=== PATIENT | female | born 1970 ===

== ENCOUNTER → 2020-08-02 13:46 | Outpatient (BNV) | payer OTHER, SELFPAY | PROVIDERS: PCP Internal Medicine; Visit Provider Internal Medicine Medical Oncology | DX: D80.1 Nonfamilial hypogammaglobulinemia (principal); Z86.711 Personal history of pulmonary embolism; Z79.01 Long term (current) use of anticoagulants; D50.9 Iron deficiency anemia, unspecified | CPT/HCPCS: 99212; 99213; 99214 ==

== ENCOUNTER 2020-08-05 08:59 | Outpatient (REF) | payer OTHER, SELFPAY | END 2020-08-05 09:00 | disposition home or self-care (01) | LOC: HO.MDS 08:59 | PROVIDERS: PCP Internal Medicine; Visit Provider Hospitalist | DX: D80.1 Nonfamilial hypogammaglobulinemia (principal) ==

== ENCOUNTER 2020-08-14 13:05 | Emergency (ER) | payer OTHER, SELFPAY ==
--- NOTE | 2020-08-14 15:29 | XR_ITS ---
EXAMINATION: XR CHEST CLINICAL INFORMATION: Cough COMPARISON: Multiple previous chest x-rays with the last chest x-ray dated 07/14/2020. Chest CTA of 06/14/2020. TECHNIQUE: Frontal view of the chest was obtained. FINDINGS: The cardiomediastinal silhouette is normal. No abnormal tracheal deviation. The lungs are symmetrically well expanded. No focal consolidation, changes of congestion or pleural effusions. No pneumothorax. Regional skeleton is intact. IMPRESSION: No acute pulmonary process.
[2020-08-14 15:54] VITALS: BP 134/71; PULSE 81; RESP 18; TEMP 36.8; O2SAT 100; BMI 37.3
[2020-08-14] MEDS: Albuterol Sulfate (0.083%) 2.5 MG/3 ML VIAL.NEB 5 MG INHALE (16:09)
[2020-08-14] MEDS: methylPREDNISolone Sod Succ/PF 125 MG/2 ML VIAL IVPUSH (16:10)
[2020-08-14 16:20] LABS: MANUAL DIFF FLAG NO
[2020-08-14 16:27] LABS: Basophils Percent Auto 0.5 % (0-2); Eosinophils Absolute Auto 0.2 X10*3/uL (0.0-0.4); Eosinophils Percent Auto 2.8 % (0-4); Hematocrit 37.2 % (37-47); Hemoglobin 10.9 g/dl (12.0-16.0); Imm Gran Abs Auto 0.13 X10*3/uL (0.00-0.03); Imm Gran Pct Auto 1.5 % (0.0-0.4); Lymphocytes Absolute Auto 2.8 X10*3/uL (1.2-4.9); Lymphocytes Percent Auto 32.9 % (20-40); Mean Corpuscular HGB Conc 29.3 g/dl (31.0-35.0); Mean Corpuscular Hemoglobin 24.7 pg (27.0-33.0); Mean Corpuscular Volume 84.4 fL (80-98); Mean Platelet Volume 8.9 fL (9.4-12.3); Monocytes Absolute Auto 0.6 X10*3/uL (0.1-1.2); Monocytes Percent Auto 7.4 % (2-11); Neutrophils Absolute Auto 4.7 X10*3/uL (2.0-8.3); Neutrophils Percent Auto 54.9 % (45-73); Platelet Count 421 X10*3/uL (160-400); Red Blood Count 4.41 X10*6/uL (4.20-5.50); Red Cell Distribution Width 15.9 % (11.0-16.0); White Blood Count 8.5 X10*3/uL (4.8-10.8)
[2020-08-14 16:36] LABS: Partial Thromboplastin Time 34.5 SEC (24.1-38.0)
[2020-08-14 16:37] LABS: D Dimer 351 NG/ML
--- NOTE | 2020-08-14 17:09 | CT_ITS ---
EXAMINATION: CT ANGIOGRAM OF THE CHEST WITH CONTRAST (CT PULMONARY ANGIOGRAM FOR PE) CLINICAL INFORMATION: Reason for Exam SOB/ Elevated D-dimer COMPARISON: Chest CT from 08/14/2020 TECHNIQUE: Prior to contrast administration, noncontrast localization images were obtained. Subsequently, multidetector volumetric imaging was performed from the thoracic inlet to below the diaphragms following the administration of 68 mL Omnipaque 350 intravenous contrast. No contrast reaction reported. Sagittal, coronal, and MIP oblique sagittal reformatted images were obtained on the CT workstation, uploaded to PACS, and reviewed. This CT examination was performed using dose optimization techniques as appropriate, variously including the following: *Automated exposure control *Adjustment of mA and/or kV according to patient size (this includes techniques or standardized protocols for targeted exams where dose is matched to indication/reason for exam; i.e. extremities or head) *Use of iterative reconstruction technique DLP: Total exam dose-length product 417 mGy-cm FINDINGS: LUNGS AND PLEURA: Trachea and central airways are widely patent and normal in caliber. Small, 0.3 cm nodule in the medial right lower lobe is unchanged (image 225, series 8). There is a 0.2 cm calcified pleural-based granuloma of the anterior right upper lobe. No interval development of a suspicious lung nodule, mass, consolidation or pleural effusion. No interstitial disease. QUALITY OF STUDY/CONTRAST BOLUS: Satisfactory. CARDIOVASCULAR: Pulmonary arteries are normal in size. There are nonocclusive embolic filling defects within branches to the anterior and apical segments of the right upper lobe. Peripheral vessels are difficult to evaluate due to mild respiratory motion of images. The heart size is normal. No inward bowing of the interventricular septum. No pericardial effusion. Thoracic aorta is normal; no aneurysm or dissection. MEDIASTINUM/LOWER NECK: Normal. The esophagus has normal wall thickness. The visualized portion of the thyroid gland is normal. No mediastinal mass. LYMPHATICS: No pathologic sized lymph nodes. No axillary or internal mammary lymphadenopathy. Old calcified right hilar and paratracheal lymph nodes. UPPER ABDOMEN: No contrast reflux into the inferior vena cava. 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 There appears to be hepatomegaly and diffuse hepatic steatosis. OSSEOUS STRUCTURES: No acute or suspicious osseous abnormality. IMPRESSION: * There are acute, nonocclusive emboli in the right upper lobe. No evidence of right heart strain. * No acute findings within the lung parenchyma. * Old granulomatous disease. The critical test result was discussed with Jameel Shultz at 6:42 pm on 08/14/2020 and it was ascertained that the content and the importance of the findings was understood at the time of the direct communication.
[2020-08-14 17:14] LABS: B Type Natriuretic Peptide 12 pg/mL (<100); Troponin-I High Sensitivity < 3.5 ng/L (<3.5-17.0)
[2020-08-14] MEDS: guaiFENesin 200 MG/10 ML 10 ML LIQUID PO (18:17)
[2020-08-14] MEDS: ondansetron HCL 4 MG/2 ML VIAL IVPUSH (18:17)
[2020-08-14] MEDS: iohexoL 350 MG/ML 100 ML INFUS..BTL IV (18:24)
--- NOTE | 2020-08-14 18:39 | ED.SOB ---
HPI - SOB/Dyspnea General Chief Complaint: Dyspnea Stated Complaint: asthma Time Seen by Provider: 08/14/20 15:29 Source: patient Mode of arrival: ambulatory Limitations: no limitations History of Present Illness HPI Narrative: this is a 50-year-old female with past medical history that is significant for diabetes, asthma, migraine, obesity status post bariatric surgery, TIA, hypothyroidism, PE presenting today with complaint of States she has history of recurrent asthma/ bronchitis has been having some shortness of breath and chest discomfort for the past couple days with cough. Symptoms usually triggered by weather and is currently on prednisone has been using inhaler without much help. No lower extremity swelling or pain. Related Data Home Medications Medication Instructions Recorded Confirmed cyanocobalamin (vitamin B-12) 2,500 mcg SUBLINGUAL DAILY 08/02/20 08/15/20 [Vitamin B-12] escitalopram oxalate 10 mg PO DAILY 08/02/20 08/15/20 lorazepam 0.5 mg PO DAILY PRN 08/02/20 08/15/20 montelukast 10 mg PO DAILY 08/02/20 08/15/20 prednisone 10 mg PO BID 08/02/20 08/15/20 quetiapine [Seroquel] 300 mg PO DAILY 08/02/20 08/15/20 sucralfate 1 g PO QID 08/02/20 08/15/20 zolpidem [Ambien] 10 mg PO BEDTIME PRN 08/02/20 08/15/20 albuterol sulfate 2.5 mg INHALATION TID 08/15/20 08/15/20 cholecalciferol (vitamin D3) 25 mcg PO DAILY 08/15/20 08/15/20 [Vitamin D3] cyclobenzaprine 5 mg PO TID 08/15/20 08/15/20 diclofenac sodium 75 mg PO BID 08/15/20 08/15/20 dicyclomine 10 mg PO QID PRN 08/15/20 08/15/20 hydrocodone-chlorpheniramine 5 ml PO Q12H 08/15/20 08/15/20 hydroxyzine HCl 25 mg PO QID 08/15/20 08/15/20 Previous Rx's Medication Instructions Recorded Eliquis 10 mg PO BID 7 Days #28 tab 08/14/20 benzonatate [Tessalon Perles] 100 mg PO TID PRN #20 cap 08/16/20 Allergies Allergy/AdvReac Type Severity Reaction Status Date / Time No Known Allergies Allergy Verified 08/16/20 03:50 Review of Systems Review of Systems: Constitutional: No Weight loss, No Fever, No Chills, No Night Sweats, No Fatigue, No Malaise ENT/Mouth: No Hearing loss, No Ear Pain, No Nasal Congestion, No Sinus Pain, No Hoarseness, No sore throat, No Rhinorrhea, No Swallowing Difficulty Eyes: No Eye Pain, No Swelling, No Redness, No Foreign Body, No Discharge, No Vision Changes Cardiovascular: No Chest Pain, No SOB, No Dyspnea on Exertion, No Orthopnea, No Edema, No Palpitations Respiratory: + Cough, No Sputum, + Wheezing, No Smoke Exposure, + Dyspnea with cough fits Gastrointestinal: No Nausea, No Vomiting, No Diarrhea, No Constipation, No abdominal Pain, No Hematochezia, No Melena Genitourinary: no irregular bleeding, No Dysuria, No Urinary Frequency, No Hematuria, No Urinary Incontinence, No Urgency, No Flank Pain, No Urinary Flow Changes, No Hesitancy Musculoskeletal: No joint pain, No Myalgias, No Joint Swelling Skin: No Skin Lesions, No rash Neuro: No Weakness, No Numbness, No Paresthesias, No Loss of Consciousness, No Dizziness, No Headache Psych: No Anxiety/Panic, No Depression, No SI/HI/AH/VH, No Social Issues Heme/Lymph: No Bruising, No Bleeding,No Lymphadenopathy Endocrine: No Polyuria, No Polydipsia, No Temperature Intolerance Yes all other systems are reviewed and are negative FORMERLY [facility], [facility] Past Medical History Attestation statement: The following information was validated with the patient. Medical History (Updated 08/15/20 @ 21:26 by Jameel Shultz NP) Arthritis Asthma Depression Diet-controlled diabetes mellitus Fibromyalgia Hypogammaglobulinemia Hypothyroidism Migraines Pulmonary embolism Sleep apnea TIA (transient ischemic attack) Surgical History (Updated 08/15/20 @ 19:01 by MEGA Guillory) History of bariatric surgery History of cholecystectomy S/P total abdominal hysterectomy Social History Social History Alcohol intake: never Smoking Status: Never smoker Smoked in Last 30 Days: No Use of substances other than those prescribed or required for medical reasons: No Advance Directives: No Advance Directives Information Provided: No service: No Current occupational status: disabled Physical Exam Vital Signs: Vital Signs: Vital Signs Temp Pulse Resp BP Pulse Ox 08/14/20 18:45 98.5 F 94 19 116/88 97 08/14/20 15:54 98.2 F 81 18 134/71 100 Body Mass Index 37.3 Reviewed Const: General: cooperative and healthy appearing; No acute distress or intoxicated appearing Nutritional Appearance: average body habitus Orientation/consciousness: patient oriented x3 HENMT: Head: Yes normal to inspection Ears: hearing grossly normal bilaterally Eyes: General: appearance normal, both eyes and all related structures Visual Yap: normal visual yap by confrontation Neck: Neck: Yes normal visual inspection and No tender Thyroid: Thyroid normal Chest: Chest palpation & inspection: normal inspection of the chest Resp: Auscultation: wheezes ( Bilateral diffuse forced expiratory) Cardio: Jugular venous distension: no JVD Rhythm: regular rhythm GI: Inspection: Yes normal to inspection Percussion: Yes normal to percussion Auscultation: normal bowel sounds : General: Yes no CVA tenderness Back/Spine/Pelvis: Back: no CVA tenderness Skin: General skin exam: no rashes or lesions noted Neuro: General: patient oriented x3 Extrem: General: Yes normal to inspection Course Reevaluation(s) Reevaluation #1: 1840 call from [facility] this time: nonocclusive right upper lobe PE MDM - SOB/Dyspnea MDM Narrative Medical decision making narrative: resting comfortably no acute distress. Feels better after neb Labs overall reassuring. Hemodynamically stable. Out of bed ambulatory status with gait without shortness of breath. Pulse ox 98%. CT of the chest shows there are acute nonocclusive emboli in the right upper lobe no evidence of heart strain. No acute findings within the lung parenchyma. pulmonary embolism severity index score Class I, Very Low Risk: 0-1.6% 30-day mortality in this group- she was on Coumadin the past. Several years ago. Case discussed with hospitalist for recommendations/ potential admission. Given the index score very low recommendation for discharge does not meet admission criteria based on evidence. case discussed with attending doctor and/or agreeable with Ry. Will start her today on this and have close follow-up clear return follow-up instructions provided. Stable for discharge. Differential Diagnosis Differential diagnosis: Likely acute exacerbation of chronic obstructive airways disease, pneumonia, asthma with exacerbation and pulmonary embolism; Unlikely congestive heart failure, pleural effusion, sleep apnea and anemia Medical Records Attestation: I reviewed the patient's medical records. Lab Data Attestation: I reviewed the patient's lab results. Result diagrams: 08/14/20 16:08 08/14/20 17:28 Labs: Lab Results 08/14/20 08/14/20 08/14/20 Range/Units 16:08 16:08 16:08 WBC 8.5 (4.8-10.8) X10*3/uL RBC 4.41 (4.20-5.50) X10*6/uL Hgb 10.9 L (12.0-16.0) g/dl Hct 37.2 (37-47) % MCV 84.4 (80-98) fL MCH 24.7 L (27.0-33.0) pg MCHC 29.3 L (31.0-35.0) g/dl RDW 15.9 (11.0-16.0) % Plt Count 421 H (160-400) X10*3/uL MPV 8.9 L (9.4-12.3) fL Immature Gran % (Auto) 1.5 H (0.0-0.4) % Neut % (Auto) 54.9 (45-73) % Lymph % (Auto) 32.9 (20-40) % [place] % (Auto) 7.4 (2-11) % Eos % (Auto) 2.8 (0-4) % Baso % (Auto) 0.5 (0-2) % Lymph # (Auto) 2.8 (1.2-4.9) X10*3/uL [place] # (Auto) 0.6 (0.1-1.2) X10*3/uL Eos # (Auto) 0.2 (0.0-0.4) X10*3/uL Baso # (Auto) 0.0 (0.0-0.2) X10*3/uL Abs Immat Gran (auto) 0.13 H (0.00-0.03) X10*3/uL Absolute Neuts (auto) 4.7 (2.0-8.3) X10*3/uL Absolute Nucleated RBC 0.000 (0.0-0.012) X10*3/uL Nucleated RBC % (auto) 0.0 (0.0-0.2) /100WBC PT 11.0 (10.8-13.0) SEC INR 0.9 (0.9-1.1) APTT 34.5 (24.1-38.0) SEC D-Dimer 351 NG/ML Sodium Cancelled Potassium Cancelled Chloride Cancelled Carbon Dioxide Cancelled Anion Gap Cancelled BUN Cancelled Creatinine Cancelled Estim Creat Clear Calc Cancelled Estimated GFR Cancelled Random Glucose Cancelled Calcium Cancelled Total Bilirubin Cancelled Direct Bilirubin Cancelled AST Cancelled ALT Cancelled Alkaline Phosphatase Cancelled Troponin I High Sens (<3.5-17.0) ng/L B-Natriuretic Peptide (<100) pg/mL Total Protein Cancelled Albumin Cancelled Coronavirus (PCR) (Negative) COVID-19 PCR 08/14/20 08/14/20 08/14/20 Range/Units 16:08 17:05 17:28 WBC (4.8-10.8) X10*3/uL RBC (4.20-5.50) X10*6/uL Hgb (12.0-16.0) g/dl Hct (37-47) % MCV (80-98) fL MCH (27.0-33.0) pg MCHC (31.0-35.0) g/dl RDW (11.0-16.0) % Plt Count (160-400) X10*3/uL MPV (9.4-12.3) fL Immature Gran % (Auto) (0.0-0.4) % Neut % (Auto) (45-73) % Lymph % (Auto) (20-40) % [place] % (Auto) (2-11) % Eos % (Auto) (0-4) % Baso % (Auto) (0-2) % Lymph # (Auto) (1.2-4.9) X10*3/uL [place] # (Auto) (0.1-1.2) X10*3/uL Eos # (Auto) (0.0-0.4) X10*3/uL Baso # (Auto) (0.0-0.2) X10*3/uL Abs Immat Gran (auto) (0.00-0.03) X10*3/uL Absolute Neuts (auto) (2.0-8.3) X10*3/uL Absolute Nucleated RBC (0.0-0.012) X10*3/uL Nucleated RBC % (auto) (0.0-0.2) /100WBC PT (10.8-13.0) SEC INR (0.9-1.1) APTT (24.1-38.0) SEC D-Dimer NG/ML Sodium 138 Potassium 4.4 Chloride 103 Carbon Dioxide 26 Anion Gap 13 BUN 21 H Creatinine 1.28 Estim Creat Clear Calc 48.8 Estimated GFR 44 Random Glucose 118 H Calcium 8.9 Total Bilirubin < 0.2 Direct Bilirubin AST 15 ALT 13 Alkaline Phosphatase 67 Troponin I High Sens < 3.5 (<3.5-17.0) ng/L B-Natriuretic Peptide 12 (<100) pg/mL Total Protein 6.2 L Albumin 3.5 Coronavirus (PCR) (Negative) COVID-19 PCR Cancelled 08/14/20 08/14/20 Range/Units 17:28 17:33 WBC (4.8-10.8) X10*3/uL RBC (4.20-5.50) X10*6/uL Hgb (12.0-16.0) g/dl Hct (37-47) % MCV (80-98) fL MCH (27.0-33.0) pg MCHC (31.0-35.0) g/dl RDW (11.0-16.0) % Plt Count (160-400) X10*3/uL MPV (9.4-12.3) fL Immature Gran % (Auto) (0.0-0.4) % Neut % (Auto) (45-73) % Lymph % (Auto) (20-40) % [place] % (Auto) (2-11) % Eos % (Auto) (0-4) % Baso % (Auto) (0-2) % Lymph # (Auto) (1.2-4.9) X10*3/uL [place] # (Auto) (0.1-1.2) X10*3/uL Eos # (Auto) (0.0-0.4) X10*3/uL Baso # (Auto) (0.0-0.2) X10*3/uL Abs Immat Gran (auto) (0.00-0.03) X10*3/uL Absolute Neuts (auto) (2.0-8.3) X10*3/uL Absolute Nucleated RBC (0.0-0.012) X10*3/uL Nucleated RBC % (auto) (0.0-0.2) /100WBC PT (10.8-13.0) SEC INR (0.9-1.1) APTT (24.1-38.0) SEC D-Dimer NG/ML Sodium Potassium Chloride Carbon Dioxide Anion Gap BUN Creatinine Estim Creat Clear Calc Estimated GFR Random Glucose Calcium Total Bilirubin < 0.2 Direct Bilirubin < 0.2 AST 14 ALT 14 Alkaline Phosphatase 71 Troponin I High Sens (<3.5-17.0) ng/L B-Natriuretic Peptide (<100) pg/mL Total Protein 6.2 L Albumin 3.5 Coronavirus (PCR) NEGATIVE (Negative) COVID-[address] scan - chest: Radiologist's impression: [place] [address] CT Scan Report Signed Patient: Maye Dye#: [id number] : 1970Acct:[id number] Age/Sex: 50 / FADM Date: 08/14/20 Loc: .ED Attending Dr: Ordering Physician: Jameel Shultz NP Date of Service: 08/14/20 Procedure(s): CT angio chest PE protocol Accession Number(s): [id number] cc: Jameel Shultz NP~ EXAMINATION: CT ANGIOGRAM OF THE CHEST WITH CONTRAST (CT PULMONARY ANGIOGRAM FOR PE) CLINICAL INFORMATION: Reason for Exam SOB/ Elevated D-dimer COMPARISON: Chest CT from 08/14/2020 TECHNIQUE: Prior to contrast administration, noncontrast localization images were obtained. Subsequently, multidetector volumetric imaging was performed from the thoracic inlet to below the diaphragms following the administration of 68 mL Omnipaque 350 intravenous contrast. No contrast reaction reported. Sagittal, coronal, and MIP oblique sagittal reformatted images were obtained on the CT workstation, uploaded to PACS, and reviewed. This CT examination was performed using dose optimization techniques as appropriate, variously including the following: *Automated exposure control *Adjustment of mA and/or kV according to patient size (this includes techniques or standardized protocols for targeted exams where dose is matched to indication/reason for exam; i.e. extremities or head) *Use of iterative reconstruction technique DLP: Total exam dose-length product 417 mGy-cm FINDINGS: LUNGS AND PLEURA: Trachea and central airways are widely patent and normal in caliber. Small, 0.3 cm nodule in the medial right lower lobe is unchanged (image 225, series 8). There is a 0.2 cm calcified pleural-based granuloma of the anterior right upper lobe. No interval development of a suspicious lung nodule, mass, consolidation or pleural effusion. No interstitial disease. QUALITY OF STUDY/CONTRAST BOLUS: Satisfactory. CARDIOVASCULAR: Pulmonary arteries are normal in size. There are nonocclusive embolic filling defects within branches to the anterior and apical segments of the right upper lobe. Peripheral vessels are difficult to evaluate due to mild respiratory motion of images. The heart size is normal. No inward bowing of the interventricular septum. No pericardial effusion. Thoracic aorta is normal; no aneurysm or dissection. MEDIASTINUM/LOWER NECK: Normal. The esophagus has normal wall thickness. The visualized portion of the thyroid gland is normal. No mediastinal mass. LYMPHATICS: No pathologic sized lymph nodes. No axillary or internal mammary lymphadenopathy. Old calcified right hilar and paratracheal lymph nodes. UPPER ABDOMEN: No contrast reflux into the inferior vena cava. 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 There appears to be hepatomegaly and diffuse hepatic steatosis. OSSEOUS STRUCTURES: No acute or suspicious osseous abnormality. IMPRESSION: * There are acute, nonocclusive emboli in the right upper lobe. No evidence of right heart strain. * No acute findings within the lung parenchyma. * Old granulomatous disease. The critical test result was discussed with Jameel Shultz at 6:42 pm on 08/14/2020 and it was ascertained that the content and the importance of the findings was understood at the time of the direct communication. Dictated By:FRANCK SÁNCHEZ MD Signed By:<Electronically signed by FRANCK SÁNCHEZ MD in [place]>08/14/20 1178 DD/ 8204 TD/TT: Rn Palliative Care: PD Chest x-ray: Radiologist's impression: [address] [address] XRay Report Signed Patient: Maye Dye#: [id number] : 1970Acct:[id number] Age/Sex: 50 / FADM Date: 08/14/20 Loc: HO.ED Attending Dr: Ordering Physician: Jameel hSultz NP Date of Service: 08/14/20 Procedure(s): XR chest 1V Accession Number(s): [id number] cc: Jameel Shultz [employer]~ EXAMINATION: XR CHEST CLINICAL INFORMATION: Cough COMPARISON: Multiple previous chest x-rays with the last chest x-ray dated 07/14/2020. Chest CTA of 06/14/2020. TECHNIQUE: Frontal view of the chest was obtained. FINDINGS: The cardiomediastinal silhouette is normal. No abnormal tracheal deviation. The lungs are symmetrically well expanded. No focal consolidation, changes of congestion or pleural effusions. No pneumothorax. Regional skeleton is intact. IMPRESSION: No acute pulmonary process. Dictated By:CHASIDY BARTON MD Signed By:<Electronically signed by CHASIDY BARTON MD in OV>08/14/20 1547 DD/ 1529 TD/TT: Rn Palliative Care: AP Discharge Plan Discharge Clinical Impression: Pulmonary embolism, Bronchitis Patient Disposition: Home, Self-Care Instructions: Asthma (ED) Additional Instructions: follow-up with Dr. 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5 mg PO DAILY PRN (Reason: Anxiety) RF: 0 escitalopram oxalate 10 mg Tablet 10 mg PO DAILY RF: 0 diclofenac sodium 75 mg tablet,delayed release (DR/EC) 75 mg PO BID RF: 0 cyclobenzaprine 5 mg tablet 5 mg PO TID RF: 0 albuterol sulfate 2.5 mg /3 mL (0.083 %) solution for nebulization 2.5 mg inhalation TID RF: 0 hydroxyzine HCl 25 mg tablet 25 mg PO QID RF: 0 hydrocodone-chlorpheniramine 10-8 mg/5 mL suspension,extended rel 12 hr 5 ml PO Q12H RF: 0 dicyclomine 10 mg capsule 10 mg PO QID PRN (Reason: cramps) RF: 0 cholecalciferol (vitamin D3) [Vitamin D3] 25 mcg (1,000 unit) tablet 25 mcg PO DAILY RF: 0 benzonatate [Tessalon Perles] 100 mg capsule 100 mg PO TID PRN (Reason: cough) Qty: 20 RF: 0 Referrals: Claudia Villatoro MD [Primary Care Provider] - 2 days Interventions: ED Discharge Assessment Last Done: 08/14/20 21:25 Discharge Date/Time: 08/14/20 21:32
[2020-08-14 18:41] LABS: SARS COV2 PCR INHOUSE NEGATIVE (Negative)
[2020-08-14 18:45] VITALS: BP 116/88; PULSE 94; RESP 19; TEMP 36.9; O2SAT 97
[2020-08-14 18:56] LABS: Alanine Aminotransferase 13 U/L (0-31); Alanine Aminotransferase 14 U/L (0-31); Albumin Level 3.5 g/dL (3.5-5.0); Alkaline Phosphatase 67 U/L (39-117); Alkaline Phosphatase 71 U/L (39-117); Anion Gap 13 (12-20); Aspartate Amino Transferase 14 U/L (5-31); Aspartate Amino Transferase 15 U/L (5-31); Bilirubin Direct < 0.2 mg/dL (0.0-0.5); Bilirubin Total < 0.2 mg/dL (0.0-1.0); Blood Urea Nitrogen 21 mg/dL (9-16); Calcium 8.9 mg/dL (8.4-10.2); Carbon Dioxide 26 mmol/L (22-29); Chloride 103 mmol/L (96-108); Creatinine Clr Calc Pharmacy 48.8; Estimated Glomerular Filt Rate 44; Glucose Random 118 mg/dL (60-115); Potassium 4.4 mmol/l (3.3-5.1); Sodium 138 mmol/L (135-145); Total Protein 6.2 g/dL (6.5-8.0)
--- NOTE | 2020-08-14 19:24 | PC.NURSE ---
PT CONTINUES TO C/O PAIN, COUGH ONGOING, FEELS SOB, NO RELIEF WITH NEB TX. ANTICOAG TO BE GIVEN WITH ABX. PT A&OX3, SPEAKING IN CLEAR FULL SENTENCES. AWARE OF PLAN FOR ADMISSION AND CARE.
[2020-08-14 19:25] LABS: INTERNATIONAL NORM RATIO 0.9 (0.9-1.1)
[2020-08-14 20:10] VITALS: RESP 16
[2020-08-14] MEDS: Morphine Sulfate 4 MG/ML CARTRIDGE IVPUSH (20:10)
[2020-08-14] MEDS: Albuterol/Iprat 2.5/0.5MG 3 ML AMPUL.NEB INHALE (20:23)
[2020-08-14 20:57] VITALS: BP 124/73; PULSE 96; RESP 18; TEMP 37.1; O2SAT 95
--- NOTE | 2020-08-17 16:50 | ED_ITS ---
HPI - SOB/Dyspnea General Chief Complaint: Dyspnea Stated Complaint: asthma Time Seen by Provider: 08/14/20 15:29 Source: patient Mode of arrival: ambulatory Limitations: no limitations History of Present Illness HPI Narrative: Patient with asthma history along with other history as noted below who was recently seen by myself yesterday in the emergency room for asthma exacerbation subsequently diagnosed with nonocclusive pulmonary embolism without right-sided heart strain discharged home on Eliquis as she appeared very well was hemodynamically stable. She reports to me that she has not filled the prescription of Eliquis she saw her primary care doctor today given her continued symptoms of cough/wheezing and complained of shortness of breath she was told to come to emergency room for further evaluation and admission. States she has used total of 3 nebulizers prior to coming here. MD elicited complaint: shortness of breath Pertinent past history: asthma and PE Onset (ago): day(s) Context: anxiety Timing: constant Severity: moderate Exacerbating factors: nothing Relieving factors: nothing Associated symptoms: cough and wheezing Treatment prior to arrival: bronchodilator Related Data Home Medications Medication Instructions Recorded Confirmed cyanocobalamin (vitamin B-12) 2,500 mcg SUBLINGUAL DAILY 08/02/20 08/15/20 [Vitamin B-12] escitalopram oxalate 10 mg PO DAILY 08/02/20 08/15/20 lorazepam 0.5 mg PO DAILY PRN 08/02/20 08/15/20 montelukast 10 mg PO DAILY 08/02/20 08/15/20 prednisone 10 mg PO BID 08/02/20 08/15/20 quetiapine [Seroquel] 300 mg PO DAILY 08/02/20 08/15/20 sucralfate 1 g PO QID 08/02/20 08/15/20 zolpidem [Ambien] 10 mg PO BEDTIME PRN 08/02/20 08/15/20 albuterol sulfate 2.5 mg INHALATION TID 08/15/20 08/15/20 cholecalciferol (vitamin D3) 25 mcg PO DAILY 08/15/20 08/15/20 [Vitamin D3] cyclobenzaprine 5 mg PO TID 08/15/20 08/15/20 diclofenac sodium 75 mg PO BID 08/15/20 08/15/20 dicyclomine 10 mg PO QID PRN 08/15/20 08/15/20 hydrocodone-chlorpheniramine 5 ml PO Q12H 08/15/20 08/15/20 hydroxyzine HCl 25 mg PO QID 08/15/20 08/15/20 Previous Rx's Medication Instructions Recorded Eliquis 10 mg PO BID 7 Days #28 tab 08/14/20 benzonatate [Tessalon Perles] 100 mg PO TID PRN #20 cap 08/16/20 Allergies Allergy/AdvReac Type Severity Reaction Status Date / Time No Known Allergies Allergy Verified 08/16/20 03:50 Review of Systems Review of Systems: Constitutional: No Weight loss, No Fever, No Chills, No Night Sweats, No Fatigue, No Malaise ENT/Mouth: No Hearing loss, No Ear Pain, No Nasal Congestion, No Sinus Pain, No Hoarseness, No sore throat, No Rhinorrhea, No Swallowing Difficulty Eyes: No Eye Pain, No Swelling, No Redness, No Foreign Body, No Discharge, No Vision Changes Cardiovascular: No Chest Pain, + SOB, No Dyspnea on Exertion, No Orthopnea, No Edema, No Palpitations Respiratory: + Cough, No Sputum, + Wheezing, No Smoke Exposure, No Dyspnea Gastrointestinal: No Nausea, No Vomiting, No Diarrhea, No Constipation, No abdominal Pain, No Hematochezia, No Melena Genitourinary: no irregular bleeding, No Dysuria, No Urinary Frequency, No Hematuria, No Urinary Incontinence, No Urgency, No Flank Pain, No Urinary Flow Changes, No Hesitancy Musculoskeletal: No joint pain, No Myalgias, No Joint Swelling Skin: No Skin Lesions, No rash Neuro: No Weakness, No Numbness, No Paresthesias, No Loss of Consciousness, No Dizziness, No Headache Psych: No Anxiety/Panic, No Depression Heme/Lymph: No Bruising, No Bleeding,No Lymphadenopathy Endocrine: No Polyuria, No Polydipsia, No Temperature Intolerance Yes all ot her systems are reviewed and are negative PMFSH Past Medical History Attestation statement: The following information was validated with the patient. Medical History (Updated 08/15/20 @ 21:26 by Jameel Shultz NP) Arthritis Asthma Depression Diet-controlled diabetes mellitus Fibromyalgia Hypogammaglobulinemia Hypothyroidism Migraines Pulmonary embolism Sleep apnea TIA (transient ischemic attack) Surgical History (Updated 08/15/20 @ 19:01 by MEGA Guillory) History of bariatric surgery History of cholecystectomy S/P total abdominal hysterectomy Social History Social History Alcohol intake: never Smoking Status: Never smoker Smoked in Last 30 Days: No Use of substances other than those prescribed or required for medical reasons: No Advance Directives: No Advance Directives Information Provided: No service: No Current occupational status: disabled Physical Exam Vital Signs: Vital Signs: Body Mass Index 37.3 Reviewed Const: General: cooperative and healthy appearing; No acute distress or intoxicated appearing Nutritional Appearance: average body habitus Orientation/consciousness: patient oriented x3 HENMT: Head: Yes normal to inspection Ears: hearing grossly normal bilaterally Eyes: General: appearance normal, both eyes and all related structures Visual Yap: normal visual yap by confrontation Neck: Neck: Yes normal visual inspection and No tender Thyroid: Thyroid normal Chest: Chest palpation & inspection: normal inspection of the chest Resp: Effort & Inspection: normal respiratory effort Auscultation: wheezes ( Mild bibasilar forced expiratory) Cardio: Jugular venous distension: no JVD GI: Inspection: Yes normal to inspection Percussion: Yes normal to percussion Auscultation: normal bowel sounds : General: Yes no CVA tenderness Back/Spine/Pelvis: Back: no CVA tenderness Skin: General skin exam: no rashes or lesions noted Neuro: General: patient oriented x3 Extrem: General: Yes normal to inspection Course Consultations Consultation #1: Case discussed with hospitalist services, Maggie. Accepted care. Will come down to admit patient. MDM - SOB/Dyspnea MDM Narrative Medical decision making narrative: received total of 3 nebs prior to arrival according to the patient we will give additional neb he here p.r.n.. She is already on steroids. Will give her dose of Eliquis. Repeat labs, coving negative yesterday. Plan for admission. Differential Diagnosis Differential diagnosis: Likely acute exacerbation of chronic obstructive airways disease, asthma with exacerbation and pulmonary embolism; Unlikely congestive heart failure, pneumonia, pleural effusion, sleep apnea and anemia Medical Records Attestation: I reviewed the patient's medical records. Lab Data Attestation: I reviewed the patient's lab results. Result diagrams: 08/14/20 16:08 08/14/20 17:28 Labs: Lab Results 08/14/20 08/14/20 08/14/20 Range/Units 16:08 16:08 16:08 WBC 8.5 (4.8-10.8) X10*3/uL RBC 4.41 (4.20-5.50) X10*6/uL Hgb 10.9 L (12.0-16.0) g/dl Hct 37.2 (37-47) % MCV 84.4 (80-98) fL MCH 24.7 L (27.0-33.0) pg MCHC 29.3 L (31.0-35.0) g/dl RDW 15.9 (11.0-16.0) % Plt Count 421 H (160-400) X10*3/uL MPV 8.9 L (9.4-12.3) fL Immature Gran % (Auto) 1.5 H (0.0-0.4) % Neut % (Auto) 54.9 (45-73) % Lymph % (Auto) 32.9 (20-40) % Ocean % (Auto) 7.4 (2-11) % Eos % (Auto) 2.8 (0-4) % Baso % (Auto) 0.5 (0-2) % Lymph # (Auto) 2.8 (1.2-4.9) X10*3/uL Ocean # (Auto) 0.6 (0.1-1.2) X10*3/uL Eos # (Auto) 0.2 (0.0-0.4) X10*3/uL Baso # (Auto) 0.0 (0.0-0.2) X10*3/uL Abs Immat Gran (auto) 0.13 H (0.00-0.03) X10*3/uL Absolute Neuts (auto) 4.7 (2.0-8.3) X10*3/uL Absolute Nucleated RBC 0.000 (0.0-0.012) X10*3/uL Nucleated RBC % (auto) 0.0 (0.0-0.2) /100WBC PT 11.0 (10.8-13.0) SEC INR 0.9 (0.9-1.1) APTT 34.5 (24.1-38.0) SEC D-Dimer 351 NG/ML Sodium Cancelled Potassium Cancelled Chloride Cancelled Carbon Dioxide Cancelled Anion Gap Cancelled BUN Cancelled Creatinine Cancelled Estim Creat Clear Calc Cancelled Estimated GFR Cancelled Random Glucose Cancelled Calcium Cancelled Total Bilirubin Cancelled Direct Bilirubin Cancelled AST Cancelled ALT Cancelled Alkaline Phosphatase Cancelled Troponin I High Sens (<3.5-17.0) ng/L B-Natriuretic Peptide (<100) pg/mL Total Protein Cancelled Albumin Cancelled Coronavirus (PCR) (Negative) COVID-19 PCR 08/14/20 08/14/20 08/14/20 Range/Units 16:08 17:05 17:28 WBC (4.8-10.8) X10*3/uL RBC (4.20-5.50) X10*6/uL Hgb (12.0-16.0) g/dl Hct (37-47) % MCV (80-98) fL MCH (27.0-33.0) pg MCHC (31.0-35.0) g/dl RDW (11.0-16.0) % Plt Count (160-400) X10*3/uL MPV (9.4-12.3) fL Immature Gran % (Auto) (0.0-0.4) % Neut % (Auto) (45-73) % Lymph % (Auto) (20-40) % Ocean % (Auto) (2-11) % Eos % (Auto) (0-4) % Baso % (Auto) (0-2) % Lymph # (Auto) (1.2-4.9) X10*3/uL Ocean # (Auto) (0.1-1.2) X10*3/uL Eos # (Auto) (0.0-0.4) X10*3/uL Baso # (Auto) (0.0-0.2) X10*3/uL Abs Immat Gran (auto) (0.00-0.03) X10*3/uL Absolute Neuts (auto) (2.0-8.3) X10*3/uL Absolute Nucleated RBC (0.0-0.012) X10*3/uL Nucleated RBC % (auto) (0.0-0.2) /100WBC PT (10.8-13.0) SEC INR (0.9-1.1) APTT (24.1-38.0) SEC D-Dimer NG/ML Sodium 138 Potassium 4.4 Chloride 103 Carbon Dioxide 26 Anion Gap 13 BUN 21 H Creatinine 1.28 Estim Creat Clear Calc 48.8 Estimated GFR 44 Random Glucose 118 H Calcium 8.9 Total Bilirubin < 0.2 Direct Bilirubin AST 15 ALT 13 Alkaline Phosphatase 67 Troponin I High Sens < 3.5 (<3.5-17.0) ng/L B-Natriuretic Peptide 12 (<100) pg/mL Total Protein 6.2 L Albumin 3.5 Coronavirus (PCR) (Negative) COVID-19 PCR Cancelled 08/14/20 08/14/20 Range/Units 17:28 17:33 WBC (4.8-10.8) X10*3/uL RBC (4.20-5.50) X10*6/uL Hgb (12.0-16.0) g/dl Hct (37-47) % MCV (80-98) fL MCH (27.0-33.0) pg MCHC (31.0-35.0) g/dl RDW (11.0-16.0) % Plt Count (160-400) X10*3/uL MPV (9.4-12.3) fL Immature Gran % (Auto) (0.0-0.4) % Neut % (Auto) (45-73) % Lymph % (Auto) (20-40) % Ocean % (Auto) (2-11) % Eos % (Auto) (0-4) % Baso % (Auto) (0-2) % Lymph # (Auto) (1.2-4.9) X10*3/uL Ocean # (Auto) (0.1-1.2) X10*3/uL Eos # (Auto) (0.0-0.4) X10*3/uL Baso # (Auto) (0.0-0.2) X10*3/uL Abs Immat Gran (auto) (0.00-0.03) X10*3/uL Absolute Neuts (auto) (2.0-8.3) X10*3/uL Absolute Nucleated RBC (0.0-0.012) X10*3/uL Nucleated RBC % (auto) (0.0-0.2) /100WBC PT (10.8-13.0) SEC INR (0.9-1.1) APTT (24.1-38.0) SEC D-Dimer NG/ML Sodium Potassium Chloride Carbon Dioxide Anion Gap BUN Creatinine Estim Creat Clear Calc Estimated GFR Random Glucose Calcium Total Bilirubin < 0.2 Direct Bilirubin < 0.2 AST 14 ALT 14 Alkaline Phosphatase 71 Troponin I High Sens (<3.5-17.0) ng/L B-Natriuretic Peptide (<100) pg/mL Total Protein 6.2 L Albumin 3.5 Coronavirus (PCR) NEGATIVE (Negative) COVID-19 PCR Discharge Plan Discharge Clinical Impression: Pulmonary embolism, Bronchitis Patient Disposition: Home, Self-Care Instructions: Asthma (ED) Additional Instructions: follow-up with Dr. Rios your agricultural technical officer/oncologist Follow-up with primary care doctor Take medication prescribed Return if any concerns or worsening symptoms Thank you Prescriptions: New Eliquis 5 mg tablet 10 mg PO BID 7 Days Qty: 28 RF: 0 No Action prednisone 10 mg tablet 10 mg PO BID RF: 0 cyanocobalamin (vitamin B-12) [Vitamin B-12] 2,500 mcg tablet, sublingual 2,500 mcg sublingual DAILY RF: 0 quetiapine [Seroquel] 300 mg Tablet 300 mg PO DAILY RF: 0 montelukast 10 mg tablet 10 mg PO DAILY RF: 0 zolpidem [Ambien] 10 mg Tablet 10 mg PO BEDTIME PRN (Reason: Insomnia) RF: 0 sucralfate 1 gram Tablet 1 g PO QID RF: 0 lorazepam 0.5 mg Tablet 0.5 mg PO DAILY PRN (Reason: Anxiety) RF: 0 escitalopram oxalate 10 mg Tablet 10 mg PO DAILY RF: 0 diclofenac sodium 75 mg tablet,delayed release (DR/EC) 75 mg PO BID RF: 0 cyclobenzaprine 5 mg tablet 5 mg PO TID RF: 0 albuterol sulfate 2.5 mg /3 mL (0.083 %) solution for nebulization 2.5 mg inhalation TID RF: 0 hydroxyzine HCl 25 mg tablet 25 mg PO QID RF: 0 hydrocodone-chlorpheniramine 10-8 mg/5 mL suspension,extended rel 12 hr 5 ml PO Q12H RF: 0 dicyclomine 10 mg capsule 10 mg PO QID PRN (Reason: cramps) RF: 0 cholecalciferol (vitamin D3) [Vitamin D3] 25 mcg (1,000 unit) tablet 25 mcg PO DAILY RF: 0 benzonatate [Tessalon Perles] 100 mg capsule 100 mg PO TID PRN (Reason: cough) Qty: 20 RF: 0 Referrals: Claudia Villatoro MD [Primary Care Provider] - 2 days Interventions: ED Discharge Assessment Last Done: 08/14/20 21:25 Discharge Date/Time: 08/14/20 21:32
== END 2020-08-14 21:32 | disposition home or self-care (01) ==
PROVIDERS: Nurse Practitioner Primary Care; Emergency Provider Emergency Medicine; PCP Internal Medicine
DX: I26.99 Other pulmonary embolism without acute cor pulmonale (principal); J40 Bronchitis, not specified as acute or chronic; Z20.828 Contact with and (suspected) exposure to other viral communicable diseases; Z79.899 Other long term (current) drug therapy; Z79.01 Long term (current) use of anticoagulants
CPT/HCPCS: 36415; 71045; 71275; 80048; 80053; 80076; 82248; 83880; 84484; 85025; 85379; 85610; 85730; 87635; 96374; 96375; 96376; 99284; J2270; J2405; J2930

== ENCOUNTER 2020-08-15 15:10 | Observation (INO) | payer OTHER, SELFPAY ==
[2020-08-15 15:29] VITALS: BP 122/64; PULSE 91; RESP 24; TEMP 38; O2SAT 97; BMI 38.6
--- NOTE | 2020-08-15 15:45 | ECG_ITS ---
Test Reason : SOB Blood Pressure : / mmHG Vent. Rate : 090 BPM Atrial Rate : 090 BPM P-R Int : 124 ms QRS Dur : 082 ms QT Int : 384 ms P-R-T Axes : 039 006 003 degrees QTc Int : 469 ms Normal sinus rhythm RSR' or QR pattern in V1 suggests right ventricular conduction delay T-wave inversion in Anterior leads Abnormal ECG When compared with ECG of 17-may-2020 Heart rate has increased T wave inversion now evident in Anterior leads Referred By: Generic ED Physician Electronically Signed By:KIMBERLY NESBITT MD
[2020-08-15 16:00] VITALS: BP 108/61; PULSE 81; RESP 20; O2SAT 96
[2020-08-15 16:00] LABS: Basophils Percent Auto 0.1 % (0-2); Hemoglobin 9.8 g/dl (12.0-16.0); Imm Gran Abs Auto 0.41 X10*3/uL (0.00-0.03); Imm Gran Pct Auto 2.4 % (0.0-0.4); Lymphocytes Absolute Auto 0.7 X10*3/uL (1.2-4.9); Lymphocytes Percent Auto 4.1 % (20-40); MANUAL DIFF FLAG SCAN; Mean Corpuscular HGB Conc 30.6 g/dl (31.0-35.0); Mean Corpuscular Hemoglobin 25.3 pg (27.0-33.0); Mean Corpuscular Volume 82.7 fL (80-98); Mean Platelet Volume 8.5 fL (9.4-12.3); Monocytes Percent Auto 5.7 % (2-11); Neutrophils Absolute Auto 14.7 X10*3/uL (2.0-8.3); Neutrophils Percent Auto 87.7 % (45-73); Platelet Count 428 X10*3/uL (160-400); Red Blood Count 3.87 X10*6/uL (4.20-5.50); SCAN SMEAR FLAG 1; White Blood Count 16.8 X10*3/uL (4.8-10.8)
[2020-08-15 16:06] LABS: INTERNATIONAL NORM RATIO 0.9 (0.9-1.1); Prothrombin Time 10.8 SEC (10.8-13.0)
[2020-08-15 16:08] LABS: Partial Thromboplastin Time 29.8 SEC (24.1-38.0)
[2020-08-15 16:21] LABS: Anion Gap 14 (12-20); Blood Urea Nitrogen 26 mg/dL (9-16); Calcium 9.1 mg/dL (8.4-10.2); Carbon Dioxide 22 mmol/L (22-29); Chloride 105 mmol/L (96-108); Creatinine Clr Calc Pharmacy 48.8; Estimated Glomerular Filt Rate 45; Glucose Random 110 mg/dL (60-115); Potassium 5.4 mmol/l (3.3-5.1); Sodium 136 mmol/L (135-145)
[2020-08-15 16:28] LABS: Troponin-I High Sensitivity < 3.5 ng/L (<3.5-17.0)
[2020-08-15 16:32] LABS: SLIDE REVIEW VERIFIED
--- NOTE | 2020-08-15 16:36 | XR_ITS ---
EXAMINATION: XR CHEST CLINICAL INFORMATION: Shortness of breath COMPARISON: 08/14/2020 TECHNIQUE: Frontal view of the chest was obtained. FINDINGS: Cardiac leads overlie the chest. Slight elevation of the left hemidiaphragm. No consolidation, edema, or effusion. No pneumothorax. The cardiomediastinal silhouette is within normal limits. No osseous abnormality. IMPRESSION: No acute pulmonary finding.
[2020-08-15] MEDS: guaiFENesin DM 200/20/10 ML 10 ML SYRUP PO (17:00)
--- NOTE | 2020-08-15 17:39 | ED_ITS ---
HPI - SOB/Dyspnea General Chief Complaint: Dyspnea Stated Complaint: COUGH,SOB Time Seen by Provider: 08/15/20 16:34 Source: patient Mode of arrival: ambulatory Limitations: no limitations History of Present Illness HPI Narrative: 51-year-old female with history of asthma and history of remote PE in the past was on Coumadin home. 5/6 years ago reveals into yesterday with asthma exacerbation yesterday diagnosed with nonocclusive PE in the right lung without any evidence of heart strain and lobe pulmonary embolism very score discharged home on Eliquis did not take returns as she does not feel better and still having cough and wheezing. Seen by her primary care doctor who advised her to come to the emergency room. States she used her nebulizer 3 times prior to arrival. She is on prednisone. MD elicited complaint: shortness of breath, cough and asthma attack Pertinent past history: asthma Onset (ago): day(s) Context: recent illness Severity: moderate Related Data Home Medications Medication Instructions Recorded Confirmed cyanocobalamin (vitamin B-12) 2,500 mcg SUBLINGUAL DAILY 08/02/20 08/15/20 [Vitamin B-12] escitalopram oxalate 10 mg PO DAILY 08/02/20 08/15/20 lorazepam 0.5 mg PO DAILY PRN 08/02/20 08/15/20 montelukast 10 mg PO DAILY 08/02/20 08/15/20 prednisone 10 mg PO BID 08/02/20 08/15/20 quetiapine [Seroquel] 300 mg PO DAILY 08/02/20 08/15/20 sucralfate 1 g PO QID 08/02/20 08/15/20 zolpidem [Ambien] 10 mg PO BEDTIME PRN 08/02/20 08/15/20 albuterol sulfate 2.5 mg INHALATION TID 08/15/20 08/15/20 cholecalciferol (vitamin D3) 25 mcg PO DAILY 08/15/20 08/15/20 [Vitamin D3] cyclobenzaprine 5 mg PO TID 08/15/20 08/15/20 diclofenac sodium 75 mg PO BID 08/15/20 08/15/20 dicyclomine 10 mg PO QID PRN 08/15/20 08/15/20 hydrocodone-chlorpheniramine 5 ml PO Q12H 08/15/20 08/15/20 hydroxyzine HCl 25 mg PO QID 08/15/20 08/15/20 Previous Rx's Medication Instructions Recorded Eliquis 10 mg PO BID 7 Days #28 tab 08/14/20 benzonatate [Tessalon Perles] 100 mg PO TID PRN #20 cap 08/16/20 Allergies Allergy/AdvReac Type Severity Reaction Status Date / Time No Known Allergies Allergy Verified 08/16/20 03:50 Review of Systems Review of Systems: Constitutional: No Weight loss, No Fever, No Chills, No Night Sweats, No Fatigue, No Malaise ENT/Mouth: No Hearing loss, No Ear Pain, No Nasal Congestion, No Sinus Pain, No Hoarseness, No sore throat, No Rhinorrhea, No Swallowing Difficulty Eyes: No Eye Pain, No Swelling, No Redness, No Foreign Body, No Discharge, No Vision Changes Cardiovascular: + Chest Pain, No SOB, No Dyspnea on Exertion, No Orthopnea, No Edema, No Palpitations Respiratory: + Cough, No Sputum, + Wheezing, No Smoke Exposure Gastrointestinal: No Nausea, No Vomiting, No Diarrhea, No Constipation, No abdominal Pain, No Hematochezia, No Melena Genitourinary: no irregular bleeding, No Dysuria, No Urinary Frequency, No Hematuria, No Urinary Incontinence, No Urgency, No Flank Pain, No Urinary Flow Changes, No Hesitancy Musculoskeletal: No joint pain, No Myalgias, No Joint Swelling Skin: No Skin Lesions, No rash Neuro: No Weakness, No Numbness, No Paresthesias, No Loss of Consciousness, No Dizziness, No Headache Psych: No Social Issues Heme/Lymph: No Bruising, No Bleeding,No Lymphadenopathy Endocrine: No Polyuria, No Polydipsia, No Temperature Intolerance Yes all other systems are reviewed and are negative [facility] Past Medical History Attestation statement: The following information was validated with the patient. Medical History (Updated 08/15/20 @ 21:26 by Jameel Shultz NP) Arthritis Asthma Depression Diet-controlled diabetes mellitus Fibromyalgia Hypogammaglobulinemia Hypothyroidism Migraines Pulmonary embolism Sleep apnea TIA (transient ischemic attack) Surgical History (Updated 08/15/20 @ 19:01 by MEGA Guillory) History of bariatric surgery History of cholecystectomy S/P total abdominal hysterectomy Social History Social History Alcohol intake: never Smoking Status: Never smoker Smoked in Last 30 Days: No Use of substances other than those prescribed or required for medical reasons: No Advance Directives: No Advance Directives Information Provided: No service: No Current occupational status: disabled Physical Exam Vital Signs: Vital Signs: Vital Signs Temp Pulse Resp BP Pulse Ox 08/15/20 16:00 81 20 108/61 96 08/15/20 15:29 100.4 F 91 24 H 122/64 97 Body Mass Index 38.6 Reviewed Const: General: cooperative and healthy appearing; No acute distress or intoxicated appearing Nutritional Appearance: average body habitus Orientation/consciousness: patient oriented x3 HENMT: Head: Yes normal to inspection Ears: hearing grossly normal bilaterally Eyes: General: appearance normal, both eyes and all related structures Visual Yap: normal visual yap by confrontation Neck: Neck: Yes normal visual inspection and No tender Thyroid: Thyroid normal Chest: Chest palpation & inspection: normal inspection of the chest Resp: Effort & Inspection: normal respiratory effort Auscultation: wheezes ( Mild bibasilar forced expiratory) Cardio: Jugular venous distension: no JVD GI: Inspection: Yes normal to inspection Percussion: Yes normal to percussion Auscultation: normal bowel sounds : General: Yes no CVA tenderness Back/Spine/Pelvis: Back: no CVA tenderness Skin: General skin exam: no rashes or lesions noted Neuro: General: patient oriented x3 Extrem: General: Yes normal to inspection Course Consultations Consultation #1: case discussed with hospitalist charla Serrano who will come evaluate patient at bedside for admission. MDM - SOB/Dyspnea Differential Diagnosis Differential diagnosis: Likely acute exacerbation of chronic obstructive airways disease, asthma with exacerbation and pulmonary embolism; Unlikely congestive heart failure, pneumonia, pleural effusion, sleep apnea and anemia Medical Records Attestation: I reviewed the patient's medical records. Lab Data Attestation: I reviewed the patient's lab results. Result diagrams: 08/16/20 04:37 08/16/20 04:37 Labs: Lab Results 08/15/20 08/15/20 08/15/20 Range/Units 15:53 15:53 15:53 WBC 16.8 H (4.8-10.8) X10*3/uL RBC 3.87 L (4.20-5.50) X10*6/uL Hgb 9.8 L (12.0-16.0) g/dl Hct 32.0 L (37-47) % MCV 82.7 (80-98) fL MCH 25.3 L (27.0-33.0) pg MCHC 30.6 L (31.0-35.0) g/dl RDW 16.0 (11.0-16.0) % Plt Count 428 H (160-400) X10*3/uL MPV 8.5 L (9.4-12.3) fL Immature Gran % (Auto) 2.4 H (0.0-0.4) % Neut % (Auto) 87.7 H (45-73) % Lymph % (Auto) 4.1 L (20-40) % [place] % (Auto) 5.7 (2-11) % Eos % (Auto) 0.0 (0-4) % Baso % (Auto) 0.1 (0-2) % Lymph # (Auto) 0.7 L (1.2-4.9) X10*3/uL [place] # (Auto) 1.0 (0.1-1.2) X10*3/uL Eos # (Auto) 0.0 (0.0-0.4) X10*3/uL Baso # (Auto) 0.0 (0.0-0.2) X10*3/uL Abs Immat Gran (auto) 0.41 H (0.00-0.03) X10*3/uL Absolute Neuts (auto) 14.7 H (2.0-8.3) X10*3/uL Absolute Nucleated RBC 0.000 (0.0-0.012) X10*3/uL Nucleated RBC % (auto) 0.0 (0.0-0.2) /100WBC Smear Tech's Comments VERIFIED PT (10.8-13.0) SEC INR (0.9-1.1) APTT (24.1-38.0) SEC Sodium 136 (135-145) mmol/L Potassium 5.4 H D (3.3-5.1) mmol/l Chloride 105 (96-108) mmol/L Carbon Dioxide 22 (22-29) mmol/L Anion Gap 14 (12-20) BUN 26 H (9-16) mg/dL Creatinine 1.25 (0.5-1.4) mg/dL Estim Creat Clear Calc 48.8 Estimated GFR 45 Random Glucose 110 (60-115) mg/dL Calcium 9.1 (8.4-10.2) mg/dL Troponin I High Sens < 3.5 (<3.5-17.0) ng/L 08/15/20 Range/Units 15:53 WBC (4.8-10.8) X10*3/uL RBC (4.20-5.50) X10*6/uL Hgb (12.0-16.0) g/dl Hct (37-47) % MCV (80-98) fL MCH (27.0-33.0) pg MCHC (31.0-35.0) g/dl RDW (11.0-16.0) % Plt Count (160-400) X10*3/uL MPV (9.4-12.3) fL Immature Gran % (Auto) (0.0-0.4) % Neut % (Auto) (45-73) % Lymph % (Auto) (20-40) % [place] % (Auto) (2-11) % Eos % (Auto) (0-4) % Baso % (Auto) (0-2) % Lymph # (Auto) (1.2-4.9) X10*3/uL [place] # (Auto) (0.1-1.2) X10*3/uL Eos # (Auto) (0.0-0.4) X10*3/uL Baso # (Auto) (0.0-0.2) X10*3/uL Abs Immat Gran (auto) (0.00-0.03) X10*3/uL Absolute Neuts (auto) (2.0-8.3) X10*3/uL Absolute Nucleated RBC (0.0-0.012) X10*3/uL Nucleated RBC % (auto) (0.0-0.2) /100WBC Smear Tech's Comments PT 10.8 (10.8-13.0) SEC INR 0.9 (0.9-1.1) APTT 29.8 (24.1-38.0) SEC Sodium (135-145) mmol/L Potassium (3.3-5.1) mmol/l Chloride (96-108) mmol/L Carbon Dioxide (22-29) mmol/L Anion Gap (12-20) BUN (9-16) mg/dL Creatinine (0.5-1.4) mg/dL Estim Creat Clear Calc Estimated GFR Random Glucose (60-115) mg/dL Calcium (8.4-10.2) mg/dL Troponin I High Sens (<3.5-17.0) ng/L Discharge Plan Discharge Clinical Impression: Pulmonary embolism, Asthma Patient Disposition: Admitted As Inpatient Interventions: Admission Worksheet (ED) Last Done: 08/15/20 21:08 Discharge Date/Time: 08/15/20 21:10
[2020-08-15] MEDS: Apixaban 5 MG TABLET 10 MG PO ×2 (17:51→21:37)
[2020-08-15 18:00] VITALS: BP 102/40; PULSE 84; RESP 18; TEMP 36.8; O2SAT 98
[2020-08-15] MEDS: Albuterol/Iprat 2.5/0.5MG 3 ML AMPUL.NEB INHALE (18:07)
--- NOTE | 2020-08-15 18:52 | PM.EVENT ---
Event Note Event Note: addendum to H&P by midlevel. I saw and examined the patient and participated in the zamora portion of the E/M service. she comes in with sob and diagnosed with PE yesterday but has not takine anticoagulation. Exam: wheez. No hypoxia. covid is negative. She has exacerbation of asthma and new PE. Treat with Eliquis, bronchodilators and should be able to go home tomorrow. I agree with the history and exam and assessment and plan as documented by PA.
--- NOTE | 2020-08-15 18:53 | P.HPIM_ITS ---
History of Present Illness Date of Service: 08/15/20 <MEGA Guillory - Last Filed: 08/15/20 19:37> Chief Complaint: shortness of breath <MEGA Guillory Last Filed: 08/15/20 19:37> this is a 50-year-old female with history of asthma among others who presents to the emergency department with shortness of breath. She was evaluated in the emergency department yesterday and diagnosed with pulmonary embolism. She was saturating well on room air, had no evidence of heart strain, and low PESI score so the decision was made to discharge her home with anticoagulation with Eliquis. She followed up with her primary care physician today who sent her back to the emergency room. Patient reports 2 weeks of shortness of breath for which she has been taking prednisone for her asthma. She denies any associated fever chills. She denies recent sick contacts. She was tested for COVID-19 during her emergency room visit yesterday and was negative. She reports cough but is unable to produce any phlegm. Chest x-ray showed no evidence of pneumonia. She was afebrile with no leukocytosis. The decision was made to admit her overnight for observation due to asthma exacerbation and recent diagnosis of PE. She was receiving her 1st breathing treatment during my evaluation. <MEGA Guillory - Last Filed: 08/15/20 19:37> Review of Systems Review of Systems: Yes all other systems are reviewed and are negative <MEGA Guillory - Last Filed: 08/15/20 19:37> Constitutional: Constitutional: Denies chills and Denies fever(s) <MEGA Guillory Last Filed: 08/15/20 19:37> Cardiovascular: Cardiovascular: Reports dyspnea <MEGA Guillory Last Filed: 08/15/20 19:37> Respiratory: Respiratory: Reports dyspnea <MEGA Guillory Last Filed: 08/15/20 19:37> Gastrointestinal: Gastrointestinal: Denies diarrhea, Denies nausea and Denies vomiting <MEGA Guillory Last Filed: 08/15/20 19:37> [facility] Medical History: Medical History (Updated 08/15/20 @ 21:26 by Jameel Shultz NP) Arthritis Asthma Depression Diet-controlled diabetes mellitus Fibromyalgia Hypogammaglobulinemia Hypothyroidism Migraines Pulmonary embolism Sleep apnea TIA (transient ischemic attack) <MEGA Guillory - Last Filed: 08/15/20 19:37> Surgical History: Surgical History (Updated 08/15/20 @ 19:01 by MEGA Guillory) History of bariatric surgery History of cholecystectomy S/P total abdominal hysterectomy <MEGA Guillory - Last Filed: 08/15/20 19:37> Social History: Social History Alcohol intake: never Smoking Status: Never smoker Smoked in Last 30 Days: No Use of substances other than those prescribed or required for medical reasons: No Advance Directives: No Advance Directives Information Provided: No service: No Current occupational status: disabled <MEGA Guillory - Last Filed: 08/15/20 19:37> Meds Allergies/Adverse reactions: Allergies Allergy/AdvReac Type Severity Reaction Status Date / Time No Known Allergies Allergy Verified 08/16/20 03:50 <MEGA Guillory - Last Filed: 08/15/20 19:37> Home medications: Home Medications Medication Instructions Recorded Confirmed Type cyanocobalamin (vitamin B-12) 2,500 mcg SUBLINGUAL DAILY 08/02/20 08/15/20 History [Vitamin B-12] escitalopram oxalate 10 mg PO DAILY 08/02/20 08/15/20 History lorazepam 0.5 mg PO DAILY PRN 08/02/20 08/15/20 History montelukast 10 mg PO DAILY 08/02/20 08/15/20 History prednisone 10 mg PO BID 08/02/20 08/15/20 History quetiapine [Seroquel] 300 mg PO DAILY 08/02/20 08/15/20 History sucralfate 1 g PO QID 08/02/20 08/15/20 History zolpidem [Ambien] 10 mg PO BEDTIME PRN 08/02/20 08/15/20 History albuterol sulfate 2.5 mg INHALATION TID 08/15/20 08/15/20 History cholecalciferol (vitamin D3) 25 mcg PO DAILY 08/15/20 08/15/20 History [Vitamin D3] cyclobenzaprine 5 mg PO TID 08/15/20 08/15/20 History diclofenac sodium 75 mg PO BID 08/15/20 08/15/20 History dicyclomine 10 mg PO QID PRN 08/15/20 08/15/20 History hydrocodone-chlorpheniramine 5 ml PO Q12H 08/15/20 08/15/20 History hydroxyzine HCl 25 mg PO QID 08/15/20 08/15/20 History <MEGA Guillory - Last Filed: 08/15/20 19:37> Physical Exam Vital Signs and Narrative: Vital Signs: Last Vital Signs Temp 98.2 F 08/15/20 18:00 Pulse 84 08/15/20 18:00 Resp 18 08/15/20 18:00 BP 102/40 L 08/15/20 18:00 Pulse Ox 98 08/15/20 18:00 Body Mass Index 38.6 <MEGA Guillory - Last Filed: 08/15/20 19:37> Const: Nutritional Appearance: well nourished <MEGA Guillory - Last Filed: 08/15/20 19:37> Orientation/consciousness: patient oriented x3 <MEGA Guillory - Last Filed: 08/15/20 19:37> HENMT: Head: Yes normocephalic and Yes atraumatic <MEGA Guillory - Last Filed: 08/15/20 19:37> Eyes: Sclerae: sclerae normal <MEGA Guillory - Last Filed: 08/15/20 19:37> Chest: Chest palpation & inspection: normal inspection of the chest <MEGA Guillory - Last Filed: 08/15/20 19:37> Resp: Effort & Inspection: normal respiratory effort and Actively coughing <MEGA Guillory - Last Filed: 08/15/20 19:37> Auscultation: wheezes <MEGA Guillory Last Filed: 08/15/20 19:37> Cardio: Rate: regular rate <MEGA Guillory Last Filed: 08/15/20 19:37> Rhythm: regular rhythm <MEGA Guillory - Last Filed: 08/15/20 19:37> GI: Palpation (GI): Soft to palpation and nontender <MEGA Guillory - Last Filed: 08/15/20 19:37> Skin: General skin exam: no rashes or lesions noted <MEGA Guillory - Last Filed: 08/15/20 19:37> Neuro: General: patient oriented x3 <MEGA Guillory - Last Filed: 08/15/20 19:37> Cranial nerves: Yes CN's II-XII intact bilaterally and Yes Bilaterally intact EOM present <MEGA Guillory - Last Filed: 08/15/20 19:37> Extrem: General: Yes normal to inspection <MEGA Guillory - Last Filed: 08/15/20 19:37> Results Labs Labs: Laboratory Tests 08/15/20 08/15/20 08/15/20 15:53 15:53 15:53 WBC 16.8 H RBC 3.87 L Hgb 9.8 L Hct 32.0 L MCV 82.7 MCH 25.3 L MCHC 30.6 L RDW 16.0 Plt Count 428 H MPV 8.5 L Immature Gran % (Auto) 2.4 H Neut % (Auto) 87.7 H Lymph % (Auto) 4.1 L [place] % (Auto) 5.7 Eos % (Auto) 0.0 Baso % (Auto) 0.1 Lymph # (Auto) 0.7 L [place] # (Auto) 1.0 Eos # (Auto) 0.0 Baso # (Auto) 0.0 Abs Immat Gran (auto) 0.41 H Absolute Neuts (auto) 14.7 H Absolute Nucleated RBC 0.000 Nucleated RBC % (auto) 0.0 Smear Tech's Comments VERIFIED PT INR APTT Sodium 136 Potassium 5.4 H D Chloride 105 Carbon Dioxide 22 Anion Gap 14 BUN 26 H Creatinine 1.25 Estim Creat Clear Calc 48.8 Estimated GFR 45 Random Glucose 110 Calcium 9.1 Troponin I High Sens < 3.5 08/15/20 15:53 WBC RBC Hgb Hct MCV MCH MCHC RDW Plt Count MPV Immature Gran % (Auto) Neut % (Auto) Lymph % (Auto) [place] % (Auto) Eos % (Auto) Baso % (Auto) Lymph # (Auto) [place] # (Auto) Eos # (Auto) Baso # (Auto) Abs Immat Gran (auto) Absolute Neuts (auto) Absolute Nucleated RBC Nucleated RBC % (auto) Smear Tech's Comments PT 10.8 INR 0.9 APTT 29.8 Sodium Potassium Chloride Carbon Dioxide Anion Gap BUN Creatinine Estim Creat Clear Calc Estimated GFR Random Glucose Calcium Troponin I High Sens <MEGA Guillory - Last Filed: 08/15/20 19:37> Assessment and Plan (1) Pulmonary embolism: Qualifiers: Acute cor pulmonale presence: unspecified Chronicity: acute Pulmonary embolism type: unspecified Qualified Code(s): I26.99 - Other pulmonary embolism without acute cor pulmonale <MEGA Guillory - Last Filed: 08/15/20 19:37> Status: Acute <MEGA Guillory - Last Filed: 08/15/20 19:37> (2) Asthma: Status: Acute <MEGA Guillory - Last Filed: 08/15/20 19:37> this is a 50-year-old Faroese-speaking female recently diagnosed with PE who presents with shortness of breath found to have asthma exacerbation. PE diagnosed yesterday hemodynamically stable AC with eliquis asthma exacerbation not requiring supplemental o2 breathing treatments Solu-Medrol diabetes diet controlled SSI, POCs Mood Escitalopram, seroquel Chronic pain Continue flexiril hold diclofenac since starting AC DVT prophylaxis- this case was discussed with Dr. Jiménez <MEGA Guillory - Last Filed: 08/15/20 19:37>
[2020-08-15] MEDS: oxyCODONE HCl Immed Release 5 MG TABLET PO (19:34)
--- NOTE | 2020-08-15 20:29 | PC.NURSE ---
RECEIVED CALL FROM ESPANOLA. PATIENT IS CLEARED TO GO TO FLOOR.
[2020-08-15 21:20] VITALS: BP 140/84; PULSE 81; RESP 20; O2SAT 97
[2020-08-15] MEDS: LORazepam 0.5 MG TABLET PO (21:36)
[2020-08-15] MEDS: hydrOXYzine HCL 25 MG TABLET PO (21:36)
[2020-08-15] MEDS: Cyclobenzaprine HCl 5 MG TABLET PO (21:36)
[2020-08-15] MEDS: Acetaminophen 325 MG TABLET 650 MG PO (21:37)
[2020-08-15] MEDS: Sucralfate 1 GM TABLET PO (21:37)
[2020-08-15] MEDS: QUEtiapine Fumarate 300 MG TABLET PO (21:37)
[2020-08-15 21:46] LABS: Glucose, Whole Blood 112 mg/dL (60-115)
[2020-08-16] VITALS: BP 108/68; PULSE 80; RESP 18; TEMP 36.9; O2SAT 98
[2020-08-16] MEDS: Flu Vacc QS2020-21(6mos up)/PF 0.5 ML SYRINGE IM (00:29)
[2020-08-16] MEDS: 0.9 % Sodium Chloride Flush 3 ML SYRINGE IVFLUSH ×2 (00:31→07:49)
[2020-08-16 03:06] VITALS: BP 115/62; PULSE 71; RESP 17; TEMP 36.6; O2SAT 96
[2020-08-16] MEDS: oxyCODONE HCl Immed Release 5 MG TABLET PO ×2 (03:23→12:24)
[2020-08-16 05:40] LABS: Basophils Percent Auto 0.2 % (0-2); Hematocrit 31.9 % (37-47); Hemoglobin 9.7 g/dl (12.0-16.0); Imm Gran Abs Auto 0.27 X10*3/uL (0.00-0.03); Lymphocytes Absolute Auto 0.7 X10*3/uL (1.2-4.9); Lymphocytes Percent Auto 5.4 % (20-40); MANUAL DIFF FLAG SCAN; Mean Corpuscular HGB Conc 30.4 g/dl (31.0-35.0); Mean Corpuscular Hemoglobin 25.3 pg (27.0-33.0); Mean Corpuscular Volume 83.1 fL (80-98); Mean Platelet Volume 8.9 fL (9.4-12.3); Monocytes Absolute Auto 0.3 X10*3/uL (0.1-1.2); Monocytes Percent Auto 2.2 % (2-11); Neutrophils Absolute Auto 11.9 X10*3/uL (2.0-8.3); Neutrophils Percent Auto 90.2 % (45-73); Platelet Count 401 X10*3/uL (160-400); Red Blood Count 3.84 X10*6/uL (4.20-5.50); SCAN SMEAR FLAG 1; White Blood Count 13.2 X10*3/uL (4.8-10.8)
[2020-08-16 06:05] LABS: Anion Gap 13 (12-20); Blood Urea Nitrogen 25 mg/dL (9-16); Calcium 8.7 mg/dL (8.4-10.2); Carbon Dioxide 22 mmol/L (22-29); Chloride 105 mmol/L (96-108); Creatinine Clr Calc Pharmacy 54.5; Estimated Glomerular Filt Rate 51; Glucose Random 151 mg/dL (60-115); Potassium 5.1 mmol/l (3.3-5.1); Sodium 135 mmol/L (135-145)
[2020-08-16 06:11] LABS: SLIDE REVIEW VERIFIED
[2020-08-16 07:24] VITALS: BP 109/59; PULSE 78; RESP 18; TEMP 36.4; O2SAT 95
[2020-08-16 07:41] LABS: Glucose, Whole Blood 123 mg/dL (60-115)
[2020-08-16 08:00] VITALS: BP 109/59; PULSE 78; RESP 18; TEMP 36.4; O2SAT 95
[2020-08-16] MEDS: Montelukast Sodium 10 MG TABLET PO (09:15)
[2020-08-16] MEDS: Apixaban 5 MG TABLET 10 MG PO (09:16)
[2020-08-16] MEDS: hydrOXYzine HCL 25 MG TABLET PO ×2 (09:16→12:27)
--- NOTE | 2020-08-16 09:16 | MHC.CM.PN ---
Patient lives alone in a duplex. Patient's Friend/Neighbor is on the other side ; they are together all the time. Patient has a walker to assist with mobility and her goal is to return home. CM has initiated and will follow for dc planning.Patient received no home services [employer]. CM conducted initial CM Assessment over the phone with the assistance of a Third Grade Teacher.
[2020-08-16] MEDS: Escitalopram Oxalate 10 MG TABLET PO (09:17)
[2020-08-16] MEDS: Cyclobenzaprine HCl 5 MG TABLET PO ×2 (09:17→14:09)
[2020-08-16] MEDS: Sucralfate 1 GM TABLET PO ×2 (09:17→12:27)
[2020-08-16] MEDS: Acetaminophen 325 MG TABLET 650 MG PO (09:27)
[2020-08-16 11:08] VITALS: BP 119/65; PULSE 91; RESP 18; TEMP 36.9; O2SAT 95
[2020-08-16 11:19] LABS: Glucose, Whole Blood 166 mg/dL (60-115)
[2020-08-16] MEDS: Insulin Lispro 100 UNIT/ML 3 ML VIAL SUBCUT (12:26)
[2020-08-16 13:20] VITALS: BMI 38.6
--- NOTE | 2020-08-16 13:51 | MHC.CM.PN ---
Patient has been medically cleared for dc to home today, no services.
--- NOTE | 2020-08-16 14:22 | W.MHC.F2F ---
Service Date Service Date: 08/16/20 Reasons for Services MD overseeing care: Dr. Llanes Homebound: Leaving the home is medically contraindicated at this time without the asist of a device and/or another person due th the listed conditions above and below. Certification: Based on the above findings, I certify that this patient is confined to the home and needs intermittent longterm care, physical therapy and/or speech therapy, or continues to need occupational therapy. The patient is under my care, and I have initiated the establishment of the plan of care. The patient will be followed by a physician who will periodically review the plan of care. Patient is homebound due to pulmonary embolism with PE and asthma and therfore needs the assistance of another person
--- NOTE | 2020-08-27 13:42 | PM.DS ---
DS: Providers Provider Date of admission: 08/15/20 18:40 Date of discharge: 08/16/2020 Primary care physician: Claudia Villatoro MD DS: Diagnosis Discharge Diagnosis (1) Pulmonary embolism: Status: Acute (2) Asthma: Status: Acute DS: Summary Hospital Course Hospital Course: HPI: 50-year-old female with history of asthma among others who presents to the emergency department with shortness of breath. She was evaluated in the emergency department yesterday and diagnosed with pulmonary embolism. She was saturating well on room air, had no evidence of heart strain, and low PESI score so the decision was made to discharge her home with anticoagulation with Eliquis. She followed up with her primary care physician today who sent her back to the emergency room. Patient reports 2 weeks of shortness of breath for which she has been taking prednisone for her asthma. She denies any associated fever chills. She denies recent sick contacts. She was tested for COVID-19 during her emergency room visit yesterday and was negative. She reports cough but is unable to produce any phlegm. Chest x-ray showed no evidence of pneumonia. She was afebrile with no leukocytosis. The decision was made to admit her overnight for observation due to asthma exacerbation and recent diagnosis of PE. She was receiving her 1st breathing treatment during my evaluatio Hospital course: 1. Asthma exacerbation: treated with steroid, bronchodilators and improved. To continue bronchodilators, steroid. 2. PE--Patient had been treated with Eliquid the day prior, had no hypoxia and Eliquis was continued at the adjusted PE dose of 10 bid for 7 days then 5 bis. I called the pharmacy to ensure that the prescrtion was there. Time Spent with Patient Time attestation: Total time spent providing and/or coordinating discharge services: Quality: VTE VTE Discharge Instructions: Medical regimen compliance education Physical Exam Vital Signs: Vital Signs: Body Mass Index 38.6 Const: Nutritional Appearance: well nourished Orientation/consciousness: patient oriented x3 HENMT: Head: Yes normocephalic and Yes atraumatic Eyes: Sclerae: sclerae normal Chest: Chest palpation & inspection: normal inspection of the chest Resp: Effort & Inspection: normal respiratory effort and Actively coughing Auscultation: wheezes Cardio: Rate: regular rate Rhythm: regular rhythm GI: Palpation (GI): Soft to palpation and nontender Skin: General skin exam: no rashes or lesions noted Neuro: General: patient oriented x3 Cranial nerves: Yes CN's II-XII intact bilaterally and Yes Bilaterally intact EOM present Extrem: General: Yes normal to inspection Discharge Plan Discharge Patient Disposition: Home Health Service Referrals: Clauida Villatoro MD [Primary Care Provider] - 1 Week (Please call and schedule a follow up appointment with Dr. Villatoro.) Discharge Medications: New benzonatate [Tessalon Perles] 100 mg capsule 100 mg PO TID PRN (Reason: cough) Qty: 20 RF: 0 Continued Eliquis 5 mg tablet 10 mg PO BID 7 Days Qty: 28 RF: 0 prednisone 10 mg tablet 10 mg PO BID RF: 0 cyanocobalamin (vitamin B-12) [Vitamin B-12] 2,500 mcg tablet, sublingual 2,500 mcg sublingual DAILY RF: 0 quetiapine [Seroquel] 300 mg Tablet 300 mg PO DAILY RF: 0 montelukast 10 mg tablet 10 mg PO DAILY RF: 0 zolpidem [Ambien] 10 mg Tablet 10 mg PO BEDTIME PRN (Reason: Insomnia) RF: 0 lorazepam 0.5 mg Tablet 0.5 mg PO DAILY PRN (Reason: Anxiety) RF: 0 escitalopram oxalate 10 mg Tablet 10 mg PO DAILY RF: 0 diclofenac sodium 75 mg tablet,delayed release (DR/EC) 75 mg PO BID RF: 0 cyclobenzaprine 5 mg tablet 5 mg PO TID RF: 0 albuterol sulfate 2.5 mg /3 mL (0.083 %) solution for nebulization 2.5 mg inhalation TID RF: 0 hydroxyzine HCl 25 mg tablet 25 mg PO QID RF: 0 hydrocodone-chlorpheniramine 10-8 mg/5 mL suspension,extended rel 12 hr 5 ml PO Q12H RF: 0 dicyclomine 10 mg capsule 10 mg PO QID PRN (Reason: cramps) RF: 0 cholecalciferol (vitamin D3) [Vitamin D3] 25 mcg (1,000 unit) tablet 25 mcg PO DAILY RF: 0 No Action sucralfate 1 gram tablet 4 g PO .qd 30 Days Qty: 120 RF: 1 benzonatate [Tessalon Perles] 100 mg capsule 200 mg PO BID PRN (Reason: cough) 30 Days Qty: 60 RF: 3 Discharge Orders: Discharge Order (Routine); Ordered 08/16/20 Ordered By: Prosper Jiménez Diet: advance to your usual diet Activity on Discharge: As tolerated Discharge Date/Time: 08/16/20 15:12 Visit Report Forms: Patient Portal Discharge page Care Plan Goals: Treat asthma and pulmonary embolism Health Concerns: asthma and pulmonary embolism Plan of Treatment: Use inhalers, takes Eliquis as directed and call your Doctor for follow up appointment within a week
== END 2020-08-16 15:12 | disposition home health service (06) ==
LOC: HO.ED 17:39 → HO.IMC 21:08
PROVIDERS: Nurse Practitioner Primary Care; Physician Assistant Medical; Admitting Provider Internal Medicine; Emergency Provider Emergency Medicine; PCP Internal Medicine; Visit Provider Internal Medicine
DX: I26.99 Other pulmonary embolism without acute cor pulmonale (principal); J45.41 Moderate persistent asthma with (acute) exacerbation; R06.00 Dyspnea, unspecified; E11.9 Type 2 diabetes mellitus without complications; E03.9 Hypothyroidism, unspecified; F41.8 Other specified anxiety disorders; M79.7 Fibromyalgia; G47.30 Sleep apnea, unspecified; G45.9 Transient cerebral ischemic attack, unspecified; Z79.01 Long term (current) use of anticoagulants; Z79.52 Long term (current) use of systemic steroids; Z79.899 Other long term (current) drug therapy
CPT/HCPCS: 36415; 71045; 80048; 82947; 84484; 85025; 85610; 85730; 90471; 90686; 93005; 96374; 96375; 99219; 99285; J2920

== ENCOUNTER → 2020-08-19 | Outpatient (BNVA) | payer OTHER, SELFPAY | PROVIDERS: PCP Internal Medicine; Referring Provider Internal Medicine; Visit Provider Hospitalist | DX: I26.99 Other pulmonary embolism without acute cor pulmonale (principal); J45.909 Unspecified asthma, uncomplicated; R07.81 Pleurodynia; D80.1 Nonfamilial hypogammaglobulinemia | CPT/HCPCS: 99214 ==

== ENCOUNTER → 2020-08-29 10:12 | Outpatient (REF) | payer OTHER, SELFPAY ==
--- NOTE | 2020-08-29 10:14 | NM_ITS ---
EXAMINATION: PULMONARY PERFUSION STUDY CLINICAL INFORMATION: Chest pain, shortness of breath. Follow-up pulmonary embolism. COMPARISON: No previous lung scan is available for comparison. Radiographs of the chest dated 08/29/2020, the same date as this lung scan are available for comparison. CTA the chest dated 08/14/2020 is also available for comparison. TECHNIQUE: Following the intravenous injection of 4.0 mCi Tc-99m MAA, an 8-view perfusion study was performed using a gamma scintillation camera. FINDINGS: No segmental perfusion defects are present. There is homogeneous distribution of activity bilaterally. There are no focal anatomic appearing perfusion defects present. The CTA dated 08/14/2020 showed nonocclusive emboli in the right upper lobe. No corresponding perfusion defects are present on this radionuclide lung scan. NM/NM pul perfusion IMPRESSION: Normal radionuclide lung perfusion scan. There are no abnormalities corresponding to the emboli visualized on the recent chest CTA.
--- NOTE | 2020-08-29 11:38 | XR_ITS ---
EXAMINATION: XR CHEST CLINICAL INFORMATION: I26.99 - Other pulmonary embolism without acute cor pulmonale COMPARISON: Chest radiographs 08/15/2020, 08/14/2020 TECHNIQUE: 2 views of the chest were obtained. FINDINGS: Lungs are clear. There is no airspace consolidation or effusion. The heart is normal in size. The vascularity is normal. There is no focal oligemia. The hilar and mediastinal contours and bony structures are unremarkable. XR/XR chest 2V IMPRESSION: Unremarkable examination.
== END ==
LOC: HO.NUCMED 10:12
PROVIDERS: PCP Internal Medicine; Visit Provider Hospitalist
DX: I26.99 Other pulmonary embolism without acute cor pulmonale (principal)
CPT/HCPCS: 71046; 78580; A9540

== ENCOUNTER 2020-09-02 08:28 | Outpatient (REF) | payer OTHER, SELFPAY | END 2020-09-02 08:29 | disposition home or self-care (01) | LOC: HO.MDS 08:28 | PROVIDERS: PCP Internal Medicine; Visit Provider Hospitalist | DX: D80.1 Nonfamilial hypogammaglobulinemia (principal) | CPT/HCPCS: 96365; 96366 ==

== ENCOUNTER 2020-09-09 09:41 | Emergency (ER) | payer OTHER, SELFPAY ==
[2020-09-09 10:06] VITALS: BP 124/72; PULSE 85; RESP 17; TEMP 36.4; O2SAT 98; BMI 31.8
--- NOTE | 2020-09-09 10:13 | CT_ITS ---
EXAMINATION: KNEE X-RAY CLINICAL INFORMATION: Fall COMPARISON: None TECHNIQUE: 4 views of the left knee FINDINGS: Bone alignment is normal. No fracture or dislocation is seen. The joint spaces are normal. There is no joint effusion. CT/CT cervical spine wo con IMPRESSION: Unremarkable exam. EXAMINATION: Head CT without contrast CLINICAL INFORMATION: Fall. Head trauma. COMPARISON: November 2019 TECHNIQUE: Axial images through the brain without contrast. Sagittal and coronal reconstructions on the technologist workstation were performed. Patient dose 700 mg/cm. FINDINGS: There is no evidence of an extra-axial collection. There is no evidence of intra-axial or extra-axial hemorrhage. The ventricles and extra-axial CSF spaces are appropriate. Hua-white matter differentiation is normal. No mass, mass effect or infarct is seen. Review at bone windows is unremarkable. Is a small polyp or cyst in the inferior right maxillary sinus. Paranasal sinuses and mastoid air cells and middle ears are otherwise clear. IMPRESSION: No acute findings. EXAMINATION: Cervical spine CT without contrast CLINICAL INFORMATION: Fall COMPARISON: None. TECHNIQUE: Axial images through the cervical spine without contrast. Sagittal and coronal reconstructions on the technologist workstation were performed. Patient dose 6 7 0 mg/cm. FINDINGS: Bone alignment is normal. There is soft tissue ossification adjacent to the C7 and T1 spinous processes. This is probably related to old trauma. Clinical correlation is recommended. No definite acute fracture or dislocation is seen. There is degenerative cervical spondylosis at C5-C6 and C6-C7. There is slight disc space narrowing at C6-C7. There are degenerative changes at the C1 dens articulation. Prevertebral soft tissues are normal. There is high attenuation seen in the proximal esophagus, question representing something the patient has recently ingested. Visualized lung apices are clear. IMPRESSION: No definite acute fracture or dislocation seen. Soft tissue ossifications posterior to the C7 and T1 spinous processes probably related to old trauma. Clinical correlation recommended. Mild degenerative changes at C5-C6 and C6-C7.
--- NOTE | 2020-09-09 10:24 | ED_ITS ---
HPI - Fall General Chief Complaint: Fall Stated Complaint: fell,hit leg and head Time Seen by Provider: 09/09/20 10:13 Source: patient Mode of arrival: ambulatory History of Present Illness HPI Narrative: With a past medical history of arthritis, asthma, depression, diabetes, fibromyalgia, hypothyroid, migraines, sleep apnea, TIA, c/o headache, back pain, and left knee pain s/p mechanical trip and fall down 13 stairs [employer]IG[employer]ATING [employer]. Reports chronic LE pain which caused her to fall, denies symptoms prior to fall. Admits to hitting head, denies LOC, reports felt dizzy after fall. Takes Eliquis. Reports mild residual dizziness at present as described as feeling drunk and nausea. Denies vision change/loss, CP/SOB, abdominal pain, vomiting, urinary incontinence/retention, numbness/tingling MD complaint: fall Onset (ago): hour(s) Fall from: standing Related Data Home Medications Medication Instructions Recorded Confirmed cyanocobalamin (vitamin B-12) 2,500 mcg SUBLINGUAL DAILY 08/02/20 08/19/20 [Vitamin B-12] escitalopram oxalate 10 mg PO DAILY 08/02/20 08/19/20 lorazepam 0.5 mg PO DAILY PRN 08/02/20 08/19/20 montelukast 10 mg PO DAILY 08/02/20 08/19/20 prednisone 10 mg PO BID 08/02/20 08/19/20 quetiapine [Seroquel] 300 mg PO DAILY 08/02/20 08/19/20 zolpidem [Ambien] 10 mg PO BEDTIME PRN 08/02/20 08/19/20 albuterol sulfate 2.5 mg INHALATION TID 08/15/20 08/19/20 cholecalciferol (vitamin D3) 25 mcg PO DAILY 08/15/20 08/19/20 [Vitamin D3] cyclobenzaprine 5 mg PO TID 08/15/20 08/19/20 diclofenac sodium 75 mg PO BID 08/15/20 08/19/20 dicyclomine 10 mg PO QID PRN 08/15/20 08/19/20 hydrocodone-chlorpheniramine 5 ml PO Q12H 08/15/20 08/19/20 hydroxyzine HCl 25 mg PO QID 08/15/20 08/19/20 Previous Rx's Medication Instructions Recorded Eliquis 10 mg PO BID 7 Days #28 tab 08/14/20 benzonatate [Tessalon Perles] 100 mg PO TID PRN #20 cap 08/16/20 benzonatate 100 mg capsule 200 mg PO BID PRN 30 Days #60 cap 08/19/20 sucralfate 1 gram tablet 4 g PO .qd 30 Days #120 tab 08/23/20 acetaminophen-codeine 1 tab PO Q8H PRN 3 Days #9 tab 09/09/20 cyclobenzaprine 5 mg PO Q8H PRN 5 Days #14 tab 09/09/20 lidocaine [Lidoderm] 1 patch TOPICAL DAILY PRN #30 ea 09/09/20 MDD remove after 12 hours Allergies Allergy/AdvReac Type Severity Reaction Status Date / Time No Known Allergies Allergy Verified 08/19/20 15:28 Review of Systems Review of Systems: Constitutional: No Weight loss, No Fever, No Chills ENT/Mouth: No visual changes, +headache Cardiovascular: No Chest Pain, No SOB Respiratory: No Cough Gastrointestinal: + Nausea, No Vomiting, No Diarrhea, No Constipation, No Abdominal pain Genitourinary: No Urinary Incontinence or retention Musculoskeletal: +R knee pain, + Myalgias, +back pain Skin: No Skin Lesions, No rash Neuro: No Weakness, No Numbness, No Paresthesias Yes all other systems are reviewed and are negative Neurologic: Denies Sensory deficit (Neuro) [facility] Past Medical History Attestation statement: The following information was validated with the patient. Medical History (Updated 09/09/20 @ 12:29 by MEGA Lazcano) Arthritis Asthma Depression Diet-controlled diabetes mellitus Fibromyalgia Hypogammaglobulinemia Hypothyroidism Migraines Pleuritic chest pain Pulmonary embolism Sleep apnea TIA (transient ischemic attack) Surgical History (Updated 08/15/20 @ 19:01 by MEGA Guillory) History of bariatric surgery History of cholecystectomy S/P total abdominal hysterectomy Social History Social History Alcohol intake: never Smoking Status: Never smoker Advance Directives: Yes Advance Directives Information Provided: Yes Advance Directives on File: No service: No Current occupational status: disabled Physical Exam Vital Signs: Vital Signs: Last Vital Signs Temp 97.5 F 09/09/20 10:06 Pulse 85 09/09/20 10:06 Resp 17 09/09/20 10:06 BP 124/72 11/09/20 10:06 Pulse Ox 98 09/09/20 10:06 Body Mass Index 31.8 Const: General: cooperative and healthy appearing Orientation/consciousness: patient oriented x3 Limitations: no limitations HENMT: Head: Yes normal to inspection and Yes atraumatic Ears: hearing grossly normal bilaterally General nose exam: Normal external nose present Face and sinus: Yes normal facial exam Mouth: Normal oral and palatal mucosa present Throat: Yes posterior oropharynx normal and Yes uvula midline Eyes: General: appearance normal, both eyes and all related structures Periorbital: periorbital findings normal Pupils: Equal, round and reactive pupils present EOM: EOMs intact bilaterally Neck: Other: No midline cervical spinous tenderness. + bilateral paraspinal tenderness Neck: Yes normal visual inspection, Yes full ROM and Yes no meningeal signs Chest: Chest palpation & inspection: normal inspection of the chest Resp: Effort & Inspection: normal respiratory effort Cardio: Rate: regular rate GI: Inspection: Yes normal to inspection Palpation (GI): Soft to palpation, nontender, no guarding and not rigid Back/Spine/Pelvis: Other: No midline thoracic/lumbar spinous tenderness. + diffuse/nonlocalized paraspinal & bilateral lumbar MSK ttp Skin: Rashes: no rashes Wounds: no wounds Neuro: Other: No saddle anesthesia. Ambulating with limping gait with cane due to knee pain General: patient oriented x3, tone normal, moves all extremities, no meningeal signs, no focal motor deficits and CN's II-XI intact bilaterally Cranial nerves: Yes Equal, round and reactive pupils present Gait exam (Neuro): Assisted gait required Gait assisted method: walking stick (baseline) Sensory Exam: No Sensory deficit (Neuro) Extrem: Other: + left knee with mild ecchymosis, no swelling, + TTP, FROM/NV inatct Course Course Course Narrative: --C-spine CT without definite acute fracture. Soft tissue ossifications to C7 and T1 probably related to old trauma --head CT without acute findings Knee x-ray unremarkable MDM - Fall MDM Narrative Medical decision making narrative: On exam VSS, NAD/well-appearing, no midline spinous tenderness, diffuse MSK tenderness and left knee ttp. No red flag symptoms or focal neuro deficits. Concern for ICH/fracture vs MSK pain/ligamentous/tendon injury. Low concern for SAH Plan: Head/C-spine CT, Knee XR Discharge Plan Discharge Clinical Impression: Acute knee pain, Back pain, Acute neck pain Patient Disposition: Home, Self-Care Instructions: Musculoskeletal Pain (ED) Additional Instructions: Your imaging studies did not show any new findings Your pain is likely musculoskeletal Flexeril is a muscle relaxer, take at night as it makes you drowsy, do not drive, drink alcohol, or operate machinery while taking it Tylenol with codeine is opiate pain medication, only take when pain is severe for the next 3 days Lidoderm patches are numbing patches, apply to painful area In addition take Tylenol at home, however do not exceed 4 g of Tylenol 1 day If symptoms persist or worsen, pain becomes unbearable, you developed urinary retention or incontinence, or weakness return to the ED Sherry estudios de im?genes no mostraron helene?n hallazgo nuevo Es probable que marcial dolor sea musculoesquel?krystal Flexeril es un relajante muscular, t?ralph por la noche ya que le produce somnolencia, no conduzca, no nadine alcohol ni utilice maquinaria mientras lo odette. Tylenol con code?na es un analg?sico opi?project control officer, solo t?ralph cuando el dolor sea intenso lata los pr?ximos 3 d?as Los parches de Lidoderm son parches adormecedores, se aplican al ?evaristo dolorida Adem?s, tome Tylenol en casa, sin embargo, no exceda los 4 g de Tylenol 1 d?a. Si los s?ntomas persisten o empeoran, el dolor se vuelve insoportable, desarr oll? retenci?n urinaria o incontinencia o debilidad, regrese al servicio de urgencias Prescriptions: New lidocaine [Lidoderm] 5 % adhesive patch,medicated 1 patch topical DAILY MDD remove after 12 hours PRN (Reason: pain) Qty: 30 RF: 0 cyclobenzaprine 5 mg tablet 5 mg PO Q8H PRN (Reason: pain (scale score 7-10)) 5 Days Qty: 14 RF: 0 acetaminophen-codeine 300-15 mg tablet 1 tab PO Q8H PRN (Reason: pain) 3 Days Qty: 9 RF: 0 No Action sucralfate 1 gram tablet 4 g PO .qd 30 Days Qty: 120 RF: 1 Eliquis 5 mg tablet 10 mg PO BID 7 Days Qty: 28 RF: 0 prednisone 10 mg tablet 10 mg PO BID RF: 0 cyanocobalamin (vitamin B-12) [Vitamin B-12] 2,500 mcg tablet, sublingual 2,500 mcg sublingual DAILY RF: 0 quetiapine [Seroquel] 300 mg Tablet 300 mg PO DAILY RF: 0 montelukast 10 mg tablet 10 mg PO DAILY RF: 0 zolpidem [Ambien] 10 mg Tablet 10 mg PO BEDTIME PRN (Reason: Insomnia) RF: 0 lorazepam 0.5 mg Tablet 0.5 mg PO DAILY PRN (Reason: Anxiety) RF: 0 escitalopram oxalate 10 mg Tablet 10 mg PO DAILY RF: 0 diclofenac sodium 75 mg tablet,delayed release (DR/EC) 75 mg PO BID RF: 0 cyclobenzaprine 5 mg tablet 5 mg PO TID RF: 0 albuterol sulfate 2.5 mg /3 mL (0.083 %) solution for nebulization 2.5 mg inhalation TID RF: 0 hydroxyzine HCl 25 mg tablet 25 mg PO QID RF: 0 hydrocodone-chlorpheniramine 10-8 mg/5 mL suspension,extended rel 12 hr 5 ml PO Q12H RF: 0 dicyclomine 10 mg capsule 10 mg PO QID PRN (Reason: cramps) RF: 0 cholecalciferol (vitamin D3) [Vitamin D3] 25 mcg (1,000 unit) tablet 25 mcg PO DAILY RF: 0 benzonatate [Tessalon Perles] 100 mg capsule 100 mg PO TID PRN (Reason: cough) Qty: 20 RF: 0 benzonatate [Tessalon Perles] 100 mg capsule 200 mg PO BID PRN (Reason: cough) 30 Days Qty: 60 RF: 3 Referrals: Claudia Villatoro MD [Primary Care Provider] - 2 days
[2020-09-09] MEDS: Cyclobenzaprine HCl 5 MG TABLET PO (10:50)
[2020-09-09] MEDS: Acetaminophen 325 MG TABLET 650 MG PO (10:50)
== END 2020-09-09 12:40 | disposition home or self-care (01) ==
PROVIDERS: Emergency Provider Emergency Medicine; PCP Internal Medicine
DX: M54.5 Low back pain (principal); M54.2 Cervicalgia; M25.562 Pain in left knee; M25.561 Pain in right knee; G44.309 Post-traumatic headache, unspecified, not intractable; Z79.899 Other long term (current) drug therapy
CPT/HCPCS: 70450; 72125; 73564; 99283; 99284

== ENCOUNTER 2020-09-11 18:17 | Emergency (ER) | payer OTHER, SELFPAY ==
--- NOTE | 2020-09-11 | XR_ITS ---
EXAMINATION: XR KNEE, LEFT CLINICAL INFORMATION: 50-year-old female patient who fell on her knee and now complains of pain with motion. COMPARISON: None TECHNIQUE: Four views of the left knee. FINDINGS: Bones and soft tissues are normal. No fracture or joint effusion. Alignment is anatomic. Joint spaces are well maintained. No abnormal soft tissue calcification. XR/XR knee LT 4V IMPRESSION: Normal left knee.
[2020-09-11 18:31] VITALS: BP 119/69; PULSE 97; RESP 18; TEMP 36.6; O2SAT 98; BMI 37.3
[2020-09-11 21:46] VITALS: BP 126/80; PULSE 74; RESP 17; TEMP 36.8; O2SAT 98
[2020-09-11] MEDS: HYDROcodone Bit/Acetam 5/325 TABLET 1 TAB PO (22:23)
--- NOTE | 2020-09-11 22:23 | ED_ITS ---
HPI - Extremity Injury (Lower) General Chief Complaint: Extremity Injury, Lower Stated Complaint: FOOT PAIN Time Seen by Provider: 09/11/20 22:14 History of Present Illness HPI Narrative: Patient is a 50-year-old female was involved in a fall last week. Had x-rays done at that time was negative. Presented continuing having pain to the left knee. Patient denies any fever chills. Any calf tenderness. Pain worsen with movement. No pain at the hip or the ankle. No redness no ra sh. Patient from home. Pain has been constant. patient denies any acute trauma to the left knee. She is already on Eliquis for pulmonary emboli Related Data Home Medications Medication Instructions Recorded Confirmed cyanocobalamin (vitamin B-12) 2,500 mcg SUBLINGUAL DAILY 08/02/20 08/19/20 [Vitamin B-12] escitalopram oxalate 10 mg PO DAILY 08/02/20 08/19/20 lorazepam 0.5 mg PO DAILY PRN 08/02/20 08/19/20 montelukast 10 mg PO DAILY 08/02/20 08/19/20 prednisone 10 mg PO BID 08/02/20 08/19/20 quetiapine [Seroquel] 300 mg PO DAILY 08/02/20 08/19/20 zolpidem [Ambien] 10 mg PO BEDTIME PRN 08/02/20 08/19/20 albuterol sulfate 2.5 mg INHALATION TID 08/15/20 08/19/20 cholecalciferol (vitamin D3) 25 mcg PO DAILY 08/15/20 08/19/20 [Vitamin D3] cyclobenzaprine 5 mg PO TID 08/15/20 08/19/20 diclofenac sodium 75 mg PO BID 08/15/20 08/19/20 dicyclomine 10 mg PO QID PRN 08/15/20 08/19/20 hydrocodone-chlorpheniramine 5 ml PO Q12H 08/15/20 08/19/20 hydroxyzine HCl 25 mg PO QID 08/15/20 08/19/20 Previous Rx's Medication Instructions Recorded Eliquis 10 mg PO BID 7 Days #28 tab 08/14/20 benzonatate [Tessalon Perles] 100 mg PO TID PRN #20 cap 08/16/20 benzonatate 100 mg capsule 200 mg PO BID PRN 30 Days #60 cap 08/19/20 sucralfate 1 gram tablet 4 g PO .qd 30 Days #120 tab 08/23/20 acetaminophen-codeine 1 tab PO Q8H PRN 3 Days #9 tab 09/09/20 cyclobenzaprine 5 mg PO Q8H PRN 5 Days #14 tab 09/09/20 lidocaine [Lidoderm] 1 patch TOPICAL DAILY PRN #30 ea 09/09/20 MDD remove after 12 hours Allergies Allergy/AdvReac Type Severity Reaction Status Date / Time No Known Allergies Allergy Verified 08/19/20 15:28 Review of Systems Review of Systems: Constitutional: No Weight loss, No Fever, No Chills, No Night Sweats, No Fatigue, No Malaise ENT/Mouth: No Hearing loss, No Ear Pain, No Nasal Congestion, No Sinus Pain, No Hoarseness, No sore throat, No Rhinorrhea, No Swallowing Difficulty Eyes: No Eye Pain, No Swelling, No Redness, No Foreign Body, No Discharge, No Vision Changes Cardiovascular: No Chest Pain, No SOB, No Dyspnea on Exertion, No Orthopnea, No Edema, No Palpitations Respiratory: No Cough, No Sputum, No Wheezing, No Smoke Exposure, No Dyspnea Gastrointestinal: No Nausea, No Vomiting, No Diarrhea, No Constipation, No abdominal Pain, No Hematochezia, No Melena Genitourinary: no irregular bleeding, No Dysuria, No Urinary Frequency, No Hematuria, No Urinary Incontinence, No Urgency, No Flank Pain, No Urinary Flow Changes, No Hesitancy Musculoskeletal: Positive pain to the left knee Skin: No Skin Lesions, No rash Neuro: No Weakness, No Numbness, No Paresthesias, No Loss of Consciousness, No Dizziness, No Headache Psych: No Anxiety/Panic, No Depression, No SI/HI/AH/VH, No Social Issues, Heme/Lymph: No Bruising, No Bleeding,No Lymphadenopathy Endocrine: No Polyuria, No Polydipsia, No Temperature Intolerance Yes all other systems are reviewed and are negative [facility] Past Medical History Attestation statement: The following information was validated with the patient. Medical History Arthritis Asthma Depression Diet-controlled diabetes mellitus Fibromyalgia Hypogammaglobulinemia Hypothyroidism Migraines Pleuritic chest pain Pulmonary embolism Sleep apnea TIA (transient ischemic attack) Surgical History History of bariatric surgery History of cholecystectomy S/P total abdominal hysterectomy Social History Social History Alcohol intake: never Smoking Status: Never smoker Use of substances other than those prescribed or required for medical reasons: No Advance Directives: No Advance Directives Information Provided: No service: No Current occupational status: disabled Physical Exam Vital Signs: Vital Signs: Last Vital Signs Temp 98.3 F 09/11/20 21:46 Pulse 74 09/11/20 21:46 Resp 17 09/11/20 21:46 BP 126/80 09/11/20 21:46 Pulse Ox 98 09/11/20 21:46 Body Mass Index 37.3 Appearance: Alert. Oriented X3. No acute distress. Eyes: Pupils equal, round and reactive to light. ENT: Pharynx normal. Neck: Normal inspection. Neck supple. No lymph nodes noted. No crepitus CVS: Normal heart rate and rhythm. Pulses normal. Normal S1 and S2 Respiratory: No respiratory distress. Breath sounds normal. No Wheezing. No rales Abdomen: Soft and nontender. No rigidity. No distention. good BS x4 Skin: Skin warm and dry. Normal skin color. Normal skin turgor. Extremities: No lower extremity edema. Neurovascular intact to all extremities. No Lacerations. No Rash Neuro: Oriented X 3. No motor deficit. No sensory deficit. Moving all extermities. No slurred speech MDM - Extremity Injury (Lower) MDM Narrative Medical decision making narrative: patient positive pain to the left knee area. Limited range of motion. No joint effusion noted. No patellar tenderness noted. Pain on palpation of the medial collateral ligament. Question if it is secondary to meniscus or ligamentous injury. Patient x-ray showed no gross evidence of fracture. Patient will require follow-up with orthopedics on an outpatient basis. Discharge Plan Discharge Clinical Impression: Internal derangement of knee Patient Disposition: Home, Self-Care Instructions: Knee Pain (ED) Prescriptions: No Action sucralfate 1 gram tablet 4 g PO .qd 30 Days Qty: 120 RF: 1 Eliquis 5 mg tablet 10 mg PO BID 7 Days Qty: 28 RF: 0 prednisone 10 mg tablet 10 mg PO BID RF: 0 cyanocobalamin (vitamin B-12) [Vitamin B-12] 2,500 mcg tablet, sublingual 2,500 mcg sublingual DAILY RF: 0 quetiapine [Seroquel] 300 mg Tablet 300 mg PO DAILY RF: 0 montelukast 10 mg tablet 10 mg PO DAILY RF: 0 zolpidem [Ambien] 10 mg Tablet 10 mg PO BEDTIME PRN (Reason: Insomnia) RF: 0 lorazepam 0.5 mg Tablet 0.5 mg PO DAILY PRN (Reason: Anxiety) RF: 0 escitalopram oxalate 10 mg Tablet 10 mg PO DAILY RF: 0 diclofenac sodium 75 mg tablet,delayed release (DR/EC) 75 mg PO BID RF: 0 cyclobenzaprine 5 mg tablet 5 mg PO TID RF: 0 albuterol sulfate 2.5 mg /3 mL (0.083 %) solution for nebulization 2.5 mg inhalation TID RF: 0 hydroxyzine HCl 25 mg tablet 25 mg PO QID RF: 0 hydrocodone-chlorpheniramine 10-8 mg/5 mL suspension,extended rel 12 hr 5 ml PO Q12H RF: 0 dicyclomine 10 mg capsule 10 mg PO QID PRN (Reason: cramps) RF: 0 cholecalciferol (vitamin D3) [Vitamin D3] 25 mcg (1,000 unit) tablet 25 mcg PO DAILY RF: 0 benzonatate [Tessalon Perles] 100 mg capsule 100 mg PO TID PRN (Reason: cough) Qty: 20 RF: 0 lidocaine [Lidoderm] 5 % adhesive patch,medicated 1 patch topical DAILY MDD remove after 12 hours PRN (Reason: pain) Qty: 30 RF: 0 cyclobenzaprine 5 mg tablet 5 mg PO Q8H PRN (Reason: pain (scale score 7-10)) 5 Days Qty: 14 RF: 0 acetaminophen-codeine 300-15 mg tablet 1 tab PO Q8H PRN (Reason: pain) 3 Days Qty: 9 RF: 0 benzonatate [Tessalon Perles] 100 mg capsule 200 mg PO BID PRN (Reason: cough) 30 Days Qty: 60 RF: 3 Referrals: Kelly Moon MD [Physician] - 2 days
== END 2020-09-11 23:24 | disposition home or self-care (01) ==
PROVIDERS: Emergency Provider Emergency Medicine Emergency Medical Services; PCP Internal Medicine
DX: M23.92 Unspecified internal derangement of left knee (principal); M79.672 Pain in left foot; Z79.899 Other long term (current) drug therapy
CPT/HCPCS: 73564; 99283; 99284

== ENCOUNTER 2020-09-17 12:27 | Outpatient (REF) | payer OTHER, SELFPAY ==
[2020-09-17 13:30] LABS: MANUAL DIFF FLAG NO
[2020-09-17 13:34] LABS: Basophils Absolute Auto 0.1 X10*3/uL (0.0-0.2); Basophils Percent Auto 0.6 % (0-2); Eosinophils Absolute Auto 0.2 X10*3/uL (0.0-0.4); Hemoglobin 10.1 g/dl (12.0-16.0); Imm Gran Abs Auto 0.14 X10*3/uL (0.00-0.03); Imm Gran Pct Auto 1.6 % (0.0-0.4); Lymphocytes Percent Auto 33.1 % (20-40); Mean Corpuscular HGB Conc 29.7 g/dl (31.0-35.0); Mean Corpuscular Hemoglobin 24.2 pg (27.0-33.0); Mean Corpuscular Volume 81.3 fL (80-98); Mean Platelet Volume 9.1 fL (9.4-12.3); Monocytes Absolute Auto 0.7 X10*3/uL (0.1-1.2); Monocytes Percent Auto 7.7 % (2-11); Neutrophils Absolute Auto 4.9 X10*3/uL (2.0-8.3); Platelet Count 450 X10*3/uL (160-400); Red Blood Count 4.18 X10*6/uL (4.20-5.50); Red Cell Distribution Width 16.5 % (11.0-16.0)
[2020-09-17 14:00] LABS: Alanine Aminotransferase 17 U/L (0-31); Albumin Level 3.8 g/dL (3.5-5.0); Alkaline Phosphatase 62 U/L (39-117); Anion Gap 13 (12-20); Aspartate Amino Transferase 18 U/L (5-31); Bilirubin Total 0.4 mg/dL (0.0-1.0); Blood Urea Nitrogen 15 mg/dL (9-16); Calcium 9.4 mg/dL (8.4-10.2); Carbon Dioxide 29 mmol/L (22-29); Chloride 101 mmol/L (96-108); Estimated Glomerular Filt Rate 56; Glucose Random 78 mg/dL (60-115); Sodium 138 mmol/L (135-145); Total Protein 6.5 g/dL (6.5-8.0)
[2020-09-17 14:11] LABS: Estimated Average Glucose 126 mg/dL
[2020-09-17 14:21] LABS: Ferritin 5 ng/mL (10-250)
[2020-09-17 15:07] LABS: Vitamin B12 1465 pg/mL (200-900)
== END 2020-09-17 12:28 | disposition home or self-care (01) ==
LOC: HO.LAB 12:27
PROVIDERS: Visit Provider Internal Medicine
DX: J45.41 Moderate persistent asthma with (acute) exacerbation (principal); I26.99 Other pulmonary embolism without acute cor pulmonale; D51.8 Other vitamin B12 deficiency anemias; D50.8 Other iron deficiency anemias
CPT/HCPCS: 36415; 80053; 82607; 82728; 83036; 85025

== ENCOUNTER 2020-09-17 20:48 | Emergency (ER) | payer OTHER, SELFPAY ==
[2020-09-17 20:51] VITALS: BP 113/73; PULSE 96; RESP 18; TEMP 36.4; O2SAT 98; BMI 37.3
--- NOTE | 2020-09-17 22:06 | ED_ITS ---
HPI - Extremity Injury (Lower) General Chief Complaint: Extremity Injury, Lower Stated Complaint: Left Leg pain Time Seen by Provider: 09/17/20 22:02 Source: patient Mode of arrival: ambulatory Limitations: language barrier History of Present Illness HPI Narrative: Apparently patient fell about 1 week ago was seen here 2 times since then today she comes because of bruising on the left leg for last 3 4 days. Patient taking Eliquis initially was slightly red now is increasing size no further fall or any other injury patient x-ray was negative also patient noticed small bruise on the left arm Related Data Home Medications Medication Instructions Recorded Confirmed cyanocobalamin (vitamin B-12) 2,500 mcg SUBLINGUAL DAILY 08/02/20 08/19/20 [Vitamin B-12] escitalopram oxalate 10 mg PO DAILY 08/02/20 08/19/20 lorazepam 0.5 mg PO DAILY PRN 08/02/20 08/19/20 montelukast 10 mg PO DAILY 08/02/20 08/19/20 prednisone 10 mg PO BID 08/02/20 08/19/20 quetiapine [Seroquel] 300 mg PO DAILY 08/02/20 08/19/20 zolpidem [Ambien] 10 mg PO BEDTIME PRN 08/02/20 08/19/20 albuterol sulfate 2.5 mg INHALATION TID 08/15/20 08/19/20 cholecalciferol (vitamin D3) 25 mcg PO DAILY 08/15/20 08/19/20 [Vitamin D3] cyclobenzaprine 5 mg PO TID 08/15/20 08/19/20 diclofenac sodium 75 mg PO BID 08/15/20 08/19/20 dicyclomine 10 mg PO QID PRN 08/15/20 08/19/20 hydrocodone-chlorpheniramine 5 ml PO Q12H 08/15/20 08/19/20 hydroxyzine HCl 25 mg PO QID 08/15/20 08/19/20 Previous Rx's Medication Instructions Recorded Eliquis 10 mg PO BID 7 Days #28 tab 08/14/20 benzonatate [Tessalon Perles] 100 mg PO TID PRN #20 cap 08/16/20 benzonatate 100 mg capsule 200 mg PO BID PRN 30 Days #60 cap 08/19/20 sucralfate 1 gram tablet 4 g PO .qd 30 Days #120 tab 08/23/20 acetaminophen-codeine 1 tab PO Q8H PRN 3 Days #9 tab 09/09/20 cyclobenzaprine 5 mg PO Q8H PRN 5 Days #14 tab 09/09/20 lidocaine [Lidoderm] 1 patch TOPICAL DAILY PRN #30 ea 09/09/20 MDD remove after 12 hours oxycodone 5 mg PO Q6H PRN #20 tab 09/17/20 Allergies Allergy/AdvReac Type Severity Reaction Status Date / Time No Known Allergies Allergy Verified 08/19/20 15:28 Review of Systems Review of Systems: REVIEW OF SYSTEMS: Pertinent positives and negatives are stated above in the history. GEN: no fevers, chills, fatigue HEENT: no nasal congestion, sore throat, ear pain NEURO: no headache, dizziness, focal weakness PULM: no cough, shortness of breath CV: no chest pain, palpitations, LE edema ABD: no abdominal pain, nausea, vomiting, diarrhea : no dysuria, urgency, frequency SKIN: Ecchymosis left leg and left arm ROS otherwise negative x 10 [facility] Past Medical History Medical History Arthritis Asthma Depression Diet-controlled diabetes mellitus Fibromyalgia Hypogammaglobulinemia Hypothyroidism Migraines Pleuritic chest pain Pulmonary embolism Sleep apnea TIA (transient ischemic attack) Surgical History History of bariatric surgery History of cholecystectomy S/P total abdominal hysterectomy Social History Social History Alcohol intake: never Smoking Status: Never smoker Smoked in Last 30 Days: No Use of substances other than those prescribed or required for medical reasons: No Advance Directives: No service: No Current occupational status: disabled Physical Exam Vital Signs: Vital Signs: Last Vital Signs Temp 97.6 F 09/17/20 20:51 Pulse 96 09/17/20 20:51 Resp 18 09/17/20 20:51 BP 113/73 09/17/20 20:51 Pulse Ox 98 09/17/20 20:51 Body Mass Index 37.3 Appearance: Alert. Oriented X3. No acute distress. Eyes: Pupils equal, round and reactive to light. ENT: Pharynx normal. Neck: Normal inspection. Neck supple. CVS: Normal heart rate and rhythm. Pulses normal. Respiratory: No respiratory distress. Breath sounds normal. Abdomen: Soft and nontender. Skin: Skin warm and dry. Small area of ecchymosis left thigh on the lateral aspect and left arm no significant fluid collection Extremities: No lower extremity edema. Good range of movement patient am bulatory Neuro: Oriented X 3. No motor deficit. No sensory deficit. Discharge Plan Discharge Clinical Impression: Superficial bruising of lower leg Patient Disposition: Home, Self-Care Instructions: Contusion in Adults (ED) Additional Instructions: Apply ice rest and take pain medication as needed Prescriptions: New oxycodone 5 mg tablet 5 mg PO Q6H PRN (Reason: pain) Qty: 20 RF: 0 No Action sucralfate 1 gram tablet 4 g PO .qd 30 Days Qty: 120 RF: 1 Eliquis 5 mg tablet 10 mg PO BID 7 Days Qty: 28 RF: 0 prednisone 10 mg tablet 10 mg PO BID RF: 0 cyanocobalamin (vitamin B-12) [Vitamin B-12] 2,500 mcg tablet, sublingual 2,500 mcg sublingual DAILY RF: 0 quetiapine [Seroquel] 300 mg Tablet 300 mg PO DAILY RF: 0 montelukast 10 mg tablet 10 mg PO DAILY RF: 0 zolpidem [Ambien] 10 mg Tablet 10 mg PO BEDTIME PRN (Reason: Insomnia) RF: 0 lorazepam 0.5 mg Tablet 0.5 mg PO DAILY PRN (Reason: Anxiety) RF: 0 escitalopram oxalate 10 mg Tablet 10 mg PO DAILY RF: 0 diclofenac sodium 75 mg tablet,delayed release (DR/EC) 75 mg PO BID RF: 0 cyclobenzaprine 5 mg tablet 5 mg PO TID RF: 0 albuterol sulfate 2.5 mg /3 mL (0.083 %) solution for nebulization 2.5 mg inhalation TID RF: 0 hydroxyzine HCl 25 mg tablet 25 mg PO QID RF: 0 hydrocodone-chlorpheniramine 10-8 mg/5 mL suspension,extended rel 12 hr 5 ml PO Q12H RF: 0 dicyclomine 10 mg capsule 10 mg PO QID PRN (Reason: cramps) RF: 0 cholecalciferol (vitamin D3) [Vitamin D3] 25 mcg (1,000 unit) tablet 25 mcg PO DAILY RF: 0 benzonatate [Tessalon Perles] 100 mg capsule 100 mg PO TID PRN (Reason: cough) Qty: 20 RF: 0 lidocaine [Lidoderm] 5 % adhesive patch,medicated 1 patch topical DAILY MDD remove after 12 hours PRN (Reason: pain) Qty: 30 RF: 0 cyclobenzaprine 5 mg tablet 5 mg PO Q8H PRN (Reason: pain (scale score 7-10)) 5 Days Qty: 14 RF: 0 acetaminophen-codeine 300-15 mg tablet 1 tab PO Q8H PRN (Reason: pain) 3 Days Qty: 9 RF: 0 benzonatate [Tessalon Perles] 100 mg capsule 200 mg PO BID PRN (Reason: cough) 30 Days Qty: 60 RF: 3 Interventions: ED Discharge Assessment Last Done: 09/17/20 22:24 Discharge Date/Time: 09/17/20 22:35
[2020-09-17] MEDS: oxyCODONE HCl Immed Release 5 MG TABLET PO (22:30)
== END 2020-09-17 22:35 | disposition home or self-care (01) ==
PROVIDERS: Emergency Provider Internal Medicine; PCP Internal Medicine
DX: S80.12XA Contusion of left lower leg, initial encounter (principal); M79.605 Pain in left leg; X58.XXXA Exposure to other specified factors, initial encounter; Y93.9 Activity, unspecified; Y92.9 Unspecified place or not applicable; Y99.9 Unspecified external cause status; Z79.899 Other long term (current) drug therapy; Z79.01 Long term (current) use of anticoagulants; Z98.84 Bariatric surgery status
CPT/HCPCS: 99283

== ENCOUNTER 2020-09-30 09:39 | Outpatient (REF) | payer OTHER, SELFPAY | END 2020-09-30 09:40 | disposition home or self-care (01) | LOC: HO.MDS 09:39 | PROVIDERS: PCP Internal Medicine; Visit Provider Hospitalist | DX: J45.909 Unspecified asthma, uncomplicated (principal) | CPT/HCPCS: 96365; 96366 ==

== ENCOUNTER 2020-10-13 09:47 | Emergency (ER) | payer OTHER, SELFPAY ==
[2020-10-13 10:09] VITALS: BP 127/67; PULSE 71; RESP 16; TEMP 36.9; O2SAT 100; BMI 43.7
--- NOTE | 2020-10-13 10:53 | XR_ITS ---
EXAMINATION: XR CHEST CLINICAL INFORMATION: Cough and shortness of breath COMPARISON: 08/29/2020 TECHNIQUE: Frontal view of the chest was obtained. FINDINGS: Normal cardiomediastinal silhouette. There is hypoinflation of the lungs. No focal consolidation. No pleural effusion or pneumothorax. No acute osseous abnormality. XR/XR chest 1V IMPRESSION: No acute disease within the chest. Low lung volumes.
--- NOTE | 2020-10-13 11:11 | ED.URI ---
HPI - URI/Sore Throat General Chief Complaint: Upper Respiratory Symptoms Stated Complaint: back pain Time Seen by Provider: 10/13/20 10:24 Source: patient Mode of arrival: ambulatory Limitations: language barrier (Grenadian-speaking) History of Present Illness HPI Narrative: 50yoF c PMHx of pulmonary embolism currently on Eliquis and taking as prescribed daily, pleuritic chest pain, TIA, diet-controlled diabetes, migraine headaches, hypogammaglobulinem, hypothyroidism, fibromyalgia, arthritis, sleep apnea and asthma presenting to the ED c c/o intermittent headaches c associated N/V similar when compared to prior headaches, fevers of 38.0 F, chills, dry cough, chest congestion, lung pain worse with coughing, body aches and generalized fatigue for the past 3 days. Patient was recently hospitalized here on 08/15/2020 for asthma exacerbation and the PE. Denies recent travel or sick contacts. Related Data Home Medications Medication Instructions Recorded Confirmed cyanocobalamin (vitamin B-12) 2,500 mcg SUBLINGUAL DAILY 08/02/20 08/19/20 [Vitamin B-12] escitalopram oxalate 10 mg PO DAILY 08/02/20 08/19/20 lorazepam 0.5 mg PO DAILY PRN 08/02/20 08/19/20 montelukast 10 mg PO DAILY 08/02/20 08/19/20 prednisone 10 mg PO BID 08/02/20 08/19/20 quetiapine [Seroquel] 300 mg PO DAILY 08/02/20 08/19/20 zolpidem [Ambien] 10 mg PO BEDTIME PRN 08/02/20 08/19/20 albuterol sulfate 2.5 mg INHALATION TID 08/15/20 08/19/20 cholecalciferol (vitamin D3) 25 mcg PO DAILY 08/15/20 08/19/20 [Vitamin D3] cyclobenzaprine 5 mg PO TID 08/15/20 08/19/20 diclofenac sodium 75 mg PO BID 08/15/20 08/19/20 dicyclomine 10 mg PO QID PRN 08/15/20 08/19/20 hydrocodone-chlorpheniramine 5 ml PO Q12H 08/15/20 08/19/20 hydroxyzine HCl 25 mg PO QID 08/15/20 08/19/20 Previous Rx's Medication Instructions Recorded Eliquis 10 mg PO BID 7 Days #28 tab 08/14/20 benzonatate [Tessalon Perles] 100 mg PO TID PRN #20 cap 08/16/20 benzonatate 100 mg capsule 200 mg PO BID PRN 30 Days #60 cap 08/19/20 sucralfate 1 gram tablet 4 g PO .qd 30 Days #120 tab 08/23/20 acetaminophen-codeine 1 tab PO Q8H PRN 3 Days #9 tab 09/09/20 cyclobenzaprine 5 mg PO Q8H PRN 5 Days #14 tab 09/09/20 lidocaine [Lidoderm] 1 patch TOPICAL DAILY PRN #30 ea 09/09/20 MDD remove after 12 hours oxycodone 5 mg PO Q6H PRN #20 tab 09/17/20 albuterol sulfate 0.63 mg INHALATION QID PRN #90 ml 10/13/20 albuterol sulfate 1 inh INHALATION QID PRN #18 g 10/13/20 azithromycin See Rx Instructions .ROUTE 10/13/20 .COMPLEX #6 tab cyclobenzaprine 10 mg PO TID PRN #10 tab 10/13/20 docusate sodium [Colace] 100 mg PO BID #20 cap 10/13/20 oxycodone-acetaminophen [Percocet] 1 tab PO Q6H PRN #10 tab 10/13/20 prednisone 40 mg PO DAILY 5 Days #10 tab 10/13/20 Allergies Allergy/AdvReac Type Severity Reaction Status Date / Time No Known Allergies Allergy Verified 08/19/20 15:28 Review of Systems Review of Systems: Constitutional :+ Fever, + Chills, + Fatigue, + Malaise, No changes in activity, No lethargy, No recent prior head injury, No agitation, No increased fussiness ENT/Mouth : No Ear Pain, No Nasal Congestion, No Sinus Pain, No sore throat, No Rhinorrhea, No Swallowing Difficulty Eyes: No Eye Pain, No Swelling, No Vision Changes Cardiovascular : + SOB, no Dyspnea on Exertion, No Orthopnea, No Edema, No extremity swelling, No Palpitations Respiratory : + Cough, No Sputum, + Wheezing, + Dyspnea Gastrointestinal : + Nausea, + Vomiting, No Diarrhea, No abdominal Pain Genitourinary : No Dysuria, No Urinary Frequency, No Hematuria, No Urinary Incontinence, No Urgency Musculoskeletal : No joint pain, + Myalgias, No Joint Swelling, No neck stiffness, No back pain/injury Skin : No Skin Lesions, No rash Neuro : No unsteady gait, No Paresthesias, No Loss of Consciousness, No altered mental status, No dizziness, + Headache Denies past medical history of HIV, recent trauma, coagulopathy, recent spinal/ epidural procedure, new medication, URI symptoms, close contacts with similar symptoms, tick bite, or known CO2 exposure. Yes all other systems are reviewed and are negative [facility] Past Medical History Attestation statement: The following information was validated with the patient. Medical History Arthritis Asthma Depression Diet-controlled diabetes mellitus Fibromyalgia Hypogammaglobulinemia Hypothyroidism Migraines Pleuritic chest pain Pulmonary embolism Sleep apnea TIA (transient ischemic attack) Surgical History History of bariatric surgery History of cholecystectomy S/P total abdominal hysterectomy Social History Social History Alcohol intake: never Smoking Status: Never smoker Advance Directives: No Advance Directives Information Provided: No service: No Current occupational status: disabled Physical Exam Vital Signs: Vital Signs: Last Vital Signs Temp 99.7 F 10/13/20 14:47 Pulse 92 10/13/20 14:47 Resp 16 10/13/20 14:47 BP 115/52 L 10/13/20 14:47 Pulse Ox 98 10/13/20 14:47 Body Mass Index 43.7 vital signs have been reviewed as normal and appeared to be correct. Blood pressure normal. Heart rate normal. Respiration rate normal. Temperature normal. Oxygen saturation normal. Appearance: Alert. Oriented X3. No acute distress. Head: Normal external exam. Normocephalic. Atraumatic. Eyes: PERRLA. EOMI. Conjunctiva and sclera normal. Eyelids normal. ENT: EAC normal. TM's Normal. Pharynx normal. Uvula midline. Moist mucous membranes. No trismus noted. No drooling noted. No muffled voice noted. Neck: Normal inspection. Neck supple. FROM. No adenopathy. Thyroid Normal. No meningeal signs. No neck mass noted. CVS: Normal heart rate and rhythm. Heart sound normal. No murmurs noted. Pulses normal throughout. Respiratory: No respiratory distress. Reports pain with inspiration and goes into a coughing fit with decreased breath sounds and inspiratory and expiratory wheezing throughout. No rales/rhonchi noted at this time. Chest nontender. No accessory muscle usage noted or decreased air movement noted. Back: Full range of motion noted. Skin: Skin warm and dry. Normal skin color. Normal skin turgor. No rashes/lesions/lacerations noted. Extremities: No lower extremity edema. No calf tenderness. Extremities exhibit normal range of motion. Extremities nontender. Neuro: Oriented X 3. No motor deficit. No sensory deficit. Reflexes normal. Course Course Course Narrative: 10:55am - 50yoF c PMHx of pulmonary embolism currently on Eliquis and taking as prescribed daily, pleuritic chest pain, TIA, diet-controlled diabetes, migraine headaches, hypogammaglobulinem, hypothyroidism, fibromyalgia, arthritis, sleep apnea and asthma presenting to the ED c c/o intermittent headaches c associated N/V similar when compared to prior headaches, fevers of 38.0 F, chills, dry cough, chest congestion, lung pain worse with coughing, body aches and generalized fatigue for the past 3 days. - On exam patient is not in any acute distress including respiratory distress although she goes into coughing fits. Wheezing noted with expiratory and inspiratory no accessory muscle use is noted at this time. Oxygen saturation is 100% on room air all other vitals are within normal limits. - Concern for PNA vs worsening embolism vs asthma exacerbation - Plan: Labs, CXR, EKG, respiratory panel. Provide IVF's, an hour long breathing treatment, 125 mg of Solu-Medrol, Robitussin with codeine, Reglan, Flexeril then re-evaluate. Reevaluation(s) Reevaluation #1: - patient with anemia which is lower when compared to 09/17/2020 which was 10.1/34.0 today it is 8.8/29.7. Patient denies any vomiting blood, rectal bleeding, vaginal bleeding or hematuria that she knows about. Potassium was also elevated at 5.7 and BUN at 21. LDH 233. BNP 160. Otherwise all other labs are within normal limits. Chest x-ray revealed low lung volumes otherwise no other acute processes such as pneumonia. UA within normal limits no evidence of UTI. Stool occult positive. Patient negative for all respiratory panel. - therefore patient was given 30 g of Kayexalate. Will repeat a chemistry after the Kayexalate. Patient already received an hour long breathing treatment so this should also help the patient's potassium. - will obtain a CT scan of chest to evaluate for any other acute processes or worsening of the patient's pulmonary embolism and a CT scan of abdomen and pelvis for possible GI bleed although patient is nontender and her abdomen is soft. Then re-evaluate. Time: 13:00 Reevaluation #2: - CT scan of chest negative for evidence of PE, aortic dissection or aneurysm the lungs are clear. Patient noted to have mild constipation otherwise no other acute processes noted. Patient most likely asthma exacerbation. - awaiting patient's repeat chemistry if the potassium has improved we will discharge the patient with antibiotics and symptomatic treatment along with instructions return if any new or worsening symptoms and to follow up with primary care provider and to continue taking her prescribed medications as previously prescribed. Time: 14:51 [facility] - URI/Sore Throat Medical Records Attestation: I reviewed the patient's medical records. Lab Data Attestation: I reviewed the patient's lab results. Result diagrams: 10/13/20 11:36 10/13/20 14:45 Labs: Lab Results 10/13/20 10/13/20 10/13/20 Range/Units 11:36 11:36 11:36 WBC 6.7 (4.8-10.8) X10*3/uL RBC 3.77 L (4.20-5.50) X10*6/uL Hgb 8.8 L (12.0-16.0) g/dl Hct 29.7 L (37-47) % MCV 78.8 L (80-98) fL MCH 23.3 L (27.0-33.0) pg MCHC 29.6 L (31.0-35.0) g/dl RDW 17.2 H (11.0-16.0) % Plt Count 381 (160-400) X10*3/uL MPV 9.1 L (9.4-12.3) fL Immature Gran % (Auto) 0.3 (0.0-0.4) % Neut % (Auto) 57.5 (45-73) % Lymph % (Auto) 28.0 (20-40) % Allen % (Auto) 9.2 (2-11) % Eos % (Auto) 4.7 H (0-4) % Baso % (Auto) 0.3 (0-2) % Lymph # (Auto) 1.9 (1.2-4.9) X10*3/uL Allen # (Auto) 0.6 (0.1-1.2) X10*3/uL Eos # (Auto) 0.3 (0.0-0.4) X10*3/uL Baso # (Auto) 0.0 (0.0-0.2) X10*3/uL Abs Immat Gran (auto) 0.02 (0.00-0.03) X10*3/uL Absolute Neuts (auto) 3.9 (2.0-8.3) X10*3/uL Absolute Nucleated RBC 0.000 (0.0-0.012) X10*3/uL Nucleated RBC % (auto) 0.0 (0.0-0.2) /100WBC PT 13.5 H D (10.8-13.0) SEC INR 1.1 (0.9-1.1) Sodium 138 (135-145) mmol/L Potassium 5.7 H (3.3-5.1) mmol/l Chloride 106 (96-108) mmol/L Carbon Dioxide 25 (22-29) mmol/L Anion Gap 13 (12-20) BUN 21 H (9-16) mg/dL Creatinine 1.22 (0.5-1.4) mg/dL Estim Creat Clear Calc 53.7 Estimated GFR 46 Random Glucose 67 (60-115) mg/dL Calcium 8.5 D (8.4-10.2) mg/dL Magnesium 2.2 (1.6-2.6) mg/dL Ferritin 9 L (10-250) ng/mL Total Bilirubin 0.2 (0.0-1.0) mg/dL Direct Bilirubin < 0.2 (0.0-0.5) mg/dL AST 17 (5-31) U/L ALT 8 (0-31) U/L Alkaline Phosphatase 59 (39-117) U/L Lactate Dehydrogenase 233 H (122-220) U/L Troponin I High Sens (<3.5-17.0) ng/L B-Natriuretic Peptide (<100) pg/mL Total Protein 6.0 L (6.5-8.0) g/dL Albumin 3.3 L (3.5-5.0) g/dL Procalcitonin ng/mL Urine Color Urine Appearance Urine pH (5.0-8.0) Ur Specific [place] (1.005-1.025) Urine Protein (NEG-TRACE) MG/DL Urine Glucose (UA) (NEG) MG/DL Urine Ketones (NEG) MG/DL Urine Blood (NEG) Urine Nitrite (NEG) Ur Leukocyte Esterase (NEG) Stool Occult Blood (NEG) Respiratory Panel [place] Adenovirus (Rapid PCR) (Not Detect.) B.pert (TEM-PCR) (Not Detect.) B.parapertussis DNA PCR (Not Detect.) C. pneumoniae DNA (PCR) (Not Detect.) Coronavirus OC43 (PCR) (Not Detect.) Coronavirus HKU1 (PCR) (Not Detect.) Coronavirus 229E (PCR) (Not Detect.) Coronavirus NL63 (PCR) (Not Detect.) Human Metapneumovir PCR (Not Detect.) Influenza A (RT-PCR) (Not Detect.) Influenza B (RT-PCR) (Not Detect.) M. pneumoniae (PCR) (Not Detect.) Parainfluenza 1 (PCR) (Not Detect.) Parainfluenza 2 (PCR) (Not Detect.) Parainfluenza 3 (PCR) (Not Detect.) Parainfluenza 4 (PCR) (Not Detect.) RSV (PCR) (Not Detect.) Entero/Rhino (PCR) (Not Detect.) SARS-CoV-2 RNA (RT-PCR) (Not Detect.) 10/13/20 10/13/20 10/13/20 Range/Units 11:36 11:36 11:36 WBC (4.8-10.8) X10*3/uL RBC (4.20-5.50) X10*6/uL Hgb (12.0-16.0) g/dl Hct (37-47) % MCV (80-98) fL MCH (27.0-33.0) pg MCHC (31.0-35.0) g/dl RDW (11.0-16.0) % Plt Count (160-400) X10*3/uL MPV (9.4-12.3) fL Immature Gran % (Auto) (0.0-0.4) % Neut % (Auto) (45-73) % Lymph % (Auto) (20-40) % Allen % (Auto) (2-11) % Eos % (Auto) (0-4) % Baso % (Auto) (0-2) % Lymph # (Auto) (1.2-4.9) X10*3/uL Allen # (Auto) (0.1-1.2) X10*3/uL Eos # (Auto) (0.0-0.4) X10*3/uL Baso # (Auto) (0.0-0.2) X10*3/uL Abs Immat Gran (auto) (0.00-0.03) X10*3/uL Absolute Neuts (auto) (2.0-8.3) X10*3/uL Absolute Nucleated RBC (0.0-0.012) X10*3/uL Nucleated RBC % (auto) (0.0-0.2) /100WBC PT (10.8-13.0) SEC INR (0.9-1.1) Sodium (135-145) mmol/L Potassium (3.3-5.1) mmol/l Chloride (96-108) mmol/L Carbon Dioxide (22-29) mmol/L Anion Gap (12-20) BUN (9-16) mg/dL Creatinine (0.5-1.4) mg/dL Estim Creat Clear Calc Estimated GFR Random Glucose (60-115) mg/dL Calcium (8.4-10.2) mg/dL Magnesium (1.6-2.6) mg/dL Ferritin (10-250) ng/mL Total Bilirubin (0.0-1.0) mg/dL Direct Bilirubin (0.0-0.5) mg/dL AST (5-31) U/L ALT (0-31) U/L Alkaline Phosphatase (39-117) U/L Lactate Dehydrogenase (122-220) U/L Troponin I High Sens < 3.5 (<3.5-17.0) ng/L B-Natriuretic Peptide 160 H (<100) pg/mL Total Protein (6.5-8.0) g/dL Albumin (3.5-5.0) g/dL Procalcitonin 0.06 ng/mL Urine Color Urine Appearance Urine pH (5.0-8.0) Ur Specific [place] (1.005-1.025) Urine Protein (NEG-TRACE) MG/DL Urine Glucose (UA) (NEG) MG/DL Urine Ketones (NEG) MG/DL Urine Blood (NEG) Urine Nitrite (NEG) Ur Leukocyte Esterase (NEG) Stool Occult Blood (NEG) Respiratory Panel [place] See Note Adenovirus (Rapid PCR) Not Detected (Not Detect.) B.pert (TEM-PCR) Not Detected (Not Detect.) B.parapertussis DNA PCR Not Detected (Not Detect.) C. pneumoniae DNA (PCR) Not Detected (Not Detect.) Coronavirus OC43 (PCR) Not Detected (Not Detect.) Coronavirus HKU1 (PCR) Not Detected (Not Detect.) Coronavirus 229E (PCR) Not Detected (Not Detect.) Coronavirus NL63 (PCR) Not Detected (Not Detect.) Human Metapneumovir PCR Not Detected (Not Detect.) Influenza A (RT-PCR) Not Detected (Not Detect.) Influenza B (RT-PCR) Not Detected (Not Detect.) M. pneumoniae (PCR) Not Detected (Not Detect.) Parainfluenza 1 (PCR) Not Detected (Not Detect.) Parainfluenza 2 (PCR) Not Detected (Not Detect.) Parainfluenza 3 (PCR) Not Detected (Not Detect.) Parainfluenza 4 (PCR) Not Detected (Not Detect.) RSV (PCR) Not Detected (Not Detect.) Entero/Rhino (PCR) Not Detected (Not Detect.) SARS-CoV-2 RNA (RT-PCR) Not Detected (Not Detect.) 10/13/20 10/13/20 10/13/20 Range/Units 12:58 13:43 14:45 WBC (4.8-10.8) X10*3/uL RBC (4.20-5.50) X10*6/uL Hgb (12.0-16.0) g/dl Hct (37-47) % MCV (80-98) fL MCH (27.0-33.0) pg MCHC (31.0-35.0) g/dl RDW (11.0-16.0) % Plt Count (160-400) X10*3/uL MPV (9.4-12.3) fL Immature Gran % (Auto) (0.0-0.4) % Neut % (Auto) (45-73) % Lymph % (Auto) (20-40) % Allen % (Auto) (2-11) % Eos % (Auto) (0-4) % Baso % (Auto) (0-2) % Lymph # (Auto) (1.2-4.9) X10*3/uL Allen # (Auto) (0.1-1.2) X10*3/uL Eos # (Auto) (0.0-0.4) X10*3/uL Baso # (Auto) (0.0-0.2) X10*3/uL Abs Immat Gran (auto) (0.00-0.03) X10*3/uL Absolute Neuts (auto) (2.0-8.3) X10*3/uL Absolute Nucleated RBC (0.0-0.012) X10*3/uL Nucleated RBC % (auto) (0.0-0.2) /100WBC PT (10.8-13.0) SEC INR (0.9-1.1) Sodium 140 (135-145) mmol/L Potassium 4.1 D (3.3-5.1) mmol/l Chloride 107 (96-108) mmol/L Carbon Dioxide 21 L (22-29) mmol/L Anion Gap 16 (12-20) BUN 19 H (9-16) mg/dL Creatinine 1.20 (0.5-1.4) mg/dL Estim Creat Clear Calc 54.7 Estimated GFR 47 Random Glucose 105 D (60-115) mg/dL Calcium 8.0 L (8.4-10.2) mg/dL Magnesium (1.6-2.6) mg/dL Ferritin (10-250) ng/mL Total Bilirubin (0.0-1.0) mg/dL Direct Bilirubin (0.0-0.5) mg/dL AST (5-31) U/L ALT (0-31) U/L Alkaline Phosphatase (39-117) U/L Lactate Dehydrogenase (122-220) U/L Troponin I High Sens (<3.5-17.0) ng/L B-Natriuretic Peptide (<100) pg/mL Total Protein (6.5-8.0) g/dL Albumin (3.5-5.0) g/dL Procalcitonin ng/mL Urine Color STRAW Urine Appearance CLEAR Urine pH 7.0 (5.0-8.0) Ur Specific [place] 1.010 (1.005-1.025) Urine Protein NEG (NEG-TRACE) MG/DL Urine Glucose (UA) NEG (NEG) MG/DL Urine Ketones NEG (NEG) MG/DL Urine Blood NEG (NEG) Urine Nitrite NEG (NEG) Ur Leukocyte Esterase NEG (NEG) Stool Occult Blood POS (NEG) Respiratory Panel [place] Adenovirus (Rapid PCR) (Not Detect.) B.pert (TEM-PCR) (Not Detect.) B.parapertussis DNA PCR (Not Detect.) C. pneumoniae DNA (PCR) (Not Detect.) Coronavirus OC43 (PCR) (Not Detect.) Coronavirus HKU1 (PCR) (Not Detect.) Coronavirus 229E (PCR) (Not Detect.) Coronavirus NL63 (PCR) (Not Detect.) Human Metapneumovir PCR (Not Detect.) Influenza A (RT-PCR) (Not Detect.) Influenza B (RT-PCR) (Not Detect.) M. pneumoniae (PCR) (Not Detect.) Parainfluenza 1 (PCR) (Not Detect.) Parainfluenza 2 (PCR) (Not Detect.) Parainfluenza 3 (PCR) (Not Detect.) Parainfluenza 4 (PCR) (Not Detect.) RSV (PCR) (Not Detect.) Entero/Rhino (PCR) (Not Detect.) SARS-CoV-2 RNA (RT-PCR) (Not Detect.) Imaging Data Chest x-ray: Attestation: I personally reviewed and interpreted this imaging study as follows: Radiologist's impression: IMPRESSION: No acute disease within the chest. Low lung volumes. CT scan of chest PE protocol/CT scan of abdomen and pelvis with IV contrast: Attestation: I personally reviewed and interpreted this imaging study as follows: Radiologist's impression: IMPRESSION: No evidence of PE. No evidence of aortic dissection or aneurysm. The lungs are clear. Mild constipation. No obstructive process or mass seen. No abnormal retroperitoneal pelvic lymph nodes seen. Status post gastric reduction surgery likely gastric sleeve. Also visualized is small bowel surgery with anastomotic suture line with patent lumen in the left mid quadrant. ECG Data Attestation: I personally reviewed and interpreted this ECG as follows: ECG interpretation date: 10/13/20 ECG interpretation time: 13:28 Interpretation: Normal sinus rhythm with a ventricular rate of 91 with nonspecific T-wave changes no acute ischemic changes noted. Similar compared to prior EKG on 08/15/2020. Critical Care Time Critical Care Time Critical Care Time: Yes Total Critical Care Time: 60 Attestation: I personally attest to this time spent taking care of the patient Discharge Plan Discharge Clinical Impression: Bronchitis, Acute hyperkalemia, Anemia, Occult blood positive stool, Constipation Asthma exacerbation Qualifiers: Asthma severity: moderate Asthma persistence: unspecified Qualified Code(s): J45.901 - Unspecified asthma with (acute) exacerbation Patient Disposition: Home, Self-Care Instructions: Gastrointestinal Bleeding (ED), Constipation (ED), High Fiber Diet (ED), Acute Bronchitis (ED), Hyperkalemia (ED), Bronchospasm (ED), Fleet Enema (ED) Prescriptions: New cyclobenzaprine 10 mg tablet 10 mg PO TID PRN (Reason: muscle spasm) Qty: 10 RF: 0 azithromycin 250 mg tablet See Rx Instructions .ROUTE .COMPLEX Qty: 6 RF: 0 prednisone 20 mg tablet 40 mg PO DAILY 5 Days Qty: 10 RF: 0 oxycodone-acetaminophen [Percocet] 5-325 mg tablet 1 tab PO Q6H PRN (Reason: pain) Qty: 10 RF: 0 albuterol sulfate 90 mcg/actuation HFA aerosol inhaler 1 inh inhalation QID PRN (Reason: shortness of breath or wheezing) Qty: 18 RF: 0 albuterol sulfate 0.63 mg/3 mL solution for nebulization 0.63 mg inhalation QID PRN (Reason: shortness of breath or wheezing) Qty: 90 RF: 0 docusate sodium [Colace] 100 mg capsule 100 mg PO BID Qty: 20 RF: 0 No Action sucralfate 1 gram tablet 4 g PO .qd 30 Days Qty: 120 RF: 1 Eliquis 5 mg tablet 10 mg PO BID 7 Days Qty: 28 RF: 0 oxycodone 5 mg tablet 5 mg PO Q6H PRN (Reason: pain) Qty: 20 RF: 0 prednisone 10 mg tablet 10 mg PO BID RF: 0 cyanocobalamin (vitamin B-12) [Vitamin B-12] 2,500 mcg tablet, sublingual 2,500 mcg sublingual DAILY RF: 0 quetiapine [Seroquel] 300 mg Tablet 300 mg PO DAILY RF: 0 montelukast 10 mg tablet 10 mg PO DAILY RF: 0 zolpidem [Ambien] 10 mg Tablet 10 mg PO BEDTIME PRN (Reason: Insomnia) RF: 0 lorazepam 0.5 mg Tablet 0.5 mg PO DAILY PRN (Reason: Anxiety) RF: 0 escitalopram oxalate 10 mg Tablet 10 mg PO DAILY RF: 0 diclofenac sodium 75 mg tablet,delayed release (DR/EC) 75 mg PO BID RF: 0 cyclobenzaprine 5 mg tablet 5 mg PO TID RF: 0 albuterol sulfate 2.5 mg /3 mL (0.083 %) solution for nebulization 2.5 mg inhalation TID RF: 0 hydroxyzine HCl 25 mg tablet 25 mg PO QID RF: 0 hydrocodone-chlorpheniramine 10-8 mg/5 mL suspension,extended rel 12 hr 5 ml PO Q12H RF: 0 dicyclomine 10 mg capsule 10 mg PO QID PRN (Reason: cramps) RF: 0 cholecalciferol (vitamin D3) [Vitamin D3] 25 mcg (1,000 unit) tablet 25 mcg PO DAILY RF: 0 benzonatate [Tessalon Perles] 100 mg capsule 100 mg PO TID PRN (Reason: cough) Qty: 20 RF: 0 lidocaine [Lidoderm] 5 % adhesive patch,medicated 1 patch topical DAILY MDD remove after 12 hours PRN (Reason: pain) Qty: 30 RF: 0 cyclobenzaprine 5 mg tablet 5 mg PO Q8H PRN (Reason: pain (scale score 7-10)) 5 Days Qty: 14 RF: 0 acetaminophen-codeine 300-15 mg tablet 1 tab PO Q8H PRN (Reason: pain) 3 Days Qty: 9 RF: 0 benzonatate [Tessalon Perles] 100 mg capsule 200 mg PO BID PRN (Reason: cough) 30 Days Qty: 60 RF: 3 Referrals: Claudia Villatoro MD [Primary Care Provider] - 2 days Print Language: Grenadian
--- NOTE | 2020-10-13 11:25 | ECG_ITS ---
Test Reason : SOB Blood Pressure : / mmHG Vent. Rate : 091 BPM Atrial Rate : 091 BPM P-R Int : 132 ms QRS Dur : 092 ms QT Int : 398 ms P-R-T Axes : 047 020 010 degrees QTc Int : 489 ms Normal sinus rhythm Nonspecific T wave abnormality Abnormal ECG When compared with ECG of 15-AUG-2020 19:39, No significant change was found Referred By: Maranda Brothers Electronically Signed By:ISIDORO MORALES
[2020-10-13] MEDS: guaiFEN/Codeine SF 200/20/10ML 10 ML LIQUID 5 ML PO (11:31)
[2020-10-13] MEDS: methylPREDNISolone Sod Succ/PF 125 MG/2 ML VIAL IVPUSH (11:38)
[2020-10-13] MEDS: Metoclopramide HCl 10 MG/2 ML VIAL IVPUSH (11:38)
[2020-10-13] MEDS: Cyclobenzaprine HCl 5 MG TABLET PO (11:39)
[2020-10-13 11:43] VITALS: BP 109/48; PULSE 62; RESP 20; TEMP 36.8; O2SAT 98
[2020-10-13 11:44] LABS: MANUAL DIFF FLAG NO
[2020-10-13 11:46] LABS: Basophils Percent Auto 0.3 % (0-2); Eosinophils Absolute Auto 0.3 X10*3/uL (0.0-0.4); Eosinophils Percent Auto 4.7 % (0-4); Hematocrit 29.7 % (37-47); Hemoglobin 8.8 g/dl (12.0-16.0); Imm Gran Abs Auto 0.02 X10*3/uL (0.00-0.03); Imm Gran Pct Auto 0.3 % (0.0-0.4); Lymphocytes Absolute Auto 1.9 X10*3/uL (1.2-4.9); Mean Corpuscular HGB Conc 29.6 g/dl (31.0-35.0); Mean Corpuscular Hemoglobin 23.3 pg (27.0-33.0); Mean Corpuscular Volume 78.8 fL (80-98); Mean Platelet Volume 9.1 fL (9.4-12.3); Monocytes Absolute Auto 0.6 X10*3/uL (0.1-1.2); Monocytes Percent Auto 9.2 % (2-11); Neutrophils Absolute Auto 3.9 X10*3/uL (2.0-8.3); Neutrophils Percent Auto 57.5 % (45-73); Platelet Count 381 X10*3/uL (160-400); Red Blood Count 3.77 X10*6/uL (4.20-5.50); Red Cell Distribution Width 17.2 % (11.0-16.0); White Blood Count 6.7 X10*3/uL (4.8-10.8)
--- NOTE | 2020-10-13 11:47 | PC.NURSE ---
x1 call to rt for inhaler treatment
[2020-10-13 11:50] LABS: INTERNATIONAL NORM RATIO 1.1 (0.9-1.1); Prothrombin Time 13.5 SEC (10.8-13.0)
[2020-10-13 11:55] LABS: Adenovirus PCR Not Detected (Not Detect.); Bordetella parapertussis PCR Not Detected (Not Detect.); Bordetella pertussis PCR Not Detected (Not Detect.); Chlamydia pneumoniae PCR Not Detected (Not Detect.); Coronavirus 229E PCR Not Detected (Not Detect.); Coronavirus HKU1 PCR Not Detected (Not Detect.); Coronavirus NL63 PCR Not Detected (Not Detect.); Coronavirus OC43 PCR Not Detected (Not Detect.); Human metapneumovirus PCR Not Detected (Not Detect.); Influenza A PCR Not Detected (Not Detect.); Influenza B PCR Not Detected (Not Detect.); Mycoplasma pneumoniae PCR Not Detected (Not Detect.); Parainfluenza 1 PCR Not Detected (Not Detect.); Parainfluenza 2 PCR Not Detected (Not Detect.); Parainfluenza 3 PCR Not Detected (Not Detect.); Parainfluenza 4 PCR Not Detected (Not Detect.); RSV PCR Not Detected (Not Detect.); Rhino/Enterovirus PCR Not Detected (Not Detect.); SARS-CoV-2 PCR Not Detected (Not Detect.)
[2020-10-13] MEDS: Albuterol Sulfate (0.083%) 2.5 MG/3 ML VIAL.NEB 10 MG INHALE (12:03)
[2020-10-13 12:08] VITALS: PULSE 70; O2SAT 100
[2020-10-13 12:25] LABS: B Type Natriuretic Peptide 160 pg/mL (<100); Troponin-I High Sensitivity < 3.5 ng/L (<3.5-17.0)
[2020-10-13 12:29] LABS: Alanine Aminotransferase 8 U/L (0-31); Albumin Level 3.3 g/dL (3.5-5.0); Alkaline Phosphatase 59 U/L (39-117); Anion Gap 13 (12-20); Aspartate Amino Transferase 17 U/L (5-31); Bilirubin Direct < 0.2 mg/dL (0.0-0.5); Bilirubin Total 0.2 mg/dL (0.0-1.0); Blood Urea Nitrogen 21 mg/dL (9-16); Calcium 8.5 mg/dL (8.4-10.2); Carbon Dioxide 25 mmol/L (22-29); Chloride 106 mmol/L (96-108); Creatinine Clr Calc Pharmacy 53.7; Estimated Glomerular Filt Rate 46; Glucose Random 67 mg/dL (60-115); Lactate Dehydrogenase 233 U/L (122-220); Magnesium 2.2 mg/dL (1.6-2.6); Potassium 5.7 mmol/l (3.3-5.1); Sodium 138 mmol/L (135-145)
[2020-10-13 12:40] LABS: Ferritin 9 ng/mL (10-250)
[2020-10-13 13:14] LABS: Glucose Urine UA NEG (NEG); Leukocyte Esterase Urine NEG (NEG); Nitrite Urine NEG (NEG); Urine Blood NEG (NEG); Urine Ketones NEG (NEG); Urine Protein NEG (NEG-TRACE)
[2020-10-13 13:15] LABS: Appearance Urine CLEAR; Color Urine STRAW
--- NOTE | 2020-10-13 13:16 | CT_ITS ---
EXAMINATION: CTA CHEST AND CTA ABDOMEN AND PELVIS. CLINICAL INFORMATION: History of PE on atelectasis. Worsening shortness of breath COMPARISON: None. TECHNIQUE: 5 limited thin axial and reformatted 3 mm thin sagittal and coronal image images of chest, abdomen and pelvis were obtained as part of PE protocol following IV 85 mL Omnipaque 350. DLP 1086. FINDINGS: CHEST: There is good opacification of pulmonary artery and its branches without any intraluminal filling defect or narrowing. The thoracic aorta is of normal caliber. No evidence of dissection or aneurysm seen. The heart size is normal. There is no pericardial effusion. The central trachea and the bronchi widely patent. No abnormal size mediastinal or hilar lymph nodes seen. The lungs are well-expanded and clear of acute pneumonic process. There is no pulmonary nodule or mass. There is no pleural effusion, thickening or calcification. The axilla and the chest wall appears unremarkable. ABDOMEN AND PELVIS: The liver is homogeneous in density, normal size and contour. No focal lesion or intrahepatic ductal dilatation seen. The gallbladder has been removed. Visualized spleen, pancreas and bilateral adrenal glands are unremarkable. Both kidneys are normal size, shape and position. There are bilateral renal cysts. No radiopaque renal calculi or hydronephrosis seen. There is gastric bypass surgery likely gastric sleeve surgery in the epigastric region. The stomach is nondistended. The small bowel loops are normal caliber. There is scattered stool and gas seen throughout the colon without any significant distention. Small anastomotic suture site is widely patent in left upper quadrant. There is no free fluid or free air seen. The abdominal aorta is normal caliber. No retroperitoneal or intraperitoneal lymph nodes seen. Abdominal wall is unremarkable. Imaging through the pelvis reveals unremarkable nondistended urinary bladder. The uterus is not visualized. The cervix is elongated and normal appearing. There is no free fluid or abnormal pelvic lymph nodes. Bone windows reveal no lytic or sclerotic process. The paravertebral soft tissues are normal. CT/CT angio chest PE protocol IMPRESSION: No evidence of PE. No evidence of aortic dissection or aneurysm. The lungs are clear. Mild constipation. No obstructive process or mass seen. No abnormal retroperitoneal pelvic lymph nodes seen. Status post gastric reduction surgery likely gastric sleeve. Also visualized is small bowel surgery with anastomotic suture line with patent lumen in the left mid quadrant.
[2020-10-13] MEDS: Sodium Polystyrene Sulfon/Sorb 15 GM/60 ML ORAL.SUSP 30 GM PO (13:42)
[2020-10-13] MEDS: oxyCODONE HCl Immed Release 5 MG TABLET PO (13:42)
[2020-10-13 13:53] LABS: Procalcitonin 0.06 ng/mL
[2020-10-13 13:54] LABS: OBS1 POS (NEG)
[2020-10-13 13:55] LABS: OBS Int Ctl Valid YES
[2020-10-13] MEDS: iohexoL 350 MG/ML 100 ML INFUS..BTL IV (14:22)
[2020-10-13 14:47] VITALS: BP 115/52; PULSE 92; RESP 16; TEMP 37.6; O2SAT 98
[2020-10-13 15:15] LABS: Anion Gap 16 (12-20); Blood Urea Nitrogen 19 mg/dL (9-16); Carbon Dioxide 21 mmol/L (22-29); Chloride 107 mmol/L (96-108); Creatinine Clr Calc Pharmacy 54.7; Estimated Glomerular Filt Rate 47; Glucose Random 105 mg/dL (60-115); Potassium 4.1 mmol/l (3.3-5.1); Sodium 140 mmol/L (135-145)
== END 2020-10-13 16:19 | disposition home or self-care (01) ==
PROVIDERS: Physician Assistant Medical; Emergency Provider Emergency Medicine; PCP Internal Medicine
DX: J40 Bronchitis, not specified as acute or chronic (principal); J06.9 Acute upper respiratory infection, unspecified; E87.5 Hyperkalemia; D64.9 Anemia, unspecified; K59.00 Constipation, unspecified; Z79.01 Long term (current) use of anticoagulants; Z79.899 Other long term (current) drug therapy; Z86.711 Personal history of pulmonary embolism
CPT/HCPCS: 36415; 71045; 71275; 74177; 80048; 80076; 81003; 82272; 82728; 83615; 83735; 83880; 84145; 84484; 85025; 85610; 87633; 93005; 94644; 96374; 96375; 99284; 99291; J2765; J2930; Q9967

== ENCOUNTER → 2020-10-17 14:32 | Outpatient (BNVA) | payer OTHER, SELFPAY | PROVIDERS: PCP Internal Medicine; Visit Provider Hospitalist | DX: Z76.89 Persons encountering health services in other specified circumstances (principal) ==

== ENCOUNTER 2020-10-28 13:50 | Outpatient (REF) | payer OTHER, SELFPAY | END 2020-10-28 13:51 | disposition home or self-care (01) | LOC: HO.MDS 13:50 | PROVIDERS: PCP Internal Medicine; Visit Provider Hospitalist | DX: D80.1 Nonfamilial hypogammaglobulinemia (principal) | CPT/HCPCS: 96365; 96366 ==

== ENCOUNTER → 2020-11-05 08:56 | Outpatient (BNVA) | payer OTHER, SELFPAY | PROVIDERS: PCP Internal Medicine; Visit Provider Internal Medicine | DX: R07.2 Precordial pain (principal); R06.02 Shortness of breath; I27.82 Chronic pulmonary embolism; E66.01 Morbid (severe) obesity due to excess calories; E11.8 Type 2 diabetes mellitus with unspecified complications; I10 Essential (primary) hypertension | CPT/HCPCS: 99202 ==

== ENCOUNTER 2020-11-08 13:38 | Outpatient (REF) | payer OTHER, SELFPAY | END 2020-11-08 13:39 | disposition home or self-care (01) | LOC: HO.MDS 13:38 | PROVIDERS: PCP Internal Medicine; Visit Provider Internal Medicine Medical Oncology | DX: D50.9 Iron deficiency anemia, unspecified (principal) | CPT/HCPCS: 96365; J2916 ==

== ENCOUNTER 2020-11-15 10:55 | Outpatient (REF) | payer OTHER, SELFPAY | END 2020-11-15 10:56 | disposition home or self-care (01) | LOC: HO.MDS 10:55 | PROVIDERS: PCP Internal Medicine; Visit Provider Internal Medicine Medical Oncology | DX: D50.9 Iron deficiency anemia, unspecified (principal) | CPT/HCPCS: 96365; J2916 ==

== ENCOUNTER → 2020-11-20 15:23 | Outpatient (BNVA) | payer OTHER, SELFPAY | PROVIDERS: PCP Internal Medicine; Visit Provider Nurse Practitioner ==

== ENCOUNTER 2020-11-21 12:41 | Outpatient (REF) | payer OTHER, SELFPAY | END 2020-11-21 12:42 | disposition home or self-care (01) | LOC: HO.MDS 12:41 | PROVIDERS: PCP Internal Medicine; Visit Provider Internal Medicine Medical Oncology | DX: D50.9 Iron deficiency anemia, unspecified (principal) | CPT/HCPCS: 96365; J2916 ==

== ENCOUNTER 2020-11-25 08:55 | Outpatient (REF) | payer OTHER, SELFPAY | END 2020-11-25 08:56 | disposition home or self-care (01) | LOC: HO.MDS 08:55 | PROVIDERS: PCP Internal Medicine; Visit Provider Hospitalist | DX: D80.1 Nonfamilial hypogammaglobulinemia (principal) | CPT/HCPCS: 96365; 96366 ==

== ENCOUNTER → 2020-11-27 08:16 | Outpatient (REF) | payer OTHER, SELFPAY ==
--- NOTE | 2020-11-27 | NM_ITS ---
Lexiscan Myocardial perfusion study Indication: Chest pain, assess for coronary disease and ischemia Technique: The patient was brought in for a Lexiscan perfusion study on 11/27/2020 and was injected 0.4 mg of Lexiscan intravenously. Within a minute of this injection 30 mCi of sestamibi was given intravenously. Images were obtained using the SPECT gamma camera interlaced with the gating device. Images were obtained in supine position. Resting perfusion study was performed on 11/28/2020. Patient was administered 30 mCi of sestamibi intravenously at rest. Images were then obtained in supine position. Total DLP 124mGy-cm. Images were processed with the software and compared side to side in short axis, horizontal long axis and vertical long axis views. Findings: Raw acquisition was reviewed. The stress perfusion study showed slight decrease in tracer uptake in the distal lateral wall. This seems to improve with CT attenuation correction. However in the attenuation corrected images, there is distal septal and adjacent apical defect that could be artifactual ,as this area is well perfused and the uncorrected images. The gated study shows normal LV systolic function with calculated LVEF of 55%. LV cavity is normal in size. The gated study shows normal wall thickening and contraction of segments. Resting study shows no significant perfusion abnormality. Gating at rest reveals normal wall motion with ejection fraction at 73%. The findings are consistent with mild reversible distal lateral defect, possibly artifactual. NM/NM hong perf SPECT rest & str Impression: 1. Myocardial perfusion imaging study shows no definitive ischemia. Small reversible defect in the distal lateral wall that could be from soft tissue attenuation. Based on normal contractility, suspect artifactual. Less likely to be a true defect. 2. Gated LVEF is 55% during stress and 73% during rest. 3. Transient ischemic dilatation not present. EKG component of the test reported separately.
--- NOTE | 2020-11-27 08:21 | CA_ITS ---
Transthoracic Echocardiogram Patient (Last, First, Middle): Maye Dye, Gender: Female Date of : 1970 Age: 50 Procedure Date: 11/27/2020 Procedure Type: Transthoracic Echocardiogram Location: OP Height: 149.86 cm Weight: 83.92 kg BSA: 1.78 m2 Heart Rate: bpm BP: 120 / 70 mmHg White Lead Filterer: DONNA Gutierrez MD: Gumaro Roberts MD Outsole Caser: Dusty Alonzo MD Symptoms: R07.2 - Precordial pain Study Quality: Fair/Contrast ECG Rhythm: Sinus Conclusions: - Essentially normal study Findings Procedure Information Contrast agent, definity, is being given per protocol without apparent complications. Left Ventricle Normal left ventricular size, thickness, and systolic function. The visually estimated ejection fraction is between 55-60%. Diastolic function is normal for age. Right Ventricle Normal right ventricular cavity size and systolic function. Atria Both atria are normal in size. Interatrial shunt cannot be excluded. Aortic Valve The aortic valve structure and function is likely normal. There is no aortic valve stenosis. There is no aortic valve regurgitation. Mitral Valve Normal mitral valve structure and function. There is no mitral valve regurgitation. There is no mitral valve stenosis. Pulmonic Valve The pulmonic valve is likely normal. Tricuspid Valve Likely normal tricuspid valve structure and function. Tricuspid regurgitation envelope is inadequate for calculation of right ventricular systolic pressure. Great Vessels All visible segments of the aorta are normal in size. The pulmonary artery was not well visualized. Venous The inferior vena cava is normal in size and collapses greater than 50% with inspiration. Pericardium/Pleural There is no evidence of pericardial effusion. Prior Study Comparison No previous study in the last 5 years for comparison Measurements 2D Linear Measurements IVSd: 0.76 0.6-0.9/0.6-1.0 cm LVIDd: 4.25 3.9-5.3/4.2-5.9 cm LVIDd Index: 2.39 2.4-3.2/2.2-3.1 cm/m2 LVIDs: 2.76 2.0-3.6 cm LVPWd: 0.79 0.7-1.1 cm Ao Root: 3.10 2.1-3.5 cm LA Diam: 3.50 2.7-3.8/3.0-4.0 cm LAIDs Index: 1.97 1.5-2.3 cm/m2 LV Mass: 122.56 67-162/88-224 g LV Mass Index: 68.85 43-95/49-115 g/m2 LVOT Diam: 2.00 3.0+(-)1.3 cm 2D Systolic Function EF 4C: 57.80 >55% EF 2C: 50.60 >55% EF BiP: 55.40 >55% Mitral Valve MV Pk E: 1.05 MV PK A: 0.86 MV Decel Time: 201.00 E/A: 1.20 E'Lateral: 7.07 E'Medial: 8.05 E/E' Med: 13.00 E/E' Lat: 14.90 PHT: 59.00 MVA PHT: 3.73 Decel [place]: 5.22 Aortic Valve AoV Pk Miguel Ángel: 1.35 AoV Mn Miguel Ángel: 0.92 AoV VTI: 0.31 AoV Pk Grad: 7.00 Aov Mn Grad: 4.00 ELVIN Cont.VTI: 2.52 LVOT LVOT Pk Miguel Ángel: 0.97 LVOT Mn Miguel [place]ngel: 0.69 LVOT VTI: 0.25 LVOT Pk Grad: 4.00 LVOT Mn Grad: 2.00 LVOT Diam: 2.00 LVOT Area: 3.14 Diastolic Function MV Pk E: 1.05 MV Pk A: 0.86 E/A: 1.20 E'Medial: 8.05 E/E' Med: 13.00 E' Laterial: 7.07 E/E' Lat: 14.90 Great Vessels Aorta Ao Root-2D: 3.10 2.0-3.7 cm Ao Asc: 2.90 2.1-3.4 cm Ao Arch: 2.30 Updated in Other Vendor System with Status of Final Dusty Alonzo MD electronically signed on 11/27/2020 2:12:13 PM with status of Final
--- NOTE | 2020-11-27 08:21 | CA_ITS ---
Acquisition Time: 2020-11-27 09:45:52 Total Exercise Time: 00:02:00 Test Indications: Precordial Chest pain Medications: Protocol: LEXISCAN Max HR: 091 BPM 53% of Pred: 169 BPM Max BP: 122/082 mmHG Max Work Load: 1.0 METS Pharmacological stress test with Lexiscan injection, while sitting and kicking her legs, without anginal symptoms, without arrythmia, with normotensive response to injection, with nondiagnostic EKG for ischemia. Nuclear images pending. Test reviewed with Dr Alonzo Referred By: Gumaro Roberts Overread By: CARLIN LOVING
== END ==
LOC: HO.CARD 08:16
PROVIDERS: PCP Internal Medicine; Visit Provider Internal Medicine
DX: R07.2 Precordial pain (principal); I20.9 Angina pectoris, unspecified
CPT/HCPCS: 78452; 93017; 93306; A9500; J0280; J2785; Q9957

== ENCOUNTER 2020-11-28 12:27 | Outpatient (REF) | payer OTHER, SELFPAY ==
[2020-11-28 12:44] LABS: MANUAL DIFF FLAG NO
[2020-11-28 12:48] LABS: Basophils Percent Auto 0.3 % (0-2); Eosinophils Absolute Auto 0.3 X10*3/uL (0.0-0.4); Eosinophils Percent Auto 4.2 % (0-4); Hematocrit 34.8 % (37-47); Hemoglobin 10.2 g/dl (12.0-16.0); Imm Gran Abs Auto 0.03 X10*3/uL (0.00-0.03); Imm Gran Pct Auto 0.5 % (0.0-0.4); Lymphocytes Absolute Auto 1.8 X10*3/uL (1.2-4.9); Lymphocytes Percent Auto 29.5 % (20-40); Mean Corpuscular HGB Conc 29.3 g/dl (31.0-35.0); Mean Corpuscular Hemoglobin 24.5 pg (27.0-33.0); Mean Corpuscular Volume 83.7 fL (80-98); Mean Platelet Volume 9.3 fL (9.4-12.3); Monocytes Absolute Auto 0.5 X10*3/uL (0.1-1.2); Monocytes Percent Auto 7.5 % (2-11); Neutrophils Absolute Auto 3.5 X10*3/uL (2.0-8.3); Platelet Count 283 X10*3/uL (160-400); Red Blood Count 4.16 X10*6/uL (4.20-5.50); Red Cell Distribution Width 25.5 % (11.0-16.0)
== END 2020-11-28 12:28 | disposition home or self-care (01) ==
LOC: HO.MDS 12:27
PROVIDERS: PCP Internal Medicine; Visit Provider Internal Medicine Medical Oncology
DX: D50.9 Iron deficiency anemia, unspecified (principal)
CPT/HCPCS: 36415; 85025; 96365; J2916

== ENCOUNTER → 2020-12-02 09:11 | Outpatient (BNVA) | payer OTHER, SELFPAY | PROVIDERS: PCP Internal Medicine; Visit Provider Hospitalist | DX: J04.2 Acute laryngotracheitis (principal); J45.909 Unspecified asthma, uncomplicated; B34.9 Viral infection, unspecified; I27.82 Chronic pulmonary embolism; D80.1 Nonfamilial hypogammaglobulinemia | CPT/HCPCS: 99212 ==

== ENCOUNTER 2020-12-02 09:33 | Emergency (ER) | payer OTHER, SELFPAY ==
[2020-12-02 09:50] VITALS: BP 107/70; PULSE 93; RESP 22; TEMP 37.2; O2SAT 98; BMI 37.3
--- NOTE | 2020-12-02 10:02 | XR_ITS ---
EXAMINATION: XR CHEST CLINICAL INFORMATION: Cough. COMPARISON: Chest 10/13/2020 TECHNIQUE: Frontal view of the chest was obtained. FINDINGS: The lungs are well-expanded and clear. Heart size and pulmonary vascularity is normal. No gross bony abnormality seen. XR/XR chest 1V IMPRESSION: Mild cardiomegaly. Hypoexpanded lungs with no acute process.
--- NOTE | 2020-12-02 10:02 | ED.URI ---
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 and corporate development officer Mode of arrival: ambulatory Limitations: no limitations History of Present Illness MD elicited complaint: cough, sore throat and rhinorrhea Pertinent past history: asthma Onset (ago): day(s) (3) Consistency: constant Severity: moderate Description of mucous: clear Able to tolerate fluids by mouth: Yes Exacerbating factors: swallowing Relieving factors: nothing Associated symptoms: fever, chills, myalgias, sore throat and cough Related Data Home Medications Medication Instructions Recorded Confirmed cyanocobalamin (vitamin B-12) 2,500 mcg SUBLINGUAL DAILY 08/02/20 11/05/20 [Vitamin B-12] montelukast 10 mg PO DAILY 08/02/20 11/05/20 prednisone 10 mg PO DAILY 08/02/20 11/05/20 quetiapine [Seroquel] 300 mg PO DAILY 08/02/20 11/05/20 zolpidem [Ambien] 10 mg PO BEDTIME PRN 08/02/20 11/05/20 cholecalciferol (vitamin D3) 25 mcg PO DAILY 08/15/20 11/05/20 [Vitamin D3] hydrocodone-chlorpheniramine 5 ml PO Q12H 08/15/20 11/05/20 apixaban 5 mg tablet 5 mg PO BID 11/05/20 11/05/20 hyberippdf-kzprlltlzwurq-giymswsi 1 tab PO Q4H 11/05/20 11/05/20 50 mg-325 mg-40 mg tablet cyanocobalamin (vitamin B-12) 1,000 mcg PO DAILY 11/05/20 11/05/20 1,000 mcg tablet lorazepam 0.5 mg tablet 0.5 mg PO DAILY PRN 11/05/20 11/05/20 losartan 50 mg tablet 50 mg PO DAILY 11/05/20 11/05/20 omeprazole 20 mg capsule,delayed 20 mg PO DAILY 11/05/20 11/05/20 release Previous Rx's Medication Instructions Recorded sucralfate 1 gram tablet 4 g PO .qd 30 Days #120 tab 08/23/20 acetaminophen-codeine 1 tab PO Q8H PRN 3 Days #9 tab 09/09/20 lidocaine [Lidoderm] 1 patch TOPICAL DAILY PRN #30 ea 09/09/20 MDD remove after 12 hours albuterol sulfate 1 inh INHALATION QID PRN #18 g 10/13/20 gabapentin 300 mg capsule 600 mg PO BEDTIME 30 Days #60 cap 10/17/20 dicyclomine 10 mg capsule 20 mg PO QID PRN 30 Days #240 cap 11/27/20 azithromycin 500 mg tablet 500 mg PO DAILY 3 Days #3 tab 12/02/20 hydrocodone-homatropine 5 ml PO Q6H PRN #60 ml 12/02/20 melatonin 5 mg capsule 5 mg PO .nightly 30 Days #30 cap 12/02/20 omeprazole 20 mg capsule,delayed 20 mg PO DAILY 30 Days #30 cap 12/02/20 release prednisone 20 mg tablet 20 mg PO DAILY 10 Days #15 tab 12/02/20 Allergies Allergy/AdvReac Type Severity Reaction Status Date / Time No Known Allergies Allergy Verified 12/02/20 09:22 Review of Systems Review of Systems: Constitutional : No Weight loss, pos Fever, pos Chills, No Fatigue, No Malaise ENT/Mouth : pos sore throat, No Rhinorrhea Eyes: No Eye Pain, No Swelling, No Redness Cardiovascular : No Chest Pain, No SOB, No Dyspnea on Exertion, No Orthopnea, No Edema, No Palpitations Respiratory : pos Cough, No Sputum, No Wheezing Gastrointestinal : No Nausea, No Vomiting, No Diarrhea, No Constipation, No abdominal Pain, No Hematochezia, No Melena Genitourinary : No Dysuria, No Urinary Frequency, No Hematuria, Musculoskeletal : No joint pain, pos Myalgias, No Joint Swelling Skin : No Skin Lesions, No rash Neuro : No Weakness, No Numbness, No Dizziness, pos Headache Psych : No Anxiety/Panic, No Depression Heme/Lymph: No Bruising, No Bleeding,No Lymphadenopathy Endocrine : No Polyuria, No Polydipsia All other systems reviewed and are negative PMFSH Past Medical History Attestation statement: The following information was validated with the patient. Medical History (Updated 12/02/20 @ 12:03 by Lida García DO) Anemia Arthritis Asthma Back pain Depression Diet-controlled diabetes mellitus Essential hypertension Fibromyalgia Hypogammaglobulinemia Hypothyroidism Laryngotracheitis Migraines Morbid obesity Pleuritic chest pain Pulmonary embolism Sleep apnea TIA (transient ischemic attack) Type 2 diabetes mellitus with unspecified complications Surgical History History of bariatric surgery History of cholecystectomy History of esophagogastroduodenoscopy (EGD) Hx of colonoscopy S/P total abdominal hysterectomy Family History Family History (Updated 11/20/20 @ 15:26 by SANG Donovan) Mother Diabetes Stroke Family/Other Diabetes Father Diabetes Social History Social History Household Members: None Alcohol intake: never Smoking Status: Never smoker Advance Directives: No Advance Directives Information Provided: No service: No Current occupational status: disabled Physical Exam Vital Signs: Vital Signs: Last Vital Signs Temp 98.9 F 12/02/20 09:50 Pulse 93 12/02/20 09:50 Resp 22 H 12/02/20 09:50 BP 107/70 12/02/20 09:50 Pulse Ox 98 12/02/20 09:50 Body Mass Index 37.3 Appearance: Alert. Oriented X3. No acute distress. Eyes: Pupils equal, round and reactive to light. ENT: Pharynx normal. Neck: Normal inspection. Neck supple. CVS: Normal heart rate and rhythm. Pulses normal. Respiratory: No respiratory distress. Breath sounds normal. Abdomen: Soft and nontender. Skin: Skin warm and dry. Normal skin color. Normal skin turgor. Extremities: No lower extremity edema. No calf ttp Neuro: Oriented X 3. No motor deficit. No sensory deficit. Course Course Course Narrative: negative workup stable for DC MDM - URI/Sore Throat MDM Narrative Medical decision making narrative: 50 yo female with HTN, asthma has INH on 20mg prednisone daily, anemia, DM, obesity, PE here with cough/sore throat, chills, body aches, headache x 3 days, denies COVID exposure - will need CXR, COVID swab, given her headaches and eliquis use CT head ordered though likely viral syndrome, she has no focal deficits, she is no wheezing, no hypoxia 98% on RA - dispo per results and findings. she is very much asking for pain medications to control her body aches Lab Data Labs: Lab Results 12/02/20 Range/Units 10:57 Coronavirus (PCR) NEGATIVE (Negative) Influenza Type A (PCR) NEGATIVE (Negative) Influenza Type B (PCR) NEGATIVE (Negative) RSV RNA Qual (PCR) NEGATIVE (Negative) Discharge Plan Discharge Clinical Impression: Viral infection Patient Disposition: Home, Self-Care Instructions: Viral Syndrome (ED) Additional Instructions: return to ED for any worsening symptoms or concerns COVID NEGATIVE Prescriptions: New hydrocodone-homatropine 5-1.5 mg/5 mL (5 mL) syrup 5 ml PO Q6H PRN (Reason: cough) Qty: 60 RF: 0 No Action sucralfate 1 gram tablet 4 g PO .qd 30 Days Qty: 120 RF: 1 dicyclomine 10 mg capsule 20 mg PO QID PRN (Reason: cramps) 30 Days Qty: 240 RF: 3 prednisone 10 mg tablet 10 mg PO DAILY RF: 0 cyanocobalamin (vitamin B-12) [Vitamin B-12] 2,500 mcg tablet, sublingual 2,500 mcg sublingual DAILY RF: 0 quetiapine [Seroquel] 300 mg Tablet 300 mg PO DAILY RF: 0 montelukast 10 mg tablet 10 mg PO DAILY RF: 0 zolpidem [Ambien] 10 mg Tablet 10 mg PO BEDTIME PRN (Reason: Insomnia) RF: 0 hydrocodone-chlorpheniramine 10-8 mg/5 mL suspension,extended rel 12 hr 5 ml PO Q12H RF: 0 cholecalciferol (vitamin D3) [Vitamin D3] 25 mcg (1,000 unit) tablet 25 mcg PO DAILY RF: 0 lidocaine [Lidoderm] 5 % adhesive patch,medicated 1 patch topical DAILY MDD remove after 12 hours PRN (Reason: pain) Qty: 30 RF: 0 acetaminophen-codeine 300-15 mg tablet 1 tab PO Q8H PRN (Reason: pain) 3 Days Qty: 9 RF: 0 albuterol sulfate 90 mcg/actuation HFA aerosol inhaler 1 inh inhalation QID PRN (Reason: shortness of breath or wheezing) Qty: 18 RF: 0 gabapentin [Neurontin] 300 mg capsule 600 mg PO BEDTIME 30 Days Qty: 60 RF: 2 lorazepam 0.5 mg tablet 0.5 mg PO DAILY PRN (Reason: anxiety) RF: 0 losartan 50 mg tablet 50 mg PO DAILY RF: 0 smiojgmmoc-cbiesxjbsyfgl-mrqz 50-325-40 mg tablet 1 tab PO Q4H RF: 0 cyanocobalamin (vitamin B-12) 1,000 mcg tablet 1,000 mcg PO DAILY RF: 0 omeprazole 20 mg capsule,delayed release(DR/EC) 20 mg PO DAILY RF: 0 apixaban 5 mg tablet 5 mg PO BID RF: 0 melatonin 5 mg capsule 5 mg PO .nightly 30 Days Qty: 30 RF: 6 azithromycin 500 mg tablet 500 mg PO DAILY 3 Days Qty: 3 RF: 0 prednisone 20 mg tablet 20 mg PO DAILY 10 Days Qty: 15 RF: 0 omeprazole 20 mg capsule,delayed release(DR/EC) 20 mg PO DAILY 30 Days Qty: 30 RF: 0 Referrals: Claudia Villatoro MD [Primary Care Provider] - 2 days (if not better) Print Language: Sri [place]an
[2020-12-02] MEDS: Benzonatate 100 MG CAPSULE PO (10:16)
--- NOTE | 2020-12-02 10:19 | CT_ITS ---
EXAMINATION: CT HEAD WITHOUT CONTRAST CLINICAL INFORMATION: Headache. The patient is on Eliquis. COMPARISON: Most recent prior CT of the head done on 09/09/2020. TECHNIQUE: Contiguous axial imaging was performed from the skull base to vertex without intravenous administration of contrast. This CT examination was performed using dose optimization techniques as appropriate, variously including the following: *Automated exposure control *Adjustment of mA and/or kV according to patient size (this includes techniques or standardized protocols for targeted exams where dose is matched to indication/reason for exam; i.e. extremities or head) *Use of iterative reconstruction technique DLP: 627.83 mGy-cm FINDINGS: There is no evidence of acute intracranial hemorrhage or territorial infarction. No abnormal mass effect or midline shift is seen. Hua to white matter differentiation is well preserved. No extra-axial fluid collections are identified. The ventricles are normal in size. There is no abnormal attenuation within the brain parenchyma. The soft tissues are normal. The mastoid air cells and visualized portions of the paranasal sinuses are well aerated. Incidental note is made of hyperostosis frontalis interna, unchanged. CT/CT head/brain wo con IMPRESSION: 1. No acute intracranial pathology. Specifically, no CT evidence of any acute intracranial hemorrhage is present, unchanged since 09/09/2020. 2. Incidental note is made of hyperostosis frontalis interna.
[2020-12-02] MEDS: HYDROcodone/Homat 5/1.5/5 ML 5 ML SYRUP PO (10:52)
[2020-12-02 11:55] LABS: Influenza A PCR NEGATIVE (Negative); Influenza B PCR NEGATIVE (Negative); Resp Syncy Virus RNA Qual PCR NEGATIVE (Negative); SARS COV2 PCR INHOUSE NEGATIVE (Negative)
== END 2020-12-02 12:30 | disposition home or self-care (01) ==
PROVIDERS: Emergency Provider Emergency Medicine; PCP Internal Medicine
DX: B34.9 Viral infection, unspecified (principal); Z20.822 Contact with and (suspected) exposure to COVID-19; E11.9 Type 2 diabetes mellitus without complications; I10 Essential (primary) hypertension; J45.909 Unspecified asthma, uncomplicated; Z86.73 Personal history of transient ischemic attack (TIA), and cerebral infarction without residual deficits; Z86.711 Personal history of pulmonary embolism
CPT/HCPCS: 0241U; 36415; 70450; 71045; 99283; 99284

== ENCOUNTER 2020-12-12 05:41 | Emergency (ER) | payer OTHER, SELFPAY ==
--- NOTE | ~2020-12-12 | CT_ITS ---
EXAMINATION: CT ABDOMEN AND PELVIS WITH CONTRAST CLINICAL INFORMATION: Diffuse pain, diarrhea. Possible colitis. COMPARISON: CTA abdomen and pelvis 10/13/2020 TECHNIQUE: Multidetector volumetric images were obtained from the superior aspect of the liver through the pubic symphysis following administration 85 mL of Omnipaque 350 intravenous contrast. Sagittal and coronal reformatted images were obtained on the technologist's workstation. Oral contrast: No This CT examination was performed using dose optimization techniques as appropriate, variously including the following: *Automated exposure control *Adjustment of mA and/or kV according to patient size (this includes techniques or standardized protocols for targeted exams where dose is matched to indication/reason for exam; i.e. extremities or head) *Use of iterative reconstruction technique DLP: 794 mGy-cm FINDINGS: LUNG BASES: The lung bases are clear. There is a small calcified granuloma again seen right anterior medial base. LIVER, GALLBLADDER, AND BILIARY TREE: The liver is within normal size and smooth in contour. No focal hepatic parenchymal lesion or intrahepatic ductal dilatation. Prior cholecystectomy. Common duct unremarkable. PANCREAS: Unremarkable. SPLEEN: Unremarkable. ADRENAL GLANDS: Unremarkable. KIDNEYS AND URETERS: There is no hydronephrosis, hydroureter, or urinary tract calculi, or perinephric stranding. The kidneys enhance symmetrically. Again, there are bilateral renal cysts, largest left upper pole just under 3 cm and of water attenuation on cursor measurement. BLADDER: Unremarkable. GASTROINTESTINAL TRACT: Prior gastric bypass. No bowel obstruction or inflammatory changes in the bowel mesentery. No pneumatosis or free air. No ascites or fluid collection. The appendix is normal. ABDOMINAL WALL: No significant hernia is appreciated. LYMPH NODES: No lymphadenopathy. VASCULAR: Unremarkable. PELVIC VISCERA: Unremarkable. OSSEOUS STRUCTURES: Unremarkable. CT/CT abdomen pelvis w con IMPRESSION: 1. No bowel obstruction or inflammatory changes in bowel or mesentery. 2. Prior cholecystectomy. No ductal dilatation. 3. No hydronephrosis, calculi, or perinephric stranding.
[2020-12-12 05:51] VITALS: BP 130/75; PULSE 72; RESP 20; TEMP 36.8; O2SAT 98; BMI 37.3
--- NOTE | 2020-12-12 05:53 | ED.NAVMDI ---
HPI - Nausea/Vomiting/Diarrhea General Chief complaint: General Medical Stated complaint: Diarrhea Time Seen by Provider: 12/12/20 05:46 Source: patient, old records reviewed and translator and interpreter Mode of arrival: ambulatory Limitations: no limitations History of Present Illness HPI Narrative: 50 yo female with DM, chronic pain, PE on apixaban, asthma here with 1 week of diarrhea states she finished antibiotic for her asthma 1 week ago - has > 6 stools per day c/o body pain and upper abdominal pain MD elicited complaint: diarrhea and abdominal pain Onset (ago): week(s) (1) Description of diarrhea: watery Associated nausea: Yes Associated abdominal pain: Yes Location of pain: epigastric and LUQ Radiation: does not radiate Pain consistency: constant Severity: moderate Quality: cramping Exacerbating factors: none Relieving factors: none Context: recent antibiotic use Associated symptoms: myalgias and nausea/vomiting Related Data Home Medications Medication Instructions Recorded Confirmed cyanocobalamin (vitamin B-12) 2,500 mcg SUBLINGUAL DAILY 08/02/20 12/02/20 [Vitamin B-12] montelukast 10 mg PO DAILY 08/02/20 12/02/20 prednisone 10 mg PO DAILY 08/02/20 12/02/20 quetiapine [Seroquel] 300 mg PO DAILY 08/02/20 12/02/20 zolpidem [Ambien] 10 mg PO BEDTIME PRN 08/02/20 12/02/20 cholecalciferol (vitamin D3) 25 mcg PO DAILY 08/15/20 12/02/20 [Vitamin D3] hydrocodone-chlorpheniramine 5 ml PO Q12H 08/15/20 12/02/20 apixaban 5 mg tablet 5 mg PO BID 11/05/20 12/02/20 prwsqvbbga-wmmztevfdxqjw-nrdjxxpz 1 tab PO Q4H 11/05/20 12/02/20 50 mg-325 mg-40 mg tablet cyanocobalamin (vitamin B-12) 1,000 mcg PO DAILY 11/05/20 12/02/20 1,000 mcg tablet lorazepam 0.5 mg tablet 0.5 mg PO DAILY PRN 11/05/20 12/02/20 losartan 50 mg tablet 50 mg PO DAILY 11/05/20 12/02/20 omeprazole 20 mg capsule,delayed 20 mg PO DAILY 11/05/20 12/02/20 release Previous Rx's Medication Instructions Recorded sucralfate 1 gram tablet 4 g PO .qd 30 Days #120 tab 08/23/20 acetaminophen-codeine 1 tab PO Q8H PRN 3 Days #9 tab 09/09/20 lidocaine [Lidoderm] 1 patch TOPICAL DAILY PRN #30 ea 09/09/20 MDD remove after 12 hours albuterol sulfate 1 inh INHALATION QID PRN #18 g 10/13/20 gabapentin 300 mg capsule 600 mg PO BEDTIME 30 Days #60 cap 10/17/20 dicyclomine 10 mg capsule 20 mg PO QID PRN 30 Days #240 cap 11/27/20 azithromycin 500 mg tablet 500 mg PO DAILY 3 Days #3 tab 12/02/20 hydrocodone-homatropine 5 ml PO Q6H PRN #60 ml 12/02/20 melatonin 5 mg capsule 5 mg PO .nightly 30 Days #30 cap 12/02/20 omeprazole 20 mg capsule,delayed 20 mg PO DAILY 30 Days #30 cap 12/02/20 release prednisone 20 mg tablet 20 mg PO DAILY 10 Days #15 tab 12/02/20 Allergies Allergy/AdvReac Type Severity Reaction Status Date / Time No Known Allergies Allergy Verified 12/02/20 14:53 Review of Systems Review of Systems: Constitutional : No Weight loss, No Fever, No Chills ENT/Mouth : No sore throat, No Rhinorrhea Eyes: No Swelling, No Redness Cardiovascular : No Chest Pain, No SOB, NoEdema Respiratory : No Cough, No Sputum, No Wheezing Gastrointestinal : Positive Nausea, no Vomiting, positive Diarrhea, positive abdominal Pain, No Hematochezia, No Melena Genitourinary : No Dysuria, No Urinary Frequency, No Hematuria, No Urgency Musculoskeletal : No joint pain, No Myalgias, No Joint Swelling Skin : No Skin Lesions, No rash Neuro : No Weakness, No Numbness, No Dizziness, No Headache Psych : No Anxiety/Panic, No Depression Heme/Lymph: No Bruising, No Lymphadenopathy Endocrine : No Polyuria, No Polydipsia All other systems reviewed and are negative. Gastrointestinal: Gastrointestinal: Reports nausea PMFSH Past Medical History Medical History (Updated 12/12/20 @ 06:21 by Lida García DO) Anemia Arthritis Asthma Back pain Depression Diet-controlled diabetes mellitus Essential hypertension Fibromyalgia Hypogammaglobulinemia Hypothyroidism Laryngotracheitis Migraines Morbid obesity Pleuritic chest pain Pulmonary embolism Sleep apnea TIA (transient ischemic attack) Type 2 diabetes mellitus with unspecified complications Surgical History History of bariatric surgery History of cholecystectomy History of esophagogastroduodenoscopy (EGD) Hx of colonoscopy S/P total abdominal hysterectomy Family History Family History (Updated 11/20/20 @ 15:26 by SANG Donovan) Mother Diabetes Stroke Family/Other Diabetes Father Diabetes Social History Social History Household Members: None Alcohol intake: never Smoking Status: Never smoker Advance Directives: No service: No Current occupational status: disabled Physical Exam Vital Signs: Vital Signs: Last Vital Signs Temp 98.3 F 12/12/20 05:51 Pulse 72 12/12/20 05:51 Resp 20 12/12/20 05:51 BP 130/75 12/12/20 05:51 Pulse Ox 98 12/12/20 05:51 Body Mass Index 37.3 Appearance: Alert. Oriented X3. No acute distress. Eyes: Pupils equal, round and reactive to light. ENT: Pharynx normal. Neck: Normal inspection. Neck supple. CVS: Normal heart rate and rhythm. Pulses normal. Respiratory: No respiratory distress. Breath sounds normal. Abdomen: Soft and distended and mild epigastric ttp Skin: Skin warm and dry. Normal skin color. Normal skin turgor. Extremities: No lower extremity edema. No calf ttp Neuro: Oriented X 3. No motor deficit. No sensory deficit. Course Course Course Narrative: signed out pending labs, stool studies, CT scan MDM - Nausea/Vomiting/Diarrhea MDM Narrative Medical decision making narrative: 50 yo female with hx of PE on apixaban, anemia, asthma on steroids - states she just completed antiboitics 1 week ago for her asthma ?azithromycin - just had negative COVID test, patient reports she has back pain body aches and numerous bouts of diarrhea nonbloody x 1 week - she denies fevers/vomiting, reports some abdominal discomfort mostly upper, will obtain labs, CT scan for COVID, gentle hydration and IV morphine for pain though I do believe a lot of her pain is chronic and her office visits note she is at risk for opiate dependence Discharge Plan Discharge Clinical Impression: Diarrhea Prescriptions: No Action sucralfate 1 gram tablet 4 g PO .qd 30 Days Qty: 120 RF: 1 dicyclomine 10 mg capsule 20 mg PO QID PRN (Reason: cramps) 30 Days Qty: 240 RF: 3 prednisone 10 mg tablet 10 mg PO DAILY RF: 0 cyanocobalamin (vitamin B-12) [Vitamin B-12] 2,500 mcg tablet, sublingual 2,500 mcg sublingual DAILY RF: 0 quetiapine [Seroquel] 300 mg Tablet 300 mg PO DAILY RF: 0 montelukast 10 mg tablet 10 mg PO DAILY RF: 0 zolpidem [Ambien] 10 mg Tablet 10 mg PO BEDTIME PRN (Reason: Insomnia) RF: 0 hydrocodone-chlorpheniramine 10-8 mg/5 mL suspension,extended rel 12 hr 5 ml PO Q12H RF: 0 cholecalciferol (vitamin D3) [Vitamin D3] 25 mcg (1,000 unit) tablet 25 mcg PO DAILY RF: 0 lidocaine [Lidoderm] 5 % adhesive patch,medicated 1 patch topical DAILY MDD remove after 12 hours PRN (Reason: pain) Qty: 30 RF: 0 acetaminophen-codeine 300-15 mg tablet 1 tab PO Q8H PRN (Reason: pain) 3 Days Qty: 9 RF: 0 albuterol sulfate 90 mcg/actuation HFA aerosol inhaler 1 inh inhalation QID PRN (Reason: shortness of breath or wheezing) Qty: 18 RF: 0 hydrocodone-homatropine 5-1.5 mg/5 mL (5 mL) syrup 5 ml PO Q6H PRN (Reason: cough) Qty: 60 RF: 0 gabapentin [Neurontin] 300 mg capsule 600 mg PO BEDTIME 30 Days Qty: 60 RF: 2 lorazepam 0.5 mg tablet 0.5 mg PO DAILY PRN (Reason: anxiety) RF: 0 losartan 50 mg tablet 50 mg PO DAILY RF: 0 zriykaiiqw-mzfrjtqbifwmq-bepi 50-325-40 mg tablet 1 tab PO Q4H RF: 0 cyanocobalamin (vitamin B-12) 1,000 mcg tablet 1,000 mcg PO DAILY RF: 0 omeprazole 20 mg capsule,delayed release(DR/EC) 20 mg PO DAILY RF: 0 apixaban 5 mg tablet 5 mg PO BID RF: 0 melatonin 5 mg capsule 5 mg PO .nightly 30 Days Qty: 30 RF: 6 azithromycin 500 mg tablet 500 mg PO DAILY 3 Days Qty: 3 RF: 0 prednisone 20 mg tablet 20 mg PO DAILY 10 Days Qty: 15 RF: 0 omeprazole 20 mg capsule,delayed release(DR/EC) 20 mg PO DAILY 30 Days Qty: 30 RF: 0
[2020-12-12 06:28] VITALS: RESP 20
[2020-12-12] MEDS: Morphine Sulfate 4 MG/ML CARTRIDGE IVPUSH (06:28)
[2020-12-12] MEDS: ondansetron HCL 4 MG/2 ML VIAL IVPUSH (06:28)
[2020-12-12] MEDS: 0.9 % Sodium Chloride 500 ML IV (06:28)
[2020-12-12 06:29] LABS: MANUAL DIFF FLAG NO
[2020-12-12 06:38] LABS: Basophils Percent Auto 0.2 % (0-2); Eosinophils Absolute Auto 0.1 X10*3/uL (0.0-0.4); Eosinophils Percent Auto 0.8 % (0-4); Hematocrit 35.9 % (37-47); Hemoglobin 10.9 g/dl (12.0-16.0); Imm Gran Abs Auto 0.03 X10*3/uL (0.00-0.03); Imm Gran Pct Auto 0.3 % (0.0-0.4); Lymphocytes Absolute Auto 1.2 X10*3/uL (1.2-4.9); Lymphocytes Percent Auto 12.1 % (20-40); Mean Corpuscular HGB Conc 30.4 g/dl (31.0-35.0); Mean Corpuscular Hemoglobin 25.8 pg (27.0-33.0); Mean Corpuscular Volume 85.1 fL (80-98); Mean Platelet Volume 8.6 fL (9.4-12.3); Monocytes Absolute Auto 0.6 X10*3/uL (0.1-1.2); Monocytes Percent Auto 6.1 % (2-11); Neutrophils Absolute Auto 7.9 X10*3/uL (2.0-8.3); Neutrophils Percent Auto 80.5 % (45-73); Platelet Count 309 X10*3/uL (160-400); Red Blood Count 4.22 X10*6/uL (4.20-5.50); White Blood Count 9.8 X10*3/uL (4.8-10.8)
--- NOTE | 2020-12-12 06:39 | PC.NURSE ---
PATIENT ATTEMPTED TO PROVIDE URINE AND STOOL SPECIMEN, BUT IS UNABLE AT THIS TIME. PT STATES I HAVE DIARRHEA EVERY 5 MINUTES FOR 1 WEEK . 20g IV ACCESS ESTABLISHED IN LEFT AC. LABS DRAWN AND COVID SWAB OBTAINED AND SENT FOR ANALYSIS. AWAITING LAB RESULTS. PT REPEATEDLY ASKING FOR PAIN MEDICATION, AND THIS RN TOLD PATIENT THAT SHE WAS JUST MEDICATED FOR PAIN WITH MORPHINE 4MG. WHEN THIS RN IS OUTSIDE OF THE ROOM, PATIENT APPEARS CALM/COOPERATIVE WITH NO DISTRESS. UPON ENTERING ROOM, PATIENT INTERMITTENTLY GROANS AND STATES I CAN'T MOVE DESPITE WALKING WITH A STEADY GAIT MULTIPLE TIMES SINCE ARRIVAL TO ED. AWARE OF THIS. PER , PATIENT HAS A HISTORY OF OPIOID USE/ABUSE AND HAS REPORTEDLY TRIED TO SEEK MULTIPLE SCRIPTS FOR NARCOTICS FROM MULTIPLE PROVIDERS. VITAL SIGNS STABLE, NSR ON MONITOR. WILL CONTINUE TO MONITOR.
[2020-12-12 06:40] LABS: COVID-19 Test Negative (Negative); IDNOW Serial# 9DD0AD1C
[2020-12-12 06:43] LABS: Lactic Acid 1.6 mmol/L (0.5-2.0)
[2020-12-12 06:51] LABS: Prothrombin Time 12.1 SEC (10.8-13.0)
--- NOTE | 2020-12-12 06:51 | PC.NURSE ---
PATIENT REQUESTED WATER. PT AWARE OF NPO STATUS UNTIL LAB RESULTS AND CT SCAN ARE OBTAINED. PT COMPLIANT WITH CARE PLAN, AND WILL CONTINUE TO MONITOR.
[2020-12-12 06:54] LABS: Partial Thromboplastin Time 37.3 SEC (24.1-38.0)
[2020-12-12 07:09] LABS: Alanine Aminotransferase 19 U/L (0-31); Albumin Level 3.9 g/dL (3.5-5.0); Alkaline Phosphatase 65 U/L (39-117); Anion Gap 10 (12-20); Aspartate Amino Transferase 17 U/L (5-31); Bilirubin Direct < 0.2 mg/dL (0.0-0.5); Bilirubin Total 0.2 mg/dL (0.0-1.0); Blood Urea Nitrogen 18 mg/dL (9-16); Calcium 9.5 mg/dL (8.4-10.2); Carbon Dioxide 27 mmol/L (22-29); Chloride 108 mmol/L (96-108); Creatinine Clr Calc Pharmacy 66.5; Estimated Glomerular Filt Rate > 60; Glucose Random 59 mg/dL (60-115); Magnesium 2.2 mg/dL (1.6-2.6); Potassium 4.2 mmol/L (3.3-5.1); Sodium 141 mmol/L (135-145); Total Protein 6.5 g/dL (6.5-8.0)
--- NOTE | 2020-12-12 07:15 | PC.NURSE ---
RN TO RN REPORT GIVEN TO MACIEL CESAR. GLUCOSE 59, PER LAB. CRITICAL RESULT RELAYED TO . PT GIVEN 8 OUNCES OF ORANGE JUICE, SALTINES, AND NEPTALI CRACKERS. MACIEL CESAR ALSO AWARE OF CRITICAL LAB VALUES WITH PLAN TO RE-CHECK BLOOD SUGAR.
[2020-12-12 07:18] LABS: Lipase 27 U/L (8-78)
--- NOTE | 2020-12-12 07:23 | PC.NURSE ---
pt given po orange juice and crackers to eat.
[2020-12-12] MEDS: iohexoL 350 MG/ML 100 ML INFUS..BTL IV (08:44)
[2020-12-12 09:02] LABS: Glucose, Whole Blood 104 mg/dL (60-115)
--- NOTE | 2020-12-12 09:05 | PC.NURSE ---
md aware of poc. pt still cannot provide ua or stool sample. pt requesting food and drink. ok per md. pt given sandwich and juice per request. social media community manager at bedside. pt aware of pending dc. denied having any questions.
== END 2020-12-12 09:25 | disposition home or self-care (01) ==
PROVIDERS: Emergency Provider Emergency Medicine; PCP Internal Medicine
DX: R19.7 Diarrhea, unspecified (principal); R10.12 Left upper quadrant pain; M79.10 Myalgia, unspecified site; Z20.822 Contact with and (suspected) exposure to COVID-19; Z79.899 Other long term (current) drug therapy
CPT/HCPCS: 36415; 74177; 80048; 80076; 82947; 83605; 83690; 83735; 85025; 85610; 85730; 87040; 87635; 96361; 96374; 96375; 99284; J2270; J2405; Q9967

== ENCOUNTER 2020-12-13 12:09 | Outpatient (REF) | payer OTHER, SELFPAY | END 2020-12-13 12:10 | disposition home or self-care (01) | LOC: HO.MDS 12:09 | PROVIDERS: PCP Internal Medicine; Visit Provider Internal Medicine Medical Oncology | DX: D50.9 Iron deficiency anemia, unspecified (principal) | CPT/HCPCS: 96365; J2916 ==

== ENCOUNTER 2020-12-17 12:57 | Outpatient (REF) | payer OTHER, SELFPAY | END 2020-12-17 12:58 | disposition home or self-care (01) | LOC: HO.MDS 12:57 | PROVIDERS: PCP Internal Medicine; Visit Provider Internal Medicine Medical Oncology | DX: D50.9 Iron deficiency anemia, unspecified (principal) | CPT/HCPCS: 96365; J2916 ==

== ENCOUNTER 2020-12-20 20:07 | Emergency (ER) | payer OTHER, SELFPAY ==
--- NOTE | ~2020-12-20 | CT_ITS ---
EXAMINATION: CT ANGIOGRAM OF THE CHEST WITH AND WITHOUT CONTRAST (CT PULMONARY ANGIOGRAM FOR PE) CLINICAL INFORMATION: Reason for Exam syncope, SOB, hx PEs COMPARISON: 10/13/2020 TECHNIQUE: Prior to contrast administration, noncontrast localization images were obtained. Subsequently, multidetector volumetric imaging was performed from the thoracic inlet to below the diaphragms following the administration of 65 mL Omnipaque 350 intravenous contrast. No contrast reaction reported Sagittal, coronal, and MIP oblique sagittal reformatted images were obtained on the CT workstation, uploaded to PACS, and reviewed. This CT examination was performed using dose optimization techniques as appropriate, variously including the following: *Automated exposure control *Adjustment of mA and/or kV according to patient size (this includes techniques or standardized protocols for targeted exams where dose is matched to indication/reason for exam; i.e. extremities or head) *Use of iterative reconstruction technique Total exam dose-length product 427 mGy-cm FINDINGS: QUALITY OF STUDY/CONTRAST BOLUS: Satisfactory. PULMONARY ARTERIES: No central or segmental pulmonary emboli. THORACIC AORTA: No aneurysm or dissection. LUNG: No focal consolidation, nodules or masses. The central airways are patent. PLEURA: No pleural effusion or pneumothorax. MEDIASTINUM: Normal heart size. No pericardial effusion. No hilar or mediastinal lymphadenopathy. No evidence of septal bowing or right heart strain. CHEST WALL/AXILLA: No axillary or internal mammary lymphadenopathy. OSSEOUS STRUCTURES: No acute or suspicious osseous abnormality. UPPER ABDOMEN: Status post Smith[place]-en-Y gastric bypass. There is a small hiatal hernia involving the gastric pouch. Left renal cysts noted. No reflux of contrast into the hepatic veins to suggest elevated right heart pressures. CT/CT angio chest PE protocol IMPRESSION: No pulmonary embolism or other acute intrathoracic abnormality. VTE: negative
--- NOTE | ~2020-12-20 | XR_ITS ---
EXAMINATION: XR CHEST CLINICAL INFORMATION: Chronic cough, worsening. COMPARISON: 12/02/2020 TECHNIQUE: Frontal view of the chest was obtained. FINDINGS: The lungs are well expanded. There is no focal consolidation, edema, or effusion. Mild bronchial wall thickening noted. No pneumothorax. The cardiomediastinal silhouette is within normal limits. No acute osseous abnormality. XR/XR chest 1V IMPRESSION: No consolidation. Bronchial wall thickening can be seen with a small airways process such as asthma or atypical/viral infection. This could also be chronic.
--- NOTE | ~2020-12-20 | CT_ITS ---
EXAMINATION: CT HEAD WITHOUT CONTRAST CLINICAL INFORMATION: Syncope. On Eliquis. COMPARISON: 12/02/2020 TECHNIQUE: Contiguous axial imaging was performed from the skull base to vertex without intravenous contrast. This CT examination was performed using dose optimization techniques as appropriate, variously including the following: * Automated exposure control * Adjustment of mA and/or kV according to patient size (this includes techniques or standardized protocols for targeted exams where dose is matched to indication/reason for exam; i.e. extremities or head) Use of iterative reconstruction technique DLP: 728 mGy-cm. FINDINGS: There is no evidence of acute intracranial hemorrhage or territorial infarction. No abnormal mass effect or midline shift is seen. Hua to white matter differentiation is well preserved. No extra-axial fluid collections are identified. No hydrocephalus. No significant volume loss. There is no abnormal attenuation within the brain parenchyma. The osseous structures and soft tissues are normal. 20 02/04/2006 1002. The mastoid air cells and visualized portions of the paranasal sinuses are well aerated. CT/CT head/brain wo con IMPRESSION: No acute intracranial pathology.
[2020-12-20 23:29] VITALS: BP 107/70; PULSE 74; RESP 20; TEMP 36.7; O2SAT 99; BMI 38.9
--- NOTE | 2020-12-20 23:32 | PC.NURSE ---
AT BEDSIDE FOR EVALUATION.
--- NOTE | 2020-12-20 23:39 | ECG_ITS ---
Test Reason : SOB Blood Pressure : / mmHG Vent. Rate : 080 BPM Atrial Rate : 080 BPM P-R Int : 142 ms QRS Dur : 090 ms QT Int : 384 ms P-R-T Axes : 046 006 004 degrees QTc Int : 442 ms Artifact Normal sinus rhythm Nonspecific T wave abnormality Abnormal ECG When compared to the previous EKG of No significant changes seen Referred By: Danitza Connell Electronically Signed By:Valerio Dean
--- NOTE | 2020-12-20 23:41 | ED_ITS ---
HPI - General Adult General Chief complaint: Dyspnea Stated complaint: Asthma Time Seen by Provider: 12/20/20 23:23 Source: patient Mode of arrival: ambulatory Limitations: no limitations History of Present Illness HPI narrative: Patient comes to emergency room complaining chronic cough, chronic pleuritic pain, syncopal episode today. Patient states that she has been having an chronic for about a year, she was diagnosed with a PE approximately 4 months ago, now on Eliquis, complaining of chronic pleuritic back pain. Patient states this afternoon patient was walking from her kitchen to the living room, patient states she passed out, does not remember much afterwards, unknown if she hit her head, woke up when her rubbed alcohol on her face. Patient complaining of headache for several days now, unrelated to today's fall. Patient states that prior to arrival, she used multiple nebulization treatments with albuterol. MD complaint: Syncopal episode, chronic cough Related Data Home Medications Medication Instructions Recorded Confirmed montelukast 10 mg PO DAILY 08/02/20 12/12/20 quetiapine [Seroquel] 300 mg PO DAILY 08/02/20 12/12/20 zolpidem [Ambien] 10 mg PO BEDTIME PRN 08/02/20 12/12/20 apixaban 5 mg tablet 5 mg PO BID 11/05/20 12/12/20 cyanocobalamin (vitamin B-12) 1,000 mcg PO DAILY 11/05/20 12/12/20 1,000 mcg tablet lorazepam 0.5 mg tablet 0.5 mg PO DAILY PRN 11/05/20 12/12/20 losartan 50 mg tablet 50 mg PO DAILY 11/05/20 12/12/20 alclometasone 1 appl TOPICAL BID PRN 12/12/20 12/12/20 escitalopram oxalate 1 tab PO DAILY 12/12/20 12/12/20 fluocinonide 1 appl TOPICAL BID PRN 12/12/20 12/12/20 hydroxyzine HCl 1 tab PO QID PRN 12/12/20 12/12/20 immun glob G(IgG)-pro-IgA 0-50 40 g IV Q4W 12/12/20 12/12/20 [Privigen] Previous Rx's Medication Instructions Recorded albuterol sulfate 1 inh INHALATION QID PRN #18 g 10/13/20 gabapentin 300 mg capsule 600 mg PO BEDTIME 30 Days #60 cap 10/17/20 dicyclomine 10 mg capsule 20 mg PO QID PRN 30 Days #240 cap 11/27/20 melatonin 5 mg capsule 5 mg PO .nightly 30 Days #30 cap 12/02/20 omeprazole 20 mg capsule,delayed 20 mg PO DAILY 30 Days #30 cap 12/02/20 release oxycodone 5 mg PO Q6H PRN #20 tab 12/12/20 codeine 10 mg-guaifenesin 100 mg/5 10 ml PO Q6H PRN 10 Days #300 ml 12/20/20 mL oral liquid doxycycline hyclate 100 mg capsule 100 mg PO BID 10 Days #20 cap 12/20/20 Allergies Allergy/AdvReac Type Severity Reaction Status Date / Time No Known Allergies Allergy Verified 12/02/20 14:53 Review of Systems Review of Systems: Constitutional : No Weight loss, complaining of fatigue, malaise for 1 year ENT/Mouth : No Hearing loss, No Ear Pain, complaining of chronic coarseness, no rhinorrhea Eyes: No Eye Pain, No Swelling, No Redness, No Foreign Body, No Discharge, No Vision Changes Cardiovascular : No Chest Pain, No Edema, No Palpitations Respiratory : Complaining of chronic cough, dry, chronic shortness of breath Gastrointestinal : No Nausea, No Vomiting, No Diarrhea, No Constipation, No abdominal Pain, No Hematochezia, No Melena Genitourinary : no irregular bleeding, No Dysuria, No Urinary Frequency, No Hematuria, No Urinary Incontinence, No Urgency, No Flank Pain, No Urinary Flow Changes, No Hesitancy Musculoskeletal : Complaining of chronic joint pain, chronic diffuse myalgias Skin : No Skin Lesions, No rash Neuro : No Weakness, No Numbness, headache for 1 week, 1 episode of loss of consciousness today/syncopal episode Psych : No Anxiety/Panic, No Depression, No SI/HI/AH/VH, No Social Issues, Heme/Lymph: Easy bruising Endocrine : No Polyuria, No Polydipsia, No Temperature Intolerance PMFSH Past Medical History Medical History Anemia Arthritis Asthma Back pain Depression Diet-controlled diabetes mellitus Essential hypertension Fibromyalgia Hypogammaglobulinemia Hypothyroidism Laryngotracheitis Migraines Morbid obesity Pleuritic chest pain Pulmonary embolism Sleep apnea TIA (transient ischemic attack) Type 2 diabetes mellitus with unspecified complications Surgical History History of bariatric surgery History of cholecystectomy History of esophagogastroduodenoscopy (EGD) Hx of colonoscopy S/P total abdominal hysterectomy Family History Family History (Updated 11/20/20 @ 15:26 by SANG Donovan) Mother Diabetes Stroke Family/Other Diabetes Father Diabetes Social History Social History Household Members: None Alcohol intake: never Smoking Status: Never smoker Advance Directives: No service: No Current occupational status: disabled Physical Exam Vital Signs: Vital Signs: Last Vital Signs Temp 98.1 F 12/20/20 23:29 Pulse 74 12/20/20 23:29 Resp 20 12/21/20 00:40 BP 107/70 12/20/20 23:29 Pulse Ox 99 12/20/20 23:29 Body Mass Index 38.9 Appearance: Alert. Oriented X3. No acute distress. Eyes: Pupils equal, round and reactive to light. ENT: Pharynx normal. Neck: Normal inspection. Neck supple. No lymph nodes noted. No crepitus CVS: Normal heart rate and rhythm. Pulses normal. Normal S1 and S2 Respiratory: No respiratory distress. Breath sounds normal. No Wheezing. No rales , actively dry coughing, oxygen saturation 99% on room air Abdomen: Soft and nontender. No rigidity. No distention. good BS x4 Skin: Skin warm and dry. Normal skin color. Normal skin turgor. Extremities: No lower extremity edema. No lower extremity edema. No Lacerations. No Rash Neuro: Oriented X 3. No motor deficit. No sensory deficit. Moving all extermities. No slurred speech. Course Course Course Narrative: Patient's lactic acid is 3.3, white blood cell count is normal, patient has no fever, sepsis is not suspected, lactic acid elevation is likely secondary to multiple nebulization treatments. I discussed the chest CTA and head CT with the patient. 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 Medical Decision Making Lab Data Result diagrams: 12/21/20 00:14 12/21/20 00:14 Labs: Lab Results 12/21/20 12/21/20 12/21/20 Range/Units 00:14 00:14 00:14 WBC 10.1 (4.8-10.8) X10*3/uL RBC 4.29 (4.20-5.50) X10*6/uL Hgb 11.4 L (12.0-16.0) g/dl Hct 37.6 (37-47) % MCV 87.6 (80-98) fL MCH 26.6 L (27.0-33.0) pg MCHC 30.3 L (31.0-35.0) g/dl RDW Not Reportable Plt Count 315 (160-400) X10*3/uL MPV 8.8 L (9.4-12.3) fL Immature Gran % (Auto) 1.4 H (0.0-0.4) % Neut % (Auto) 84.7 H (45-73) % Lymph % (Auto) 9.8 L (20-40) % [place] % (Auto) 3.8 (2-11) % Eos % (Auto) 0.1 (0-4) % Baso % (Auto) 0.2 (0-2) % Lymph # (Auto) 1.0 L (1.2-4.9) X10*3/uL [place] # (Auto) 0.4 (0.1-1.2) X10*3/uL Eos # (Auto) 0.0 (0.0-0.4) X10*3/uL Baso # (Auto) 0.0 (0.0-0.2) X10*3/uL Abs Immat Gran (auto) 0.14 H (0.00-0.03) X10*3/uL Absolute Neuts (auto) 8.6 H (2.0-8.3) X10*3/uL Absolute Nucleated RBC 0.000 (0.0-0.012) X10*3/uL Nucleated RBC % (auto) 0.0 (0.0-0.2) /100WBC D-Dimer < 200 NG/ML Sodium 140 (135-145) mmol/L Potassium 4.7 (3.3-5.1) mmol/L Chloride 104 (96-108) mmol/L Carbon Dioxide 25 (22-29) mmol/L Anion Gap 16 (12-20) BUN 14 (9-16) mg/dL Creatinine 0.99 (0.5-1.4) mg/dL Estim Creat Clear Calc 75.7 Estimated GFR 59 Random Glucose 79 (60-115) mg/dL Lactic Acid (0.5-2.0) mmol/L Calcium 9.4 (8.4-10.2) mg/dL Troponin I High Sens (<3.5-17.0) ng/L B-Natriuretic Peptide (<100) pg/mL COVID-19 ([facility]) (Negative) COVID-19 Clin Com 12/21/20 12/21/20 12/21/20 Range/Units 00:14 00:14 01:08 WBC (4.8-10.8) X10*3/uL RBC (4.20-5.50) X10*6/uL Hgb (12.0-16.0) g/dl Hct (37-47) % MCV (80-98) fL MCH (27.0-33.0) pg MCHC (31.0-35.0) g/dl RDW Plt Count (160-400) X10*3/uL MPV (9.4-12.3) fL Immature Gran % (Auto) (0.0-0.4) % Neut % (Auto) (45-73) % Lymph % (Auto) (20-40) % [place] % (Auto) (2-11) % Eos % (Auto) (0-4) % Baso % (Auto) (0-2) % Lymph # (Auto) (1.2-4.9) X10*3/uL [place] # (Auto) (0.1-1.2) X10*3/uL Eos # (Auto) (0.0-0.4) X10*3/uL Baso # (Auto) (0.0-0.2) X10*3/uL Abs Immat Gran (auto) (0.00-0.03) X10*3/uL Absolute Neuts (auto) (2.0-8.3) X10*3/uL Absolute Nucleated RBC (0.0-0.012) X10*3/uL Nucleated RBC % (auto) (0.0-0.2) /100WBC D-Dimer NG/ML Sodium (135-145) mmol/L Potassium (3.3-5.1) mmol/L Chloride (96-108) mmol/L Carbon Dioxide (22-29) mmol/L Anion Gap (12-20) BUN (9-16) mg/dL Creatinine (0.5-1.4) mg/dL Estim Creat Clear Calc Estimated GFR Random Glucose (60-115) mg/dL Lactic Acid 3.3 H* (0.5-2.0) mmol/L Calcium (8.4-10.2) mg/dL Troponin I High Sens < 3.5 (<3.5-17.0) ng/L B-Natriuretic Peptide 29 (<100) pg/mL COVID-19 ([facility]) Negative (Negative) COVID-19 Clin Com See Note Imaging Data Chest CTA: Radiologist's impression: QUALITY OF STUDY/CONTRAST BOLUS: Satisfactory. PULMONARY ARTERIES: No central or segmental pulmonary emboli. THORACIC AORTA: No aneurysm or dissection. LUNG: No focal consolidation, nodules or masses. The central airways are patent. PLEURA: No pleural effusion or pneumothorax. MEDIASTINUM: Normal heart size. No pericardial effusion. No hilar or mediastinal lymphadenopathy. No evidence of septal bowing or right heart strain. CHEST WALL/AXILLA: No axillary or internal mammary lymphadenopathy. OSSEOUS STRUCTURES: No acute or suspicious osseous abnormality. UPPER ABDOMEN: Status post Smitha-en-Y gastric bypass. There is a small hiatal hernia involving the gastric pouch. Left renal cysts noted. No reflux of contrast into the hepatic veins to suggest elevated right heart pressures. CT/CT angio chest PE protocol IMPRESSION: No pulmonary embolism or other acute intrathoracic abnormality. VTE: negative CT scan - head: Radiologist's impression: FINDINGS: There is no evidence of acute intracranial hemorrhage or territorial infarction. No abnormal mass effect or midline shift is seen. Hua to white matter differentiation is well preserved. No extra-axial fluid collections are identified. No hydrocephalus. No significant volume loss. There is no abnormal attenuation within the brain parenchyma. The osseous structures and soft tissues are normal. 20 02/04/2006 1002. The mastoid air cells and visualized portions of the paranasal sinuses are well aerated. CT/CT head/brain wo con IMPRESSION: No acute intracranial pathology. ECG Data Attestation: I personally reviewed and interpreted this ECG as follows: (Sinus rhythm, heart rate 80, no ST segment depressions or elevations, nonspecific T- wave abnormality in lead II, V2 and V3, QTC 442) Discharge Plan Discharge Clinical Impression: Chronic cough, Pleuritic pain Patient Disposition: Home, Self-Care Instructions: Pleurisy (ED), Chronic Cough (ED) Prescriptions: No Action dicyclomine 10 mg capsule 20 mg PO QID PRN (Reason: cramps) 30 Days Qty: 240 RF: 3 codeine-guaifenesin 10-100 mg/5 mL liquid 10 ml PO Q6H PRN (Reason: cough) 10 Days Qty: 300 RF: 0 doxycycline hyclate 100 mg capsule 100 mg PO BID 10 Days Qty: 20 RF: 0 alclometasone 0.05 % cream 1 appl topical BID PRN (Reason: Rash) RF: 0 fluocinonide 0.05 % ointment 1 appl topical BID PRN (Reason: Rash) RF: 0 hydroxyzine HCl 25 mg tablet 1 tab PO QID PRN (Reason: Anxiety) RF: 0 escitalopram oxalate 10 mg tablet 1 tab PO DAILY RF: 0 Privigen 10 % solution 40 g IV Q4W RF: 0 oxycodone 5 mg tablet 5 mg PO Q6H PRN (Reason: Pain, Moderate) Qty: 20 RF: 0 quetiapine [Seroquel] 300 mg Tablet 300 mg PO DAILY RF: 0 montelukast 10 mg tablet 10 mg PO DAILY RF: 0 zolpidem [Ambien] 10 mg Tablet 10 mg PO BEDTIME PRN (Reason: Insomnia) RF: 0 albuterol sulfate 90 mcg/actuation HFA aerosol inhaler 1 inh inhalation QID PRN (Reason: shortness of breath or wheezing) Qty: 18 RF: 0 gabapentin [Neurontin] 300 mg capsule 600 mg PO BEDTIME 30 Days Qty: 60 RF: 2 lorazepam 0.5 mg tablet 0.5 mg PO DAILY PRN (Reason: anxiety) RF: 0 losartan 50 mg tablet 50 mg PO DAILY RF: 0 cyanocobalamin (vitamin B-12) 1,000 mcg tablet 1,000 mcg PO DAILY RF: 0 apixaban 5 mg tablet 5 mg PO BID RF: 0 melatonin 5 mg capsule 5 mg PO .nightly 30 Days Qty: 30 RF: 6 omeprazole 20 mg capsule,delayed release(DR/EC) 20 mg PO DAILY 30 Days Qty: 30 RF: 0
[2020-12-21] VITALS: BP 137/72; PULSE 74; RESP 20; O2SAT 98
[2020-12-21 00:24] LABS: MANUAL DIFF FLAG NO
[2020-12-21 00:40] VITALS: RESP 20
[2020-12-21] MEDS: Morphine Sulfate 4 MG/ML CARTRIDGE IVPUSH (00:40)
[2020-12-21 00:42] LABS: D Dimer < 200 NG/ML
[2020-12-21 00:48] LABS: Lactic Acid 3.3 mmol/L (0.5-2.0)
[2020-12-21 00:50] LABS: Anion Gap 16 (12-20); Blood Urea Nitrogen 14 mg/dL (9-16); Calcium 9.4 mg/dL (8.4-10.2); Carbon Dioxide 25 mmol/L (22-29); Chloride 104 mmol/L (96-108); Creatinine Clr Calc Pharmacy 75.7; Estimated Glomerular Filt Rate 59; Glucose Random 79 mg/dL (60-115); Potassium 4.7 mmol/L (3.3-5.1); Sodium 140 mmol/L (135-145)
[2020-12-21 00:53] LABS: Basophils Percent Auto 0.2 % (0-2); Eosinophils Percent Auto 0.1 % (0-4); Hematocrit 37.6 % (37-47); Hemoglobin 11.4 g/dl (12.0-16.0); Imm Gran Abs Auto 0.14 X10*3/uL (0.00-0.03); Imm Gran Pct Auto 1.4 % (0.0-0.4); Lymphocytes Percent Auto 9.8 % (20-40); Mean Corpuscular HGB Conc 30.3 g/dl (31.0-35.0); Mean Corpuscular Hemoglobin 26.6 pg (27.0-33.0); Mean Corpuscular Volume 87.6 fL (80-98); Mean Platelet Volume 8.8 fL (9.4-12.3); Monocytes Absolute Auto 0.4 X10*3/uL (0.1-1.2); Monocytes Percent Auto 3.8 % (2-11); Neutrophils Absolute Auto 8.6 X10*3/uL (2.0-8.3); Neutrophils Percent Auto 84.7 % (45-73); Platelet Count 315 X10*3/uL (160-400); Red Blood Count 4.29 X10*6/uL (4.20-5.50); White Blood Count 10.1 X10*3/uL (4.8-10.8)
[2020-12-21 00:55] LABS: B Type Natriuretic Peptide 29 pg/mL (<100); Troponin-I High Sensitivity < 3.5 ng/L (<3.5-17.0)
[2020-12-21 01:29] LABS: COVID-19 Test Negative (Negative); IDNOW Serial# 9DD0AD1C
[2020-12-21 02:00] VITALS: BP 128/82; PULSE 77; RESP 20; TEMP 36.8; O2SAT 99
[2020-12-21] MEDS: iohexoL 350 MG/ML 100 ML INFUS..BTL 65 ML IV (02:17)
[2020-12-21 02:22] LABS: Reflex Lactate? Lactic Acid Added
--- NOTE | 2020-12-21 03:06 | PC.NURSE ---
REPEAT LACTIC ACID DRAWN AND SENT FOR ANALYSIS. AWAITING RESULTS.
[2020-12-21 03:31] LABS: ~Lactic Acid-LAB USE ONLY 2.6 mmol/L (0.5-2.0)
[2020-12-21 05:07] LABS: Reflex Lactate? 2 Y
== END 2020-12-21 03:59 | disposition home or self-care (01) ==
PROVIDERS: Emergency Provider Emergency Medicine; PCP Internal Medicine
DX: R07.81 Pleurodynia (principal); R05 Cough; Z79.01 Long term (current) use of anticoagulants; Z79.899 Other long term (current) drug therapy; Z86.711 Personal history of pulmonary embolism; Z20.822 Contact with and (suspected) exposure to COVID-19
CPT/HCPCS: 36415; 70450; 71045; 71275; 80048; 83605; 83880; 84484; 85025; 85379; 87040; 87635; 93005; 96374; 99284; J2270; Q9967

== ENCOUNTER 2020-12-23 13:08 | Outpatient (REF) | payer OTHER, SELFPAY | END 2020-12-23 13:09 | disposition home or self-care (01) | LOC: HO.MDS 13:08 | PROVIDERS: PCP Internal Medicine; Visit Provider Hospitalist | DX: D80.1 Nonfamilial hypogammaglobulinemia (principal) | CPT/HCPCS: 96365; 96366 ==

== ENCOUNTER 2020-12-24 12:07 | Outpatient (REF) | payer OTHER, SELFPAY | END 2020-12-24 12:08 | disposition home or self-care (01) | LOC: HO.MDS 12:07 | PROVIDERS: PCP Internal Medicine; Visit Provider Internal Medicine Medical Oncology | DX: D50.9 Iron deficiency anemia, unspecified (principal) | CPT/HCPCS: 96365; 99212; J2916 ==

== ENCOUNTER 2021-01-01 14:07 | Outpatient (REF) | payer OTHER, SELFPAY | END 2021-01-01 14:08 | disposition home or self-care (01) | LOC: HO.MDS 14:07 | PROVIDERS: PCP Internal Medicine; Visit Provider Internal Medicine Medical Oncology | DX: D50.9 Iron deficiency anemia, unspecified (principal) | CPT/HCPCS: 96365; J2916 ==

== ENCOUNTER 2021-01-10 10:54 | Outpatient (REF) | payer OTHER, SELFPAY ==
[2021-01-10 11:12] LABS: MANUAL DIFF FLAG NO
[2021-01-10 11:19] LABS: Basophils Percent Auto 0.4 % (0-2); Eosinophils Absolute Auto 0.1 X10*3/uL (0.0-0.4); Eosinophils Percent Auto 0.9 % (0-4); Hematocrit 39.4 % (37-47); Hemoglobin 12.2 g/dl (12.0-16.0); Imm Gran Pct Auto 1.2 % (0.0-0.4); Lymphocytes Absolute Auto 1.7 X10*3/uL (1.2-4.9); Lymphocytes Percent Auto 21.1 % (20-40); Mean Corpuscular Volume 90.6 fL (80-98); Mean Platelet Volume 8.3 fL (9.4-12.3); Monocytes Absolute Auto 0.6 X10*3/uL (0.1-1.2); Monocytes Percent Auto 7.1 % (2-11); Neutrophils Absolute Auto 5.6 X10*3/uL (2.0-8.3); Neutrophils Percent Auto 69.3 % (45-73); Platelet Count 270 X10*3/uL (160-400); Red Blood Count 4.35 X10*6/uL (4.20-5.50); Red Cell Distribution Width 25.4 % (11.0-16.0); White Blood Count 8.1 X10*3/uL (4.8-10.8)
== END 2021-01-10 10:55 | disposition home or self-care (01) ==
LOC: HO.MDS 10:54
PROVIDERS: PCP Internal Medicine; Visit Provider Internal Medicine Medical Oncology
DX: D50.9 Iron deficiency anemia, unspecified (principal)
CPT/HCPCS: 36415; 85025; 96365; J2916

== ENCOUNTER 2021-01-20 12:10 | Outpatient (REF) | payer OTHER, SELFPAY | END 2021-01-20 12:11 | disposition home or self-care (01) | LOC: HO.MDS 12:10 | PROVIDERS: PCP Internal Medicine; Visit Provider Hospitalist | DX: D80.1 Nonfamilial hypogammaglobulinemia (principal) | CPT/HCPCS: 96360; 96365; 96366; 96375; J2930 ==

== ENCOUNTER 2021-01-25 22:10 | Emergency (ER) | payer OTHER, SELFPAY ==
--- NOTE | ~2021-01-25 | CT_ITS ---
EXAMINATION: CT ABDOMEN AND PELVIS WITH CONTRAST CLINICAL INFORMATION: Abdominal pain. COMPARISON: 12/12/2020. TECHNIQUE: Contiguous axial thin section helical images of the abdomen and pelvis were performed following the administration of 75 mL of intravenous Omnipaque 350. The data set was reformatted in the coronal and sagittal planes and reviewed on an independent workstation. DLP: 893 mGy-cm. FINDINGS: The visualized lung bases are clear. The visualized portions of the heart are unremarkable. The liver is of normal size and attenuation without focal lesions nor intrahepatic biliary ductal dilation. The patient is status post cholecystectomy. Surgical clips are present. Surgical chain sutures are noted about the stomach in this patient status post gastric bypass. The spleen, pancreas, adrenal glands are unremarkable. Both kidneys are of normal size and attenuation without hydronephrosis or nephrolithiasis. Following the administration of IV contrast, prompt symmetric nephrograms are displayed. There is no abdominal free fluid. There is neither mesenteric nor retroperitoneal lymphadenopathy. Normal unopacified loops of small and large bowel are identified. A normal appendix is identified. There is no pelvic free fluid. The urinary bladder is unremarkable. There is neither pelvic nor inguinal lymphadenopathy. Bone windows: Neither sclerotic nor lytic bone lesions are identified. CT/CT abdomen pelvis w con IMPRESSION: No acute abdominal or pelvic inflammatory or infectious processes. Neither hydronephrosis nor nephrolithiasis. Automated exposure control (Care Dose) Adjustment of the mA and/or kv according to patient size (this includes techniques or standardized protocols for targeted exams where dose is matched to indication / reason for exam; i.e. extremities or head).
[2021-01-25 22:15] VITALS: BP 112/58; PULSE 99; RESP 18; TEMP 36.6; O2SAT 97; BMI 37.3
--- NOTE | 2021-01-25 23:57 | ED_ITS ---
HPI - Abdominal Pain General Chief Complaint: Back Pain/Injury Stated Complaint: Back pain/constipation Time Seen by Provider: 01/25/21 23:54 Source: patient Mode of arrival: ambulatory History of Present Illness HPI narrative: This is a 51-year-old female with multiple comorbidities who presents with chronic lower back pain but now describes abdominal discomfort and states that she has not been able to have a bowel movement for 3 days and that she has been nauseous and vomiting during this time. She denies any urinary symptoms at this time. Related Data Home Medications Medication Instructions Recorded Confirmed montelukast 10 mg PO DAILY 08/02/20 12/24/20 quetiapine [Seroquel] 300 mg PO DAILY 08/02/20 12/24/20 zolpidem [Ambien] 10 mg PO BEDTIME PRN 08/02/20 12/24/20 apixaban 5 mg tablet 5 mg PO BID 11/05/20 12/24/20 cyanocobalamin (vitamin B-12) 1,000 mcg PO DAILY 11/05/20 12/24/20 1,000 mcg tablet lorazepam 0.5 mg tablet 0.5 mg PO DAILY PRN 11/05/20 12/24/20 losartan 50 mg tablet 50 mg PO DAILY 11/05/20 12/24/20 alclometasone 1 appl TOPICAL BID PRN 12/12/20 12/24/20 escitalopram oxalate 1 tab PO DAILY 12/12/20 12/24/20 fluocinonide 1 appl TOPICAL BID PRN 12/12/20 12/24/20 hydroxyzine HCl 1 tab PO QID PRN 12/12/20 12/24/20 immun glob G(IgG)-pro-IgA 0-50 40 g IV Q4W 12/12/20 12/24/20 [Privigen] Previous Rx's Medication Instructions Recorded albuterol sulfate 1 inh INHALATION QID PRN #18 g 10/13/20 dicyclomine 10 mg capsule 20 mg PO QID PRN 30 Days #240 cap 11/27/20 melatonin 5 mg capsule 5 mg PO .nightly 30 Days #30 cap 12/02/20 omeprazole 20 mg capsule,delayed 20 mg PO DAILY 30 Days #30 cap 12/02/20 release oxycodone 5 mg PO Q6H PRN #20 tab 12/12/20 codeine 10 mg-guaifenesin 100 mg/5 10 ml PO Q6H PRN 10 Days #300 ml 12/20/20 mL oral liquid doxycycline monohydrate 100 mg 100 mg PO BID 10 Days #20 cap 12/24/20 capsule gabapentin 300 mg capsule 600 mg PO BID 30 Days #120 cap 12/24/20 lidocaine 5 % topical patch 1 patch TOPICAL DAILY 30 Days #30 12/24/20 ea cephalexin 500 mg PO Q12H 7 Days #14 cap 01/26/21 Allergies Allergy/AdvReac Type Severity Reaction Status Date / Time No Known Allergies Allergy Verified 12/24/20 14:37 Review of Systems Review of Systems Pertinent positives and negatives as stated in HPI 10 point review of systems is otherwise negative. Physical Exam Vital Signs: Vital Signs: Last Vital Signs Temp 98.4 F 01/26/21 01:14 Pulse 83 01/26/21 01:14 Resp 18 01/26/21 01:14 BP 137/82 01/26/21 01:14 Pulse Ox 99 01/26/21 01:14 Body Mass Index 37.3 VITAL SIGNS: Reviewed. GENERAL: Well developed, well nourished, in no acute distress. HEAD: Normocephalic/atraumatic, EYES: PERRLA, EOMI NOSE: Nares patent bilateral OROPHARYNX: no oral lesions noted, posterior pharynx clear, dry mucosa NECK: Supple, no adenopathy LUNGS: Normal breath sounds. No adventitious sounds or accessory muscle use. SpO2<99> CARDIOVASCULAR: Regular rate and rhythm without noted murmurs, no JVD or lower extremity edema. ABDOMEN: Obese, Soft, tenderness on palpation on the right side of the abdomen however due to patient's body habitus exam is limited, non-distended with bowel sounds. NEUROLOGIC: Alert and oriented x 4. Course Course Course Narrative: This is a 51-year-old female with history and clinical presentation suggestive of possible renal colic versus SBO versus diverticulitis. On review of all investigations findings only consistent with UTI. Patient was provided with initial antibiotics as well as a combination of Tylenol and lidocaine patch. Toradol was not provided as patient is currently on anticoagulation therapy. All results and findings were discussed with her at bedside and she was discharged home in stable condition with remaining course of antibiotics for her UTI. MDM - Abdominal Pain Lab Data Result diagrams: 01/26/21 00:28 01/26/21 00:28 Labs: Lab Results 01/26/21 01/26/21 01/26/21 Range/Units 00:28 00:28 00:28 WBC 7.4 (4.8-10.8) X10*3/uL RBC 4.12 L (4.20-5.50) X10*6/uL Hgb 12.0 (12.0-16.0) g/dl Hct 38.6 (37-47) % MCV 93.7 (80-98) fL MCH 29.1 (27.0-33.0) pg MCHC 31.1 (31.0-35.0) g/dl RDW 22.7 H (11.0-16.0) % Plt Count 210 (160-400) X10*3/uL MPV 8.6 L (9.4-12.3) fL Immature Gran % (Auto) 0.7 H (0.0-0.4) % Neut % (Auto) 62.6 (45-73) % Lymph % (Auto) 23.1 (20-40) % [place] % (Auto) 11.4 H (2-11) % Eos % (Auto) 1.8 (0-4) % Baso % (Auto) 0.4 (0-2) % Lymph # (Auto) 1.7 (1.2-4.9) X10*3/uL [place] # (Auto) 0.8 (0.1-1.2) X10*3/uL Eos # (Auto) 0.1 (0.0-0.4) X10*3/uL Baso # (Auto) 0.0 (0.0-0.2) X10*3/uL Abs Immat Gran (auto) 0.05 H (0.00-0.03) X10*3/uL Absolute Neuts (auto) 4.6 (2.0-8.3) X10*3/uL Absolute Nucleated RBC 0.000 (0.0-0.012) X10*3/uL Nucleated RBC % (auto) 0.0 (0.0-0.2) /100WBC PT (10.8-13.0) SEC INR (0.9-1.1) APTT (24.1-38.0) SEC Sodium 138 (135-145) mmol/L Potassium 4.5 (3.3-5.1) mmol/L Chloride 104 (96-108) mmol/L Carbon Dioxide 22 (22-29) mmol/L Anion Gap 17 (12-20) BUN 15 (9-16) mg/dL Creatinine 1.18 (0.5-1.4) mg/dL Estim Creat Clear Calc 52.4 Estimated GFR 48 Random Glucose 102 (60-115) mg/dL Lactic Acid 1.4 (0.5-2.0) mmol/L Calcium 9.1 (8.4-10.2) mg/dL Total Bilirubin 0.4 (0.0-1.0) mg/dL AST 39 H D (5-31) U/L ALT 42 H (0-31) U/L Alkaline Phosphatase 78 (39-117) U/L Total Protein 6.6 (6.5-8.0) g/dL Albumin 3.5 (3.5-5.0) g/dL Lipase 28 (8-78) U/L Urine Color Urine Appearance Urine pH (5.0-8.0) Ur Specific [place] (1.005-1.025) Urine Protein (NEG-TRACE) MG/DL Urine Glucose (UA) (NEG) MG/DL Urine Ketones (NEG) MG/DL Urine Blood (NEG) Urine Nitrite (NEG) Ur Leukocyte Esterase (NEG) Urine RBC (0) /HPF Urine WBC (0-4) /HPF Ur Squamous Epith Cells /LPF Urine Bacteria /LPF 01/26/21 01/26/21 Range/Units 00:28 00:45 WBC (4.8-10.8) X10*3/uL RBC (4.20-5.50) X10*6/uL Hgb (12.0-16.0) g/dl Hct (37-47) % MCV (80-98) fL MCH (27.0-33.0) pg MCHC (31.0-35.0) g/dl RDW (11.0-16.0) % Plt Count (160-400) X10*3/uL MPV (9.4-12.3) fL Immature Gran % (Auto) (0.0-0.4) % Neut % (Auto) (45-73) % Lymph % (Auto) (20-40) % [place] % (Auto) (2-11) % Eos % (Auto) (0-4) % Baso % (Auto) (0-2) % Lymph # (Auto) (1.2-4.9) X10*3/uL [place] # (Auto) (0.1-1.2) X10*3/uL Eos # (Auto) (0.0-0.4) X10*3/uL Baso # (Auto) (0.0-0.2) X10*3/uL Abs Immat Gran (auto) (0.00-0.03) X10*3/uL Absolute Neuts (auto) (2.0-8.3) X10*3/uL Absolute Nucleated RBC (0.0-0.012) X10*3/uL Nucleated RBC % (auto) (0.0-0.2) /100WBC PT 15.2 H D (10.8-13.0) SEC INR 1.3 H (0.9-1.1) APTT 33.3 (24.1-38.0) SEC Sodium (135-145) mmol/L Potassium (3.3-5.1) mmol/L Chloride (96-108) mmol/L Carbon Dioxide (22-29) mmol/L Anion Gap (12-20) BUN (9-16) mg/dL Creatinine (0.5-1.4) mg/dL Estim Creat Clear Calc Estimated GFR Random Glucose (60-115) mg/dL Lactic Acid (0.5-2.0) mmol/L Calcium (8.4-10.2) mg/dL Total Bilirubin (0.0-1.0) mg/dL AST (5-31) U/L ALT (0-31) U/L Alkaline Phosphatase (39-117) U/L Total Protein (6.5-8.0) g/dL Albumin (3.5-5.0) g/dL Lipase (8-78) U/L Urine Color YELLOW Urine Appearance CLEAR Urine pH 5.5 (5.0-8.0) Ur Specific [place] >= 1.030 H (1.005-1.025) Urine Protein NEG (NEG-TRACE) MG/DL Urine Glucose (UA) NEG (NEG) MG/DL Urine Ketones NEG (NEG) MG/DL Urine Blood NEG (NEG) Urine Nitrite NEG (NEG) Ur Leukocyte Esterase 1+ H (NEG) Urine RBC 0-2 (0) /HPF Urine WBC 1-4 (0-4) /HPF Ur Squamous Epith Cells TRACE /LPF Urine Bacteria TRACE /LPF Discharge Plan Discharge Clinical Impression: Chronic back pain Qualifiers: Back pain location: low back pain Back pain laterality: right Sciatica presence: with sciatica Sciatica laterality: sciatica of right side Qualified Code(s): M54.41 - Lumbago with sciatica, right side UTI (urinary tract infection) Qualifiers: Urinary tract infection type: acute cystitis Hematuria presence: without hematuria Qualified Code(s): N30.00 - Acute cystitis without hematuria Patient Disposition: Home, Self-Care Instructions: Urinary Tract Infection in Women (ED), Back Pain (ED), Lower Back Exercises (ED) Additional Instructions: 1. Reanude todos los medicamentos caseros seg?n lo prescrito. 2. Tylenol 1000 mg, por v?a oral, cada 6 horas seg?n sea necesario para controlar el dolor. No exceda los 4000 mg en 24 horas. 3. Parche de lidoca?na, estos est?n disponibles en todos los [facility] / [facility] / [facility], apl?quelo en el ?evaristo de m?xima sensibilidad shweta se indica en el empaque exterior. 4. Isamar un seguimiento con marcial proveedor de atenci?n primaria para controlar m?s el dolor con respecto a donis s?ntomas. No dude en volver al servicio de urgencias si experimenta un empeoramiento veronica de donis s?ntomas. Prescriptions: New cephalexin 500 mg capsule 500 mg PO Q12H 7 Days Qty: 14 RF: 0 No Action dicyclomine 10 mg capsule 20 mg PO QID PRN (Reason: cramps) 30 Days Qty: 240 RF: 3 codeine-guaifenesin 10-100 mg/5 mL liquid 10 ml PO Q6H PRN (Reason: cough) 10 Days Qty: 300 RF: 0 alclometasone 0.05 % cream 1 appl topical BID PRN (Reason: Rash) RF: 0 fluocinonide 0.05 % ointment 1 appl topical BID PRN (Reason: Rash) RF: 0 hydroxyzine HCl 25 mg tablet 1 tab PO QID PRN (Reason: Anxiety) RF: 0 escitalopram oxalate 10 mg tablet 1 tab PO DAILY RF: 0 Privigen 10 % solution 40 g IV Q4W RF: 0 oxycodone 5 mg tablet 5 mg PO Q6H PRN (Reason: Pain, Moderate) Qty: 20 RF: 0 quetiapine [Seroquel] 300 mg Tablet 300 mg PO DAILY RF: 0 montelukast 10 mg tablet 10 mg PO DAILY RF: 0 zolpidem [Ambien] 10 mg Tablet 10 mg PO BEDTIME PRN (Reason: Insomnia) RF: 0 albuterol sulfate 90 mcg/actuation HFA aerosol inhaler 1 inh inhalation QID PRN (Reason: shortness of breath or wheezing) Qty: 18 RF: 0 lorazepam 0.5 mg tablet 0.5 mg PO DAILY PRN (Reason: anxiety) RF: 0 losartan 50 mg tablet 50 mg PO DAILY RF: 0 cyanocobalamin (vitamin B-12) 1,000 mcg tablet 1,000 mcg PO DAILY RF: 0 apixaban 5 mg tablet 5 mg PO BID RF: 0 melatonin 5 mg capsule 5 mg PO .nightly 30 Days Qty: 30 RF: 6 omeprazole 20 mg capsule,delayed release(DR/EC) 20 mg PO DAILY 30 Days Qty: 30 RF: 0 lidocaine [Lidoderm] 5 % adhesive patch,medicated 1 patch topical DAILY 30 Days Qty: 30 RF: 11 gabapentin [Neurontin] 300 mg capsule 600 mg PO BID 30 Days Qty: 120 RF: 11 doxycycline monohydrate 100 mg capsule 100 mg PO BID 10 Days Qty: 20 RF: 0 Referrals: Claudia Villatoro MD [Primary Care Provider] - 2 days (Re-evaluation and management for chronic back pain and diagnosed with UTI in the emergency department.) Print Language: [facility] Past Medical History Source: nursing notes reviewed Medical History Anemia Arthritis Asthma Back pain Depression Diabetic neuropathy Diet-controlled diabetes mellitus Essential hypertension Fibromyalgia Hypogammaglobulinemia Hypothyroidism Laryngotracheitis Migraines Morbid obesity Pleuritic chest pain Pulmonary embolism Sleep apnea TIA (transient ischemic attack) Type 2 diabetes mellitus with unspecified complications Surgical History History of bariatric surgery History of cholecystectomy History of esophagogastroduodenoscopy (EGD) Hx of colonoscopy S/P total abdominal hysterectomy Family History Family History Mother Diabetes Stroke Family/Other Diabetes Father Diabetes Social History Social History Household Members: None Alcohol intake: never Smoking Status: Never smoker Smoked in Last 30 Days: No Use of substances other than those prescribed or required for medical reasons: No Advance Directives: No Advance Directives Information Provided: No service: No Current occupational status: disabled
[2021-01-26 00:35] LABS: MANUAL DIFF FLAG NO
[2021-01-26 00:38] LABS: Basophils Percent Auto 0.4 % (0-2); Eosinophils Absolute Auto 0.1 X10*3/uL (0.0-0.4); Eosinophils Percent Auto 1.8 % (0-4); Hematocrit 38.6 % (37-47); Imm Gran Abs Auto 0.05 X10*3/uL (0.00-0.03); Imm Gran Pct Auto 0.7 % (0.0-0.4); Lymphocytes Absolute Auto 1.7 X10*3/uL (1.2-4.9); Lymphocytes Percent Auto 23.1 % (20-40); Mean Corpuscular HGB Conc 31.1 g/dl (31.0-35.0); Mean Corpuscular Hemoglobin 29.1 pg (27.0-33.0); Mean Corpuscular Volume 93.7 fL (80-98); Mean Platelet Volume 8.6 fL (9.4-12.3); Monocytes Absolute Auto 0.8 X10*3/uL (0.1-1.2); Monocytes Percent Auto 11.4 % (2-11); Neutrophils Absolute Auto 4.6 X10*3/uL (2.0-8.3); Neutrophils Percent Auto 62.6 % (45-73); Platelet Count 210 X10*3/uL (160-400); Red Blood Count 4.12 X10*6/uL (4.20-5.50); Red Cell Distribution Width 22.7 % (11.0-16.0); White Blood Count 7.4 X10*3/uL (4.8-10.8)
[2021-01-26] MEDS: ondansetron HCL 4 MG/2 ML VIAL IVPUSH (00:38)
[2021-01-26 00:47] LABS: INTERNATIONAL NORM RATIO 1.3 (0.9-1.1); Prothrombin Time 15.2 SEC (10.8-13.0)
[2021-01-26 00:50] LABS: Partial Thromboplastin Time 33.3 SEC (24.1-38.0)
[2021-01-26 00:56] LABS: Glucose Urine UA NEG (NEG); Leukocyte Esterase Urine 1+ (NEG); Nitrite Urine NEG (NEG); PH 5.5 (5.0-8.0); Specific Gravity - Urine >= 1.030 (1.005-1.025); UACC Culture Trigger YES; Urine Blood NEG (NEG); Urine Ketones NEG (NEG); Urine Protein NEG (NEG-TRACE)
[2021-01-26 00:58] LABS: Lactic Acid 1.4 mmol/L (0.5-2.0)
[2021-01-26 01:00] LABS: Appearance Urine CLEAR; Color Urine YELLOW
--- NOTE | 2021-01-26 01:02 | PC.NURSE ---
Report taken from Lula, delbert RN resuming care. Pt transferred from [facility] to room 19. Pt aware of plan to await CT.
[2021-01-26 01:04] LABS: Bacteria Urine TRACE /LPF; RBC Urine 0-2 /HPF (0); Squamous Epithelial Cell Urine TRACE /LPF
[2021-01-26 01:05] LABS: Alanine Aminotransferase 42 U/L (0-31); Albumin Level 3.5 g/dL (3.5-5.0); Alkaline Phosphatase 78 U/L (39-117); Anion Gap 17 (12-20); Aspartate Amino Transferase 39 U/L (5-31); Bilirubin Total 0.4 mg/dL (0.0-1.0); Blood Urea Nitrogen 15 mg/dL (9-16); Calcium 9.1 mg/dL (8.4-10.2); Carbon Dioxide 22 mmol/L (22-29); Chloride 104 mmol/L (96-108); Creatinine Clr Calc Pharmacy 52.4; Estimated Glomerular Filt Rate 48; Glucose Random 102 mg/dL (60-115); Lipase 28 U/L (8-78); Potassium 4.5 mmol/L (3.3-5.1); Sodium 138 mmol/L (135-145); Total Protein 6.6 g/dL (6.5-8.0)
--- NOTE | 2021-01-26 01:09 | PC.NURSE ---
automatic equipment technician at bedside to obtain second set of BCX.
[2021-01-26 01:14] VITALS: BP 137/82; PULSE 83; RESP 18; TEMP 36.9; O2SAT 99
--- NOTE | 2021-01-26 01:44 | PC.NURSE ---
Pt requesting pain medication, MD aware. Per CT, awaiting animal cruelty investigator prior to CT.
--- NOTE | 2021-01-26 02:02 | PC.NURSE ---
Pt off to CT, while in CT, pt reported pain during flushing of IV to right bicep. Pt requesting IV to be removed due to pain. IV established to LAC. Pt continues reporting 10/10 pain, MD aware. Awaiting return from scan.
[2021-01-26] MEDS: iohexoL 350 MG/ML 75 ML INFUS..BTL IV (02:19)
[2021-01-26] MEDS: Acetaminophen 325 MG TABLET 975 MG PO (02:29)
[2021-01-26] MEDS: cefTRIAXone sodium 1 GM in 0.9 % Sodium Chloride 50 ML IV (02:29)
--- NOTE | 2021-01-26 02:33 | PC.NURSE ---
Pt medicated per MAR.
[2021-01-26] MEDS: Lidocaine 4 % Patch ADH..PATCH 1 PATCH TRANSDERMA (02:47)
--- NOTE | 2021-01-26 03:55 | PC.NURSE ---
Pt aware of plan for DC, IV removed, VSS. Pt refusing discharge at this time, states she is in too much pain. Pt states I am unable to walk, move, get dressed or drive. I can't take this pain anymore. Pt requesting to speak to . and manager basketball at bedside discussing DC plan.
== END 2021-01-26 04:16 | disposition home or self-care (01) ==
PROVIDERS: Emergency Provider Student in an Organized Health Care Education/Training Program; PCP Internal Medicine
DX: M54.41 Lumbago with sciatica, right side (principal); N30.00 Acute cystitis without hematuria; R10.9 Unspecified abdominal pain; R11.2 Nausea with vomiting, unspecified; Z79.899 Other long term (current) drug therapy
CPT/HCPCS: 36415; 74177; 80053; 81001; 81003; 83605; 83690; 85025; 85610; 85730; 87040; 87086; 96361; 96365; 96374; 99284; J0696; J2405; Q9967

== ENCOUNTER → 2021-02-12 14:58 | Outpatient (BNVA) | payer OTHER, SELFPAY | PROVIDERS: PCP Internal Medicine; Visit Provider Anesthesiology | DX: G90.522 Complex regional pain syndrome I of left lower limb (principal); M54.5 Low back pain; M47.816 Spondylosis without myelopathy or radiculopathy, lumbar region; G89.4 Chronic pain syndrome | CPT/HCPCS: 99202 ==

== ENCOUNTER 2021-02-19 09:37 | Outpatient (REF) | payer OTHER, SELFPAY | END 2021-02-19 09:38 | disposition home or self-care (01) | LOC: HO.MDS 09:37 | PROVIDERS: PCP Internal Medicine; Visit Provider Hospitalist | DX: D80.1 Nonfamilial hypogammaglobulinemia (principal) | CPT/HCPCS: 96365; 96366 ==

== ENCOUNTER → 2021-02-26 08:02 | Outpatient (BNVA) | payer OTHER, SELFPAY | PROVIDERS: PCP Internal Medicine; Visit Provider Anesthesiology | DX: G90.522 Complex regional pain syndrome I of left lower limb (principal); M54.5 Low back pain; M47.816 Spondylosis without myelopathy or radiculopathy, lumbar region; G89.4 Chronic pain syndrome; Z79.899 Other long term (current) drug therapy | CPT/HCPCS: 99212 ==

== ENCOUNTER 2021-02-26 19:26 | Emergency (ER) | payer OTHER, SELFPAY ==
[2021-02-26 20:18] VITALS: BP 96/70; PULSE 78; RESP 18; TEMP 36.9; O2SAT 95; BMI 38.7
--- NOTE | 2021-02-26 21:28 | ED.GENADULT ---
HPI - General Adult General Chief complaint: General Medical Stated complaint: foot pain, abdominal pain Time Seen by Provider: 02/26/21 21:17 Source: patient Mode of arrival: ambulatory Limitations: no limitations History of Present Illness HPI narrative: Patient comes emergency room complaining of 6 days of diarrhea. Patient states she does not recall eating or drinking anything that might made her sick. No one else is sick at home. Patient states she has approximately 6-8 bowel movements per day with watery diarrhea. Patient complaining of diffuse abdominal cramping, also complaining of nausea, no vomiting. Patient denies fever chills. Patient states she has been having right ankle pain for 3-4 weeks now. Patient states she went to see her primary care physician, she has an MRI scheduled for tomorrow. Patient denies calf pain. Patient is on Eliquis for a previous PE over 3 months ago. Related Data Home Medications Medication Instructions Recorded Confirmed montelukast 10 mg PO DAILY 08/02/20 02/26/21 quetiapine [Seroquel] 300 mg PO DAILY 08/02/20 02/26/21 zolpidem [Ambien] 10 mg PO BEDTIME PRN 08/02/20 02/26/21 apixaban 5 mg tablet 5 mg PO BID 11/05/20 02/26/21 cyanocobalamin (vitamin B-12) 1,000 mcg PO DAILY 11/05/20 02/26/21 1,000 mcg tablet lorazepam 0.5 mg tablet 0.5 mg PO DAILY PRN 11/05/20 02/26/21 losartan 50 mg tablet 50 mg PO DAILY 11/05/20 02/26/21 alclometasone 1 appl TOPICAL BID PRN 12/12/20 02/26/21 escitalopram oxalate 1 tab PO DAILY 12/12/20 02/26/21 fluocinonide 1 appl TOPICAL BID PRN 12/12/20 02/26/21 hydroxyzine HCl 1 tab PO QID PRN 12/12/20 02/26/21 immun glob G(IgG)-pro-IgA 0-50 40 g IV Q4W 12/12/20 02/26/21 [Privigen] Previous Rx's Medication Instructions Recorded albuterol sulfate 1 inh INHALATION QID PRN #18 g 10/13/20 melatonin 5 mg capsule 5 mg PO .nightly 30 Days #30 cap 12/02/20 omeprazole 20 mg capsule,delayed 20 mg PO DAILY 30 Days #30 cap 12/02/20 release gabapentin 300 mg capsule 600 mg PO BID 30 Days #120 cap 12/24/20 lidocaine 5 % topical patch 1 patch TOPICAL DAILY 30 Days #30 12/24/20 ea cephalexin 500 mg PO Q12H 7 Days #14 cap 01/26/21 sucralfate 1 gram tablet 4 g PO DAILY 30 Days #120 tab 02/07/21 dicyclomine 10 mg capsule 20 mg PO QID PRN #240 cap 02/12/21 diphenoxylate-atropine [Lomotil] 1 tab PO Q8H PRN #7 tab 02/26/21 diphenoxylate-atropine [Lomotil] 1 tab PO TID-QID PRN #7 tab 02/26/21 hydroxyzine HCl 25 mg tablet 25 mg PO BEDTIME #60 tab 02/26/21 oxycodone 5 mg tablet 5 mg PO Q8H PRN 30 Days #90 tab 02/26/21 Allergies Allergy/AdvReac Type Severity Reaction Status Date / Time No Known Allergies Allergy Verified 02/26/21 08:14 Review of Systems Review of Systems: Constitutional : No Weight loss, No Fever, No Chills, No Night Sweats, No Fatigue, No Malaise ENT/Mouth : No Hearing loss, No Ear Pain, No Nasal Congestion, No Sinus Pain, No Hoarseness, No sore throat, No Rhinorrhea, No Swallowing Difficulty Eyes: No Eye Pain, No Swelling, No Redness, No Foreign Body, No Discharge, No Vision Changes Cardiovascular : No Chest Pain, No SOB, No Dyspnea on Exertion, No Orthopnea, No Edema, No Palpitations Respiratory : No Cough, No Sputum, No Wheezing, No Smoke Exposure, No Dyspnea Gastrointestinal : Complaining of nausea No Vomiting, complaining of multiple episodes of diarrhea per day, no constipation, diffuse abdominal cramping, No Hematochezia, No Melena Genitourinary : no irregular bleeding, No Dysuria, No Urinary Frequency, No Hematuria, No Urinary Incontinence, No Urgency, No Flank Pain, No Urinary Flow Changes, No Hesitancy Musculoskeletal : Complaining of right ankle pain, No Myalgias, No Joint Swelling Skin : No Skin Lesions, No rash Neuro : No Weakness, No Numbness, No Paresthesias, No Loss of Consciousness, No Dizziness, No Headache Psych : No Anxiety/Panic, No Depression, No SI/HI/AH/VH, No Social Issues, Heme/Lymph: No Bruising, No Bleeding,No Lymphadenopathy Endocrine : No Polyuria, No Polydipsia, No Temperature Intolerance [facility] Past Medical History Medical History Anemia Arthritis Asthma Back pain Chronic pain syndrome Complex regional pain syndrome i of left lower limb Depression Diabetic neuropathy Diet-controlled diabetes mellitus Essential hypertension Fibromyalgia Hypogammaglobulinemia Hypothyroidism Laryngotracheitis Low back pain Migraines Morbid obesity Pleuritic chest pain Pulmonary embolism Sleep apnea Spondylosis of lumbar spine TIA (transient ischemic attack) Type 2 diabetes mellitus with unspecified complications Surgical History History of bariatric surgery History of cholecystectomy History of esophagogastroduodenoscopy (EGD) Hx of colonoscopy S/P total abdominal hysterectomy Family History Family History Mother Diabetes Stroke Family/Other Diabetes Father Diabetes Social History Social History Household Members: None Alcohol intake: never Smoking Status: Never smoker Advance Directives: No Advance Directives Information Provided: Yes service: No Current occupational status: disabled Physical Exam Vital Signs: Vital Signs: Last Vital Signs Temp 98.9 F 02/26/21 21:56 Pulse 71 02/26/21 21:56 Resp 16 02/26/21 21:56 BP 113/50 L 02/26/21 21:56 Pulse Ox 99 02/26/21 21:56 Body Mass Index 38.7 Appearance: Alert. Oriented X3. No acute distress. Eyes: Pupils equal, round and reactive to light. ENT: Pharynx normal. Neck: Normal inspection. Neck supple. No lymph nodes noted. No crepitus CVS: Normal heart rate and rhythm. Pulses normal. Normal S1 and S2 Respiratory: No respiratory distress. Breath sounds normal. No Wheezing. No rales Abdomen: Soft , mild diffuse discomfort to palpation, states no significant pain on deep palpation. No rigidity. No distention. Skin: Skin warm and dry. Normal skin color. Normal skin turgor. Extremities: No lower extremity edema., mild swelling around the ankle, pain to flexion extension and rotation on the ankle, right and left lower extremities within normal limits, no swelling, no pain to palpation in the calves or thighs Neuro: Oriented X 3. No motor deficit. No sensory deficit. Moving all extermities. No slurred speech. Course Course Course Narrative: I discussed the labs with the patient, patient states that she feels much better after treatment. Patient denies any further diarrhea. Patient denies any abdominal pain. Patient instructed to follow-up with her primary care physician. Patient's urinalysis is borderline positive, does have trace leukocyte esterase, but she does have also squamous epithelial cells. At this time, patient does not have any UTI symptoms, patient will not be treated for UTI. Medical Decision Making Lab Data Result diagrams: 02/26/21 21:46 02/26/21 21:45 Labs: Lab Results 02/26/21 02/26/21 02/26/21 Range/Units 21:45 21:45 21:45 WBC (4.8-10.8) X10*3/uL RBC (4.20-5.50) X10*6/uL Hgb (12.0-16.0) g/dl Hct (37-47) % MCV (80-98) fL MCH (27.0-33.0) pg MCHC (31.0-35.0) g/dl RDW (11.0-16.0) % Plt Count (160-400) X10*3/uL MPV (9.4-12.3) fL Immature Gran % (Auto) (0.0-0.4) % Neut % (Auto) (45-73) % Lymph % (Auto) (20-40) % [place] % (Auto) (2-11) % Eos % (Auto) (0-4) % Baso % (Auto) (0-2) % Lymph # (Auto) (1.2-4.9) X10*3/uL [place] # (Auto) (0.1-1.2) X10*3/uL Eos # (Auto) (0.0-0.4) X10*3/uL Baso # (Auto) (0.0-0.2) X10*3/uL Abs Immat Gran (auto) (0.00-0.03) X10*3/uL Absolute Neuts (auto) (2.0-8.3) X10*3/uL Absolute Nucleated RBC (0.0-0.012) X10*3/uL Nucleated RBC % (auto) (0.0-0.2) /100WBC Sodium 142 (135-145) mmol/L Potassium 4.7 (3.3-5.1) mmol/L Chloride 106 (96-108) mmol/L Carbon Dioxide 27 (22-29) mmol/L Anion Gap 14 (12-20) BUN 16 (9-16) mg/dL Creatinine 1.07 (0.5-1.4) mg/dL Estim Creat Clear Calc 56.4 Estimated GFR 54 Random Glucose 87 (60-115) mg/dL Calcium 9.3 (8.4-10.2) mg/dL Total Bilirubin < 0.2 (0.0-1.0) mg/dL Direct Bilirubin < 0.2 (0.0-0.5) mg/dL AST 19 (5-31) U/L ALT 19 (0-31) U/L Alkaline Phosphatase 88 D (39-117) U/L Total Protein 6.6 (6.5-8.0) g/dL Albumin 3.6 (3.5-5.0) g/dL Lipase 31 (8-78) U/L Urine Color YELLOW Urine Appearance CLEAR Urine pH 6.0 (5.0-8.0) Ur Specific [place] >= 1.030 H (1.005-1.025) Urine Protein NEG (NEG-TRACE) MG/DL Urine Glucose (UA) NEG (NEG) MG/DL Urine Ketones NEG (NEG) MG/DL Urine Blood NEG (NEG) Urine Nitrite NEG (NEG) Ur Leukocyte Esterase TRACE H (NEG) Urine RBC 0 (0) /HPF Urine WBC 0-2 (0-4) /HPF Ur Squamous Epith Cells 1+ /LPF [place] Crystals 1+ /LPF Urine Bacteria 1+ /LPF 02/26/21 Range/Units 21:46 WBC 5.5 (4.8-10.8) X10*3/uL RBC 4.11 L (4.20-5.50) X10*6/uL Hgb 12.8 (12.0-16.0) g/dl Hct 40.5 (37-47) % MCV 98.5 H (80-98) fL MCH 31.1 (27.0-33.0) pg MCHC 31.6 (31.0-35.0) g/dl RDW 15.9 (11.0-16.0) % Plt Count 201 D (160-400) X10*3/uL MPV 8.9 L (9.4-12.3) fL Immature Gran % (Auto) 0.5 H (0.0-0.4) % Neut % (Auto) 56.2 (45-73) % Lymph % (Auto) 31.6 (20-40) % [place] % (Auto) 8.0 (2-11) % Eos % (Auto) 3.3 (0-4) % Baso % (Auto) 0.4 (0-2) % Lymph # (Auto) 1.7 (1.2-4.9) X10*3/uL [place] # (Auto) 0.4 (0.1-1.2) X10*3/uL Eos # (Auto) 0.2 (0.0-0.4) X10*3/uL Baso # (Auto) 0.0 (0.0-0.2) X10*3/uL Abs Immat Gran (auto) 0.03 (0.00-0.03) X10*3/uL Absolute Neuts (auto) 3.1 (2.0-8.3) X10*3/uL Absolute Nucleated RBC 0.000 (0.0-0.012) X10*3/uL Nucleated RBC % (auto) 0.0 (0.0-0.2) /100WBC Sodium (135-145) mmol/L Potassium (3.3-5.1) mmol/L Chloride (96-108) mmol/L Carbon Dioxide (22-29) mmol/L Anion Gap (12-20) BUN (9-16) mg/dL Creatinine (0.5-1.4) mg/dL Estim Creat Clear Calc Estimated GFR Random Glucose (60-115) mg/dL Calcium (8.4-10.2) mg/dL Total Bilirubin (0.0-1.0) mg/dL Direct Bilirubin (0.0-0.5) mg/dL AST (5-31) U/L ALT (0-31) U/L Alkaline Phosphatase (39-117) U/L Total Protein (6.5-8.0) g/dL Albumin (3.5-5.0) g/dL Lipase (8-78) U/L Urine Color Urine Appearance Urine pH (5.0-8.0) Ur Specific [place] (1.005-1.025) Urine Protein (NEG-TRACE) MG/DL Urine Glucose (UA) (NEG) MG/DL Urine Ketones (NEG) MG/DL Urine Blood (NEG) Urine Nitrite (NEG) Ur Leukocyte Esterase (NEG) Urine RBC (0) /HPF Urine WBC (0-4) /HPF Ur Squamous Epith Cells /LPF [place] Crystals /LPF Urine Bacteria /LPF Discharge Plan Discharge Clinical Impression: Abdominal cramping Diarrhea Qualifiers: Diarrhea type: unspecified type Qualified Code(s): R19.7 - Diarrhea, unspecified Patient Disposition: Home, Self-Care Instructions: Acute Diarrhea (ED) Additional Instructions: Stay well hydrated. Drink fluids without extra lytes such as Pedialyte or Powerade, Gatorade. Please follow-up with your primary care physician tomorrow. If you have any worsening or new symptoms, please return to the emergency room or call 911 Prescriptions: New diphenoxylate-atropine [Lomotil] 2.5-0.025 mg tablet 1 tab PO Q8H PRN (Reason: diarrhea) Qty: 7 RF: 0 No Action sucralfate [Carafate] 1 gram tablet 4 g PO DAILY 30 Days Qty: 120 RF: 2 dicyclomine 10 mg capsule 20 mg PO QID PRN (Reason: for cramps) Qty: 240 RF: 1 alclometasone 0.05 % cream 1 appl topical BID PRN (Reason: Rash) RF: 0 fluocinonide 0.05 % ointment 1 appl topical BID PRN (Reason: Rash) RF: 0 hydroxyzine HCl 25 mg tablet 1 tab PO QID PRN (Reason: Anxiety) RF: 0 escitalopram oxalate 10 mg tablet 1 tab PO DAILY RF: 0 Privigen 10 % solution 40 g IV Q4W RF: 0 cephalexin 500 mg capsule 500 mg PO Q12H 7 Days Qty: 14 RF: 0 quetiapine [Seroquel] 300 mg Tablet 300 mg PO DAILY RF: 0 montelukast 10 mg tablet 10 mg PO DAILY RF: 0 zolpidem [Ambien] 10 mg Tablet 10 mg PO BEDTIME PRN (Reason: Insomnia) RF: 0 albuterol sulfate 90 mcg/actuation HFA aerosol inhaler 1 inh inhalation QID PRN (Reason: shortness of breath or wheezing) Qty: 18 RF: 0 lorazepam 0.5 mg tablet 0.5 mg PO DAILY PRN (Reason: anxiety) RF: 0 losartan 50 mg tablet 50 mg PO DAILY RF: 0 cyanocobalamin (vitamin B-12) 1,000 mcg tablet 1,000 mcg PO DAILY RF: 0 apixaban 5 mg tablet 5 mg PO BID RF: 0 melatonin 5 mg capsule 5 mg PO .nightly 30 Days Qty: 30 RF: 6 omeprazole 20 mg capsule,delayed release(DR/EC) 20 mg PO DAILY 30 Days Qty: 30 RF: 0 lidocaine [Lidoderm] 5 % adhesive patch,medicated 1 patch topical DAILY 30 Days Qty: 30 RF: 11 gabapentin [Neurontin] 300 mg capsule 600 mg PO BID 30 Days Qty: 120 RF: 11 oxycodone 5 mg tablet 5 mg PO Q8H PRN (Reason: pain) 30 Days Qty: 90 RF: 0 hydroxyzine HCl 25 mg tablet 25 mg PO BEDTIME Qty: 60 RF: 10
[2021-02-26] MEDS: 0.9 % Sodium Chloride 1,000 ML 999 ML IVCONT (21:51)
[2021-02-26] MEDS: ondansetron HCL 4 MG/2 ML VIAL IVPUSH (21:51)
[2021-02-26] MEDS: Acetaminophen 325 MG TABLET 650 MG PO (21:51)
[2021-02-26] MEDS: Diphenoxylate/Atrop 2.5/0.025 TABLET 2 TAB PO (21:51)
[2021-02-26 21:53] LABS: MANUAL DIFF FLAG NO
[2021-02-26 21:54] LABS: Basophils Percent Auto 0.4 % (0-2); Eosinophils Absolute Auto 0.2 X10*3/uL (0.0-0.4); Eosinophils Percent Auto 3.3 % (0-4); Hematocrit 40.5 % (37-47); Hemoglobin 12.8 g/dl (12.0-16.0); Imm Gran Abs Auto 0.03 X10*3/uL (0.00-0.03); Imm Gran Pct Auto 0.5 % (0.0-0.4); Lymphocytes Absolute Auto 1.7 X10*3/uL (1.2-4.9); Lymphocytes Percent Auto 31.6 % (20-40); Mean Corpuscular HGB Conc 31.6 g/dl (31.0-35.0); Mean Corpuscular Hemoglobin 31.1 pg (27.0-33.0); Mean Corpuscular Volume 98.5 fL (80-98); Mean Platelet Volume 8.9 fL (9.4-12.3); Monocytes Absolute Auto 0.4 X10*3/uL (0.1-1.2); Neutrophils Absolute Auto 3.1 X10*3/uL (2.0-8.3); Neutrophils Percent Auto 56.2 % (45-73); Platelet Count 201 X10*3/uL (160-400); Red Blood Count 4.11 X10*6/uL (4.20-5.50); Red Cell Distribution Width 15.9 % (11.0-16.0); White Blood Count 5.5 X10*3/uL (4.8-10.8)
[2021-02-26 21:56] VITALS: BP 113/50; PULSE 71; RESP 16; TEMP 37.2; O2SAT 99
[2021-02-26 21:56] LABS: Glucose Urine UA NEG (NEG); Leukocyte Esterase Urine TRACE (NEG); Nitrite Urine NEG (NEG); Specific Gravity - Urine >= 1.030 (1.005-1.025); UACC Culture Trigger YES; Urine Blood NEG (NEG); Urine Ketones NEG (NEG); Urine Protein NEG (NEG-TRACE)
[2021-02-26 21:57] LABS: Appearance Urine CLEAR; Color Urine YELLOW
[2021-02-26 22:04] LABS: Bacteria Urine 1+ /LPF; RBC Urine 0 /HPF (0); Squamous Epithelial Cell Urine 1+ /LPF; Urine Talc Crystals 1+ /LPF; WBC Urine 0-2 /HPF (0-4)
[2021-02-26 22:15] LABS: Lipase 31 U/L (8-78)
[2021-02-26 22:18] LABS: Alanine Aminotransferase 19 U/L (0-31); Albumin Level 3.6 g/dL (3.5-5.0); Alkaline Phosphatase 88 U/L (39-117); Anion Gap 14 (12-20); Aspartate Amino Transferase 19 U/L (5-31); Bilirubin Direct < 0.2 mg/dL (0.0-0.5); Bilirubin Total < 0.2 mg/dL (0.0-1.0); Blood Urea Nitrogen 16 mg/dL (9-16); Calcium 9.3 mg/dL (8.4-10.2); Carbon Dioxide 27 mmol/L (22-29); Chloride 106 mmol/L (96-108); Creatinine Clr Calc Pharmacy 56.4; Estimated Glomerular Filt Rate 54; Glucose Random 87 mg/dL (60-115); Potassium 4.7 mmol/L (3.3-5.1); Sodium 142 mmol/L (135-145); Total Protein 6.6 g/dL (6.5-8.0)
== END 2021-02-27 | disposition home or self-care (01) ==
PROVIDERS: Emergency Provider Emergency Medicine
DX: R19.7 Diarrhea, unspecified (principal); R10.9 Unspecified abdominal pain; M25.571 Pain in right ankle and joints of right foot; E11.9 Type 2 diabetes mellitus without complications; I10 Essential (primary) hypertension; J45.909 Unspecified asthma, uncomplicated; Z86.711 Personal history of pulmonary embolism; Z86.73 Personal history of transient ischemic attack (TIA), and cerebral infarction without residual deficits; Z90.710 Acquired absence of both cervix and uterus; Z98.84 Bariatric surgery status; Z90.49 Acquired absence of other specified parts of digestive tract; Z79.899 Other long term (current) drug therapy
CPT/HCPCS: 36415; 80048; 80076; 81001; 81003; 83690; 85025; 87086; 96361; 96374; 99284; J2405

== ENCOUNTER 2021-03-03 15:51 | Outpatient (REF) | payer OTHER, SELFPAY ==
--- NOTE | ~2021-03-03 | MR_ITS ---
EXAMINATION: MR LUMBAR SPINE WITHOUT CONTRAST CLINICAL INFORMATION: 51-year-old with spondylosis without myelopathy or radiculopathy. COMPARISON: 04/22/2017 MRI. TECHNIQUE: MRI of the lumbar spine was obtained using routine sequences without contrast. FINDINGS: Coronal Alignment:?Normal. Sagittal Alignment:?2 mm of grade 1 spondylolisthesis at L5-S1 has developed since the previous exam. Trace retrolisthesis at L3-L4 is stable. Lumbosacral Junction:?Normal. Vertebral Bodies: Normal height. Bone Marrow: Large benign vertebral hemangioma in the L4 vertebral body on the left is stable. There is an 8 mm probable atypical benign hemangioma in the L3 vertebral body. No suspicious marrow replacing process or bone marrow edema. Conus Medullaris:?Terminates at L1.?Morphology and signal is normal. Intradural Nerve Roots: Within normal limits. 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 Maximum diameter is 4 mm, unchanged. SPINAL LEVELS: L5-S1: Mild loss of disc space height is noted with disc desiccation with minimal progression of disc space height loss from previous study, with development of slight anterolisthesis. There is marked facet arthropathy on the right progressed from previous study and moderate facet arthropathy on the left also slightly progressed. Right-sided facet joint effusion noted on current exam with a small synovial cyst along its posterior margin with subchondral marrow edema on both sides of the facet joint consistent with facet inflammatory changes. There is anterior and right paravertebral spondylosis and there is mild disc bulging with a superimposed right-sided foraminal disc herniation progressed from previous exam. There is mild right-sided neural foraminal stenosis without neural impingement and there is no significant canal stenosis. L4-L5: Disc space height and signal are well maintained. No significant disc bulge or herniation and no significant spondylosis. Mild facet arthrosis bilaterally noted without significant canal or neural foraminal stenosis. L3-L4: Mild loss of disc space height is noted with mild disc desiccation and slight retrolisthesis, stable in appearance. No significant disc bulge or herniation. No significant canal or neural foraminal stenosis. Minor spondylosis is unchanged. L2-L3: Disc space height and signal are well maintained without disc bulge or herniation and no significant facet arthrosis, canal or neural foraminal stenosis, stable in appearance. L1-L2: Disc space height and signal are well maintained without disc bulge or herniation and no significant spondylosis. No significant facet arthrosis, canal or neural foraminal stenosis. Paraspinal/Retroperitoneal: The paravertebral soft tissues appear unremarkable. There is a 2.9 cm probable parapelvic cyst in the mid left kidney increased in size from previous exam. A 1 cm cortical cyst lateral cortex upper pole of right kidney, unchanged. Partially imaged exophytic cortical cyst lateral cortex mid left kidney, increased in size. MR/MR lumbar spine wo con IMPRESSION: 1. Progression of facet arthropathy at L5-S1 right more the left with facet inflammatory changes on the right on the current study, with development of grade 1 spondylolisthesis with progression of disc degenerative change. Development of right foraminal disc herniation and minimal disc bulging with mild right-sided foraminal stenosis since prior exam. 2. Mild bilateral facet arthropathy at L4-L5, stable in appearance. 3. Thickened, fatty filum, consistent with a benign fibrolipoma of the filum terminale, unchanged. 4. Multiple bilateral renal cysts, some of which have increased in size on the left, probably unchanged from previous CT abdomen of 03/16/2019.
== END 2021-03-03 15:52 | disposition home or self-care (01) ==
LOC: HO.MRI 15:51
PROVIDERS: Visit Provider Anesthesiology
DX: M47.816 Spondylosis without myelopathy or radiculopathy, lumbar region (principal)
CPT/HCPCS: 72148

== ENCOUNTER → 2021-03-12 13:13 | Outpatient (BNVA) | payer OTHER, SELFPAY | PROVIDERS: PCP Internal Medicine; Visit Provider Anesthesiology | DX: G90.522 Complex regional pain syndrome I of left lower limb (principal); M54.5 Low back pain; M47.816 Spondylosis without myelopathy or radiculopathy, lumbar region; G89.4 Chronic pain syndrome | CPT/HCPCS: 99212 ==

== ENCOUNTER 2021-03-19 09:00 | Outpatient (REF) | payer OTHER, SELFPAY | END 2021-03-19 09:01 | disposition home or self-care (01) | LOC: HO.MDS 09:00 | PROVIDERS: PCP Internal Medicine; Visit Provider Hospitalist | DX: D80.1 Nonfamilial hypogammaglobulinemia (principal) | CPT/HCPCS: 96365; 96366; 99212 ==

== ENCOUNTER 2021-03-26 10:12 | Emergency (ER) | payer OTHER, SELFPAY ==
--- NOTE | ~2021-03-26 | XR_ITS ---
EXAMINATION: XR CHEST CLINICAL INFORMATION: Cough and shortness of breath. COMPARISON: Chest radiograph 12/20/2020 TECHNIQUE: Frontal view of the chest was obtained. FINDINGS: Compared to the prior study, there has been no significant interval change. Once again noted are hypoinflated lungs. Heart size within upper limits of normal. No infiltrates, effusions or lung masses seen. XR/XR chest 1V IMPRESSION: No acute intrathoracic disease.
[2021-03-26 10:23] VITALS: BP 119/61; PULSE 82; RESP 17; TEMP 36.8; O2SAT 100; BMI 38.9
--- NOTE | 2021-03-26 11:04 | ED_ITS ---
HPI - General Adult General Chief complaint: General Medical <Sanket Angelo NP - Last Filed: 03/26/21 14:35> Stated complaint: asthma? 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 <Sanket Angelo NP - Last Filed: 03/26/21 14:35> Mode of arrival: ambulatory <EAGLE Browne Last Filed: 03/26/21 14:35> Limitations: no limitations and language barrier <EAGLE Browne Last Filed: 03/26/21 14:35> History of Present Illness HPI narrative: 51-year-old female with past medical history of obstructive sleep apnea, chronic pain syndrome, lumbar spine spondylosis, complex regional pain syndrome, diabetic neuropathy, laryngeal tracheitis, hypertension, diabetes, obesity, asthma, fibromyalgia, hypothyroidism, PE on Eliquis here with complaints of cough, wheezing, shortness of breath, subjective fevers, body aches and diarrhea for 2 days. Using home albuterol MDI, nebulizer, Singulair with continued symptoms. Followed by Dr. Larry from pulmonology. She has prednisone at [facility] which she can take if needed and she did start this 2 days ago 20 mg. No chest pain, leg swelling, vomiting, abdominal pain <EAGLE Browne Last Filed: 03/26/21 14:35> Related Data Home medications: Home Medications Medication Instructions Recorded Confirmed montelukast 10 mg PO DAILY 08/02/20 04/09/21 quetiapine [Seroquel] 300 mg PO DAILY 08/02/20 04/09/21 zolpidem [Ambien] 10 mg PO BEDTIME PRN 08/02/20 04/09/21 apixaban 5 mg tablet 5 mg PO BID 11/05/20 04/09/21 cyanocobalamin (vitamin B-12) 1,000 mcg PO DAILY 11/05/20 04/09/21 1,000 mcg tablet lorazepam 0.5 mg tablet 0.5 mg PO DAILY PRN 11/05/20 04/09/21 losartan 50 mg tablet 50 mg PO DAILY 11/05/20 04/09/21 alclometasone 1 appl TOPICAL BID PRN 12/12/20 04/09/21 escitalopram oxalate 1 tab PO DAILY 12/12/20 04/09/21 fluocinonide 1 appl TOPICAL BID PRN 12/12/20 04/09/21 hydroxyzine HCl 1 tab PO QID PRN 12/12/20 04/09/21 immun glob G(IgG)-pro-IgA 0-50 40 g IV Q4W 12/12/20 04/09/21 [Privigen] cholecalciferol (vitamin D3) 25 25 mcg PO DAILY 03/19/21 04/09/21 mcg (1,000 unit) tablet Previous Rx's Medication Instructions Recorded albuterol sulfate 1 inh INHALATION QID PRN #18 g 10/13/20 melatonin 5 mg capsule 5 mg PO .nightly 30 Days #30 cap 12/02/20 omeprazole 20 mg capsule,delayed 20 mg PO DAILY 30 Days #30 cap 12/02/20 release lidocaine 5 % topical patch 1 patch TOPICAL DAILY 30 Days #30 12/24/20 ea cephalexin 500 mg PO Q12H 7 Days #14 cap 01/26/21 sucralfate 1 gram tablet 4 g PO DAILY 30 Days #120 tab 02/07/21 dicyclomine 10 mg capsule 20 mg PO QID PRN #240 cap 02/12/21 diphenoxylate-atropine [Lomotil] 1 tab PO Q8H PRN #7 tab 02/26/21 diphenoxylate-atropine [Lomotil] 1 tab PO TID-QID PRN #7 tab 02/26/21 hydroxyzine HCl 25 mg tablet 25 mg PO BEDTIME #60 tab 02/26/21 benzonatate 200 mg capsule 200 mg PO TID PRN 30 Days #60 cap 03/19/21 budesonide-formoterol HFA 160 2 puff INHALATION BID 30 Days 03/19/21 mcg-4.5 mcg/actuation aerosol #10.2 g inhaler prednisone 10 mg tablet 10 mg PO DAILY 18 Days #63 tab 03/27/21 oxycodone 5 mg tablet 5 mg PO Q8H PRN 30 Days #90 tab 04/09/21 gabapentin 300 mg capsule 600 mg PO BID 30 Days #120 cap 04/14/21 benzonatate [Tessalon Perles] 100 mg PO TID PRN #20 cap 04/23/21 dextromethorphan-guaifenesin 10 ml PO Q8H PRN #118 ml 04/23/21 [Robitussin Cough-Chest Sandro DM] prednisone 60 mg PO DAILY #12 tab 04/23/21 azithromycin 500 mg tablet 500 mg PO DAILY 3 Days #3 tab 04/24/21 dextromethorphan-guaifenesin 5 10 ml PO Q6H PRN 30 Days #355 ml 04/24/21 mg-100 mg/5 mL oral liquid prednisone 10 mg tablet 10 mg PO DAILY 14 Days #28 tab 04/24/21 <Sanket Angelo NP - Last Filed: 03/26/21 14:35> Allergies/adverse reactions: Allergies Allergy/AdvReac Type Severity Reaction Status Date / Time No Known Allergies Allergy Verified 04/23/21 13:59 <Sanket Angelo NP - Last Filed: 03/26/21 14:35> Review of Systems Review of Systems: Yes all other systems are reviewed and are negative <Sanket Angelo NP - Last Filed: 03/26/21 14:35> Constitutional: Constitutional: Reports no additional constitutional complaints, Reports body ache(s), Denies chills, Reports fever(s) (Subjective), Denies headache(s) and Denies weakness <Sanket Angelo NP - Last Filed: 03/26/21 14:35> Eyes: Eyes: Reports no additional eye complaints and Denies change in vision <Sanket Angelo NP - Last Filed: 03/26/21 14:35> ENT: Reports system reviewed and no additional complaints, except as documented, Denies dizziness, Denies headache(s), Denies nasal congestion, Denies nasal discharge and Denies neck pain <Sanket Angelo NP - Last Filed: 03/26/21 14:35> Cardiovascular: Cardiovascular: Reports no additional cardiovascular complaints, Denies chest pain, Denies leg edema and Reports dyspnea <Sanket Angelo NP - Last Filed: 03/26/21 14:35> Respiratory: Respiratory: Reports no additional respiratory complaints, Reports cough and Reports dyspnea <Sanket Angelo NP - Last Filed: 03/26/21 14:35> Gastrointestinal: Gastrointestinal: Reports no additional gastrointestinal complaints, Denies abdominal pain, Denies diarrhea, Denies nausea and Denies vomiting <Sanket Angelo NP - Last Filed: 03/26/21 14:35> Genitourinary: Genitourinary: Reports no additional female genitourinary complaints and Denies urinary incontinence <Sanket Angelo NP - Last Filed: 03/26/21 14:35> Musculoskeletal: Musculoskeletal: Reports no additional musculoskeletal complaints, Denies back pain, Denies arthralgias, Denies joint swelling, Denies neck pain, Denies numbness and Denies tingling <Sanket Angelo NP - Last Filed: 03/26/21 14:35> Integumentary/Breasts: Skin/Breast: Reports system reviewed and no additional complaints, except as docu and Denies rash <Sanket Angelo NP - Last Filed: 03/26/21 14:35> Neurologic: Reports system reviewed and no additional complaints, except as documented, Denies Abnormal speech present, Denies dizziness, Denies headache (s), Denies numbness, Denies tingling and Denies weakness <Sanket Angelo NP - Last Filed: 03/26/21 14:35> PMFSH Past Medical History Attestation statement: The following information was validated with the patient. <Sanket Angelo NP - Last Filed: 03/26/21 14:35> Source: old records reviewed and nursing notes reviewed <Sanket Angelo NP - Last Filed: 03/26/21 14:35> Medical History: Medical History Anemia Arthritis Asthma Back pain Chronic pain syndrome Complex regional pain syndrome i of left lower limb Cough Depression Diabetic neuropathy Diet-controlled diabetes mellitus Essential hypertension Fibromyalgia Hypogammaglobulinemia Hypothyroidism Laryngotracheitis Low back pain Migraines Morbid obesity BABATUNDE (obstructive sleep apnea) Pleuritic chest pain Pulmonary embolism Sleep apnea Spondylosis of lumbar spine TIA (transient ischemic attack) Type 2 diabetes mellitus with unspecified complications <Sanket Angelo NP - Last Filed: 03/26/21 14:35> Surgical History: Surgical History History of bariatric surgery History of cholecystectomy History of esophagogastroduodenoscopy (EGD) Hx of colonoscopy S/P total abdominal hysterectomy <Sanket Angelo NP - Last Filed: 03/26/21 14:35> Family History Family History: Family History Mother Diabetes Stroke Family/Other Diabetes Father Diabetes <Sanket Angelo NP - Last Filed: 03/26/21 14:35> Social History Social History: Social History Household Members: None Alcohol intake: never Advance Directives: No Advance Directives Information Provided: Yes Patient : No service: No Current occupational status: disabled <Sanket Angelo NP - Last Filed: 03/26/21 14:35> Physical Exam Vital Signs: Vital Signs: Last Vital Signs Temp 98.3 F 03/26/21 10:23 Pulse 74 03/26/21 11:51 Resp 17 03/26/21 10:23 BP 119/61 03/26/21 10:23 Pulse Ox 100 03/26/21 10:23 Body Mass Index 38.9 <Sanket Angelo NP - Last Filed: 03/26/21 14:35> Vital Signs: Last Vital Signs Temp 98.3 F 03/26/21 10:23 Pulse 74 03/26/21 11:51 Resp 17 03/26/21 10:23 BP 119/61 03/26/21 10:23 Pulse Ox 100 03/26/21 10:23 Body Mass Index 38.9 <Nicholas Acuna MD - Last Filed: 04/30/21 16:01> Const: General: cooperative, healthy appearing, comfortable and no acute distress <Sanket Angelo NP - Last Filed: 03/26/21 14:35> Orientation/consciousness: patient oriented x3 <Sanket Angelo NP - Last Filed: 03/26/21 14:35> Limitations: no limitations <Sanket Angelo NP - Last Filed: 03/26/21 14:35> HENMT: Head: Yes normal to inspection <Sanket Angelo NP - Last Filed: 03/26/21 14:35> Ears: hearing grossly normal bilaterally <Sanket Angelo NP - Last Filed: 03/26/21 14:35> General nose exam: Normal external nose present <Sanket Angelo NP - Last Filed: 03/26/21 14:35> Face and sinus: Yes normal facial exam <Sanket Angelo NP - Last Filed: 03/26/21 14:35> Mouth: Normal oral and palatal mucosa present <Sanket Angelo NP - Last Filed: 03/26/21 14:35> Throat: Yes posterior oropharynx normal <Sanket Angelo NP - Last Filed: 03/26/21 14:35> Eyes: General: appearance normal, both eyes and all related structures <Sanket Angelo NP - Last Filed: 03/26/21 14:35> Pupils: Equal, round and reactive pupils present <Sanket Angelo NP - Last Filed: 03/26/21 14:35> Neck: Neck: Yes normal visual inspection <Sanket Angelo NP - Last Filed: 03/26/21 14:35> Chest: Chest palpation & inspection: normal inspection of the chest <Abraham Angelo NP - Last Filed: 03/26/21 14:35> Resp: Other: Mild expiratory wheezing. Speaking full sentences in no apparent distress <Sanket Angelo NP - Last Filed: 03/26/21 14:35> Effort & Inspection: normal respiratory effort <Sanket Angelo NP - Last Filed: 03/26/21 14:35> Cardio: Rate: regular rate <Sanket Angelo NP - Last Filed: 03/26/21 14:35> Rhythm: regular rhythm <Sanket Angelo NP - Last Filed: 03/26/21 14:35> Peripheral pulses: Peripheral pulses 2+ throughout <Sanket Angelo NP - Last Filed: 03/26/21 14:35> GI: Inspection: Yes normal to inspection <Sanket Angelo NP - Last Filed: 03/26/21 14:35> Palpation (GI): Soft to palpation and nontender <Sanket Angelo NP - Last Filed: 03/26/21 14:35> Auscultation: normal bowel sounds <Sanket Angelo NP - Last Filed: 03/26/21 14:35> Back/Spine/Pelvis: Thoracic/Lumbar Spine: thoracic and lumbar spine normal to inspection <Sanket Angelo NP - Last Filed: 03/26/21 14:35> Skin: General skin exam: no rashes or lesions noted <Saknet Angelo NP - Last Filed: 03/26/21 14:35> Neuro: General: patient oriented x3, no focal motor deficits and normal sensation to monofilament <Sanket Angelo NP - Last Filed: 03/26/21 14:35> Cranial nerves: Yes Equal, round and reactive pupils present <Sanket Angelo NP - Last Filed: 03/26/21 14:35> Cognition (Neuro): normal cognition <Sanket Angelo NP - Last Filed: 03/26/21 14:35> Speech: No Abnormal speech present <Sanket Angelo NP - Last Filed: 03/26/21 14:35> Gait exam (Neuro): Normal gait present <Sanket Angelo NP - Last Filed: 03/26/21 14:35> Motor exam (neuro): 5/5 motor strength present throughout <Sanket Angelo NP - Last Filed: 03/26/21 14:35> Extrem: General: Yes normal to inspection, Yes no pedal edema and Yes no calf tenderness <Sanket Angelo NP - Last Filed: 03/26/21 14:35> Course Course Course Narrative: 51-year-old female with multiple medical problems here with complaints of body aches, cough, shortness of breath, subjective fevers times several days unrelieved with home asthma medications. Did start prednisone 20 mg 2 days ago for presumed asthma exacerbation with continued symptoms. History of multiple meds for same. No intubation history. On exam patient is actually well appearing with stable saturations in no apparent distress. Lung sounds do show some mild expiratory wheezing. Will need labs, chest x-ray, EKG, COVID screen. Will give DuoNeb, magnesium and Solu-Medrol 1330-chest x-ray unremarkable. EKG shows no ischemic changes. Labs are unremarkable. COVID screen negative. Patient feeling much improved. She does still have a mild expiratory wheeze but tells me that she would like to go home and use her nebulizers at home. She is currently taking prednisone 20 mg we discussed increasing her dose the next several days. We also discussed following up with her showroom sales consultant. Stable saturations, speaking full sentences. Reviewed worrisome signs and symptoms when to return to the emergency department. Comfortable discharge home. <Sanket Angelo NP - Last Filed: 03/26/21 14:35> I have reviewed the chart <Nicholas Acuna MD - Last Filed: 04/30/21 16:01> Medical Decision Making MDM Narrative Medical decision making narrative: Pneumonia, viral syndrome, asthma exacerbation <Sanket Angelo NP - Last Filed: 03/26/21 14:35> Medical Records Medical records reviewed: Yes I reviewed the patient's medical records. <Sanket Angelo NP - Last Filed: 03/26/21 14:35> Lab Data Lab results reviewed: Yes I reviewed the patient's lab results. <Sanket Angelo NP - Last Filed: 03/26/21 14:35> Result diagrams: : 03/26/21 11:42 03/26/21 11:42 <Sanket Angelo NP - Last Filed: 03/26/21 14:35> Labs: Lab Results 03/26/21 03/26/21 03/26/21 Range/Units 11:22 11:42 11:42 WBC 6.1 (4.8-10.8) X10*3/uL RBC 3.97 L (4.20-5.50) X10*6/uL Hgb 12.5 (12.0-16.0) g/dl Hct 39.3 (37-47) % MCV 99.0 H (80-98) fL MCH 31.5 (27.0-33.0) pg MCHC 31.8 (31.0-35.0) g/dl RDW 13.5 (11.0-16.0) % Plt Count 225 (160-400) X10*3/uL MPV 8.7 L (9.4-12.3) fL Immature Gran % (Auto) 0.5 H (0.0-0.4) % Neut % (Auto) 66.3 (45-73) % Lymph % (Auto) 23.3 (20-40) % Denton % (Auto) 7.7 (2-11) % Eos % (Auto) 2.0 (0-4) % Baso % (Auto) 0.2 (0-2) % Lymph # (Auto) 1.4 (1.2-4.9) X10*3/uL [place] # (Auto) 0.5 (0.1-1.2) X10*3/uL Eos # (Auto) 0.1 (0.0-0.4) X10*3/uL Baso # (Auto) 0.0 (0.0-0.2) X10*3/uL Abs Immat Gran (auto) 0.03 (0.00-0.03) X10*3/uL Absolute Neuts (auto) 4.0 (2.0-8.3) X10*3/uL Absolute Nucleated RBC 0.000 (0.0-0.012) X10*3/uL Nucleated RBC % (auto) 0.0 (0.0-0.2) /100WBC PT 13.2 H (10.8-13.0) SEC INR 1.1 (0.9-1.1) Sodium (135-145) mmol/L Potassium (3.3-5.1) mmol/L Chloride (96-108) mmol/L Carbon Dioxide (22-29) mmol/L Anion Gap (12-20) BUN (9-16) mg/dL Creatinine (0.5-1.4) mg/dL Estim Creat Clear Calc Estimated GFR Random Glucose (60-115) mg/dL Lactic Acid (0.5-2.0) mmol/L Calcium (8.4-10.2) mg/dL Magnesium (1.6-2.6) mg/dL Total Bilirubin (0.0-1.0) mg/dL Direct Bilirubin (0.0-0.5) mg/dL AST (5-31) U/L ALT (0-31) U/L Alkaline Phosphatase (39-117) U/L Troponin I High Sens (<3.5-17.0) ng/L Total Protein (6.5-8.0) g/dL Albumin (3.5-5.0) g/dL COVID-19 (MARIO ALBERTO) Negative (Negative) COVID-19 Clin Com See Note 03/26/21 03/26/21 03/26/21 Range/Units 11:42 11:42 11:42 WBC (4.8-10.8) X10*3/uL RBC (4.20-5.50) X10*6/uL Hgb (12.0-16.0) g/dl Hct (37-47) % MCV (80-98) fL MCH (27.0-33.0) pg MCHC (31.0-35.0) g/dl RDW (11.0-16.0) % Plt Count (160-400) X10*3/uL MPV (9.4-12.3) fL Immature Gran % (Auto) (0.0-0.4) % Neut % (Auto) (45-73) % Lymph % (Auto) (20-40) % Denton % (Auto) (2-11) % Eos % (Auto) (0-4) % Baso % (Auto) (0-2) % Lymph # (Auto) (1.2-4.9) X10*3/uL Denton # (Auto) (0.1-1.2) X10*3/uL Eos # (Auto) (0.0-0.4) X10*3/uL Baso # (Auto) (0.0-0.2) X10*3/uL Abs Immat Gran (auto) (0.00-0.03) X10*3/uL Absolute Neuts (auto) (2.0-8.3) X10*3/uL Absolute Nucleated RBC (0.0-0.012) X10*3/uL Nucleated RBC % (auto) (0.0-0.2) /100WBC PT (10.8-13.0) SEC INR (0.9-1.1) Sodium 141 (135-145) mmol/L Potassium 4.1 (3.3-5.1) mmol/L Chloride 106 (96-108) mmol/L Carbon Dioxide 27 (22-29) mmol/L Anion Gap 12 (12-20) BUN 13 (9-16) mg/dL Creatinine 0.82 (0.5-1.4) mg/dL Estim Creat Clear Calc 77.2 Estimated GFR > 60 Random Glucose 79 (60-115) mg/dL Lactic Acid 1.7 (0.5-2.0) mmol/L Calcium 9.2 (8.4-10.2) mg/dL Magnesium 2.0 (1.6-2.6) mg/dL Total Bilirubin 0.2 (0.0-1.0) mg/dL Direct Bilirubin < 0.2 (0.0-0.5) mg/dL AST 16 (5-31) U/L ALT 15 (0-31) U/L Alkaline Phosphatase 80 (39-117) U/L Troponin I High Sens 3.8 (<3.5-17.0) ng/L Total Protein 6.5 (6.5-8.0) g/dL Albumin 3.5 (3.5-5.0) g/dL COVID-19 (MARIO ALBERTO) (Negative) COVID-19 Clin Com <Sanket Angelo, PERL PROGRAMMER - Last Filed: 03/26/21 14:35> Lab Results 03/26/21 03/26/21 03/26/21 Range/Units 11:22 11:42 11:42 WBC 6.1 (4.8-10.8) X10*3/uL RBC 3.97 L (4.20-5.50) X10*6/uL Hgb 12.5 (12.0-16.0) g/dl Hct 39.3 (37-47) % MCV 99.0 H (80-98) fL MCH 31.5 (27.0-33.0) pg MCHC 31.8 (31.0-35.0) g/dl RDW 13.5 (11.0-16.0) % Plt Count 225 (160-400) X10*3/uL MPV 8.7 L (9.4-12.3) fL Immature Gran % (Auto) 0.5 H (0.0-0.4) % Neut % (Auto) 66.3 (45-73) % Lymph % (Auto) 23.3 (20-40) % [place]enton % (Auto) 7.7 (2-11) % Eos % (Auto) 2.0 (0-4) % Baso % (Auto) 0.2 (0-2) % Lymph # (Auto) 1.4 (1.2-4.9) X10*3/uL [place] # (Auto) 0.5 (0.1-1.2) X10*3/uL Eos # (Auto) 0.1 (0.0-0.4) X10*3/uL Baso # (Auto) 0.0 (0.0-0.2) X10*3/uL Abs Immat Gran (auto) 0.03 (0.00-0.03) X10*3/uL Absolute Neuts (auto) 4.0 (2.0-8.3) X10*3/uL Absolute Nucleated RBC 0.000 (0.0-0.012) X10*3/uL Nucleated RBC % (auto) 0.0 (0.0-0.2) /100WBC PT 13.2 H (10.8-13.0) SEC INR 1.1 (0.9-1.1) Sodium (135-145) mmol/L Potassium (3.3-5.1) mmol/L Chloride (96-108) mmol/L Carbon Dioxide (22-29) mmol/L Anion Gap (12-20) BUN (9-16) mg/dL Creatinine (0.5-1.4) mg/dL Estim Creat Clear Calc Estimated GFR Random Glucose (60-115) mg/dL Lactic Acid (0.5-2.0) mmol/L Calcium (8.4-10.2) mg/dL Magnesium (1.6-2.6) mg/dL Total Bilirubin (0.0-1.0) mg/dL Direct Bilirubin (0.0-0.5) mg/dL AST (5-31) U/L ALT (0-31) U/L Alkaline Phosphatase (39-117) U/L Troponin I High Sens (<3.5-17.0) ng/L Total Protein (6.5-8.0) g/dL Albumin (3.5-5.0) g/dL COVID-19 (MARIO ALBERTO) Negative (Negative) COVID-19 Clin Com See Note 03/26/21 03/26/21 03/26/21 Range/Units 11:42 11:42 11:42 WBC (4.8-10.8) X10*3/uL RBC (4.20-5.50) X10*6/uL Hgb (12.0-16.0) g/dl Hct (37-47) % MCV (80-98) fL MCH (27.0-33.0) pg MCHC (31.0-35.0) g/dl RDW (11.0-16.0) % Plt Count (160-400) X10*3/uL MPV (9.4-12.3) fL Immature Gran % (Auto) (0.0-0.4) % Neut % (Auto) (45-73) % Lymph % (Auto) (20-40) % [place] % (Auto) (2-11) % Eos % (Auto) (0-4) % Baso % (Auto) (0-2) % Lymph # (Auto) (1.2-4.9) X10*3/uL [place] # (Auto) (0.1-1.2) X10*3/uL Eos # (Auto) (0.0-0.4) X10*3/uL Baso # (Auto) (0.0-0.2) X10*3/uL Abs Immat Gran (auto) (0.00-0.03) X10*3/uL Absolute Neuts (auto) (2.0-8.3) X10*3/uL Absolute Nucleated RBC (0.0-0.012) X10*3/uL Nucleated RBC % (auto) (0.0-0.2) /100WBC PT (10.8-13.0) SEC INR (0.9-1.1) Sodium 141 (135-145) mmol/L Potassium 4.1 (3.3-5.1) mmol/L Chloride 106 (96-108) mmol/L Carbon Dioxide 27 (22-29) mmol/L Anion Gap 12 (12-20) BUN 13 (9-16) mg/dL Creatinine 0.82 (0.5-1.4) mg/dL Estim Creat Clear Calc 77.2 Estimated GFR > 60 Random Glucose 79 (60-115) mg/dL Lactic Acid 1.7 (0.5-2.0) mmol/L Calcium 9.2 (8.4-10.2) mg/dL Magnesium 2.0 (1.6-2.6) mg/dL Total Bilirubin 0.2 (0.0-1.0) mg/dL Direct Bilirubin < 0.2 (0.0-0.5) mg/dL AST 16 (5-31) U/L ALT 15 (0-31) U/L Alkaline Phosphatase 80 (39-117) U/L Troponin I High Sens 3.8 (<3.5-17.0) ng/L Total Protein 6.5 (6.5-8.0) g/dL Albumin 3.5 (3.5-5.0) g/dL COVID-19 ([facility]ERTO) (Negative) COVID-19 Clin Com <Nicholas Acuna MD - Last Filed: 04/30/21 16:01> Imaging Data Chest x-ray: Attestation: I personally reviewed and interpreted this imaging study as follows: <Sankte Angelo NP - Last Filed: 03/26/21 14:35> Radiologist's impression: [address] [id number] ReportSigned Patient: Maye JohnsonMR#: [id number]: [id number]:[id number]/Sex: 51 / FADM Date: 03/26/21Loc: [address]: Ordering Physician: SANKET ANGELO NP Date of Service: 03/26/21 Procedure(s): XR chest 1V Accession Number(s): [id number] cc: SANKET ANGELO NP~ EXAMINATION: XR CHEST CLINICAL INFORMATION: Cough and shortness of breath. COMPARISON: Chest radiograph 12/20/2020 TECHNIQUE: Frontal view of the chest was obtained. FINDINGS: Compared to the prior study, there has been no significant interval change. Once again noted are hypoinflated lungs. Heart size within upper limits of normal. No infiltrates, effusions or lung masses seen. XR/XR chest 1V IMPRESSION: No acute intrathoracic disease. <Sanket Angelo NP - Last Filed: 03/26/21 14:35> ECG Data Attestation: I personally reviewed and interpreted this ECG as follows: <Sanket Angelo NP - Last Filed: 03/26/21 14:35> Interpretation: Normal sinus rhythm with a rate of 73, normal [place], normal QRS, <Sanket Angelo NP - Last Filed: 03/26/21 14:35> Discharge Plan Discharge Clinical Impression: Asthma <Sanket Angelo NP - Last Filed: 03/26/21 14:35> Patient Disposition: Home, Self-Care <Sanket Angelo NP - Last Filed: 03/26/21 14:35> Instructions: Asthma (ED) <Sanket Angelo NP - Last Filed: 03/26/21 14:35> Additional Instructions: Increase prednisone to 60 mg daily for the next 5 days starting tomorrow. Follow up with showroom sales consultant <Sanket Angelo NP - Last Filed: 03/26/21 14:35> Prescriptions: No Action sucralfate [Carafate] 1 gram tablet 4 g PO DAILY 30 Days Qty: 120 RF: 2 dicyclomine 10 mg capsule 20 mg PO QID PRN (Reason: for cramps) Qty: 240 RF: 1 prednisone 10 mg tablet 10 mg PO DAILY 18 Days Qty: 63 RF: 0 gabapentin [Neurontin] 300 mg capsule 600 mg PO BID 30 Days Qty: 120 RF: 11 azithromycin 500 mg tablet 500 mg PO DAILY 3 Days Qty: 3 RF: 0 prednisone 10 mg tablet 10 mg PO DAILY 14 Days Qty: 28 RF: 0 Robitussin Cough-Chest Sandro DM 5-100 mg/5 mL liquid 10 ml PO Q6H PRN (Reason: cough) 30 Days Qty: 355 RF: 3 alclometasone 0.05 % cream 1 appl topical BID PRN (Reason: Rash) RF: 0 fluocinonide 0.05 % ointment 1 appl topical BID PRN (Reason: Rash) RF: 0 hydroxyzine HCl 25 mg tablet 1 tab PO QID PRN (Reason: Anxiety) RF: 0 escitalopram oxalate 10 mg tablet 1 tab PO DAILY RF: 0 Privigen 10 % solution 40 g IV Q4W RF: 0 cephalexin 500 mg capsule 500 mg PO Q12H 7 Days Qty: 14 RF: 0 diphenoxylate-atropine [Lomotil] 2.5-0.025 mg tablet 1 tab PO Q8H PRN (Reason: diarrhea) Qty: 7 RF: 0 diphenoxylate-atropine [Lomotil] 2.5-0.025 mg tablet 1 tab PO TID-QID PRN (Reason: diarrhea) Qty: 7 RF: 0 quetiapine [Seroquel] 300 mg Tablet 300 mg PO DAILY RF: 0 montelukast 10 mg tablet 10 mg PO DAILY RF: 0 zolpidem [Ambien] 10 mg Tablet 10 mg PO BEDTIME PRN (Reason: Insomnia) RF: 0 albuterol sulfate 90 mcg/actuation HFA aerosol inhaler 1 inh inhalation QID PRN (Reason: shortness of breath or wheezing) Qty: 18 RF: 0 prednisone 20 mg tablet 60 mg PO DAILY Qty: 12 RF: 0 benzonatate [Tessalon Perles] 100 mg capsule 100 mg PO TID PRN (Reason: cough) Qty: 20 RF: 0 Robitussin Cough-Chest Sandro DM 5-100 mg/5 mL liquid 10 ml PO Q8H PRN (Reason: cough) Qty: 118 RF: 0 cholecalciferol (vitamin D3) 25 mcg (1,000 unit) tablet 25 mcg PO DAILY RF: 0 budesonide-formoterol [Symbicort] 160-4.5 mcg/actuation HFA aerosol inhaler 2 puff inhalation BID 30 Days Qty: 10.2 RF: 11 benzonatate 200 mg capsule 200 mg PO TID PRN (Reason: cough) 30 Days Qty: 60 RF: 3 oxycodone 5 mg tablet 5 mg PO Q8H PRN (Reason: pain) 30 Days Qty: 90 RF: 0 lorazepam 0.5 mg tablet 0.5 mg PO DAILY PRN (Reason: anxiety) RF: 0 losartan 50 mg tablet 50 mg PO DAILY RF: 0 cyanocobalamin (vitamin B-12) 1,000 mcg tablet 1,000 mcg PO DAILY RF: 0 apixaban 5 mg tablet 5 mg PO BID RF: 0 melatonin 5 mg capsule 5 mg PO .nightly 30 Days Qty: 30 RF: 6 omeprazole 20 mg capsule,delayed release(DR/EC) 20 mg PO DAILY 30 Days Qty: 30 RF: 0 lidocaine [Lidoderm] 5 % adhesive patch,medicated 1 patch topical DAILY 30 Days Qty: 30 RF: 11 hydroxyzine HCl 25 mg tablet 25 mg PO BEDTIME Qty: 60 RF: 10 <Sanket Angelo NP - Last Filed: 03/26/21 14:35> Referrals: John Larry MD [Physician] - 2 days <Sanket Angelo NP - Last Filed: 03/26/21 14:35> Interventions: ED Discharge Assessment Last Done: 03/26/21 14:03 <Sanket Angelo NP - Last Filed: 03/26/21 14:35> Discharge Date/Time: 03/26/21 14:14 <Sanket Angelo NP - Last Filed: 03/26/21 14:35> Print Language: [place]ican <Sanket Angelo NP - Last Filed: 03/26/21 14:35>
--- NOTE | 2021-03-26 11:05 | ECG_ITS ---
Test Reason : SOB Blood Pressure : / mmHG Vent. Rate : 073 BPM Atrial Rate : 073 BPM P-R Int : 140 ms QRS Dur : 100 ms QT Int : 388 ms P-R-T Axes : 047 016 018 degrees QTc Int : 427 ms Normal sinus rhythm Nonspecific T wave abnormality Abnormal ECG When compared with ECG of 21-DEC-2020 01:00, No significant change was found Referred By: Catrachita Givens Electronically Signed By:ISIDORO MORALES
[2021-03-26] MEDS: Magnesium Sulfate/H2O 2 GM/50 ML PIGGYBACK IV (11:31)
[2021-03-26] MEDS: methylPREDNISolone Sod Succ 125 MG/2 ML VIAL IVPUSH (11:31)
[2021-03-26 11:44] LABS: COVID-19 Test Negative (Negative)
[2021-03-26] MEDS: Albuterol/Iprat 2.5/0.5MG 3 ML AMPUL.NEB INHALE (11:48)
[2021-03-26 11:49] LABS: MANUAL DIFF FLAG NO
[2021-03-26 11:51] VITALS: PULSE 74; O2SAT 98
[2021-03-26 11:51] LABS: Basophils Percent Auto 0.2 % (0-2); Eosinophils Absolute Auto 0.1 X10*3/uL (0.0-0.4); Hematocrit 39.3 % (37-47); Hemoglobin 12.5 g/dl (12.0-16.0); Imm Gran Abs Auto 0.03 X10*3/uL (0.00-0.03); Imm Gran Pct Auto 0.5 % (0.0-0.4); Lymphocytes Absolute Auto 1.4 X10*3/uL (1.2-4.9); Lymphocytes Percent Auto 23.3 % (20-40); Mean Corpuscular HGB Conc 31.8 g/dl (31.0-35.0); Mean Corpuscular Hemoglobin 31.5 pg (27.0-33.0); Mean Platelet Volume 8.7 fL (9.4-12.3); Monocytes Absolute Auto 0.5 X10*3/uL (0.1-1.2); Monocytes Percent Auto 7.7 % (2-11); Neutrophils Percent Auto 66.3 % (45-73); Platelet Count 225 X10*3/uL (160-400); Red Blood Count 3.97 X10*6/uL (4.20-5.50); Red Cell Distribution Width 13.5 % (11.0-16.0); White Blood Count 6.1 X10*3/uL (4.8-10.8)
[2021-03-26 11:58] LABS: INTERNATIONAL NORM RATIO 1.1 (0.9-1.1); Prothrombin Time 13.2 SEC (10.8-13.0)
[2021-03-26 12:20] LABS: Lactic Acid 1.7 mmol/L (0.5-2.0)
[2021-03-26 12:25] LABS: Alanine Aminotransferase 15 U/L (0-31); Albumin Level 3.5 g/dL (3.5-5.0); Alkaline Phosphatase 80 U/L (39-117); Anion Gap 12 (12-20); Aspartate Amino Transferase 16 U/L (5-31); Bilirubin Direct < 0.2 mg/dL (0.0-0.5); Bilirubin Total 0.2 mg/dL (0.0-1.0); Blood Urea Nitrogen 13 mg/dL (9-16); Calcium 9.2 mg/dL (8.4-10.2); Carbon Dioxide 27 mmol/L (22-29); Chloride 106 mmol/L (96-108); Creatinine Clr Calc Pharmacy 77.2; Estimated Glomerular Filt Rate > 60; Glucose Random 79 mg/dL (60-115); Potassium 4.1 mmol/L (3.3-5.1); Sodium 141 mmol/L (135-145); Total Protein 6.5 g/dL (6.5-8.0)
[2021-03-26 12:33] LABS: Troponin-I High Sensitivity 3.8 ng/L (<3.5-17.0)
[2021-03-26] MEDS: Acetaminophen 325 MG TABLET 650 MG PO (12:43)
== END 2021-03-26 14:14 | disposition home or self-care (01) ==
PROVIDERS: Nurse Practitioner Family; Emergency Provider Emergency Medicine; PCP Internal Medicine
DX: J45.901 Unspecified asthma with (acute) exacerbation (principal); R05 Cough; M79.10 Myalgia, unspecified site; R06.02 Shortness of breath; I10 Essential (primary) hypertension; R19.7 Diarrhea, unspecified; Z20.822 Contact with and (suspected) exposure to COVID-19; Z79.899 Other long term (current) drug therapy
CPT/HCPCS: 36415; 71045; 80048; 80076; 83605; 83735; 84484; 85025; 85610; 87040; 87635; 93005; 94640; 96360; 96375; 99284; J2930; J3475

== ENCOUNTER → 2021-04-09 18:50 | Outpatient (REF) | payer OTHER, SELFPAY | LOC: HO.SL 18:50 | PROVIDERS: Visit Provider Hospitalist | DX: G47.33 Obstructive sleep apnea (adult) (pediatric) (principal); G89.4 Chronic pain syndrome; M47.816 Spondylosis without myelopathy or radiculopathy, lumbar region; M54.5 Low back pain; G90.522 Complex regional pain syndrome I of left lower limb; Z79.891 Long term (current) use of opiate analgesic | CPT/HCPCS: 95810; 99212 ==

== ENCOUNTER 2021-04-16 09:24 | Outpatient (REF) | payer OTHER, SELFPAY | END 2021-04-16 09:25 | disposition home or self-care (01) | LOC: HO.MDS 09:24 | PROVIDERS: PCP Internal Medicine; Visit Provider Hospitalist | DX: D80.1 Nonfamilial hypogammaglobulinemia (principal) | CPT/HCPCS: 96365; 96366 ==

== ENCOUNTER 2021-04-23 13:38 | Emergency (ER) | payer OTHER, SELFPAY ==
--- NOTE | ~2021-04-23 | XR_ITS ---
EXAMINATION: XR CHEST CLINICAL INFORMATION: Asthma. COMPARISON: None TECHNIQUE: Frontal view of the chest was obtained. FINDINGS: The lungs are well-expanded and clear of acute process. Heart size and pulmonary vascularity is normal. No gross bony abnormality seen. XR/XR chest 1V IMPRESSION: Unremarkable chest exam.
[2021-04-23 13:59] VITALS: BP 121/66; PULSE 74; RESP 20; TEMP 36.7; O2SAT 98; BMI 39.4
[2021-04-23 17:15] VITALS: BP 135/84; PULSE 62; RESP 12; O2SAT 100
--- NOTE | 2021-04-23 17:52 | ECG_ITS ---
Test Reason : UPPER RESPITORY Blood Pressure : / mmHG Vent. Rate : 071 BPM Atrial Rate : 071 BPM P-R Int : 104 ms QRS Dur : 100 ms QT Int : 426 ms P-R-T Axes : 044 022 032 degrees QTc Int : 462 ms Sinus rhythm with short MS Otherwise normal ECG When compared with ECG of 26-MAR-2021 11:37, MS interval has decreased Referred By: Catrachita Givens Electronically Signed By:Valerio Dean
[2021-04-23 18:04] VITALS: PULSE 64; O2SAT 98
[2021-04-23] MEDS: Albuterol/Iprat 2.5/0.5MG 3 ML AMPUL.NEB INHALE (18:04)
--- NOTE | 2021-04-23 18:09 | ED.URI ---
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 Has some mild chest discomfort with coughing. No fevers, chills, abdominal pain, vomiting, diarrhea. She is complaining some shortness of breath with exertion. She is currently using her albuterol MDI, nebulizer machine, Singulair and prednisone 20 mg daily with continued symptoms. She has a history of multiple admissions for asthma. No history of intubations Related Data Home Medications Medication Instructions Recorded Confirmed montelukast 10 mg PO DAILY 08/02/20 04/09/21 quetiapine [Seroquel] 300 mg PO DAILY 08/02/20 04/09/21 zolpidem [Ambien] 10 mg PO BEDTIME PRN 08/02/20 04/09/21 apixaban 5 mg tablet 5 mg PO BID 11/05/20 04/09/21 cyanocobalamin (vitamin B-12) 1,000 mcg PO DAILY 11/05/20 04/09/21 1,000 mcg tablet lorazepam 0.5 mg tablet 0.5 mg PO DAILY PRN 11/05/20 04/09/21 losartan 50 mg tablet 50 mg PO DAILY 11/05/20 04/09/21 alclometasone 1 appl TOPICAL BID PRN 12/12/20 04/09/21 escitalopram oxalate 1 tab PO DAILY 12/12/20 04/09/21 fluocinonide 1 appl TOPICAL BID PRN 12/12/20 04/09/21 hydroxyzine HCl 1 tab PO QID PRN 12/12/20 04/09/21 immun glob G(IgG)-pro-IgA 0-50 40 g IV Q4W 12/12/20 04/09/21 [Privigen] cholecalciferol (vitamin D3) 25 25 mcg PO DAILY 03/19/21 04/09/21 mcg (1,000 unit) tablet Previous Rx's Medication Instructions Recorded albuterol sulfate 1 inh INHALATION QID PRN #18 g 10/13/20 melatonin 5 mg capsule 5 mg PO .nightly 30 Days #30 cap 12/02/20 omeprazole 20 mg capsule,delayed 20 mg PO DAILY 30 Days #30 cap 12/02/20 release lidocaine 5 % topical patch 1 patch TOPICAL DAILY 30 Days #30 12/24/20 ea cephalexin 500 mg PO Q12H 7 Days #14 cap 01/26/21 sucralfate 1 gram tablet 4 g PO DAILY 30 Days #120 tab 02/07/21 dicyclomine 10 mg capsule 20 mg PO QID PRN #240 cap 02/12/21 diphenoxylate-atropine [Lomotil] 1 tab PO Q8H PRN #7 tab 02/26/21 diphenoxylate-atropine [Lomotil] 1 tab PO TID-QID PRN #7 tab 02/26/21 hydroxyzine HCl 25 mg tablet 25 mg PO BEDTIME #60 tab 02/26/21 benzonatate 200 mg capsule 200 mg PO TID PRN 30 Days #60 cap 03/19/21 budesonide-formoterol HFA 160 2 puff INHALATION BID 30 Days 03/19/21 mcg-4.5 mcg/actuation aerosol #10.2 g inhaler dextromethorphan-guaifenesin 5 10 ml PO Q6H PRN 30 Days #355 ml 03/19/21 mg-100 mg/5 mL oral liquid azithromycin 500 mg tablet 500 mg PO DAILY 3 Days #3 tab 03/27/21 prednisone 10 mg tablet 10 mg PO DAILY 18 Days #63 tab 03/27/21 oxycodone 5 mg tablet 5 mg PO Q8H PRN 30 Days #90 tab 04/09/21 gabapentin 300 mg capsule 600 mg PO BID 30 Days #120 cap 04/14/21 benzonatate [Tessalon Perles] 100 mg PO TID PRN #20 cap 04/23/21 dextromethorphan-guaifenesin 10 ml PO Q8H PRN #118 ml 04/23/21 [Robitussin Cough-Chest Sandro DM] prednisone 60 mg PO DAILY #12 tab 04/23/21 Allergies Allergy/AdvReac Type Severity Reaction Status Date / Time No Known Allergies Allergy Verified 04/23/21 13:59 Review of Systems Review of Systems: Yes all other systems are reviewed and are negative Constitutional: Constitutional: Reports no additional constitutional complaints, Denies body ache(s), Denies chills, Denies fever(s), Denies headache(s) and Denies weakness Eyes: Eyes: Reports no additional eye complaints and Denies change in vision ENT: Reports system reviewed and no additional complaints, except as documented, Denies dizziness, Denies headache(s), Denies nasal congestion, Denies nasal discharge and Denies neck pain Cardiovascular: Cardiovascular: Reports no additional cardiovascular complaints, Reports chest pain, Denies leg edema and Reports dyspnea Respiratory: Respiratory: Reports no additional respiratory complaints, Reports cough and Reports dyspnea Gastrointestinal: Gastrointestinal: Reports no additional gastrointestinal complaints, Denies abdominal pain, Denies diarrhea, Denies nausea and Denies vomiting Genitourinary: Genitourinary: Reports no additional female genitourinary complaints and Denies urinary incontinence Musculoskeletal: Musculoskeletal: Reports no additional musculoskeletal complaints, Denies back pain, Denies arthralgias, Denies joint swelling, Denies neck pain, Denies numbness and Denies tingling Integumentary/Breasts: Skin/Breast: Reports system reviewed and no additional complaints, except as docu and Denies rash Neurologic: Denies Abnormal speech present, Denies dizziness, Denies headache(s), Denies numbness, Denies tingling and Denies weakness PMFSH Past Medical History Attestation statement: The following information was validated with the patient. Source: old records reviewed and nursing notes reviewed Medical History Anemia Arthritis Asthma Back pain Chronic pain syndrome Complex regional pain syndrome i of left lower limb Cough Depression Diabetic neuropathy Diet-controlled diabetes mellitus Essential hypertension Fibromyalgia Hypogammaglobulinemia Hypothyroidism Laryngotracheitis Low back pain Migraines Morbid obesity BABATUNDE (obstructive sleep apnea) Pleuritic chest pain Pulmonary embolism Sleep apnea Spondylosis of lumbar spine TIA (transient ischemic attack) Type 2 diabetes mellitus with unspecified complications Surgical History History of bariatric surgery History of cholecystectomy History of esophagogastroduodenoscopy (EGD) Hx of colonoscopy S/P total abdominal hysterectomy Family History Family History Mother Diabetes Stroke Family/Other Diabetes Father Diabetes Social History Social History Household Members: None Alcohol intake: never Advance Directives: No Advance Directives Information Provided: Yes Patient : No service: No Current occupational status: disabled Physical Exam Vital Signs: Vital Signs: Last Vital Signs Temp 98.1 F 04/23/21 13:59 Pulse 57 04/23/21 22:33 Resp 12 04/23/21 22:33 BP 142/60 H 04/23/21 22:33 Pulse Ox 98 04/23/21 22:33 Body Mass Index 39.4 Const: General: cooperative, healthy appearing, comfortable and no acute distress Orientation/consciousness: patient oriented x3 Limitations: no limitations HENMT: Head: Yes normal to inspection Ears: hearing grossly normal bilaterally General nose exam: Normal external nose present Face and sinus: Yes normal facial exam Mouth: Normal oral and palatal mucosa present Throat: Yes posterior oropharynx normal Eyes: General: appearance normal, both eyes and all related structures Pupils: Equal, round and reactive pupils present Neck: Neck: Yes normal visual inspection Chest: Other: Central chest tender to palpate, worsened with palpation and movement Chest palpation & inspection: normal inspection of the chest Resp: Other: Inspiratory and expiratory wheezing throughout. Frequent dry cough. Effort & Inspection: normal respiratory effort Cardio: Rate: regular rate Rhythm: regular rhythm Peripheral pulses: Peripheral pulses 2+ throughout GI: Inspection: Yes normal to inspection Palpation (GI): Soft to palpation and nontender Auscultation: normal bowel sounds Back/Spine/Pelvis: Thoracic/Lumbar Spine: thoracic and lumbar spine normal to inspection Skin: General skin exam: no rashes or lesions noted Neuro: General: patient oriented x3, no focal motor deficits and normal sensation to monofilament Cranial nerves: Yes Equal, round and reactive pupils present Cognition (Neuro): normal cognition Speech: No Abnormal speech present Gait exam (Neuro): Normal gait present Motor exam (neuro): 5/5 motor strength present throughout Extrem: General: Yes normal to inspection, Yes no pedal edema and Yes no calf tenderness Course Course Course Narrative: 51-year-old female with past medical history of asthma here with complaints of cough, wheezing, shortness of breath, chest discomfort with coughing and deep breathing x5 days unrelieved with home MDI, nebulizers, singular and prednisone 20 mg. On arrival the patient has his door and expiratory wheezing throughout. No respiratory distress. She does have a frequent bronchospastic cough with stable saturations on room air. Will check chest x-ray, EKG, COVID screen, labs. Give DuoNeb, magnesium, Solu-Medrol and cough suppressant -EKG, labs, chest x-ray showed no acute finding. Patient is feeling less wheezy and short of breath but does still have a frequent dry cough. She was able to ambulate around the emergency department with a pulse oximeter greater than 96% and no tachypnea. I offered increasing her dose of prednisone for the next several days and then doing a taper but the patient's tells me that she only wants to do 20 mg of prednisone daily. We discussed this is likely her asthma. Will send her home with cough suppressants. Recommend following up with her hands and dial inspector outpatient. Reviewed worrisome signs and symptoms and when to return to the emergency department. Comfortable discharge home. MDM - URI/Sore Throat Differential Diagnosis Differential diagnosis: Likely upper respiratory infection and viral infection Medical Records Attestation: I reviewed the patient's medical records. Lab Data Attestation: I reviewed the patient's lab results. Result diagrams: 04/23/21 18:18 04/23/21 18:18 Labs: Lab Results 04/23/21 04/23/21 04/23/21 Range/Units 18:14 18:18 18:18 WBC 8.9 (4.8-10.8) X10*3/uL RBC 4.06 L (4.20-5.50) X10*6/uL Hgb 12.6 (12.0-16.0) g/dl Hct 39.4 (37-47) % MCV 97.0 (80-98) fL MCH 31.0 (27.0-33.0) pg MCHC 32.0 (31.0-35.0) g/dl RDW 13.1 (11.0-16.0) % Plt Count 258 (160-400) X10*3/uL MPV 8.3 L (9.4-12.3) fL Immature Gran % (Auto) 0.9 H (0.0-0.4) % Neut % (Auto) 82.4 H (45-73) % Lymph % (Auto) 12.8 L (20-40) % Cook % (Auto) 3.6 (2-11) % Eos % (Auto) 0.2 (0-4) % Baso % (Auto) 0.1 (0-2) % Lymph # (Auto) 1.1 L (1.2-4.9) X10*3/uL Cook # (Auto) 0.3 (0.1-1.2) X10*3/uL Eos # (Auto) 0.0 (0.0-0.4) X10*3/uL Baso # (Auto) 0.0 (0.0-0.2) X10*3/uL Abs Immat Gran (auto) 0.08 H (0.00-0.03) X10*3/uL Absolute Neuts (auto) 7.3 (2.0-8.3) X10*3/uL Absolute Nucleated RBC 0.000 (0.0-0.012) X10*3/uL Nucleated RBC % (auto) 0.0 (0.0-0.2) /100WBC Sodium 135 (135-145) mmol/L Potassium 5.2 H D (3.3-5.1) mmol/L Chloride 102 (96-108) mmol/L Carbon Dioxide 25 (22-29) mmol/L Anion Gap 13 (12-20) BUN 20 H D (9-16) mg/dL Creatinine 0.89 (0.5-1.4) mg/dL Estim Creat Clear Calc 71.5 Estimated GFR > 60 POC Glucose (60-115) mg/dL Random Glucose 90 (60-115) mg/dL Calcium 9.9 D (8.4-10.2) mg/dL Magnesium (1.6-2.6) mg/dL Total Bilirubin 0.5 (0.0-1.0) mg/dL Direct Bilirubin 0.2 (0.0-0.5) mg/dL AST 17 (5-31) U/L ALT 15 (0-31) U/L Alkaline Phosphatase 75 (39-117) U/L Troponin I High Sens (<3.5-17.0) ng/L Total Protein 6.8 (6.5-8.0) g/dL Albumin 3.8 (3.5-5.0) g/dL COVID-19 ([facility]) Negative (Negative) COVID-19 Clin Com See Note 04/23/21 04/23/21 04/23/21 Range/Units 18:18 18:18 22:35 WBC (4.8-10.8) X10*3/uL RBC (4.20-5.50) X10*6/uL Hgb (12.0-16.0) g/dl Hct (37-47) % MCV (80-98) fL MCH (27.0-33.0) pg MCHC (31.0-35.0) g/dl RDW (11.0-16.0) % Plt Count (160-400) X10*3/uL MPV (9.4-12.3) fL Immature Gran % (Auto) (0.0-0.4) % Neut % (Auto) (45-73) % Lymph % (Auto) (20-40) % Cook % (Auto) (2-11) % Eos % (Auto) (0-4) % Baso % (Auto) (0-2) % Lymph # (Auto) (1.2-4.9) X10*3/uL Cook # (Auto) (0.1-1.2) X10*3/uL Eos # (Auto) (0.0-0.4) X10*3/uL Baso # (Auto) (0.0-0.2) X10*3/uL Abs Immat Gran (auto) (0.00-0.03) X10*3/uL Absolute Neuts (auto) (2.0-8.3) X10*3/uL Absolute Nucleated RBC (0.0-0.012) X10*3/uL Nucleated RBC % (auto) (0.0-0.2) /100WBC Sodium (135-145) mmol/L Potassium (3.3-5.1) mmol/L Chloride (96-108) mmol/L Carbon Dioxide (22-29) mmol/L Anion Gap (12-20) BUN (9-16) mg/dL Creatinine (0.5-1.4) mg/dL Estim Creat Clear Calc Estimated GFR POC Glucose 129 H (60-115) mg/dL Random Glucose (60-115) mg/dL Calcium (8.4-10.2) mg/dL Magnesium 2.0 (1.6-2.6) mg/dL Total Bilirubin (0.0-1.0) mg/dL Direct Bilirubin (0.0-0.5) mg/dL AST (5-31) U/L ALT (0-31) U/L Alkaline Phosphatase (39-117) U/L Troponin I High Sens 3.8 (<3.5-17.0) ng/L Total Protein (6.5-8.0) g/dL Albumin (3.5-5.0) g/dL COVID-19 ([facility]) (Negative) COVID-19 Clin Com Imaging Data Chest x-ray: Attestation: I personally reviewed and interpreted this imaging study as follows: Radiologist's impression: EXAMINATION: XR CHEST CLINICAL INFORMATION: Asthma. COMPARISON: None TECHNIQUE: Frontal view of the chest was obtained. FINDINGS: The lungs are well-expanded and clear of acute process. Heart size and pulmonary vascularity is normal. No gross bony abnormality seen. XR/XR chest 1V IMPRESSION: Unremarkable chest exam. ECG Data Attestation: I personally reviewed and interpreted this ECG as follows: ECG interpretation date: 04/23/21 ECG interpretation time: 18:44 Interpretation: Normal sinus rhythm with a rate of 71, normal OK, normal QRS, Discharge Plan Discharge Clinical Impression: Asthma Qualifiers: Asthma severity: moderate Asthma persistence: persistent Asthma complication type: with acute exacerbation Qualified Code(s): J45.41 - Moderate persistent asthma with (acute) exacerbation Patient Disposition: Home, Self-Care Instructions: Asthma (ED) Additional Instructions: Start prednisone tomorrow Increase fluids, rest Prescriptions: New prednisone 20 mg tablet 60 mg PO DAILY Qty: 12 RF: 0 benzonatate [Tessalon Perles] 100 mg capsule 100 mg PO TID PRN (Reason: cough) Qty: 20 RF: 0 Robitussin Cough-Chest Sandro DM 5-100 mg/5 mL liquid 10 ml PO Q8H PRN (Reason: cough) Qty: 118 RF: 0 No Action sucralfate [Carafate] 1 gram tablet 4 g PO DAILY 30 Days Qty: 120 RF: 2 dicyclomine 10 mg capsule 20 mg PO QID PRN (Reason: for cramps) Qty: 240 RF: 1 prednisone 10 mg tablet 10 mg PO DAILY 18 Days Qty: 63 RF: 0 azithromycin 500 mg tablet 500 mg PO DAILY 3 Days Qty: 3 RF: 0 gabapentin [Neurontin] 300 mg capsule 600 mg PO BID 30 Days Qty: 120 RF: 11 alclometasone 0.05 % cream 1 appl topical BID PRN (Reason: Rash) RF: 0 fluocinonide 0.05 % ointment 1 appl topical BID PRN (Reason: Rash) RF: 0 hydroxyzine HCl 25 mg tablet 1 tab PO QID PRN (Reason: Anxiety) RF: 0 escitalopram oxalate 10 mg tablet 1 tab PO DAILY RF: 0 Privigen 10 % solution 40 g IV Q4W RF: 0 cephalexin 500 mg capsule 500 mg PO Q12H 7 Days Qty: 14 RF: 0 diphenoxylate-atropine [Lomotil] 2.5-0.025 mg tablet 1 tab PO Q8H PRN (Reason: diarrhea) Qty: 7 RF: 0 diphenoxylate-atropine [Lomotil] 2.5-0.025 mg tablet 1 tab PO TID-QID PRN (Reason: diarrhea) Qty: 7 RF: 0 quetiapine [Seroquel] 300 mg Tablet 300 mg PO DAILY RF: 0 montelukast 10 mg tablet 10 mg PO DAILY RF: 0 zolpidem [Ambien] 10 mg Tablet 10 mg PO BEDTIME PRN (Reason: Insomnia) RF: 0 albuterol sulfate 90 mcg/actuation HFA aerosol inhaler 1 inh inhalation QID PRN (Reason: shortness of breath or wheezing) Qty: 18 RF: 0 cholecalciferol (vitamin D3) 25 mcg (1,000 unit) tablet 25 mcg PO DAILY RF: 0 budesonide-formoterol [Symbicort] 160-4.5 mcg/actuation HFA aerosol inhaler 2 puff inhalation BID 30 Days Qty: 10.2 RF: 11 benzonatate 200 mg capsule 200 mg PO TID PRN (Reason: cough) 30 Days Qty: 60 RF: 3 Robitussin Cough-Chest Sandro DM 5-100 mg/5 mL liquid 10 ml PO Q6H PRN (Reason: cough) 30 Days Qty: 355 RF: 3 oxycodone 5 mg tablet 5 mg PO Q8H PRN (Reason: pain) 30 Days Qty: 90 RF: 0 lorazepam 0.5 mg tablet 0.5 mg PO DAILY PRN (Reason: anxiety) RF: 0 losartan 50 mg tablet 50 mg PO DAILY RF: 0 cyanocobalamin (vitamin B-12) 1,000 mcg tablet 1,000 mcg PO DAILY RF: 0 apixaban 5 mg tablet 5 mg PO BID RF: 0 melatonin 5 mg capsule 5 mg PO .nightly 30 Days Qty: 30 RF: 6 omeprazole 20 mg capsule,delayed release(DR/EC) 20 mg PO DAILY 30 Days Qty: 30 RF: 0 lidocaine [Lidoderm] 5 % adhesive patch,medicated 1 patch topical DAILY 30 Days Qty: 30 RF: 11 hydroxyzine HCl 25 mg tablet 25 mg PO BEDTIME Qty: 60 RF: 10 Interventions: ED Discharge Assessment Last Done: 04/23/21 22:38 Discharge Date/Time: 04/23/21 22:41
[2021-04-23] MEDS: methylPREDNISolone Sod Succ 125 MG/2 ML VIAL 80 MG IVPUSH (18:23)
[2021-04-23] MEDS: guaiFEN/Codeine SF 200/20/10ML 10 ML LIQUID PO (18:23)
[2021-04-23 18:25] LABS: MANUAL DIFF FLAG NO
[2021-04-23] MEDS: Magnesium Sulfate/H2O 2 GM/50 ML PIGGYBACK IV (18:25)
[2021-04-23 18:27] LABS: Basophils Percent Auto 0.1 % (0-2); Eosinophils Percent Auto 0.2 % (0-4); Hematocrit 39.4 % (37-47); Hemoglobin 12.6 g/dl (12.0-16.0); Imm Gran Abs Auto 0.08 X10*3/uL (0.00-0.03); Imm Gran Pct Auto 0.9 % (0.0-0.4); Lymphocytes Absolute Auto 1.1 X10*3/uL (1.2-4.9); Lymphocytes Percent Auto 12.8 % (20-40); Mean Platelet Volume 8.3 fL (9.4-12.3); Monocytes Absolute Auto 0.3 X10*3/uL (0.1-1.2); Monocytes Percent Auto 3.6 % (2-11); Neutrophils Absolute Auto 7.3 X10*3/uL (2.0-8.3); Neutrophils Percent Auto 82.4 % (45-73); Platelet Count 258 X10*3/uL (160-400); Red Blood Count 4.06 X10*6/uL (4.20-5.50); Red Cell Distribution Width 13.1 % (11.0-16.0); White Blood Count 8.9 X10*3/uL (4.8-10.8)
[2021-04-23 18:44] LABS: COVID-19 Test Negative (Negative); IDNOW Serial# 08D9AD1C
[2021-04-23 18:55] LABS: Alanine Aminotransferase 15 U/L (0-31); Albumin Level 3.8 g/dL (3.5-5.0); Alkaline Phosphatase 75 U/L (39-117); Anion Gap 13 (12-20); Aspartate Amino Transferase 17 U/L (5-31); Bilirubin Direct 0.2 mg/dL (0.0-0.5); Bilirubin Total 0.5 mg/dL (0.0-1.0); Blood Urea Nitrogen 20 mg/dL (9-16); Calcium 9.9 mg/dL (8.4-10.2); Carbon Dioxide 25 mmol/L (22-29); Chloride 102 mmol/L (96-108); Creatinine Clr Calc Pharmacy 71.5; Estimated Glomerular Filt Rate > 60; Glucose Random 90 mg/dL (60-115); Potassium 5.2 mmol/L (3.3-5.1); Sodium 135 mmol/L (135-145); Total Protein 6.8 g/dL (6.5-8.0)
[2021-04-23 18:56] VITALS: BP 137/62; PULSE 61; RESP 12; O2SAT 96
[2021-04-23 18:57] LABS: Troponin-I High Sensitivity 3.8 ng/L (<3.5-17.0)
--- NOTE | 2021-04-23 20:11 | PC.NURSE ---
REPORT TAKEN FROM [facility], FIRST CONTACT WITH PT. SITTING UP IN BED A&Ox3, SKIN PWD RESPIRATIONS EVEN UNLABORED, CONTINUOUS DRY COUGH NOTED, AWAITING RESULTS AND MD REEVAL. AWARE OF PLAN OF CARE.
[2021-04-23 22:33] VITALS: BP 142/60; PULSE 57; RESP 12; O2SAT 98
[2021-04-23 22:40] LABS: Glucose, Whole Blood 129 mg/dL (60-115)
== END 2021-04-23 22:41 | disposition home or self-care (01) ==
PROVIDERS: Nurse Practitioner Family; Emergency Provider Emergency Medicine
DX: J45.41 Moderate persistent asthma with (acute) exacerbation (principal); E11.9 Type 2 diabetes mellitus without complications; I10 Essential (primary) hypertension; Z79.01 Long term (current) use of anticoagulants; Z79.52 Long term (current) use of systemic steroids; Z79.899 Other long term (current) drug therapy; Z86.711 Personal history of pulmonary embolism; Z86.73 Personal history of transient ischemic attack (TIA), and cerebral infarction without residual deficits; Z20.822 Contact with and (suspected) exposure to COVID-19
CPT/HCPCS: 36415; 71045; 80048; 80076; 82947; 83735; 84484; 85025; 87635; 93005; 94640; 96365; 96366; 96375; 99284; 99285; J2930; J3475

== ENCOUNTER → 2021-05-08 14:00 | Outpatient (BNVA) | payer OTHER, SELFPAY | PROVIDERS: PCP Internal Medicine; Visit Provider Hospitalist | DX: G47.33 Obstructive sleep apnea (adult) (pediatric) (principal); R05 Cough; I27.82 Chronic pulmonary embolism; J45.41 Moderate persistent asthma with (acute) exacerbation; M19.90 Unspecified osteoarthritis, unspecified site | CPT/HCPCS: 99212 ==

== ENCOUNTER → 2021-05-09 13:16 | Outpatient (BNVA) | payer OTHER, SELFPAY | PROVIDERS: PCP Internal Medicine; Visit Provider Nurse Practitioner Family | DX: G90.522 Complex regional pain syndrome I of left lower limb (principal); M54.5 Low back pain; M47.816 Spondylosis without myelopathy or radiculopathy, lumbar region; G89.4 Chronic pain syndrome | CPT/HCPCS: 99212 ==

== ENCOUNTER 2021-05-12 11:47 | Inpatient (IN) | payer OTHER, SELFPAY ==
--- NOTE | 2021-05-12 | ECG_ITS ---
Test Reason : DIZZY Blood Pressure : / mmHG Vent. Rate : 093 BPM Atrial Rate : 093 BPM P-R Int : 142 ms QRS Dur : 100 ms QT Int : 380 ms P-R-T Axes : 042 000 012 degrees QTc Int : 472 ms Normal sinus rhythm RSR' or QR pattern in V1 suggests right ventricular conduction delay Nonspecific T wave abnormality Prolonged QT Abnormal ECG When compared with ECG of 23-APR-2021 18:44, No significant change was found Referred By: Generic ED Physician Electronically Signed By:Valerio Dean
--- NOTE | ~2021-05-12 | XR_ITS ---
EXAMINATION: XR CHEST CLINICAL INFORMATION: Headache/cough/chest pain COMPARISON: Chest 04/23/2021. TECHNIQUE: Frontal view of the chest was obtained. FINDINGS: The lungs are fairly well-expanded and clear acute process. The heart size and pulmonary vascularity is normal. No gross bony abnormality seen. XR/XR chest 1V IMPRESSION: Unremarkable chest exam
--- NOTE | ~2021-05-12 | CT_ITS ---
EXAMINATION: CT HEAD WITHOUT CONTRAST CLINICAL INFORMATION: Headache. On blood thinning medicine. COMPARISON: None TECHNIQUE: Contiguous axial imaging was performed from the skull base to vertex without intravenous administration of contrast. This CT examination was performed using dose optimization techniques as appropriate, variously including the following: *Automated exposure control *Adjustment of mA and/or kV according to patient size (this includes techniques or standardized protocols for targeted exams where dose is matched to indication/reason for exam; i.e. extremities or head) *Use of iterative reconstruction technique DLP: 635 mGy-cm FINDINGS: There is no evidence of acute intracranial hemorrhage or territorial infarction. No abnormal mass effect or midline shift is seen. Hua to white matter differentiation is well preserved. No extra-axial fluid collections are identified. The ventricles are normal in size. There is no abnormal attenuation within the brain parenchyma. There is a benign frontal hyperostosis interna. The osseous structures and soft tissues are otherwise normal. The mastoid air cells and visualized portions of the paranasal sinuses are well aerated. CT/CT head/brain wo con IMPRESSION: No evidence of hemorrhage. No acute intracranial findings.
[2021-05-12 12:25] VITALS: BP 101/71; PULSE 98; RESP 19; TEMP 37; O2SAT 97; BMI 39.4
[2021-05-12] MEDS: Albuterol Sulfate (0.083%) 2.5 MG/3 ML VIAL.NEB INHALE ×2 (13:56→20:11)
[2021-05-12 14:00] VITALS: PULSE 89; O2SAT 96
[2021-05-12 14:07] LABS: Basophils Percent Auto 0.1 % (0-2); Hematocrit 39.6 % (37-47); Hemoglobin 12.4 g/dl (12.0-16.0); Imm Gran Abs Auto 0.16 X10*3/uL (0.00-0.03); Imm Gran Pct Auto 1.7 % (0.0-0.4); Lymphocytes Absolute Auto 0.4 X10*3/uL (1.2-4.9); Lymphocytes Percent Auto 4.3 % (20-40); MANUAL DIFF FLAG SCAN; Mean Corpuscular HGB Conc 31.3 g/dl (31.0-35.0); Mean Corpuscular Hemoglobin 31.1 pg (27.0-33.0); Mean Corpuscular Volume 99.2 fL (80-98); Mean Platelet Volume 8.5 fL (9.4-12.3); Monocytes Absolute Auto 0.2 X10*3/uL (0.1-1.2); Monocytes Percent Auto 2.2 % (2-11); Neutrophils Absolute Auto 8.5 X10*3/uL (2.0-8.3); Neutrophils Percent Auto 91.7 % (45-73); Platelet Count 211 X10*3/uL (160-400); Red Blood Count 3.99 X10*6/uL (4.20-5.50); Red Cell Distribution Width 13.4 % (11.0-16.0); SCAN SMEAR FLAG 1; White Blood Count 9.3 X10*3/uL (4.8-10.8)
[2021-05-12] MEDS: guaiFEN/Codeine SF 200/20/10ML 10 ML LIQUID PO (14:26)
--- NOTE | 2021-05-12 14:27 | PC.NURSE ---
Labs drawn, iV inserted, and pt medicated for cough. Awaiting labs at this time.
[2021-05-12 14:28] LABS: INTERNATIONAL NORM RATIO 1.2 (0.9-1.1); Prothrombin Time 13.6 SEC (9.9-13.0)
--- NOTE | 2021-05-12 14:30 | ED.GENADULT ---
HPI - General Adult General Chief complaint: General Medical Stated complaint: headaches Time Seen by Provider: 05/12/21 13:29 Source: patient Mode of arrival: ambulatory Limitations: no limitations History of Present Illness HPI narrative: 51-year-old female With a past medical history of pulmonary embolism currently on Eliquis and taking as prescribed daily, pleuritic chest pain, TIA, diet-controlled diabetes, migraine headache, hypogammaglobulinem, hypothyroidism, fibromyalgia, arthritis, sleep apnea and asthma presenting to the ED dry cough with wheezing for the past month worse today with associated chills. She reports associated chest discomfort with coughing and shortness of breath with exertion. Also reports that now she has a migraine headache with associated nausea/vomiting and dizziness which is similar to her prior migraine headaches. She is currently using her albuterol MDI, multiple times of nebulizer machine and Singulair with continued symptoms. She has a history of multiple admissions for asthma. No history of intubations. She denies any measured fevers, change in vision, neck pain/stiffness, orthopnea, palpitations, abdominal pain, diarrhea, constipation, dysuria, lower extremity edema, recent travel or sick contacts or any other symptoms complaints or concerns at this time. Related Data Home Medications Medication Instructions Recorded Confirmed montelukast 10 mg PO DAILY 08/02/20 05/09/21 quetiapine [Seroquel] 300 mg PO DAILY 08/02/20 05/09/21 apixaban 5 mg tablet 5 mg PO BID 11/05/20 05/09/21 cyanocobalamin (vitamin B-12) 1,000 mcg PO DAILY 11/05/20 05/09/21 1,000 mcg tablet losartan 50 mg tablet 50 mg PO DAILY 11/05/20 05/09/21 alclometasone 1 appl TOPICAL BID PRN 12/12/20 05/09/21 escitalopram oxalate 1 tab PO DAILY 12/12/20 05/09/21 fluocinonide 1 appl TOPICAL BID PRN 12/12/20 05/09/21 hydroxyzine HCl 1 tab PO QID PRN 12/12/20 05/09/21 immun glob G(IgG)-pro-IgA 0-50 40 g IV Q4W 12/12/20 05/09/21 [Privigen] cholecalciferol (vitamin D3) 25 25 mcg PO DAILY 03/19/21 05/09/21 mcg (1,000 unit) tablet Previous Rx's Medication Instructions Recorded albuterol sulfate 1 inh INHALATION QID PRN #18 g 10/13/20 melatonin 5 mg capsule 5 mg PO .nightly 30 Days #30 cap 12/02/20 omeprazole 20 mg capsule,delayed 20 mg PO DAILY 30 Days #30 cap 12/02/20 release lidocaine 5 % topical patch 1 patch TOPICAL DAILY 30 Days #30 12/24/20 ea cephalexin 500 mg PO Q12H 7 Days #14 cap 01/26/21 sucralfate 1 gram tablet 4 g PO DAILY 30 Days #120 tab 02/07/21 dicyclomine 10 mg capsule 20 mg PO QID PRN #240 cap 02/12/21 diphenoxylate-atropine [Lomotil] 1 tab PO Q8H PRN #7 tab 02/26/21 diphenoxylate-atropine [Lomotil] 1 tab PO TID-QID PRN #7 tab 02/26/21 hydroxyzine HCl 25 mg tablet 25 mg PO BEDTIME #60 tab 02/26/21 benzonatate 200 mg capsule 200 mg PO TID PRN 30 Days #60 cap 03/19/21 budesonide-formoterol HFA 160 2 puff INHALATION BID 30 Days 03/19/21 mcg-4.5 mcg/actuation aerosol #10.2 g inhaler prednisone 10 mg tablet 10 mg PO DAILY 18 Days #63 tab 03/27/21 gabapentin 300 mg capsule 600 mg PO BID 30 Days #120 cap 04/14/21 benzonatate [Tessalon Perles] 100 mg PO TID PRN #20 cap 04/23/21 prednisone 60 mg PO DAILY #12 tab 04/23/21 azithromycin 500 mg tablet 500 mg PO DAILY 3 Days #3 tab 04/24/21 dextromethorphan-guaifenesin 5 10 ml PO Q6H PRN 30 Days #355 ml 04/24/21 mg-100 mg/5 mL oral liquid prednisone 10 mg tablet 10 mg PO DAILY 14 Days #28 tab 04/24/21 benzonatate 200 mg capsule 200 mg PO BID 30 Days #60 cap 05/08/21 dextromethorphan-guaifenesin 5 10 ml PO Q8H PRN 30 Days #355 ml 05/08/21 mg-100 mg/5 mL oral liquid eszopiclone 3 mg tablet 3 mg PO BEDTIME 30 Days #30 tab 05/08/21 naloxone 4 mg/actuation nasal spray 4 mg INTRANASAL Q2M PRN #2 ea 05/09/21 oxycodone 5 mg tablet 5 mg PO Q8H PRN 30 Days #90 tab 05/09/21 Allergies Allergy/AdvReac Type Severity Reaction Status Date / Time No Known Allergies Allergy Verified 05/12/21 12:25 Review of Systems Review of Systems: Constitutional : No Weight loss, No Fever, No Chills, No Night Sweats, No Fatigue, NoMalaise ENT/Mouth: No ear pain, No sore throat, No Difficulty swallowing Cardiovascular : Positive Chest Pain, Positive SOB, Positive Dyspnea on Exertion, No Orthopnea, No Edema, No Palpitations Respiratory : Positive dry cough/wheezing/dyspnea, No Sputum Gastrointestinal : No Nausea, No Vomiting, No abdominal pain, No Diarrhea, No blood streaked emesis, No coffee-ground emesis, No gross hematemesis, No blood streak stool, No gross hematochezia, No Melena Genitourinary : No irregular bleeding, No Dysuria, No Urinary Frequency, No Hematuria,No Urinary Incontinence, No Urgency, No Flank Pain Musculoskeletal : No joint pain, No Myalgias, No Joint Swelling Skin : No Skin Lesions, No rash Neuro : Positive migraine headaches, No Weakness, No Numbness, No Paresthesias, No Loss of Consciousness, NoDizziness Psych : No Social Issues, Heme/Lymph: No Bruising, No Bleeding,No Lymphadenopathy Endocrine : No Polyuria, No Polydipsia, No Temperature Intolerance Yes all other systems are reviewed and are negative [facility] Past Medical History Attestation statement: The following information was validated with the patient. Medical History Anemia Arthritis Asthma Back pain Chronic pain syndrome Complex regional pain syndrome i of left lower limb Cough Depression Diabetic neuropathy Diet-controlled diabetes mellitus Essential hypertension Fibromyalgia Hypogammaglobulinemia Hypothyroidism Laryngotracheitis Low back pain Migraines Morbid obesity BABATUNDE (obstructive sleep apnea) Pleuritic chest pain Pulmonary embolism Sleep apnea Spondylosis of lumbar spine TIA (transient ischemic attack) Type 2 diabetes mellitus with unspecified complications Surgical History History of bariatric surgery History of cholecystectomy History of esophagogastroduodenoscopy (EGD) Hx of colonoscopy S/P total abdominal hysterectomy Family History Family History Mother Diabetes Stroke Family/Other Diabetes Father Diabetes Social History Social History Household Members: None Alcohol intake: never Patient Tobacco Use Status: Never used Tobacco Advance Directives: No Advance Directives Information Provided: No Patient : No service: No Current occupational status: disabled Physical Exam Vital Signs: Vital Signs: Last Vital Signs Temp 98.1 F 05/12/21 15:22 Pulse 101 H 05/12/21 15:22 Resp 18 05/12/21 15:22 BP 122/73 05/12/21 15:22 Pulse Ox 99 05/12/21 15:22 Body Mass Index 39.4 vital signs have been reviewed as normal and appeared to be correct. Blood pressure normal. Heart rate normal. Respiration rate normal. Temperature normal. Oxygen saturation normal. Appearance: Alert. Oriented X3. No acute distress. Head: Normal external exam. Normocephalic. Atraumatic. Eyes: PERRLA. EOMI. Conjunctiva and sclera normal. Eyelids normal. ENT: EAC normal. TM's Normal. Pharynx normal. Uvula midline. Moist mucous membranes. No trismus noted. No drooling noted. No muffled voice noted. Neck: Normal inspection. Neck supple. FROM. No adenopathy. Thyroid Normal. No meningeal signs. No neck mass noted. CVS: Normal heart rate and rhythm. Heart sound normal. Pulses normal throughout. No murmurs/rales/gallops. Respiratory: No respiratory distress. Patient reports pain with deep inspiration and she goes into a coughing fit and she has decreased breath sounds with expiratory and inspiratory wheezing throughout otherwise no rales/rhonchi noted. Chest nontender. No accessory muscle usage noted or decreased air movement noted. Abdomen: Soft and nontender. Bowel sounds normal in all 4 quadrants. No distention noted. No organomegaly noted. No visible injury noted. Back: No CVA tenderness. Full range of motion noted. No rashes/lesion/induration/fluctuance or signs of infection noted. Skin: Skin warm and dry. Normal skin color. Normal skin turgor. No rashes/lesions/lacerations noted. Extremities: No lower extremity edema. No calf tenderness is noted. Extremities exhibit normal range of motion. Extremities nontender. Neuro: Oriented X 3. No motor deficit. No sensory deficit. Reflexes normal. Normal steady gait. No focal neuro deficits noted. Vascular: + radial pulses/+ 2 distal pedal pulses/+2 dorsalis pedis b/l. Normal cap refill. No cyanosis noted to upper extremity nails and lower extremity toes nails. Course Course Course Narrative: 13:40pm - 51-year-old female With a past medical history of pulmonary embolism currently on Eliquis and taking as prescribed daily, pleuritic chest pain, TIA, diet-controlled diabetes, migraine headache, hypogammaglobulinem, hypothyroidism, fibromyalgia, arthritis, sleep apnea and asthma presenting to the ED dry cough with wheezing for the past month worse today with associated chills. She reports associated chest discomfort with coughing and shortness of breath with exertion. Also reports that now she has a migraine headache with associated nausea/vomiting and dizziness which is similar to her prior migraine headaches. She is currently using her albuterol MDI, multiple times of nebulizer machine and Singulair with continued symptoms. Plan: Labs, chest x-ray, EKG, CT scan of brain, respiratory panel swab. Provide a L of IV fluids, breathing treatment 125 mg of IV Solu-Medrol then re-evaluate Reevaluation(s) Reevaluation #1: - Lactic acid 5.1 although I do not believe this is sepsis patient reports she has been using her nebulized solutions around the clock therefore most likely this is related to the nebulized breathing treatments not sepsis - otherwise all other labs are within normal limits. - Patient negative for COVID/RSV/flu. - Chest x-ray within normal limits no acute processes are noted. - EKG normal sinus rhythm with a ventricular rate of 93 with a normal IN interval nonspecific T-wave abnormalities with mildly prolonged QT at 380 milliseconds otherwise no acute ischemic changes are noted. Similar when compared to prior EKG 04/23/2021 - awaiting CT scan of brain will re-evaluate. Time: 13:55 Reevaluation #2: - chest x-ray within normal limits no acute processes are noted. - CT scan of brain within normal limits no acute processes are noted. - repeat lactic acid pending at this time Time: 16:32 Reevaluation #3: - repeat lactate of 5.9 although the patient did not receive the full IV fluids when this was drawn. - although when I went back in to discuss this with the patient she is reporting she still has a headache and her whole body hurts therefore will give more pain meds and plan to admit for asthma exacerbation and migraine headache intractable pain. Discussed this patient with Time: 17:44 Medical Decision Making Lab Data Lab results reviewed: Yes I reviewed the patient's lab results. Result diagrams: 05/12/21 13:55 05/12/21 13:55 Labs: Lab Results 05/12/21 05/12/21 05/12/21 Range/Units 13:55 13:55 13:55 WBC 9.3 (4.8-10.8) X10*3/uL RBC 3.99 L (4.20-5.50) X10*6/uL Hgb 12.4 (12.0-16.0) g/dl Hct 39.6 (37-47) % MCV 99.2 H (80-98) fL MCH 31.1 (27.0-33.0) pg MCHC 31.3 (31.0-35.0) g/dl RDW 13.4 (11.0-16.0) % Plt Count 211 (160-400) X10*3/uL MPV 8.5 L (9.4-12.3) fL Immature Gran % (Auto) 1.7 H (0.0-0.4) % Neut % (Auto) 91.7 H (45-73) % Lymph % (Auto) 4.3 L (20-40) % Carlton % (Auto) 2.2 (2-11) % Eos % (Auto) 0.0 (0-4) % Baso % (Auto) 0.1 (0-2) % Lymph # (Auto) 0.4 L (1.2-4.9) X10*3/uL Carlton # (Auto) 0.2 (0.1-1.2) X10*3/uL Eos # (Auto) 0.0 (0.0-0.4) X10*3/uL Baso # (Auto) 0.0 (0.0-0.2) X10*3/uL Abs Immat Gran (auto) 0.16 H (0.00-0.03) X10*3/uL Absolute Neuts (auto) 8.5 H (2.0-8.3) X10*3/uL Absolute Nucleated RBC 0.000 (0.0-0.012) X10*3/uL Nucleated RBC % (auto) 0.0 (0.0-0.2) /100WBC Smear Tech's Comments VERIFIED PT 13.6 H (9.9-13.0) SEC INR 1.2 H (0.9-1.1) Sodium (135-145) mmol/L Potassium (3.3-5.1) mmol/L Chloride (96-108) mmol/L Carbon Dioxide (22-29) mmol/L Anion Gap (12-20) BUN (9-16) mg/dL Creatinine (0.5-1.4) mg/dL Estim Creat Clear Calc Estimated GFR Random Glucose (60-115) mg/dL Lactic Acid (0.5-2.0) mmol/L Lactic Acid Fup @ 2Hr (0.5-2.0) mmol/L Calcium (8.4-10.2) mg/dL Magnesium 2.0 (1.6-2.6) mg/dL Total Bilirubin (0.0-1.0) mg/dL AST (5-31) U/L ALT (0-31) U/L Alkaline Phosphatase (39-117) U/L Troponin I High Sens (<3.5-17.0) ng/L B-Natriuretic Peptide (<100) pg/mL Total Protein (6.5-8.0) g/dL Albumin (3.5-5.0) g/dL Coronavirus (PCR) (Negative) Influenza Type A (PCR) (Negative) Influenza Type B (PCR) (Negative) RSV RNA Qual (PCR) (Negative) 05/12/21 05/12/21 05/12/21 Range/Units 13:55 13:55 13:55 WBC (4.8-10.8) X10*3/uL RBC (4.20-5.50) X10*6/uL Hgb (12.0-16.0) g/dl Hct (37-47) % MCV (80-98) fL MCH (27.0-33.0) pg MCHC (31.0-35.0) g/dl RDW (11.0-16.0) % Plt Count (160-400) X10*3/uL MPV (9.4-12.3) fL Immature Gran % (Auto) (0.0-0.4) % Neut % (Auto) (45-73) % Lymph % (Auto) (20-40) % Carlton % (Auto) (2-11) % Eos % (Auto) (0-4) % Baso % (Auto) (0-2) % Lymph # (Auto) (1.2-4.9) X10*3/uL Carlton # (Auto) (0.1-1.2) X10*3/uL Eos # (Auto) (0.0-0.4) X10*3/uL Baso # (Auto) (0.0-0.2) X10*3/uL Abs Immat Gran (auto) (0.00-0.03) X10*3/uL Absolute Neuts (auto) (2.0-8.3) X10*3/uL Absolute Nucleated RBC (0.0-0.012) X10*3/uL Nucleated RBC % (auto) (0.0-0.2) /100WBC Smear Tech's Comments PT (9.9-13.0) SEC INR (0.9-1.1) Sodium 140 (135-145) mmol/L Potassium 4.1 D (3.3-5.1) mmol/L Chloride 107 (96-108) mmol/L Carbon Dioxide 20 L (22-29) mmol/L Anion Gap 17 (12-20) BUN 18 H (9-16) mg/dL Creatinine 1.06 (0.5-1.4) mg/dL Estim Creat Clear Calc 60.0 Estimated GFR 54 Random Glucose 180 H D (60-115) mg/dL Lactic Acid 5.1 H* (0.5-2.0) mmol/L Lactic Acid Fup @ 2Hr (0.5-2.0) mmol/L Calcium 9.7 (8.4-10.2) mg/dL Magnesium (1.6-2.6) mg/dL Total Bilirubin 0.2 (0.0-1.0) mg/dL AST 18 (5-31) U/L ALT 29 (0-31) U/L Alkaline Phosphatase 78 (39-117) U/L Troponin I High Sens < 3.5 (<3.5-17.0) ng/L B-Natriuretic Peptide (<100) pg/mL Total Protein 6.7 (6.5-8.0) g/dL Albumin 4.0 (3.5-5.0) g/dL Coronavirus (PCR) (Negative) Influenza Type A (PCR) (Negative) Influenza Type B (PCR) (Negative) RSV RNA Qual (PCR) (Negative) 05/12/21 05/12/21 05/12/21 Range/Units 13:55 13:56 16:23 WBC (4.8-10.8) X10*3/uL RBC (4.20-5.50) X10*6/uL Hgb (12.0-16.0) g/dl Hct (37-47) % MCV (80-98) fL MCH (27.0-33.0) pg MCHC (31.0-35.0) g/dl RDW (11.0-16.0) % Plt Count (160-400) X10*3/uL MPV (9.4-12.3) fL Immature Gran % (Auto) (0.0-0.4) % Neut % (Auto) (45-73) % Lymph % (Auto) (20-40) % Carlton % (Auto) (2-11) % Eos % (Auto) (0-4) % Baso % (Auto) (0-2) % Lymph # (Auto) (1.2-4.9) X10*3/uL Carlton # (Auto) (0.1-1.2) X10*3/uL Eos # (Auto) (0.0-0.4) X10*3/uL Baso # (Auto) (0.0-0.2) X10*3/uL Abs Immat Gran (auto) (0.00-0.03) X10*3/uL Absolute Neuts (auto) (2.0-8.3) X10*3/uL Absolute Nucleated RBC (0.0-0.012) X10*3/uL Nucleated RBC % (auto) (0.0-0.2) /100WBC Smear Tech's Comments PT (9.9-13.0) SEC INR (0.9-1.1) Sodium (135-145) mmol/L Potassium (3.3-5.1) mmol/L Chloride (96-108) mmol/L Carbon Dioxide (22-29) mmol/L Anion Gap (12-20) BUN (9-16) mg/dL Creatinine (0.5-1.4) mg/dL Estim Creat Clear Calc Estimated GFR Random Glucose (60-115) mg/dL Lactic Acid (0.5-2.0) mmol/L Lactic Acid Fup @ 2Hr 5.9 H* (0.5-2.0) mmol/L Calcium (8.4-10.2) mg/dL Magnesium (1.6-2.6) mg/dL Total Bilirubin (0.0-1.0) mg/dL AST (5-31) U/L ALT (0-31) U/L Alkaline Phosphatase (39-117) U/L Troponin I High Sens (<3.5-17.0) ng/L B-Natriuretic Peptide 33 (<100) pg/mL Total Protein (6.5-8.0) g/dL Albumin (3.5-5.0) g/dL Coronavirus (PCR) NEGATIVE (Negative) Influenza Type A (PCR) NEGATIVE (Negative) Influenza Type B (PCR) NEGATIVE (Negative) RSV RNA Qual (PCR) NEGATIVE (Negative) Imaging Data CT scan - head: Attestation: I personally reviewed and interpreted this imaging study as follows: Radiologist's impression: FINDINGS: There is no evidence of acute intracranial hemorrhage or territorial infarction. No abnormal mass effect or midline shift is seen. Hua to white matter differentiation is well preserved. No extra-axial fluid collections are identified. The ventricles are normal in size. There is no abnormal attenuation within the brain parenchyma. There is a benign frontal hyperostosis interna. The osseous structures and soft tissues are otherwise normal. The mastoid air cells and visualized portions of the paranasal sinuses are well aerated. CT/CT head/brain wo con IMPRESSION: No evidence of hemorrhage. No acute intracranial findings. Chest x-ray: Attestation: I personally reviewed and interpreted this imaging study as follows: Radiologist's impression: FINDINGS: The lungs are fairly well-expanded and clear acute process. The heart size and pulmonary vascularity is normal. No gross bony abnormality seen. XR/XR chest 1V IMPRESSION: Unremarkable chest exam ECG Data Attestation: I personally reviewed and interpreted this ECG as follows: Interpretation: EKG normal sinus rhythm with a ventricular rate of 93 with a normal IN interval nonspecific T-wave abnormalities with mildly prolonged QT at 380 milliseconds otherwise no acute ischemic changes are noted. Similar when compared to prior EKG 04/23/2021 Critical Care Time Critical Care Time Critical Care Time: Yes Total Critical Care Time: 60 Attestation: I personally attest to this time spent taking care of the patient Discharge Plan Discharge Clinical Impression: Asthma exacerbation, Headache, migraine, Bronchitis, Elevated lactic acid level Patient Disposition: Admitted As Inpatient Prescriptions: No Action sucralfate [Carafate] 1 gram tablet 4 g PO DAILY 30 Days Qty: 120 RF: 2 dicyclomine 10 mg capsule 20 mg PO QID PRN (Reason: for cramps) Qty: 240 RF: 1 prednisone 10 mg tablet 10 mg PO DAILY 18 Days Qty: 63 RF: 0 gabapentin [Neurontin] 300 mg capsule 600 mg PO BID 30 Days Qty: 120 RF: 11 azithromycin 500 mg tablet 500 mg PO DAILY 3 Days Qty: 3 RF: 0 prednisone 10 mg tablet 10 mg PO DAILY 14 Days Qty: 28 RF: 0 Robitussin Cough-Chest Sandro DM 5-100 mg/5 mL liquid 10 ml PO Q6H PRN (Reason: cough) 30 Days Qty: 355 RF: 3 alclometasone 0.05 % cream 1 appl topical BID PRN (Reason: Rash) RF: 0 fluocinonide 0.05 % ointment 1 appl topical BID PRN (Reason: Rash) RF: 0 hydroxyzine HCl 25 mg tablet 1 tab PO QID PRN (Reason: Anxiety) RF: 0 escitalopram oxalate 10 mg tablet 1 tab PO DAILY RF: 0 Privigen 10 % solution 40 g IV Q4W RF: 0 cephalexin 500 mg capsule 500 mg PO Q12H 7 Days Qty: 14 RF: 0 diphenoxylate-atropine [Lomotil] 2.5-0.025 mg tablet 1 tab PO Q8H PRN (Reason: diarrhea) Qty: 7 RF: 0 diphenoxylate-atropine [Lomotil] 2.5-0.025 mg tablet 1 tab PO TID-QID PRN (Reason: diarrhea) Qty: 7 RF: 0 quetiapine [Seroquel] 300 mg Tablet 300 mg PO DAILY RF: 0 montelukast 10 mg tablet 10 mg PO DAILY RF: 0 albuterol sulfate 90 mcg/actuation HFA aerosol inhaler 1 inh inhalation QID PRN (Reason: shortness of breath or wheezing) Qty: 18 RF: 0 prednisone 20 mg tablet 60 mg PO DAILY Qty: 12 RF: 0 benzonatate [Tessalon Perles] 100 mg capsule 100 mg PO TID PRN (Reason: cough) Qty: 20 RF: 0 cholecalciferol (vitamin D3) 25 mcg (1,000 unit) tablet 25 mcg PO DAILY RF: 0 budesonide-formoterol [Symbicort] 160-4.5 mcg/actuation HFA aerosol inhaler 2 puff inhalation BID 30 Days Qty: 10.2 RF: 11 benzonatate 200 mg capsule 200 mg PO TID PRN (Reason: cough) 30 Days Qty: 60 RF: 3 benzonatate 200 mg capsule 200 mg PO BID 30 Days Qty: 60 RF: 6 eszopiclone [Lunesta] 3 mg tablet 3 mg PO BEDTIME 30 Days Qty: 30 RF: 3 Robitussin Cough-Chest Sandro DM 5-100 mg/5 mL liquid 10 ml PO Q8H PRN (Reason: cough) 30 Days Qty: 355 RF: 6 losartan 50 mg tablet 50 mg PO DAILY RF: 0 cyanocobalamin (vitamin B-12) 1,000 mcg tablet 1,000 mcg PO DAILY RF: 0 apixaban 5 mg tablet 5 mg PO BID RF: 0 melatonin 5 mg capsule 5 mg PO .nightly 30 Days Qty: 30 RF: 6 omeprazole 20 mg capsule,delayed release(DR/EC) 20 mg PO DAILY 30 Days Qty: 30 RF: 0 lidocaine [Lidoderm] 5 % adhesive patch,medicated 1 patch topical DAILY 30 Days Qty: 30 RF: 11 hydroxyzine HCl 25 mg tablet 25 mg PO BEDTIME Qty: 60 RF: 10 oxycodone 5 mg tablet 5 mg PO Q8H PRN (Reason: pain) 30 Days Qty: 90 RF: 0 Narcan 4 mg/actuation spray,non-aerosol 4 mg intranasal Q2M PRN (Reason: opioid overdose) Qty: 2 RF: 0
[2021-05-12 14:38] LABS: Alanine Aminotransferase 29 U/L (0-31); Alkaline Phosphatase 78 U/L (39-117); Anion Gap 17 (12-20); Aspartate Amino Transferase 18 U/L (5-31); Bilirubin Total 0.2 mg/dL (0.0-1.0); Blood Urea Nitrogen 18 mg/dL (9-16); Calcium 9.7 mg/dL (8.4-10.2); Carbon Dioxide 20 mmol/L (22-29); Chloride 107 mmol/L (96-108); Estimated Glomerular Filt Rate 54; Glucose Random 180 mg/dL (60-115); Potassium 4.1 mmol/L (3.3-5.1); SLIDE REVIEW VERIFIED; Sodium 140 mmol/L (135-145); Total Protein 6.7 g/dL (6.5-8.0)
[2021-05-12 14:39] LABS: Lactic Acid 5.1 mmol/L (0.5-2.0)
[2021-05-12 14:44] LABS: B Type Natriuretic Peptide 33 pg/mL (<100)
[2021-05-12 14:45] LABS: Troponin-I High Sensitivity < 3.5 ng/L (<3.5-17.0)
[2021-05-12 14:50] LABS: Influenza A PCR NEGATIVE (Negative); Influenza B PCR NEGATIVE (Negative); Resp Syncy Virus RNA Qual PCR NEGATIVE (Negative); SARS COV2 PCR INHOUSE NEGATIVE (Negative)
[2021-05-12 15:10] LABS: Adenovirus PCR Not Detected (Not Detect.); Bordetella parapertussis PCR Not Detected (Not Detect.); Bordetella pertussis PCR Not Detected (Not Detect.); Chlamydia pneumoniae PCR Not Detected (Not Detect.); Coronavirus 229E PCR Not Detected (Not Detect.); Coronavirus HKU1 PCR Not Detected (Not Detect.); Coronavirus NL63 PCR Not Detected (Not Detect.); Coronavirus OC43 PCR Not Detected (Not Detect.); Human metapneumovirus PCR Not Detected (Not Detect.); Influenza A PCR Not Detected (Not Detect.); Influenza B PCR Not Detected (Not Detect.); Mycoplasma pneumoniae PCR Not Detected (Not Detect.); Parainfluenza 1 PCR Not Detected (Not Detect.); Parainfluenza 2 PCR Not Detected (Not Detect.); Parainfluenza 3 PCR Not Detected (Not Detect.); Parainfluenza 4 PCR Not Detected (Not Detect.); RSV PCR Not Detected (Not Detect.); Rhino/Enterovirus PCR Not Detected (Not Detect.); SARS-CoV-2 PCR Not Detected (Not Detect.)
[2021-05-12] MEDS: Morphine Sulfate 4 MG/ML CARTRIDGE IVPUSH ×2 (15:11→17:49)
[2021-05-12] MEDS: ondansetron HCL 4 MG/2 ML VIAL IVPUSH (15:11)
[2021-05-12] MEDS: 0.9 % Sodium Chloride 2,653.53 ML 2653.53 ML IV (15:12)
[2021-05-12] MEDS: cefTRIAXone sodium 2 GM in 0.9 % Sodium Chloride 50 ML IV (15:16)
[2021-05-12 15:22] VITALS: BP 122/73; PULSE 101; RESP 18; TEMP 36.7; O2SAT 99
[2021-05-12] MEDS: methylPREDNISolone Sod Succ 125 MG/2 ML VIAL IVPUSH (15:25)
[2021-05-12 15:59] LABS: Reflex Lactate? Lactic Acid Added
[2021-05-12 16:58] LABS: ~Lactic Acid-LAB USE ONLY 5.9 mmol/L (0.5-2.0)
[2021-05-12] MEDS: Metoclopramide HCl 10 MG/2 ML VIAL IVPUSH (17:49)
--- NOTE | 2021-05-12 18:08 | PM.IMHP ---
History of Present Illness Date of Service: 05/12/21 <Juany Larry NP - Last Filed: 05/13/21 15:38> Chief Complaint: Shortness of breath <Juany Larry NP - Last Filed: 05/13/21 15:38> 51-year-old woman presented to the ER with complaints of worsening shortness of breath over the last several days. She reports that she spoke with her intravenous therapy nurse at the end of last week and was sent a prescription . She reports that she continued to have shortness of breath and she called her intravenous therapy nurse office today and they told her to come to the ER for further evaluation. She did report some subjective fever at home with chills and shortness of breath and wheezing. She reports a history of asthma and has exacerbations at least 3 times a year but not this bad. She denied any recent cold, sick contacts or recent travel. Chest x-ray negative for consolidation or effusion. Vital signs stable, she was noted to be tachycardic with lactic acidosis secondary to albuterol treatments. Coronavirus negative, respiratory pathogen panel pending. In the ER she was given Robitussin, albuterol, morphine, Zofran, IV fluids, Rocephin, Solu-Medrol, Reglan. She will be admitted for further management and treatment of acute asthma exacerbation. <Juany Larry NP - Last Filed: 05/13/21 15:38> Review of Systems Review of Systems: Denies any recent fever chills or decrease in appetite respiratory See HPI cardiovascular denies chest pain gastrointestinal denies any dysphagia abdominal pain nausea vomiting or diarrhea genitourinary denies any dysuria frequency or hematuria musculoskeletal denies any joint pain or swelling neuropsych denies any weakness or seizures all other systems reviewed are negative <Juany Larry NP - Last Filed: 05/13/21 15:38> [facility] Medical History: Medical History Anemia Arthritis Asthma Back pain Chronic pain syndrome Complex regional pain syndrome i of left lower limb Cough Depression Diabetic neuropathy Diet-controlled diabetes mellitus Essential hypertension Fibromyalgia Hypogammaglobulinemia Hypothyroidism Laryngotracheitis Low back pain Migraines Morbid obesity BABATUNDE (obstructive sleep apnea) Pleuritic chest pain Pulmonary embolism Sleep apnea Spondylosis of lumbar spine TIA (transient ischemic attack) Type 2 diabetes mellitus with unspecified complications <Juany Larry NP - Last Filed: 05/13/21 15:38> Family History: Family History Mother Diabetes Stroke Family/Other Diabetes Father Diabetes <Juany Larry NP - Last Filed: 05/13/21 15:38> Surgical History: Surgical History History of bariatric surgery History of cholecystectomy History of esophagogastroduodenoscopy (EGD) Hx of colonoscopy S/P total abdominal hysterectomy <Juany Larry NP - Last Filed: 05/13/21 15:38> Social History: Social History Household Members: Spouse Housing: House Do you presently have visiting nurse or other home services: No Alcohol intake: never Patient Tobacco Use Status: Never used Tobacco Use of substances other than those prescribed or required for medical reasons: No Currently Displaying Signs/Symptoms of Drug Intoxication Withdrawal: No Have you been hit, kicked, punched, or otherwise hurt by someone within the past year? If so, by whom?: No Do you feel safe in your current relationship?: No Is there a partner from a previous relationship who is making you feel unsafe now?: No Are you made to feel afraid or neglected: No Advance Directives: No Advance Directives Information Provided: No Advance Directives on File: No Do you have thoughts of harming others: None Do you have a plan to hurt others: No Plan Recently lost weight without trying: No How much weight loss: Not applicable Eating poorly because of decreased appetite: No Nutrition screen score: 0 Nutrition Risks: No Nutritional Risk Patient : No : No Poor oral hygiene: No service: No Current occupational status: disabled <Juany Larry NP - Last Filed: 05/13/21 15:38> Meds Allergies/Adverse reactions: Allergies Allergy/AdvReac Type Severity Reaction Status Date / Time No Known Allergies Allergy Verified 05/12/21 12:25 <Juany Larry NP - Last Filed: 05/13/21 15:38> Active Medications: Current Medications Generic Name Dose Route Start Last Admin Trade Name Freq PRN Reason Stop Dose Admin Pharmacy Consult 1 each 05/12/21 17:59 Consult Rx Perform Med Rec MISCELLANE ONCE PRN Consult order <Juany Larry NP - Last Filed: 05/13/21 15:38> Home medications: Home Medications Medication Instructions Recorded Confirmed Last Taken Type montelukast 10 mg PO BEDTIME 08/02/20 05/12/21 05/11/21 History apixaban 5 mg tablet 5 mg PO BID 11/05/20 05/12/21 05/12/21 History cyanocobalamin (vitamin B-12) 1,000 mcg PO DAILY 11/05/20 05/12/21 05/12/21 History 1,000 mcg tablet escitalopram oxalate 1 tab PO DAILY 12/12/20 05/12/21 05/12/21 History hydroxyzine HCl 1 tab PO TID PRN 12/12/20 05/12/21 05/12/21 History immun glob G(IgG)-pro-IgA 0-50 40 g IV Q4W 12/12/20 05/12/21 Unknown History [Privigen] cholecalciferol (vitamin D3) 25 25 mcg PO DAILY 03/19/21 05/12/21 05/12/21 History mcg (1,000 unit) tablet losartan 1 tab PO DAILY 05/12/21 05/12/21 Unknown History prednisone 20 mg PO DAILY 05/12/21 05/12/21 05/12/21 History quetiapine 1 tab PO BEDTIME 05/12/21 05/12/21 05/11/21 History zolpidem 1 tab PO BEDTIME PRN 05/12/21 05/12/21 05/11/21 History <Juany Larry NP - Last Filed: 05/13/21 15:38> Physical Exam Vital Signs and Narrative: Vital Signs: Last Vital Signs Temp 98.1 F 05/12/21 15:22 Pulse 101 H 05/12/21 15:22 Resp 18 05/12/21 15:22 BP 122/73 05/12/21 15:22 Pulse Ox 99 05/12/21 15:22 Body Mass Index 39.4 <Juany Larry NP - Last Filed: 05/13/21 15:38> Appearing in no acute distress head is normocephalic atraumatic eyes pupils are PERRLA sclera is anicteric mouth throat mucous membranes are intact and moist neck is supple no lymphadenopathy, no JVD noted lungs a very tight, some diffuse expiratory wheezing heart regular rate rhythm, clear S1, S2 positive bowel sounds, abdomen is soft, nontender neuro patient is alert x3, no focal deficits <Juany Larry NP - Last Filed: 05/13/21 15:38> Results Labs CBC and Chem 7: : 05/13/21 05:28 05/13/21 05:28 <Juany Larry HOSPICE OFFICE COORDINATOR - Last Filed: 05/13/21 15:38> Labs: Laboratory Results - last 24 hr 05/12/21 05/12/21 05/12/21 13:55 13:55 13:55 MCV 99.2 H MCH 31.1 MCHC 31.3 RDW 13.4 Plt Count 211 MPV 8.5 L Immature Gran % (Auto) 1.7 H Neut % (Auto) 91.7 H Lymph % (Auto) 4.3 L [place] % (Auto) 2.2 Eos % (Auto) 0.0 Baso % (Auto) 0.1 Lymph # (Auto) 0.4 L [place] # (Auto) 0.2 Eos # (Auto) 0.0 Baso # (Auto) 0.0 Abs Immat Gran (auto) 0.16 H Absolute Neuts (auto) 8.5 H Absolute Nucleated RBC 0.000 Nucleated RBC % (auto) 0.0 Smear Tech's Comments VERIFIED PT 13.6 H INR 1.2 H Anion Gap Estim Creat Clear Calc Estimated GFR Random Glucose Lactic Acid Lactic Acid Fup @ 2Hr Calcium Magnesium 2.0 Total Bilirubin AST ALT Alkaline Phosphatase Troponin I High Sens B-Natriuretic Peptide Total Protein Albumin Coronavirus (PCR) Influenza Type A (PCR) Influenza Type B (PCR) RSV RNA Qual (PCR) 05/12/21 05/12/21 05/12/21 13:55 13:55 13:55 MCV MCH MCHC RDW Plt Count MPV Immature Gran % (Auto) Neut % (Auto) Lymph % (Auto) [place] % (Auto) Eos % (Auto) Baso % (Auto) Lymph # (Auto) [place] # (Auto) Eos # (Auto) Baso # (Auto) Abs Immat Gran (auto) Absolute Neuts (auto) Absolute Nucleated RBC Nucleated RBC % (auto) Smear Tech's Comments PT INR Anion Gap 17 Estim Creat Clear Calc 60.0 Estimated GFR 54 Random Glucose 180 H D Lactic Acid 5.1 H* Lactic Acid Fup @ 2Hr Calcium 9.7 Magnesium Total Bilirubin 0.2 AST 18 ALT 29 Alkaline Phosphatase 78 Troponin I High Sens < 3.5 B-Natriuretic Peptide Total Protein 6.7 Albumin 4.0 Coronavirus (PCR) Influenza Type A (PCR) Influenza Type B (PCR) RSV RNA Qual (PCR) 05/12/21 05/12/21 05/12/21 13:55 13:56 16:23 MCV MCH MCHC RDW Plt Count MPV Immature Gran % (Auto) Neut % (Auto) Lymph % (Auto) [place] % (Auto) Eos % (Auto) Baso % (Auto) Lymph # (Auto) [place] # (Auto) Eos # (Auto) Baso # (Auto) Abs Immat Gran (auto) Absolute Neuts (auto) Absolute Nucleated RBC Nucleated RBC % (auto) Smear Tech's Comments PT INR Anion Gap Estim Creat Clear Calc Estimated GFR Random Glucose Lactic Acid Lactic Acid Fup @ 2Hr 5.9 H* Calcium Magnesium Total Bilirubin AST ALT Alkaline Phosphatase Troponin I High Sens B-Natriuretic Peptide 33 Total Protein Albumin Coronavirus (PCR) NEGATIVE Influenza Type A (PCR) NEGATIVE Influenza Type B (PCR) NEGATIVE RSV RNA Qual (PCR) NEGATIVE <Juany Larry NP - Last Filed: 05/13/21 15:38> Imaging Radiologist's Impressions: Impressions Chest X-Ray 05/12/21 13:41 IMPRESSION: Unremarkable chest exam Head CT 05/12/21 13:43 IMPRESSION: No evidence of hemorrhage. No acute intracranial findings. <Juany Larry NP - Last Filed: 05/13/21 15:38> Assessment and Plan (1) Asthma exacerbation: Status: Acute <Juany Larry NP - Last Filed: 05/13/21 15:38> 51 year old women admitted with acute asthma exacerbation Asthma exacerbation. Likely triggered from a cold Solu-Medrol t.i.d. DuoNebs every 4 hours while awake Robitussin Supplemental oxygen as needed Hold off on antibiotics Lactic acidosis. Secondary to albuterol treatments and respiratory status Trend Diabetes mellitus Sliding scale, ADA diet History of pulmonary embolus Continue Eliquis Hypertension. Stable blood pressure. Continue losartan DVT prophylaxis with Ry Attending Dr. Quintero Full code <Juany Larry NP - Last Filed: 05/13/21 15:38> Quality Stroke Does the patient have a stroke diagnosis?: No <Juany Larry NP - Last Filed: 05/13/21 15:38> VTE Prior VTE?: No <Juany Larry NP - Last Filed: 05/13/21 15:38> VTE Risk Level:: Medical - moderate - high <Juany Larry NP - Last Filed: 05/13/21 15:38> VTE Device Contraindication: Treatment Not Indicated <Juany Larry NP - Last Filed: 05/13/21 15:38> VTE Drug Contraindication: N/A - Med Ordered <Juany Larry NP - Last Filed: 05/13/21 15:38>
[2021-05-12 18:28] LABS: Reflex Lactate? 2 Y
[2021-05-12] MEDS: methylPREDNISolone Sod Succ 40 MG/ML VIAL IVPUSH (18:42)
[2021-05-12 18:57] LABS: Glucose Urine UA NEG (NEG); Leukocyte Esterase Urine 1+ (NEG); Nitrite Urine NEG (NEG); Specific Gravity - Urine 1.025 (1.005-1.025); UACC Culture Trigger YES; Urine Blood NEG (NEG); Urine Ketones NEG (NEG); Urine Protein NEG (NEG-TRACE)
[2021-05-12 19:01] LABS: Appearance Urine CLEAR; Color Urine YELLOW
--- NOTE | 2021-05-12 19:02 | PHA.MEDREC ---
Pharmacy Consult ? Medication Reconciliation Pharmacy has completed the medication reconciliation.
[2021-05-12 19:07] LABS: Bacteria Urine 1+ /LPF; Mucus Urine 1+ /LPF; RBC Urine 0 /HPF (0); Squamous Epithelial Cell Urine 1+ /LPF
--- NOTE | 2021-05-12 19:08 | P.EN_ITS ---
Event Note Date of Service: 05/13/21 Event Note: Addendum to history and physical by mid-level provider TELEVISION [employer]EN[employer] INSTALLER Juany mcneal I interviewed and examined the patient. I discussed their presentation and management with the mid-level provider. I reviewed the history and physical and agree with the documentation, with the following additions and corrections: 51yo F with asthma, followed by Dr Larry here at [facility], advised to come in due to worsening dyspnea/dry cough/wheezing for past 4 days. No sick conta cts. No fever/chills/purulent sputum/sick contacts. Not hypoxic but in resp distress with tight bilateraly insp/exp wheezes. Tachyardic + lactic acidosis, attributed to albuterol; RVP + COVID PCR negative. Will admit for acute asthma exacerbation, give IV steroids, scheduled nebs. No indication for ABX at this time- CXR negative, not septic. Contnue losartan for HTN, correction-dose lispro for DM2, and continue apixaban for hx of prior PE.
[2021-05-12 19:33] VITALS: BP 123/73; PULSE 90; RESP 18; TEMP 36.9; O2SAT 96
[2021-05-12] MEDS: Lactated Ringers 1,000 ML 100 ML IVCONT (20:00)
[2021-05-12 20:12] VITALS: PULSE 94; O2SAT 95
[2021-05-12 20:54] VITALS: BP 116/57; PULSE 97; RESP 20; TEMP 36.2; O2SAT 96
[2021-05-12 21:03] LABS: Glucose, Whole Blood 233 mg/dL (60-115)
[2021-05-12] MEDS: Apixaban 5 MG TABLET PO (23:08)
[2021-05-12] MEDS: Gabapentin 300 MG CAPSULE 600 MG PO (23:08)
[2021-05-12] MEDS: 0.9 % Sodium Chloride Flush 3 ML SYRINGE IVFLUSH (23:09)
[2021-05-12] MEDS: QUEtiapine Fumarate 200 MG TABLET PO (23:09)
[2021-05-12] MEDS: oxyCODONE HCl Immed Release 5 MG TABLET PO (23:09)
[2021-05-12] MEDS: Montelukast Sodium 10 MG TABLET PO (23:09)
[2021-05-12] MEDS: hydrOXYzine HCL 25 MG TABLET PO (23:09)
[2021-05-12] MEDS: guaiFENesin DM 100/10/5 ML 5 ML SYRUP PO (23:15)
[2021-05-12] MEDS: Benzonatate 100 MG CAPSULE 200 MG PO (23:15)
[2021-05-12 23:21] VITALS: BMI 45.3
[2021-05-13] VITALS (11 sets, daily range): BP systolic 103–124; BP diastolic 50–61; PULSE 60–109; RESP 15–18; TEMP 36–36.7; O2SAT 93–99
[2021-05-13] MEDS: methylPREDNISolone Sod Succ 40 MG/ML VIAL IVPUSH ×3 (02:50→21:15)
[2021-05-13] MEDS: guaiFENesin DM 100/10/5 ML 5 ML SYRUP PO ×2 (02:53→21:15)
[2021-05-13 06:22] LABS: Basophils Percent Auto 0.1 % (0-2); Hematocrit 36.2 % (37-47); Hemoglobin 11.4 g/dl (12.0-16.0); Imm Gran Abs Auto 0.21 X10*3/uL (0.00-0.03); Lymphocytes Absolute Auto 0.6 X10*3/uL (1.2-4.9); Lymphocytes Percent Auto 5.8 % (20-40); MANUAL DIFF FLAG SCAN; Mean Corpuscular HGB Conc 31.5 g/dl (31.0-35.0); Mean Corpuscular Hemoglobin 31.2 pg (27.0-33.0); Mean Corpuscular Volume 99.2 fL (80-98); Monocytes Absolute Auto 0.2 X10*3/uL (0.1-1.2); Monocytes Percent Auto 1.9 % (2-11); Neutrophils Absolute Auto 9.4 X10*3/uL (2.0-8.3); Neutrophils Percent Auto 90.2 % (45-73); Platelet Count 204 X10*3/uL (160-400); Red Blood Count 3.65 X10*6/uL (4.20-5.50); Red Cell Distribution Width 13.4 % (11.0-16.0); SCAN SMEAR FLAG 1; White Blood Count 10.4 X10*3/uL (4.8-10.8)
[2021-05-13] MEDS: Omeprazole 20 MG CAPSULE.DR PO (06:25)
[2021-05-13] MEDS: Lactated Ringers 1,000 ML 100 ML IVCONT (06:25)
[2021-05-13 06:42] LABS: Anion Gap 15 (12-20); Blood Urea Nitrogen 17 mg/dL (9-16); Calcium 9.2 mg/dL (8.4-10.2); Carbon Dioxide 21 mmol/L (22-29); Chloride 108 mmol/L (96-108); Creatinine Clr Calc Pharmacy 74.5; Estimated Glomerular Filt Rate > 60; Glucose Random 135 mg/dL (60-115); Potassium 4.8 mmol/L (3.3-5.1); Sodium 139 mmol/L (135-145)
[2021-05-13 06:50] LABS: SLIDE REVIEW VERIFIED
[2021-05-13 07:58] LABS: Glucose, Whole Blood 153 mg/dL (60-115)
[2021-05-13] MEDS: Losartan Potassium 50 MG TABLET 100 MG PO (08:55)
[2021-05-13] MEDS: Cholecalciferol (Vitamin D3) 25 MCG TABLET PO (08:57)
[2021-05-13] MEDS: Cyanocobalamin (Vitamin B-12) 1,000 MCG TABLET 1000 MCG PO (08:57)
[2021-05-13] MEDS: Gabapentin 300 MG CAPSULE 600 MG PO ×2 (08:58→21:13)
[2021-05-13] MEDS: Apixaban 5 MG TABLET PO ×2 (08:58→21:13)
[2021-05-13] MEDS: Escitalopram Oxalate 10 MG TABLET PO (08:58)
[2021-05-13] MEDS: Sucralfate 1 GM TABLET 4 GM PO (08:59)
[2021-05-13] MEDS: Lidocaine 4 % Patch ADH..PATCH 1 PATCH TRANSDERMA (09:00)
[2021-05-13] MEDS: Albuterol Sulfate (0.083%) 2.5 MG/3 ML VIAL.NEB INHALE ×4 (09:06→19:50)
[2021-05-13] MEDS: oxyCODONE HCl Immed Release 5 MG TABLET PO ×2 (09:08→17:33)
[2021-05-13 11:25] LABS: Glucose, Whole Blood 174 mg/dL (60-115)
--- NOTE | 2021-05-13 16:13 | P.PNIM_ITS ---
Subjective Subjective Date of Service: 05/13/21 Interval History: Still dyspneic, wheezing. Dry cough. No fever. Physical Exam Vital Signs: Vital Signs: Last Vital Signs Temp 97.2 F 05/13/21 15:36 Pulse 109 H 05/13/21 15:36 Resp 18 05/13/21 15:36 BP 124/59 L 05/13/21 15:36 Pulse Ox 95 05/13/21 15:36 Body Mass Index 45.3 Gen: mild dyspnea HEENT: sclera anicteric, moist mucus membranes Neck: supple Lungs: bilateral inspiratory + expiratory wheezes Heart: tachycardic ,no murmurs Abd: soft, obese, non-tender, non-distended Ext: no edema Skin: warm/well-perfused Neuro: alert and oriented x3, no focal findings Psych: appropriate affect Objective Data Current Medications Generic Name Dose Route Start Last Admin Trade Name Freq PRN Reason Stop Dose Admin Acetaminophen 650 mg 05/12/21 18:17 Acetaminophen 325 Mg Tablet PO Q6H PRN Pain, Mild (Pain Scale 1-3) Albuterol Sulfate 2.5 mg 05/12/21 20:00 05/13/21 12:40 Albuterol Sulfate (0.083%) 2.5 Mg/3 Ml Vial.Neb INHALE 2.5 mg RQ4H WHILE AWAKE OMERO Administration Apixaban 5 mg 05/12/21 22:30 05/13/21 08:58 Apixaban 5 Mg Tablet PO 5 mg BID OMERO Administration Benzonatate 200 mg 05/12/21 22:16 05/12/21 23:15 Benzonatate 100 Mg Capsule PO 200 mg TID PRN Administration cough Cyanocobalamin 1,000 mcg 05/13/21 09:00 05/13/21 08:57 Cyanocobalamin (Vitamin B-12) 1,000 Mcg Tablet PO 1,000 mcg DAILY OMERO Administration Escitalopram Oxalate 10 mg 05/13/21 09:00 05/13/21 08:58 Escitalopram Oxalate 10 Mg Tablet PO 10 mg DAILY OMERO Administration Gabapentin 600 mg 05/12/21 22:30 05/13/21 08:58 Gabapentin 300 Mg Capsule PO 600 mg BID OMERO Administration Guaifenesin/Dextromethorphan 5 ml 05/12/21 18:17 05/13/21 02:53 Guaifenesin Dm 100/10/5 Ml 5 Ml Syrup PO 5 ml Q4H PRN Administration Cough Hydroxyzine HCl 25 mg 05/12/21 22:16 05/12/21 23:09 Hydroxyzine Hcl 25 Mg Tablet PO 25 mg TID PRN Administration Anxiety Lidocaine 1 patch 05/13/21 09:00 05/13/21 09:00 Lidocaine 4 % Patch Adh..Patch TRANSDERMA 1 patch DAILY OMERO Administration Losartan Potassium 100 mg 05/13/21 09:00 05/13/21 08:55 Losartan Potassium 50 Mg Tablet PO 100 mg DAILY OMERO Administration Protocol Methylprednisolone Sodium Succinate 40 mg 05/13/21 16:15 Methylprednisolone Sod Succ 40 Mg/Ml Vial IVPUSH Q12H OMERO Montelukast Sodium 10 mg 05/12/21 22:30 05/12/21 23:09 Montelukast Sodium 10 Mg Tablet PO 10 mg BEDTIME OMERO Administration Omeprazole 20 mg 05/13/21 06:30 05/13/21 06:25 Omeprazole 20 Mg Capsule.Dr PO 20 mg DAILY@0630 OMERO Administration Ondansetron HCl 4 mg 05/12/21 18:17 Ondansetron Hcl 4 Mg/2 Ml Vial IVPUSH Q8H PRN Nausea and Vomiting Oxycodone HCl 5 mg 05/12/21 22:16 05/13/21 09:08 Oxycodone Hcl Immed Release 5 Mg Tablet PO 5 mg Q8H PRN Administration pain Pharmacy Consult 1 each 05/12/21 17:59 Consult Rx Perform Med Rec MISCELLANE ONCE PRN Consult order Quetiapine Fumarate 200 mg 05/12/21 22:30 05/12/21 23:09 Quetiapine Fumarate 200 Mg Tablet PO 200 mg BEDTIME OMERO Administration Sodium Chloride 3 ml 05/13/21 00:00 05/13/21 09:01 0.9 % Sodium Chloride Flush 3 Ml Syringe IVFLUSH Not Given QSHIFT [facility] Sucralfate 4 gm 05/13/21 09:00 05/13/21 08:59 Sucralfate 1 Gm Tablet PO 4 gm DAILY OMERO Administration Vitamin D 25 mcg 05/13/21 09:00 05/13/21 08:57 Cholecalciferol (Vitamin D3) 25 Mcg Tablet PO 25 mcg DAILY OMERO Administration Zolpidem Tartrate 5 mg 05/12/21 22:27 Zolpidem Tartrate 5 Mg Tablet PO BEDTIME PRN Insomnia Labs CBC & Chem 7: 05/13/21 05:28 05/13/21 05:28 Labs: Laboratory Results - last 24 hr 05/12/21 05/12/21 05/12/21 13:56 16:23 18:45 WBC RBC Hgb Hct MCV MCH MCHC RDW Plt Count MPV Immature Gran % (Auto) Neut % (Auto) Lymph % (Auto) [place] % (Auto) Eos % (Auto) Baso % (Auto) Lymph # (Auto) [place] # (Auto) Eos # (Auto) Baso # (Auto) Abs Immat Gran (auto) Absolute Neuts (auto) Absolute Nucleated RBC Nucleated RBC % (auto) Smear Tech's Comments Sodium Potassium Chloride Carbon Dioxide Anion Gap BUN Creatinine Estim Creat Clear Calc Estimated GFR POC Glucose Random Glucose Lactic Acid Fup @ 2Hr 5.9 H* Lactic Acid Fup @ 4Hr 5.0 H* Calcium Urine Color Urine Appearance Urine pH Ur Specific [place] Urine Protein Urine Glucose (UA) Urine Ketones Urine Blood Urine Nitrite Ur Leukocyte Esterase Urine RBC Urine WBC Ur Squamous Epith Cells Urine Bacteria Urine Mucus Respiratory Panel [place]elle[place] See Note Adenovirus (Rapid PCR) Not Detected B.pert (TEM-PCR) Not Detected B.parapertussis DNA PCR Not Detected C. pneumoniae DNA (PCR) Not Detected Coronavirus OC43 (PCR) Not Detected Coronavirus HKU1 (PCR) Not Detected Coronavirus 229E (PCR) Not Detected Coronavirus NL63 (PCR) Not Detected Human Metapneumovir PCR Not Detected Influenza A (RT-PCR) Not Detected Influenza B (RT-PCR) Not Detected M. pneumoniae (PCR) Not Detected Parainfluenza 1 (PCR) Not Detected Parainfluenza 2 (PCR) Not Detected Parainfluenza 3 (PCR) Not Detected Parainfluenza 4 (PCR) Not Detected RSV (PCR) Not Detected Entero/Rhino (PCR) Not Detected SARS-CoV-2 RNA (RT-PCR) Not Detected 05/12/21 05/12/21 05/13/21 18:45 21:00 05:28 WBC 10.4 RBC 3.65 L Hgb 11.4 L Hct 36.2 L MCV 99.2 H MCH 31.2 MCHC 31.5 RDW 13.4 Plt Count 204 MPV 9.0 L Immature Gran % (Auto) 2.0 H Neut % (Auto) 90.2 H Lymph % (Auto) 5.8 L [place] % (Auto) 1.9 L Eos % (Auto) 0.0 Baso % (Auto) 0.1 Lymph # (Auto) 0.6 L [place] # (Auto) 0.2 Eos # (Auto) 0.0 Baso # (Auto) 0.0 Abs Immat Gran (auto) 0.21 H Absolute Neuts (auto) 9.4 H Absolute Nucleated RBC 0.000 Nucleated RBC % (auto) 0.0 Smear Tech's Comments VERIFIED Sodium Potassium Chloride Carbon Dioxide Anion Gap BUN Creatinine Estim Creat Clear Calc Estimated GFR POC Glucose 233 H Random Glucose Lactic Acid Fup @ 2Hr Lactic Acid Fup @ 4Hr Calcium Urine Color YELLOW Urine Appearance CLEAR Urine pH 6.0 Ur Specific [place] 1.025 Urine Protein NEG Urine Glucose (UA) NEG Urine Ketones NEG Urine Blood NEG Urine Nitrite NEG Ur Leukocyte Esterase 1+ H Urine RBC 0 Urine WBC 15-29 H Ur Squamous Epith Cells 1+ Urine Bacteria 1+ Urine Mucus 1+ Respiratory Panel [place] Adenovirus (Rapid PCR) B.pert (TEM-PCR) B.parapertussis DNA PCR C. pneumoniae DNA (PCR) Coronavirus OC43 (PCR) Coronavirus HKU1 (PCR) Coronavirus 229E (PCR) Coronavirus NL63 (PCR) Human Metapneumovir PCR Influenza A (RT-PCR) Influenza B (RT-PCR) M. pneumoniae (PCR) Parainfluenza 1 (PCR) Parainfluenza 2 (PCR) Parainfluenza 3 (PCR) Parainfluenza 4 (PCR) RSV (PCR) Entero/Rhino (PCR) SARS-CoV-2 RNA (RT-PCR) 05/13/21 05/13/21 05/13/21 05:28 07:06 11:07 WBC RBC Hgb Hct MCV MCH MCHC RDW Plt Count MPV Immature Gran % (Auto) Neut % (Auto) Lymph % (Auto) [place] % (Auto) Eos % (Auto) Baso % (Auto) Lymph # (Auto) [place] # (Auto) Eos # (Auto) Baso # (Auto) Abs Immat Gran (auto) Absolute Neuts (auto) Absolute Nucleated RBC Nucleated RBC % (auto) Smear Tech's Comments Sodium 139 Potassium 4.8 Chloride 108 Carbon Dioxide 21 L Anion Gap 15 BUN 17 H Creatinine 0.93 Estim Creat Clear Calc 74.5 Estimated GFR > 60 POC Glucose 153 H 174 H Random Glucose 135 H Lactic Acid Fup @ 2Hr Lactic Acid Fup @ 4Hr Calcium 9.2 Urine Color Urine Appearance Urine pH Ur Specific [place] Urine Protein Urine Glucose (UA) Urine Ketones Urine Blood Urine Nitrite Ur Leukocyte Esterase Urine RBC Urine WBC Ur Squamous Epith Cells Urine Bacteria Urine Mucus Respiratory Panel [place] Adenovirus (Rapid PCR) B.pert (TEM-PCR) B.parapertussis DNA PCR C. pneumoniae DNA (PCR) Coronavirus OC43 (PCR) Coronavirus HKU1 (PCR) Coronavirus 229E (PCR) Coronavirus NL63 (PCR) Human Metapneumovir PCR Influenza A (RT-PCR) Influenza B (RT-PCR) M. pneumoniae (PCR) Parainfluenza 1 (PCR) Parainfluenza 2 (PCR) Parainfluenza 3 (PCR) Parainfluenza 4 (PCR) RSV (PCR) Entero/Rhino (PCR) SARS-CoV-2 RNA (RT-PCR) Microbiology Microbiology Results: Microbiology 05/12/21 13:56 Blood Culture - Preliminary Blood - Venous No growth after 24 hours. 05/12/21 18:45 Urine Culture - Preliminary Urine clean catch - Clean Catch Midstream Culture too young to evaluate. Quality Stroke Does the patient have a stroke diagnosis?: No VTE Prior VTE?: No VTE Risk Level:: Medical - moderate - high VTE Device Contraindication: Treatment Not Indicated VTE Drug Contraindication: N/A - Med Ordered Assessment and Plan (1) Asthma exacerbation: Status: Acute Assessment and Plan: hospital d#2 51yo F with DM2, HTN, asthma admitted for acute asthma exacerbation # acute asthma exacerbation - continue IV steroids- taper, standing/prn nebs; continue montelukast # HTN - continue losartan # hx PE - continue apixaban # DM2 - correction-dose lispro # morbid obesity - outpt bariatrics evaluation # mood disorder - escitalopram, gabapentin, quetiapine # VTE ppx - apixaban
[2021-05-13] MEDS: 0.9 % Sodium Chloride Flush 3 ML SYRINGE IVFLUSH ×2 (17:33→21:15)
[2021-05-13] MEDS: QUEtiapine Fumarate 200 MG TABLET PO (21:13)
[2021-05-13] MEDS: Montelukast Sodium 10 MG TABLET PO (21:13)
[2021-05-13] MEDS: hydrOXYzine HCL 25 MG TABLET PO (21:14)
[2021-05-13] MEDS: Zolpidem Tartrate 5 MG TABLET PO (21:14)
[2021-05-13] MEDS: Acetaminophen 325 MG TABLET 650 MG PO (21:16)
[2021-05-14] VITALS (11 sets, daily range): BP systolic 110–130; BP diastolic 56–63; PULSE 66–82; RESP 17–18; TEMP 36–36.8; O2SAT 92–97
[2021-05-14] MEDS: oxyCODONE HCl Immed Release 5 MG TABLET PO ×3 (01:04→18:07)
[2021-05-14] MEDS: Acetaminophen 325 MG TABLET 650 MG PO ×2 (03:56→15:28)
[2021-05-14] MEDS: guaiFENesin DM 100/10/5 ML 5 ML SYRUP PO ×2 (03:59→15:28)
[2021-05-14] MEDS: Omeprazole 20 MG CAPSULE.DR PO (06:25)
--- NOTE | 2021-05-14 07:16 | P.CDIC_ITS ---
CDI Concurrent Query Service Date: 05/14/21 Documentation Clarification: Please clarify if you are treating a proba ble/suspected/likely or confirmed: Based on the information below, please specify the Type of Asthma ( Mild/Moderate/Severe)(Persistent/Intermittent) Other Type of Asthma, please specify if known Provider Response: Other Other Diagnosis: see PN PLEASE DO NOT DELETE/MODIFY EXISTING CONTENT Additional information is needed in order to code to the highest accuracy and appropriate Severity of Illness (SOI). Please clarify the information noted below in your progress notes and discharge summary. Risk Factors/Clinical Indicators/Treatments Per H&P: Acute Asthma Exacerbation Treated with IVF, nebulizer, steroid CDS: Carmen Valencia RN Contact Number: [phone] Please Review the information above and exercise your independent professional judgment in responding to the query. If you concur, pleas document in the PROGRESS NOTES and DISCHARGE SUMMARY. If you do not agree with the query, please document in the query above. THIS QUERY IS PART OF THE PERMANENT MEDICAL RECORD
[2021-05-14] MEDS: Albuterol Sulfate (0.083%) 2.5 MG/3 ML VIAL.NEB INHALE ×4 (07:49→19:46)
[2021-05-14 08:19] LABS: Glucose, Whole Blood 163 mg/dL (60-115)
--- NOTE | 2021-05-14 09:15 | MHC.CM.PN ---
Addendum entered by Madeline Thakur 05/14/21 12:20: CORRECTION; VERIFIED THAT PATIENT IS NOT ON COUMADIN Original Note: PATIENT LIVES WITH HER HCP/PARTNER (ON FILE AND VERIFIED) SHE USES A CANE AND A WALKER. PATIENT SAYS THAT SHE HAS COUMADIN AT HOME. SHE DOES NOT USE ANY VNA OR C COUMADIN CLINIC FOR MONITORING. PARTNER DROVE PATIENT HERE AND WILL PROVIDE TRANSPORT HOME CASE MANAGEMENT FOLLOWING FOR ANY DC NEEDS.
[2021-05-14] MEDS: Lidocaine 4 % Patch ADH..PATCH 1 PATCH TRANSDERMA (09:28)
[2021-05-14] MEDS: 0.9 % Sodium Chloride Flush 3 ML SYRINGE IVFLUSH ×2 (09:28→15:20)
[2021-05-14] MEDS: Sucralfate 1 GM TABLET 4 GM PO (09:29)
[2021-05-14] MEDS: Gabapentin 300 MG CAPSULE 600 MG PO ×2 (09:29→21:20)
[2021-05-14] MEDS: Cyanocobalamin (Vitamin B-12) 1,000 MCG TABLET 1000 MCG PO (09:30)
[2021-05-14] MEDS: Losartan Potassium 50 MG TABLET 100 MG PO (09:30)
[2021-05-14] MEDS: Cholecalciferol (Vitamin D3) 25 MCG TABLET PO (09:30)
[2021-05-14] MEDS: Escitalopram Oxalate 10 MG TABLET PO (09:31)
[2021-05-14] MEDS: Apixaban 5 MG TABLET PO ×2 (09:31→21:21)
[2021-05-14] MEDS: methylPREDNISolone Sod Succ 40 MG/ML VIAL IVPUSH ×2 (10:03→21:20)
--- NOTE | 2021-05-14 11:36 | HO.PM.IMPN ---
Subjective Subjective Date of Service: 05/14/21 Interval History: still dyspneic + wheezing no fever no purulent sputum c/o back pain Physical Exam Vital Signs: Vital Signs: Last Vital Signs Temp 96.8 F 05/14/21 11:31 Pulse 74 05/14/21 11:31 Resp 17 05/14/21 11:31 BP 112/58 L 05/14/21 11:31 Pulse Ox 97 05/14/21 11:31 Body Mass Index 45.3 Gen: mild dyspnea HEENT: sclera anicteric, moist mucus membranes Neck: supple Lungs: bilateral expiratory wheezes Heart: tachycardic ,no murmurs Abd: soft, obese, non-tender, non-distended Ext: no edema Skin: warm/well-perfused Neuro: alert and oriented x3, no focal findings Psych: appropriate affect Objective Data Current Medications Generic Name Dose Route Start Last Admin Trade Name Freq PRN Reason Stop Dose Admin Acetaminophen 650 mg 05/12/21 18:17 05/14/21 03:56 Acetaminophen 325 Mg Tablet PO 650 mg Q6H PRN Administration Pain, Mild (Pain Scale 1-3) Albuterol Sulfate 2.5 mg 05/12/21 20:00 05/14/21 07:49 Albuterol Sulfate (0.083%) 2.5 Mg/3 Ml Vial.Neb INHALE 2.5 mg RQ4H WHILE AWAKE OMERO Administration Apixaban 5 mg 05/12/21 22:30 05/14/21 09:31 Apixaban 5 Mg Tablet PO 5 mg BID OMERO Administration Benzonatate 200 mg 05/12/21 22:16 05/12/21 23:15 Benzonatate 100 Mg Capsule PO 200 mg TID PRN Administration cough Cyanocobalamin 1,000 mcg 05/13/21 09:00 05/14/21 09:30 Cyanocobalamin (Vitamin B-12) 1,000 Mcg Tablet PO 1,000 mcg DAILY OMERO Administration Escitalopram Oxalate 10 mg 05/13/21 09:00 05/14/21 09:31 Escitalopram Oxalate 10 Mg Tablet PO 10 mg DAILY OMERO Administration Gabapentin 600 mg 05/12/21 22:30 05/14/21 09:29 Gabapentin 300 Mg Capsule PO 600 mg BID OMERO Administration Guaifenesin/Dextromethorphan 5 ml 05/12/21 18:17 05/14/21 03:59 Guaifenesin Dm 100/10/5 Ml 5 Ml Syrup PO 5 ml Q4H PRN Administration Cough Hydroxyzine HCl 25 mg 05/12/21 22:16 05/13/21 21:14 Hydroxyzine Hcl 25 Mg Tablet PO 25 mg TID PRN Administration Anxiety Lidocaine 1 patch 05/13/21 09:00 05/14/21 09:28 Lidocaine 4 % Patch Adh..Patch TRANSDERMA 1 patch DAILY OMERO Administration Losartan Potassium 100 mg 05/13/21 09:00 05/14/21 09:30 Losartan Potassium 50 Mg Tablet PO 100 mg DAILY OMERO Administration Protocol Methylprednisolone Sodium Succinate 40 mg 05/13/21 23:00 05/14/21 10:03 Methylprednisolone Sod Succ 40 Mg/Ml Vial IVPUSH 40 mg Q12H OMERO Administration Montelukast Sodium 10 mg 05/12/21 22:30 05/13/21 21:13 Montelukast Sodium 10 Mg Tablet PO 10 mg BEDTIME OMERO Administration Morphine Sulfate 2 mg 05/14/21 11:32 Morphine Sulfate 2 Mg/Ml Cartridge IVPUSH Q3H PRN pain,severe Omeprazole 20 mg 05/13/21 06:30 05/14/21 06:25 Omeprazole 20 Mg Capsule.Dr PO 20 mg DAILY@0630 OMERO Administration Ondansetron HCl 4 mg 05/12/21 18:17 Ondansetron Hcl 4 Mg/2 Ml Vial IVPUSH Q8H PRN Nausea and Vomiting Oxycodone HCl 5 mg 05/12/21 22:16 05/14/21 10:08 Oxycodone Hcl Immed Release 5 Mg Tablet PO 5 mg Q8H PRN Administration pain Pharmacy Consult 1 each 05/12/21 17:59 Consult Rx Perform Med Rec MISCELLANE ONCE PRN Consult order Quetiapine Fumarate 200 mg 05/12/21 22:30 05/13/21 21:13 Quetiapine Fumarate 200 Mg Tablet PO 200 mg BEDTIME OMERO Administration Sodium Chloride 3 ml 05/13/21 00:00 05/14/21 09:28 0.9 % Sodium Chloride Flush 3 Ml Syringe IVFLUSH 3 ml QSHIFT OMERO Administration Sucralfate 4 gm 05/13/21 09:00 05/14/21 09:29 Sucralfate 1 Gm Tablet PO 4 gm DAILY OMERO Administration Vitamin D 25 mcg 05/13/21 09:00 05/14/21 09:30 Cholecalciferol (Vitamin D3) 25 Mcg Tablet PO 25 mcg DAILY OMERO Administration Zolpidem Tartrate 5 mg 05/12/21 22:27 05/13/21 21:14 Zolpidem Tartrate 5 Mg Tablet PO 5 mg BEDTIME PRN Administration Insomnia Labs CBC & Chem 7: 05/13/21 05:28 05/13/21 05:28 Labs: Laboratory Results - last 24 hr 05/14/21 07:25 POC Glucose 163 H Microbiology Microbiology Results: Microbiology 05/12/21 14:17 Blood Culture - Preliminary Blood - Venous No growth after 24 hours. 05/12/21 13:56 Blood Culture - Preliminary Blood - Venous No growth after 24 hours. 05/12/21 18:45 Urine Culture - Preliminary Urine clean catch - Clean Catch Midstream Culture too young to evaluate. Quality Stroke Does the patient have a stroke diagnosis?: No VTE Prior VTE?: No VTE Risk Level:: Medical - moderate - high VTE Device Contraindication: Treatment Not Indicated VTE Drug Contraindication: N/A - Med Ordered Assessment and Plan (1) Asthma exacerbation: Status: Acute Assessment and Plan: hospital d#2 51yo F with DM2, HTN, asthma admitted for acute asthma exacerbation # acute exacerbation of moderate persistent asthma - continue IV steroids- taper, standing/prn nebs; continue montelukast # HTN - continue losartan # hx PE - continue apixaban # DM2 - correction-dose lispro # morbid obesity - s/p bariatric surgery # mood disorder - escitalopram, gabapentin, quetiapine # back pain - APAP, oxycodone, morphine # VTE ppx - apixaban # dispo - PT eval
[2021-05-14 11:43] LABS: Glucose, Whole Blood 128 mg/dL (60-115)
[2021-05-14] MEDS: Montelukast Sodium 10 MG TABLET PO (21:20)
[2021-05-14] MEDS: QUEtiapine Fumarate 200 MG TABLET PO (21:21)
[2021-05-14] MEDS: Benzonatate 100 MG CAPSULE 200 MG PO (21:28)
[2021-05-14] MEDS: Zolpidem Tartrate 5 MG TABLET PO (21:29)
[2021-05-15] VITALS (11 sets, daily range): BP systolic 93–137; BP diastolic 61–80; PULSE 67–83; RESP 16–20; TEMP 36.1–36.7; O2SAT 93–98
[2021-05-15] MEDS: 0.9 % Sodium Chloride Flush 3 ML SYRINGE IVFLUSH ×3 (00:28→16:32)
[2021-05-15] MEDS: Omeprazole 20 MG CAPSULE.DR PO (06:04)
[2021-05-15] MEDS: Albuterol Sulfate (0.083%) 2.5 MG/3 ML VIAL.NEB INHALE ×4 (07:59→20:37)
--- NOTE | 2021-05-15 09:35 | MHC.CM.PN ---
PATIENT PREFERS TO STAY IN [place] FOR REHAB FACILITY [facility] REFERRAL PLACED PER REQUEST. CASE MANAGEMENT FOLLOWING.
[2021-05-15] MEDS: methylPREDNISolone Sod Succ 40 MG/ML VIAL IVPUSH (10:17)
[2021-05-15] MEDS: ondansetron HCL 4 MG/2 ML VIAL IVPUSH (10:17)
[2021-05-15] MEDS: Gabapentin 300 MG CAPSULE 600 MG PO ×2 (10:23→19:33)
[2021-05-15] MEDS: Apixaban 5 MG TABLET PO ×2 (10:23→19:33)
[2021-05-15] MEDS: Sucralfate 1 GM TABLET 4 GM PO (10:23)
[2021-05-15] MEDS: Losartan Potassium 50 MG TABLET 100 MG PO (10:23)
[2021-05-15] MEDS: Cyanocobalamin (Vitamin B-12) 1,000 MCG TABLET 1000 MCG PO (10:23)
[2021-05-15] MEDS: Cholecalciferol (Vitamin D3) 25 MCG TABLET PO (10:23)
[2021-05-15] MEDS: Escitalopram Oxalate 10 MG TABLET PO (10:24)
[2021-05-15] MEDS: Lidocaine 4 % Patch ADH..PATCH 1 PATCH TRANSDERMA (10:24)
--- NOTE | 2021-05-15 13:26 | MHC.CM.PN ---
PATIENT REPORTS HAVING BOTH PFIZER DOSES OF COVID VACCINE
--- NOTE | 2021-05-15 13:51 | PM.DS ---
DS: Providers Provider Date of Service: 05/17/21 Date of admission: 05/12/21 18:17 Primary care physician: Claudia Villatoro MD DS: Diagnosis Discharge Diagnosis (1) Acute severe exacerbation of moderate persistent asthma: Status: Acute (2) Morbid obesity: Status: Acute DS: Medications Discharge Medications Home Medications: Home Medications Medication Instructions Recorded Confirmed montelukast 10 mg PO BEDTIME 08/02/20 05/12/21 apixaban 5 mg tablet 5 mg PO BID 11/05/20 05/12/21 cyanocobalamin (vitamin B-12) 1,000 mcg PO DAILY 11/05/20 05/12/21 1,000 mcg tablet escitalopram oxalate 1 tab PO DAILY 12/12/20 05/12/21 hydroxyzine HCl 1 tab PO TID PRN 12/12/20 05/12/21 immun glob G(IgG)-pro-IgA 0-50 40 g IV Q4W 12/12/20 05/12/21 [Privigen] cholecalciferol (vitamin D3) 25 25 mcg PO DAILY 03/19/21 05/12/21 mcg (1,000 unit) tablet losartan 1 tab PO DAILY 05/12/21 05/12/21 prednisone 20 mg PO DAILY 05/12/21 05/12/21 quetiapine 1 tab PO BEDTIME 05/12/21 05/12/21 zolpidem 1 tab PO BEDTIME PRN 05/12/21 05/12/21 Previous Rx's Medication Instructions Recorded albuterol sulfate 1 inh INHALATION QID PRN #18 g 10/13/20 omeprazole 20 mg capsule,delayed 20 mg PO DAILY 30 Days #30 cap 12/02/20 release lidocaine 5 % topical patch 1 patch TOPICAL DAILY 30 Days #30 12/24/20 ea sucralfate 1 gram tablet 4 g PO DAILY 30 Days #120 tab 02/07/21 benzonatate 200 mg capsule 200 mg PO TID PRN 30 Days #60 cap 03/19/21 budesonide-formoterol HFA 160 2 puff INHALATION BID 30 Days 03/19/21 mcg-4.5 mcg/actuation aerosol #10.2 g inhaler gabapentin 300 mg capsule 600 mg PO BID 30 Days #120 cap 04/14/21 naloxone 4 mg/actuation nasal spray 4 mg INTRANASAL Q2M PRN #2 ea 05/09/21 oxycodone 5 mg tablet 5 mg PO Q8H PRN 30 Days #90 tab 05/09/21 DS: Summary Hospital Course Hospital Course: From admission H+P by hospitalist EAGLE Larry, 05/12/21: 51-year-old woman presented to the ER with complaints of worsening shortness of breath over the last several days. She reports that she spoke with her manager environmental affairs at the end of last week and was sent a prescription . She reports that she continued to have shortness of breath and she called her manager environmental affairs office today and they told her to come to the ER for further evaluation. She did report some subjective fever at home with chills and shortness of breath and wheezing. She reports a history of asthma and has exacerbations at least 3 times a year but not this bad. She denied any recent cold, sick contacts or recent travel. Chest x-ray negative for consolidation or effusion. Vital signs stable, she was noted to be tachycardic with lactic acidosis secondary to albuterol treatments. Coronavirus negative, respiratory pathogen panel pending. In the ER she was given Robitussin, albuterol, morphine, Zofran, IV fluids, Rocephin, Solu-Medrol, Reglan. She will be admitted for further management and treatment of acute asthma exacerbation. The patient was admitted to the medical/surgical floor. She was treated with IV steroid taper and scheduled nebulizer treatments. She is chronically on prednisone 20 mg daily. Her symptoms improved gradually. She did not require oxygen and had no evidence of viral or bacterial infection. She was discharged home with VNA services for home PT for deconditioning, and will continue a slow PO steroid taper: 40 mg daily x 5 days, then 30 mg daily x 5 days, then 20 mg daily x 5 days, then 10 mg daily x 5 days, with further tapering to be dictated by her manager environmental affairs. She should follow up with her manager environmental affairs and her primary care doctor in 1-2 weeks. Time Spent with Patient Time attestation: Total time spent providing and/or coordinating discharge services: 35 Discharge coordination time: Greater than 30 minutes Quality: Stroke Does the patient have a stroke diagnosis?: No Physical Exam Vital Signs: Vital Signs: Temp Pulse Resp BP Pulse Ox 97.5 F 84 16 103/57 L 94 05/17/21 10:52 05/17/21 11:26 05/17/21 10:52 05/17/21 10:52 05/17/21 10:52 Gen: no acute distress HEENT: sclera anicteric, moist mucus membranes Neck: supple Lungs: diminished bilaterally, scattered expiratory wheezes Heart: regular rate and rhythm, no murmurs Abd: soft, obese, non-tender, non-distended Ext: no edema Skin: warm/well-perfused Neuro: alert and oriented x3, no focal findings Psych: appropriate affect DS: Data Data Completed and Pending Completed studies during hospitalization [Text1]: Laboratory Results WBC 10.4 X10*3/uL (4.8-10.8) 05/13/21 05:28 RBC 3.65 X10*6/uL (4.20-5.50) L 05/13/21 05:28 Hgb 11.4 g/dl (12.0-16.0) L 05/13/21 05:28 Hct 36.2 % (37-47) L 05/13/21 05:28 MCV 99.2 fL (80-98) H 05/13/21 05:28 MCH 31.2 pg (27.0-33.0) 05/13/21 05:28 MCHC 31.5 g/dl (31.0-35.0) 05/13/21 05:28 RDW 13.4 % (11.0-16.0) 05/13/21 05:28 Plt Count 204 X10*3/uL (160-400) 05/13/21 05:28 MPV 9.0 fL (9.4-12.3) L 05/13/21 05:28 Immature Gran % (Auto) 2.0 % (0.0-0.4) H 05/13/21 05:28 Neut % (Auto) 90.2 % (45-73) H 05/13/21 05:28 Lymph % (Auto) 5.8 % (20-40) L 05/13/21 05:28 [place] % (Auto) 1.9 % (2-11) L 05/13/21 05:28 Eos % (Auto) 0.0 % (0-4) 05/13/21 05:28 Baso % (Auto) 0.1 % (0-2) 05/13/21 05:28 Lymph # (Auto) 0.6 X10*3/uL (1.2-4.9) L 05/13/21 05:28 [place] # (Auto) 0.2 X10*3/uL (0.1-1.2) 05/13/21 05:28 Eos # (Auto) 0.0 X10*3/uL (0.0-0.4) 05/13/21 05:28 Baso # (Auto) 0.0 X10*3/uL (0.0-0.2) 05/13/21 05:28 Abs Immat Gran (auto) 0.21 X10*3/uL (0.00-0.03) H 05/13/21 05:28 Absolute Neuts (auto) 9.4 X10*3/uL (2.0-8.3) H 05/13/21 05:28 Absolute Nucleated RBC 0.000 X10*3/uL (0.0-0.012) 05/13/21 05:28 Nucleated RBC % (auto) 0.0 /100WBC (0.0-0.2) 05/13/21 05:28 Smear Tech's Comments VERIFIED 05/13/21 05:28 PT 13.6 SEC (9.9-13.0) H 05/12/21 13:55 INR 1.2 (0.9-1.1) H 05/12/21 13:55 Sodium 139 mmol/L (135-145) 05/13/21 05:28 Potassium 4.8 mmol/L (3.3-5.1) 05/13/21 05:28 Chloride 108 mmol/L (96-108) 05/13/21 05:28 Carbon Dioxide 21 mmol/L (22-29) L 05/13/21 05:28 Anion Gap 15 (12-20) 05/13/21 05:28 BUN 17 mg/dL (9-16) H 05/13/21 05:28 Creatinine 0.93 mg/dL (0.5-1.4) 05/13/21 05:28 Estim Creat Clear Calc 74.5 05/13/21 05:28 Estimated GFR > 60 05/13/21 05:28 POC Glucose 128 mg/dL (60-115) H 05/14/21 11:29 Random Glucose 135 mg/dL (60-115) H 05/13/21 05:28 Lactic Acid 5.1 mmol/L (0.5-2.0) H* 05/12/21 13:55 Lactic Acid Fup @ 2Hr 5.9 mmol/L (0.5-2.0) H* 05/12/21 16:23 Lactic Acid Fup @ 4Hr 5.0 mmol/L (0.5-2.0) H* 05/12/21 18:45 Calcium 9.2 mg/dL (8.4-10.2) 05/13/21 05:28 Magnesium 2.0 mg/dL (1.6-2.6) 05/12/21 13:55 Total Bilirubin 0.2 mg/dL (0.0-1.0) 05/12/21 13:55 AST 18 U/L (5-31) 05/12/21 13:55 ALT 29 U/L (0-31) 05/12/21 13:55 Alkaline Phosphatase 78 U/L (39-117) 05/12/21 13:55 Troponin I High Sens < 3.5 ng/L (<3.5-17.0) 05/12/21 13:55 B-Natriuretic Peptide 33 pg/mL (<100) 05/12/21 13:55 Total Protein 6.7 g/dL (6.5-8.0) 05/12/21 13:55 Albumin 4.0 g/dL (3.5-5.0) 05/12/21 13:55 Urine Color YELLOW 05/12/21 18:45 Urine Appearance CLEAR 05/12/21 18:45 Urine pH 6.0 (5.0-8.0) 05/12/21 18:45 Ur Specific [place] 1.025 (1.005-1.025) 05/12/21 18:45 Urine Protein NEG MG/DL (NEG-TRACE) 05/12/21 18:45 Urine Glucose (UA) NEG MG/DL (NEG) 05/12/21 18:45 Urine Ketones NEG MG/DL (NEG) 05/12/21 18:45 Urine Blood NEG (NEG) 05/12/21 18:45 Urine Nitrite NEG (NEG) 05/12/21 18:45 Ur Leukocyte Esterase 1+ (NEG) H 05/12/21 18:45 Urine RBC 0 /HPF (0) 05/12/21 18:45 Urine WBC 15-29 /HPF (0-4) H 05/12/21 18:45 Ur Squamous Epith Cells 1+ /LPF 05/12/21 18:45 Urine Bacteria 1+ /LPF 05/12/21 18:45 Urine Mucus 1+ /LPF 05/12/21 18:45 Respiratory Panel Tellez See Note 05/12/21 13:56 Adenovirus (Rapid PCR) Not Detected (Not Detect.) 05/12/21 13:56 B.pert (TEM-PCR) Not Detected (Not Detect.) 05/12/21 13:56 B.parapertussis DNA PCR Not Detected (Not Detect.) 05/12/21 13:56 C. pneumoniae DNA (PCR) Not Detected (Not Detect.) 05/12/21 13:56 Coronavirus (PCR) NEGATIVE (Negative) 05/12/21 13:56 Coronavirus OC43 (PCR) Not Detected (Not Detect.) 05/12/21 13:56 Coronavirus HKU1 (PCR) Not Detected (Not Detect.) 05/12/21 13:56 Coronavirus 229E (PCR) Not Detected (Not Detect.) 05/12/21 13:56 Coronavirus NL63 (PCR) Not Detected (Not Detect.) 05/12/21 13:56 Human Metapneumovir PCR Not Detected (Not Detect.) 05/12/21 13:56 Influenza A (RT-PCR) Not Detected (Not Detect.) 05/12/21 13:56 Influenza Type A (PCR) NEGATIVE (Negative) 05/12/21 13:56 Influenza B (RT-PCR) Not Detected (Not Detect.) 05/12/21 13:56 Influenza Type B (PCR) NEGATIVE (Negative) 05/12/21 13:56 M. pneumoniae (PCR) Not Detected (Not Detect.) 05/12/21 13:56 Parainfluenza 1 (PCR) Not Detected (Not Detect.) 05/12/21 13:56 Parainfluenza 2 (PCR) Not Detected (Not Detect.) 05/12/21 13:56 Parainfluenza 3 (PCR) Not Detected (Not Detect.) 05/12/21 13:56 Parainfluenza 4 (PCR) Not Detected (Not Detect.) 05/12/21 13:56 RSV (PCR) Not Detected (Not Detect.) 05/12/21 13:56 RSV RNA Qual (PCR) NEGATIVE (Negative) 05/12/21 13:56 Entero/Rhino (PCR) Not Detected (Not Detect.) 05/12/21 13:56 SARS-CoV-2 RNA (RT-PCR) Not Detected (Not Detect.) 05/12/21 13:56 Impressions Chest X-Ray 05/12/21 13:41 IMPRESSION: Unremarkable chest exam Head CT 05/12/21 13:43 IMPRESSION: No evidence of hemorrhage. No acute intracranial findings. Discharge Plan Discharge Patient Disposition: Home Health Service Discharge Diagnosis: asthma exacerbation Referrals: Claudia Villatoro MD [Primary Care Provider] - 05/20/21 10:45 am (You have a follow up appointment with your primary care physician on May 20 at 10:45 am. Please call your doctor's office if you need to reschedule. ) John Larry MD [Physician] - 1 Week Discharge Medications: New prednisone 10 mg tablet See Rx Instructions .ROUTE .COMPLEX Qty: 50 RF: 0 Continued sucralfate [Carafate] 1 gram tablet 4 g PO DAILY 30 Days Qty: 120 RF: 2 gabapentin [Neurontin] 300 mg capsule 600 mg PO BID 30 Days Qty: 120 RF: 11 hydroxyzine HCl 25 mg tablet 1 tab PO TID PRN (Reason: Anxiety) RF: 0 escitalopram oxalate 10 mg tablet 1 tab PO DAILY RF: 0 Privigen 10 % solution 40 g IV Q4W RF: 0 montelukast 10 mg tablet 10 mg PO BEDTIME RF: 0 albuterol sulfate 90 mcg/actuation HFA aerosol inhaler 1 inh inhalation QID PRN (Reason: shortness of breath or wheezing) Qty: 18 RF: 0 quetiapine 200 mg tablet 1 tab PO BEDTIME RF: 0 losartan 100 mg tablet 1 tab PO DAILY RF: 0 zolpidem 10 mg tablet 1 tab PO BEDTIME PRN (Reason: Insomnia) RF: 0 prednisone 20 mg tablet 20 mg PO DAILY RF: 0 cholecalciferol (vitamin D3) 25 mcg (1,000 unit) tablet 25 mcg PO DAILY RF: 0 budesonide-formoterol [Symbicort] 160-4.5 mcg/actuation HFA aerosol inhaler 2 puff inhalation BID 30 Days Qty: 10.2 RF: 11 benzonatate 200 mg capsule 200 mg PO TID PRN (Reason: cough) 30 Days Qty: 60 RF: 3 cyanocobalamin (vitamin B-12) 1,000 mcg tablet 1,000 mcg PO DAILY RF: 0 apixaban 5 mg tablet 5 mg PO BID RF: 0 omeprazole 20 mg capsule,delayed release(DR/EC) 20 mg PO DAILY 30 Days Qty: 30 RF: 0 lidocaine [Lidoderm] 5 % adhesive patch,medicated 1 patch topical DAILY 30 Days Qty: 30 RF: 11 oxycodone 5 mg tablet 5 mg PO Q8H PRN (Reason: pain) 30 Days Qty: 90 RF: 0 Narcan 4 mg/actuation spray,non-aerosol 4 mg intranasal Q2M PRN (Reason: opioid overdose) Qty: 2 RF: 0 Discharge Orders: Discharge Order (Routine); Ordered 05/17/21 Ordered By: Valentina Quintero Diet: advance to usual diet and diabetic diet Activity on Discharge: As tolerated Stand Alone Forms: Patient Portal Discharge page Care Plan Goals: improvement in breathing, prevention of hospitalization, safe ambulation Health Concerns: asthma exacerbation, deconditioning Plan of Treatment: take prednisone {steroid} as prescribed: 40 mg daily x 5 days, then 30 mg daily x 5 days, then 20 mg daily x 5 days, then 10 mg daily x 5 days take your controller medications follow up with your primary care doctor and manager environmental affairs within 1-2 weeks Assessment: as above
--- NOTE | 2021-05-15 14:44 | P.PNIM_ITS ---
Subjective Subjective Date of Service: 05/15/21 Interval History: breathing improved very weak/unsteady, PT recommending STR Physical Exam 2 Vital Signs: Vital Signs: Last Vital Signs Temp 97.4 F 05/15/21 12:00 Pulse 69 05/15/21 13:14 Resp 16 05/15/21 12:00 BP 133/71 05/15/21 13:14 Pulse Ox 96 05/15/21 13:14 Body Mass Index 45.3 Gen: in no acute distress, tired HEENT: sclera anicteric, moist mucus membranes Neck: supple Lungs: diminished bilaterally Heart: regular rate and rhythm, no murmurs Abd: soft, non-tender, non-distended, morbidly obese Ext: no edema Skin: warm/well-perfused Neuro: alert and oriented x3, no focal findings Psych: appropriate affect Objective Data Current Medications Generic Name Dose Route Start Last Admin Trade Name Freq PRN Reason Stop Dose Admin Acetaminophen 650 mg 05/12/21 18:17 05/14/21 15:28 Acetaminophen 325 Mg Tablet PO 650 mg Q6H PRN Administration Pain, Mild (Pain Scale 1-3) Albuterol Sulfate 2.5 mg 05/12/21 20:00 05/15/21 11:17 Albuterol Sulfate (0.083%) 2.5 Mg/3 Ml Vial.Neb INHALE 2.5 mg RQ4H WHILE AWAKE OMERO Administration Apixaban 5 mg 05/12/21 22:30 05/15/21 10:23 Apixaban 5 Mg Tablet PO 5 mg BID OMERO Administration Benzonatate 200 mg 05/12/21 22:16 05/14/21 21:28 Benzonatate 100 Mg Capsule PO 200 mg TID PRN Administration cough Cyanocobalamin 1,000 mcg 05/13/21 09:00 05/15/21 10:23 Cyanocobalamin (Vitamin B-12) 1,000 Mcg Tablet PO 1,000 mcg DAILY OMERO Administration Escitalopram Oxalate 10 mg 05/13/21 09:00 05/15/21 10:24 Escitalopram Oxalate 10 Mg Tablet PO 10 mg DAILY OMERO Administration Gabapentin 600 mg 05/12/21 22:30 05/15/21 10:23 Gabapentin 300 Mg Capsule PO 600 mg BID OMERO Administration Guaifenesin/Dextromethorphan 5 ml 05/12/21 18:17 05/14/21 15:28 Guaifenesin Dm 100/10/5 Ml 5 Ml Syrup PO 5 ml Q4H PRN Administration Cough Hydroxyzine HCl 25 mg 05/12/21 22:16 05/13/21 21:14 Hydroxyzine Hcl 25 Mg Tablet PO 25 mg TID PRN Administration Anxiety Lidocaine 1 patch 05/13/21 09:00 05/15/21 10:24 Lidocaine 4 % Patch Adh..Patch TRANSDERMA 1 patch DAILY OMERO Administration Losartan Potassium 100 mg 05/13/21 09:00 05/15/21 10:23 Losartan Potassium 50 Mg Tablet PO 100 mg DAILY OMERO Administration Protocol Montelukast Sodium 10 mg 05/12/21 22:30 05/14/21 21:20 Montelukast Sodium 10 Mg Tablet PO 10 mg BEDTIME OMERO Administration Morphine Sulfate 2 mg 05/14/21 11:32 Morphine Sulfate 2 Mg/Ml Cartridge IVPUSH Q3H PRN pain,severe Omeprazole 20 mg 05/13/21 06:30 05/15/21 06:04 Omeprazole 20 Mg Capsule.Dr PO 20 mg DAILY@0630 OMERO Administration Ondansetron HCl 4 mg 05/12/21 18:17 05/15/21 10:17 Ondansetron Hcl 4 Mg/2 Ml Vial IVPUSH 4 mg Q8H PRN Administration Nausea and Vomiting Oxycodone HCl 5 mg 05/12/21 22:16 05/14/21 18:07 Oxycodone Hcl Immed Release 5 Mg Tablet PO 5 mg Q8H PRN Administration pain Pharmacy Consult 1 each 05/12/21 17:59 Consult Rx Perform Med Rec MISCELLANE ONCE PRN Consult order Prednisone 40 mg 05/16/21 09:00 Prednisone 20 Mg Tablet PO DAILY OMERO Quetiapine Fumarate 200 mg 05/12/21 22:30 05/14/21 21:21 Quetiapine Fumarate 200 Mg Tablet PO 200 mg BEDTIME OMERO Administration Sodium Chloride 3 ml 05/13/21 00:00 05/15/21 10:24 0.9 % Sodium Chloride Flush 3 Ml Syringe IVFLUSH 3 ml QSHIFT OMERO Administration Sucralfate 4 gm 05/13/21 09:00 05/15/21 10:23 Sucralfate 1 Gm Tablet PO 4 gm DAILY OMERO Administration Vitamin D 25 mcg 05/13/21 09:00 05/15/21 10:23 Cholecalciferol (Vitamin D3) 25 Mcg Tablet PO 25 mcg DAILY OMERO Administration Zolpidem Tartrate 5 mg 05/12/21 22:27 05/14/21 21:29 Zolpidem Tartrate 5 Mg Tablet PO 5 mg BEDTIME PRN Administration Insomnia Labs CBC & Chem 7: 05/13/21 05:28 05/13/21 05:28 Microbiology Microbiology Results: Microbiology 05/12/21 14:17 Blood Culture - Preliminary Blood - Venous No growth after 48 hours. 05/12/21 13:56 Blood Culture - Preliminary Blood - Venous No growth after 48 hours. 05/12/21 18:45 Urine Culture - Final Urine clean catch - Clean Catch Midstream Quality Stroke Does the patient have a stroke diagnosis?: No VTE Prior VTE?: No VTE Risk Level:: Medical - moderate - high VTE Device Contraindication: Treatment Not Indicated VTE Drug Contraindication: N/A - Med Ordered Assessment and Plan (1) Asthma exacerbation: Status: Acute Assessment and Plan: hospital d#3 51yo F with DM2, HTN, asthma admitted for acute asthma exacerbation # acute exacerbation of moderate persistent asthma - change IV to PO steroid taper, standing/prn nebs; continue montelukast # HTN - continue losartan # hx PE - continue apixaban # DM2 - correction-dose lispro # morbid obesity - s/p bariatric surgery # mood disorder - escitalopram, gabapentin, quetiapine # back pain - APAP, oxycodone, morphine # VTE ppx - apixaban # dispo - awaiting STR placement
--- NOTE | 2021-05-15 16:18 | MHC.CM.PN ---
[facility] NOT RESPONDING DESPITE PHONE MESSAGES AND COMMUNICATIONS IN [employer]. LAST VOICE MAIL LEFT FOR FACILITY WAS TO ASK FOR A RETURN CALL AND ASK IF CASE MANAGEMENT SHOULD PLACE ADDITIONAL REFERRALS FOR A BED OFFER. DUE TO TIME OF DAY, AND PATIENT'S NEED FOR HER MANAGED MEDICAID TO AUTHORIZE A BED OFFER, [facility] REFERRALS PLACED. PHYSICIAN AWARE. CASE MANAGEMENT TO FOLLOW UP ON Wednesday05/16/21.
[2021-05-15] MEDS: oxyCODONE HCl Immed Release 5 MG TABLET PO (16:31)
[2021-05-15] MEDS: guaiFENesin DM 100/10/5 ML 5 ML SYRUP PO (16:31)
[2021-05-15] MEDS: Acetaminophen 325 MG TABLET 650 MG PO (18:01)
[2021-05-15] MEDS: QUEtiapine Fumarate 200 MG TABLET PO (19:33)
[2021-05-15] MEDS: hydrOXYzine HCL 25 MG TABLET PO (19:33)
[2021-05-15] MEDS: Montelukast Sodium 10 MG TABLET PO (19:33)
[2021-05-15] MEDS: Zolpidem Tartrate 5 MG TABLET PO (19:33)
[2021-05-16] VITALS (9 sets, daily range): BP systolic 110–123; BP diastolic 38–86; PULSE 62–104; RESP 14–18; TEMP 36.1–36.8; O2SAT 92–100
[2021-05-16] MEDS: 0.9 % Sodium Chloride Flush 3 ML SYRINGE IVFLUSH ×4 (00:47→20:10)
[2021-05-16] MEDS: Omeprazole 20 MG CAPSULE.DR PO (06:38)
[2021-05-16] MEDS: Albuterol Sulfate (0.083%) 2.5 MG/3 ML VIAL.NEB INHALE ×4 (07:08→20:05)
[2021-05-16] MEDS: Cholecalciferol (Vitamin D3) 25 MCG TABLET PO (09:04)
[2021-05-16] MEDS: Escitalopram Oxalate 10 MG TABLET PO (09:05)
[2021-05-16] MEDS: predniSONE 20 MG TABLET 40 MG PO (09:05)
[2021-05-16] MEDS: oxyCODONE HCl Immed Release 5 MG TABLET PO ×2 (09:05→17:25)
[2021-05-16] MEDS: Apixaban 5 MG TABLET PO ×2 (09:05→20:01)
[2021-05-16] MEDS: Gabapentin 300 MG CAPSULE 600 MG PO ×2 (09:05→20:01)
[2021-05-16] MEDS: Sucralfate 1 GM TABLET 4 GM PO (09:05)
[2021-05-16] MEDS: Lidocaine 4 % Patch ADH..PATCH 1 PATCH TRANSDERMA (09:06)
[2021-05-16] MEDS: Cyanocobalamin (Vitamin B-12) 1,000 MCG TABLET 1000 MCG PO (09:06)
[2021-05-16] MEDS: Losartan Potassium 50 MG TABLET 100 MG PO (09:06)
[2021-05-16 12:17] LABS: COVID-19 Test Negative (Negative); IDNOW Serial# 9DD0AD1C
--- NOTE | 2021-05-16 12:37 | MHC.CM.PN ---
Discharge today pending Auth to [facility]. She will transport via [facility]
[2021-05-16] MEDS: Acetaminophen 325 MG TABLET 650 MG PO (17:25)
[2021-05-16] MEDS: Montelukast Sodium 10 MG TABLET PO (20:01)
[2021-05-16] MEDS: QUEtiapine Fumarate 200 MG TABLET PO (20:01)
[2021-05-16] MEDS: Zolpidem Tartrate 5 MG TABLET PO (20:01)
[2021-05-16] MEDS: guaiFENesin DM 100/10/5 ML 5 ML SYRUP PO (20:05)
[2021-05-17] VITALS: BP 100/50; PULSE 65; RESP 16; TEMP 36.4; O2SAT 93
[2021-05-17] MEDS: Morphine Sulfate 2 MG/ML CARTRIDGE IVPUSH ×2 (01:02→11:51)
[2021-05-17] MEDS: Omeprazole 20 MG CAPSULE.DR PO (06:15)
[2021-05-17] MEDS: Benzonatate 100 MG CAPSULE 200 MG PO ×2 (06:30→14:06)
[2021-05-17] MEDS: guaiFENesin DM 100/10/5 ML 5 ML SYRUP PO ×2 (06:31→11:51)
[2021-05-17 07:47] VITALS: BP 102/58; PULSE 67; RESP 16; TEMP 36.3; O2SAT 96
[2021-05-17] MEDS: Albuterol Sulfate (0.083%) 2.5 MG/3 ML VIAL.NEB INHALE ×2 (08:00→11:23)
[2021-05-17 08:02] VITALS: PULSE 68; O2SAT 96
[2021-05-17] MEDS: Gabapentin 300 MG CAPSULE 600 MG PO (08:22)
[2021-05-17] MEDS: Lidocaine 4 % Patch ADH..PATCH 1 PATCH TRANSDERMA (08:22)
[2021-05-17] MEDS: Apixaban 5 MG TABLET PO (08:23)
[2021-05-17] MEDS: predniSONE 20 MG TABLET 40 MG PO (08:23)
[2021-05-17] MEDS: Cholecalciferol (Vitamin D3) 25 MCG TABLET PO (08:23)
[2021-05-17] MEDS: Sucralfate 1 GM TABLET 4 GM PO (08:23)
[2021-05-17] MEDS: Cyanocobalamin (Vitamin B-12) 1,000 MCG TABLET 1000 MCG PO (08:23)
[2021-05-17] MEDS: Escitalopram Oxalate 10 MG TABLET PO (08:23)
[2021-05-17] MEDS: Losartan Potassium 50 MG TABLET 100 MG PO (08:23)
[2021-05-17] MEDS: 0.9 % Sodium Chloride Flush 3 ML SYRINGE IVFLUSH (08:24)
[2021-05-17] MEDS: oxyCODONE HCl Immed Release 5 MG TABLET PO (08:49)
[2021-05-17 10:52] VITALS: BP 103/57; PULSE 91; RESP 16; TEMP 36.4; O2SAT 94
[2021-05-17 11:26] VITALS: PULSE 84; O2SAT 95
--- NOTE | 2021-05-17 11:29 | HO.PM.IMPN ---
Subjective Subjective Date of Service: 05/17/21 Interval History: pt still coughing, wheezing c/o back pain insurance still has not authorized SNF Physical Exam Vital Signs: Vital Signs: Last Vital Signs Temp 97.5 F 05/17/21 10:52 Pulse 84 05/17/21 11:26 Resp 16 05/17/21 10:52 BP 103/57 L 05/17/21 10:52 Pulse Ox 94 05/17/21 10:52 Body Mass Index 45.3 Gen: in no acute distress, tired HEENT: sclera anicteric, moist mucus membranes Neck: supple Lungs: diminished bilaterally, scattered expiratory wheezing Heart: regular rate and rhythm, no murmurs Abd: soft, non-tender, non-distended, morbidly obese Ext: no edema Skin: warm/well-perfused Neuro: alert and oriented x3, no focal findings Psych: appropriate affect Objective Data Current Medications Generic Name Dose Route Start Last Admin Trade Name Freq PRN Reason Stop Dose Admin Acetaminophen 650 mg 05/12/21 18:17 05/16/21 17:25 Acetaminophen 325 Mg Tablet PO 650 mg Q6H PRN Administration Pain, Mild (Pain Scale 1-3) Albuterol Sulfate 2.5 mg 05/12/21 20:00 05/17/21 11:23 Albuterol Sulfate (0.083%) 2.5 Mg/3 Ml Vial.Neb INHALE 2.5 mg RQ4H WHILE AWAKE OMERO Administration Apixaban 5 mg 05/12/21 22:30 05/17/21 08:23 Apixaban 5 Mg Tablet PO 5 mg BID OMEOR Administration Benzonatate 200 mg 05/12/21 22:16 05/17/21 06:30 Benzonatate 100 Mg Capsule PO 200 mg TID PRN Administration cough Cyanocobalamin 1,000 mcg 05/13/21 09:00 05/17/21 08:23 Cyanocobalamin (Vitamin B-12) 1,000 Mcg Tablet PO 1,000 mcg DAILY OMERO Administration Escitalopram Oxalate 10 mg 05/13/21 09:00 05/17/21 08:23 Escitalopram Oxalate 10 Mg Tablet PO 10 mg DAILY OMERO Administration Gabapentin 600 mg 05/12/21 22:30 05/17/21 08:22 Gabapentin 300 Mg Capsule PO 600 mg BID OMERO Administration Guaifenesin/Dextromethorphan 5 ml 05/12/21 18:17 05/17/21 06:31 Guaifenesin Dm 100/10/5 Ml 5 Ml Syrup PO 5 ml Q4H PRN Administration Cough Hydroxyzine HCl 25 mg 05/12/21 22:16 05/15/21 19:33 Hydroxyzine Hcl 25 Mg Tablet PO 25 mg TID PRN Administration Anxiety Lidocaine 1 patch 05/13/21 09:00 05/17/21 08:22 Lidocaine 4 % Patch Adh..Patch TRANSDERMA 1 patch DAILY OMERO Administration Losartan Potassium 100 mg 05/13/21 09:00 05/17/21 08:23 Losartan Potassium 50 Mg Tablet PO 100 mg DAILY OMERO Administration Protocol Montelukast Sodium 10 mg 05/12/21 22:30 05/16/21 20:01 Montelukast Sodium 10 Mg Tablet PO 10 mg BEDTIME OMERO Administration Morphine Sulfate 2 mg 05/14/21 11:32 05/17/21 01:02 Morphine Sulfate 2 Mg/Ml Cartridge IVPUSH 2 mg Q3H PRN Administration pain,severe Omeprazole 20 mg 05/13/21 06:30 05/17/21 06:15 Omeprazole 20 Mg Capsule.Dr PO 20 mg DAILY@0630 OMERO Administration Ondansetron HCl 4 mg 05/12/21 18:17 05/15/21 10:17 Ondansetron Hcl 4 Mg/2 Ml Vial IVPUSH 4 mg Q8H PRN Administration Nausea and Vomiting Oxycodone HCl 5 mg 05/12/21 22:16 05/17/21 08:49 Oxycodone Hcl Immed Release 5 Mg Tablet PO 5 mg Q8H PRN Administration pain Pharmacy Consult 1 each 05/12/21 17:59 Consult Rx Perform Med Rec MISCELLANE ONCE PRN Consult order Prednisone 40 mg 05/16/21 09:00 05/17/21 08:23 Prednisone 20 Mg Tablet PO 40 mg DAILY OMERO Administration Quetiapine Fumarate 200 mg 05/12/21 22:30 05/16/21 20:01 Quetiapine Fumarate 200 Mg Tablet PO 200 mg BEDTIME OMERO Administration Sodium Chloride 3 ml 05/13/21 00:00 05/17/21 08:24 0.9 % Sodium Chloride Flush 3 Ml Syringe IVFLUSH 3 ml QSHIFT OMERO Administration Sucralfate 4 gm 05/13/21 09:00 05/17/21 08:23 Sucralfate 1 Gm Tablet PO 4 gm DAILY OMERO Administration Vitamin D 25 mcg 05/13/21 09:00 05/17/21 08:23 Cholecalciferol (Vitamin D3) 25 Mcg Tablet PO 25 mcg DAILY OMERO Administration Zolpidem Tartrate 5 mg 05/12/21 22:27 05/16/21 20:01 Zolpidem Tartrate 5 Mg Tablet PO 5 mg BEDTIME PRN Administration Insomnia Labs CBC & Chem 7: 05/13/21 05:28 05/13/21 05:28 Labs: Laboratory Results - last 24 hr 05/16/21 12:00 COVID-19 ([facility]) Negative COVID-19 Clin Com See Note Quality Stroke Does the patient have a stroke diagnosis?: No VTE Prior VTE?: No VTE Risk Level:: Medical - moderate - high VTE Device Contraindication: Treatment Not Indicated VTE Drug Contraindication: N/A - Med Ordered Assessment and Plan (1) Asthma exacerbation: Assessment and Plan: hospital d#6 51yo F with DM2, HTN, asthma admitted for acute asthma exacerbation # acute exacerbation of steroid-dependent moderate persistent asthma - PO steroid taper, standing/prn nebs; continue montelukast # HTN - continue losartan # hx PE - continue apixaban # DM2 - correction-dose lispro # morbid obesity - s/p bariatric surgery # mood disorder - escitalopram, gabapentin, quetiapine # back pain - APAP, oxycodone, morphine; add cyclobenzaprine prn # VTE ppx - apixaban # dispo - awaiting insurance authorization for STR placement
--- NOTE | 2021-05-17 12:15 | W.MHC.F2F ---
Service Date Service Date: 05/17/21 Encounter Date of encounter: 05/17/21 Reasons for Services Reason for long term: medication management Reason for physical therapy: home safety and mobility, therapeutic exercises, gait/transfer training, assess need for DME, ADL training and energy conservation Overseeing Care: Claudia Villatoro Homebound: Leaving the home is medically contraindicated at this time without the asist of a device and/or another person due th the listed conditions above and below. Certification: Based on the above findings, I certify that this patient is confined to the home and needs intermittent long term care, physical therapy and/or speech therapy, or continues to need occupational therapy. The patient is under my care, and I have initiated the establishment of the plan of care. The patient will be followed by a physician who will periodically review the plan of care.
--- NOTE | 2021-05-17 12:52 | MHC.CM.PN ---
PATIENT AMBULATING IN ROOM AND HALLWAY WITHOUT ASSISTIVE DEVICE. PLAN IS NOW HOME WITH A REFERRAL TO [facility]. AGENCY WILL VERIFY PCP, AND IF ABLE TO OFFER, WILL START BY WEDNESDAY. PATIENT AWARE AND CONTACT NUMBER FOR NA IS IN DC PAPERWORK.
--- NOTE | 2021-05-17 13:24 | MHC.CM.PN ---
PATIENT'S DAUGHTER (MARIZOL [phone]) IS AWARE OF PATIENT DISCHARGE SHE WILL SECURE TRANSPORT FOR PATIENT AROUND 1500 TODAY. RN AWARE
[2021-05-17] MEDS: Cyclobenzaprine HCl 5 MG TABLET PO (14:06)
== END 2021-05-17 15:21 | disposition home health service (06) | DRG 141 ==
LOC: HO.ED 17:46 → HO.EDOVER 18:34 → HO.S3 19:01
PROVIDERS: Physician Assistant Medical; Admitting Provider Nurse Practitioner Acute Care; Emergency Provider Emergency Medicine; PCP Internal Medicine; Visit Provider Family Medicine
DX: J45.41 Moderate persistent asthma with (acute) exacerbation (principal); E87.2 Acidosis; E66.01 Morbid (severe) obesity due to excess calories; F39 Unspecified mood [affective] disorder; I10 Essential (primary) hypertension; Z98.84 Bariatric surgery status; Z68.42 Body mass index [BMI] 45.0-49.9, adult; Z20.822 Contact with and (suspected) exposure to COVID-19; Z86.711 Personal history of pulmonary embolism; Z79.52 Long term (current) use of systemic steroids; Z79.01 Long term (current) use of anticoagulants; Z79.84 Long term (current) use of oral hypoglycemic drugs; Z79.899 Other long term (current) drug therapy
CPT/HCPCS: 0241U; 36415; 70450; 71045; 80048; 80053; 81001; 81003; 82947; 83605; 83735; 83880; 84484; 85025; 85610; 87040; 87086; 87633; 87635; 93005; 94640; 97110; 97162; 99218; 99284; J0696; J2270; J2405; J2765; J2920; J2930

== ENCOUNTER 2021-05-23 08:51 | Observation (INO) | payer OTHER, SELFPAY ==
[2021-05-23] VITALS (7 sets, daily range): BP systolic 113–155; BP diastolic 69–83; PULSE 58–66; RESP 16–20; TEMP 36.1–36.9; O2SAT 94–100; BMI 41.8; BMI 42.5
--- NOTE | ~2021-05-23 | MR_ITS ---
MRI BRAIN WITHOUT CONTRAST MRV OF THE HEAD WITH AND WITHOUT IV CONTRAST INDICATION: Headaches and dizziness. COMPARISON: Head CT May 23, 2021 brain MRI March 07, 2019. TECHNIQUE: Multiplanar multisequence MR imaging of the brain obtained without contrast. Additionally, a noncontrast and gadolinium infusion MRV of the head are acquired. Vascular post-processing, including 2-dimensional and 3-dimensional reformatted images were created and reviewed on an independent workstation under concurrent physician supervision. Stenoses are graded per criteria similar to NASCET. FINDINGS: BRAIN MRI: There are stable nonspecific T2 signal changes within the bifrontal white matter. There is no hydrocephalus, extra-axial surface collection, or herniation. The major flow voids at the skull base are preserved. There is no acute infarct on diffusion-weighted imaging. There is no intracranial hemorrhage on the gradient recalled echo acquisition. The midline structures are normal. The cerebellar tonsils are normally positioned. The cerebellum and brainstem are normal. The craniocervical junction is normal. Osseous marrow signal intensity is homogenous. The visualized soft tissues are unremarkable. Hyperostosis frontalis interna. HEAD MRV: The superficial and deep venous systems are widely patent. No cerebral venous thrombosis. MR/MR head/brain wo con IMPRESSION: - There are stable nonspecific T2 signal changes within the bifrontal white matter. - There is no cerebral venous thrombosis.
--- NOTE | ~2021-05-23 | CT_ITS ---
EXAMINATION: CT ABDOMEN AND PELVIS WITH CONTRAST CLINICAL INFORMATION: Abdominal pain COMPARISON: Previous CT of the abdomen and pelvis most recent December 2020 TECHNIQUE: Multidetector volumetric images were obtained from the superior aspect of the liver through the pubic symphysis following administration 85 mL of Omnipaque 350 intravenous contrast. Sagittal and coronal reformatted images were obtained on the technologist's workstation. Oral contrast: Yes This CT examination was performed using dose optimization techniques as appropriate, variously including the following: *Automated exposure control *Adjustment of mA and/or kV according to patient size (this includes techniques or standardized protocols for targeted exams where dose is matched to indication/reason for exam; i.e. extremities or head) *Use of iterative reconstruction technique DLP: 865 mGy-cm FINDINGS: LUNG BASES: There is a small calcified nodule in the right middle lobe that is stable. Bases are otherwise clear. LIVER, GALLBLADDER, AND BILIARY TREE: The liver is low in attenuation suggestive of fatty infiltration. No focal liver lesion is seen. The gallbladder is been removed. There is no biliary duct dilatation. PANCREAS: Unremarkable. SPLEEN: Unremarkable. ADRENAL GLANDS: Unremarkable. KIDNEYS AND URETERS: There are bilateral renal cysts, left greater than right. Largest cyst measures 3 x 4 cm in the upper pole of the left kidney. BLADDER: Unremarkable. GASTROINTESTINAL TRACT: There are postsurgical changes following gastric bypass. The small and large bowel are otherwise unremarkable. The appendix is unremarkable. ABDOMINAL WALL: No significant hernia is appreciated. LYMPH NODES: Normal. VASCULAR: Unremarkable. PELVIC VISCERA: The uterus is been removed. No pelvic mass is seen. OSSEOUS STRUCTURES: There is subchondral lucency and sclerosis in the left femoral head suggestive of AVN. There is a hemangioma in the L4 vertebral body. There is degenerative disc disease at L5-S1. CT/CT abdomen pelvis w con IMPRESSION: Fatty liver. Postsurgical changes from gastric bypass. Diverticulosis. Bilateral renal cysts. Left femoral head AVN.
--- NOTE | ~2021-05-23 | MR_ITS ---
MRI BRAIN WITHOUT CONTRAST MRV OF THE HEAD WITH AND WITHOUT IV CONTRAST INDICATION: Headaches and dizziness. COMPARISON: Head CT May 23, 2021 brain MRI March 07, 2019. TECHNIQUE: Multiplanar multisequence MR imaging of the brain obtained without contrast. Additionally, a noncontrast and gadolinium infusion MRV of the head are acquired. Vascular post-processing, including 2-dimensional and 3-dimensional reformatted images were created and reviewed on an independent workstation under concurrent physician supervision. Stenoses are graded per criteria similar to NASCET. FINDINGS: BRAIN MRI: There are stable nonspecific T2 signal changes within the bifrontal white matter. There is no hydrocephalus, extra-axial surface collection, or herniation. The major flow voids at the skull base are preserved. There is no acute infarct on diffusion-weighted imaging. There is no intracranial hemorrhage on the gradient recalled echo acquisition. The midline structures are normal. The cerebellar tonsils are normally positioned. The cerebellum and brainstem are normal. The craniocervical junction is normal. Osseous marrow signal intensity is homogenous. The visualized soft tissues are unremarkable. Hyperostosis frontalis interna. HEAD MRV: The superficial and deep venous systems are widely patent. No cerebral venous thrombosis. MR/MR venography head wo/w con IMPRESSION: - There are stable nonspecific T2 signal changes within the bifrontal white matter. - There is no cerebral venous thrombosis.
--- NOTE | ~2021-05-23 | CT_ITS ---
EXAMINATION: CT HEAD WITHOUT CONTRAST CLINICAL INFORMATION: Headache COMPARISON: Previous head CT most recent 05/12/2021 TECHNIQUE: Contiguous axial imaging was performed from the skull base to vertex without intravenous administration of contrast. This CT examination was performed using dose optimization techniques as appropriate, variously including the following: *Automated exposure control *Adjustment of mA and/or kV according to patient size (this includes techniques or standardized protocols for targeted exams where dose is matched to indication/reason for exam; i.e. extremities or head) *Use of iterative reconstruction technique DLP: 865 mGy-cm FINDINGS: There is no evidence of acute intracranial hemorrhage or territorial infarction. No abnormal mass effect or midline shift is seen. Hua to white matter differentiation is well preserved. No extra-axial fluid collections are identified. The ventricles are normal in size. There is no abnormal attenuation within the brain parenchyma. There is frontal hyperostosis that appears unchanged. The osseous structures and soft tissues are otherwise normal. There is minimal soft tissue opacification of the tip of the right mastoid air cells. The mastoid air cells and visualized portions of the paranasal sinuses are otherwise clear. CT/CT head/brain wo con IMPRESSION: No acute intracranial findings.
--- NOTE | 2021-05-23 10:12 | PC.NURSE ---
PT GIVEN 1 ASSIST TO CLEAN PT OF INCONTINENT BM, ABLE TO ROLL SELF AND REPOSITION. BED LINENS CHANGED.
--- NOTE | 2021-05-23 10:39 | ECG_ITS ---
Test Reason : AB PAIN Blood Pressure : / mmHG Vent. Rate : 067 BPM Atrial Rate : 067 BPM P-R Int : 136 ms QRS Dur : 094 ms QT Int : 420 ms P-R-T Axes : 028 017 021 degrees QTc Int : 443 ms Normal sinus rhythm with sinus arrhythmia Inferior infarct , age undetermined Abnormal ECG When compared with ECG of 12-MAY-2021 13:36, T wave inversion less evident in Anterior leads Referred By: Jenny Sanders Electronically Signed By:ALEM MARIE MD
[2021-05-23] MEDS: diphenhydrAMINE HCL 50 MG/ML VIAL IVPUSH (10:50)
[2021-05-23] MEDS: Metoclopramide HCl 10 MG/2 ML VIAL IVPUSH (10:50)
[2021-05-23] MEDS: Ketorolac Tromethamine 15 MG/ML VIAL IVPUSH (10:50)
[2021-05-23] MEDS: 0.9 % Sodium Chloride 1,000 ML 999 ML IV (10:50)
[2021-05-23 11:44] LABS: Hematocrit 41.4 % (37-47); Hemoglobin 13.5 g/dl (12.0-16.0); Mean Corpuscular HGB Conc 32.6 g/dl (31.0-35.0); Mean Platelet Volume 8.5 fL (9.4-12.3); Platelet Count 257 X10*3/uL (160-400); Red Blood Count 4.36 X10*6/uL (4.20-5.50); Red Cell Distribution Width 13.2 % (11.0-16.0); White Blood Count 13.6 X10*3/uL (4.8-10.8)
[2021-05-23 12:31] LABS: Alanine Aminotransferase 32 U/L (0-31); Albumin Level 3.7 g/dL (3.5-5.0); Alkaline Phosphatase 64 U/L (39-117); Aspartate Amino Transferase 14 U/L (5-31); Bilirubin Direct 0.2 mg/dL (0.0-0.5); Bilirubin Total 0.5 mg/dL (0.0-1.0); Total Protein 5.9 g/dL (6.5-8.0)
[2021-05-23 12:48] LABS: Anion Gap 13 (12-20); Blood Urea Nitrogen 16 mg/dL (9-16); Calcium 9.8 mg/dL (8.4-10.2); Carbon Dioxide 27 mmol/L (22-29); Chloride 104 mmol/L (96-108); Creatinine Clr Calc Pharmacy 58.5; Estimated Glomerular Filt Rate 53; Glucose Random 76 mg/dL (60-115); Lipase 20 U/L (8-78); Potassium 4.3 mmol/L (3.3-5.1); Sodium 140 mmol/L (135-145)
[2021-05-23] MEDS: HYDROmorphone HCl 0.5 MG/0.5 ML SYRINGE IVPUSH ×3 (13:00→16:45)
--- NOTE | 2021-05-23 14:25 | ED.ABDPAIN ---
HPI - Abdominal Pain General Chief Complaint: Abdominal Pain Stated Complaint: dizzy x15 mins Time Seen by Provider: 05/23/21 09:26 History of Present Illness HPI narrative: Patient is a 51-year-old female with a history of pulmonary embolism currently on Eliquis. History of migraine headaches. History of gastric bypass. Complaining today of nausea vomiting abdominal pain additional headache that is frontal similar to previous bouts of migraine worsen with light, worsen with noise. No changes in vision. Throbbing. Patient also feel dizzy. Not quite right. No coughing or congestion or upper respiratory symptoms. No diaphoresis. Patient is from home. No chest pain. The dizziness is more of a weakness. Patient denies spinning sensation. Denies any focal weakness. Related Data Home Medications Medication Instructions Recorded Confirmed montelukast 10 mg PO BEDTIME 08/02/20 05/12/21 apixaban 5 mg tablet 5 mg PO BID 11/05/20 05/12/21 cyanocobalamin (vitamin B-12) 1,000 mcg PO DAILY 11/05/20 05/12/21 1,000 mcg tablet Privigen 40 g IV Q4W 12/12/20 05/12/21 escitalopram oxalate 1 tab PO DAILY 12/12/20 05/12/21 hydroxyzine HCl 1 tab PO TID PRN 12/12/20 05/12/21 cholecalciferol (vitamin D3) 25 25 mcg PO DAILY 03/19/21 05/12/21 mcg (1,000 unit) tablet losartan 1 tab PO DAILY 05/12/21 05/12/21 prednisone 20 mg PO DAILY 05/12/21 05/12/21 quetiapine 1 tab PO BEDTIME 05/12/21 05/12/21 zolpidem 1 tab PO BEDTIME PRN 05/12/21 05/12/21 Previous Rx's Medication Instructions Recorded albuterol sulfate 1 inh INHALATION QID PRN #18 g 10/13/20 omeprazole 20 mg capsule,delayed 20 mg PO DAILY 30 Days #30 cap 12/02/20 release lidocaine 5 % topical patch 1 patch TOPICAL DAILY 30 Days #30 12/24/20 ea sucralfate 1 gram tablet 4 g PO DAILY 30 Days #120 tab 02/07/21 benzonatate 200 mg capsule 200 mg PO TID PRN 30 Days #60 cap 03/19/21 budesonide-formoterol HFA 160 2 puff INHALATION BID 30 Days 03/19/21 mcg-4.5 mcg/actuation aerosol #10.2 g inhaler gabapentin 300 mg capsule 600 mg PO BID 30 Days #120 cap 04/14/21 naloxone 4 mg/actuation nasal spray 4 mg INTRANASAL Q2M PRN #2 ea 05/09/21 oxycodone 5 mg tablet 5 mg PO Q8H PRN 30 Days #90 tab 05/09/21 prednisone See Rx Instructions .ROUTE 05/15/21 .COMPLEX #50 tab ondansetron 4 mg PO TID PRN 5 Days #10 tab 05/23/21 Allergies Allergy/AdvReac Type Severity Reaction Status Date / Time No Known Allergies Allergy Verified 05/12/21 12:25 Review of Systems Review of Systems No fever no chills Positive headache Positive dizziness Positive nausea vomiting No bloody stool All systems reviewed otherwise negative Yes all other systems are reviewed and are negative Physical Exam Vital Signs: Vital Signs: Last Vital Signs Temp 98.4 F 05/23/21 12:44 Pulse 59 05/23/21 12:44 Resp 16 05/23/21 12:44 BP 154/82 H 05/23/21 12:44 Pulse Ox 98 05/23/21 12:44 Body Mass Index 41.8 Appearance: Alert. Oriented X3. No acute distress. Eyes: Pupils equal, round and reactive to light. ENT: Pharynx normal. Neck: Normal inspection. Neck supple. No lymph nodes noted. No crepitus CVS: Normal heart rate and rhythm. Pulses normal. Normal S1 and S2 Respiratory: No respiratory distress. Breath sounds normal. No Wheezing. No rales Abdomen: Soft and nontender. No rigidity. No distention. good BS x4 Skin: Skin warm and dry. Normal skin color. Normal skin turgor. Extremities: No lower extremity edema. Neurovascular intact to all extremities. No Lacerations. No Rash Neuro: Oriented X 3. No motor deficit. No sensory deficit. Moving all extermities. No slurred speech MDM - Abdominal Pain MDM Narrative Medical decision making narrative: CT scan of the head was grossly negative for any acute evidence of bleeding. Patient has a history of being on Eliquis. There was no trauma. CT scan of the abdomen showed no acute evidence of obstruction, abscess, perforation. Patient initially given treatment for migraine headaches. She was able to sleep. Patient's creatinine is normal. In no distress. Will give Zofran for nausea. Close follow-up on an outpatient basis. In stable condition. Neurologically intact. Lab Data Result diagrams: 05/23/21 11:34 05/23/21 11:34 Labs: Lab Results 05/23/21 05/23/21 05/23/21 Range/Units 11:34 11:34 11:34 WBC 13.6 H (4.8-10.8) X10*3/uL RBC 4.36 (4.20-5.50) X10*6/uL Hgb 13.5 (12.0-16.0) g/dl Hct 41.4 (37-47) % MCV 95.0 (80-98) fL MCH 31.0 (27.0-33.0) pg MCHC 32.6 (31.0-35.0) g/dl RDW 13.2 (11.0-16.0) % Plt Count 257 D (160-400) X10*3/uL MPV 8.5 L (9.4-12.3) fL Absolute Nucleated RBC 0.000 (0.0-0.012) X10*3/uL Nucleated RBC % (auto) 0.0 (0.0-0.2) /100WBC Sodium 140 (135-145) mmol/L Potassium 4.3 (3.3-5.1) mmol/L Chloride 104 (96-108) mmol/L Carbon Dioxide 27 (22-29) mmol/L Anion Gap 13 (12-20) BUN 16 (9-16) mg/dL Creatinine 1.08 (0.5-1.4) mg/dL Estim Creat Clear Calc 58.5 Estimated GFR 53 Random Glucose 76 D (60-115) mg/dL Calcium 9.8 D (8.4-10.2) mg/dL Total Bilirubin 0.5 (0.0-1.0) mg/dL Direct Bilirubin 0.2 (0.0-0.5) mg/dL AST 14 (5-31) U/L ALT 32 H (0-31) U/L Alkaline Phosphatase 64 (39-117) U/L Total Protein 5.9 L (6.5-8.0) g/dL Albumin 3.7 (3.5-5.0) g/dL Lipase 20 (8-78) U/L Discharge Plan Discharge Clinical Impression: Headache, Vomiting Patient Disposition: Home, Self-Care Instructions: Dizziness (ED), Migraine Headache (ED) Prescriptions: New ondansetron 4 mg tablet,disintegrating 4 mg PO TID PRN (Reason: nausea and vomiting) 5 Days Qty: 10 RF: 0 No Action sucralfate [Carafate] 1 gram tablet 4 g PO DAILY 30 Days Qty: 120 RF: 2 gabapentin [Neurontin] 300 mg capsule 600 mg PO BID 30 Days Qty: 120 RF: 11 hydroxyzine HCl 25 mg tablet 1 tab PO TID PRN (Reason: Anxiety) RF: 0 escitalopram oxalate 10 mg tablet 1 tab PO DAILY RF: 0 Privigen 10 % solution 40 g IV Q4W RF: 0 montelukast 10 mg tablet 10 mg PO BEDTIME RF: 0 albuterol sulfate 90 mcg/actuation HFA aerosol inhaler 1 inh inhalation QID PRN (Reason: shortness of breath or wheezing) Qty: 18 RF: 0 quetiapine 200 mg tablet 1 tab PO BEDTIME RF: 0 losartan 100 mg tablet 1 tab PO DAILY RF: 0 zolpidem 10 mg tablet 1 tab PO BEDTIME PRN (Reason: Insomnia) RF: 0 prednisone 20 mg tablet 20 mg PO DAILY RF: 0 prednisone 10 mg tablet See Rx Instructions .ROUTE .COMPLEX Qty: 50 RF: 0 cholecalciferol (vitamin D3) 25 mcg (1,000 unit) tablet 25 mcg PO DAILY RF: 0 budesonide-formoterol [Symbicort] 160-4.5 mcg/actuation HFA aerosol inhaler 2 puff inhalation BID 30 Days Qty: 10.2 RF: 11 benzonatate 200 mg capsule 200 mg PO TID PRN (Reason: cough) 30 Days Qty: 60 RF: 3 cyanocobalamin (vitamin B-12) 1,000 mcg tablet 1,000 mcg PO DAILY RF: 0 apixaban 5 mg tablet 5 mg PO BID RF: 0 omeprazole 20 mg capsule,delayed release(DR/EC) 20 mg PO DAILY 30 Days Qty: 30 RF: 0 lidocaine [Lidoderm] 5 % adhesive patch,medicated 1 patch topical DAILY 30 Days Qty: 30 RF: 11 oxycodone 5 mg tablet 5 mg PO Q8H PRN (Reason: pain) 30 Days Qty: 90 RF: 0 Narcan 4 mg/actuation spray,non-aerosol 4 mg intranasal Q2M PRN (Reason: opioid overdose) Qty: 2 RF: 0 Referrals: Physician,Unknown [Primary Care Provider] - 2 days Print Language: Citizen [place] [facility] Past Medical History Attestation statement: The following information was validated with the patient. Medical History Anemia Arthritis Asthma Asthma exacerbation Back pain Bronchitis Chronic pain syndrome Complex regional pain syndrome i of left lower limb Cough Depression Diabetic neuropathy Diet-controlled diabetes mellitus Elevated lactic acid level Essential hypertension Fibromyalgia Headache, migraine Hypogammaglobulinemia Hypothyroidism Laryngotracheitis Low back pain Migraines Morbid obesity BABATUNDE (obstructive sleep apnea) Pleuritic chest pain Pulmonary embolism Sleep apnea Spondylosis of lumbar spine TIA (transient ischemic attack) Type 2 diabetes mellitus with unspecified complications Surgical History History of bariatric surgery History of cholecystectomy History of esophagogastroduodenoscopy (EGD) Hx of colonoscopy S/P total abdominal hysterectomy Family History Family History Mother Diabetes Stroke Family/Other Diabetes Father Diabetes Social History Social History Household Members: Spouse Housing: House Do you presently have visiting nurse or other home services: No Alcohol intake: never Patient Tobacco Use Status: Never used Tobacco Use of substances other than those prescribed or required for medical reasons: No Advance Directives: Yes Advance Directives Information Provided: Yes Advance Directives on File: No Patient : No service: No Current occupational status: disabled
[2021-05-23] MEDS: Meclizine HCl 25 MG TABLET PO ×2 (15:09→22:31)
[2021-05-23 15:10] LABS: Glucose, Whole Blood 82 mg/dL (60-115)
[2021-05-23] MEDS: LORazepam 0.5 MG TABLET PO (16:44)
--- NOTE | 2021-05-23 19:21 | PC.NURSE ---
REPORT TAKEN FROM [facility], FIRST CONTACT WITH PT. RESTING IN BED SKIN PWD RESPIRATIONS EVEN UNLABORED, WATCHING TV. REPORTS UNRESOLVED GENERALIZED PAIN AND DIZZINESS DESPITE PREVIOUSLY ADMINISTERED MEDICATIONS. MD JAUREGUI NOTIFIED. 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
--- NOTE | 2021-05-23 19:36 | PM.IMHP ---
History of Present Illness Date of Service: 05/23/21 Chief Complaint: Dizziness 51-year-old female with a past medical history of anxiety, depression, chronic regional pain syndrome of left lower limb, diabetes, diabetic neuropathy, hypertension, fibromyalgia, hypothyroidism, chronic low back pain, morbid obesity, obstructive sleep apnea, history of pulmonary embolism on anticoagulation, history of TIA, arthritis, asthma, anemia, history of migraine headaches presented to the hospital with a chief complaint of dizziness. Patient reported this morning she woke up when she started to have dizziness; associated nausea and vomiting; she patient reports he had multiple episodes of nausea and vomiting; her dizziness worsens with change in position; reported spoke room spinning; denies any headaches or blurry visions. Patient unable to recall differentiate if the nausea vomiting heparin 1st or dizziness mentions everything happened at the same time; Denies any numbness tingling. Denies any focal weeks. Denies any falls. Denies any urinary symptoms. Denies any diarrhea. Denies any blood in the vomitus Denies similar symptoms in the past; Denies any chest pain or palpitations Review of all other systems is negative except mentioned above ER course: The patient received multiple doses of pain medications, meclizine, Zofran with no significant improvement; CT head and CT abdomen showed no acute findings; exam was nonfocal; given patient still feels dizzy ER team decided to admit to the hospital for further management. Also concern for safety /fall given patient is on anticoagulation. [facility], [facility] Medical History (Updated 05/26/21 @ 10:06 by Baltazar Tello MD) Anemia Arthritis Asthma Asthma exacerbation Back pain Bronchitis Chronic pain syndrome Complex regional pain syndrome i of left lower limb Cough Depression Diabetic neuropathy Diet-controlled diabetes mellitus Elevated lactic acid level Essential hypertension Fibromyalgia Headache, migraine Hypogammaglobulinemia Hypothyroidism Laryngotracheitis Low back pain Migraines Morbid obesity BABATUNDE (obstructive sleep apnea) Pleuritic chest pain 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 Pulmonary embolism Sleep apnea Spondylosis of lumbar spine TIA (transient ischemic attack) Type 2 diabetes mellitus with unspecified complications Family History Mother Diabetes Stroke Family/Other Diabetes Father Diabetes Surgical History History of bariatric surgery History of cholecystectomy History of esophagogastroduodenoscopy (EGD) Hx of colonoscopy S/P total abdominal hysterectomy Social History Household Members: Spouse Housing: House Do you presently have visiting nurse or other home services: No Alcohol intake: never Patient Tobacco Use Status: Never used Tobacco Advance Directives Date on File: 05/23/21 service: No Current occupational status: unemployed and disabled Meds Allergies Allergy/AdvReac Type Severity Reaction Status Date / Time No Known Allergies Allergy Verified 05/12/21 12:25 Active Medications: Current Medications Generic Name Dose Route Start Last Admin Trade Name Freq PRN Reason Stop Dose Admin Acetaminophen 650 mg 05/23/21 19:31 Acetaminophen 325 Mg Tablet PO Q6H PRN Pain, Mild (Pain Scale 1-3) Insulin Human Lispro 0 unit 05/23/21 21:00 Insulin Lispro 100 Unit/Ml 3 Ml Vial SUBCUT [facility] Protocol Meclizine HCl 25 mg 05/23/21 19:31 Meclizine Hcl 25 Mg Tablet PO Q6H PRN dizziness Pharmacy Consult 1 each 05/23/21 19:24 Consult Rx Perform Med Rec MISCELLANE ONCE PRN Consult order Sodium Chloride 3 ml 05/24/21 00:00 0.9 % Sodium Chloride Flush 3 Ml Syringe IVFLUSH [facility] Home Medications Medication Instructions Recorded Confirmed Last Taken Type montelukast 10 mg tablet 10 mg PO BEDTIME 08/02/20 05/23/21 05/22/21 History apixaban 5 mg tablet 5 mg PO BID 11/05/20 05/23/21 05/22/21 History cyanocobalamin (vitamin B-12) 1,000 mcg PO DAILY 11/05/20 05/23/21 05/22/21 History 1,000 mcg tablet hydroxyzine HCl 25 mg tablet 1 tab PO TID PRN 12/12/20 05/23/21 05/22/21 History cholecalciferol (vitamin D3) 25 25 mcg PO DAILY 03/19/21 05/23/21 05/22/21 History mcg (1,000 unit) tablet losartan 100 mg tablet 1 tab PO DAILY 05/12/21 05/23/21 05/22/21 History eszopiclone 3 mg tablet 1 tab PO BEDTIME 05/23/21 05/23/21 05/22/21 History lidocaine 5 % topical patch 1 patch TOPICAL DAILY PRN 05/23/21 05/23/21 Unknown History (Lidoderm) lorazepam 0.5 mg tablet 0.5 tab PO DAILY PRN 05/23/21 05/23/21 05/22/21 History prednisone 10 mg tablet 10 mg PO DAILY 05/23/21 05/23/21 05/22/21 History Physical Exam Vital Signs and Narrative: Vital Signs: Last Vital Signs Temp 98.5 F 05/23/21 17:34 Pulse 64 05/23/21 17:34 Resp 20 05/23/21 17:34 BP 145/83 H 05/23/21 17:34 Pulse Ox 94 05/23/21 17:34 Body Mass Index 41.8 Gen: Appears be in no acute distress HEENT: NCAT, Moist mucosa. No nystagmus Pulmonary: Vesicular breath sounds, fair air entry CVS: Normal S1-S2 Abdomen: BS+, Soft, Nontender Extremities: Warm well perfused Neuro: Alert and awake. Nonfocal exam; normal [id number] test. Results Labs CBC and Chem 7: 05/25/21 05:55 05/25/21 05:55 Labs: Laboratory Results - last 24 hr 05/23/21 05/23/21 05/23/21 11:34 11:34 11:34 MCV 95.0 MCH 31.0 MCHC 32.6 RDW 13.2 Plt Count 257 D MPV 8.5 L Absolute Nucleated RBC 0.000 Nucleated RBC % (auto) 0.0 Anion Gap 13 Estim Creat Clear Calc 58.5 Estimated GFR 53 POC Glucose Random Glucose 76 D Calcium 9.8 D Total Bilirubin 0.5 Direct Bilirubin 0.2 AST 14 ALT 32 H Alkaline Phosphatase 64 Total Protein 5.9 L Albumin 3.7 Lipase 05/23/21 15:06 MCV MCH MCHC RDW Plt Count MPV Absolute Nucleated RBC Nucleated RBC % (auto) Anion Gap Estim Creat Clear Calc Estimated GFR POC Glucose 82 Random Glucose Calcium Total Bilirubin Direct Bilirubin AST ALT Alkaline Phosphatase Total Protein Albumin Lipase Imaging Radiologist's Impressions: Impressions Abdomen/Pelvis CT 05/23/21 10:40 IMPRESSION: Fatty liver. Postsurgical changes from gastric bypass. Diverticulosis. Bilateral renal cysts. Left femoral head AVN. Head CT 05/23/21 10:40 IMPRESSION: No acute intracranial findings. Assessment and Plan (1) Dizziness: Status: Acute 51-year-old female with a past medical history of anxiety, depression, chronic regional pain syndrome of left lower limb, diabetes, diabetic neuropathy, hypertension, fibromyalgia, hypothyroidism, chronic low back pain, morbid obesity, obstructive sleep apnea, history of pulmonary embolism on anticoagulation, history of TIA, arthritis, asthma, anemia, history of migraine headaches presented to the hospital with a chief complaint of dizziness. Dizziness: Patient is still symptomatic urine after receiving Ativan, meclizine in the ER; Given persistent symptoms, will consult Neurology for further recommendations; Telemetry Cycle cardiac enzymes Meclizine p.r.n. Cannot do CT angio head and neck tonight as patient just received contrast for CT abdomen. Will defer to the a.m. team. Patient is on multiple sedating medications at home-reduced their doses as below Gabapentin: 600 mg b.i.d. to 300 mg b.i.d. Seroquel: 200 mg at bedtime to 100 mg at bedtime Ambien: 10 mg at bedtime to 5 mg at bedtime Stopped eszopiclone Patient is also on oxycodone at home as needed. Nausea/vomiting: Benign examination. CT abdomen showed no acute findings. Supportive care. Diabetes: Insulin sliding scale For all other chronic conditions, continue home medications Left femoral head avascular necrosis: Outpatient follow-up with the PCP/orthopedics. DVT prophylaxis: SCD boots Code status: Full code Quality Stroke Does the patient have a stroke diagnosis?: No VTE Prior VTE?: No VTE Risk Level:: Medical - moderate - high VTE Device Contraindication: N/A - Device Ordered VTE Drug Contraindication: Treatment Not Indicated
--- NOTE | 2021-05-23 19:57 | PC.NURSE ---
PT TO BE ADMITTED, AWARE OF PLAN OF CARE. AGRONOMY SPECIALIST APPLIED, NSR ON MONITOR.
--- NOTE | 2021-05-23 20:19 | PHA.MEDREC ---
Pharmacy Consult ? Medication Reconciliation Pharmacy has completed the medication reconciliation. Patient does not recognize the name Lexapro or escitalopram, she has been getting filled regular with the last fill date 05/14/2021. Alanna Martinez, ShivamD
[2021-05-23 20:32] LABS: COVID-19 Test Negative (Negative)
[2021-05-23 21:12] LABS: Glucose, Whole Blood 82 mg/dL (60-115)
--- NOTE | 2021-05-23 21:16 | PC.NURSE ---
REPORT GIVEN TO FLOOR, AWAITING TRANSPORT.
[2021-05-23] MEDS: 0.9 % Sodium Chloride Flush 3 ML SYRINGE IVFLUSH (21:57)
[2021-05-23 21:59] LABS: Glucose, Whole Blood 81 mg/dL (60-115)
[2021-05-23] MEDS: Acetaminophen 325 MG TABLET 650 MG PO (22:31)
[2021-05-23] MEDS: QUEtiapine Fumarate 100 MG TABLET PO (22:55)
[2021-05-23] MEDS: Zolpidem Tartrate 5 MG TABLET PO (22:58)
[2021-05-24] VITALS (12 sets, daily range): BP systolic 104–143; BP diastolic 56–75; PULSE 56–80; RESP 14–18; TEMP 36.2–36.9; O2SAT 92–98
[2021-05-24 00:44] LABS: Troponin-I High Sensitivity 4.6 ng/L (<3.5-17.0)
[2021-05-24] MEDS: oxyCODONE HCl Immed Release 5 MG TABLET PO ×3 (01:43→23:59)
[2021-05-24 02:31] LABS: Glucose, Whole Blood 81 mg/dL (60-115)
[2021-05-24] MEDS: Acetaminophen 325 MG TABLET 650 MG PO (04:35)
[2021-05-24] MEDS: Meclizine HCl 25 MG TABLET PO (04:35)
[2021-05-24 06:48] LABS: MANUAL DIFF FLAG NO
[2021-05-24 06:58] LABS: Basophils Percent Auto 0.2 % (0-2); Eosinophils Absolute Auto 0.1 X10*3/uL (0.0-0.4); Hematocrit 41.2 % (37-47); Hemoglobin 13.1 g/dl (12.0-16.0); Imm Gran Abs Auto 0.38 X10*3/uL (0.00-0.03); Imm Gran Pct Auto 3.6 % (0.0-0.4); Lymphocytes Percent Auto 18.5 % (20-40); Mean Corpuscular HGB Conc 31.8 g/dl (31.0-35.0); Mean Corpuscular Volume 97.4 fL (80-98); Mean Platelet Volume 8.4 fL (9.4-12.3); Monocytes Absolute Auto 0.7 X10*3/uL (0.1-1.2); Neutrophils Absolute Auto 7.4 X10*3/uL (2.0-8.3); Neutrophils Percent Auto 69.7 % (45-73); Platelet Count 243 X10*3/uL (160-400); Red Blood Count 4.23 X10*6/uL (4.20-5.50); Red Cell Distribution Width 13.8 % (11.0-16.0); White Blood Count 10.6 X10*3/uL (4.8-10.8)
[2021-05-24 07:25] LABS: Anion Gap 13 (12-20); Blood Urea Nitrogen 17 mg/dL (9-16); Calcium 9.9 mg/dL (8.4-10.2); Carbon Dioxide 28 mmol/L (22-29); Chloride 104 mmol/L (96-108); Creatinine Clr Calc Pharmacy 50.2; Estimated Glomerular Filt Rate 44; Glucose Random 69 mg/dL (60-115); Potassium 4.9 mmol/L (3.3-5.1); Sodium 140 mmol/L (135-145)
[2021-05-24 07:30] LABS: Glucose, Whole Blood 81 mg/dL (60-115)
[2021-05-24] MEDS: Fluticasone/Vilanterol 200/25 BLST.W.DEV 1 PUFF INHALE (07:30)
--- NOTE | 2021-05-24 07:46 | P.CNNE_ITS ---
Assessment and Plan (1) Headache: Status: Acute 51 years old woman with complicated underlying history has severe headache associated with dizziness nausea vomiting and diarrhea. There is no fever and no obvious metabolic abnormality. Previously she is known to have PE. Differential diagnosis would include status migrainosus, a viral illness, or a venous sinus pathology brain. Because of previous history of pulmonary embolism I would suggest obtaining an MRI and MRV of brain. Otherwise treatment is like treatment of severe migraine. I would suggest trying sumatriptan 50-100 mg in combination with 5-10 mg metoclopramide and naproxen 500 mg with meals. History of Present Illness Data of Consult Service Date: 05/24/21 Primary Care Provider: Unknown Physician 51 years old woman with underlying history of chronic pain syndrome and pulmonary embolism came to hospital with severe headache and dizziness. She also reported vomiting and diarrhea. She said that she was not sick with cold or flu-like illness did not have fever. There was no ear symptoms. There was no recent trauma. She was moderately distressed when I saw her. Review of Systems Review of Systems: No recent cold or flu-like illness though she was having symptoms as reported in HPI. [facility] Past Medical History Medical History Anemia Arthritis Asthma Asthma exacerbation Back pain Bronchitis Chronic pain syndrome Complex regional pain syndrome i of left lower limb Cough Depression Diabetic neuropathy Diet-controlled diabetes mellitus Elevated lactic acid level Essential hypertension Fibromyalgia Headache, migraine Hypogammaglobulinemia Hypothyroidism Laryngotracheitis Low back pain Migraines Morbid obesity BABATUNDE (obstructive sleep apnea) Pleuritic chest pain Pulmonary embolism Sleep apnea Spondylosis of lumbar spine TIA (transient ischemic attack) Type 2 diabetes mellitus with unspecified complications Family History Family History Mother Diabetes Stroke Family/Other Diabetes Father Diabetes Surgical History Surgical History History of bariatric surgery History of cholecystectomy History of esophagogastroduodenoscopy (EGD) Hx of colonoscopy S/P total abdominal hysterectomy Social History Social History Household Members: Spouse Housing: House Do you presently have visiting nurse or other home services: No Alcohol intake: never Patient Tobacco Use Status: Never used Tobacco Use of substances other than those prescribed or required for medical reasons: No Advance Directives: Yes Advance Directives Information Provided: Yes Advance Directives on File: No Advance Directives Date on File: 05/23/21 Patient : No service: No Current occupational status: disabled Meds Allergies Allergy/AdvReac Type Severity Reaction Status Date / Time No Known Allergies Allergy Verified 05/12/21 12:25 Active Medications: Current Medications Generic Name Dose Route Start Last Admin Trade Name Freq PRN Reason Stop Dose Admin Acetaminophen 650 mg 05/23/21 19:31 05/24/21 04:35 Acetaminophen 325 Mg Tablet PO 650 mg Q6H PRN Administration Pain, Mild (Pain Scale 1-3) Albuterol Sulfate 1 puff 05/23/21 22:39 Albuterol Sulfate 90 Mcg 8 Gm Inhaler INHALE QID PRN shortness of breath or wheezing Apixaban 5 mg 05/24/21 09:00 Apixaban 5 Mg Tablet PO BID [facility] Benzonatate 200 mg 05/23/21 22:39 Benzonatate 100 Mg Capsule PO TID PRN cough Cyanocobalamin 1,000 mcg 05/24/21 09:00 Cyanocobalamin (Vitamin B-12) 1,000 Mcg Tablet PO DAILY [facility] Fluticasone/Vilanterol 1 puff 05/24/21 09:00 05/24/21 07:30 Fluticasone/Vilanterol 200/25 Blst.W.Dev INHALE 1 puff DAILY [facility] Administration Gabapentin 300 mg 05/24/21 09:00 Gabapentin 300 Mg Capsule PO BID [facility] Insulin Human Lispro 0 unit 05/23/21 21:00 05/24/21 07:37 Insulin Lispro 100 Unit/Ml 3 Ml Vial SUBCUT Not Given QIDACHS [facility] Protocol Lidocaine 1 patch 05/23/21 22:49 Lidocaine 4 % Patch Adh..Patch TRANSDERMA DAILY PRN Back Pain Lorazepam 0.25 mg 05/23/21 22:39 Lorazepam 0.5 Mg Tablet PO DAILY PRN anxiety Losartan Potassium 100 mg 05/24/21 09:00 Losartan Potassium 50 Mg Tablet PO DAILY [facility] Protocol Meclizine HCl 25 mg 05/23/21 19:31 05/24/21 04:35 Meclizine Hcl 25 Mg Tablet PO 25 mg Q6H PRN Administration dizziness Montelukast Sodium 10 mg 05/24/21 21:00 Montelukast Sodium 10 Mg Tablet PO BEDTIME [facility] Naloxone HCl 4 mg 05/23/21 22:39 Naloxone Hcl Nasal 4 Mg [place] NOSTRILALT Q2M PRN opioid overdose Omeprazole 20 mg 05/24/21 09:00 Omeprazole 20 Mg Capsule.Dr PO DAILY [facility] Oxycodone HCl 5 mg 05/23/21 22:39 05/24/21 01:43 Oxycodone Hcl Immed Release 5 Mg Tablet PO 5 mg Q8H PRN Administration pain Pharmacy Consult 1 each 05/23/21 19:24 Consult Rx Perform Med Rec MISCELLANE ONCE PRN Consult order Prednisone 10 mg 05/24/21 09:00 Prednisone 10 Mg Tablet PO DAILY [facility] Quetiapine Fumarate 100 mg 05/23/21 22:45 05/23/21 22:55 Quetiapine Fumarate 100 Mg Tablet PO 100 mg BEDTIME [facility] Administration Sodium Chloride 3 ml 05/24/21 00:00 05/23/21 21:57 0.9 % Sodium Chloride Flush 3 Ml Syringe IVFLUSH 3 ml QSHIFT [facility] Administration Sucralfate 4 gm 05/24/21 09:00 Sucralfate 1 Gm Tablet PO DAILY [facility] Vitamin D 25 mcg 05/24/21 09:00 Cholecalciferol (Vitamin D3) 25 Mcg Tablet PO DAILY [facility] Zolpidem Tartrate 5 mg 05/23/21 22:39 05/23/21 22:58 Zolpidem Tartrate 5 Mg Tablet PO 5 mg BEDTIME PRN Administration Insomnia Home Medications Medication Instructions Recorded Confirmed Last Taken Type montelukast 10 mg PO BEDTIME 08/02/20 05/23/21 05/22/21 History apixaban 5 mg tablet 5 mg PO BID 11/05/20 05/23/21 05/22/21 History cyanocobalamin (vitamin B-12) 1,000 mcg PO DAILY 11/05/20 05/23/21 05/22/21 History 1,000 mcg tablet Privigen 40 g IV Q4W 12/12/20 05/23/21 05/22/21 History hydroxyzine HCl 1 tab PO TID PRN 12/12/20 05/23/21 05/22/21 History cholecalciferol (vitamin D3) 25 25 mcg PO DAILY 03/19/21 05/23/21 05/22/21 History mcg (1,000 unit) tablet losartan 1 tab PO DAILY 05/12/21 05/23/21 05/22/21 History quetiapine 1 tab PO BEDTIME 05/12/21 05/23/21 05/22/21 History zolpidem 1 tab PO BEDTIME PRN 05/12/21 05/23/21 05/22/21 History eszopiclone 1 tab PO BEDTIME 05/23/21 05/23/21 05/22/21 History lidocaine [Lidoderm] 1 patch TOPICAL DAILY PRN 05/23/21 05/23/21 Unknown History lorazepam 0.5 tab PO DAILY PRN 05/23/21 05/23/21 05/22/21 History prednisone 10 mg PO DAILY 05/23/21 05/23/21 05/22/21 History Physical Exam Vital Signs: Vital Signs: Last Vital Signs Temp 98.4 F 05/24/21 07:45 Pulse 68 05/24/21 07:45 Resp 18 05/24/21 07:45 BP 120/56 L 05/24/21 07:45 Pulse Ox 94 05/24/21 07:45 Body Mass Index 42.5 She was alert and awake with normal spontaneity of speech fluency comprehension and depressed affect. She was in moderate distress due to pain holding her head. Face was symmetrical. She barely could open her eyes limiting examination. This seems to be left word transient nystagmus with left sided gaze. Face is symmetrical. There is no focal arm or leg weakness but she was not very cooperative with examination. Deep tendon reflexes were trace to absent with flexor plantars. Results Labs CBC & Chem 7: 05/24/21 06:00 05/24/21 06:00 Labs: Short CBC 05/23/21 05/24/21 Range/Units 11:34 06:00 WBC 13.6 H 10.6 (4.8-10.8) X10*3/uL Hgb 13.5 13.1 (12.0-16.0) g/dl Hct 41.4 41.2 (37-47) % Plt Count 257 D 243 (160-400) X10*3/uL BMP 05/23/21 05/24/21 11:34 06:00 Sodium 140 140 Potassium 4.3 4.9 Chloride 104 104 Carbon Dioxide 27 28 BUN 16 17 H Creatinine 1.08 1.27 Calcium 9.8 D 9.9 Liver Function 05/23/21 Range/Units 11:34 Total Bilirubin 0.5 (0.0-1.0) mg/dL Direct Bilirubin 0.2 (0.0-0.5) mg/dL AST 14 (5-31) U/L ALT 32 H (0-31) U/L Alkaline Phosphatase 64 (39-117) U/L Albumin 3.7 (3.5-5.0) g/dL Her noncontrast head CT was reported normal. Procedures Date of Service Date of Service: 05/24/21
[2021-05-24] MEDS: Gabapentin 300 MG CAPSULE PO ×2 (10:05→20:20)
[2021-05-24] MEDS: SUMAtriptan succinate 50 MG TABLET PO (10:06)
[2021-05-24] MEDS: Losartan Potassium 50 MG TABLET 100 MG PO (10:06)
[2021-05-24] MEDS: Apixaban 5 MG TABLET PO ×2 (10:13→20:20)
[2021-05-24] MEDS: Cholecalciferol (Vitamin D3) 25 MCG TABLET PO (10:13)
[2021-05-24] MEDS: Sucralfate 1 GM TABLET 4 GM PO (10:13)
[2021-05-24] MEDS: Omeprazole 20 MG CAPSULE.DR PO (10:14)
[2021-05-24] MEDS: 0.9 % Sodium Chloride Flush 3 ML SYRINGE IVFLUSH ×3 (10:14→20:21)
[2021-05-24] MEDS: predniSONE 10 MG TABLET PO (10:14)
[2021-05-24] MEDS: Cyanocobalamin (Vitamin B-12) 1,000 MCG TABLET 1000 MCG PO (10:14)
[2021-05-24 12:04] LABS: Glucose, Whole Blood 81 mg/dL (60-115)
--- NOTE | 2021-05-24 13:00 | MHC.CM.PN ---
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 PT REPORTS SHE LIVES WITH HER S/O AND IS INDEPENDENT WITH CARE. PT REPORTS SHE HAS A CPAP AND NEBULIZER AT HOME. PT HAS NO HOME SERVICES. PT CONFIRMS THE HCP ON FILE NAMING HER DAUGHTER, BLANCA, IS ACCURATE. PT REPORTS HE PCP IS [facility]. OBS NOTICE DELIVERED CURRENT DC PLAN IS HOME WITH NO SERVICES PT TO SELF ARRANGE TRANSPORT
--- NOTE | 2021-05-24 14:31 | HO.PM.IMPN ---
Subjective Subjective Date of Service: 05/29/21 Interval History: Abdominal pain, dizziness Review of Systems Complaints-vomiting, diarrhea, epigastric discomfort Also has some dizziness and headaches Physical Exam Vital Signs: Vital Signs: Last Vital Signs Temp 97.2 F 05/24/21 12:00 Pulse 62 05/24/21 12:00 Resp 18 05/24/21 12:00 BP 143/75 H 05/24/21 12:00 Pulse Ox 97 05/24/21 12:00 Body Mass Index 42.5 Physical exam: heent: Neck supple, eyes: Anicteric, no discharge. Cvs: rrr, [id number] , no murmur res: clear to auscultation ,no rhonchii or wheezing abd: Has epigastric discomfort, no rebound or guarding ,nt, bs present. ext pulses present , no cyanosis neuro: axo3 , nonfocal. Objective Data Current Medications Generic Name Dose Route Start Last Admin Trade Name Freq PRN Reason Stop Dose Admin Acetaminophen 650 mg 05/23/21 19:31 05/24/21 04:35 Acetaminophen 325 Mg Tablet PO 650 mg Q6H PRN Administration Pain, Mild (Pain Scale 1-3) Albuterol Sulfate 1 puff 05/23/21 22:39 Albuterol Sulfate 90 Mcg 8 Gm Inhaler INHALE QID PRN shortness of breath or wheezing Apixaban 5 mg 05/24/21 09:00 05/24/21 10:13 Apixaban 5 Mg Tablet PO 5 mg BID [facility] Administration Benzonatate 200 mg 05/23/21 22:39 Benzonatate 100 Mg Capsule PO TID PRN cough Cyanocobalamin 1,000 mcg 05/24/21 09:00 05/24/21 10:14 Cyanocobalamin (Vitamin B-12) 1,000 Mcg Tablet PO 1,000 mcg DAILY [facility] Administration Fluticasone/Vilanterol 1 puff 05/24/21 09:00 05/24/21 07:30 Fluticasone/Vilanterol 200/25 Blst.W.Dev INHALE 1 puff DAILY [facility] Administration Gabapentin 300 mg 05/24/21 09:00 05/24/21 10:05 Gabapentin 300 Mg Capsule PO 300 mg BID [facility] Administration Insulin Human Lispro 0 unit 05/23/21 21:00 05/24/21 12:12 Insulin Lispro 100 Unit/Ml 3 Ml Vial SUBCUT Not Given QIDACHS [facility] Protocol Lidocaine 1 patch 05/23/21 22:49 Lidocaine 4 % Patch Adh..Patch TRANSDERMA DAILY PRN Back Pain Lorazepam 0.25 mg 05/23/21 22:39 Lorazepam 0.5 Mg Tablet PO DAILY PRN anxiety Losartan Potassium 100 mg 05/24/21 09:00 05/24/21 10:06 Losartan Potassium 50 Mg Tablet PO 100 mg DAILY [facility] Administration Protocol Meclizine HCl 25 mg 05/23/21 19:31 05/24/21 04:35 Meclizine Hcl 25 Mg Tablet PO 25 mg Q6H PRN Administration dizziness Montelukast Sodium 10 mg 05/24/21 21:00 Montelukast Sodium 10 Mg Tablet PO BEDTIME [facility] Naloxone HCl 4 mg 05/23/21 22:39 Naloxone Hcl Nasal 4 Mg [place] NOSTRILALT Q2M PRN opioid overdose Omeprazole 20 mg 05/24/21 09:00 05/24/21 10:14 Omeprazole 20 Mg Capsule.Dr PO 20 mg DAILY [facility] Administration Oxycodone HCl 5 mg 05/23/21 22:39 05/24/21 01:43 Oxycodone Hcl Immed Release 5 Mg Tablet PO 5 mg Q8H PRN Administration pain Pharmacy Consult 1 each 05/23/21 19:24 Consult Rx Perform Med Rec MISCELLANE ONCE PRN Consult order Prednisone 10 mg 05/24/21 09:00 05/24/21 10:14 Prednisone 10 Mg Tablet PO 10 mg DAILY [facility] Administration Quetiapine Fumarate 100 mg 05/23/21 22:45 05/23/21 22:55 Quetiapine Fumarate 100 Mg Tablet PO 100 mg BEDTIME [facility] Administration Sodium Chloride 3 ml 05/24/21 00:00 05/24/21 10:14 0.9 % Sodium Chloride Flush 3 Ml Syringe IVFLUSH 3 ml QSHIFT [facility] Administration Sucralfate 4 gm 05/24/21 09:00 05/24/21 10:13 Sucralfate 1 Gm Tablet PO 4 gm DAILY [facility] Administration Vitamin D 25 mcg 05/24/21 09:00 05/24/21 10:13 Cholecalciferol (Vitamin D3) 25 Mcg Tablet PO 25 mcg DAILY [facility] Administration Zolpidem Tartrate 5 mg 05/23/21 22:39 05/23/21 22:58 Zolpidem Tartrate 5 Mg Tablet PO 5 mg BEDTIME PRN Administration Insomnia Labs CBC & Chem 7: 05/25/21 05:55 05/25/21 05:55 Labs: Laboratory Results - last 24 hr 05/23/21 05/23/21 05/23/21 15:06 20:10 20:10 WBC RBC Hgb Hct MCV MCH MCHC RDW Plt Count MPV Immature Gran % (Auto) Neut % (Auto) Lymph % (Auto) [place] % (Auto) Eos % (Auto) Baso % (Auto) Lymph # (Auto) [place] # (Auto) Eos # (Auto) Baso # (Auto) Abs Immat Gran (auto) Absolute Neuts (auto) Absolute Nucleated RBC Nucleated RBC % (auto) Sodium Potassium Chloride Carbon Dioxide Anion Gap BUN Creatinine Estim Creat Clear Calc Estimated GFR POC Glucose 82 Random Glucose Calcium Troponin I High Sens 6.0 D COVID-19 ([facility]) Negative COVID-19 Clin Com See Note 05/23/21 05/23/21 05/24/21 21:07 21:56 00:09 WBC RBC Hgb Hct MCV MCH MCHC RDW Plt Count MPV Immature Gran % (Auto) Neut % (Auto) Lymph % (Auto) [place] % (Auto) Eos % (Auto) Baso % (Auto) Lymph # (Auto) [place] # (Auto) Eos # (Auto) Baso # (Auto) Abs Immat Gran (auto) Absolute Neuts (auto) Absolute Nucleated RBC Nucleated RBC % (auto) Sodium Potassium Chloride Carbon Dioxide Anion Gap BUN Creatinine Estim Creat Clear Calc Estimated GFR POC Glucose 82 81 Random Glucose Calcium Troponin I High Sens 4.6 COVID-19 ([facility]) COVID-19 Clin Com 05/24/21 05/24/21 05/24/21 02:23 06:00 06:00 WBC 10.6 RBC 4.23 Hgb 13.1 Hct 41.2 MCV 97.4 MCH 31.0 MCHC 31.8 RDW 13.8 Plt Count 243 MPV 8.4 L Immature Gran % (Auto) 3.6 H Neut % (Auto) 69.7 Lymph % (Auto) 18.5 L [place] % (Auto) 7.0 Eos % (Auto) 1.0 Baso % (Auto) 0.2 Lymph # (Auto) 2.0 [place] # (Auto) 0.7 Eos # (Auto) 0.1 Baso # (Auto) 0.0 Abs Immat Gran (auto) 0.38 H Absolute Neuts (auto) 7.4 Absolute Nucleated RBC 0.000 Nucleated RBC % (auto) 0.0 Sodium 140 Potassium 4.9 Chloride 104 Carbon Dioxide 28 Anion Gap 13 BUN 17 H Creatinine 1.27 Estim Creat Clear Calc 50.2 Estimated GFR 44 POC Glucose 81 Random Glucose 69 Calcium 9.9 Troponin I High Sens COVID-19 ([facility]) COVID-19 Clin Com 05/24/21 05/24/21 07:11 12:00 WBC RBC Hgb Hct MCV MCH MCHC RDW Plt Count MPV Immature Gran % (Auto) Neut % (Auto) Lymph % (Auto) [place] % (Auto) Eos % (Auto) Baso % (Auto) Lymph # (Auto) [place] # (Auto) Eos # (Auto) Baso # (Auto) Abs Immat Gran (auto) Absolute Neuts (auto) Absolute Nucleated RBC Nucleated RBC % (auto) Sodium Potassium Chloride Carbon Dioxide Anion Gap BUN Creatinine Estim Creat Clear Calc Estimated GFR POC Glucose 81 81 Random Glucose Calcium Troponin I High Sens COVID-19 ([facility]) COVID-19 Clin Com Assessment and Plan (1) Dizziness: Status: Acute Assessment and Plan: 51yo F with DM2, HTN, asthma admitted for abdominal pain , migrane vs dizziness. 1. dizziness: recent So far cardiac testing including echocardiogram and stress testing have been unremarkable in tele seems fine trops negx2 given meclizine seen by neuro:Differential diagnosis would include status migrainosus, a viral illness, or a venous sinus pathology brain. Because of previous history of pulmonary embolism I would suggest obtaining an MRI and MRV of brain. Otherwise treatment is like treatment of severe migraine. brain mri/mrv added Neuro recommended-added sumatriptan, may need to add NSAIDs if headache continue. 2.abd pain/dirrahae :? unclear etiology abd ct -seems no colitis has epigastric soarness , will add stool gentle hydration-LR 3. HTN- hold losartan , start after checking bmp in am ? slightly prerenal due to dirrahae 4. hx PE: continue apixaban 5. DM2- correction-dose lispro. 6. morbid obesity- s/p bariatric surgery 7. mood disorder- escitalopram, gabapentin, quetiapine, doses adjusted -please see h&P. will add psych eval for for probable component of dizziness with medication. 8. asthma:continue albuterol; continue montelukast VTE ppx- apixaban Quality Stroke Does the patient have a stroke diagnosis?: No VTE Prior VTE?: No VTE Risk Level:: Medical - moderate - high VTE Device Contraindication: N/A - Device Ordered VTE Drug Contraindication: Treatment Not Indicated
[2021-05-24] MEDS: ondansetron HCL 4 MG/2 ML VIAL IVPUSH (15:55)
[2021-05-24] MEDS: Lactated Ringers 1,000 ML 80 ML IVCONT (15:56)
[2021-05-24] MEDS: Benzonatate 100 MG CAPSULE 200 MG PO (15:58)
[2021-05-24 16:41] LABS: Glucose, Whole Blood 96 mg/dL (60-115)
[2021-05-24 20:18] LABS: Glucose, Whole Blood 79 mg/dL (60-115)
[2021-05-24] MEDS: Zolpidem Tartrate 5 MG TABLET PO (20:20)
[2021-05-24] MEDS: Montelukast Sodium 10 MG TABLET PO (20:20)
[2021-05-24] MEDS: QUEtiapine Fumarate 100 MG TABLET PO (20:20)
[2021-05-25] VITALS (8 sets, daily range): BP systolic 113–135; BP diastolic 59–70; PULSE 62–75; RESP 16–18; TEMP 36.2–37.2; O2SAT 92–97
[2021-05-25] MEDS: ondansetron HCL 4 MG/2 ML VIAL IVPUSH ×2 (02:56→08:42)
[2021-05-25] MEDS: LORazepam 0.5 MG TABLET 0.25 MG PO (02:56)
[2021-05-25] MEDS: Lactated Ringers 1,000 ML 80 ML IVCONT (03:49)
[2021-05-25 03:53] LABS: Glucose, Whole Blood 80 mg/dL (60-115)
[2021-05-25 07:06] LABS: Hematocrit 42.2 % (37-47); Hemoglobin 13.6 g/dl (12.0-16.0); Mean Corpuscular HGB Conc 32.2 g/dl (31.0-35.0); Mean Corpuscular Hemoglobin 31.1 pg (27.0-33.0); Mean Corpuscular Volume 96.6 fL (80-98); Mean Platelet Volume 8.7 fL (9.4-12.3); Platelet Count 255 X10*3/uL (160-400); Red Blood Count 4.37 X10*6/uL (4.20-5.50); Red Cell Distribution Width 13.8 % (11.0-16.0); White Blood Count 10.5 X10*3/uL (4.8-10.8)
[2021-05-25 07:33] LABS: Anion Gap 12 (12-20); Blood Urea Nitrogen 14 mg/dL (9-16); Calcium 9.5 mg/dL (8.4-10.2); Carbon Dioxide 29 mmol/L (22-29); Chloride 103 mmol/L (96-108); Creatinine Clr Calc Pharmacy 53.2; Estimated Glomerular Filt Rate 47; Glucose Random 71 mg/dL (60-115); Potassium 4.2 mmol/L (3.3-5.1); Sodium 140 mmol/L (135-145)
[2021-05-25] MEDS: Fluticasone/Vilanterol 200/25 BLST.W.DEV 1 PUFF INHALE (07:45)
[2021-05-25 07:54] LABS: Glucose, Whole Blood 83 mg/dL (60-115)
[2021-05-25] MEDS: oxyCODONE HCl Immed Release 5 MG TABLET PO ×2 (08:37→17:07)
[2021-05-25] MEDS: Cyanocobalamin (Vitamin B-12) 1,000 MCG TABLET 1000 MCG PO (08:37)
[2021-05-25] MEDS: Apixaban 5 MG TABLET PO ×2 (08:37→21:06)
[2021-05-25] MEDS: Sucralfate 1 GM TABLET 4 GM PO (08:37)
[2021-05-25] MEDS: Cholecalciferol (Vitamin D3) 25 MCG TABLET PO (08:37)
[2021-05-25] MEDS: Gabapentin 300 MG CAPSULE PO ×2 (08:38→21:12)
[2021-05-25] MEDS: Losartan Potassium 50 MG TABLET 100 MG PO (08:38)
[2021-05-25] MEDS: Omeprazole 20 MG CAPSULE.DR PO ×2 (08:38→17:08)
[2021-05-25] MEDS: predniSONE 10 MG TABLET PO (08:38)
[2021-05-25] MEDS: Benzonatate 100 MG CAPSULE 200 MG PO ×2 (08:41→17:08)
[2021-05-25] MEDS: 0.9 % Sodium Chloride Flush 3 ML SYRINGE IVFLUSH ×3 (08:46→21:06)
--- NOTE | 2021-05-25 10:45 | HO.PM.IMPN ---
Subjective Subjective Date of Service: 05/25/21 Interval History: seen and examined this AM with site interpreter services staff respiratory therapist bedside patient with multiple complaints -- nausea, abdominal pain, headaches, diarrhea, vomiting, etc d/w her about going to rehab, which she declines Physical Exam Vital Signs: Vital Signs: Last Vital Signs Temp 97.2 F 05/25/21 08:00 Pulse 63 05/25/21 08:38 Resp 18 05/25/21 08:00 BP 113/61 05/25/21 08:38 Pulse Ox 94 05/25/21 08:00 Body Mass Index 42.5 Const: Other: General - no acute distress, appears uncomfortable Cardiovascular - regular rate and rhythm, S1-S2 Lungs - normal respiratory effort, clear to auscultation bilaterally, no wheezing Abdomen - soft, nontender, no rebound or guarding Extremities - no edema bilaterally Neuro - awake and alert, no focal deficits Objective Data Current Medications Generic Name Dose Route Start Last Admin Trade Name Freq PRN Reason Stop Dose Admin Acetaminophen 650 mg 05/23/21 19:31 05/24/21 04:35 Acetaminophen 325 Mg Tablet PO 650 mg Q6H PRN Administration Pain, Mild (Pain Scale 1-3) Albuterol Sulfate 1 puff 05/23/21 22:39 Albuterol Sulfate 90 Mcg 8 Gm Inhaler INHALE QID PRN shortness of breath or wheezing Apixaban 5 mg 05/24/21 09:00 05/25/21 08:37 Apixaban 5 Mg Tablet PO 5 mg BID OMERO Administration Benzonatate 200 mg 05/23/21 22:39 05/25/21 08:41 Benzonatate 100 Mg Capsule PO 200 mg TID PRN Administration cough Cyanocobalamin 1,000 mcg 05/24/21 09:00 05/25/21 08:37 Cyanocobalamin (Vitamin B-12) 1,000 Mcg Tablet PO 1,000 mcg DAILY OMERO Administration Fluticasone/Vilanterol 1 puff 05/24/21 09:00 05/25/21 07:45 Fluticasone/Vilanterol 200/25 Blst.W.Dev INHALE 1 puff DAILY OMERO Administration Gabapentin 300 mg 05/24/21 09:00 05/25/21 08:38 Gabapentin 300 Mg Capsule PO 300 mg BID OMERO Administration Insulin Human Lispro 0 unit 05/23/21 21:00 05/25/21 08:02 Insulin Lispro 100 Unit/Ml 3 Ml Vial SUBCUT Not Given QIDACHS [facility] Protocol Lidocaine 1 patch 05/23/21 22:49 Lidocaine 4 % Patch Adh..Patch TRANSDERMA DAILY PRN Back Pain Lorazepam 0.25 mg 05/23/21 22:39 05/25/21 02:56 Lorazepam 0.5 Mg Tablet PO 0.25 mg DAILY PRN Administration anxiety Losartan Potassium 100 mg 05/24/21 09:00 05/25/21 08:38 Losartan Potassium 50 Mg Tablet PO 100 mg DAILY OMERO Administration Protocol Meclizine HCl 25 mg 05/23/21 19:31 05/24/21 04:35 Meclizine Hcl 25 Mg Tablet PO 25 mg Q6H PRN Administration dizziness Montelukast Sodium 10 mg 05/24/21 21:00 05/24/21 20:20 Montelukast Sodium 10 Mg Tablet PO 10 mg BEDTIME OMERO Administration Naloxone HCl 4 mg 05/23/21 22:39 Naloxone Hcl Nasal 4 Mg [place] NOSTRILALT Q2M PRN opioid overdose Omeprazole 20 mg 05/24/21 09:00 05/25/21 08:38 Omeprazole 20 Mg Capsule.Dr PO 20 mg DAILY OMERO Administration Ondansetron HCl 4 mg 05/24/21 15:43 05/25/21 08:42 Ondansetron Hcl 4 Mg/2 Ml Vial IVPUSH 4 mg Q6H PRN Administration Nausea Oxycodone HCl 5 mg 05/23/21 22:39 05/25/21 08:37 Oxycodone Hcl Immed Release 5 Mg Tablet PO 5 mg Q8H PRN Administration pain Pharmacy Consult 1 each 05/23/21 19:24 Consult Rx Perform Med Rec MISCELLANE ONCE PRN Consult order Prednisone 10 mg 05/24/21 09:00 05/25/21 08:38 Prednisone 10 Mg Tablet PO 10 mg DAILY OMERO Administration Quetiapine Fumarate 100 mg 05/23/21 22:45 05/24/21 20:20 Quetiapine Fumarate 100 Mg Tablet PO 100 mg BEDTIME OMERO Administration Sodium Chloride 3 ml 05/24/21 00:00 05/25/21 08:46 0.9 % Sodium Chloride Flush 3 Ml Syringe IVFLUSH 3 ml QSHIFT OMERO Administration Sucralfate 4 gm 05/24/21 09:00 05/25/21 08:37 Sucralfate 1 Gm Tablet PO 4 gm DAILY OMERO Administration Vitamin D 25 mcg 05/24/21 09:00 05/25/21 08:37 Cholecalciferol (Vitamin D3) 25 Mcg Tablet PO 25 mcg DAILY OMERO Administration Zolpidem Tartrate 5 mg 05/23/21 22:39 05/24/21 20:20 Zolpidem Tartrate 5 Mg Tablet PO 5 mg BEDTIME PRN Administration Insomnia Labs CBC & Chem 7: 05/25/21 05:55 05/25/21 05:55 Labs: Laboratory Results - last 24 hr 05/24/21 05/24/21 05/24/21 12:00 16:35 20:07 WBC RBC Hgb Hct MCV MCH MCHC RDW Plt Count MPV Absolute Nucleated RBC Nucleated RBC % (auto) Sodium Potassium Chloride Carbon Dioxide Anion Gap BUN Creatinine Estim Creat Clear Calc Estimated GFR POC Glucose 81 96 79 Random Glucose Calcium 05/25/21 05/25/21 05/25/21 03:50 05:55 05:55 WBC 10.5 RBC 4.37 Hgb 13.6 Hct 42.2 MCV 96.6 MCH 31.1 MCHC 32.2 RDW 13.8 Plt Count 255 MPV 8.7 L Absolute Nucleated RBC 0.000 Nucleated RBC % (auto) 0.0 Sodium 140 Potassium 4.2 Chloride 103 Carbon Dioxide 29 Anion Gap 12 BUN 14 Creatinine 1.20 Estim Creat Clear Calc 53.2 Estimated GFR 47 POC Glucose 80 Random Glucose 71 Calcium 9.5 05/25/21 07:49 WBC RBC Hgb Hct MCV MCH MCHC RDW Plt Count MPV Absolute Nucleated RBC Nucleated RBC % (auto) Sodium Potassium Chloride Carbon Dioxide Anion Gap BUN Creatinine Estim Creat Clear Calc Estimated GFR POC Glucose 83 Random Glucose Calcium Quality Stroke Does the patient have a stroke diagnosis?: No VTE Prior VTE?: No VTE Risk Level:: Medical - moderate - high VTE Device Contraindication: N/A - Device Ordered VTE Drug Contraindication: Treatment Not Indicated Assessment and Plan (1) Headache: Status: Acute (2) Vomiting: Status: Acute (3) Dizziness: Status: Acute Assessment and Plan: This is a 51 yo F with multiple medical problems who presented to the hospital with dizziness. 1. Dizziness/headache has had neurological work up this admission including MRV/MRI had [facility] in Nov that was negative tele showing nothing of concern thus far Neurology consulted -- possible related to migranes. Will give trial of sumtriptan 2. Abdominal pain, n/v/d possible gastritis CT scan with no acute findings continue PPI - will increase to bid for a few days 3. Asthma (recent exacerbation - d/c on 05/15) continue prednisone 10 mg daily for 2 more days (was supposed to be on a prolonged taper, but at this point, shes on 10mg and without respiratory symptoms, so will cntinue 10mg daily) 4. Mood on multiple meds psych consulted yesterday to adjust meds -- will await formal consult, but probably best if major changes made by outpatient team nontheless, shes on quiet a few meds which may be contributing to all her symptoms 5. DM sliding scale 6. PE eliquis 7. HTN continue cozaar (SCr stable, held 05/24 out of concern for mild pre-renal azotemia Full COde DVT pptx, Eliquis Dispo: home vs str
[2021-05-25] MEDS: SUMAtriptan succinate 50 MG TABLET PO (10:58)
[2021-05-25 11:27] LABS: Glucose, Whole Blood 123 mg/dL (60-115)
--- NOTE | 2021-05-25 13:10 | P.CNPS_ITS ---
Assessment & Plan Assessment & Plan (1) Depression: Status: Acute Code(s): F32.9 - Major depressive disorder, single episode, unspecified Recommendations: Potential seroquel related dizziness- had it at higher doses which is why it was reduced as an outpatient. Would DC seroquel and replace with abilify 5mg daily. Would continue with lower ambien dose ie 5mg at bedtime. Would not restart lunesta. Gabapentin is for medical reasons, therefore no recs ref this. Greater than 50% of the session was spent on counseling and/or coordination of care History of Present Illness Date of Service: 05/25/2021 Chief Complaint: dizziness HPI Narrative: Observation for dizziness and nausea. Neuro and medical input noted. Unremarkable work up. Asked to eval ref medications- seroquel 200mg, gabapentin 600mg and ambien 10 mg and lunesta. Met with pt with aerial photograph interpreter present. Clarified that gabapentin is being prescribed for medical reasons ? neuropathy. Seroqule has been helpful for depression and psychosis. Reports previously being on 400mg but had dizziness and therefore lowered. No psychosis or depression in quite a while . Mood is stable along with sleep, energy and appetite. No SI. No HI. No agitation. No psychosis. Open to meds being lowered/changed and felt positive about that. Discussed abilify replacing seroquel- risks and benefits discussed. Aware of akathasia potential. Discussed metabolic risks and they are lower than seroquel. Happy that Ambien will be 5mg. Past Psychiatric History: Dx depression with psychosis. Last inpt episode 12 years ago. Seroquel and ambien for years. 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 Positive relationship. Previously worked as a [employer] Substance History: None Diagnostics Vital Signs (24Hr): Vital Signs - 24 hr 05/24/21 15:40 05/24/21 19:48 05/24/21 23:17 Temperature 97.4 F 98.5 F Pulse Rate 65 56 62 Respiratory Rate 14 18 16 Blood Pressure 142/67 H 141/69 H Pulse Oximetry 96 98 05/25/21 03:47 05/25/21 08:00 05/25/21 08:38 Temperature 98.9 F 97.2 F Pulse Rate 63 63 63 Respiratory Rate 16 18 Blood Pressure 129/61 113/61 113/61 Pulse Oximetry 92 94 Body Mass Index 42.5 Labs Results: 05/25/21 05:55 05/25/21 05:55 Labs: Laboratory Results - last 48 hr 05/23/21 05/23/21 05/23/21 15:06 20:10 20:10 WBC RBC Hgb Hct MCV MCH MCHC RDW Plt Count MPV Immature Gran % (Auto) Neut % (Auto) Lymph % (Auto) Schley % (Auto) Eos % (Auto) Baso % (Auto) Lymph # (Auto) Schley # (Auto) Eos # (Auto) Baso # (Auto) Abs Immat Gran (auto) Absolute Neuts (auto) Absolute Nucleated RBC Nucleated RBC % (auto) Sodium Potassium Chloride Carbon Dioxide Anion Gap BUN Creatinine Estim Creat Clear Calc Estimated GFR POC Glucose 82 Random Glucose Calcium Troponin I High Sens 6.0 D COVID-19 ([facility]) Negative COVID-19 Clin Com See Note 05/23/21 05/23/21 05/24/21 21:07 21:56 00:09 WBC RBC Hgb Hct MCV MCH MCHC RDW Plt Count MPV Immature Gran % (Auto) Neut % (Auto) Lymph % (Auto) Schley % (Auto) Eos % (Auto) Baso % (Auto) Lymph # (Auto) Schley # (Auto) Eos # (Auto) Baso # (Auto) Abs Immat Gran (auto) Absolute Neuts (auto) Absolute Nucleated RBC Nucleated RBC % (auto) Sodium Potassium Chloride Carbon Dioxide Anion Gap BUN Creatinine Estim Creat Clear Calc Estimated GFR POC Glucose 82 81 Random Glucose Calcium Troponin I High Sens 4.6 COVID-19 ([facility]) COVID-19 [employer] 05/24/21 05/24/21 05/24/21 02:23 06:00 06:00 WBC 10.6 RBC 4.23 Hgb 13.1 Hct 41.2 MCV 97.4 MCH 31.0 MCHC 31.8 RDW 13.8 Plt Count 243 MPV 8.4 L Immature Gran % (Auto) 3.6 H Neut % (Auto) 69.7 Lymph % (Auto) 18.5 L Schley % (Auto) 7.0 Eos % (Auto) 1.0 Baso % (Auto) 0.2 Lymph # (Auto) 2.0 Schley # (Auto) 0.7 Eos # (Auto) 0.1 Baso # (Auto) 0.0 Abs Immat Gran (auto) 0.38 H Absolute Neuts (auto) 7.4 Absolute Nucleated RBC 0.000 Nucleated RBC % (auto) 0.0 Sodium 140 Potassium 4.9 Chloride 104 Carbon Dioxide 28 Anion Gap 13 BUN 17 H Creatinine 1.27 Estim Creat Clear Calc 50.2 Estimated GFR 44 POC Glucose 81 Random Glucose 69 Calcium 9.9 Troponin I High Sens COVID-19 ([facility]) COVID-19 [employer] 05/24/21 05/24/21 05/24/21 07:11 12:00 16:35 WBC RBC Hgb Hct MCV MCH MCHC RDW Plt Count MPV Immature Gran % (Auto) Neut % (Auto) Lymph % (Auto) Schley % (Auto) Eos % (Auto) Baso % (Auto) Lymph # (Auto) Schley # (Auto) Eos # (Auto) Baso # (Auto) Abs Immat Gran (auto) Absolute Neuts (auto) Absolute Nucleated RBC Nucleated RBC % (auto) Sodium Potassium Chloride Carbon Dioxide Anion Gap BUN Creatinine Estim Creat Clear Calc Estimated GFR POC Glucose 81 81 96 Random Glucose Calcium Troponin I High Sens COVID-19 ([facility]) COVID-19 [employer] 05/24/21 05/25/21 05/25/21 20:07 03:50 05:55 WBC 10.5 RBC 4.37 Hgb 13.6 Hct 42.2 MCV 96.6 MCH 31.1 MCHC 32.2 RDW 13.8 Plt Count 255 MPV 8.7 L Immature Gran % (Auto) Neut % (Auto) Lymph % (Auto) Schley % (Auto) Eos % (Auto) Baso % (Auto) Lymph # (Auto) Schley # (Auto) Eos # (Auto) Baso # (Auto) Abs Immat Gran (auto) Absolute Neuts (auto) Absolute Nucleated RBC 0.000 Nucleated RBC % (auto) 0.0 Sodium Potassium Chloride Carbon Dioxide Anion Gap BUN Creatinine Estim Creat Clear Calc Estimated GFR POC Glucose 79 80 Random Glucose Calcium Troponin I High Sens COVID-19 ([facility]) COVID-19 Clin Com 05/25/21 05/25/21 05/25/21 05:55 07:49 11:17 WBC RBC Hgb Hct MCV MCH MCHC RDW Plt Count MPV Immature Gran % (Auto) Neut % (Auto) Lymph % (Auto) Schley % (Auto) Eos % (Auto) Baso % (Auto) Lymph # (Auto) Schley # (Auto) Eos # (Auto) Baso # (Auto) Abs Immat Gran (auto) Absolute Neuts (auto) Absolute Nucleated RBC Nucleated RBC % (auto) Sodium 140 Potassium 4.2 Chloride 103 Carbon Dioxide 29 Anion Gap 12 BUN 14 Creatinine 1.20 Estim Creat Clear Calc 53.2 Estimated GFR 47 POC Glucose 83 123 H Random Glucose 71 Calcium 9.5 Troponin I High Sens COVID-19 ([facility]) COVID-19 Clin Com Imaging Radiology Impressions: ITS Impressions Abdomen/Pelvis CT 05/23/21 10:40 IMPRESSION: Fatty liver. Postsurgical changes from gastric bypass. Diverticulosis. Bilateral renal cysts. Left femoral head AVN. Head CT 05/23/21 10:40 IMPRESSION: No acute intracranial findings. Brain MRI 05/24/21 11:53 IMPRESSION: - There are stable nonspecific T2 signal changes within the bifrontal white matter. - There is no cerebral venous thrombosis. Head/Brain Mag Res Venography 05/24/21 11:53 IMPRESSION: - There are stable nonspecific T2 signal changes within the bifrontal white matter. - There is no cerebral venous thrombosis. Mental Status Exam Mental Status Exam Narrative: In bed. hospital clothing. Pleasant. No cognitive issues. Some anxiety. Denied depression. No SI, HI, agitation or psychosis. Insight and judgment good Medications Medications Current Medications Generic Name Dose Route Start Last Admin Trade Name Freq PRN Reason Stop Dose Admin Acetaminophen 650 mg 05/23/21 19:31 05/24/21 04:35 Acetaminophen 325 Mg Tablet PO 650 mg Q6H PRN Administration Pain, Mild (Pain Scale 1-3) Albuterol Sulfate 1 puff 05/23/21 22:39 Albuterol Sulfate 90 Mcg 8 Gm Inhaler INHALE QID PRN shortness of breath or wheezing Apixaban 5 mg 05/24/21 09:00 05/25/21 08:37 Apixaban 5 Mg Tablet PO 5 mg BID OMERO Administration Benzonatate 200 mg 05/23/21 22:39 05/25/21 08:41 Benzonatate 100 Mg Capsule PO 200 mg TID PRN Administration cough Cyanocobalamin 1,000 mcg 05/24/21 09:00 05/25/21 08:37 Cyanocobalamin (Vitamin B-12) 1,000 Mcg Tablet PO 1,000 mcg DAILY OMERO Administration Fluticasone/Vilanterol 1 puff 05/24/21 09:00 05/25/21 07:45 Fluticasone/Vilanterol 200/25 Blst.W.Dev INHALE 1 puff DAILY OMERO Administration Gabapentin 300 mg 05/24/21 09:00 05/25/21 08:38 Gabapentin 300 Mg Capsule PO 300 mg BID OMERO Administration Insulin Human Lispro 0 unit 05/23/21 21:00 05/25/21 11:35 Insulin Lispro 100 Unit/Ml 3 Ml Vial SUBCUT Not Given QIDACHS [facility] Protocol Lidocaine 1 patch 05/23/21 22:49 Lidocaine 4 % Patch Adh..Patch TRANSDERMA DAILY PRN Back Pain Lorazepam 0.25 mg 05/23/21 22:39 05/25/21 02:56 Lorazepam 0.5 Mg Tablet PO 0.25 mg DAILY PRN Administration anxiety Losartan Potassium 100 mg 05/24/21 09:00 05/25/21 08:38 Losartan Potassium 50 Mg Tablet PO 100 mg DAILY OMERO Administration Protocol Meclizine HCl 25 mg 05/23/21 19:31 05/24/21 04:35 Meclizine Hcl 25 Mg Tablet PO 25 mg Q6H PRN Administration dizziness Montelukast Sodium 10 mg 05/24/21 21:00 05/24/21 20:20 Montelukast Sodium 10 Mg Tablet PO 10 mg BEDTIME OMERO Administration Naloxone HCl 4 mg 05/23/21 22:39 Naloxone Hcl Nasal 4 Mg [place] NOSTRILALT Q2M PRN opioid overdose Omeprazole 20 mg 05/25/21 16:30 Omeprazole 20 Mg Capsule.Dr PO BID@0630,1630 [facility] Ondansetron HCl 4 mg 05/24/21 15:43 05/25/21 08:42 Ondansetron Hcl 4 Mg/2 Ml Vial IVPUSH 4 mg Q6H PRN Administration Nausea Oxycodone HCl 5 mg 05/23/21 22:39 05/25/21 08:37 Oxycodone Hcl Immed Release 5 Mg Tablet PO 5 mg Q8H PRN Administration pain Pharmacy Consult 1 each 05/23/21 19:24 Consult Rx Perform Med Rec MISCELLANE ONCE PRN Consult order Prednisone 10 mg 05/24/21 09:00 05/25/21 08:38 Prednisone 10 Mg Tablet PO 10 mg DAILY OMERO Administration Quetiapine Fumarate 100 mg 05/23/21 22:45 05/24/21 20:20 Quetiapine Fumarate 100 Mg Tablet PO 100 mg BEDTIME OMERO Administration Sodium Chloride 3 ml 05/24/21 00:00 05/25/21 08:46 0.9 % Sodium Chloride Flush 3 Ml Syringe IVFLUSH 3 ml QSHIFT OMERO Administration Sucralfate 4 gm 05/24/21 09:00 05/25/21 08:37 Sucralfate 1 Gm Tablet PO 4 gm DAILY OMERO Administration Vitamin D 25 mcg 05/24/21 09:00 05/25/21 08:37 Cholecalciferol (Vitamin D3) 25 Mcg Tablet PO 25 mcg DAILY OMERO Administration Zolpidem Tartrate 5 mg 05/23/21 22:39 05/24/21 20:20 Zolpidem Tartrate 5 Mg Tablet PO 5 mg BEDTIME PRN Administration Insomnia Allergies Allergies Allergy/AdvReac Type Severity Reaction Status Date / Time No Known Allergies Allergy Verified 05/12/21 12:25
[2021-05-25 16:10] LABS: Glucose, Whole Blood 124 mg/dL (60-115)
[2021-05-25 20:26] LABS: Glucose, Whole Blood 97 mg/dL (60-115)
[2021-05-25] MEDS: Zolpidem Tartrate 5 MG TABLET PO (21:06)
[2021-05-25] MEDS: ARIPiprazole 5 MG TABLET PO (21:06)
[2021-05-25] MEDS: Acetaminophen 325 MG TABLET 650 MG PO (21:11)
[2021-05-25] MEDS: Montelukast Sodium 10 MG TABLET PO (21:12)
[2021-05-26] MEDS: oxyCODONE HCl Immed Release 5 MG TABLET PO (02:10)
[2021-05-26 03:16] VITALS: BP 118/58; PULSE 57; RESP 18; TEMP 36.8; O2SAT 94
[2021-05-26] MEDS: Benzonatate 100 MG CAPSULE 200 MG PO (06:36)
[2021-05-26] MEDS: Omeprazole 20 MG CAPSULE.DR PO (06:36)
[2021-05-26] MEDS: Acetaminophen 325 MG TABLET 650 MG PO (06:38)
[2021-05-26 07:27] LABS: Glucose, Whole Blood 80 mg/dL (60-115)
[2021-05-26] MEDS: Fluticasone/Vilanterol 200/25 BLST.W.DEV 1 PUFF INHALE (07:46)
[2021-05-26 07:47] VITALS: PULSE 71; O2SAT 96
[2021-05-26 08:00] VITALS: BP 115/58; PULSE 72; RESP 19; TEMP 36.8; O2SAT 95
--- NOTE | 2021-05-26 10:03 | PM.DS ---
DS: Providers Provider Date of Service: 05/26/21 Date of admission: 05/23/21 19:31 Primary care physician: Unknown Physician Consults: 05/23/21 19:31 Consult to Neurology Routine Consulting Provider: [facility] Reason for consultation: dizziness 05/24/21 14:51 Consult to Psychiatry Routine Consulting Provider: Deng Kirkpatrick Reason for consultation: DIZZINESS-ON MULTIPLE PSYCH MEDS, NEED ADJUSTMENT DS: Diagnosis Discharge Diagnosis (1) Migraine with acute onset aura: Status: Acute (2) Dizziness: Status: Acute (3) Depression: Status: Acute (4) Morbid obesity: Status: Acute DS: Medications Discharge Medications Home Medications: Home Medications Medication Instructions Recorded Confirmed montelukast 10 mg PO BEDTIME 08/02/20 05/23/21 apixaban 5 mg tablet 5 mg PO BID 11/05/20 05/23/21 cyanocobalamin (vitamin B-12) 1,000 mcg PO DAILY 11/05/20 05/23/21 1,000 mcg tablet hydroxyzine HCl 1 tab PO TID PRN 12/12/20 05/23/21 cholecalciferol (vitamin D3) 25 25 mcg PO DAILY 03/19/21 05/23/21 mcg (1,000 unit) tablet losartan 1 tab PO DAILY 05/12/21 05/23/21 eszopiclone 1 tab PO BEDTIME 05/23/21 05/23/21 lidocaine [Lidoderm] 1 patch TOPICAL DAILY PRN 05/23/21 05/23/21 lorazepam 0.5 tab PO DAILY PRN 05/23/21 05/23/21 prednisone 10 mg PO DAILY 05/23/21 05/23/21 Previous Rx's Medication Instructions Recorded albuterol sulfate 1 inh INHALATION QID PRN #18 g 10/13/20 omeprazole 20 mg capsule,delayed 20 mg PO DAILY 30 Days #30 cap 12/02/20 release sucralfate 1 gram tablet 4 g PO DAILY 30 Days #120 tab 02/07/21 benzonatate 200 mg capsule 200 mg PO TID PRN 30 Days #60 cap 03/19/21 budesonide-formoterol HFA 160 2 puff INHALATION BID 30 Days 03/19/21 mcg-4.5 mcg/actuation aerosol #10.2 g inhaler gabapentin 300 mg capsule 600 mg PO BID 30 Days #120 cap 04/14/21 naloxone 4 mg/actuation nasal spray 4 mg INTRANASAL Q2M PRN #2 ea 05/09/21 oxycodone 5 mg tablet 5 mg PO Q8H PRN 30 Days #90 tab 05/09/21 ondansetron 4 mg PO TID PRN 5 Days #10 tab 05/23/21 aripiprazole [Abilify] 5 mg PO BEDTIME #30 tab 05/26/21 immune glob,gamm(IgG) 10 %-pro-IgA 40 g IV .monthly #400 ml 05/26/21 0 to 50 mcg/mL intravenous solution sumatriptan succinate 50 mg PO DAILY PRN #30 tab 05/26/21 zolpidem [Ambien] 5 mg PO BEDTIME PRN #30 tab 05/26/21 DS: Summary Hospital Course Hospital Course: Patient was admitted for refractory headache and dizziness. She was ruled out for a posterior circulation stroke with a negative MRI. Due to history of pulmonary embolism, there was concern for intracranial thrombosis and she subsequently underwent an MRV which was negative for clots. A diagnosis of migraine was entertained and she was treated with sumatriptan with improvement in her headache. In regards to her dizziness is was a longstanding issue and was felt secondary to her multiple medications, particularly her Seroquel. Psychiatry was consulted and recommended discontinuation of Seroquel ( which was already being tapered as an outpatient) and starting on Abilify 5 mg at bedtime. Additionally her in was decreased from 10 mg to 5 mg p.r.n. at bedtime. These measures, the patient's dizziness and headache improved. She will be discharged home with the above medications change. She is to follow up with her psychiatrist Time Spent with Patient Time attestation: Total time spent providing and/or coordinating discharge services: Discharge coordination time: Greater than 30 minutes Quality: Stroke Does the patient have a stroke diagnosis?: No Physical Exam Vital Signs: Vital Signs: Last Vital Signs Temp 98.2 F 05/26/21 08:00 Pulse 72 05/26/21 08:00 Resp 19 05/26/21 08:00 BP 115/58 L 05/26/21 08:00 Pulse Ox 95 05/26/21 08:00 Body Mass Index 42.5 Const: Other: General - no acute distress, appears without any acute distress Cardiovascular - regular rate and rhythm, S1-S2 Lungs - normal respiratory effort, clear to auscultation bilaterally, no wheezing Abdomen - soft, nontender, no rebound or guarding Extremities - no edema bilaterally Neuro - awake and alert, no focal deficits DS: Data Data Completed and Pending Labs on day of discharge: Laboratory Results - last 24 hr 05/25/21 05/25/21 05/25/21 11:17 16:05 20:19 POC Glucose 123 H 124 H 97 05/26/21 07:19 POC Glucose 80 Discharge Plan Discharge Patient Disposition: Home Health Service Referrals: Physician,Unknown [Primary Care Provider] - 2 days Discharge Medications: New ondansetron 4 mg tablet,disintegrating 4 mg PO TID PRN (Reason: nausea and vomiting) 5 Days Qty: 10 RF: 0 aripiprazole [Abilify] 5 mg Tablet 5 mg PO BEDTIME Qty: 30 RF: 0 sumatriptan succinate 50 mg tablet 50 mg PO DAILY PRN (Reason: migraine headache) Qty: 30 RF: 0 zolpidem [Ambien] 5 mg tablet 5 mg PO BEDTIME PRN (Reason: insomnia) Qty: 30 RF: 0 Continued sucralfate [Carafate] 1 gram tablet 4 g PO DAILY 30 Days Qty: 120 RF: 2 gabapentin [Neurontin] 300 mg capsule 600 mg PO BID 30 Days Qty: 120 RF: 11 immun glob G(IgG)-pro-IgA 0-50 [Privigen] 10 % solution 40 g IV .monthly Qty: 400 RF: 11 hydroxyzine HCl 25 mg tablet 1 tab PO TID PRN (Reason: Anxiety) RF: 0 lorazepam 0.5 mg tablet 0.5 tab PO DAILY PRN (Reason: anxiety) RF: 0 eszopiclone 3 mg tablet 1 tab PO BEDTIME RF: 0 prednisone 10 mg tablet 10 mg PO DAILY RF: 0 lidocaine [Lidoderm] 5 % adhesive patch,medicated 1 patch topical DAILY PRN (Reason: Back Pain) RF: 0 montelukast 10 mg tablet 10 mg PO BEDTIME RF: 0 albuterol sulfate 90 mcg/actuation HFA aerosol inhaler 1 inh inhalation QID PRN (Reason: shortness of breath or wheezing) Qty: 18 RF: 0 losartan 100 mg tablet 1 tab PO DAILY RF: 0 cholecalciferol (vitamin D3) 25 mcg (1,000 unit) tablet 25 mcg PO DAILY RF: 0 budesonide-formoterol [Symbicort] 160-4.5 mcg/actuation HFA aerosol inhaler 2 puff inhalation BID 30 Days Qty: 10.2 RF: 11 benzonatate 200 mg capsule 200 mg PO TID PRN (Reason: cough) 30 Days Qty: 60 RF: 3 cyanocobalamin (vitamin B-12) 1,000 mcg tablet 1,000 mcg PO DAILY RF: 0 apixaban 5 mg tablet 5 mg PO BID RF: 0 omeprazole 20 mg capsule,delayed release(DR/EC) 20 mg PO DAILY 30 Days Qty: 30 RF: 0 oxycodone 5 mg tablet 5 mg PO Q8H PRN (Reason: pain) 30 Days Qty: 90 RF: 0 Narcan 4 mg/actuation spray,non-aerosol 4 mg intranasal Q2M PRN (Reason: opioid overdose) Qty: 2 RF: 0 Discontinued quetiapine 200 mg tablet 1 tab PO BEDTIME RF: 0 zolpidem 10 mg tablet 1 tab PO BEDTIME PRN (Reason: Insomnia) RF: 0 Discharge Orders: Discharge Order (Routine); Ordered 05/26/21 Ordered By: Baltazar Tello Diet: advance to usual diet Activity on Discharge: As tolerated Stand Alone Forms: Patient Portal Discharge page Print Language: Romansh Care Plan Goals: To stay healthy and out of the hospital. Health Concerns: Dizziness/Headaches Plan of Treatment: You dizziness may be related to your medications. Seroquel has been stopped and instead Abilify 5mg daily has been started. You may use Sumatriptan for your headaches. You should follow up with your psychiatrist within the next 1-2 weeks. Assessment: 51 yo F admitted for headaches and dizzness. Headache felt to be possible migranes and dizziness related to medications. Patient Instructions: Migraine Headache (ED), Dizziness (ED)
--- NOTE | 2021-05-26 10:09 | MHC.CM.PN ---
pt dcd home no skilled services ordered by
[2021-05-26 10:13] VITALS: BP 115/58
[2021-05-26] MEDS: Losartan Potassium 50 MG TABLET 100 MG PO (10:13)
[2021-05-26] MEDS: Sucralfate 1 GM TABLET 4 GM PO (10:13)
[2021-05-26] MEDS: Cyanocobalamin (Vitamin B-12) 1,000 MCG TABLET 1000 MCG PO (10:13)
[2021-05-26] MEDS: Cholecalciferol (Vitamin D3) 25 MCG TABLET PO (10:13)
[2021-05-26] MEDS: Gabapentin 300 MG CAPSULE PO (10:13)
[2021-05-26] MEDS: Apixaban 5 MG TABLET PO (10:13)
[2021-05-26] MEDS: predniSONE 10 MG TABLET PO (10:13)
[2021-05-26] MEDS: 0.9 % Sodium Chloride Flush 3 ML SYRINGE IVFLUSH (10:13)
[2021-05-26] MEDS: SUMAtriptan succinate 50 MG TABLET PO (10:17)
== END 2021-05-26 09:30 | disposition home health service (06) ==
LOC: HO.ED 19:24 → HO.EDOVER 19:53 → HO.IMC 20:54
PROVIDERS: Emergency Medicine; Internal Medicine; Admitting Provider Hospitalist; Emergency Provider Emergency Medicine Emergency Medical Services; PCP Internal Medicine; Visit Provider Family Medicine
DX: G43.101 Migraine with aura, not intractable, with status migrainosus (principal); R11.10 Vomiting, unspecified; R42 Dizziness and giddiness; F32.9 Major depressive disorder, single episode, unspecified; E11.9 Type 2 diabetes mellitus without complications; I10 Essential (primary) hypertension; E66.01 Morbid (severe) obesity due to excess calories; K76.0 Fatty (change of) liver, not elsewhere classified; K57.90 Diverticulosis of intestine, part unspecified, without perforation or abscess without bleeding; N28.1 Cyst of kidney, acquired; Z68.41 Body mass index [BMI] 40.0-44.9, adult; Z20.822 Contact with and (suspected) exposure to COVID-19; Z98.84 Bariatric surgery status; Z90.49 Acquired absence of other specified parts of digestive tract; Z90.710 Acquired absence of both cervix and uterus; Z79.4 Long term (current) use of insulin; Z79.52 Long term (current) use of systemic steroids; Z79.899 Other long term (current) drug therapy
CPT/HCPCS: 36415; 70450; 70546; 70551; 74177; 80048; 80076; 82947; 83690; 84484; 85025; 85027; 87635; 93005; 96361; 96374; 96375; 96376; 99219; 99285; A9585; J1170; J1200; J1885; J2405; J2765

== ENCOUNTER 2021-06-02 11:05 | Outpatient (REF) | payer OTHER, SELFPAY | END 2021-06-02 11:06 | disposition home or self-care (01) | LOC: HO.MDS 11:05 | PROVIDERS: PCP Internal Medicine; Visit Provider Hospitalist | DX: D80.1 Nonfamilial hypogammaglobulinemia (principal) | CPT/HCPCS: 96365; 96366 ==

== ENCOUNTER 2021-06-05 08:50 | Outpatient (REF) | payer OTHER, SELFPAY | END 2021-06-05 08:51 | disposition home or self-care (01) | LOC: HO.LAB 08:50 | PROVIDERS: PCP Internal Medicine; Visit Provider Anesthesiology | DX: G89.4 Chronic pain syndrome (principal); G90.522 Complex regional pain syndrome I of left lower limb; M54.5 Low back pain; M47.816 Spondylosis without myelopathy or radiculopathy, lumbar region; Z79.891 Long term (current) use of opiate analgesic | CPT/HCPCS: 99212 ==

== ENCOUNTER 2021-06-26 13:14 | Outpatient (REF) | payer OTHER, SELFPAY ==
[2021-06-26 14:25] LABS: COVID-19 Test Negative (Negative)
== END 2021-06-26 13:15 | disposition home or self-care (01) ==
LOC: HO.LAB 13:14
PROVIDERS: PCP Internal Medicine; Visit Provider Internal Medicine
DX: Z20.822 Contact with and (suspected) exposure to COVID-19 (principal)
CPT/HCPCS: 36415; 87635; C9803

== ENCOUNTER → 2021-06-27 12:52 | Outpatient (BNVA) | payer OTHER, SELFPAY | PROVIDERS: PCP Internal Medicine; Visit Provider Hospitalist ==

== ENCOUNTER 2021-06-30 11:14 | Outpatient (REF) | payer OTHER, SELFPAY | END 2021-06-30 11:15 | disposition home or self-care (01) | LOC: HO.MDS 11:14 | PROVIDERS: PCP Internal Medicine; Visit Provider Hospitalist | DX: D80.1 Nonfamilial hypogammaglobulinemia (principal) | CPT/HCPCS: 96365; 96366 ==

== ENCOUNTER → 2021-07-03 08:35 | Outpatient (BNVA) | payer OTHER, SELFPAY | PROVIDERS: PCP Internal Medicine; Visit Provider Anesthesiology | DX: G90.522 Complex regional pain syndrome I of left lower limb (principal); M54.5 Low back pain; M47.816 Spondylosis without myelopathy or radiculopathy, lumbar region; G89.4 Chronic pain syndrome | CPT/HCPCS: 99212 ==

== ENCOUNTER 2021-07-15 06:25 | Outpatient (REF) | payer OTHER, SELFPAY ==
--- NOTE | ~2021-07-15 | FL_ITS ---
EXAMINATION: XR FLUOROSCOPY WITH IMAGES CLINICAL INFORMATION: G90.522 - Complex regional pain syndrome left lower extremity COMPARISON: MR lumbar spine 03/03/2021 TECHNIQUE: Fluoroscopy performed by pain management physician. Fluoroscopy time: 0.3 minutes DAP: 7.64 Gycm2 Images: 1 FINDINGS: There is a spinal needle overlying the outer aspect right L5 neural foramen. There is contrast seen in the nerve sheath with transforaminal epidural extension. No visible vascular communication. FL/FL guidance in treatment room IMPRESSION: Fluoroscopy for pain management procedures.
== END 2021-07-15 06:26 | disposition home or self-care (01) ==
LOC: HO.RADIR 06:25
PROVIDERS: Visit Provider Anesthesiology
DX: M54.5 Low back pain (principal); M51.37 Other intervertebral disc degeneration, lumbosacral region; G90.522 Complex regional pain syndrome I of left lower limb
CPT/HCPCS: 64483; J3300; Q9967

== ENCOUNTER → 2021-07-18 10:25 | Outpatient (BNVA) | payer OTHER, SELFPAY | PROVIDERS: PCP Internal Medicine; Visit Provider Nurse Practitioner | DX: K58.0 Irritable bowel syndrome with diarrhea (principal); K29.50 Unspecified chronic gastritis without bleeding; K90.89 Other intestinal malabsorption; R10.13 Epigastric pain; R11.2 Nausea with vomiting, unspecified; R19.7 Diarrhea, unspecified | CPT/HCPCS: 99212 ==

== ENCOUNTER 2021-07-28 10:44 | Outpatient (REF) | payer OTHER, SELFPAY | END 2021-07-28 10:45 | disposition home or self-care (01) | LOC: HO.MDS 10:44 | PROVIDERS: PCP Internal Medicine; Visit Provider Hospitalist | DX: D80.1 Nonfamilial hypogammaglobulinemia (principal) | CPT/HCPCS: 96365; 96366 ==

== ENCOUNTER 2021-08-06 11:17 | Outpatient (REF) | payer OTHER, SELFPAY ==
[2021-08-06 11:46] LABS: MANUAL DIFF FLAG NO
[2021-08-06 12:40] LABS: Basophils Percent Auto 0.4 % (0-2); Eosinophils Absolute Auto 0.3 X10*3/uL (0.0-0.4); Eosinophils Percent Auto 3.7 % (0-4); Hematocrit 44.7 % (37-47); Hemoglobin 14.3 g/dl (12.0-16.0); Imm Gran Abs Auto 0.02 X10*3/uL (0.00-0.03); Imm Gran Pct Auto 0.3 % (0.0-0.4); Lymphocytes Absolute Auto 1.6 X10*3/uL (1.2-4.9); Mean Corpuscular Hemoglobin 29.5 pg (27.0-33.0); Mean Corpuscular Volume 92.4 fL (80-98); Mean Platelet Volume 8.7 fL (9.4-12.3); Monocytes Absolute Auto 0.5 X10*3/uL (0.1-1.2); Monocytes Percent Auto 6.6 % (2-11); Platelet Count 298 X10*3/uL (160-400); Red Blood Count 4.84 X10*6/uL (4.20-5.50); Red Cell Distribution Width 13.4 % (11.0-16.0); White Blood Count 7.4 X10*3/uL (4.8-10.8)
[2021-08-06 13:06] LABS: Alanine Aminotransferase 22 U/L (0-31); Alkaline Phosphatase 86 U/L (39-117); Anion Gap 13 (12-20); Aspartate Amino Transferase 23 U/L (5-31); Bilirubin Total 0.4 mg/dL (0.0-1.0); Blood Urea Nitrogen 16 mg/dL (9-16); Carbon Dioxide 30 mmol/L (22-29); Chloride 101 mmol/L (96-108); Cholesterol 204 mg/dL; Estimated Glomerular Filt Rate 53; Glucose Random 87 mg/dL (60-115); HDL Cholesterol 93 mg/dL; LDL Cholesterol Calculated 82 mg/dl; Sodium 139 mmol/L (135-145); Total Protein 7.1 g/dL (6.5-8.0); Triglycerides 147 mg/dL
[2021-08-06 13:19] LABS: Calcium 11.2 mg/dL (8.4-10.2)
[2021-08-06 13:25] LABS: Ferritin 46 ng/mL (10-250)
[2021-08-06 13:28] LABS: C Reactive Protein 0.33 mg/dL (< or = 0.50)
[2021-08-06 13:34] LABS: Estimated Average Glucose 111 mg/dL; Hemoglobin A1c % 5.5 %
[2021-08-08 13:51] LABS: Anti Nuclear Antibody Screen NEGATIVE (NEGATIVE)
== END 2021-08-06 11:18 | disposition home or self-care (01) ==
LOC: HO.LAB 11:17
PROVIDERS: Absent Provider Internal Medicine; PCP Internal Medicine; Visit Provider Nurse Practitioner
DX: Z00.00 Encounter for general adult medical examination without abnormal findings (principal); D80.1 Nonfamilial hypogammaglobulinemia; E11.9 Type 2 diabetes mellitus without complications; H61.21 Impacted cerumen, right ear; I10 Essential (primary) hypertension; L71.9 Rosacea, unspecified; Z86.711 Personal history of pulmonary embolism
CPT/HCPCS: 36415; 80053; 80061; 82043; 82728; 83036; 85025; 86038; 86039; 86140

== ENCOUNTER 2021-08-07 09:43 | Outpatient (REF) | payer OTHER, SELFPAY ==
[2021-08-07 10:17] LABS: Creatinine Urine 116.15 mg/dL; Microalbum/Creatinine Ratio Ur 6.8 ug/mg cr
== END 2021-08-07 09:44 | disposition home or self-care (01) ==
LOC: HO.LNP 09:43
PROVIDERS: Internal Medicine; Visit Provider Nurse Practitioner
DX: K58.0 Irritable bowel syndrome with diarrhea (principal); R11.2 Nausea with vomiting, unspecified; D80.1 Nonfamilial hypogammaglobulinemia; E11.9 Type 2 diabetes mellitus without complications; H61.21 Impacted cerumen, right ear; I10 Essential (primary) hypertension; L71.9 Rosacea, unspecified
CPT/HCPCS: 82043; 87045; 87046

== ENCOUNTER 2021-08-08 09:45 | Emergency (ER) | payer OTHER, SELFPAY ==
[2021-08-08 09:58] VITALS: BP 132/72; PULSE 85; RESP 16; TEMP 36.7; O2SAT 95
[2021-08-08 10:02] VITALS: BP 132/72; PULSE 85; RESP 16; TEMP 36.6; O2SAT 98; BMI 39.4
--- NOTE | 2021-08-08 10:27 | ECG_ITS ---
Test Reason : N/V Blood Pressure : / mmHG Vent. Rate : 069 BPM Atrial Rate : 069 BPM P-R Int : 146 ms QRS Dur : 096 ms QT Int : 406 ms P-R-T Axes : 040 010 014 degrees QTc Int : 435 ms Normal sinus rhythm RSR' or QR pattern in V1 suggests right ventricular conduction delay Nonspecific T wave abnormality Abnormal ECG When compared with ECG of 23-MAY-2021 11:06, No significant change was found Referred By: Soy Jerry Electronically Signed By:KIMBERLY NESBITT MD
--- NOTE | 2021-08-08 10:28 | ED.GENADULT ---
HPI - General Adult General Chief complaint: General Medical Stated complaint: headache, rash Time Seen by Provider: 08/08/21 10:20 Source: patient Mode of arrival: ambulatory Limitations: no limitations History of Present Illness HPI narrative: Patient presents to ED for with migraine exacerbation and itchy rash under bilateral breasts and in bilateral groin. Patient states having migraine exacerbation for 2 days. Patient states history of migraine and ran out fof her migraine meds to help with the headache. Patient states headache, photophobia, and nausea. Denies any chest pain or shortness of breath. Patient denies any slurred speech, facial droop, or paralysis of extremities. Related Data Home Medications Medication Instructions Recorded Confirmed montelukast 10 mg tablet 10 mg PO BEDTIME 08/02/20 05/23/21 cyanocobalamin (vitamin B-12) 1,000 mcg PO DAILY 11/05/20 05/23/21 1,000 mcg tablet hydroxyzine HCl 25 mg tablet 1 tab PO TID PRN 12/12/20 05/23/21 cholecalciferol (vitamin D3) 25 25 mcg PO DAILY 03/19/21 05/23/21 mcg (1,000 unit) tablet losartan 100 mg tablet 1 tab PO DAILY 05/12/21 05/23/21 lidocaine 5 % topical patch 1 patch TOPICAL DAILY PRN 05/23/21 05/23/21 (Lidoderm) prednisone 10 mg tablet 10 mg PO DAILY 05/23/21 05/23/21 zolpidem 5 mg tablet (Ambien) 10 mg PO BEDTIME PRN tab 07/18/21 Previous Rx's Medication Instructions Recorded albuterol sulfate 90 mcg/actuation 1 inh INHALATION QID PRN #18 g 10/13/20 aerosol inhaler budesonide-formoterol HFA 160 2 puff INHALATION BID 30 Days 03/19/21 mcg-4.5 mcg/actuation aerosol #10.2 g inhaler (Symbicort) gabapentin 300 mg capsule 600 mg PO BID 30 Days #120 cap 04/14/21 (Neurontin) ondansetron 4 mg disintegrating 4 mg PO TID PRN 5 Days #10 tab 05/23/21 tablet aripiprazole 5 mg tablet (Abilify) 5 mg PO BEDTIME #30 tab 05/26/21 immune glob,gamm(IgG) 10 %-pro-IgA 40 g IV .monthly #400 ml 05/26/21 0 to 50 mcg/mL intravenous solution (Privigen) sumatriptan succinate 50 mg tablet 50 mg PO DAILY PRN #30 tab 05/26/21 oxycodone 5 mg tablet 5 mg PO Q8H PRN 30 Days #46 tab 06/26/21 apixaban 5 mg tablet 5 mg PO BID 30 Days #60 tab 06/27/21 benzonatate 200 mg capsule 200 mg PO TID PRN 30 Days #60 cap 06/27/21 alosetron 0.5 mg tablet (Lotronex) 0.5 mg PO DAILY 30 Days #30 tab 07/18/21 omeprazole 40 mg capsule,delayed 40 mg PO BID 30 Days #60 cap 07/18/21 release sucralfate 1 gram tablet (Carafate) 2 g PO DAILY 30 Days #60 tab 07/18/21 pshxuhwamg-pghajpskqsotx-mwtaotur 1 cap PO Q4H PRN #20 cap 08/08/21 50 mg-300 mg-40 mg capsule (Fioricet) clotrimazole 1 % topical cream 1 appl TOPICAL BID PRN 14 Days #45 08/08/21 g Allergies Allergy/AdvReac Type Severity Reaction Status Date / Time No Known Allergies Allergy Verified 07/18/21 11:33 Review of Systems Review of Systems: Yes all other systems are reviewed and are negative Constitutional: Constitutional: Reports as per HPI, Reports no additional constitutional complaints and Reports headache(s) Eyes: Eyes: Reports as per HPI and Reports no additional eye complaints Comments: photophobia ENT: Reports system reviewed and no additional complaints, except as documented, Reports as per HPI and Reports headache(s) Cardiovascular: Cardiovascular: Reports as per HPI, Reports no additional cardiovascular complaints, Denies chest pain and Denies dyspnea Respiratory: Respiratory: Reports as per HPI, Reports no additional respiratory complaints, Denies pain on inspiration and Denies dyspnea Gastrointestinal: Gastrointestinal: Reports as per HPI, Reports no additional gastrointestinal complaints and Reports nausea Genitourinary: Genitourinary: Reports no additional female genitourinary complaints and Reports as per HPI Musculoskeletal: Musculoskeletal: Reports no additional musculoskeletal complaints and Reports as per HPI Integumentary/Breasts: Comments: rash under bilateral breast and in groin Neurologic: Reports headache(s) Psychiatric: Psychiatric: Reports no additional psychiatric complaints and Reports as per HPI [facility] Past Medical History Medical History Anemia Arthritis Asthma Asthma exacerbation Back pain Bronchitis Chronic pain syndrome Complex regional pain syndrome i of left lower limb Cough Depression Diabetic neuropathy Diet-controlled diabetes mellitus Disc degeneration, lumbosacral Dizziness Elevated lactic acid level Essential hypertension Fibromyalgia Headache Headache, migraine Hypogammaglobulinemia Hypothyroidism Laryngotracheitis Low back pain Migraines Morbid obesity BABATUNDE (obstructive sleep apnea) Pleuritic chest pain 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 Pulmonary embolism Sleep apnea Spondylosis of lumbar spine TIA (transient ischemic attack) Type 2 diabetes mellitus with unspecified complications Surgical History History of bariatric surgery History of cholecystectomy History of esophagogastroduodenoscopy (EGD) Hx of colonoscopy S/P total abdominal hysterectomy Family History Family History Mother Diabetes Stroke Family/Other Diabetes Father Diabetes Social History Social History Household Members: Spouse Housing: House Do you presently have visiting nurse or other home services: No Alcohol intake: unknown Patient Tobacco Use Status: Never used Tobacco Use of substances other than those prescribed or required for medical reasons: No Advance Directives: No Advance Directives on File: No Advance Directives Date on File: 05/23/21 Patient : Yes service: No Current occupational status: unemployed and disabled Physical Exam Vital Signs: Vital Signs: Last Vital Signs Temp 98 F 08/08/21 10:02 Pulse 82 08/08/21 14:04 Resp 14 08/08/21 14:04 BP 122/89 08/08/21 14:04 Pulse Ox 96 08/08/21 14:04 Body Mass Index 39.4 Const: General: cooperative, healthy appearing, comfortable, no acute distress, well developed, alert and awake Orientation/consciousness: patient oriented x3 HENMT: Head: Yes normal to inspection, Yes No palpable skull fracture present, Yes normocephalic, Yes atraumatic and No abrasion Eyes: Other: photophobia General: appearance normal, both eyes and all related structures Neck: Neck: Yes normal visual inspection, Yes full ROM, Yes no lymphadenopathy, Yes no meningeal signs, Yes trachea midline, Yes supple, No anterior neck swelling and No tender Chest: Chest palpation & inspection: normal inspection of the chest and normal palpation of entire chest wall Resp: Effort & Inspection: normal respiratory effort and able to speak in complete sentences Cardio: Jugular venous distension: no JVD Heart sounds: S1 normal heart sound present and S2 normal heart sound present GI: Inspection: Yes normal to inspection and No abdominal wall ecchymosis Palpation (GI): Soft to palpation, not firm, nontender, no guarding and not rigid : General: No CVA tenderness and Yes no CVA tenderness Back/Spine/Pelvis: Back: no CVA tenderness, No CVA tenderness and No back tenderness Skin: Full body images: 1. Fungal rash 2. Fungal rash 3. Fungal rash 4. Fungal serenity Neuro: Other: Negative facial droop. Negative slurred speech. All extremities equal strength 5+. Negative pronator drift. Finger to nose and rapid hand movement intact. Negative Romberg. General: patient oriented x3, gait normal, no meningeal signs and CN's II-XI intact bilaterally Cranial nerves: Yes CN's II-XII intact bilaterally Extrem: General: Yes normal to inspection and Yes full ROM Psych: Appearance: grossly normal, well kempt and not disheveled Course Course Course Narrative: History physical exam indicate migraine exacerbation and fungal rash but due to scardiac history of strokes, diabetes, age, will do 1 troponin although patient is not having any chest pain or shortness of breath. Patient's symptoms as fungal rash and headache, photophobia, and nausea. History physical exam does not indicate migraine. Reevaluation(s) Reevaluation #1: Patient's headache resolved after migraine cocktail given. Patient EKG negative STEMI. Troponin after 2 days of headache with nausea came back negative. Patient rest of labs are normal. Patient will be discharged with fungal cream for fungal rash. No indication for head CT scan. Patient has history of migraine and symptoms presented as migraine which improved with meds. Patient denies any head trauma. Patient denies is the worse headache of her life or thunderclap. Negative for any neuro deficits. Time: 13:36 Medical Decision Making MDM Narrative Medical decision making narrative: Migraine. Fungal rash Lab Data Result diagrams: 08/08/21 10:42 08/08/21 10:42 Labs: Lab Results 10/08/21 10/08/21 10/08/21 Range/Units 10:42 10:42 10:42 WBC 5.3 (4.8-10.8) X10*3/uL RBC 4.51 (4.20-5.50) X10*6/uL Hgb 13.3 (12.0-16.0) g/dl Hct 41.8 (37-47) % MCV 92.7 (80-98) fL MCH 29.5 (27.0-33.0) pg MCHC 31.8 (31.0-35.0) g/dl RDW 13.5 (11.0-16.0) % Plt Count 238 (160-400) X10*3/uL MPV 8.7 L (9.4-12.3) fL Immature Gran % (Auto) 0.4 (0.0-0.4) % Neut % (Auto) 62.9 (45-73) % Lymph % (Auto) 26.1 (20-40) % Brewster % (Auto) 7.0 (2-11) % Eos % (Auto) 3.2 (0-4) % Baso % (Auto) 0.4 (0-2) % Lymph # (Auto) 1.4 (1.2-4.9) X10*3/uL Brewster # (Auto) 0.4 (0.1-1.2) X10*3/uL Eos # (Auto) 0.2 (0.0-0.4) X10*3/uL Baso # (Auto) 0.0 (0.0-0.2) X10*3/uL Abs Immat Gran (auto) 0.02 (0.00-0.03) X10*3/uL Absolute Neuts (auto) 3.3 (2.0-8.3) X10*3/uL Absolute Nucleated RBC 0.000 (0.0-0.012) X10*3/uL Nucleated RBC % (auto) 0.0 (0.0-0.2) /100WBC Sodium 139 (135-145) mmol/L Potassium 4.9 (3.3-5.1) mmol/L Chloride 104 (96-108) mmol/L Carbon Dioxide 29 (22-29) mmol/L Anion Gap 11 L (12-20) BUN 22 H (9-16) mg/dL Creatinine 1.07 (0.5-1.4) mg/dL Estim Creat Clear Calc 59.5 Estimated GFR 54 Random Glucose 91 (60-115) mg/dL Calcium 10.0 D (8.4-10.2) mg/dL Total Bilirubin 0.3 (0.0-1.0) mg/dL AST 26 (5-31) U/L ALT 20 (0-31) U/L Alkaline Phosphatase 85 (39-117) U/L Troponin I High Sens < 3.5 (<3.5-17.0) ng/L Total Protein 7.2 (6.5-8.0) g/dL Albumin 3.8 (3.5-5.0) g/dL ECG Data Interpretation: Normal sinus rhythm. Ventricular rate 69. Pr interval 146. QRS 96. QTC 435. Negative STEMI. Discharge Plan Discharge Clinical Impression: Migraine, Tinea corporis Patient Disposition: Home, Self-Care Instructions: Tinea Corporis (ED), Migraine Headache (ED) Additional Instructions: Regrese al servicio de urgencias si tiene rigidez en el regla, dolor en el pecho, dificultad para respirar, dificultad para hablar, declive facial, p?rdida de la visi?n, par?lisis de las extremidades, dolor en el pecho, dificultad para respirar, dolor de noe que empeora con mareos y n?useas, v?mitos, empeoramiento de la erupci?n o cualquier otro s?ntoma relacionado. Isamar un seguimiento con marcial PCP Prescriptions: New pbehvrekvl-opmsylouftnmk-vort [Fioricet] 50-300-40 mg capsule 1 cap PO Q4H PRN (Reason: pain) Qty: 20 RF: 0 clotrimazole 1 % cream 1 appl topical BID PRN (Reason: rash) 14 Days Qty: 45 RF: 0 No Action gabapentin [Neurontin] 300 mg capsule 600 mg PO BID 30 Days Qty: 120 RF: 11 immun glob G(IgG)-pro-IgA 0-50 [Privigen] 10 % solution 40 g IV .monthly Qty: 400 RF: 11 oxycodone 5 mg tablet 5 mg PO Q8H PRN (Reason: pain) 30 Days Qty: 46 RF: 0 hydroxyzine HCl 25 mg tablet 1 tab PO TID PRN (Reason: Anxiety) RF: 0 ondansetron 4 mg tablet,disintegrating 4 mg PO TID PRN (Reason: nausea and vomiting) 5 Days Qty: 10 RF: 0 prednisone 10 mg tablet 10 mg PO DAILY RF: 0 lidocaine [Lidoderm] 5 % adhesive patch,medicated 1 patch topical DAILY PRN (Reason: Back Pain) RF: 0 aripiprazole [Abilify] 5 mg Tablet 5 mg PO BEDTIME Qty: 30 RF: 0 sumatriptan succinate 50 mg tablet 50 mg PO DAILY PRN (Reason: migraine headache) Qty: 30 RF: 0 montelukast 10 mg tablet 10 mg PO BEDTIME RF: 0 albuterol sulfate 90 mcg/actuation HFA aerosol inhaler 1 inh inhalation QID PRN (Reason: shortness of breath or wheezing) Qty: 18 RF: 0 losartan 100 mg tablet 1 tab PO DAILY RF: 0 cholecalciferol (vitamin D3) 25 mcg (1,000 unit) tablet 25 mcg PO DAILY RF: 0 budesonide-formoterol [Symbicort] 160-4.5 mcg/actuation HFA aerosol inhaler 2 puff inhalation BID 30 Days Qty: 10.2 RF: 11 benzonatate 200 mg capsule 200 mg PO TID PRN (Reason: cough) 30 Days Qty: 60 RF: 3 apixaban 5 mg tablet 5 mg PO BID 30 Days Qty: 60 RF: 6 zolpidem [Ambien] 5 mg tablet 10 mg PO BEDTIME PRN (Reason: insomnia) RF: 0 alosetron [Lotronex] 0.5 mg tablet 0.5 mg PO DAILY 30 Days Qty: 30 RF: 3 sucralfate [Carafate] 1 gram tablet 2 g PO DAILY 30 Days Qty: 60 RF: 2 omeprazole 40 mg capsule,delayed release(DR/EC) 40 mg PO BID 30 Days Qty: 60 RF: 3 cyanocobalamin (vitamin B-12) 1,000 mcg tablet 1,000 mcg PO DAILY RF: 0 Stand Alone Forms: Work/School Release Interventions: ED Discharge Assessment Last Done: 08/08/21 13:50 Discharge Date/Time: 08/08/21 14:04 Print Language: Qatari
[2021-08-08] MEDS: Butalb/Acetamin/Caff 50/325/40 TABLET 2 TAB PO (10:42)
[2021-08-08] MEDS: diphenhydrAMINE HCL 50 MG/ML VIAL IVPUSH (10:42)
[2021-08-08] MEDS: Metoclopramide HCl 10 MG/2 ML VIAL IVPUSH (10:42)
[2021-08-08 10:52] LABS: MANUAL DIFF FLAG NO
[2021-08-08 10:55] LABS: Basophils Percent Auto 0.4 % (0-2); Eosinophils Absolute Auto 0.2 X10*3/uL (0.0-0.4); Eosinophils Percent Auto 3.2 % (0-4); Hematocrit 41.8 % (37-47); Hemoglobin 13.3 g/dl (12.0-16.0); Imm Gran Abs Auto 0.02 X10*3/uL (0.00-0.03); Imm Gran Pct Auto 0.4 % (0.0-0.4); Lymphocytes Absolute Auto 1.4 X10*3/uL (1.2-4.9); Lymphocytes Percent Auto 26.1 % (20-40); Mean Corpuscular HGB Conc 31.8 g/dl (31.0-35.0); Mean Corpuscular Hemoglobin 29.5 pg (27.0-33.0); Mean Corpuscular Volume 92.7 fL (80-98); Mean Platelet Volume 8.7 fL (9.4-12.3); Monocytes Absolute Auto 0.4 X10*3/uL (0.1-1.2); Neutrophils Absolute Auto 3.3 X10*3/uL (2.0-8.3); Neutrophils Percent Auto 62.9 % (45-73); Platelet Count 238 X10*3/uL (160-400); Red Blood Count 4.51 X10*6/uL (4.20-5.50); Red Cell Distribution Width 13.5 % (11.0-16.0); White Blood Count 5.3 X10*3/uL (4.8-10.8)
[2021-08-08 11:11] LABS: Alanine Aminotransferase 20 U/L (0-31); Albumin Level 3.8 g/dL (3.5-5.0); Alkaline Phosphatase 85 U/L (39-117); Anion Gap 11 (12-20); Aspartate Amino Transferase 26 U/L (5-31); Bilirubin Total 0.3 mg/dL (0.0-1.0); Blood Urea Nitrogen 22 mg/dL (9-16); Carbon Dioxide 29 mmol/L (22-29); Chloride 104 mmol/L (96-108); Creatinine Clr Calc Pharmacy 59.5; Estimated Glomerular Filt Rate 54; Glucose Random 91 mg/dL (60-115); Potassium 4.9 mmol/L (3.3-5.1); Sodium 139 mmol/L (135-145); Total Protein 7.2 g/dL (6.5-8.0)
[2021-08-08 11:16] LABS: Troponin-I High Sensitivity < 3.5 ng/L (<3.5-17.0)
[2021-08-08] MEDS: ondansetron HCL 4 MG/2 ML VIAL IVPUSH (11:55)
[2021-08-08] MEDS: Magnesium Sulfate/D5W 1 GM/100 ML PIGGYBACK IV (11:55)
[2021-08-08] MEDS: dexAMETHasone sod phosphate 4 MG/ML VIAL 8 MG IVPUSH (11:55)
[2021-08-08 14:04] VITALS: BP 122/89; PULSE 82; RESP 14; O2SAT 96
== END 2021-08-08 14:04 | disposition home or self-care (01) ==
PROVIDERS: Physician Assistant; Emergency Provider Emergency Medicine Emergency Medical Services; PCP Internal Medicine
DX: G43.009 Migraine without aura, not intractable, without status migrainosus (principal); B35.4 Tinea corporis; E11.9 Type 2 diabetes mellitus without complications; I10 Essential (primary) hypertension; J45.909 Unspecified asthma, uncomplicated
CPT/HCPCS: 36415; 80053; 84484; 85025; 93005; 96365; 96375; 99284; 99285; J1100; J1200; J2405; J2765; J3475

== ENCOUNTER → 2021-08-20 09:37 | Outpatient (BNVA) | payer OTHER, SELFPAY | PROVIDERS: PCP Internal Medicine; Visit Provider Anesthesiology | DX: M54.50 Low back pain, unspecified (principal); M51.37 Other intervertebral disc degeneration, lumbosacral region; M47.816 Spondylosis without myelopathy or radiculopathy, lumbar region | CPT/HCPCS: 99212 ==

== ENCOUNTER 2021-08-28 12:03 | Emergency (ER) | payer OTHER, SELFPAY ==
--- NOTE | ~2021-08-28 | XR_ITS ---
EXAMINATION: XR CHEST CLINICAL INFORMATION: Shortness of breath COMPARISON: May 12, 2021 TECHNIQUE: PA view of the chest was obtained. FINDINGS: No significant abnormality is noted involving the heart, lungs, mediastinum, bony thorax or soft tissues. XR/XR chest 1V IMPRESSION: No acute disease.
--- NOTE | ~2021-08-28 | CT_ITS ---
EXAMINATION: CT ABDOMEN AND PELVIS WITH CONTRAST CLINICAL INFORMATION: Abdominal pain and diarrhea. COMPARISON: CT abdomen/pelvis dated from 05/23/2021. TECHNIQUE: Multidetector volumetric images were obtained from the superior aspect of the liver through the pubic symphysis following administration 85 mL of Omnipaque 350 intravenous contrast. Sagittal and coronal reformatted images were obtained on the technologist's workstation. Oral contrast: No This CT examination was performed using dose optimization techniques as appropriate, variously including the following: *Automated exposure control *Adjustment of mA and/or kV according to patient size (this includes techniques or standardized protocols for targeted exams where dose is matched to indication/reason for exam; i.e. extremities or head) *Use of iterative reconstruction technique DLP: 523 mGy-cm FINDINGS: LUNG BASES: No focal consolidation or pleural effusion. Small calcified nodule in the right middle lobe is unchanged. LIVER, GALLBLADDER, AND BILIARY TREE: The attenuation of the liver is significantly less than the attenuation of the spleen, suggesting hepatic steatosis. The liver is otherwise normal in size and shape. No focal abnormalities. The patient is status post cholecystectomy with stable prominence of the CBD measuring up to 9 mm. There is no intrahepatic biliary ductal dilatation. PANCREAS: Unremarkable. SPLEEN: Unremarkable. ADRENAL GLANDS: Unremarkable. KIDNEYS AND URETERS: The kidneys are normal in size, shape, and attenuation. Redemonstration of multiple bilateral cysts, largest in the upper pole of the left kidney measuring up to 4.5 cm on coronal image 62 of series 5. There are a few other hypodensities bilaterally that are too small to characterize although statistically are also likely to represent simple cysts and do not require further workup. No hydronephrosis, hydroureter, or calculi seen. No perinephric stranding. BLADDER: Unremarkable. GASTROINTESTINAL TRACT: Postsurgical changes following gastric bypass. The stomach and the small bowel are nondilated. There is a normal appendix. The distal colon is under distended limiting assessment of wall thickening. However, there are no significant pericolic inflammatory changes to suspect diverticulitis or colitis. There is no bowel obstruction. ABDOMINAL WALL: No significant hernia is appreciated. LYMPH NODES: No lymphadenopathy. VASCULAR: Unremarkable. PELVIC VISCERA: Hysterectomy. No adnexal lesions. OSSEOUS STRUCTURES: Similar subcortical sclerosis in the left femoral head suspicious for avascular necrosis. Hemangioma at L4. No acute or aggressive osseous abnormalities. CT/CT abdomen pelvis w con IMPRESSION: No acute abnormalities to explain the patient's symptoms. Specifically, there is no evidence of active inflammatory bowel changes or bowel obstruction. Redemonstration of hepatic steatosis.
[2021-08-28 12:34] VITALS: BP 128/64; PULSE 64; RESP 18; TEMP 36.8; O2SAT 97; BMI 38.3
[2021-08-28 12:51] LABS: MANUAL DIFF FLAG NO
[2021-08-28 12:55] LABS: Basophils Percent Auto 0.3 % (0-2); Eosinophils Absolute Auto 0.2 X10*3/uL (0.0-0.4); Eosinophils Percent Auto 2.1 % (0-4); Hematocrit 47.2 % (37-47); Imm Gran Abs Auto 0.07 X10*3/uL (0.00-0.03); Imm Gran Pct Auto 0.7 % (0.0-0.4); Lymphocytes Absolute Auto 2.2 X10*3/uL (1.2-4.9); Lymphocytes Percent Auto 21.8 % (20-40); Mean Corpuscular HGB Conc 31.8 g/dl (31.0-35.0); Mean Corpuscular Hemoglobin 29.5 pg (27.0-33.0); Mean Corpuscular Volume 92.7 fL (80-98); Mean Platelet Volume 8.7 fL (9.4-12.3); Monocytes Absolute Auto 0.7 X10*3/uL (0.1-1.2); Monocytes Percent Auto 6.7 % (2-11); Neutrophils Absolute Auto 6.9 X10*3/uL (2.0-8.3); Neutrophils Percent Auto 68.4 % (45-73); Platelet Count 300 X10*3/uL (160-400); Red Blood Count 5.09 X10*6/uL (4.20-5.50); Red Cell Distribution Width 14.2 % (11.0-16.0); White Blood Count 10.1 X10*3/uL (4.8-10.8)
[2021-08-28 13:12] LABS: Alanine Aminotransferase 22 U/L (0-31); Albumin Level 4.2 g/dL (3.5-5.0); Alkaline Phosphatase 97 U/L (39-117); Anion Gap 14 (12-20); Aspartate Amino Transferase 20 U/L (5-31); Bilirubin Total 0.3 mg/dL (0.0-1.0); Blood Urea Nitrogen 23 mg/dL (9-16); Calcium 10.3 mg/dL (8.4-10.2); Carbon Dioxide 24 mmol/L (22-29); Chloride 108 mmol/L (96-108); Creatinine Clr Calc Pharmacy 54.1; Estimated Glomerular Filt Rate 49; Glucose Random 79 mg/dL (60-115); Potassium 4.5 mmol/L (3.3-5.1); Sodium 141 mmol/L (135-145); Total Protein 7.1 g/dL (6.5-8.0)
[2021-08-28 13:20] LABS: COVID-19 Test Negative (Negative); IDNOW Serial# 9DD0AD1C
--- NOTE | 2021-08-28 14:17 | ED.GENADULT ---
HPI - General Adult General Chief complaint: General Medical Stated complaint: vomiting, diarrhea, headache Time Seen by Provider: 08/28/21 14:16 Source: patient Mode of arrival: ambulatory Limitations: no limitations History of Present Illness HPI narrative: Patient presents to ED for multiple complaints. Patient presents to the ED migraine, diarrhea, nausea, vomiting, and lower abdominal cramping. Patient states having these symptoms for the past 4 days. Patient states vaccinated against COVID-19. Patient recently finished being treated with antibiotics for bronchitis. Patient denies any chest pain, upper abdominal pain, or shortness of breath Related Data Home Medications Medication Instructions Recorded Confirmed montelukast 10 mg tablet 10 mg PO BEDTIME 08/02/20 05/23/21 cyanocobalamin (vitamin B-12) 1,000 mcg PO DAILY 11/05/20 05/23/21 1,000 mcg tablet hydroxyzine HCl 25 mg tablet 1 tab PO TID PRN 12/12/20 05/23/21 cholecalciferol (vitamin D3) 25 25 mcg PO DAILY 03/19/21 05/23/21 mcg (1,000 unit) tablet losartan 100 mg tablet 1 tab PO DAILY 05/12/21 05/23/21 lidocaine 5 % topical patch 1 patch TOPICAL DAILY PRN 05/23/21 05/23/21 (Lidoderm) prednisone 10 mg tablet 10 mg PO DAILY 05/23/21 05/23/21 zolpidem 5 mg tablet (Ambien) 10 mg PO BEDTIME PRN tab 07/18/21 Previous Rx's Medication Instructions Recorded albuterol sulfate 90 mcg/actuation 1 inh INHALATION QID PRN #18 g 10/13/20 aerosol inhaler budesonide-formoterol HFA 160 2 puff INHALATION BID 30 Days 03/19/21 mcg-4.5 mcg/actuation aerosol #10.2 g inhaler (Symbicort) gabapentin 300 mg capsule 600 mg PO BID 30 Days #120 cap 04/14/21 (Neurontin) ondansetron 4 mg disintegrating 4 mg PO TID PRN 5 Days #10 tab 05/23/21 tablet aripiprazole 5 mg tablet (Abilify) 5 mg PO BEDTIME #30 tab 05/26/21 immune glob,gamm(IgG) 10 %-pro-IgA 40 g IV .monthly #400 ml 05/26/21 0 to 50 mcg/mL intravenous solution (Privigen) sumatriptan succinate 50 mg tablet 50 mg PO DAILY PRN #30 tab 05/26/21 oxycodone 5 mg tablet 5 mg PO Q8H PRN 30 Days #46 tab 06/26/21 apixaban 5 mg tablet 5 mg PO BID 30 Days #60 tab 06/27/21 alosetron 0.5 mg tablet (Lotronex) 0.5 mg PO DAILY 30 Days #30 tab 07/18/21 omeprazole 40 mg capsule,delayed 40 mg PO BID 30 Days #60 cap 07/18/21 release sucralfate 1 gram tablet (Carafate) 2 g PO DAILY 30 Days #60 tab 07/18/21 swiygcdmsw-qfuoopstnnpfc-kptrrysj 1 cap PO Q4H PRN #20 cap 08/08/21 50 mg-300 mg-40 mg capsule (Fioricet) clotrimazole 1 % topical cream 1 appl TOPICAL BID PRN 14 Days #45 08/08/21 g benzonatate 200 mg capsule 200 mg PO TID PRN 30 Days #60 cap 08/20/21 loperamide 2 mg capsule (Imodium 2 mg PO QID PRN 2 Days #8 cap 08/28/21 A-D) tramadol 50 mg tablet 50 mg PO TID PRN 3 Days #9 tab 08/28/21 Allergies Allergy/AdvReac Type Severity Reaction Status Date / Time No Known Allergies Allergy Verified 08/28/21 12:33 Review of Systems Review of Systems: Yes all other systems are reviewed and are negative Constitutional: Constitutional: Reports as per HPI and Reports no additional constitutional complaints Eyes: Eyes: Reports as per HPI and Reports no additional eye complaints ENT: Reports system reviewed and no additional complaints, except as documented and Reports as per HPI Cardiovascular: Cardiovascular: Reports as per HPI and Reports no additional cardiovascular complaints Respiratory: Respiratory: Reports as per HPI and Reports no additional respiratory complaints Gastrointestinal: Gastrointestinal: Reports as per HPI, Reports no additional gastrointestinal complaints, Reports GI cramping (lower abdomen), Reports diarrhea, Reports nausea and Reports vomiting Musculoskeletal: Musculoskeletal: Reports no additional musculoskeletal complaints and Reports as per HPI Neurologic: Reports system reviewed and no additional complaints, except as documented and Reports as per HPI Psychiatric: Psychiatric: Reports no additional psychiatric complaints and Reports as per HPI [facility] Past Medical History Medical History (Updated 08/28/21 @ 20:03 by MEGA Ledesma) Anemia Arthritis Asthma Asthma exacerbation Back pain Bronchitis Chronic pain syndrome Complex regional pain syndrome i of left lower limb Cough Depression Diabetic neuropathy Diet-controlled diabetes mellitus Disc degeneration, lumbosacral Dizziness Elevated lactic acid level Essential hypertension Fibromyalgia Headache Headache, migraine Hypogammaglobulinemia Hypothyroidism Laryngotracheitis Low back pain Migraines Morbid obesity BABATUNDE (obstructive sleep apnea) Pleuritic chest pain 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 Pulmonary embolism Sleep apnea 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 TIA (transient ischemic attack) Type 2 diabetes mellitus with unspecified complications Surgical History History of bariatric surgery History of cholecystectomy History of esophagogastroduodenoscopy (EGD) Hx of colonoscopy S/P total abdominal hysterectomy Family History Family History Mother Diabetes Stroke Family/Other Diabetes Father Diabetes Social History Social History Household Members: Spouse Housing: House Do you presently have visiting nurse or other home services: No Alcohol intake: unknown Patient Tobacco Use Status: Never used Tobacco Advance Directives: No Advance Directives Date on File: 05/23/21 Patient : No service: No Current occupational status: unemployed and disabled Physical Exam Vital Signs: Vital Signs: Last Vital Signs Temp 98.3 F 08/28/21 19:24 Pulse 57 08/28/21 19:24 Resp 13 08/28/21 19:24 BP 118/62 08/28/21 19:24 Pulse Ox 94 08/28/21 19:24 Body Mass Index 38.3 Const: General: cooperative, healthy appearing, comfortable, no acute distress, well developed, alert, awake and Physically active Orientation/consciousness: patient oriented x3 HENMT: Head: Yes normal to inspection, Yes No palpable skull fracture present, Yes normocephalic, Yes atraumatic and No abrasion Eyes: General: appearance normal, both eyes and all related structures Neck: Neck: Yes normal visual inspection, Yes full ROM, Yes no lymphadenopathy, Yes no meningeal signs, Yes trachea midline, Yes supple, Yes anterior neck swelling and No tender Chest: Chest palpation & inspection: normal inspection of the chest and normal palpation of entire chest wall Breast/axilla palpation: normal palpation of the breasts Resp: Effort & Inspection: normal respiratory effort and able to speak in complete sentences Auscultation: clear to auscultation bilaterally Cardio: Jugular venous distension: no JVD Heart sounds: S1 normal heart sound present and S2 normal heart sound present GI: Inspection: Yes normal to inspection and No abdominal wall ecchymosis Palpation (GI): Soft to palpation, not firm, Tenderness to palpation present (GI) (mid tenderness), no guarding and not rigid : General: No CVA tenderness and Yes no CVA tenderness Back/Spine/Pelvis: Back: no CVA tenderness, No CVA tenderness and No back tenderness Skin: General skin exam: no rashes or lesions noted and elasticity normal Neuro: General: patient oriented x3, gait normal, no meningeal signs and CN's II-XI intact bilaterally Cranial nerves: Yes CN's II-XII intact bilaterally Extrem: General: Yes normal to inspection and Yes full ROM Psych: Appearance: grossly normal, well kempt and not disheveled Course Course Course Narrative: History indicates possible viral syndrome will test for COVID. Labs were ordered and patient is in rapid medical screening. No white count and liver enzyme normal. Was sent for CT scan to rule out any colitis. Also patient was ripped axis give stool sample to check for possible C diff. Patient states diarrhea for 4 days water renal least 11 episodes of diarrhea per day. IV fluids ordered Reevaluation(s) Reevaluation #1: Patient refused to give stool sample although she went to the bathroom multiple times for diarrhea and lower abdominal cramping. Labs are normal and baseline. Abdominal CT scan does not show any colitis. Patient given morphine and Fioricet for migraine exacerbation. COVID swab negative. Once again patient also refused to give urine. Not suspect any cardiac or pulmonary etiology. Not suspect a brain bleed or meningitis. Not suspecting cephalitis. Neuro exam is intact. Negative any neuro deficits. Patient is safe for discharge. Time: 20:00 Medical Decision Making [facility] Narrative Medical decision making narrative: Gastroenteritis. Migraines aspiration Lab Data Result diagrams: 08/28/21 12:45 08/28/21 12:45 Labs: Lab Results 08/28/21 08/28/21 08/28/21 Range/Units 12:45 12:45 12:45 WBC 10.1 (4.8-10.8) X10*3/uL RBC 5.09 (4.20-5.50) X10*6/uL Hgb 15.0 (12.0-16.0) g/dl Hct 47.2 H (37-47) % MCV 92.7 (80-98) fL MCH 29.5 (27.0-33.0) pg MCHC 31.8 (31.0-35.0) g/dl RDW 14.2 (11.0-16.0) % Plt Count 300 D (160-400) X10*3/uL MPV 8.7 L (9.4-12.3) fL Immature Gran % (Auto) 0.7 H (0.0-0.4) % Neut % (Auto) 68.4 (45-73) % Lymph % (Auto) 21.8 (20-40) % Monroe % (Auto) 6.7 (2-11) % Eos % (Auto) 2.1 (0-4) % Baso % (Auto) 0.3 (0-2) % Lymph # (Auto) 2.2 (1.2-4.9) X10*3/uL Monroe # (Auto) 0.7 (0.1-1.2) X10*3/uL Eos # (Auto) 0.2 (0.0-0.4) X10*3/uL Baso # (Auto) 0.0 (0.0-0.2) X10*3/uL Abs Immat Gran (auto) 0.07 H (0.00-0.03) X10*3/uL Absolute Neuts (auto) 6.9 (2.0-8.3) X10*3/uL Absolute Nucleated RBC 0.000 (0.0-0.012) X10*3/uL Nucleated RBC % (auto) 0.0 (0.0-0.2) /100WBC Sodium 141 (135-145) mmol/L Potassium 4.5 (3.3-5.1) mmol/L Chloride 108 (96-108) mmol/L Carbon Dioxide 24 (22-29) mmol/L Anion Gap 14 (12-20) BUN 23 H (9-16) mg/dL Creatinine 1.16 (0.5-1.4) mg/dL Estim Creat Clear Calc 54.1 Estimated GFR 49 Random Glucose 79 (60-115) mg/dL Calcium 10.3 H (8.4-10.2) mg/dL Total Bilirubin 0.3 (0.0-1.0) mg/dL AST 20 (5-31) U/L ALT 22 (0-31) U/L Alkaline Phosphatase 97 (39-117) U/L Total Protein 7.1 (6.5-8.0) g/dL Albumin 4.2 (3.5-5.0) g/dL COVID-19 ([facility]) Negative (Negative) COVID-19 Clin Com See Note Influenza Type A (PCR) (Negative) Influenza Type B (PCR) (Negative) RSV RNA Qual (PCR) (Negative) SARS-CoV-2 RNA (RT-PCR) (Negative) 08/28/21 Range/Units 16:11 WBC (4.8-10.8) X10*3/uL RBC (4.20-5.50) X10*6/uL Hgb (12.0-16.0) g/dl Hct (37-47) % MCV (80-98) fL MCH (27.0-33.0) pg MCHC (31.0-35.0) g/dl RDW (11.0-16.0) % Plt Count (160-400) X10*3/uL MPV (9.4-12.3) fL Immature Gran % (Auto) (0.0-0.4) % Neut % (Auto) (45-73) % Lymph % (Auto) (20-40) % Monroe % (Auto) (2-11) % Eos % (Auto) (0-4) % Baso % (Auto) (0-2) % Lymph # (Auto) (1.2-4.9) X10*3/uL Monroe # (Auto) (0.1-1.2) X10*3/uL Eos # (Auto) (0.0-0.4) X10*3/uL Baso # (Auto) (0.0-0.2) X10*3/uL Abs Immat Gran (auto) (0.00-0.03) X10*3/uL Absolute Neuts (auto) (2.0-8.3) X10*3/uL Absolute Nucleated RBC (0.0-0.012) X10*3/uL Nucleated RBC % (auto) (0.0-0.2) /100WBC Sodium (135-145) mmol/L Potassium (3.3-5.1) mmol/L Chloride (96-108) mmol/L Carbon Dioxide (22-29) mmol/L Anion Gap (12-20) BUN (9-16) mg/dL Creatinine (0.5-1.4) mg/dL Estim Creat Clear Calc Estimated GFR Random Glucose (60-115) mg/dL Calcium (8.4-10.2) mg/dL Total Bilirubin (0.0-1.0) mg/dL AST (5-31) U/L ALT (0-31) U/L Alkaline Phosphatase (39-117) U/L Total Protein (6.5-8.0) g/dL Albumin (3.5-5.0) g/dL COVID-19 ([facility]) (Negative) COVID-19 Clin Com Influenza Type A (PCR) NEGATIVE (Negative) Influenza Type B (PCR) NEGATIVE (Negative) RSV RNA Qual (PCR) NEGATIVE (Negative) SARS-CoV-2 RNA (RT-PCR) NEGATIVE (Negative) Discharge Plan Discharge Clinical Impression: Gastroenteritis, Migraine Patient Disposition: Home, Self-Care Instructions: Migraine Headache (ED), Gastroenteritis (ED) Additional Instructions: Bateman tomograf?a computarizada abdominal y donis an?lisis de alberto resultaron normales. No nos d? un cultivo de heces para descartar bacterias en donis heces. Por lo tanto, comun?quese con bateman m?dico de cabecera para que le d? parisa muestra de materia fecal para que puedan analizar la presencia de bacterias en las heces, incluida C diff. Regrese al servicio de urgencias de inmediato si tiene dolor de pecho, dificultad para respirar, alberto en las heces, v?mitos, dolor abdominal intenso, debilidad, fiebre, escalofr?os, incapacidad para tolerar alimentos s?lidos / l?quidos o cualquier otro s?ntoma preocupante. Prescriptions: New tramadol 50 mg tablet 50 mg PO TID PRN (Reason: pain) 3 Days Qty: 9 RF: 0 loperamide [Imodium A-D] 2 mg capsule 2 mg PO QID PRN (Reason: loose stool) 2 Days Qty: 8 RF: 0 No Action gabapentin [Neurontin] 300 mg capsule 600 mg PO BID 30 Days Qty: 120 RF: 11 immun glob G(IgG)-pro-IgA 0-50 [Privigen] 10 % solution 40 g IV .monthly Qty: 400 RF: 11 oxycodone 5 mg tablet 5 mg PO Q8H PRN (Reason: pain) 30 Days Qty: 46 RF: 0 benzonatate 200 mg capsule 200 mg PO TID PRN (Reason: cough) 30 Days Qty: 60 RF: 3 hydroxyzine HCl 25 mg tablet 1 tab PO TID PRN (Reason: Anxiety) RF: 0 ondansetron 4 mg tablet,disintegrating 4 mg PO TID PRN (Reason: nausea and vomiting) 5 Days Qty: 10 RF: 0 prednisone 10 mg tablet 10 mg PO DAILY RF: 0 lidocaine [Lidoderm] 5 % adhesive patch,medicated 1 patch topical DAILY PRN (Reason: Back Pain) RF: 0 aripiprazole [Abilify] 5 mg Tablet 5 mg PO BEDTIME Qty: 30 RF: 0 sumatriptan succinate 50 mg tablet 50 mg PO DAILY PRN (Reason: migraine headache) Qty: 30 RF: 0 montelukast 10 mg tablet 10 mg PO BEDTIME RF: 0 albuterol sulfate 90 mcg/actuation HFA aerosol inhaler 1 inh inhalation QID PRN (Reason: shortness of breath or wheezing) Qty: 18 RF: 0 losartan 100 mg tablet 1 tab PO DAILY RF: 0 bobbilopqy-pmuhijgylknpn-kajz [Fioricet] 50-300-40 mg capsule 1 cap PO Q4H PRN (Reason: pain) Qty: 20 RF: 0 clotrimazole 1 % cream 1 appl topical BID PRN (Reason: rash) 14 Days Qty: 45 RF: 0 cholecalciferol (vitamin D3) 25 mcg (1,000 unit) tablet 25 mcg PO DAILY RF: 0 budesonide-formoterol [Symbicort] 160-4.5 mcg/actuation HFA aerosol inhaler 2 puff inhalation BID 30 Days Qty: 10.2 RF: 11 apixaban 5 mg tablet 5 mg PO BID 30 Days Qty: 60 RF: 6 zolpidem [Ambien] 5 mg tablet 10 mg PO BEDTIME PRN (Reason: insomnia) RF: 0 alosetron [Lotronex] 0.5 mg tablet 0.5 mg PO DAILY 30 Days Qty: 30 RF: 3 sucralfate [Carafate] 1 gram tablet 2 g PO DAILY 30 Days Qty: 60 RF: 2 omeprazole 40 mg capsule,delayed release(DR/EC) 40 mg PO BID 30 Days Qty: 60 RF: 3 cyanocobalamin (vitamin B-12) 1,000 mcg tablet 1,000 mcg PO DAILY RF: 0 Interventions: ED Discharge Assessment Last Done: 08/28/21 20:29 Discharge Date/Time: 08/28/21 20:31 Print Language: Portuguese
[2021-08-28] MEDS: Morphine Sulfate 4 MG/ML CARTRIDGE IVPUSH (15:58)
[2021-08-28] MEDS: ondansetron HCL 4 MG/2 ML VIAL IVPUSH ×2 (16:03→18:01)
[2021-08-28] MEDS: 0.9 % Sodium Chloride 1,000 ML 999 ML IV (16:03)
[2021-08-28 16:12] VITALS: BP 141/63; PULSE 59; RESP 14; TEMP 36.8; O2SAT 97
[2021-08-28] MEDS: iohexoL 350 MG/ML 100 ML INFUS..BTL IV (16:50)
[2021-08-28 17:12] LABS: Influenza A PCR NEGATIVE (Negative); Influenza B PCR NEGATIVE (Negative); Resp Syncy Virus RNA Qual PCR NEGATIVE (Negative); SARS COV2 PCR INHOUSE NEGATIVE (Negative)
[2021-08-28 19:24] VITALS: BP 118/62; PULSE 57; RESP 13; TEMP 36.8; O2SAT 94
[2021-08-28] MEDS: Butalb/Acetamin/Caff 50/325/40 TABLET 1 TAB PO (19:37)
== END 2021-08-28 20:31 | disposition home or self-care (01) ==
PROVIDERS: Physician Assistant; Emergency Provider Emergency Medicine Emergency Medical Services; PCP Internal Medicine
DX: K52.9 Noninfective gastroenteritis and colitis, unspecified (principal); G43.909 Migraine, unspecified, not intractable, without status migrainosus; R11.2 Nausea with vomiting, unspecified; I10 Essential (primary) hypertension; E11.9 Type 2 diabetes mellitus without complications; Z20.822 Contact with and (suspected) exposure to COVID-19; Z79.899 Other long term (current) drug therapy
CPT/HCPCS: 0241U; 36415; 71045; 74177; 80053; 85025; 87635; 96361; 96374; 96375; 96376; 99284; 99285; J2270; J2405; Q9967

== ENCOUNTER → 2021-09-02 11:09 | Outpatient (BNVA) | payer OTHER, SELFPAY | PROVIDERS: PCP Internal Medicine; Visit Provider Nurse Practitioner ==

== ENCOUNTER 2021-09-05 09:24 | Outpatient (REF) | payer OTHER, SELFPAY | END 2021-09-05 09:25 | disposition home or self-care (01) | LOC: HO.MDS 09:24 | PROVIDERS: PCP Internal Medicine; Visit Provider Hospitalist | DX: D80.1 Nonfamilial hypogammaglobulinemia (principal) | CPT/HCPCS: 96365; 96366; J2930 ==

== ENCOUNTER 2021-09-19 12:25 | Emergency (ER) | payer OTHER, SELFPAY ==
--- NOTE | ~2021-09-19 | XR_ITS ---
EXAMINATION: XR CHEST CLINICAL INFORMATION: Cough COMPARISON: Previous chest x-ray most recent August 2021 TECHNIQUE: 2 views of the chest were obtained. FINDINGS: No significant abnormality is noted involving the heart, lungs, mediastinum, bony thorax or soft tissues. XR/XR chest 2V IMPRESSION: Unremarkable examination.
[2021-09-19 13:30] VITALS: BP 113/54; PULSE 77; RESP 18; TEMP 36.4; O2SAT 96; BMI 38.0
[2021-09-19 14:32] LABS: Influenza A PCR NEGATIVE (Negative); Influenza B PCR NEGATIVE (Negative); Resp Syncy Virus RNA Qual PCR NEGATIVE (Negative); SARS COV2 PCR INHOUSE NEGATIVE (Negative)
[2021-09-19 14:57] VITALS: BP 123/44; PULSE 74; RESP 20; O2SAT 96
--- NOTE | 2021-09-19 14:58 | ED_ITS ---
HPI - URI/Sore Throat General Chief Complaint: Upper Respiratory Symptoms Stated Complaint: cough, diff breathing, body ache, headache Time Seen by Provider: 09/19/21 14:57 Source: patient Mode of arrival: ambulatory Limitations: no limitations History of Present Illness HPI Narrative: 51-year-old female past medical history significant for BABATUNDE, IBS, asthma, migraine headaches, diabetes, hypertension, TIA presents to the emergency department with complaints of progressively worsening cough x5 days. she states that she was primary care 3 days in her primary care provider that she was having asthma. She states that over past her cough has been progressively worsening, now it is very painful when she coughs. She states she is not coughing anything up. She states she has and nothing makes she states this is never happened to her before. Patient has noticed smoker. She denies chest pain, fevers, chills, nausea, vomiting, abdominal pain, weakness, headache, vision changes, dizziness. Patient states primary care gave her doxycycline, prednisone and inhaler/ nebulizer which she has been using but has noted no improvement. MD elicited complaint: cough Pertinent past history: asthma Onset (ago): day(s) (5) Consistency: intermittent Severity: severe Able to tolerate fluids by mouth: Yes Exacerbating factors: nothing Relieving factors: nothing Associated symptoms: cough Treatments prior to arrival: other ( Antibiotics, prednisone, inhaler/nebulizer.) Related Data Home Medications Medication Instructions Recorded Confirmed montelukast 10 mg tablet 10 mg PO BEDTIME 08/02/20 05/23/21 cyanocobalamin (vitamin B-12) 1,000 mcg PO DAILY 11/05/20 05/23/21 1,000 mcg tablet hydroxyzine HCl 25 mg tablet 1 tab PO TID PRN 12/12/20 05/23/21 cholecalciferol (vitamin D3) 25 25 mcg PO DAILY 03/19/21 05/23/21 mcg (1,000 unit) tablet losartan 100 mg tablet 1 tab PO DAILY 05/12/21 05/23/21 lidocaine 5 % topical patch 1 patch TOPICAL DAILY PRN 05/23/21 05/23/21 (Lidoderm) prednisone 10 mg tablet 10 mg PO DAILY 05/23/21 05/23/21 zolpidem 5 mg tablet (Ambien) 10 mg PO BEDTIME PRN tab 07/18/21 Previous Rx's Medication Instructions Recorded albuterol sulfate 90 mcg/actuation 1 inh INHALATION QID PRN #18 g 10/13/20 aerosol inhaler budesonide-formoterol HFA 160 2 puff INHALATION BID 30 Days 03/19/21 mcg-4.5 mcg/actuation aerosol #10.2 g inhaler (Symbicort) gabapentin 300 mg capsule 600 mg PO BID 30 Days #120 cap 04/14/21 (Neurontin) ondansetron 4 mg disintegrating 4 mg PO TID PRN 5 Days #10 tab 05/23/21 tablet aripiprazole 5 mg tablet (Abilify) 5 mg PO BEDTIME #30 tab 05/26/21 immune glob,gamm(IgG) 10 %-pro-IgA 40 g IV .monthly #400 ml 05/26/21 0 to 50 mcg/mL intravenous solution (Privigen) sumatriptan succinate 50 mg tablet 50 mg PO DAILY PRN #30 tab 05/26/21 oxycodone 5 mg tablet 5 mg PO Q8H PRN 30 Days #46 tab 06/26/21 apixaban 5 mg tablet 5 mg PO BID 30 Days #60 tab 06/27/21 omeprazole 40 mg capsule,delayed 40 mg PO BID 30 Days #60 cap 07/18/21 release sucralfate 1 gram tablet (Carafate) 2 g PO DAILY 30 Days #60 tab 07/18/21 ijuzpkqzjl-ukuhnvkmvgutb-yzwtimwp 1 cap PO Q4H PRN #20 cap 08/08/21 50 mg-300 mg-40 mg capsule (Fioricet) clotrimazole 1 % topical cream 1 appl TOPICAL BID PRN 14 Days #45 08/08/21 g benzonatate 200 mg capsule 200 mg PO TID PRN 30 Days #60 cap 08/20/21 loperamide 2 mg capsule (Imodium 2 mg PO QID PRN 2 Days #8 cap 08/28/21 A-D) tramadol 50 mg tablet 50 mg PO TID PRN 3 Days #9 tab 08/28/21 alosetron 1 mg tablet (Lotronex) 1 mg PO BID 30 Days #60 tab 09/02/21 azithromycin 250 mg tablet See Rx Instructions PO .COMPLEX #6 09/19/21 tab hydrocodone-homatropine 5 mg-1.5 5 ml PO Q6H PRN #20 ml 09/19/21 mg/5 mL (5 mL) oral syrup (Hycodan) Allergies Allergy/AdvReac Type Severity Reaction Status Date / Time No Known Allergies Allergy Verified 09/19/21 13:30 Review of Systems Review of Systems: Constitutional : No Weight loss, No Fever, No Chills, No Fatigue, No Malaise ENT/Mouth : No sore throat, No Rhinorrhea Eyes: No Eye Pain, No Swelling, No Redness Cardiovascular : No Chest Pain, No SOB, No Dyspnea on Exertion, No Orthopnea, No Edema, No Palpitations Respiratory : + Cough, No Sputum, No Wheezing Gastrointestinal : No Nausea, No Vomiting, No Diarrhea, No Constipation, No abdominal Pain, No Hematochezia, No Melena Genitourinary : No Dysuria, No Urinary Frequency, No Hematuria, Musculoskeletal : No joint pain, No Myalgias, No Joint Swelling Skin : No Skin Lesions, No rash Neuro : No Weakness, No Numbness, No Dizziness, No Headache All other systems reviewed and are negative PMFSH Past Medical History Attestation statement: The following information was validated with the patient. Source: old records reviewed and nursing notes reviewed Medical History (Updated 09/19/21 @ 15:05 by MEGA Gloria) Anemia Arthritis Asthma Asthma exacerbation Back pain Bronchitis Chronic pain syndrome Complex regional pain syndrome i of left lower limb Cough Depression Diabetic neuropathy Diet-controlled diabetes mellitus Disc degeneration, lumbosacral Dizziness Elevated lactic acid level Essential hypertension Fibromyalgia Headache Headache, migraine Hypogammaglobulinemia Hypothyroidism Laryngotracheitis Low back pain Morbid obesity Nausea vomiting and diarrhea BABATUNDE (obstructive sleep apnea) Pleuritic chest pain 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 Pulmonary embolism Sleep apnea 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 TIA (transient ischemic attack) Type 2 diabetes mellitus with unspecified complications Surgical History History of bariatric surgery History of cholecystectomy History of esophagogastroduodenoscopy (EGD) Hx of colonoscopy S/P total abdominal hysterectomy Family History Family History Mother Diabetes Stroke Family/Other Diabetes Father Diabetes Social History Social History Household Members: Spouse Housing: House Do you presently have visiting nurse or other home services: No Alcohol intake: unknown Patient Tobacco Use Status: Never used Tobacco Advance Directives: No Advance Directives Information Provided: No Advance Directives Date on File: 05/23/21 Patient : No service: No Current occupational status: unemployed and disabled Physical Exam Vital Signs: Vital Signs: Last Vital Signs Temp 97.6 F 09/19/21 13:30 Pulse 77 09/19/21 13:30 Resp 18 09/19/21 13:30 BP 113/54 L 09/19/21 13:30 Pulse Ox 96 09/19/21 13:30 Body Mass Index 38.0 Vital signs stable. Appearance: Alert.? Oriented X3.? No acute distress.?Patient coughing throughout interview Head: Normocephalic, atraumatic, no step-offs or deformities Eyes: Pupils equal, round and reactive to light.? ENT: Pharynx normal.? Neck: Normal inspection.? Neck supple.? CVS: Normal heart rate and rhythm.? Pulses normal.? Respiratory: No respiratory distress.? Breath sounds normal.? Abdomen: Soft and nontender.? Skin: Skin warm and dry.? Normal skin color.? Normal skin turgor.? Extremities: No lower extremity edema.? No calf ttp. 5/5 strength to bilateral upper and lower extremities Back: No midline tenderness, no C-spine tenderness, full range of motion, no CVA tenderness bilaterally Neuro: Oriented X 3.? No motor deficit.? No sensory deficit. Course Reevaluation(s) Reevaluation #1: Patient's chest x-ray is negative. Flu/ COVID/ RSV negative. I suspect that this is a viral bronchitis. Patient denies fevers, chills, chest pain, shortness of breath. patient is currently on prednisone, I have told her to continue all her medications except doxycycline. She should stop doxycycline insert taking azithromycin. I have also prescribed her Hycodan for the cough.Patient is safe for discharge with PCP follow up. She has been given strict return precautions. Time: 15:24 MDM - URI/Sore Throat MDM Narrative Medical decision making narrative: 1500 51-year-old female pmhx significant for BABATUNDE, IBS, migraine headaches, DM, HTN, TIA presents to the emergency department with complaints of progressively worsening dry cough x5 days. despite recent initiation of doxycycline, pr ednisone, inhalers/ nebulizers that were prescribed to her by her primary care provider 3 days ago. Patient is not a smoker. Physical examination is benign, except for patient coughing with a dry cough throughout the interview. Patient is tearful and tells me that she is very uncomfortable in that her cough all go away. Lungs are clear to auscultation. Patient's vital signs are stable, and during my examination she was saturating 99% on room air. She appears to be in no acute respiratory distress. Plan at this time is to obtain flu/ COVID/RSV. I will also obtain a chest x-ray to rule out pneumonia. Although unlikely. Medical Records Attestation: I reviewed the patient's medical records. Lab Data Attestation: I reviewed the patient's lab results. Labs: Lab Results 09/19/21 Range/Units 13:36 Influenza Type A (PCR) NEGATIVE (Negative) Influenza Type B (PCR) NEGATIVE (Negative) RSV RNA Qual (PCR) NEGATIVE (Negative) SARS-CoV-2 RNA (RT-PCR) NEGATIVE (Negative) Imaging Data Chest x-ray: Attestation: I personally reviewed and interpreted this imaging study as follows: Radiologist's impression: FINDINGS: No significant abnormality is noted involving the heart, lungs, mediastinum, bony thorax or soft tissues. XR/XR chest 2V IMPRESSION: Unremarkable examination. Critical Care Time Critical Care Time Critical Care Time: No Discharge Plan Discharge Clinical Impression: Bronchitis, Cough Patient Disposition: Home, Self-Care Instructions: Acute Bronchitis (ED), Acute Cough (ED) Additional Instructions: Take your medications as prescribed. If you were prescribed antibiotics today, it is important that you take your medication to their entirety, do not skip any doses, do not finish them early. Stop taking your doxycyline antibiotic. A new one was sent to your pharmacy Follow-up with your primary care provider this week. You tested negative for flu/covid/rsv Return to the emergency department with new or worsening symptoms. In case of emergency call 911 Prescriptions: New hydrocodone-homatropine [Hycodan] 5-1.5 mg/5 mL (5 mL) syrup 5 ml PO Q6H PRN (Reason: cough) Qty: 20 RF: 0 azithromycin 250 mg tablet See Rx Instructions PO .COMPLEX Qty: 6 RF: 0 No Action gabapentin [Neurontin] 300 mg capsule 600 mg PO BID 30 Days Qty: 120 RF: 11 immun glob G(IgG)-pro-IgA 0-50 [Privigen] 10 % solution 40 g IV .monthly Qty: 400 RF: 11 oxycodone 5 mg tablet 5 mg PO Q8H PRN (Reason: pain) 30 Days Qty: 46 RF: 0 benzonatate 200 mg capsule 200 mg PO TID PRN (Reason: cough) 30 Days Qty: 60 RF: 3 hydroxyzine HCl 25 mg tablet 1 tab PO TID PRN (Reason: Anxiety) RF: 0 ondansetron 4 mg tablet,disintegrating 4 mg PO TID PRN (Reason: nausea and vomiting) 5 Days Qty: 10 RF: 0 prednisone 10 mg tablet 10 mg PO DAILY RF: 0 lidocaine [Lidoderm] 5 % adhesive patch,medicated 1 patch topical DAILY PRN (Reason: Back Pain) RF: 0 aripiprazole [Abilify] 5 mg Tablet 5 mg PO BEDTIME Qty: 30 RF: 0 sumatriptan succinate 50 mg tablet 50 mg PO DAILY PRN (Reason: migraine headache) Qty: 30 RF: 0 montelukast 10 mg tablet 10 mg PO BEDTIME RF: 0 albuterol sulfate 90 mcg/actuation HFA aerosol inhaler 1 inh inhalation QID PRN (Reason: shortness of breath or wheezing) Qty: 18 RF: 0 losartan 100 mg tablet 1 tab PO DAILY RF: 0 [id number]-chpqsleaahqfz-ctzk [Fioricet] 50-300-40 mg capsule 1 cap PO Q4H PRN (Reason: pain) Qty: 20 RF: 0 clotrimazole 1 % cream 1 appl topical BID PRN (Reason: rash) 14 Days Qty: 45 RF: 0 tramadol 50 mg tablet 50 mg PO TID PRN (Reason: pain) 3 Days Qty: 9 RF: 0 loperamide [Imodium A-D] 2 mg capsule 2 mg PO QID PRN (Reason: loose stool) 2 Days Qty: 8 RF: 0 cholecalciferol (vitamin D3) 25 mcg (1,000 unit) tablet 25 mcg PO DAILY RF: 0 budesonide-formoterol [Symbicort] 160-4.5 mcg/actuation HFA aerosol inhaler 2 puff inhalation BID 30 Days Qty: 10.2 RF: 11 apixaban 5 mg tablet 5 mg PO BID 30 Days Qty: 60 RF: 6 zolpidem [Ambien] 5 mg tablet 10 mg PO BEDTIME PRN (Reason: insomnia) RF: 0 sucralfate [Carafate] 1 gram tablet 2 g PO DAILY 30 Days Qty: 60 RF: 2 omeprazole 40 mg capsule,delayed release(DR/EC) 40 mg PO BID 30 Days Qty: 60 RF: 3 cyanocobalamin (vitamin B-12) 1,000 mcg tablet 1,000 mcg PO DAILY RF: 0 alosetron [Lotronex] 1 mg tablet 1 mg PO BID 30 Days Qty: 60 RF: 6 Referrals: ED Physician,Generic [Emergency Provider] - 2 days
[2021-09-19] MEDS: Ketorolac Tromethamine 15 MG/ML VIAL 30 MG IM (15:24)
[2021-09-19 15:31] VITALS: RESP 18
== END 2021-09-19 15:32 | disposition home or self-care (01) ==
PROVIDERS: Emergency Provider Emergency Medicine Emergency Medical Services; PCP Internal Medicine
DX: J20.9 Acute bronchitis, unspecified (principal); Z20.822 Contact with and (suspected) exposure to COVID-19; E11.9 Type 2 diabetes mellitus without complications; I10 Essential (primary) hypertension; Z86.73 Personal history of transient ischemic attack (TIA), and cerebral infarction without residual deficits
CPT/HCPCS: 0241U; 36415; 71046; 96372; 99284; J1885

== ENCOUNTER 2021-10-05 21:06 | Emergency (ER) | payer OTHER, SELFPAY ==
--- NOTE | ~2021-10-05 | XR_ITS ---
EXAMINATION: XR CHEST CLINICAL INFORMATION: Cough and shortness of breath with question of pneumonia COMPARISON: None TECHNIQUE: 2 views of the chest were obtained. FINDINGS: No significant abnormality is noted involving the heart, lungs, mediastinum, bony thorax or soft tissues. XR/XR chest 2V IMPRESSION: Unremarkable examination.
[2021-10-05 21:16] VITALS: BP 137/76; PULSE 91; RESP 22; TEMP 37.4; O2SAT 98; BMI 38.3
[2021-10-05 22:04] LABS: Influenza A PCR NEGATIVE (Negative); Influenza B PCR NEGATIVE (Negative); Resp Syncy Virus RNA Qual PCR NEGATIVE (Negative); SARS COV2 PCR INHOUSE NEGATIVE (Negative)
[2021-10-06 00:28] LABS: Basophils Percent Auto 0.2 % (0-2); Eosinophils Percent Auto 0.2 % (0-4); Hematocrit 38.8 % (37.0-47.0); Hemoglobin 12.3 g/dl (12.0-16.0); Imm Gran Abs Auto 0.27 X10*3/uL (0.00-0.03); Imm Gran Pct Auto 2.2 % (0.0-0.4); Lymphocytes Absolute Auto 2.2 X10*3/uL (1.2-4.9); Lymphocytes Percent Auto 17.3 % (20-40); MANUAL DIFF FLAG NO; Mean Corpuscular HGB Conc 31.7 g/dl (31.0-35.0); Mean Corpuscular Hemoglobin 30.3 pg (27.0-33.0); Mean Corpuscular Volume 95.6 fL (80.0-98.0); Mean Platelet Volume 8.3 fL (9.4-12.3); Monocytes Absolute Auto 0.8 X10*3/uL (0.1-1.2); Monocytes Percent Auto 6.6 % (2-11); Neutrophils Absolute Auto 9.1 x10*3/uL (2.0-8.3); Neutrophils Percent Auto 73.5 % (45-73); Platelet Count 273 X10*3/uL (160-400); Red Blood Count 4.06 X10*6/uL (4.20-5.50); Red Cell Distribution Width 16.8 % (11.0-16.0); White Blood Count 12.4 X10*3/uL (4.8-10.8)
[2021-10-06 00:48] LABS: Alanine Aminotransferase 46 U/L (0-31); Albumin Level 3.7 g/dL (3.5-5.0); Alkaline Phosphatase 76 U/L (39-117); Anion Gap 12 (12-20); Aspartate Amino Transferase 36 U/L (5-31); Bilirubin Total 0.3 mg/dL (0.0-1.0); Blood Urea Nitrogen 28 mg/dL (9-16); Calcium 9.1 mg/dL (8.4-10.2); Carbon Dioxide 22 mmol/L (22-29); Chloride 111 mmol/L (96-108); Creatinine Clr Calc Pharmacy 54.5; Estimated Glomerular Filt Rate 50; Glucose Random 62 mg/dL (60-115); Potassium 4.4 mmol/L (3.3-5.1); Sodium 141 mmol/L (135-145)
--- NOTE | 2021-10-06 00:51 | ED_ITS ---
HPI - SOB/Dyspnea General Chief Complaint: Dyspnea Stated Complaint: ?Bronchitis Time Seen by Provider: 10/05/21 23:26 Source: patient Mode of arrival: ambulatory Limitations: language barrier (Yakut speaking only) History of Present Illness HPI Narrative: 51-year-old female who presents emergency department for e valuation of cough, shortness of breath and chest pain. The patient states that she has had the symptoms for approximately 3 weeks. She states that she has seen her PCP and she was also seen here in the emergency department. She states that she has been treated with multiple doses of prednisone and antibiotics without relief for symptoms. She states that over the past 2-3 days she has had a cough which is persistent and has been keeping her up at night. The cough is nonproductive. She is also complaining of bilateral pleuritic chest pain which is worse with coughing and breathing. She complains of dyspnea on exertion, body aches, subjective fevers and weakness. The patient was treated with azithromycin Z-Hang on 09/19/2021. She is currently taking doxycycline 100 mg twice a day started on 09/29/2021. She states that she is using her albuterol inhaler every 2 hours with no relief of her cough or shortness of breath. She has also been using her albuterol nebulizer 3 to 4 times a day with no relief for symptoms. Related Data Home Medications Medication Instructions Recorded Confirmed montelukast 10 mg tablet 10 mg PO BEDTIME 08/02/20 05/23/21 cyanocobalamin (vitamin B-12) 1,000 mcg PO DAILY 11/05/20 05/23/21 1,000 mcg tablet hydroxyzine HCl 25 mg tablet 1 tab PO TID PRN 12/12/20 05/23/21 cholecalciferol (vitamin D3) 25 25 mcg PO DAILY 03/19/21 05/23/21 mcg (1,000 unit) tablet losartan 100 mg tablet 1 tab PO DAILY 05/12/21 05/23/21 lidocaine 5 % topical patch 1 patch TOPICAL DAILY PRN 05/23/21 05/23/21 (Lidoderm) prednisone 10 mg tablet 10 mg PO DAILY 05/23/21 05/23/21 zolpidem 5 mg tablet (Ambien) 10 mg PO BEDTIME PRN tab 07/18/21 Previous Rx's Medication Instructions Recorded albuterol sulfate 90 mcg/actuation 1 inh INHALATION QID PRN #18 g 10/13/20 aerosol inhaler budesonide-formoterol HFA 160 2 puff INHALATION BID 30 Days 03/19/21 mcg-4.5 mcg/actuation aerosol #10.2 g inhaler (Symbicort) gabapentin 300 mg capsule 600 mg PO BID 30 Days #120 cap 04/14/21 (Neurontin) ondansetron 4 mg disintegrating 4 mg PO TID PRN 5 Days #10 tab 05/23/21 tablet aripiprazole 5 mg tablet (Abilify) 5 mg PO BEDTIME #30 tab 05/26/21 immune glob,gamm(IgG) 10 %-pro-IgA 40 g IV .monthly #400 ml 05/26/21 0 to 50 mcg/mL intravenous solution (Privigen) sumatriptan succinate 50 mg tablet 50 mg PO DAILY PRN #30 tab 05/26/21 oxycodone 5 mg tablet 5 mg PO Q8H PRN 30 Days #46 tab 06/26/21 apixaban 5 mg tablet 5 mg PO BID 30 Days #60 tab 06/27/21 omeprazole 40 mg capsule,delayed 40 mg PO BID 30 Days #60 cap 07/18/21 release sucralfate 1 gram tablet (Carafate) 2 g PO DAILY 30 Days #60 tab 07/18/21 wcpbqggyez-ieknvoqnhwzll-xbisyjoe 1 cap PO Q4H PRN #20 cap 08/08/21 50 mg-300 mg-40 mg capsule (Fioricet) clotrimazole 1 % topical cream 1 appl TOPICAL BID PRN 14 Days #45 08/08/21 g loperamide 2 mg capsule (Imodium 2 mg PO QID PRN 2 Days #8 cap 08/28/21 A-D) tramadol 50 mg tablet 50 mg PO TID PRN 3 Days #9 tab 08/28/21 alosetron 1 mg tablet (Lotronex) 1 mg PO BID 30 Days #60 tab 09/02/21 azithromycin 250 mg tablet See Rx Instructions PO .COMPLEX #6 09/19/21 tab hydrocodone-homatropine 5 mg-1.5 5 ml PO Q6H PRN #20 ml 09/19/21 mg/5 mL (5 mL) oral syrup (Hycodan) benzonatate 200 mg capsule 200 mg PO TID PRN 30 Days #60 cap 09/29/21 doxycycline monohydrate 100 mg 100 mg PO BID 14 Days #28 tab 09/29/21 tablet prednisone 20 mg tablet See Rx Instructions PO DAILY 10 09/29/21 Days #15 tab oxycodone-acetaminophen 5 mg-325 1 tab PO Q4H PRN #10 tab 10/06/21 mg tablet (Percocet) prednisone 20 mg tablet 60 mg PO DAILY 5 Days #15 tab 10/06/21 Allergies Allergy/AdvReac Type Severity Reaction Status Date / Time No Known Allergies Allergy Verified 09/19/21 13:30 Review of Systems Review of Systems: Yes all other systems are reviewed and are negative [facility] Past Medical History [facility] Narrative: Social history: She denies tobacco, alcohol and drug use. 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 TIA (transient ischemic attack) Type 2 diabetes mellitus with unspecified complications Surgical History History of bariatric surgery History of cholecystectomy History of esophagogastroduodenoscopy (EGD) Hx of colonoscopy S/P total abdominal hysterectomy Family History Family History Mother Diabetes Stroke Family/Other Diabetes Father Diabetes Social History Social History Household Members: Spouse Housing: House Do you presently have visiting nurse or other home services: No Alcohol intake: unknown Patient Tobacco Use Status: Never used Tobacco Advance Directives: No Advance Directives Information Provided: No Advance Directives Date on File: 05/23/21 service: No Current occupational status: unemployed and disabled Physical Exam Vital Signs: Vital Signs: Last Vital Signs Temp 99.3 F 10/05/21 21:16 Pulse 91 10/05/21 21:16 Resp 18 10/06/21 00:58 BP 137/76 10/05/21 21:16 Pulse Ox 98 10/05/21 21:16 BMI result Body Mass Index 38.3 Const: Other: Awake, alert, female patient, the patient has a persistent, nonstop, cough, she is only able to talk in 1-2 word sentences secondary to her cough. HENMT: Head: Yes normal to inspection, Yes normocephalic and Yes atraumatic Ears: external ears normal General nose exam: Normal external nose present Face and sinus: Yes normal facial exam Mouth: Normal oral and palatal mucosa present Throat: Yes posterior oropharynx normal Eyes: General: appearance normal, both eyes and all related structures Pupils: Equal, round and reactive pupils present Neck: Neck: Yes normal visual inspection, Yes no lymphadenopathy, Yes trachea midline and Yes supple Chest: Chest palpation & inspection: normal inspection of the chest and normal palpation of entire chest wall Resp: Other: Persistent cough as described above, breath sounds symmetric bilaterally, diffuse wheezing and diffuse rhonchi with no rales Cardio: Rate: regular rate Rhythm: regular rhythm Heart sounds: S1 normal heart sound present, S2 normal heart sound present and no murmurs GI: Inspection: Yes normal to inspection Palpation (GI): Soft to palpation, nontender and no guarding Auscultation: normal bowel sounds : General: Yes no CVA tenderness Back/Spine/Pelvis: Back: no CVA tenderness Skin: General skin exam: no rashes or lesions noted Neuro: Cranial nerves: Yes CN's II-XII intact bilaterally and Yes Equal, round and reactive pupils present Cognition (Neuro): normal cognition Motor exam (neuro): 5/5 motor strength present throughout Extrem: General: Yes normal to inspection Psych: Appearance: grossly normal Speech and movement: Normal speech and movement present Affect: normal affect Attitude: cooperative Thought process: Normal thought process present Thought content: Normal thought content present Course Course Course Narrative: 51-year-old female with who presents emergency department for evaluation of persistent cough x3 weeks, shortness of breath, dyspnea on exertion, subjective fever, body aches and pleuritic chest pain. Patient has been seen by your PCP and in the ED and has been treated with multiple courses prednisone. She completed a course of Zithromax in the middle of September and is currently being treated with doxycycline 100 mg twice a day with no relief for symptoms. She has had to use her albuterol inhaler nebulizer frequently over the last several days with no improvement of her symptoms. Initial vital signs revealed an elevated respiratory rate of 22, O2 saturation was 98% on room air. Physical examination reveals a persistent, nonproductive cough, lung exam revealed diffuse wheezing and rhonchi. I ordered a CBC, CMP, COVID-19, influenza, RSV, chest x-ray. Patient will be treated with an albuterol nebulizer 5 mg, Solu-Medrol 125 mg IV and morphine 4 mg IV. 0101: Laboratory evaluation: WBC was elevated 12,400, BUN is elevated 28, elevated AST and ALT of 36 and 46, chest x-ray was unremarkable. The patient got minimal improvement with the above treatment. The patient was ordered to get Hicodin orally for her cough. I did discuss discharge with the patient she states that her insurance does not cover this medication. The patient will be prescribed Percocet 03/3251 pill every 4 hours as needed for chest pain and for cough. She was also given a prescription for prednisone 60 mg once a day for 5 days. She was advised to complete her course of doxycycline and to continue taking Tessalon Perles for her cough as well. She was given verbal and printed instructions and discharged home. MDM - SOB/Dyspnea Lab Data Result diagrams: 10/06/21 00:23 10/06/21 00:23 Labs: Lab Results 10/05/21 10/06/21 10/06/21 Range/Units : 00: 00:23 WBC 12.4 H (4.8-10.8) X10*3/uL RBC 4.06 L (4.20-5.50) X10*6/uL Hgb 12.3 (12.0-16.0) g/dl Hct 38.8 (37.0-47.0) % MCV 95.6 (80.0-98.0) fL MCH 30.3 (27.0-33.0) pg MCHC 31.7 (31.0-35.0) g/dl RDW 16.8 H (11.0-16.0) % Plt Count 273 (160-400) X10*3/uL MPV 8.3 L (9.4-12.3) fL Immature Gran % (Auto) 2.2 H (0.0-0.4) % Neut % (Auto) 73.5 H (45-73) % Lymph % (Auto) 17.3 L (20-40) % Grady % (Auto) 6.6 (2-11) % Eos % (Auto) 0.2 (0-4) % Baso % (Auto) 0.2 (0-2) % Lymph # (Auto) 2.2 (1.2-4.9) X10*3/uL Grady # (Auto) 0.8 (0.1-1.2) X10*3/uL Eos # (Auto) 0.0 (0.0-0.4) X10*3/uL Baso # (Auto) 0.0 (0.0-0.2) X10*3/uL Abs Immat Gran (auto) 0.27 H (0.00-0.03) X10*3/uL Absolute Neuts (auto) 9.1 H (2.0-8.3) x10*3/uL Absolute Nucleated RBC 0.000 (0.0-0.012) X10*3/uL Nucleated RBC % (auto) 0.0 (0.0-0.2) /100WBC Sodium 141 (135-145) mmol/L Potassium 4.4 (3.3-5.1) mmol/L Chloride 111 H (96-108) mmol/L Carbon Dioxide 22 (22-29) mmol/L Anion Gap 12 (12-20) BUN 28 H (9-16) mg/dL Creatinine 1.15 (0.5-1.4) mg/dL Estim Creat Clear Calc 54.5 Estimated GFR 50 Random Glucose 62 (60-115) mg/dL Calcium 9.1 D (8.4-10.2) mg/dL Total Bilirubin 0.3 (0.0-1.0) mg/dL AST 36 H D (5-31) U/L ALT 46 H (0-31) U/L Alkaline Phosphatase 76 D (39-117) U/L Total Protein 6.0 L (6.5-8.0) g/dL Albumin 3.7 (3.5-5.0) g/dL Influenza Type A (PCR) NEGATIVE (Negative) Influenza Type B (PCR) NEGATIVE (Negative) RSV RNA Qual (PCR) NEGATIVE (Negative) SARS-CoV-2 RNA (RT-PCR) NEGATIVE (Negative) Discharge Plan Discharge Clinical Impression: Cough, persistent Asthma exacerbation Qualifiers: Asthma severity: mild Patient Disposition: Home, Self-Care Instructions: Asthma (ED), Acute Cough (ED) Additional Instructions: Your laboratory evaluation was unremarkable. Your chest x-ray revealed no evidence of pneumonia. Take prednisone 20 mg pills, 3 pills once a day for 5 days. Finish your course of doxycycline as prescribed. Continue taking your Tessalon Perles (benzinoate) as prescribed. For pain and cough take Percocet 5/325, 1 pill every 4-6 hours as needed Follow-up with your doctor in 2 days. Please return to the emergency department if your symptoms get worse or if you develop any symptoms that are concerning to you. Prescriptions: New prednisone 20 mg tablet 60 mg PO DAILY 5 Days Qty: 15 RF: 0 oxycodone-acetaminophen [Percocet] 5-325 mg tablet 1 tab PO Q4H PRN (Reason: pain,cough) Qty: 10 RF: 0 No Action gabapentin [Neurontin] 300 mg capsule 600 mg PO BID 30 Days Qty: 120 RF: 11 immun glob G(IgG)-pro-IgA 0-50 [Privigen] 10 % solution 40 g IV .monthly Qty: 400 RF: 11 oxycodone 5 mg tablet 5 mg PO Q8H PRN (Reason: pain) 30 Days Qty: 46 RF: 0 doxycycline monohydrate 100 mg tablet 100 mg PO BID 14 Days Qty: 28 RF: 0 prednisone 20 mg tablet See Rx Instructions PO DAILY 10 Days Qty: 15 RF: 0 benzonatate 200 mg capsule 200 mg PO TID PRN (Reason: cough) 30 Days Qty: 60 RF: 3 hydroxyzine HCl 25 mg tablet 1 tab PO TID PRN (Reason: Anxiety) RF: 0 ondansetron 4 mg tablet,disintegrating 4 mg PO TID PRN (Reason: nausea and vomiting) 5 Days Qty: 10 RF: 0 prednisone 10 mg tablet 10 mg PO DAILY RF: 0 lidocaine [Lidoderm] 5 % adhesive patch,medicated 1 patch topical DAILY PRN (Reason: Back Pain) RF: 0 aripiprazole [Abilify] 5 mg Tablet 5 mg PO BEDTIME Qty: 30 RF: 0 sumatriptan succinate 50 mg tablet 50 mg PO DAILY PRN (Reason: migraine headache) Qty: 30 RF: 0 montelukast 10 mg tablet 10 mg PO BEDTIME RF: 0 albuterol sulfate 90 mcg/actuation HFA aerosol inhaler 1 inh inhalation QID PRN (Reason: shortness of breath or wheezing) Qty: 18 RF: 0 losartan 100 mg tablet 1 tab PO DAILY RF: 0 jlqnnouqnq-fcllmjrnlrcnu-ntbv [Fioricet] 50-300-40 mg capsule 1 cap PO Q4H PRN (Reason: pain) Qty: 20 RF: 0 clotrimazole 1 % cream 1 appl topical BID PRN (Reason: rash) 14 Days Qty: 45 RF: 0 tramadol 50 mg tablet 50 mg PO TID PRN (Reason: pain) 3 Days Qty: 9 RF: 0 loperamide [Imodium A-D] 2 mg capsule 2 mg PO QID PRN (Reason: loose stool) 2 Days Qty: 8 RF: 0 hydrocodone-homatropine [Hycodan] 5-1.5 mg/5 mL (5 mL) syrup 5 ml PO Q6H PRN (Reason: cough) Qty: 20 RF: 0 azithromycin 250 mg tablet See Rx Instructions PO .COMPLEX Qty: 6 RF: 0 cholecalciferol (vitamin D3) 25 mcg (1,000 unit) tablet 25 mcg PO DAILY RF: 0 budesonide-formoterol [Symbicort] 160-4.5 mcg/actuation HFA aerosol inhaler 2 puff inhalation BID 30 Days Qty: 10.2 RF: 11 apixaban 5 mg tablet 5 mg PO BID 30 Days Qty: 60 RF: 6 zolpidem [Ambien] 5 mg tablet 10 mg PO BEDTIME PRN (Reason: insomnia) RF: 0 sucralfate [Carafate] 1 gram tablet 2 g PO DAILY 30 Days Qty: 60 RF: 2 omeprazole 40 mg capsule,delayed release(DR/EC) 40 mg PO BID 30 Days Qty: 60 RF: 3 cyanocobalamin (vitamin B-12) 1,000 mcg tablet 1,000 mcg PO DAILY RF: 0 alosetron [Lotronex] 1 mg tablet 1 mg PO BID 30 Days Qty: 60 RF: 6
[2021-10-06 00:58] VITALS: RESP 18
[2021-10-06] MEDS: Morphine Sulfate 4 MG/ML CARTRIDGE IVPUSH (00:58)
[2021-10-06] MEDS: methylPREDNISolone Sod Succ 125 MG/2 ML VIAL IVPUSH (00:58)
[2021-10-06] MEDS: HYDROcodone/Homat 5/1.5/5 ML 5 ML SYRUP PO (02:37)
[2021-10-06] MEDS: predniSONE 20 MG TABLET 60 MG PO (02:43)
[2021-10-06] MEDS: Albuterol Sulfate (0.083%) 2.5 MG/3 ML VIAL.NEB 5 MG INHALE (02:43)
== END 2021-10-06 04:48 | disposition home or self-care (01) ==
PROVIDERS: Emergency Provider Emergency Medicine Emergency Medical Services; PCP Internal Medicine
DX: R05.3 Chronic cough (principal); J45.909 Unspecified asthma, uncomplicated; E11.9 Type 2 diabetes mellitus without complications; I10 Essential (primary) hypertension; Z86.73 Personal history of transient ischemic attack (TIA), and cerebral infarction without residual deficits; Z20.822 Contact with and (suspected) exposure to COVID-19
CPT/HCPCS: 0241U; 36415; 71046; 80053; 85025; 96374; 96375; 99283; 99284; J2270; J2930

== ENCOUNTER 2021-10-11 21:16 | Inpatient (IN) | payer OTHER, SELFPAY ==
--- NOTE | ~2021-10-11 | CT_ITS ---
EXAMINATION: CT HEAD WITHOUT CONTRAST CLINICAL INFORMATION: Headaches, persistent cough COMPARISON: 05/23/2021 TECHNIQUE: Contiguous axial imaging was performed from the skull base to vertex without intravenous administration of contrast. This CT examination was performed using dose optimization techniques as appropriate, variously including the following: *Automated exposure control *Adjustment of mA and/or kV according to patient size (this includes techniques or standardized protocols for targeted exams where dose is matched to indication/reason for exam; i.e. extremities or head) *Use of iterative reconstruction technique DLP: 1546 mGy-cm FINDINGS: There is no evidence of acute intracranial hemorrhage or territorial infarction. No abnormal mass effect or midline shift is seen. Hua to white matter differentiation is well preserved. No extra-axial fluid collections are identified. The ventricles are normal in size. There is mild periventricular and patchy subcortical white matter hypoattenuation as also noted on recent MRI 05/24/2021. The osseous structures and soft tissues are normal. The mastoid air cells and visualized portions of the paranasal sinuses are well aerated. CT/CT head/brain wo con IMPRESSION: No acute intracranial pathology.
--- NOTE | ~2021-10-11 | CT_ITS ---
EXAMINATION: CT ABDOMEN AND PELVIS WITHOUT CONTRAST CLINICAL INFORMATION: Left upper quadrant pain, tenderness COMPARISON: 08/28/2021 TECHNIQUE: Multidetector volumetric imaging was performed from the superior aspect of the liver through the pubic symphysis. Sagittal and coronal reformatted images were obtained on the technologist's workstation. This CT examination was performed using dose optimization techniques as appropriate, variously including the following: *Automated exposure control *Adjustment of mA and/or kV according to patient size (this includes techniques or standardized protocols for targeted exams where dose is matched to indication/reason for exam; i.e. extremities or head) *Use of iterative reconstruction technique DLP: 1546 mGy-cm FINDINGS: LUNG BASES: The visualized lung bases are unremarkable. LIVER, GALLBLADDER, AND BILIARY TREE: The liver is normal in size, shape, and attenuation. No focal hepatic lesion or biliary ductal dilatation is present. Patient is status post cholecystectomy. PANCREAS: Unremarkable. SPLEEN: Unremarkable. ADRENAL GLANDS: Unremarkable. KIDNEYS AND URETERS: No hydronephrosis or obstructing calculus bilaterally. Redemonstrated bilateral renal cysts; no follow-up recommended. BLADDER: Unremarkable. GASTROINTESTINAL TRACT: Status post gastric bypass surgery. No evidence of bowel obstruction or wall thickening. The appendix is unremarkable. No free fluid or free air is seen. ABDOMINAL WALL: No significant hernia is appreciated. LYMPH NODES: Normal. VASCULAR: Unremarkable. PELVIC VISCERA: Patient appears to be status post hysterectomy. OSSEOUS STRUCTURES: Redemonstrated hemangioma in the L4 vertebral body. CT/CT abdomen pelvis wo con IMPRESSION: No acute findings identified in the abdomen/pelvis. Fleischner guidelines were followed.
--- NOTE | ~2021-10-11 | XR_ITS ---
EXAMINATION: XR CHEST CLINICAL INFORMATION: Cough. COMPARISON: Most recent chest radiograph dated 10/05/2021. TECHNIQUE: 2 views of the chest were obtained. FINDINGS: The lungs are clear. The cardiomediastinal silhouette is normal in size. There is no pleural effusion or pneumothorax. No acute osseous abnormality. XR/XR chest 2V IMPRESSION: No acute cardiopulmonary findings.
[2021-10-11 21:50] VITALS: BP 137/65; PULSE 84; RESP 18; TEMP 36.7; O2SAT 94; BMI 37.8
[2021-10-11 22:47] LABS: Influenza A PCR NEGATIVE (Negative); Influenza B PCR NEGATIVE (Negative); Resp Syncy Virus RNA Qual PCR NEGATIVE (Negative); SARS COV2 PCR INHOUSE NEGATIVE (Negative)
[2021-10-12] VITALS (10 sets, daily range): BP systolic 123–146; BP diastolic 45–67; PULSE 70–108; RESP 16–20; TEMP 36.8–37.2; O2SAT 96–98
[2021-10-12] MEDS: Albuterol Sulfate (0.083%) 2.5 MG/3 ML VIAL.NEB 5 MG INHALE (00:33)
[2021-10-12] MEDS: Albuterol/Iprat 2.5/0.5MG 3 ML AMPUL.NEB INHALE (00:34)
[2021-10-12] MEDS: guaiFEN/Codeine SF 200/20/10ML 10 ML LIQUID PO ×3 (00:41→22:13)
[2021-10-12] MEDS: dexAMETHasone 2 MG TABLET 10 MG PO (00:41)
--- NOTE | 2021-10-12 01:07 | ED_ITS ---
HPI - URI/Sore Throat General Chief Complaint: Upper Respiratory Symptoms Stated Complaint: diff breathing, coughing Time Seen by Provider: 10/12/21 00:20 Source: patient Mode of arrival: ambulatory Limitations: no limitations History of Present Illness HPI Narrative: Patient's history of asthma with chronic bronchitis been sick for last 1 month been on prednisone and course of antibiotic just finished taking doxycycline and Zithromax comes here for increased cough for last few days not getting better patient using inhaler at home a nebulizing treatment her much relief saturating 94% at room air afebrile while talking to RN patient was persistently coughing patient has history of PE in the past last CT scan on 12/22 was negative for PE patient on Eliquis Related Data Home Medications Medication Instructions Recorded Confirmed montelukast 10 mg tablet 10 mg PO BEDTIME 08/02/20 05/23/21 cyanocobalamin (vitamin B-12) 1,000 mcg PO DAILY 11/05/20 05/23/21 1,000 mcg tablet hydroxyzine HCl 25 mg tablet 1 tab PO TID PRN 12/12/20 05/23/21 cholecalciferol (vitamin D3) 25 25 mcg PO DAILY 03/19/21 05/23/21 mcg (1,000 unit) tablet losartan 100 mg tablet 1 tab PO DAILY 05/12/21 05/23/21 lidocaine 5 % topical patch 1 patch TOPICAL DAILY PRN 05/23/21 05/23/21 (Lidoderm) prednisone 10 mg tablet 10 mg PO DAILY 05/23/21 05/23/21 zolpidem 5 mg tablet (Ambien) 10 mg PO BEDTIME PRN tab 07/18/21 Previous Rx's Medication Instructions Recorded albuterol sulfate 90 mcg/actuation 1 inh INHALATION QID PRN #18 g 10/13/20 aerosol inhaler budesonide-formoterol HFA 160 2 puff INHALATION BID 30 Days 03/19/21 mcg-4.5 mcg/actuation aerosol #10.2 g inhaler (Symbicort) gabapentin 300 mg capsule 600 mg PO BID 30 Days #120 cap 04/14/21 (Neurontin) ondansetron 4 mg disintegrating 4 mg PO TID PRN 5 Days #10 tab 05/23/21 tablet aripiprazole 5 mg tablet (Abilify) 5 mg PO BEDTIME #30 tab 05/26/21 immune glob,gamm(IgG) 10 %-pro-IgA 40 g IV .monthly #400 ml 05/26/21 0 to 50 mcg/mL intravenous solution (Privigen) sumatriptan succinate 50 mg tablet 50 mg PO DAILY PRN #30 tab 05/26/21 oxycodone 5 mg tablet 5 mg PO Q8H PRN 30 Days #46 tab 06/26/21 apixaban 5 mg tablet 5 mg PO BID 30 Days #60 tab 06/27/21 omeprazole 40 mg capsule,delayed 40 mg PO BID 30 Days #60 cap 07/18/21 release qqbwixnvsx-dermbzahixgaq-qvttunnm 1 cap PO Q4H PRN #20 cap 08/08/21 50 mg-300 mg-40 mg capsule (Fioricet) clotrimazole 1 % topical cream 1 appl TOPICAL BID PRN 14 Days #45 08/08/21 g loperamide 2 mg capsule (Imodium 2 mg PO QID PRN 2 Days #8 cap 08/28/21 A-D) tramadol 50 mg tablet 50 mg PO TID PRN 3 Days #9 tab 08/28/21 alosetron 1 mg tablet (Lotronex) 1 mg PO BID 30 Days #60 tab 09/02/21 azithromycin 250 mg tablet See Rx Instructions PO .COMPLEX #6 09/19/21 tab hydrocodone-homatropine 5 mg-1.5 5 ml PO Q6H PRN #20 ml 09/19/21 mg/5 mL (5 mL) oral syrup (Hycodan) benzonatate 200 mg capsule 200 mg PO TID PRN 30 Days #60 cap 09/29/21 doxycycline monohydrate 100 mg 100 mg PO BID 14 Days #28 tab 09/29/21 tablet prednisone 20 mg tablet See Rx Instructions PO DAILY 10 09/29/21 Days #15 tab oxycodone-acetaminophen 5 mg-325 1 tab PO Q4H PRN #10 tab 10/06/21 mg tablet (Percocet) prednisone 20 mg tablet 60 mg PO DAILY 5 Days #15 tab 10/06/21 sucralfate 1 gram tablet 2 g PO DAILY #60 tab 10/10/21 codeine 10 mg-guaifenesin 100 mg/5 10 ml PO Q4-6H PRN #237 ml 10/12/21 mL oral liquid dexamethasone 6 mg tablet 6 mg PO DAILY #7 tab 10/12/21 (Decadron) Allergies Allergy/AdvReac Type Severity Reaction Status Date / Time No Known Allergies Allergy Verified 10/11/21 21:50 Review of Systems Review of Systems: Yes all other systems are reviewed and are negative PENDING SALE TO [facility] Past Medical History 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 TIA (transient ischemic attack) Type 2 diabetes mellitus with unspecified complications Surgical History History of bariatric surgery History of cholecystectomy History of esophagogastroduodenoscopy (EGD) Hx of colonoscopy S/P total abdominal hysterectomy Family History Family History Mother Diabetes Stroke Family/Other Diabetes Father Diabetes Social History Social History Household Members: Spouse Housing: House Do you presently have visiting nurse or other home services: No Alcohol intake: unknown Patient Tobacco Use Status: Never used Tobacco Advance Directives: No Advance Directives Date on File: 05/23/21 Patient : No service: No Current occupational status: unemployed and disabled Physical Exam Vital Signs: Vital Signs: Last Vital Signs Temp 98.1 F 10/11/21 21:50 Pulse 108 H 10/12/21 00:32 Resp 18 10/12/21 00:32 BP 137/65 10/11/21 21:50 Pulse Ox 94 10/11/21 21:50 BMI result Body Mass Index 37.8 Appearance: Alert. Oriented X3. Anxious frequently coughing ENT: Pharynx normal. Oral Mucosa moist Neck: Normal inspection. Neck supple. CVS: Normal heart rate and rhythm. Pulses normal. Respiratory: No respiratory distress. Equal air entry bilateral, prolonged expiration, wheezing bilateral diffuse with frequent cough, no rales Abdomen: Soft and nontender. Bowel sounds are present, no mass palpable, Skin: Skin warm and dry. Normal skin color. Normal skin turgor. Extremities: No lower extremity edema. No calf tenderness Neuro: Oriented X 3. MDM - URI/Sore Throat MDM Narrative Medical decision making narrative: Patient with chronic bronchitis multiple course of antibiotics and steroids chest x-ray negative COVID negative had multiple respiratory panels in the past which was negative per history she has this problem for many years will discharge patient home on cough syrup and steroid At the time of discharge patient was not feeling good still coughing a lot with history of hypogammaglobinemia diabetes chronic recurrent bronchitis and still coughing after treatments will admit the patient for further evaluation labs will be drawn and patient will be given IV Rocephin Lab Data Attestation: I reviewed the patient's lab results. Labs: Lab Results 10/11/21 Range/Units 21:46 Influenza Type A (PCR) NEGATIVE (Negative) Influenza Type B (PCR) NEGATIVE (Negative) RSV RNA Qual (PCR) NEGATIVE (Negative) SARS-CoV-2 RNA (RT-PCR) NEGATIVE (Negative) Discharge Plan Discharge Clinical Impression: SOB (shortness of breath) Chronic bronchitis Qualifiers: Chronic bronchitis type: simple Qualified Code(s): J41.0 - Simple chronic bronchitis Patient Disposition: Admitted As Inpatient
--- NOTE | 2021-10-12 02:02 | PC.NURSE ---
This RN to bedside w/ director call to dc patient, pt stating she does not feel any better and was prescribed similar meds last time she was discharged w/o relief. MD Gilliam notified. Discharge cancelled, pt to be evaluated for admission per
[2021-10-12] MEDS: Albuterol Sulfate (0.083%) 2.5 MG/3 ML VIAL.NEB 7.5 MG INHALE (02:24)
[2021-10-12 02:45] LABS: MANUAL DIFF FLAG NO
[2021-10-12] MEDS: Magnesium Sulfate/H2O 2 GM/50 ML PIGGYBACK IV (02:50)
[2021-10-12 02:53] LABS: Basophils Percent Auto 0.1 % (0-2); Eosinophils Percent Auto 0.2 % (0-4); Hemoglobin 12.2 g/dl (12.0-16.0); Imm Gran Abs Auto 0.15 X10*3/uL (0.00-0.03); Imm Gran Pct Auto 1.6 % (0.0-0.4); Lymphocytes Absolute Auto 0.8 X10*3/uL (1.2-4.9); Lymphocytes Percent Auto 8.4 % (20-40); Mean Corpuscular HGB Conc 32.1 g/dl (31.0-35.0); Mean Corpuscular Hemoglobin 30.6 pg (27.0-33.0); Mean Corpuscular Volume 95.2 fL (80.0-98.0); Mean Platelet Volume 8.4 fL (9.4-12.3); Monocytes Absolute Auto 0.2 X10*3/uL (0.1-1.2); Monocytes Percent Auto 2.4 % (2-11); Neutrophils Absolute Auto 8.3 x10*3/uL (2.0-8.3); Neutrophils Percent Auto 87.3 % (45-73); Platelet Count 234 X10*3/uL (160-400); Red Blood Count 3.99 X10*6/uL (4.20-5.50); Red Cell Distribution Width 17.2 % (11.0-16.0); White Blood Count 9.5 X10*3/uL (4.8-10.8)
[2021-10-12 03:03] LABS: Lactic Acid 5.6 mmol/L (0.5-2.0)
[2021-10-12] MEDS: cefTRIAXone sodium 1 GM in 0.9 % Sodium Chloride 50 ML IV (03:08)
[2021-10-12 03:23] LABS: Anion Gap 16 (12-20); Blood Urea Nitrogen 20 mg/dL (9-16); C Reactive Protein 0.57 mg/dL (< or = 0.50); Carbon Dioxide 19 mmol/L (22-29); Chloride 107 mmol/L (96-108); Creatinine Clr Calc Pharmacy 60.2; Estimated Glomerular Filt Rate 51; Glucose Random 189 mg/dL (60-115); Potassium 3.9 mmol/L (3.3-5.1); Sodium 138 mmol/L (135-145)
[2021-10-12 03:29] LABS: Erythrocyte Sedimentation Rate 12 MM/HR (0-20)
--- NOTE | 2021-10-12 04:40 | P.HPHOSP_ITS ---
History of Present Illness Date of Service: 10/12/21 Chief Complaint: cough 57-year-old female with a past medical history of hypertension, hyperlipidemia, diabetes, diabetic neuropathy, chronic pain syndrome, complex regional pain syndrome of the left lower lung, anxiety, depression, lumbar spine disc disease, fibromyalgia, depression, sleep apnea, pulmonary embolism on Eliquis, asthma, anxiety, hypogammaglobinemia, TIA, migraine headaches presented to the hospital today with a chief complaint of coughing. Patient reports that over the past 1 month she has been having persistent coughing, has multiple episodes of cough with coughing spells every day; has seen a by CT and garment finisher as outpatient and finished 2 courses of antibiotics, also tried DayQuil, NyQuil, Benadryl, cough suppressants, steroids with no significant improvement. Mentioned that secondary to fall she has posttussive chest discomfort as well as abdominal discomfort; also complains of headaches. Denies any fevers and chills. Denies any sick contacts. Denies any nausea vomiting or diarrhea. Review of all other systems is negative except mentioned above ER course: Per ER team patient chest x-ray showed no acute findings; labs essentially benign; patient noted to have persistent coughing; did not improve with cough suppressants; decided to admit to the hospital for further management. 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 TIA (transient ischemic attack) Type 2 diabetes mellitus with unspecified complications Family History Mother Diabetes Stroke Family/Other Diabetes Father Diabetes Pertinent family history: as mentioned above Surgical History History of bariatric surgery History of cholecystectomy History of esophagogastroduodenoscopy (EGD) Hx of colonoscopy S/P total abdominal hysterectomy Social History Household Members: Spouse Housing: House Do you presently have visiting nurse or other home services: No Alcohol intake: unknown Patient Tobacco Use Status: Never used Tobacco Advance Directives: No Advance Directives Date on File: 05/23/21 Patient : No service: No Current occupational status: unemployed and disabled Meds Allergies Allergy/AdvReac Type Severity Reaction Status Date / Time No Known Allergies Allergy Verified 10/11/21 21:50 Active Medications: Current Medications Guaifenesin/Codeine Phosphate (Guaifen/Codeine Sf 200/20/10ml 10 Ml Liquid) 10 ml PO Q6H PRN PRN Reason: Cough Sodium Chloride (Ns) 1,000 mls @ 75 mls/hr IVCONT .[id number] OMERO Loratadine (Loratadine 10 Mg Tablet) 10 mg PO DAILY OMERO Melatonin (Melatonin 3 Mg Tablet) 6 mg PO BEDTIME PRN PRN Reason: Insomnia Senna (Sennosides 8.6 Mg Tablet) 17.2 mg PO BEDTIME PRN PRN Reason: Constipation Sodium Chloride (0.9 % Sodium Chloride Flush 3 Ml Syringe) 3 ml IVFLUSH QSHIFT OMERO Home Medications Medication Instructions Recorded Confirmed Last Taken Type montelukast 10 mg tablet 10 mg PO BEDTIME 08/02/20 10/12/21 05/22/21 History cyanocobalamin (vitamin B-12) 1,000 mcg PO DAILY 11/05/20 10/12/21 05/22/21 History 1,000 mcg tablet hydroxyzine HCl 25 mg tablet 1 tab PO TID PRN 12/12/20 10/12/21 05/22/21 History cholecalciferol (vitamin D3) 25 25 mcg PO DAILY 03/19/21 10/12/21 05/22/21 History mcg (1,000 unit) tablet losartan 100 mg tablet 1 tab PO DAILY 05/12/21 10/12/21 05/22/21 History zolpidem 5 mg tablet (Ambien) 10 mg PO BEDTIME PRN tab 07/18/21 10/12/21 Unknown History doxycycline monohydrate 100 mg 1 tab PO BID 10/12/21 10/12/21 Unknown History tablet escitalopram oxalate 10 mg tablet 1 tab PO DAILY 10/12/21 10/12/21 Unknown History lorazepam 0.5 mg tablet 1 tab PO DAILY PRN 10/12/21 10/12/21 Unknown History quetiapine 200 mg tablet 1 tab PO BEDTIME 10/12/21 10/12/21 Unknown History Physical Exam Vital Signs and Narrative: Vital Signs: Last Vital Signs Temp 98.1 F 10/11/21 21:50 Pulse 103 H 10/12/21 03:25 Resp 20 10/12/21 03:25 BP 136/66 10/12/21 03:25 Pulse Ox 97 10/12/21 03:25 BMI result Body Mass Index 37.8 Gen: Appears be in no acute distress HEENT: NCAT, Moist mucosa. Pulmonary: Vesicular breath sounds, fair air entry CVS: Normal S1-S2 Abdomen: BS+, Soft, Tender in the left upper quadrant; no guarding no rigidity Extremities: Warm well perfused Neuro: Alert and awake. grossly nonfocal Results Labs CBC and Chem 7: 10/12/21 02:40 10/12/21 06:17 Labs: Laboratory Results - last 24 hr 10/11/21 10/12/21 10/12/21 21:46 02:40 02:40 MCV 95.2 MCH 30.6 MCHC 32.1 RDW 17.2 H Plt Count 234 MPV 8.4 L Immature Gran % (Auto) 1.6 H Neut % (Auto) 87.3 H Lymph % (Auto) 8.4 L [place] % (Auto) 2.4 Eos % (Auto) 0.2 Baso % (Auto) 0.1 Lymph # (Auto) 0.8 L [place] # (Auto) 0.2 Eos # (Auto) 0.0 Baso # (Auto) 0.0 Abs Immat Gran (auto) 0.15 H Absolute Neuts (auto) 8.3 Absolute Nucleated RBC 0.000 Nucleated RBC % (auto) 0.0 ESR Anion Gap 16 Estim Creat Clear Calc 60.2 Estimated GFR 51 Random Glucose 189 H Lactic Acid Calcium 9.0 C-Reactive Protein 0.57 H Influenza Type A (PCR) NEGATIVE Influenza Type B (PCR) NEGATIVE RSV RNA Qual (PCR) NEGATIVE SARS-CoV-2 RNA (RT-PCR) NEGATIVE 10/12/21 10/12/21 02:40 02:40 MCV MCH MCHC RDW Plt Count MPV Immature Gran % (Auto) Neut % (Auto) Lymph % (Auto) [place] % (Auto) Eos % (Auto) Baso % (Auto) Lymph # (Auto) [place] # (Auto) Eos # (Auto) Baso # (Auto) Abs Immat Gran (auto) Absolute Neuts (auto) Absolute Nucleated RBC Nucleated RBC % (auto) ESR 12 Anion Gap Estim Creat Clear Calc Estimated GFR Random Glucose Lactic Acid 5.6 H* Calcium C-Reactive Protein Influenza Type A (PCR) Influenza Type B (PCR) RSV RNA Qual (PCR) SARS-CoV-2 RNA (RT-PCR) Imaging Radiologist's Impressions: Impressions Chest X-Ray 10/11/21 22:03 IMPRESSION: No acute cardiopulmonary findings. Assessment and Plan (1) Chronic bronchitis: Qualifiers: Chronic bronchitis type: simple Qualified Code(s): J41.0 - Simple ch ronic bronchitis Status: Acute 57-year-old female with a past medical history of hypertension, hyperlipidemia, diabetes, diabetic neuropathy, chronic pain syndrome, complex regional pain syndrome of the left lower lung, anxiety, depression, lumbar spine disc disease, fibromyalgia, depression, sleep apnea, pulmonary embolism on Eliquis, asthma, anxiety, hypogammaglobinemia, TIA, migraine headaches presented to the hospital today with a chief complaint of coughing. Chronic persistent coughing: Patient reports that symptoms have been going on for about a month. ? allergic in etiology. patient denies any fevers or sputum production. patient recently Received azithromycin and doxycycline. Complains of posttussive discomfort/ headaches/abdominal discomfort- will obtain a CT head. will also obtain CT abdomen cough suppressants; GI cocktail x1 Pulmonology consult for further recommendations patient is already on gabapentin which is sometimes used as a trial for persistent coughing. Patient has been afebrile and no leukocytosis. Patient empirically received ceftriaxone in the ER. Lactic acidosis: Gentle IV fluids. Likely type B lactic acidosis in the setting of nebulizations. repeat lactate levels were 9. Will given normal saline bolus., IV thiamine. Follow-up repeat lactate levels. History of pulmonary embolism: Patient on Eliquis. Continue History of diabetes: Insulin sliding scale For all other chronic conditions, home medications will be continued Code status: Full code Quality Stroke Does the patient have a stroke diagnosis?: No VTE Prior VTE?: No VTE Risk Level:: Medical - moderate - high VTE Device Contraindication: Treatment Not Indicated VTE Drug Contraindication: N/A - Med Ordered
[2021-10-12 04:47] LABS: Reflex Lactate? Lactic Acid Added
[2021-10-12] MEDS: Mag&Al/Sim/Diphenhyd/Lidocaine 10 ML ORAL.SUSP PO (04:51)
[2021-10-12 06:39] LABS: Basophils Percent Auto 0.1 % (0-2); Eosinophils Percent Auto 0.1 % (0-4); Hematocrit 40.2 % (37.0-47.0); Hemoglobin 12.6 g/dl (12.0-16.0); Imm Gran Abs Auto 0.23 X10*3/uL (0.00-0.03); Imm Gran Pct Auto 1.9 % (0.0-0.4); Lymphocytes Absolute Auto 0.5 X10*3/uL (1.2-4.9); MANUAL DIFF FLAG SCAN; Mean Corpuscular HGB Conc 31.3 g/dl (31.0-35.0); Mean Corpuscular Hemoglobin 30.3 pg (27.0-33.0); Mean Corpuscular Volume 96.6 fL (80.0-98.0); Mean Platelet Volume 8.7 fL (9.4-12.3); Monocytes Absolute Auto 0.2 X10*3/uL (0.1-1.2); Monocytes Percent Auto 1.5 % (2-11); Neutrophils Percent Auto 92.4 % (45-73); Platelet Count 249 X10*3/uL (160-400); Red Blood Count 4.16 X10*6/uL (4.20-5.50); Red Cell Distribution Width 17.4 % (11.0-16.0); SCAN SMEAR FLAG 1; White Blood Count 11.9 X10*3/uL (4.8-10.8)
[2021-10-12 06:42] LABS: Anion Gap 20 (12-20); Blood Urea Nitrogen 18 mg/dL (9-16); Carbon Dioxide 15 mmol/L (22-29); Chloride 108 mmol/L (96-108); Creatinine Clr Calc Pharmacy 61.9; Estimated Glomerular Filt Rate 53; Glucose Random 208 mg/dL (60-115); Potassium 4.2 mmol/L (3.3-5.1); Sodium 139 mmol/L (135-145); ~Lactic Acid-LAB USE ONLY 9.6 mmol/L (0.5-2.0)
[2021-10-12 06:59] LABS: SLIDE REVIEW VERIFIED
--- NOTE | 2021-10-12 08:02 | PHA.MEDREC ---
Pharmacy Consult ? Medication Reconciliation RN completed med rec, pharmacy reviewed
[2021-10-12 08:20] LABS: Reflex Lactate? 2 Y
[2021-10-12] MEDS: Apixaban 5 MG TABLET PO ×2 (08:58→22:09)
[2021-10-12] MEDS: Omeprazole 40 MG CAPSULE.DR PO ×2 (08:58→22:07)
[2021-10-12] MEDS: hydrOXYzine HCL 25 MG TABLET PO (08:58)
[2021-10-12] MEDS: Sucralfate 1 GM TABLET 2 GM PO (08:58)
[2021-10-12] MEDS: Loratadine 10 MG TABLET PO (08:58)
[2021-10-12] MEDS: Benzonatate 100 MG CAPSULE 200 MG PO ×3 (08:58→22:13)
[2021-10-12] MEDS: Gabapentin 300 MG CAPSULE 600 MG PO ×2 (08:58→22:08)
[2021-10-12] MEDS: Thiamine HCL 200 MG in 0.9 % Sodium Chloride 100 ML 204 MG IV (08:59)
[2021-10-12] MEDS: 0.9 % Sodium Chloride Flush 3 ML SYRINGE IVFLUSH (09:00)
[2021-10-12] MEDS: 0.9 % Sodium Chloride 1,000 ML 999 ML IV (09:00)
[2021-10-12 09:11] LABS: Glucose, Whole Blood 123 mg/dL (60-115)
--- NOTE | 2021-10-12 10:45 | PC.NURSE ---
pt seen by dr. beckett, pt aware of plan of care.
--- NOTE | 2021-10-12 11:27 | PM.EVENT ---
Event Note Date of Service: 10/12/21 Event Note: I saw and examined patient, she is complaining about lots of pain with cough, and pain everwhere, no respiratory diffuclty, lungs no wheezes, it appears that she has acute bronchitis, will start levaquin. Pulmonology consultation not indicated at this site, robitussin with codein for cough, morphine for pain and if better by tomorrow, discharge. O/w assessment per H and P from this morning.
[2021-10-12 13:37] LABS: Glucose, Whole Blood 107 mg/dL (60-115)
[2021-10-12] MEDS: Losartan Potassium 50 MG TABLET 100 MG PO (14:10)
[2021-10-12] MEDS: Cyanocobalamin (Vitamin B-12) 1,000 MCG TABLET 1000 MCG PO (14:11)
[2021-10-12] MEDS: Morphine Sulfate 2 MG/ML CARTRIDGE IVPUSH ×2 (14:11→20:02)
[2021-10-12] MEDS: Escitalopram Oxalate 10 MG TABLET PO (14:11)
[2021-10-12] MEDS: levoFLOXacin/D5W 500 MG/100 ML PIGGYBACK 100 MG IV (14:12)
[2021-10-12] MEDS: SUMAtriptan succinate 50 MG TABLET PO (14:38)
[2021-10-12] MEDS: Albuterol Sulfate 90 MCG 8 GM INHALER 1 PUFF INHALE (15:25)
[2021-10-12] MEDS: 0.9 % Sodium Chloride 1,000 ML 75 ML IVCONT (16:10)
--- NOTE | 2021-10-12 16:23 | PC.NURSE ---
MEDICATED FOR PERSISTENT NON PRODUCTIVE COUGH, SHE REMAINS ON A CLEAR LIQUID DIET . IV FLUIDS ARE INFUSING.
[2021-10-12 18:35] LABS: Glucose, Whole Blood 73 mg/dL (60-115)
[2021-10-12 19:00] LABS: Glucose, Whole Blood 111 mg/dL (60-115)
[2021-10-12] MEDS: Montelukast Sodium 10 MG TABLET PO (22:08)
[2021-10-12] MEDS: QUEtiapine Fumarate 200 MG TABLET PO (22:08)
[2021-10-12 22:22] LABS: Glucose, Whole Blood 134 mg/dL (60-115)
[2021-10-12] MEDS: Zolpidem Tartrate 5 MG TABLET 10 MG PO (23:15)
[2021-10-13 00:04] VITALS: BP 105/65; PULSE 88; RESP 16; TEMP 36.1
--- NOTE | 2021-10-13 01:13 | PC.NURSE ---
pt c/o 06/10 generalized pain from coughing pt has no prn Tylenol in DEC and is not due for next does of prn Morphine until 199 hospitalist notified per hospitalist, ok to give next dose of Morphine at this time
[2021-10-13 01:19] VITALS: RESP 16
[2021-10-13] MEDS: Morphine Sulfate 2 MG/ML CARTRIDGE IVPUSH ×2 (01:19→07:39)
[2021-10-13] MEDS: guaiFEN/Codeine SF 200/20/10ML 10 ML LIQUID 5 ML PO (03:46)
[2021-10-13 05:12] VITALS: PULSE 80
[2021-10-13 07:18] VITALS: BP 117/55; PULSE 61; RESP 15; TEMP 36.9; O2SAT 97
[2021-10-13 07:40] VITALS: BP 117/55
[2021-10-13] MEDS: Cyanocobalamin (Vitamin B-12) 1,000 MCG TABLET 1000 MCG PO (07:40)
[2021-10-13] MEDS: Escitalopram Oxalate 10 MG TABLET PO (07:40)
[2021-10-13] MEDS: Losartan Potassium 50 MG TABLET 100 MG PO (07:40)
[2021-10-13] MEDS: Gabapentin 300 MG CAPSULE 600 MG PO (07:40)
[2021-10-13] MEDS: Loratadine 10 MG TABLET PO (07:40)
[2021-10-13] MEDS: Sucralfate 1 GM TABLET 2 GM PO (07:40)
[2021-10-13] MEDS: Cholecalciferol (Vitamin D3) 25 MCG TABLET PO (07:40)
[2021-10-13] MEDS: Apixaban 5 MG TABLET PO (07:41)
[2021-10-13] MEDS: Omeprazole 40 MG CAPSULE.DR PO (07:41)
[2021-10-13 07:47] LABS: Glucose, Whole Blood 86 mg/dL (60-115)
[2021-10-13] MEDS: 0.9 % Sodium Chloride 1,000 ML 75 ML IVCONT (07:48)
--- NOTE | 2021-10-13 09:18 | P.DS_ITS ---
DS: Providers Provider Date of Service: 10/13/21 Date of admission: 10/12/21 11:25 Primary care physician: Claudia Villatoro MD DS: Diagnosis Discharge Diagnosis (1) Chronic bronchitis: Status: Acute DS: Summary Hospital Course Hospital Course: Chief Complaint:? cough ?57-year-old female with a past medical history of hypertension, hyperlipidemia, diabetes, diabetic neuropathy, chronic pain syndrome, complex regional pain syndrome of the left lower lung, anxiety, depression, lumbar spine disc disease, fibromyalgia, depression, sleep apnea, pulmonary embolism on Eliquis, asthma, anxiety, hypogammaglobinemia, TIA, migraine headaches presented to the hospital today with a chief complaint of coughing.? Patient reports that over the past 1 month she has been having persistent coughing, has multiple episodes of cough with coughing spells every day; has seen a by CT and receivables specialist as outpatient and finished 2 courses of antibiotics, also tried DayQuil, NyQuil, Benadryl, cough suppressants, steroids with no significant improvement.? Mentioned that secondary to fall she has posttussive chest discomfort as well as abdominal discomfort; also complains of headaches.? Denies any fevers and chills.? Denies any sick contacts.? Denies any nausea vomiting or diarrhea.? Review of all other systems is negative except mentioned above ER course: Per ER team patient chest x-ray showed no acute findings; labs essentially benign; patient noted to have persistent coughing; did not improve with cough suppressants; decided to admit to the hospital for further management. Hospital course: Patient was admitted and treated for acute bronchitis associated with cough, headache, there was no hypoxia, had lactic acidosis likely related to albuterol use, there was no evidence of sepsis. The was treated with IV Levaquin for bronchitis, inhalers and cough medication. She feels better and will be discharged to complete course of Levaqin. Time Spent with Patient Time attestation: Total time spent providing and/or coordinating discharge services: Discharge coordination time: Greater than 30 minutes Quality: Stroke Does the patient have a stroke diagnosis?: No Physical Exam Verdana 4l Vital Signs: Verdana 4d Verdana 4d Vital Signs: Verdana 4d Verdana 4Bd Last Vital Signs Verdana 4d Records Management Technician New 4d Records Management Technician New 4d Temp 98.5 F 10/13/21 07:18 Hollie Avelar 4d Pulse 61 10/13/21 07:18 Hollie Stock 4d Resp 15 10/13/21 07:18 BP 117/55 L 10/13/21 07:40 Pulse Ox 97 10/13/21 07:18 BMI result Body Mass Index 37.8 DS: Data Data Completed and Pending Labs on day of discharge: Laboratory Results - last 24 hr 10/12/21 10/12/21 10/12/21 08:47 08:47 13:33 POC Glucose 107 Lactic Acid Cancelled Lactic Acid Fup @ 4Hr 7.0 H* 10/12/21 10/12/21 10/12/21 18:30 18:55 22:18 POC Glucose 73 111 134 H Lactic Acid Lactic Acid Fup @ 4Hr 10/13/21 07:13 POC Glucose 86 Lactic Acid Lactic Acid Fup @ 4Hr Preliminary micro results at discharge 10/12/21 02:40 Blood Culture - Preliminary Blood - Venous No growth after 24 hours. 10/12/21 02:40 Blood Culture - Preliminary Blood - Venous No growth after 24 hours. Discharge Plan Discharge Anticipated Discharge Date/Time: 10/13/21 09:10 Patient Disposition: Home, Self-Care Discharge Diagnosis: Acute on chronic bronchitis Referrals: Claudia Villatoro MD [Primary Care Provider] - 1 Week Discharge Medications: New codeine-guaifenesin 10-100 mg/5 mL liquid 10 ml PO Q4-6H PRN (Reason: cough) Qty: 237 RF: 0 dexamethasone [Decadron] 6 mg tablet 6 mg PO DAILY Qty: 7 RF: 0 tramadol 50 mg tablet 50 mg PO BID PRN (Reason: pain) Qty: 10 RF: 0 levofloxacin 500 mg tablet 500 mg PO DAILY 76 Days Qty: 76 RF: 0 Continued gabapentin [Neurontin] 300 mg capsule 600 mg PO BID 30 Days Qty: 120 RF: 11 immun glob G(IgG)-pro-IgA 0-50 [Privigen] 10 % solution 40 g IV .monthly Qty: 400 RF: 11 benzonatate 200 mg capsule 200 mg PO TID PRN (Reason: cough) 30 Days Qty: 60 RF: 3 sucralfate 1 gram tablet 2 g PO DAILY Qty: 60 RF: 2 hydroxyzine HCl 25 mg tablet 1 tab PO TID PRN (Reason: Anxiety) RF: 0 ondansetron 4 mg tablet,disintegrating 4 mg PO TID PRN (Reason: nausea and vomiting) 5 Days Qty: 10 RF: 0 sumatriptan succinate 50 mg tablet 50 mg PO DAILY PRN (Reason: migraine headache) Qty: 30 RF: 0 montelukast 10 mg tablet 10 mg PO BEDTIME RF: 0 albuterol sulfate 90 mcg/actuation HFA aerosol inhaler 1 inh inhalation QID PRN (Reason: shortness of breath or wheezing) Qty: 18 RF: 0 losartan 100 mg tablet 1 tab PO DAILY RF: 0 nablccqksi-cvkobbczlxrkm-edfb [Fioricet] 50-300-40 mg capsule 1 cap PO Q4H PRN (Reason: pain) Qty: 20 RF: 0 clotrimazole 1 % cream 1 appl topical BID PRN (Reason: rash) 14 Days Qty: 45 RF: 0 loperamide [Imodium A-D] 2 mg capsule 2 mg PO QID PRN (Reason: loose stool) 2 Days Qty: 8 RF: 0 quetiapine 200 mg tablet 1 tab PO BEDTIME RF: 0 escitalopram oxalate 10 mg tablet 1 tab PO DAILY RF: 0 lorazepam 0.5 mg tablet 1 tab PO DAILY PRN (Reason: anxiety) RF: 0 Anoro Ellipta 62.5-25 mcg/actuation blister with device 1 puff inhalation DAILY RF: 0 cholecalciferol (vitamin D3) 25 mcg (1,000 unit) tablet 25 mcg PO DAILY RF: 0 budesonide-formoterol [Symbicort] 160-4.5 mcg/actuation HFA aerosol inhaler 2 puff inhalation BID 30 Days Qty: 10.2 RF: 11 apixaban 5 mg tablet 5 mg PO BID 30 Days Qty: 60 RF: 6 zolpidem [Ambien] 5 mg tablet 10 mg PO BEDTIME PRN (Reason: insomnia) RF: 0 omeprazole 40 mg capsule,delayed release(DR/EC) 40 mg PO BID 30 Days Qty: 60 RF: 3 cyanocobalamin (vitamin B-12) 1,000 mcg tablet 1,000 mcg PO DAILY RF: 0 alosetron [Lotronex] 1 mg tablet 1 mg PO BID 30 Days Qty: 60 RF: 6 Discontinued doxycycline monohydrate 100 mg tablet 100 mg PO BID 14 Days Qty: 28 RF: 0 Discharge Orders: Discharge Order (Routine); Ordered 10/13/21 Ordered By: Prosper Jiménez Diet: advance to usual diet Activity on Discharge: As tolerated Stand Alone Forms: Patient Portal Discharge page Care Plan Goals: Full recovery from bronchitis Health Concerns: chronic bronchitis Plan of Treatment: Take levaquin as directed and follow up with your Doctor in a week, call for appointment Assessment: As above
--- NOTE | 2021-10-13 09:59 | MHC.CM.PN ---
pt lives in [facility], she has a partner that stays there often but not all of the time. she also has a daughater, eliezer, who is her residential care facility manager and cares for her mom daily. pt has 2 hrs of residential care facility manager per day via [facility], but her daughter admits to being at her moms house for much longer. the patient uses a walker and also the assistance of her residential care facility manager c ambulation. the residential care facility manager will provide transportation home at sc. pt denies the need for vna at sc. sc plan is for patient to return home c residential care facility manager. cm to cont. to follow.
[2021-10-13] MEDS: guaiFEN/Codeine SF 200/20/10ML 10 ML LIQUID PO (10:04)
--- NOTE | 2021-10-13 10:06 | PC.NURSE ---
pt given prn for cough. tolerating po w/o issue. pt remains weak otherwise, resting in stretcher comfortably. vss.
[2021-10-13 10:07] VITALS: O2SAT 98
[2021-10-13 10:12] LABS: Lactic Acid 0.9 mmol/L (0.5-2.0)
== END 2021-10-13 11:59 | disposition home or self-care (01) | DRG 145 ==
LOC: HO.ED 10-12 02:04 → HO.EDOVER 10-12 06:00
PROVIDERS: Admitting Provider Hospitalist; Emergency Provider Internal Medicine; PCP Internal Medicine; Visit Provider Internal Medicine
DX: J20.9 Acute bronchitis, unspecified (principal); E11.40 Type 2 diabetes mellitus with diabetic neuropathy, unspecified; J41.0 Simple chronic bronchitis; E78.5 Hyperlipidemia, unspecified; G89.4 Chronic pain syndrome; E66.01 Morbid (severe) obesity due to excess calories; Z68.37 Body mass index [BMI] 37.0-37.9, adult; Z86.711 Personal history of pulmonary embolism; Z20.822 Contact with and (suspected) exposure to COVID-19; Z98.84 Bariatric surgery status; Z79.01 Long term (current) use of anticoagulants; Z79.899 Other long term (current) drug therapy
CPT/HCPCS: 0241U; 36415; 70450; 71046; 74176; 80048; 82947; 83605; 85025; 85652; 86140; 87040; 94644; 94645; 96365; 96375; 99285; J0696; J1956; J2270; J3411; J3475; J8540

== ENCOUNTER 2021-10-20 12:49 | Outpatient (REF) | payer OTHER, SELFPAY | END 2021-10-20 12:50 | disposition home or self-care (01) | LOC: HO.MDS 12:49 | PROVIDERS: PCP Internal Medicine; Visit Provider Hospitalist | DX: D80.1 Nonfamilial hypogammaglobulinemia (principal) | CPT/HCPCS: 96365; 96366; J1559 ==

== ENCOUNTER → 2021-11-03 13:15 | Outpatient (BNVA) | payer OTHER, SELFPAY | PROVIDERS: PCP Internal Medicine; Visit Provider Hospitalist | DX: J44.9 Chronic obstructive pulmonary disease, unspecified (principal); G47.33 Obstructive sleep apnea (adult) (pediatric); M19.90 Unspecified osteoarthritis, unspecified site; I27.82 Chronic pulmonary embolism; R05.9 Cough, unspecified | CPT/HCPCS: 99212 ==

== ENCOUNTER 2021-11-12 12:04 | Inpatient (IN) | payer OTHER, SELFPAY ==
--- NOTE | ~2021-11-12 | CT_ITS ---
EXAMINATION: CT CHEST WITHOUT CONTRAST CLINICAL INFORMATION: Cough. COMPARISON: 12/21/2020 TECHNIQUE: Multidetector volumetric CT imaging of the chest was done. Axial MIP volume rendering provided. Sagittal and coronal reformatted images were obtained. This CT examination was performed using dose optimization techniques as appropriate, variously including the following: *Automated exposure control *Adjustment of mA and/or kV according to patient size (this includes techniques or standardized protocols for targeted exams where dose is matched to indication/reason for exam; i.e. extremities or head) *Use of iterative reconstruction technique DLP: 325 mGy-cm FINDINGS: LUNGS: Expiratory phase image acquisition. Subsegmental atelectasis present in the left upper lobe. No discrete consolidation or evidence of pneumonitis. Mild diffuse bronchial thickening and scattered endobronchial secretions are present suggestive of bronchitis. Couple punctate calcified granulomata within right lower lobe. No suspicious pulmonary nodules. MEDIASTINUM: Normal heart size. No pericardial effusion. No mediastinal or hilar adenopathy. Calcified mediastinal and right hilar lymph nodes indicative of prior granulomatous disease. Fluid present within the cervical and upper thoracic esophagus. PLEURA: There is no pleural effusion. No pleural mass or thickening. AXILLA: No lymphadenopathy. UPPER ABDOMEN: Diffuse hepatic steatosis. Smitha-en-Y gastrojejunostomy. Cholecystectomy. OSSEOUS STRUCTURES: No acute or suspicious osseous abnormalities. CT/CT chest wo con IMPRESSION: * No focal consolidation or evidence of pneumonitis. * Mild diffuse bronchial wall thickening and scattered and bronchial secretions could represent bronchitis. * There is fluid present within the lower cervical and upper thoracic esophagus which could predispose the patient to aspiration.
--- NOTE | ~2021-11-12 | CT_ITS ---
EXAMINATION: CT ABDOMEN AND PELVIS WITHOUT CONTRAST CLINICAL INFORMATION: Follow-up ileus. Abdominal pain. COMPARISON: Previous CT of the abdomen and pelvis most recent November 2021 TECHNIQUE: Multidetector volumetric imaging was performed from the superior aspect of the liver through the pubic symphysis. Sagittal and coronal reformatted images were obtained on the technologist's workstation. This CT examination was performed using dose optimization techniques as appropriate, variously including the following: *Automated exposure control *Adjustment of mA and/or kV according to patient size (this includes techniques or standardized protocols for targeted exams where dose is matched to indication/reason for exam; i.e. extremities or head) *Use of iterative reconstruction technique DLP: 691 mGy-cm FINDINGS: LUNG BASES: The visualized lung bases are unremarkable. LIVER, GALLBLADDER, AND BILIARY TREE: The liver is normal in size, shape, and attenuation. No focal hepatic lesion or biliary ductal dilatation is present. The gallbladder has been removed. PANCREAS: Unremarkable. SPLEEN: Unremarkable. ADRENAL GLANDS: Unremarkable. KIDNEYS AND URETERS: The lateral renal cysts, left greater than right. Largest cyst measures 4 cm in the upper pole of the left kidney. No imaging follow-up needed. BLADDER: Not optimally distended GASTROINTESTINAL TRACT: Surgical changes from gastric bypass. No dilated loops of bowel or air-fluid levels are seen. Previously identified dilatation of the proximal colon is no longer seen. No free air or ascites is seen. ABDOMINAL WALL: There is new increased soft tissue thickening, low-attenuation in between the muscle layers and stranding of the overlying subcutaneous fat along the left lateral abdominal wall. Given history of trauma this may represent hematoma. This is new or increased compared to 10/12/2022 exam. LYMPH NODES: Normal. VASCULAR: Unremarkable. PELVIC VISCERA: The uterus appears to have been removed. No pelvic mass is seen. OSSEOUS STRUCTURES: Probable AVN of the left femoral head. Stable lucent lesion in the L4 vertebral body probably representing a hemangioma. No fracture is seen. CT/CT abdomen pelvis wo con IMPRESSION: New soft tissue thickening, fluid in between the muscle layers and stranding of the overlying subcutaneous fat along the left lateral abdominal wall. Given history of recent trauma this probably represents a hematoma. Differential would include myositis/infection. Clinical correlation recommended. Resolved dilatation of the proximal colon from 11/12/2020 exam. Postoperative changes following gastric bypass. Renal cysts. Fleischner guidelines were followed.
--- NOTE | ~2021-11-12 | CT_ITS ---
EXAMINATION: CT ABDOMEN AND PELVIS WITHOUT CONTRAST CLINICAL INFORMATION: Trauma. COMPARISON: Previous CT of the abdomen and pelvis most recent October 2021 TECHNIQUE: Multidetector volumetric imaging was performed from the superior aspect of the liver through the pubic symphysis. Sagittal and coronal reformatted images were obtained on the technologist's workstation. This CT examination was performed using dose optimization techniques as appropriate, variously including the following: *Automated exposure control *Adjustment of mA and/or kV according to patient size (this includes techniques or standardized protocols for targeted exams where dose is matched to indication/reason for exam; i.e. extremities or head) *Use of iterative reconstruction technique DLP: 970 mGy-cm FINDINGS: LUNG BASES: The visualized lung bases are unremarkable. LIVER, GALLBLADDER, AND BILIARY TREE: The liver is normal in size, shape, and attenuation. No focal hepatic lesion or biliary ductal dilatation is present. The gallbladder has been removed. PANCREAS: Unremarkable. SPLEEN: Unremarkable. ADRENAL GLANDS: Unremarkable. KIDNEYS AND URETERS: There are bilateral renal cysts that are stable. No imaging follow-up. Largest cyst measures 4 cm in the upper pole of the left kidney. These are otherwise unremarkable BLADDER: Unremarkable. GASTROINTESTINAL TRACT: The right colon and transverse colon is slightly distended. No transition zone is seen and this probably represents an ileus. There are postoperative changes from gastric bypass. The appendix is unremarkable. No ascites or free air is seen. ABDOMINAL WALL: No significant hernia is appreciated. LYMPH NODES: Normal. VASCULAR: Unremarkable. PELVIC VISCERA: No pelvic mass. OSSEOUS STRUCTURES: There is AVN of the left femoral head. There is a lucent lesion in the L4 vertebral body with vertical striations probably representing a benign hemangioma. There is facet arthritis at L5-S1. CT/CT abdomen pelvis wo con IMPRESSION: Distended right colon and transverse colon probably representing an ileus. Postsurgical changes following gastric bypass. Bilateral renal cysts. AVN of the left femoral head. Fleischner guidelines were followed.
--- NOTE | ~2021-11-12 | XR_ITS ---
EXAMINATION: THORACIC AND LUMBAR SPINE X-RAY CLINICAL INFORMATION: Trauma. Back pain. Hypotension. COMPARISON: Chest x-ray and CT of the abdomen and pelvis from the same day TECHNIQUE: 3 views of the thoracic spine and 3 views of the lumbar spine FINDINGS: Thoracic spine: Exam is limited due to light film technique and patient body habitus. There is mild curvature of the midthoracic spine to the right. Bone alignment is otherwise normal. No fracture or dislocation is seen. There is mild multilevel degenerative disc disease of the midthoracic spine. Paraspinal soft tissues are unremarkable. Lumbar spine: Bone alignment is normal. No fracture or dislocation is seen. Disc spaces are normal. There is lower lumbar spine facet arthritis. XR/XR lumbar spine 2-3V IMPRESSION: No fracture or dislocation seen. Degenerative changes. Evaluation of the thoracic spine is limited due to patient body habitus.
--- NOTE | ~2021-11-12 | XR_ITS ---
EXAMINATION: XR CHEST CLINICAL INFORMATION: Trauma. Hypotension. COMPARISON: Previous chest x-ray 10/11/2021 TECHNIQUE: 2 views of the chest were obtained. FINDINGS: Lateral view is limited due to light film technique. The cardiac and mediastinal contours are normal. The lung volumes are low. The lungs are clear. There is no pleural effusion or pneumothorax. Bony structures are unremarkable. XR/XR chest 2V IMPRESSION: Limited exam. No evidence for acute disease in the chest.
--- NOTE | ~2021-11-12 | XR_ITS ---
EXAMINATION: THORACIC AND LUMBAR SPINE X-RAY CLINICAL INFORMATION: Trauma. Back pain. Hypotension. COMPARISON: Chest x-ray and CT of the abdomen and pelvis from the same day TECHNIQUE: 3 views of the thoracic spine and 3 views of the lumbar spine FINDINGS: Thoracic spine: Exam is limited due to light film technique and patient body habitus. There is mild curvature of the midthoracic spine to the right. Bone alignment is otherwise normal. No fracture or dislocation is seen. There is mild multilevel degenerative disc disease of the midthoracic spine. Paraspinal soft tissues are unremarkable. Lumbar spine: Bone alignment is normal. No fracture or dislocation is seen. Disc spaces are normal. There is lower lumbar spine facet arthritis. XR/XR thoracic spine 2V IMPRESSION: No fracture or dislocation seen. Degenerative changes. Evaluation of the thoracic spine is limited due to patient body habitus.
[2021-11-12 12:45] VITALS: BP 77/48; PULSE 100; RESP 19; TEMP 36.6; O2SAT 98; BMI 47.6
[2021-11-12 14:00] VITALS: BP 137/85; PULSE 105; O2SAT 100
--- NOTE | 2021-11-12 14:05 | ED_ITS ---
HPI - General Adult General Chief complaint: Dizziness Stated complaint: fall Time Seen by Provider: 11/12/21 13:55 History of Present Illness HPI narrative: Patient with an extensive medical history including hypertension, hyperlipidemia, diabetes, diabetic neuropathy, chronic pain syndrome, complex regional pain syndrome of the left lower lung, anxiety, depression, lumbar spine disc disease, fibromyalgia, depression, sleep apnea, pulmonary embolism on Eliquis, asthma, anxiety, hypo gamma globulinemia, TIA migraines, presents after 4 days of increasing mid to low back pain and flank pain after a fall 4 days ago. She is on Eliquis. She is also complaining of feeling dizzy and lightheaded. She denies chest pain or shortness of breath although she does suffer from chronic bronchitis and was recently admitted in October of 2021 for this. She states there is no change in her cough. No nausea vomiting or diarrhea. No obvious COVID exposures. Related Data Home Medications Medication Instructions Recorded Confirmed montelukast 10 mg tablet 10 mg PO BEDTIME 08/02/20 11/13/21 cyanocobalamin (vitamin B-12) 1,000 mcg PO DAILY 11/05/20 11/13/21 1,000 mcg tablet hydroxyzine HCl 25 mg tablet 1 tab PO TID PRN 12/12/20 11/13/21 cholecalciferol (vitamin D3) 25 25 mcg PO DAILY 03/19/21 11/13/21 mcg (1,000 unit) tablet losartan 100 mg tablet 1 tab PO DAILY 05/12/21 11/13/21 lorazepam 0.5 mg tablet 1 tab PO DAILY PRN 10/12/21 11/13/21 quetiapine 200 mg tablet 1 tab PO BEDTIME 10/12/21 11/13/21 umeclidinium 62.5 mcg-vilanterol 1 puff INHALATION DAILY 10/12/21 11/13/21 25 mcg/actuation powdr for inhalation (Anoro Ellipta) omeprazole 20 mg capsule,delayed 1 cap PO DAILY 11/12/21 11/13/21 release zolpidem 10 mg tablet 1 tab PO BEDTIME PRN 11/12/21 11/13/21 azithromycin 250 mg tablet 250 mg PO MOWEFR 11/13/21 11/13/21 escitalopram oxalate 10 mg 1 tab PO DAILY 11/13/21 11/13/21 tablet Previous Rx's Medication Instructions Recorded albuterol sulfate 90 mcg/actuation 1 inh INHALATION QID PRN #18 g 10/13/20 aerosol inhaler gabapentin 300 mg capsule 600 mg PO BID 30 Days #120 cap 04/14/21 (Neurontin) ondansetron 4 mg disintegrating 4 mg PO TID PRN 5 Days #10 tab 05/23/21 tablet immune glob,gamm(IgG) 10 %-pro-IgA 40 g IV .monthly #400 ml 05/26/21 0 to 50 mcg/mL intravenous solution (Privigen) apixaban 5 mg tablet 5 mg PO BID 30 Days #60 tab 06/27/21 ypqiidanzn-tjfhkmfaychuf-fcgeizjk 1 cap PO Q4H PRN #20 cap 08/08/21 50 mg-300 mg-40 mg capsule (Fioricet) alosetron 1 mg tablet (Lotronex) 1 mg PO BID 30 Days #60 tab 09/02/21 sucralfate 1 gram tablet 2 g PO DAILY #60 tab 10/10/21 tramadol 50 mg tablet 50 mg PO BID PRN #10 tab 10/13/21 benzonatate 200 mg capsule 200 mg PO TID PRN 30 Days #60 cap 10/20/21 roflumilast 500 mcg tablet 500 mcg PO DAILY 30 Days #30 tab 11/03/21 (Daliresp) Allergies Allergy/AdvReac Type Severity Reaction Status Date / Time No Known Allergies Allergy Verified 11/24/21 09:02 Review of Systems Verdana 4l Constitutional: Verdana 4d Comments: Verdana 4d Verdana 4d Verdana 4d No fevers or chills Verdana 4d Verdana 4l Cardiovascular: Verdana 4d Comments: Verdana 4d Verdana 4d Verdana 4d No new chest pain Verdana 4d Verdana 4l Respiratory: Verdana 4d Verdana 4d Comments: Verdana 4d Verdana 4d No new dyspnea Verdana 4d Verdana 4l Gastrointestinal: Verdana 4d Comments: Verdana 4d Verdana 4d Verdana 4d Left flank pain after a fall Verdana 4d Verdana 4l Musculoskeletal: Verdana 4d Comments: Verdana 4d Verdana 4d Verdana 4d Mid to low back pain Verdana 4d Verdana 4l Integumentary/Breasts: Verdana 4d Comments: Verdana 4d Verdana 4d Verdana 4d No bleeding or rash Verdana 4d Verdana 4l Neurologic: Verdana 4d Verdana 4d Comments: Verdana 4d Verdana 4d No focal weakness Verdana 4d Verdana 4l Hematologic/Lymphatic: Verdana 4d Comments: Verdana 4d Verdana 4d Verdana 4d Known hypogammaglobulinemia Verdana 4d [facility] Past Medical History Medical History Anemia Arthritis Asthma Asthma exacerbation Asthma-COPD overlap syndrome Back pain Bronchitis Chronic pain syndrome Complex regional pain syndrome i of left lower limb Cough Depression Diabetic neuropathy Diet-controlled diabetes mellitus Disc degeneration, lumbosacral Dizziness Elevated lactic acid level Essential hypertension Fibromyalgia Headache Headache, migraine Hypogammaglobulinemia Hypothyroidism Laryngotracheitis Low back pain Morbid obesity Nausea vomiting and diarrhea BABATUNDE (obstructive sleep apnea) Pleuritic chest pain 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 Pulmonary embolism Sleep apnea 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 TIA (transient ischemic attack) Type 2 diabetes mellitus with unspecified complications Surgical History History of bariatric surgery History of cholecystectomy History of esophagogastroduodenoscopy (EGD) Hx of colonoscopy S/P total abdominal hysterectomy Family History Family History Mother Diabetes Stroke Family/Other Diabetes Father Diabetes Social History Social History Household Members: Significant Other Housing: House Do you presently have visiting nurse or other home services: No Alcohol intake: unknown Patient Tobacco Use Status: Never used Tobacco e-Cigarette/Vaping Use: Never Used Advance Directives Date on File: 05/23/21 service: No Current occupational status: unemployed and disabled Physical Exam Verdana 4l Vital Signs: Verdana 4d Verdana 4d Vital Signs: Verdana 4d Verdana 4Bd Last Vital Signs Verdana 4d Central Control Room Operator New 4d Central Control Room Operator New 4d Temp 97.6 F 11/18/21 07:37 Central Control Room Operator New 4d Pulse 61 11/18/21 07:37 Central Control Room Operator New 4d Resp 17 11/18/21 07:37 BP 125/58 L 11/18/21 07:37 Pulse Ox 98 11/18/21 07:37 BMI result Body Mass Index 47.6 Const: Other: Awake and alert. Initially sleepy. Able to answer questions without difficulty. Appears uncomfortable when moving Resp: Other: Bilateral expiratory rhonchi Cardio: Other: Regular rate and rhythm without murmurs rubs or gallops GI: Other: Abdomen is soft. Nondistended. Tender diffusely along the left side and left flank. Back/Spine/Pelvis: Other: Tenderness along the lower thoracic and upper lumbar spine without crepitus or deformity noted Skin: Other: Warm and dry Neuro: Other: Nonfocal Course Course Course Narrative: Fall with musculoskeletal back pain Rule out intra abdominal or retroperitoneal hemorrhage secondary to fall on Eliquis Rule out solid organ injury Spinal fracture Blood pressure initially 77/48, but corrected when switched to left arm. Unlikely to be true hypotension, but will treat with IV fluids and trauma workup 3:22 p.m.. Workup shows white count of 16.5. Creatinine is 3 which is new. Will order a 2 L of IV fluids at this time. She is 4 ft 9 in tall. MD gaspar shows an ideal body weight of 45 kg. This gives 30 cc/kilogram at 1350 cc. Total fluid ordered so far as 2000 cc. Still awaiting urinalysis. CT scan shows no obvious other intra-abdominal infection or abnormality to account for patient's symptoms. Plain films showed no evidence of spinal fracture or thoracic abnormality. Anticipate hospitalization secondary to acute kidney injury. 8:30 p.m.. Patient is stable but still has not produced urine. Still no evidence of sepsis at this time. Medical Decision Making Lab Data Result diagrams: 11/16/21 05:15 11/16/21 05:15 Labs: Lab Results 11/12/21 11/12/21 11/12/21 Range/Units 14:53 14:53 14:53 WBC 16.5 H (4.8-10.8) X10*3/uL RBC 4.00 L (4.20-5.50) X10*6/uL Hgb 12.4 (12.0-16.0) g/dl Hct 40.3 (37.0-47.0) % MCV 100.8 H (80.0-98.0) fL MCH 31.0 (27.0-33.0) pg MCHC 30.8 L (31.0-35.0) g/dl RDW 17.2 H (11.0-16.0) % Plt Count 297 (160-400) X10*3/uL MPV 8.4 L (9.4-12.3) fL Immature Gran % (Auto) 1.2 H (0.0-0.4) % Neut % (Auto) 84.9 H (45-73) % Lymph % (Auto) 6.7 L (20-40) % [place] % (Auto) 6.9 (2-11) % Eos % (Auto) 0.2 (0-4) % Baso % (Auto) 0.1 (0-2) % Lymph # (Auto) 1.1 L (1.2-4.9) X10*3/uL [place] # (Auto) 1.1 (0.1-1.2) X10*3/uL Eos # (Auto) 0.0 (0.0-0.4) X10*3/uL Baso # (Auto) 0.0 (0.0-0.2) X10*3/uL Abs Immat Gran (auto) 0.19 H (0.00-0.03) X10*3/uL Absolute Neuts (auto) 14.0 H (2.0-8.3) x10*3/uL Absolute Nucleated RBC 0.000 (0.0-0.012) X10*3/uL Nucleated RBC % (auto) 0.0 (0.0-0.2) /100WBC PT 17.3 H (9.9-13.0) SEC INR 1.5 H (0.9-1.1) Sodium 136 (135-145) mmol/L Potassium 5.4 H D (3.3-5.1) mmol/L Chloride 103 (96-108) mmol/L Carbon Dioxide 23 (22-29) mmol/L Anion Gap 15 (12-20) BUN 27 H (9-16) mg/dL Creatinine 3.04 H (0.5-1.4) mg/dL Estim Creat Clear Calc 21.5 Estimated GFR 16 Random Glucose 107 (60-115) mg/dL Lactic Acid (0.5-2.0) mmol/L Calcium 10.1 D (8.4-10.2) mg/dL Total Bilirubin 0.6 (0.0-1.0) mg/dL AST 26 (5-31) U/L ALT 34 H (0-31) U/L Alkaline Phosphatase 73 (39-117) U/L Total Protein 6.6 (6.5-8.0) g/dL Albumin 3.7 (3.5-5.0) g/dL Urine Color Urine Appearance Urine pH (5.0-8.0) Ur Specific [place] (1.005-1.025) Urine Protein (NEG-TRACE) MG/DL Urine Glucose (UA) (NEG) MG/DL Urine Ketones (NEG) MG/DL Urine Blood (NEG) Urine Nitrite (NEG) Ur Leukocyte Esterase (NEG) COVID-19 (MARIO ALBERTO) (Negative) COVID-19 Clin Com 11/12/21 11/12/21 11/12/21 Range/Units 14:53 18:50 22:15 WBC (4.8-10.8) X10*3/uL RBC (4.20-5.50) X10*6/uL Hgb (12.0-16.0) g/dl Hct (37.0-47.0) % MCV (80.0-98.0) fL MCH (27.0-33.0) pg MCHC (31.0-35.0) g/dl RDW (11.0-16.0) % Plt Count (160-400) X10*3/uL MPV (9.4-12.3) fL Immature Gran % (Auto) (0.0-0.4) % Neut % (Auto) (45-73) % Lymph % (Auto) (20-40) % [place] % (Auto) (2-11) % Eos % (Auto) (0-4) % Baso % (Auto) (0-2) % Lymph # (Auto) (1.2-4.9) X10*3/uL [place] # (Auto) (0.1-1.2) X10*3/uL Eos # (Auto) (0.0-0.4) X10*3/uL Baso # (Auto) (0.0-0.2) X10*3/uL Abs Immat Gran (auto) (0.00-0.03) X10*3/uL Absolute Neuts (auto) (2.0-8.3) x10*3/uL Absolute Nucleated RBC (0.0-0.012) X10*3/uL Nucleated RBC % (auto) (0.0-0.2) /100WBC PT (9.9-13.0) SEC INR (0.9-1.1) Sodium (135-145) mmol/L Potassium (3.3-5.1) mmol/L Chloride (96-108) mmol/L Carbon Dioxide (22-29) mmol/L Anion Gap (12-20) BUN (9-16) mg/dL Creatinine (0.5-1.4) mg/dL Estim Creat Clear Calc Estimated GFR Random Glucose (60-115) mg/dL Lactic Acid 1.9 (0.5-2.0) mmol/L Calcium (8.4-10.2) mg/dL Total Bilirubin (0.0-1.0) mg/dL AST (5-31) U/L ALT (0-31) U/L Alkaline Phosphatase (39-117) U/L Total Protein (6.5-8.0) g/dL Albumin (3.5-5.0) g/dL Urine Color YELLOW Urine Appearance CLEAR Urine pH 5.5 (5.0-8.0) Ur Specific [place] >= 1.030 H (1.005-1.025) Urine Protein TRACE (NEG-TRACE) MG/DL Urine Glucose (UA) NEG (NEG) MG/DL Urine Ketones NEG (NEG) MG/DL Urine Blood NEG (NEG) Urine Nitrite NEG (NEG) Ur Leukocyte Esterase NEG (NEG) COVID-19 (MARIO ALBERTO) Negative (Negative) COVID-19 Clin Com See Note Discharge Plan Discharge Clinical Impression: Acute kidney injury, Back pain, Acute dehydration Patient Disposition: Admitted As Inpatient Interventions: Admission Worksheet (ED) Last Done: 11/13/21 17:23 Discharge Date/Time: 11/13/21 17:24
[2021-11-12] MEDS: 0.9 % Sodium Chloride 500 ML IV (14:43)
[2021-11-12 14:59] LABS: MANUAL DIFF FLAG NO
[2021-11-12 15:02] LABS: Basophils Percent Auto 0.1 % (0-2); Eosinophils Percent Auto 0.2 % (0-4); Hematocrit 40.3 % (37.0-47.0); Hemoglobin 12.4 g/dl (12.0-16.0); Imm Gran Abs Auto 0.19 X10*3/uL (0.00-0.03); Imm Gran Pct Auto 1.2 % (0.0-0.4); Lymphocytes Absolute Auto 1.1 X10*3/uL (1.2-4.9); Lymphocytes Percent Auto 6.7 % (20-40); Mean Corpuscular HGB Conc 30.8 g/dl (31.0-35.0); Mean Corpuscular Volume 100.8 fL (80.0-98.0); Mean Platelet Volume 8.4 fL (9.4-12.3); Monocytes Absolute Auto 1.1 X10*3/uL (0.1-1.2); Monocytes Percent Auto 6.9 % (2-11); Neutrophils Percent Auto 84.9 % (45-73); Platelet Count 297 X10*3/uL (160-400); Red Cell Distribution Width 17.2 % (11.0-16.0); White Blood Count 16.5 X10*3/uL (4.8-10.8)
[2021-11-12] MEDS: HYDROmorphone HCl 1 MG/ML SYRINGE IVPUSH (15:02)
[2021-11-12 15:09] LABS: INTERNATIONAL NORM RATIO 1.5 (0.9-1.1); Prothrombin Time 17.3 SEC (9.9-13.0)
[2021-11-12 15:15] LABS: Alanine Aminotransferase 34 U/L (0-31); Albumin Level 3.7 g/dL (3.5-5.0); Alkaline Phosphatase 73 U/L (39-117); Anion Gap 15 (12-20); Aspartate Amino Transferase 26 U/L (5-31); Bilirubin Total 0.6 mg/dL (0.0-1.0); Blood Urea Nitrogen 27 mg/dL (9-16); Calcium 10.1 mg/dL (8.4-10.2); Carbon Dioxide 23 mmol/L (22-29); Chloride 103 mmol/L (96-108); Creatinine Clr Calc Pharmacy 21.5; Estimated Glomerular Filt Rate 16; Glucose Random 107 mg/dL (60-115); Potassium 5.4 mmol/L (3.3-5.1); Sodium 136 mmol/L (135-145); Total Protein 6.6 g/dL (6.5-8.0)
[2021-11-12 15:16] LABS: COVID-19 Test Negative (Negative)
[2021-11-12] MEDS: 0.9 % Sodium Chloride 1,000 ML 999 ML IV ×2 (16:03→19:28)
[2021-11-12 18:29] VITALS: BP 102/68; PULSE 120; RESP 18; TEMP 36.8; O2SAT 100
[2021-11-12 19:05] LABS: Lactic Acid 1.9 mmol/L (0.5-2.0)
[2021-11-12 20:51] VITALS: BP 102/75; PULSE 112; RESP 16; O2SAT 100
[2021-11-12 21:47] VITALS: RESP 18
[2021-11-12] MEDS: HYDROmorphone HCl 0.5 MG/0.5 ML SYRINGE IVPUSH (21:47)
[2021-11-12 21:52] VITALS: BP 130/61; PULSE 117; RESP 18; O2SAT 97
[2021-11-12 22:32] LABS: Appearance Urine CLEAR; Color Urine YELLOW; Glucose Urine UA NEG (NEG); Leukocyte Esterase Urine NEG (NEG); Nitrite Urine NEG (NEG); PH 5.5 (5.0-8.0); Specific Gravity - Urine >= 1.030 (1.005-1.025); Urine Blood NEG (NEG); Urine Ketones NEG (NEG); Urine Protein TRACE MG/DL (NEG-TRACE)
--- NOTE | 2021-11-12 22:53 | P.HPHOSP_ITS ---
History of Present Illness Date of Service: 11/12/21 Chief Complaint: back pain Citizen Of [place]-speaking. History is obtained with the help of sand technologist. this is a 51-year-old female with an extensive past medical history of asthma, chronic back pain, chronic pain syndrome, diabetes, depression, hypertension, fibromyalgia, migraine headaches, hypothyroidism, BABATUNDE, PE, TIA, who presents to the hospital with complaints of back pain. patient received Dilaudid for back pain therefore she is very sleepy but arousable and able to give appropriate answers. She reports the back pain started today but she had a fall about 3 days ago,she reports no chest pain, no shortness of breath, she is reporting left lower and right lower quadrant abdominal pains, she deniesnausea or vomiting, no diarrhea constipation, no urinary symptoms although feels that she cannot PE, and no lower extremity edema. No headache or change in vision. On arrival to the ED vitals are significant for a temp of 98.1?, heart rate of 84, respiratory rate of 18, recorded blood pressure of 77/48 but is seems to be and air all as the blood pressure rechecked on the other arm showed 137/85 with no hypotension found again. Labs are significant for WBC count of 16.5, hemoglobin of 12.4, MCV of 100.8, VBG of 7.17, pCO2 of 53, potassium of 5.4 with no EKG changes, BUN of 27, creatinine of 3.04 with a baseline of 18 and 1.09, UA negative, COVID-19 negative, chest CT showed no focal consolidation or evidence of pneumonitis, mild diffuse bronchial wall thickening representing bronchitis. No anion gap , Bicarb of [address] shows distended right colon and transverse colon probably representing an ileus. X-ray of the thoracic and lumbar spine negative patient will be admitted for further management Review of Systems Review of Systems: Yes all other systems are reviewed and are negative [facility] Medical History Anemia Arthritis Asthma Asthma exacerbation Asthma-COPD overlap syndrome Back pain Bronchitis Chronic pain syndrome Complex regional pain syndrome i of left lower limb Cough Depression Diabetic neuropathy Diet-controlled diabetes mellitus Disc degeneration, lumbosacral Dizziness Elevated lactic acid level Essential hypertension Fibromyalgia Headache Headache, migraine Hypogammaglobulinemia Hypothyroidism Laryngotracheitis Low back pain Morbid obesity Nausea vomiting and diarrhea BABATUNDE (obstructive sleep apnea) Pleuritic chest pain 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 Pulmonary embolism Sleep apnea 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 TIA (transient ischemic attack) Type 2 diabetes mellitus with unspecified complications Family History Mother Diabetes Stroke Family/Other Diabetes Father Diabetes Surgical History History of bariatric surgery History of cholecystectomy History of esophagogastroduodenoscopy (EGD) Hx of colonoscopy S/P total abdominal hysterectomy Social History Household Members: Spouse Housing: House Do you presently have visiting nurse or other home services: No Alcohol intake: unknown Patient Tobacco Use Status: Never used Tobacco Advance Directives: No Advance Directives Information Provided: No Advance Directives Date on File: 05/23/21 service: No Current occupational status: unemployed and disabled Meds Allergies Allergy/AdvReac Type Severity Reaction Status Date / Time No Known Allergies Allergy Verified 11/03/21 13:47 Home Medications Medication Instructions Recorded Confirmed Last Taken Type montelukast 10 mg tablet 10 mg PO BEDTIME 08/02/20 10/12/21 05/22/21 History cyanocobalamin (vitamin B-12) 1,000 mcg PO DAILY 11/05/20 10/12/21 05/22/21 History 1,000 mcg tablet hydroxyzine HCl 25 mg tablet 1 tab PO TID PRN 12/12/20 10/12/21 05/22/21 History cholecalciferol (vitamin D3) 25 25 mcg PO DAILY 03/19/21 10/12/21 05/22/21 History mcg (1,000 unit) tablet losartan 100 mg tablet 1 tab PO DAILY 05/12/21 10/12/21 05/22/21 History lorazepam 0.5 mg tablet 1 tab PO DAILY PRN 10/12/21 10/12/21 Unknown History quetiapine 200 mg tablet 1 tab PO BEDTIME 10/12/21 10/12/21 Unknown History umeclidinium 62.5 mcg-vilanterol 1 puff INHALATION DAILY 10/12/21 10/12/21 Unknown History 25 mcg/actuation powdr for inhalation (Anoro Ellipta) omeprazole 20 mg capsule,delayed 1 cap PO DAILY 11/12/21 Unknown History release zolpidem 10 mg tablet 1 tab PO BEDTIME PRN 11/12/21 Unknown History Physical Exam Vital Signs and Narrative: Vital Signs: Last Vital Signs Temp 98.3 F 11/12/21 18:29 Pulse 117 H 11/12/21 21:52 Resp 18 11/12/21 21:52 BP 130/61 11/12/21 21:52 Pulse Ox 97 11/12/21 21:52 BMI result Body Mass Index 47.6 Const: Other: lethargic but arousable General: cooperative and no acute distress Eyes: General: appearance normal, both eyes and all related structures Pupils: Equal, round and reactive pupils present Resp: Effort & Inspection: normal respiratory effort Auscultation: clear to auscultation bilaterally Cardio: Rate: regular rate Rhythm: regular rhythm GI: Other: distended abdomen no tenderness, no rebound or guarding Palpation (GI): Soft to palpation Auscultation: normal bowel sounds Skin: General skin exam: no rashes or lesions noted Neuro: Cranial nerves: Yes Equal, round and reactive pupils present Cognition (Neuro): normal cognition Extrem: General: Yes normal to inspection and Yes no pedal edema Results Labs CBC and Chem 7: 11/12/21 14:53 11/12/21 23:10 Labs: Laboratory Results - last 24 hr 11/12/21 11/12/21 11/12/21 14:53 14:53 14:53 MCV 100.8 H MCH 31.0 MCHC 30.8 L RDW 17.2 H Plt Count 297 MPV 8.4 L Immature Gran % (Auto) 1.2 H Neut % (Auto) 84.9 H Lymph % (Auto) 6.7 L [place] % (Auto) 6.9 Eos % (Auto) 0.2 Baso % (Auto) 0.1 Lymph # (Auto) 1.1 L [place] # (Auto) 1.1 Eos # (Auto) 0.0 Baso # (Auto) 0.0 Abs Immat Gran (auto) 0.19 H Absolute Neuts (auto) 14.0 H Absolute Nucleated RBC 0.000 Nucleated RBC % (auto) 0.0 PT 17.3 H INR 1.5 H Anion Gap 15 Creatinine 3.04 H Estim Creat Clear Calc 21.5 Estimated GFR 16 Random Glucose 107 Lactic Acid Calcium 10.1 D Total Bilirubin 0.6 AST 26 ALT 34 H Alkaline Phosphatase 73 Total Protein 6.6 Albumin 3.7 Urine Color Urine Appearance Urine pH Ur Specific [place] Urine Protein Urine Glucose (UA) Urine Ketones Urine Blood Urine Nitrite Ur Leukocyte Esterase COVID-19 (MARIO ALBERTO) COVID-19 Clin Com 11/12/21 11/12/21 11/12/21 14:53 18:50 22:15 MCV MCH MCHC RDW Plt Count MPV Immature Gran % (Auto) Neut % (Auto) Lymph % (Auto) [place] % (Auto) Eos % (Auto) Baso % (Auto) Lymph # (Auto) [place] # (Auto) Eos # (Auto) Baso # (Auto) Abs Immat Gran (auto) Absolute Neuts (auto) Absolute Nucleated RBC Nucleated RBC % (auto) PT INR Anion Gap Creatinine Estim Creat Clear Calc Estimated GFR Random Glucose Lactic Acid 1.9 Calcium Total Bilirubin AST ALT Alkaline Phosphatase Total Protein Albumin Urine Color YELLOW Urine Appearance CLEAR Urine pH 5.5 Ur Specific [place] >= 1.030 H Urine Protein TRACE Urine Glucose (UA) NEG Urine Ketones NEG Urine Blood NEG Urine Nitrite NEG Ur Leukocyte Esterase NEG COVID-19 (MARIO ALBERTO) Negative COVID-19 Clin Com See Note Imaging Radiologist's Impressions: Impressions Chest X-Ray 11/12/21 14:39 IMPRESSION: Limited exam. No evidence for acute disease in the chest. Lumbar Spine X-Ray 11/12/21 14:39 IMPRESSION: No fracture or dislocation seen. Degenerative changes. Evaluation of the thoracic spine is limited due to patient body habitus. Thoracic Spine X-Ray 11/12/21 14:39 IMPRESSION: No fracture or dislocation seen. Degenerative changes. Evaluation of the thoracic spine is limited due to patient body habitus. Abdomen/Pelvis CT 11/12/21 14:47 IMPRESSION: Distended right colon and transverse colon probably representing an ileus. Postsurgical changes following gastric bypass. Bilateral renal cysts. AVN of the left femoral head. Fleischner guidelines were followed. Assessment and Plan (1) Acute kidney injury: Status: Acute (2) Leukocytosis: Status: Acute (3) Hyperkalemia: Status: Acute (4) Metabolic acidosis: Status: Acute (5) Acute dehydration: Status: Acute (6) Back pain: Qualifiers: Back pain laterality: unspecified Back pain location: thoracic back pain Chronicity: unspecified Qualified Code(s): M54.6 - Pain in thoracic spine Status: Acute (7) Ileus: Status: Acute this is a 51-year-old female with extensive past medical history as mentioned above who presents to the hospital with back pain found to be dehydrated with JF, as well as have a hyperkalemia and other lab abnormalities # JF - unclear etiology possibly secondary to dehydration, abdominal CT revealed no obstruction, UA is negative - will start IV fluids - will consult Nephrology - will obtain salicylate acid, methanol and ethylene glycol levels - follow BMP # leukocytosis - most likely liquid reaction as there is no evidence of infection, CT scan of the chest and abdomen showed only still ileus , with no evidence of infection, UA is negative - patient afebrile - will keep IV antibiotics off at this time as there is no evidence of infection - follow culture # ileus - abdomen is soft, no rebound or guarding - no nausea or vomiting - will consult General surgery - keep NPO # metabolic acidosis - unclear etiology - home obtain salicylate, methadone glycol and ethylene glycol level - nephrology consult # hyperkalemia - no EKG changes - was evaluated by ICU - given calcium gluconate, insulin with dextrose, sodium bicarb and albuterol as well as p.o. Kayexalate - fall BMP # history of PE - continue apixaban once medication has been re-conciled by pharmacy patient was seen by ICU as she was somnolent, gases show metabolic acidosis as well as having severe JF and hyperkalemia Patient was given Narcan with appropriate response, patient is alert and orie nted x3. They did not feel the need to transfer to the ICU as she has no EKG changes all other meds to be continued was his medication reviewed by pharmacy Quality Stroke Does the patient have a stroke diagnosis?: No VTE Prior VTE?: No VTE Risk Level:: Medical - moderate - high VTE Device Contraindication: Treatment Not Indicated VTE Drug Contraindication: N/A - Med Ordered
[2021-11-12 23:19] LABS: Venous Blood Gas Refer to POC result
[2021-11-12 23:20] LABS: VBG Base Excess -8.8 mmol/L; VBG HCO3 19 mmol/L (22-26); VBG pCO2 53 mmHg; VBG pH 7.17 (7.32-7.43); VBG pO2 99 mmHg
[2021-11-12 23:56] LABS: Anion Gap 15 (12-20); Blood Urea Nitrogen 29 mg/dL (9-16); Calcium 9.1 mg/dL (8.4-10.2); Carbon Dioxide 21 mmol/L (22-29); Chloride 107 mmol/L (96-108); Creatinine Clr Calc Pharmacy 19.4; Estimated Glomerular Filt Rate 14; Glucose Random 135 mg/dL (60-115); Potassium 7.3 mmol/L (3.3-5.1); Sodium 136 mmol/L (135-145)
[2021-11-13] VITALS (9 sets, daily range): BP systolic 122–150; BP diastolic 62–76; PULSE 80–119; RESP 12–23; TEMP 36.6–36.8; O2SAT 93–98
--- NOTE | 2021-11-13 | ECG_ITS ---
Test Reason : CP Blood Pressure : / mmHG Vent. Rate : 115 BPM Atrial Rate : 115 BPM P-R Int : 126 ms QRS Dur : 092 ms QT Int : 322 ms P-R-T Axes : 049 038 018 degrees QTc Int : 445 ms Sinus tachycardia cannot exclude old Inferior infarct , age undetermined Abnormal ECG When compared with ECG of 08-AUG-2021 11:13, Vent. rate has increased BY 46 BPM Nonspecific T wave abnormality no longer evident in Anterior leads Referred By: Jose M Abbasi Electronically Signed By:ISIDORO MORALES
[2021-11-13 00:01] LABS: Lactic Acid 1.2 mmol/L (0.5-2.0)
--- NOTE | 2021-11-13 00:21 | PC.NURSE ---
EKG completed. Copy sent to Dr. Abbasi via [employer].
[2021-11-13] MEDS: Sodium Bicarbonate 8.4% 50 MEQ/50 ML SYRINGE IVPUSH (00:53)
[2021-11-13] MEDS: Calcium Gluconate/NaCl,Iso-Osm 2 GM/100 ML PLAST..BAG IV (00:53)
[2021-11-13] MEDS: Sodium Polystyrene Sulfon/Sorb 15 GM/60 ML ORAL.SUSP 30 GM PO (00:53)
[2021-11-13] MEDS: Insulin Regular, Human 100 UNIT/ML 3 ML VIAL 10 UNIT IVPUSH (00:54)
--- NOTE | 2021-11-13 01:25 | P.CONCC_ITS ---
History of Present Illness Data of Consult Service Date: 11/13/21 Requesting physician: Jose M Abbasi Primary Care Provider: Claudia Villatoro MD HPI Reason for consult: Encephalopathy/hyperkalemia/JF HPI: ?Is a 51-year-old female who we were asked to see in consult by the hospitalist.? Patient has underlying history of morbid obesity, asthma, chronic back pain, hypertension, hyperlipidemia, diabetes, diabetic neuropathy, complex regional pain syndrome of the left lower lung, anxiety, depression, lumbar spine disc disease, fibromyalgia, depression, obstructive sleep apnea, PE currently on Eliquis, hypogammaglobulinemia, TIA migraines among others who presented to the emergency room yesterday afternoon with complaints of mid to low back pain and flank pain status post a mechanical fall at home.? Reportedly the patient has felt lightheaded and dizzy. The ER workup revealed white count of 16.5 with an H&H of 12.4 and 40.3 respectively, platelets 297, sodium 136, potassium 5.4, chloride 103, carbon dioxide 23, BUN 27, creatinine 3.04.? And repeat lab work show an increase in creatinine to 3.38, potassium up to 7.3, the patient was reported to be somnolent and minimally responsive, the concern is that the patient is becoming encephalopathic due to metabolic derangement, CO2 retention and we are asked to see the patient. In the ER, the patient appears hemodynamically stable although slightly tachycardic with 110 beats per minute, she is minimally responsive to verbal commands, almost snoring, pupils are 2 mm bilaterally and fixed and it is almost) that the patient is overdosed as it is known that the patient had a very small 0.5 mg dose of Dilaudid earlier in the afternoon for her back pain. I did give her 0.2 mg of Narcan am with full affect allowing the patient to become completely alert, oriented x3 and fully responsive to verbal commands.? I will address the rest of the issues and comorbidities as described below.? The patient is not a candidate to the ICU at this point and this was communicated to the hospitalist. ROS:? Unable to obtain due to the patient's significant somnolent state.? Past Medical History:? As above in addition to Bronchitis Hypothyroidism Laryngotracheitis Pleuritic chest pain Lumbar spine spondylosis Past Surgical History: Bariatric surgery Cholecystectomy EGD Colonoscopy Total abdominal hysterectomy Family history: ?Mother had diabetes and stroke currently disease, father had diabetes. Social History:? Is known to leave the home, has never smoked, no alcohol consumption.? There is no history of drug abuse but there is a remote history of opiate dependence as she claims to have taking narcotics for a long period time past. CODE STATUS: FULL CODE Allergies: NKDA Home Medications: See Med Rec PHYSICAL EXAM: Blood pressure 122/62, heart rate 116, respirations 23, O2 sat 98% on 2.5 L nasal cannula, temperature 98.0?. General: Initially the patient was unresponsive to verbal stimuli and minimally arousable with touch stimuli, pupils are 2 mm and fixed but the whole effect was reversed with Narcan as above described.? She is now alert and oriented x3 no acute distress speaking in full sentences and following commands. ? Skin:? Intact, no lesions, edema, erythema, clubbing or cyanosis.? No ulcers. HEENT:? Head is normocephalic, atraumatic, pupils as above.? Extraocular movements appear intact.? Buccal mucosa is dry.? Neck is thick.? No masses. Cardiac:? Clear S1-S2, tachycardic 110 beats per minute.? No murmurs, rubs, gallops. Pulmonary:? Minimal coarse lung sounds at the right base with expiratory wheezi ng mostly in the upper lung turcios anteriorly and posteriorly.? No clear rhonchi or crackles noted. Abdomen:? Protuberant, positive bowel sounds in all 4 quadrants.? Soft, nontender, no rebound or guarding.? Musculoskeletal:? Moving all 4 extremities upon request a major joints, there is no crepitus or tenderness.? The strength is 5/5 bilaterally and throughout all 4 extremities.? There is no leg edema , no calf tenderness , no leg asymmetry.? Gait not assessed at this point. Neurologic:? As above, cranial nerves 2-12 are grossly intact.? No focal deficits noted. Vascular:? 2+ pulses upper and lower extremities distally. ? SIGNIFICANT LABORATORY DATA:? As above; UA negative REVIEW OF IMAGES: ?Trauma survey including chest x-ray, lumbar and thoracic spine x-rays show no acute abnormality. Abdomen pelvis CT Shows distended right colon and transverse colon probably representing an ileus.? Postsurgical changes following gastric bypass.? Bilateral renal cysts.? 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 EKG REVIEW: ?Sinus rhythm 69 beats per minute.? No ST elevations, no depressions. ?T-wave inversions in lead V2, age undetermined. ?QTC 435, no comparison. ASSESSMENT AND PLAN: 1. Obtundation due to opiate overdose now fully resolved 2. Acute kidney injury likely due to dehydration and perhaps underlying ATN as the patient is on losartan 3. Acute hyperkalemia due to the above 4. Nonspecific leukocytosis 5. Cough and wheezing rule out underlying pneumonia no seen on x-ray perhaps with SIRS due to white count and tachycardia, tachypnea 6. Chronic back pain 7. Metabolic acidosis likely due to undetected infection 8. Morbid obesity/ obstructive sleep apnea 9. Reported ileus on initial CT, this can be followed up, currently the patient does have bowel sounds and her abdomen is nontender however this should be reassessed and ensure that the patient does not develop a SBO. At this point the patient is not a candidate for the ICU, I was able to reverse the effect of her somnolence with Narcan, it is true that the patient only had 0.5 mg of Dilaudid however this is likely the culprit given her underlying acute kidney injury leading to a byproduct retention. In regards to acute kidney injury will start her on fluids, discontinue nephrotoxins, I have advised the hospitalist to obtain a CT of the chest to further evaluate the possibility of underlying pneumonia given my clinical exam findings. The patient does have an obese body habitus and small neck, history of obstructive sleep apnea currently her CO2 is not significantly elevated, she will benefit from CPAP at night. Obtain sputum. Given her renal derangement I would also hold gabapentin. In the meantime her potassium can be treated with insulin, D50, albuterol 10 mg x 1 and depending on EKG plus-minus calcium gluconate. ?I did advise against Lasix which can further worsen her renal function. The patient should also not half zolpidem or any other medications that can be retained in the system causing mental status changes or obtunded state. Thank you for allowing us to participate in the care of this patient. Critical care time used for critical evaluation of this patient, diagnosis, treatment and coordination of care, review her records and documentation TOTAL CRITICAL CARE TIME 90 MIN . Patient's care was discussed in detail with Dr. Thompson.? He is aware of all the above as well as the plan of care for this patient. [facility] Past Medical History Medical History Anemia Arthritis Asthma Asthma exacerbation Asthma-COPD overlap syndrome Back pain Bronchitis Chronic pain syndrome Complex regional pain syndrome i of left lower limb Cough Depression Diabetic neuropathy Diet-controlled diabetes mellitus Disc degeneration, lumbosacral Dizziness Elevated lactic acid level Essential hypertension Fibromyalgia Headache Headache, migraine Hypogammaglobulinemia Hypothyroidism Laryngotracheitis Low back pain Morbid obesity Nausea vomiting and diarrhea BABATUNDE (obstructive sleep apnea) Pleuritic chest pain 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 Pulmonary embolism Sleep apnea 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 TIA (transient ischemic attack) Type 2 diabetes mellitus with unspecified complications Family History Family History Mother Diabetes Stroke Family/Other Diabetes Father Diabetes Surgical History Surgical History History of bariatric surgery History of cholecystectomy History of esophagogastroduodenoscopy (EGD) Hx of colonoscopy S/P total abdominal hysterectomy Social History Social History Household Members: Significant Other Housing: House Do you presently have visiting nurse or other home services: No Alcohol intake: unknown Patient Tobacco Use Status: Never used Tobacco e-Cigarette/Vaping Use: Never Used Advance Directives Date on File: 05/23/21 service: No Current occupational status: unemployed and disabled Meds Allergies Allergy/AdvReac Type Severity Reaction Status Date / Time No Known Allergies Allergy Verified 11/03/21 13:47 Active Medications: Current Medications Acetaminophen (Acetaminophen 325 Mg Tablet) 650 mg PO Q6H PRN PRN Reason: Pain, Mild (Pain Scale 1-3) Docusate Sodium (Docusate Sodium 100 Mg Capsule) 100 mg PO DAILY PRN PRN Reason: Constipation Piperacillin Sod/Tazobactam (Sod 3.375 gm/ Sodium Chloride) 50 mls @ 100 mls/hr IV Q6H [facility] Sodium Bicarbonate 100 meq/ (Dextrose) 1,000 mls @ 50 mls/hr IV .Q20H [facility] Calcium Gluconate (Calcium Gluconate) 2 gm in 100 mls @ 50 mls/hr IV ONCE ONE Stop: 11/13/21 02:11 Last Admin: 11/13/21 00:53 Dose: 50 mls/hr Documented by: Sodium Chloride (Ns) 1,000 mls @ 100 mls/hr IVCONT .Q10H [facility] Lidocaine (Lidocaine 4 % Patch Adh..Patch) 1 patch TRANSDERMA DAILY [facility]; Protocol Ondansetron HCl (Ondansetron Hcl 4 Mg/2 Ml Vial) 4 mg IVPUSH Q8H PRN PRN Reason: Nausea and Vomiting Sodium Chloride (0.9 % Sodium Chloride Flush 3 Ml Syringe) 3 ml IVFLUSH QSHIFT [facility] Home Medications Medication Instructions Recorded Confirmed Last Taken Type montelukast 10 mg tablet 10 mg PO BEDTIME 08/02/20 11/13/21 11/11/21 History cyanocobalamin (vitamin B-12) 1,000 mcg PO DAILY 11/05/20 11/13/21 11/11/21 History 1,000 mcg tablet hydroxyzine HCl 25 mg tablet 1 tab PO TID PRN 12/12/20 11/13/21 11/11/21 History cholecalciferol (vitamin D3) 25 25 mcg PO DAILY 03/19/21 11/13/21 11/11/21 History mcg (1,000 unit) tablet losartan 100 mg tablet 1 tab PO DAILY 05/12/21 11/13/21 11/11/21 History lorazepam 0.5 mg tablet 1 tab PO DAILY PRN 10/12/21 11/13/21 11/11/21 History quetiapine 200 mg tablet 1 tab PO BEDTIME 10/12/21 11/13/21 11/11/21 History umeclidinium 62.5 mcg-vilanterol 1 puff INHALATION DAILY 10/12/21 11/13/21 11/11/21 History 25 mcg/actuation powdr for inhalation (Anoro Ellipta) omeprazole 20 mg capsule,delayed 1 cap PO DAILY 11/12/21 11/13/21 11/11/21 History release zolpidem 10 mg tablet 1 tab PO BEDTIME PRN 11/12/21 11/13/21 11/11/21 History azithromycin 250 mg tablet 250 mg PO MOWEFR 11/13/21 11/13/21 11/11/21 History escitalopram oxalate 10 mg tablet 1 tab PO DAILY 11/13/21 11/13/21 11/11/21 History Physical Exam Vital Signs: Vital Signs: Last Vital Signs Temp 98 F 11/13/21 00:29 Pulse 116 H 11/13/21 00:29 Resp 23 H 11/13/21 00:29 BP 122/62 11/13/21 00:29 Pulse Ox 98 11/13/21 00:29 BMI result Body Mass Index 47.6 Results Labs CBC & Chem 7: 11/14/21 06:00 11/14/21 06:00 Labs: Short CBC 11/12/21 11/12/21 11/12/21 Range/Units 14:53 14:53 23:10 WBC 16.5 H (4.8-10.8) X10*3/uL Hgb 12.4 (12.0-16.0) g/dl Hct 40.3 (37.0-47.0) % Plt Count 297 (160-400) X10*3/uL VBG pH (7.32-7.43) VBG pCO2 mmHg Creatinine 3.04 H 3.38 H (0.5-1.4) mg/dL 11/12/21 Range/Units 23:12 WBC (4.8-10.8) X10*3/uL Hgb (12.0-16.0) g/dl Hct (37.0-47.0) % Plt Count (160-400) X10*3/uL VBG pH 7.17 L* (7.32-7.43) VBG pCO2 53 mmHg Creatinine (0.5-1.4) mg/dL BMP 11/12/21 11/12/21 14:53 23:10 Sodium 136 136 Potassium 5.4 H D 7.3 H* D Chloride 103 107 Carbon Dioxide 23 21 L BUN 27 H 29 H Creatinine 3.04 H 3.38 H Calcium 10.1 D 9.1 D Liver Function 11/12/21 Range/Units 14:53 Total Bilirubin 0.6 (0.0-1.0) mg/dL AST 26 (5-31) U/L ALT 34 H (0-31) U/L Alkaline Phosphatase 73 (39-117) U/L Albumin 3.7 (3.5-5.0) g/dL Urine 11/12/21 Range/Units 22:15 Urine Color YELLOW Urine Appearance CLEAR Urine pH 5.5 (5.0-8.0) Ur Specific [place] >= 1.030 H (1.005-1.025) Urine Protein TRACE (NEG-TRACE) MG/DL Urine Glucose (UA) NEG (NEG) MG/DL
--- NOTE | 2021-11-13 03:14 | PC.NURSE ---
PT O2 decreasing low 80s while PT is in bed using CPAP. O2 fluctuating between 80s and 90s. PT is also exhibiting new twitching motions not demonstrated before now.
[2021-11-13] MEDS: Albuterol Sulfate (0.083%) 2.5 MG/3 ML VIAL.NEB 10 MG INHALE (03:43)
[2021-11-13] MEDS: Sodium Bicarbonate 8.4% 100 MEQ in Dextrose 5 % 900 ML 50 MEQ IV (03:54)
--- NOTE | 2021-11-13 06:22 | PC.NURSE ---
PT removed from CPAP and placed on O2 via NC at 4 L/min with sat at 97%. With history of COPD, PT titrated down to 2 L/min with O2 sat at 94%.
[2021-11-13 07:54] LABS: MANUAL DIFF FLAG NO
[2021-11-13 07:57] LABS: Venous Blood Gas Refer to POC result
[2021-11-13 07:58] LABS: VBG Base Excess -2.8 mmol/L; VBG HCO3 24 mmol/L (22-26); VBG pCO2 48 mmHg; VBG pH 7.29 (7.32-7.43); VBG pO2 134 mmHg
[2021-11-13 08:04] LABS: Basophils Percent Auto 0.2 % (0-2); Eosinophils Absolute Auto 0.1 X10*3/uL (0.0-0.4); Eosinophils Percent Auto 0.8 % (0-4); Hematocrit 36.9 % (37.0-47.0); Hemoglobin 11.2 g/dl (12.0-16.0); Imm Gran Pct Auto 0.7 % (0.0-0.4); Lymphocytes Absolute Auto 0.8 X10*3/uL (1.2-4.9); Lymphocytes Percent Auto 5.7 % (20-40); Mean Corpuscular HGB Conc 30.4 g/dl (31.0-35.0); Mean Corpuscular Hemoglobin 30.7 pg (27.0-33.0); Mean Corpuscular Volume 101.1 fL (80.0-98.0); Mean Platelet Volume 8.4 fL (9.4-12.3); Monocytes Absolute Auto 0.8 X10*3/uL (0.1-1.2); Monocytes Percent Auto 5.5 % (2-11); Neutrophils Absolute Auto 12.6 x10*3/uL (2.0-8.3); Neutrophils Percent Auto 87.1 % (45-73); Platelet Count 275 X10*3/uL (160-400); Red Blood Count 3.65 X10*6/uL (4.20-5.50); Red Cell Distribution Width 17.4 % (11.0-16.0); White Blood Count 14.5 X10*3/uL (4.8-10.8)
[2021-11-13 08:23] LABS: Anion Gap 13 (12-20); Blood Urea Nitrogen 26 mg/dL (9-16); Calcium 9.6 mg/dL (8.4-10.2); Carbon Dioxide 25 mmol/L (22-29); Chloride 107 mmol/L (96-108); Creatinine Clr Calc Pharmacy 33.1; Estimated Glomerular Filt Rate 26; Glucose Random 130 mg/dL (60-115); Potassium 4.4 mmol/L (3.3-5.1); Salicylate < 5.0 mg/dL (15-30); Sodium 141 mmol/L (135-145)
[2021-11-13] MEDS: 0.9 % Sodium Chloride 1,000 ML 100 ML IVCONT (08:29)
--- NOTE | 2021-11-13 09:38 | P.CONGS_ITS ---
History of Present Illness Consult details Consult date: 11/13/21 Narrative: 51-year-old female referred because of an abnormal CT scan. She was brought the emergency room last night because of altered mental status, deemed to be secondary to opiate overdose. She had history of a fall about [address] scan of the abdomen was done. This showed some distension of the right colon and transverse colon consistent with ileus. She otherwise seems to deny any history of abdominal pain. She does not provide much with regard to details of her history at this time. Her mental status has apparently improved after being reversed with Narcan. Review of Systems Constitutional: Constitutional: Denies chills and Denies fever(s) Cardiovascular: Cardiovascular: Denies chest pain at rest, Reports dyspnea and Reports dyspnea on exertion Respiratory: Respiratory: Reports dyspnea and Reports dyspnea on exertion Gastrointestinal: Gastrointestinal: Denies abdominal pain Genitourinary: Genitourinary: Denies difficulty voiding Neurologic: Reports behavioral changes and Reports confusion Psychiatric: Psychiatric: Reports behavioral changes and Reports confusion [facility] Past Medical History Medical History Anemia Arthritis Asthma Asthma exacerbation Asthma-COPD overlap syndrome Back pain Bronchitis Chronic pain syndrome Complex regional pain syndrome i of left lower limb Cough Depression Diabetic neuropathy Diet-controlled diabetes mellitus Disc degeneration, lumbosacral Dizziness Elevated lactic acid level Essential hypertension Fibromyalgia Headache Headache, migraine Hypogammaglobulinemia Hypothyroidism Laryngotracheitis Low back pain Morbid obesity Nausea vomiting and diarrhea BABATUNDE (obstructive sleep apnea) Pleuritic chest pain 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 Pulmonary embolism Sleep apnea 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 TIA (transient ischemic attack) Type 2 diabetes mellitus with unspecified complications Family History Family History Mother Diabetes Stroke Family/Other Diabetes Father Diabetes Surgical History Surgical History History of bariatric surgery History of cholecystectomy History of esophagogastroduodenoscopy (EGD) Hx of colonoscopy S/P total abdominal hysterectomy Social History Social History Household Members: Spouse Housing: House Do you presently have visiting nurse or other home services: No Alcohol intake: unknown Patient Tobacco Use Status: Never used Tobacco Advance Directives: No Advance Directives Information Provided: No Advance Directives Date on File: 05/23/21 service: No Current occupational status: unemployed and disabled Meds Allergies Allergy/AdvReac Type Severity Reaction Status Date / Time No Known Allergies Allergy Verified 11/03/21 13:47 Active Medications: Current Medications Acetaminophen (Acetaminophen 325 Mg Tablet) 650 mg PO Q6H PRN PRN Reason: Pain, Mild (Pain Scale 1-3) Docusate Sodium (Docusate Sodium 100 Mg Capsule) 100 mg PO DAILY PRN PRN Reason: Constipation Sodium Bicarbonate 100 meq/ (Dextrose) 1,000 mls @ 50 mls/hr IV .Q20H [facility] Last Admin: 11/13/21 03:54 Dose: 50 mls/hr Documented by: Sodium Chloride (Ns) 1,000 mls @ 100 mls/hr IVCONT .Q10H [facility] Last Admin: 11/13/21 08:29 Dose: 100 mls/hr Documented by: Lidocaine (Lidocaine 4 % Patch Adh..Patch) 1 patch TRANSDERMA DAILY [facility]; Protocol Ondansetron HCl (Ondansetron Hcl 4 Mg/2 Ml Vial) 4 mg IVPUSH Q8H PRN PRN Reason: Nausea and Vomiting Sodium Chloride (0.9 % Sodium Chloride Flush 3 Ml Syringe) 3 ml IVFLUSH QSHIFT [facility] Last Admin: 11/13/21 08:17 Dose: Not Given Documented by: Home Medications Medication Instructions Recorded Confirmed Last Taken Type montelukast 10 mg tablet 10 mg PO BEDTIME 08/02/20 10/12/21 05/22/21 History cyanocobalamin (vitamin B-12) 1,000 mcg PO DAILY 11/05/20 10/12/21 05/22/21 History 1,000 mcg tablet hydroxyzine HCl 25 mg tablet 1 tab PO TID PRN 12/12/20 10/12/21 05/22/21 History cholecalciferol (vitamin D3) 25 25 mcg PO DAILY 03/19/21 10/12/21 05/22/21 History mcg (1,000 unit) tablet losartan 100 mg tablet 1 tab PO DAILY 05/12/21 10/12/21 05/22/21 History lorazepam 0.5 mg tablet 1 tab PO DAILY PRN 10/12/21 10/12/21 Unknown History quetiapine 200 mg tablet 1 tab PO BEDTIME 10/12/21 10/12/21 Unknown History umeclidinium 62.5 mcg-vilanterol 1 puff INHALATION DAILY 10/12/21 10/12/21 Unknown History 25 mcg/actuation powdr for inhalation (Anoro Ellipta) omeprazole 20 mg capsule,delayed 1 cap PO DAILY 11/12/21 Unknown History release zolpidem 10 mg tablet 1 tab PO BEDTIME PRN 11/12/21 Unknown History Physical Exam Vital Signs: Vital Signs: Last Vital Signs Temp 98 F 11/13/21 00:29 Pulse 107 H 11/13/21 09:29 Resp 15 11/13/21 09:29 BP 134/76 11/13/21 09:29 Pulse Ox 96 11/13/21 09:29 BMI result Body Mass Index 47.6 Const: Other: Morbidly obese, very drowsy, although answers simple questions General: confusion; No no acute distress Orientation/consciousness: confusion Resp: Effort & Inspection: normal respiratory effort Cardio: Rhythm: regular rhythm GI: Other: Soft, obese, no apparent tenderness, no rebound or guarding Neuro: General: confusion Results Labs Result diagrams: 11/13/21 07:45 11/13/21 07:45 Labs: Abnormal lab results 11/12/21 11/12/21 11/12/21 Range/Units 14:53 14:53 14:53 WBC 16.5 H (4.8-10.8) X10*3/uL RBC 4.00 L (4.20-5.50) X10*6/uL Hgb (12.0-16.0) g/dl Hct (37.0-47.0) % MCV 100.8 H (80.0-98.0) fL MCHC 30.8 L (31.0-35.0) g/dl RDW 17.2 H (11.0-16.0) % MPV 8.4 L (9.4-12.3) fL Immature Gran % (Auto) 1.2 H (0.0-0.4) % Neut % (Auto) 84.9 H (45-73) % Lymph % (Auto) 6.7 L (20-40) % Lymph # (Auto) 1.1 L (1.2-4.9) X10*3/uL Abs Immat Gran (auto) 0.19 H (0.00-0.03) X10*3/uL Absolute Neuts (auto) 14.0 H (2.0-8.3) x10*3/uL PT 17.3 H (9.9-13.0) SEC INR 1.5 H (0.9-1.1) VBG pH (7.32-7.43) VBG HCO3 (22-26) mmol/L Potassium 5.4 H D (3.3-5.1) mmol/L Carbon Dioxide (22-29) mmol/L BUN 27 H (9-16) mg/dL Creatinine 3.04 H (0.5-1.4) mg/dL Random Glucose (60-115) mg/dL ALT 34 H (0-31) U/L Ur Specific [place] (1.005-1.025) Salicylates (15-30) mg/dL 11/12/21 11/12/21 11/12/21 Range/Units 22:15 23:10 23:12 WBC (4.8-10.8) X10*3/uL RBC (4.20-5.50) X10*6/uL Hgb (12.0-16.0) g/dl Hct (37.0-47.0) % MCV (80.0-98.0) fL MCHC (31.0-35.0) g/dl RDW (11.0-16.0) % MPV (9.4-12.3) fL Immature Gran % (Auto) (0.0-0.4) % Neut % (Auto) (45-73) % Lymph % (Auto) (20-40) % Lymph # (Auto) (1.2-4.9) X10*3/uL Abs Immat Gran (auto) (0.00-0.03) X10*3/uL Absolute Neuts (auto) (2.0-8.3) x10*3/uL PT (9.9-13.0) SEC INR (0.9-1.1) VBG pH 7.17 L* (7.32-7.43) VBG HCO3 19 L (22-26) mmol/L Potassium 7.3 H* D (3.3-5.1) mmol/L Carbon Dioxide 21 L (22-29) mmol/L BUN 29 H (9-16) mg/dL Creatinine 3.38 H (0.5-1.4) mg/dL Random Glucose 135 H (60-115) mg/dL ALT (0-31) U/L Ur Specific [place] >= 1.030 H (1.005-1.025) Salicylates (15-30) mg/dL 11/13/21 11/13/21 11/13/21 Range/Units 07:45 07:45 07:53 WBC 14.5 H (4.8-10.8) X10*3/uL RBC 3.65 L (4.20-5.50) X10*6/uL Hgb 11.2 L (12.0-16.0) g/dl Hct 36.9 L (37.0-47.0) % MCV 101.1 H (80.0-98.0) fL MCHC 30.4 L (31.0-35.0) g/dl RDW 17.4 H (11.0-16.0) % MPV 8.4 L (9.4-12.3) fL Immature Gran % (Auto) 0.7 H (0.0-0.4) % Neut % (Auto) 87.1 H (45-73) % Lymph % (Auto) 5.7 L (20-40) % Lymph # (Auto) 0.8 L (1.2-4.9) X10*3/uL Abs Immat Gran (auto) 0.10 H (0.00-0.03) X10*3/uL Absolute Neuts (auto) 12.6 H (2.0-8.3) x10*3/uL PT (9.9-13.0) SEC INR (0.9-1.1) VBG pH 7.29 L (7.32-7.43) VBG HCO3 (22-26) mmol/L Potassium (3.3-5.1) mmol/L Carbon Dioxide (22-29) mmol/L BUN 26 H (9-16) mg/dL Creatinine 1.98 H (0.5-1.4) mg/dL Random Glucose 130 H (60-115) mg/dL ALT (0-31) U/L Ur Specific [place] (1.005-1.025) Salicylates < 5.0 L (15-30) mg/dL Short CBC 11/12/21 11/13/21 Range/Units 14:53 07:45 WBC 16.5 H 14.5 H (4.8-10.8) X10*3/uL Hgb 12.4 11.2 L (12.0-16.0) g/dl Hct 40.3 36.9 L (37.0-47.0) % Plt Count 297 275 (160-400) X10*3/uL BMP 11/12/21 11/12/21 11/13/21 14:53 23:10 07:45 Sodium 136 136 141 Potassium 5.4 H D 7.3 H* D 4.4 D Chloride 103 107 107 Carbon Dioxide 23 21 L 25 BUN 27 H 29 H 26 H Creatinine 3.04 H 3.38 H 1.98 H Calcium 10.1 D 9.1 D 9.6 11/13/21 07:45 Sodium Cancelled Potassium Cancelled Chloride Cancelled Carbon Dioxide Cancelled BUN Cancelled Creatinine Cancelled Calcium Cancelled Liver Function 11/12/21 Range/Units 14:53 Total Bilirubin 0.6 (0.0-1.0) mg/dL AST 26 (5-31) U/L ALT 34 H (0-31) U/L Alkaline Phosphatase 73 (39-117) U/L Albumin 3.7 (3.5-5.0) g/dL Urine 11/12/21 Range/Units 22:15 Urine Color YELLOW Urine Appearance CLEAR Urine pH 5.5 (5.0-8.0) Ur Specific [place] >= 1.030 H (1.005-1.025) Urine Protein TRACE (NEG-TRACE) MG/DL Urine Glucose (UA) NEG (NEG) MG/DL All other labs normal. Assessment and Plan (1) Ileus: Status: Acute I have reviewed her CAT scan and this shows some dilatation of the right colon transverse colon. There is no transition point and there seems to be tapering of this dilatation at the area of the splenic flexure. Overall imaging study does not seem to suggest obstruction. She probably had some ileus because of her acute illness. She does not have any significant pain or tenderness. The rest of her care will be as per the hospitalist service. The patient has multiple medical comorbidities as well as acute issues. Procedures Date of Service Date of Service: 11/13/21
[2021-11-13] MEDS: ondansetron HCL 4 MG/2 ML VIAL IVPUSH ×2 (10:12→17:51)
--- NOTE | 2021-11-13 10:52 | PM.CNNEP ---
History of Present Illness Reason for Consult Consult date: 11/13/21 Chief Complaint Chief complaint: JF Leukocytosis History of Present Illness Narrative: 51-year-old female with? an extensive past medical history of asthma, chronic back pain, chronic pain syndrome, diabetes, depression, hypertension, fibromyalgia, migraine headaches, hypothyroidism, BABATUNDE, PE, TIA, who presents to the hospital with complaints of back pain.? patient received Dilaudid for back pain therefore she is very sleepy but arousable and able to give appropriate answers.? She reports the back pain started today but she had a fall about 3 days ago,she reports no chest pain, no shortness of breath,? she is reporting left lower and right lower quadrant abdominal pains, she deniesnausea or vomiting, no diarrhea constipation, no urinary symptoms although feels that she cannot PE, and no lower extremity edema.? No headache or change in vision.? K was 7.3 and corrected Creatiine is improving Review of Systems Review of Systems Yes all other systems are reviewed and are negative Constitutional: Denies chills and Denies fever(s) Cardiovascular: Denies chest pain at rest, Reports dyspnea and Reports dyspnea on exertion Respiratory: Reports dyspnea and Reports dyspnea on exertion Gastrointestinal: Denies abdominal pain Reports behavioral changes and Reports confusion Psychiatric: Reports behavioral changes and Reports confusion [facility] Past Medical History Medical History Anemia Arthritis Asthma Asthma exacerbation Asthma-COPD overlap syndrome Back pain Bronchitis Chronic pain syndrome Complex regional pain syndrome i of left lower limb Cough Depression Diabetic neuropathy Diet-controlled diabetes mellitus Disc degeneration, lumbosacral Dizziness Elevated lactic acid level Essential hypertension Fibromyalgia Headache Headache, migraine Hypogammaglobulinemia Hypothyroidism Laryngotracheitis Low back pain Morbid obesity Nausea vomiting and diarrhea BABATUNDE (obstructive sleep apnea) Pleuritic chest pain 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 Pulmonary embolism Sleep apnea 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 TIA (transient ischemic attack) Type 2 diabetes mellitus with unspecified complications Family History Family History Mother Diabetes Stroke Family/Other Diabetes Father Diabetes Surgical History Surgical History History of bariatric surgery History of cholecystectomy History of esophagogastroduodenoscopy (EGD) Hx of colonoscopy S/P total abdominal hysterectomy Social History Social History Household Members: Significant Other Housing: House Do you presently have visiting nurse or other home services: No Alcohol intake: unknown Patient Tobacco Use Status: Never used Tobacco e-Cigarette/Vaping Use: Never Used Advance Directives Date on File: 05/23/21 service: No Current occupational status: unemployed and disabled Meds Allergies Allergy/AdvReac Type Severity Reaction Status Date / Time No Known Allergies Allergy Verified 11/03/21 13:47 Active Medications: Current Medications Acetaminophen (Acetaminophen 325 Mg Tablet) 650 mg PO Q6H PRN PRN Reason: Pain, Mild (Pain Scale 1-3) Docusate Sodium (Docusate Sodium 100 Mg Capsule) 100 mg PO DAILY PRN PRN Reason: Constipation Sodium Bicarbonate 100 meq/ (Dextrose) 1,000 mls @ 50 mls/hr IV .Q20H [facility] Last Admin: 11/13/21 03:54 Dose: 50 mls/hr Documented by: Sodium Chloride (Ns) 1,000 mls @ 100 mls/hr IVCONT .Q10H [facility] Last Admin: 11/13/21 08:29 Dose: 100 mls/hr Documented by: Lidocaine (Lidocaine 4 % Patch Adh..Patch) 1 patch TRANSDERMA DAILY [facility]; Protocol Ondansetron HCl (Ondansetron Hcl 4 Mg/2 Ml Vial) 4 mg IVPUSH Q8H PRN PRN Reason: Nausea and Vomiting Last Admin: 11/13/21 10:12 Dose: 4 mg Documented by: Sodium Chloride (0.9 % Sodium Chloride Flush 3 Ml Syringe) 3 ml IVFLUSH QSHIFT [facility] Last Admin: 11/13/21 08:17 Dose: Not Given Documented by: Home Medications Medication Instructions Recorded Confirmed Last Taken Type montelukast 10 mg tablet 10 mg PO BEDTIME 08/02/20 11/13/21 11/11/21 History cyanocobalamin (vitamin B-12) 1,000 mcg PO DAILY 11/05/20 11/13/21 11/11/21 History 1,000 mcg tablet hydroxyzine HCl 25 mg tablet 1 tab PO TID PRN 12/12/20 11/13/21 11/11/21 History cholecalciferol (vitamin D3) 25 25 mcg PO DAILY 03/19/21 11/13/21 11/11/21 History mcg (1,000 unit) tablet losartan 100 mg tablet 1 tab PO DAILY 05/12/21 11/13/21 11/11/21 History lorazepam 0.5 mg tablet 1 tab PO DAILY PRN 10/12/21 11/13/21 11/11/21 History quetiapine 200 mg tablet 1 tab PO BEDTIME 10/12/21 11/13/21 11/11/21 History umeclidinium 62.5 mcg-vilanterol 1 puff INHALATION DAILY 10/12/21 11/13/21 11/11/21 History 25 mcg/actuation powdr for inhalation (Anoro Ellipta) omeprazole 20 mg capsule,delayed 1 cap PO DAILY 11/12/21 11/13/21 11/11/21 History release zolpidem 10 mg tablet 1 tab PO BEDTIME PRN 11/12/21 11/13/21 11/11/21 History azithromycin 250 mg tablet 250 mg PO MOWEFR 11/13/21 11/13/21 11/11/21 History escitalopram oxalate 10 mg tablet 1 tab PO DAILY 11/13/21 11/13/21 11/11/21 History Physical Exam Vital Signs: Last Vital Signs Temp 98 F 11/13/21 00:29 Pulse 107 H 11/13/21 09:29 Resp 15 11/13/21 09:29 BP 134/76 11/13/21 09:29 Pulse Ox 96 11/13/21 09:29 BMI result Body Mass Index 47.6 Const Other: Morbidly obese, very drowsy, although answers simple questions General: cooperative and confusion; No no acute distress Orientation/consciousness: confusion Eyes General: appearance normal, both eyes and all related structures Pupils: Equal, round and reactive pupils present Resp Other: Bilateral expiratory rhonchi Effort & Inspection: normal respiratory effort Auscultation: clear to auscultation bilaterally Cardio Other: Regular rate and rhythm without murmurs rubs or gallops Rate: regular rate Rhythm: regular rhythm GI Other: Soft, obese, no apparent tenderness, no rebound or guarding Palpation (GI): Soft to palpation Auscultation: normal bowel sounds Back/Spine/Pelvis Other: Tenderness along the lower thoracic and upper lumbar spine without crepitus or deformity noted Skin Other: Warm and dry General skin exam: no rashes or lesions noted Neuro Other: Nonfocal General: confusion Cranial nerves: Yes Equal, round and reactive pupils present Cognition (Neuro): normal cognition Extrem General: Yes normal to inspection and Yes no pedal edema Results Lab Results Result Diagrams: 11/14/21 06:00 11/14/21 06:00 Lab results: Chemistry 11/12/21 11/12/21 11/13/21 14:53 23:10 07:45 Sodium 136 136 141 Potassium 5.4 H D 7.3 H* D 4.4 D Carbon Dioxide 23 21 L 25 BUN 27 H 29 H 26 H Creatinine 3.04 H 3.38 H 1.98 H Calcium 10.1 D 9.1 D 9.6 11/13/21 07:45 Sodium Cancelled Potassium Cancelled Carbon Dioxide Cancelled BUN Cancelled Creatinine Cancelled Calcium Cancelled Hematology 11/12/21 11/13/21 14:53 07:45 WBC 16.5 H 14.5 H Hgb 12.4 11.2 L Plt Count 297 275 Urinalysis 11/12/21 22:15 Urine Color YELLOW Urine Appearance CLEAR Urine pH 5.5 Ur Specific [place] >= 1.030 H Urine Protein TRACE Urine Glucose (UA) NEG Urine Ketones NEG Urine Blood NEG Urine Nitrite NEG Ur Leukocyte Esterase NEG Assessment and Plan (1) Ileus: Status: Acute I have reviewed her CAT scan and this shows some dilatation of the right colon transverse colon. There is no transition point and there seems to be tapering of this dilatation at the area of the splenic flexure. Overall imaging study does not seem to suggest obstruction. She probably had some ileus because of her acute illness. She does not have any significant pain or tenderness. The rest of her care will be as per the hospitalist service. The patient has multiple medical comorbidities as well as acute issues. (2) Acute kidney injury: Status: Acute JF with Hyperkalemia and acidosis JF most likely from retention ( although CT did not show obstruction) The rapid improvement in creatinine and K is suggestive of retention DDX includes ATN /dehyration Suggest Check serum osmolarity and Osmolar gap Keep I > O Watch K Avoid nephrotoxins and narcotics No indication for dialysis Shall follow along Procedures Date of Service Date of Service: 11/13/21
--- NOTE | 2021-11-13 11:04 | P.CDIC_ITS ---
CDI Concurrent Query Documentation Clarification: PHYSICIAN'S DOCUMENTATION REQUEST Date of Query: 11/13/21 1104 Patient Name: Maye Johnson Admit Date: 11/12/21 Dear Doctor, A review of the medical record indicates additional documentation may be needed. Please review below and update the documentation accordingly. Risk Factors/Clinical Indicators/Treatments ICU note: encephalopathy Concern patients is becoming encephalopathic due to metabolic derangements. Minimally responsive, somnolent, Narcan patient became completely alter. Obtundated due to opiate overdose. Based on the above, please further specify, in the Progress Notes, the known or suspected type of the documented encephalopathic: * Metabolic * Septic * Toxic * Toxic metabolic * Due to a specified condition * Other (please specify) * Unable to determine Use of terms such as suspected, likely, concern for, or probable (associated with a specific diagnosis that is being evaluated, monitored, or treated as if it exists) are acceptable and can be coded in the inpatient setting, when documented at the time of discharge. Thank you, Laury Cortez [facility], CDIS Extension: [phone] Please use your independent medical judgment in providing your response. THIS QUERY IS PART OF THE PERMANENT MEDICAL RECORD Provider Response: Other Other Diagnosis: Toxic metabolic encephalopathy
[2021-11-13] MEDS: Lidocaine 4 % Patch ADH..PATCH 1 PATCH TRANSDERMA (11:09)
--- NOTE | 2021-11-13 12:33 | HO.PM.IMPN ---
Subjective Subjective Date of Service: 11/13/21 Interval History: the patient was seen and evaluated this morning Laying in bed, feels like going to the bathroom but not passing anything Reporting mild abdominal pain Denies any fever, chills or shortness of breath No reported other overnight events. Systemic review: No fever, chills but reports generalized weakness No chest pain, palpitation No shortness of breath or coughing Unable to pass gas, mild abdominal distension No urinary symptoms No any rash or wounds Physical Exam Vital Signs: Vital Signs: Last Vital Signs Temp 98 F 11/13/21 00:29 Pulse 107 H 11/13/21 09:29 Resp 15 11/13/21 09:29 BP 134/76 11/13/21 09:29 Pulse Ox 96 11/13/21 09:29 BMI result Body Mass Index 47.6 Const: Other: Constitutional : Alert, disoriented, not in distress Neck : Normal inspection, Supple Cardiovascular : RRR, S1 S2, no lower extremity edema Respiratory : Good bilateral air entry, no crackles, wheezes or rhonchi Gastrointestinal: soft, lax, decrease bowel sounds, Non tender Skin : Warm, Dry Neurological : Alert & disoriented, No focal deficit Objective Data Active Medications Acetaminophen (Acetaminophen 325 Mg Tablet) 650 mg PO Q6H PRN PRN Reason: Pain, Mild (Pain Scale 1-3) Docusate Sodium (Docusate Sodium 100 Mg Capsule) 100 mg PO DAILY PRN PRN Reason: Constipation Sodium Bicarbonate 100 meq/ (Dextrose) 1,000 mls @ 50 mls/hr IV .Q20H [facility] Last Admin: 11/13/21 03:54 Dose: 50 mls/hr Documented by: PURVI Sodium Chloride (Ns) 1,000 mls @ 100 mls/hr IVCONT .Q10H [facility] Last Admin: 11/13/21 08:29 Dose: 100 mls/hr Documented by: ISAIAS Lidocaine (Lidocaine 4 % Patch Adh..Patch) 1 patch TRANSDERMA DAILY [facility]; Protocol Last Admin: 11/13/21 11:09 Dose: 1 patch Documented by: ISAIAS Ondansetron HCl (Ondansetron Hcl 4 Mg/2 Ml Vial) 4 mg IVPUSH Q8H PRN PRN Reason: Nausea and Vomiting Last Admin: 11/13/21 10:12 Dose: 4 mg Documented by: ISAIAS Sodium Chloride (0.9 % Sodium Chloride Flush 3 Ml Syringe) 3 ml IVFLUSH QSHIFT [facility] Last Admin: 11/13/21 08:17 Dose: Not Given Documented by: ISAIAS Non-Admin Reason: IV Running Labs CBC & Chem 7: 11/13/21 07:45 11/13/21 07:45 Labs: Laboratory Results - last 24 hr 11/12/21 11/12/21 11/12/21 14:53 14:53 14:53 MCV 100.8 H MCH 31.0 MCHC 30.8 L RDW 17.2 H Plt Count 297 MPV 8.4 L Immature Gran % (Auto) 1.2 H Neut % (Auto) 84.9 H Lymph % (Auto) 6.7 L [place] % (Auto) 6.9 Eos % (Auto) 0.2 Baso % (Auto) 0.1 Lymph # (Auto) 1.1 L [place] # (Auto) 1.1 Eos # (Auto) 0.0 Baso # (Auto) 0.0 Abs Immat Gran (auto) 0.19 H Absolute Neuts (auto) 14.0 H Absolute Nucleated RBC 0.000 Nucleated RBC % (auto) 0.0 PT 17.3 H INR 1.5 H VBG pH VBG pCO2 VBG pO2 VBG HCO3 VBG O2 Saturation VBG Base Excess Anion Gap 15 Estim Creat Clear Calc 21.5 Estimated GFR 16 Random Glucose 107 Lactic Acid Calcium 10.1 D Total Bilirubin 0.6 AST 26 ALT 34 H Alkaline Phosphatase 73 Total Protein 6.6 Albumin 3.7 Urine Color Urine Appearance Urine pH Ur Specific Wilsey Urine Protein Urine Glucose (UA) Urine Ketones Urine Blood Urine Nitrite Ur Leukocyte Esterase Salicylates COVID-19 ([facility]) COVID-19 Clin Com 11/12/21 11/12/21 11/12/21 14:53 18:50 22:15 MCV MCH MCHC RDW Plt Count MPV Immature Gran % (Auto) Neut % (Auto) Lymph % (Auto) [place] % (Auto) Eos % (Auto) Baso % (Auto) Lymph # (Auto) [place] # (Auto) Eos # (Auto) Baso # (Auto) Abs Immat Gran (auto) Absolute Neuts (auto) Absolute Nucleated RBC Nucleated RBC % (auto) PT INR VBG pH VBG pCO2 VBG pO2 VBG HCO3 VBG O2 Saturation VBG Base Excess Anion Gap Estim Creat Clear Calc Estimated GFR Random Glucose Lactic Acid 1.9 Calcium Total Bilirubin AST ALT Alkaline Phosphatase Total Protein Albumin Urine Color YELLOW Urine Appearance CLEAR Urine pH 5.5 Ur Specific Wilsey >= 1.030 H Urine Protein TRACE Urine Glucose (UA) NEG Urine Ketones NEG Urine Blood NEG Urine Nitrite NEG Ur Leukocyte Esterase NEG Salicylates COVID-19 ([facility]) Negative COVID-19 Clin Com See Note 11/12/21 11/12/21 11/12/21 23:10 23:12 23:43 MCV MCH MCHC RDW Plt Count MPV Immature Gran % (Auto) Neut % (Auto) Lymph % (Auto) [place] % (Auto) Eos % (Auto) Baso % (Auto) Lymph # (Auto) [place] # (Auto) Eos # (Auto) Baso # (Auto) Abs Immat Gran (auto) Absolute Neuts (auto) Absolute Nucleated RBC Nucleated RBC % (auto) PT INR VBG pH 7.17 L* VBG pCO2 53 VBG pO2 99 VBG HCO3 19 L VBG O2 Saturation 95.0 VBG Base Excess -8.8 Anion Gap 15 Estim Creat Clear Calc 19.4 Estimated GFR 14 Random Glucose 135 H Lactic Acid 1.2 Calcium 9.1 D Total Bilirubin AST ALT Alkaline Phosphatase Total Protein Albumin Urine Color Urine Appearance Urine pH Ur Specific Wilsey Urine Protein Urine Glucose (UA) Urine Ketones Urine Blood Urine Nitrite Ur Leukocyte Esterase Salicylates COVID-19 ([facility]) COVID-19 Clin Com 11/13/21 11/13/21 11/13/21 07:45 07:45 07:45 MCV 101.1 H MCH 30.7 MCHC 30.4 L RDW 17.4 H Plt Count 275 MPV 8.4 L Immature Gran % (Auto) 0.7 H Neut % (Auto) 87.1 H Lymph % (Auto) 5.7 L [place] % (Auto) 5.5 Eos % (Auto) 0.8 Baso % (Auto) 0.2 Lymph # (Auto) 0.8 L [place] # (Auto) 0.8 Eos # (Auto) 0.1 Baso # (Auto) 0.0 Abs Immat Gran (auto) 0.10 H Absolute Neuts (auto) 12.6 H Absolute Nucleated RBC 0.000 Nucleated RBC % (auto) 0.0 PT INR VBG pH VBG pCO2 VBG pO2 VBG HCO3 VBG O2 Saturation VBG Base Excess Anion Gap 13 Cancelled Estim Creat Clear Calc 33.1 Cancelled Estimated GFR 26 Cancelled Random Glucose 130 H Cancelled Lactic Acid Calcium 9.6 Cancelled Total Bilirubin AST ALT Alkaline Phosphatase Total Protein Albumin Urine Color Urine Appearance Urine pH Ur Specific Wilsey Urine Protein Urine Glucose (UA) Urine Ketones Urine Blood Urine Nitrite Ur Leukocyte Esterase Salicylates < 5.0 L COVID-19 ([facility]) COVID-19 Clin Com 11/13/21 07:53 MCV MCH MCHC RDW Plt Count MPV Immature Gran % (Auto) Neut % (Auto) Lymph % (Auto) [place] % (Auto) Eos % (Auto) Baso % (Auto) Lymph # (Auto) [place] # (Auto) Eos # (Auto) Baso # (Auto) Abs Immat Gran (auto) Absolute Neuts (auto) Absolute Nucleated RBC Nucleated RBC % (auto) PT INR VBG pH 7.29 L VBG pCO2 48 VBG pO2 134 VBG HCO3 24 VBG O2 Saturation 97.0 VBG Base Excess -2.8 Anion Gap Estim Creat Clear Calc Estimated GFR Random Glucose Lactic Acid Calcium Total Bilirubin AST ALT Alkaline Phosphatase Total Protein Albumin Urine Color Urine Appearance Urine pH Ur Specific [place] Urine Protein Urine Glucose (UA) Urine Ketones Urine Blood Urine Nitrite Ur Leukocyte Esterase Salicylates COVID-19 ([facility]) COVID-19 Clin Com Assessment and Plan (1) Ileus: Status: Acute (2) Hyperkalemia: Status: Acute (3) Metabolic acidosis: Status: Acute (4) Acute kidney injury: Status: Acute Assessment and Plan: this is a 51-year-old female with extensive past medical history as mentioned above who presents to the hospital with back pain found to be dehydrated with JF, as well as have a hyperkalemia and other lab abnormalities # JF # metabolic acidosis Improving Could be from retention, dehydration or ATN Continue gentle IV fluids Nephrology input appreciated Pending salicylate acid, methanol and ethylene glycol levels follow BMP # leukocytosis likely reactive as there is no evidence of infection CT scan of the chest and abdomen showed only still ileus , with no evidence of infection, UA is negative Hold on IV antibiotics for now # Ileus abdomen is soft, no rebound or guardin General surgery input appreciated Start clear liquids when she started passing gas # hyperkalemia Improved given calcium gluconate, insulin with dextrose, sodium bicarb and albuterol as well as p.o. Kayexalate Monitor BMP # history of PE continue apixaban # toxic metabolic encephalopathy Secondary to acute kidney injury and receiving Dilaudid Improved after dose of Narcan and kidney function improvement will continue to monitor DVT PPX Eliquis Quality Stroke Does the patient have a stroke diagnosis?: No VTE Prior VTE?: No VTE Risk Level:: Medical - moderate - high VTE Device Contraindication: Treatment Not Indicated VTE Drug Contraindication: N/A - Med Ordered
--- NOTE | 2021-11-13 13:17 | PHA.MEDREC ---
Pharmacy Consult ? Medication Reconciliation Pharmacy has completed the medication reconciliation. [facility] contact patient's daught mami last night, so said she call in the AM. When I called her in the next day she did not know any of the medications but 3. Spoke with patient who recognized most of the names. Used claim history to determine the most accurate list based on her report. Alanna Martinez, ShivamD
--- NOTE | 2021-11-13 13:48 | PC.NURSE ---
pt pulled her IV out - educated r/t to using the call rayo and not pulling out her IV
[2021-11-13] MEDS: Apixaban 5 MG TABLET PO ×2 (13:57→20:06)
[2021-11-13 14:10] LABS: VBG HCO3 26 mmol/L (22-26); VBG pCO2 42 mmHg; VBG pH 7.39 (7.32-7.43); VBG pO2 122 mmHg
[2021-11-13 14:10] LABS: Venous Blood Gas Refer to POC result
[2021-11-13] MEDS: QUEtiapine Fumarate 200 MG TABLET PO (20:06)
[2021-11-13] MEDS: Acetaminophen 325 MG TABLET 650 MG PO (20:06)
[2021-11-13] MEDS: Montelukast Sodium 10 MG TABLET PO (20:06)
[2021-11-13] MEDS: Gabapentin 300 MG CAPSULE 600 MG PO (20:06)
[2021-11-13] MEDS: Lactated Ringers 1,000 ML 80 ML IVCONT (23:01)
[2021-11-14] VITALS: BP 124/63; PULSE 82; RESP 17; TEMP 36.5; O2SAT 94
[2021-11-14 03:29] VITALS: BP 139/63; PULSE 94; RESP 17; TEMP 36.7; O2SAT 98
[2021-11-14] MEDS: Acetaminophen 325 MG TABLET 650 MG PO ×3 (03:54→23:45)
[2021-11-14] MEDS: Omeprazole 20 MG CAPSULE.DR PO (05:27)
[2021-11-14 06:24] LABS: Hematocrit 31.5 % (37.0-47.0); Hemoglobin 9.8 g/dl (12.0-16.0); Mean Corpuscular HGB Conc 31.1 g/dl (31.0-35.0); Mean Corpuscular Hemoglobin 30.9 pg (27.0-33.0); Mean Corpuscular Volume 99.4 fL (80.0-98.0); Mean Platelet Volume 8.3 fL (9.4-12.3); Platelet Count 216 X10*3/uL (160-400); Red Blood Count 3.17 X10*6/uL (4.20-5.50); Red Cell Distribution Width 16.2 % (11.0-16.0); White Blood Count 7.9 X10*3/uL (4.8-10.8)
[2021-11-14 07:08] LABS: Blood Urea Nitrogen 16 mg/dL (9-16); Calcium 9.1 mg/dL (8.4-10.2); Creatinine Clr Calc Pharmacy 79.9; Estimated Glomerular Filt Rate > 60; Glucose Random 97 mg/dL (60-115)
[2021-11-14 07:56] LABS: Anion Gap 11 (12-20); Carbon Dioxide 28 mmol/L (22-29); Chloride 106 mmol/L (96-108); Potassium 3.7 mmol/L (3.3-5.1); Sodium 141 mmol/L (135-145)
[2021-11-14 08:00] VITALS: BP 127/60; RESP 18; TEMP 37.5; O2SAT 96
--- NOTE | 2021-11-14 08:12 | P.PNGS_ITS ---
Subjective Subjective Date of Service: 11/14/21 Interval history: Complaints of headache, nausea, diarrhea and abdominal pain Has had multiple BMs Seen ambulating in the room Much more alert Physical Exam Vital Signs: Vital Signs: Last Vital Signs Temp 98.1 F 11/14/21 03:29 Pulse 94 11/14/21 03:29 Resp 17 11/14/21 03:29 BP 139/63 11/14/21 03:29 Pulse Ox 98 11/14/21 03:29 BMI result Body Mass Index 47.6 Const: Other: Ambulating General: no acute distress Orientation/consciousness: patient oriented x3 Resp: Effort & Inspection: normal respiratory effort Cardio: Rate: regular rate GI: Other: Mild diffuse tenderness Palpation (GI): Soft to palpation, not firm and no guarding Neuro: General: patient oriented x3 Objective Data Active Medications Acetaminophen (Acetaminophen 325 Mg Tablet) 650 mg PO Q6H PRN PRN Reason: Pain, Mild (Pain Scale 1-3) Last Admin: 11/14/21 03:54 Dose: 650 mg Documented by: SUJIT Albuterol Sulfate (Albuterol Sulfate 90 Mcg 8 Gm Inhaler) 1 puff INHALE QID PRN PRN Reason: shortness of breath or wheezing Apixaban (Apixaban 5 Mg Tablet) 5 mg PO BID [facility] Last Admin: 11/13/21 20:06 Dose: 5 mg Documented by: SUJIT Benzonatate (Benzonatate 100 Mg Capsule) 200 mg PO TID PRN PRN Reason: cough Docusate Sodium (Docusate Sodium 100 Mg Capsule) 100 mg PO DAILY PRN PRN Reason: Constipation Escitalopram Oxalate (Escitalopram Oxalate 10 Mg Tablet) 10 mg PO DAILY [facility] Gabapentin (Gabapentin 300 Mg Capsule) 600 mg PO BID [facility] Last Admin: 11/13/21 20:06 Dose: 600 mg Documented by: SUJIT Hydroxyzine HCl (Hydroxyzine Hcl 25 Mg Tablet) 25 mg PO TID PRN PRN Reason: Anxiety Lactated Ringer's (Lr) 1,000 mls @ 80 mls/hr IVCONT .[id number] [facility] Last Admin: 11/13/21 23:01 Dose: 80 mls/hr Documented by: SUJIT Lidocaine (Lidocaine 4 % Patch Adh..Patch) 1 patch TRANSDERMA DAILY [facility]; Protocol Last Admin: 11/13/21 11:09 Dose: 1 patch Documented by: ISAIAS Lorazepam (Lorazepam 0.5 Mg Tablet) 0.5 mg PO DAILY PRN PRN Reason: anxiety Montelukast Sodium (Montelukast Sodium 10 Mg Tablet) 10 mg PO BEDTIME [facility] Last Admin: 11/13/21 20:06 Dose: 10 mg Documented by: SUJIT Omeprazole (Omeprazole 20 Mg Capsule.Dr) 20 mg PO DAILY@0630 [facility] Last Admin: 11/14/21 05:27 Dose: 20 mg Documented by: SUJIT Ondansetron HCl (Ondansetron Hcl 4 Mg/2 Ml Vial) 4 mg IVPUSH Q8H PRN PRN Reason: Nausea and Vomiting Last Admin: 11/13/21 17:51 Dose: 4 mg Documented by: ELIZABET Pharmacy Consult (Consult Rx Perform Med Rec) 1 each MISCELLANE ONCE PRN PRN Reason: Consult order Quetiapine Fumarate (Quetiapine Fumarate 200 Mg Tablet) 200 mg PO BEDTIME [facility] Last Admin: 11/13/21 20:06 Dose: 200 mg Documented by: SUJIT Sodium Chloride (0.9 % Sodium Chloride Flush 3 Ml Syringe) 3 ml IVFLUSH QSHIFT [facility] Last Admin: 11/13/21 23:53 Dose: Not Given Documented by: SUJIT Non-Admin Reason: IV Running Sucralfate (Sucralfate 1 Gm Tablet) 2 gm PO DAILY [facility] Zolpidem Tartrate (Zolpidem Tartrate 5 Mg Tablet) 5 mg PO BEDTIME PRN PRN Reason: Insomnia Labs CBC & Chem 7: 11/14/21 06:00 11/14/21 06:00 Labs: Laboratory Results - last 24 hr 11/13/21 11/13/21 11/14/21 07:45 14:06 06:00 MCV 99.4 H MCH 30.9 MCHC 31.1 RDW 16.2 H Plt Count 216 MPV 8.3 L Absolute Nucleated RBC 0.000 Nucleated RBC % (auto) 0.0 VBG pH 7.39 VBG pCO2 42 VBG pO2 122 VBG HCO3 26 VBG O2 Saturation 97.0 VBG Base Excess 1.0 Anion Gap 13 Estim Creat Clear Calc 33.1 Estimated GFR 26 Random Glucose 130 H Calcium 9.6 Magnesium Salicylates < 5.0 L 11/14/21 11/14/21 06:00 06:00 MCV MCH MCHC RDW Plt Count MPV Absolute Nucleated RBC Nucleated RBC % (auto) VBG pH VBG pCO2 VBG pO2 VBG HCO3 VBG O2 Saturation VBG Base Excess Anion Gap 11 L Estim Creat Clear Calc 79.9 Estimated GFR > 60 Random Glucose 97 Calcium 9.1 Magnesium 2.0 Salicylates Microbiology Microbiology Results: Microbiology 11/12/21 18:50 Blood Culture - Preliminary Blood - Venous No growth after 24 hours. 11/12/21 18:50 Blood Culture - Preliminary Blood - Venous No growth after 24 hours. Procedures Date of Service Date of Service: 11/14/21 Progress Note: A&P Assessment and plan (1) Ileus: Status: Acute Assessment and Plan: Now has been having a lot of diarrhea with nausea Abdomen soft and benign although with diffuse tenderness Have reviewed her CAT scan - suggestive more of ileus with distended right colon transverse, tapering without cut off WBC now normal Potassium, BUN and creatinine much improved No surgical issues at this time Will follow for abdominal exam Clear liquids and advanced as tolerated Check for C diff in view of diarrhea Fall Risk Details Current Medications: Current Medications Acetaminophen (Acetaminophen 325 Mg Tablet) 650 mg PO Q6H PRN PRN Reason: Pain, Mild (Pain Scale 1-3) Last Admin: 11/14/21 03:54 Dose: 650 mg Documented by: Albuterol Sulfate (Albuterol Sulfate 90 Mcg 8 Gm Inhaler) 1 puff INHALE QID PRN PRN Reason: shortness of breath or wheezing Apixaban (Apixaban 5 Mg Tablet) 5 mg PO BID [facility] Last Admin: 11/13/21 20:06 Dose: 5 mg Documented by: Benzonatate (Benzonatate 100 Mg Capsule) 200 mg PO TID PRN PRN Reason: cough Docusate Sodium (Docusate Sodium 100 Mg Capsule) 100 mg PO DAILY PRN PRN Reason: Constipation Escitalopram Oxalate (Escitalopram Oxalate 10 Mg Tablet) 10 mg PO DAILY [facility] Gabapentin (Gabapentin 300 Mg Capsule) 600 mg PO BID [facility] Last Admin: 11/13/21 20:06 Dose: 600 mg Documented by: Hydroxyzine HCl (Hydroxyzine Hcl 25 Mg Tablet) 25 mg PO TID PRN PRN Reason: Anxiety Lactated Ringer's (Lr) 1,000 mls @ 80 mls/hr IVCONT .[id number] [facility] Last Admin: 11/13/21 23:01 Dose: 80 mls/hr Documented by: Lidocaine (Lidocaine 4 % Patch Adh..Patch) 1 patch TRANSDERMA DAILY [facility]; Protocol Last Admin: 11/13/21 11:09 Dose: 1 patch Documented by: Lorazepam (Lorazepam 0.5 Mg Tablet) 0.5 mg PO DAILY PRN PRN Reason: anxiety Montelukast Sodium (Montelukast Sodium 10 Mg Tablet) 10 mg PO BEDTIME [facility] Last Admin: 11/13/21 20:06 Dose: 10 mg Documented by: Omeprazole (Omeprazole 20 Mg Capsule.Dr) 20 mg PO DAILY@0630 [facility] Last Admin: 11/14/21 05:27 Dose: 20 mg Documented by: Ondansetron HCl (Ondansetron Hcl 4 Mg/2 Ml Vial) 4 mg IVPUSH Q8H PRN PRN Reason: Nausea and Vomiting Last Admin: 11/13/21 17:51 Dose: 4 mg Documented by: Pharmacy Consult (Consult Rx Perform Med Rec) 1 each MISCELLANE ONCE PRN PRN Reason: Consult order Quetiapine Fumarate (Quetiapine Fumarate 200 Mg Tablet) 200 mg PO BEDTIME [facility] Last Admin: 11/13/21 20:06 Dose: 200 mg Documented by: Sodium Chloride (0.9 % Sodium Chloride Flush 3 Ml Syringe) 3 ml IVFLUSH QSHIFT [facility] Last Admin: 11/13/21 23:53 Dose: Not Given Documented by: Sucralfate (Sucralfate 1 Gm Tablet) 2 gm PO DAILY [facility] Zolpidem Tartrate (Zolpidem Tartrate 5 Mg Tablet) 5 mg PO BEDTIME PRN PRN Reason: Insomnia Time Spent With Patient Time: Total time spent is greater than 50% in coordination of care (as documented) at patient's floor/unit and/or counseling patient: Time with patient: 15 - 24 minutes Quality Stroke Does the patient have a stroke diagnosis?: No VTE Prior VTE?: No VTE Risk Level:: Medical - moderate - high VTE Device Contraindication: Treatment Not Indicated VTE Drug Contraindication: N/A - Med Ordered
[2021-11-14] MEDS: Sucralfate 1 GM TABLET 2 GM PO (08:38)
[2021-11-14] MEDS: Escitalopram Oxalate 10 MG TABLET PO (08:39)
[2021-11-14] MEDS: ondansetron HCL 4 MG/2 ML VIAL IVPUSH (08:39)
[2021-11-14] MEDS: Apixaban 5 MG TABLET PO ×2 (08:39→23:35)
[2021-11-14] MEDS: Gabapentin 300 MG CAPSULE 600 MG PO ×2 (08:39→23:35)
[2021-11-14] MEDS: Lactated Ringers 1,000 ML 80 ML IVCONT (08:40)
[2021-11-14] MEDS: Lidocaine 4 % Patch ADH..PATCH 1 PATCH TRANSDERMA (08:40)
[2021-11-14] MEDS: Morphine Sulfate 2 MG/ML CARTRIDGE IVPUSH (10:01)
[2021-11-14] MEDS: Butalb/Acetamin/Caff 50/325/40 TABLET 1 TAB PO (10:01)
[2021-11-14] MEDS: 0.9 % Sodium Chloride Flush 3 ML SYRINGE IVFLUSH ×2 (10:02→23:36)
--- NOTE | 2021-11-14 11:17 | PM.PNNEP ---
Subjective Subjective Date of Service: 11/15/21 Interval history: c/o pain Physical Exam Vital Signs: Vital Signs: Last Vital Signs Temp 99.5 F 11/14/21 08:00 Pulse 94 11/14/21 03:29 Resp 18 11/14/21 08:00 BP 127/60 11/14/21 08:00 Pulse Ox 96 11/14/21 08:00 BMI result Body Mass Index 47.6 Const: Other: Morbidly obese, very drowsy, although answers simple questions General: cooperative and confusion; No no acute distress Orientation/consciousness: confusion Eyes: General: appearance normal, both eyes and all related structures Pupils: Equal, round and reactive pupils present Resp: Other: Bilateral expiratory rhonchi Effort & Inspection: normal respiratory effort Auscultation: clear to auscultation bilaterally Cardio: Other: Regular rate and rhythm without murmurs rubs or gallops Rate: regular rate Rhythm: regular rhythm GI: Other: Soft, obese, no apparent tenderness, no rebound or guarding Palpation (GI): Soft to palpation Auscultation: normal bowel sounds Back/Spine/Pelvis: Other: Tenderness along the lower thoracic and upper lumbar spine without crepitus or deformity noted Skin: Other: Warm and dry General skin exam: no rashes or lesions noted Neuro: Other: Nonfocal General: confusion Cranial nerves: Yes Equal, round and reactive pupils present Cognition (Neuro): normal cognition Extrem: General: Yes normal to inspection and Yes no pedal edema Objective Data Labs CBC & Chem 7: 11/15/21 05:07 11/15/21 05:07 Labs: Laboratory Results - last 24 hr 11/13/21 11/14/21 11/14/21 14:06 06:00 06:00 WBC 7.9 RBC 3.17 L Hgb 9.8 L Hct 31.5 L MCV 99.4 H MCH 30.9 MCHC 31.1 RDW 16.2 H Plt Count 216 MPV 8.3 L Absolute Nucleated RBC 0.000 Nucleated RBC % (auto) 0.0 VBG pH 7.39 VBG pCO2 42 VBG pO2 122 VBG HCO3 26 VBG O2 Saturation 97.0 VBG Base Excess 1.0 Sodium 141 Potassium 3.7 Chloride 106 Carbon Dioxide 28 Anion Gap 11 L BUN 16 Creatinine 0.82 Estim Creat Clear Calc 79.9 Estimated GFR > 60 Random Glucose 97 Calcium 9.1 Magnesium 01/14/22 06:00 WBC RBC Hgb Hct MCV MCH MCHC RDW Plt Count MPV Absolute Nucleated RBC Nucleated RBC % (auto) VBG pH VBG pCO2 VBG pO2 VBG HCO3 VBG O2 Saturation VBG Base Excess Sodium Potassium Chloride Carbon Dioxide Anion Gap BUN Creatinine Estim Creat Clear Calc Estimated GFR Random Glucose Calcium Magnesium 2.0 Microbiology Microbiology Results: Microbiology 11/12/21 18:50 Blood - Venous Blood Culture - Preliminary No growth after 24 hours. 11/12/21 18:50 Blood - Venous Blood Culture - Preliminary No growth after 24 hours. Procedures Date of Service Date of Service: 11/14/21 Assessment & Plan Assessment and plan (1) Ileus: Status: Acute (2) Acute kidney injury: Status: Acute Assessment and Plan: JF with Hyperkalemia and acidosis JF most likely from retention ( although CT did not show obstruction) The rapid improvement in creatinine and K is suggestive of retention DDX includes ATN /dehyration Anemia- HCT is trending down Suggest Keep I > O Watch K Avoid nephrotoxins and narcotics Shall follow along Time Spent With Patient Time: Total time spent is greater than 50% in coordination of care (as documented) at patient's floor/unit and/or counseling patient: Time with patient: 15 - 24 minutes Progress Note: Quality Stroke Does the patient have a stroke diagnosis?: No
--- NOTE | 2021-11-14 11:51 | P.PNIM_ITS ---
Subjective Subjective Date of Service: 11/14/21 Interval History: the patient was seen and evaluated this morning Laying in bed, feels weak and still having pain Reporting mild abdominal pain and diarrhea No reported other overnight events. Systemic review: No fever, chills but reports generalized weakness No chest pain, palpitation No shortness of breath or coughing Having abdominal pain and diarrhea No urinary symptoms No any rash or wounds Physical Exam Vital Signs: Vital Signs: Last Vital Signs Temp 99.5 F 11/14/21 08:00 Pulse 94 11/14/21 03:29 Resp 18 11/14/21 08:00 BP 127/60 11/14/21 08:00 Pulse Ox 96 11/14/21 08:00 BMI result Body Mass Index 47.6 Const: Other: Constitutional : Alert, disoriented, not in distress Neck : Normal inspection, Supple Cardiovascular : RRR, S1 S2, no lower extremity edema Respiratory : Good bilateral air entry, no crackles, wheezes or rhonchi Gastrointestinal: soft, lax, decrease bowel sounds, generalized tenderness, no surgical signs Skin : Warm, Dry Neurological : Alert & disoriented, No focal deficit Objective Data Active Medications Acetaminophen (Acetaminophen 325 Mg Tablet) 650 mg PO Q6H PRN PRN Reason: Pain, Mild (Pain Scale 1-3) Last Admin: 11/14/21 03:54 Dose: 650 mg Documented by: SUJIT Acetaminophen/Butalbital/Caffeine (Butalb/Acetamin/Caff 50/325/40 Tablet) 1 tab PO Q4H PRN PRN Reason: Pain, Severe (Pain Scale 7-10) Last Admin: 11/14/21 10:01 Dose: 1 tab Documented by: ROBERTH Albuterol Sulfate (Albuterol Sulfate 90 Mcg 8 Gm Inhaler) 1 puff INHALE QID PRN PRN Reason: shortness of breath or wheezing Apixaban (Apixaban 5 Mg Tablet) 5 mg PO BID [facility] Last Admin: 11/14/21 08:39 Dose: 5 mg Documented by: ROBERTH Benzonatate (Benzonatate 100 Mg Capsule) 200 mg PO TID PRN PRN Reason: cough Docusate Sodium (Docusate Sodium 100 Mg Capsule) 100 mg PO DAILY PRN PRN Reason: Constipation Escitalopram Oxalate (Escitalopram Oxalate 10 Mg Tablet) 10 mg PO DAILY [facility] Last Admin: 11/14/21 08:39 Dose: 10 mg Documented by: ROBERTH Gabapentin (Gabapentin 300 Mg Capsule) 600 mg PO BID [facility] Last Admin: 11/14/21 08:39 Dose: 600 mg Documented by: ROBERTH Hydroxyzine HCl (Hydroxyzine Hcl 25 Mg Tablet) 25 mg PO TID PRN PRN Reason: Anxiety Lidocaine (Lidocaine 4 % Patch Adh..Patch) 1 patch TRANSDERMA DAILY [facility]; Protocol Last Admin: 11/14/21 08:40 Dose: 1 patch Documented by: ROBERTH Lorazepam (Lorazepam 0.5 Mg Tablet) 0.5 mg PO DAILY PRN PRN Reason: anxiety Montelukast Sodium (Montelukast Sodium 10 Mg Tablet) 10 mg PO BEDTIME [facility] Last Admin: 11/13/21 20:06 Dose: 10 mg Documented by: SUJIT Omeprazole (Omeprazole 20 Mg Capsule.Dr) 20 mg PO DAILY@0630 [facility] Last Admin: 11/14/21 05:27 Dose: 20 mg Documented by: SUJIT Ondansetron HCl (Ondansetron Hcl 4 Mg/2 Ml Vial) 4 mg IVPUSH Q8H PRN PRN Reason: Nausea and Vomiting Last Admin: 11/14/21 08:39 Dose: 4 mg Documented by: ROBERTH Pharmacy Consult (Consult Rx Perform Med Rec) 1 each MISCELLANE ONCE PRN PRN Reason: Consult order Quetiapine Fumarate (Quetiapine Fumarate 200 Mg Tablet) 200 mg PO BEDTIME [facility] Last Admin: 11/13/21 20:06 Dose: 200 mg Documented by: SUJIT Sodium Chloride (0.9 % Sodium Chloride Flush 3 Ml Syringe) 3 ml IVFLUSH QSHIFT [facility] Last Admin: 11/14/21 10:02 Dose: 3 ml Documented by: ROBERTH Sucralfate (Sucralfate 1 Gm Tablet) 2 gm PO DAILY [facility] Last Admin: 11/14/21 08:38 Dose: 2 gm Documented by: ROBERTH Zolpidem Tartrate (Zolpidem Tartrate 5 Mg Tablet) 5 mg PO BEDTIME PRN PRN Reason: Insomnia Labs CBC & Chem 7: 11/14/21 06:00 11/14/21 06:00 Labs: Laboratory Results - last 24 hr 11/13/21 11/14/2111/14/22 14:06 06:00 06:00 MCV 99.4 H MCH 30.9 MCHC 31.1 RDW 16.2 H Plt Count 216 MPV 8.3 L Absolute Nucleated RBC 0.000 Nucleated RBC % (auto) 0.0 VBG pH 7.39 VBG pCO2 42 VBG pO2 122 VBG HCO3 26 VBG O2 Saturation 97.0 VBG Base Excess 1.0 Anion Gap 11 L Estim Creat Clear Calc 79.9 Estimated GFR > 60 Random Glucose 97 Calcium 9.1 Magnesium 11/14/21 06:00 MCV MCH MCHC RDW Plt Count MPV Absolute Nucleated RBC Nucleated RBC % (auto) VBG pH VBG pCO2 VBG pO2 VBG HCO3 VBG O2 Saturation VBG Base Excess Anion Gap Estim Creat Clear Calc Estimated GFR Random Glucose Calcium Magnesium 2.0 Microbiology Microbiology Results: Microbiology 11/12/21 18:50 Blood Culture - Preliminary Blood - Venous No growth after 24 hours. 11/12/21 18:50 Blood Culture - Preliminary Blood - Venous No growth after 24 hours. Assessment and Plan (1) Ileus: Status: Acute (2) Metabolic acidosis: Status: Acute (3) Hyperkalemia: Status: Acute (4) Acute kidney injury: Status: Acute Assessment and Plan: this is a 51-year-old female with extensive past medical history as mentioned above who presents to the hospital with back pain found to be dehydrated with JF, as well as have a hyperkalemia and other lab abnormalities # diarrhea Post ileus To check for C diff If negative consider using Imodium # JF # metabolic acidosis Improving Could be from retention, dehydration or ATN Continue gentle IV fluids Nephrology input appreciated Pending salicylate acid, methanol and ethylene glycol levels follow BMP # leukocytosis Resolved, likely reactive as there is no evidence of infection CT scan of the chest and abdomen showed only still ileus , with no evidence of infection, UA is negative Hold on IV antibiotics for now # Ileus Improved, having bowel movement General surgery input appreciated Advanced diet to regular # hyperkalemia Improved given calcium gluconate, insulin with dextrose, sodium bicarb and albuterol as well as p.o. Kayexalate Monitor BMP # history of PE continue apixaban # toxic metabolic encephalopathy Improved Avoid medications that might altered her mentation continue to monitor DVT PPX Eliquis Quality Stroke Does the patient have a stroke diagnosis?: No VTE Prior VTE?: No VTE Risk Level:: Medical - moderate - high VTE Device Contraindication: Treatment Not Indicated VTE Drug Contraindication: N/A - Med Ordered
[2021-11-14 11:57] VITALS: BP 159/76; PULSE 78; RESP 24; TEMP 36.2; O2SAT 96
--- NOTE | 2021-11-14 13:34 | MHC.CM.PN ---
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
--- NOTE | 2021-11-14 15:14 | MHC.CM.PN ---
PATIENT SYMPTOMS SLOWLY IMPROVING. NO PLAN FOR DISCHARGE TODAY
[2021-11-14 15:43] VITALS: BP 146/83; PULSE 82; RESP 16; TEMP 37.3; O2SAT 94
[2021-11-14] MEDS: LORazepam 0.5 MG TABLET PO (17:48)
[2021-11-14] MEDS: Benzonatate 100 MG CAPSULE 200 MG PO (17:48)
[2021-11-14 18:50] LABS: Leukocytes Stool Qualitative NEGATIVE (NEGATIVE)
[2021-11-14 20:00] VITALS: BP 162/79; PULSE 79; RESP 16; TEMP 36.3; O2SAT 96
[2021-11-14 20:04] LABS: CDiff Gene PCR NEGATIVE (Negative)
[2021-11-14] MEDS: Zolpidem Tartrate 5 MG TABLET PO (23:34)
[2021-11-14] MEDS: Montelukast Sodium 10 MG TABLET PO (23:34)
[2021-11-14] MEDS: QUEtiapine Fumarate 200 MG TABLET PO (23:35)
[2021-11-15 00:32] LABS: Ethylene Glycol NONE DETECTED (NONE DETECTED)
[2021-11-15 00:49] VITALS: BP 109/56; PULSE 89; RESP 20; TEMP 36.2; O2SAT 93
[2021-11-15 05:44] LABS: Hematocrit 31.7 % (37.0-47.0); Hemoglobin 9.9 g/dl (12.0-16.0); Mean Corpuscular HGB Conc 31.2 g/dl (31.0-35.0); Mean Corpuscular Hemoglobin 30.9 pg (27.0-33.0); Mean Corpuscular Volume 99.1 fL (80.0-98.0); Mean Platelet Volume 8.6 fL (9.4-12.3); Platelet Count 256 X10*3/uL (160-400); Red Cell Distribution Width 15.9 % (11.0-16.0)
[2021-11-15 05:55] LABS: Anion Gap 10 (12-20); Blood Urea Nitrogen 14 mg/dL (9-16); Calcium 9.2 mg/dL (8.4-10.2); Carbon Dioxide 31 mmol/L (22-29); Chloride 108 mmol/L (96-108); Creatinine Clr Calc Pharmacy 70.4; Estimated Glomerular Filt Rate > 60; Glucose Random 85 mg/dL (60-115); Potassium 3.7 mmol/L (3.3-5.1); Sodium 145 mmol/L (135-145)
[2021-11-15] MEDS: Omeprazole 20 MG CAPSULE.DR PO ×2 (06:31→18:30)
[2021-11-15 08:00] VITALS: BP 125/60; PULSE 67; RESP 18; TEMP 37.1; O2SAT 97
[2021-11-15] MEDS: Lidocaine 4 % Patch ADH..PATCH 1 PATCH TRANSDERMA (09:54)
[2021-11-15] MEDS: 0.9 % Sodium Chloride Flush 3 ML SYRINGE IVFLUSH ×3 (09:54→20:44)
[2021-11-15] MEDS: Apixaban 5 MG TABLET PO ×2 (09:55→20:45)
[2021-11-15] MEDS: Gabapentin 300 MG CAPSULE 600 MG PO ×2 (09:55→20:44)
[2021-11-15] MEDS: Acetaminophen 325 MG TABLET 650 MG PO (09:55)
[2021-11-15] MEDS: Loperamide HCl 2 MG CAPSULE PO (09:55)
[2021-11-15] MEDS: Sucralfate 1 GM TABLET 2 GM PO (09:55)
[2021-11-15] MEDS: Escitalopram Oxalate 10 MG TABLET PO (09:55)
--- NOTE | 2021-11-15 11:31 | HO.PM.IMPN ---
Subjective Subjective Date of Service: 11/15/21 Interval History: the patient was seen and evaluated this morning Laying in bed, feels Better and tolerating more diet Still having mild abdominal pain and diarrhea No reported other overnight events. Systemic review: No fever, chills but reports generalized weakness No chest pain, palpitation No shortness of breath or coughing Having abdominal pain and diarrhea No urinary symptoms No any rash or wounds Physical Exam Vital Signs: Vital Signs: Last Vital Signs Temp 98.8 F 11/15/21 08:00 Pulse 67 11/15/21 08:00 Resp 18 11/15/21 08:00 BP 125/60 11/15/21 08:00 Pulse Ox 97 11/15/21 08:00 BMI result Body Mass Index 47.6 Const: Other: Constitutional : Alert, disoriented, not in distress Neck : Normal inspection, Supple Cardiovascular : RRR, S1 S2, no lower extremity edema Respiratory : Good bilateral air entry, no crackles, wheezes or rhonchi Gastrointestinal: soft, lax, decrease bowel sounds, generalized tenderness, no surgical signs Skin : Warm, Dry Neurological : Alert & disoriented, No focal deficit Objective Data Active Medications Acetaminophen (Acetaminophen 325 Mg Tablet) 650 mg PO Q6H PRN PRN Reason: Pain, Mild (Pain Scale 1-3) Last Admin: 11/15/21 09:55 Dose: 650 mg Documented by: SUNITA Acetaminophen/Butalbital/Caffeine (Butalb/Acetamin/Caff 50/325/40 Tablet) 1 tab PO Q4H PRN PRN Reason: Pain, Severe (Pain Scale 7-10) Last Admin: 11/14/21 10:01 Dose: 1 tab Documented by: ROBERTH Albuterol Sulfate (Albuterol Sulfate 90 Mcg 8 Gm Inhaler) 1 puff INHALE QID PRN PRN Reason: shortness of breath or wheezing Apixaban (Apixaban 5 Mg Tablet) 5 mg PO BID [facility] Last Admin: 11/15/21 09:55 Dose: 5 mg Documented by: SUNITA Benzonatate (Benzonatate 100 Mg Capsule) 200 mg PO TID PRN PRN Reason: cough Last Admin: 11/14/21 17:48 Dose: 200 mg Documented by: SUNITA Docusate Sodium (Docusate Sodium 100 Mg Capsule) 100 mg PO DAILY PRN PRN Reason: Constipation Escitalopram Oxalate (Escitalopram Oxalate 10 Mg Tablet) 10 mg PO DAILY [facility] Last Admin: 11/15/21 09:55 Dose: 10 mg Documented by: SUNITA Gabapentin (Gabapentin 300 Mg Capsule) 600 mg PO BID [facility] Last Admin: 11/15/21 09:55 Dose: 600 mg Documented by: SUNITA Hydroxyzine HCl (Hydroxyzine Hcl 25 Mg Tablet) 25 mg PO TID PRN PRN Reason: Anxiety Lidocaine (Lidocaine 4 % Patch Adh..Patch) 1 patch TRANSDERMA DAILY [facility]; Protocol Last Admin: 11/15/21 09:54 Dose: 1 patch Documented by: SUNITA Loperamide HCl (Loperamide Hcl 2 Mg Capsule) 2 mg PO Q4H PRN PRN Reason: Diarrhea Last Admin: 11/15/21 09:55 Dose: 2 mg Documented by: SUNITA Lorazepam (Lorazepam 0.5 Mg Tablet) 0.5 mg PO DAILY PRN PRN Reason: anxiety Last Admin: 11/14/21 17:48 Dose: 0.5 mg Documented by: SUNITA Montelukast Sodium (Montelukast Sodium 10 Mg Tablet) 10 mg PO BEDTIME [facility] Last Admin: 11/14/21 23:34 Dose: 10 mg Documented by: HOLDEN Omeprazole (Omeprazole 20 Mg Capsule.Dr) 20 mg PO DAILY@0630 [facility] Last Admin: 11/15/21 06:31 Dose: 20 mg Documented by: HOLDEN Ondansetron HCl (Ondansetron Hcl 4 Mg/2 Ml Vial) 4 mg IVPUSH Q8H PRN PRN Reason: Nausea and Vomiting Last Admin: 11/14/21 08:39 Dose: 4 mg Documented by: ROBERTH Pharmacy Consult (Consult Rx Perform Med Rec) 1 each MISCELLANE ONCE PRN PRN Reason: Consult order Quetiapine Fumarate (Quetiapine Fumarate 200 Mg Tablet) 200 mg PO BEDTIME [facility] Last Admin: 11/14/21 23:35 Dose: 200 mg Documented by: HOLDEN Sodium Chloride (0.9 % Sodium Chloride Flush 3 Ml Syringe) 3 ml IVFLUSH QSHIFT [facility] Last Admin: 11/15/21 09:54 Dose: 3 ml Documented by: SUNITA Sucralfate (Sucralfate 1 Gm Tablet) 2 gm PO DAILY [facility] Last Admin: 11/15/21 09:55 Dose: 2 gm Documented by: SUNITA Zolpidem Tartrate (Zolpidem Tartrate 5 Mg Tablet) 5 mg PO BEDTIME PRN PRN Reason: Insomnia Last Admin: 11/14/21 23:34 Dose: 5 mg Documented by: HOLDEN Labs CBC & Chem 7: 11/15/21 05:07 11/15/21 05:07 Labs: Laboratory Results - last 24 hr 11/13/21 11/14/21 11/14/21 07:45 17:50 17:50 MCV MCH MCHC RDW Plt Count MPV Absolute Nucleated RBC Nucleated RBC % (auto) Anion Gap Estim Creat Clear Calc Estimated GFR Random Glucose Calcium Magnesium Stool Leukocytes, Qual NEGATIVE Ethylene Glycol NONE DETECTED C. difficile Tox B Gene NEGATIVE 11/15/21 11/15/21 05:07 05:07 MCV 99.1 H MCH 30.9 MCHC 31.2 RDW 15.9 Plt Count 256 MPV 8.6 L Absolute Nucleated RBC 0.000 Nucleated RBC % (auto) 0.0 Anion Gap 10 L Estim Creat Clear Calc 70.4 Estimated GFR > 60 Random Glucose 85 Calcium 9.2 Magnesium 2.0 Stool Leukocytes, Qual Ethylene Glycol C. difficile Tox B Gene Microbiology Microbiology Results: Microbiology 11/12/21 18:50 Blood Culture - Preliminary Blood - Venous No growth after 48 hours. 11/12/21 18:50 Blood Culture - Preliminary Blood - Venous No growth after 48 hours. Assessment and Plan (1) Ileus: Status: Acute (2) Metabolic acidosis: Status: Acute (3) Hyperkalemia: Status: Acute (4) Acute kidney injury: Status: Acute Assessment and Plan: this is a 51-year-old female with extensive past medical history as mentioned above who presents to the hospital with back pain found to be dehydrated with JF, as well as have a hyperkalemia and other lab abnormalities # diarrhea Post ileus resolved Negative for C diff As needed Imodium # JF # metabolic acidosis Improving Could be from retention, dehydration or ATN Discontinue IV fluids Nephrology input appreciated Negative salicylate acid, methanol and ethylene glycol levels follow BMP # leukocytosis Resolved, likely reactive as there is no evidence of infection CT scan of the chest and abdomen showed only still ileus , with no evidence of infection, UA is negative Hold on IV antibiotics for now # Ileus Improved, having bowel movement General surgery input appreciated Advanced diet to regular # hyperkalemia Improved given calcium gluconate, insulin with dextrose, sodium bicarb and albuterol as well as p.o. Kayexalate Monitor BMP # history of PE continue apixaban # toxic metabolic encephalopathy Improved Avoid medications that might altered her mentation continue to monitor DVT PPX Eliquis Quality Stroke Does the patient have a stroke diagnosis?: No VTE Prior VTE?: No VTE Risk Level:: Medical - moderate - high VTE Device Contraindication: Treatment Not Indicated VTE Drug Contraindication: N/A - Med Ordered
[2021-11-15 11:55] VITALS: BP 137/73; PULSE 72; RESP 18; TEMP 36.4; O2SAT 98
--- NOTE | 2021-11-15 12:53 | PM.PNNEP ---
Subjective Subjective Date of Service: 11/16/21 Interval history: Events noted Physical Exam Vital Signs: Vital Signs: Last Vital Signs Temp 97.5 F 11/15/21 11:55 Pulse 72 11/15/21 11:55 Resp 18 11/15/21 11:55 BP 137/73 11/15/21 11:55 Pulse Ox 98 11/15/21 11:55 BMI result Body Mass Index 47.6 Const: Other: Morbidly obese, very drowsy, although answers simple questions General: cooperative and confusion; No no acute distress Orientation/consciousness: confusion Eyes: General: appearance normal, both eyes and all related structures Pupils: Equal, round and reactive pupils present Resp: Other: Bilateral expiratory rhonchi Effort & Inspection: normal respiratory effort Auscultation: clear to auscultation bilaterally Cardio: Other: Regular rate and rhythm without murmurs rubs or gallops Rate: regular rate Rhythm: regular rhythm GI: Other: Soft, obese, no apparent tenderness, no rebound or guarding Palpation (GI): Soft to palpation Auscultation: normal bowel sounds Back/Spine/Pelvis: Other: Tenderness along the lower thoracic and upper lumbar spine without crepitus or deformity noted Skin: Other: Warm and dry General skin exam: no rashes or lesions noted Neuro: Other: Nonfocal General: confusion Cranial nerves: Yes Equal, round and reactive pupils present Cognition (Neuro): normal cognition Extrem: General: Yes normal to inspection and Yes no pedal edema Objective Data Labs CBC & Chem 7: 11/16/21 05:15 11/16/21 05:15 Labs: Laboratory Results - last 24 hr 11/13/21 11/14/21 11/14/21 07:45 17:50 17:50 WBC RBC Hgb Hct MCV MCH MCHC RDW Plt Count MPV Absolute Nucleated RBC Nucleated RBC % (auto) Sodium Potassium Chloride Carbon Dioxide Anion Gap BUN Creatinine Estim Creat Clear Calc Estimated GFR Random Glucose Calcium Magnesium Stool Leukocytes, Qual NEGATIVE Ethylene Glycol NONE DETECTED C. difficile Tox B Gene NEGATIVE 11/15/21 11/15/21 05:07 05:07 WBC 6.0 RBC 3.20 L Hgb 9.9 L Hct 31.7 L MCV 99.1 H MCH 30.9 MCHC 31.2 RDW 15.9 Plt Count 256 MPV 8.6 L Absolute Nucleated RBC 0.000 Nucleated RBC % (auto) 0.0 Sodium 145 Potassium 3.7 Chloride 108 Carbon Dioxide 31 H Anion Gap 10 L BUN 14 Creatinine 0.93 Estim Creat Clear Calc 70.4 Estimated GFR > 60 Random Glucose 85 Calcium 9.2 Magnesium 2.0 Stool Leukocytes, Qual Ethylene Glycol C. difficile Tox B Gene Microbiology Microbiology Results: Microbiology 11/12/21 18:50 Blood - Venous Blood Culture - Preliminary No growth after 48 hours. 11/12/21 18:50 Blood - Venous Blood Culture - Preliminary No growth after 48 hours. Procedures Date of Service Date of Service: 11/15/21 Assessment & Plan Assessment and plan (1) Ileus: Status: Acute (2) Acute kidney injury: Status: Acute Assessment and Plan: JF with Hyperkalemia and acidosis JF most likely from retention ( although CT did not show obstruction) The rapid improvement in creatinine and K is suggestive of retention DDX includes ATN /dehyration Anemia- HCT is trending down Creatinine/Na at baseline Suggest Keep I > O Watch K Avoid nephrotoxins and narcotics Shall follow along Time Spent With Patient Time: Total time spent is greater than 50% in coordination of care (as documented) at patient's floor/unit and/or counseling patient: Progress Note: Quality Stroke Does the patient have a stroke diagnosis?: No
[2021-11-15] MEDS: Butalb/Acetamin/Caff 50/325/40 TABLET 1 TAB PO ×2 (14:21→18:29)
[2021-11-15 15:30] VITALS: BP 135/81; PULSE 64; RESP 18; TEMP 37.1; O2SAT 96
[2021-11-15] MEDS: LORazepam 0.5 MG TABLET PO (18:30)
[2021-11-15 19:58] VITALS: BP 134/62; PULSE 61; RESP 18; TEMP 37.2; O2SAT 98
[2021-11-15] MEDS: Montelukast Sodium 10 MG TABLET PO (20:44)
[2021-11-15] MEDS: QUEtiapine Fumarate 200 MG TABLET PO (20:44)
[2021-11-15] MEDS: Zolpidem Tartrate 5 MG TABLET PO (20:45)
[2021-11-16] VITALS (8 sets, daily range): BP systolic 107–158; BP diastolic 53–76; PULSE 56–71; RESP 17–18; TEMP 36–37.6; O2SAT 95–99
[2021-11-16] MEDS: Butalb/Acetamin/Caff 50/325/40 TABLET 1 TAB PO ×3 (05:09→20:57)
[2021-11-16 06:13] LABS: Hemoglobin 10.3 g/dl (12.0-16.0); Mean Corpuscular HGB Conc 31.2 g/dl (31.0-35.0); Mean Corpuscular Hemoglobin 30.7 pg (27.0-33.0); Mean Corpuscular Volume 98.2 fL (80.0-98.0); Mean Platelet Volume 8.5 fL (9.4-12.3); Platelet Count 257 X10*3/uL (160-400); Red Blood Count 3.36 X10*6/uL (4.20-5.50); Red Cell Distribution Width 15.5 % (11.0-16.0); White Blood Count 6.9 X10*3/uL (4.8-10.8)
[2021-11-16 06:35] LABS: Anion Gap 11 (12-20); Blood Urea Nitrogen 14 mg/dL (9-16); Calcium 9.3 mg/dL (8.4-10.2); Carbon Dioxide 30 mmol/L (22-29); Chloride 107 mmol/L (96-108); Creatinine Clr Calc Pharmacy 68.9; Estimated Glomerular Filt Rate > 60; Glucose Random 85 mg/dL (60-115); Potassium 3.8 mmol/L (3.3-5.1); Sodium 144 mmol/L (135-145)
--- NOTE | 2021-11-16 10:37 | HO.PM.IMPN ---
Subjective Subjective Date of Service: 11/16/21 Interval History: f/u abdominal pain, ieleus, still c/o vague abd pain Review of Systems no fever abd pain Physical Exam Vital Signs: Vital Signs: Last Vital Signs Temp 98.1 F 11/16/21 07:53 Pulse 65 11/16/21 07:53 Resp 17 11/16/21 07:53 BP 133/60 11/16/21 07:53 Pulse Ox 99 11/16/21 07:53 BMI result Body Mass Index 47.6 Const: Other: Constitutional : Alert, disoriented, not in distress Neck : Normal inspection, Supple Cardiovascular : RRR, S1 S2, no lower extremity edema Respiratory : Good bilateral air entry, no crackles, wheezes or rhonchi Gastrointestinal: soft, lax, decrease bowel sounds, generalized tenderness, no surgical signs Skin : Warm, Dry Neurological : Alert & disoriented, No focal deficit Objective Data Active Medications Acetaminophen (Acetaminophen 325 Mg Tablet) 650 mg PO Q6H PRN PRN Reason: Pain, Mild (Pain Scale 1-3) Last Admin: 11/15/21 09:55 Dose: 650 mg Documented by: SUNITA Acetaminophen/Butalbital/Caffeine (Butalb/Acetamin/Caff 50/325/40 Tablet) 1 tab PO Q4H PRN PRN Reason: Pain, Severe (Pain Scale 7-10) Last Admin: 11/16/21 05:09 Dose: 1 tab Documented by: MARITZAILDaisha Albuterol Sulfate (Albuterol Sulfate 90 Mcg 8 Gm Inhaler) 1 puff INHALE QID PRN PRN Reason: shortness of breath or wheezing Apixaban (Apixaban 5 Mg Tablet) 5 mg PO BID [facility] Last Admin: 11/15/21 20:45 Dose: 5 mg Documented by: CASTILM Benzonatate (Benzonatate 100 Mg Capsule) 200 mg PO TID PRN PRN Reason: cough Last Admin: 11/14/21 17:48 Dose: 200 mg Documented by: SUNITA Docusate Sodium (Docusate Sodium 100 Mg Capsule) 100 mg PO DAILY PRN PRN Reason: Constipation Escitalopram Oxalate (Escitalopram Oxalate 10 Mg Tablet) 10 mg PO DAILY [facility] Last Admin: 11/15/21 09:55 Dose: 10 mg Documented by: SUNITA Gabapentin (Gabapentin 300 Mg Capsule) 600 mg PO BID [facility] Last Admin: 11/15/21 20:44 Dose: 600 mg Documented by: HOLDEN Hydroxyzine HCl (Hydroxyzine Hcl 25 Mg Tablet) 25 mg PO TID PRN PRN Reason: Anxiety Lidocaine (Lidocaine 4 % Patch Adh..Patch) 1 patch TRANSDERMA DAILY [facility]; Protocol Last Admin: 11/15/21 09:54 Dose: 1 patch Documented by: SUNITA Loperamide HCl (Loperamide Hcl 2 Mg Capsule) 2 mg PO Q4H PRN PRN Reason: Diarrhea Last Admin: 11/15/21 09:55 Dose: 2 mg Documented by: SUNITA Lorazepam (Lorazepam 0.5 Mg Tablet) 0.5 mg PO DAILY PRN PRN Reason: anxiety Last Admin: 11/15/21 18:30 Dose: 0.5 mg Documented by: SUNITA Montelukast Sodium (Montelukast Sodium 10 Mg Tablet) 10 mg PO BEDTIME [facility] Last Admin: 11/15/21 20:44 Dose: 10 mg Documented by: HOLDEN Omeprazole (Omeprazole 20 Mg Capsule.Dr) 20 mg PO BID@0800,1700 [facility] Last Admin: 11/15/21 18:30 Dose: 20 mg Documented by: SUNITA Ondansetron HCl (Ondansetron Hcl 4 Mg/2 Ml Vial) 4 mg IVPUSH Q8H PRN PRN Reason: Nausea and Vomiting Last Admin: 11/14/21 08:39 Dose: 4 mg Documented by: ROBERTH Pharmacy Consult (Consult Rx Perform Med Rec) 1 each MISCELLANE ONCE PRN PRN Reason: Consult order Quetiapine Fumarate (Quetiapine Fumarate 200 Mg Tablet) 200 mg PO BEDTIME [facility] Last Admin: 11/15/21 20:44 Dose: 200 mg Documented by: HOLDEN Sodium Chloride (0.9 % Sodium Chloride Flush 3 Ml Syringe) [facility] Last Admin: 11/15/21 20:44 Dose: 3 ml Documented by: HOLDEN Sucralfate (Sucralfate 1 Gm Tablet) 2 gm PO DAILY [facility] Last Admin: 11/15/21 09:55 Dose: 2 gm Documented by: SUNITA Zolpidem Tartrate (Zolpidem Tartrate 5 Mg Tablet) 5 mg PO BEDTIME PRN PRN Reason: Insomnia Last Admin: 11/15/21 20:45 Dose: 5 mg Documented by: HOLDEN Labs CBC & Chem 7: 11/16/21 05:15 11/16/21 05:15 Labs: Laboratory Results - last 24 hr 11/16/21 11/16/21 05:15 05:15 MCV 98.2 H MCH 30.7 MCHC 31.2 RDW 15.5 Plt Count 257 MPV 8.5 L Absolute Nucleated RBC 0.000 Nucleated RBC % (auto) 0.0 Anion Gap 11 L Estim Creat Clear Calc 68.9 Estimated GFR > 60 Random Glucose 85 Calcium 9.3 Assessment and Plan (1) Ileus: Status: Acute (2) Metabolic acidosis: Status: Acute (3) Hyperkalemia: Status: Acute (4) Acute kidney injury: Status: Acute Assessment and Plan: 51-year-old female with extensive past medical history as mentioned above who presents to the hospital with back pain found to be dehydrated with JF, as well as have a hyperkalemia and other lab abnormalities # diarrhea Post ileus resolved Negative for C diff As needed Imodium # JF--resolved. # leukocytosis--likely reactive and resolved. # Ileus--clinically resolved. # hyperkalemia--resolved. sodium bicarb and albuterol as well as p.o. Kayexalate Monitor BMP # history of PE continue apixaban # toxic metabolic encephalopathy Improved Avoid medications that might altered her mentation continue to monitor DVT PPX Eliquis Will try to discharge today Quality Stroke Does the patient have a stroke diagnosis?: No VTE Prior VTE?: No VTE Risk Level:: Medical - moderate - high VTE Device Contraindication: Treatment Not Indicated VTE Drug Contraindication: N/A - Med Ordered
[2021-11-16] MEDS: Gabapentin 300 MG CAPSULE 600 MG PO ×2 (11:53→20:56)
[2021-11-16] MEDS: Sucralfate 1 GM TABLET 2 GM PO (11:53)
[2021-11-16] MEDS: Omeprazole 20 MG CAPSULE.DR PO ×2 (11:54→17:27)
[2021-11-16] MEDS: Escitalopram Oxalate 10 MG TABLET PO (11:55)
[2021-11-16] MEDS: Apixaban 5 MG TABLET PO ×2 (11:55→20:56)
[2021-11-16] MEDS: Lidocaine 4 % Patch ADH..PATCH 1 PATCH TRANSDERMA (11:57)
[2021-11-16] MEDS: 0.9 % Sodium Chloride Flush 3 ML SYRINGE IVFLUSH (17:27)
[2021-11-16] MEDS: Benzonatate 100 MG CAPSULE 200 MG PO (17:30)
[2021-11-16] MEDS: Acetaminophen 325 MG TABLET 650 MG PO (17:37)
[2021-11-16] MEDS: LORazepam 0.5 MG TABLET PO (17:37)
[2021-11-16] MEDS: Montelukast Sodium 10 MG TABLET PO (20:56)
[2021-11-16] MEDS: Zolpidem Tartrate 5 MG TABLET PO (20:57)
[2021-11-16] MEDS: QUEtiapine Fumarate 200 MG TABLET PO (20:58)
[2021-11-17] MEDS: 0.9 % Sodium Chloride Flush 3 ML SYRINGE IVFLUSH ×3 (01:24→13:09)
[2021-11-17] MEDS: Benzonatate 100 MG CAPSULE 200 MG PO ×3 (01:31→16:51)
[2021-11-17] MEDS: Butalb/Acetamin/Caff 50/325/40 TABLET 1 TAB PO ×3 (01:31→20:13)
[2021-11-17 03:27] VITALS: BP 135/63; PULSE 60; RESP 18; TEMP 36.2; O2SAT 96
[2021-11-17 07:33] VITALS: BP 152/70; PULSE 55; RESP 20; TEMP 36.3; O2SAT 97
[2021-11-17] MEDS: Apixaban 5 MG TABLET PO ×2 (08:56→20:13)
[2021-11-17] MEDS: Omeprazole 20 MG CAPSULE.DR PO ×2 (08:56→16:50)
[2021-11-17] MEDS: Escitalopram Oxalate 10 MG TABLET PO (08:56)
[2021-11-17] MEDS: Sucralfate 1 GM TABLET 2 GM PO (08:56)
[2021-11-17] MEDS: Lidocaine 4 % Patch ADH..PATCH 1 PATCH TRANSDERMA (08:56)
[2021-11-17] MEDS: Gabapentin 300 MG CAPSULE 600 MG PO ×2 (08:56→20:13)
--- NOTE | 2021-11-17 10:02 | HO.PM.IMPN ---
Subjective Subjective Date of Service: 11/17/21 Interval History: f/u abdominal pain, ieleus, still c/o vague abd pain.. Physical Exam Vital Signs: Vital Signs: Last Vital Signs Temp 97.3 F 11/17/21 07:33 Pulse 55 11/17/21 07:33 Resp 20 11/17/21 07:33 BP 152/70 H 11/17/21 07:33 Pulse Ox 97 11/17/21 07:33 BMI result Body Mass Index 47.6 Const: Other: Constitutional : Alert, disoriented, not in distress Neck : Normal inspection, Supple Cardiovascular : RRR, S1 S2, no lower extremity edema Respiratory : Good bilateral air entry, no crackles, wheezes or rhonchi Gastrointestinal: soft, lax, decrease bowel sounds, generalized tenderness, no surgical signs Skin : Warm, Dry Neurological : Alert & disoriented, No focal deficit Objective Data Active Medications Acetaminophen (Acetaminophen 325 Mg Tablet) 650 mg PO Q6H PRN PRN Reason: Pain, Mild (Pain Scale 1-3) Last Admin: 11/16/21 17:37 Dose: 650 mg Documented by: EVER Acetaminophen/Butalbital/Caffeine (Butalb/Acetamin/Caff 50/325/40 Tablet) 1 tab PO Q4H PRN PRN Reason: Pain, Severe (Pain Scale 7-10) Last Admin: 11/17/21 08:59 Dose: 1 tab Documented by: JESSICA Albuterol Sulfate (Albuterol Sulfate 90 Mcg 8 Gm Inhaler) 1 puff INHALE QID PRN PRN Reason: shortness of breath or wheezing Apixaban (Apixaban 5 Mg Tablet) 5 mg PO BID ON LICENSE OF [facility] Last Admin: 11/17/21 08:56 Dose: 5 mg Documented by: JESSICA Benzonatate (Benzonatate 100 Mg Capsule) 200 mg PO TID PRN PRN Reason: cough Last Admin: 11/17/21 09:00 Dose: 200 mg Documented by: JESSICA Docusate Sodium (Docusate Sodium 100 Mg Capsule) 100 mg PO DAILY PRN PRN Reason: Constipation Escitalopram Oxalate (Escitalopram Oxalate 10 Mg Tablet) 10 mg PO DAILY ON LICENSE OF [facility] Last Admin: 11/17/21 08:56 Dose: 10 mg Documented by: JESSICA Gabapentin (Gabapentin 300 Mg Capsule) 600 mg PO BID ON LICENSE OF [facility] Last Admin: 11/17/21 08:56 Dose: 600 mg Documented by: JESSICA Hydroxyzine HCl (Hydroxyzine Hcl 25 Mg Tablet) 25 mg PO TID PRN PRN Reason: Anxiety Lidocaine (Lidocaine 4 % Patch Adh..Patch) 1 patch TRANSDERMA DAILY ON LICENSE OF [facility]; Protocol Last Admin: 11/17/21 08:56 Dose: 1 patch Documented by: JESSICA Loperamide HCl (Loperamide Hcl 2 Mg Capsule) 2 mg PO Q4H PRN PRN Reason: Diarrhea Last Admin: 11/15/21 09:55 Dose: 2 mg Documented by: SUNITA Lorazepam (Lorazepam 0.5 Mg Tablet) 0.5 mg PO DAILY PRN PRN Reason: anxiety Last Admin: 11/16/21 17:37 Dose: 0.5 mg Documented by: EVER Montelukast Sodium (Montelukast Sodium 10 Mg Tablet) 10 mg PO BEDTIME ON LICENSE OF [facility] Last Admin: 11/16/21 20:56 Dose: 10 mg Documented by: EVER Omeprazole (Omeprazole 20 Mg Capsule.Dr) 20 mg PO BID@0800,1700 ON LICENSE OF [facility] Last Admin: 11/17/21 08:56 Dose: 20 mg Documented by: JESSICA Ondansetron HCl (Ondansetron Hcl 4 Mg/2 Ml Vial) 4 mg IVPUSH Q8H PRN PRN Reason: Nausea and Vomiting Last Admin: 11/14/21 08:39 Dose: 4 mg Documented by: ROBERTH Pharmacy Consult (Consult Rx Perform Med Rec) 1 each MISCELLANE ONCE PRN PRN Reason: Consult order Quetiapine Fumarate (Quetiapine Fumarate 200 Mg Tablet) 200 mg PO BEDTIME ON LICENSE OF [facility] Last Admin: 11/16/21 20:58 Dose: 200 mg Documented by: EVER Sodium Chloride (0.9 % Sodium Chloride Flush 3 Ml Syringe) [facility] Last Admin: 11/17/21 08:57 Dose: 3 ml Documented by: JESSICA Sucralfate (Sucralfate 1 Gm Tablet) 2 gm PO DAILY ON LICENSE OF [facility] Last Admin: 11/17/21 08:56 Dose: 2 gm Documented by: JESSICA Zolpidem Tartrate (Zolpidem Tartrate 5 Mg Tablet) 5 mg PO BEDTIME PRN PRN Reason: Insomnia Last Admin: 11/16/21 20:57 Dose: 5 mg Documented by: EVER Labs CBC & Chem 7: 11/16/21 05:15 11/16/21 05:15 Assessment and Plan (1) Ileus: Status: Acute (2) Metabolic acidosis: Status: Acute (3) Hyperkalemia: Status: Acute (4) Acute kidney injury: Status: Acute Assessment and Plan: 51-year-old female with extensive past medical history as mentioned above who presents to the hospital with back pain found to be dehydrated with JF, as well as have a hyperkalemia and other lab abnormalities # diarrhea Post ileus resolved Negative for C diff As needed Imodium # JF--resolved. # leukocytosis--likely reactive and resolved. # Ileus--clinically resolved but still c/o pain, will repeat CT # hyperkalemia--resolved. sodium bicarb and albuterol as well as p.o. Kayexalate Monitor BMP # history of PE continue apixaban # toxic metabolic encephalopathy Improved Avoid medications that might altered her mentation continue to monitor DVT PPX Eliquis Will try to discharge today Quality Stroke Does the patient have a stroke diagnosis?: No VTE Prior VTE?: No VTE Risk Level:: Medical - moderate - high VTE Device Contraindication: Treatment Not Indicated VTE Drug Contraindication: N/A - Med Ordered
[2021-11-17 11:38] VITALS: BP 145/75; PULSE 70; RESP 20; TEMP 36.2; O2SAT 98
[2021-11-17] MEDS: Loperamide HCl 2 MG CAPSULE PO (13:08)
[2021-11-17] MEDS: Acetaminophen 325 MG TABLET 650 MG PO (13:08)
[2021-11-17] MEDS: ondansetron HCL 4 MG/2 ML VIAL IVPUSH (13:18)
[2021-11-17 16:00] VITALS: BP 151/68; PULSE 55; RESP 18; TEMP 36.1; O2SAT 95
--- NOTE | 2021-11-17 18:37 | P.PNNP_ITS ---
Subjective Subjective Date of Service: 12/04/21 Interval history: Events noted Physical Exam Verdana 4l Vital Signs: Verdana 4d Verdana 4d Vital Signs: Verdana 4d Verdana 4Bd Last Vital Signs Verdana 4d Bottle Packing Machine Cleaner New 4d Bottle Packing Machine Cleaner New 4d Temp 97.0 F 11/17/21 16:00 Bottle Packing Machine Cleaner New 4d Pulse 55 11/17/21 16:00 Bottle Packing Machine Cleaner New 4d Resp 18 11/17/21 16:00 BP 151/68 H 11/17/21 16:00 Pulse Ox 95 11/17/21 16:00 BMI result Body Mass Index 47.6 Const: Other: Morbidly obese, very drowsy, although answers simple questions General: cooperative and confusion; No no acute distress Orientation/consciousness: confusion Eyes: General: appearance normal, both eyes and all related structures Pupils: Equal, round and reactive pupils present Resp: Other: Bilateral expiratory rhonchi Effort & Inspection: normal respiratory effort Auscultation: clear to auscultation bilaterally Cardio: Other: Regular rate and rhythm without murmurs rubs or gallops Rate: regular rate Rhythm: regular rhythm GI: Other: Soft, obese, no apparent tenderness, no rebound or guarding Palpation (GI): Soft to palpation Auscultation: normal bowel sounds Back/Spine/Pelvis: Other: Tenderness along the lower thoracic and upper lumbar spine without crepitus or deformity noted Skin: Other: Warm and dry General skin exam: no rashes or lesions noted Neuro: Other: Nonfocal General: confusion Cranial nerves: Yes Equal, round and reactive pupils present Cognition (Neuro): normal cognition Extrem: General: Yes normal to inspection and Yes no pedal edema Objective Data Labs CBC & Chem 7: 11/16/21 05:15 11/16/21 05:15 Microbiology Microbiology Results: Microbiology 11/12/21 18:50 Blood - Venous Blood Culture - Preliminary No growth after 48 hours. 11/12/21 18:50 Blood - Venous Blood Culture - Preliminary No growth after 48 hours. Procedures Date of Service Date of Service: 12/18/21 Assessment & Plan Assessment and plan (1) Ileus: Status: Resolved (2) Acute kidney injury: Status: Resolved Plan JF with Hyperkalemia and acidosis JF most likely from retention ( although CT did not show obstruction) The rapid improvement in creatinine and K is suggestive of retention DDX includes ATN /dehyration Anemia- HCT is trending down Creatinine/Na / K back to normal Suggest Keep I > O Watch K Avoid nephrotoxins and narcotics Shall sign off. Please reconsult if needed Time Spent With Patient Time: Total time spent is greater than 50% in coordination of care (as documented) at patient's floor/unit and/or counseling patient: Progress Note: Quality Stroke Does the patient have a stroke diagnosis?: No
[2021-11-17 20:00] VITALS: BP 127/58; PULSE 88; RESP 18; TEMP 37; O2SAT 94
[2021-11-17] MEDS: LORazepam 0.5 MG TABLET PO (20:13)
[2021-11-17] MEDS: Zolpidem Tartrate 5 MG TABLET PO (20:13)
[2021-11-17] MEDS: Montelukast Sodium 10 MG TABLET PO (20:13)
[2021-11-17] MEDS: QUEtiapine Fumarate 200 MG TABLET PO (20:13)
[2021-11-17 23:44] VITALS: BP 138/59; PULSE 62; RESP 18; TEMP 36; O2SAT 93
[2021-11-18 03:45] VITALS: BP 124/63; PULSE 57; RESP 18; TEMP 36.2; O2SAT 95
[2021-11-18] MEDS: Lidocaine 4 % Patch ADH..PATCH 1 PATCH TRANSDERMA (07:35)
[2021-11-18] MEDS: Sucralfate 1 GM TABLET 2 GM PO (07:35)
[2021-11-18] MEDS: Omeprazole 20 MG CAPSULE.DR PO (07:35)
[2021-11-18] MEDS: Apixaban 5 MG TABLET PO (07:36)
[2021-11-18] MEDS: 0.9 % Sodium Chloride Flush 3 ML SYRINGE IVFLUSH (07:36)
[2021-11-18] MEDS: Escitalopram Oxalate 10 MG TABLET PO (07:36)
[2021-11-18] MEDS: Gabapentin 300 MG CAPSULE 600 MG PO (07:36)
[2021-11-18 07:37] VITALS: BP 125/58; PULSE 61; RESP 17; TEMP 36.4; O2SAT 98
--- NOTE | 2021-11-18 11:24 | P.DS_ITS ---
DS: Providers Provider Date of Service: 11/18/21 Date of admission: 11/12/21 22:52 Primary care physician: Claudia Villatoro MD Consults: 11/12/21 23:28 Consult to General Surgery Routine Consulting Provider: Kevin Carrasco Reason for consultation: ileus Has provider been notified: No 11/13/21 05:56 Consult to Nephrology Routine Consulting Provider: [facility] Reason for consultation: JF, Hyperkalemia Has provider been notified: No DS: Diagnosis Discharge Diagnosis (1) Ileus: Status: Acute (2) Acute kidney injury: Status: Acute DS: Summary Hospital Course Hospital Course: Chief Complaint: back pain ? Swedish-speaking.? History is obtained with the help of washing machine striper. ?this is a 51-year-old female with? an extensive past medical history of asthma, chronic back pain, chronic pain syndrome, diabetes, depression, hypertension, fibromyalgia, migraine headaches, hypothyroidism, BABATUNDE, PE, TIA, who presents to the hospital with complaints of back pain.? patient received Dilaudid for back pain therefore she is very sleepy but arousable and able to give appropriate answers.? She reports the back pain started today but she had a fall about 3 days ago,she reports no chest pain, no shortness of breath,? she is reporting left lower and right lower quadrant abdominal pains, she deniesnausea or vomiting, no diarrhea constipation, no urinary symptoms although feels that she cannot PE, and no lower extremity edema.? No headache or change in vision.? On arrival? to the ED vitals are significant for a temp of 98.1?, heart rate of 84, respiratory rate of 18,? recorded blood pressure of 77/48 but is seems to be? and air all as the blood pressure rechecked on the other arm showed 137/85 with no hypotension found again.? Labs are significant for? WBC count of 16.5, hemoglobin of 12.4, MCV of 100.8, VBG of 7.17, pCO2 of 53, potassium of 5.4 with no EKG changes, BUN of 27, creatinine of 3.04 with a baseline of 18 and 1.09, UA negative, COVID-19 negative, chest CT showed no focal consolidation or evidence of pneumonitis, mild diffuse bronchial wall thickening representing bronchitis. No anion gap , Bicarb of 23 ? Abdomen pelvic CT shows distended right colon and transverse colon probably representing an ileus.? X-ray of the thoracic and lumbar spine negative Hospital course: #Diarrhea related to post ileus.. negative C dif, diarrhea has resolved and she is tolerating diet. ?#? JF--Pre-renal Azotemia, resolved with IVF # leukocytosis--likely reactive and resolved. #Ileus--possibly related to fall and this has clinically resolved. #? hyperkalemia--related to renal failure , treated with Kayexalate and this has resolved. # Toxic Metabolic Encephalopathy--Self resolved. #? history of PE--to continue apixaban #New soft tissue thickening, fluid in between the muscle layers and stranding of the overlying subcutaneous fat along the left lateral abdominal wall. Given history of recent trauma this probably represents a hematoma. Differential would include myositis/infection. There is no clinical evidence of infection, CPK is normal, likely small hematoma from fall and appear stable and therefore no intervention at this time. Time Spent with Patient Time attestation: Total time spent providing and/or coordinating discharge services: Discharge coordination time: Greater than 30 minutes Quality: Stroke Does the patient have a stroke diagnosis?: No Physical Exam Verdana 4l Vital Signs: Verdana 4d Verdana 4d Vital Signs: Verdana 4d Verdana 4Bd Last Vital Signs Verdana 4d Finished Stock Inspector New 4d Finished Stock Inspector New 4d Temp 97.6 F 11/18/21 07:37 Finished Stock Inspector New 4d Pulse 61 11/18/21 07:37 Finished Stock Inspector NewNew 4d Resp 17 11/18/21 07:37 BP 125/58 L 11/18/21 07:37 Pulse Ox 98 11/18/21 07:37 BMI result Body Mass Index 47.6 DS: Data Data Completed and Pending Labs on day of discharge: Laboratory Results - last 24 hr 11/18/21 08:48 Total Creatine Kinase 41 Discharge Plan Discharge Anticipated Discharge Date/Time: 11/18/21 11:44 Patient Disposition: Home, Self-Care Discharge Diagnosis: Ileus Kidney injury Dehydration Referrals: Claudia Villatoro MD [Primary Care Provider] - 11/19/21 3:00 pm (You have a virtual follow up appointment with Dr. Villatoro on Wednesday, [place] 19th at 3 pm.) Discharge Medications: Continued gabapentin [Neurontin] 300 mg capsule 600 mg PO BID 30 Days Qty: 120 RF: 11 immun glob G(IgG)-pro-IgA 0-50 [Privigen] 10 % solution 40 g IV .monthly Qty: 400 RF: 11 sucralfate 1 gram tablet 2 g PO DAILY Qty: 60 RF: 2 benzonatate 200 mg capsule 200 mg PO TID PRN (Reason: cough) 30 Days Qty: 60 RF: 3 hydroxyzine HCl 25 mg tablet 1 tab PO TID PRN (Reason: Anxiety) RF: 0 ondansetron 4 mg tablet,disintegrating 4 mg PO TID PRN (Reason: nausea and vomiting) 5 Days Qty: 10 RF: 0 montelukast 10 mg tablet 10 mg PO BEDTIME RF: 0 albuterol sulfate 90 mcg/actuation HFA aerosol inhaler 1 inh inhalation QID PRN (Reason: shortness of breath or wheezing) Qty: 18 RF: 0 losartan 100 mg tablet 1 tab PO DAILY RF: 0 [id number]-qwfp [Fioricet] 50-300-40 mg capsule 1 cap PO Q4H PRN (Reason: pain) Qty: 20 RF: 0 quetiapine 200 mg tablet 1 tab PO BEDTIME RF: 0 lorazepam 0.5 mg tablet 1 tab PO DAILY PRN (Reason: anxiety) RF: 0 Anoro Ellipta 62.5-25 mcg/actuation blister with device 1 puff inhalation DAILY RF: 0 tramadol 50 mg tablet 50 mg PO BID PRN (Reason: pain) Qty: 10 RF: 0 omeprazole 20 mg capsule,delayed release(DR/EC) 1 cap PO DAILY RF: 0 zolpidem 10 mg tablet 1 tab PO BEDTIME PRN (Reason: Insomnia) RF: 0 escitalopram oxalate 10 mg tablet 1 tab PO DAILY RF: 0 azithromycin 250 mg tablet 250 mg PO MOWEFR RF: 0 cholecalciferol (vitamin D3) 25 mcg (1,000 unit) tablet 25 mcg PO DAILY RF: 0 apixaban 5 mg tablet 5 mg PO BID 30 Days Qty: 60 RF: 6 cyanocobalamin (vitamin B-12) 1,000 mcg tablet 1,000 mcg PO DAILY RF: 0 alosetron [Lotronex] 1 mg tablet 1 mg PO BID 30 Days Qty: 60 RF: 6 Daliresp 500 mcg tablet 500 mcg PO DAILY 30 Days Qty: 30 RF: 12 Discharge Orders: Discharge Order (Routine); Ordered 11/18/21 Ordered By: Prosper Jiménez Diet: advance to usual diet Activity on Discharge: As tolerated Stand Alone Forms: Patient Portal Discharge page Care Plan Goals: Read below Health Concerns: Read below Plan of Treatment: Read below Assessment: You have presented to the hospital with abdominal pain. found to have small bowel illeus. evaluated by surgery team and treated with IV fluids and electrolyte replacement with good response. Continue your home medication, you are telerating diet, you have a small fluid collection in abdominal wall muscle that will likely resolved on its own, follow up with your Doctor in a week
--- NOTE | 2021-11-18 12:24 | MHC.CM.PN ---
PLAN IS HOME TODAY WITH RESUMPTION OF HER SERVICES ALREADY IN PLACE. RN AWARE OF PLAN
== END 2021-11-18 12:34 | disposition home or self-care (01) | DRG 469 ==
LOC: HO.ED 21:06 → HO.EDOVER 22:57 → HO.S3 11-13 13:47
PROVIDERS: Student in an Organized Health Care Education/Training Program; Admitting Provider Internal Medicine; Emergency Provider Emergency Medicine; PCP Internal Medicine; Visit Provider Internal Medicine
DX: N17.9 Acute kidney failure, unspecified (principal); G92.8 Other toxic encephalopathy; E87.2 Acidosis; E11.40 Type 2 diabetes mellitus with diabetic neuropathy, unspecified; K56.7 Ileus, unspecified; E86.0 Dehydration; E66.01 Morbid (severe) obesity due to excess calories; D72.829 Elevated white blood cell count, unspecified; E87.5 Hyperkalemia; S30.1XXA Contusion of abdominal wall, initial encounter; W19.XXXA Unspecified fall, initial encounter; J42 Unspecified chronic bronchitis; G89.4 Chronic pain syndrome; G47.33 Obstructive sleep apnea (adult) (pediatric); Z68.42 Body mass index [BMI] 45.0-49.9, adult; Z86.711 Personal history of pulmonary embolism; Z20.822 Contact with and (suspected) exposure to COVID-19; Z79.01 Long term (current) use of anticoagulants; Z79.899 Other long term (current) drug therapy
CPT/HCPCS: 36415; 71046; 71250; 72070; 72100; 74176; 80048; 80053; 80179; 81003; 82550; 82693; 82803; 83605; 83735; 85025; 85027; 85610; 87040; 87493; 87635; 89055; 93005; 94640; 94644; 94660; 97161; 99285; J0610; J1170; J2270; J2405

== ENCOUNTER → 2021-11-24 08:41 | Outpatient (BNVA) | payer OTHER, SELFPAY | PROVIDERS: PCP Internal Medicine; Visit Provider Anesthesiology | DX: M54.50 Low back pain, unspecified (principal); M51.37 Other intervertebral disc degeneration, lumbosacral region; M47.816 Spondylosis without myelopathy or radiculopathy, lumbar region | CPT/HCPCS: 99212 ==

== ENCOUNTER 2021-11-24 10:19 | Outpatient (REF) | payer OTHER, SELFPAY ==
[2021-11-24 13:40] LABS: MANUAL DIFF FLAG NO
[2021-11-24 13:52] LABS: Basophils Percent Auto 0.4 % (0-2); Eosinophils Absolute Auto 0.2 X10*3/uL (0.0-0.4); Eosinophils Percent Auto 3.3 % (0-4); Hematocrit 40.9 % (37.0-47.0); Hemoglobin 12.8 g/dl (12.0-16.0); Imm Gran Abs Auto 0.06 X10*3/uL (0.00-0.03); Imm Gran Pct Auto 0.8 % (0.0-0.4); Lymphocytes Absolute Auto 1.6 X10*3/uL (1.2-4.9); Mean Corpuscular HGB Conc 31.3 g/dl (31.0-35.0); Mean Corpuscular Hemoglobin 30.3 pg (27.0-33.0); Mean Corpuscular Volume 96.7 fL (80.0-98.0); Mean Platelet Volume 9.3 fL (9.4-12.3); Monocytes Absolute Auto 0.6 X10*3/uL (0.1-1.2); Monocytes Percent Auto 7.8 % (2-11); Neutrophils Absolute Auto 4.7 x10*3/uL (2.0-8.3); Neutrophils Percent Auto 65.7 % (45-73); Platelet Count 388 X10*3/uL (160-400); Red Blood Count 4.23 X10*6/uL (4.20-5.50); Red Cell Distribution Width 14.8 % (11.0-16.0); White Blood Count 7.2 X10*3/uL (4.8-10.8)
[2021-11-24 14:03] LABS: Estimated Average Glucose 108 mg/dL; Hemoglobin A1c % 5.4 %
[2021-11-24 14:13] LABS: Alanine Aminotransferase 21 U/L (0-31); Alkaline Phosphatase 71 U/L (39-117); Anion Gap 12 (12-20); Aspartate Amino Transferase 25 U/L (5-31); Bilirubin Total 0.3 mg/dL (0.0-1.0); Blood Urea Nitrogen 12 mg/dL (9-16); Calcium 10.2 mg/dL (8.4-10.2); Carbon Dioxide 24 mmol/L (22-29); Chloride 107 mmol/L (96-108); Cholesterol 169 mg/dL; Estimated Glomerular Filt Rate 43; Glucose Fasting 93 mg/dL (60-99); HDL Cholesterol 60 mg/dL; LDL Cholesterol Calculated 78 mg/dl; Potassium 5.1 mmol/L (3.3-5.1); Sodium 138 mmol/L (135-145); Total Protein 6.6 g/dL (6.5-8.0); Triglycerides 155 mg/dL
[2021-11-24 14:18] LABS: Creatinine Urine 254.34 mg/dL; Microalbum/Creatinine Ratio Ur 6.2 ug/mg cr
== END 2021-11-24 10:20 | disposition home or self-care (01) ==
LOC: HO.10HDL 10:19
PROVIDERS: Visit Provider Internal Medicine
DX: Z00.01 Encounter for general adult medical examination with abnormal findings (principal); J45.50 Severe persistent asthma, uncomplicated; F33.9 Major depressive disorder, recurrent, unspecified; E11.9 Type 2 diabetes mellitus without complications
CPT/HCPCS: 36415; 80053; 80061; 82043; 83036; 85025

== ENCOUNTER 2021-12-04 11:49 | Outpatient (REF) | payer OTHER, SELFPAY | END 2021-12-04 11:50 | disposition home or self-care (01) | LOC: HO.MDS 11:49 | PROVIDERS: PCP Internal Medicine; Visit Provider Hospitalist | DX: D80.1 Nonfamilial hypogammaglobulinemia (principal); E03.9 Hypothyroidism, unspecified; G47.33 Obstructive sleep apnea (adult) (pediatric) | CPT/HCPCS: 96365; 96366 ==

== ENCOUNTER → 2021-12-15 13:08 | Outpatient (BNVA) | payer OTHER, SELFPAY | PROVIDERS: PCP Internal Medicine; Visit Provider Hospitalist | DX: J44.9 Chronic obstructive pulmonary disease, unspecified (principal); G47.33 Obstructive sleep apnea (adult) (pediatric); R05.9 Cough, unspecified; M19.90 Unspecified osteoarthritis, unspecified site; I27.82 Chronic pulmonary embolism | CPT/HCPCS: 99212 ==

== ENCOUNTER → 2021-12-17 12:30 | Outpatient (BNVA) | payer OTHER, SELFPAY | PROVIDERS: PCP Internal Medicine; Visit Provider Anesthesiology | DX: M51.37 Other intervertebral disc degeneration, lumbosacral region (principal); M54.50 Low back pain, unspecified; M47.816 Spondylosis without myelopathy or radiculopathy, lumbar region | CPT/HCPCS: 99212 ==

== ENCOUNTER 2022-01-09 10:57 | Outpatient (REF) | payer OTHER, SELFPAY ==
[2022-01-09 11:30] LABS: COVID-19 Test Negative (Negative); IDNOW Serial# 08D9AD1C
== END 2022-01-09 10:58 | disposition home or self-care (01) ==
LOC: HO.LAB 10:57
PROVIDERS: Visit Provider Internal Medicine
DX: Z20.822 Contact with and (suspected) exposure to COVID-19 (principal)
CPT/HCPCS: 87635; C9803

== ENCOUNTER → 2022-01-14 12:30 | Outpatient (BNVA) | payer OTHER, SELFPAY | PROVIDERS: PCP Internal Medicine; Visit Provider Anesthesiology | DX: Z13.89 Encounter for screening for other disorder (principal) ==

== ENCOUNTER 2022-01-21 13:16 | Emergency (ER) | payer OTHER, SELFPAY ==
[2022-01-21 13:39] VITALS: BP 115/68; PULSE 105; RESP 22; TEMP 37.1; O2SAT 98; BMI 31.8
--- NOTE | 2022-01-21 16:16 | ECG_ITS ---
Test Reason : BACK PAIN Blood Pressure : / mmHG Vent. Rate : 084 BPM Atrial Rate : 084 BPM P-R Int : 132 ms QRS Dur : 102 ms QT Int : 388 ms P-R-T Axes : 042 009 014 degrees QTc Int : 458 ms Normal sinus rhythm Normal ECG When compared with ECG of 13-NOV-2021 00:15, Nonspecific T wave abnormality now evident in Anterior leads Referred By: Marii Gonzalez Electronically Signed By:ALEM MARIE MD
--- NOTE | 2022-01-21 16:47 | ED.BACK ---
HPI - Back Pain/Injury General Chief Complaint: Back Pain/Injury Stated Complaint: back pain Time Seen by Provider: 01/21/22 15:03 Source: patient Mode of arrival: ambulatory History of Present Illness HPI Narrative: 52-year-old female with a past medical history HTN, HLD, DM, diabetic neuropathy, chronic pain syndrome, anxiety, depression, lumbar spine disc disease, fibromyalgia, sleep apnea, PE on Eliquis, asthma, hypogammaglobulinemia, TIA, migraines, presenting to the ED complaining of diffuse atraumatic back pain x few days radiating down LLE. Also reports suprapubic discomfort, dysuria, epigastric abdominal pain, nausea, and chest pain yesterday. Reports abdominal pain worse after eating. Denies SOB, numbness, tingling, weakness, urinary incontinence/retention MD elicited complaint: back pain Pertinent past history: prior back pain Onset (ago): day(s) Timing: constant Related Data Home Medications Medication Instructions Recorded Confirmed montelukast 10 mg tablet 10 mg PO BEDTIME 08/02/20 01/19/22 cyanocobalamin (vitamin B-12) 1,000 mcg PO DAILY 11/05/20 01/19/22 1,000 mcg tablet hydroxyzine HCl 25 mg tablet 1 tab PO TID PRN 12/12/20 01/19/22 cholecalciferol (vitamin D3) 25 25 mcg PO DAILY 03/19/21 01/19/22 mcg (1,000 unit) tablet losartan 100 mg tablet 1 tab PO DAILY 05/12/21 01/19/22 lorazepam 0.5 mg tablet 1 tab PO DAILY PRN 10/12/21 01/19/22 quetiapine 200 mg tablet 1 tab PO BEDTIME 10/12/21 01/19/22 umeclidinium 62.5 mcg-vilanterol 1 puff INHALATION DAILY 10/12/21 01/19/22 25 mcg/actuation powdr for inhalation (Anoro Ellipta) omeprazole 20 mg capsule,delayed 1 cap PO DAILY 11/12/21 01/19/22 release zolpidem 10 mg tablet 1 tab PO BEDTIME PRN 11/12/21 01/19/22 escitalopram oxalate 10 mg tablet 1 tab PO DAILY 11/13/21 01/19/22 dicyclomine 20 mg tablet 1 tab PO QID 01/19/22 01/19/22 Previous Rx's Medication Instructions Recorded albuterol sulfate 90 mcg/actuation 1 inh INHALATION QID PRN #18 g 10/13/20 aerosol inhaler gabapentin 300 mg capsule 600 mg PO BID 30 Days #120 cap 04/14/21 (Neurontin) ondansetron 4 mg disintegrating 4 mg PO TID PRN 5 Days #10 tab 05/23/21 tablet immune glob,gamm(IgG) 10 %-pro-IgA 40 g IV .monthly #400 ml 05/26/21 0 to 50 mcg/mL intravenous solution (Privigen) apixaban 5 mg tablet 5 mg PO BID 30 Days #60 tab 06/27/21 vizxemexlw-txnqietzwjhhg-whohdlbn 1 cap PO Q4H PRN #20 cap 08/08/21 50 mg-300 mg-40 mg capsule (Fioricet) alosetron 1 mg tablet (Lotronex) 1 mg PO BID 30 Days #60 tab 09/02/21 sucralfate 1 gram tablet 2 g PO DAILY #60 tab 10/10/21 benzonatate 200 mg capsule 200 mg PO TID PRN 30 Days #60 cap 10/20/21 roflumilast 500 mcg tablet 500 mcg PO DAILY 30 Days #30 tab 11/03/21 (Daliresp) oxycodone 5 mg tablet 5 mg PO BID PRN 30 Days #60 tab 01/15/22 acetaminophen 500 mg tablet 500 mg PO Q6H PRN #20 tab 01/21/22 (Tylenol Extra Strength) cefuroxime axetil 250 mg tablet 250 mg PO BID 7 Days #14 tab 01/21/22 cyclobenzaprine 5 mg tablet 5 mg PO Q8H PRN 5 Days #14 tab 01/21/22 lidocaine 5 % topical patch 1 patch TOPICAL DAILY PRN #30 ea 01/21/22 (Lidoderm) MDD remove after 12 hours Allergies Allergy/AdvReac Type Severity Reaction Status Date / Time No Known Allergies Allergy Verified 01/19/22 13:18 Review of Systems Review of Systems: Constitutional: No Fever, No Chills, No Fatigue, No Malaise ENT/Mouth: No Ear Pain, No Nasal Congestion, No Sinus Pain, No Hoarseness, No sore throat, No Rhinorrhea, No Swallowing Difficulty Eyes: No Eye Pain, No Swelling, No Redness, No Discharge Cardiovascular: + Chest Pain, No SOB, No Dyspnea on Exertion, No Orthopnea, No Edema, No Palpitations Respiratory: No Cough, No Sputum, No Dyspnea Gastrointestinal: + Nausea, No Vomiting, No Diarrhea, No Constipation, + Abdominal pain Genitourinary: No irregular bleeding, + Dysuria, No Urinary Frequency, No Hematuria, No Urinary Incontinence/retention, No Urgency, No Flank Pain, No Urinary Flow Changes, No Hesitancy Musculoskeletal: No joint pain, No Myalgias, No Joint Swelling Skin: No Skin Lesions, No rash Neuro: No Weakness, No Numbness, No Paresthesias, No Dizziness, No Headache Yes all other systems are reviewed and are negative Neurologic: Denies Sensory deficit (Neuro) [facility] Past Medical History Attestation statement: The following information was validated with the patient. Medical History Anemia Arthritis Asthma Asthma exacerbation Asthma-COPD overlap syndrome Back pain Bronchitis Chronic pain syndrome Complex regional pain syndrome i of left lower limb Cough Depression Diabetic neuropathy Diet-controlled diabetes mellitus Disc degeneration, lumbosacral Dizziness Elevated lactic acid level Essential hypertension Fibromyalgia Headache Headache, migraine Hypogammaglobulinemia Hypothyroidism Laryngotracheitis Low back pain Morbid obesity Nausea vomiting and diarrhea BABATUNDE (obstructive sleep apnea) Pleuritic chest pain 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 Pulmonary embolism Sleep apnea 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 TIA (transient ischemic attack) Type 2 diabetes mellitus with unspecified complications Surgical History History of bariatric surgery History of cholecystectomy History of esophagogastroduodenoscopy (EGD) Hx of colonoscopy S/P total abdominal hysterectomy Family History Family History Mother Diabetes Stroke Family/Other Diabetes Father Diabetes Social History Social History Household Members: Significant Other Housing: House Do you presently have visiting nurse or other home services: No Alcohol intake: unknown Patient Tobacco Use Status: Never used Tobacco e-Cigarette/Vaping Use: Never Used Advance Directives: No Advance Directives Information Provided: No Advance Directives Date on File: 05/23/21 service: No Current occupational status: unemployed and disabled Physical Exam Vital Signs: Vital Signs: Last Vital Signs Temp 97.7 F 01/21/22 17:40 Pulse 88 01/21/22 17:40 Resp 16 01/21/22 17:40 BP 107/58 L 01/21/22 17:40 Pulse Ox 100 01/21/22 17:40 BMI result Body Mass Index 31.8 Const: General: cooperative, healthy appearing, no acute distress, alert and awake Orientation/consciousness: patient oriented x3 Limitations: no limitations HEENT: Head: Yes normal to inspection and Yes atraumatic Ears: hearing grossly normal bilaterally General nose exam: Normal external nose present Face and sinus: Yes normal facial exam Eyes: General: appearance normal, both eyes and all related structures EOM: EOMs intact bilaterally Neck: Other: no midline cervical spinous tenderness Neck: Yes normal visual inspection Resp: Effort & Inspection: normal respiratory effort and no respiratory distress Auscultation: clear to auscultation bilaterally Cardio: Rate: regular rate Heart sounds: S1 normal heart sound present and S2 normal heart sound present GI: Inspection: Yes normal to inspection Palpation (GI): Soft to palpation, Tenderness to palpation present (GI) in the epigastrum, no guarding and not rigid : General: Yes no CVA tenderness Back/Spine/Pelvis: Other: no midline thoracic/ lumbar spinous tenderness/ step-off or deformity. Diffuse MSK thoracic and lumbar back pain, no appreciable deformity/erythema or ecchymosis Back: no CVA tenderness Skin: Rashes: no rashes Wounds: no wounds Neuro: Other: ambulating with steady gait, no saddle anesthesia, strength intact throughout General: patient oriented x3, tone normal, moves all extremities and no focal motor deficits Gait exam (Neuro): Normal gait present Motor exam (neuro): strength not 5/5 throughout Sensory Exam: No Sensory deficit (Neuro) Extrem: General: Yes normal to inspection Course Course Course Narrative: -1730-- no leukocytosis. Labs otherwise unremarkable, troponin negative - UA with trace leuk esterase, 5-9 wbc's, and 1+ bacteria, no blood > will treat for UTI > renal stone unlikely Patient persistently asking for pain medication, and Dilaudid specifically. On re-evaluation patient is sleeping comfortably in stretcher with earplugs and face mask on. Discussed with patient she just filled 60 pills of oxycodone on 01/05 and this does not require additional opiates today in the emergency department for UTI /back spasming. MDM - Back Pain/Injury MDM Narrative Medical decision making narrative: 52-year-old female with a past medical history HTN, HLD, DM, diabetic neuropathy, chronic pain syndrome, anxiety, depression, lumbar spine disc disease, fibromyalgia, sleep apnea, PE on Eliquis, asthma, hypogammaglobulinemia, TIA, migraines, presenting to the ED complaining of diffuse atraumatic back pain x few days radiating down LLE. Also reports suprapubic discomfort, dysuria, epigastric abdominal pain, nausea, and chest pain yesterday. On exam mildly tachypneic and tachycardic likely from pain, NAD/ nontoxic abdomen soft with epigastric tenderness, no rebound or guarding, no midline spinous tenderness, no red flag symptoms. Concern for MSK back pain/ strain/ spasming vs sciatica. R/o UTI/pyelo. Concern for GERD/gastritis. Unlikely pancreatitis or cholecystitis/lithiasis. R/o ACS. Low concern for cauda equina or cord compression Plan: EKG, labs, UA, sx tx, reassess Differential Diagnosis Differential diagnosis: Likely lumbar radiculopathy, sciatica, renal colic and pyelonephritis Medical Records Attestation: I reviewed the patient's medical records. Lab Data Attestation: I reviewed the patient's lab results. Result diagrams: 01/21/22 16:47 01/21/22 16:47 Labs: Lab Results 01/21/22 01/21/22 01/21/22 Range/Units 16:47 16:47 16:47 WBC 5.7 (4.8-10.8) X10*3/uL RBC 4.29 (4.20-5.50) X10*6/uL Hgb 12.0 (12.0-16.0) g/dl Hct 38.6 (37.0-47.0) % MCV 90.0 (80.0-98.0) fL MCH 28.0 (27.0-33.0) pg MCHC 31.1 (31.0-35.0) g/dl RDW 14.1 (11.0-16.0) % Plt Count 299 (160-400) X10*3/uL MPV 9.0 L (9.4-12.3) fL Immature Gran % (Auto) 0.3 (0.0-0.4) % Neut % (Auto) 60.7 (45-73) % Lymph % (Auto) 26.3 (20-40) % [place] % (Auto) 8.0 (2-11) % Eos % (Auto) 4.4 H (0-4) % Baso % (Auto) 0.3 (0-2) % Lymph # (Auto) 1.5 (1.2-4.9) X10*3/uL [place] # (Auto) 0.5 (0.1-1.2) X10*3/uL Eos # (Auto) 0.3 (0.0-0.4) X10*3/uL Baso # (Auto) 0.0 (0.0-0.2) X10*3/uL Abs Immat Gran (auto) 0.02 (0.00-0.03) X10*3/uL Absolute Neuts (auto) 3.5 (2.0-8.3) x10*3/uL Absolute Nucleated RBC 0.000 (0.0-0.012) X10*3/uL Nucleated RBC % (auto) 0.0 (0.0-0.2) /100WBC Sodium 138 (135-145) mmol/L Potassium 4.1 (3.3-5.1) mmol/L Chloride 103 (96-108) mmol/L Carbon Dioxide 27 (22-29) mmol/L Anion Gap 12 (12-20) BUN 16 (9-16) mg/dL Creatinine 1.08 (0.5-1.4) mg/dL Estim Creat Clear Calc 65.5 Estimated GFR 53 Random Glucose 106 (60-115) mg/dL Calcium 10.5 H (8.4-10.2) mg/dL Total Bilirubin 0.4 (0.0-1.0) mg/dL Direct Bilirubin < 0.2 (0.0-0.5) mg/dL AST 18 (5-31) U/L ALT 15 (0-31) U/L Alkaline Phosphatase 98 D (39-117) U/L Troponin I High Sens < 3.5 (<3.5-17.0) ng/L Total Protein 6.0 L (6.5-8.0) g/dL Albumin 3.5 (3.5-5.0) g/dL Lipase 14 (8-78) U/L Urine Color Urine Appearance Urine pH (5.0-8.0) Ur Specific [place] (1.005-1.025) Urine Protein (NEG-TRACE) MG/DL Urine Glucose (UA) (NEG) MG/DL Urine Ketones (NEG) MG/DL Urine Blood (NEG) Urine Nitrite (NEG) Ur Leukocyte Esterase (NEG) Urine RBC (0) /HPF Urine WBC (0-4) /HPF Ur Squamous Epith Cells /LPF Calcium Oxalate Crystal /LPF Urine Bacteria /LPF 01/21/22 Range/Units 16:47 WBC (4.8-10.8) X10*3/uL RBC (4.20-5.50) X10*6/uL Hgb (12.0-16.0) g/dl Hct (37.0-47.0) % MCV (80.0-98.0) fL MCH (27.0-33.0) pg MCHC (31.0-35.0) g/dl RDW (11.0-16.0) % Plt Count (160-400) X10*3/uL MPV (9.4-12.3) fL Immature Gran % (Auto) (0.0-0.4) % Neut % (Auto) (45-73) % Lymph % (Auto) (20-40) % [place] % (Auto) (2-11) % Eos % (Auto) (0-4) % Baso % (Auto) (0-2) % Lymph # (Auto) (1.2-4.9) X10*3/uL [place] # (Auto) (0.1-1.2) X10*3/uL Eos # (Auto) (0.0-0.4) X10*3/uL Baso # (Auto) (0.0-0.2) X10*3/uL Abs Immat Gran (auto) (0.00-0.03) X10*3/uL Absolute Neuts (auto) (2.0-8.3) x10*3/uL Absolute Nucleated RBC (0.0-0.012) X10*3/uL Nucleated RBC % (auto) (0.0-0.2) /100WBC Sodium (135-145) mmol/L Potassium (3.3-5.1) mmol/L Chloride (96-108) mmol/L Carbon Dioxide (22-29) mmol/L Anion Gap (12-20) BUN (9-16) mg/dL Creatinine (0.5-1.4) mg/dL Estim Creat Clear Calc Estimated GFR Random Glucose (60-115) mg/dL Calcium (8.4-10.2) mg/dL Total Bilirubin (0.0-1.0) mg/dL Direct Bilirubin (0.0-0.5) mg/dL AST (5-31) U/L ALT (0-31) U/L Alkaline Phosphatase (39-117) U/L Troponin I High Sens (<3.5-17.0) ng/L Total Protein (6.5-8.0) g/dL Albumin (3.5-5.0) g/dL Lipase (8-78) U/L Urine Color YELLOW Urine Appearance CLEAR Urine pH 6.0 (5.0-8.0) Ur Specific [place] 1.025 (1.005-1.025) Urine Protein NEG (NEG-TRACE) MG/DL Urine Glucose (UA) NEG (NEG) MG/DL Urine Ketones NEG (NEG) MG/DL Urine Blood NEG (NEG) Urine Nitrite NEG (NEG) Ur Leukocyte Esterase TRACE H (NEG) Urine RBC 0 (0) /HPF Urine WBC 5-9 H (0-4) /HPF Ur Squamous Epith Cells 2+ /LPF Calcium Oxalate Crystal 1+ /LPF Urine Bacteria 1+ /LPF ECG Data Attestation: I personally reviewed and interpreted this ECG as follows: ECG interpretation date: 01/21/22 ECG interpretation time: 16:32 Interpretation: EKG normal sinus rhythm at a rate of 84. T-wave inversions in V1 through V3. No STEMI Discharge Plan Discharge Clinical Impression: UTI (urinary tract infection), Back pain Patient Disposition: Home, Self-Care Instructions: Urinary Tract Infection in Women (DC), Back Pain (ED) Additional Instructions: Your blood work was reassuring. You do have a urinary tract infection Ceftin is as antibiotic please take as prescribed Your pain is likely musculoskeletal Flexeril is a muscle relaxer, take at night as it makes you drowsy, do not drive, drink alcohol, or operate machinery while taking it Lidoderm patches are numbing patches, apply to painful area In addition take Tylenol at home If symptoms persist or worsen, pain becomes unbearable, you developed urinary retention or incontinence, or weakness return to the ED [place] an?lisis de alberto fue tranquilizador. Tienes parisa infecci?n del tracto urinario. Ceftin es un antibi?krystal, t?ralph seg?n lo prescrito. Es probable que bateman dolor sea musculoesquel?krystal Flexeril es un relajante muscular, t?jason por la noche ya que te adormece, no conduzcas, bebas alcohol ni operes maquinaria mientras lo jeniffer. Los parches de Lidoderm son parches anest?sicos, se aplican en el ?evaristo dolorida Adem?s odette Tylenol en casa Si los s?ntomas persisten o empeoran, el dolor se vuelve insoportable, desarroll? retenci?n urinaria o incontinencia, o debilidad, regrese al servicio de urgencias. Prescriptions: New cefuroxime axetil 250 mg tablet 250 mg PO BID 7 Days Qty: 14 0RF acetaminophen [Tylenol Extra Strength] 500 mg tablet 500 mg PO Q6H PRN (Reason: pain or fever) Qty: 20 0RF lidocaine [Lidoderm] 5 % adhesive patch,medicated 1 patch topical DAILY MDD remove after 12 hours PRN (Reason: pain) Qty: 30 0RF Rx Instructions: leave on most painful area for up to 12 hrs cyclobenzaprine 5 mg tablet 5 mg PO Q8H PRN (Reason: pain (scale score 7-10)) 5 Days Qty: 14 0RF No Action gabapentin [Neurontin] 300 mg capsule 600 mg PO BID 30 Days Qty: 120 11RF immun glob G(IgG)-pro-IgA 0-50 [Privigen] 10 % solution 40 g IV .monthly Qty: 400 11RF sucralfate 1 gram tablet 2 g PO DAILY Qty: 60 2RF benzonatate 200 mg capsule 200 mg PO TID PRN (Reason: cough) 30 Days Qty: 60 3RF oxycodone 5 mg tablet 5 mg PO BID PRN (Reason: pain) 30 Days Qty: 60 0RF Rx Instructions: DNF till 02/04/2022 hydroxyzine HCl 25 mg tablet 1 tab PO TID PRN (Reason: Anxiety) 0RF ondansetron 4 mg tablet,disintegrating 4 mg PO TID PRN (Reason: nausea and vomiting) 5 Days Qty: 10 0RF montelukast 10 mg tablet 10 mg PO BEDTIME 0RF albuterol sulfate 90 mcg/actuation HFA aerosol inhaler 1 inh inhalation QID PRN (Reason: shortness of breath or wheezing) Qty: 18 0RF losartan 100 mg tablet 1 tab PO DAILY 0RF wovagghmuj-bkdrygxtpvkzc-lvou [Fioricet] 50-300-40 mg capsule 1 cap PO Q4H PRN (Reason: pain) Qty: 20 0RF quetiapine 200 mg tablet 1 tab PO BEDTIME 0RF lorazepam 0.5 mg tablet 1 tab PO DAILY PRN (Reason: anxiety) 0RF Anoro Ellipta 62.5-25 mcg/actuation blister with device 1 puff inhalation DAILY 0RF dicyclomine 20 mg tablet 1 tab PO QID 0RF omeprazole 20 mg capsule,delayed release(DR/EC) 1 cap PO DAILY 0RF zolpidem 10 mg tablet 1 tab PO BEDTIME PRN (Reason: Insomnia) 0RF escitalopram oxalate 10 mg tablet 1 tab PO DAILY 0RF cholecalciferol (vitamin D3) 25 mcg (1,000 unit) tablet 25 mcg PO DAILY 0RF apixaban 5 mg tablet 5 mg PO BID 30 Days Qty: 60 6RF cyanocobalamin (vitamin B-12) 1,000 mcg tablet 1,000 mcg PO DAILY 0RF alosetron [Lotronex] 1 mg tablet 1 mg PO BID 30 Days Qty: 60 6RF Daliresp 500 mcg tablet 500 mcg PO DAILY 30 Days Qty: 30 12RF Referrals: Claudia Villatoro MD [Primary Care Provider] - 2 days Interventions: ED Discharge Assessment Last Done: 01/21/22 18:01 Discharge Date/Time: 01/21/22 18:05 Print Language: Sudanese
[2022-01-21 16:53] LABS: MANUAL DIFF FLAG NO
[2022-01-21 16:55] LABS: Appearance Urine CLEAR; Basophils Percent Auto 0.3 % (0-2); Color Urine YELLOW; Eosinophils Absolute Auto 0.3 X10*3/uL (0.0-0.4); Eosinophils Percent Auto 4.4 % (0-4); Glucose Urine UA NEG (NEG); Hematocrit 38.6 % (37.0-47.0); Imm Gran Abs Auto 0.02 X10*3/uL (0.00-0.03); Imm Gran Pct Auto 0.3 % (0.0-0.4); Leukocyte Esterase Urine TRACE (NEG); Lymphocytes Absolute Auto 1.5 X10*3/uL (1.2-4.9); Lymphocytes Percent Auto 26.3 % (20-40); Mean Corpuscular HGB Conc 31.1 g/dl (31.0-35.0); Monocytes Absolute Auto 0.5 X10*3/uL (0.1-1.2); Neutrophils Absolute Auto 3.5 x10*3/uL (2.0-8.3); Neutrophils Percent Auto 60.7 % (45-73); Nitrite Urine NEG (NEG); Platelet Count 299 X10*3/uL (160-400); Red Blood Count 4.29 X10*6/uL (4.20-5.50); Red Cell Distribution Width 14.1 % (11.0-16.0); Specific Gravity - Urine 1.025 (1.005-1.025); UACC Culture Trigger YES; Urine Blood NEG (NEG); Urine Ketones NEG (NEG); Urine Protein NEG (NEG-TRACE); White Blood Count 5.7 X10*3/uL (4.8-10.8)
[2022-01-21 16:59] LABS: Bacteria Urine 1+ /LPF; Calcium Oxalate Crystals Urine 1+ /LPF; RBC Urine 0 /HPF (0); Squamous Epithelial Cell Urine 2+ /LPF
[2022-01-21] MEDS: Ondansetron ODT 4 MG TAB.RAPDIS TRANSLINGU (17:13)
[2022-01-21] MEDS: Famotidine 20 MG TABLET PO (17:13)
[2022-01-21] MEDS: Acetaminophen 325 MG TABLET 650 MG PO (17:13)
[2022-01-21 17:14] LABS: Alanine Aminotransferase 15 U/L (0-31); Albumin Level 3.5 g/dL (3.5-5.0); Alkaline Phosphatase 98 U/L (39-117); Anion Gap 12 (12-20); Aspartate Amino Transferase 18 U/L (5-31); Bilirubin Direct < 0.2 mg/dL (0.0-0.5); Bilirubin Total 0.4 mg/dL (0.0-1.0); Blood Urea Nitrogen 16 mg/dL (9-16); Calcium 10.5 mg/dL (8.4-10.2); Carbon Dioxide 27 mmol/L (22-29); Chloride 103 mmol/L (96-108); Creatinine Clr Calc Pharmacy 65.5; Estimated Glomerular Filt Rate 53; Glucose Random 106 mg/dL (60-115); Lipase 14 U/L (8-78); Potassium 4.1 mmol/L (3.3-5.1); Sodium 138 mmol/L (135-145)
[2022-01-21] MEDS: Lidocaine HCl Viscous 2 % 15 ML SOLUTION MUCOUS MEM (17:14)
[2022-01-21] MEDS: Magnesium Hydrox/Alum Hydrox 30 ML ORAL.SUSP PO (17:14)
[2022-01-21 17:17] LABS: Troponin-I High Sensitivity < 3.5 ng/L (<3.5-17.0)
[2022-01-21 17:40] VITALS: BP 107/58; PULSE 88; RESP 16; TEMP 36.5; O2SAT 100
== END 2022-01-21 18:05 | disposition home or self-care (01) ==
PROVIDERS: Physician Assistant; Emergency Provider Internal Medicine; PCP Internal Medicine
DX: N39.0 Urinary tract infection, site not specified (principal); R07.89 Other chest pain; M54.50 Low back pain, unspecified; I10 Essential (primary) hypertension; E11.9 Type 2 diabetes mellitus without complications; Z79.899 Other long term (current) drug therapy
CPT/HCPCS: 36415; 80048; 80076; 81001; 83690; 84484; 85025; 87086; 93005; 99283; 99284

== ENCOUNTER 2022-01-23 08:15 | Day surgery (SDC) | payer OTHER, SELFPAY ==
--- NOTE | 2022-01-22 10:14 | P.CONAN_ITS ---
Documented by User: Polina Christopher NP 01/22/22 10:23 HPI - Anesthesia Eval Consult details Narrative: 52yo F for L4-L5 and L5-S1 Intraarticular Facet Joint Injections Chronic opioids Eliquis for hx PE PMFSH Active Problems Active Problems: All Active Problems (Updated 01/22/22 @ 00:02 by Titi Camilo) Asthma-COPD overlap syndrome (Acute) Chronic bronchitis (Acute) Spondylosis of lumbar joint (Acute) Chronic gastritis (Acute) Irritable bowel syndrome with diarrhea (Acute) Epigastric pain (Acute) Bile salt-induced diarrhea (Acute) Disc degeneration, lumbosacral (Acute) Migraine with acute onset aura (Acute) Acute severe exacerbation of moderate persistent asthma (Acute) Cough (Acute) BABATUNDE (obstructive sleep apnea) (Acute) Chronic pain syndrome (Acute) Spondylosis of lumbar spine (Acute) Low back pain (Acute) Complex regional pain syndrome i of left lower limb (Acute) Diabetic neuropathy (Acute) Laryngotracheitis (Acute) Essential hypertension (Acute) Type 2 diabetes mellitus with unspecified complications (Acute) Morbid obesity (Acute) Precordial chest pain (Acute) Radiculopathy (Acute) Anemia (Acute) Back pain (Acute) TIA (transient ischemic attack) (Acute) Sleep apnea (Acute) Hypothyroidism (Acute) Fibromyalgia (Acute) Diet-controlled diabetes mellitus (Acute) Asthma (Acute) Arthritis (Acute) Hypogammaglobulinemia (Acute) Pleuritic chest pain (Acute) Pulmonary embolism (Acute) Past Medical History Medical History Anemia Arthritis Asthma Asthma exacerbation Asthma-COPD overlap syndrome Back pain Bronchitis Chronic pain syndrome Complex regional pain syndrome i of left lower limb Cough Depression Diabetic neuropathy Diet-controlled diabetes mellitus Disc degeneration, lumbosacral Dizziness Elevated lactic acid level Essential hypertension Fibromyalgia Headache Headache, migraine Hypogammaglobulinemia Hypothyroidism Laryngotracheitis Low back pain Morbid obesity Nausea vomiting and diarrhea BABATUNDE (obstructive sleep apnea) Pleuritic chest pain 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 Pulmonary embolism Sleep apnea 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 TIA (transient ischemic attack) Type 2 diabetes mellitus with unspecified complications Family History Family History Mother Diabetes Stroke Family/Other Diabetes Father Diabetes Surgical History Surgical History History of bariatric surgery History of cholecystectomy History of esophagogastroduodenoscopy (EGD) Hx of colonoscopy S/P total abdominal hysterectomy Social History Social History Household Members: Significant Other Housing: House Do you presently have visiting nurse or other home services: No Alcohol intake: unknown Patient Tobacco Use Status: Never used Tobacco e-Cigarette/Vaping Use: Never Used Advance Directives Date on File: 05/23/21 service: No Current occupational status: unemployed and disabled Meds Allergies Allergy/AdvReac Type Severity Reaction Status Date / Time No Known Allergies Allergy Verified 01/19/22 13:18 Home Medications Medication Instructions Recorded Confirmed Last Taken Type montelukast 10 mg tablet 10 mg PO BEDTIME 08/02/20 01/19/22 11/11/21 History cyanocobalamin (vitamin B-12) 1,000 mcg PO DAILY 11/05/20 01/19/22 11/11/21 History 1,000 mcg tablet hydroxyzine HCl 25 mg tablet 1 tab PO TID PRN 12/12/20 01/19/22 11/11/21 History cholecalciferol (vitamin D3) 25 25 mcg PO DAILY 03/19/21 01/19/22 11/11/21 Hist ory mcg (1,000 unit) tablet losartan 100 mg tablet 1 tab PO DAILY 05/12/21 01/19/22 11/11/21 History lorazepam 0.5 mg tablet 1 tab PO DAILY PRN 10/12/21 01/19/22 11/11/21 History quetiapine 200 mg tablet 1 tab PO BEDTIME 10/12/21 01/19/22 11/11/21 History umeclidinium 62.5 mcg-vilanterol 1 puff INHALATION DAILY 10/12/21 01/19/22 11/11/21 History 25 mcg/actuation powdr for inhalation (Anoro Ellipta) omeprazole 20 mg capsule,delayed 1 cap PO DAILY 11/12/21 01/19/22 11/11/21 History release zolpidem 10 mg tablet 1 tab PO BEDTIME PRN 11/12/21 01/19/22 11/11/21 History escitalopram oxalate 10 mg tablet 1 tab PO DAILY 11/13/21 01/19/22 11/11/21 History dicyclomine 20 mg tablet 1 tab PO QID 01/19/22 01/19/22 Unknown History Exam Exam Date and Time: January 22, 2022 1014 Pertinent Lab Results Pertinent Lab Results: Laboratory Tests 01/21/22 01/21/22 16:47 16:47 WBC 5.7 Hgb 12.0 Hct 38.6 Plt Count 299 Sodium 138 Potassium 4.1 Chloride 103 Carbon Dioxide 27 BUN 16 Creatinine 1.08 Narrative Narrative: EKG 12/2021 Vent. Rate : 084 BPM ? ? Atrial Rate : 084 BPM ?? P-R Int : 132 ms? QRS Dur : 102 ms ? ? QT Int : 388 ms ? ? ? P-R-T Axes : 042 009 014 degrees ?? QTc Int : 458 ms ? Normal sinus rhythm Normal ECG When compared with ECG of 13-NOV-2021 00:15, Nonspecific T wave abnormality now evident in Anterior leads ECHO 11/2020 Conclusions: -? Essentially normal study?? NM hong perf SPECT rest & str 11/2020 Impression: ? 1.? Myocardial perfusion imaging study shows no definitive ischemia. Small reversible defect in the distal lateral wall that could be from soft tissue attenuation. Based on normal contractility, suspect artifactual. Less likely to be a true defect. 2.? Gated LVEF is 55% during stress and 73% during rest. 3. Transient ischemic dilatation not present. ? EKG component of the test reported separately. (nondiagnostic) Assessment and Plan Assessment Anesthesia Assessment: Chart Reviewed Documented by User: Edwar Barroso MD 01/23/22 17:15 HPI - Anesthesia Eval Consult details Narrative: 52yo F for L4-L5 and L5-S1 Intraarticular Facet Joint Injections Chronic opioids Eliquis for hx PE, stopped Eliquis 3 days ago PCP on board back pain with radiation to b/l LE , tingling , numbness PMFSH Past Medical History Medical History Anemia Arthritis Asthma Asthma exacerbation Asthma-COPD overlap syndrome Back pain Bronchitis Chronic pain syndrome Complex regional pain syndrome i of left lower limb Cough Depression Diabetic neuropathy Diet-controlled diabetes mellitus Disc degeneration, lumbosacral Dizziness Elevated lactic acid level Essential hypertension Fibromyalgia Headache Headache, migraine Hypogammaglobulinemia Hypothyroidism Laryngotracheitis Low back pain Morbid obesity Nausea vomiting and diarrhea BABATUNDE (obstructive sleep apnea) Pleuritic chest pain 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 Pulmonary embolism Sleep apnea 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 TIA (transient ischemic attack) Type 2 diabetes mellitus with unspecified complications Family History Family History Mother Diabetes Stroke Family/Other Diabetes Father Diabetes Family history of problems with anesthesia: No Surgical History Surgical History History of bariatric surgery History of cholecystectomy History of esophagogastroduodenoscopy (EGD) Hx of colonoscopy S/P total abdominal hysterectomy History of Problems with Anesthesia: No Social History Social History Household Members: Significant Other Housing: House Do you presently have visiting nurse or other home services: No Alcohol intake: unknown Patient Tobacco Use Status: Never used Tobacco e-Cigarette/Vaping Use: Never Used Advance Directives Date on File: 05/23/21 service: No Current occupational status: unemployed and disabled Meds Allergies Allergy/AdvReac Type Severity Reaction Status Date / Time No Known Allergies Allergy Verified 01/19/22 13:18 Home Medications Medication Instructions Recorded Confirmed Last Taken Type montelukast 10 mg tablet 10 mg PO BEDTIME 08/02/20 01/19/22 11/11/21 History cyanocobalamin (vitamin B-12) 1,000 mcg PO DAILY 11/05/20 01/19/22 11/11/21 History 1,000 mcg tablet hydroxyzine HCl 25 mg tablet 1 tab PO TID PRN 12/12/20 01/19/22 11/11/21 History cholecalciferol (vitamin D3) 25 25 mcg PO DAILY 03/19/21 01/19/22 11/11/21 History mcg (1,000 unit) tablet losartan 100 mg tablet 1 tab PO DAILY 05/12/21 01/19/22 11/11/21 History lorazepam 0.5 mg tablet 1 tab PO DAILY PRN 10/12/21 01/19/22 11/11/21 History quetiapine 200 mg tablet 1 tab PO BEDTIME 10/12/21 01/19/22 11/11/21 History umeclidinium 62.5 mcg-vilanterol 1 puff INHALATION DAILY 10/12/21 01/19/22 11/11/21 History 25 mcg/actuation powdr for inhalation (Anoro Ellipta) omeprazole 20 mg capsule,delayed 1 cap PO DAILY 11/12/21 01/19/22 11/11/21 History release zolpidem 10 mg tablet 1 tab PO BEDTIME PRN 11/12/21 01/19/22 11/11/21 History escitalopram oxalate 10 mg tablet 1 tab PO DAILY 11/13/21 01/19/22 11/11/21 History dicyclomine 20 mg tablet 1 tab PO QID 01/19/22 01/19/22 Unknown History Exam Airway Mallampati Class: III TM Dist: >3cm Neck ROM: Full Loose/Missing/Broken Teeth: Yes Heart: rrr Lungs: bl breath sounds Assessment and Plan Assessment Anesthesia Assessment: Anesthesia Plan Discussed Final Anesthetic Review Family History of Problems with Anesthesia: No History of Problems with Anesthesia: No NPO: Yes ASA Class: III Final Preanesthetic Review: Meds/Allgs Chart Reviewed, Consent Obtained/Reviewed and Anes Risks/Benef Reviewed Patient Risk: Intermediate Procedure Risk: Intermediate Anesthetic Plan Anesthetic Plan: MAC: Disposition: Standard PACU
[2022-01-23] VITALS (8 sets, daily range): BP systolic 106–121; BP diastolic 62–77; PULSE 76–97; RESP 10–19; TEMP 36.1–36.4; O2SAT 96–99; BMI 37.5
--- NOTE | ~2022-01-23 | FL_ITS ---
EXAMINATION: XR FLUOROSCOPY WITH IMAGES CLINICAL INFORMATION: Facet joint injections. COMPARISON: None. TECHNIQUE: Fluoroscopy performed by Dr. Flynn Ugalde Fluoroscopy time: 0.7 minutes DAP: 9.14 mGycm2 Images: 5 FINDINGS: There is a right L3-L4, L4-L5, left L5-S1, L4-L5 and L3-L4 needles at the facet joints with contrast opacifying the soft tissues. On the visualized images, there is no lytic or sclerotic process. FL/FL guidance in OR IMPRESSION: Fluoroscopy was provided to referring physician for pain management.
[2022-01-23] MEDS: Lactated Ringers 1,000 ML 100 ML IVCONT (09:09)
--- NOTE | 2022-01-23 09:24 | P.OP_ITS ---
Operative Note Operative Note Date of Service: 01/23/22 Narrative: Maye is very pleasant 52 years old female who came to OR for the bilateral intra-articular facet joint injections L4-5 and L5-S1 in the attempt to treat spondylosis of the lumbar spine and facet joint degeneration. After obtaining informed consent patient was brought to the operating room, SHE was positioned prone on operating table, [place] [employer] monitors were applied and patient was moderate sedated. ? Time-out was performed delineating correct site, side, the nature of the procedure, patient's allergy, preoperative antibiotic if needed.? All operating room staff was participating in OR time-out procedure. Patient's entire back was prepped with ChloraPrep twice and draped with sterile utility drapes. C-arm was brought over operating field and square picture of L4 and L5 vertebra as well as sacral bone were demonstrated on the screen.? The point of interest were determined as the articular spaces of L4-5 and L5-S1 bilateral vertebras.? Each point of interest projection to the skin was injected with small amount of lidocaine 2%.? After that 22 gauge 5 inch needle was driven to? the each joint in tunnel vision fashion on anterior posterior and lateral views.? Lateral views was used to determine that the needle did not advance to were the foramina or spinal canal.? When tip of the needle was sensed to enter the joint injection of the contrast was performed demonstrating intra-articular spread of the contrast.? The injection of the Kenalog mixed with bupivacaine was followed.? Total dose of Kenalog was 80 mg.? The patient tolerated procedure well.? Upon completion of the injections needle was removed sterile dressing was applied.? The patient was taken to the recovery room where she recovered uneventfully.?
--- NOTE | 2022-01-23 11:47 | MHC.SHP ---
Pre-Procedural Eval Section A Date of Service: 01/23/22 The patient is an INPATIENT: No Changes since office visit: Yes Patient answered all questions The History & Physical has been completed within 30 days and I have reviewed it.: No Section B Chief Complaint: Spondylosis of lumbar joint Details of Present Illness: as above Relevant Family History (Specify if Yes): No Relevant Social History: None Present Medications: see Short Stay Collaborative assessment Medical History: No relevant PMH History of Previous Operations: No relevant previous surgery Allergies: Allergies Allergy/AdvReac Type Severity Reaction Status Date / Time No Known Allergies Allergy Verified 01/19/22 13:18 Review of Systems Sugical H&P ROS: Negative: Constitution, Cardiovascular, Respiratory, Neurological, Psychiatric, Hem-Onc, Allergic/Immunologic, Gastrointestinal, Genitourinary, Integumentary, Endocrine and Eyes/Ears/Nose/Throat and Yes, Specify: Musculoskeletal (spondylosi lumbar joints) Exam Surgical H&P Exam: Normal: HEENT, Normal: Heart, Normal: Lungs, Normal: Extremities, Normal: Abdomen, Normal: Skin and Normal: Neurological Plan Diagnosis/Plan: Unchanged I have reviewed the history and physical and performed a pertinent physical examination on my patient. No changes have occurred unless specified.
[2022-01-23 13:07] LABS: Glucose, Whole Blood 91 mg/dL (60-115)
--- NOTE | 2022-01-23 13:09 | P.BOP_ITS ---
Brief Operative Note Date of Service: 01/23/22 Pre-op diagnosis: spondylosis lumbar joints Post-op diagnosis: same Procedure: Facet joints injections L4- L5 and L5- S1 bilateral Surgeon: Flynn Ugalde MD Anesthesia: MAC Was an Veterinary Surgery Technologist used for this Procedure?: No Estimated blood loss (mL): 0 Pathology: none sent Condition: stable Disposition: PACU
[2022-01-23] MEDS: fentaNYL citrate/PF 100 MCG/2 ML VIAL 50 MCG IVPUSH (13:17)
[2022-01-23] MEDS: ondansetron HCL 4 MG/2 ML VIAL IVPUSH (13:17)
[2022-01-23] MEDS: Acetaminophen 325 MG TABLET 975 MG PO (13:18)
== END 2022-01-23 15:15 | disposition home or self-care (01) ==
PROVIDERS: PCP Internal Medicine; Visit Provider Anesthesiology
PROC: (CPT 64493; principal; 2022-01-23 10:40)
DX: M47.816 Spondylosis without myelopathy or radiculopathy, lumbar region (principal); M54.50 Low back pain, unspecified; G89.4 Chronic pain syndrome; G90.522 Complex regional pain syndrome I of left lower limb; M51.37 Other intervertebral disc degeneration, lumbosacral region; E11.40 Type 2 diabetes mellitus with diabetic neuropathy, unspecified; I10 Essential (primary) hypertension; J44.9 Chronic obstructive pulmonary disease, unspecified; I26.99 Other pulmonary embolism without acute cor pulmonale; E66.01 Morbid (severe) obesity due to excess calories; Z68.38 Body mass index [BMI] 38.0-38.9, adult; Z79.891 Long term (current) use of opiate analgesic; Z79.899 Other long term (current) drug therapy; Z86.73 Personal history of transient ischemic attack (TIA), and cerebral infarction without residual deficits
CPT/HCPCS: 64493; 64494 ×2; 82947; J2405; J3010; J3300; Q9967

== ENCOUNTER 2022-01-27 10:32 | Outpatient (REF) | payer OTHER, SELFPAY | END 2022-01-27 10:33 | disposition home or self-care (01) | LOC: HO.MDS 10:32 | PROVIDERS: PCP Internal Medicine; Visit Provider Hospitalist | DX: D80.1 Nonfamilial hypogammaglobulinemia (principal) | CPT/HCPCS: 96365; 96366; J1569 ==

== ENCOUNTER → 2022-02-11 12:58 | Outpatient (BNVA) | payer OTHER, SELFPAY | PROVIDERS: PCP Internal Medicine; Visit Provider Anesthesiology | DX: Z51.81 Encounter for therapeutic drug level monitoring (principal); F11.20 Opioid dependence, uncomplicated; M51.37 Other intervertebral disc degeneration, lumbosacral region; M54.59 Other low back pain; M47.816 Spondylosis without myelopathy or radiculopathy, lumbar region; M47.812 Spondylosis without myelopathy or radiculopathy, cervical region; M81.0 Age-related osteoporosis without current pathological fracture | CPT/HCPCS: 99212 ==

== ENCOUNTER 2022-02-24 10:48 | Outpatient (REF) | payer OTHER, SELFPAY | END 2022-02-24 10:49 | disposition home or self-care (01) | LOC: HO.MDS 10:48 | PROVIDERS: PCP Internal Medicine; Visit Provider Hospitalist | DX: D80.1 Nonfamilial hypogammaglobulinemia (principal) | CPT/HCPCS: 96365; 96366 ==

== ENCOUNTER → 2022-03-11 12:57 | Outpatient (BNVA) | payer OTHER, SELFPAY | PROVIDERS: PCP Internal Medicine; Visit Provider Anesthesiology | DX: Z13.89 Encounter for screening for other disorder (principal) ==

== ENCOUNTER → 2022-04-01 14:28 | Outpatient (BNVA) | payer OTHER, SELFPAY | PROVIDERS: PCP Internal Medicine; Visit Provider Anesthesiology | DX: Z79.899 Other long term (current) drug therapy (principal) | CPT/HCPCS: 99211 ==

== ENCOUNTER 2022-04-14 13:23 | Emergency (ER) | payer OTHER, SELFPAY ==
[2022-04-14 13:55] VITALS: BP 130/72; PULSE 73; RESP 18; TEMP 36.9; O2SAT 98; BMI 36.1
== END 2022-04-14 16:17 | disposition left against medical advice (07) ==
PROVIDERS: Emergency Provider Emergency Medicine; PCP Internal Medicine
DX: R21 Rash and other nonspecific skin eruption (principal)
CPT/HCPCS: 99281; 99283

== ENCOUNTER 2022-04-16 10:50 | Emergency (ER) | payer OTHER, SELFPAY ==
--- NOTE | ~2022-04-16 | XR_ITS ---
EXAMINATION: XR CHEST CLINICAL INFORMATION: Cough and fever COMPARISON: Chest radiograph 11/12/2021 TECHNIQUE: 2 views of the chest were obtained. FINDINGS: Aside from hypoexpanded lungs, no significant abnormality is noted involving the heart, lungs, mediastinum, bony thorax or soft tissues. XR/XR chest 2V IMPRESSION: No acute intrathoracic disease
[2022-04-16 10:56] VITALS: BP 120/73; PULSE 81; RESP 16; TEMP 36.6; O2SAT 97; BMI 37.6
--- NOTE | 2022-04-16 11:45 | ED.SKABFB ---
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 It is worsening. It is painful, itchy and burning. She has taken Benadryl but has not tried any topical creams. In addition to the rash, she complains of her acute on chronic cough. She states the cough is chronic but worsening lately. It is dry with no production of phlegm. She has no shortness of breath or difficulty breathing. She has been taking Tessalon with minimal effect. He also reports a subjective fever 2 days ago. She is vaccinated for COVID. MD complaint: rash Location: chest and genitals Severity: moderate Severity scale (1-10): 8 Quality: aching and pruritic Pain Consistency: constant Relieving factors: none Exacerbating factors: none Context: none Associated symptoms: denies other symptoms Treatments prior to arrival: none Related Data Home Medications Medication Instructions Recorded Confirmed montelukast 10 mg tablet 10 mg PO BEDTIME 08/02/20 01/19/22 cyanocobalamin (vitamin B-12) 1,000 mcg PO DAILY 11/05/20 01/19/22 1,000 mcg tablet hydroxyzine HCl 25 mg tablet 1 tab PO TID PRN Anxiety 12/12/20 01/19/22 cholecalciferol (vitamin D3) 25 25 mcg PO DAILY 03/19/21 01/19/22 mcg (1,000 unit) tablet losartan 100 mg tablet 1 tab PO DAILY 05/12/21 01/19/22 quetiapine 200 mg tablet 1 tab PO BEDTIME 10/12/21 01/19/22 umeclidinium 62.5 mcg-vilanterol 1 puff inhalation DAILY 10/12/21 01/19/22 25 mcg/actuation powdr for inhalation (Anoro Ellipta) omeprazole 20 mg capsule,delayed 1 cap PO DAILY 11/12/21 01/19/22 release zolpidem 10 mg tablet 1 tab PO BEDTIME PRN Insomnia 11/12/21 01/19/22 escitalopram oxalate 10 mg tablet 1 tab PO DAILY 11/13/21 01/19/22 dicyclomine 20 mg tablet 1 tab PO QID 01/19/22 01/19/22 Previous Rx's Medication Instructions Recorded albuterol sulfate 90 mcg/actuation 1 inh inhalation QID PRN shortness 10/13/20 aerosol inhaler of breath or wheezing #18 grams ondansetron 4 mg disintegrating 4 mg PO TID PRN nausea and 05/23/21 tablet vomiting 5 days #10 tabs immune glob,gamm(IgG) 10 %-pro-IgA 40 g IV .monthly #400 mL 05/26/21 0 to 50 mcg/mL intravenous solution (Privigen) apixaban 5 mg tablet 5 mg PO BID 30 days #60 tabs 06/27/21 omknwmwpyu-pfswsmroyxgkc-ehpzedmj 1 cap PO Q4H PRN pain #20 caps 08/08/21 50 mg-300 mg-40 mg capsule (Fioricet) alosetron 1 mg tablet (Lotronex) 1 mg PO BID 30 days #60 tabs 09/02/21 roflumilast 500 mcg tablet 500 mcg PO DAILY 30 days #30 tabs 11/03/21 (Daliresp) acetaminophen 500 mg tablet 500 mg PO Q6H PRN pain or fever 01/21/22 (Tylenol Extra Strength) #20 tabs cefuroxime axetil 250 mg tablet 250 mg PO BID 7 days #14 tabs 01/21/22 cyclobenzaprine 5 mg tablet 5 mg PO Q8H PRN pain (scale score 01/21/22 7-10) 5 days #14 tabs lidocaine 5 % topical patch 1 patch topical DAILY PRN pain #30 01/21/22 (Lidoderm) ea sucralfate 1 gram tablet 2 g PO DAILY #60 tabs 01/28/22 naloxone 4 mg/actuation nasal 4 mg intranasal Q2M PRN opioid 03/23/22 spray (Narcan) overdose #2 ea lorazepam 0.5 mg tablet 0.25 mg PO .QOD PRN anxiety 30 03/27/22 days #7 tabs oxycodone 5 mg tablet 5 mg PO TID PRN pain, severe 30 04/02/22 days #90 tabs benzonatate 200 mg capsule 200 mg PO TID PRN cough 30 days 04/03/22 #60 caps gabapentin 300 mg capsule 600 mg PO BID 30 days #120 caps 04/03/22 (Neurontin) benzonatate 100 mg capsule 100 mg PO TID PRN cough #30 caps 04/16/22 miconazole nitrate 2 % topical 1 spray topical BID #133 grams 04/16/22 spray powder Allergies Allergy/AdvReac Type Severity Reaction Status Date / Time No Known Allergies Allergy Verified 03/11/22 13:14 Review of Systems Review of Systems: Constitutional: No Fever, No Chills Cardiovascular: No Chest Pain, No SOB, No Orthopnea, No Edema Respiratory: + Cough, No Sputum, No Wheezing, No dyspnea Gastrointestinal: No Nausea, No Vomiting, No Diarrhea, No abdominal Pain Genitourinary: No Dysuria, No Urinary Frequency, No Hematuria Musculoskeletal: No joint pain, No Myalgias Skin: No Skin Lesions, + rash Neuro: No Weakness, No Numbness, No Dizziness, No Headache Psych:+ Anxiety/Panic, No Depression Heme/Lymph: No Bruising, No Lymphadenopathy Endocrine: No Polyuria, No Polydipsia PMFSH Past Medical History Medical History (Updated 04/16/22 @ 13:39 by MEGA Guerrero) Asthma exacerbation Bronchitis Depression Dizziness Elevated lactic acid level Headache Headache, migraine Nausea vomiting and diarrhea 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 Surgical History History of bariatric surgery History of cholecystectomy History of esophagogastroduodenoscopy (EGD) Hx of colonoscopy S/P total abdominal hysterectomy Family History Family History Mother Diabetes Stroke Family/Other Diabetes Father Diabetes Social History Social History Household Members: Significant Other Housing: House Do you presently have visiting nurse or other home services: No Alcohol intake: unknown Patient Tobacco Use Status: Never used Tobacco e-Cigarette/Vaping Use: Never Used Advance Directives: No Advance Directives Information Provided: No Advance Directives Date on File: 05/23/21 service: No Current occupational status: unemployed and disabled Physical Exam Vital Signs: Vital Signs: Last Vital Signs Temp 97.8 F 04/16/22 10:56 Pulse 81 04/16/22 10:56 Resp 16 04/16/22 10:56 BP 120/73 04/16/22 10:56 Pulse Ox 97 04/16/22 10:56 O2 Del Method 04/16/22 10:56 BMI result Body Mass Index 37.6 Appearance: Alert. Oriented X3. No acute distress. Eyes: Pupils equal, round and reactive to light. ENT: Pharynx normal. Neck: Normal inspection. Neck supple. CVS: Normal heart rate and rhythm. Pulses normal. Respiratory: No respiratory distress. Breath sounds normal. Dry raspy cough Abdomen: Obese, Soft and nontender. +BS x4 Skin: Skin warm and dry. Normal skin color. Normal skin turgor. Erythematous, raw, patches and plaques in the breast folds and inguinal folds consistent with a candidal infection. Extremities: No lower extremity edema. Neuro: Oriented X 3. Grossly normal, nonfocal Course Course Course Narrative: 52-year-old female presents to the ER for worsening rash under her bilateral breasts and in her inguinal folds for the last 2 weeks. Examination is consistent with fungal rash. Will give a dose of Diflucan given the extent of the rash and multiple locations. Will also prescribe topical antifungal agents. For her cough we will check a chest x-ray and COVID swab. She is not in respiratory distress and her lungs are clear. No evidence of asthma or COPD exacerbations. She has been compliant with her inhalers and she follows with Dr. Larry for her lungs. Reevaluation(s) Reevaluation #1: Chest x-ray is clear. COVID is negative. Topical nystatin applied with improvement in the burning sensation of her rashes. We discussed the importance of keeping the areas dry and good glucose control to allow for healing. tableau report developer used to discussed plan and management. She is stable for discharge home. MDM - Skin/Abscess/Foreign Bdy Lab Data Labs: Lab Results 04/16/22 Range/Units 12:06 COVID-19 ([facility]) Negative (Negative) COVID-19 Clin Com See Note Critical Care Time Critical Care Time Critical Care Time: No Discharge Plan Discharge Clinical Impression: Candidal skin infection, Chronic cough Patient Disposition: Home, Self-Care Instructions: Chronic Cough (ED), Skin Yeast Infection (ED) Additional Instructions: Your chest x-ray today was normal. You are negative for COVID-19. Recommend continuing your Tessalon Perles as needed for cough. Additional prescription was sent to your pharmacy. Recommend following up with your banquet food server for evaluation of her chronic cough. Use the prescribed topical powder spray 2-3 times per day to the affected area of your rash. You can also use any vmqy-rzx-npgksil cream or lotion for fungal rash, most common product is miconazole. Follow-up with your primary care doctor next week Prescriptions: New miconazole nitrate 2 % aerosol powder 1 spray topical BID Qty: 133 0RF benzonatate 100 mg capsule 100 mg PO TID PRN (Reason: cough) Qty: 30 0RF No Action immun glob G(IgG)-pro-IgA 0-50 [Privigen] 10 % solution 40 g IV .monthly Qty: 400 11RF sucralfate 1 gram tablet 2 g PO DAILY Qty: 60 2RF naloxone [Narcan] 4 mg/actuation spray,non-aerosol 4 mg intranasal Q2M PRN (Reason: opioid overdose) Qty: 2 0RF Rx Instructions: spray 1 dose into ONE nostril; alternate nostrils w each dose until help arrives lorazepam 0.5 mg tablet 0.25 mg PO .QOD PRN (Reason: anxiety) 30 Days Qty: 7 0RF Rx Instructions: decreasing the dose of lorazepam. TAKE HALF A PILL OF THE MEDICATION EVERY OTHER DAY. oxycodone 5 mg tablet 5 mg PO TID PRN (Reason: pain, severe) 30 Days Qty: 90 0RF Rx Instructions: Do not take within 2 hours of HS. Do not take within 1 hour before or after lorazepam. benzonatate 200 mg capsule 200 mg PO TID PRN (Reason: cough) 30 Days Qty: 60 3RF gabapentin [Neurontin] 300 mg capsule 600 mg PO BID 30 Days Qty: 120 11RF hydroxyzine HCl 25 mg tablet 1 tab PO TID PRN (Reason: Anxiety) ondansetron 4 mg tablet,disintegrating 4 mg PO TID PRN (Reason: nausea and vomiting) 5 Days Qty: 10 0RF montelukast 10 mg tablet 10 mg PO BEDTIME albuterol sulfate 90 mcg/actuation HFA aerosol inhaler 1 inh inhalation QID PRN (Reason: shortness of breath or wheezing) Qty: 18 0RF losartan 100 mg tablet 1 tab PO DAILY mttgmidxlr-ishlhcwyazlyt-csyc [Fioricet] 50-300-40 mg capsule 1 cap PO Q4H PRN (Reason: pain) Qty: 20 0RF quetiapine 200 mg tablet 1 tab PO BEDTIME Anoro Ellipta 62.5-25 mcg/actuation blister with device 1 puff inhalation DAILY dicyclomine 20 mg tablet 1 tab PO QID cefuroxime axetil 250 mg tablet 250 mg PO BID 7 Days Qty: 14 0RF acetaminophen [Tylenol Extra Strength] 500 mg tablet 500 mg PO Q6H PRN (Reason: pain or fever) Qty: 20 0RF lidocaine [Lidoderm] 5 % adhesive patch,medicated 1 patch topical DAILY MDD remove after 12 hours PRN (Reason: pain) Qty: 30 0RF Rx Instructions: leave on most painful area for up to 12 hrs cyclobenzaprine 5 mg tablet 5 mg PO Q8H PRN (Reason: pain (scale score 7-10)) 5 Days Qty: 14 0RF omeprazole 20 mg capsule,delayed release(DR/EC) 1 cap PO DAILY zolpidem 10 mg tablet 1 tab PO BEDTIME PRN (Reason: Insomnia) escitalopram oxalate 10 mg tablet 1 tab PO DAILY cholecalciferol (vitamin D3) 25 mcg (1,000 unit) tablet 25 mcg PO DAILY apixaban 5 mg tablet 5 mg PO BID 30 Days Qty: 60 6RF cyanocobalamin (vitamin B-12) 1,000 mcg tablet 1,000 mcg PO DAILY alosetron [Lotronex] 1 mg tablet 1 mg PO BID 30 Days Qty: 60 6RF Daliresp 500 mcg tablet 500 mcg PO DAILY 30 Days Qty: 30 12RF Referrals: Claudia Villatoro MD [Primary Care Provider] - Print Language: Angolan
[2022-04-16] MEDS: Fluconazole 150 MG TABLET PO (12:05)
[2022-04-16 12:33] LABS: COVID-19 Test Negative (Negative)
[2022-04-16] MEDS: Nystatin Powder 15 GM BOTTLE 1 APPL TOPICAL (13:13)
== END 2022-04-16 13:59 | disposition home or self-care (01) ==
PROVIDERS: Physician Assistant; Emergency Provider Student in an Organized Health Care Education/Training Program; PCP Internal Medicine
DX: B37.2 Candidiasis of skin and nail (principal); R05.3 Chronic cough; Z20.822 Contact with and (suspected) exposure to COVID-19; E11.9 Type 2 diabetes mellitus without complications; I10 Essential (primary) hypertension; Z86.73 Personal history of transient ischemic attack (TIA), and cerebral infarction without residual deficits; Z86.711 Personal history of pulmonary embolism
CPT/HCPCS: 71046; 87635; 99283

== ENCOUNTER → 2022-05-06 14:40 | Outpatient (BNVA) | payer OTHER, SELFPAY | PROVIDERS: PCP Internal Medicine; Visit Provider Anesthesiology | DX: M51.37 Other intervertebral disc degeneration, lumbosacral region (principal); M47.816 Spondylosis without myelopathy or radiculopathy, lumbar region; M47.812 Spondylosis without myelopathy or radiculopathy, cervical region; M81.0 Age-related osteoporosis without current pathological fracture; Z79.891 Long term (current) use of opiate analgesic | CPT/HCPCS: 99212 ==

== ENCOUNTER 2022-05-13 10:38 | Outpatient (REF) | payer OTHER, SELFPAY | END 2022-05-13 10:39 | disposition home or self-care (01) | LOC: HO.MDS 10:38 | PROVIDERS: PCP Internal Medicine; Visit Provider Hospitalist | DX: D80.1 Nonfamilial hypogammaglobulinemia (principal) | CPT/HCPCS: 96365; 96366 ==

== ENCOUNTER 2022-05-23 17:35 | Emergency (ER) | payer OTHER, SELFPAY ==
[2022-05-23 17:57] VITALS: BP 130/78; PULSE 95; RESP 20; TEMP 36.8; O2SAT 97; BMI 37.0
[2022-05-23 18:37] LABS: MANUAL DIFF FLAG NO
[2022-05-23 18:38] LABS: Basophils Percent Auto 0.4 % (0-2); Eosinophils Absolute Auto 0.3 X10*3/uL (0.0-0.4); Eosinophils Percent Auto 3.1 % (0-4); Hematocrit 37.6 % (37.0-47.0); Hemoglobin 11.9 g/dl (12.0-16.0); Imm Gran Abs Auto 0.04 X10*3/uL (0.00-0.03); Imm Gran Pct Auto 0.5 % (0.0-0.4); Lymphocytes Absolute Auto 2.4 X10*3/uL (1.2-4.9); Lymphocytes Percent Auto 28.6 % (20-40); Mean Corpuscular HGB Conc 31.6 g/dl (31.0-35.0); Mean Corpuscular Hemoglobin 27.6 pg (27.0-33.0); Mean Corpuscular Volume 87.2 fL (80.0-98.0); Mean Platelet Volume 8.5 fL (9.4-12.3); Monocytes Absolute Auto 0.6 X10*3/uL (0.1-1.2); Monocytes Percent Auto 6.8 % (2-11); Neutrophils Percent Auto 60.6 % (45-73); Platelet Count 356 X10*3/uL (160-400); Red Blood Count 4.31 X10*6/uL (4.20-5.50); Red Cell Distribution Width 16.4 % (11.0-16.0); White Blood Count 8.3 X10*3/uL (4.8-10.8)
[2022-05-23 18:54] LABS: Influenza A Negative (Negative); Influenza B2 Negative (Negative)
[2022-05-23 18:55] LABS: COVID-19 Test Negative (Negative); IDNOW Serial# 16C4AD1C
[2022-05-23 19:05] LABS: Anion Gap 13 (12-20); Blood Urea Nitrogen 27 mg/dL (9-16); Calcium 9.4 mg/dL (8.4-10.2); Carbon Dioxide 21 mmol/L (22-29); Chloride 108 mmol/L (96-108); Estimated Glomerular Filt Rate 37; Glucose Random 109 mg/dL (60-115); Potassium 4.2 mmol/L (3.3-5.1); Sodium 138 mmol/L (135-145)
== END 2022-05-24 01:33 | disposition left against medical advice (07) ==
LOC: HO.ED 05-24 01:46
PROVIDERS: Emergency Provider Emergency Medicine
DX: R05.9 Cough, unspecified (principal); Z20.822 Contact with and (suspected) exposure to COVID-19; R53.83 Other fatigue; R06.02 Shortness of breath
CPT/HCPCS: 80048; 85025; 87502; 87635; 99282; 99283

== ENCOUNTER 2022-06-04 08:49 | Outpatient (REF) | payer OTHER, SELFPAY ==
[2022-06-04 09:28] LABS: MANUAL DIFF FLAG NO
[2022-06-04 09:40] LABS: Basophils Percent Auto 0.4 % (0-2); Eosinophils Absolute Auto 0.3 X10*3/uL (0.0-0.4); Eosinophils Percent Auto 3.7 % (0-4); Hematocrit 41.7 % (37.0-47.0); Hemoglobin 13.1 g/dl (12.0-16.0); Imm Gran Abs Auto 0.04 X10*3/uL (0.00-0.03); Imm Gran Pct Auto 0.6 % (0.0-0.4); Lymphocytes Absolute Auto 1.9 X10*3/uL (1.2-4.9); Lymphocytes Percent Auto 26.2 % (20-40); Mean Corpuscular HGB Conc 31.4 g/dl (31.0-35.0); Mean Corpuscular Hemoglobin 27.8 pg (27.0-33.0); Mean Corpuscular Volume 88.3 fL (80.0-98.0); Monocytes Absolute Auto 0.5 X10*3/uL (0.1-1.2); Monocytes Percent Auto 6.5 % (2-11); Neutrophils Absolute Auto 4.4 x10*3/uL (2.0-8.3); Neutrophils Percent Auto 62.6 % (45-73); Platelet Count 390 X10*3/uL (160-400); Red Blood Count 4.72 X10*6/uL (4.20-5.50); Red Cell Distribution Width 16.2 % (11.0-16.0); White Blood Count 7.1 X10*3/uL (4.8-10.8)
[2022-06-04 09:42] LABS: Hematocrit 42.1 % (37.0-47.0); Hemoglobin 13.1 g/dl (12.0-16.0); Mean Corpuscular HGB Conc 31.1 g/dl (31.0-35.0); Mean Corpuscular Hemoglobin 27.6 pg (27.0-33.0); Mean Corpuscular Volume 88.8 fL (80.0-98.0); Mean Platelet Volume 8.7 fL (9.4-12.3); Platelet Count 362 X10*3/uL (160-400); Red Blood Count 4.74 X10*6/uL (4.20-5.50); Red Cell Distribution Width 16.1 % (11.0-16.0); White Blood Count 7.1 X10*3/uL (4.8-10.8)
[2022-06-04 10:16] LABS: Alanine Aminotransferase 18 U/L (0-31); Alkaline Phosphatase 98 U/L (39-117); Anion Gap 13 (12-20); Aspartate Amino Transferase 19 U/L (5-31); Bilirubin Total 0.2 mg/dL (0.0-1.0); Blood Urea Nitrogen 18 mg/dL (9-16); Calcium 10.3 mg/dL (8.4-10.2); Carbon Dioxide 23 mmol/L (22-29); Chloride 109 mmol/L (96-108); Estimated Glomerular Filt Rate 54; Glucose Random 91 mg/dL (60-115); Potassium 4.2 mmol/L (3.3-5.1); Sodium 141 mmol/L (135-145); Total Protein 6.8 g/dL (6.5-8.0)
[2022-06-04 10:30] LABS: Ferritin 18 ng/mL (10-250)
[2022-06-04 10:42] LABS: Anion Gap 14 (12-20); Blood Urea Nitrogen 19 mg/dL (9-16); Calcium 10.1 mg/dL (8.4-10.2); Carbon Dioxide 21 mmol/L (22-29); Chloride 109 mmol/L (96-108); Estimated Glomerular Filt Rate 59; Glucose Random 90 mg/dL (60-115); Potassium 4.3 mmol/L (3.3-5.1); Sodium 140 mmol/L (135-145)
[2022-06-04 10:58] LABS: Creatinine Urine 197.34 mg/dL; Protein/Creatinine Ratio, Ur 0.08 (<0.2); Total Protein Urine Random 15 mg/dL (<12)
[2022-06-06 14:26] LABS: IgA 135 mg/dL (47-310); IgG 720 mg/dL (600-1640); IgM 64 mg/dL (50-300)
== END 2022-06-04 08:50 | disposition home or self-care (01) ==
LOC: HO.LAB 08:49
PROVIDERS: Internal Medicine Medical Oncology; PCP Internal Medicine; Visit Provider Internal Medicine Hypertension Specialist
DX: I26.99 Other pulmonary embolism without acute cor pulmonale (principal); N18.31 Chronic kidney disease, stage 3a
CPT/HCPCS: 36415; 80048; 80053; 82728; 82784; 84156; 85025; 85027; 86334

== ENCOUNTER 2022-06-10 10:55 | Outpatient (REF) | payer OTHER, SELFPAY | END 2022-06-10 10:56 | disposition home or self-care (01) | LOC: HO.MDS 10:55 | PROVIDERS: Visit Provider Hospitalist | DX: D80.1 Nonfamilial hypogammaglobulinemia (principal) | CPT/HCPCS: 96365; 96366 ==

== ENCOUNTER 2022-06-12 13:41 | Emergency (ER) | payer OTHER, SELFPAY ==
--- NOTE | ~2022-06-12 | CT_ITS ---
EXAMINATION: CT ABDOMEN AND PELVIS WITHOUT CONTRAST CLINICAL INFORMATION: Abdominal pain COMPARISON: CT abdomen pelvis 11/17/2021 TECHNIQUE: Multidetector volumetric imaging was performed from the superior aspect of the liver through the pubic symphysis. Sagittal and coronal reformatted images were obtained on the technologist's workstation. This CT examination was performed using dose optimization techniques as appropriate, variously including the following: *Automated exposure control *Adjustment of mA and/or kV according to patient size (this includes techniques or standardized protocols for targeted exams where dose is matched to indication/reason for exam; i.e. extremities or head) *Use of iterative reconstruction technique DLP: 734 mGy-cm FINDINGS: LUNG BASES: Minimal left basilar atelectasis. Small sub-4 mm right middle lobe calcified granuloma. LIVER, GALLBLADDER, AND BILIARY TREE: The liver is normal in size, shape, and attenuation. No focal hepatic lesion or biliary ductal dilatation is present. Status post cholecystectomy. Surgical clips in the gallbladder fossa. PANCREAS: Unremarkable. SPLEEN: Unremarkable. ADRENAL GLANDS: Unremarkable. KIDNEYS AND URETERS: Low density simple appearing bilateral renal cysts, largest in the left upper pole measuring 3.3 cm, similar to prior. No renal calculi. No hydronephrosis. No perinephric collections or stranding. BLADDER: Unremarkable. GASTROINTESTINAL TRACT: Status post gastric bypass. No dilated bowel loops. No bowel wall thickening. Normal appendix. No ascites or free air. ABDOMINAL WALL: No significant hernia is appreciated. LYMPH NODES: No lymphadenopathy. VASCULAR: Normal caliber abdominal aorta. PELVIC VISCERA: Status post hysterectomy. No free pelvic fluid. OSSEOUS STRUCTURES: Geographic sclerosis at the anterior superior left femoral head characteristic of avascular necrosis. No articular surface collapse or fragmentation. Appearance is unchanged. L4 vertebral body hemangioma. No acute fracture. No suspicious osseous lesion. CT/CT abdomen pelvis wo con IMPRESSION: 1. No acute intra-abdominal process identified to explain the patient's abdominal pain. 2. Status post gastric bypass. 3. Similar appearance of small benign simple bilateral renal cysts.
[2022-06-12 15:43] VITALS: BP 122/56; PULSE 81; RESP 16; TEMP 35.9; O2SAT 99; BMI 34.3
[2022-06-12 19:14] LABS: MANUAL DIFF FLAG NO
[2022-06-12 19:15] LABS: Basophils Percent Auto 0.2 % (0-2); Eosinophils Absolute Auto 0.2 X10*3/uL (0.0-0.4); Eosinophils Percent Auto 2.5 % (0-4); Hematocrit 40.6 % (37.0-47.0); Hemoglobin 12.8 g/dl (12.0-16.0); Imm Gran Abs Auto 0.03 X10*3/uL (0.00-0.03); Imm Gran Pct Auto 0.4 % (0.0-0.4); Lymphocytes Absolute Auto 0.9 X10*3/uL (1.2-4.9); Mean Corpuscular HGB Conc 31.5 g/dl (31.0-35.0); Mean Corpuscular Hemoglobin 28.1 pg (27.0-33.0); Mean Platelet Volume 9.2 fL (9.4-12.3); Monocytes Absolute Auto 0.5 X10*3/uL (0.1-1.2); Monocytes Percent Auto 6.2 % (2-11); Neutrophils Absolute Auto 6.6 x10*3/uL (2.0-8.3); Neutrophils Percent Auto 79.7 % (45-73); Platelet Count 289 X10*3/uL (160-400); Red Blood Count 4.56 X10*6/uL (4.20-5.50); Red Cell Distribution Width 15.8 % (11.0-16.0); White Blood Count 8.3 X10*3/uL (4.8-10.8)
--- NOTE | 2022-06-12 19:27 | ED.GENADULT ---
HPI - General Adult General Chief complaint: Abdominal Pain Stated complaint: vomiting/headaches Time Seen by Provider: 06/12/22 19:27 Source: patient and service coordinator Mode of arrival: ambulatory Limitations: language barrier History of Present Illness HPI narrative: Patient is a 52 year old female presenting to the emergency department today with abdominal pain, vomiting, and diarrhea for the last 6 months. Patient states that she has had intermittent epigastric pain, nausea, vomiting, and diarrhea for the last 6 months. Patient states that she does not have a GI doctor. Patient denies any dizziness, lightheadedness, fever, chills, blurry vision, double vision, loss of vision, chest pain, difficulty breathing, shortness of breath, back pain, night sweats, pain with urination, increased urinary frequency, increased urinary urgency, blood in her urine or stool, syncope or a near syncopal episode, recent trauma or falls, bowel incontinence, bladder incontinence, bowel retention, bladder retention, or any other complaints at this time. Onset (ago): month(s) Location: abdomen Radiation: non-radiation Severity: mild Severity scale (1-10): 2 Quality: dull Pain Consistency: intermittent Relieving factors: none Exacerbating factors: none Associated symptoms: nausea/vomiting Treatments prior to arrival: none Related Data Home Medications Medication Instructions Recorded Confirmed montelukast 10 mg tablet 10 mg PO BEDTIME 08/02/20 01/19/22 cyanocobalamin (vitamin B-12) 1,000 mcg PO DAILY 11/05/20 01/19/22 1,000 mcg tablet hydroxyzine HCl 25 mg tablet 1 tab PO TID PRN Anxiety 12/12/20 01/19/22 cholecalciferol (vitamin D3) 25 25 mcg PO DAILY 03/19/21 01/19/22 mcg (1,000 unit) tablet losartan 100 mg tablet 1 tab PO DAILY 05/12/21 01/19/22 quetiapine 200 mg tablet 1 tab PO BEDTIME 10/12/21 01/19/22 umeclidinium 62.5 mcg-vilanterol 1 puff inhalation DAILY 10/12/21 01/19/22 25 mcg/actuation powdr for inhalation (Anoro Ellipta) omeprazole 20 mg capsule,delayed 1 cap PO DAILY 11/12/21 01/19/22 release zolpidem 10 mg tablet 1 tab PO BEDTIME PRN Insomnia 11/12/21 01/19/22 escitalopram oxalate 10 mg tablet 1 tab PO DAILY 11/13/21 01/19/22 dicyclomine 20 mg tablet 1 tab PO QID 01/19/22 01/19/22 prednisone 20 mg tablet mg PO 06/02/22 quetiapine 400 mg tablet 400 mg PO BEDTIME 06/02/22 tobramycin 0.3 %-dexamethasone 0.1 2 drp ophthalmic (eye) QID 06/02/22 % eye drops,suspension Previous Rx's Medication Instructions Recorded albuterol sulfate 90 mcg/actuation 1 inh inhalation QID PRN shortness 10/13/20 aerosol inhaler of breath or wheezing #18 grams ondansetron 4 mg disintegrating 4 mg PO TID PRN nausea and 05/23/21 tablet vomiting 5 days #10 tabs apixaban 5 mg tablet 5 mg PO BID 30 days #60 tabs 06/27/21 dnoreizjrx-znjqtgiwfhhvy-ofrcqkow 1 cap PO Q4H PRN pain #20 caps 08/08/21 50 mg-300 mg-40 mg capsule (Fioricet) alosetron 1 mg tablet (Lotronex) 1 mg PO BID 30 days #60 tabs 09/02/21 roflumilast 500 mcg tablet 500 mcg PO DAILY 30 days #30 tabs 11/03/21 (Daliresp) acetaminophen 500 mg tablet 500 mg PO Q6H PRN pain or fever 01/21/22 (Tylenol Extra Strength) #20 tabs cefuroxime axetil 250 mg tablet 250 mg PO BID 7 days #14 tabs 01/21/22 cyclobenzaprine 5 mg tablet 5 mg PO Q8H PRN pain (scale score 01/21/22 7-10) 5 days #14 tabs lidocaine 5 % topical patch 1 patch topical DAILY PRN pain #30 01/21/22 (Lidoderm) ea sucralfate 1 gram tablet 2 g PO DAILY #60 tabs 01/28/22 naloxone 4 mg/actuation nasal 4 mg intranasal Q2M PRN opioid 03/23/22 spray (Narcan) overdose #2 ea lorazepam 0.5 mg tablet 0.25 mg PO .QOD PRN anxiety 30 03/27/22 days #7 tabs gabapentin 300 mg capsule 600 mg PO BID 30 days #120 caps 04/03/22 (Neurontin) benzonatate 100 mg capsule 100 mg PO TID PRN cough #30 caps 04/16/22 miconazole nitrate 2 % topical 1 spray topical BID #133 grams 04/16/22 spray powder immune glob,gamm(IgG) 10 %-pro-IgA 40 g IV .QMonth #400 mL 05/27/22 0 to 50 mcg/mL intravenous solution (Privigen) oxycodone 5 mg tablet 5 mg PO TID PRN pain, severe 30 06/04/22 days #90 tabs benzonatate 200 mg capsule 200 mg PO TID PRN cough 30 days 06/11/22 #60 caps dextromethorphan-guaifenesin 5 10 ml PO Q4H PRN cough 14 days 06/11/22 mg-100 mg/5 mL oral liquid #355 mL doxycycline monohydrate 100 mg 100 mg PO BID 8 days #16 tabs 06/11/22 tablet nirmatrelvir 300 mg (150 mg See Rx Instructions PO .COMPLEX 5 06/11/22 x2)-ritonavir 100 mg tablet,dose days #30 ea pack(EUA) (Paxlovid) cephalexin 500 mg capsule 500 mg PO Q6H 7 days #28 caps 06/13/22 Allergies Allergy/AdvReac Type Severity Reaction Status Date / Time No Known Allergies Allergy Verified 06/11/22 11:35 Review of Systems Constitutional: Constitutional: Reports no additional constitutional complaints, Denies chills, Denies fever(s) and Denies night sweats Eyes: Eyes: Reports no additional eye complaints, Denies blurry vision, Denies change in vision, Denies diplopia, Denies eye discharge, Denies loss of vision and Denies eye pain ENT: Denies dizziness Cardiovascular: Cardiovascular: Reports no additional cardiovascular complaints, Denies chest pain, Denies lightheadedness, Denies Loss of Consciousness and Denies dyspnea Respiratory: Respiratory: Reports no additional respiratory complaints and Denies dyspnea Gastrointestinal: Gastrointestinal: Reports no additional gastrointestinal complaints, Reports abdominal pain, Denies melena, Denies hematochezia, Denies change in bowel habits, Denies change in stool character, Reports diarrhea, Reports nausea and Reports vomiting Genitourinary: Genitourinary: Denies hematuria, Denies urinary frequency, Denies dysuria, Denies urinary incontinence, Denies urinary hesitancy and Denies urinary urgency Musculoskeletal: Musculoskeletal: Reports no additional musculoskeletal complaints, Denies numbness and Denies tingling Neurologic: Denies dizziness, Denies loss of vision, Denies numbness and Denies tingling Psychiatric: Psychiatric: Reports no additional psychiatric complaints Endocrine: Endocrine: Reports no additional endocrine complaints Hematologic/Lymphatic: Hematologic/Lymphatic: Reports no additional hematologic/lymphatic complaints Allergic/Immunologic: Allergic/Immunologic: Reports no additional allergic/immunologic complaints [facility] Past Medical History Attestation statement: The following information was validated with the patient. Source: old records reviewed Medical History Anemia Arthritis Asthma Asthma exacerbation Asthma-COPD overlap syndrome Back pain Bronchitis Chronic pain syndrome Complex regional pain syndrome i of left lower limb Cough Depression Diabetic neuropathy Diet-controlled diabetes mellitus Disc degeneration, lumbosacral Dizziness Elevated lactic acid level Essential hypertension Fibromyalgia Headache Headache, migraine Hypogammaglobulinemia Hypothyroidism Laryngotracheitis Low back pain Morbid obesity Nausea vomiting and diarrhea BABATUNDE (obstructive sleep apnea) Osteoporosis Pleuritic chest pain 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 Pulmonary embolism Sleep apnea Spondylosis of cervical spine 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 TIA (transient ischemic attack) Type 2 diabetes mellitus with unspecified complications Surgical History History of bariatric surgery History of cholecystectomy History of esophagogastroduodenoscopy (EGD) Hx of colonoscopy S/P total abdominal hysterectomy Family History Family History Mother Diabetes Stroke Family/Other Diabetes Father Diabetes Social History Social History Household Members: Significant Other Housing: House Do you presently have visiting nurse or other home services: No Alcohol intake: never Patient Tobacco Use Status: Never used Tobacco e-Cigarette/Vaping Use: Never Used Advance Directives: No Advance Directives Information Provided: Yes Advance Directives Date on File: 05/23/21 service: No Current occupational status: unemployed and disabled Physical Exam ED Vital Signs: Vital Signs - 24 hr 06/12/22 15:43 06/12/22 19:28 06/12/22 20:43 Temperature 96.7 F L 99.9 F 98.8 F Pulse Rate 81 72 67 Respiratory Rate 16 16 18 Blood Pressure 122/56 L 128/71 129/52 L Pulse Oximetry 99 99 97 Oxygen Delivery Method Room Air Room Air Room Air BMI result Body Mass Index 34.3 Const General: cooperative, no acute distress, alert and awake Nutritional Appearance: well nourished Orientation/consciousness: patient oriented x3 Limitations: no limitations HENMT Head: Yes normal to inspection and Yes atraumatic Ears: hearing grossly normal bilaterally and external ears normal General nose exam: Normal external nose present, no nasal discharge noted and no epistaxis Face and sinus: Yes normal facial exam, No abrasion and No laceration Mouth: Normal oral and palatal mucosa present, no drooling and no muffled voice Eyes General: appearance normal, both eyes and all related structures Periorbital: periorbital findings normal Eyelids: Yes eyelids normal Conjunctivae: conjunctivae normal Pupils: Equal, round and reactive pupils present EOM: EOMs intact bilaterally Neck Neck: Yes normal visual inspection, Yes full ROM and Yes no lymphadenopathy Chest Chest palpation & inspection: normal inspection of the chest Resp Effort & Inspection: normal respiratory effort and able to speak in complete sentences Auscultation: clear to auscultation bilaterally Cardio Rate: regular rate Rhythm: regular rhythm GI Inspection: Yes normal to inspection Palpation (GI): Soft to palpation, not firm, nontender, no guarding and not rigid Neuro General: patient oriented x3 and moves all extremities Cranial nerves: Yes Equal, round and reactive pupils present Cognition (Neuro): normal cognition Motor exam (neuro): 5/5 motor strength present throughout Sensory Exam: Normal double simultaneous stimulation for sensation Coordination: [id number] test normal Extrem General: Yes normal to inspection, Yes full ROM and Yes capillary refill normal Psych Appearance: grossly normal Mental Status: mental status grossly normal Affect: normal affect Attitude: cooperative Thought process: Normal thought process present Thought content: Normal thought content present Insight: Good insight present (Psych) Medical Decision Making MDM Narrative Medical decision making narrative: Patient is a 52 year old female presenting to the emergency department today with abdominal pain, nausea, and diarrhea x6 months. Patient's physical exam was unremarkable. Patient's blood work was unremarkable. Patient's urine showed a urinary tract infection. Patient's abdominal CT showed no acute process. I explained my physical exam findings as well as all test results to the patient. I answered all questions asked by the patient. Patient received IV Morphine and fluids which she stated helped her symptoms significantly. I stressed the importance of the patient taking her medication as prescribed. I stressed the importance of the patient following up with her primary care provider and a GI provider. I stressed the importance of the patient returning to the emergency department immediately if her symptoms were to worsen or if she were to develop any dizziness, shortness of breath, difficulty breathing, chest pain, blurry vision, loss of vision, nausea, vomiting, abdominal pain, fever, chills, back pain, or any other complaints. Patient verbalized agreement and understanding with this treatment plan and discharge. Differential Diagnosis Differential Diagnosis: UTI, abdominal pain Medical Records Medical records reviewed: Yes I reviewed the patient's medical records. Lab Data Lab results reviewed: Yes I reviewed the patient's lab results. Result diagrams: 06/12/22 18:54 06/12/22 18:54 Labs: Lab Results 06/12/22 06/12/22 06/12/22 Range/Units 18:54 18:54 18:54 WBC 8.3 (4.8-10.8) X10*3/uL RBC 4.56 (4.20-5.50) X10*6/uL Hgb 12.8 (12.0-16.0) g/dl Hct 40.6 (37.0-47.0) % MCV 89.0 (80.0-98.0) fL MCH 28.1 (27.0-33.0) pg MCHC 31.5 (31.0-35.0) g/dl RDW 15.8 (11.0-16.0) % Plt Count 289 (160-400) X10*3/uL MPV 9.2 L (9.4-12.3) fL Immature Gran % (Auto) 0.4 (0.0-0.4) % Neut % (Auto) 79.7 H (45-73) % Lymph % (Auto) 11.0 L (20-40) % Roosevelt % (Auto) 6.2 (2-11) % Eos % (Auto) 2.5 (0-4) % Baso % (Auto) 0.2 (0-2) % Lymph # (Auto) 0.9 L (1.2-4.9) X10*3/uL Roosevelt # (Auto) 0.5 (0.1-1.2) X10*3/uL Eos # (Auto) 0.2 (0.0-0.4) X10*3/uL Baso # (Auto) 0.0 (0.0-0.2) X10*3/uL Abs Immat Gran (auto) 0.03 (0.00-0.03) X10*3/uL Absolute Neuts (auto) 6.6 (2.0-8.3) x10*3/uL Absolute Nucleated RBC 0.000 (0.0-0.012) X10*3/uL Nucleated RBC % (auto) 0.0 (0.0-0.2) /100WBC Sodium 141 (135-145) mmol/L Potassium 4.5 (3.3-5.1) mmol/L Chloride 106 (96-108) mmol/L Carbon Dioxide 23 (22-29) mmol/L Anion Gap 17 (12-20) BUN 17 H (9-16) mg/dL Creatinine 1.13 (0.5-1.4) mg/dL Estim Creat Clear Calc 51.5 Estimated GFR 50 Random Glucose 101 (60-115) mg/dL Calcium 10.2 (8.4-10.2) mg/dL Total Bilirubin 0.2 (0.0-1.0) mg/dL AST 41 H D (5-31) U/L ALT 29 (0-31) U/L Alkaline Phosphatase 117 (39-117) U/L Troponin I High Sens < 3.5 (<3.5-17.0) ng/L Total Protein 7.8 (6.5-8.0) g/dL Albumin 3.9 (3.5-5.0) g/dL Lipase 20 (8-78) U/L Urine Color Urine Appearance Urine pH (5.0-8.0) Ur Specific Holbrook (1.005-1.025) Urine Protein (NEG-TRACE) MG/DL Urine Glucose (UA) (NEG) MG/DL Urine Ketones (NEG) MG/DL Urine Blood (NEG) Urine Nitrite (NEG) Ur Leukocyte Esterase (NEG) Urine RBC (0) /HPF Urine WBC (0-4) /HPF Ur Squamous Epith Cells /LPF Urine Bacteria /LPF Urine Mucus /LPF COVID-19 ([facility]) (Negative) COVID-19 Clin Com 06/12/22 06/13/22 Range/Units 20:05 01:43 WBC (4.8-10.8) X10*3/uL RBC (4.20-5.50) X10*6/uL Hgb (12.0-16.0) g/dl Hct (37.0-47.0) % MCV (80.0-98.0) fL MCH (27.0-33.0) pg MCHC (31.0-35.0) g/dl RDW (11.0-16.0) % Plt Count (160-400) X10*3/uL MPV (9.4-12.3) fL Immature Gran % (Auto) (0.0-0.4) % Neut % (Auto) (45-73) % Lymph % (Auto) (20-40) % Roosevelt % (Auto) (2-11) % Eos % (Auto) (0-4) % Baso % (Auto) (0-2) % Lymph # (Auto) (1.2-4.9) X10*3/uL Roosevelt # (Auto) (0.1-1.2) X10*3/uL Eos # (Auto) (0.0-0.4) X10*3/uL Baso # (Auto) (0.0-0.2) X10*3/uL Abs Immat Gran (auto) (0.00-0.03) X10*3/uL Absolute Neuts (auto) (2.0-8.3) x10*3/uL Absolute Nucleated RBC (0.0-0.012) X10*3/uL Nucleated RBC % (auto) (0.0-0.2) /100WBC Sodium (135-145) mmol/L Potassium (3.3-5.1) mmol/L Chloride (96-108) mmol/L Carbon Dioxide (22-29) mmol/L Anion Gap (12-20) BUN (9-16) mg/dL Creatinine (0.5-1.4) mg/dL Estim Creat Clear Calc Estimated GFR Random Glucose (60-115) mg/dL Calcium (8.4-10.2) mg/dL Total Bilirubin (0.0-1.0) mg/dL AST (5-31) U/L ALT (0-31) U/L Alkaline Phosphatase (39-117) U/L Troponin I High Sens (<3.5-17.0) ng/L Total Protein (6.5-8.0) g/dL Albumin (3.5-5.0) g/dL Lipase (8-78) U/L Urine Color YELLOW Urine Appearance CLEAR Urine pH 6.0 (5.0-8.0) Ur Specific [place]brook >= 1.030 H (1.005-1.025) Urine Protein NEG (NEG-TRACE) MG/DL Urine Glucose (UA) NEG (NEG) MG/DL Urine Ketones NEG (NEG) MG/DL Urine Blood NEG (NEG) Urine Nitrite NEG (NEG) Ur Leukocyte Esterase 1+ H (NEG) Urine RBC 0 (0) /HPF Urine WBC 10-14 H (0-4) /HPF Ur Squamous Epith Cells 2+ /LPF Urine Bacteria TRACE /LPF Urine Mucus 1+ /LPF COVID-19 ([facility]ERTO) Negative (Negative) COVID-19 Clin Com See Note Imaging Data CT scan - abdomen: Attestation: I personally reviewed and interpreted this imaging study as follows: My impression: No acute process. Radiologist's impression: EXAMINATION: CT ABDOMEN AND PELVIS WITHOUT CONTRAST? CLINICAL INFORMATION: Abdominal pain? COMPARISON: CT abdomen pelvis 11/17/2021? TECHNIQUE: Multidetector volumetric imaging was performed from the superior aspect of the liver through the pubic symphysis. Sagittal and coronal reformatted images were obtained on the technologist's workstation.? This CT examination was performed using dose optimization techniques as appropriate, variously including the following: *Automated exposure control *Adjustment of mA and/or kV according to patient size (this includes techniques or standardized protocols for targeted exams where dose is matched to indication/reason for exam; i.e. extremities or head) *Use of iterative reconstruction technique DLP: 734 mGy-cm FINDINGS: LUNG BASES: Minimal left basilar atelectasis. Small sub-4 mm right middle lobe calcified granuloma.? LIVER, GALLBLADDER, AND BILIARY TREE: The liver is normal in size, shape, and attenuation. No focal hepatic lesion or biliary ductal dilatation is present. Status post cholecystectomy. Surgical clips in the gallbladder fossa.? PANCREAS: Unremarkable.? SPLEEN: Unremarkable.? ADRENAL GLANDS: Unremarkable.? KIDNEYS AND URETERS: Low density simple appearing bilateral renal cysts, largest in the left upper pole measuring 3.3 cm, similar to prior. No renal calculi. No hydronephrosis. No perinephric collections or stranding.? BLADDER: Unremarkable.? GASTROINTESTINAL TRACT: Status post gastric bypass. No dilated bowel loops. No bowel wall thickening. Normal appendix. No ascites or free air.? ABDOMINAL WALL: No significant hernia is appreciated.? LYMPH NODES: No lymphadenopathy. VASCULAR: Normal caliber abdominal aorta. PELVIC VISCERA: Status post hysterectomy. No free pelvic fluid.? OSSEOUS STRUCTURES: Geographic sclerosis at the anterior superior left femoral head characteristic of avascular necrosis. No articular surface collapse or fragmentation. Appearance is unchanged. L4 vertebral body hemangioma. No acute fracture. No suspicious osseous lesion.? CT/CT abdomen pelvis wo con IMPRESSION: ? 1. No acute intra-abdominal process identified to explain the patient's abdominal pain. 2. Status post gastric bypass. 3. Similar appearance of small benign simple bilateral renal cysts.? ? Dictated By: Lucio Johns Signed By: Electronically signed by Lucio?Andreas 06/12/22 1303 Discharge Plan Discharge Clinical Impression: Abdominal pain, Urinary tract infection Patient Disposition: Home, Self-Care Instructions: Urinary Tract Infection in Women (ED), Abdominal Pain (ED) Additional Instructions: Follow up with your primary care provider. Return to the emergency department immediately if your symptoms worsen or if you develop any dizziness, shortness of breath, difficulty breathing, chest pain, blurry vision, loss of vision, nausea, vomiting, abdominal pain, fever, chills, back pain, or any other complaints. Prescriptions: New cephalexin 500 mg capsule 500 mg PO Q6H 7 Days Qty: 28 0RF No Action sucralfate 1 gram tablet 2 g PO DAILY Qty: 60 2RF naloxone [Narcan] 4 mg/actuation spray,non-aerosol 4 mg intranasal Q2M PRN (Reason: opioid overdose) Qty: 2 0RF Rx Instructions: spray 1 dose into ONE nostril; alternate nostrils w each dose until help arrives lorazepam 0.5 mg tablet 0.25 mg PO .QOD PRN (Reason: anxiety) 30 Days Qty: 7 0RF Rx Instructions: decreasing the dose of lorazepam. TAKE HALF A PILL OF THE MEDICATION EVERY OTHER DAY. gabapentin [Neurontin] 300 mg capsule 600 mg PO BID 30 Days Qty: 120 11RF Privigen 10 % solution 40 g IV .QMonth Qty: 400 10RF oxycodone 5 mg tablet 5 mg PO TID PRN (Reason: pain, severe) 30 Days Qty: 90 0RF Rx Instructions: Do not take within 2 hours of HS. hydroxyzine HCl 25 mg tablet 1 tab PO TID PRN (Reason: Anxiety) ondansetron 4 mg tablet,disintegrating 4 mg PO TID PRN (Reason: nausea and vomiting) 5 Days Qty: 10 0RF montelukast 10 mg tablet 10 mg PO BEDTIME albuterol sulfate 90 mcg/actuation HFA aerosol inhaler 1 inh inhalation QID PRN (Reason: shortness of breath or wheezing) Qty: 18 0RF losartan 100 mg tablet 1 tab PO DAILY wwaedrumag-oyemjuykvhilv-cnsa [Fioricet] 50-300-40 mg capsule 1 cap PO Q4H PRN (Reason: pain) Qty: 20 0RF quetiapine 200 mg tablet 1 tab PO BEDTIME Anoro Ellipta 62.5-25 mcg/actuation blister with device 1 puff inhalation DAILY dicyclomine 20 mg tablet 1 tab PO QID cefuroxime axetil 250 mg tablet 250 mg PO BID 7 Days Qty: 14 0RF acetaminophen [Tylenol Extra Strength] 500 mg tablet 500 mg PO Q6H PRN (Reason: pain or fever) Qty: 20 0RF lidocaine [Lidoderm] 5 % adhesive patch,medicated 1 patch topical DAILY MDD remove after 12 hours PRN (Reason: pain) Qty: 30 0RF Rx Instructions: leave on most painful area for up to 12 hrs cyclobenzaprine 5 mg tablet 5 mg PO Q8H PRN (Reason: pain (scale score 7-10)) 5 Days Qty: 14 0RF omeprazole 20 mg capsule,delayed release(DR/EC) 1 cap PO DAILY zolpidem 10 mg tablet 1 tab PO BEDTIME PRN (Reason: Insomnia) escitalopram oxalate 10 mg tablet 1 tab PO DAILY miconazole nitrate 2 % aerosol powder 1 spray topical BID Qty: 133 0RF benzonatate 100 mg capsule 100 mg PO TID PRN (Reason: cough) Qty: 30 0RF cholecalciferol (vitamin D3) 25 mcg (1,000 unit) tablet 25 mcg PO DAILY apixaban 5 mg tablet 5 mg PO BID 30 Days Qty: 60 6RF cyanocobalamin (vitamin B-12) 1,000 mcg tablet 1,000 mcg PO DAILY alosetron [Lotronex] 1 mg tablet 1 mg PO BID 30 Days Qty: 60 6RF tobramycin-dexamethasone 0.3-0.1 % drops,suspension 2 drp ophthalmic (eye) QID prednisone 20 mg tablet PO quetiapine 400 mg tablet 400 mg PO BEDTIME Daliresp 500 mcg tablet 500 mcg PO DAILY 30 Days Qty: 30 12RF Paxlovid (EUA) 300 mg (150 mg x 2)-100 mg tablets,dose pack See Rx Instructions PO .COMPLEX 5 Days Qty: 30 0RF Rx Instructions: take TWO 150 mg tablets of nirmatrelvir with ONE 100 mg tablet of ritonavir twice daily for 5 days PO benzonatate 200 mg capsule 200 mg PO TID PRN (Reason: cough) 30 Days Qty: 60 3RF doxycycline monohydrate 100 mg tablet 100 mg PO BID 8 Days Qty: 16 0RF dextromethorphan-guaifenesin 5-100 mg/5 mL liquid 10 ml PO Q4H PRN (Reason: cough) 14 Days Qty: 355 6RF Referrals: Claudia Villatoro MD [Primary Care Provider] - (Call to follow up with your PCP. ) [facility] [Provider Group] Interventions: ED Discharge Assessment Last Done: 06/13/22 02:10 Discharge Date/Time: 06/13/22 02:14 Print Language: Hebrew
[2022-06-12 19:28] VITALS: BP 128/71; PULSE 72; RESP 16; TEMP 37.7; O2SAT 99
[2022-06-12 19:34] LABS: Troponin-I High Sensitivity < 3.5 ng/L (<3.5-17.0)
--- NOTE | 2022-06-12 19:40 | ECG_ITS ---
Test Reason : ABDOMINAL PAIN Blood Pressure : / mmHG Vent. Rate : 067 BPM Atrial Rate : 067 BPM P-R Int : 130 ms QRS Dur : 090 ms QT Int : 408 ms P-R-T Axes : 046 013 016 degrees QTc Int : 431 ms Normal sinus rhythm Normal ECG No significant changes when compared with the previous EKG of 21 january 2022 Referred By: Celeste Irwin Electronically Signed By:ISIDORO MORALES
[2022-06-12] MEDS: 0.9 % Sodium Chloride 500 ML IV (20:10)
[2022-06-12] MEDS: Pantoprazole Sodium 40 MG/10 ML VIAL IVPUSH (20:15)
[2022-06-12] MEDS: ondansetron HCL 4 MG/2 ML VIAL IVPUSH (20:15)
[2022-06-12] MEDS: Magnesium Hydrox/Alum Hydrox 30 ML ORAL.SUSP 15 ML PO (20:15)
[2022-06-12 20:43] VITALS: BP 129/52; PULSE 67; RESP 18; TEMP 37.1; O2SAT 97
[2022-06-12 20:43] LABS: COVID-19 Test Negative (Negative); IDNOW Serial# 16C4AD1C
[2022-06-12] MEDS: Morphine Sulfate 4 MG/ML CARTRIDGE IVPUSH (21:43)
[2022-06-12 21:54] LABS: Alanine Aminotransferase 29 U/L (0-31); Albumin Level 3.9 g/dL (3.5-5.0); Alkaline Phosphatase 117 U/L (39-117); Anion Gap 17 (12-20); Aspartate Amino Transferase 41 U/L (5-31); Bilirubin Total 0.2 mg/dL (0.0-1.0); Blood Urea Nitrogen 17 mg/dL (9-16); Calcium 10.2 mg/dL (8.4-10.2); Carbon Dioxide 23 mmol/L (22-29); Chloride 106 mmol/L (96-108); Creatinine Clr Calc Pharmacy 51.5; Estimated Glomerular Filt Rate 50; Glucose Random 101 mg/dL (60-115); Lipase 20 U/L (8-78); Potassium 4.5 mmol/L (3.3-5.1); Sodium 141 mmol/L (135-145); Total Protein 7.8 g/dL (6.5-8.0)
[2022-06-13] MEDS: 0.9 % Sodium Chloride 1,000 ML 999 ML IV (00:12)
[2022-06-13 01:49] LABS: Appearance Urine CLEAR; Color Urine YELLOW; Glucose Urine UA NEG (NEG); Leukocyte Esterase Urine 1+ (NEG); Nitrite Urine NEG (NEG); Specific Gravity - Urine >= 1.030 (1.005-1.025); UACC Culture Trigger YES; Urine Blood NEG (NEG); Urine Ketones NEG (NEG); Urine Protein NEG (NEG-TRACE)
[2022-06-13 01:55] LABS: Bacteria Urine TRACE /LPF; RBC Urine 0 /HPF (0); Squamous Epithelial Cell Urine 2+ /LPF
[2022-06-13 01:56] LABS: Mucus Urine 1+ /LPF
== END 2022-06-13 02:14 | disposition home or self-care (01) ==
PROVIDERS: Physician Assistant Medical; Emergency Provider Emergency Medicine Emergency Medical Services; PCP Internal Medicine
DX: N39.0 Urinary tract infection, site not specified (principal); R10.9 Unspecified abdominal pain; Z20.822 Contact with and (suspected) exposure to COVID-19
CPT/HCPCS: 36415; 74176; 80053; 81001; 83690; 84484; 85025; 87086; 87635; 93005; 96361; 96374; 96375; 99284; 99285; J2270; J2405

== ENCOUNTER → 2022-06-16 08:50 | Outpatient (BNVA) | payer OTHER, SELFPAY | PROVIDERS: PCP Internal Medicine; Visit Provider Internal Medicine | DX: K58.0 Irritable bowel syndrome with diarrhea (principal); R10.9 Unspecified abdominal pain; Z98.84 Bariatric surgery status | CPT/HCPCS: 99212 ==

== ENCOUNTER 2022-06-27 01:04 | Emergency (ER) | payer OTHER, SELFPAY ==
[2022-06-27 01:26] VITALS: BP 155/80; PULSE 66; RESP 16; TEMP 36.9; O2SAT 98; BMI 34.3
[2022-06-27 01:47] VITALS: BP 127/65; PULSE 67; RESP 16; TEMP 36.8; O2SAT 98
[2022-06-27 02:12] LABS: Hematocrit 37.6 % (37.0-47.0); Hemoglobin 12.1 g/dl (12.0-16.0); Mean Corpuscular HGB Conc 32.2 g/dl (31.0-35.0); Mean Corpuscular Hemoglobin 27.8 pg (27.0-33.0); Mean Corpuscular Volume 86.2 fL (80.0-98.0); Platelet Count 334 X10*3/uL (160-400); Red Blood Count 4.36 X10*6/uL (4.20-5.50); Red Cell Distribution Width 15.6 % (11.0-16.0); White Blood Count 8.4 X10*3/uL (4.8-10.8)
[2022-06-27 02:30] LABS: Alanine Aminotransferase 25 U/L (0-31); Albumin Level 3.7 g/dL (3.5-5.0); Alkaline Phosphatase 103 U/L (39-117); Anion Gap 14 (12-20); Aspartate Amino Transferase 27 U/L (5-31); Bilirubin Total 0.2 mg/dL (0.0-1.0); Blood Urea Nitrogen 18 mg/dL (9-16); Calcium 9.4 mg/dL (8.4-10.2); Carbon Dioxide 23 mmol/L (22-29); Chloride 106 mmol/L (96-108); Creatinine Clr Calc Pharmacy 58.2; Estimated Glomerular Filt Rate 58; Glucose Random 146 mg/dL (60-115); Potassium 4.3 mmol/L (3.3-5.1); Sodium 139 mmol/L (135-145); Total Protein 6.6 g/dL (6.5-8.0)
--- NOTE | 2022-06-27 02:43 | ED_ITS ---
HPI - Abdominal Pain General Chief Complaint: Abdominal Pain Stated Complaint: pain Time Seen by Provider: 06/27/22 02:43 Source: patient Mode of arrival: ambulatory Limitations: no limitations History of Present Illness HPI narrative: Patient with chronic abdominal pain comes in for abdominal pain started earlier today no nausea no vomiting no diarrhea patient knows chronic oxycodone treatment states not helping her patient had multiple CT scans for similar pain which were negative last CT scan was 3 weeks ago no nausea no vomiting no diarrhea no fever or chills no urinary symptoms Related Data Home Medications Medication Instructions Recorded Confirmed montelukast 10 mg tablet 10 mg PO BEDTIME 08/02/20 06/16/22 cyanocobalamin (vitamin B-12) 1,000 mcg PO DAILY 11/05/20 06/16/22 1,000 mcg tablet hydroxyzine HCl 25 mg tablet 1 tab PO TID PRN Anxiety 12/12/20 06/16/22 cholecalciferol (vitamin D3) 25 25 mcg PO DAILY 03/19/21 06/16/22 mcg (1,000 unit) tablet losartan 100 mg tablet 1 tab PO DAILY 05/12/21 06/16/22 umeclidinium 62.5 mcg-vilanterol 1 puff inhalation DAILY 10/12/21 06/16/22 25 mcg/actuation powdr for inhalation (Anoro Ellipta) zolpidem 10 mg tablet 1 tab PO BEDTIME PRN Insomnia 11/12/21 06/16/22 escitalopram oxalate 10 mg tablet 1 tab PO DAILY 11/13/21 06/16/22 prednisone 20 mg tablet mg PO 06/02/22 06/16/22 quetiapine 400 mg tablet 400 mg PO BEDTIME 06/02/22 06/16/22 tobramycin 0.3 %-dexamethasone 0.1 2 drp ophthalmic (eye) QID 06/02/22 06/16/22 % eye drops,suspension Previous Rx's Medication Instructions Recorded albuterol sulfate 90 mcg/actuation 1 inh inhalation QID PRN shortness 10/13/20 aerosol inhaler of breath or wheezing #18 grams ondansetron 4 mg disintegrating 4 mg PO TID PRN nausea and 05/23/21 tablet vomiting 5 days #10 tabs apixaban 5 mg tablet 5 mg PO BID 30 days #60 tabs 06/27/21 [id number]-smnhscqxizokf-owdpbybv 1 cap PO Q4H PRN pain #20 caps 08/08/21 50 mg-300 mg-40 mg capsule (Fioricet) roflumilast 500 mcg tablet 500 mcg PO DAILY 30 days #30 tabs 11/03/21 (Daliresp) acetaminophen 500 mg tablet 500 mg PO Q6H PRN pain or fever 01/21/22 (Tylenol Extra Strength) #20 tabs cyclobenzaprine 5 mg tablet 5 mg PO Q8H PRN pain (scale score 01/21/22 7-10) 5 days #14 tabs lidocaine 5 % topical patch 1 patch topical DAILY PRN pain #30 01/21/22 (Lidoderm) ea naloxone 4 mg/actuation nasal 4 mg intranasal Q2M PRN opioid 03/23/22 spray (Narcan) overdose #2 ea lorazepam 0.5 mg tablet 0.25 mg PO .QOD PRN anxiety 30 03/27/22 days #7 tabs gabapentin 300 mg capsule 600 mg PO BID 30 days #120 caps 04/03/22 (Neurontin) benzonatate 100 mg capsule 100 mg PO TID PRN cough #30 caps 04/16/22 miconazole nitrate 2 % topical 1 spray topical BID #133 grams 04/16/22 spray powder immune glob,gamm(IgG) 10 %-pro-IgA 40 g IV .QMonth #400 mL 05/27/22 0 to 50 mcg/mL intravenous solution (Privigen) oxycodone 5 mg tablet 5 mg PO TID PRN pain, severe 30 06/04/22 days #90 tabs benzonatate 200 mg capsule 200 mg PO TID PRN cough 30 days 06/11/22 #60 caps dextromethorphan-guaifenesin 5 10 ml PO Q4H PRN cough 14 days 06/11/22 mg-100 mg/5 mL oral liquid #355 mL doxycycline monohydrate 100 mg 100 mg PO BID 8 days #16 tabs 06/11/22 tablet nirmatrelvir 300 mg (150 mg See Rx Instructions PO .COMPLEX 5 06/11/22 x2)-ritonavir 100 mg tablet,dose days #30 ea pack(EUA) (Paxlovid) cephalexin 500 mg capsule 500 mg PO Q6H 7 days #28 caps 06/13/22 loperamide 2 mg capsule 2 mg PO Q6H PRN loose stool 2 06/16/22 (Anti-Diarrheal (loperamide)) weeks #60 caps pantoprazole 40 mg tablet,delayed 40 mg PO BID 2 weeks #28 tabs 06/16/22 release psyllium husk 3.4 gram/5.4 gram 1 tbsp PO BID 30 days #660 grams 06/16/22 oral powder (Metamucil) dicyclomine 20 mg tablet 20 mg PO QID PRN abdominal pain 06/27/22 #20 tabs Allergies Allergy/AdvReac Type Severity Reaction Status Date / Time No Known Allergies Allergy Verified 06/16/22 09:07 Review of Systems Review of Systems Yes all other systems are reviewed and are negative FOR[facility]LY [facility] Past Medical History Medical History Anemia Arthritis Asthma Asthma exacerbation Asthma-COPD overlap syndrome Back pain Bronchitis Chronic pain syndrome Complex regional pain syndrome i of left lower limb Cough Depression Diabetic neuropathy Diet-controlled diabetes mellitus Disc degeneration, lumbosacral Dizziness Elevated lactic acid level Essential hypertension Fibromyalgia Headache Headache, migraine Hypogammaglobulinemia Hypothyroidism Laryngotracheitis Low back pain Morbid obesity Nausea vomiting and diarrhea BABATUNDE (obstructive sleep apnea) Osteoporosis Pleuritic chest pain 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 Pulmonary embolism Sleep apnea Spondylosis of cervical spine 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 TIA (transient ischemic attack) Type 2 diabetes mellitus with unspecified complications Surgical History History of bariatric surgery History of cholecystectomy History of esophagogastroduodenoscopy (EGD) Hx of colonoscopy S/P total abdominal hysterectomy Family History Family History Mother Diabetes Stroke Family/Other Diabetes Father Diabetes Social History Social History Household Members: Significant Other Housing: House Do you presently have visiting nurse or other home services: No Alcohol intake: never Patient Tobacco Use Status: Never used Tobacco e-Cigarette/Vaping Use: Never Used Advance Directives: No Advance Directives Information Provided: No Advance Directives Date on File: 05/23/21 service: No Current occupational status: unemployed and disabled Physical Exam ED Vital Signs: Vital Signs - 24 hr 06/27/22 01:26 06/27/22 01:47 06/27/22 03:54 Temperature 98.4 F 98.2 F Pulse Rate 66 67 Respiratory Rate 16 16 16 Blood Pressure 155/80 H 127/65 Pulse Oximetry 98 98 Oxygen Delivery Method Room Air Room Air 06/27/22 04:00 Temperature 98.1 F Pulse Rate 56 Respiratory Rate 16 Blood Pressure 124/48 L Pulse Oximetry 96 Oxygen Delivery Method Room Air BMI result Body Mass Index 34.3 Appearance: Alert. Oriented X3. Anxious Eyes: PERRLA, No Nystagmus ENT: Pharynx normal. Oral Mucosa moist Neck: Normal inspection. Neck supple. CVS: Normal heart rate and rhythm. Pulses normal. Respiratory: No respiratory distress. Equal air entry bilateral, no wheezing/rales/rhonchi Abdomen: Soft , diffuse tenderness, Bowel sounds are present, no mass palpable, no CVA tenderness Skin: Skin warm and dry. Normal skin color. Normal skin turgor. Extremities: No lower extremity edema. No calf tenderness Neuro: Oriented X 3. MDM - Abdominal Pain MDM Narrative Medical decision making narrative: Patient chronic abdominal pain with multiple cat scan negative follows with GI likely has IBS discharge patient on dicyclomine Lab Data Attestation: I reviewed the patient's lab results. Result diagrams: 06/27/22 02:06 06/27/22 02:06 Labs: Lab Results 06/27/22 06/27/22 06/27/22 Range/Units 02:06 02:06 02:55 WBC 8.4 (4.8-10.8) X10*3/uL RBC 4.36 (4.20-5.50) X10*6/uL Hgb 12.1 (12.0-16.0) g/dl Hct 37.6 (37.0-47.0) % MCV 86.2 (80.0-98.0) fL MCH 27.8 (27.0-33.0) pg MCHC 32.2 (31.0-35.0) g/dl RDW 15.6 (11.0-16.0) % Plt Count 334 (160-400) X10*3/uL MPV 9.0 L (9.4-12.3) fL Absolute Nucleated RBC 0.000 (0.0-0.012) X10*3/uL Nucleated RBC % (auto) 0.0 (0.0-0.2) /100WBC Sodium 139 (135-145) mmol/L Potassium 4.3 (3.3-5.1) mmol/L Chloride 106 (96-108) mmol/L Carbon Dioxide 23 (22-29) mmol/L Anion Gap 14 (12-20) BUN 18 H (9-16) mg/dL Creatinine 1.00 (0.5-1.4) mg/dL Estim Creat Clear Calc 58.2 Estimated GFR 58 Random Glucose 146 H (60-115) mg/dL Calcium 9.4 D (8.4-10.2) mg/dL Total Bilirubin 0.2 (0.0-1.0) mg/dL AST 27 (5-31) U/L ALT 25 (0-31) U/L Alkaline Phosphatase 103 (39-117) U/L Total Protein 6.6 (6.5-8.0) g/dL Albumin 3.7 (3.5-5.0) g/dL Urine Color Yellow Urine Appearance Clear Urine pH 5.5 (5.0-8.0) Ur Specific [place] 1.025 (1.005-1.025) Urine Protein Negative (Neg-Trace) mg/dL Urine Glucose (UA) Negative (Negative) mg/dL Urine Ketones Negative (Negative) mg/dL Urine Blood Negative (Negative) Urine Nitrite Negative (Negative) Ur Leukocyte Esterase Trace H (Negative) Urine RBC 0-2 (0-2) /HPF Urine WBC 0-5 (0-5) /HPF Ur Squamous Epith Cells 0-2 (0-2) /HPF Urine Bacteria None Seen (None Seen) Hyaline Casts 0-2 (0-2) /LPF Discharge Plan Discharge Clinical Impression: Abdominal pain, chronic, generalized Patient Disposition: Home, Self-Care Instructions: Abdominal Pain (ED) Additional Instructions: Follow-up with extension service agent Continue medication as prescribed by her PCP Prescriptions: New dicyclomine 20 mg tablet 20 mg PO QID PRN (Reason: abdominal pain) Qty: 20 0RF No Action naloxone [Narcan] 4 mg/actuation spray,non-aerosol 4 mg intranasal Q2M PRN (Reason: opioid overdose) Qty: 2 0RF Rx Instructions: spray 1 dose into ONE nostril; alternate nostrils w each dose until help arr elias lorazepam 0.5 mg tablet 0.25 mg PO .QOD PRN (Reason: anxiety) 30 Days Qty: 7 0RF Rx Instructions: decreasing the dose of lorazepam. TAKE HALF A PILL OF THE MEDICATION EVERY OTHER DAY. gabapentin [Neurontin] 300 mg capsule 600 mg PO BID 30 Days Qty: 120 11RF Privigen 10 % solution 40 g IV .QMonth Qty: 400 10RF oxycodone 5 mg tablet 5 mg PO TID PRN (Reason: pain, severe) 30 Days Qty: 90 0RF Rx Instructions: Do not take within 2 hours of HS. hydroxyzine HCl 25 mg tablet 1 tab PO TID PRN (Reason: Anxiety) ondansetron 4 mg tablet,disintegrating 4 mg PO TID PRN (Reason: nausea and vomiting) 5 Days Qty: 10 0RF montelukast 10 mg tablet 10 mg PO BEDTIME albuterol sulfate 90 mcg/actuation HFA aerosol inhaler 1 inh inhalation QID PRN (Reason: shortness of breath or wheezing) Qty: 18 0RF losartan 100 mg tablet 1 tab PO DAILY [id number]-poivlgbevucmb-uhjb [Fioricet] 50-300-40 mg capsule 1 cap PO Q4H PRN (Reason: pain) Qty: 20 0RF Anoro Ellipta 62.5-25 mcg/actuation blister with device 1 puff inhalation DAILY acetaminophen [Tylenol Extra Strength] 500 mg tablet 500 mg PO Q6H PRN (Reason: pain or fever) Qty: 20 0RF lidocaine [Lidoderm] 5 % adhesive patch,medicated 1 patch topical DAILY MDD remove after 12 hours PRN (Reason: pain) Qty: 30 0RF Rx Instructions: leave on most painful area for up to 12 hrs cyclobenzaprine 5 mg tablet 5 mg PO Q8H PRN (Reason: pain (scale score 7-10)) 5 Days Qty: 14 0RF cephalexin 500 mg capsule 500 mg PO Q6H 7 Days Qty: 28 0RF zolpidem 10 mg tablet 1 tab PO BEDTIME PRN (Reason: Insomnia) escitalopram oxalate 10 mg tablet 1 tab PO DAILY miconazole nitrate 2 % aerosol powder 1 spray topical BID Qty: 133 0RF benzonatate 100 mg capsule 100 mg PO TID PRN (Reason: cough) Qty: 30 0RF cholecalciferol (vitamin D3) 25 mcg (1,000 unit) tablet 25 mcg PO DAILY apixaban 5 mg tablet 5 mg PO BID 30 Days Qty: 60 6RF cyanocobalamin (vitamin B-12) 1,000 mcg tablet 1,000 mcg PO DAILY tobramycin-dexamethasone 0.3-0.1 % drops,suspension 2 drp ophthalmic (eye) QID prednisone 20 mg tablet PO quetiapine 400 mg tablet 400 mg PO BEDTIME Daliresp 500 mcg tablet 500 mcg PO DAILY 30 Days Qty: 30 12RF Paxlovid (EUA) 300 mg (150 mg x 2)-100 mg tablets,dose pack See Rx Instructions PO .COMPLEX 5 Days Qty: 30 0RF Rx Instructions: take TWO 150 mg tablets of nirmatrelvir with ONE 100 mg tablet of ritonavir twice daily for 5 days PO benzonatate 200 mg capsule 200 mg PO TID PRN (Reason: cough) 30 Days Qty: 60 3RF doxycycline monohydrate 100 mg tablet 100 mg PO BID 8 Days Qty: 16 0RF dextromethorphan-guaifenesin 5-100 mg/5 mL liquid 10 ml PO Q4H PRN (Reason: cough) 14 Days Qty: 355 6RF pantoprazole 40 mg tablet,delayed release (DR/EC) 40 mg PO BID 14 Days Qty: 28 0RF loperamide [Anti-Diarrheal (loperamide)] 2 mg capsule 2 mg PO Q6H PRN (Reason: loose stool) 14 Days Qty: 60 0RF Metamucil 3.4 gram/5.4 gram powder 1 tbsp PO BID 30 Days Qty: 660 0RF Rx Instructions: mix into at least 8 oz of water or juice before administering
[2022-06-27 03:04] LABS: Appearance Urine Clear; Color Urine Yellow; Glucose Urine UA Negative (Negative); Leukocyte Esterase Urine Trace (Negative); Nitrite Urine Negative (Negative); PH 5.5 (5.0-8.0); Specific Gravity - Urine 1.025 (1.005-1.025); Urine Blood Negative (Negative); Urine Ketones Negative (Negative); Urine Protein Negative (Neg-Trace)
[2022-06-27 03:09] LABS: Bacteria Urine None Seen (None Seen); Hyaline Casts Urine 0-2 /LPF (0-2); RBC Urine 0-2 /HPF (0-2); Squamous Epithelial Cell Urine 0-2 /HPF (0-2); WBC Urine 0-5 /HPF (0-5)
[2022-06-27 03:54] VITALS: RESP 16
[2022-06-27] MEDS: HYDROmorphone HCl 1 MG/ML SYRINGE IVPUSH (03:54)
[2022-06-27] MEDS: ondansetron HCL 4 MG/2 ML VIAL IVPUSH (03:55)
[2022-06-27] MEDS: 0.9 % Sodium Chloride 1,000 ML 999 ML IV (03:55)
[2022-06-27 04:00] VITALS: BP 124/48; PULSE 56; RESP 16; TEMP 36.7; O2SAT 96
== END 2022-06-27 05:26 | disposition home or self-care (01) ==
PROVIDERS: Emergency Provider Internal Medicine
DX: G89.29 Other chronic pain (principal); R10.84 Generalized abdominal pain; I10 Essential (primary) hypertension; E11.9 Type 2 diabetes mellitus without complications; Z86.711 Personal history of pulmonary embolism; Z86.73 Personal history of transient ischemic attack (TIA), and cerebral infarction without residual deficits; Z79.01 Long term (current) use of anticoagulants
CPT/HCPCS: 36415; 80053; 81001; 85027; 96361; 96374; 96375; 99284; J1170; J2405

== ENCOUNTER 2022-07-21 12:15 | Emergency (ER) | payer OTHER, SELFPAY ==
--- NOTE | ~2022-07-21 | XR_ITS ---
EXAMINATION: XR CHEST CLINICAL INFORMATION: Shortness of breath and chest pain COMPARISON: 04/16/2022 TECHNIQUE: Frontal view of the chest was obtained. FINDINGS: No significant abnormality is noted involving the heart, lungs, mediastinum, bony thorax or soft tissues. XR/XR chest 1V IMPRESSION: Unremarkable examination.
[2022-07-21 12:28] VITALS: BP 111/68; PULSE 97; RESP 18; TEMP 36.4; O2SAT 96; BMI 34.3
--- NOTE | 2022-07-21 12:32 | ECG_ITS ---
Test Reason : sob Blood Pressure : / mmHG Vent. Rate : 093 BPM Atrial Rate : 093 BPM P-R Int : 124 ms QRS Dur : 092 ms QT Int : 354 ms P-R-T Axes : 038 004 018 degrees QTc Int : 440 ms Normal sinus rhythm Normal ECG When compared with ECG of 12-JUN-2022 20:39, Criteria for Inferior infarct are no longer Present Referred By: Generic ED Physician Electronically Signed By:ZANA FELIX
[2022-07-21 12:58] LABS: MANUAL DIFF FLAG NO
[2022-07-21 13:01] LABS: Basophils Percent Auto 0.2 % (0-2); Eosinophils Percent Auto 0.2 % (0-4); Hematocrit 38.1 % (37.0-47.0); Hemoglobin 12.1 g/dl (12.0-16.0); Imm Gran Abs Auto 0.24 X10*3/uL (0.00-0.03); Imm Gran Pct Auto 1.9 % (0.0-0.4); Lymphocytes Absolute Auto 0.9 X10*3/uL (1.2-4.9); Lymphocytes Percent Auto 7.1 % (20-40); Mean Corpuscular HGB Conc 31.8 g/dl (31.0-35.0); Mean Corpuscular Hemoglobin 27.4 pg (27.0-33.0); Mean Corpuscular Volume 86.4 fL (80.0-98.0); Mean Platelet Volume 8.6 fL (9.4-12.3); Monocytes Absolute Auto 0.5 X10*3/uL (0.1-1.2); Monocytes Percent Auto 3.6 % (2-11); Neutrophils Absolute Auto 11.2 x10*3/uL (2.0-8.3); Platelet Count 336 X10*3/uL (160-400); Red Blood Count 4.41 X10*6/uL (4.20-5.50); Red Cell Distribution Width 15.5 % (11.0-16.0); White Blood Count 12.9 X10*3/uL (4.8-10.8)
[2022-07-21 13:24] LABS: COVID-19 Test Negative (Negative); IDNOW Serial# 16C4AD1C
[2022-07-21 13:29] LABS: Anion Gap 17 (12-20); Blood Urea Nitrogen 22 mg/dL (9-16); Calcium 10.1 mg/dL (8.4-10.2); Carbon Dioxide 22 mmol/L (22-29); Chloride 105 mmol/L (96-108); Estimated Glomerular Filt Rate 53; Glucose Random 162 mg/dL (60-115); Potassium 4.6 mmol/L (3.3-5.1); Sodium 139 mmol/L (135-145); Troponin-I High Sensitivity < 3.5 ng/L (<3.5-17.0)
[2022-07-21 13:55] VITALS: BP 137/74; PULSE 96; RESP 27; O2SAT 98
--- NOTE | 2022-07-21 14:28 | ED_ITS ---
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 Last night the cough was worse she could not sleep. She felt worse and so she came to the ED. MD complaint: other (cough and shortness of breath) Pertinent past history: other (COPD) Onset (ago): week(s) Timing of current episode: constant Prior episodes: Yes Onset: during rest Pain location: other (entire chest) Severity: moderate Quality: tightness Exacerbating factors: other (coughing) Context: recent illness Associated symptoms: dyspnea and cough Treatment prior to arrival: none Related Data Home Medications Medication Instructions Recorded Confirmed montelukast 10 mg tablet 10 mg PO BEDTIME 08/02/20 06/16/22 cyanocobalamin (vitamin B-12) 1,000 mcg PO DAILY 11/05/20 06/16/22 1,000 mcg tablet hydroxyzine HCl 25 mg tablet 1 tab PO TID PRN Anxiety 12/12/20 06/16/22 cholecalciferol (vitamin D3) 25 25 mcg PO DAILY 03/19/21 06/16/22 mcg (1,000 unit) tablet losartan 100 mg tablet 1 tab PO DAILY 05/12/21 06/16/22 umeclidinium 62.5 mcg-vilanterol 1 puff inhalation DAILY 10/12/21 06/16/22 25 mcg/actuation powdr for inhalation (Anoro Ellipta) zolpidem 10 mg tablet 1 tab PO BEDTIME PRN Insomnia 11/12/21 06/16/22 escitalopram oxalate 10 mg tablet 1 tab PO DAILY 11/13/21 06/16/22 prednisone 20 mg tablet mg PO 06/02/22 06/16/22 quetiapine 400 mg tablet 400 mg PO BEDTIME 06/02/22 06/16/22 tobramycin 0.3 %-dexamethasone 0.1 2 drp ophthalmic (eye) QID 06/02/22 06/16/22 % eye drops,suspension Previous Rx's Medication Instructions Recorded albuterol sulfate 90 mcg/actuation 1 inh inhalation QID PRN shortness 10/13/20 aerosol inhaler of breath or wheezing #18 grams ondansetron 4 mg disintegrating 4 mg PO TID PRN nausea and 05/23/21 tablet vomiting 5 days #10 tabs apixaban 5 mg tablet 5 mg PO BID 30 days #60 tabs 06/27/21 tkjdjkglvl-bxexurwoneksm-vrfwxnan 1 cap PO Q4H PRN pain #20 caps 08/08/21 50 mg-300 mg-40 mg capsule (Fioricet) roflumilast 500 mcg tablet 500 mcg PO DAILY 30 days #30 tabs 11/03/21 (Daliresp) acetaminophen 500 mg tablet 500 mg PO Q6H PRN pain or fever 01/21/22 (Tylenol Extra Strength) #20 tabs cyclobenzaprine 5 mg tablet 5 mg PO Q8H PRN pain (scale score 01/21/22 7-10) 5 days #14 tabs lidocaine 5 % topical patch 1 patch topical DAILY PRN pain #30 01/21/22 (Lidoderm) ea naloxone 4 mg/actuation nasal 4 mg intranasal Q2M PRN opioid 03/23/22 spray (Narcan) overdose #2 ea lorazepam 0.5 mg tablet 0.25 mg PO .QOD PRN anxiety 30 03/27/22 days #7 tabs gabapentin 300 mg capsule 600 mg PO BID 30 days #120 caps 04/03/22 (Neurontin) benzonatate 100 mg capsule 100 mg PO TID PRN cough #30 caps 04/16/22 miconazole nitrate 2 % topical 1 spray topical BID #133 grams 04/16/22 spray powder immune glob,gamm(IgG) 10 %-pro-IgA 40 g IV .QMonth #400 mL 05/27/22 0 to 50 mcg/mL intravenous solution (Privigen) benzonatate 200 mg capsule 200 mg PO TID PRN cough 30 days 06/11/22 #60 caps dextromethorphan-guaifenesin 5 10 ml PO Q4H PRN cough 14 days 06/11/22 mg-100 mg/5 mL oral liquid #355 mL doxycycline monohydrate 100 mg 100 mg PO BID 8 days #16 tabs 06/11/22 tablet nirmatrelvir 300 mg (150 mg See Rx Instructions PO .COMPLEX 5 06/11/22 x2)-ritonavir 100 mg tablet,dose days #30 ea pack(EUA) (Paxlovid) cephalexin 500 mg capsule 500 mg PO Q6H 7 days #28 caps 06/13/22 loperamide 2 mg capsule 2 mg PO Q6H PRN loose stool 2 06/16/22 (Anti-Diarrheal (loperamide)) weeks #60 caps pantoprazole 40 mg tablet,delayed 40 mg PO BID 2 weeks #28 tabs 06/16/22 release psyllium husk 3.4 gram/5.4 gram 1 tbsp PO BID 30 days #660 grams 06/16/22 oral powder (Metamucil) dicyclomine 20 mg tablet 20 mg PO QID PRN abdominal pain 06/27/22 #20 tabs oxycodone 5 mg tablet 5 mg PO TID PRN pain, severe 30 06/29/22 days #90 tabs sucralfate 100 mg/mL oral 10 ml PO QIDACHS 2 weeks #420 mL 06/30/22 suspension (Carafate) azithromycin 500 mg tablet 500 mg PO DAILY 3 days #3 tabs 07/10/22 prednisone 20 mg tablet See Rx Instructions PO DAILY 10 07/10/22 days #15 tabs ixeqdwusbvmwe-YL-nkwqfiqpnyw 2.5 30 ml PO Q6-8H PRN cough #118 mL 07/21/22 mg-5 mg-50 mg/5 mL oral liquid (Robitussin Cough and Cold CF) Allergies Allergy/AdvReac Type Severity Reaction Status Date / Time No Known Allergies Allergy Verified 07/21/22 12:28 Review of Systems Constitutional: Constitutional: Reports no additional constitutional complaints Eyes: Eyes: Reports no additional eye complaints ENT: Denies dizziness Cardiovascular: Cardiovascular: Reports no additional cardiovascular complaints Respiratory: Respiratory: Reports as per HPI Gastrointestinal: Gastrointestinal: Reports no additional gastrointestinal complaints Genitourinary: Genitourinary: Reports no additional female genitourinary complaints Musculoskeletal: Musculoskeletal: Reports no additional musculoskeletal complaints Integumentary/Breasts: Skin/Breast: Denies rash Neurologic: Reports system reviewed and no additional complaints, except as documented, Denies dizziness and Denies Sensory deficit (Neuro) Psychiatric: Psychiatric: Denies anxiety PMFSH Past Medical History Medical History Anemia Arthritis Asthma Asthma exacerbation Asthma-COPD overlap syndrome Back pain Bronchitis Chronic pain syndrome Complex regional pain syndrome i of left lower limb Cough Depression Diabetic neuropathy Diet-controlled diabetes mellitus Disc degeneration, lumbosacral Dizziness Elevated lactic acid level Essential hypertension Fibromyalgia Headache Headache, migraine Hypogammaglobulinemia Hypothyroidism Laryngotracheitis Low back pain Morbid obesity Nausea vomiting and diarrhea BABATUNDE (obstructive sleep apnea) Osteoporosis Pleuritic chest pain 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 Pulmonary embolism Sleep apnea Spondylosis of cervical spine 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 TIA (transient ischemic attack) Type 2 diabetes mellitus with unspecified complications Surgical History History of bariatric surgery History of cholecystectomy History of esophagogastroduodenoscopy (EGD) Hx of colonoscopy S/P total abdominal hysterectomy Family History Family History Mother Diabetes Stroke Family/Other Diabetes Father Diabetes Social History Social History Household Members: Significant Other Housing: House Do you presently have visiting nurse or other home services: No Alcohol intake: never Patient Tobacco Use Status: Never used Tobacco e-Cigarette/Vaping Use: Never Used Advance Directives: No Advance Directives Information Provided: No Advance Directives Date on File: 05/23/21 service: No Current occupational status: unemployed and disabled Physical Exam Vital Signs: Vital Signs: Last Vital Signs Temp 98.3 F 07/21/22 16:18 Pulse 94 07/21/22 16:18 Resp 20 07/21/22 16:18 BP 137/80 07/21/22 16:18 Pulse Ox 97 07/21/22 16:18 O2 Del Method 07/21/22 16:18 O2 Flow Rate 2 07/21/22 16:18 BMI result Body Mass Index 34.3 Const: Other: coughing looking older than stated age Nutritional Appearance: obese Orientation/consciousness: oriented to person and patient oriented x3 Limitations: no limitations HEENT: Head: Yes normal to inspection Ears: external ears normal General nose exam: Normal external nose present Mouth: Normal oral and palatal mucosa present and oropharynx normal Throat: Yes posterior oropharynx normal Eyes: General: appearance normal, both eyes and all related structures Neck: Other: supple Neck: Yes normal visual inspection Chest: Chest palpation & inspection: normal inspection of the chest Resp: Other: coughing, no wheezing Cardio: Jugular venous distension: no JVD Rate: regular rate Rhythm: regular rhythm Heart sounds: S1 normal heart sound present and S2 normal heart sound present GI: Inspection: Yes normal to inspection Palpation (GI): Soft to palpation, nontender and No hepatosplenomegaly present Auscultation: normal bowel sounds : General: Yes no CVA tenderness Back/Spine/Pelvis: Back: no CVA tenderness Skin: General skin exam: no rashes or lesions noted Neuro: General: oriented to person and patient oriented x3 Cranial nerves: Yes CN's II-XII intact bilaterally Motor exam (neuro): 5/5 motor strength present throughout Sensory Exam: No Sensory deficit (Neuro) Extrem: General: Yes normal to inspection Psych: Appearance: grossly normal Course Reevaluation(s) Reevaluation #1: no wheezing, resting comfortably, will dc home Time: 15:52 MDM - Chest Pain Lab Data Result diagrams: 07/21/22 12:48 07/21/22 12:48 Labs: Lab Results 07/21/22 07/21/22 07/21/22 Range/Units 12:48 12:48 12:48 WBC 12.9 H (4.8-10.8) X10*3/uL RBC 4.41 (4.20-5.50) X10*6/uL Hgb 12.1 (12.0-16.0) g/dl Hct 38.1 (37.0-47.0) % MCV 86.4 (80.0-98.0) fL MCH 27.4 (27.0-33.0) pg MCHC 31.8 (31.0-35.0) g/dl RDW 15.5 (11.0-16.0) % Plt Count 336 (160-400) X10*3/uL MPV 8.6 L (9.4-12.3) fL Immature Gran % (Auto) 1.9 H (0.0-0.4) % Neut % (Auto) 87.0 H (45-73) % Lymph % (Auto) 7.1 L (20-40) % [place] % (Auto) 3.6 (2-11) % Eos % (Auto) 0.2 (0-4) % Baso % (Auto) 0.2 (0-2) % Lymph # (Auto) 0.9 L (1.2-4.9) X10*3/uL [place] # (Auto) 0.5 (0.1-1.2) X10*3/uL Eos # (Auto) 0.0 (0.0-0.4) X10*3/uL Baso # (Auto) 0.0 (0.0-0.2) X10*3/uL Abs Immat Gran (auto) 0.24 H (0.00-0.03) X10*3/uL Absolute Neuts (auto) 11.2 H (2.0-8.3) x10*3/uL Absolute Nucleated RBC 0.000 (0.0-0.012) X10*3/uL Nucleated RBC % (auto) 0.0 (0.0-0.2) /100WBC Sodium 139 (135-145) mmol/L Potassium 4.6 (3.3-5.1) mmol/L Chloride 105 (96-108) mmol/L Carbon Dioxide 22 (22-29) mmol/L Anion Gap 17 (12-20) BUN 22 H (9-16) mg/dL Creatinine 1.08 (0.5-1.4) mg/dL Estim Creat Clear Calc 54.0 Estimated GFR 53 Random Glucose 162 H (60-115) mg/dL Calcium 10.1 D (8.4-10.2) mg/dL Troponin I High Sens < 3.5 (<3.5-17.0) ng/L COVID-19 ([facility]) (Negative) COVID-19 Clin Com 07/21/22 Range/Units 12:48 WBC (4.8-10.8) X10*3/uL RBC (4.20-5.50) X10*6/uL Hgb (12.0-16.0) g/dl Hct (37.0-47.0) % MCV (80.0-98.0) fL MCH (27.0-33.0) pg MCHC (31.0-35.0) g/dl RDW (11.0-16.0) % Plt Count (160-400) X10*3/uL MPV (9.4-12.3) fL Immature Gran % (Auto) (0.0-0.4) % Neut % (Auto) (45-73) % Lymph % (Auto) (20-40) % [place] % (Auto) (2-11) % Eos % (Auto) (0-4) % Baso % (Auto) (0-2) % Lymph # (Auto) (1.2-4.9) X10*3/uL [place] # (Auto) (0.1-1.2) X10*3/uL Eos # (Auto) (0.0-0.4) X10*3/uL Baso # (Auto) (0.0-0.2) X10*3/uL Abs Immat Gran (auto) (0.00-0.03) X10*3/uL Absolute Neuts (auto) (2.0-8.3) x10*3/uL Absolute Nucleated RBC (0.0-0.012) X10*3/uL Nucleated RBC % (auto) (0.0-0.2) /100WBC Sodium (135-145) mmol/L Potassium (3.3-5.1) mmol/L Chloride (96-108) mmol/L Carbon Dioxide (22-29) mmol/L Anion Gap (12-20) BUN (9-16) mg/dL Creatinine (0.5-1.4) mg/dL Estim Creat Clear Calc Estimated GFR Random Glucose (60-115) mg/dL Calcium (8.4-10.2) mg/dL Troponin I High Sens (<3.5-17.0) ng/L COVID-19 ([facility]) Negative (Negative) COVID-19 Clin Com See Note Discharge Plan Discharge Clinical Impression: Asthma-COPD overlap syndrome Patient Disposition: Home, Self-Care Instructions: COPD (Chronic Obstructive Pulmonary Disease) (ED) Prescriptions: New Robitussin Cough and Cold CF 2.5-5-50 mg/5 mL liquid 30 ml PO Q6-8H PRN (Reason: cough) Qty: 118 0RF No Action naloxone [Narcan] 4 mg/actuation spray,non-aerosol 4 mg intranasal Q2M PRN (Reason: opioid overdose) Qty: 2 0RF Rx Instructions: spray 1 dose into ONE nostril; alternate nostrils w each dose until help arrives lorazepam 0.5 mg tablet 0.25 mg PO .QOD PRN (Reason: anxiety) 30 Days Qty: 7 0RF Rx Instructions: decreasing the dose of lorazepam. TAKE HALF A PILL OF THE MEDICATION EVERY OTHER DAY. gabapentin [Neurontin] 300 mg capsule 600 mg PO BID 30 Days Qty: 120 11RF Privigen 10 % solution 40 g IV .QMonth Qty: 400 10RF sucralfate [Carafate] 100 mg/mL suspension 10 ml PO QIDACHS 14 Days Qty: 420 0RF azithromycin 500 mg tablet 500 mg PO DAILY 3 Days Qty: 3 0RF prednisone 20 mg tablet See Rx Instructions PO DAILY 10 Days Qty: 15 0RF Rx Instructions: PO daily; Take 2 tabs daily x 5 days, then 1 tablet daily x 5 days hydroxyzine HCl 25 mg tablet 1 tab PO TID PRN (Reason: Anxiety) ondansetron 4 mg tablet,disintegrating 4 mg PO TID PRN (Reason: nausea and vomiting) 5 Days Qty: 10 0RF montelukast 10 mg tablet 10 mg PO BEDTIME albuterol sulfate 90 mcg/actuation HFA aerosol inhaler 1 inh inhalation QID PRN (Reason: shortness of breath or wheezing) Qty: 18 0RF losartan 100 mg tablet 1 tab PO DAILY jubttcshuw-mpjzywywfnqcr-jjwe [Fioricet] 50-300-40 mg capsule 1 cap PO Q4H PRN (Reason: pain) Qty: 20 0RF Anoro Ellipta 62.5-25 mcg/actuation blister with device 1 puff inhalation DAILY acetaminophen [Tylenol Extra Strength] 500 mg tablet 500 mg PO Q6H PRN (Reason: pain or fever) Qty: 20 0RF lidocaine [Lidoderm] 5 % adhesive patch,medicated 1 patch topical DAILY MDD remove after 12 hours PRN (Reason: pain) Qty: 30 0RF Rx Instructions: leave on most painful area for up to 12 hrs cyclobenzaprine 5 mg tablet 5 mg PO Q8H PRN (Reason: pain (scale score 7-10)) 5 Days Qty: 14 0RF cephalexin 500 mg capsule 500 mg PO Q6H 7 Days Qty: 28 0RF zolpidem 10 mg tablet 1 tab PO BEDTIME PRN (Reason: Insomnia) escitalopram oxalate 10 mg tablet 1 tab PO DAILY miconazole nitrate 2 % aerosol powder 1 spray topical BID Qty: 133 0RF benzonatate 100 mg capsule 100 mg PO TID PRN (Reason: cough) Qty: 30 0RF dicyclomine 20 mg tablet 20 mg PO QID PRN (Reason: abdominal pain) Qty: 20 0RF cholecalciferol (vitamin D3) 25 mcg (1,000 unit) tablet 25 mcg PO DAILY apixaban 5 mg tablet 5 mg PO BID 30 Days Qty: 60 6RF cyanocobalamin (vitamin B-12) 1,000 mcg tablet 1,000 mcg PO DAILY tobramycin-dexamethasone 0.3-0.1 % drops,suspension 2 drp ophthalmic (eye) QID prednisone 20 mg tablet PO quetiapine 400 mg tablet 400 mg PO BEDTIME oxycodone 5 mg tablet 5 mg PO TID PRN (Reason: pain, severe) 30 Days Qty: 90 0RF Rx Instructions: Do not take within 2 hours of HS. Daliresp 500 mcg tablet 500 mcg PO DAILY 30 Days Qty: 30 12RF Paxlovid (EUA) 300 mg (150 mg x 2)-100 mg tablets,dose pack See Rx Instructions PO .COMPLEX 5 Days Qty: 30 0RF Rx Instructions: take TWO 150 mg tablets of nirmatrelvir with ONE 100 mg tablet of ritonavir twice daily for 5 days PO benzonatate 200 mg capsule 200 mg PO TID PRN (Reason: cough) 30 Days Qty: 60 3RF doxycycline monohydrate 100 mg tablet 100 mg PO BID 8 Days Qty: 16 0RF dextromethorphan-guaifenesin 5-100 mg/5 mL liquid 10 ml PO Q4H PRN (Reason: cough) 14 Days Qty: 355 6RF pantoprazole 40 mg tablet,delayed release (DR/EC) 40 mg PO BID 14 Days Qty: 28 0RF loperamide [Anti-Diarrheal (loperamide)] 2 mg capsule 2 mg PO Q6H PRN (Reason: loose stool) 14 Days Qty: 60 0RF Metamucil 3.4 gram/5.4 gram powder 1 tbsp PO BID 30 Days Qty: 660 0RF Rx Instructions: mix into at least 8 oz of water or juice before administering Referrals: Physician,Unknown J [Primary Care Provider] - 1 week
[2022-07-21 14:55] VITALS: BP 137/74; PULSE 90; RESP 20; O2SAT 98
[2022-07-21] MEDS: guaiFENesin 200 MG/10 ML 10 ML LIQUID PO (14:57)
[2022-07-21] MEDS: Ketorolac Tromethamine 15 MG/ML VIAL IVPUSH (14:57)
--- NOTE | 2022-07-21 14:59 | PC.NURSE ---
patient a&ox3, manager cardiac cath intact nsr 90s, vss, pt medicated for 10/10 back and chest pain, medicated for cough, call rayo within reach, will continue to monitor
[2022-07-21 15:03] VITALS: PULSE 99; RESP 24; O2SAT 97
[2022-07-21] MEDS: Albuterol/Iprat 2.5/0.5MG 3 ML AMPUL.NEB INHALE (15:03)
[2022-07-21 16:18] VITALS: BP 137/80; PULSE 94; RESP 20; TEMP 36.8; O2SAT 97
[2022-07-21] MEDS: metroNIDAZOLE/NS 500 MG/100 ML PIGGYBACK 100 MG IV (16:33)
[2022-07-21] MEDS: Doxycycline Hyclate 100 MG in 0.9 % Sodium Chloride 250 ML 166.67 MG IV (17:11)
[2022-07-21 17:46] VITALS: BP 100/63; PULSE 97; RESP 19; O2SAT 98
[2022-07-21] MEDS: Acetaminophen 325 MG TABLET 650 MG PO (17:56)
--- NOTE | 2022-07-21 18:00 | PC.NURSE ---
pt pwd at time of discharge. VS stable. pt given tylenol PO at time of discharge per DEC. pt provided with discharge packet at time of discharge. pt verbalized understanding of discharge instructions.
== END 2022-07-21 18:02 | disposition home or self-care (01) ==
PROVIDERS: Emergency Provider Emergency Medicine
DX: J44.9 Chronic obstructive pulmonary disease, unspecified (principal); R07.89 Other chest pain; R51.9 Headache, unspecified; R05.9 Cough, unspecified; R06.02 Shortness of breath; Z20.822 Contact with and (suspected) exposure to COVID-19; Z79.899 Other long term (current) drug therapy
CPT/HCPCS: 36415; 71045; 80048; 84484; 85025; 87635; 93005; 94640; 96365; 96375; 99284; 99285; J1885

== ENCOUNTER → 2022-07-27 12:50 | Outpatient (BNVA) | payer OTHER, SELFPAY | PROVIDERS: Visit Provider Anesthesiology | DX: Z51.81 Encounter for therapeutic drug level monitoring (principal); F11.20 Opioid dependence, uncomplicated | CPT/HCPCS: 99211 ==

== ENCOUNTER 2022-07-28 08:28 | Outpatient (REF) | payer OTHER, SELFPAY ==
[2022-07-28 08:38] LABS: MANUAL DIFF FLAG NO
[2022-07-28 08:47] LABS: Basophils Percent Auto 0.4 % (0-2); Eosinophils Absolute Auto 0.2 X10*3/uL (0.0-0.4); Eosinophils Percent Auto 2.9 % (0-4); Hematocrit 38.9 % (37.0-47.0); Hemoglobin 12.2 g/dl (12.0-16.0); Imm Gran Abs Auto 0.09 X10*3/uL (0.00-0.03); Imm Gran Pct Auto 1.1 % (0.0-0.4); Lymphocytes Absolute Auto 1.9 X10*3/uL (1.2-4.9); Lymphocytes Percent Auto 23.1 % (20-40); Mean Corpuscular HGB Conc 31.4 g/dl (31.0-35.0); Mean Corpuscular Hemoglobin 27.9 pg (27.0-33.0); Mean Corpuscular Volume 88.8 fL (80.0-98.0); Mean Platelet Volume 8.8 fL (9.4-12.3); Monocytes Absolute Auto 0.5 X10*3/uL (0.1-1.2); Monocytes Percent Auto 6.4 % (2-11); Neutrophils Absolute Auto 5.6 x10*3/uL (2.0-8.3); Neutrophils Percent Auto 66.1 % (45-73); Platelet Count 321 X10*3/uL (160-400); Red Blood Count 4.38 X10*6/uL (4.20-5.50); Red Cell Distribution Width 15.9 % (11.0-16.0); White Blood Count 8.4 X10*3/uL (4.8-10.8)
[2022-07-28 08:55] LABS: Estimated Average Glucose 123 mg/dL; Hemoglobin A1c % 5.9 %
[2022-07-28 09:20] LABS: Alanine Aminotransferase 25 U/L (0-31); Albumin Level 3.6 g/dL (3.5-5.0); Alkaline Phosphatase 92 U/L (39-117); Anion Gap 14 (12-20); Aspartate Amino Transferase 19 U/L (5-31); Bilirubin Total 0.2 mg/dL (0.0-1.0); Blood Urea Nitrogen 19 mg/dL (9-16); Calcium 9.1 mg/dL (8.4-10.2); Carbon Dioxide 25 mmol/L (22-29); Chloride 107 mmol/L (96-108); Cholesterol 223 mg/dL; Estimated Glomerular Filt Rate 54; Glucose Random 95 mg/dL (60-115); HDL Cholesterol 91 mg/dL; LDL Cholesterol Calculated 104 mg/dl; Potassium 4.7 mmol/L (3.3-5.1); Sodium 141 mmol/L (135-145); Triglycerides 143 mg/dL
[2022-07-28 09:44] LABS: Ferritin 14 ng/mL (10-250); Thyroid Stimulating Hormone 3.58 uIU/mL (0.32-4.0)
[2022-07-28 10:15] LABS: Vitamin B12 337 pg/mL (200-900)
[2022-07-28 10:37] LABS: Creatinine Urine 171.42 mg/dL; Microalbum/Creatinine Ratio Ur 6.4 ug/mg cr
== END 2022-07-28 08:29 | disposition home or self-care (01) ==
LOC: HO.LAB 08:28
PROVIDERS: PCP Internal Medicine; Visit Provider Internal Medicine
DX: D51.1 Vitamin B12 deficiency anemia due to selective vitamin B12 malabsorption with proteinuria (principal); E11.9 Type 2 diabetes mellitus without complications; H10.89 Other conjunctivitis; J45.909 Unspecified asthma, uncomplicated
CPT/HCPCS: 36415; 80053; 80061; 82043; 82607; 82728; 83036; 84443; 85025

== ENCOUNTER 2022-08-21 02:15 | Observation (INO) | payer OTHER, SELFPAY ==
[2022-08-21] VITALS (10 sets, daily range): BP systolic 104–130; BP diastolic 49–64; PULSE 56–86; RESP 14–24; TEMP 36–37.1; O2SAT 93–100; BMI 54.5; BMI 37.4
--- NOTE | ~2022-08-21 | XR_ITS ---
EXAMINATION: XR CHEST CLINICAL INFORMATION: Shortness of breath COMPARISON: None TECHNIQUE: 2 views of the chest were obtained. FINDINGS: Normal symmetric lung volumes. No parenchymal consolidation. No pleural effusion. No pneumothorax. Cardiomediastinal silhouette and pulmonary vascularity are within normal limits. No acute osseous abnormalities. XR/XR chest 2V IMPRESSION: No acute findings
--- NOTE | ~2022-08-21 | CT_ITS ---
EXAMINATION: CT ABDOMEN AND PELVIS WITHOUT CONTRAST CLINICAL INFORMATION: Abdominal pain. COMPARISON: CT scans dating between June 12, 2022 and July 28, 2008 TECHNIQUE: Multidetector volumetric imaging was performed from the superior aspect of the liver through the pubic symphysis. Sagittal and coronal reformatted images were obtained on the technologist's workstation. This CT examination was performed using dose optimization techniques as appropriate, variously including the following: *Automated exposure control *Adjustment of mA and/or kV according to patient size (this includes techniques or standardized protocols for targeted exams where dose is matched to indication/reason for exam; i.e. extremities or head) *Use of iterative reconstruction technique DLP: 721 mGy-cm FINDINGS: LUNG BASES: The lung bases appear clear, with no evidence of inflammation or nodules. Mildly decreased blood pool density suggesting anemia. LIVER, GALLBLADDER, AND BILIARY TREE: The liver appears unremarkable in size, shape, and attenuation. No focal hepatic lesion or biliary ductal dilatation is appreciated. Status post cholecystectomy. PANCREAS: Unremarkable SPLEEN: Unremarkable ADRENAL GLANDS: Unremarkable KIDNEYS AND URETERS: Approximately 3 cm or less benign bilateral simple renal cysts for which no further dedicated follow up imaging is indicated. The kidneys otherwise appear unremarkable in size, shape, and attenuation. No hydronephrosis, hydroureter, or calculi seen. BLADDER: Unremarkable GASTROINTESTINAL TRACT: Status post gastric bypass. The small and large bowel otherwise appear unremarkable. No diverticulosis. Normal-appearing distal ileum and vermiform appendix. ABDOMINAL WALL: No significant hernia is appreciated. LYMPH NODES: No evidence of adenopathy by size criteria. VASCULAR: Unremarkable PELVIC VISCERA: Status post hysterectomy. OSSEOUS STRUCTURES: L1 hemangioma. Minimal, grade 1 anterolisthesis of L5 on S1. CT/CT abdomen pelvis wo IV con IMPRESSION: No acute finding.
--- NOTE | 2022-08-21 02:27 | ECG_ITS ---
Test Reason : SOB Blood Pressure : / mmHG Vent. Rate : 061 BPM Atrial Rate : 061 BPM P-R Int : 124 ms QRS Dur : 090 ms QT Int : 374 ms P-R-T Axes : 045 006 012 degrees QTc Int : 376 ms Normal sinus rhythm Nonspecific T wave abnormality Abnormal ECG When compared with ECG of 21-JUL-2022 12:40, Vent. rate has decreased BY 32 BPM QT has shortened T wave inversion less evident in Anterior leads Referred By: Generic ED Physician Electronically Signed By:KIMBERLY NESBITT MD
--- OUTSIDE RECORDS SUMMARY | 2022-08-21 02:39 | XMS_ITS | Continuity of Care Document ---
:1970 Author Organization [facility] Address [address] [place] [id number]- Care Team Providers Name Role Phone Irving WOODWARD, Claudia Harrison Primary Care Physician [place] [facility] [place](s): 01/26/20 - 01/26/[address] [address]- [facility] Encounter Diagnosis Viral respiratory illness (Final) - 01/26/20 Discharge Disposition: A-D/C Home Attending Physician: Mely Vogt MD Admitting Physician: Mely Vogt MD Referring Physician: Not on Staff, Referring MD Allergies, Adverse Reactions, Alerts Substance Reaction Severity Status NKA Active Medications acetaminophen-codeine #3 1 tablet, By Mouth, Every 6 hours, 0 Refills, Maintenance, 05/30/18 9:09:27 EDT Start Date: 05/30/18 Status: OrderedAmbien 10 mg oral tablet 1 tablet = 10 mg, By Mouth, Daily at bedtime, PRN for sleep, 0 Refills, Maintenance, 05/30/18 9:07:12 EDT, Tablet Start Date: 05/30/18 Status: Orderedbaclofen 20 mg oral tablet 20 mg, 1, tablet, By Mouth, 3 times a day, # 90 tablet, Refills 0, Maintenance, 05/30/18 9:13:20 EDT Start Date: 05/30/18 Status: Ordereddiphenhydramine 50 mg oral capsule 1 capsule = 50 mg, By Mouth, 3 times a day, 0 Refills, Maintenance Start Date: 01/28/10 Status: OrderedFioricet oral capsule 1 capsule, By Mouth, Every 4 hours, PRN as needed, # 30 capsule, 0 Refills, Acute 01/31/20 14:42:00 EDT, 01/26/20 14:42:00 EDT, Capsule, [facility]/pharmacy #[id number], 1 capsule By Mouth Every 4 hours,PRN:as needed, 97.3, cm, 06/07/18 8:23:00 EDT, Height, 149, k... Start Date: 01/26/20 Stop Date: 01/31/20 Status: OrderedMidrin 325 mg-100 mg-65 mg oral capsule See Instructions, Take 2 capsules at the earliest sign of a headache, can follow with 1 capsule onceafter 1 hour if needed, no more than 8 capsules/day and no more than 3 times per week, # 30 capsule,0 Refills, Maintenance Start Date: 07/18/10 Status: OrderedpredniSONE 20 mg oral tablet 1 tablet = 20 mg, By Mouth, Daily, for 5 days, # 5 tablet, 0 Refills, Acute 01/31/20 14:41:00 EDT, 01/26/20 14:41:00 EDT, Tablet, [facility]/pharmacy #[id number], 97.3, cm, 06/07/18 8:23:00 EDT, Height, 149, kg, 06/03/18 11:38:00 EDT, Dry Weight Start Date: 01/26/20 Stop Date: 01/31/20 Status: OrderedSEROquel 300 mg oral tablet 1 tablet = 300 mg, By Mouth, Daily at bedtime, # 30 tablet, 0 Refills, Maintenance, 05/30/18 9:07:28EDT, Tablet Start Date: 05/30/18 Status: OrderedVitamin B-12 100 mcg oral tablet 100 mcg, 1, tablet, By Mouth, Daily, # 30 tablet, Refills 0, Maintenance, 05/30/18 9:07:44 EDT Start Date: 05/30/18 Status: OrderedVitamin D3 oral tablet 1 tablet = 400 International_Units, By Mouth, Daily, # 30 tablet, 0 Refills, Maintenance, 05/30/18 9:08:01 EDT, Tablet Start Date: 05/30/18 Status: Ordered Problem List Condition Effective Dates Status Health Status Informant Other Pain Disorders Related to Active Psychological Factors(Confirmed) Vital Signs Most recent to oldest [Reference Range]: 1 Oxygen Saturation [94-100 %] 99 % (01/26/20 2:28 PM) Pulse Rate [55-90 bpm] 95 bpm *H* (01/26/20 2:28 PM) Blood Pressure [90-138/55-84 mm Hg] 129/59 mm Hg (01/26/20 2:28 PM) Respiratory Rate [16-30 br/min] 24 br/min (01/26/20 2:28 PM) Temperature [96.8-100.4 DegF] 98.3 DegF (01/26/20 2:28 PM) Mode of Delivery (Oxygen) Room air (01/26/20 2:28 PM) Blood pressure sites Arm, left (01/26/20 2:28 PM) Temperature Route Oral (01/26/20 2:28 PM)
--- OUTSIDE RECORDS SUMMARY | 2022-08-21 02:39 | XMS_ITS | Continuity of Care Document ---
:1970 Author Organization [facility] Address [address] [place] [id number]- Care Team Providers Name Role Phone Claudia Villatoro MD Primary Care Physician [place] [facility] [place] - 05/16/[address] [address] Attending Physician: Polina Robles MD Referring Physician: Polina Robles MD Allergies, Adverse Reactions, Alerts Substance Reaction Severity Status NKA Active Immunizations Given and Recorded Vaccine Date Status Refusal Reason SARS-CoV-2 (COVID-19) mRNA BNT-162b2 vac 03/07/21 Given Medications acetaminophen-codeine #3 1 tablet, By Mouth, [...] 0 Refills, Maintenance Start Date: 01/28/10 Status: OrderedMidrin 325 mg-100 mg-65 mg oral capsule See Instructions, Take 2 capsules at the earliest sign of a headache, can follow with 1 capsule onceafter 1 hour if needed, no more than 8 capsules/day and no more than 3 times per week, # 30 capsule,0 Refills, Maintenance Start Date: 07/18/10 Status: OrderedSEROquel 300 mg oral tablet 1 [...]
--- NOTE | 2022-08-21 02:53 | ED_ITS ---
HPI - SOB/Dyspnea General Chief Complaint: Dyspnea Stated Complaint: asthma Time Seen by Provider: 08/21/22 02:53 Source: patient Mode of arrival: EMS Limitations: no limitations History of Present Illness HPI Narrative: Patient 49 years old with history of asthma-COPD overlap syndrome, chronic pain syndrome, depression, diabetes, fibromyalgia, hypertension comes here for increased cough shortness of breath for last 5 days also complaining of pain in the back and upper abdomen after coughing no vomiting no diarrhea at low-grade fever . Mostly cough is dry. Patient on prednisone 20 mg daily patient also taking Eliquis for PE Related Data Home Medications Medication Instructions Recorded Confirmed montelukast 10 mg tablet 10 mg PO BEDTIME 08/02/20 08/06/22 cyanocobalamin (vitamin B-12) 1,000 mcg PO DAILY 11/05/20 08/06/22 1,000 mcg tablet hydroxyzine HCl 25 mg tablet 1 tab PO TID PRN Anxiety 12/12/20 08/06/22 cholecalciferol (vitamin D3) 25 25 mcg PO DAILY 03/19/21 08/06/22 mcg (1,000 unit) tablet umeclidinium 62.5 mcg-vilanterol 1 puff inhalation DAILY 10/12/21 08/06/22 25 mcg/actuation powdr for inhalation (Anoro Ellipta) zolpidem 10 mg tablet 1 tab PO BEDTIME PRN Insomnia 11/12/21 08/06/22 quetiapine 400 mg tablet (Seroquel) 400 mg PO BEDTIME 06/02/22 08/06/22 tobramycin 0.3 %-dexamethasone 0.1 2 drp ophthalmic (eye) QID 06/02/22 08/06/22 % eye drops,suspension Previous Rx's Medication Instructions Recorded albuterol sulfate 90 mcg/actuation 1 inh inhalation QID PRN shortness 10/13/20 aerosol inhaler of breath or wheezing #18 grams ondansetron 4 mg disintegrating 4 mg PO TID PRN nausea and 05/23/21 tablet vomiting 5 days #10 tabs apixaban 5 mg tablet 5 mg PO BID 30 days #60 tabs 06/27/21 tpeiwtseig-jfjdqadjimrvq-aqjjzbir 1 cap PO Q4H PRN pain #20 caps 08/08/21 50 mg-300 mg-40 mg capsule (Fioricet) roflumilast 500 mcg tablet 500 mcg PO DAILY 30 days #30 tabs 11/03/21 (Daliresp) acetaminophen 500 mg tablet 500 mg PO Q6H PRN pain or fever 01/21/22 (Tylenol Extra Strength) #20 tabs lidocaine 5 % topical patch 1 patch topical DAILY PRN pain #30 01/21/22 (Lidoderm) ea naloxone 4 mg/actuation nasal 4 mg intranasal Q2M PRN opioid 03/23/22 spray (Narcan) overdose #2 ea gabapentin 300 mg capsule 600 mg PO BID 30 days #120 caps 04/03/22 (Neurontin) miconazole nitrate 2 % topical 1 spray topical BID #133 grams 04/16/22 spray powder immune glob,gamm(IgG) 10 %-pro-IgA 40 g IV .QMonth #400 mL 05/27/22 0 to 50 mcg/mL intravenous solution (Privigen) benzonatate 200 mg capsule 200 mg PO TID PRN cough 30 days 06/11/22 #60 caps doxycycline monohydrate 100 mg 100 mg PO BID 8 days #16 tabs 06/11/22 tablet nirmatrelvir 300 mg (150 mg See Rx Instructions PO .COMPLEX 5 06/11/22 x2)-ritonavir 100 mg tablet,dose days #30 ea pack(EUA) (Paxlovid) loperamide 2 mg capsule 2 mg PO Q6H PRN loose stool 2 06/16/22 (Anti-Diarrheal (loperamide)) weeks #60 caps pantoprazole 40 mg tablet,delayed 40 mg PO BID 2 weeks #28 tabs 06/16/22 release psyllium husk 3.4 gram/5.4 gram 1 tbsp PO BID 30 days #660 grams 06/16/22 oral powder (Metamucil) dicyclomine 20 mg tablet 20 mg PO QID PRN abdominal pain 06/27/22 #20 tabs sucralfate 100 mg/mL oral 10 ml PO QIDACHS 2 weeks #420 mL 06/30/22 suspension (Carafate) prednisone 20 mg tablet See Rx Instructions PO DAILY 10 07/10/22 days #15 tabs mweisizalafla-SS-mlxhnpnejeq 2.5 30 ml PO Q6-8H PRN cough #118 mL 07/21/22 mg-5 mg-50 mg/5 mL oral liquid (Robitussin Cough and Cold CF) oxycodone 5 mg tablet 5 mg PO TID PRN pain, severe 30 07/29/22 days #90 tabs apixaban 2.5 mg tablet (Eliquis) 2.5 mg PO BID #180 tabs 08/06/22 Allergies Allergy/AdvReac Type Severity Reaction Status Date / Time No Known Allergies Allergy Verified 08/06/22 14:35 Review of Systems Review of Systems: Yes all other systems are reviewed and are negative [facility] Past Medical History Medical History Anemia Arthritis Asthma Asthma exacerbation Asthma-COPD overlap syndrome Back pain Bronchitis Chronic pain syndrome Complex regional pain syndrome i of left lower limb Cough Depression Diabetic neuropathy Diet-controlled diabetes mellitus Disc degeneration, lumbosacral Dizziness Elevated lactic acid level Essential hypertension Fibromyalgia Headache Headache, migraine Hypogammaglobulinemia Hypothyroidism Laryngotracheitis Low back pain Morbid obesity Nausea vomiting and diarrhea BABATUNDE (obstructive sleep apnea) Osteoporosis Pleuritic chest pain 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 Pulmonary embolism Sleep apnea Spondylosis of cervical spine 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 TIA (transient ischemic attack) Type 2 diabetes mellitus with unspecified complications Surgical History History of bariatric surgery History of cholecystectomy History of esophagogastroduodenoscopy (EGD) Hx of colonoscopy S/P total abdominal hysterectomy Family History Family History Mother Diabetes Stroke Family/Other Diabetes Father Diabetes Maternal Aunt Cancer Social History Social History Household Members: None Housing: House Are you a primary adult day care worker to a significant other at home: No Do you presently have visiting nurse or other home services: No Alcohol intake: never Patient Tobacco Use Status: Never used Tobacco e-Cigarette/Vaping Use: Never Used Second Hand Smoke Exposure: No Advance Directives: No Advance Directives Information Provided: No Advance Directives Date on File: 05/23/21 service: No Current occupational status: unemployed and disabled Physical Exam Vital Signs: Vital Signs: Last Vital Signs Temp 98.7 F 08/21/22 03:58 Pulse 64 08/21/22 03:58 Resp 24 H 08/21/22 03:58 BP 104/64 08/21/22 03:58 Pulse Ox 100 08/21/22 03:58 O2 Del Method 08/21/22 02:34 O2 Flow Rate 5 08/21/22 03:58 BMI result Body Mass Index 54.5 Appearance: Alert. Oriented X3. No acute distress. Eyes: PERRLA, No Nystagmus ENT: Pharynx normal. Oral Mucosa moist Neck: Normal inspection. Neck supple. CVS: Normal heart rate and rhythm. Pulses normal. Respiratory: No respiratory distress. Equal air entry bilateral, frequent cough bilateral wheezing, left chest wall tenderness+ Abdomen: Soft and nontender. Bowel sounds are present, no mass palpable, no CVA tenderness Skin: Skin warm and dry. Normal skin color. Normal skin turgor. Extremities: No lower extremity edema. No calf tenderness Neuro: Oriented X 3. No motor deficit. No sensory deficit.No cerebellar signs , cranial nerves II-XII intact MDM - SOB/Dyspnea MDM Narrative Medical decision making narrative: Patient with significant COPD-asthma overlap syndrome with frequent ER visits and admission last admission was 06/21 been feeling very short of breath at this time with frequent cough requesting to stay in the hospital as she tried her nebulizing treatment at home without much relief patient received IV Solu-Medrol magnesium still coughing while talking to her will admit patient for acute exacerbated of asthma/COPD overlap syndrome Differential Diagnosis Differential diagnosis: Likely acute exacerbation of chronic obstructive airways disease, congestive heart failure, pneumonia and asthma with exacerbation Lab Data Attestation: I reviewed the patient's lab results. Result diagrams: 08/21/22 02:53 08/21/22 02:53 Labs: Lab Results 08/21/22 08/21/22 08/21/22 Range/Units 02:45 02:53 02:53 WBC 8.1 (4.8-10.8) X10*3/uL RBC 4.28 (4.20-5.50) X10*6/uL Hgb 11.6 L (12.0-16.0) g/dl Hct 36.7 L (37.0-47.0) % MCV 85.7 (80.0-98.0) fL MCH 27.1 (27.0-33.0) pg MCHC 31.6 (31.0-35.0) g/dl RDW 15.9 (11.0-16.0) % Plt Count 351 (160-400) X10*3/uL MPV 8.7 L (9.4-12.3) fL Absolute Nucleated RBC 0.000 (0.0-0.012) X10*3/uL Nucleated RBC % (auto) 0.0 (0.0-0.2) /100WBC Sodium 141 (135-145) mmol/L Potassium 4.5 (3.3-5.1) mmol/L Chloride 109 H (96-108) mmol/L Carbon Dioxide 21 L (22-29) mmol/L Anion Gap 16 (12-20) BUN 18 H (9-16) mg/dL Creatinine 1.06 (0.5-1.4) mg/dL Estim Creat Clear Calc 72.5 Estimated GFR 54 Random Glucose 85 (60-115) mg/dL Calcium 10.0 (8.4-10.2) mg/dL Total Bilirubin 0.2 (0.0-1.0) mg/dL AST 14 (5-31) U/L ALT 7 (0-31) U/L Alkaline Phosphatase 89 (39-117) U/L Total Protein 6.4 L (6.5-8.0) g/dL Albumin 3.9 (3.5-5.0) g/dL Influenza Type A (PCR) NEGATIVE (Negative) Influenza Type B (PCR) NEGATIVE (Negative) RSV RNA Qual (PCR) NEGATIVE (Negative) SARS-CoV-2 RNA (RT-PCR) NEGATIVE (Negative) Discharge Plan Discharge Clinical Impression: Asthma, Asthma-COPD overlap syndrome, Asthma exacerbation attacks Patient Disposition: Admitted As Inpatient
[2022-08-21 02:58] LABS: Hematocrit 36.7 % (37.0-47.0); Hemoglobin 11.6 g/dl (12.0-16.0); Mean Corpuscular HGB Conc 31.6 g/dl (31.0-35.0); Mean Corpuscular Hemoglobin 27.1 pg (27.0-33.0); Mean Corpuscular Volume 85.7 fL (80.0-98.0); Mean Platelet Volume 8.7 fL (9.4-12.3); Platelet Count 351 X10*3/uL (160-400); Red Blood Count 4.28 X10*6/uL (4.20-5.50); Red Cell Distribution Width 15.9 % (11.0-16.0); White Blood Count 8.1 X10*3/uL (4.8-10.8)
[2022-08-21 03:23] LABS: Alanine Aminotransferase 7 U/L (0-31); Albumin Level 3.9 g/dL (3.5-5.0); Alkaline Phosphatase 89 U/L (39-117); Anion Gap 16 (12-20); Aspartate Amino Transferase 14 U/L (5-31); Bilirubin Total 0.2 mg/dL (0.0-1.0); Blood Urea Nitrogen 18 mg/dL (9-16); Carbon Dioxide 21 mmol/L (22-29); Chloride 109 mmol/L (96-108); Creatinine Clr Calc Pharmacy 72.5; Estimated Glomerular Filt Rate 54; Glucose Random 85 mg/dL (60-115); Potassium 4.5 mmol/L (3.3-5.1); Sodium 141 mmol/L (135-145); Total Protein 6.4 g/dL (6.5-8.0)
[2022-08-21] MEDS: guaiFEN/Codeine SF 200/20/10ML 10 ML LIQUID PO (03:26)
[2022-08-21 03:29] LABS: Influenza A PCR NEGATIVE (Negative); Influenza B PCR NEGATIVE (Negative); Resp Syncy Virus RNA Qual PCR NEGATIVE (Negative); SARS COV2 PCR INHOUSE NEGATIVE (Negative)
[2022-08-21] MEDS: Albuterol Sulfate 5 MG, Albuterol/Iprat 2.5/0.5MG 3 ML 3 ML INHALE (03:29)
[2022-08-21] MEDS: Magnesium Sulfate/H2O 2 GM/50 ML PIGGYBACK IV (03:33)
[2022-08-21] MEDS: Morphine Sulfate 4 MG/ML CARTRIDGE IVPUSH (03:33)
[2022-08-21] MEDS: methylPREDNISolone Sod Succ 125 MG/2 ML VIAL IVPUSH (03:33)
[2022-08-21 05:59] LABS: Lactic Acid 2.7 mmol/L (0.5-2.0)
[2022-08-21 06:01] LABS: Lipase 17 U/L (8-78)
[2022-08-21 06:19] LABS: Venous Blood Gas Refer to POC result
[2022-08-21 06:21] LABS: VBG Base Excess -6.2 mmol/L; VBG HCO3 16 mmol/L (22-26); VBG pCO2 25 mmHg; VBG pH 7.42 (7.32-7.43); VBG pO2 96 mmHg
[2022-08-21] MEDS: 0.9 % Sodium Chloride 1,000 ML 999 ML IV (06:22)
[2022-08-21] MEDS: cefTRIAXone sodium 1 GM in 0.9 % Sodium Chloride 50 ML IV (06:22)
[2022-08-21] MEDS: Enoxaparin Sodium 40 MG/0.4 ML SYRINGE SUBCUT (06:22)
--- NOTE | 2022-08-21 07:01 | P.HPHOSP_ITS ---
History of Present Illness Date of Service: 08/21/22 Chief Complaint: cough Patient is [place]-speaking, history is obtained with the help of an equal opportunity officer 52-year-old female with past medical history of asthma COPD overlap syndrome, BABATUNDE diabetes, HTN, TIA, hypothyroidism, fibromyalgia, hypogammaglobinemia, and history of PE presents to the hospital with complaints of persistent cough, shortness of breath, for the 1 week. Denies any fever or chills. Patient reports epigastric abdominal pain radiating to the back, nausea with no vomiting, diarrhea, denies any chest pain, no palpitations, no lower extremity edema. complaints of urinary burning for 3 days. On arrival to the ED patient hemodynamically stable with no significant abnormal vitals Labs are significant for WBC count of 2.7 otherwise COVID and influenza negative, lipase negative Chest x-ray shows no acute findings Review of Systems Review of Systems: Yes all other systems are reviewed and are negative PMFSH Medical History Anemia Arthritis Asthma Asthma exacerbation Asthma-COPD overlap syndrome Back pain Bronchitis Chronic pain syndrome Complex regional pain syndrome i of left lower limb Cough Depression Diabetic neuropathy Diet-controlled diabetes mellitus Disc degeneration, lumbosacral Dizziness Elevated lactic acid level Essential hypertension Fibromyalgia Headache Headache, migraine Hypogammaglobulinemia Hypothyroidism Laryngotracheitis Low back pain Morbid obesity Nausea vomiting and diarrhea BABATUNDE (obstructive sleep apnea) Osteoporosis Pleuritic chest pain 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 Pulmonary embolism Sleep apnea Spondylosis of cervical spine 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 TIA (transient ischemic attack) Type 2 diabetes mellitus with unspecified complications Family History Mother Diabetes Stroke Family/Other Diabetes Father Diabetes Maternal Aunt Cancer Surgical History History of bariatric surgery History of cholecystectomy History of esophagogastroduodenoscopy (EGD) Hx of colonoscopy S/P total abdominal hysterectomy Social History Household Members: None Housing: House Are you a primary resident care assistant to a significant other at home: No Do you presently have visiting nurse or other home services: No Alcohol intake: never Patient Tobacco Use Status: Never used Tobacco e-Cigarette/Vaping Use: Never Used Second Hand Smoke Exposure: No Advance Directives: No Advance Directives Information Provided: No Advance Directives Date on File: 05/23/21 service: No Current occupational status: unemployed and disabled Meds Allergies Allergy/AdvReac Type Severity Reaction Status Date / Time No Known Allergies Allergy Verified 08/06/22 14:35 Active Medications: Current Medications Acetaminophen (Acetaminophen 325 Mg Tablet) 650 mg PO Q6H PRN PRN Reason: Pain, Mild (Pain Scale 1-3) Benzonatate (Benzonatate 100 Mg Capsule) 100 mg PO TID PRN PRN Reason: Cough Docusate Sodium (Docusate Sodium 100 Mg Capsule) 100 mg PO DAILY PRN PRN Reason: Constipation Enoxaparin Sodium (Enoxaparin Sodium 40 Mg/0.4 Ml Syringe) 40 mg SUBCUT Q24H [facility] Last Admin: 08/21/22 06:22 Dose: 40 mg Ondansetron HCl (Ondansetron Hcl 4 Mg/2 Ml Vial) 4 mg IVPUSH Q8H PRN PRN Reason: Nausea and Vomiting Pharmacy Consult (Consult Rx Perform Med Rec) 1 each MISCELLANE ONCE PRN PRN Reason: Consult order Sodium Chloride (0.9 % Sodium Chloride Flush 3 Ml Syringe) [address] [facility] Home Medications Medication Instructions Recorded Confirmed Last Taken Type montelukast 10 mg tablet 10 mg PO BEDTIME 08/02/20 08/21/22 11/11/21 History cyanocobalamin (vitamin B-12) 1,000 mcg PO DAILY 11/05/20 08/06/22 11/11/21 History 1,000 mcg tablet hydroxyzine HCl 25 mg tablet 1 tab PO TID PRN Anxiety 12/12/20 08/06/22 11/11/21 History cholecalciferol (vitamin D3) 25 25 mcg PO DAILY 03/19/21 08/06/22 11/11/21 History mcg (1,000 unit) tablet umeclidinium 62.5 mcg-vilanterol 1 puff inhalation DAILY 10/12/21 08/06/22 11/11/21 History 25 mcg/actuation powdr for inhalation (Anoro Ellipta) zolpidem 10 mg tablet 1 tab PO BEDTIME PRN Insomnia 11/12/21 08/21/22 11/11/21 History quetiapine 400 mg tablet (Seroquel) 400 mg PO BEDTIME 06/02/22 08/21/22 Unknown History tobramycin 0.3 %-dexamethasone 0.1 2 drp ophthalmic (eye) QID 06/02/22 08/06/22 Unknown History % eye drops,suspension Physical Exam Vital Signs and Narrative: Vital Signs: Last Vital Signs Temp 98.3 F 08/21/22 05:54 Pulse 77 08/21/22 05:54 Resp 20 08/21/22 05:54 BP 118/59 L 08/21/22 05:54 Pulse Ox 97 08/21/22 05:54 O2 Del Method 08/21/22 05:54 O2 Flow Rate 5 08/21/22 03:58 BMI result Body Mass Index 54.5 Const: General: cooperative and no acute distress Orientation/consciousness: patient oriented x3 Eyes: General: appearance normal, both eyes and all related structures Pupils: Equal, round and reactive pupils present Resp: Effort & Inspection: normal respiratory effort Auscultation: clear to auscultation bilaterally Cardio: Rate: regular rate Rhythm: regular rhythm GI: Other: epigastric tenderness, no rebound or guarding Palpation (GI): Soft to palpation Auscultation: normal bowel sounds Skin: General skin exam: no rashes or lesions noted Neuro: General: patient oriented x3 Cranial nerves: Yes Equal, round and reactive pupils present Cognition (Neuro): normal cognition Extrem: General: Yes normal to inspection and Yes no pedal edema Results Labs CBC and Chem 7: 08/21/22 02:53 08/21/22 02:53 Labs: Laboratory Results - last 24 hr 08/21/22 08/21/22 08/21/22 02:45 02:53 02:53 MCV 85.7 MCH 27.1 MCHC 31.6 RDW 15.9 Plt Count 351 MPV 8.7 L Absolute Nucleated RBC 0.000 Nucleated RBC % (auto) 0.0 VBG pH VBG pCO2 VBG pO2 VBG HCO3 VBG O2 Saturation VBG Base Excess Anion Gap 16 Estim Creat Clear Calc 72.5 Estimated GFR 54 Random Glucose 85 Lactic Acid Calcium 10.0 Total Bilirubin 0.2 AST 14 ALT 7 Alkaline Phosphatase 89 Total Protein 6.4 L Albumin 3.9 Lipase 17 Influenza Type A (PCR) NEGATIVE Influenza Type B (PCR) NEGATIVE RSV RNA Qual (PCR) NEGATIVE SARS-CoV-2 RNA (RT-PCR) NEGATIVE 08/21/22 08/21/22 05:35 05:57 MCV MCH MCHC RDW Plt Count MPV Absolute Nucleated RBC Nucleated RBC % (auto) VBG pH 7.42 VBG pCO2 25 VBG pO2 96 VBG HCO3 16 L VBG O2 Saturation 96.0 VBG Base Excess -6.2 Anion Gap Estim Creat Clear Calc Estimated GFR Random Glucose Lactic Acid 2.7 H* Calcium Total Bilirubin AST ALT Alkaline Phosphatase Total Protein Albumin Lipase Influenza Type A (PCR) Influenza Type B (PCR) RSV RNA Qual (PCR) SARS-CoV-2 RNA (RT-PCR) Imaging Radiologist's Impressions: Impressions Chest X-Ray 08/21/22 02:40 IMPRESSION: No acute findings Assessment and Plan (1) Asthma exacerbation attacks: Status: Acute (2) Persistent cough: Status: Acute (3) Abdominal pain: Status: Acute Plan 52-year-old female past medical history of asthma presents to the hospital with persistent cough as well as abdominal pain # asthma exacerbation - has persistent cough, no sputum production, evidence of COVID infection, no influenza of the chest x-ray negative - will treat with DuoNeb, Solu-Medrol - cough meds - monitor respiratory status # abdominal pain - epigastric abdominal pain radiating to the back - lipase negative - will obtain abdominal CT # dysuria - will obtain UA - no leukocytosis, no evidence of infection # history of PE - continue Eliquis, DVT prophylaxis: Continue Eliquis Quality Stroke Does the patient have a stroke diagnosis?: No VTE Prior VTE?: No VTE Risk Level:: Medical - moderate - high VTE Device Contraindication: Treatment Not Indicated VTE Drug Contraindication: N/A - Med Ordered
[2022-08-21 07:21] LABS: Glucose, Whole Blood 139 mg/dL (60-115)
[2022-08-21] MEDS: Albuterol/Iprat 2.5/0.5MG 3 ML AMPUL.NEB INHALE ×2 (07:32→15:36)
[2022-08-21 07:44] LABS: Reflex Lactate? Lactic Acid Added
[2022-08-21] MEDS: Lactated Ringers 1,000 ML 100 ML IVCONT ×2 (07:52→17:21)
--- NOTE | 2022-08-21 08:13 | PHA.MEDREC ---
Pharmacy Consult ? Medication Reconciliation Pharmacy has reviewed the medication reconciliation completed by Chayito. Patient reports taking Eliqiuis 2.5 mg, and that it was just decreased by Dr. Rios. Multiple medications added to the list. Patient takes oxycodone 5 mg TID instead of schedule. Dr. Abbasi has been updated. Patient is unsure of current inhaler. Chidi Estrada
[2022-08-21] MEDS: oxyCODONE HCl Immed Release 5 MG TABLET PO ×3 (08:41→20:16)
[2022-08-21] MEDS: Apixaban 2.5 MG TABLET PO ×2 (08:41→20:16)
[2022-08-21] MEDS: Gabapentin 300 MG CAPSULE 600 MG PO ×2 (08:41→20:16)
[2022-08-21] MEDS: 0.9 % Sodium Chloride Flush 3 ML SYRINGE IVFLUSH (08:43)
[2022-08-21] MEDS: methylPREDNISolone Sod Succ 40 MG/ML VIAL IVPUSH ×2 (11:04→21:51)
[2022-08-21 11:55] LABS: Appearance Urine Clear; Color Urine Yellow; Glucose Urine UA Negative (Negative); Leukocyte Esterase Urine Trace (Negative); Nitrite Urine Negative (Negative); PH 5.5 (5.0-9.0); Specific Gravity - Urine >= 1.030 (1.005-1.025); UMIC TRIGGER UACC YES; Urine Blood Negative (Negative); Urine Ketones Trace mg/dL (Negative); Urine Protein Trace mg/dL (Neg-Trace)
[2022-08-21 12:02] LABS: Bacteria Urine None Seen (None Seen); Hyaline Casts Urine 0-2 /LPF (0-2); RBC Urine 0-2 /HPF (0-2); Squamous Epithelial Cell Urine 0-2 /HPF (0-2); WBC Urine 0-5 /HPF (0-5)
[2022-08-21 13:48] LABS: Glucose, Whole Blood 112 mg/dL (60-115)
[2022-08-21] MEDS: Acetaminophen 325 MG TABLET 650 MG PO ×2 (14:17→20:17)
[2022-08-21] MEDS: Benzonatate 100 MG CAPSULE PO ×2 (14:23→21:51)
--- NOTE | 2022-08-21 15:32 | PM.EVENT ---
Event Note Date of Service: 08/21/22 Event Note: Patient seen by and examined by hospitalist team this morning Abdominal pain is slightly better than before Feels nauseated but no vomiting Physical exam similar to this morning Except abdominal pain is seem improving Assessment plan: Coordinated in H&P note Continue current management has dry cough -added cough medication, Respiratory panel Added laxatives because CT abdomen is negative has some stool burden possible constipation-added laxatives.
[2022-08-21] MEDS: guaiFENesin 100 MG/5 ML LIQUID 10 ML PO (16:35)
[2022-08-21 17:13] LABS: Adenovirus PCR Not Detected (Not Detect.); Bordetella parapertussis PCR Not Detected (Not Detect.); Bordetella pertussis PCR Not Detected (Not Detect.); Chlamydia pneumoniae PCR Not Detected (Not Detect.); Coronavirus 229E PCR Not Detected (Not Detect.); Coronavirus HKU1 PCR Not Detected (Not Detect.); Coronavirus NL63 PCR Not Detected (Not Detect.); Coronavirus OC43 PCR Not Detected (Not Detect.); Human metapneumovirus PCR Not Detected (Not Detect.); Influenza A PCR Not Detected (Not Detect.); Influenza B PCR Not Detected (Not Detect.); Mycoplasma pneumoniae PCR Not Detected (Not Detect.); Parainfluenza 1 PCR Not Detected (Not Detect.); Parainfluenza 2 PCR Not Detected (Not Detect.); Parainfluenza 3 PCR Not Detected (Not Detect.); Parainfluenza 4 PCR Not Detected (Not Detect.); RSV PCR Not Detected (Not Detect.); Rhino/Enterovirus PCR Not Detected (Not Detect.); SARS-CoV-2 PCR Not Detected (Not Detect.)
[2022-08-21] MEDS: HYDROcodone/Homat 5/1.5/5 ML 5 ML SYRUP 10 ML PO (17:20)
--- NOTE | 2022-08-21 20:08 | PC.NURSE ---
pt ambulatory to bathroom. report called to director of sports medicine. pt going to bed [id number]. waiting for transport
[2022-08-21] MEDS: Docusate Sodium 100 MG CAPSULE PO (20:16)
[2022-08-21] MEDS: Zolpidem Tartrate 5 MG TABLET PO (20:16)
[2022-08-21] MEDS: Montelukast Sodium 10 MG TABLET PO (20:17)
--- NOTE | 2022-08-21 20:20 | PC.NURSE ---
bedtime 21:00 meds given per patient request. seroquel not available in overflow pyxus.
[2022-08-21] MEDS: QUEtiapine Fumarate 400 MG TABLET PO (21:51)
[2022-08-21 22:10] LABS: Glucose, Whole Blood 106 mg/dL (60-115)
[2022-08-22] VITALS (8 sets, daily range): BP systolic 101–135; BP diastolic 58–66; PULSE 50–104; RESP 14–20; TEMP 36.2–36.6; O2SAT 95–99
[2022-08-22] MEDS: Lactated Ringers 1,000 ML 100 ML IVCONT ×2 (00:30→10:49)
[2022-08-22] MEDS: guaiFENesin 100 MG/5 ML LIQUID 10 ML PO (05:06)
[2022-08-22] MEDS: Acetaminophen 325 MG TABLET 650 MG PO ×2 (05:06→13:23)
[2022-08-22] MEDS: Albuterol/Iprat 2.5/0.5MG 3 ML AMPUL.NEB INHALE ×2 (05:14→20:02)
[2022-08-22] MEDS: Enoxaparin Sodium 40 MG/0.4 ML SYRINGE SUBCUT (05:36)
[2022-08-22 07:31] LABS: Glucose, Whole Blood 120 mg/dL (60-115)
[2022-08-22] MEDS: methylPREDNISolone Sod Succ 40 MG/ML VIAL IVPUSH ×2 (08:13→20:13)
[2022-08-22] MEDS: Gabapentin 300 MG CAPSULE 600 MG PO ×2 (08:13→20:13)
[2022-08-22] MEDS: Docusate Sodium 100 MG CAPSULE PO (08:14)
[2022-08-22] MEDS: oxyCODONE HCl Immed Release 5 MG TABLET PO ×3 (08:14→20:13)
[2022-08-22] MEDS: Apixaban 2.5 MG TABLET PO ×2 (08:14→20:15)
[2022-08-22] MEDS: 0.9 % Sodium Chloride Flush 3 ML SYRINGE IVFLUSH ×2 (08:15→20:17)
[2022-08-22] MEDS: Benzonatate 100 MG CAPSULE PO ×2 (08:23→16:30)
[2022-08-22 11:34] LABS: Glucose, Whole Blood 123 mg/dL (60-115)
--- NOTE | 2022-08-22 12:45 | P.PNIM_ITS ---
Subjective Subjective Date of Service: 08/22/22 Interval History: asthma exacerbation,cough, constipation Review of Systems Still having aggressive cough Abdominal pain is slightly better but still did not pass significant bowel movement 1 very small bm Denies any chest pain or dizziness Or fever Physical Exam Vital Signs: Vital Signs: Last Vital Signs Temp 97.5 F 08/22/22 11:04 Pulse 68 08/22/22 11:04 Resp 20 08/22/22 11:04 BP 119/66 08/22/22 11:04 Pulse Ox 98 08/22/22 11:04 O2 Del Method 08/22/22 11:04 O2 Flow Rate 1 08/22/22 07:33 BMI result Body Mass Index 37.4 Appearance: Alert.? Oriented X3.? Aggressive cough, short of breath with talking..? cvs: rrr, [id number] , no murmur res: clear to auscultation ,s/l wheezing abd: no rebound or guarding , epigastric discomfort /? coughing agressively, bs present. ext pulses present , no cyanosis ,Gait well balanced well coordinated. neuro: axo3 , nonfocal. Objective Data Active Medications Acetaminophen (Acetaminophen 325 Mg Tablet) 650 mg PO Q6H PRN PRN Reason: Pain, Mild (Pain Scale 1-3) Last Admin: 08/22/22 05:06 Dose: 650 mg Documented By: HOLDEN Albuterol Sulfate (Albuterol Sulfate 90 Mcg 8 Gm Inhaler) 1 puff INHALE QID PRN PRN Reason: shortness of breath or wheezing Albuterol/Ipratropium (Albuterol/Iprat 2.5/0.5mg 3 Ml Ampul.Neb) 3 ml INHALE RQ4H PRN PRN Reason: Shortness of Breath/Wheezing Last Admin: 08/22/22 05:14 Dose: 3 ml Documented By: MARILEE Albuterol/Ipratropium (Albuterol/Iprat 2.5/0.5mg 3 Ml Ampul.Neb) 3 ml INHALE RQ4H WHILE AWAKE [facility] Last Admin: 08/22/22 12:03 Dose: Not Given Documented By: DARNELL Non-Admin Reason: Patient Refused Apixaban (Apixaban 2.5 Mg Tablet) 2.5 mg PO BID [facility] Last Admin: 08/22/22 08:14 Dose: 2.5 mg Documented By: SALVADOR Benzonatate (Benzonatate 100 Mg Capsule) 100 mg PO TID PRN PRN Reason: Cough Last Admin: 08/22/22 08:23 Dose: 100 mg Documented By: SALVADOR Bisacodyl (Bisacodyl 10 Mg Supp.Rect) 10 mg ID DAILY [facility] Last Admin: 08/22/22 08:15 Dose: Not Given Documented By: SALVADOR Non-Admin Reason: Patient Refused Docusate Sodium (Docusate Sodium 100 Mg Capsule) 100 mg PO DAILY PRN PRN Reason: Constipation Docusate Sodium (Docusate Sodium 100 Mg Capsule) 100 mg PO BID [facility] Last Admin: 08/22/22 08:14 Dose: 100 mg Documented By: SALVADOR Enoxaparin Sodium (Enoxaparin Sodium 40 Mg/0.4 Ml Syringe) 40 mg SUBCUT Q24H [facility] Last Admin: 08/22/22 05:36 Dose: 40 mg Documented By: HOLDEN Gabapentin (Gabapentin 300 Mg Capsule) 600 mg PO BID [facility] Last Admin: 08/22/22 08:13 Dose: 600 mg Documented By: SALVADOR Guaifenesin (Guaifenesin 100 Mg/5 Ml Liquid) 10 ml PO Q4H PRN PRN Reason: Cough Last Admin: 08/22/22 05:06 Dose: 10 ml Documented By: HOLDEN Lactated Ringer's (Lr) 1,000 mls @ 100 mls/hr IVCONT .Q10H [facility] Last Admin: 08/22/22 10:49 Dose: 100 mls/hr Documented By: SALVADOR Methylprednisolone Sodium Succinate (Methylprednisolone Sod Succ 40 Mg/Ml Vial) 40 mg IVPUSH Q12H [facility] Last Admin: 08/22/22 08:13 Dose: 40 mg Documented By: SALVADOR Montelukast Sodium (Montelukast Sodium 10 Mg Tablet) 10 mg PO BEDTIME [facility] Last Admin: 08/21/22 20:17 Dose: 10 mg Documented By: KARAN Naloxone HCl (Naloxone Hcl Nasal 4 Mg [place]) 4 mg NOSTRILALT Q2M PRN PRN Reason: opioid overdose Ondansetron HCl (Ondansetron Hcl 4 Mg/2 Ml Vial) 4 mg IVPUSH Q8H PRN PRN Reason: Nausea and Vomiting Oxycodone HCl (Oxycodone Hcl Immed Release 5 Mg Tablet) 5 mg PO TID [facility] Last Admin: 08/22/22 08:14 Dose: 5 mg Documented By: SALVADOR Pharmacy Consult (Consult Rx Perform Med Rec) 1 each MISCELLANE ONCE PRN PRN Reason: Consult order Polyethylene Glycol (Polyethylene Glycol 3350 17 Gm Powd.Pack) 17 gm PO BID [facility] Quetiapine Fumarate (Quetiapine Fumarate 400 Mg Tablet) 400 mg PO BEDTIME [facility] Last Admin: 08/21/22 21:51 Dose: 400 mg Documented By: CASTILDaisha Sodium Chloride (0.9 % Sodium Chloride Flush 3 Ml Syringe) 3 ml IVFLUSH QSHIFT [facility] Last Admin: 08/22/22 08:15 Dose: 3 ml Documented By: SALVADOR Zolpidem Tartrate (Zolpidem Tartrate 5 Mg Tablet) 5 mg PO BEDTIME [facility] Last Admin: 08/21/22 20:16 Dose: 5 mg Documented By: KARAN Labs CBC & Chem 7: 08/21/22 02:53 08/21/22 02:53 Labs: Laboratory Results - last 24 hr 08/21/22 08/21/22 08/21/22 12:18 13:41 22:05 POC Glucose 112 106 Respiratory Panel Tellez Cancelled Adenovirus (Rapid PCR) Cancelled B.pert (TEM-PCR) Cancelled B.parapertussis DNA PCR Cancelled C. pneumoniae DNA (PCR) Cancelled Coronavirus OC43 (PCR) Cancelled Coronavirus HKU1 (PCR) Cancelled Coronavirus 229E (PCR) Cancelled Coronavirus NL63 (PCR) Cancelled Human Metapneumovir PCR Cancelled Influenza A (RT-PCR) Cancelled Influenza B (RT-PCR) Cancelled M. pneumoniae (PCR) Cancelled Parainfluenza 1 (PCR) Cancelled Parainfluenza 2 (PCR) Cancelled Parainfluenza 3 (PCR) Cancelled Parainfluenza 4 (PCR) Cancelled RSV (PCR) Cancelled Entero/Rhino (PCR) Cancelled SARS-CoV-2 RNA (RT-PCR) Cancelled 08/21/22 08/22/22 08/22/22 Unknown 07:13 11:08 POC Glucose 120 H 123 H Respiratory Panel Tellez See Note Adenovirus (Rapid PCR) Not Detected B.pert (TEM-PCR) Not Detected B.parapertussis DNA PCR Not Detected C. pneumoniae DNA (PCR) Not Detected Coronavirus OC43 (PCR) Not Detected Coronavirus HKU1 (PCR) Not Detected Coronavirus 229E (PCR) Not Detected Coronavirus NL63 (PCR) Not Detected Human Metapneumovir PCR Not Detected Influenza A (RT-PCR) Not Detected Influenza B (RT-PCR) Not Detected M. pneumoniae (PCR) Not Detected Parainfluenza 1 (PCR) Not Detected Parainfluenza 2 (PCR) Not Detected Parainfluenza 3 (PCR) Not Detected Parainfluenza 4 (PCR) Not Detected RSV (PCR) Not Detected Entero/Rhino (PCR) Not Detected SARS-CoV-2 RNA (RT-PCR) Not Detected Microbiology Microbiology Results: Microbiology 08/21/22 05:52 Blood Culture - Preliminary Blood - Venous No growth after 24 hours. 08/21/22 05:35 Blood Culture - Preliminary Blood - Venous No growth after 24 hours. Assessment and Plan (1) Abdominal pain: Status: Acute (2) Persistent cough: Status: Acute (3) Asthma exacerbation attacks: Status: Acute (4) Acute bronchitis: Status: Acute (5) Constipation: Status: Acute Plan 52-year-old female past medical history of asthma presents to the hospital with persistent cough as well as abdominal pain # asthma exacerbation/acute bronchitis - has persistent cough, no sputum production, evidence of COVID infection, no influenza of the chest x-ray negative - will treat with DuoNeb, Solu-Medrol,cough meds - monitor respiratory status # abdominal pain - epigastric abdominal pain radiating to the back - lipase negative ct neg added luxatives # dysuria - will obtain UA mild Lesterase paositive . # history of PE - continue Eliquis, Morbid obesity: Encouraged to lose weight. DVT prophylaxis:? Continue Eliquis Inpatient need:asthma exacerbation-and IV steroids, nebs,monitering respiratory status. Quality Stroke Does the patient have a stroke diagnosis?: No VTE Prior VTE?: No VTE Risk Level:: Medical - moderate - high VTE Device Contraindication: Treatment Not Indicated VTE Drug Contraindication: N/A - Med Ordered
[2022-08-22] MEDS: guaiFEN/Codeine SF 200/20/10ML 10 ML LIQUID PO (13:23)
[2022-08-22 15:46] LABS: Glucose, Whole Blood 118 mg/dL (60-115)
--- NOTE | 2022-08-22 16:12 | MHC.CM.PN ---
PT LIVES WITH HER S/O AND HAS 2 HOURS OF NECK SKEWER SERVICES DAILY SHE HAS A WALKER AND A CANE AT HOME HCP ON FILE PCP: OSMIN BOUCHER VAX: PFIZER X 3 & MODERNA X 1 OBSERVATION NOTICE DELIVERED DC PLAN, HOME RESUME NECK SKEWER SERVICES FAMILY TO TRANSPORT
[2022-08-22] MEDS: Omeprazole 20 MG CAPSULE.DR PO (16:30)
[2022-08-22] MEDS: Montelukast Sodium 10 MG TABLET PO (20:13)
[2022-08-22] MEDS: Zolpidem Tartrate 5 MG TABLET PO (20:13)
[2022-08-22] MEDS: QUEtiapine Fumarate 400 MG TABLET PO (20:13)
[2022-08-23] VITALS: BP 131/63; PULSE 51; RESP 16; TEMP 36; O2SAT 97
[2022-08-23] MEDS: Lactated Ringers 1,000 ML 100 ML IVCONT (01:32)
[2022-08-23 03:15] VITALS: BP 108/60; PULSE 56; RESP 16; TEMP 36.4; O2SAT 94
[2022-08-23] MEDS: Acetaminophen 325 MG TABLET 650 MG PO (05:31)
[2022-08-23] MEDS: Omeprazole 20 MG CAPSULE.DR PO (05:31)
[2022-08-23] MEDS: Enoxaparin Sodium 40 MG/0.4 ML SYRINGE SUBCUT (05:31)
[2022-08-23 07:16] VITALS: BP 130/61; PULSE 49; RESP 16; TEMP 36.9; O2SAT 93
[2022-08-23] MEDS: Albuterol/Iprat 2.5/0.5MG 3 ML AMPUL.NEB INHALE ×2 (07:36→11:26)
[2022-08-23 07:37] VITALS: PULSE 62; RESP 18; O2SAT 98
[2022-08-23 07:46] LABS: Glucose, Whole Blood 106 mg/dL (60-115)
[2022-08-23] MEDS: oxyCODONE HCl Immed Release 5 MG TABLET PO (09:26)
[2022-08-23] MEDS: Loratadine 10 MG TABLET PO (09:26)
[2022-08-23] MEDS: Docusate Sodium 100 MG CAPSULE PO (09:26)
[2022-08-23] MEDS: Apixaban 2.5 MG TABLET PO (09:26)
[2022-08-23] MEDS: Gabapentin 300 MG CAPSULE 600 MG PO (09:26)
[2022-08-23] MEDS: methylPREDNISolone Sod Succ 40 MG/ML VIAL IVPUSH (09:26)
[2022-08-23] MEDS: Benzonatate 100 MG CAPSULE PO (09:34)
--- NOTE | 2022-08-23 10:01 | PM.DS ---
DS: Providers Provider Date of Service: 08/23/22 Date of admission: 08/21/22 05:48 Primary care physician: Claudia Villatoro MD DS: Diagnosis Discharge Diagnosis (1) Abdominal pain: Status: Acute (2) Persistent cough: Status: Acute (3) Asthma exacerbation attacks: Status: Acute (4) Acute bronchitis: Status: Acute (5) Constipation: Status: Acute DS: Summary Hospital Course Hospital Course: 52-year-old female with past medical history of asthma COPD overlap syndrome, BABATUNDE diabetes, HTN, TIA, hypothyroidism, fibromyalgia, hypogammaglobinemia, and history of PE presents to the hospital with complaints of persistent cough, shortness of breath, for the 1 week.? Denies any fever or chills.? Patient reports epigastric abdominal pain radiating to the back, nausea with no vomiting, diarrhea, denies any chest pain, no palpitations, no lower extremity edema.? complaints of urinary burning for 3 days. On arrival to the ED patient hemodynamically stable with no significant abnormal vitals Labs are significant for WBC count of 2.7 otherwise COVID and influenza negative, lipase negative Chest x-ray shows no acute findings. Hospital course: Patient was admitted for asthma exacerbation with acute bronchitis started on steroids and nebs and feel better-sats improved. Going home with p.o. steroids. Constipation: Started on laxatives, producing bowels, continue laxatives at home. Advise strongly to encourage for fluid intake as well as mobility also to avoid constipation. plan: Complete course of steroidsand antibiotics. Follow-up with PCP. Above management discussed with the patient in detail length he understand and in agreement with the above plan, time spent 50 minutes and 50% time spent on counseling. Significant findings: As above. Procedures performed: None. Treatment and response: As above. Complications: None. Time Spent with Patient Time attestation: Total time spent providing and/or coordinating discharge services: Discharge coordination time: Greater than 30 minutes Quality: Safe Use of Opioids Does Pt have an Active Cancer Diagnosis on the Problem List?: No Quality: Stroke Does the patient have a stroke diagnosis?: No Physical Exam Vital Signs: Vital Signs: Last Vital Signs Temp 98.4 F 08/23/22 07:16 Pulse 62 08/23/22 07:37 Resp 18 08/23/22 07:37 BP 130/61 08/23/22 07:16 Pulse Ox 93 10/23/22 07:16 O2 Del Method 08/23/22 07:16 O2 Flow Rate 1 08/22/22 07:33 BMI result Body Mass Index 37.4 Appearance: Alert.? Oriented X3.? Aggressive cough, short of breath with talking..? cvs: rrr, [id number] , no murmur res: clear to auscultation ,s/l wheezing abd: no rebound or guarding ,nt,nd, bs present. ext pulses present , no cyanosis. neuro: axo3 , nonfocal DS: Data Data Completed and Pending Labs on day of discharge: Laboratory Results - last 24 hr 08/22/22 08/22/22 08/23/22 11:08 15:05 07:19 POC Glucose 123 H 118 H 106 Preliminary micro results at discharge 08/21/22 05:52 Blood Culture - Preliminary Blood - Venous No growth after 48 hours. 08/21/22 05:35 Blood Culture - Preliminary Blood - Venous No growth after 48 hours. Additional Comments Additional comments: CT/CT abdomen pelvis wo IV con IMPRESSION: ? No acute finding. Discharge Plan Discharge Patient Disposition: Home, Self-Care Discharge Diagnosis: Asthma exacerbation with acute bronchitis constipation Referrals: Claudia Villatoro MD [Primary Care Provider] - 1 Week Discharge Medications: New cefuroxime axetil 500 mg tablet 500 mg PO BID Qty: 10 0RF guaifenesin 100 mg/5 mL Liquid 200 mg PO Q4H PRN (Reason: Cough) Qty: 473 0RF polyethylene glycol 3350 17 gram Powder In Packet 17 g PO BID PRN (Reason: constipation) Qty: 30 0RF docusate sodium 100 mg Capsule 100 mg PO BID Qty: 30 0RF Continued gabapentin [Neurontin] 300 mg capsule 600 mg PO BID 30 Days Qty: 120 11RF hydroxyzine HCl 25 mg tablet 1 tab PO DAILY ondansetron 4 mg tablet,disintegrating 4 mg PO TID PRN (Reason: nausea and vomiting) 5 Days Qty: 10 0RF montelukast 10 mg tablet 10 mg PO BEDTIME Eliquis 2.5 mg Tablet 2.5 mg PO BID Qty: 180 0RF albuterol sulfate 90 mcg/actuation HFA aerosol inhaler 1 inh inhalation QID PRN (Reason: shortness of breath or wheezing) Qty: 18 0RF Anoro Ellipta 62.5-25 mcg/actuation blister with device 1 puff inhalation DAILY acetaminophen [Tylenol Extra Strength] 500 mg tablet 500 mg PO Q6H PRN (Reason: pain or fever) Qty: 20 0RF dicyclomine 20 mg tablet 20 mg PO QID PRN (Reason: abdominal pain) Qty: 20 0RF Robitussin Cough and Cold CF 2.5-5-50 mg/5 mL liquid 30 ml PO Q6-8H PRN (Reason: cough) Qty: 118 0RF escitalopram oxalate 10 mg tablet 1 tab PO DAILY prednisone 20 mg tablet 20 mg PO DAILY artificial tears with lanolin Ointment 1 appl OPHTHALMIC (EYE) DAILY PRN (Reason: Dry Eye(S)) miconazole nitrate 2 % Powder 1 appl TOPICAL BID PRN (Reason: Rash) Privigen 10 % solution 40 g IV QMONTH zolpidem 10 mg tablet 1 tab PO BEDTIME oxycodone 5 mg tablet 5 mg PO TID cholecalciferol (vitamin D3) 25 mcg (1,000 unit) tablet 25 mcg PO DAILY cyanocobalamin (vitamin B-12) 1,000 mcg tablet 1,000 mcg PO DAILY quetiapine [Seroquel] 400 mg tablet 400 mg PO BEDTIME Daliresp 500 mcg tablet 500 mcg PO DAILY 30 Days Qty: 30 12RF benzonatate 200 mg capsule 200 mg PO TID PRN (Reason: cough) 30 Days Qty: 60 3RF pantoprazole 40 mg tablet,delayed release (DR/EC) 40 mg PO BID 14 Days Qty: 28 0RF loperamide [Anti-Diarrheal (loperamide)] 2 mg capsule 2 mg PO Q6H PRN (Reason: loose stool) 14 Days Qty: 60 0RF Discharge Orders: Discharge Order (Routine); Ordered 08/23/22 Ordered By: Ann Santamaria Diet: Advance to usual diet Activity on Discharge: As tolerated Stand Alone Forms: Patient Portal Discharge page Care Plan Goals: Patient was admitted for asthma exacerbation started on steroids and nebs and feel better-sats improved. Going home with p.o. steroids. Constipation: Started on laxatives, producing bowels, continue laxatives at home. Advise strongly to encourage for fluid intake as well as mobility also to avoid constipation. Health Concerns: Complete course of steroidsand antibiotics. Follow-up with PCP. Plan of Treatment: As above. Assessment: As above.
--- NOTE | 2022-08-23 10:21 | MHC.CM.PN ---
PT TO DC HOME TODAY, NO SERVICES ORDERED FAMILY TO TRANSPORT
[2022-08-23 11:22] VITALS: BP 142/70; PULSE 52; RESP 18; TEMP 36.7; O2SAT 95
[2022-08-23 11:26] VITALS: PULSE 65; RESP 18; O2SAT 98
[2022-08-23 11:50] LABS: Glucose, Whole Blood 104 mg/dL (60-115)
== END 2022-08-23 12:27 | disposition home or self-care (01) ==
LOC: HO.ED 05:35 → HO.EDOVER 07:46 → HO.S3 19:27
PROVIDERS: Admitting Provider Internal Medicine; Emergency Provider Internal Medicine; PCP Internal Medicine; Visit Provider Internal Medicine
DX: J45.901 Unspecified asthma with (acute) exacerbation (principal); J20.9 Acute bronchitis, unspecified; K59.00 Constipation, unspecified; R05.3 Chronic cough; R10.9 Unspecified abdominal pain; I10 Essential (primary) hypertension; Z20.822 Contact with and (suspected) exposure to COVID-19; Z79.899 Other long term (current) drug therapy; Z23 Encounter for immunization
CPT/HCPCS: 0241U; 36415; 71046; 74176; 80053; 81001; 82803; 82947; 83605; 83690; 85027; 87040; 87633; 90471; 90686; 93005; 94640; 96365; 96366; 96372; 96375; 99218; 99285; J0696; J1650; J2270; J2920; J2930; J3475

== ENCOUNTER → 2022-08-26 10:45 | Outpatient (BNVA) | payer OTHER, SELFPAY | PROVIDERS: PCP Internal Medicine; Visit Provider Anesthesiology | DX: Z51.81 Encounter for therapeutic drug level monitoring (principal); F11.20 Opioid dependence, uncomplicated; M51.37 Other intervertebral disc degeneration, lumbosacral region; M47.816 Spondylosis without myelopathy or radiculopathy, lumbar region; M47.812 Spondylosis without myelopathy or radiculopathy, cervical region; M81.0 Age-related osteoporosis without current pathological fracture; M54.50 Low back pain, unspecified | CPT/HCPCS: 99212 ==

== ENCOUNTER 2022-09-03 09:34 | Emergency (ER) | payer OTHER, SELFPAY ==
--- NOTE | ~2022-09-03 | XR_ITS ---
EXAMINATION: XR CHEST CLINICAL INFORMATION: Cough and shortness of breath COMPARISON: 08/21/2022 TECHNIQUE: 2 views of the chest were obtained. FINDINGS: The lungs are well expanded. There is no focal consolidation, edema, or effusion. No pneumothorax. The cardiomediastinal silhouette is within normal limits. No acute osseous abnormality. Right upper quadrant surgical clips. XR/XR chest 2V IMPRESSION: Clear lungs.
[2022-09-03 10:17] VITALS: BP 116/65; PULSE 63; RESP 18; TEMP 36.9; O2SAT 98; BMI 34.1
[2022-09-03 10:30] LABS: MANUAL DIFF FLAG NO
[2022-09-03 10:31] LABS: Basophils Percent Auto 0.2 % (0-2); Eosinophils Percent Auto 0.1 % (0-4); Hematocrit 35.2 % (37.0-47.0); Hemoglobin 11.1 g/dl (12.0-16.0); Imm Gran Abs Auto 0.32 X10*3/uL (0.00-0.03); Imm Gran Pct Auto 2.7 % (0.0-0.4); Lymphocytes Absolute Auto 0.8 X10*3/uL (1.2-4.9); Lymphocytes Percent Auto 6.6 % (20-40); Mean Corpuscular HGB Conc 31.5 g/dl (31.0-35.0); Mean Corpuscular Hemoglobin 26.5 pg (27.0-33.0); Mean Platelet Volume 8.8 fL (9.4-12.3); Monocytes Absolute Auto 0.3 X10*3/uL (0.1-1.2); Monocytes Percent Auto 2.3 % (2-11); Neutrophils Absolute Auto 10.3 x10*3/uL (2.0-8.3); Neutrophils Percent Auto 88.1 % (45-73); Platelet Count 273 X10*3/uL (160-400); Red Blood Count 4.19 X10*6/uL (4.20-5.50); Red Cell Distribution Width 16.2 % (11.0-16.0); White Blood Count 11.7 X10*3/uL (4.8-10.8)
[2022-09-03 10:45] LABS: COVID-19 Test Positive (Negative)
[2022-09-03 10:50] LABS: Anion Gap 16 (12-20); Blood Urea Nitrogen 22 mg/dL (9-16); Calcium 9.5 mg/dL (8.4-10.2); Carbon Dioxide 22 mmol/L (22-29); Chloride 104 mmol/L (96-108); Creatinine Clr Calc Pharmacy 69.1; Estimated Glomerular Filt Rate > 60; Glucose Random 96 mg/dL (60-115); Potassium 4.6 mmol/L (3.3-5.1); Sodium 137 mmol/L (135-145)
--- NOTE | 2022-09-03 11:21 | ED.URI ---
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 Patient reports she tested positive for COVID at home. Also complaining feeling generally weak. No chest pain, fevers, leg swelling leg pain. Patient reports is no compliant with Eliquis. Related Data Home Medications Medication Instructions Recorded Confirmed montelukast 10 mg tablet 10 mg PO BEDTIME 08/02/20 08/21/22 cyanocobalamin (vitamin B-12) 1,000 mcg PO DAILY 11/05/20 08/21/22 1,000 mcg tablet hydroxyzine HCl 25 mg tablet 1 tab PO DAILY 12/12/20 08/21/22 cholecalciferol (vitamin D3) 25 25 mcg PO DAILY 03/19/21 08/21/22 mcg (1,000 unit) tablet umeclidinium 62.5 mcg-vilanterol 1 puff inhalation DAILY 10/12/21 08/21/22 25 mcg/actuation powdr for inhalation (Anoro Ellipta) quetiapine 400 mg tablet (Seroquel) 400 mg PO BEDTIME 06/02/22 08/21/22 artificial tears with lanolin eye 1 appl ophthalmic (eye) DAILY PRN 08/21/22 08/21/22 ointment Dry Eye(S) escitalopram oxalate 10 mg tablet 1 tab PO DAILY 08/21/22 08/21/22 immune glob,gamm(IgG) 10 %-pro-IgA 40 g IV QMONTH 08/21/22 08/21/22 0 to 50 mcg/mL intravenous solution (Privigen) miconazole nitrate 2 % topical 1 appl topical BID PRN Rash 08/21/22 08/21/22 powder prednisone 20 mg tablet 20 mg PO DAILY 08/21/22 08/21/22 zolpidem 10 mg tablet 1 tab PO BEDTIME 08/21/22 08/21/22 Previous Rx's Medication Instructions Recorded albuterol sulfate 90 mcg/actuation 1 inh inhalation QID PRN shortness 10/13/20 aerosol inhaler of breath or wheezing #18 grams ondansetron 4 mg disintegrating 4 mg PO TID PRN nausea and 05/23/21 tablet vomiting 5 days #10 tabs roflumilast 500 mcg tablet 500 mcg PO DAILY 30 days #30 tabs 11/03/21 (Daliresp) acetaminophen 500 mg tablet 500 mg PO Q6H PRN pain or fever 01/21/22 (Tylenol Extra Strength) #20 tabs gabapentin 300 mg capsule 600 mg PO BID 30 days #120 caps 04/03/22 (Neurontin) benzonatate 200 mg capsule 200 mg PO TID PRN cough 30 days 06/11/22 #60 caps loperamide 2 mg capsule 2 mg PO Q6H PRN loose stool 2 06/16/22 (Anti-Diarrheal (loperamide)) weeks #60 caps pantoprazole 40 mg tablet,delayed 40 mg PO BID 2 weeks #28 tabs 06/16/22 release dicyclomine 20 mg tablet 20 mg PO QID PRN abdominal pain 06/27/22 #20 tabs utlfpteiypavf-VN-dbiqqyjbbyc 2.5 30 ml PO Q6-8H PRN cough #118 mL 07/21/22 mg-5 mg-50 mg/5 mL oral liquid (Robitussin Cough and Cold CF) apixaban 2.5 mg tablet (Eliquis) 2.5 mg PO BID #180 tabs 08/06/22 cefuroxime axetil 500 mg tablet 500 mg PO BID #10 tabs 08/23/22 docusate sodium 100 mg capsule 100 mg PO BID #30 caps 08/23/22 guaifenesin 100 mg/5 mL oral liquid 200 mg (10 mL) PO Q4H PRN Cough 08/23/22 #473 mL polyethylene glycol 3350 17 gram 17 g PO BID PRN constipation #30 ea 08/23/22 oral powder packet oxycodone 5 mg tablet 5 mg PO TID PRN pain 30 days #90 08/26/22 tabs benzonatate 200 mg capsule 200 mg PO TID PRN cough #15 caps 09/03/22 prednisone 20 mg tablet 40 mg PO DAILY #8 tabs 09/03/22 Allergies Allergy/AdvReac Type Severity Reaction Status Date / Time No Known Allergies Allergy Verified 08/26/22 11:12 Review of Systems Review of Systems: Yes all other systems are reviewed and are negative Constitutional: Constitutional: Reports no additional constitutional complaints, Reports body ache(s), Denies chills, Denies fever(s), Reports headache(s) and Denies weakness Eyes: Eyes: Reports no additional eye complaints and Denies change in vision ENT: Reports system reviewed and no additional complaints, except as documented, Denies dizziness, Reports headache(s), Denies nasal congestion, Denies nasal discharge and Denies neck pain Cardiovascular: Cardiovascular: Reports no additional cardiovascular complaints, Denies chest pain, Denies leg edema and Denies dyspnea Respiratory: Respiratory: Reports no additional respiratory complaints, Reports cough, Denies dyspnea and Reports wheezing Gastrointestinal: Gastrointestinal: Reports no additional gastrointestinal complaints, Denies abdominal pain, Denies diarrhea, Denies nausea and Denies vomiting Genitourinary: Genitourinary: Reports no additional female genitourinary complaints and Denies urinary incontinence Musculoskeletal: Musculoskeletal: Reports no additional musculoskeletal complaints, Denies back pain, Denies arthralgias, Denies joint swelling, Denies neck pain, Denies numbness and Denies tingling Integumentary/Breasts: Skin/Breast: Reports system reviewed and no additional complaints, except as docu and Denies rash Neurologic: Reports system reviewed and no additional complaints, except as documented, Denies Abnormal speech present, Denies dizziness, Reports headache(s), Denies numbness, Denies tingling and Denies weakness Allergic/Immunologic: Allergic/Immunologic: Reports wheezing PMFSH Past Medical History Attestation statement: The following information was validated with the patient. Source: old records reviewed and nursing notes reviewed Medical History Anemia Arthritis Asthma Asthma exacerbation Asthma-COPD overlap syndrome Back pain Bronchitis Chronic pain syndrome Complex regional pain syndrome i of left lower limb Cough Depression Diabetic neuropathy Diet-controlled diabetes mellitus Disc degeneration, lumbosacral Dizziness Elevated lactic acid level Essential hypertension Fibromyalgia Headache Headache, migraine Hypogammaglobulinemia Hypothyroidism Laryngotracheitis Low back pain Morbid obesity Nausea vomiting and diarrhea BABATUNDE (obstructive sleep apnea) Osteoporosis Pleuritic chest pain 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 Pulmonary embolism Sleep apnea Spondylosis of cervical spine 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 TIA (transient ischemic attack) Type 2 diabetes mellitus with unspecified complications Surgical History History of bariatric surgery History of cholecystectomy History of esophagogastroduodenoscopy (EGD) Hx of colonoscopy S/P total abdominal hysterectomy Family History Family History Mother Diabetes Stroke Family/Other Diabetes Father Diabetes Maternal Aunt Cancer Social History Social History Household Members: Caregiver Housing: House Are you a primary director long term care to a significant other at home: No Do you presently have visiting nurse or other home services: No Alcohol intake: never Patient Tobacco Use Status: Never used Tobacco e-Cigarette/Vaping Use: Never Used Second Hand Smoke Exposure: No Advance Directives: No Advance Directives Information Provided: Yes Advance Directives Date on File: 05/23/21 service: No Current occupational status: unemployed and disabled Physical Exam Vital Signs: Vital Signs: Last Vital Signs Temp 98.5 F 09/03/22 10:17 Pulse 63 09/03/22 10:17 Resp 18 09/03/22 10:17 BP 116/65 09/03/22 10:17 Pulse Ox 98 09/03/22 10:17 O2 Del Method 09/03/22 10:17 BMI result Body Mass Index 34.1 Const: General: cooperative, healthy appearing, comfortable and no acute distress Orientation/consciousness: patient oriented x3 Limitations: no limitations HEENT: Head: Yes normal to inspection Ears: hearing grossly normal bilaterally and TM's normal bilaterally General nose exam: Normal external nose present Face and sinus: Yes normal facial exam Mouth: Normal oral and palatal mucosa present Throat: Yes posterior oropharynx normal, Yes tonsils normal and Yes uvula midline Eyes: General: appearance normal, both eyes and all related structures Pupils: Equal, round and reactive pupils present Neck: Neck: Yes normal visual inspection Chest: Chest palpation & inspection: normal inspection of the chest Resp: Other: Mild expiratory wheezing throughout. Speaking full sentences. Effort & Inspection: normal respiratory effort Cardio: Rate: regular rate Rhythm: regular rhythm Peripheral pulses: Peripheral pulses 2+ throughout GI: Inspection: Yes normal to inspection Palpation (GI): Soft to palpation and nontender Auscultation: normal bowel sounds Back/Spine/Pelvis: Thoracic/Lumbar Spine: thoracic and lumbar spine normal to inspection Skin: General skin exam: no rashes or lesions noted Neuro: General: patient oriented x3, no focal motor deficits and normal sensation to monofilament Cranial nerves: Yes Equal, round and reactive pupils present Cognition (Neuro): normal cognition Speech: No Abnormal speech present Gait exam (Neuro): Normal gait present Motor exam (neuro): 5/5 motor strength present throughout Extrem: General: Yes normal to inspection and Yes no pedal edema Course Course Course Narrative: COVID screen is positive. Patient has multiple drug to drug interactions with Paxlovid including her psychiatric medications. I did discuss this with the patient through the grill attendant. We discussed the risks and benefits of initiating Paxlovid and holding her other medications. At best time I do not think that is beneficial. Patient was offered monoclonal antibodies which she accepted. Referral sent. Vitals are stable. Patient received DuoNeb, Tylenol, oral prednisone while she was here. Patient is on prednisone 20 mg daily. We discussed increasing her dose to 40 for the next 5 days. Reviewed worrisome signs and symptoms of when to return to the emergency room. Comfortable discharge home. MDM - URI/Sore Throat MDM Narrative Medical decision making narrative: 52-year-old female with an extensive medical history including asthma/COPD, diabetes presents with 4 days of cough, wheezing, body aches and headache with home COVID test that was positive. On arrival vitals are stable. No hypoxia or tachypnea. Lungs have some mild expiratory wheezing throughout. Will send COVID test, obtain chest x-ray. PE less likely as patient is on Eliquis and has been compliant with no missed doses and no reports of leg swelling which is unilateral or leg pain. Medical Records Attestation: I reviewed the patient's medical records. Lab Data Attestation: I reviewed the patient's lab results. Result diagrams: 09/03/22 10:25 09/03/22 10:25 Labs: Lab Results 09/03/22 09/03/22 09/03/22 Range/Units 10:25 10:25 10:25 WBC 11.7 H (4.8-10.8) X10*3/uL RBC 4.19 L (4.20-5.50) X10*6/uL Hgb 11.1 L (12.0-16.0) g/dl Hct 35.2 L (37.0-47.0) % MCV 84.0 (80.0-98.0) fL MCH 26.5 L (27.0-33.0) pg MCHC 31.5 (31.0-35.0) g/dl RDW 16.2 H (11.0-16.0) % Plt Count 273 (160-400) X10*3/uL MPV 8.8 L (9.4-12.3) fL Immature Gran % (Auto) 2.7 H (0.0-0.4) % Neut % (Auto) 88.1 H (45-73) % Lymph % (Auto) 6.6 L (20-40) % [place] % (Auto) 2.3 (2-11) % Eos % (Auto) 0.1 (0-4) % Baso % (Auto) 0.2 (0-2) % Lymph # (Auto) 0.8 L (1.2-4.9) X10*3/uL [place] # (Auto) 0.3 (0.1-1.2) X10*3/uL Eos # (Auto) 0.0 (0.0-0.4) X10*3/uL Baso # (Auto) 0.0 (0.0-0.2) X10*3/uL Abs Immat Gran (auto) 0.32 H (0.00-0.03) X10*3/uL Absolute Neuts (auto) 10.3 H (2.0-8.3) x10*3/uL Absolute Nucleated RBC 0.000 (0.0-0.012) X10*3/uL Nucleated RBC % (auto) 0.0 (0.0-0.2) /100WBC Sodium 137 (135-145) mmol/L Potassium 4.6 (3.3-5.1) mmol/L Chloride 104 (96-108) mmol/L Carbon Dioxide 22 (22-29) mmol/L Anion Gap 16 (12-20) BUN 22 H (9-16) mg/dL Creatinine 0.84 (0.5-1.4) mg/dL Estim Creat Clear Calc 69.1 Estimated GFR > 60 Random Glucose 96 (60-115) mg/dL Calcium 9.5 (8.4-10.2) mg/dL COVID-19 ([facility]) Positive A (Negative) COVID-19 Clin Com See Note Imaging Data Chest x-ray: Attestation: I personally reviewed and interpreted this imaging study as follows: Radiologist's impression: [facility] [address] [place] [address] XRay Report Signed Patient: Maye Dye MR#: [id number] : 1970 Acct:[id number] Age/Sex: 52 / F ADM Date: 09/03/22 Loc: HO.ED Attending Dr: Ordering Physician: Catrachita Givens NP Date of Service: 09/03/22 Procedure(s): XR chest 2V Accession Number(s): [id number] cc: Catrachita Givens NP~ EXAMINATION: XR CHEST CLINICAL INFORMATION: Cough and shortness of breath COMPARISON: 08/21/2022 TECHNIQUE: 2 views of the chest were obtained. FINDINGS: The lungs are well expanded. There is no focal consolidation, edema, or effusion. No pneumothorax. The cardiomediastinal silhouette is within normal limits. No acute osseous abnormality. Right upper quadrant surgical clips. XR/XR chest 2V IMPRESSION: Clear lungs. ? Discharge Plan Discharge Clinical Impression: COVID-19 Patient Disposition: Home, Self-Care Instructions: COVID-19 (Coronavirus Disease 2019) (ED) Additional Instructions: Cuarentena por 5 d?as. Bateman radiograf?a de t?rax no muestra signos de neumon?a. Hablamos de que tiene muchas interacciones de f?rmaco a f?rmaco con Paxlovid. Por lo tanto, hemos decidido no prescribir esto. Envi? parisa referencia para anticuerpos monoclonales. Se comunicar?n con usted para configurar esto si est? interesado. Aumente bateman prednisona a 40 mg lata los pr?ximos 4 d?as. Contin?e con los tratamientos caseros. Regresar por empeoramiento de los s?ntomas. Prescriptions: New prednisone 20 mg tablet 40 mg PO DAILY Qty: 8 0RF benzonatate 200 mg capsule 200 mg PO TID PRN (Reason: cough) Qty: 15 0RF No Action gabapentin [Neurontin] 300 mg capsule 600 mg PO BID 30 Days Qty: 120 11RF hydroxyzine HCl 25 mg tablet 1 tab PO DAILY ondansetron 4 mg tablet,disintegrating 4 mg PO TID PRN (Reason: nausea and vomiting) 5 Days Qty: 10 0RF montelukast 10 mg tablet 10 mg PO BEDTIME Eliquis 2.5 mg Tablet 2.5 mg PO BID Qty: 180 0RF albuterol sulfate 90 mcg/actuation HFA aerosol inhaler 1 inh inhalation QID PRN (Reason: shortness of breath or wheezing) Qty: 18 0RF Anoro Ellipta 62.5-25 mcg/actuation blister with device 1 puff inhalation DAILY acetaminophen [Tylenol Extra Strength] 500 mg tablet 500 mg PO Q6H PRN (Reason: pain or fever) Qty: 20 0RF dicyclomine 20 mg tablet 20 mg PO QID PRN (Reason: abdominal pain) Qty: 20 0RF Robitussin Cough and Cold CF 2.5-5-50 mg/5 mL liquid 30 ml PO Q6-8H PRN (Reason: cough) Qty: 118 0RF escitalopram oxalate 10 mg tablet 1 tab PO DAILY prednisone 20 mg tablet 20 mg PO DAILY artificial tears with lanolin Ointment 1 appl OPHTHALMIC (EYE) DAILY PRN (Reason: Dry Eye(S)) miconazole nitrate 2 % Powder 1 appl TOPICAL BID PRN (Reason: Rash) Privigen 10 % solution 40 g IV QMONTH zolpidem 10 mg tablet 1 tab PO BEDTIME cefuroxime axetil 500 mg tablet 500 mg PO BID Qty: 10 0RF guaifenesin 100 mg/5 mL Liquid 200 mg PO Q4H PRN (Reason: Cough) Qty: 473 0RF polyethylene glycol 3350 17 gram Powder In Packet 17 g PO BID PRN (Reason: constipation) Qty: 30 0RF docusate sodium 100 mg Capsule 100 mg PO BID Qty: 30 0RF cholecalciferol (vitamin D3) 25 mcg (1,000 unit) tablet 25 mcg PO DAILY cyanocobalamin (vitamin B-12) 1,000 mcg tablet 1,000 mcg PO DAILY quetiapine [Seroquel] 400 mg tablet 400 mg PO BEDTIME Daliresp 500 mcg tablet 500 mcg PO DAILY 30 Days Qty: 30 12RF benzonatate 200 mg capsule 200 mg PO TID PRN (Reason: cough) 30 Days Qty: 60 3RF pantoprazole 40 mg tablet,delayed release (DR/EC) 40 mg PO BID 14 Days Qty: 28 0RF loperamide [Anti-Diarrheal (loperamide)] 2 mg capsule 2 mg PO Q6H PRN (Reason: loose stool) 14 Days Qty: 60 0RF oxycodone 5 mg tablet 5 mg PO TID PRN (Reason: pain) 30 Days Qty: 90 0RF Rx Instructions: Partial Fill upon patient request. Referrals: Claudia Villatoro MD [Primary Care Provider] - 5 days Print Language: Bengali
[2022-09-03 12:47] VITALS: PULSE 86; RESP 18; O2SAT 95
[2022-09-03] MEDS: Albuterol/Iprat 2.5/0.5MG 3 ML AMPUL.NEB INHALE (12:47)
[2022-09-03] MEDS: Acetaminophen 325 MG TABLET 975 MG PO (13:30)
[2022-09-03] MEDS: predniSONE 20 MG TABLET 40 MG PO (13:30)
[2022-09-03 13:35] VITALS: BP 140/67; PULSE 68; RESP 24; TEMP 36.9; O2SAT 100
== END 2022-09-03 13:40 | disposition home or self-care (01) ==
PROVIDERS: Emergency Provider Emergency Medicine; PCP Internal Medicine
DX: U07.1 COVID-19 (principal); J45.909 Unspecified asthma, uncomplicated
CPT/HCPCS: 71046; 80048; 85025; 87635; 94640; 99284

== ENCOUNTER 2022-09-13 12:30 | Emergency (ER) | payer OTHER, SELFPAY ==
--- NOTE | ~2022-09-13 | XR_ITS ---
EXAMINATION: XR FOOT, RIGHT CLINICAL INFORMATION: Right foot pain. COMPARISON: None. TECHNIQUE: AP, lateral, and oblique views of the right foot. FINDINGS: No displaced fracture. Tiny tibiotalar marginal osteophytes. Plantar calcaneal spur. No osseous erosion. No abnormal soft tissue calcification. XR/XR foot RT min 3V IMPRESSION: 1. Minimal tibiotalar arthrosis. 2. Plantar calcaneal spur.
--- NOTE | ~2022-09-13 | XR_ITS ---
EXAMINATION: XR chest 1V CLINICAL INFORMATION: Reason for Exam epigastric/ chest pain COMPARISON: 09/03/2022 TECHNIQUE: XR chest 1V Tubes and lines: None Lungs and pleura: Mild elevation left hemidiaphragm. Both lungs are clear. Heart and mediastinum: The mediastinum is within normal limits.. Bones/soft tissue: Skeletal structures included are normal for patient's age. XR/XR chest 1V IMPRESSION: 1. No radiographic evidence of acute cardiopulmonary disease. 2. Mild elevation left hemidiaphragm.
--- NOTE | ~2022-09-13 | CT_ITS ---
EXAMINATION: CT ABDOMEN AND PELVIS WITH CONTRAST CLINICAL INFORMATION: Epigastric, right upper quadrant pain. COMPARISON: 08/21/2022 TECHNIQUE: Multidetector volumetric images were obtained from the superior aspect of the liver through the pubic symphysis following administration 85 mL of Omnipaque 350 intravenous contrast. Sagittal and coronal reformatted images were obtained on the technologist's workstation. Oral contrast: No This CT examination was performed using dose optimization techniques as appropriate, variously including the following: *Automated exposure control *Adjustment of mA and/or kV according to patient size (this includes techniques or standardized protocols for targeted exams where dose is matched to indication/reason for exam; i.e. extremities or head) *Use of iterative reconstruction technique DLP: 678 mGy-cm FINDINGS: LUNG BASES: Normal. No pulmonary consolidation or pleural effusion. LIVER: The liver has normal size, shape, and attenuation. No evidence of liver mass. GALLBLADDER AND BILIARY TREE: Gallbladder is surgically absent. No dilated bile ducts. PANCREAS: Normal. No edema, pancreatic ductal dilatation or mass. SPLEEN: Normal. ADRENAL GLANDS: Normal. KIDNEYS AND URETERS: Kidneys are normal in size and enhance symmetrically. Small, 0.3 cm stone of the posterior interpolar region of the left kidney. Otherwise, no evidence of nephrolithiasis or hydronephrosis. A few simple cysts are present within each kidney, including a parapelvic cyst of the mid to upper pole of the left kidney that measures up to 4.8 cm maximum dimension. No renal imaging follow-up is recommended for simple cysts. BLADDER: Normal. No calculi or wall thickening. BOWEL AND PERITONEUM: No acute findings along the gastrointestinal tract. No dilated bowel loops. Surgical changes from Smitha-en-Y gastric bypass. No evidence of wall thickening at the jejunojejunal anastomosis. No mesenteric fat stranding, free fluid or free air. The appendix is normal. The colon and rectum are unremarkable. ABDOMINAL WALL: Unremarkable. VASCULATURE: Unremarkable. LYMPH NODES: No pathologic sized lymph nodes in the abdomen or pelvis. No inguinal lymphadenopathy. PELVIC VISCERA: Hysterectomy. No adnexal mass. No pelvic free fluid. SKELETAL: No suspicious bone lesions. Moderate facet arthropathy and grade 1 anterolisthesis at L5-S1. Hemangioma of the L4 vertebral body. CT/CT abdomen pelvis w IV con IMPRESSION: No acute findings along the gastrointestinal tract compared to 08/21/2022, status post Smitha-en-Y gastric bypass surgery. No specific source of abdominal pain is identified.
--- NOTE | ~2022-09-13 | CT_ITS ---
EXAMINATION: CT HEAD WITHOUT CONTRAST CLINICAL INFORMATION: Right-sided headache COMPARISON: CT head 10/12/2021 TECHNIQUE: Contiguous axial imaging was performed from the skull base to vertex without intravenous administration of contrast. This CT examination was performed using dose optimization techniques as appropriate, variously including the following: *Automated exposure control *Adjustment of mA and/or kV according to patient size (this includes techniques or standardized protocols for targeted exams where dose is matched to indication/reason for exam; i.e. extremities or head) *Use of iterative reconstruction technique DLP: 626 mGy-cm FINDINGS: There is no evidence of acute intracranial hemorrhage or territorial infarction. No abnormal mass effect or midline shift is seen. Hua to white matter differentiation is well preserved. No extra-axial fluid collections are identified. The ventricles are normal in size. There is mild periventricular and subcortical white matter hypoattenuation, most likely representing microangiopathic disease. No acute calvarial fracture. Left sphenoid sinus partial opacification. Remainder of the Paranasal sinuses and mastoid air cells are well-aerated. CT/CT head/brain wo IV con IMPRESSION: No CT evidence of acute intracranial hemorrhage or edematous territorial infarction.. Left sphenoid sinus disease.
[2022-09-13 12:41] VITALS: BP 123/67; PULSE 67; RESP 18; TEMP 36.6; O2SAT 100; BMI 34.5
[2022-09-13 15:14] VITALS: BP 143/64; PULSE 59; RESP 20; TEMP 36.7; O2SAT 96
--- NOTE | 2022-09-13 16:01 | ECG_ITS ---
Test Reason : DYSPNEA Blood Pressure : / mmHG Vent. Rate : 058 BPM Atrial Rate : 058 BPM P-R Int : 128 ms QRS Dur : 096 ms QT Int : 402 ms P-R-T Axes : 038 002 016 degrees QTc Int : 394 ms Sinus bradycardia with sinus arrhythmia Incomplete right bundle branch block Abnormal ECG When compared with ECG of 21-AUG-2022 02:29, Incomplete right bundle branch block is new Referred By: Davis Barry Electronically Signed By:KIMBERLY NESBITT MD
--- NOTE | 2022-09-13 16:06 | ED_ITS ---
HPI - General Adult General Chief complaint: General Medical Stated complaint: headache, R side pain Time Seen by Provider: 09/13/22 16:00 Source: patient Mode of arrival: ambulatory Limitations: no limitations History of Present Illness HPI narrative: 52-year-old female history of asthma/COPD overlap, chronic gastritis, irritable bowel syndrome, BABATUNDE, diabetes, TIA, hypothyroidism, obesity, hypertension presenting to the emergency department with multiple complaints. Patient tells me she has been having severe epigastric/right upper quadrant pain x2 weeks describes it as intermittent in stabbing in nature, unable to tell me what makes it better worse, tells me it is very uncomfortable, reports decreased PO intake secondary to pain. Patient also complaining of severe right-sided headache that started about few hours ago, sudden in onset, tells me is very uncomfortable it feels like her typical migraine however worse in severity. Denies vision changes or dizziness. Patient is also here with complaints of wound to the right heel, patient tells me that started about 3 days ago and has been progressively worsening, she reports pain with ambulation and weight-bearing, tells me the area is warm, red, and extremely painful. Patient denies chest pain, shortness of breath, fevers, chills, changes in urination, vision changes, dizziness, weakness, nausea, vomiting. To note patient was covid + 2 weeks ago Upon arrival NIH stroke scale is 0. Related Data Home Medications Medication Instructions Recorded Confirmed montelukast 10 mg tablet 10 mg PO BEDTIME 08/02/20 08/21/22 cyanocobalamin (vitamin B-12) 1,000 mcg PO DAILY 11/05/20 08/21/22 1,000 mcg tablet hydroxyzine HCl 25 mg tablet 1 tab PO DAILY 12/12/20 08/21/22 cholecalciferol (vitamin D3) 25 25 mcg PO DAILY 03/19/21 08/21/22 mcg (1,000 unit) tablet umeclidinium 62.5 mcg-vilanterol 1 puff inhalation DAILY 10/12/21 08/21/22 25 mcg/actuation powdr for inhalation (Anoro Ellipta) quetiapine 400 mg tablet (Seroquel) 400 mg PO BEDTIME 06/02/22 08/21/22 artificial tears with lanolin eye 1 appl ophthalmic (eye) DAILY PRN 08/21/22 08/21/22 ointment Dry Eye(S) escitalopram oxalate 10 mg tablet 1 tab PO DAILY 08/21/22 08/21/22 immune glob,gamm(IgG) 10 %-pro-IgA 40 g IV QMONTH 08/21/22 08/21/22 0 to 50 mcg/mL intravenous solution (Privigen) miconazole nitrate 2 % topical 1 appl topical BID PRN Rash 08/21/22 08/21/22 powder prednisone 20 mg tablet 20 mg PO DAILY 08/21/22 08/21/22 zolpidem 10 mg tablet 1 tab PO BEDTIME 08/21/22 08/21/22 Previous Rx's Medication Instructions Recorded albuterol sulfate 90 mcg/actuation 1 inh inhalation QID PRN shortness 10/13/20 aerosol inhaler of breath or wheezing #18 grams ondansetron 4 mg disintegrating 4 mg PO TID PRN nausea and 05/23/21 tablet vomiting 5 days #10 tabs roflumilast 500 mcg tablet 500 mcg PO DAILY 30 days #30 tabs 11/03/21 (Daliresp) acetaminophen 500 mg tablet 500 mg PO Q6H PRN pain or fever 01/21/22 (Tylenol Extra Strength) #20 tabs gabapentin 300 mg capsule 600 mg PO BID 30 days #120 caps 04/03/22 (Neurontin) loperamide 2 mg capsule 2 mg PO Q6H PRN loose stool 2 06/16/22 (Anti-Diarrheal (loperamide)) weeks #60 caps pantoprazole 40 mg tablet,delayed 40 mg PO BID 2 weeks #28 tabs 06/16/22 release dicyclomine 20 mg tablet 20 mg PO QID PRN abdominal pain 06/27/22 #20 tabs zmsdxjfolgfbc-SX-tzrviebqiom 2.5 30 ml PO Q6-8H PRN cough #118 mL 07/21/22 mg-5 mg-50 mg/5 mL oral liquid (Robitussin Cough and Cold CF) apixaban 2.5 mg tablet (Eliquis) 2.5 mg PO BID #180 tabs 08/06/22 cefuroxime axetil 500 mg tablet 500 mg PO BID #10 tabs 08/23/22 docusate sodium 100 mg capsule 100 mg PO BID #30 caps 08/23/22 guaifenesin 100 mg/5 mL oral liquid 200 mg (10 mL) PO Q4H PRN Cough 08/23/22 #473 mL polyethylene glycol 3350 17 gram 17 g PO BID PRN constipation #30 ea 08/23/22 oral powder packet oxycodone 5 mg tablet 5 mg PO TID PRN pain 30 days #90 08/26/22 tabs prednisone 20 mg tablet 40 mg PO DAILY #8 tabs 09/03/22 albuterol sulfate 2.5 mg/3 mL 2.5 mg (3 mL) inhalation Q4H PRN 09/08/22 (0.083 %) solution for nebulization shortness of breath or wheezing 30 days #360 mL aluminum-mag hydroxide-simethicone 10 ml PO QID PRN indigestion 14 09/08/22 200 mg-200 mg-20 mg/5 mL oral susp days #355 mL (Maalox Advanced) benzonatate 200 mg capsule 200 mg PO TID PRN cough #60 caps 09/08/22 dextromethorphan-guaifenesin 5 10 ml PO Q4H PRN cough 14 days 09/08/22 mg-100 mg/5 mL oral liquid #355 mL doxycycline monohydrate 100 mg 100 mg PO BID 14 days #28 tabs 09/08/22 tablet prednisone 10 mg tablet See Rx Instructions PO DAILY 10 09/08/22 days #15 tabs aluminum-mag hydroxide-simethicone 5 ml PO 5XD PRN dyspepsia #355 mL 09/13/22 200 mg-200 mg-20 mg/5 mL oral susp (Maalox Advanced) cephalexin 500 mg tablet 500 mg PO Q6H 10 days #40 tabs 09/13/22 doxycycline hyclate 100 mg capsule 100 mg PO BID 10 days #20 caps 09/13/22 Allergies Allergy/AdvReac Type Severity Reaction Status Date / Time No Known Allergies Allergy Verified 09/08/22 11:20 Review of Systems Review of Systems: Constitutional : No Weight loss, No Fever, No Chills, No Fatigue, No Malaise ENT/Mouth : No sore throat, No Rhinorrhea Eyes: No Eye Pain, No Swelling, No Redness Cardiovascular : No Chest Pain, No SOB, No Dyspnea on Exertion, No Orthopnea, No Edema, No Palpitations Respiratory : No Cough, No Sputum, No Wheezing Gastrointestinal : No Nausea, No Vomiting, No Diarrhea, No Constipation, + abdominal Pain, No Hematochezia, No Melena Genitourinary : No Dysuria, No Urinary Frequency, No Hematuria, Musculoskeletal : No joint pain, No Myalgias, No Joint Swelling Skin : No Skin Lesions, + rash Neuro : No Weakness, No Numbness, No Dizziness, + Headache Psych : No Anxiety/Panic, No Depression All other systems reviewed and are negative Yes all other systems are reviewed and are negative [facility] Past Medical History Attestation statement: The following information was validated with the patient. Source: old records reviewed and nursing notes reviewed Medical History Anemia Arthritis Asthma Asthma exacerbation Asthma-COPD overlap syndrome Back pain Bronchitis Chronic pain syndrome Complex regional pain syndrome i of left lower limb Cough Depression Diabetic neuropathy Diet-controlled diabetes mellitus Disc degeneration, lumbosacral Dizziness Elevated lactic acid level Essential hypertension Fibromyalgia Headache Headache, migraine Hypogammaglobulinemia Hypothyroidism Laryngotracheitis Low back pain Morbid obesity Nausea vomiting and diarrhea BABATUNDE (obstructive sleep apnea) Osteoporosis Pleuritic chest pain 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 Pulmonary embolism Sleep apnea Spondylosis of cervical spine 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 TIA (transient ischemic attack) Type 2 diabetes mellitus with unspecified complications Surgical History History of bariatric surgery History of cholecystectomy History of esophagogastroduodenoscopy (EGD) Hx of colonoscopy S/P total abdominal hysterectomy Family History Family History Mother Diabetes Stroke Family/Other Diabetes Father Diabetes Maternal Aunt Cancer Social History Social History Household Members: Caregiver Housing: House Are you a primary youth care professional to a significant other at home: No Do you presently have visiting nurse or other home services: No Alcohol intake: never Patient Tobacco Use Status: Never used Tobacco e-Cigarette/Vaping Use: Never Used Second Hand Smoke Exposure: No Advance Directives: No Advance Directives Information Provided: No Advance Directives Date on File: 05/23/21 service: No Current occupational status: unemployed and disabled Physical Exam ED Vital Signs: Vital Signs - 24 hr 09/13/22 12:41 09/13/22 15:14 Temperature 98 F 98.1 F Pulse Rate 67 59 Respiratory Rate 18 20 Blood Pressure 123/67 143/64 H Pulse Oximetry 100 96 Oxygen Delivery Method Room Air Room Air BMI result Body Mass Index 34.5 vss Appearance: Alert.? Oriented X3.? No acute distress.? Head: Normocephalic, atraumatic, no step-offs or deformities Eyes: Pupils equal, round and reactive to light.? Neck: Normal inspection.? Neck supple.? CVS: Normal heart rate and rhythm.? Pulses normal.? Respiratory: No respiratory distress.? Breath sounds normal.? Abdomen: Soft and tenderness to palpation in epigastric region.? Skin: Skin warm and dry.? Normal skin color.? Normal skin turgor.?+ cellulitic area to the right heel, warm, erythematous, tender to the touch. Extremities: No lower extremity edema.? No calf ttp. 5/5 strength to bilateral upper and lower extremities Neuro: Oriented X 3.? No motor deficit.? No sensory deficit. CN 2-12 intact . Patient ambulating with steady gait. Normal [id number], [id number]-cl-[id number], normal rapid alternating movements, normal coordination, negative pronator drift. Course Reevaluation(s) Reevaluation #1: Patient's CBC with no acute findings. Chemistry with no acute electrolyte abnormalities requiring intervention. Lipase within normal limits. Lactic acid within normal limits. Troponin negative, EKG nonischemic. Will give 1 dose of ceftriaxone here for cellulitis to right heel. CT of the head with no acute findings. Pending urine and CT of the abdomen and pelvis. Time: 17:47 Reevaluation #2: To note patient drinking soda and eating [employer] without difficulty. Patient reports improvement in headache and epigastric pain. Still reporting significant pain to the right heel, patient tells me she does not want to go home and would like to stay in the hospital. I explained to her I would speak to the hospitalist about admission. However I do not believe that she require hospital admission. Time: 19:00 Reevaluation #3: Hospitalist Dr. Brizuela evaluated patient will also agrees likely cellulitis to right lower extremity, patient can go home with p.o. antibiotics and wound clinic referral. Patient has normal labs, normal lactic acid, no signs of osteomyelitis, no signs of septic joint, patient has not failed outpatient therapy. At this time I explained to patient, explained her she would go home on 2 different antibiotics educated her to return with new or worsening symptoms. Educated her on worrisome signs and symptoms and when to return. Time of discharge only complaint is right foot pain, no complaints of headache, epigastric pain, these have resolved. Will outline cellulitic area and advised her to return if it goes beyond margins. Time: 19:44 Medications Administered Discontinued Medications Generic Name Dose Route Start Last Admin Trade Name Renato PRN Reason Stop Dose Admin Al Hydroxide/Mg Hydroxide 30 ml 09/13/22 16:13 09/13/22 17:34 Magnesium Hydrox/Alum Hydrox 30 Ml Oral.Susp PO 09/13/22 16:14 30 ml ONCE ONE Administration Sodium Chloride 1,000 mls @ 999 mls/hr 09/13/22 16:15 09/13/22 17:35 Ns IV 09/13/22 17:15 999 mls/hr .Q1H1M OMERO Administration Ceftriaxone Sodium 1 gm/ 50 mls @ 100 mls/hr 09/13/22 17:46 09/13/22 18:30 Sodium Chloride IV 09/13/22 18:15 100 mls/hr ONCE ONE Administration Iohexol 100 ml 09/13/22 18:48 09/13/22 18:48 Iohexol 350 Mg/Ml 100 Ml Infus..Btl IV 09/13/22 18:49 85 ml ONCE ONE Administration Morphine Sulfate 2 mg 09/13/22 16:14 09/13/22 17:35 Morphine Sulfate 2 Mg/Ml Cartridge IVPUSH 09/13/22 16:15 2 mg ONCE ONE Administration Protocol Medical Decision Making [facility] Narrative Medical decision making narrative: 1610 52-year-old female presents with multiple complaints, epigastric pain, right foot cellulitis and right-sided headache. Physical examination with cellulitic area to the right heel, normal neuro exam, cerebellar intact, regular rate and rhythm, lungs clear, abdomen soft, tender to epigastric region with normoactive bowel sounds. Likely typical migraine, unlikely that this is intracranial hemorrhage, stroke, posterior stroke. Right foot likely cellulitis, unlikely erysipelas, no signs of septic joint on exam, unlikely SJS. Epigastric pain likely secondary to chronic gastritis will give Maalox and morphine for pain. Will obtain imaging of head and abdomen to rule intracranial an intra-abdominal etiologies. Obtain basic labs imaging. Medical Records Medical records reviewed: Yes I reviewed the patient's medical records. Lab Data Lab results reviewed: Yes I reviewed the patient's lab results. Result diagrams: 09/13/22 16:59 09/13/22 16:59 Labs: Lab Results 09/13/22 09/13/22 09/13/22 Range/Units 16:59 16:59 16:59 WBC 10.8 (4.8-10.8) X10*3/uL RBC 4.53 (4.20-5.50) X10*6/uL Hgb 12.3 (12.0-16.0) g/dl Hct 39.0 (37.0-47.0) % MCV 86.1 (80.0-98.0) fL MCH 27.2 (27.0-33.0) pg MCHC 31.5 (31.0-35.0) g/dl RDW 17.7 H (11.0-16.0) % Plt Count 186 D (160-400) X10*3/uL MPV 9.8 (9.4-12.3) fL Immature Gran % (Auto) 1.1 H (0.0-0.4) % Neut % (Auto) 71.4 (45-73) % Lymph % (Auto) 18.8 L (20-40) % [place] % (Auto) 6.2 (2-11) % Eos % (Auto) 2.3 (0-4) % Baso % (Auto) 0.2 (0-2) % Lymph # (Auto) 2.0 (1.2-4.9) X10*3/uL [place] # (Auto) 0.7 (0.1-1.2) X10*3/uL Eos # (Auto) 0.3 (0.0-0.4) X10*3/uL Baso # (Auto) 0.0 (0.0-0.2) X10*3/uL Abs Immat Gran (auto) 0.12 H (0.00-0.03) X10*3/uL Absolute Neuts (auto) 7.7 (2.0-8.3) x10*3/uL Absolute Nucleated RBC 0.000 (0.0-0.012) X10*3/uL Nucleated RBC % (auto) 0.0 (0.0-0.2) /100WBC Smear Tech's Comments VERIFIED Sodium 141 (135-145) mmol/L Potassium 4.3 (3.3-5.1) mmol/L Chloride 107 (96-108) mmol/L Carbon Dioxide 22 (22-29) mmol/L Anion Gap 16 (12-20) BUN 16 (9-16) mg/dL Creatinine 0.96 (0.5-1.4) mg/dL Estim Creat Clear Calc 63.5 Estimated GFR > 60 Random Glucose 67 (60-115) mg/dL Lactic Acid (0.5-2.0) mmol/L Calcium 10.0 (8.4-10.2) mg/dL Magnesium 2.3 (1.6-2.6) mg/dL Total Bilirubin 0.3 (0.0-1.0) mg/dL AST 34 H D (5-31) U/L ALT 74 H (0-31) U/L Alkaline Phosphatase 95 (39-117) U/L Troponin I High Sens (<3.5-17.0) ng/L Total Protein 6.7 (6.5-8.0) g/dL Albumin 4.1 (3.5-5.0) g/dL Lipase 41 (8-78) U/L COVID-19 ([facility]ERT[facility]) Positive A (Negative) COVID-19 Clin Com See Note 09/13/22 09/13/22 Range/Units 16:59 16:59 WBC (4.8-10.8) X10*3/uL RBC (4.20-5.50) X10*6/uL Hgb (12.0-16.0) g/dl Hct (37.0-47.0) % MCV (80.0-98.0) fL MCH (27.0-33.0) pg MCHC (31.0-35.0) g/dl RDW (11.0-16.0) % Plt Count (160-400) X10*3/uL MPV (9.4-12.3) fL Immature Gran % (Auto) (0.0-0.4) % Neut % (Auto) (45-73) % Lymph % (Auto) (20-40) % [place] % (Auto) (2-11) % Eos % (Auto) (0-4) % Baso % (Auto) (0-2) % Lymph # (Auto) (1.2-4.9) X10*3/uL [place] # (Auto) (0.1-1.2) X10*3/uL Eos # (Auto) (0.0-0.4) X10*3/uL Baso # (Auto) (0.0-0.2) X10*3/uL Abs Immat Gran (auto) (0.00-0.03) X10*3/uL Absolute Neuts (auto) (2.0-8.3) x10*3/uL Absolute Nucleated RBC (0.0-0.012) X10*3/uL Nucleated RBC % (auto) (0.0-0.2) /100WBC Smear Tech's Comments Sodium (135-145) mmol/L Potassium (3.3-5.1) mmol/L Chloride (96-108) mmol/L Carbon Dioxide (22-29) mmol/L Anion Gap (12-20) BUN (9-16) mg/dL Creatinine (0.5-1.4) mg/dL Estim Creat Clear Calc Estimated GFR Random Glucose (60-115) mg/dL Lactic Acid 1.0 (0.5-2.0) mmol/L Calcium (8.4-10.2) mg/dL Magnesium (1.6-2.6) mg/dL Total Bilirubin (0.0-1.0) mg/dL AST (5-31) U/L ALT (0-31) U/L Alkaline Phosphatase (39-117) U/L Troponin I High Sens 5.9 (<3.5-17.0) ng/L Total Protein (6.5-8.0) g/dL Albumin (3.5-5.0) g/dL Lipase (8-78) U/L COVID-19 ([facility]IO [facility]BERTO) (Negative) COVID-19 Clin Com ECG Data Attestation: I personally reviewed and interpreted this ECG as follows: Prior ECG tracings: available for review Interpretation: Ventricular rate of 58, DE normal, QRS normal, QT/QTC normal. EKG with sinus bradycardia with sinus arrhythmia, also noted to have a right bundle-branch block, no ST elevations or inversions concerning for ischemia. Critical Care Time Critical Care Time Critical Care Time: No Discharge Plan Discharge Clinical Impression: Headache, Cellulitis of foot, right, Epigastric abdominal pain Patient Disposition: Home, Self-Care Instructions: Cellulitis (ED), Acute Headache (ED), Abdominal Pain (ED), Epigastric Pain (ED) Additional Instructions: Take your medications as prescribed. If you were prescribed antibiotics today, it is important that you take your medication to their entirety, do not skip any doses, do not finish them early. Follow-up with your primary care provider this week. Return to the emergency department with new or worsening symptoms. Such as fevers, chills, chest pain, shortness of breath, nausea, vomiting, dizziness, headache, vision changes, lethargy, weakness, facial droop, changes in speech. In case of emergency call 911 XR/XR foot RT min 3V IMPRESSION: 1.? Minimal tibiotalar arthrosis. ? 2.? Plantar calcaneal spur. XR/XR chest 1V IMPRESSION: 1.? No radiographic evidence of acute cardiopulmonary disease. 2.? Mild elevation left hemidiaphragm. CT/CT head/brain wo IV con IMPRESSION: No CT evidence of acute intracranial hemorrhage or edematous territorial infarction.. ? Left sphenoid sinus disease. ? ? Prescriptions: New doxycycline hyclate 100 mg capsule 100 mg PO BID 10 Days Qty: 20 0RF cephalexin 500 mg tablet 500 mg PO Q6H 10 Days Qty: 40 0RF alum-mag hydroxide-simeth [Maalox Advanced] 200-200-20 mg/5 mL suspension 5 ml PO 5XD PRN (Reason: dyspepsia) Qty: 355 0RF Rx Instructions: administer between meals and at bedtime No Action gabapentin [Neurontin] 300 mg capsule 600 mg PO BID 30 Days Qty: 120 11RF hydroxyzine HCl 25 mg tablet 1 tab PO DAILY ondansetron 4 mg tablet,disintegrating 4 mg PO TID PRN (Reason: nausea and vomiting) 5 Days Qty: 10 0RF montelukast 10 mg tablet 10 mg PO BEDTIME Eliquis 2.5 mg Tablet 2.5 mg PO BID Qty: 180 0RF albuterol sulfate 90 mcg/actuation HFA aerosol inhaler 1 inh inhalation QID PRN (Reason: shortness of breath or wheezing) Qty: 18 0RF Anoro Ellipta 62.5-25 mcg/actuation blister with device 1 puff inhalation DAILY acetaminophen [Tylenol Extra Strength] 500 mg tablet 500 mg PO Q6H PRN (Reason: pain or fever) Qty: 20 0RF prednisone 20 mg tablet 40 mg PO DAILY Qty: 8 0RF dicyclomine 20 mg tablet 20 mg PO QID PRN (Reason: abdominal pain) Qty: 20 0RF Robitussin Cough and Cold CF 2.5-5-50 mg/5 mL liquid 30 ml PO Q6-8H PRN (Reason: cough) Qty: 118 0RF escitalopram oxalate 10 mg tablet 1 tab PO DAILY prednisone 20 mg tablet 20 mg PO DAILY artificial tears with lanolin Ointment 1 appl OPHTHALMIC (EYE) DAILY PRN (Reason: Dry Eye(S)) miconazole nitrate 2 % Powder 1 appl TOPICAL BID PRN (Reason: Rash) Privigen 10 % solution 40 g IV QMONTH zolpidem 10 mg tablet 1 tab PO BEDTIME cefuroxime axetil 500 mg tablet 500 mg PO BID Qty: 10 0RF guaifenesin 100 mg/5 mL Liquid 200 mg PO Q4H PRN (Reason: Cough) Qty: 473 0RF polyethylene glycol 3350 17 gram Powder In Packet 17 g PO BID PRN (Reason: constipation) Qty: 30 0RF docusate sodium 100 mg Capsule 100 mg PO BID Qty: 30 0RF cholecalciferol (vitamin D3) 25 mcg (1,000 unit) tablet 25 mcg PO DAILY cyanocobalamin (vitamin B-12) 1,000 mcg tablet 1,000 mcg PO DAILY quetiapine [Seroquel] 400 mg tablet 400 mg PO BEDTIME doxycycline monohydrate 100 mg tablet 100 mg PO BID 14 Days Qty: 28 0RF prednisone 10 mg tablet See Rx Instructions PO DAILY 10 Days Qty: 15 0RF Rx Instructions: PO daily; 2 tabs x 5 days, then 1 tab x 5 days dextromethorphan-guaifenesin 5-100 mg/5 mL liquid 10 ml PO Q4H PRN (Reason: cough) 14 Days Qty: 355 5RF benzonatate 200 mg capsule 200 mg PO TID PRN (Reason: cough) Qty: 60 6RF alum-mag hydroxide-simeth [Maalox Advanced] 200-200-20 mg/5 mL suspension 10 ml PO QID PRN (Reason: indigestion) 14 Days Qty: 355 0RF Rx Instructions: administer between meals and at bedtime albuterol sulfate 2.5 mg /3 mL (0.083 %) solution for nebulization 2.5 mg inhalation Q4H PRN (Reason: shortness of breath or wheezing) 30 Days Qty: 360 11RF Daliresp 500 mcg tablet 500 mcg PO DAILY 30 Days Qty: 30 12RF pantoprazole 40 mg tablet,delayed release (DR/EC) 40 mg PO BID 14 Days Qty: 28 0RF loperamide [Anti-Diarrheal (loperamide)] 2 mg capsule 2 mg PO Q6H PRN (Reason: loose stool) 14 Days Qty: 60 0RF oxycodone 5 mg tablet 5 mg PO TID PRN (Reason: pain) 30 Days Qty: 90 0RF Rx Instructions: Partial Fill upon patient request. Referrals: [facility] [place] [facility] [Provider Group] - 1 day Claudia Villatoro MD [Primary Care Provider] - 2 days
[2022-09-13 17:28] LABS: Basophils Percent Auto 0.2 % (0-2); Eosinophils Absolute Auto 0.3 X10*3/uL (0.0-0.4); Eosinophils Percent Auto 2.3 % (0-4); Hemoglobin 12.3 g/dl (12.0-16.0); Imm Gran Abs Auto 0.12 X10*3/uL (0.00-0.03); Imm Gran Pct Auto 1.1 % (0.0-0.4); Lymphocytes Percent Auto 18.8 % (20-40); MANUAL DIFF FLAG SCAN; Mean Corpuscular HGB Conc 31.5 g/dl (31.0-35.0); Mean Corpuscular Hemoglobin 27.2 pg (27.0-33.0); Mean Corpuscular Volume 86.1 fL (80.0-98.0); Monocytes Absolute Auto 0.7 X10*3/uL (0.1-1.2); Monocytes Percent Auto 6.2 % (2-11); Neutrophils Absolute Auto 7.7 x10*3/uL (2.0-8.3); Neutrophils Percent Auto 71.4 % (45-73); PLT CLUMP 1; Red Blood Count 4.53 X10*6/uL (4.20-5.50); Red Cell Distribution Width 17.7 % (11.0-16.0); SCAN SMEAR FLAG 1
[2022-09-13 17:29] LABS: COVID-19 Test Positive (Negative); White Blood Count 10.8 X10*3/uL (4.8-10.8)
[2022-09-13] MEDS: Magnesium Hydrox/Alum Hydrox 30 ML ORAL.SUSP PO (17:34)
[2022-09-13] MEDS: Morphine Sulfate 2 MG/ML CARTRIDGE IVPUSH ×2 (17:35→20:04)
[2022-09-13] MEDS: 0.9 % Sodium Chloride 1,000 ML 999 ML IV (17:35)
[2022-09-13 17:39] LABS: Troponin-I High Sensitivity 5.9 ng/L (<3.5-17.0)
--- NOTE | 2022-09-13 17:39 | PC.NURSE ---
Patient was postive for Covid x 2 weeks ago. Patient c/o pain 10/10 in right foot ? cellulitis.
[2022-09-13 17:42] LABS: Alanine Aminotransferase 74 U/L (0-31); Albumin Level 4.1 g/dL (3.5-5.0); Alkaline Phosphatase 95 U/L (39-117); Anion Gap 16 (12-20); Aspartate Amino Transferase 34 U/L (5-31); Bilirubin Total 0.3 mg/dL (0.0-1.0); Blood Urea Nitrogen 16 mg/dL (9-16); Carbon Dioxide 22 mmol/L (22-29); Chloride 107 mmol/L (96-108); Creatinine Clr Calc Pharmacy 63.5; Estimated Glomerular Filt Rate > 60; Glucose Random 67 mg/dL (60-115); Lipase 41 U/L (8-78); Magnesium 2.3 mg/dL (1.6-2.6); Potassium 4.3 mmol/L (3.3-5.1); Sodium 141 mmol/L (135-145); Total Protein 6.7 g/dL (6.5-8.0)
[2022-09-13 17:44] LABS: Mean Platelet Volume 9.8 fL (9.4-12.3); Platelet Count 186 X10*3/uL (160-400); SLIDE REVIEW VERIFIED
[2022-09-13] MEDS: cefTRIAXone sodium 1 GM in 0.9 % Sodium Chloride 50 ML IV (18:30)
[2022-09-13] MEDS: iohexoL 350 MG/ML 100 ML INFUS..BTL IV (18:48)
== END 2022-09-13 20:11 | disposition home or self-care (01) ==
PROVIDERS: Physician Assistant; Emergency Provider Emergency Medicine; PCP Internal Medicine
DX: L03.115 Cellulitis of right lower limb (principal); R10.13 Epigastric pain; R10.11 Right upper quadrant pain; R06.02 Shortness of breath; R51.9 Headache, unspecified; Z79.899 Other long term (current) drug therapy; Z20.822 Contact with and (suspected) exposure to COVID-19
CPT/HCPCS: 36415; 70450; 71045; 73630; 74177; 80053; 83605; 83690; 83735; 84484; 85025; 87040; 87635; 93005; 96374; 96375; 96376; 99284; J0696; J2270; Q9967

== ENCOUNTER 2022-09-17 11:24 | Outpatient (REF) | payer OTHER, SELFPAY | END 2022-09-17 11:25 | disposition home or self-care (01) | LOC: HO.MDS 11:24 | PROVIDERS: Visit Provider Hospitalist | DX: D80.1 Nonfamilial hypogammaglobulinemia (principal) | CPT/HCPCS: 96365; 96366 ==

== ENCOUNTER 2022-09-28 10:17 | Emergency (ER) | payer OTHER, SELFPAY ==
[2022-09-28 11:49] VITALS: BP 107/68; PULSE 69; RESP 18; TEMP 36.1; O2SAT 97; BMI 33.7
--- NOTE | 2022-09-28 11:54 | ED.EAR ---
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 She states symptoms started 5 days ago. She denies any known trauma to the ear. She endorses a 3 day history of fevers with T-max 101.3? at home yesterday, managed with OTC Tylenol with good effect. She denies any fevers today. She states she visited the ENT office on [address] in [place] however she was unable to be seen as she needed a referral. She states her primary care provider is on vacation until October 10 and she is hoping to get a referral today to see the gear straightener. She denies any drainage from her ear, chills, changes in vision, headache, or dental pain. MD Complaint: ear pain Location: right ear Duration: constant Severity: moderate Relieving factors: nothing Exacerbating factors: nothing Context: recent illness (covid-19) Discharge from ear: no Associated symptoms ear: fever and decreased hearing Treatment prior to arrival: attempt at ear wax removal (with hydrogen peroxide) Related Data Home Medications Medication Instructions Recorded Confirmed montelukast 10 mg tablet 10 mg PO BEDTIME 08/02/20 08/21/22 cyanocobalamin (vitamin B-12) 1,000 mcg PO DAILY 11/05/20 08/21/22 1,000 mcg tablet hydroxyzine HCl 25 mg tablet 1 tab PO DAILY 12/12/20 08/21/22 cholecalciferol (vitamin D3) 25 25 mcg PO DAILY 03/19/21 08/21/22 mcg (1,000 unit) tablet umeclidinium 62.5 mcg-vilanterol 1 puff inhalation DAILY 10/12/21 08/21/22 25 mcg/actuation powdr for inhalation (Anoro Ellipta) quetiapine 400 mg tablet (Seroquel) 400 mg PO BEDTIME 06/02/22 08/21/22 artificial tears with lanolin eye 1 appl ophthalmic (eye) DAILY PRN 08/21/22 08/21/22 ointment Dry Eye(S) escitalopram oxalate 10 mg tablet 1 tab PO DAILY 08/21/22 08/21/22 immune glob,gamm(IgG) 10 %-pro-IgA 40 g IV QMONTH 08/21/22 08/21/22 0 to 50 mcg/mL intravenous solution (Privigen) miconazole nitrate 2 % topical 1 appl topical BID PRN Rash 08/21/22 08/21/22 powder prednisone 20 mg tablet 20 mg PO DAILY 08/21/22 08/21/22 zolpidem 10 mg tablet 1 tab PO BEDTIME 08/21/22 08/21/22 Previous Rx's Medication Instructions Recorded albuterol sulfate 90 mcg/actuation 1 inh inhalation QID PRN shortness 10/13/20 aerosol inhaler of breath or wheezing #18 grams ondansetron 4 mg disintegrating 4 mg PO TID PRN nausea and 05/23/21 tablet vomiting 5 days #10 tabs roflumilast 500 mcg tablet 500 mcg PO DAILY 30 days #30 tabs 11/03/21 (Daliresp) acetaminophen 500 mg tablet 500 mg PO Q6H PRN pain or fever 01/21/22 (Tylenol Extra Strength) #20 tabs gabapentin 300 mg capsule 600 mg PO BID 30 days #120 caps 04/03/22 (Neurontin) loperamide 2 mg capsule 2 mg PO Q6H PRN loose stool 2 06/16/22 (Anti-Diarrheal (loperamide)) weeks #60 caps pantoprazole 40 mg tablet,delayed 40 mg PO BID 2 weeks #28 tabs 06/16/22 release dicyclomine 20 mg tablet 20 mg PO QID PRN abdominal pain 06/27/22 #20 tabs sofnfjwxyidhm-[id number] 2.5 30 ml PO Q6-8H PRN cough #118 mL 07/21/22 mg-5 mg-50 mg/5 mL oral liquid (Robitussin Cough and Cold CF) apixaban 2.5 mg tablet (Eliquis) 2.5 mg PO BID #180 tabs 08/06/22 cefuroxime axetil 500 mg tablet 500 mg PO BID #10 tabs 08/23/22 docusate sodium 100 mg capsule 100 mg PO BID #30 caps 08/23/22 guaifenesin 100 mg/5 mL oral liquid 200 mg (10 mL) PO Q4H PRN Cough 08/23/22 #473 mL polyethylene glycol 3350 17 gram 17 g PO BID PRN constipation #30 ea 08/23/22 oral powder packet oxycodone 5 mg tablet 5 mg PO TID PRN pain 30 days #90 08/26/22 tabs prednisone 20 mg tablet 40 mg PO DAILY #8 tabs 09/03/22 albuterol sulfate 2.5 mg/3 mL 2.5 mg (3 mL) inhalation Q4H PRN 09/08/22 (0.083 %) solution for nebulization shortness of breath or wheezing 30 days #360 mL aluminum-mag hydroxide-simethicone 10 ml PO QID PRN indigestion 14 09/08/22 200 mg-200 mg-20 mg/5 mL oral susp days #355 mL (Maalox Advanced) benzonatate 200 mg capsule 200 mg PO TID PRN cough #60 caps 09/08/22 dextromethorphan-guaifenesin 5 10 ml PO Q4H PRN cough 14 days 09/08/22 mg-100 mg/5 mL oral liquid #355 mL doxycycline monohydrate 100 mg 100 mg PO BID 14 days #28 tabs 09/08/22 tablet prednisone 10 mg tablet See Rx Instructions PO DAILY 10 09/08/22 days #15 tabs aluminum-mag hydroxide-simethicone 5 ml PO 5XD PRN dyspepsia #355 mL 09/13/22 200 mg-200 mg-20 mg/5 mL oral susp (Maalox Advanced) cephalexin 500 mg tablet 500 mg PO Q6H 10 days #40 tabs 09/13/22 doxycycline hyclate 100 mg capsule 100 mg PO BID 10 days #20 caps 09/13/22 amoxicillin 500 mg-potassium 1 tab PO Q8H 7 days #21 tabs 09/28/22 clavulanate 125 mg tablet (Augmentin) Allergies Allergy/AdvReac Type Severity Reaction Status Date / Time No Known Allergies Allergy Verified 09/08/22 11:20 Review of Systems Review of Systems: Yes all other systems are reviewed and are negative Constitutional: Constitutional: Reports no additional constitutional complaints, Denies body ache(s), Denies chills, Reports fever(s) and Denies headache(s) Eyes: Eyes: Reports no additional eye complaints and Denies change in vision ENT: Reports system reviewed and no additional complaints, except as documented, Reports Normal hearing present (abnormal in right ear, WNL left ear), Denies dental pain, Denies dizziness, Denies ear discharge and Denies headache(s) Cardiovascular: Cardiovascular: Reports no additional cardiovascular complaints, Denies chest pain and Denies dyspnea Respiratory: Respiratory: Reports no additional respiratory complaints and Denies dyspnea Gastrointestinal: Gastrointestinal: Reports no additional gastrointestinal complaints Genitourinary: Genitourinary: Reports no additional female genitourinary complaints Musculoskeletal: Musculoskeletal: Reports no additional musculoskeletal complaints Integumentary/Breasts: Skin/Breast: Reports system reviewed and no additional complaints, except as docu, Denies lesions, Denies rash, Denies sores and Denies wounds Neurologic: Reports system reviewed and no additional complaints, except as documented, Reports Normal hearing present (abnormal in right ear, WNL left ear), Denies dizziness, Denies headache(s) and Denies lack of coordination Psychiatric: Psychiatric: Reports no additional psychiatric complaints Endocrine: Endocrine: Reports no additional endocrine complaints, Denies polyphagia, Denies polydipsia and Denies polyuria [facility] Past Medical History Attestation statement: The following information was validated with the patient. Source: old records reviewed and obtained from family Medical History Anemia Arthritis Asthma Asthma exacerbation Asthma-COPD overlap syndrome Back pain Bronchitis Chronic pain syndrome Complex regional pain syndrome i of left lower limb Cough Depression Diabetic neuropathy Diet-controlled diabetes mellitus Disc degeneration, lumbosacral Dizziness Elevated lactic acid level Essential hypertension Fibromyalgia Headache Headache, migraine Hypogammaglobulinemia Hypothyroidism Laryngotracheitis Low back pain Morbid obesity Nausea vomiting and diarrhea BABATUNDE (obstructive sleep apnea) Osteoporosis Pleuritic chest pain 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 Pulmonary embolism Sleep apnea Spondylosis of cervical spine 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 TIA (transient ischemic attack) Type 2 diabetes mellitus with unspecified complications Surgical History History of bariatric surgery History of cholecystectomy History of esophagogastroduodenoscopy (EGD) Hx of colonoscopy S/P total abdominal hysterectomy Family History Family History Mother Diabetes Stroke Family/Other Diabetes Father Diabetes Maternal Aunt Cancer Social History Social History Household Members: Caregiver Housing: House Are you a primary medical care evaluation specialist to a significant other at home: No Do you presently have visiting nurse or other home services: No Alcohol intake: never Patient Tobacco Use Status: Never used Tobacco e-Cigarette/Vaping Use: Never Used Second Hand Smoke Exposure: No Advance Directives: No Advance Directives Information Provided: Yes Advance Directives Date on File: 05/23/21 service: No Current occupational status: unemployed and disabled Physical Exam Vital Signs: Vital Signs: Last Vital Signs Temp 97.0 F 09/28/22 11:49 Pulse 69 09/28/22 11:49 Resp 18 09/28/22 11:49 BP 107/68 09/28/22 11:49 Pulse Ox 97 09/28/22 11:49 O2 Del Method 09/28/22 11:49 BMI result Body Mass Index 33.7 Const: General: cooperative, comfortable, well developed, alert and awake Nutritional Appearance: well nourished Orientation/consciousness: patient oriented x3 Limitations: language barrier HEENT: Head: Yes normal to inspection, Yes normocephalic and Yes atraumatic Ears: external ears normal, right TM abnormal (unable to visualize TM on exam), TM normal on the left and hearing grossly impaired on the right General nose exam: Normal external nose present and Normal nares present Face and sinus: Yes normal facial exam and Yes face symmetric Mouth: Normal oral and palatal mucosa present Teeth and gingiva: edentulous Eyes: General: appearance normal, both eyes and all related structures Visual Yap: normal visual yap by confrontation Alignment and Position: alignment normal Periorbital: periorbital findings normal Eyelids: Yes eyelids normal Conjunctivae: conjunctivae normal Sclerae: sclerae normal Pupils: Equal, round and reactive pupils present EOM: EOMs intact bilaterally Neck: Neck: Yes normal visual inspection and Yes full ROM Chest: Chest palpation & inspection: normal inspection of the chest Resp: Effort & Inspection: normal respiratory effort Auscultation: clear to auscultation bilaterally Cardio: Rate: regular rate Rhythm: regular rhythm Back/Spine/Pelvis: Cervical Spine: cervical ROM normal Skin: General skin exam: no rashes or lesions noted Neuro: General: patient oriented x3, gait normal and moves all extremities Cranial nerves: Yes Equal, round and reactive pupils present and Yes Normal hearing present (abnormal in right ear, WNL left ear) Cognition (Neuro): normal cognition Gait exam (Neuro): Normal gait present Motor exam (neuro): 5/5 motor strength present throughout Extrem: General: Yes normal to inspection, Yes full ROM and Yes capillary refill normal Psych: Appearance: grossly normal Mental Status: mental status grossly normal Speech and movement: Normal speech and movement present and Clear speech present Affect: normal affect Attitude: cooperative Thought process: Normal thought process present Thought content: Normal thought content present Judgement: Good judgement present (Psych) MDM - Ear MDM Narrative Medical decision making narrative: 52-year-old Micronesian-speaking female presents to the emergency department with complaints of right ear fullness, pain, difficulty hearing. She states she was diagnosed with COVID-19 on 09/03/2022 and believes her ear pain is related to the virus. On physical exam tympanic membrane intact and appears retracted consistent with possible effusion. No inflammation of the external ear canal noted. No cerumen impaction noted. Plan to discharge patient with Augmentin x7 day course and follow up with ENT if systems persist. 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 Patient educated to return to the emergency department with worsening pain, jaw or dental pain, fever despite Tylenol or Motrin, or any other emergent concerns she might have. Recommended to follow-up with ear nose and throat and your primary care provider for further treatment and management. Differential Diagnosis Differential diagnosis: Likely otitis media Medical Records Attestation: I reviewed the patient's medical records. Discharge Plan Discharge Clinical Impression: Otitis media Patient Disposition: Home, Self-Care Instructions: Ear Infection (ED) Additional Instructions: A prescription for antibiotics has been provided few for coverage of an ear infection. Please return to the emergency department with worsening pain, jaw or dental pain, fever despite Tylenol or Motrin, or any other emergent concerns she might have. Recommended to follow-up with ear nose and throat and your primary care provider for further treatment and management. Prescriptions: New amoxicillin-pot clavulanate [Augmentin] 500-125 mg tablet 1 tab PO Q8H 7 Days Qty: 21 0RF No Action gabapentin [Neurontin] 300 mg capsule 600 mg PO BID 30 Days Qty: 120 11RF hydroxyzine HCl 25 mg tablet 1 tab PO DAILY ondansetron 4 mg tablet,disintegrating 4 mg PO TID PRN (Reason: nausea and vomiting) 5 Days Qty: 10 0RF montelukast 10 mg tablet 10 mg PO BEDTIME Eliquis 2.5 mg Tablet 2.5 mg PO BID Qty: 180 0RF albuterol sulfate 90 mcg/actuation HFA aerosol inhaler 1 inh inhalation QID PRN (Reason: shortness of breath or wheezing) Qty: 18 0RF Anoro Ellipta 62.5-25 mcg/actuation blister with device 1 puff inhalation DAILY acetaminophen [Tylenol Extra Strength] 500 mg tablet 500 mg PO Q6H PRN (Reason: pain or fever) Qty: 20 0RF prednisone 20 mg tablet 40 mg PO DAILY Qty: 8 0RF dicyclomine 20 mg tablet 20 mg PO QID PRN (Reason: abdominal pain) Qty: 20 0RF Robitussin Cough and Cold CF 2.5-5-50 mg/5 mL liquid 30 ml PO Q6-8H PRN (Reason: cough) Qty: 118 0RF escitalopram oxalate 10 mg tablet 1 tab PO DAILY prednisone 20 mg tablet 20 mg PO DAILY artificial tears with lanolin Ointment 1 appl OPHTHALMIC (EYE) DAILY PRN (Reason: Dry Eye(S)) miconazole nitrate 2 % Powder 1 appl TOPICAL BID PRN (Reason: Rash) Privigen 10 % solution 40 g IV QMONTH zolpidem 10 mg tablet 1 tab PO BEDTIME cefuroxime axetil 500 mg tablet 500 mg PO BID Qty: 10 0RF guaifenesin 100 mg/5 mL Liquid 200 mg PO Q4H PRN (Reason: Cough) Qty: 473 0RF polyethylene glycol 3350 17 gram Powder In Packet 17 g PO BID PRN (Reason: constipation) Qty: 30 0RF docusate sodium 100 mg Capsule 100 mg PO BID Qty: 30 0RF doxycycline hyclate 100 mg capsule 100 mg PO BID 10 Days Qty: 20 0RF cephalexin 500 mg tablet 500 mg PO Q6H 10 Days Qty: 40 0RF alum-mag hydroxide-simeth [Maalox Advanced] 200-200-20 mg/5 mL suspension 5 ml PO 5XD PRN (Reason: dyspepsia) Qty: 355 0RF Rx Instructions: administer between meals and at bedtime cholecalciferol (vitamin D3) 25 mcg (1,000 unit) tablet 25 mcg PO DAILY cyanocobalamin (vitamin B-12) 1,000 mcg tablet 1,000 mcg PO DAILY quetiapine [Seroquel] 400 mg tablet 400 mg PO BEDTIME doxycycline monohydrate 100 mg tablet 100 mg PO BID 14 Days Qty: 28 0RF prednisone 10 mg tablet See Rx Instructions PO DAILY 10 Days Qty: 15 0RF Rx Instructions: PO daily; 2 tabs x 5 days, then 1 tab x 5 days dextromethorphan-guaifenesin 5-100 mg/5 mL liquid 10 ml PO Q4H PRN (Reason: cough) 14 Days Qty: 355 5RF benzonatate 200 mg capsule 200 mg PO TID PRN (Reason: cough) Qty: 60 6RF alum-mag hydroxide-simeth [Maalox Advanced] 200-200-20 mg/5 mL suspension 10 ml PO QID PRN (Reason: indigestion) 14 Days Qty: 355 0RF Rx Instructions: administer between meals and at bedtime albuterol sulfate 2.5 mg /3 mL (0.083 %) solution for nebulization 2.5 mg inhalation Q4H PRN (Reason: shortness of breath or wheezing) 30 Days Qty: 360 11RF Daliresp 500 mcg tablet 500 mcg PO DAILY 30 Days Qty: 30 12RF pantoprazole 40 mg tablet,delayed release (DR/EC) 40 mg PO BID 14 Days Qty: 28 0RF loperamide [Anti-Diarrheal (loperamide)] 2 mg capsule 2 mg PO Q6H PRN (Reason: loose stool) 14 Days Qty: 60 0RF oxycodone 5 mg tablet 5 mg PO TID PRN (Reason: pain) 30 Days Qty: 90 0RF Rx Instructions: Partial Fill upon patient request. Referrals: Claudia Villatoro MD [Primary Care Provider] - Antonio Cowan [Physician] - Interventions: ED Discharge Assessment Last Done: 09/28/22 12:56 Discharge Date/Time: 09/28/22 12:57 Print Language: Micronesian
== END 2022-09-28 12:57 | disposition home or self-care (01) ==
PROVIDERS: Emergency Provider Emergency Medicine; PCP Internal Medicine
DX: H66.91 Otitis media, unspecified, right ear (principal); H92.01 Otalgia, right ear
CPT/HCPCS: 99283

== ENCOUNTER → 2022-11-04 15:15 | Outpatient (BNVA) | payer OTHER, SELFPAY | PROVIDERS: PCP Internal Medicine; Visit Provider Anesthesiology | DX: M51.37 Other intervertebral disc degeneration, lumbosacral region (principal); M47.816 Spondylosis without myelopathy or radiculopathy, lumbar region; M54.50 Low back pain, unspecified; M47.812 Spondylosis without myelopathy or radiculopathy, cervical region; M81.0 Age-related osteoporosis without current pathological fracture; Z79.891 Long term (current) use of opiate analgesic | CPT/HCPCS: 99212 ==

== ENCOUNTER 2022-11-08 04:22 | Emergency (ER) | payer OTHER, SELFPAY ==
--- NOTE | ~2022-11-08 | XR_ITS ---
EXAMINATION: XR CHEST CLINICAL INFORMATION: Cough COMPARISON: 09/13/2022 TECHNIQUE: Frontal view of the chest was obtained. FINDINGS: No significant abnormality is noted involving the heart, lungs, mediastinum, bony thorax or soft tissues. XR/XR chest 1V IMPRESSION: Unremarkable examination.
[2022-11-08 04:30] VITALS: BP 106/56; PULSE 90; RESP 20; TEMP 36.2; O2SAT 96; BMI 34.5
[2022-11-08 05:18] LABS: Influenza A PCR NEGATIVE (Negative); Influenza B PCR NEGATIVE (Negative); Resp Syncy Virus RNA Qual PCR NEGATIVE (Negative); SARS COV2 PCR INHOUSE NEGATIVE (Negative)
--- NOTE | 2022-11-08 05:27 | ED_ITS ---
HPI - General Adult General Chief complaint: Upper Respiratory Symptoms Stated complaint: Pain in stomach, headache Time Seen by Provider: 11/08/22 05:00 Source: patient and respiratory care practitioner Mode of arrival: ambulatory History of Present Illness HPI narrative: 52-year-old female presents with several days of nausea, vomiting secondary to persistent cough and patient has now developed chest wall pain and abdominal pain from the coughing as well as a migraine headache. She states that she did have a fever 101 but is afebrile here Related Data Home Medications Medication Instructions Recorded Confirmed montelukast 10 mg tablet 10 mg PO BEDTIME 08/02/20 08/21/22 cyanocobalamin (vitamin B-12) 1,000 mcg PO DAILY 11/05/20 08/21/22 1,000 mcg tablet hydroxyzine HCl 25 mg tablet 1 tab PO DAILY 12/12/20 08/21/22 cholecalciferol (vitamin D3) 25 25 mcg PO DAILY 03/19/21 08/21/22 mcg (1,000 unit) tablet umeclidinium 62.5 mcg-vilanterol 1 puff inhalation DAILY 10/12/21 08/21/22 25 mcg/actuation powdr for inhalation (Anoro Ellipta) quetiapine 400 mg tablet (Seroquel) 400 mg PO BEDTIME 06/02/22 08/21/22 artificial tears with lanolin eye 1 appl ophthalmic (eye) DAILY PRN 08/21/22 08/21/22 ointment Dry Eye(S) escitalopram oxalate 10 mg tablet 1 tab PO DAILY 08/21/22 08/21/22 immune glob,gamm(IgG) 10 %-pro-IgA 40 g IV QMONTH 08/21/22 08/21/22 0 to 50 mcg/mL intravenous solution (Privigen) miconazole nitrate 2 % topical 1 appl topical BID PRN Rash 08/21/22 08/21/22 powder prednisone 20 mg tablet 20 mg PO DAILY 08/21/22 08/21/22 zolpidem 10 mg tablet 1 tab PO BEDTIME 08/21/22 08/21/22 Previous Rx's Medication Instructions Recorded albuterol sulfate 90 mcg/actuation 1 inh inhalation QID PRN shortness 10/13/20 aerosol inhaler of breath or wheezing #18 grams ondansetron 4 mg disintegrating 4 mg PO TID PRN nausea and 05/23/21 tablet vomiting 5 days #10 tabs roflumilast 500 mcg tablet 500 mcg PO DAILY 30 days #30 tabs 11/03/21 (Daliresp) acetaminophen 500 mg tablet 500 mg PO Q6H PRN pain or fever 01/21/22 (Tylenol Extra Strength) #20 tabs gabapentin 300 mg capsule 600 mg PO BID 30 days #120 caps 04/03/22 (Neurontin) loperamide 2 mg capsule 2 mg PO Q6H PRN loose stool 2 06/16/22 (Anti-Diarrheal (loperamide)) weeks #60 caps pantoprazole 40 mg tablet,delayed 40 mg PO BID 2 weeks #28 tabs 06/16/22 release dicyclomine 20 mg tablet 20 mg PO QID PRN abdominal pain 06/27/22 #20 tabs tandqhualnkfs-GL-fqlhnoaaoyw 2.5 30 ml PO Q6-8H PRN cough #118 mL 07/21/22 mg-5 mg-50 mg/5 mL oral liquid (Robitussin Cough and Cold CF) cefuroxime axetil 500 mg tablet 500 mg PO BID #10 tabs 08/23/22 docusate sodium 100 mg capsule 100 mg PO BID #30 caps 08/23/22 guaifenesin 100 mg/5 mL oral liquid 200 mg (10 mL) PO Q4H PRN Cough 08/23/22 #473 mL polyethylene glycol 3350 17 gram 17 g PO BID PRN constipation #30 ea 08/23/22 oral powder packet prednisone 20 mg tablet 40 mg PO DAILY #8 tabs 09/03/22 albuterol sulfate 2.5 mg/3 mL 2.5 mg (3 mL) inhalation Q4H PRN 09/08/22 (0.083 %) solution for nebulization shortness of breath or wheezing 30 days #360 mL aluminum-mag hydroxide-simethicone 10 ml PO QID PRN indigestion 14 09/08/22 200 mg-200 mg-20 mg/5 mL oral susp days #355 mL (Maalox Advanced) benzonatate 200 mg capsule 200 mg PO TID PRN cough #60 caps 09/08/22 dextromethorphan-guaifenesin 5 10 ml PO Q4H PRN cough 14 days 09/08/22 mg-100 mg/5 mL oral liquid #355 mL doxycycline monohydrate 100 mg 100 mg PO BID 14 days #28 tabs 09/08/22 tablet prednisone 10 mg tablet See Rx Instructions PO DAILY 10 09/08/22 days #15 tabs aluminum-mag hydroxide-simethicone 5 ml PO 5XD PRN dyspepsia #355 mL 09/13/22 200 mg-200 mg-20 mg/5 mL oral susp (Maalox Advanced) cephalexin 500 mg tablet 500 mg PO Q6H 10 days #40 tabs 09/13/22 doxycycline hyclate 100 mg capsule 100 mg PO BID 10 days #20 caps 09/13/22 amoxicillin 500 mg-potassium 1 tab PO Q8H 7 days #21 tabs 09/28/22 clavulanate 125 mg tablet (Augmentin) apixaban 2.5 mg tablet (Eliquis) 2.5 mg PO BID #180 tabs 10/15/22 oxycodone 5 mg tablet 5 mg PO TID PRN pain 30 days #90 11/04/22 tabs benzonatate 200 mg capsule 200 mg PO BID PRN cough #14 caps 11/08/22 prednisone 50 mg tablet 50 mg PO DAILY 4 days #4 tabs 11/08/22 Allergies Allergy/AdvReac Type Severity Reaction Status Date / Time No Known Allergies Allergy Verified 11/08/22 04:32 Review of Systems Review of Systems: Pertinent positives and negatives as stated in HPI [facility] Past Medical History Source: nursing notes reviewed Medical History Anemia Arthritis Asthma Asthma exacerbation Asthma-COPD overlap syndrome Back pain Bronchitis Chronic pain syndrome Complex regional pain syndrome i of left lower limb Cough Depression Diabetic neuropathy Diet-controlled diabetes mellitus Disc degeneration, lumbosacral Dizziness Elevated lactic acid level Essential hypertension Fibromyalgia Headache Headache, migraine Hypogammaglobulinemia Hypothyroidism Laryngotracheitis Low back pain Morbid obesity Nausea vomiting and diarrhea BABATUNDE (obstructive sleep apnea) Osteoporosis Pleuritic chest pain 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 Pulmonary embolism Sleep apnea Spondylosis of cervical spine 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 TIA (transient ischemic attack) Type 2 diabetes mellitus with unspecified complications Surgical History History of bariatric surgery History of cholecystectomy History of esophagogastroduodenoscopy (EGD) Hx of colonoscopy S/P total abdominal hysterectomy Family History Family History Mother Diabetes Stroke Family/Other Diabetes Father Diabetes Maternal Aunt Cancer Social History Social History Household Members: Caregiver Housing: House Are you a primary home care and home health aides teacher to a significant other at home: No Do you presently have visiting nurse or other home services: No Alcohol intake: never Patient Tobacco Use Status: Never used Tobacco Smoked in Last 30 Days: No e-Cigarette/Vaping Use: Never Used Second Hand Smoke Exposure: No Use of substances other than those prescribed or required for medical reasons: No Advance Directives: No Advance Directives Date on File: 05/23/21 Patient : No service: No Current occupational status: unemployed and disabled Physical Exam ED Vital Signs: Vital Signs - 24 hr 11/08/22 04:30 11/08/22 05:43 11/08/22 05:43 Temperature 97.1 F 98.0 F Pulse Rate 90 77 Respiratory Rate 20 24 H Blood Pressure 106/56 L 128/66 Pulse Oximetry 96 98 98 Oxygen Delivery Method Room Air Room Air Room Air 11/08/22 05:39 Temperature Pulse Rate 81 Respiratory Rate 16 Blood Pressure Pulse Oximetry Oxygen Delivery Method BMI result Body Mass Index 34.5 VITAL SIGNS: Reviewed. GENERAL: Well developed, well nourished, in no acute distress. HEAD: Normocephalic/atraumatic EYES: PERRLA, EOMI EARS: Ext canals without abnormality, TMs non-bulging and non-erythematous NOSE: Nares patent bilateral OROPHARYNX: no oral lesions noted, posterior pharynx clear and non-erythematous without noted tonsillar enlargement/erythema/exudates NECK: Supple, no adenopathy LUNGS: Good inspiratory effort with multiple episodes of coughing fits no obvious expiratory wheeze noted. SpO2<98> CARDIOVASCULAR: Regular rate and rhythm without noted murmurs, no JVD or lower extremity edema. ABDOMEN: Soft, non-tender, non-distended with bowel sounds. MUSCULOSKELETAL: No tenderness, deformities, or effusions noted on gross inspection. EXTREMITIES: No cyanosis, clubbing or edema. SKIN: Inspection of the skin reveals no rashes NEUROLOGIC: Alert and oriented x 4. Strength and sensation to light touch were grossly intact x 4. Medications Administered Discontinued Medications Generic Name Dose Route Start Last Admin Trade Name Renato PRN Reason Stop Dose Admin Acetaminophen 975 mg 11/08/22 05:27 11/08/22 06:09 Acetaminophen 325 Mg Tablet PO 11/08/22 05:28 Not Given ONCE ONE Benzonatate 200 mg 11/08/22 05:24 11/08/22 05:29 Benzonatate 100 Mg Capsule PO 11/08/22 05:25 200 mg ONCE ONE Administration Albuterol Sulfate 10 mg/ 0 mg 11/08/22 05:23 11/08/22 05:38 Ipratropium [place] 0.5 mg INHALE 11/08/22 05:24 1 each ONCE ONE Administration Ketorolac Tromethamine 15 mg 11/08/22 05:27 11/08/22 06:09 Ketorolac Tromethamine 30 Mg/Ml Vial IVPUSH 11/08/22 05:28 15 mg ONCE ONE Administration Medical Decision Making Medical Decision Making MDM Narrative: 52-year-old female with ongoing persistent cough that is dry in nature and patient seems to feel that her nausea and vomiting is secondary to the migraine not secondary to her persistent cough. She denies any initiating abdominal pain prior to the nausea and vomiting and denies any urinary symptoms. Basic labs, imaging, viral testing, DuoNebs, Tessalon After review of all investigations thus far my interpretation is that patient [place] s a chronic, persistent cough that may indicate a component of asthma for which she will received 2 DuoNeb treatments and she has had some improvement. Sign out to Dr Sanchez to follow up after 2nd neb treatment. I have prescribed cough suppressant. Differential Diagnosis Please see discussion above Lab Data Please see discussion above 11/08/22 05:54 11/08/22 05:54 Labs: Lab Results 11/08/22 11/08/22 11/08/22 Range/Units 04:35 05:54 05:54 WBC 7.8 (4.8-10.8) X10*3/uL RBC 3.76 L (4.20-5.50) X10*6/uL Hgb 10.0 L (12.0-16.0) g/dl Hct 32.3 L (37.0-47.0) % MCV 85.9 (80.0-98.0) fL MCH 26.6 L (27.0-33.0) pg MCHC 31.0 (31.0-35.0) g/dl RDW 16.1 H (11.0-16.0) % Plt Count 243 D (160-400) X10*3/uL MPV 8.5 L (9.4-12.3) fL Immature Gran % (Auto) 0.5 H (0.0-0.4) % Neut % (Auto) 80.9 H (45-73) % Lymph % (Auto) 14.2 L (20-40) % [place] % (Auto) 3.5 (2-11) % Eos % (Auto) 0.6 (0-4) % Baso % (Auto) 0.3 (0-2) % Lymph # (Auto) 1.1 L (1.2-4.9) X10*3/uL [place] # (Auto) 0.3 (0.1-1.2) X10*3/uL Eos # (Auto) 0.1 (0.0-0.4) X10*3/uL Baso # (Auto) 0.0 (0.0-0.2) X10*3/uL Abs Immat Gran (auto) 0.04 H (0.00-0.03) X10*3/uL Absolute Neuts (auto) 6.3 (2.0-8.3) x10*3/uL Absolute Nucleated RBC 0.000 (0.0-0.012) X10*3/uL Nucleated RBC % (auto) 0.0 (0.0-0.2) /100WBC Sodium 138 (135-145) mmol/L Potassium 4.9 (3.3-5.1) mmol/L Chloride 108 (96-108) mmol/L Carbon Dioxide 22 (22-29) mmol/L Anion Gap 13 (12-20) BUN 20 H (9-16) mg/dL Creatinine 1.16 (0.5-1.4) mg/dL Estim Creat Clear Calc 50.4 Estimated GFR 49 Random Glucose 118 H (60-115) mg/dL Calcium 9.5 (8.4-10.2) mg/dL Total Bilirubin 0.3 (0.0-1.0) mg/dL AST 17 (5-31) U/L ALT 14 (0-31) U/L Alkaline Phosphatase 94 (39-117) U/L Total Protein 5.8 L (6.5-8.0) g/dL Albumin 3.6 (3.5-5.0) g/dL Influenza Type A (PCR) NEGATIVE (Negative) Influenza Type B (PCR) NEGATIVE (Negative) RSV RNA Qual (PCR) NEGATIVE (Negative) SARS-CoV-2 RNA (RT-PCR) NEGATIVE (Negative) Radiology Impression Radiologist Impression: My interpretation is in agreement with radiology's impression imaging study. External Record Review External record reviewed: Outpatient record and Prior outpatient labs Discharge Plan Discharge Clinical Impression: Chronic cough, Asthma Patient Disposition: Still a Patient Instructions: Chronic Cough (ED), Asthma (ED) Additional Instructions: Follow-up with your primary care provider on Wednesday Return to the ER for worsening symptoms Prescriptions: New prednisone 50 mg tablet 50 mg PO DAILY 4 Days Qty: 4 0RF benzonatate 200 mg capsule 200 mg PO BID PRN (Reason: cough) Qty: 14 0RF No Action gabapentin [Neurontin] 300 mg capsule 600 mg PO BID 30 Days Qty: 120 11RF hydroxyzine HCl 25 mg tablet 1 tab PO DAILY ondansetron 4 mg tablet,disintegrating 4 mg PO TID PRN (Reason: nausea and vomiting) 5 Days Qty: 10 0RF montelukast 10 mg tablet 10 mg PO BEDTIME Eliquis 2.5 mg Tablet 2.5 mg PO BID Qty: 180 0RF albuterol sulfate 90 mcg/actuation HFA aerosol inhaler 1 inh inhalation QID PRN (Reason: shortness of breath or wheezing) Qty: 18 0RF Anoro Ellipta 62.5-25 mcg/actuation blister with device 1 puff inhalation DAILY acetaminophen [Tylenol Extra Strength] 500 mg tablet 500 mg PO Q6H PRN (Reason: pain or fever) Qty: 20 0RF prednisone 20 mg tablet 40 mg PO DAILY Qty: 8 0RF dicyclomine 20 mg tablet 20 mg PO QID PRN (Reason: abdominal pain) Qty: 20 0RF Robitussin Cough and Cold CF 2.5-5-50 mg/5 mL liquid 30 ml PO Q6-8H PRN (Reason: cough) Qty: 118 0RF escitalopram oxalate 10 mg tablet 1 tab PO DAILY prednisone 20 mg tablet 20 mg PO DAILY artificial tears with lanolin Ointment 1 appl OPHTHALMIC (EYE) DAILY PRN (Reason: Dry Eye(S)) miconazole nitrate 2 % Powder 1 appl TOPICAL BID PRN (Reason: Rash) Privigen 10 % solution 40 g IV QMONTH zolpidem 10 mg tablet 1 tab PO BEDTIME cefuroxime axetil 500 mg tablet 500 mg PO BID Qty: 10 0RF guaifenesin 100 mg/5 mL Liquid 200 mg PO Q4H PRN (Reason: Cough) Qty: 473 0RF polyethylene glycol 3350 17 gram Powder In Packet 17 g PO BID PRN (Reason: constipation) Qty: 30 0RF docusate sodium 100 mg Capsule 100 mg PO BID Qty: 30 0RF doxycycline hyclate 100 mg capsule 100 mg PO BID 10 Days Qty: 20 0RF cephalexin 500 mg tablet 500 mg PO Q6H 10 Days Qty: 40 0RF alum-mag hydroxide-simeth [Maalox Advanced] 200-200-20 mg/5 mL suspension 5 ml PO 5XD PRN (Reason: dyspepsia) Qty: 355 0RF Rx Instructions: administer between meals and at bedtime amoxicillin-pot clavulanate [Augmentin] 500-125 mg tablet 1 tab PO Q8H 7 Days Qty: 21 0RF cholecalciferol (vitamin D3) 25 mcg (1,000 unit) tablet 25 mcg PO DAILY cyanocobalamin (vitamin B-12) 1,000 mcg tablet 1,000 mcg PO DAILY quetiapine [Seroquel] 400 mg tablet 400 mg PO BEDTIME doxycycline monohydrate 100 mg tablet 100 mg PO BID 14 Days Qty: 28 0RF prednisone 10 mg tablet See Rx Instructions PO DAILY 10 Days Qty: 15 0RF Rx Instructions: PO daily; 2 tabs x 5 days, then 1 tab x 5 days dextromethorphan-guaifenesin 5-100 mg/5 mL liquid 10 ml PO Q4H PRN (Reason: cough) 14 Days Qty: 355 5RF benzonatate 200 mg capsule 200 mg PO TID PRN (Reason: cough) Qty: 60 6RF alum-mag hydroxide-simeth [Maalox Advanced] 200-200-20 mg/5 mL suspension 10 ml PO QID PRN (Reason: indigestion) 14 Days Qty: 355 0RF Rx Instructions: administer between meals and at bedtime albuterol sulfate 2.5 mg /3 mL (0.083 %) solution for nebulization 2.5 mg inhalation Q4H PRN (Reason: shortness of breath or wheezing) 30 Days Qty: 360 11RF Daliresp 500 mcg tablet 500 mcg PO DAILY 30 Days Qty: 30 12RF pantoprazole 40 mg tablet,delayed release (DR/EC) 40 mg PO BID 14 Days Qty: 28 0RF loperamide [Anti-Diarrheal (loperamide)] 2 mg capsule 2 mg PO Q6H PRN (Reason: loose stool) 14 Days Qty: 60 0RF oxycodone 5 mg tablet 5 mg PO TID PRN (Reason: pain) 30 Days Qty: 90 0RF Rx Instructions: Partial Fill upon patient request. Referrals: Claudia Villatoro MD [Primary Care Provider] - Print Language: Portuguese
[2022-11-08] MEDS: Benzonatate 100 MG CAPSULE 200 MG PO (05:29)
[2022-11-08 05:39] VITALS: PULSE 81; RESP 16; O2SAT 98
[2022-11-08 05:43] VITALS: BP 128/66; PULSE 75; PULSE 77; RESP 24; TEMP 36.7; O2SAT 98
[2022-11-08 06:00] LABS: MANUAL DIFF FLAG NO
[2022-11-08 06:01] LABS: Basophils Percent Auto 0.3 % (0-2); Eosinophils Absolute Auto 0.1 X10*3/uL (0.0-0.4); Eosinophils Percent Auto 0.6 % (0-4); Hematocrit 32.3 % (37.0-47.0); Imm Gran Abs Auto 0.04 X10*3/uL (0.00-0.03); Imm Gran Pct Auto 0.5 % (0.0-0.4); Lymphocytes Absolute Auto 1.1 X10*3/uL (1.2-4.9); Lymphocytes Percent Auto 14.2 % (20-40); Mean Corpuscular Hemoglobin 26.6 pg (27.0-33.0); Mean Corpuscular Volume 85.9 fL (80.0-98.0); Mean Platelet Volume 8.5 fL (9.4-12.3); Monocytes Absolute Auto 0.3 X10*3/uL (0.1-1.2); Monocytes Percent Auto 3.5 % (2-11); Neutrophils Absolute Auto 6.3 x10*3/uL (2.0-8.3); Neutrophils Percent Auto 80.9 % (45-73); Platelet Count 243 X10*3/uL (160-400); Red Blood Count 3.76 X10*6/uL (4.20-5.50); Red Cell Distribution Width 16.1 % (11.0-16.0); White Blood Count 7.8 X10*3/uL (4.8-10.8)
[2022-11-08] MEDS: Ketorolac Tromethamine 30 MG/ML VIAL 15 MG IVPUSH (06:09)
[2022-11-08 06:16] LABS: Alanine Aminotransferase 14 U/L (0-31); Albumin Level 3.6 g/dL (3.5-5.0); Alkaline Phosphatase 94 U/L (39-117); Anion Gap 13 (12-20); Aspartate Amino Transferase 17 U/L (5-31); Bilirubin Total 0.3 mg/dL (0.0-1.0); Blood Urea Nitrogen 20 mg/dL (9-16); Calcium 9.5 mg/dL (8.4-10.2); Carbon Dioxide 22 mmol/L (22-29); Chloride 108 mmol/L (96-108); Creatinine Clr Calc Pharmacy 50.4; Estimated Glomerular Filt Rate 49; Glucose Random 118 mg/dL (60-115); Potassium 4.9 mmol/L (3.3-5.1); Sodium 138 mmol/L (135-145); Total Protein 5.8 g/dL (6.5-8.0)
[2022-11-08] MEDS: Lidocaine HCl Viscous 2 % 15 ML SOLUTION 10 ML MUCOUS MEM (07:06)
[2022-11-08] MEDS: Magnesium Hydrox/Alum Hydrox 30 ML ORAL.SUSP PO (07:06)
[2022-11-08] MEDS: predniSONE 10 MG TABLET 50 MG PO (07:13)
[2022-11-08 07:30] VITALS: PULSE 96; RESP 24; O2SAT 96
[2022-11-08 08:22] VITALS: BP 125/60; PULSE 112; RESP 20; TEMP 36.7; O2SAT 98
--- NOTE | 2022-11-08 08:25 | PC.NURSE ---
AMBULATING TO AND FROM BATHROOM W STEADY GAIT, PT STS SOME RESOLUTION OF S/S AT THIS TIME, PT ASKING IF SHE WILL BE GOING HOME.
[2022-11-08] MEDS: oxyCODONE HCl Immed Release 5 MG TABLET PO (09:11)
== END 2022-11-08 09:17 | disposition home or self-care (01) ==
PROVIDERS: Student in an Organized Health Care Education/Training Program; Emergency Provider Emergency Medicine Emergency Medical Services; PCP Internal Medicine
DX: J45.909 Unspecified asthma, uncomplicated (principal); R05.9 Cough, unspecified; Z20.822 Contact with and (suspected) exposure to COVID-19; Z20.828 Contact with and (suspected) exposure to other viral communicable diseases
CPT/HCPCS: 0241U; 36415; 71045; 80053; 85025; 94640; 99285; J1885

== ENCOUNTER 2022-11-12 10:16 | Day surgery (SDC) | payer OTHER, SELFPAY ==
[2022-11-10 08:55] VITALS: BMI 35.7
--- NOTE | 2022-11-11 12:19 | HO.ANESPROP2 ---
Documented by User: Polina Christopher NP 11/11/22 12:21 HPI - Anesthesia Eval Consult details Narrative: 52yo F for Upper End[facility] [place] with asthma exac, rx and d/c home. Pt back to baseline pulmo status PMFSH Active Problems Active Problems: All Active Problems (Updated 11/10/22 @ 08:56 by Neli Garces, MACIEL) Asthma (Acute) Radiculopathy (Acute) Precordial chest pain (Acute) Acute severe exacerbation of moderate persistent asthma (Acute) Migraine with acute onset aura (Acute) Bile salt-induced diarrhea (Acute) Epigastric pain (Acute) Irritable bowel syndrome with diarrhea (Acute) Chronic gastritis (Acute) Chronic bronchitis (Acute) COVID-19 (Acute) Asthma exacerbation attacks (Acute) Persistent cough (Acute) Abdominal pain (Acute) Acute bronchitis (Acute) Constipation (Acute) Osteoporosis (Acute) Spondylosis of cervical spine (Acute) Asthma-COPD overlap syndrome (Acute) Spondylosis of lumbar joint (Acute) Disc degeneration, lumbosacral (Acute) Cough (Acute) BABATUNDE (obstructive sleep apnea) (Acute) Chronic pain syndrome (Acute) Spondylosis of lumbar spine (Acute) Low back pain (Acute) Complex regional pain syndrome i of left lower limb (Acute) Diabetic neuropathy (Acute) Laryngotracheitis (Acute) Essential hypertension (Acute) Type 2 diabetes mellitus with unspecified complications (Acute) Morbid obesity (Acute) Anemia (Acute) Back pain (Acute) TIA (transient ischemic attack) (Acute) Sleep apnea (Acute) Hypothyroidism (Acute) Fibromyalgia (Acute) Diet-controlled diabetes mellitus (Acute) Arthritis (Acute) Hypogammaglobulinemia (Acute) Pleuritic chest pain (Acute) Pulmonary embolism (Acute) Past Medical History Medical History Anemia Arthritis Asthma exacerbation Asthma-COPD overlap syndrome Back pain Bronchitis Chronic pain syndrome Complex regional pain syndrome i of left lower limb Cough Depression Diabetic neuropathy Diet-controlled diabetes mellitus Disc degeneration, lumbosacral Dizziness Elevated lactic acid level Essential hypertension Fibromyalgia Headache Headache, migraine History of COVID-19 Hypogammaglobulinemia Hypothyroidism Laryngotracheitis Low back pain Morbid obesity Nausea vomiting and diarrhea BABATUNDE (obstructive sleep apnea) Osteoporosis Pleuritic chest pain 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 Pulmonary embolism Sleep apnea Spondylosis of cervical spine 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 TIA (transient ischemic attack) Type 2 diabetes mellitus with unspecified complications Family History Family History Mother Diabetes Stroke Family/Other Diabetes Father Diabetes Maternal Aunt Cancer Family history of problems with anesthesia: No Surgical History Surgical History History of bariatric surgery History of cholecystectomy History of esophagogastroduodenoscopy (EGD) Hx of colonoscopy S/P total abdominal hysterectomy History of Problems with Anesthesia: No Social History Social History Household Members: Caregiver Housing: House Are you a primary clinical manager home care to a significant other at home: No Do you presently have visiting nurse or other home services: No Alcohol intake: never Patient Tobacco Use Status: Never used Tobacco e-Cigarette/Vaping Use: Never Used Second Hand Smoke Exposure: No Are you DNR?: No Advance Directives: No Advance Directives Information Provided: Yes Advance Directives Date on File: 05/23/21 Nutrition Risks: No Nutritional Risk service: No Current occupational status: unemployed and disabled Meds Allergies Allergy/AdvReac Type Severity Reaction Status Date / Time No Known Allergies Allergy Verified 11/12/22 10:37 Home Medications Medication Instructions Recorded Confirmed Last Taken Type montelukast 10 mg tablet 10 mg PO BEDTIME 08/02/20 11/10/22 11/11/21 History cyanocobalamin (vitamin B-12) 1,000 mcg PO DAILY 11/05/20 11/10/22 11/11/21 History 1,000 mcg tablet hydroxyzine HCl 25 mg tablet 1 tab PO DAILY 12/12/20 11/10/22 11/11/21 History cholecalciferol (vitamin D3) 25 25 mcg PO DAILY 03/19/21 11/10/22 11/11/21 History mcg (1,000 unit) tablet umeclidinium 62.5 mcg-vilanterol 1 puff inhalation DAILY 10/12/21 11/10/22 11/11/21 History 25 mcg/actuation powdr for inhalation (Anoro Ellipta) quetiapine 400 mg tablet (Seroquel) 400 mg PO BEDTIME 06/02/22 11/10/22 Unknown History artificial tears with lanolin eye 1 appl ophthalmic (eye) DAILY PRN 08/21/22 08/21/22 Unknown History ointment Dry Eye(S) escitalopram oxalate 10 mg tablet 1 tab PO DAILY 08/21/22 11/10/22 Unknown History immune glob,gamm(IgG) 10 %-pro-IgA 40 g IV QMONTH 08/21/22 11/10/22 07/23/22 History 0 to 50 mcg/mL intravenous solution (Privigen) miconazole nitrate 2 % topical 1 appl topical BID PRN Rash 08/21/22 11/10/22 Unknown History powder zolpidem 10 mg tablet 1 tab PO BEDTIME 08/21/22 11/10/22 Unknown History losartan 100 mg tablet 1 tab PO DAILY 11/10/22 11/10/22 Unknown History Exam Exam Date and Time: November 11, 2022 1219 Height,Weight and Vital Signs: Height 4 ft 11 in Weight 80.286 kg Pertinent Lab Results Pertinent Lab Results: Laboratory Tests 11/08/22 11/08/22 05:54 05:54 WBC 7.8 Hgb 10.0 L Hct 32.3 L Plt Count 243 D Sodium 138 Potassium 4.9 Chloride 108 Carbon Dioxide 22 BUN 20 H Creatinine 1.16 Narrative Narrative: EKG 11/2022 Vent. Rate : 058 BPM ? ? Atrial Rate : 058 BPM ?? P-R Int : 128 ms? QRS Dur : 096 ms ? ? QT Int : 402 ms ? ? ? P-R-T Axes : 038 002 016 degrees ?? QTc Int : 394 ms ? Sinus bradycardia with sinus arrhythmia Incomplete right bundle branch block Abnormal ECG When compared with ECG of 21-AUG-2022 02:29, Incomplete right bundle branch block is new Assessment and Plan Assessment Anesthesia Assessment: Chart Reviewed Final Anesthetic Review Family History of Problems with Anesthesia: No History of Problems with Anesthesia: No Documented by User: Noa Reed MD 11/12/22 11:04 PMFSH Past Medical History Medical History Anemia Arthritis Asthma exacerbation Asthma-COPD overlap syndrome Back pain Bronchitis Chronic pain syndrome Complex regional pain syndrome i of left lower limb Cough Depression Diabetic neuropathy Diet-controlled diabetes mellitus Disc degeneration, lumbosacral Dizziness Elevated lactic acid level Essential hypertension Fibromyalgia Headache Headache, migraine History of COVID-19 Hypogammaglobulinemia Hypothyroidism Laryngotracheitis Low back pain Morbid obesity Nausea vomiting and diarrhea BABATUNDE (obstructive sleep apnea) Osteoporosis Pleuritic chest pain 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 Pulmonary embolism Sleep apnea Spondylosis of cervical spine 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 TIA (transient ischemic attack) Type 2 diabetes mellitus with unspecified complications Family History Family History Mother Diabetes Stroke Family/Other Diabetes Father Diabetes Maternal Aunt Cancer Surgical History Surgical History History of bariatric surgery History of cholecystectomy History of esophagogastroduodenoscopy (EGD) Hx of colonoscopy S/P total abdominal hysterectomy Social History Social History Household Members: Caregiver Housing: House Are you a primary clinical manager home care to a significant other at home: No Do you presently have visiting nurse or other home services: No Alcohol intake: never Patient Tobacco Use Status: Never used Tobacco e-Cigarette/Vaping Use: Never Used Second Hand Smoke Exposure: No Are you DNR?: No Advance Directives: No Advance Directives Information Provided: Yes Advance Directives Date on File: 05/23/21 Nutrition Risks: No Nutritional Risk service: No Current occupational status: unemployed and disabled Meds Allergies Allergy/AdvReac Type Severity Reaction Status Date / Time No Known Allergies Allergy Verified 11/12/22 10:37 Home Medications Medication Instructions Recorded Confirmed Last Taken Type montelukast 10 mg tablet 10 mg PO BEDTIME 08/02/20 11/10/22 11/11/21 History cyanocobalamin (vitamin B-12) 1,000 mcg PO DAILY 11/05/20 11/10/22 11/11/21 History 1,000 mcg tablet hydroxyzine HCl 25 mg tablet 1 tab PO DAILY 12/12/20 11/10/22 11/11/21 History cholecalciferol (vitamin D3) 25 25 mcg PO DAILY 03/19/21 11/10/22 11/11/21 History mcg (1,000 unit) tablet umeclidinium 62.5 mcg-vilanterol 1 puff inhalation DAILY 10/12/21 11/10/22 11/11/21 History 25 mcg/actuation powdr for inhalation (Anoro Ellipta) quetiapine 400 mg tablet (Seroquel) 400 mg PO BEDTIME 06/02/22 11/10/22 Unknown History artificial tears with lanolin eye 1 appl ophthalmic (eye) DAILY PRN 08/21/22 08/21/22 Unknown History ointment Dry Eye(S) escitalopram oxalate 10 mg tablet 1 tab PO DAILY 08/21/22 11/10/22 Unknown History immune glob,gamm(IgG) 10 %-pro-IgA 40 g IV QMONTH 08/21/22 11/10/22 07/23/22 History 0 to 50 mcg/mL intravenous solution (Privigen) miconazole nitrate 2 % topical 1 appl topical BID PRN Rash 08/21/22 11/10/22 Unknown History powder zolpidem 10 mg tablet 1 tab PO BEDTIME 08/21/22 11/10/22 Unknown History losartan 100 mg tablet 1 tab PO DAILY 11/10/22 11/10/22 Unknown History Exam Airway Mallampati Class: II TM Dist: >3cm Denture: Upper and Lower Heart: rrr Lungs: wheezing, albutrol updraft in pre op Assessment and Plan Final Anesthetic Review NPO: Yes ASA Class: III Final Preanesthetic Review: No Changes in Pt Med Stat, Meds/Allgs Chart Reviewed, Consent Obtained/Reviewed and Anes Risks/Benef Reviewed Patient Risk: Intermediate Procedure Risk: Low Anesthetic Plan Anesthetic Plan: MAC: and Agree w/ Assess. and Plan Disposition: Standard PACU
[2022-11-12 10:41] VITALS: BP 115/53; PULSE 66; RESP 18; TEMP 36.6; O2SAT 98
[2022-11-12] MEDS: Lactated Ringers 1,000 ML 100 ML IVCONT (10:43)
[2022-11-12 10:56] LABS: Glucose, Whole Blood 95 mg/dL (60-115)
[2022-11-12] MEDS: Albuterol Sulfate (0.083%) 2.5 MG/3 ML VIAL.NEB INHALE (10:56)
[2022-11-12 10:58] VITALS: PULSE 58; RESP 18; O2SAT 100
--- NOTE | 2022-11-12 11:18 | P.OP_ITS ---
Operative Note Operative Note Date of Service: 11/12/22 Narrative: Procedure: Esophagogastroduodenoscopy Endoscopist: Eboni Paredes MD Indication: Abd pain, nausea Anesthesia Provider: Anesthesia Type: MAC ?? EGD Procedure:?? The procedure, indications, preparation and potential complications were reviewed with the patient, who indicated understanding and gave written informed consent to proceed. A medical chemist was utilized to assist with the consent. A physical exam was performed. The endoscope was introduced through the mouth, and advanced to the jejunum until the scope was hubbed. The mucosa was carefully examined on slow withdrawal of the endoscope. The patient tolerated the procedure well. There were no immediate complications.? ? EGD Findings:? * Esophagus:? Normal mucosa noted in the entire esophagus. The Z line was at 36 cm. * Stomach:? The GJ anastomosis was noted at 39 cm and was wide open > 20 mm. There was erythema around the margin. One small 2-3 mm clean based ulcer was noted at the anastomosis. A surgical staple was also seen. Random biopsies were taken from gastric pouch to r/o H pylori. Retroflexion could be easily performed. * Duodenum:? The bakers pouch/blind limb appeared normal. The alimentary limb was intubated until the gastroscope was hubbed but jejunojejunal anastomosis was not reached. Normal mucosa was noted in the whole of the examined jejunum. ? EGD Impressions:? * Normal esophagus * Wide GJ anastomsis * 3 cm long gastric pouch with normal mucosa (biopsy) * Erythema around the anastomosis with one marginal ulcer (clean based) * Surgical staple ?? Recommendations:?? * Follow biopsy results. Our office will call or send a letter with results within 7-10 days. * Start omeprazole 40mg, open capsule and mix granules in pudding/apple sauce * Resume anticoagulation today. * If H pylori +, patient will be prescribed eradication therapy followed by test of cure. * Avoid NSAIDs. * Pt was also advised to follow up with bariatric surgery if concerned for weight gain (which is likely due to the size of pouch and GJ anastomosis) Above has been reviewed with the patient. Relevant educational hand outs were provided at discharge.
--- NOTE | 2022-11-12 11:18 | MHC.SHP ---
Pre-Procedural Eval Section A Date of Service: 11/12/22 Section B Chief Complaint: Abdominal pain, loss of appetite Details of Present Illness: 52 y.o F with hx of RYGB presenting for EGD for abd pain with nausea and loss of appetite. Apixaban on hold since 11/09. Relevant Family History (Specify if Yes): No Present Medications: see Short Stay Collaborative assessment Medical History: Significant History (asthma, RYGB, osteoporosis, IBS) History of Previous Operations: Relevant previous surgery/procedure and date(s) (RYGB ) Allergies: Allergies Allergy/AdvReac Type Severity Reaction Status Date / Time No Known Allergies Allergy Verified 11/12/22 10:37 Review of Systems Review of Systems Comment: 10 point review of system negative except as above Exam Exam Comment: Gen appear: No acute distress, well nourished HEENT: no icterus Chest: No overt resp distress Abd: soft, nontender, nondistended Psych: Stable affect, answering questions appropriately Neuro: A/Ox3 noted to move all extremities spontaneously Ext: no peripheral edema Plan Diagnosis/Plan: Unchanged I have reviewed the history and physical and performed a pertinent physical examination on my patient. No changes have occurred unless specified. Time Spent With Patient Time: Total time managing care of this patient today ____ minutes.
[2022-11-12 11:44] VITALS: BP 110/47; PULSE 66; RESP 17; TEMP 36.8; O2SAT 100
[2022-11-12 11:59] VITALS: BP 112/81; PULSE 64; RESP 18; TEMP 36.8; O2SAT 98
== END 2022-11-12 12:59 | disposition home or self-care (01) ==
PROVIDERS: PCP Internal Medicine; Visit Provider Internal Medicine
PROC: 0DJ08ZZ Inspection of Upper Intestinal Tract, Via Natural or Artificial Opening Endoscopic (ICD-10-PCS; CPT 43235; principal; 2022-11-12 12:00)
DX: R10.13 Epigastric pain (principal); K28.9 Gastrojejunal ulcer, unspecified as acute or chronic, without hemorrhage or perforation; K21.9 Gastro-esophageal reflux disease without esophagitis; R11.2 Nausea with vomiting, unspecified; Z98.84 Bariatric surgery status; J44.9 Chronic obstructive pulmonary disease, unspecified; G89.4 Chronic pain syndrome; G90.522 Complex regional pain syndrome I of left lower limb; M79.7 Fibromyalgia; M54.9 Dorsalgia, unspecified; I10 Essential (primary) hypertension; E66.01 Morbid (severe) obesity due to excess calories; Z68.35 Body mass index [BMI] 35.0-35.9, adult; E11.40 Type 2 diabetes mellitus with diabetic neuropathy, unspecified; I26.99 Other pulmonary embolism without acute cor pulmonale; Z79.01 Long term (current) use of anticoagulants; Z79.52 Long term (current) use of systemic steroids; Z79.899 Other long term (current) drug therapy; Z86.73 Personal history of transient ischemic attack (TIA), and cerebral infarction without residual deficits; Z90.49 Acquired absence of other specified parts of digestive tract
CPT/HCPCS: 43239; 82947; 88305; 88342

== ENCOUNTER 2022-11-13 08:29 | Outpatient (REF) | payer OTHER, SELFPAY | END 2022-11-13 08:30 | disposition home or self-care (01) | LOC: HO.MDS 08:29 | PROVIDERS: Visit Provider Hospitalist | DX: D80.1 Nonfamilial hypogammaglobulinemia (principal) | CPT/HCPCS: 96365; 96366 ==

== ENCOUNTER → 2022-11-25 09:54 | Outpatient (BNVA) | payer OTHER, SELFPAY | PROVIDERS: PCP Internal Medicine; Visit Provider Internal Medicine | DX: K28.9 Gastrojejunal ulcer, unspecified as acute or chronic, without hemorrhage or perforation (principal); R10.9 Unspecified abdominal pain; R63.5 Abnormal weight gain; D64.9 Anemia, unspecified; Z98.84 Bariatric surgery status | CPT/HCPCS: 99212 ==

== ENCOUNTER 2022-11-26 10:59 | Outpatient (REF) | payer OTHER, SELFPAY ==
[2022-11-26 11:58] LABS: INTERNATIONAL NORM RATIO 0.9 (0.9-1.1); Prothrombin Time 10.7 SEC (10.0-13.1)
[2022-11-26 12:49] LABS: Iron 62 mcg/dL (30-160); Percent Iron Saturation 15 % (15-50); Total Iron Binding Capacity 405 mcg/dL (228-428); Unsaturated Iron Binding 343 ug/dL
[2022-11-26 13:11] LABS: Ferritin 13 ng/mL (10-250); TSH reflex Free T4 0.97 uIU/mL (0.32-4.0); Vitamin D 25-OH Total 16.4 ng/mL (>30)
[2022-11-26 13:20] LABS: Folate 5.2 ng/mL (> or = 4.0); Vitamin B12 826 pg/mL (200-900)
[2022-12-01 13:43] LABS: Zinc 50 mcg/dL (60-130)
[2022-12-01 15:44] LABS: Copper, plasma 88 mcg/dL (70-175)
[2022-12-02 10:04] LABS: Alpha-Tocopherol 11.2 mg/L (5.7-19.9); Beta-Gamma Tocopherol 1.2 mg/L (<=4.3)
[2022-12-02 10:13] LABS: Vitamin A 69 mcg/dL (38-98)
== END 2022-11-26 11:00 | disposition home or self-care (01) ==
LOC: HO.LAB 10:59
PROVIDERS: PCP Internal Medicine; Visit Provider Internal Medicine
DX: Z98.84 Bariatric surgery status (principal)
CPT/HCPCS: 36415; 82306; 82525; 82607; 82728; 82746; 83540; 84443; 84446; 84590; 84630; 85610

== ENCOUNTER 2022-11-27 17:23 | Observation (INO) | payer OTHER, SELFPAY ==
--- NOTE | ~2022-11-27 | CT_ITS ---
EXAMINATION: CT HEAD WITHOUT CONTRAST CLINICAL INFORMATION: Headache COMPARISON: CT head 09/13/2022 TECHNIQUE: Contiguous axial imaging was performed from the skull base to vertex without intravenous administration of contrast. This CT examination was performed using dose optimization techniques as appropriate, variously including the following: *Automated exposure control *Adjustment of mA and/or kV according to patient size (this includes techniques or standardized protocols for targeted exams where dose is matched to indication/reason for exam; i.e. extremities or head) *Use of iterative reconstruction technique DLP: 667 mGy-cm FINDINGS: FINDINGS: There is no evidence of acute intracranial hemorrhage or territorial infarction. No abnormal mass effect or midline shift is seen. Hua to white matter differentiation is well preserved. No extra-axial fluid collections are identified. The ventricles are normal in size. There is mild periventricular and subcortical white matter hypoattenuation, most likely representing microangiopathic disease Paranasal sinuses and mastoid air cells are well-aerated. There is resolution of the previously noted opacification the left sphenoid sinus. CT/CT head/brain wo IV con IMPRESSION: No CT evidence of acute intracranial hemorrhage or edematous territorial infarction. Etiology of the patient's symptoms has not been determined.. Further evaluation with CT or MRI as clinically warranted.
--- NOTE | ~2022-11-27 | XR_ITS ---
EXAMINATION: XR CHEST CLINICAL INFORMATION: Cough COMPARISON: Chest x-ray 11/08/2022 TECHNIQUE: 2 views of the chest were obtained. FINDINGS: No airspace consolidation. No pleural effusion or pneumothorax. Cardiomediastinal silhouette and pulmonary vascularity are within normal limits. No evidence of pulmonary edema. No acute osseous injury identified. XR/XR chest 2V IMPRESSION: No acute pulmonary process.
--- NOTE | ~2022-11-27 | XR_ITS ---
EXAMINATION: XR ABDOMEN KUB CLINICAL INDICATION: Abdominal pain COMPARISON: 09/13/2022 TECHNIQUE: AP view of the abdomen. FINDINGS: Bowel gas pattern is nonobstructive. Relatively large volume of stool is present. No gross evidence of free air, though assessment is suboptimal with supine positioning. Cholecystectomy clips in the right upper quadrant. Suture lines noted in the left abdomen. No acute osseous findings are seen. XR/XR KUB IMPRESSION: Large volume of stool. Nonobstructive bowel gas pattern.
[2022-11-27 17:39] VITALS: BP 95/51; PULSE 114; RESP 18; TEMP 36.8; O2SAT 98; BMI 34.3
--- NOTE | 2022-11-27 17:39 | ED_ITS ---
HPI - General Adult General Chief complaint: Dyspnea <MEGA Garcia - Last Filed: 11/27/22 17:42> Stated complaint: headache, multiple complaints <MEGA Garcia - Last Filed: 11/27/22 17:42> Time Seen by Provider: 11/27/22 18:03 <MEGA Garcia - Last Filed: 11/27/22 17:42> Related Data Home medications: Home Medications Medication Instructions Recorded Confirmed montelukast 10 mg tablet 10 mg PO BEDTIME 08/02/20 11/28/22 cyanocobalamin (vitamin B-12) 1,000 mcg PO DAILY 11/05/20 11/28/22 1,000 mcg tablet quetiapine 400 mg tablet (Seroquel) 400 mg PO BEDTIME 06/02/22 11/28/22 artificial tears with lanolin eye 1 appl ophthalmic (eye) DAILY PRN 08/21/22 11/28/22 ointment Dry Eye(S) escitalopram oxalate 10 mg tablet 1 tab PO DAILY 08/21/22 11/28/22 immune glob,gamm(IgG) 10 %-pro-IgA 40 g IV QMONTH 08/21/22 11/28/22 0 to 50 mcg/mL intravenous solution (Privigen) miconazole nitrate 2 % topical 1 appl topical BID PRN Rash 08/21/22 11/28/22 powder zolpidem 10 mg tablet 1 tab PO BEDTIME 08/21/22 11/28/22 losartan 100 mg tablet 1 tab PO DAILY 11/10/22 11/28/22 Previous Rx's Medication Instructions Recorded albuterol sulfate 90 mcg/actuation 1 inh inhalation QID PRN shortness 10/13/20 aerosol inhaler of breath or wheezing #18 grams roflumilast 500 mcg tablet 500 mcg PO DAILY 30 days #30 tabs 11/03/21 (Daliresp) acetaminophen 500 mg tablet 500 mg PO Q6H PRN pain or fever 01/21/22 (Tylenol Extra Strength) #20 tabs gabapentin 300 mg capsule 600 mg PO BID 30 days #120 caps 04/03/22 (Neurontin) dicyclomine 20 mg tablet 20 mg PO QID PRN abdominal pain 06/27/22 #20 tabs cljaazhszbbgy-MB-vspgzvtbrhb 2.5 30 ml PO Q6-8H PRN cough #118 mL 07/21/22 mg-5 mg-50 mg/5 mL oral liquid (Robitussin Cough and Cold CF) docusate sodium 100 mg capsule 100 mg PO BID #30 caps 08/23/22 guaifenesin 100 mg/5 mL oral liquid 200 mg (10 mL) PO Q4H PRN Cough 08/23/22 #473 mL polyethylene glycol 3350 17 gram 17 g PO BID PRN constipation #30 ea 08/23/22 oral powder packet albuterol sulfate 2.5 mg/3 mL 2.5 mg (3 mL) inhalation Q4H PRN 09/08/22 (0.083 %) solution for nebulization shortness of breath or wheezing 30 days #360 mL aluminum-mag hydroxide-simethicone 10 ml PO QID PRN indigestion 14 09/08/22 200 mg-200 mg-20 mg/5 mL oral susp days #355 mL (Maalox Advanced) dextromethorphan-guaifenesin 5 10 ml PO Q4H PRN cough 14 days 09/08/22 mg-100 mg/5 mL oral liquid #355 mL aluminum-mag hydroxide-simethicone 5 ml PO 5XD PRN dyspepsia #355 mL 09/13/22 200 mg-200 mg-20 mg/5 mL oral susp (Maalox Advanced) apixaban 2.5 mg tablet (Eliquis) 2.5 mg PO BID #180 tabs 10/15/22 oxycodone 5 mg tablet 5 mg PO TID PRN pain 30 days #90 11/04/22 tabs benzonatate 200 mg capsule 200 mg PO BID PRN cough #14 caps 11/08/22 prednisone 50 mg tablet 50 mg PO DAILY 4 days #4 tabs 11/08/22 omeprazole 40 mg capsule,delayed 40 mg PO BID 30 days #60 caps 11/25/22 release sucralfate 1 gram tablet 1 g PO QIDACHS 14 days #60 tabs 11/25/22 cholecalciferol (vitamin D3) 1,250 1,250 mcg PO QWEEK 6 weeks #6 caps 11/26/22 mcg (50,000 unit) capsule ferrous sulfate 325 mg (65 mg 325 mg PO DAILY 90 days #90 tabs 11/26/22 iron) tablet sennosides 8.6 mg tablet (senna) 8.6 mg PO BID 90 days #180 tabs 11/26/22 ondansetron 4 mg disintegrating 4 mg PO TID PRN nausea and 11/27/22 tablet vomiting 5 days #20 tabs <MEGA Garcia - Last Filed: 11/27/22 17:42> Allergies/adverse reactions: Allergies Allergy/AdvReac Type Severity Reaction Status Date / Time No Known Allergies Allergy Verified 11/27/22 20:49 <MEGA Garcia - Last Filed: 11/27/22 17:42> FORMERLY [facility], [facility]–1983 Past Medical History Medical History: Medical History Anemia Arthritis Asthma exacerbation Asthma-COPD overlap syndrome Back pain Bronchitis Chronic pain syndrome Complex regional pain syndrome i of left lower limb Cough Depression Diabetic neuropathy Diet-controlled diabetes mellitus Disc degeneration, lumbosacral Dizziness Elevated lactic acid level Essential hypertension Fibromyalgia Headache Headache, migraine History of COVID-19 Hypogammaglobulinemia Hypothyroidism Laryngotracheitis Low back pain Morbid obesity Nausea vomiting and diarrhea BABATUNDE (obstructive sleep apnea) Osteoporosis Pleuritic chest pain 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 Pulmonary embolism Sleep apnea Spondylosis of cervical spine 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 TIA (transient ischemic attack) Type 2 diabetes mellitus with unspecified complications <MEGA Garcia - Last Filed: 11/27/22 17:42> Surgical History: Surgical History History of bariatric surgery History of cholecystectomy History of esophagogastroduodenoscopy (EGD) Hx of colonoscopy S/P total abdominal hysterectomy <MEGA Garcia - Last Filed: 11/27/22 17:42> Family History Family History: Family History Mother Diabetes Stroke Family/Other Diabetes Father Diabetes Maternal Aunt Cancer <MEGA Garcia - Last Filed: 11/27/22 17:42> Social History Social History: Social History Household Members: Caregiver Housing: House Are you a primary health care / medical job titles to a significant other at home: No Do you presently have visiting nurse or other home services: No Alcohol intake: never Patient Tobacco Use Status: Never used Tobacco Smoked in Last 30 Days: No e-Cigarette/Vaping Use: Never Used Second Hand Smoke Exposure: No Use of substances other than those prescribed or required for medical reasons: No Advance Directives: No Advance Directives Information Provided: No Advance Directives Date on File: 05/23/21 Patient : No service: No Current occupational status: unemployed and disabled <MEGA Garcia - Last Filed: 11/27/22 17:42> Physical Exam ED Vital Signs: Vital Signs - 24 hr 11/27/22 17:39 11/27/22 19:22 11/27/22 21:10 Temperature 98.3 F 98.6 F Pulse Rate 114 H 91 93 Respiratory Rate 18 18 16 Blood Pressure 95/51 L 110/59 L Pulse Oximetry 98 98 Oxygen Delivery Method Room Air Room Air 11/27/22 22:36 11/28/22 00:13 Temperature 98.7 F 98.1 F Pulse Rate 104 H 93 Respiratory Rate 22 H 31 H Blood Pressure 104/49 L 121/60 Pulse Oximetry 99 99 Oxygen Delivery Method Room Air Room Air BMI result Body Mass Index 34.3 <MEGA Garcia - Last Filed: 11/27/22 17:42> Vital Signs - 24 hr 11/27/22 17:39 11/27/22 19:22 11/27/22 21:10 Temperature 98.3 F 98.6 F Pulse Rate 114 H 91 93 Respiratory Rate 18 18 16 Blood Pressure 95/51 L 110/59 L Pulse Oximetry 98 98 Oxygen Delivery Method Room Air Room Air 11/27/22 22:36 11/28/22 00:13 Temperature 98.7 F 98.1 F Pulse Rate 104 H 93 Respiratory Rate 22 H 31 H Blood Pressure 104/49 L 121/60 Pulse Oximetry 99 99 Oxygen Delivery Method Room Air Room Air BMI result Body Mass Index 34.3 <Reyes Fragoso MD - Last Filed: 11/28/22 08:06> Course Course Course Narrative: RME performed by Celeste Irwin PA-C. Patient is a 52 year old female presenting to the emergency department with a cough / asthma exacerbation / and a known PE on Eliquis. Labs, CXR, and EKG ordered. Patient placed back in waiting room pending results and room availability. <MEGA Garcia - Last Filed: 11/27/22 17:42> Medications Administered Generic Name Dose Route Start Last Admin Trade Name Freq PRN Reason Stop Dose Admin Albuterol Sulfate 5 mg 11/27/22 20:59 11/27/22 21:09 Albuterol Sulfate (0.083%) 2.5 Mg/3 Ml Vial.Neb INHALE 5 mg Q20M PRN Administration Wheezing Albuterol/Ipratropium 3 ml 11/28/22 08:00 11/28/22 07:42 Albuterol/Iprat 2.5/0.5mg 3 Ml Ampul.Neb INHALE 3 ml RQ4H WHILE AWAKE OMERO Administration Apixaban 2.5 mg 11/28/22 01:15 11/28/22 01:42 Apixaban 2.5 Mg Tablet PO 2.5 mg BID OMERO Administration Benzonatate 200 mg 11/28/22 01:09 11/28/22 01:42 Benzonatate 100 Mg Capsule PO 200 mg BID PRN Administration cough Methylprednisolone Sodium Succinate 40 mg 11/28/22 01:15 11/28/22 01:51 Methylprednisolone Sod Succ 40 Mg/Ml Vial IVPUSH Not Given Q12H OMERO Montelukast Sodium 10 mg 11/28/22 01:15 11/28/22 01:51 Montelukast Sodium 10 Mg Tablet PO Not Given BEDTIME OMERO Omeprazole 40 mg 11/28/22 01:15 11/28/22 01:51 Omeprazole 40 Mg Capsule.Dr PO Not Given BID OMERO Oxycodone HCl 5 mg 11/28/22 00:20 11/28/22 01:41 Oxycodone Hcl Immed Release 5 Mg Tablet PO 5 mg Q6H PRN Administration Pain, Severe (Pain Scale 7-10) Quetiapine Fumarate 400 mg 11/28/22 01:15 11/28/22 01:48 Quetiapine Fumarate 400 Mg Tablet PO 400 mg BEDTIME OMERO Administration Zolpidem Tartrate 10 mg 11/28/22 01:15 11/28/22 01:44 Zolpidem Tartrate 5 Mg Tablet PO 10 mg BEDTIME OMERO Administration Discontinued Medications Generic Name Dose Route Start Last Admin Trade Name Frecodey PRN Reason Stop Dose Admin Sodium Chloride 1,000 mls @ 999 mls/hr 11/27/22 19:45 11/27/22 21:02 Ns IVCONT 11/27/22 20:45 Infused .Q1H1M OMERO Infusion Lorazepam 1 mg 11/27/22 20:59 11/27/22 21:34 Lorazepam 1 Mg Tablet PO 11/27/22 21:00 1 mg ONCE ONE Administration Morphine Sulfate 4 mg 11/27/22 19:39 11/27/22 19:58 Morphine Sulfate 4 Mg/Ml Cartridge IVPUSH 11/27/22 19:40 4 mg ONCE ONE Administration Protocol <MEGA Garcia - Last Filed: 11/27/22 17:42> Medications Administered Generic Name Dose Route Start Last Admin Trade Name Freq PRN Reason Stop Dose Admin Albuterol Sulfate 5 mg 11/27/22 20:59 11/27/22 21:09 Albuterol Sulfate (0.083%) 2.5 Mg/3 Ml Vial.Neb INHALE 5 mg Q20M PRN Administration Wheezing Albuterol/Ipratropium 3 ml 11/28/22 08:00 11/28/22 07:42 Albuterol/Iprat 2.5/0.5mg 3 Ml Ampul.Neb INHALE 3 ml RQ4H WHILE AWAKE OMERO Administration Apixaban 2.5 mg 11/28/22 01:15 11/28/22 01:42 Apixaban 2.5 Mg Tablet PO 2.5 mg BID OMERO Administration Benzonatate 200 mg 11/28/22 01:09 11/28/22 01:42 Benzonatate 100 Mg Capsule PO 200 mg BID PRN Administration cough Methylprednisolone Sodium Succinate 40 mg 11/28/22 01:15 11/28/22 01:51 Methylprednisolone Sod Succ 40 Mg/Ml Vial IVPUSH Not Given Q12H OMERO Montelukast Sodium 10 mg 11/28/22 01:15 11/28/22 01:51 Montelukast Sodium 10 Mg Tablet PO Not Given BEDTIME OMERO Omeprazole 40 mg 11/28/22 01:15 11/28/22 01:51 Omeprazole 40 Mg Capsule.Dr PO Not Given BID OMERO Oxycodone HCl 5 mg 11/28/22 00:20 11/28/22 01:41 Oxycodone Hcl Immed Release 5 Mg Tablet PO 5 mg Q6H PRN Administration Pain, Severe (Pain Scale 7-10) Quetiapine Fumarate 400 mg 11/28/22 01:15 11/28/22 01:48 Quetiapine Fumarate 400 Mg Tablet PO 400 mg BEDTIME OMERO Administration Zolpidem Tartrate 10 mg 11/28/22 01:15 11/28/22 01:44 Zolpidem Tartrate 5 Mg Tablet PO 10 mg BEDTIME OMERO Administration Discontinued Medications Generic Name Dose Route Start Last Admin Trade Name Renato PRN Reason Stop Dose Admin Sodium Chloride 1,000 mls @ 999 mls/hr 11/27/22 19:45 11/27/22 21:02 Ns IVCONT 11/27/22 20:45 Infused .Q1H1M OMERO Infusion Lorazepam 1 mg 11/27/22 20:59 11/27/22 21:34 Lorazepam 1 Mg Tablet PO 11/27/22 21:00 1 mg ONCE ONE Administration Morphine Sulfate 4 mg 11/27/22 19:39 11/27/22 19:58 Morphine Sulfate 4 Mg/Ml Cartridge IVPUSH 11/27/22 19:40 4 mg ONCE ONE Administration Protocol <Reyes Fragoso MD - Last Filed: 11/28/22 08:06> Medical Decision Making Medical Decision Making [facility] Narrative: Patient present with a headache malaise shortness of breath we get x-ray labs reassess <Reyes Fragoso MD - Last Filed: 11/28/22 08:06> Differential Diagnosis Differential Diagnoses: The differential diagnosis associated with the presentation includes <Reyes Fragoso MD - Last Filed: 11/28/22 08:06> Migraine, meningitis, asthma exacerbation, pneumonia, CHF <Reyes Fragoso MD - Last Filed: 11/28/22 08:06> Admission/Observation Consideration of admission/observation: Escalation of care including admission/observation considered <Reyes Fragoso MD - Last Filed: 11/28/22 08:06> Consult Healthcare Provider Management of the patient was discussed with: Hospitalist <Reyes Fragoso MD - Last Filed: 11/28/22 08:06> Lab Data [facility] Lab Attestation statement: I reviewed the patient's lab results. <Reyes Fragoso MD - Last Filed: 11/28/22 08:06> Result Diagrams: 11/27/22 17:59 11/27/22 17:59 <MEGA Garcia - Last Filed: 11/27/22 17:42> Labs: Lab Results 11/27/22 11/27/22 11/27/22 Range/Units 17:59 17:59 17:59 WBC 13.6 H (4.8-10.8) X10*3/uL RBC 3.86 L (4.20-5.50) X10*6/uL Hgb 10.0 L (12.0-16.0) g/dl Hct 33.0 L (37.0-47.0) % MCV 85.5 (80.0-98.0) fL MCH 25.9 L (27.0-33.0) pg MCHC 30.3 L (31.0-35.0) g/dl RDW 16.4 H (11.0-16.0) % Plt Count 281 (160-400) X10*3/uL MPV 9.0 L (9.4-12.3) fL Immature Gran % (Auto) 2.2 H (0.0-0.4) % Neut % (Auto) 90.6 H (45-73) % Lymph % (Auto) 2.8 L (20-40) % [place] % (Auto) 4.3 (2-11) % Eos % (Auto) 0.0 (0-4) % Baso % (Auto) 0.1 (0-2) % Lymph # (Auto) 0.4 L (1.2-4.9) X10*3/uL [place] # (Auto) 0.6 (0.1-1.2) X10*3/uL Eos # (Auto) 0.0 (0.0-0.4) X10*3/uL Baso # (Auto) 0.0 (0.0-0.2) X10*3/uL Abs Immat Gran (auto) 0.30 H (0.00-0.03) X10*3/uL Absolute Neuts (auto) 12.4 H (2.0-8.3) x10*3/uL Absolute Nucleated RBC 0.000 (0.0-0.012) X10*3/uL Nucleated RBC % (auto) 0.0 (0.0-0.2) /100WBC Smear Tech's Comments VERIFIED PT 10.7 (10.0-13.1) SEC INR 0.9 (0.9-1.1) APTT 30.9 (26.0-36.4) SEC Sodium 140 (135-145) mmol/L Potassium 3.4 D (3.3-5.1) mmol/L Chloride 109 H (96-108) mmol/L Carbon Dioxide 15 L (22-29) mmol/L Anion Gap 19 (12-20) BUN 20 H (9-16) mg/dL Creatinine 1.22 (0.5-1.4) mg/dL Estim Creat Clear Calc 47.8 Estimated GFR 46 Random Glucose 126 H (60-115) mg/dL Calcium 9.6 (8.4-10.2) mg/dL Magnesium 1.8 (1.6-2.6) mg/dL Total Bilirubin 0.2 (0.0-1.0) mg/dL AST 12 (5-31) U/L ALT 20 (0-31) U/L Alkaline Phosphatase 87 (39-117) U/L Troponin I High Sens (<3.5-17.0) ng/L Total Protein 5.8 L (6.5-8.0) g/dL Albumin 3.5 (3.5-5.0) g/dL Influenza Type A (PCR) (Negative) Influenza Type B (PCR) (Negative) RSV RNA Qual (PCR) (Negative) SARS-CoV-2 RNA (RT-PCR) (Negative) 11/27/22 11/27/22 Range/Units 17:59 17:59 WBC (4.8-10.8) X10*3/uL RBC (4.20-5.50) X10*6/uL Hgb (12.0-16.0) g/dl Hct (37.0-47.0) % MCV (80.0-98.0) fL MCH (27.0-33.0) pg MCHC (31.0-35.0) g/dl RDW (11.0-16.0) % Plt Count (160-400) X10*3/uL MPV (9.4-12.3) fL Immature Gran % (Auto) (0.0-0.4) % Neut % (Auto) (45-73) % Lymph % (Auto) (20-40) % [place] % (Auto) (2-11) % Eos % (Auto) (0-4) % Baso % (Auto) (0-2) % Lymph # (Auto) (1.2-4.9) X10*3/uL [place] # (Auto) (0.1-1.2) X10*3/uL Eos # (Auto) (0.0-0.4) X10*3/uL Baso # (Auto) (0.0-0.2) X10*3/uL Abs Immat Gran (auto) (0.00-0.03) X10*3/uL Absolute Neuts (auto) (2.0-8.3) x10*3/uL Absolute Nucleated RBC (0.0-0.012) X10*3/uL Nucleated RBC % (auto) (0.0-0.2) /100WBC Smear Tech's Comments PT (10.0-13.1) SEC INR (0.9-1.1) APTT (26.0-36.4) SEC Sodium (135-145) mmol/L Potassium (3.3-5.1) mmol/L Chloride (96-108) mmol/L Carbon Dioxide (22-29) mmol/L Anion Gap (12-20) BUN (9-16) mg/dL Creatinine (0.5-1.4) mg/dL Estim Creat Clear Calc Estimated GFR Random Glucose (60-115) mg/dL Calcium (8.4-10.2) mg/dL Magnesium (1.6-2.6) mg/dL Total Bilirubin (0.0-1.0) mg/dL AST (5-31) U/L ALT (0-31) U/L Alkaline Phosphatase (39-117) U/L Troponin I High Sens 4.0 (<3.5-17.0) ng/L Total Protein (6.5-8.0) g/dL Albumin (3.5-5.0) g/dL Influenza Type A (PCR) NEGATIVE (Negative) Influenza Type B (PCR) NEGATIVE (Negative) RSV RNA Qual (PCR) NEGATIVE (Negative) SARS-CoV-2 RNA (RT-PCR) NEGATIVE (Negative) <MEGA Garcia - Last Filed: 11/27/22 17:42> Lab Results 11/27/22 11/27/22 11/27/22 Range/Units 17:59 17:59 17:59 WBC 13.6 H (4.8-10.8) X10*3/uL RBC 3.86 L (4.20-5.50) X10*6/uL Hgb 10.0 L (12.0-16.0) g/dl Hct 33.0 L (37.0-47.0) % MCV 85.5 (80.0-98.0) fL MCH 25.9 L (27.0-33.0) pg MCHC 30.3 L (31.0-35.0) g/dl RDW 16.4 H (11.0-16.0) % Plt Count 281 (160-400) X10*3/uL MPV 9.0 L (9.4-12.3) fL Immature Gran % (Auto) 2.2 H (0.0-0.4) % Neut % (Auto) 90.6 H (45-73) % Lymph % (Auto) 2.8 L (20-40) % [place] % (Auto) 4.3 (2-11) % Eos % (Auto) 0.0 (0-4) % Baso % (Auto) 0.1 (0-2) % Lymph # (Auto) 0.4 L (1.2-4.9) X10*3/uL [place] # (Auto) 0.6 (0.1-1.2) X10*3/uL Eos # (Auto) 0.0 (0.0-0.4) X10*3/uL Baso # (Auto) 0.0 (0.0-0.2) X10*3/uL Abs Immat Gran (auto) 0.30 H (0.00-0.03) X10*3/uL Absolute Neuts (auto) 12.4 H (2.0-8.3) x10*3/uL Absolute Nucleated RBC 0.000 (0.0-0.012) X10*3/uL Nucleated RBC % (auto) 0.0 (0.0-0.2) /100WBC Smear Tech's Comments VERIFIED PT 10.7 (10.0-13.1) SEC INR 0.9 (0.9-1.1) APTT 30.9 (26.0-36.4) SEC Sodium 140 (135-145) mmol/L Potassium 3.4 D (3.3-5.1) mmol/L Chloride 109 H (96-108) mmol/L Carbon Dioxide 15 L (22-29) mmol/L Anion Gap 19 (12-20) BUN 20 H (9-16) mg/dL Creatinine 1.22 (0.5-1.4) mg/dL Estim Creat Clear Calc 47.8 Estimated GFR 46 Random Glucose 126 H (60-115) mg/dL Calcium 9.6 (8.4-10.2) mg/dL Magnesium 1.8 (1.6-2.6) mg/dL Total Bilirubin 0.2 (0.0-1.0) mg/dL AST 12 (5-31) U/L ALT 20 (0-31) U/L Alkaline Phosphatase 87 (39-117) U/L Troponin I High Sens (<3.5-17.0) ng/L Total Protein 5.8 L (6.5-8.0) g/dL Albumin 3.5 (3.5-5.0) g/dL Influenza Type A (PCR) (Negative) Influenza Type B (PCR) (Negative) RSV RNA Qual (PCR) (Negative) SARS-CoV-2 RNA (RT-PCR) (Negative) 11/27/22 11/27/22 Range/Units 17:59 17:59 WBC (4.8-10.8) X10*3/uL RBC (4.20-5.50) X10*6/uL Hgb (12.0-16.0) g/dl Hct (37.0-47.0) % MCV (80.0-98.0) fL MCH (27.0-33.0) pg MCHC (31.0-35.0) g/dl RDW (11.0-16.0) % Plt Count (160-400) X10*3/uL MPV (9.4-12.3) fL Immature Gran % (Auto) (0.0-0.4) % Neut % (Auto) (45-73) % Lymph % (Auto) (20-40) % [place] % (Auto) (2-11) % Eos % (Auto) (0-4) % Baso % (Auto) (0-2) % Lymph # (Auto) (1.2-4.9) X10*3/uL [place] # (Auto) (0.1-1.2) X10*3/uL Eos # (Auto) (0.0-0.4) X10*3/uL Baso # (Auto) (0.0-0.2) X10*3/uL Abs Immat Gran (auto) (0.00-0.03) X10*3/uL Absolute Neuts (auto) (2.0-8.3) x10*3/uL Absolute Nucleated RBC (0.0-0.012) X10*3/uL Nucleated RBC % (auto) (0.0-0.2) /100WBC Smear Tech's Comments PT (10.0-13.1) SEC INR (0.9-1.1) APTT (26.0-36.4) SEC Sodium (135-145) mmol/L Potassium (3.3-5.1) mmol/L Chloride (96-108) mmol/L Carbon Dioxide (22-29) mmol/L Anion Gap (12-20) BUN (9-16) mg/dL Creatinine (0.5-1.4) mg/dL Estim Creat Clear Calc Estimated GFR Random Glucose (60-115) mg/dL Calcium (8.4-10.2) mg/dL Magnesium (1.6-2.6) mg/dL Total Bilirubin (0.0-1.0) mg/dL AST (5-31) U/L ALT (0-31) U/L Alkaline Phosphatase (39-117) U/L Troponin I High Sens 4.0 (<3.5-17.0) ng/L Total Protein (6.5-8.0) g/dL Albumin (3.5-5.0) g/dL Influenza Type A (PCR) NEGATIVE (Negative) Influenza Type B (PCR) NEGATIVE (Negative) RSV RNA Qual (PCR) NEGATIVE (Negative) SARS-CoV-2 RNA (RT-PCR) NEGATIVE (Negative) <Reyes Fragoso MD - Last Filed: 11/28/22 08:06> Independent Interpretation Interpretation: normal cxr <Reyes Fragoso MD - Last Filed: 11/28/22 08:06> Radiology Impression Radiologist Impression: Chest x-ray 11/08/2022 TECHNIQUE: 2 views of the chest were obtained. FINDINGS: No airspace consolidation. No pleural effusion or pneumothorax. Cardiomediastinal silhouette and pulmonary vascularity are within normal limits. No evidence of pulmonary edema. No acute osseous injury identified. XR/XR chest 2V IMPRESSION: No acute pulmonary process. ? Dictated By: Lucio Johns Signed By: <Electronically signed by Lucio? Andreas in OV> 11/27/22 1840 <Reyes Fragoso MD - Last Filed: 11/28/22 08:06> Prescription Management Patient remains very symptomatic care with multiple complaints malaise shortness of breath labs showed a metabolic acidosis with bicarb of 15 she also has a mild leukocytosis I think is very reasonable to admit the patient for observation IV fluids albuterol. I discussed the case with the hospitalist she agreed with the plan plan admission <Reyes Fragoso MD - Last Filed: 11/28/22 08:06> Discharge Plan Discharge Clinical Impression: Metabolic acidosis, Asthma exacerbation <MEGA Garcia - Last Filed: 11/27/22 17:42> Patient Disposition: Admitted as Observation <MEGA Garcia - Last Filed: 11/27/22 17:42> Interventions: Admission Worksheet (ED) Last Done: 11/28/22 03:53 <MEGA Garcia - Last Filed: 11/27/22 17:42> Discharge Date/Time: 11/28/22 04:15 <MEGA Garcia - Last Filed: 11/27/22 17:42>
--- NOTE | 2022-11-27 17:41 | ECG_ITS ---
Test Reason : CP Blood Pressure : / mmHG Vent. Rate : 106 BPM Atrial Rate : 106 BPM P-R Int : 132 ms QRS Dur : 100 ms QT Int : 382 ms P-R-T Axes : 057 -01 018 degrees QTc Int : 507 ms Sinus tachycardia Possible Left atrial enlargement RSR' or QR pattern in V1 suggests right ventricular conduction delay Minimal voltage criteria for LVH, may be normal variant ( R in aVL ) Borderline ECG When compared with ECG of 13-SEP-2022 17:19, Vent. rate has increased BY 48 BPM QT has lengthened Referred By: Celeste Irwin Electronically Signed By:ISIDORO MORALES
[2022-11-27 18:13] LABS: INTERNATIONAL NORM RATIO 0.9 (0.9-1.1); Prothrombin Time 10.7 SEC (10.0-13.1)
--- NOTE | 2022-11-27 18:13 | ED.GENADULT ---
HPI - General Adult General Chief complaint: Dyspnea Stated complaint: headache, multiple complaints Time Seen by Provider: 11/27/22 18:03 Source: patient Mode of arrival: ambulatory Limitations: no limitations History of Present Illness HPI narrative: This is a 52 years old female presented to the ED with multiple somatic complain of back pain shortness of breath headache. Symptoms started yesterday she has history of PD she is anticoagulated apixaban my. Denies any fever vomiting and diarrhea Onset (ago): day(s) (2) Radiation: non-radiation Severity: moderate Pain Consistency: constant Exacerbating factors: none Related Data Home Medications Medication Instructions Recorded Confirmed montelukast 10 mg tablet 10 mg PO BEDTIME 08/02/20 11/28/22 cyanocobalamin (vitamin B-12) 1,000 mcg PO DAILY 11/05/20 11/28/22 1,000 mcg tablet quetiapine 400 mg tablet (Seroquel) 400 mg PO BEDTIME 06/02/22 11/28/22 artificial tears with lanolin eye 1 appl ophthalmic (eye) DAILY PRN 08/21/22 11/28/22 ointment Dry Eye(S) escitalopram oxalate 10 mg tablet 1 tab PO DAILY 08/21/22 11/28/22 immune glob,gamm(IgG) 10 %-pro-IgA 40 g IV QMONTH 08/21/22 11/28/22 0 to 50 mcg/mL intravenous solution (Privigen) miconazole nitrate 2 % topical 1 appl topical BID PRN Rash 08/21/22 11/28/22 powder zolpidem 10 mg tablet 1 tab PO BEDTIME 08/21/22 11/28/22 losartan 100 mg tablet 1 tab PO DAILY 11/10/22 11/28/22 Previous Rx's Medication Instructions Recorded albuterol sulfate 90 mcg/actuation 1 inh inhalation QID PRN shortness 10/13/20 aerosol inhaler of breath or wheezing #18 grams roflumilast 500 mcg tablet 500 mcg PO DAILY 30 days #30 tabs 11/03/21 (Daliresp) acetaminophen 500 mg tablet 500 mg PO Q6H PRN pain or fever 01/21/22 (Tylenol Extra Strength) #20 tabs gabapentin 300 mg capsule 600 mg PO BID 30 days #120 caps 04/03/22 (Neurontin) dicyclomine 20 mg tablet 20 mg PO QID PRN abdominal pain 06/27/22 #20 tabs [id number]-[id number]-nobchftrpbt 2.5 30 ml PO Q6-8H PRN cough #118 mL 07/21/22 mg-5 mg-50 mg/5 mL oral liquid (Robitussin Cough and Cold CF) docusate sodium 100 mg capsule 100 mg PO BID #30 caps 08/23/22 guaifenesin 100 mg/5 mL oral liquid 200 mg (10 mL) PO Q4H PRN Cough 08/23/22 #473 mL polyethylene glycol 3350 17 gram 17 g PO BID PRN constipation #30 ea 08/23/22 oral powder packet albuterol sulfate 2.5 mg/3 mL 2.5 mg (3 mL) inhalation Q4H PRN 09/08/22 (0.083 %) solution for nebulization shortness of breath or wheezing 30 days #360 mL aluminum-mag hydroxide-simethicone 10 ml PO QID PRN indigestion 14 09/08/22 200 mg-200 mg-20 mg/5 mL oral susp days #355 mL (Maalox Advanced) dextromethorphan-guaifenesin 5 10 ml PO Q4H PRN cough 14 days 09/08/22 mg-100 mg/5 mL oral liquid #355 mL aluminum-mag hydroxide-simethicone 5 ml PO 5XD PRN dyspepsia #355 mL 09/13/22 200 mg-200 mg-20 mg/5 mL oral susp (Maalox Advanced) apixaban 2.5 mg tablet (Eliquis) 2.5 mg PO BID #180 tabs 10/15/22 oxycodone 5 mg tablet 5 mg PO TID PRN pain 30 days #90 11/04/22 tabs benzonatate 200 mg capsule 200 mg PO BID PRN cough #14 caps 11/08/22 prednisone 50 mg tablet 50 mg PO DAILY 4 days #4 tabs 11/08/22 omeprazole 40 mg capsule,delayed 40 mg PO BID 30 days #60 caps 11/25/22 release sucralfate 1 gram tablet 1 g PO QIDACHS 14 days #60 tabs 11/25/22 cholecalciferol (vitamin D3) 1,250 1,250 mcg PO QWEEK 6 weeks #6 caps 11/26/22 mcg (50,000 unit) capsule ferrous sulfate 325 mg (65 mg 325 mg PO DAILY 90 days #90 tabs 11/26/22 iron) tablet sennosides 8.6 mg tablet (senna) 8.6 mg PO BID 90 days #180 tabs 11/26/22 ondansetron 4 mg disintegrating 4 mg PO TID PRN nausea and 11/27/22 tablet vomiting 5 days #20 tabs Allergies Allergy/AdvReac Type Severity Reaction Status Date / Time No Known Allergies Allergy Verified 11/27/22 20:49 Review of Systems Constitutional: Constitutional: Reports no additional constitutional complaints ENT: Reports system reviewed and no additional complaints, except as documented Cardiovascular: Cardiovascular: Reports no additional cardiovascular complaints and Reports dyspnea Respiratory: Respiratory: Reports dyspnea PMFSH Past Medical History Medical History Anemia Arthritis Asthma exacerbation Asthma-COPD overlap syndrome Back pain Bronchitis Chronic pain syndrome Complex regional pain syndrome i of left lower limb Cough Depression Diabetic neuropathy Diet-controlled diabetes mellitus Disc degeneration, lumbosacral Dizziness Elevated lactic acid level Essential hypertension Fibromyalgia Headache Headache, migraine History of COVID-19 Hypogammaglobulinemia Hypothyroidism Laryngotracheitis Low back pain Morbid obesity Nausea vomiting and diarrhea BABATUNDE (obstructive sleep apnea) Osteoporosis Pleuritic chest pain 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 Pulmonary embolism Sleep apnea Spondylosis of cervical spine 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 TIA (transient ischemic attack) Type 2 diabetes mellitus with unspecified complications Surgical History History of bariatric surgery History of cholecystectomy History of esophagogastroduodenoscopy (EGD) Hx of colonoscopy S/P total abdominal hysterectomy Family History Family History Mother Diabetes Stroke Family/Other Diabetes Father Diabetes Maternal Aunt Cancer Social History Social History Household Members: Caregiver Housing: House Are you a primary healthcare receptionist to a significant other at home: No Do you presently have visiting nurse or other home services: No Alcohol intake: never Patient Tobacco Use Status: Never used Tobacco Smoked in Last 30 Days: No e-Cigarette/Vaping Use: Never Used Second Hand Smoke Exposure: No Use of substances other than those prescribed or required for medical reasons: No Advance Directives: No Advance Directives Information Provided: No Advance Directives Date on File: 05/23/21 Patient : No service: No Current occupational status: unemployed and disabled Physical Exam ED Vital Signs: Vital Signs - 24 hr 11/27/22 17:39 11/27/22 19:22 11/27/22 21:10 Temperature 98.3 F 98.6 F Pulse Rate 114 H 91 93 Respiratory Rate 18 18 16 Blood Pressure 95/51 L 110/59 L Pulse Oximetry 98 98 Oxygen Delivery Method Room Air Room Air 11/27/22 22:36 11/28/22 00:13 Temperature 98.7 F 98.1 F Pulse Rate 104 H 93 Respiratory Rate 22 H 31 H Blood Pressure 104/49 L 121/60 Pulse Oximetry 99 99 Oxygen Delivery Method Room Air Room Air BMI result Body Mass Index 34.3 Const General: cooperative Nutritional Appearance: average body habitus and well nourished Limitations: no limitations HENMT Head: Yes normal to inspection Ears: hearing grossly normal bilaterally General nose exam: Normal external nose present Face and sinus: Yes normal facial exam Mouth: Normal oral and palatal mucosa present Throat: Yes posterior oropharynx normal Neck Neck: Yes normal visual inspection Chest Chest palpation & inspection: normal inspection of the chest and normal palpation of entire chest wall Resp Effort & Inspection: normal respiratory effort Auscultation: clear to auscultation bilaterally Cardio Jugular venous distension: no JVD Rate: regular rate Rhythm: regular rhythm GI Inspection: Yes normal to inspection Palpation (GI): Soft to palpation, not firm, nontender and no guarding Auscultation: normal bowel sounds General: Yes no CVA tenderness Back/Spine/Pelvis Back: no CVA tenderness Medications Administered Generic Name Dose Route Start Last Admin Trade Name Freq PRN Reason Stop Dose Admin Albuterol Sulfate 5 mg 11/27/22 20:59 11/27/22 21:09 Albuterol Sulfate (0.083%) 2.5 Mg/3 Ml Vial.Neb INHALE 5 mg Q20M PRN Administration Wheezing Albuterol/Ipratropium 3 ml 11/28/22 08:00 11/28/22 07:42 Albuterol/Iprat 2.5/0.5mg 3 Ml Ampul.Neb INHALE 3 ml RQ4H WHILE AWAKE OMERO Administration Apixaban 2.5 mg 11/28/22 01:15 11/28/22 01:42 Apixaban 2.5 Mg Tablet PO 2.5 mg BID OMERO Administration Benzonatate 200 mg 11/28/22 01:09 11/28/22 01:42 Benzonatate 100 Mg Capsule PO 200 mg BID PRN Administration cough Methylprednisolone Sodium Succinate 40 mg 11/28/22 01:15 11/28/22 01:51 Methylprednisolone Sod Succ 40 Mg/Ml Vial IVPUSH Not Given Q12H OMERO Montelukast Sodium 10 mg 11/28/22 01:15 11/28/22 01:51 Montelukast Sodium 10 Mg Tablet PO Not Given BEDTIME OMERO Omeprazole 40 mg 11/28/22 01:15 11/28/22 01:51 Omeprazole 40 Mg Capsule.Dr PO Not Given BID OMERO Oxycodone HCl 5 mg 11/28/22 00:20 11/28/22 01:41 Oxycodone Hcl Immed Release 5 Mg Tablet PO 5 mg Q6H PRN Administration Pain, Severe (Pain Scale 7-10) Quetiapine Fumarate 400 mg 11/28/22 01:15 11/28/22 01:48 Quetiapine Fumarate 400 Mg Tablet PO 400 mg BEDTIME OMERO Administration Zolpidem Tartrate 10 mg 11/28/22 01:15 11/28/22 01:44 Zolpidem Tartrate 5 Mg Tablet PO 10 mg BEDTIME OMERO Administration Discontinued Medications Generic Name Dose Route Start Last Admin Trade Name Freq PRN Reason Stop Dose Admin Sodium Chloride 1,000 mls @ 999 mls/hr 11/27/22 19:45 11/27/22 21:02 Ns IVCONT 11/27/22 20:45 Infused .Q1H1M OMERO Infusion Lorazepam 1 mg 11/27/22 20:59 11/27/22 21:34 Lorazepam 1 Mg Tablet PO 11/27/22 21:00 1 mg ONCE ONE Administration Morphine Sulfate 4 mg 11/27/22 19:39 11/27/22 19:58 Morphine Sulfate 4 Mg/Ml Cartridge IVPUSH 11/27/22 19:40 4 mg ONCE ONE Administration Protocol Medical Decision Making Medical Decision Making MDM Narrative: presented with multiple complaints [place]/back pain Differential Diagnosis Differential Diagnoses: The differential diagnosis associated with the presentation includes pneumonia/asthma ex/ Lab Data MDM Lab Attestation statement: I reviewed the patient's lab results. 11/27/22 17:59 11/27/22 17:59 Labs: Lab Results 11/27/22 11/27/22 11/27/22 Range/Units 17:59 17:59 17:59 WBC 13.6 H (4.8-10.8) X10*3/uL RBC 3.86 L (4.20-5.50) X10*6/uL Hgb 10.0 L (12.0-16.0) g/dl Hct 33.0 L (37.0-47.0) % MCV 85.5 (80.0-98.0) fL MCH 25.9 L (27.0-33.0) pg MCHC 30.3 L (31.0-35.0) g/dl RDW 16.4 H (11.0-16.0) % Plt Count 281 (160-400) X10*3/uL MPV 9.0 L (9.4-12.3) fL Immature Gran % (Auto) 2.2 H (0.0-0.4) % Neut % (Auto) 90.6 H (45-73) % Lymph % (Auto) 2.8 L (20-40) % [place] % (Auto) 4.3 (2-11) % Eos % (Auto) 0.0 (0-4) % Baso % (Auto) 0.1 (0-2) % Lymph # (Auto) 0.4 L (1.2-4.9) X10*3/uL [place] # (Auto) 0.6 (0.1-1.2) X10*3/uL Eos # (Auto) 0.0 (0.0-0.4) X10*3/uL Baso # (Auto) 0.0 (0.0-0.2) X10*3/uL Abs Immat Gran (auto) 0.30 H (0.00-0.03) X10*3/uL Absolute Neuts (auto) 12.4 H (2.0-8.3) x10*3/uL Absolute Nucleated RBC 0.000 (0.0-0.012) X10*3/uL Nucleated RBC % (auto) 0.0 (0.0-0.2) /100WBC Smear Tech's Comments VERIFIED PT 10.7 (10.0-13.1) SEC INR 0.9 (0.9-1.1) APTT 30.9 (26.0-36.4) SEC Sodium 140 (135-145) mmol/L Potassium 3.4 D (3.3-5.1) mmol/L Chloride 109 H (96-108) mmol/L Carbon Dioxide 15 L (22-29) mmol/L Anion Gap 19 (12-20) BUN 20 H (9-16) mg/dL Creatinine 1.22 (0.5-1.4) mg/dL Estim Creat Clear Calc 47.8 Estimated GFR 46 Random Glucose 126 H (60-115) mg/dL Calcium 9.6 (8.4-10.2) mg/dL Magnesium 1.8 (1.6-2.6) mg/dL Total Bilirubin 0.2 (0.0-1.0) mg/dL AST 12 (5-31) U/L ALT 20 (0-31) U/L Alkaline Phosphatase 87 (39-117) U/L Troponin I High Sens (<3.5-17.0) ng/L Total Protein 5.8 L (6.5-8.0) g/dL Albumin 3.5 (3.5-5.0) g/dL Influenza Type A (PCR) (Negative) Influenza Type B (PCR) (Negative) RSV RNA Qual (PCR) (Negative) SARS-CoV-2 RNA (RT-PCR) (Negative) 11/27/22 11/27/22 Range/Units 17:59 17:59 WBC (4.8-10.8) X10*3/uL RBC (4.20-5.50) X10*6/uL Hgb (12.0-16.0) g/dl Hct (37.0-47.0) % MCV (80.0-98.0) fL MCH (27.0-33.0) pg MCHC (31.0-35.0) g/dl RDW (11.0-16.0) % Plt Count (160-400) X10*3/uL MPV (9.4-12.3) fL Immature Gran % (Auto) (0.0-0.4) % Neut % (Auto) (45-73) % Lymph % (Auto) (20-40) % [place] % (Auto) (2-11) % Eos % (Auto) (0-4) % Baso % (Auto) (0-2) % Lymph # (Auto) (1.2-4.9) X10*3/uL [place] # (Auto) (0.1-1.2) X10*3/uL Eos # (Auto) (0.0-0.4) X10*3/uL Baso # (Auto) (0.0-0.2) X10*3/uL Abs Immat Gran (auto) (0.00-0.03) X10*3/uL Absolute Neuts (auto) (2.0-8.3) x10*3/uL Absolute Nucleated RBC (0.0-0.012) X10*3/uL Nucleated RBC % (auto) (0.0-0.2) /100WBC Smear Tech's Comments PT (10.0-13.1) SEC INR (0.9-1.1) APTT (26.0-36.4) SEC Sodium (135-145) mmol/L Potassium (3.3-5.1) mmol/L Chloride (96-108) mmol/L Carbon Dioxide (22-29) mmol/L Anion Gap (12-20) BUN (9-16) mg/dL Creatinine (0.5-1.4) mg/dL Estim Creat Clear Calc Estimated GFR Random Glucose (60-115) mg/dL Calcium (8.4-10.2) mg/dL Magnesium (1.6-2.6) mg/dL Total Bilirubin (0.0-1.0) mg/dL AST (5-31) U/L ALT (0-31) U/L Alkaline Phosphatase (39-117) U/L Troponin I High Sens 4.0 (<3.5-17.0) ng/L Total Protein (6.5-8.0) g/dL Albumin (3.5-5.0) g/dL Influenza Type A (PCR) NEGATIVE (Negative) Influenza Type B (PCR) NEGATIVE (Negative) RSV RNA Qual (PCR) NEGATIVE (Negative) SARS-CoV-2 RNA (RT-PCR) NEGATIVE (Negative) Radiology Impression Radiologist Impression: DLP: 667 mGy-cm FINDINGS: FINDINGS: There is no evidence of acute intracranial hemorrhage or territorial infarction. No abnormal mass effect or midline shift is seen. Hua to white matter differentiation is well preserved. No extra-axial fluid collections are identified. The ventricles are normal in size. There is mild periventricular and subcortical white matter hypoattenuation, most likely representing microangiopathic disease Paranasal sinuses and mastoid air cells are well-aerated. There is resolution of the previously noted opacification the left sphenoid sinus. CT/CT head/brain wo IV con IMPRESSION: No CT evidence of acute intracranial hemorrhage or edematous territorial infarction. Etiology of the patient's symptoms has not been determined.. Further evaluation with CT or MRI as clinically warranted. ? ? COMPARISON: Chest x-ray 11/08/2022 TECHNIQUE: 2 views of the chest were obtained. FINDINGS: No airspace consolidation. No pleural effusion or pneumothorax. Cardiomediastinal silhouette and pulmonary vascularity are within normal limits. No evidence of pulmonary edema. No acute osseous injury identified. XR/XR chest 2V IMPRESSION: No acute pulmonary process. ? Discharge Plan Discharge Clinical Impression: Metabolic acidosis, Asthma exacerbation Patient Disposition: Admitted as Observation Interventions: Admission Worksheet (ED) Last Done: 11/28/22 03:53 Discharge Date/Time: 11/28/22 04:15
[2022-11-27 18:16] LABS: Partial Thromboplastin Time 30.9 SEC (26.0-36.4)
[2022-11-27 18:25] LABS: Alanine Aminotransferase 20 U/L (0-31); Albumin Level 3.5 g/dL (3.5-5.0); Alkaline Phosphatase 87 U/L (39-117); Anion Gap 19 (12-20); Aspartate Amino Transferase 12 U/L (5-31); Bilirubin Total 0.2 mg/dL (0.0-1.0); Blood Urea Nitrogen 20 mg/dL (9-16); Calcium 9.6 mg/dL (8.4-10.2); Carbon Dioxide 15 mmol/L (22-29); Chloride 109 mmol/L (96-108); Creatinine Clr Calc Pharmacy 47.8; Estimated Glomerular Filt Rate 46; Glucose Random 126 mg/dL (60-115); Magnesium 1.8 mg/dL (1.6-2.6); Potassium 3.4 mmol/L (3.3-5.1); Sodium 140 mmol/L (135-145); Total Protein 5.8 g/dL (6.5-8.0)
[2022-11-27 18:31] LABS: Basophils Percent Auto 0.1 % (0-2); Imm Gran Pct Auto 2.2 % (0.0-0.4); Lymphocytes Absolute Auto 0.4 X10*3/uL (1.2-4.9); Lymphocytes Percent Auto 2.8 % (20-40); MANUAL DIFF FLAG SCAN; Mean Corpuscular HGB Conc 30.3 g/dl (31.0-35.0); Mean Corpuscular Hemoglobin 25.9 pg (27.0-33.0); Mean Corpuscular Volume 85.5 fL (80.0-98.0); Monocytes Absolute Auto 0.6 X10*3/uL (0.1-1.2); Monocytes Percent Auto 4.3 % (2-11); Neutrophils Absolute Auto 12.4 x10*3/uL (2.0-8.3); Neutrophils Percent Auto 90.6 % (45-73); Platelet Count 281 X10*3/uL (160-400); Red Blood Count 3.86 X10*6/uL (4.20-5.50); Red Cell Distribution Width 16.4 % (11.0-16.0); SCAN SMEAR FLAG 1; White Blood Count 13.6 X10*3/uL (4.8-10.8)
[2022-11-27 18:41] LABS: Influenza A PCR NEGATIVE (Negative); Influenza B PCR NEGATIVE (Negative); Resp Syncy Virus RNA Qual PCR NEGATIVE (Negative); SARS COV2 PCR INHOUSE NEGATIVE (Negative)
[2022-11-27 18:52] LABS: SLIDE REVIEW VERIFIED
[2022-11-27 19:22] VITALS: BP 110/59; PULSE 91; RESP 18; TEMP 37; O2SAT 98
--- NOTE | 2022-11-27 19:29 | PC.NURSE ---
assumed care of patient at this time a&ox4 pt rating pain 10/10 headache, chest pain, back pain - that pt states is affecting her gait pt is tearful provider notified
[2022-11-27] MEDS: Morphine Sulfate 4 MG/ML CARTRIDGE IVPUSH (19:58)
[2022-11-27] MEDS: 0.9 % Sodium Chloride 1,000 ML 999 ML IVCONT (19:59)
--- NOTE | 2022-11-27 20:55 | PC.NURSE ---
notified provider of pt's productive cough and wheezing; anxiety provider aware; pending orders in MAR ophthalmic medical technologist to follow
--- NOTE | 2022-11-27 21:00 | PC.NURSE ---
no sob, pt able to speak in full sentences; apparent pt is anxious; O2Sat at 99% on RA, 20RR, 99HR
--- NOTE | 2022-11-27 21:02 | PC.NURSE ---
called respiratory [id number] for breathing txmt respiratory aware
[2022-11-27] MEDS: Albuterol Sulfate (0.083%) 2.5 MG/3 ML VIAL.NEB 5 MG INHALE (21:09)
[2022-11-27 21:10] VITALS: PULSE 93; RESP 16; O2SAT 98
[2022-11-27] MEDS: LORazepam 1 MG TABLET PO (21:34)
[2022-11-27 22:36] VITALS: BP 104/49; PULSE 104; RESP 22; TEMP 37.1; O2SAT 99
[2022-11-28] VITALS (13 sets, daily range): BP systolic 93–124; BP diastolic 54–82; PULSE 75–94; RESP 12–31; TEMP 36–37.1; O2SAT 94–99
[2022-11-28] MEDS: oxyCODONE HCl Immed Release 5 MG TABLET PO ×2 (01:41→08:42)
[2022-11-28] MEDS: Benzonatate 100 MG CAPSULE 200 MG PO ×2 (01:42→12:09)
[2022-11-28] MEDS: Apixaban 2.5 MG TABLET PO ×3 (01:42→21:41)
[2022-11-28] MEDS: Zolpidem Tartrate 5 MG TABLET 10 MG PO ×2 (01:44→21:40)
[2022-11-28] MEDS: QUEtiapine Fumarate 400 MG TABLET PO ×2 (01:48→21:41)
--- NOTE | 2022-11-28 02:08 | PC.NURSE ---
I assumed nursing care of Maye at [address] Maye has been resting in bed, frequent coughing noted - dry sounding non-productive cough. RR 18-22, non-labored. She speaks in full sentences, no cyanosis, room air sat's 94% or better. She is taking PO meds and fluids and food without difficulty. She has ambulated to and from the bathroom with assistance with unsteady gait. She is aware that she should ask for assistance when getting OOB. bed placed in lowest position, pt understands how to call for help appropriately. Pt is awaiting inpatient bed assignment and verbalizes an understanding of this. We will continue to monitor Maye.
[2022-11-28 05:53] LABS: ABG Base Excess 5.5 mmol/L; ABG HCO3 30 mmol/L (22-26); ABG pCO2 46 mmHg (32-45); ABG pH 7.42 (7.35-7.45); ABG pO2 109 mmHg (83-108)
[2022-11-28 05:56] LABS: ABG Refer to POC result
--- NOTE | 2022-11-28 06:53 | P.HPHOSP_ITS ---
History of Present Illness Date of Service: 11/28/22 Chief Complaint: Abdominal pain This is a 52-year-old female with frequent admissions to this hospital for various reason who has a past medical history of anemia, asthma COPD overlap syndrome, chronic pain syndrome, complex regional pain syndrome, depression, d iabetes with diabetic neuropathy, HTN, fibromyalgia, migraine headaches, hypothyroidism, hypomanic, hypogammaglobenemia, BABATUNDE, among others who presents the hospital with various complaints including abdominal pain, back pain, headache, as well as shortness of breath and wheezing. She has various co mplaints including headache with no neurological complaints, no weakness numbness or tingling, she has chest pain that is worse with coughing, she has abdominal pain worse with coughing. She denies any urinary symptoms, no diarrhea, no lower extremity edema. On arrival to the ED patient has a heart rate of 114 BP of 95/51, satting 98% on room air Labs are significant for WBC count of 13.6, hemoglobin of time which is around her baseline, hematocrit 33, pH of 7.42, pCO2 of 46, bicarb of 15, Chest x-ray shows no acute pulmonary process, has CT negative for any acute abnormality Abdominal KUB shows large volume of stools, nonobstructive bowel gas pattern Patient being admitted for management of asthma exacerbation Review of Systems Review of Systems: Yes all other systems are reviewed and are negative [facility] Medical History Anemia Arthritis Asthma exacerbation Asthma-COPD overlap syndrome Back pain Bronchitis Chronic pain syndrome Complex regional pain syndrome i of left lower limb Cough Depression Diabetic neuropathy Diet-controlled diabetes mellitus Disc degeneration, lumbosacral Dizziness Elevated lactic acid level Essential hypertension Fibromyalgia Headache Headache, migraine History of COVID-19 Hypogammaglobulinemia Hypothyroidism Laryngotracheitis Low back pain Morbid obesity Nausea vomiting and diarrhea BABATUNDE (obstructive sleep apnea) Osteoporosis Pleuritic chest pain 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 Pulmonary embolism Sleep apnea Spondylosis of cervical spine 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 TIA (transient ischemic attack) Type 2 diabetes mellitus with unspecified complications Family History Mother Diabetes Stroke Family/Other Diabetes Father Diabetes Maternal Aunt Cancer Surgical History History of bariatric surgery History of cholecystectomy History of esophagogastroduodenoscopy (EGD) Hx of colonoscopy S/P total abdominal hysterectomy Social History Household Members: Caregiver Housing: House Are you a primary career professional to a significant other at home: No Do you presently have visiting nurse or other home services: No Alcohol intake: never Patient Tobacco Use Status: Never used Tobacco Smoked in Last 30 Days: No e-Cigarette/Vaping Use: Never Used Second Hand Smoke Exposure: No Use of substances other than those prescribed or required for medical reasons: No Advance Directives: No Advance Directives Information Provided: No Advance Directives Date on File: 05/23/21 Patient : No service: No Current occupational status: unemployed and disabled Meds Allergies Allergy/AdvReac Type Severity Reaction Status Date / Time No Known Allergies Allergy Verified 11/27/22 20:49 Active Medications: Current Medications Acetaminophen (Acetaminophen 325 Mg Tablet) 650 mg PO Q6H PRN PRN Reason: Pain, Mild (Pain Scale 1-3) Al Hydroxide/Mg Hydroxide (Magnesium Hydrox/Alum Hydrox 30 Ml Oral.Susp) 5 ml PO 5XD PRN PRN Reason: dyspepsia Albuterol Sulfate (Albuterol Sulfate (0.083%) 2.5 Mg/3 Ml Vial.Neb) 5 mg INHALE Q20M PRN PRN Reason: Wheezing Last Admin: 11/27/22 21:09 Dose: 5 mg Albuterol Sulfate (Albuterol Sulfate (0.083%) 2.5 Mg/3 Ml Vial.Neb) 2.5 mg INHALE Q4H PRN PRN Reason: shortness of breath or wheezing Albuterol Sulfate (Albuterol Sulfate 90 Mcg 8 Gm Inhaler) 1 puff INHALE QID PRN PRN Reason: shortness of breath or wheezing Albuterol/Ipratropium (Albuterol/Iprat 2.5/0.5mg 3 Ml Ampul.Neb) 3 ml INHALE RQ4H PRN PRN Reason: Shortness of Breath/Wheezing Albuterol/Ipratropium (Albuterol/Iprat 2.5/0.5mg 3 Ml Ampul.Neb) 3 ml INHALE RQ4H WHILE AWAKE [facility] Apixaban (Apixaban 2.5 Mg Tablet) 2.5 mg PO BID [facility] Last Admin: 11/28/22 01:42 Dose: 2.5 mg Benzonatate (Benzonatate 100 Mg Capsule) 200 mg PO BID PRN PRN Reason: cough Last Admin: 11/28/22 01:42 Dose: 200 mg Cyanocobalamin (Cyanocobalamin (Vitamin B-12) 1,000 Mcg Tablet) 1,000 mcg PO DAILY [facility] Dicyclomine HCl (Dicyclomine Hcl 10 Mg Capsule) 20 mg PO QID PRN PRN Reason: abdominal pain Docusate Sodium (Docusate Sodium 100 Mg Capsule) 100 mg PO DAILY PRN PRN Reason: Constipation Docusate Sodium (Docusate Sodium 100 Mg Capsule) 100 mg PO BID [facility] Escitalopram Oxalate (Escitalopram Oxalate 10 Mg Tablet) 10 mg PO DAILY [facility] Ferrous Sulfate (Ferrous Sulfate 324 Mg Tablet.) 324 mg PO DAILY [facility] Gabapentin (Gabapentin 300 Mg Capsule) 600 mg PO BID [facility] Guaifenesin/Dextromethorphan (Guaifenesin Dm 100/10/5 Ml 5 Ml Syrup) 5 ml PO Q4H PRN PRN Reason: Cough Losartan Potassium (Losartan Potassium 50 Mg Tablet) 100 mg PO DAILY [facility]; Protocol Methylprednisolone Sodium Succinate (Methylprednisolone Sod Succ 40 Mg/Ml Vial) 40 mg IVPUSH Q12H [facility] Last Admin: 11/28/22 01:51 Dose: Not Given Miconazole Nitrate (Miconazole Nitrate 2% Powder 85 Gm Bottle) 1 appl TOPICAL BID PRN; Protocol PRN Reason: Rash Montelukast Sodium (Montelukast Sodium 10 Mg Tablet) 10 mg PO BEDTIME [facility] Last Admin: 11/28/22 01:51 Dose: Not Given Non-Formulary Medication (Cholecalciferol (Vitamin D3)) 1,250 mcg PO Q7D [facility] Non-Formulary Medication (Immun Glob G(Igg)-Pro-Iga 0-50 [Privigen]) 40 gm IV Q30D [facility] Non-Formulary Medication (Mzijxqdxpwglq-Do-Ibtubanhrsp [Robitussin Cough And Cold Cf]) 30 ml PO RQ6H PRN PRN Reason: cough Non-Formulary Medication (Roflumilast [Daliresp]) 500 mcg PO DAILY [facility] Omeprazole (Omeprazole 40 Mg Capsule.) 40 mg PO BID [facility] Last Admin: 11/28/22 01:51 Dose: Not Given Ondansetron HCl (Ondansetron Hcl 4 Mg/2 Ml Vial) 4 mg IVPUSH Q8H PRN PRN Reason: Nausea and Vomiting Oxycodone HCl (Oxycodone Hcl Immed Release 5 Mg Tablet) 5 mg PO Q6H PRN PRN Reason: Pain, Severe (Pain Scale 7-10) Last Admin: 11/28/22 01:41 Dose: 5 mg Oxycodone HCl (Oxycodone Hcl Immed Release 5 Mg Tablet) 5 mg PO TID PRN PRN Reason: Pain, Severe (Pain Scale 7-10) Polyethylene Glycol (Polyethylene Glycol 3350 17 Gm Powd.Pack) 17 gm PO BID PRN PRN Reason: constipation Quetiapine Fumarate (Quetiapine Fumarate 400 Mg Tablet) 400 mg PO BEDTIME [facility] Last Admin: 11/28/22 01:48 Dose: 400 mg Senna (Sennosides 8.6 Mg Tablet) 8.6 mg PO BID [facility] Sodium Chloride (0.9 % Sodium Chloride Flush 3 Ml Syringe) 3 ml IVFLUSH QSHIFT [facility] Sucralfate (Sucralfate 1 Gm Tablet) 1 gm PO QIDACHS [facility] Zolpidem Tartrate (Zolpidem Tartrate 5 Mg Tablet) 10 mg PO BEDTIME [facility] Last Admin: 11/28/22 01:44 Dose: 10 mg Home Medications Medication Instructions Recorded Confirmed Last Taken Type montelukast 10 mg tablet 10 mg PO BEDTIME 08/02/20 11/28/22 11/11/21 History cyanocobalamin (vitamin B-12) 1,000 mcg PO DAILY 11/05/20 11/28/22 11/11/21 History 1,000 mcg tablet quetiapine 400 mg tablet (Seroquel) 400 mg PO BEDTIME 06/02/22 11/28/22 Unknown History artificial tears with lanolin eye 1 appl ophthalmic (eye) DAILY PRN 08/21/22 11/28/22 Unknown History ointment Dry Eye(S) escitalopram oxalate 10 mg tablet 1 tab PO DAILY 08/21/22 11/28/22 Unknown History immune glob,gamm(IgG) 10 %-pro-IgA 40 g IV QMONTH 08/21/22 11/28/22 07/23/22 History 0 to 50 mcg/mL intravenous solution (Privigen) miconazole nitrate 2 % topical 1 appl topical BID PRN Rash 08/21/22 11/28/22 Unknown History powder zolpidem 10 mg tablet 1 tab PO BEDTIME 08/21/22 11/28/22 Unknown History losartan 100 mg tablet 1 tab PO DAILY 11/10/22 11/28/22 Unknown History Physical Exam Vital Signs and Narrative: Vital Signs: Last Vital Signs Temp 98 F 11/28/22 04:39 Pulse 75 11/28/22 04:39 Resp 18 11/28/22 04:39 BP 109/57 L 11/28/22 04:39 Pulse Ox 97 11/28/22 04:39 O2 Del Method 11/28/22 04:39 BMI result Body Mass Index 34.3 Const: General: cooperative and no acute distress Orientation/consciousness: patient oriented x3 Eyes: General: appearance normal, both eyes and all related structures Resp: Other: Expiratory wheezing Effort & Inspection: normal respiratory effort Cardio: Rate: regular rate Rhythm: regular rhythm GI: Other: Abdomen is diffusely tender, no rebound or guarding Palpation (GI): Soft to palpation Auscultation: normal bowel sounds Skin: General skin exam: no rashes or lesions noted Neuro: General: patient oriented x3 Cognition (Neuro): normal cognition Extrem: General: Yes normal to inspection and Yes no pedal edema Results Labs 11/27/22 17:59 11/27/22 17:59 Labs: Laboratory Results - last 24 hr 11/27/22 11/27/22 11/27/22 17:59 17:59 17:59 MCV 85.5 MCH 25.9 L MCHC 30.3 L RDW 16.4 H Plt Count 281 MPV 9.0 L Immature Gran % (Auto) 2.2 H Neut % (Auto) 90.6 H Lymph % (Auto) 2.8 L [place] % (Auto) 4.3 Eos % (Auto) 0.0 Baso % (Auto) 0.1 Lymph # (Auto) 0.4 L [place] # (Auto) 0.6 Eos # (Auto) 0.0 Baso # (Auto) 0.0 Abs Immat Gran (auto) 0.30 H Absolute Neuts (auto) 12.4 H Absolute Nucleated RBC 0.000 Nucleated RBC % (auto) 0.0 Smear Tech's Comments VERIFIED PT 10.7 INR 0.9 APTT 30.9 O2 Saturation ABG pH at Pt Temp ABG pCO2 at Pt Temp ABG pO2 at Pt Temp ABG HCO3 ABG Base Excess (Actual) Anion Gap 19 Estim Creat Clear Calc 47.8 Estimated GFR 46 Random Glucose 126 H Calcium 9.6 Magnesium 1.8 Total Bilirubin 0.2 AST 12 ALT 20 Alkaline Phosphatase 87 Troponin I High Sens Total Protein 5.8 L Albumin 3.5 Influenza Type A (PCR) Influenza Type B (PCR) RSV RNA Qual (PCR) SARS-CoV-2 RNA (RT-PCR) 11/27/22 11/27/22 11/28/22 17:59 17:59 05:46 MCV MCH MCHC RDW Plt Count MPV Immature Gran % (Auto) Neut % (Auto) Lymph % (Auto) Latimer % (Auto) Eos % (Auto) Baso % (Auto) Lymph # (Auto) Latimer # (Auto) Eos # (Auto) Baso # (Auto) Abs Immat Gran (auto) Absolute Neuts (auto) Absolute Nucleated RBC Nucleated RBC % (auto) Smear Tech's Comments PT INR APTT O2 Saturation 96.0 ABG pH at Pt Temp 7.42 ABG pCO2 at Pt Temp 46 H ABG pO2 at Pt Temp 109 H ABG HCO3 30 H ABG Base Excess (Actual) 5.5 Anion Gap Estim Creat Clear Calc Estimated GFR Random Glucose Calcium Magnesium Total Bilirubin AST ALT Alkaline Phosphatase Troponin I High Sens 4.0 Total Protein Albumin Influenza Type A (PCR) NEGATIVE Influenza Type B (PCR) NEGATIVE RSV RNA Qual (PCR) NEGATIVE SARS-CoV-2 RNA (RT-PCR) NEGATIVE Imaging Radiologist's Impressions: Impressions Chest X-Ray 11/27/22 18:19 IMPRESSION: No acute pulmonary process. Head CT 11/27/22 19:09 IMPRESSION: No CT evidence of acute intracranial hemorrhage or edematous territorial infarction. Etiology of the patient's symptoms has not been determined.. Further evaluation with CT or MRI as clinically warranted. KUB X-Ray 11/28/22 05:57 IMPRESSION: Large volume of stool. Nonobstructive bowel gas pattern. Assessment and Plan (1) Asthma exacerbation: Status: Acute (2) Metabolic acidosis: Status: Acute (3) Abdominal pain: Status: Acute (4) Constipation: Status: Acute Plan 52-year-old female with past medical history of asthma/COPD overlap syndrome, among many other chronic medical issues presents to the hospital with complaints of abdominal pain, chest pain, headache, as well as shortness of breath and wheezing found to have asthma exacerbation # acute asthma exacerbation - no evidence of pneumonia - will treat with IV Solu-Medrol, DuoNeb p.r.n. as well as schedule - no increased oxygen requirement - monitor respiratory status # metabolic acidosis - bicarb of 15 - unclear etiology - pH stable, no CO2 retention - repeat BMP # abdominal pain - likely 2/2 constipation - no evidence of SBO - will tx with bowel regimen - monitor for bowel movements All other chronic issues are stable, will continue her medication Given patient's acute asthma exacerbation patient required minimum 2 night inpatient hospital stay for further management monitor Time Spent With Patient Time: Total time managing care of this patient today ____ minutes. Quality Stroke Does the patient have a stroke diagnosis?: No VTE Prior VTE?: No VTE Risk Level:: Medical - moderate - high VTE Device Contraindication: Treatment Not Indicated VTE Drug Contraindication: Treatment Not Indicated
[2022-11-28 06:54] LABS: MANUAL DIFF FLAG NO
[2022-11-28 07:05] LABS: Basophils Percent Auto 0.1 % (0-2); Eosinophils Absolute Auto 0.1 X10*3/uL (0.0-0.4); Eosinophils Percent Auto 0.4 % (0-4); Hemoglobin 9.3 g/dl (12.0-16.0); Imm Gran Abs Auto 0.17 X10*3/uL (0.00-0.03); Imm Gran Pct Auto 1.3 % (0.0-0.4); Lymphocytes Absolute Auto 2.1 X10*3/uL (1.2-4.9); Lymphocytes Percent Auto 15.3 % (20-40); Mean Corpuscular Hemoglobin 26.1 pg (27.0-33.0); Mean Platelet Volume 9.5 fL (9.4-12.3); Monocytes Absolute Auto 0.7 X10*3/uL (0.1-1.2); Monocytes Percent Auto 5.4 % (2-11); Neutrophils Absolute Auto 10.4 x10*3/uL (2.0-8.3); Neutrophils Percent Auto 77.5 % (45-73); Platelet Count 279 X10*3/uL (160-400); Red Blood Count 3.57 X10*6/uL (4.20-5.50); Red Cell Distribution Width 16.8 % (11.0-16.0); White Blood Count 13.4 X10*3/uL (4.8-10.8)
[2022-11-28 07:22] LABS: Anion Gap 12 (12-20); Blood Urea Nitrogen 20 mg/dL (9-16); Calcium 9.7 mg/dL (8.4-10.2); Carbon Dioxide 25 mmol/L (22-29); Chloride 107 mmol/L (96-108); Creatinine Clr Calc Pharmacy 60.1; Estimated Glomerular Filt Rate > 60; Glucose Random 67 mg/dL (60-115); Potassium 4.3 mmol/L (3.3-5.1); Sodium 140 mmol/L (135-145)
[2022-11-28] MEDS: Albuterol/Iprat 2.5/0.5MG 3 ML AMPUL.NEB INHALE ×4 (07:42→19:17)
[2022-11-28] MEDS: Milk of Magnesia 30 ML ORAL.SUSP 15 ML PO (08:32)
[2022-11-28] MEDS: Omeprazole 40 MG CAPSULE.DR PO ×2 (08:32→21:40)
[2022-11-28] MEDS: Escitalopram Oxalate 10 MG TABLET PO (08:32)
[2022-11-28] MEDS: Gabapentin 300 MG CAPSULE 600 MG PO ×2 (08:32→21:40)
[2022-11-28] MEDS: Cyanocobalamin (Vitamin B-12) 1,000 MCG TABLET 1000 MCG PO (08:33)
[2022-11-28] MEDS: Docusate Sodium 100 MG CAPSULE PO ×2 (08:33→21:41)
[2022-11-28] MEDS: Sennosides 8.6 MG TABLET PO ×2 (08:33→21:41)
[2022-11-28] MEDS: Ferrous Sulfate 324 MG TABLET.DR PO (08:33)
[2022-11-28] MEDS: Losartan Potassium 50 MG TABLET 100 MG PO (08:33)
[2022-11-28] MEDS: Sucralfate 1 GM TABLET PO ×4 (08:33→21:40)
[2022-11-28] MEDS: guaiFENesin DM 100/10/5 ML 5 ML SYRUP PO ×3 (08:50→16:36)
--- NOTE | 2022-11-28 09:25 | PHA.MEDREC ---
Pharmacy Consult ? Medication Reconciliation Pharmacy has completed the medication reconciliation. Utilized behavioral geneticist services. Spoke to patient to confirm meds.
--- NOTE | 2022-11-28 09:42 | MHC.CM.PN ---
CM met with Patient at bedside and addressed PADILLA with her (original given to Patient and a copy has been placed on the chart) and spoke with her over the phone at [phone], with the assist of a Telephonic Veneer Splicer. Patient lives alone in a duplex and uses a walker to assist with mobility. Patient receives [employer] hours/week and the goal is to return home and resume said services. CM has initiated and will follow for dc planning. Patient has received Covid vax x4 and her PCP is Dr. Claudia Villatoro.
[2022-11-28] MEDS: 0.9 % Sodium Chloride Flush 3 ML SYRINGE IVFLUSH ×3 (12:09→21:41)
[2022-11-28] MEDS: methylPREDNISolone Sod Succ 40 MG/ML VIAL IVPUSH (12:11)
--- NOTE | 2022-11-28 15:19 | P.EN_ITS ---
Event Note Date of Service: 11/28/22 Event Note: Day hospitalist update S: This history was taken in Setswana from the patient. C/o wheezing + dyspnea O: Temp Pulse Resp BP Pulse Ox O2 Del Method 97.7 F 76 12 124/68 98 11/28/22 11:39 11/28/22 11:39 11/28/22 11:39 11/28/22 11:39 11/28/22 11:39 11/28/22 11:39 Gen: mild resp distress HEENT: sclera anicteric, moist mucus membranes Neck: supple Lungs: diffuse exp wheezes + insp rhonchi Heart: regular rate and rhythm, no murmurs Abd: soft, non-tender, non-distended, obese Ext: no edema Skin: warm/well-perfused Neuro: alert and oriented x3, no focal findings Psych: appropriate affect Labs: WBC 13.4, SARS-CoV2/flu/RSV PCR all negative AB.42/46/109 A/P: hospital day#1 52yo F with asthma/COPD overlap presenting with dyspnea + wheezing # acute asthma/COPVD exac - IV steroids, scheduled/prn nebs, continue montelukast # metabolic acidosis - unclear cause, resolved # abdominal pain - likely constipation, give bowel regimen # HTN - continue losartan # hx PE - continue apixaban # DM2 - correction-dose lispro # morbid obesity - s/p bariatric surgery # mood disorder - escitalopram, gabapenti, zolpidem, quetiapine # VTE ppx - apixaban # dispo - anticipate eventual return home In my clinical judgment, the patient requires continued hospitalization for the following reasons: resp distress Time Spent With Patient Time: Total time managing care of this patient today __25__ minutes.
[2022-11-28] MEDS: Acetaminophen 325 MG TABLET 650 MG PO (16:32)
[2022-11-28] MEDS: ondansetron HCL 4 MG/2 ML VIAL IVPUSH (19:20)
[2022-11-28] MEDS: Montelukast Sodium 10 MG TABLET PO (21:41)
[2022-11-29] VITALS (10 sets, daily range): BP systolic 96–117; BP diastolic 52–64; PULSE 56–107; RESP 14–18; TEMP 35.9–36.8; O2SAT 95–98
[2022-11-29] MEDS: methylPREDNISolone Sod Succ 40 MG/ML VIAL IVPUSH ×2 (00:21→12:50)
[2022-11-29] MEDS: oxyCODONE HCl Immed Release 5 MG TABLET PO ×3 (05:11→21:29)
[2022-11-29] MEDS: Benzonatate 100 MG CAPSULE 200 MG PO ×2 (05:11→21:29)
[2022-11-29] MEDS: Albuterol/Iprat 2.5/0.5MG 3 ML AMPUL.NEB INHALE ×3 (07:33→19:09)
[2022-11-29] MEDS: guaiFENesin DM 100/10/5 ML 5 ML SYRUP PO ×2 (08:51→16:36)
[2022-11-29] MEDS: Sennosides 8.6 MG TABLET PO ×2 (08:51→21:31)
[2022-11-29] MEDS: Omeprazole 40 MG CAPSULE.DR PO ×2 (08:51→21:29)
[2022-11-29] MEDS: Sucralfate 1 GM TABLET PO ×4 (08:51→21:31)
[2022-11-29] MEDS: Gabapentin 300 MG CAPSULE 600 MG PO ×2 (08:52→21:29)
[2022-11-29] MEDS: Apixaban 2.5 MG TABLET PO ×2 (08:52→21:30)
[2022-11-29] MEDS: Cyanocobalamin (Vitamin B-12) 1,000 MCG TABLET 1000 MCG PO (08:52)
[2022-11-29] MEDS: Docusate Sodium 100 MG CAPSULE PO ×2 (08:52→21:29)
[2022-11-29] MEDS: Losartan Potassium 50 MG TABLET 100 MG PO (08:52)
[2022-11-29] MEDS: Ferrous Sulfate 324 MG TABLET.DR PO (08:53)
[2022-11-29] MEDS: Cholecalciferol (Vitamin D3) 25 MCG TABLET PO (08:53)
[2022-11-29] MEDS: Escitalopram Oxalate 10 MG TABLET PO (08:53)
[2022-11-29] MEDS: 0.9 % Sodium Chloride Flush 3 ML SYRINGE IVFLUSH ×2 (08:57→16:36)
--- NOTE | 2022-11-29 11:19 | P.PNIM_ITS ---
Subjective Subjective Date of Service: 11/29/22 Interval History: still wheezing + short of breath Review of Systems Review of Systems: Yes all other systems are reviewed and are negative Physical Exam Vital Signs: Vital Signs: Last Vital Signs Temp 96.8 F 11/29/22 08:00 Pulse 62 11/29/22 11:18 Resp 18 11/29/22 11:18 BP 107/54 L 11/29/22 08:00 Pulse Ox 96 11/29/22 08:00 O2 Del Method 11/29/22 08:00 BMI result Body Mass Index 34.3 Gen: mild resp distress HEENT: sclera anicteric, moist mucus membranes Neck: supple Lungs: diffuse exp wheezes + insp rhonchi Heart: regular rate and rhythm, no murmurs Abd: soft, non-tender, non-distended, obese Ext: no edema Skin: warm/well-perfused Neuro: alert and oriented x3, no focal findings Psych: appropriate affect Objective Data Active Medications Acetaminophen (Acetaminophen 325 Mg Tablet) 650 mg PO Q6H PRN PRN Reason: Pain, Mild (Pain Scale 1-3) Last Admin: 11/28/22 16:32 Dose: 650 mg Documented By: ALVARO Al Hydroxide/Mg Hydroxide (Magnesium Hydrox/Alum Hydrox 30 Ml Oral.Susp) 5 ml PO 5XD PRN PRN Reason: dyspepsia Albuterol Sulfate (Albuterol Sulfate (0.083%) 2.5 Mg/3 Ml Vial.Neb) 5 mg INHALE Q20M PRN PRN Reason: Wheezing Last Admin: 11/27/22 21:09 Dose: 5 mg Documented By: SELVIN Albuterol Sulfate (Albuterol Sulfate (0.083%) 2.5 Mg/3 Ml Vial.Neb) 2.5 mg INHALE Q4H PRN PRN Reason: shortness of breath or wheezing Albuterol Sulfate (Albuterol Sulfate 90 Mcg 8 Gm Inhaler) 1 puff INHALE QID PRN PRN Reason: shortness of breath or wheezing Albuterol/Ipratropium (Albuterol/Iprat 2.5/0.5mg 3 Ml Ampul.Neb) 3 ml INHALE RQ4H PRN PRN Reason: Shortness of Breath/Wheezing Albuterol/Ipratropium (Albuterol/Iprat 2.5/0.5mg 3 Ml Ampul.Neb) 3 ml INHALE RQ4H WHILE AWAKE [facility] Last Admin: 11/29/22 11:18 Dose: 3 ml Documented By: AXEL Apixaban (Apixaban 2.5 Mg Tablet) 2.5 mg PO BID [facility] Last Admin: 11/29/22 08:52 Dose: 2.5 mg Documented By: ALVARO Benzonatate (Benzonatate 100 Mg Capsule) 200 mg PO BID PRN PRN Reason: cough Last Admin: 11/29/22 05:11 Dose: 200 mg Documented By: NATE Cyanocobalamin (Cyanocobalamin (Vitamin B-12) 1,000 Mcg Tablet) 1,000 mcg PO DAILY [facility] Last Admin: 11/29/22 08:52 Dose: 1,000 mcg Documented By: ALVARO Dicyclomine HCl (Dicyclomine Hcl 10 Mg Capsule) 20 mg PO QID PRN PRN Reason: abdominal pain Docusate Sodium (Docusate Sodium 100 Mg Capsule) 100 mg PO DAILY PRN PRN Reason: Constipation Docusate Sodium (Docusate Sodium 100 Mg Capsule) 100 mg PO BID [facility] Last Admin: 11/29/22 08:52 Dose: 100 mg Documented By: ALVARO Escitalopram Oxalate (Escitalopram Oxalate 10 Mg Tablet) 10 mg PO DAILY [facility] Last Admin: 11/29/22 08:53 Dose: 10 mg Documented By: ALVARO Ferrous Sulfate (Ferrous Sulfate 324 Mg Tablet.Dr) 324 mg PO DAILY [facility] Last Admin: 11/29/22 08:53 Dose: 324 mg Documented By: ALVARO Gabapentin (Gabapentin 300 Mg Capsule) 600 mg PO BID [facility] Last Admin: 11/29/22 08:52 Dose: 600 mg Documented By: ALVARO Guaifenesin/Dextromethorphan (Guaifenesin Dm 100/10/5 Ml 5 Ml Syrup) 5 ml PO Q4H PRN PRN Reason: Cough Last Admin: 11/29/22 08:51 Dose: 5 ml Documented By: ALVARO Losartan Potassium (Losartan Potassium 50 Mg Tablet) 100 mg PO DAILY [facility]; Protocol Last Admin: 11/29/22 08:52 Dose: 100 mg Documented By: ALVARO Methylprednisolone Sodium Succinate (Methylprednisolone Sod Succ 40 Mg/Ml Vial) 40 mg IVPUSH Q12H [facility] Last Admin: 11/29/22 00:21 Dose: 40 mg Documented By: NATE Miconazole Nitrate (Miconazole Nitrate 2% Powder 85 Gm Bottle) 1 appl TOPICAL BID PRN; Protocol PRN Reason: Rash Montelukast Sodium (Montelukast Sodium 10 Mg Tablet) 10 mg PO BEDTIME [facility] Last Admin: 11/28/22 21:41 Dose: 10 mg Documented By: NATE Omeprazole (Omeprazole 40 Mg Capsule.Dr) 40 mg PO BID [facility] Last Admin: 11/29/22 08:51 Dose: 40 mg Documented By: ALVARO Ondansetron HCl (Ondansetron Hcl 4 Mg/2 Ml Vial) 4 mg IVPUSH Q8H PRN PRN Reason: Nausea and Vomiting Last Admin: 11/28/22 19:20 Dose: 4 mg Documented By: NATE Oxycodone HCl (Oxycodone Hcl Immed Release 5 Mg Tablet) 5 mg PO Q6H PRN PRN Reason: Pain, Severe (Pain Scale 7-10) Last Admin: 11/29/22 05:11 Dose: 5 mg Documented By: NATE Oxycodone HCl (Oxycodone Hcl Immed Release 5 Mg Tablet) 5 mg PO TID PRN PRN Reason: Pain, Severe (Pain Scale 7-10) Polyethylene Glycol (Polyethylene Glycol 3350 17 Gm Powd.Pack) 17 gm PO BID PRN PRN Reason: constipation Polyethylene Glycol (Polyethylene Glycol 3350 17 Gm Powd.Pack) 17 gm PO DAILY [facility] Last Admin: 11/29/22 08:58 Dose: Not Given Documented By: ALVARO Non-Admin Reason: Patient Refused Quetiapine Fumarate (Quetiapine Fumarate 400 Mg Tablet) 400 mg PO BEDTIME [facility] Last Admin: 11/28/22 21:41 Dose: 400 mg Documented By: NATE Senna (Sennosides 8.6 Mg Tablet) 8.6 mg PO BID [facility] Last Admin: 11/29/22 08:51 Dose: 8.6 mg Documented By: ALVARO Sodium Chloride (0.9 % Sodium Chloride Flush 3 Ml Syringe) 3 ml IVFLUSH QSHIFT [facility] Last Admin: 11/29/22 08:57 Dose: 3 ml Documented By: ALVARO Sucralfate (Sucralfate 1 Gm Tablet) 1 gm PO QIDACHS [facility] Last Admin: 11/29/22 08:51 Dose: 1 gm Documented By: ALVARO Vitamin D (Cholecalciferol (Vitamin D3) 25 Mcg Tablet) 25 mcg PO DAILY [facility] Last Admin: 11/29/22 08:53 Dose: 25 mcg Documented By: ALVARO Zolpidem Tartrate (Zolpidem Tartrate 5 Mg Tablet) 10 mg PO BEDTIME [facility] Last Admin: 11/28/22 21:40 Dose: 10 mg Documented By: NATE Labs 11/28/22 06:36 11/28/22 06:36 Assessment and Plan (1) Asthma exacerbation: Status: Acute Plan hospital day#2 52yo F with asthma/COPD overlap presenting with dyspnea + wheezing # acute asthma/COPD exac - IV steroids, scheduled/prn nebs, continue montelukast # metabolic acidosis - unclear cause, resolved # abdominal pain - likely constipation, give bowel regimen # HTN - continue losartan # hx PE - continue apixaban # DM2 - correction-dose lispro # morbid obesity - s/p bariatric surgery # mood disorder - escitalopram, gabapentin, zolpidem, quetiapine # VTE ppx - apixaban # dispo - anticipate eventual return home Time Spent With Patient Time: Total time managing care of this patient today _25___ minutes. Quality Stroke Does the patient have a stroke diagnosis?: No VTE Prior VTE?: No VTE Risk Level:: Medical - moderate - high VTE Device Contraindication: Treatment Not Indicated VTE Drug Contraindication: Treatment Not Indicated
[2022-11-29] MEDS: QUEtiapine Fumarate 400 MG TABLET PO (21:30)
[2022-11-29] MEDS: Zolpidem Tartrate 5 MG TABLET 10 MG PO (21:30)
[2022-11-29] MEDS: Montelukast Sodium 10 MG TABLET PO (21:31)
[2022-11-30] VITALS (7 sets, daily range): BP systolic 102–134; BP diastolic 59–68; PULSE 68–84; RESP 18–20; TEMP 36.2–36.7; O2SAT 95–99
[2022-11-30] MEDS: 0.9 % Sodium Chloride Flush 3 ML SYRINGE IVFLUSH ×3 (00:25→18:33)
[2022-11-30] MEDS: methylPREDNISolone Sod Succ 40 MG/ML VIAL IVPUSH ×2 (01:01→13:25)
[2022-11-30] MEDS: oxyCODONE HCl Immed Release 5 MG TABLET PO ×2 (05:41→09:27)
[2022-11-30] MEDS: Albuterol/Iprat 2.5/0.5MG 3 ML AMPUL.NEB INHALE ×2 (07:34→11:34)
[2022-11-30] MEDS: Benzonatate 100 MG CAPSULE 200 MG PO (09:06)
[2022-11-30] MEDS: Ferrous Sulfate 324 MG TABLET.DR PO (09:08)
[2022-11-30] MEDS: Docusate Sodium 100 MG CAPSULE PO ×2 (09:08→20:38)
[2022-11-30] MEDS: Cyanocobalamin (Vitamin B-12) 1,000 MCG TABLET 1000 MCG PO (09:09)
[2022-11-30] MEDS: Sennosides 8.6 MG TABLET PO ×2 (09:09→20:38)
[2022-11-30] MEDS: Escitalopram Oxalate 10 MG TABLET PO (09:09)
[2022-11-30] MEDS: Apixaban 2.5 MG TABLET PO ×2 (09:09→20:38)
[2022-11-30] MEDS: Gabapentin 300 MG CAPSULE 600 MG PO ×2 (09:09→20:37)
[2022-11-30] MEDS: Cholecalciferol (Vitamin D3) 25 MCG TABLET PO (09:09)
[2022-11-30] MEDS: Losartan Potassium 50 MG TABLET 100 MG PO (09:09)
[2022-11-30] MEDS: polyethylene glycoL 3350 17 GM POWD.PACK PO (09:10)
[2022-11-30] MEDS: Sucralfate 1 GM TABLET PO ×4 (09:10→20:37)
[2022-11-30] MEDS: Omeprazole 40 MG CAPSULE.DR PO ×2 (09:27→20:37)
--- NOTE | 2022-11-30 11:02 | P.PNIM_ITS ---
Subjective Subjective Date of Service: 11/30/22 Interval History: This history was taken in [place] from the patient. Ongoing dyspnea + wheezing, coughing. No fever. Not hypoxic Review of Systems Review of Systems: Yes all other systems are reviewed and are negative Physical Exam Vital Signs: Vital Signs: Last Vital Signs Temp 98.1 F 11/30/22 07:56 Pulse 73 11/30/22 07:56 Resp 18 11/30/22 07:56 BP 102/63 11/30/22 07:56 Pulse Ox 97 11/30/22 07:56 O2 Del Method 11/30/22 07:56 BMI result Body Mass Index 34.3 Const: Other: Gen: mild resp distress HEENT: sclera anicteric, moist mucus membranes Neck: supple Lungs: diffuse exp wheezes + insp rhonchi Heart: regular rate and rhythm, no murmurs Abd: soft, non-tender, non-distended, obese Ext: no edema Skin: warm/well-perfused Neuro: alert and oriented x3, no focal findings Psych: appropriate affect Objective Data Active Medications Acetaminophen (Acetaminophen 325 Mg Tablet) 650 mg PO Q6H PRN PRN Reason: Pain, Mild (Pain Scale 1-3) Last Admin: 11/28/22 16:32 Dose: 650 mg Documented By: ALVARO Al Hydroxide/Mg Hydroxide (Magnesium Hydrox/Alum Hydrox 30 Ml Oral.Susp) 5 ml PO 5XD PRN PRN Reason: dyspepsia Albuterol Sulfate (Albuterol Sulfate (0.083%) 2.5 Mg/3 Ml Vial.Neb) 5 mg INHALE Q20M PRN PRN Reason: Wheezing Last Admin: 11/27/22 21:09 Dose: 5 mg Documented By: SELVIN Albuterol Sulfate (Albuterol Sulfate (0.083%) 2.5 Mg/3 Ml Vial.Neb) 2.5 mg INHALE Q4H PRN PRN Reason: shortness of breath or wheezing Albuterol Sulfate (Albuterol Sulfate 90 Mcg 8 Gm Inhaler) 1 puff INHALE QID PRN PRN Reason: shortness of breath or wheezing Albuterol/Ipratropium (Albuterol/Iprat 2.5/0.5mg 3 Ml Ampul.Neb) 3 ml INHALE RQ4H PRN PRN Reason: Shortness of Breath/Wheezing Albuterol/Ipratropium (Albuterol/Iprat 2.5/0.5mg 3 Ml Ampul.Neb) 3 ml INHALE RQ4H WHILE AWAKE [facility] Last Admin: 11/30/22 07:34 Dose: 3 ml Documented By: SIMIN Apixaban (Apixaban 2.5 Mg Tablet) 2.5 mg PO BID [facility] Last Admin: 11/30/22 09:09 Dose: 2.5 mg Documented By: FAISAL Benzonatate (Benzonatate 100 Mg Capsule) 200 mg PO BID PRN PRN Reason: cough Last Admin: 11/30/22 09:06 Dose: 200 mg Documented By: FAISAL Cyanocobalamin (Cyanocobalamin (Vitamin B-12) 1,000 Mcg Tablet) 1,000 mcg PO DAILY [facility] Last Admin: 11/30/22 09:09 Dose: 1,000 mcg Documented By: FAISAL Dicyclomine HCl (Dicyclomine Hcl 10 Mg Capsule) 20 mg PO QID PRN PRN Reason: abdominal pain Docusate Sodium (Docusate Sodium 100 Mg Capsule) 100 mg PO DAILY PRN PRN Reason: Constipation Docusate Sodium (Docusate Sodium 100 Mg Capsule) 100 mg PO BID [facility] Last Admin: 11/30/22 09:08 Dose: 100 mg Documented By: FAISAL Escitalopram Oxalate (Escitalopram Oxalate 10 Mg Tablet) 10 mg PO DAILY [facility] Last Admin: 11/30/22 09:09 Dose: 10 mg Documented By: FAISAL Ferrous Sulfate (Ferrous Sulfate 324 Mg Tablet.) 324 mg PO DAILY [facility] Last Admin: 11/30/22 09:08 Dose: 324 mg Documented By: FAISAL Gabapentin (Gabapentin 300 Mg Capsule) 600 mg PO BID [facility] Last Admin: 11/30/22 09:09 Dose: 600 mg Documented By: FAISAL Guaifenesin/Dextromethorphan (Guaifenesin Dm 100/10/5 Ml 5 Ml Syrup) 5 ml PO Q4H PRN PRN Reason: Cough Last Admin: 11/29/22 16:36 Dose: 5 ml Documented By: ALVARO Losartan Potassium (Losartan Potassium 50 Mg Tablet) 100 mg PO DAILY [facility]; Protocol Last Admin: 11/30/22 09:09 Dose: 100 mg Documented By: FAISAL Methylprednisolone Sodium Succinate (Methylprednisolone Sod Succ 40 Mg/Ml Vial) 40 mg IVPUSH Q12H [facility] Last Admin: 11/30/22 01:01 Dose: 40 mg Documented By: MARIELA Miconazole Nitrate (Miconazole Nitrate 2% Powder 85 Gm Bottle) 1 appl TOPICAL BID PRN; Protocol PRN Reason: Rash Montelukast Sodium (Montelukast Sodium 10 Mg Tablet) 10 mg PO BEDTIME [facility] Last Admin: 11/29/22 21:31 Dose: 10 mg Documented By: MARIELA Omeprazole (Omeprazole 40 Mg Capsule.Dr) 40 mg PO BID [facility] Last Admin: 11/30/22 09:27 Dose: 40 mg Documented By: FAISAL Ondansetron HCl (Ondansetron Hcl 4 Mg/2 Ml Vial) 4 mg IVPUSH Q8H PRN PRN Reason: Nausea and Vomiting Last Admin: 11/28/22 19:20 Dose: 4 mg Documented By: NATE Oxycodone HCl (Oxycodone Hcl Immed Release 5 Mg Tablet) 5 mg PO Q6H PRN PRN Reason: Pain, Severe (Pain Scale 7-10) Last Admin: 11/30/22 09:27 Dose: 5 mg Documented By: FAISAL Oxycodone HCl (Oxycodone Hcl Immed Release 5 Mg Tablet) 5 mg PO TID PRN PRN Reason: Pain, Severe (Pain Scale 7-10) Polyethylene Glycol (Polyethylene Glycol 3350 17 Gm Powd.Pack) 17 gm PO BID PRN PRN Reason: constipation Polyethylene Glycol (Polyethylene Glycol 3350 17 Gm Powd.Pack) 17 gm PO DAILY [facility] Last Admin: 11/30/22 09:10 Dose: 17 gm Documented By: FAISAL Quetiapine Fumarate (Quetiapine Fumarate 400 Mg Tablet) 400 mg PO BEDTIME [facility] Last Admin: 11/29/22 21:30 Dose: 400 mg Documented By: MARIELA Senna (Sennosides 8.6 Mg Tablet) 8.6 mg PO BID [facility] Last Admin: 11/30/22 09:09 Dose: 8.6 mg Documented By: FAISAL Sodium Chloride (0.9 % Sodium Chloride Flush 3 Ml Syringe) [facility] Last Admin: 11/30/22 09:11 Dose: 3 ml Documented By: FAISAL Sucralfate (Sucralfate 1 Gm Tablet) 1 gm PO QIDACHS [facility] Last Admin: 11/30/22 09:10 Dose: 1 gm Documented By: FAISAL Vitamin D (Cholecalciferol (Vitamin D3) 25 Mcg Tablet) 25 mcg PO DAILY [facility] Last Admin: 11/30/22 09:09 Dose: 25 mcg Documented By: FAISAL Zolpidem Tartrate (Zolpidem Tartrate 5 Mg Tablet) 10 mg PO BEDTIME [facility] Last Admin: 11/29/22 21:30 Dose: 10 mg Documented By: ALEKSANDRA-ELLENM Labs 11/28/22 06:36 11/28/22 06:36 Assessment and Plan (1) Asthma exacerbation: Status: Acute Plan hospital day#3 52yo F with asthma/COPD overlap presenting with dyspnea + wheezing # acute asthma/COPD exac - IV steroids, scheduled/prn nebs, continue montelukast # metabolic acidosis - unclear cause, resolved # abdominal pain - likely constipation, give bowel regimen # HTN - continue losartan # hx PE - continue apixaban # DM2 - correction-dose lispro # morbid obesity - s/p bariatric surgery # mood disorder - escitalopram, gabapentin, zolpidem, quetiapine # VTE ppx - apixaban # dispo - anticipate eventual return home In my clinical judgment, the patient requires continued inpatient hospitalization for the following reasons: resp distress Time Spent With Patient Time: Total time managing care of this patient today _30 ___ minutes. Quality Stroke Does the patient have a stroke diagnosis?: No VTE Prior VTE?: No VTE Risk Level:: Medical - moderate - high VTE Device Contraindication: Treatment Not Indicated VTE Drug Contraindication: Treatment Not Indicated
[2022-11-30] MEDS: guaiFENesin DM 100/10/5 ML 5 ML SYRUP PO (11:30)
--- NOTE | 2022-11-30 12:16 | MHC.CM.PN ---
per rounds pt expected to dc tomorrow plan to resume preadmission servceices
[2022-11-30] MEDS: Acetaminophen 325 MG TABLET 650 MG PO (13:24)
[2022-11-30] MEDS: Zolpidem Tartrate 5 MG TABLET 10 MG PO (20:37)
[2022-11-30] MEDS: QUEtiapine Fumarate 400 MG TABLET PO (20:38)
[2022-11-30] MEDS: Montelukast Sodium 10 MG TABLET PO (20:38)
[2022-12-01] MEDS: methylPREDNISolone Sod Succ 40 MG/ML VIAL IVPUSH ×2 (00:46→12:05)
[2022-12-01] MEDS: 0.9 % Sodium Chloride Flush 3 ML SYRINGE IVFLUSH ×2 (00:47→07:56)
[2022-12-01 03:36] VITALS: BP 113/62; PULSE 69; RESP 20; TEMP 36.3; O2SAT 94
[2022-12-01] MEDS: oxyCODONE HCl Immed Release 5 MG TABLET PO ×2 (05:58→13:28)
[2022-12-01] MEDS: Apixaban 2.5 MG TABLET PO (07:54)
[2022-12-01] MEDS: Cyanocobalamin (Vitamin B-12) 1,000 MCG TABLET 1000 MCG PO (07:54)
[2022-12-01] MEDS: Acetaminophen 325 MG TABLET 650 MG PO (07:54)
[2022-12-01] MEDS: Sennosides 8.6 MG TABLET PO (07:54)
[2022-12-01] MEDS: Escitalopram Oxalate 10 MG TABLET PO (07:54)
[2022-12-01] MEDS: Gabapentin 300 MG CAPSULE 600 MG PO (07:54)
[2022-12-01] MEDS: Sucralfate 1 GM TABLET PO ×2 (07:55→12:05)
[2022-12-01] MEDS: Docusate Sodium 100 MG CAPSULE PO (07:55)
[2022-12-01] MEDS: Ferrous Sulfate 324 MG TABLET.DR PO (07:55)
[2022-12-01] MEDS: Losartan Potassium 50 MG TABLET 100 MG PO (07:55)
[2022-12-01] MEDS: Cholecalciferol (Vitamin D3) 25 MCG TABLET PO (07:56)
[2022-12-01 08:00] VITALS: BP 118/64; PULSE 76; RESP 18; TEMP 36.4; O2SAT 96
[2022-12-01] MEDS: guaiFENesin DM 100/10/5 ML 5 ML SYRUP PO ×2 (08:10→13:28)
[2022-12-01 12:00] VITALS: BP 128/59; PULSE 80; RESP 20; TEMP 526.8; TEMP 980.2; O2SAT 96
[2022-12-01 16:00] VITALS: BP 125/65; PULSE 67; RESP 20; TEMP 36.9; O2SAT 95
--- NOTE | 2022-12-01 16:34 | PM.DS ---
DS: Providers Provider Date of Service: 12/01/22 Date of admission: 11/28/22 00:20 Primary care physician: Claudia Villatoro MD DS: Diagnosis Discharge Diagnosis (1) Asthma exacerbation: Status: Acute DS: Summary Hospital Course Hospital Course: Chief Complaint: Abdominal pain This is a 52-year-old female with frequent admissions to this hospital for various reason who has a past medical history of anemia, asthma COPD overlap syndrome, chronic pain syndrome, complex regional pain syndrome, depression, diabetes with diabetic neuropathy, HTN, fibromyalgia, migraine headaches, hypothyroidism, hypomanic, hypogammaglobenemia, BABATUNDE, among others who presents the hospital with various complaints including abdominal pain, back pain, headache, as well as shortness of breath and wheezing.? She has various complaints including headache with no neurological complaints, no weakness numbness or tingling, she has chest pain that is worse with coughing, she has abdominal pain worse with coughing. She denies any urinary symptoms, no diarrhea, no lower extremity edema. On arrival to the ED patient has a heart rate of 114 BP of 95/51, satting 98% on room air Labs are significant for WBC count of 13.6, hemoglobin of time which is around her baseline, hematocrit 33, pH of 7.42, pCO2 of 46, bicarb of 15, Chest x-ray shows no acute pulmonary process, has CT negative for any acute abnormality Abdominal KUB shows large volume of stools, nonobstructive bowel gas pattern Patient being admitted for management of asthma exacerbation Hospital course: # acute asthma/COPD exac--Treated with IV steroids, scheduled/prn nebs, and montelukast. She is feeling better, has no hypoxia, she still has some cough but would like to go home # metabolic acidosis likely related to albuterol use and resolved. # abdominal pain - likely constipation, give bowel regimen and resolved # HTN - continue losartan # hx PE - continue apixaban # DM2 - correction-dose lispro # morbid obesity - s/p bariatric surgery, advised to stay on weight loss track # mood disorder - escitalopram, gabapentin, zolpidem, quetiapine Time Spent with Patient Time attestation: Total time managing care of this patient today ____ minutes. Discharge coordination time: Greater than 30 minutes Quality: Safe Use of Opioids Does Pt have an Active Cancer Diagnosis on the Problem List?: No Quality: Stroke Does the patient have a stroke diagnosis?: No Physical Exam Vital Signs: Vital Signs: Last Vital Signs Temp 98.4 F 12/01/22 16:00 Pulse 67 12/01/22 16:00 Resp 20 12/01/22 16:00 BP 125/65 12/01/22 16:00 Pulse Ox 95 12/01/22 16:00 O2 Del Method 12/01/22 16:00 BMI result Body Mass Index 34.3 Discharge Plan Discharge Anticipated Discharge Date/Time: 12/01/22 16:20 Patient Disposition: Home, Self-Care Discharge Diagnosis: Asthma exacerbation Referrals: Claudia Villatoro MD [Primary Care Provider] - 1 Week Discharge Medications: New prednisone 20 mg tablet 40 mg PO DAILY Qty: 8 0RF Continued gabapentin [Neurontin] 300 mg capsule 600 mg PO BID 30 Days Qty: 120 11RF ondansetron 4 mg tablet,disintegrating 4 mg PO TID PRN (Reason: nausea and vomiting) 5 Days Qty: 20 0RF montelukast 10 mg tablet 10 mg PO BEDTIME Eliquis 2.5 mg Tablet 2.5 mg PO BID Qty: 180 0RF albuterol sulfate 90 mcg/actuation HFA aerosol inhaler 1 inh inhalation QID PRN (Reason: shortness of breath or wheezing) Qty: 18 0RF acetaminophen [Tylenol Extra Strength] 500 mg tablet 500 mg PO Q6H PRN (Reason: pain or fever) Qty: 20 0RF benzonatate 200 mg capsule 200 mg PO BID PRN (Reason: cough) Qty: 14 0RF dicyclomine 20 mg tablet 20 mg PO QID PRN (Reason: abdominal pain) Qty: 20 0RF escitalopram oxalate 10 mg tablet 1 tab PO DAILY miconazole nitrate 2 % Powder 1 appl TOPICAL BID PRN (Reason: Rash) Privigen 10 % solution 40 g IV QMONTH Rx Instructions: LAST DOSE 11/27/22 zolpidem 10 mg tablet 1 tab PO BEDTIME sucralfate 1 gram tablet 1 tab PO TID prednisone 20 mg tablet 20 mg PO BID valsartan 160 mg tablet 1 tab PO DAILY cholecalciferol (vitamin D3) 25 mcg (1,000 unit) tablet 1 tab PO DAILY cyanocobalamin (vitamin B-12) 1,000 mcg tablet 1,000 mcg PO DAILY quetiapine [Seroquel] 400 mg tablet 400 mg PO BEDTIME albuterol sulfate 2.5 mg /3 mL (0.083 %) solution for nebulization 2.5 mg inhalation Q4H PRN (Reason: shortness of breath or wheezing) 30 Days Qty: 360 11RF omeprazole 40 mg capsule,delayed release(DR/EC) 40 mg PO BID 30 Days Qty: 60 2RF Rx Instructions: Take 30 mins before breakfast, open capsule and mix in pudding/applesauce oxycodone 5 mg tablet 5 mg PO TID PRN (Reason: pain) 30 Days Qty: 90 0RF Rx Instructions: Partial Fill upon patient request. Discharge Orders: Discharge Order (Routine); Ordered 12/01/22 Ordered By: Prosper Jiménez Diet: Advance to usual diet Activity on Discharge: As tolerated Stand Alone Forms: Patient Portal Discharge page Care Plan Goals: full recovery Health Concerns: asthma constipation cough Plan of Treatment: use inhalers, prednisone and cough medication as recommended and follow up with your Doctor in a week Assessment: as above
== END 2022-12-01 17:09 | disposition home or self-care (01) ==
LOC: HO.ED 23:58 → HO.EDOVER 11-28 01:17 → HO.IMC 11-28 03:37
PROVIDERS: Physician Assistant Medical; Admitting Provider Internal Medicine; Emergency Provider Emergency Medicine; PCP Internal Medicine; Visit Provider Internal Medicine
DX: J45.901 Unspecified asthma with (acute) exacerbation (principal); E87.20 Acidosis, unspecified; R10.9 Unspecified abdominal pain; K59.00 Constipation, unspecified; R51.9 Headache, unspecified; R06.02 Shortness of breath; F41.9 Anxiety disorder, unspecified; E66.9 Obesity, unspecified; Z68.34 Body mass index [BMI] 34.0-34.9, adult; Z20.822 Contact with and (suspected) exposure to COVID-19; Z20.828 Contact with and (suspected) exposure to other viral communicable diseases; E11.9 Type 2 diabetes mellitus without complications; I10 Essential (primary) hypertension; D64.9 Anemia, unspecified; G89.4 Chronic pain syndrome; M79.662 Pain in left lower leg; F32.A Depression, unspecified; G47.33 Obstructive sleep apnea (adult) (pediatric); Z86.711 Personal history of pulmonary embolism; Z86.73 Personal history of transient ischemic attack (TIA), and cerebral infarction without residual deficits; Z90.710 Acquired absence of both cervix and uterus; Z90.49 Acquired absence of other specified parts of digestive tract; Z98.84 Bariatric surgery status; Z79.01 Long term (current) use of anticoagulants; Z79.899 Other long term (current) drug therapy
CPT/HCPCS: 0241U; 36415; 36600; 70450; 71046; 74018; 80048; 80053; 82803; 83735; 84484; 85025; 85610; 85730; 93005; 94640; 96361; 96374; 96375; 96376; 97162; 99222; 99285; J2270; J2405; J2920

== ENCOUNTER → 2022-12-02 10:18 | Outpatient (BNVA) | payer OTHER, SELFPAY | PROVIDERS: PCP Internal Medicine; Visit Provider Anesthesiology | DX: Z51.81 Encounter for therapeutic drug level monitoring (principal); F11.20 Opioid dependence, uncomplicated | CPT/HCPCS: 99211 ==

== ENCOUNTER → 2022-12-07 13:00 | Outpatient (BNVA) | payer OTHER, SELFPAY | PROVIDERS: PCP Internal Medicine; Visit Provider Hospitalist | DX: J44.9 Chronic obstructive pulmonary disease, unspecified (principal); R05.9 Cough, unspecified; I27.82 Chronic pulmonary embolism; G47.33 Obstructive sleep apnea (adult) (pediatric) | CPT/HCPCS: 99212 ==

== ENCOUNTER → 2022-12-31 09:06 | Outpatient (BNVA) | payer OTHER, SELFPAY | PROVIDERS: PCP Internal Medicine; Visit Provider Anesthesiology | DX: Z51.81 Encounter for therapeutic drug level monitoring (principal); F11.20 Opioid dependence, uncomplicated; M81.0 Age-related osteoporosis without current pathological fracture; M51.37 Other intervertebral disc degeneration, lumbosacral region; M54.59 Other low back pain; M47.816 Spondylosis without myelopathy or radiculopathy, lumbar region; M47.812 Spondylosis without myelopathy or radiculopathy, cervical region | CPT/HCPCS: 99212 ==

== ENCOUNTER 2023-01-06 09:36 | Outpatient (REF) | payer OTHER, SELFPAY ==
[2023-01-06 10:00] LABS: MANUAL DIFF FLAG NO
[2023-01-06 10:22] LABS: Basophils Percent Auto 0.5 % (0-2); Eosinophils Absolute Auto 0.2 X10*3/uL (0.0-0.4); Eosinophils Percent Auto 2.2 % (0-4); Hematocrit 32.4 % (37.0-47.0); Hemoglobin 9.5 g/dl (12.0-16.0); Imm Gran Abs Auto 0.13 X10*3/uL (0.00-0.03); Imm Gran Pct Auto 1.7 % (0.0-0.4); Lymphocytes Absolute Auto 2.5 X10*3/uL (1.2-4.9); Lymphocytes Percent Auto 31.9 % (20-40); Mean Corpuscular HGB Conc 29.3 g/dl (31.0-35.0); Mean Corpuscular Hemoglobin 25.2 pg (27.0-33.0); Mean Corpuscular Volume 85.9 fL (80.0-98.0); Mean Platelet Volume 8.9 fL (9.4-12.3); Monocytes Absolute Auto 0.6 X10*3/uL (0.1-1.2); Monocytes Percent Auto 7.2 % (2-11); Neutrophils Absolute Auto 4.4 x10*3/uL (2.0-8.3); Neutrophils Percent Auto 56.5 % (45-73); Platelet Count 304 X10*3/uL (160-400); Red Blood Count 3.77 X10*6/uL (4.20-5.50); Red Cell Distribution Width 17.1 % (11.0-16.0); White Blood Count 7.7 X10*3/uL (4.8-10.8)
[2023-01-06 10:32] LABS: Estimated Average Glucose 120 mg/dL; Hemoglobin A1c % 5.8 %
[2023-01-06 10:45] LABS: Alanine Aminotransferase 22 U/L (0-31); Albumin Level 3.2 g/dL (3.5-5.0); Alkaline Phosphatase 71 U/L (39-117); Anion Gap 11 (12-20); Aspartate Amino Transferase 17 U/L (5-31); Bilirubin Total 0.3 mg/dL (0.0-1.0); Blood Urea Nitrogen 19 mg/dL (9-16); Calcium 9.1 mg/dL (8.4-10.2); Carbon Dioxide 28 mmol/L (22-29); Chloride 108 mmol/L (96-108); Estimated Glomerular Filt Rate 47; Glucose Random 77 mg/dL (60-115); Potassium 4.7 mmol/L (3.3-5.1); Sodium 142 mmol/L (135-145); Total Protein 5.3 g/dL (6.5-8.0)
== END 2023-01-06 09:37 | disposition home or self-care (01) ==
LOC: HO.LAB 09:36
PROVIDERS: PCP Internal Medicine; Visit Provider Internal Medicine
DX: Z00.00 Encounter for general adult medical examination without abnormal findings (principal); E11.9 Type 2 diabetes mellitus without complications; J45.50 Severe persistent asthma, uncomplicated; Z79.01 Long term (current) use of anticoagulants
CPT/HCPCS: 36415; 80053; 83036; 85025

== ENCOUNTER 2023-01-11 10:25 | Outpatient (REF) | payer OTHER, SELFPAY | END 2023-01-11 10:26 | disposition home or self-care (01) | LOC: HO.MDS 10:25 | PROVIDERS: PCP Internal Medicine; Visit Provider Hospitalist | DX: D80.1 Nonfamilial hypogammaglobulinemia (principal) | CPT/HCPCS: 96365; 96366 ==

== ENCOUNTER 2023-01-19 09:18 | Emergency (ER) | payer OTHER, SELFPAY ==
[2023-01-19 09:28] VITALS: BP 114/71; PULSE 92; RESP 18; TEMP 36.3; O2SAT 98; BMI 35.5
[2023-01-19 09:41] LABS: MANUAL DIFF FLAG NO
[2023-01-19 09:45] LABS: Basophils Percent Auto 0.6 % (0-2); Eosinophils Absolute Auto 0.2 X10*3/uL (0.0-0.4); Eosinophils Percent Auto 2.6 % (0-4); Hematocrit 36.2 % (37.0-47.0); Hemoglobin 10.7 g/dl (12.0-16.0); Imm Gran Abs Auto 0.07 X10*3/uL (0.00-0.03); Imm Gran Pct Auto 1.1 % (0.0-0.4); Lymphocytes Absolute Auto 1.9 X10*3/uL (1.2-4.9); Lymphocytes Percent Auto 29.2 % (20-40); Mean Corpuscular HGB Conc 29.6 g/dl (31.0-35.0); Mean Corpuscular Hemoglobin 24.9 pg (27.0-33.0); Mean Corpuscular Volume 84.2 fL (80.0-98.0); Mean Platelet Volume 8.5 fL (9.4-12.3); Monocytes Absolute Auto 0.5 X10*3/uL (0.1-1.2); Monocytes Percent Auto 6.9 % (2-11); Neutrophils Absolute Auto 3.9 x10*3/uL (2.0-8.3); Neutrophils Percent Auto 59.6 % (45-73); Platelet Count 396 X10*3/uL (160-400); White Blood Count 6.5 X10*3/uL (4.8-10.8)
[2023-01-19 09:59] LABS: Alanine Aminotransferase 16 U/L (0-31); Albumin Level 3.3 g/dL (3.5-5.0); Alkaline Phosphatase 88 U/L (39-117); Anion Gap 11 (12-20); Aspartate Amino Transferase 22 U/L (5-31); Bilirubin Direct < 0.2 mg/dL (0.0-0.5); Bilirubin Total 0.3 mg/dL (0.0-1.0); Blood Urea Nitrogen 10 mg/dL (9-16); Calcium 9.6 mg/dL (8.4-10.2); Carbon Dioxide 25 mmol/L (22-29); Chloride 110 mmol/L (96-108); Estimated Glomerular Filt Rate 54; Glucose Random 93 mg/dL (60-115); Lipase 26 U/L (8-78); Potassium 4.5 mmol/L (3.3-5.1); Sodium 141 mmol/L (135-145); Total Protein 6.3 g/dL (6.5-8.0)
[2023-01-19 09:59] LABS: Appearance Urine Clear; Color Urine Yellow; Glucose Urine UA Negative (Negative); Leukocyte Esterase Urine Small (1+) (Negative); Nitrite Urine Negative (Negative); PH 5.5 (5.0-9.0); UMIC TRIGGER UACC YES; Urine Blood Negative (Negative); Urine Ketones Negative (Negative); Urine Protein Negative (Neg-Trace)
[2023-01-19 10:00] LABS: UPreg QC Valid YES; Urine Pregnancy NEGATIVE (NEGATIVE)
[2023-01-19 10:01] LABS: Bacteria Urine None Seen (None Seen); Hyaline Casts Urine 0-2 /LPF (0-2); RBC Urine 0-2 /HPF (0-2); UACC Culture Trigger YES
--- NOTE | 2023-01-19 11:32 | PC.NURSE ---
assumed care of patient, pt resting comfortably in stretcher, VSS, awaiting pending labs and final plan
--- NOTE | 2023-01-19 11:36 | ED_ITS ---
HPI - Abdominal Pain General Chief Complaint: Abdominal Pain Stated Complaint: lower back pain/ stomach pain Time Seen by Provider: 01/19/23 11:07 Source: patient Mode of arrival: ambulatory Limitations: language barrier History of Present Illness HPI narrative: Lower abdominal pain and dysuria for 3 days, states she may have had fever yesterday MD elicited complaint: abdominal pain Onset (ago): day(s) Pain Consistency: intermittent Location: RLQ and LLQ Severity: moderate Quality: cramping Exacerbating factors: nothing Associated symptoms: other (dysuria) Related Data Home Medications Medication Instructions Recorded Confirmed montelukast 10 mg tablet 10 mg PO BEDTIME 08/02/20 12/02/22 cyanocobalamin (vitamin B-12) 1,000 mcg PO DAILY 11/05/20 12/02/22 1,000 mcg tablet quetiapine 400 mg tablet (Seroquel) 400 mg PO BEDTIME 06/02/22 12/02/22 escitalopram oxalate 10 mg tablet 1 tab PO DAILY 08/21/22 12/02/22 immune glob,gamm(IgG) 10 %-pro-IgA 40 g IV QMONTH 08/21/22 12/02/22 0 to 50 mcg/mL intravenous solution (Privigen) miconazole nitrate 2 % topical 1 appl topical BID PRN Rash 08/21/22 12/02/22 powder zolpidem 10 mg tablet 1 tab PO BEDTIME 08/21/22 12/02/22 cholecalciferol (vitamin D3) 25 1 tab PO DAILY 11/28/22 12/02/22 mcg (1,000 unit) tablet sucralfate 1 gram tablet 1 tab PO TID 11/28/22 12/02/22 valsartan 160 mg tablet 1 tab PO DAILY 11/28/22 12/02/22 quetiapine 300 mg tablet 300 mg PO BEDTIME 12/07/22 Previous Rx's Medication Instructions Recorded albuterol sulfate 90 mcg/actuation 1 inh inhalation QID PRN shortness 10/13/20 aerosol inhaler of breath or wheezing #18 grams acetaminophen 500 mg tablet 500 mg PO Q6H PRN pain or fever 01/21/22 (Tylenol Extra Strength) #20 tabs gabapentin 300 mg capsule 600 mg PO BID 30 days #120 caps 04/03/22 (Neurontin) dicyclomine 20 mg tablet 20 mg PO QID PRN abdominal pain 06/27/22 #20 tabs albuterol sulfate 2.5 mg/3 mL 2.5 mg (3 mL) inhalation Q4H PRN 09/08/22 (0.083 %) solution for nebulization shortness of breath or wheezing 30 days #360 mL omeprazole 40 mg capsule,delayed 40 mg PO BID 30 days #60 caps 11/25/22 release ondansetron 4 mg disintegrating 4 mg PO TID PRN nausea and 11/27/22 tablet vomiting 5 days #20 tabs prednisone 20 mg tablet 40 mg PO DAILY #8 tabs 12/01/22 zinc acetate 50 mg (zinc) capsule 100 mg PO DAILY 30 days #60 caps 12/02/22 (Galzin) benzonatate 200 mg capsule 200 mg PO BID PRN cough 30 days 12/07/22 #60 caps dextromethorphan-guaifenesin 30 1 tab PO Q12H 14 days #28 tabs 12/07/22 mg-600 mg tablet extended [id number] hr glycopyrrolate 9 mcg-formoterol 2 puff inhalation Q12H 30 days 12/07/22 4.8 mcg HFA aerosol inhaler #10.7 grams (Bevespi Aerosphere) oxycodone 5 mg tablet 5 mg PO TID PRN pain 30 days #90 12/31/22 tabs apixaban 2.5 mg tablet (Eliquis) 2.5 mg PO BID #180 tabs 01/14/23 Allergies Allergy/AdvReac Type Severity Reaction Status Date / Time No Known Allergies Allergy Verified 12/31/22 09:15 Review of Systems Review of Systems Yes all other systems are reviewed and are negative Gastrointestinal: Reports abdominal pain Genitourinary: Reports dysuria PMFSH Past Medical History Medical History Anemia Arthritis Asthma exacerbation Asthma-COPD overlap syndrome Back pain Bronchitis Chronic pain syndrome Complex regional pain syndrome i of left lower limb Cough Depression Diabetic neuropathy Diet-controlled diabetes mellitus Disc degeneration, lumbosacral Dizziness Elevated lactic acid level Essential hypertension Fibromyalgia Headache Headache, migraine History of COVID-19 Hypogammaglobulinemia Hypothyroidism Laryngotracheitis Low back pain Morbid obesity Nausea vomiting and diarrhea BABATUNDE (obstructive sleep apnea) Osteoporosis Pleuritic chest pain 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 Pulmonary embolism Sleep apnea Spondylosis of cervical spine 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 TIA (transient ischemic attack) Type 2 diabetes mellitus with unspecified complications Surgical History History of bariatric surgery History of cholecystectomy History of esophagogastroduodenoscopy (EGD) Hx of colonoscopy S/P total abdominal hysterectomy Family History Family History Mother Diabetes Stroke Family/Other Diabetes Father Diabetes Maternal Aunt Cancer Social History Social History Household Members: Caregiver Housing: House Are you a primary ostomy care nurse to a significant other at home: No Do you presently have visiting nurse or other home services: No Alcohol intake: never Patient Tobacco Use Status: Never used Tobacco e-Cigarette/Vaping Use: Never Used Second Hand Smoke Exposure: No Advance Directives: No Advance Directives Information Provided: Yes Advance Directives Date on File: 05/23/21 service: No Current occupational status: unemployed and disabled Physical Exam ED Vital Signs: Vital Signs - 24 hr 01/19/23 09:28 Temperature 97.3 F Pulse Rate 92 Respiratory Rate 18 Blood Pressure 114/71 Pulse Oximetry 98 Oxygen Delivery Method Room Air BMI result Body Mass Index 35.5 Const Other: obese anxious, looking older than stated age Orientation/consciousness: oriented to person and patient oriented x3 Limitations: no limitations HENMT Head: Yes normal to inspection Ears: external ears normal General nose exam: Normal external nose present Mouth: Normal oral and palatal mucosa present and oropharynx normal Throat: Yes posterior oropharynx normal Eyes General: appearance normal, both eyes and all related structures Neck Neck: Yes normal visual inspection Chest Chest palpation & inspection: normal inspection of the chest Resp Auscultation: clear to auscultation bilaterally Cardio Jugular venous distension: no JVD Rate: regular rate Rhythm: regular rhythm Heart sounds: S1 normal heart sound present and S2 normal heart sound present GI Other: lower abdominal pain, soft no guarding or rebound Inspection: Yes normal to inspection Palpation (GI): Soft to palpation and No hepatosplenomegaly present Auscultation: normal bowel sounds General: Yes no CVA tenderness Back/Spine/Pelvis Back: no CVA tenderness Skin General skin exam: no rashes or lesions noted Neuro General: oriented to person and patient oriented x3 Cranial nerves: Yes CN's II-XII intact bilaterally Motor exam (neuro): 5/5 motor strength present throughout Extrem General: Yes normal to inspection Psych Appearance: grossly normal Course Reevaluation(s) Reevaluation #1: Patient with a positive urine will treat Time: 11:54 Medical Decision Making Differential Diagnosis Differential Diagnoses: The differential diagnosis associated with the presentation includes (UTI, diverticulitis, appendicitis gastroenteritis) Lab Data 01/19/23 09:32 01/19/23 09:32 Labs: Lab Results 01/19/23 01/19/23 01/19/23 Range/Units 09:32 09:32 09:51 WBC 6.5 (4.8-10.8) X10*3/uL RBC 4.30 (4.20-5.50) X10*6/uL Hgb 10.7 L (12.0-16.0) g/dl Hct 36.2 L (37.0-47.0) % MCV 84.2 (80.0-98.0) fL MCH 24.9 L (27.0-33.0) pg MCHC 29.6 L (31.0-35.0) g/dl RDW 17.0 H (11.0-16.0) % Plt Count 396 D (160-400) X10*3/uL MPV 8.5 L (9.4-12.3) fL Immature Gran % (Auto) 1.1 H (0.0-0.4) % Neut % (Auto) 59.6 (45-73) % Lymph % (Auto) 29.2 (20-40) % [place] % (Auto) 6.9 (2-11) % Eos % (Auto) 2.6 (0-4) % Baso % (Auto) 0.6 (0-2) % Lymph # (Auto) 1.9 (1.2-4.9) X10*3/uL [place] # (Auto) 0.5 (0.1-1.2) X10*3/uL Eos # (Auto) 0.2 (0.0-0.4) X10*3/uL Baso # (Auto) 0.0 (0.0-0.2) X10*3/uL Abs Immat Gran (auto) 0.07 H (0.00-0.03) X10*3/uL Absolute Neuts (auto) 3.9 (2.0-8.3) x10*3/uL Absolute Nucleated RBC 0.000 (0.0-0.012) X10*3/uL Nucleated RBC % (auto) 0.0 (0.0-0.2) /100WBC Sodium 141 (135-145) mmol/L Potassium 4.5 (3.3-5.1) mmol/L Chloride 110 H (96-108) mmol/L Carbon Dioxide 25 (22-29) mmol/L Anion Gap 11 L (12-20) BUN 10 (9-16) mg/dL Creatinine 1.06 (0.5-1.4) mg/dL Estim Creat Clear Calc 53.0 Estimated GFR 54 Random Glucose 93 (60-115) mg/dL Calcium 9.6 (8.4-10.2) mg/dL Total Bilirubin 0.3 (0.0-1.0) mg/dL Direct Bilirubin < 0.2 (0.0-0.5) mg/dL AST 22 (5-31) U/L ALT 16 (0-31) U/L Alkaline Phosphatase 88 (39-117) U/L Total Protein 6.3 L (6.5-8.0) g/dL Albumin 3.3 L (3.5-5.0) g/dL Lipase 26 (8-78) U/L Urine Color Yellow Urine Appearance Clear Urine pH 5.5 (5.0-9.0) Ur Specific [place] 1.020 (1.005-1.025) Urine Protein Negative (Neg-Trace) mg/dL Urine Glucose (UA) Negative (Negative) mg/dL Urine Ketones Negative (Negative) mg/dL Urine Blood Negative (Negative) Urine Nitrite Negative (Negative) Ur Leukocyte Esterase Small (1+) H (Negative) Urine RBC 0-2 (0-2) /HPF Urine WBC 6-10 H (0-5) /HPF Ur Squamous Epith Cells 3-5 (0-2) /HPF Urine Bacteria None Seen (None Seen) Hyaline Casts 0-2 (0-2) /LPF Urine Test (NEGATIVE) 01/19/23 Range/Units 09:51 WBC (4.8-10.8) X10*3/uL RBC (4.20-5.50) X10*6/uL Hgb (12.0-16.0) g/dl Hct (37.0-47.0) % MCV (80.0-98.0) fL MCH (27.0-33.0) pg MCHC (31.0-35.0) g/dl RDW (11.0-16.0) % Plt Count (160-400) X10*3/uL MPV (9.4-12.3) fL Immature Gran % (Auto) (0.0-0.4) % Neut % (Auto) (45-73) % Lymph % (Auto) (20-40) % [place] % (Auto) (2-11) % Eos % (Auto) (0-4) % Baso % (Auto) (0-2) % Lymph # (Auto) (1.2-4.9) X10*3/uL [place] # (Auto) (0.1-1.2) X10*3/uL Eos # (Auto) (0.0-0.4) X10*3/uL Baso # (Auto) (0.0-0.2) X10*3/uL Abs Immat Gran (auto) (0.00-0.03) X10*3/uL Absolute Neuts (auto) (2.0-8.3) x10*3/uL Absolute Nucleated RBC (0.0-0.012) X10*3/uL Nucleated RBC % (auto) (0.0-0.2) /100WBC Sodium (135-145) mmol/L Potassium (3.3-5.1) mmol/L Chloride (96-108) mmol/L Carbon Dioxide (22-29) mmol/L Anion Gap (12-20) BUN (9-16) mg/dL Creatinine (0.5-1.4) mg/dL Estim Creat Clear Calc Estimated GFR Random Glucose (60-115) mg/dL Calcium (8.4-10.2) mg/dL Total Bilirubin (0.0-1.0) mg/dL Direct Bilirubin (0.0-0.5) mg/dL AST (5-31) U/L ALT (0-31) U/L Alkaline Phosphatase (39-117) U/L Total Protein (6.5-8.0) g/dL Albumin (3.5-5.0) g/dL Lipase (8-78) U/L Urine Color Urine Appearance Urine pH (5.0-9.0) Ur Specific [place] (1.005-1.025) Urine Protein (Neg-Trace) mg/dL Urine Glucose (UA) (Negative) mg/dL Urine Ketones (Negative) mg/dL Urine Blood (Negative) Urine Nitrite (Negative) Ur Leukocyte Esterase (Negative) Urine RBC (0-2) /HPF Urine WBC (0-5) /HPF Ur Squamous Epith Cells (0-2) /HPF Urine Bacteria (None Seen) Hyaline Casts (0-2) /LPF Urine Test NEGATIVE (NEGATIVE) Tests considered The following testing was considered but not selected: I considered getting CT of abdomen but patient is afebrile, soft nonfocal abdomen, no WBC and a dirty UA Discharge Plan Discharge Clinical Impression: Urinary tract infection Prescriptions: No Action gabapentin [Neurontin] 300 mg capsule 600 mg PO BID 30 Days Qty: 120 11RF ondansetron 4 mg tablet,disintegrating 4 mg PO TID PRN (Reason: nausea and vomiting) 5 Days Qty: 20 0RF Galzin 50 mg (zinc) capsule 100 mg PO DAILY 30 Days Qty: 60 1RF montelukast 10 mg tablet 10 mg PO BEDTIME Eliquis 2.5 mg Tablet 2.5 mg PO BID Qty: 180 0RF albuterol sulfate 90 mcg/actuation HFA aerosol inhaler 1 inh inhalation QID PRN (Reason: shortness of breath or wheezing) Qty: 18 0RF acetaminophen [Tylenol Extra Strength] 500 mg tablet 500 mg PO Q6H PRN (Reason: pain or fever) Qty: 20 0RF dicyclomine 20 mg tablet 20 mg PO QID PRN (Reason: abdominal pain) Qty: 20 0RF escitalopram oxalate 10 mg tablet 1 tab PO DAILY miconazole nitrate 2 % Powder 1 appl TOPICAL BID PRN (Reason: Rash) Privigen 10 % solution 40 g IV QMONTH Rx Instructions: LAST DOSE 11/27/22 zolpidem 10 mg tablet 1 tab PO BEDTIME sucralfate 1 gram tablet 1 tab PO TID valsartan 160 mg tablet 1 tab PO DAILY cholecalciferol (vitamin D3) 25 mcg (1,000 unit) tablet 1 tab PO DAILY prednisone 20 mg tablet 40 mg PO DAILY Qty: 8 0RF cyanocobalamin (vitamin B-12) 1,000 mcg tablet 1,000 mcg PO DAILY quetiapine [Seroquel] 400 mg tablet 400 mg PO BEDTIME albuterol sulfate 2.5 mg /3 mL (0.083 %) solution for nebulization 2.5 mg inhalation Q4H PRN (Reason: shortness of breath or wheezing) 30 Days Qty: 360 11RF omeprazole 40 mg capsule,delayed release(DR/EC) 40 mg PO BID 30 Days Qty: 60 2RF Rx Instructions: Take 30 mins before breakfast, open capsule and mix in pudding/applesauce quetiapine 300 mg tablet 300 mg PO BEDTIME Bevespi Aerosphere 9-4.8 mcg HFA aerosol inhaler 2 puff inhalation Q12H 30 Days Qty: 10.7 11RF benzonatate 200 mg capsule 200 mg PO BID PRN (Reason: cough) 30 Days Qty: 60 6RF dextromethorphan-guaifenesin 30-600 mg tablet extended release 12 hr 1 tab PO Q12H 14 Days Qty: 28 0RF oxycodone 5 mg tablet 5 mg PO TID PRN (Reason: pain) 30 Days Qty: 90 0RF Rx Instructions: Partial Fill upon patient request.
[2023-01-19] MEDS: cephALEXin 500 MG CAPSULE PO (12:21)
[2023-01-19] MEDS: Ketorolac Tromethamine 30 MG/ML VIAL IM (12:21)
== END 2023-01-19 12:25 | disposition home or self-care (01) ==
PROVIDERS: Emergency Provider Emergency Medicine; PCP Internal Medicine
DX: N39.0 Urinary tract infection, site not specified (principal); M54.50 Low back pain, unspecified; R30.0 Dysuria; Z79.899 Other long term (current) drug therapy; R10.32 Left lower quadrant pain; R10.31 Right lower quadrant pain; Z79.4 Long term (current) use of insulin
CPT/HCPCS: 36415; 80048; 80076; 81001; 81025; 83690; 85025; 87086; 96372; 99284; J1885

== ENCOUNTER → 2023-01-28 09:43 | Outpatient (BNVA) | payer OTHER, SELFPAY | PROVIDERS: PCP Internal Medicine; Visit Provider Anesthesiology | DX: Z51.81 Encounter for therapeutic drug level monitoring (principal); F11.20 Opioid dependence, uncomplicated | CPT/HCPCS: 99211 ==

== ENCOUNTER 2023-02-01 09:23 | Outpatient (REF) | payer OTHER, SELFPAY ==
[2023-02-01 10:28] LABS: Alanine Aminotransferase 16 U/L (0-31); Alkaline Phosphatase 85 U/L (39-117); Aspartate Amino Transferase 13 U/L (5-31); Bilirubin Direct < 0.2 mg/dL (0.0-0.5); Bilirubin Total 0.2 mg/dL (0.0-1.0); Total Protein 5.2 g/dL (6.5-8.0)
== END 2023-02-01 09:24 | disposition home or self-care (01) ==
LOC: HO.LAB 09:23
PROVIDERS: PCP Internal Medicine; Visit Provider Nurse Practitioner Gerontology
DX: B35.3 Tinea pedis (principal); B35.1 Tinea unguium
CPT/HCPCS: 36415; 80076

== ENCOUNTER → 2023-02-12 13:58 | Outpatient (BNVA) | payer OTHER, SELFPAY | PROVIDERS: PCP Internal Medicine; Visit Provider Internal Medicine | DX: K28.9 Gastrojejunal ulcer, unspecified as acute or chronic, without hemorrhage or perforation (principal); R63.5 Abnormal weight gain; R10.13 Epigastric pain; E61.1 Iron deficiency; J06.9 Acute upper respiratory infection, unspecified; Z90.49 Acquired absence of other specified parts of digestive tract; Z98.84 Bariatric surgery status; Z79.899 Other long term (current) drug therapy | CPT/HCPCS: 99212 ==

== ENCOUNTER 2023-02-13 06:57 | Emergency (ER) | payer OTHER, SELFPAY ==
--- NOTE | ~2023-02-13 | XR_ITS ---
EXAMINATION: XR CHEST CLINICAL INFORMATION: Cough. COMPARISON: Most recent chest radiograph dated 11/27/2022. TECHNIQUE: Frontal view of the chest was obtained. FINDINGS: The lungs are clear. The cardiomediastinal silhouette is normal in size. There is no pleural effusion or pneumothorax. No acute osseous abnormality. XR/XR chest 1V IMPRESSION: No acute cardiopulmonary findings.
[2023-02-13 07:17] VITALS: BP 153/71; PULSE 69; RESP 18; TEMP 36.6; O2SAT 96; BMI 33.6
--- NOTE | 2023-02-13 07:27 | ED_ITS ---
HPI - SOB/Dyspnea General Chief Complaint: Dyspnea Stated Complaint: asthma/coughing Time Seen by Provider: 02/13/23 07:21 Source: patient Limitations: no limitations History of Present Illness HPI Narrative: This is a 53 years old of female with history of asthma, obesity, type 2 diabetes presented to emergency department complaining of shortness of breath and wheezing, she denies any fever chills vomiting , she does have diarrhea as gwendolyn garcia MD elicited complaint: shortness of breath Pertinent past history: asthma Onset (ago): day(s) (2) Timing: constant Severity: moderate Relieving factors: nothing Known history of: asthma Associated symptoms: denies other symptoms Related Data Home Medications Medication Instructions Recorded Confirmed montelukast 10 mg tablet 10 mg PO BEDTIME 08/02/20 02/11/23 cyanocobalamin (vitamin B-12) 1,000 mcg PO DAILY 11/05/20 02/11/23 1,000 mcg tablet escitalopram oxalate 10 mg tablet 1 tab PO DAILY 08/21/22 02/11/23 zolpidem 10 mg tablet 1 tab PO BEDTIME 08/21/22 02/11/23 cholecalciferol (vitamin D3) 25 1 tab PO DAILY 11/28/22 02/11/23 mcg (1,000 unit) tablet valsartan 160 mg tablet 1 tab PO DAILY 11/28/22 02/11/23 quetiapine 300 mg tablet 300 mg PO BEDTIME 12/07/22 02/11/23 alclometasone 0.05 % topical cream appl topical 02/12/23 betamethasone dipropionate 0.05 % 1 appl topical BID 02/12/23 lotion blood sugar diagnostic (FreeStyle #10 ea 02/12/23 Lite Strips) calcipotriene 0.005 % topical topical 02/12/23 ointment ferrous sulfate 325 mg (65 mg 325 mg PO DAILY 02/12/23 iron) tablet fluocinonide 0.05 % topical topical BID PRN 02/12/23 ointment fluticasone propionate 50 0 mcg intranasal DAILY 02/12/23 mcg/actuation nasal spray,suspension hydroxyzine HCl 25 mg tablet 25 mg PO TID PRN itch 02/12/23 omeprazole 20 mg capsule,delayed 20 mg PO DAILY 02/12/23 release prednisone 10 mg tablet 10 mg PO 02/12/23 terbinafine HCl 250 mg tablet 250 mg PO DAILY 02/12/23 Previous Rx's Medication Instructions Recorded acetaminophen 500 mg tablet 500 mg PO Q6H PRN pain or fever 01/21/22 (Tylenol Extra Strength) #20 tabs gabapentin 300 mg capsule 600 mg PO BID 30 days #120 caps 04/03/22 (Neurontin) dicyclomine 20 mg tablet 20 mg PO QID PRN abdominal pain 06/27/22 #20 tabs albuterol sulfate 2.5 mg/3 mL 2.5 mg (3 mL) inhalation Q4H PRN 09/08/22 (0.083 %) solution for nebulization shortness of breath or wheezing 30 days #360 mL ondansetron 4 mg disintegrating 4 mg PO TID PRN nausea and 11/27/22 tablet vomiting 5 days #20 tabs zinc acetate 50 mg (zinc) capsule 100 mg PO DAILY 30 days #60 caps 12/02/22 (Galzin) benzonatate 200 mg capsule 200 mg PO BID PRN cough 30 days 12/07/22 #60 caps glycopyrrolate 9 mcg-formoterol 2 puff inhalation Q12H 30 days 12/07/22 4.8 mcg HFA aerosol inhaler #10.7 grams (Bevespi Aerosphere) oxycodone 5 mg tablet 5 mg PO TID PRN pain 30 days #90 12/31/22 tabs apixaban 2.5 mg tablet (Eliquis) 2.5 mg PO BID #180 tabs 01/14/23 doxycycline monohydrate 100 mg 100 mg PO BID 14 days #28 tabs 01/22/23 tablet sucralfate 1 gram tablet 1 g PO TID PRN gastritis 14 days 01/26/23 #42 tabs doxycycline monohydrate 100 mg 100 mg PO BID #14 caps 02/13/23 capsule (Monodox) Allergies Allergy/AdvReac Type Severity Reaction Status Date / Time No Known Allergies Allergy Verified 02/12/23 14:14 Review of Systems Constitutional: Constitutional: Reports no additional constitutional complaints ENT: Reports system reviewed and no additional complaints, except as docume nted Cardiovascular: Cardiovascular: Reports no additional cardiovascular complaints Respiratory: Respiratory: Reports no additional respiratory complaints Gastrointestinal: Gastrointestinal: Reports no additional gastrointestinal complaints Musculoskeletal: Musculoskeletal: Reports no additional musculoskeletal complaints PMFSH Past Medical History Medical History Anemia Arthritis Asthma exacerbation Asthma-COPD overlap syndrome Back pain Bronchitis Chronic pain syndrome Complex regional pain syndrome i of left lower limb Cough Depression Diabetic neuropathy Diet-controlled diabetes mellitus Disc degeneration, lumbosacral Dizziness Elevated lactic acid level Essential hypertension Fibromyalgia Headache Headache, migraine History of COVID-19 Hypogammaglobulinemia Hypothyroidism Laryngotracheitis Low back pain Morbid obesity Nausea vomiting and diarrhea BABATUNDE (obstructive sleep apnea) Osteoporosis Pleuritic chest pain 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 Pulmonary embolism Sleep apnea Spondylosis of cervical spine 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 TIA (transient ischemic attack) Type 2 diabetes mellitus with unspecified complications Surgical History History of bariatric surgery History of cholecystectomy History of esophagogastroduodenoscopy (EGD) Hx of colonoscopy S/P total abdominal hysterectomy Family History Family History Mother Diabetes Stroke Family/Other Diabetes Father Diabetes Maternal Aunt Cancer Social History Social History Household Members: Caregiver Housing: House Are you a primary customer care representative to a significant other at home: No Do you presently have visiting nurse or other home services: No Alcohol intake: never Patient Tobacco Use Status: Never used Tobacco e-Cigarette/Vaping Use: Never Used Second Hand Smoke Exposure: No Advance Directives: No Advance Directives Information Provided: Yes Advance Directives Date on File: 05/23/21 service: No Current occupational status: unemployed and disabled Physical Exam Vital Signs: Vital Signs: Last Vital Signs Temp 98.7 F 02/13/23 10:40 Pulse 66 02/13/23 10:40 Resp 20 02/13/23 10:40 BP 147/75 H 02/13/23 10:40 Pulse Ox 98 02/13/23 10:40 O2 Del Method Room Air 02/13/23 10:40 BMI result Body Mass Index 33.6 Const: General: cooperative Nutritional Appearance: well nourished Orientation/consciousness: patient oriented x3 HEENT: Head: Yes normal to inspection General nose exam: Normal external nose present Face and sinus: Yes normal facial exam Mouth: Normal oral and palatal mucosa present Neck: Neck: Yes normal visual inspection Chest: Chest palpation & inspection: normal inspection of the chest Resp: Effort & Inspection: able to speak in complete sentences Auscultation: rhonchi and wheezes (minimal) Cardio: Jugular venous distension: no JVD Rate: regular rate Rhythm: regular rhythm GI: Inspection: Yes normal to inspection Palpation (GI): Soft to palpation and not firm Auscultation: normal bowel sounds Skin: General skin exam: no rashes or lesions noted and elasticity normal Lesions: no lesions Rashes: no rashes Neuro: General: patient oriented x3 Course Reevaluation(s) Reevaluation #1: Re-examination patient is doing much better and vital signs are stable oxygenation good I think she can be discharged home shw already has prednisone and albuterol will add doxycycline Time: 10:32 Medications Administered Discontinued Medications Generic Name Dose Route Start Last Admin Trade Name Freq PRN Reason Stop Dose Admin Oxycodone HCl 5 mg 02/13/23 07:26 02/13/23 07:45 Oxycodone Hcl Immed Release 5 Mg Tablet PO 02/13/23 07:27 5 mg ONCE ONE Administration Medical Decision Making Medical Decision Making [facility] Narrative: Patient presented with shortness of breath she has been wheezing, we will give her an albuterol do a chest x-ray I do not think patient is to be admitted to the hospital I will reassess after the albuterol Differential Diagnosis Differential Diagnoses: The differential diagnosis associated with the presentation includes Asthma exacerbation/pneumonia Admission/Observation Consideration of admission/observation: Escalation of care including admission/observation considered Lab Data [facility] Lab Attestation statement: I reviewed the patient's lab results. 02/13/23 07:51 02/13/23 07:51 Labs: Lab Results 02/13/23 02/13/23 Range/Units 07:51 07:51 WBC 12.0 H (4.8-10.8) X10*3/uL RBC 4.61 (4.20-5.50) X10*6/uL Hgb 10.9 L (12.0-16.0) g/dl Hct 37.2 (37.0-47.0) % MCV 80.7 (80.0-98.0) fL MCH 23.6 L (27.0-33.0) pg MCHC 29.3 L (31.0-35.0) g/dl RDW 18.6 H (11.0-16.0) % Plt Count 352 (160-400) X10*3/uL MPV 8.1 L (9.4-12.3) fL Immature Gran % (Auto) 0.8 H (0.0-0.4) % Neut % (Auto) 65.7 (45-73) % Lymph % (Auto) 23.6 (20-40) % [place] % (Auto) 6.7 (2-11) % Eos % (Auto) 2.9 (0-4) % Baso % (Auto) 0.3 (0-2) % Lymph # (Auto) 2.8 (1.2-4.9) X10*3/uL [place] # (Auto) 0.8 (0.1-1.2) X10*3/uL Eos # (Auto) 0.4 (0.0-0.4) X10*3/uL Baso # (Auto) 0.0 (0.0-0.2) X10*3/uL Abs Immat Gran (auto) 0.10 H (0.00-0.03) X10*3/uL Absolute Neuts (auto) 7.9 (2.0-8.3) x10*3/uL Absolute Nucleated RBC 0.000 (0.0-0.012) X10*3/uL Nucleated RBC % (auto) 0.0 (0.0-0.2) /100WBC Sodium 142 (135-145) mmol/L Potassium 4.3 (3.3-5.1) mmol/L Chloride 107 (96-108) mmol/L Carbon Dioxide 28 (22-29) mmol/L Anion Gap 11 L (12-20) BUN 15 (9-16) mg/dL Creatinine 1.25 (0.5-1.4) mg/dL Estim Creat Clear Calc 49.5 Estimated GFR 45 Random Glucose 83 (60-115) mg/dL Calcium 9.8 (8.4-10.2) mg/dL Total Bilirubin 0.4 (0.0-1.0) mg/dL AST 18 (5-31) U/L ALT 23 (0-31) U/L Alkaline Phosphatase 81 (39-117) U/L Total Protein 6.2 L (6.5-8.0) g/dL Albumin 3.9 (3.5-5.0) g/dL Radiology Impression Discussion of test interpretation with radiology: I discussed test interpretation with the radiologist Radiologist Impression: CLINICAL INFORMATION: Cough. COMPARISON: Most recent chest radiograph dated 11/27/2022. TECHNIQUE: Frontal view of the chest was obtained. FINDINGS: The lungs are clear. The cardiomediastinal silhouette is normal in size. There is no pleural effusion or pneumothorax. No acute osseous abnormality. XR/XR chest 1V IMPRESSION: No acute cardiopulmonary findings. 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 Plan Discharge Clinical Impression: Asthmatic bronchitis Patient Disposition: Home, Self-Care Instructions: Asthma (DC) Additional Instructions: Follow-up with your primary care physician, continue the prednisone that you are taking continue the albuterol will add also doxycycline Prescriptions: New doxycycline monohydrate [Monodox] 100 mg capsule 100 mg PO BID Qty: 14 0RF No Action gabapentin [Neurontin] 300 mg capsule 600 mg PO BID 30 Days Qty: 120 11RF ondansetron 4 mg tablet,disintegrating 4 mg PO TID PRN (Reason: nausea and vomiting) 5 Days Qty: 20 0RF Galzin 50 mg (zinc) capsule 100 mg PO DAILY 30 Days Qty: 60 1RF doxycycline monohydrate 100 mg tablet 100 mg PO BID 14 Days Qty: 28 0RF sucralfate 1 gram tablet 1 g PO TID PRN (Reason: gastritis ) 14 Days Qty: 42 0RF montelukast 10 mg tablet 10 mg PO BEDTIME Eliquis 2.5 mg Tablet 2.5 mg PO BID Qty: 180 0RF acetaminophen [Tylenol Extra Strength] 500 mg tablet 500 mg PO Q6H PRN (Reason: pain or fever) Qty: 20 0RF dicyclomine 20 mg tablet 20 mg PO QID PRN (Reason: abdominal pain) Qty: 20 0RF escitalopram oxalate 10 mg tablet 1 tab PO DAILY zolpidem 10 mg tablet 1 tab PO BEDTIME valsartan 160 mg tablet 1 tab PO DAILY cholecalciferol (vitamin D3) 25 mcg (1,000 unit) tablet 1 tab PO DAILY cyanocobalamin (vitamin B-12) 1,000 mcg tablet 1,000 mcg PO DAILY albuterol sulfate 2.5 mg /3 mL (0.083 %) solution for nebulization 2.5 mg inhalation Q4H PRN (Reason: shortness of breath or wheezing) 30 Days Qty: 360 11RF (DME) FreeStyle Lite Strips Strip See Rx Instructions .ROUTE BID Qty: 10 Rx Instructions: As directed betamethasone dipropionate 0.05 % lotion 1 appl topical BID calcipotriene 0.005 % ointment topical prednisone 10 mg tablet 10 mg PO terbinafine HCl 250 mg tablet 250 mg PO DAILY hydroxyzine HCl 25 mg tablet 25 mg PO TID PRN (Reason: itch) fluocinonide 0.05 % ointment topical BID PRN alclometasone 0.05 % cream topical omeprazole 20 mg capsule,delayed release(DR/EC) 20 mg PO DAILY fluticasone propionate 50 mcg/actuation spray,suspension 0 mcg intranasal DAILY ferrous sulfate 325 mg (65 mg iron) tablet 325 mg PO DAILY quetiapine 300 mg tablet 300 mg PO BEDTIME Bevespi Aerosphere 9-4.8 mcg HFA aerosol inhaler 2 puff inhalation Q12H 30 Days Qty: 10.7 11RF benzonatate 200 mg capsule 200 mg PO BID PRN (Reason: cough) 30 Days Qty: 60 6RF oxycodone 5 mg tablet 5 mg PO TID PRN (Reason: pain) 30 Days Qty: 90 0RF Rx Instructions: Partial Fill upon patient request. Referrals: Claudia Villatoro MD [Primary Care Provider] - 1 day Interventions: ED Discharge Assessment Last Done: 02/13/23 10:48 Discharge Date/Time: 02/13/23 10:48
[2023-02-13] MEDS: oxyCODONE HCl Immed Release 5 MG TABLET PO (07:45)
[2023-02-13 07:55] LABS: MANUAL DIFF FLAG NO
[2023-02-13 07:58] LABS: Basophils Percent Auto 0.3 % (0-2); Eosinophils Absolute Auto 0.4 X10*3/uL (0.0-0.4); Eosinophils Percent Auto 2.9 % (0-4); Hematocrit 37.2 % (37.0-47.0); Hemoglobin 10.9 g/dl (12.0-16.0); Imm Gran Pct Auto 0.8 % (0.0-0.4); Lymphocytes Absolute Auto 2.8 X10*3/uL (1.2-4.9); Lymphocytes Percent Auto 23.6 % (20-40); Mean Corpuscular HGB Conc 29.3 g/dl (31.0-35.0); Mean Corpuscular Hemoglobin 23.6 pg (27.0-33.0); Mean Corpuscular Volume 80.7 fL (80.0-98.0); Mean Platelet Volume 8.1 fL (9.4-12.3); Monocytes Absolute Auto 0.8 X10*3/uL (0.1-1.2); Monocytes Percent Auto 6.7 % (2-11); Neutrophils Absolute Auto 7.9 x10*3/uL (2.0-8.3); Neutrophils Percent Auto 65.7 % (45-73); Platelet Count 352 X10*3/uL (160-400); Red Blood Count 4.61 X10*6/uL (4.20-5.50); Red Cell Distribution Width 18.6 % (11.0-16.0)
[2023-02-13 08:15] LABS: Alanine Aminotransferase 23 U/L (0-31); Albumin Level 3.9 g/dL (3.5-5.0); Alkaline Phosphatase 81 U/L (39-117); Anion Gap 11 (12-20); Aspartate Amino Transferase 18 U/L (5-31); Bilirubin Total 0.4 mg/dL (0.0-1.0); Blood Urea Nitrogen 15 mg/dL (9-16); Calcium 9.8 mg/dL (8.4-10.2); Carbon Dioxide 28 mmol/L (22-29); Chloride 107 mmol/L (96-108); Creatinine Clr Calc Pharmacy 49.5; Estimated Glomerular Filt Rate 45; Glucose Random 83 mg/dL (60-115); Potassium 4.3 mmol/L (3.3-5.1); Sodium 142 mmol/L (135-145); Total Protein 6.2 g/dL (6.5-8.0)
[2023-02-13 10:40] VITALS: BP 147/75; PULSE 66; RESP 20; TEMP 37.1; O2SAT 98
== END 2023-02-13 10:48 | disposition home or self-care (01) ==
PROVIDERS: Emergency Provider Emergency Medicine; PCP Internal Medicine
DX: J45.909 Unspecified asthma, uncomplicated (principal); E11.9 Type 2 diabetes mellitus without complications; I10 Essential (primary) hypertension; Z98.84 Bariatric surgery status; Z79.899 Other long term (current) drug therapy
CPT/HCPCS: 36415; 71045; 80053; 85025; 99284

== ENCOUNTER 2023-02-16 14:31 | Outpatient (REF) | payer OTHER, SELFPAY | END 2023-02-16 14:32 | disposition home or self-care (01) | LOC: HO.MDS 14:31 | PROVIDERS: Visit Provider Hospitalist | DX: D80.1 Nonfamilial hypogammaglobulinemia (principal) | CPT/HCPCS: 96365; 96366 ==

== ENCOUNTER → 2023-02-24 15:36 | Outpatient (BNVA) | payer OTHER, SELFPAY | PROVIDERS: PCP Internal Medicine; Visit Provider Anesthesiology | DX: Z51.81 Encounter for therapeutic drug level monitoring (principal); F11.20 Opioid dependence, uncomplicated; M54.50 Low back pain, unspecified; M51.37 Other intervertebral disc degeneration, lumbosacral region; M47.816 Spondylosis without myelopathy or radiculopathy, lumbar region; M47.812 Spondylosis without myelopathy or radiculopathy, cervical region; M81.0 Age-related osteoporosis without current pathological fracture | CPT/HCPCS: 99212 ==

== ENCOUNTER → 2023-03-24 09:37 | Outpatient (BNVA) | payer OTHER, SELFPAY | PROVIDERS: PCP Internal Medicine; Visit Provider Anesthesiology | DX: Z51.81 Encounter for therapeutic drug level monitoring (principal); F11.20 Opioid dependence, uncomplicated; M51.37 Other intervertebral disc degeneration, lumbosacral region; M47.816 Spondylosis without myelopathy or radiculopathy, lumbar region; M47.812 Spondylosis without myelopathy or radiculopathy, cervical region; M81.0 Age-related osteoporosis without current pathological fracture | CPT/HCPCS: 99212 ==

== ENCOUNTER 2023-03-25 21:30 | Emergency (ER) | payer OTHER, SELFPAY ==
--- NOTE | ~2023-03-25 | XR_ITS ---
EXAMINATION: XR CHEST CLINICAL INFORMATION: Shortness of breath. COMPARISON: Chest radiograph 02/13/2023. TECHNIQUE: Frontal view of the chest was obtained. FINDINGS: Low lung volumes with bronchovascular crowding but no discrete focal airspace opacity. No pleural effusion or pneumothorax. Stable prominence of the cardiomediastinal silhouette. No acute osseous abnormalities. The visualized upper abdomen is within normal limits. XR/XR chest 1V IMPRESSION: 1. Low lung volumes with bronchovascular crowding. 2. No focal airspace opacity, pleural effusion or pneumothorax.
[2023-03-25 21:36] VITALS: BP 123/67; PULSE 112; RESP 18; TEMP 37.3; O2SAT 96; BMI 37.2
--- NOTE | 2023-03-25 21:43 | ECG_ITS ---
Test Reason : CHEST PAIN Blood Pressure : / mmHG Vent. Rate : 109 BPM Atrial Rate : 109 BPM P-R Int : 120 ms QRS Dur : 090 ms QT Int : 350 ms P-R-T Axes : 033 -03 015 degrees QTc Int : 471 ms Sinus tachycardia Minimal voltage criteria for LVH, may be normal variant ( R in aVL ) Borderline ECG When compared with ECG of 27-NOV-2022 17:52, No significant change was found Referred By: Generic ED Physician Electronically Signed By:ISIDORO MORALES
[2023-03-25 22:05] LABS: Basophils Percent Auto 0.1 % (0-2); Hematocrit 32.4 % (37.0-47.0); Hemoglobin 9.7 g/dl (12.0-16.0); Imm Gran Abs Auto 0.09 X10*3/uL (0.00-0.03); Imm Gran Pct Auto 0.9 % (0.0-0.4); Lymphocytes Absolute Auto 0.4 X10*3/uL (1.2-4.9); Lymphocytes Percent Auto 4.3 % (20-40); MANUAL DIFF FLAG SCAN; Mean Corpuscular HGB Conc 29.9 g/dl (31.0-35.0); Mean Corpuscular Volume 83.5 fL (80.0-98.0); Mean Platelet Volume 8.4 fL (9.4-12.3); Monocytes Absolute Auto 0.1 X10*3/uL (0.1-1.2); Monocytes Percent Auto 1.3 % (2-11); Neutrophils Absolute Auto 9.1 x10*3/uL (2.0-8.3); Neutrophils Percent Auto 93.4 % (45-73); Platelet Count 336 X10*3/uL (160-400); Red Blood Count 3.88 X10*6/uL (4.20-5.50); Red Cell Distribution Width 19.9 % (11.0-16.0); SCAN SMEAR FLAG 1; White Blood Count 9.7 X10*3/uL (4.8-10.8)
[2023-03-25 22:21] LABS: Alanine Aminotransferase 44 U/L (0-31); Albumin Level 3.6 g/dL (3.5-5.0); Alkaline Phosphatase 89 U/L (39-117); Anion Gap 16 (12-20); Aspartate Amino Transferase 25 U/L (5-31); Bilirubin Total 0.2 mg/dL (0.0-1.0); Blood Urea Nitrogen 32 mg/dL (9-16); Calcium 9.6 mg/dL (8.4-10.2); Carbon Dioxide 19 mmol/L (22-29); Chloride 108 mmol/L (96-108); Creatinine Clr Calc Pharmacy 45.2; Estimated Glomerular Filt Rate 42; Glucose Random 148 mg/dL (60-115); Potassium 4.9 mmol/L (3.3-5.1); Sodium 138 mmol/L (135-145); Total Protein 6.1 g/dL (6.5-8.0)
[2023-03-25 22:22] LABS: SLIDE REVIEW VERIFIED
[2023-03-25 22:22] LABS: Appearance Urine Clear; Color Urine Yellow; Glucose Urine UA Negative (Negative); Leukocyte Esterase Urine Trace (Negative); Nitrite Urine Negative (Negative); PH 5.5 (5.0-9.0); UMIC TRIGGER UACC YES; Urine Blood Negative (Negative); Urine Ketones Negative (Negative); Urine Protein Negative (Neg-Trace)
[2023-03-25 22:24] LABS: Bacteria Urine None Seen (None Seen); Hyaline Casts Urine 0-2 /LPF (0-2); RBC Urine 0-2 /HPF (0-2); Squamous Epithelial Cell Urine 0-2 /HPF (0-2); WBC Urine 0-5 /HPF (0-5)
[2023-03-25 22:29] LABS: Troponin-I High Sensitivity < 2.7 ng/L (<3.5-17.0)
[2023-03-25 23:26] VITALS: BP 130/68; PULSE 101; RESP 16; TEMP 36.8; O2SAT 95
--- NOTE | 2023-03-25 23:42 | PC.NURSE ---
Pt ca&ox3, denies chest pain and sob. Pt reports 10/10 back pain that radiates down right leg. No signs of distress. Pt placed on bedside monitor. CT at bedside. Will continue to monitor.
--- NOTE | 2023-03-26 00:06 | ED.GENADULT ---
HPI - General Adult General Chief complaint: Arrhythmia/Palpitations Stated complaint: elevated heart rate,sob weakness Time Seen by Provider: 03/25/23 23:07 Source: patient Mode of arrival: ambulatory Limitations: no limitations History of Present Illness HPI narrative: Patient comes to the emergency room complaining of coughing. Patient states that her asthma exacerbation has been getting worse, patient states that recently she was using antibiotics for pneumonia. Patient complaining of feeling weak. Patient states that she feels that she has palpitations. Patient just just her albuterol inhaler. Related Data Home Medications Medication Instructions Recorded Confirmed montelukast 10 mg tablet 10 mg PO BEDTIME 08/02/20 02/11/23 cyanocobalamin (vitamin B-12) 1,000 mcg PO DAILY 11/05/20 02/11/23 1,000 mcg tablet escitalopram oxalate 10 mg tablet 1 tab PO DAILY 08/21/22 02/11/23 zolpidem 10 mg tablet 1 tab PO BEDTIME 08/21/22 02/11/23 cholecalciferol (vitamin D3) 25 1 tab PO DAILY 11/28/22 02/11/23 mcg (1,000 unit) tablet valsartan 160 mg tablet 1 tab PO DAILY 11/28/22 02/11/23 quetiapine 300 mg tablet 300 mg PO BEDTIME 12/07/22 02/11/23 alclometasone 0.05 % topical cream appl topical 02/12/23 betamethasone dipropionate 0.05 % 1 appl topical BID 02/12/23 lotion blood sugar diagnostic (FreeStyle #10 ea 02/12/23 Lite Strips) calcipotriene 0.005 % topical topical 02/12/23 ointment ferrous sulfate 325 mg (65 mg 325 mg PO DAILY 02/12/23 iron) tablet fluocinonide 0.05 % topical topical BID PRN 02/12/23 ointment fluticasone propionate 50 0 mcg intranasal DAILY 02/12/23 mcg/actuation nasal spray,suspension hydroxyzine HCl 25 mg tablet 25 mg PO TID PRN itch 02/12/23 omeprazole 20 mg capsule,delayed 20 mg PO DAILY 02/12/23 release prednisone 10 mg tablet 10 mg PO 02/12/23 terbinafine HCl 250 mg tablet 250 mg PO DAILY 02/12/23 Previous Rx's Medication Instructions Recorded acetaminophen 500 mg tablet 500 mg PO Q6H PRN pain or fever 01/21/22 (Tylenol Extra Strength) #20 tabs gabapentin 300 mg capsule 600 mg PO BID 30 days #120 caps 04/03/22 (Neurontin) dicyclomine 20 mg tablet 20 mg PO QID PRN abdominal pain 06/27/22 #20 tabs albuterol sulfate 2.5 mg/3 mL 2.5 mg (3 mL) inhalation Q4H PRN 09/08/22 (0.083 %) solution for nebulization shortness of breath or wheezing 30 days #360 mL ondansetron 4 mg disintegrating 4 mg PO TID PRN nausea and 11/27/22 tablet vomiting 5 days #20 tabs zinc acetate 50 mg (zinc) capsule 100 mg PO DAILY 30 days #60 caps 12/02/22 (Galzin) benzonatate 200 mg capsule 200 mg PO BID PRN cough 30 days 12/07/22 #60 caps glycopyrrolate 9 mcg-formoterol 2 puff inhalation Q12H 30 days 12/07/22 4.8 mcg HFA aerosol inhaler #10.7 grams (Bevespi Aerosphere) apixaban 2.5 mg tablet (Eliquis) 2.5 mg PO BID #180 tabs 01/14/23 doxycycline monohydrate 100 mg 100 mg PO BID #14 caps 02/13/23 capsule (Monodox) sucralfate 1 gram tablet 1 g PO TID PRN gastritis 14 days 02/17/23 #42 tabs naloxone 4 mg/actuation nasal spray 4 mg intranasal Q2M PRN opioid 02/24/23 overdose 1 day #2 ea oxycodone 5 mg tablet 5 mg PO TID PRN pain 30 days #90 03/24/23 tabs Allergies Allergy/AdvReac Type Severity Reaction Status Date / Time No Known Allergies Allergy Verified 03/24/23 10:03 Review of Systems Review of Systems: Constitutional : No Weight loss, No Fever, No Chills, No Night Sweats, No Fatigue, No Malaise ENT/Mouth : No Hearing loss, No Ear Pain, No Nasal Congestion, No Sinus Pain, No Hoarseness, No sore throat, No Rhinorrhea, No Swallowing Difficulty Eyes: No Eye Pain, No Swelling, No Redness, No Foreign Body, No Discharge, No Vision Changes Cardiovascular : No Chest Pain, No Orthopnea, No Edema, No Palpitations Respiratory : Complaining of dry cough, wheezing, shortness of breath Gastrointestinal : No Nausea, No Vomiting, No Diarrhea, No Constipation, No abdominal Pain, No Hematochezia, No Melena Genitourinary : no irregular bleeding, No Dysuria, No Urinary Frequency, No Hematuria, No Urinary Incontinence, No Urgency, No Flank Pain, No Urinary Flow Changes, No Hesitancy Musculoskeletal : Also complaining of lower back pain radiating towards that he , No joint pain, No Myalgias, No Joint Swelling Skin : No Skin Lesions, No rash Neuro : No Weakness, No Numbness, No Paresthesias, No Loss of Consciousness, No Dizziness, No Headache Psych : No Anxiety/Panic, No Depression, No SI/HI/AH/VH, No Social Issues, Heme/Lymph: No Bruising, No Bleeding,No Lymphadenopathy Endocrine : No Polyuria, No Polydipsia, No Temperature Intolerance PMFSH Past Medical History Medical History Anemia Arthritis Asthma exacerbation Asthma-COPD overlap syndrome Back pain Bronchitis Chronic pain syndrome Complex regional pain syndrome i of left lower limb Cough Depression Diabetic neuropathy Diet-controlled diabetes mellitus Disc degeneration, lumbosacral Dizziness Elevated lactic acid level Essential hypertension Fibromyalgia Headache Headache, migraine History of COVID-19 Hypogammaglobulinemia Hypothyroidism Laryngotracheitis Low back pain Morbid obesity Nausea vomiting and diarrhea BABATUNDE (obstructive sleep apnea) Osteoporosis Pleuritic chest pain 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 Pulmonary embolism Sleep apnea Spondylosis of cervical spine 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 TIA (transient ischemic attack) Type 2 diabetes mellitus with unspecified complications Surgical History History of bariatric surgery History of cholecystectomy History of esophagogastroduodenoscopy (EGD) Hx of colonoscopy S/P total abdominal hysterectomy Family History Family History Mother Diabetes Stroke Family/Other Diabetes Father Diabetes Maternal Aunt Cancer Social History Social History Household Members: Caregiver Housing: House Are you a primary housekeeper caregiver to a significant other at home: No Do you presently have visiting nurse or other home services: No Alcohol intake: never Patient Tobacco Use Status: Never used Tobacco Smoked in Last 30 Days: No e-Cigarette/Vaping Use: Never Used Second Hand Smoke Exposure: No Use of substances other than those prescribed or required for medical reasons: No Advance Directives: No Advance Directives Information Provided: Yes Advance Directives Date on File: 05/23/21 Patient : No service: No Current occupational status: unemployed and disabled Physical Exam ED Vital Signs: Vital Signs - 24 hr 03/25/23 21:36 03/25/23 23:26 Temperature 99.2 F 98.3 F Pulse Rate 112 H 101 H Respiratory Rate 18 16 Blood Pressure 123/67 130/68 Pulse Oximetry 96 95 Oxygen Delivery Method Room Air Room Air BMI result Body Mass Index 37.2 Const Other: Appearance: Alert. Oriented X3. No acute distress. Eyes: Pupils equal, round and reactive to light. ENT: Pharynx normal. Neck: Normal inspection. Neck supple. No lymph nodes noted. No crepitus CVS: Normal heart rate and rhythm. Pulses normal. Normal S1 and S2 Respiratory: No respiratory distress. mild rales No Wheezing. No rales Abdomen: Soft and nontender. No rigidity. No distention. Skin: Skin warm and dry. Normal skin color. Normal skin turgor. Extremities: No lower extremity edema. No Lacerations. No Rash Neuro: Oriented X 3. No motor deficit. No sensory deficit. Moving all extremities. No slurred speech. CN 2 through 12 grossly intact Psych: calm, cooperative, normal affect Medical Decision Making Medical Decision Making [facility] Narrative: -patient's white blood cell count within normal limits, normal blood pressure, no fever, 96% on room air. -patient was ambulated around the emergency room, oxygen saturation stayed at 96% on room air. -chest x-ray my interpretation: No infiltrates -patient's tachycardia was likely secondary to using her inhaler. Patient came in with clear lungs, not wheezing, oxygen saturation 96%. -patient is coughing likely related to bronchitis, antibiotics not indicated at this time. -patient has chronic anemia, at baseline Lab Data [facility] Lab Attestation statement: I reviewed the patient's lab results. 03/25/23 21:59 03/25/23 21:59 Labs: Lab Results 03/25/23 03/25/23 03/25/23 Range/Units 21:59 21:59 21:59 WBC 9.7 (4.8-10.8) X10*3/uL RBC 3.88 L (4.20-5.50) X10*6/uL Hgb 9.7 L (12.0-16.0) g/dl Hct 32.4 L (37.0-47.0) % MCV 83.5 (80.0-98.0) fL MCH 25.0 L (27.0-33.0) pg MCHC 29.9 L (31.0-35.0) g/dl RDW 19.9 H (11.0-16.0) % Plt Count 336 (160-400) X10*3/uL MPV 8.4 L (9.4-12.3) fL Immature Gran % (Auto) 0.9 H (0.0-0.4) % Neut % (Auto) 93.4 H (45-73) % Lymph % (Auto) 4.3 L (20-40) % [place] % (Auto) 1.3 L (2-11) % Eos % (Auto) 0.0 (0-4) % Baso % (Auto) 0.1 (0-2) % Lymph # (Auto) 0.4 L (1.2-4.9) X10*3/uL [place] # (Auto) 0.1 (0.1-1.2) X10*3/uL Eos # (Auto) 0.0 (0.0-0.4) X10*3/uL Baso # (Auto) 0.0 (0.0-0.2) X10*3/uL Abs Immat Gran (auto) 0.09 H (0.00-0.03) X10*3/uL Absolute Neuts (auto) 9.1 H (2.0-8.3) x10*3/uL Absolute Nucleated RBC 0.000 (0.0-0.012) X10*3/uL Nucleated RBC % (auto) 0.0 (0.0-0.2) /100WBC Smear Tech's Comments VERIFIED Sodium 138 (135-145) mmol/L Potassium 4.9 (3.3-5.1) mmol/L Chloride 108 (96-108) mmol/L Carbon Dioxide 19 L (22-29) mmol/L Anion Gap 16 (12-20) BUN 32 H (9-16) mg/dL Creatinine 1.33 (0.5-1.4) mg/dL Estim Creat Clear Calc 45.2 Estimated GFR 42 Random Glucose 148 H (60-115) mg/dL Calcium 9.6 (8.4-10.2) mg/dL Total Bilirubin 0.2 (0.0-1.0) mg/dL AST 25 (5-31) U/L ALT 44 H (0-31) U/L Alkaline Phosphatase 89 (39-117) U/L Troponin I High Sens < 2.7 (<3.5-17.0) ng/L Total Protein 6.1 L (6.5-8.0) g/dL Albumin 3.6 (3.5-5.0) g/dL Urine Color Urine Appearance Urine pH (5.0-9.0) Ur Specific [place] (1.005-1.025) Urine Protein (Neg-Trace) mg/dL Urine Glucose (UA) (Negative) mg/dL Urine Ketones (Negative) mg/dL Urine Blood (Negative) Urine Nitrite (Negative) Ur Leukocyte Esterase (Negative) Urine RBC (0-2) /HPF Urine WBC (0-5) /HPF Ur Squamous Epith Cells (0-2) /HPF Urine Bacteria (None Seen) Hyaline Casts (0-2) /LPF 03/25/23 Range/Units 22:16 WBC (4.8-10.8) X10*3/uL RBC (4.20-5.50) X10*6/uL Hgb (12.0-16.0) g/dl Hct (37.0-47.0) % MCV (80.0-98.0) fL MCH (27.0-33.0) pg MCHC (31.0-35.0) g/dl RDW (11.0-16.0) % Plt Count (160-400) X10*3/uL MPV (9.4-12.3) fL Immature Gran % (Auto) (0.0-0.4) % Neut % (Auto) (45-73) % Lymph % (Auto) (20-40) % [place] % (Auto) (2-11) % Eos % (Auto) (0-4) % Baso % (Auto) (0-2) % Lymph # (Auto) (1.2-4.9) X10*3/uL [place] # (Auto) (0.1-1.2) X10*3/uL Eos # (Auto) (0.0-0.4) X10*3/uL Baso # (Auto) (0.0-0.2) X10*3/uL Abs Immat Gran (auto) (0.00-0.03) X10*3/uL Absolute Neuts (auto) (2.0-8.3) x10*3/uL Absolute Nucleated RBC (0.0-0.012) X10*3/uL Nucleated RBC % (auto) (0.0-0.2) /100WBC Smear Tech's Comments Sodium (135-145) mmol/L Potassium (3.3-5.1) mmol/L Chloride (96-108) mmol/L Carbon Dioxide (22-29) mmol/L Anion Gap (12-20) BUN (9-16) mg/dL Creatinine (0.5-1.4) mg/dL Estim Creat Clear Calc Estimated GFR Random Glucose (60-115) mg/dL Calcium (8.4-10.2) mg/dL Total Bilirubin (0.0-1.0) mg/dL AST (5-31) U/L ALT (0-31) U/L Alkaline Phosphatase (39-117) U/L Troponin I High Sens (<3.5-17.0) ng/L Total Protein (6.5-8.0) g/dL Albumin (3.5-5.0) g/dL Urine Color Yellow Urine Appearance Clear Urine pH 5.5 (5.0-9.0) Ur Specific [place] 1.020 (1.005-1.025) Urine Protein Negative (Neg-Trace) mg/dL Urine Glucose (UA) Negative (Negative) mg/dL Urine Ketones Negative (Negative) mg/dL Urine Blood Negative (Negative) Urine Nitrite Negative (Negative) Ur Leukocyte Esterase Trace H (Negative) Urine RBC 0-2 (0-2) /HPF Urine WBC 0-5 (0-5) /HPF Ur Squamous Epith Cells 0-2 (0-2) /HPF Urine Bacteria None Seen (None Seen) Hyaline Casts 0-2 (0-2) /LPF Radiology Impression Discussion of test interpretation with radiology: I have reviewed the radiologist's reading. Radiologist Impression: [address] [address] XRay Report Signed Patient: Maye Dye MR#: [id number] : 1970 Acct:[id number] Age/Sex: 53 / F ADM Date: 03/26/23 Loc: HO.ED Attending Dr: Ordering Physician: Danitza Connell MD Date of Service: 03/25/23 Procedure(s): XR chest 1V Accession Number(s): [id number] cc: Danitza Connell MD~ EXAMINATION: XR CHEST CLINICAL INFORMATION: Shortness of breath. COMPARISON: Chest radiograph 02/13/2023. TECHNIQUE: Frontal view of the chest was obtained. FINDINGS: Low lung volumes with bronchovascular crowding but no discrete focal airspace opacity. No pleural effusion or pneumothorax. Stable prominence of the cardiomediastinal silhouette. No acute osseous abnormalities. The visualized upper abdomen is within normal limits. XR/XR chest 1V IMPRESSION: 1.? Low lung volumes with bronchovascular crowding. 2.? No focal airspace opacity, pleural effusion or pneumothorax. ? Discharge Plan Discharge Clinical Impression: Acute viral bronchitis Patient Disposition: Home, Self-Care Instructions: Acute Bronchitis (ED) Additional Instructions: Please follow-up with your primary care physician tomorrow. If you have any worsening or new symptoms, please return to the emergency room or call 911 Prescriptions: No Action gabapentin [Neurontin] 300 mg capsule 600 mg PO BID 30 Days Qty: 120 11RF ondansetron 4 mg tablet,disintegrating 4 mg PO TID PRN (Reason: nausea and vomiting) 5 Days Qty: 20 0RF Galzin 50 mg (zinc) capsule 100 mg PO DAILY 30 Days Qty: 60 1RF sucralfate 1 gram tablet 1 g PO TID PRN (Reason: gastritis ) 14 Days Qty: 42 0RF montelukast 10 mg tablet 10 mg PO BEDTIME Eliquis 2.5 mg Tablet 2.5 mg PO BID Qty: 180 0RF acetaminophen [Tylenol Extra Strength] 500 mg tablet 500 mg PO Q6H PRN (Reason: pain or fever) Qty: 20 0RF dicyclomine 20 mg tablet 20 mg PO QID PRN (Reason: abdominal pain) Qty: 20 0RF escitalopram oxalate 10 mg tablet 1 tab PO DAILY zolpidem 10 mg tablet 1 tab PO BEDTIME valsartan 160 mg tablet 1 tab PO DAILY cholecalciferol (vitamin D3) 25 mcg (1,000 unit) tablet 1 tab PO DAILY doxycycline monohydrate [Monodox] 100 mg capsule 100 mg PO BID Qty: 14 0RF cyanocobalamin (vitamin B-12) 1,000 mcg tablet 1,000 mcg PO DAILY albuterol sulfate 2.5 mg /3 mL (0.083 %) solution for nebulization 2.5 mg inhalation Q4H PRN (Reason: shortness of breath or wheezing) 30 Days Qty: 360 11RF (DME) FreeStyle Lite Strips Strip See Rx Instructions .ROUTE BID Qty: 10 Rx Instructions: As directed betamethasone dipropionate 0.05 % lotion 1 appl topical BID calcipotriene 0.005 % ointment topical prednisone 10 mg tablet 10 mg PO terbinafine HCl 250 mg tablet 250 mg PO DAILY hydroxyzine HCl 25 mg tablet 25 mg PO TID PRN (Reason: itch) fluocinonide 0.05 % ointment topical BID PRN alclometasone 0.05 % cream topical omeprazole 20 mg capsule,delayed release(DR/EC) 20 mg PO DAILY fluticasone propionate 50 mcg/actuation spray,suspension 0 mcg intranasal DAILY ferrous sulfate 325 mg (65 mg iron) tablet 325 mg PO DAILY quetiapine 300 mg tablet 300 mg PO BEDTIME Bevespi Aerosphere 9-4.8 mcg HFA aerosol inhaler 2 puff inhalation Q12H 30 Days Qty: 10.7 11RF benzonatate 200 mg capsule 200 mg PO BID PRN (Reason: cough) 30 Days Qty: 60 6RF naloxone 4 mg/actuation spray,non-aerosol 4 mg intranasal Q2M PRN (Reason: opioid overdose) 1 Days Qty: 2 2RF Rx Instructions: spray 1 dose into ONE nostril; alternate nostrils w each dose until help arrives oxycodone 5 mg tablet 5 mg PO TID PRN (Reason: pain) 30 Days Qty: 90 0RF Rx Instructions: Partial Fill upon patient request.
--- NOTE | 2023-03-26 00:18 | PC.NURSE ---
Pt ca&ox3, no signs of distress. Pt ambulated with assist to bathroom with SPO2 monitor @ 94-96% room air. Provider made aware.
== END 2023-03-26 01:02 | disposition home or self-care (01) ==
PROVIDERS: Emergency Provider Emergency Medicine; PCP Internal Medicine
DX: J20.8 Acute bronchitis due to other specified organisms (principal); E11.9 Type 2 diabetes mellitus without complications; I10 Essential (primary) hypertension; Z86.73 Personal history of transient ischemic attack (TIA), and cerebral infarction without residual deficits; Z86.711 Personal history of pulmonary embolism; Z79.01 Long term (current) use of anticoagulants; Z79.899 Other long term (current) drug therapy
CPT/HCPCS: 36415; 71045; 80053; 81001; 84484; 85025; 93005; 99283; 99285

== ENCOUNTER → 2023-04-02 12:25 | Outpatient (BNVA) | payer OTHER, SELFPAY | PROVIDERS: PCP Internal Medicine; Visit Provider Hospitalist | DX: J44.9 Chronic obstructive pulmonary disease, unspecified (principal); G47.33 Obstructive sleep apnea (adult) (pediatric); I27.82 Chronic pulmonary embolism; R05.9 Cough, unspecified | CPT/HCPCS: 99212 ==

== ENCOUNTER 2023-04-19 08:40 | Emergency (ER) | payer OTHER, SELFPAY ==
--- NOTE | ~2023-04-19 | XR_ITS ---
EXAMINATION: XR CHEST CLINICAL INFORMATION: Cough. Shortness of breath. COMPARISON: Multiple priors, most recent chest regressed dated 03/25/2023. TECHNIQUE: 2 views of the chest were obtained. FINDINGS: The lungs are clear. The cardiomediastinal silhouette is normal in size. There is no pleural effusion or pneumothorax. No acute osseous abnormality. XR/XR chest 2V IMPRESSION: No acute cardiopulmonary findings.
[2023-04-19 08:43] VITALS: BP 149/80; PULSE 115; RESP 32; TEMP 37.1; O2SAT 99; BMI 36.4
[2023-04-19 10:00] VITALS: BP 135/69; PULSE 75; RESP 16; TEMP 36.8; O2SAT 95
[2023-04-19 10:33] LABS: MANUAL DIFF FLAG NO
[2023-04-19 10:35] LABS: Basophils Percent Auto 0.2 % (0-2); Eosinophils Absolute Auto 0.1 X10*3/uL (0.0-0.4); Eosinophils Percent Auto 0.6 % (0-4); Hematocrit 30.8 % (37.0-47.0); Hemoglobin 9.1 g/dl (12.0-16.0); Imm Gran Abs Auto 0.29 X10*3/uL (0.00-0.03); Imm Gran Pct Auto 2.6 % (0.0-0.4); Lymphocytes Absolute Auto 0.9 X10*3/uL (1.2-4.9); Lymphocytes Percent Auto 7.6 % (20-40); Mean Corpuscular HGB Conc 29.5 g/dl (31.0-35.0); Mean Corpuscular Hemoglobin 24.7 pg (27.0-33.0); Mean Corpuscular Volume 83.7 fL (80.0-98.0); Mean Platelet Volume 8.9 fL (9.4-12.3); Monocytes Absolute Auto 0.7 X10*3/uL (0.1-1.2); Monocytes Percent Auto 5.8 % (2-11); NRBC Pct Auto 0.2 /100WBC (0.0-0.2); Neutrophils Absolute Auto 9.4 x10*3/uL (2.0-8.3); Neutrophils Percent Auto 83.2 % (45-73); Platelet Count 261 X10*3/uL (160-400); Red Blood Count 3.68 X10*6/uL (4.20-5.50); Red Cell Distribution Width 20.5 % (11.0-16.0); White Blood Count 11.3 X10*3/uL (4.8-10.8)
[2023-04-19 10:38] LABS: Lactic Acid 1.8 mmol/L (0.5-2.0)
[2023-04-19 10:42] LABS: Influenza A PCR NEGATIVE (Negative); Influenza B PCR NEGATIVE (Negative); Resp Syncy Virus RNA Qual PCR NEGATIVE (Negative); SARS COV2 PCR INHOUSE NEGATIVE (Negative)
[2023-04-19 10:43] LABS: VBG Base Excess 4.2 mmol/L; VBG HCO3 23 mmol/L (22-26); VBG pCO2 20 mmHg; VBG pO2 72 mmHg
[2023-04-19 10:45] LABS: Venous Blood Gas Refer to POC result
[2023-04-19 10:47] LABS: VBG pH 7.67 (7.32-7.43)
[2023-04-19 10:59] LABS: Alanine Aminotransferase 36 U/L (0-31); Albumin Level 3.1 g/dL (3.5-5.0); Alkaline Phosphatase 63 U/L (39-117); Anion Gap 14 (12-20); Aspartate Amino Transferase 26 U/L (5-31); Bilirubin Total 0.3 mg/dL (0.0-1.0); Blood Urea Nitrogen 27 mg/dL (9-16); Calcium 9.9 mg/dL (8.4-10.2); Carbon Dioxide 22 mmol/L (22-29); Chloride 109 mmol/L (96-108); Creatinine Clr Calc Pharmacy 49.6; Estimated Glomerular Filt Rate 47; Glucose Random 100 mg/dL (60-115); Potassium 4.9 mmol/L (3.3-5.1); Sodium 140 mmol/L (135-145); Total Protein 5.7 g/dL (6.5-8.0)
[2023-04-19 11:04] LABS: B Type Natriuretic Peptide 147 pg/mL (<100)
[2023-04-19] MEDS: Furosemide 40 MG/4 ML VIAL IVPUSH (11:29)
[2023-04-19 12:31] LABS: Appearance Urine Clear; Color Urine Yellow; Glucose Urine UA Negative (Negative); Leukocyte Esterase Urine Moderate (2+) (Negative); Nitrite Urine Negative (Negative); PH 5.5 (5.0-9.0); UMIC TRIGGER UACC YES; Urine Blood Negative (Negative); Urine Ketones Negative (Negative); Urine Protein Negative (Neg-Trace)
[2023-04-19 12:33] LABS: Bacteria Urine None Seen (None Seen); Hyaline Casts Urine 0-2 /LPF (0-2); RBC Urine 0-2 /HPF (0-2); Squamous Epithelial Cell Urine 0-2 /HPF (0-2); UACC Culture Trigger YES
[2023-04-19] MEDS: Benzonatate 100 MG CAPSULE 200 MG PO (12:56)
[2023-04-19 12:57] VITALS: PULSE 81; RESP 20; O2SAT 99
--- NOTE | 2023-04-19 13:22 | ED_ITS ---
HPI - SOB/Dyspnea General Chief Complaint: Dyspnea Stated Complaint: SOB Time Seen by Provider: 04/19/23 09:37 Related Data Home Medications Medication Instructions Recorded Confirmed montelukast 10 mg tablet 10 mg PO BEDTIME 08/02/20 02/11/23 cyanocobalamin (vitamin B-12) 1,000 mcg PO DAILY 11/05/20 02/11/23 1,000 mcg tablet escitalopram oxalate 10 mg tablet 1 tab PO DAILY 08/21/22 02/11/23 zolpidem 10 mg tablet 1 tab PO BEDTIME 08/21/22 02/11/23 cholecalciferol (vitamin D3) 25 1 tab PO DAILY 11/28/22 02/11/23 mcg (1,000 unit) tablet valsartan 160 mg tablet 1 tab PO DAILY 11/28/22 02/11/23 quetiapine 300 mg tablet 300 mg PO BEDTIME 12/07/22 02/11/23 alclometasone 0.05 % topical cream appl topical 02/12/23 betamethasone dipropionate 0.05 % 1 appl topical BID 02/12/23 lotion blood sugar diagnostic (FreeStyle #10 ea 02/12/23 Lite Strips) calcipotriene 0.005 % topical topical 02/12/23 ointment ferrous sulfate 325 mg (65 mg 325 mg PO DAILY 02/12/23 iron) tablet fluocinonide 0.05 % topical topical BID PRN 02/12/23 ointment fluticasone propionate 50 0 mcg intranasal DAILY 02/12/23 mcg/actuation nasal spray,suspension hydroxyzine HCl 25 mg tablet 25 mg PO TID PRN itch 02/12/23 omeprazole 20 mg capsule,delayed 20 mg PO DAILY 02/12/23 release prednisone 10 mg tablet 10 mg PO 02/12/23 terbinafine HCl 250 mg tablet 250 mg PO DAILY 02/12/23 nebulizers 04/02/23 Previous Rx's Medication Instructions Recorded acetaminophen 500 mg tablet 500 mg PO Q6H PRN pain or fever 01/21/22 (Tylenol Extra Strength) #20 tabs dicyclomine 20 mg tablet 20 mg PO QID PRN abdominal pain 06/27/22 #20 tabs albuterol sulfate 2.5 mg/3 mL 2.5 mg (3 mL) inhalation Q4H PRN 09/08/22 (0.083 %) solution for nebulization shortness of breath or wheezing 30 days #360 mL ondansetron 4 mg disintegrating 4 mg PO TID PRN nausea and 11/27/22 tablet vomiting 5 days #20 tabs zinc acetate 50 mg (zinc) capsule 100 mg PO DAILY 30 days #60 caps 12/02/22 (Galzin) benzonatate 200 mg capsule 200 mg PO BID PRN cough 30 days 12/07/22 #60 caps glycopyrrolate 9 mcg-formoterol 2 puff inhalation Q12H 30 days 12/07/22 4.8 mcg HFA aerosol inhaler #10.7 grams (Bevespi Aerosphere) doxycycline monohydrate 100 mg 100 mg PO BID #14 caps 02/13/23 capsule (Monodox) sucralfate 1 gram tablet 1 g PO TID PRN gastritis 14 days 02/17/23 #42 tabs naloxone 4 mg/actuation nasal spray 4 mg intranasal Q2M PRN opioid 02/24/23 overdose 1 day #2 ea oxycodone 5 mg tablet 5 mg PO TID PRN pain 30 days #90 03/24/23 tabs benzonatate 200 mg capsule 200 mg PO BID PRN cough 30 days 04/02/23 #60 caps budesonide 160 mcg-glycopyr 9 2 inh inhalation BID 30 days #10.7 04/02/23 mcg-formot 4.8 mcg/actuation HFA grams inhaler (Breztri Aerosphere) gabapentin 300 mg capsule 600 mg PO BID #120 caps 04/14/23 apixaban 2.5 mg tablet (Eliquis) 2.5 mg PO BID #180 tabs 04/17/23 cefdinir 300 mg capsule 300 mg PO BID 3 days #6 caps 04/19/23 Allergies Allergy/AdvReac Type Severity Reaction Status Date / Time No Known Allergies Allergy Verified 04/02/23 13:20 [facility] Past Medical History Medical History Anemia Arthritis Asthma exacerbation Asthma-COPD overlap syndrome Back pain Bronchitis Chronic pain syndrome Complex regional pain syndrome i of left lower limb Cough Depression Diabetic neuropathy Diet-controlled diabetes mellitus Disc degeneration, lumbosacral Dizziness Elevated lactic acid level Essential hypertension Fibromyalgia Headache Headache, migraine History of COVID-19 Hypogammaglobulinemia Hypothyroidism Laryngotracheitis Low back pain Morbid obesity Nausea vomiting and diarrhea BABATUNDE (obstructive sleep apnea) Osteoporosis Pleuritic chest pain 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 Pulmonary embolism Sleep apnea Spondylosis of cervical spine 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 TIA (transient ischemic attack) Type 2 diabetes mellitus with unspecified complications Surgical History History of bariatric surgery History of cholecystectomy History of esophagogastroduodenoscopy (EGD) Hx of colonoscopy S/P total abdominal hysterectomy Family History Family History Mother Diabetes Stroke Family/Other Diabetes Father Diabetes Maternal Aunt Cancer Social History Social History Household Members: Caregiver Housing: House Are you a primary skin care specialist to a significant other at home: No Do you presently have visiting nurse or other home services: No Alcohol intake: never Patient Tobacco Use Status: Never used Tobacco e-Cigarette/Vaping Use: Never Used Second Hand Smoke Exposure: No Advance Directives: No Advance Directives Information Provided: No Advance Directives Date on File: 05/23/21 service: No Current occupational status: unemployed and disabled Physical Exam Vital Signs: Vital Signs: Last Vital Signs Temp 98.3 F 04/19/23 10:00 Pulse 81 04/19/23 12:57 Resp 20 04/19/23 12:57 BP 135/69 04/19/23 10:00 Pulse Ox 99 04/19/23 12:57 O2 Del Method Room Air 04/19/23 12:57 BMI result Body Mass Index 36.4 Medications Administered Discontinued Medications Generic Name Dose Route Start Last Admin Trade Name Freq PRN Reason Stop Dose Admin Benzonatate 200 mg 04/19/23 12:26 04/19/23 12:56 Benzonatate 100 Mg Capsule PO 04/19/23 12:27 200 mg ONCE ONE Administration Furosemide 40 mg 04/19/23 11:13 04/19/23 11:29 Furosemide 40 Mg/4 Ml Vial IVPUSH 04/19/23 11:14 40 mg ONCE ONE Administration Protocol Medical Decision Making Lab Data 04/19/23 10:29 04/19/23 10:29 Labs: Lab Results 04/19/23 04/19/23 04/19/23 Range/Units 08:57 10:16 10:29 WBC 11.3 H (4.8-10.8) X10*3/uL RBC 3.68 L (4.20-5.50) X10*6/uL Hgb 9.1 L (12.0-16.0) g/dl Hct 30.8 L (37.0-47.0) % MCV 83.7 (80.0-98.0) fL MCH 24.7 L (27.0-33.0) pg MCHC 29.5 L (31.0-35.0) g/dl RDW 20.5 H (11.0-16.0) % Plt Count 261 (160-400) X10*3/uL MPV 8.9 L (9.4-12.3) fL Immature Gran % (Auto) 2.6 H (0.0-0.4) % Neut % (Auto) 83.2 H (45-73) % Lymph % (Auto) 7.6 L (20-40) % Amador % (Auto) 5.8 (2-11) % Eos % (Auto) 0.6 (0-4) % Baso % (Auto) 0.2 (0-2) % Lymph # (Auto) 0.9 L (1.2-4.9) X10*3/uL Am[place] # (Auto) 0.7 (0.1-1.2) X10*3/uL Eos # (Auto) 0.1 (0.0-0.4) X10*3/uL Baso # (Auto) 0.0 (0.0-0.2) X10*3/uL Abs Immat Gran (auto) 0.29 H (0.00-0.03) X10*3/uL Absolute Neuts (auto) 9.4 H (2.0-8.3) x10*3/uL Absolute Nucleated RBC 0.020 H (0.0-0.012) X10*3/uL Nucleated RBC % (auto) 0.2 (0.0-0.2) /100WBC VBG pH (7.32-7.43) VBG pCO2 mmHg VBG pO2 mmHg VBG HCO3 (22-26) mmol/L VBG O2 Saturation % VBG Base Excess mmol/L Sodium (135-145) mmol/L Potassium (3.3-5.1) mmol/L Chloride (96-108) mmol/L Carbon Dioxide (22-29) mmol/L Anion Gap (12-20) BUN (9-16) mg/dL Creatinine (0.5-1.4) mg/dL Estim Creat Clear Calc Estimated GFR Random Glucose (60-115) mg/dL Lactic Acid 1.8 (0.5-2.0) mmol/L Calcium (8.4-10.2) mg/dL Total Bilirubin (0.0-1.0) mg/dL AST (5-31) U/L ALT (0-31) U/L Alkaline Phosphatase (39-117) U/L B-Natriuretic Peptide (<100) pg/mL Total Protein (6.5-8.0) g/dL Albumin (3.5-5.0) g/dL Urine Color Urine Appearance Urine pH (5.0-9.0) Ur Specific Darden (1.005-1.025) Urine Protein (Neg-Trace) mg/dL Urine Glucose (UA) (Negative) mg/dL Urine Ketones (Negative) mg/dL Urine Blood (Negative) Urine Nitrite (Negative) Ur Leukocyte Esterase (Negative) Urine RBC (0-2) /HPF Urine WBC (0-5) /HPF Ur Squamous Epith Cells (0-2) /HPF Urine Bacteria (None Seen) Hyaline Casts (0-2) /LPF Influenza Type A (PCR) NEGATIVE (Negative) Influenza Type B (PCR) NEGATIVE (Negative) RSV RNA Qual (PCR) NEGATIVE (Negative) SARS-CoV-2 RNA (RT-PCR) NEGATIVE (Negative) 04/19/23 04/19/23 04/19/23 Range/Units 10:29 10:29 10:32 WBC (4.8-10.8) X10*3/uL RBC (4.20-5.50) X10*6/uL Hgb (12.0-16.0) g/dl Hct (37.0-47.0) % MCV (80.0-98.0) fL MCH (27.0-33.0) pg MCHC (31.0-35.0) g/dl RDW (11.0-16.0) % Plt Count (160-400) X10*3/uL MPV (9.4-12.3) fL Immature Gran % (Auto) (0.0-0.4) % Neut % (Auto) (45-73) % Lymph % (Auto) (20-40) % Amador % (Auto) (2-11) % Eos % (Auto) (0-4) % Baso % (Auto) (0-2) % Lymph # (Auto) (1.2-4.9) X10*3/uL [place] # (Auto) (0.1-1.2) X10*3/uL Eos # (Auto) (0.0-0.4) X10*3/uL Baso # (Auto) (0.0-0.2) X10*3/uL Abs Immat Gran (auto) (0.00-0.03) X10*3/uL Absolute Neuts (auto) (2.0-8.3) x10*3/uL Absolute Nucleated RBC (0.0-0.012) X10*3/uL Nucleated RBC % (auto) (0.0-0.2) /100WBC VBG pH 7.67 H* (7.32-7.43) VBG pCO2 20 mmHg VBG pO2 72 mmHg VBG HCO3 23 (22-26) mmol/L VBG O2 Saturation 96.0 % VBG Base Excess 4.2 mmol/L Sodium 140 (135-145) mmol/L Potassium 4.9 (3.3-5.1) mmol/L Chloride 109 H (96-108) mmol/L Carbon Dioxide 22 (22-29) mmol/L Anion Gap 14 (12-20) BUN 27 H (9-16) mg/dL Creatinine 1.20 (0.5-1.4) mg/dL Estim Creat Clear Calc 49.6 Estimated GFR 47 Random Glucose 100 (60-115) mg/dL Lactic Acid (0.5-2.0) mmol/L Calcium 9.9 (8.4-10.2) mg/dL Total Bilirubin 0.3 (0.0-1.0) mg/dL AST 26 (5-31) U/L ALT 36 H (0-31) U/L Alkaline Phosphatase 63 (39-117) U/L B-Natriuretic Peptide 147 H (<100) pg/mL Total Protein 5.7 L (6.5-8.0) g/dL Albumin 3.1 L (3.5-5.0) g/dL Urine Color Urine Appearance Urine pH (5.0-9.0) Ur Specific Darden (1.005-1.025) Urine Protein (Neg-Trace) mg/dL Urine Glucose (UA) (Negative) mg/dL Urine Ketones (Negative) mg/dL Urine Blood (Negative) Urine Nitrite (Negative) Ur Leukocyte Esterase (Negative) Urine RBC (0-2) /HPF Urine WBC (0-5) /HPF Ur Squamous Epith Cells (0-2) /HPF Urine Bacteria (None Seen) Hyaline Casts (0-2) /LPF Influenza Type A (PCR) (Negative) Influenza Type B (PCR) (Negative) RSV RNA Qual (PCR) (Negative) SARS-CoV-2 RNA (RT-PCR) (Negative) 04/19/23 Range/Units 12:21 WBC (4.8-10.8) X10*3/uL RBC (4.20-5.50) X10*6/uL Hgb (12.0-16.0) g/dl Hct (37.0-47.0) % MCV (80.0-98.0) fL MCH (27.0-33.0) pg MCHC (31.0-35.0) g/dl RDW (11.0-16.0) % Plt Count (160-400) X10*3/uL MPV (9.4-12.3) fL Immature Gran % (Auto) (0.0-0.4) % Neut % (Auto) (45-73) % Lymph % (Auto) (20-40) % Amador % (Auto) (2-11) % Eos % (Auto) (0-4) % Baso % (Auto) (0-2) % Lymph # (Auto) (1.2-4.9) X10*3/uL [place] # (Auto) (0.1-1.2) X10*3/uL Eos # (Auto) (0.0-0.4) X10*3/uL Baso # (Auto) (0.0-0.2) X10*3/uL Abs Immat Gran (auto) (0.00-0.03) X10*3/uL Absolute Neuts (auto) (2.0-8.3) x10*3/uL Absolute Nucleated RBC (0.0-0.012) X10*3/uL Nucleated RBC % (auto) (0.0-0.2) /100WBC VBG pH (7.32-7.43) VBG pCO2 mmHg VBG pO2 mmHg VBG HCO3 (22-26) mmol/L VBG O2 Saturation % VBG Base Excess mmol/L Sodium (135-145) mmol/L Potassium (3.3-5.1) mmol/L Chloride (96-108) mmol/L Carbon Dioxide (22-29) mmol/L Anion Gap (12-20) BUN (9-16) mg/dL Creatinine (0.5-1.4) mg/dL Estim Creat Clear Calc Estimated GFR Random Glucose (60-115) mg/dL Lactic Acid (0.5-2.0) mmol/L Calcium (8.4-10.2) mg/dL Total Bilirubin (0.0-1.0) mg/dL AST (5-31) U/L ALT (0-31) U/L Alkaline Phosphatase (39-117) U/L B-Natriuretic Peptide (<100) pg/mL Total Protein (6.5-8.0) g/dL Albumin (3.5-5.0) g/dL Urine Color Yellow Urine Appearance Clear Urine pH 5.5 (5.0-9.0) Ur Specific Darden 1.020 (1.005-1.025) Urine Protein Negative (Neg-Trace) mg/dL Urine Glucose (UA) Negative (Negative) mg/dL Urine Ketones Negative (Negative) mg/dL Urine Blood Negative (Negative) Urine Nitrite Negative (Negative) Ur Leukocyte Esterase Moderate (2+) H (Negative) Urine RBC 0-2 (0-2) /HPF Urine WBC 11-20 H (0-5) /HPF Ur Squamous Epith Cells 0-2 (0-2) /HPF Urine Bacteria None Seen (None Seen) Hyaline Casts 0-2 (0-2) /LPF Influenza Type A (PCR) (Negative) Influenza Type B (PCR) (Negative) RSV RNA Qual (PCR) (Negative) SARS-CoV-2 RNA (RT-PCR) (Negative) Discharge Plan Discharge Clinical Impression: UTI (urinary tract infection) Patient Disposition: Home, Self-Care Instructions: Urinary Tract Infection in Women (ED) Additional Instructions: 1. Reanudar todos los medicamentos caseros seg?n lo prescrito. 2. Complete todo el ciclo de antibi?ticos seg?n lo indicado. 3. Isamar un seguimiento con marcial proveedor de atenci?n primaria en los pr?ximos 1 o 2 d?as. Regrese a la tierney de emergencias si los s?ntomas empeoran. 1. Resume all home medications as prescribed. 2. Complete the entire course of antibiotics as ordered. 3. Please follow-up with your primary care provider in the next 1-2 days. Return to the ER for any worsening symptoms. Prescriptions: New cefdinir 300 mg capsule 300 mg PO BID 3 Days Qty: 6 0RF No Action ondansetron 4 mg tablet,disintegrating 4 mg PO TID PRN (Reason: nausea and vomiting) 5 Days Qty: 20 0RF Galzin 50 mg (zinc) capsule 100 mg PO DAILY 30 Days Qty: 60 1RF sucralfate 1 gram tablet 1 g PO TID PRN (Reason: gastritis ) 14 Days Qty: 42 0RF gabapentin 300 mg capsule 600 mg PO BID Qty: 120 11RF montelukast 10 mg tablet 10 mg PO BEDTIME Eliquis 2.5 mg Tablet 2.5 mg PO BID Qty: 180 0RF acetaminophen [Tylenol Extra Strength] 500 mg tablet 500 mg PO Q6H PRN (Reason: pain or fever) Qty: 20 0RF dicyclomine 20 mg tablet 20 mg PO QID PRN (Reason: abdominal pain) Qty: 20 0RF escitalopram oxalate 10 mg tablet 1 tab PO DAILY zolpidem 10 mg tablet 1 tab PO BEDTIME valsartan 160 mg tablet 1 tab PO DAILY cholecalciferol (vitamin D3) 25 mcg (1,000 unit) tablet 1 tab PO DAILY doxycycline monohydrate [Monodox] 100 mg capsule 100 mg PO BID Qty: 14 0RF cyanocobalamin (vitamin B-12) 1,000 mcg tablet 1,000 mcg PO DAILY albuterol sulfate 2.5 mg /3 mL (0.083 %) solution for nebulization 2.5 mg inhalation Q4H PRN (Reason: shortness of breath or wheezing) 30 Days Qty: 360 11RF (DME) FreeStyle Lite Strips Strip See Rx Instructions .ROUTE BID Qty: 10 Rx Instructions: As directed betamethasone dipropionate 0.05 % lotion 1 appl topical BID calcipotriene 0.005 % ointment topical prednisone 10 mg tablet 10 mg PO terbinafine HCl 250 mg tablet 250 mg PO DAILY hydroxyzine HCl 25 mg tablet 25 mg PO TID PRN (Reason: itch) fluocinonide 0.05 % ointment topical BID PRN alclometasone 0.05 % cream topical omeprazole 20 mg capsule,delayed release(DR/EC) 20 mg PO DAILY fluticasone propionate 50 mcg/actuation spray,suspension 0 mcg intranasal DAILY ferrous sulfate 325 mg (65 mg iron) tablet 325 mg PO DAILY quetiapine 300 mg tablet 300 mg PO BEDTIME Bevespi Aerosphere 9-4.8 mcg HFA aerosol inhaler 2 puff inhalation Q12H 30 Days Qty: 10.7 11RF benzonatate 200 mg capsule 200 mg PO BID PRN (Reason: cough) 30 Days Qty: 60 6RF (DME) nebulizers Misc See Rx Instructions .ROUTE Rx Instructions: As directed Breztri Aerosphere 160-9-4.8 mcg/actuation HFA aerosol inhaler 2 inh inhalation BID 30 Days Qty: 10.7 11RF benzonatate 200 mg capsule 200 mg PO BID PRN (Reason: cough) 30 Days Qty: 60 6RF naloxone 4 mg/actuation spray,non-aerosol 4 mg intranasal Q2M PRN (Reason: opioid overdose) 1 Days Qty: 2 2RF Rx Instructions: spray 1 dose into ONE nostril; alternate nostrils w each dose until help arrives oxycodone 5 mg tablet 5 mg PO TID PRN (Reason: pain) 30 Days Qty: 90 0RF Rx Instructions: Partial Fill upon patient request. Referrals: Claudia Villatoro MD [Primary Care Provider] - Print Language: Latvian
[2023-04-19] MEDS: Amoxicillin/Potassium Clav 875 MG TABLET PO (13:49)
== END 2023-04-19 13:52 | disposition home or self-care (01) ==
PROVIDERS: Emergency Provider Student in an Organized Health Care Education/Training Program; PCP Internal Medicine
DX: N39.0 Urinary tract infection, site not specified (principal); R06.02 Shortness of breath; Z20.822 Contact with and (suspected) exposure to COVID-19; Z20.828 Contact with and (suspected) exposure to other viral communicable diseases; Z79.899 Other long term (current) drug therapy
CPT/HCPCS: 0241U; 36415; 71046; 80053; 81001; 82803; 83605; 83880; 85025; 87040; 87086; 96374; 99284; J1940

== ENCOUNTER 2023-04-20 09:44 | Outpatient (REF) | payer OTHER, SELFPAY | END 2023-04-20 09:45 | disposition home or self-care (01) | LOC: HO.MDS 09:44 | PROVIDERS: Visit Provider Hospitalist | DX: D80.1 Nonfamilial hypogammaglobulinemia (principal) | CPT/HCPCS: 96365; 96366 ==

== ENCOUNTER → 2023-04-28 09:33 | Outpatient (BNVA) | payer OTHER, SELFPAY | PROVIDERS: PCP Internal Medicine; Visit Provider Registered Nurse Emergency | DX: M51.37 Other intervertebral disc degeneration, lumbosacral region (principal); M47.816 Spondylosis without myelopathy or radiculopathy, lumbar region; M47.812 Spondylosis without myelopathy or radiculopathy, cervical region; M81.0 Age-related osteoporosis without current pathological fracture; M54.50 Low back pain, unspecified; Z79.891 Long term (current) use of opiate analgesic | CPT/HCPCS: 99212 ==

== ENCOUNTER 2023-05-16 05:08 | Emergency (ER) | payer OTHER, SELFPAY ==
--- NOTE | ~2023-05-16 | CT_ITS ---
EXAMINATION: CT CHEST WITH CONTRAST CLINICAL INFORMATION: Evaluate for superior vena cava syndrome. COMPARISON: Most recent chest radiograph done earlier the same day and CT chest dated 11/13/2021. TECHNIQUE: Multidetector volumetric CT imaging of the chest was obtained after the administration of 65 mL of Omnipaque 350 intravenous contrast without immediate adverse reactions. Axial MIP volume rendering provided. Sagittal and coronal reformatted images were obtained. This CT examination was performed using dose optimization techniques as appropriate, variously including the following: *Automated exposure control *Adjustment of mA and/or kV according to patient size (this includes techniques or standardized protocols for targeted exams where dose is matched to indication/reason for exam; i.e. extremities or head) *Use of iterative reconstruction technique DLP: 344 mGy-cm. 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 LUNGS: No focal airspace consolidation. No pleural effusion or pneumothorax. The central airways are patent. MEDIASTINUM: No cardiomegaly. No pericardial effusion. No mediastinal or hilar lymphadenopathy. No coronary artery calcifications. No mass effect or obstruction of the superior vena cava which opacifies normally. No thoracic aortic dilatation or dissection. The central pulmonary arteries are unremarkable. PLEURA: There is no pleural effusion. No pleural mass or thickening. AXILLA: No lymphadenopathy. UPPER ABDOMEN: Partially visualized and Smitha-en-Y gastric bypass without evidence of complication. Status post cholecystectomy. Simple left renal cyst which is not clinically significant. No dedicated followup imaging of the kidneys is recommended. OSSEOUS STRUCTURES: Unremarkable. CT/CT chest w IV con IMPRESSION: 1. No mass effect or obstruction of the superior vena cava which opacifies normally. 2. No focal airspace consolidation. 3. No lymphadenopathy. Fleischner guidelines were followed.
--- NOTE | ~2023-05-16 | XR_ITS ---
EXAMINATION: XR CHEST CLINICAL INFORMATION: Rule out pneumonia COMPARISON: 04/19/2023 TECHNIQUE: Frontal view of the chest was obtained. FINDINGS: Lung volumes are symmetric. No focal consolidation is seen. No evidence of pneumothorax, pleural effusion, or pulmonary edema. Cardiac silhouette appears near the upper limits of normal in size. No acute osseous findings are seen. XR/XR chest 1V IMPRESSION: No acute cardiopulmonary findings.
--- NOTE | ~2023-05-16 | CT_ITS ---
EXAMINATION: CT HEAD WITHOUT CONTRAST CLINICAL INFORMATION: Chronic headache and severe bilateral air pain. COMPARISON: 11/27/[address] scan[address] TECHNIQUE: Contiguous axial imaging was performed from the skull base to vertex without intravenous administration of contrast. Coronal and sagittal reformatted images were obtained. This CT examination was performed using dose optimization techniques as appropriate, variously including the following: *Automated exposure control *Adjustment of mA and/or kV according to patient size (this includes techniques or standardized protocols for targeted exams where dose is matched to indication/reason for exam; i.e. extremities or head) *Use of iterative reconstruction technique DLP: 638 mGy-cm FINDINGS: The cortical sulci are normal. The lateral ventricles are symmetrical. The third and fourth ventricles are in their normal midline position. The basilar and prepontine cisterns are unremarkable. There is no acute intra or extracerebral abnormality. There is no mass effect or midline shift. Sections through the bony calvarium are unremarkable. The paranasal sinuses are clear. The bony orbits and orbital contents are unremarkable. CT/CT head/brain wo IV con IMPRESSION: No acute intracranial pathology.
[2023-05-16 05:10] VITALS: BP 159/70; PULSE 88; RESP 18; TEMP 36.6; O2SAT 98; BMI 37.0
[2023-05-16] MEDS: Benzonatate 100 MG CAPSULE PO (06:18)
[2023-05-16] MEDS: Morphine Sulfate 4 MG/ML CARTRIDGE IM (06:18)
--- NOTE | 2023-05-16 06:31 | ED_ITS ---
HPI - General Adult General Chief complaint: General Medical Stated complaint: ear head pain asthma Time Seen by Provider: 05/16/23 05:54 Source: patient Mode of arrival: ambulatory Limitations: no limitations History of Present Illness HPI narrative: Patient comes to the emergency room complaining of severe bilateral ear pain. Patient states it has been going on for approximately a month. Patient has been seen already by her PCP, patient has tried antibiotics, pain medications. Nothing is working. Patient states that she feels that her face is getting more swollen. Patient also complaining of cough. Related Data Home Medications Medication Instructions Recorded Confirmed montelukast 10 mg tablet 10 mg PO BEDTIME 08/02/20 02/11/23 cyanocobalamin (vitamin B-12) 1,000 mcg PO DAILY 11/05/20 02/11/23 1,000 mcg tablet escitalopram oxalate 10 mg tablet 1 tab PO DAILY 08/21/22 02/11/23 zolpidem 10 mg tablet 1 tab PO BEDTIME 08/21/22 02/11/23 cholecalciferol (vitamin D3) 25 1 tab PO DAILY 11/28/22 02/11/23 mcg (1,000 unit) tablet valsartan 160 mg tablet 1 tab PO DAILY 11/28/22 02/11/23 quetiapine 300 mg tablet 300 mg PO BEDTIME 12/07/22 02/11/23 alclometasone 0.05 % topical cream appl topical 02/12/23 betamethasone dipropionate 0.05 % 1 appl topical BID 02/12/23 lotion blood sugar diagnostic (FreeStyle #10 ea 02/12/23 Lite Strips) calcipotriene 0.005 % topical topical 02/12/23 ointment ferrous sulfate 325 mg (65 mg 325 mg PO DAILY 02/12/23 iron) tablet fluocinonide 0.05 % topical topical BID PRN 02/12/23 ointment fluticasone propionate 50 0 mcg intranasal DAILY 02/12/23 mcg/actuation nasal spray,suspension hydroxyzine HCl 25 mg tablet 25 mg PO TID PRN itch 02/12/23 omeprazole 20 mg capsule,delayed 20 mg PO DAILY 02/12/23 release prednisone 10 mg tablet 10 mg PO 02/12/23 terbinafine HCl 250 mg tablet 250 mg PO DAILY 02/12/23 nebulizers 04/02/23 Previous Rx's Medication Instructions Recorded acetaminophen 500 mg tablet 500 mg PO Q6H PRN pain or fever 01/21/22 (Tylenol Extra Strength) #20 tabs dicyclomine 20 mg tablet 20 mg PO QID PRN abdominal pain 06/27/22 #20 tabs albuterol sulfate 2.5 mg/3 mL 2.5 mg (3 mL) inhalation Q4H PRN 09/08/22 (0.083 %) solution for nebulization shortness of breath or wheezing 30 days #360 mL ondansetron 4 mg disintegrating 4 mg PO TID PRN nausea and 11/27/22 tablet vomiting 5 days #20 tabs zinc acetate 50 mg (zinc) capsule 100 mg PO DAILY 30 days #60 caps 12/02/22 (Galzin) benzonatate 200 mg capsule 200 mg PO BID PRN cough 30 days 12/07/22 #60 caps glycopyrrolate 9 mcg-formoterol 2 puff inhalation Q12H 30 days 12/07/22 4.8 mcg HFA aerosol inhaler #10.7 grams (Bevespi Aerosphere) doxycycline monohydrate 100 mg 100 mg PO BID #14 caps 02/13/23 capsule (Monodox) sucralfate 1 gram tablet 1 g PO TID PRN gastritis 14 days 02/17/23 #42 tabs naloxone 4 mg/actuation nasal spray 4 mg intranasal Q2M PRN opioid 02/24/23 overdose 1 day #2 ea benzonatate 200 mg capsule 200 mg PO BID PRN cough 30 days 04/02/23 #60 caps budesonide 160 mcg-glycopyr 9 2 inh inhalation BID 30 days #10.7 04/02/23 mcg-formot 4.8 mcg/actuation HFA grams inhaler (Breztri Aerosphere) gabapentin 300 mg capsule 600 mg PO BID #120 caps 04/14/23 apixaban 2.5 mg tablet (Eliquis) 2.5 mg PO BID #180 tabs 04/17/23 cefdinir 300 mg capsule 300 mg PO BID 3 days #6 caps 04/19/23 oxycodone 5 mg tablet 5 mg PO TID PRN pain 30 days #90 04/28/23 tabs amoxicillin 875 mg-potassium 1 tab PO BID 10 days #20 tabs 04/29/23 clavulanate 125 mg tablet cefpodoxime 200 mg tablet 200 mg PO BID #20 tabs 04/30/23 Allergies Allergy/AdvReac Type Severity Reaction Status Date / Time No Known Allergies Allergy Verified 04/28/23 09:49 Review of Systems Review of Systems: Constitutional : No Weight loss, No Fever, No Chills, No Night Sweats, No Fatigue, No Malaise ENT/Mouth : No Hearing loss, patient complaining of chronic bilateral ear pain and facial pain, No Nasal Congestion, No Sinus Pain, No Hoarseness, No sore throat, No Rhinorrhea, No Swallowing Difficulty Eyes: No Eye Pain, No Swelling, No Redness, No Foreign Body, No Discharge, No Vision Changes Cardiovascular : No Chest Pain, No SOB, No Dyspnea on Exertion, No Orthopnea, No Edema, No Palpitations Respiratory : Patient complaining of Cough, No Sputum, No Wheezing, No Smoke Exposure, No Dyspnea Gastrointestinal : No Nausea, No Vomiting, No Diarrhea, No Constipation, No abdominal Pain, No Hematochezia, No Melena Genitourinary : no irregular bleeding, No Dysuria, No Urinary Frequency, No Hematuria, No Urinary Incontinence, No Urgency, No Flank Pain, No Urinary Flow Changes, No Hesitancy Musculoskeletal : No joint pain, No Myalgias, No Joint Swelling Skin : No Skin Lesions, No rash Neuro : No Weakness, No Numbness, No Paresthesias, No Loss of Consciousness, No Dizziness, No Headache Psych : No Anxiety/Panic, No Depression, No SI/HI/AH/VH, No Social Issues, Heme/Lymph: No Bruising, No Bleeding,No Lymphadenopathy Endocrine : No Polyuria, No Polydipsia, No Temperature Intolerance [facility] Past Medical History Medical History Anemia Arthritis Asthma exacerbation Asthma-COPD overlap syndrome Back pain Bronchitis Chronic pain syndrome Complex regional pain syndrome i of left lower limb Cough Depression Diabetic neuropathy Diet-controlled diabetes mellitus Disc degeneration, lumbosacral Dizziness Elevated lactic acid level Essential hypertension Fibromyalgia Headache Headache, migraine History of COVID-19 Hypogammaglobulinemia Hypothyroidism Laryngotracheitis Low back pain Morbid obesity Nausea vomiting and diarrhea BABATUNDE (obstructive sleep apnea) Osteoporosis Pleuritic chest pain 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 Pulmonary embolism Sleep apnea Spondylosis of cervical spine 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 TIA (transient ischemic attack) Type 2 diabetes mellitus with unspecified complications Surgical History History of bariatric surgery History of cholecystectomy History of esophagogastroduodenoscopy (EGD) Hx of colonoscopy S/P total abdominal hysterectomy Family History Family History Mother Diabetes Stroke Family/Other Diabetes Father Diabetes Maternal Aunt Cancer Social History Social History 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 Members: Caregiver Housing: House Are you a primary memory care program director to a significant other at home: No Do you presently have visiting nurse or other home services: No Alcohol intake: never Patient Tobacco Use Status: Never used Tobacco Smoked in Last 30 Days: No e-Cigarette/Vaping Use: Never Used Second Hand Smoke Exposure: No Use of substances other than those prescribed or required for medical reasons: No Advance Directives: No Advance Directives Information Provided: Yes Advance Directives Date on File: 05/23/21 Patient : No service: No Current occupational status: unemployed and disabled Physical Exam ED Vital Signs: Vital Signs - 24 hr 05/16/23 05:10 Temperature 97.9 F Pulse Rate 88 Respiratory Rate 18 Blood Pressure 159/70 H Pulse Oximetry 98 Oxygen Delivery Method Room Air BMI result Body Mass Index 37.0 Const Other: Appearance: Alert. Oriented X3. No acute distress. Eyes: Pupils equal, round and reactive to light. ENT: Pharynx normal. Patient patient has marked veins on the right side of her face. Patient does not seem to be tender on palpation on the temples or the face. Bilateral ears and tympanic membranes within normal limits Neck: Normal inspection. Neck supple. No lymph nodes noted. No crepitus CVS: Normal heart rate and rhythm. Pulses normal. Normal S1 and S2 Respiratory: No respiratory distress. Breath sounds normal. No Wheezing. No rales Abdomen: Soft and nontender. No rigidity. No distention. Skin: Skin warm and dry. Normal skin color. Normal skin turgor. Extremities: No lower extremity edema. No Lacerations. No Rash Neuro: Oriented X 3. No motor deficit. No sensory deficit. Moving all extremities. No slurred speech. CN 2 through 12 grossly intact Psych: calm, cooperative, normal affect Course Course Course Narrative: -I discussed the physical exam with the patient, patient's ear canals are clear, non erythematous, no signs of infection -patient's CT scan of the head pending. -patient was given 1 dose of IM morphine. Medications Administered Discontinued Medications Generic Name Dose Route Start Last Admin Trade Name Freq PRN Reason Stop Dose Admin Benzonatate 100 mg 05/16/23 06:10 05/16/23 06:18 Benzonatate 100 Mg Capsule PO 05/16/23 06:11 100 mg ONCE ONE Administration Morphine Sulfate 4 mg 05/16/23 06:10 05/16/23 06:18 Morphine Sulfate 4 Mg/Ml Cartridge IM 05/16/23 06:11 4 mg ONCE ONE Administration Protocol Medical Decision Making Medical Decision Making MDM Narrative: -patient seems to be in a lot of discomfort. Admission being considered. -of patient's imaging pending. -my interpretation of chest x-ray: No infiltrates -talking more with the patient, patient states that her family has told her that her face is starting to change, looking more around/swollen and bigger veins are popping out on the right side of her face. On this history, we will obtain as CT scan of the chest with contrast to rule out superior vena cava syndrome all Of patient's labs and imaging pending. sign out given to Dr. Frances Differential Diagnosis Differential Diagnoses: The differential diagnosis associated with the presentation includes (Otalgia, trigeminal neuralgia, cluster migraines, TMJ disorder, superior vena cava syndrome) Admission/Observation Consideration of admission/observation: Escalation of care including admission/observation considered Independent Interpretation I performed an independent interpretation of an: Plain X-Ray Radiology Impression Discussion of test interpretation with radiology: I have reviewed the radiologist's reading. Radiologist Impression: FINDINGS: Lung volumes are symmetric. No focal consolidation is seen. No evidence of pneumothorax, pleural effusion, or pulmonary edema. Cardiac silhouette appears near the upper limits of normal in size. No acute osseous findings are seen. XR/XR chest 1V IMPRESSION: No acute cardiopulmonary findings. ? Discharge Plan Discharge Clinical Impression: Otalgia of both ears Patient Disposition: Still a Patient Prescriptions: No Action ondansetron 4 mg tablet,disintegrating 4 mg PO TID PRN (Reason: nausea and vomiting) 5 Days Qty: 20 0RF Galzin 50 mg (zinc) capsule 100 mg PO DAILY 30 Days Qty: 60 1RF sucralfate 1 gram tablet 1 g PO TID PRN (Reason: gastritis ) 14 Days Qty: 42 0RF gabapentin 300 mg capsule 600 mg PO BID Qty: 120 11RF amoxicillin-pot clavulanate 875-125 mg tablet 1 tab PO BID 10 Days Qty: 20 0RF cefpodoxime 200 mg tablet 200 mg PO BID Qty: 20 0RF Rx Instructions: must administer with a meal/food montelukast 10 mg tablet 10 mg PO BEDTIME Eliquis 2.5 mg Tablet 2.5 mg PO BID Qty: 180 0RF acetaminophen [Tylenol Extra Strength] 500 mg tablet 500 mg PO Q6H PRN (Reason: pain or fever) Qty: 20 0RF dicyclomine 20 mg tablet 20 mg PO QID PRN (Reason: abdominal pain) Qty: 20 0RF escitalopram oxalate 10 mg tablet 1 tab PO DAILY zolpidem 10 mg tablet 1 tab PO BEDTIME valsartan 160 mg tablet 1 tab PO DAILY cholecalciferol (vitamin D3) 25 mcg (1,000 unit) tablet 1 tab PO DAILY doxycycline monohydrate [Monodox] 100 mg capsule 100 mg PO BID Qty: 14 0RF cefdinir 300 mg capsule 300 mg PO BID 3 Days Qty: 6 0RF cyanocobalamin (vitamin B-12) 1,000 mcg tablet 1,000 mcg PO DAILY albuterol sulfate 2.5 mg /3 mL (0.083 %) solution for nebulization 2.5 mg inhalation Q4H PRN (Reason: shortness of breath or wheezing) 30 Days Qty: 360 11RF (DME) FreeStyle Lite Strips Strip See Rx Instructions .ROUTE BID Qty: 10 Rx Instructions: As directed betamethasone dipropionate 0.05 % lotion 1 appl topical BID calcipotriene 0.005 % ointment topical prednisone 10 mg tablet 10 mg PO terbinafine HCl 250 mg tablet 250 mg PO DAILY hydroxyzine HCl 25 mg tablet 25 mg PO TID PRN (Reason: itch) fluocinonide 0.05 % ointment topical BID PRN alclometasone 0.05 % cream topical omeprazole 20 mg capsule,delayed release(DR/EC) 20 mg PO DAILY fluticasone propionate 50 mcg/actuation spray,suspension 0 mcg intranasal DAILY ferrous sulfate 325 mg (65 mg iron) tablet 325 mg PO DAILY quetiapine 300 mg tablet 300 mg PO BEDTIME Bevespi Aerosphere 9-4.8 mcg HFA aerosol inhaler 2 puff inhalation Q12H 30 Days Qty: 10.7 11RF benzonatate 200 mg capsule 200 mg PO BID PRN (Reason: cough) 30 Days Qty: 60 6RF (DME) nebulizers Misc See Rx Instructions .ROUTE Rx Instructions: As directed Breztri Aerosphere 160-9-4.8 mcg/actuation HFA aerosol inhaler 2 inh inhalation BID 30 Days Qty: 10.7 11RF benzonatate 200 mg capsule 200 mg PO BID PRN (Reason: cough) 30 Days Qty: 60 6RF naloxone 4 mg/actuation spray,non-aerosol 4 mg intranasal Q2M PRN (Reason: opioid overdose) 1 Days Qty: 2 2RF Rx Instructions: spray 1 dose into ONE nostril; alternate nostrils w each dose until help arrives oxycodone 5 mg tablet 5 mg PO TID PRN (Reason: pain) 30 Days Qty: 90 0RF Rx Instructions: Partial Fill upon patient request.
[2023-05-16 07:22] LABS: MANUAL DIFF FLAG NO
[2023-05-16 07:37] LABS: Alanine Aminotransferase 30 U/L (0-31); Albumin Level 3.2 g/dL (3.5-5.0); Alkaline Phosphatase 54 U/L (39-117); Anion Gap 11 (12-20); Aspartate Amino Transferase 26 U/L (5-31); Bilirubin Direct < 0.2 mg/dL (0.0-0.5); Bilirubin Total 0.2 mg/dL (0.0-1.0); Blood Urea Nitrogen 15 mg/dL (9-16); Carbon Dioxide 25 mmol/L (22-29); Chloride 111 mmol/L (96-108); Creatinine Clr Calc Pharmacy 62.5; Estimated Glomerular Filt Rate > 60; Glucose Random 153 mg/dL (60-115); Potassium 4.5 mmol/L (3.3-5.1); Sodium 142 mmol/L (135-145); Total Protein 5.6 g/dL (6.5-8.0)
[2023-05-16 08:08] LABS: Erythrocyte Sedimentation Rate 29 MM/HR (0-20)
[2023-05-16 08:17] VITALS: BP 154/78; PULSE 84; RESP 18; TEMP 37; O2SAT 97
[2023-05-16 08:21] LABS: Basophils Percent Auto 0.3 % (0-2); Eosinophils Absolute Auto 0.1 X10*3/uL (0.0-0.4); Eosinophils Percent Auto 0.8 % (0-4); Hematocrit 28.2 % (37.0-47.0); Hemoglobin 8.3 g/dl (12.0-16.0); Imm Gran Abs Auto 0.12 X10*3/uL (0.00-0.03); Imm Gran Pct Auto 1.6 % (0.0-0.4); Lymphocytes Absolute Auto 1.2 X10*3/uL (1.2-4.9); Lymphocytes Percent Auto 15.5 % (20-40); Mean Corpuscular HGB Conc 29.4 g/dl (31.0-35.0); Mean Corpuscular Hemoglobin 24.8 pg (27.0-33.0); Mean Corpuscular Volume 84.2 fL (80.0-98.0); Mean Platelet Volume 8.6 fL (9.4-12.3); Monocytes Absolute Auto 0.4 X10*3/uL (0.1-1.2); Monocytes Percent Auto 5.3 % (2-11); Neutrophils Absolute Auto 5.8 x10*3/uL (2.0-8.3); Neutrophils Percent Auto 76.5 % (45-73); Platelet Count 231 X10*3/uL (160-400); Red Blood Count 3.35 X10*6/uL (4.20-5.50); Red Cell Distribution Width 19.6 % (11.0-16.0); White Blood Count 7.6 X10*3/uL (4.8-10.8)
[2023-05-16] MEDS: iohexoL 350 MG/ML 100 ML INFUS..BTL IV (08:54)
== END 2023-05-16 10:31 | disposition home or self-care (01) ==
PROVIDERS: Emergency Medicine; Emergency Provider Student in an Organized Health Care Education/Training Program; PCP Internal Medicine
DX: H92.03 Otalgia, bilateral (principal); R51.9 Headache, unspecified; M54.6 Pain in thoracic spine; R07.89 Other chest pain; Z79.899 Other long term (current) drug therapy
CPT/HCPCS: 36415; 70450; 71045; 71260; 80048; 80076; 85025; 85652; 86140; 99284; J2270; Q9967

== ENCOUNTER 2023-05-25 09:40 | Outpatient (AMB) | payer OTHER, SELFPAY ==
[2023-05-25 09:54] VITALS: BP 140/68; PULSE 88; RESP 16; O2SAT 98; BMI 38.1
--- NOTE | 2023-05-25 09:54 | A.OFFVIS_ITS ---
Intake Vital Signs 05/25/23 09:54 Height 4 ft 11 in Weight 188 lb 8 oz BMI 38.1 BP 140/68 H Blood Pressure Location Rt brachial Position Sitting Respiration 16 Pulse 88 Pulse Source Pulse Oximeter Pulse Oximetry (%) 98 Oxygen Delivery Method Room Air Intake Visit Reasons: Pill count Allergies No Known Allergies Allergy (Verified 05/25/23 09:54) HPI HPI Comments History of Present Illness Details Maye is a very pleasant 53 year old female who presents to the office today for follow up chronic pain and chronic opioid therapy management. Patient is prescribed oxycodone 5mg tabs, take one tablet three times daily. Patient arrived today with the expectation of having 78 pills, she presented 79 pills which were counted in the presence of two staff members and returned to the patient in the original prescription bottle. This demonstrates responsible attitude toward patient's opioid medications. Pain is reported today as 5/10 and last dose of pain medication was taken at 08:00 this morning. Pain is well managed on current opioid regimen with improvement in mobility and overall fun ctioning. Patient reports 3 days ago she fell down some stairs at home and has right sided pain in buttocks. She also has left back and hip pain for last couple of weeks that is worse with movement, walking, climbing stairs and sitting. Pain radiates into her left buttock and left thigh. She states PT attempted in the past but too painful to continue. Previously: She was suspended for 6 months because UDS demonstrated tramadol in her urine. She was admitted slightly earlier on the request of her PCP - she developed renal insufficiency and she was taking large doses of NSAIDs to help her pain. Her risk of Opioid was low.? When she come back from suspension her opioid risk will become moderate. 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 Pulmonary embolism Sleep apnea Spondylosis of cervical spine 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 TIA (transient ischemic attack) Type 2 diabetes mellitus with unspecified complications Surgical History History of bariatric surgery History of cholecystectomy History of esophagogastroduodenoscopy (EGD) Hx of colonoscopy S/P total abdominal hysterectomy Family History Mother Diabetes Stroke Family/Other Diabetes Father Diabetes Maternal Aunt Cancer Social History Household Members: Caregiver Housing: House Are you a primary pet care associate to a significant other at home: No Do you presently have visiting nurse or other home services: No Alcohol intake: never Patient Tobacco Use Status: Never used Tobacco e-Cigarette/Vaping Use: Never Used Second Hand Smoke Exposure: No Advance Directives Date on File: 05/23/21 service: No Current occupational status: unemployed and disabled Review of Systems Const All systems reviewed & are unremarkable except as noted in HPI and below Physical Exam Vital Signs: Last Vital Signs Pulse 88 05/25/23 09:54 Resp 16 05/25/23 09:54 BP 140/68 H 05/25/23 09:54 Pulse Ox 98 05/25/23 09:54 Oxygen Delivery Method Room Air 05/25/23 09:54 BMI result Body Mass Index 38.1 General: awake, alert, oriented. Answers questions appropriately. Fully engaged in examination. Skin: warm, dry, intact. bruising noted to right buttock HEENT: Normocephalic. Conjuntivae clear without exudate. Sclera non-icteric. Hearing intact. Cardiac: External chest normal in appearance. Respiratory: No signs of trauma. No signs of respiratory distress. No cough, audible wheezing or stridor. Abdomen: without gross distension. MS: No obvious swelling or deformities. Able to transition from sit to stand unassisted. Tenderness to palpation over left PSIS Arsenio positive on left SI Compression positive on left Gaenslen positive on left limited ROM left hip with increased pain on internal and external rotation Neurological: Oriented to person, place, time and situation. Thought process intact. ambulates with walker. Psychiatric: Appropriate mood and affect. Good judgment and insight. Assessment & Plan Assessment & Plan (1) Low back pain: Code(s): M54.5 - Low back pain (2) Disc degeneration, lumbosacral: Code(s): M51.37 - Other intervertebral disc degeneration, lumbosacral region (3) Spondylosis of lumbar joint: Code(s): M47.816 - Spondylosis without myelopathy or radiculopathy, lumbar region (4) Spondylosis of cervical spine: Code(s): M47.812 - Spondylosis without myelopathy or radiculopathy, cervical region (5) Osteoporosis: Code(s): M81.0 - Age-related osteoporosis without current pathological fracture (6) Sacroiliac joint dysfunction of left side: Code(s): M53.3 - Sacrococcygeal disorders, not elsewhere classified (7) Left hip pain: Code(s): M25.552 - Pain in left hip Natividad Villavicencio is a very pleasant 53 year old female who presents to the office today for follow up and refill of her opioid medications. C/O left lower back pain radiating into her left buttock and thigh. Significant tenderness to palpation over PSIS, provocative testing positive for left SI joint dysfunction. Will obtain left hip xray. Discussed options for treatment including diagnostic interventional testing, steroid injections, peripheral nerve stimulation with Sprint, RFA and more permanent neuromodulation. Will schedule for Fluoroscopy guided diagnostic Left SI joint injection with local anesthetic. Masspat was reviewed and without concerns. No obvious signs of diversion, abuse or misuse of the opioid medications. Will send in prescription for oxycodone 5mg TID with an advanced date of 06/20/2023 All questions and concerns have been answered and patient agrees with the plan. Follow up in 5 weeks for opioid medication management and refill. Follow up after injections, sooner if needed. Orders: Orders XR hip LT min 2V Today M25.552 - Pain in left hip Medications: Refilled oxycodone Partial Fill upon patient request. 5 mg PO TID 30 days PRN 90 tabs 0RF pain Coding Level of Care Code Est Pt Level 4 (22784) Diagnoses Low back pain M54.5 Disc degeneration, lumbosacral M51.37 Spondylosis of lumbar joint M47.816 Spondylosis of cervical spine M47.812 Osteoporosis M81.0 Sacroiliac joint dysfunction of left side M53.3 Left hip pain M25.552
== END 2023-05-25 10:04 | disposition home or self-care (01) ==
PROVIDERS: PCP Internal Medicine; Visit Provider Registered Nurse Emergency
DX: M54.50 Low back pain, unspecified (principal); M51.37 Other intervertebral disc degeneration, lumbosacral region; M47.816 Spondylosis without myelopathy or radiculopathy, lumbar region; M47.812 Spondylosis without myelopathy or radiculopathy, cervical region; M81.0 Age-related osteoporosis without current pathological fracture; M53.3 Sacrococcygeal disorders, not elsewhere classified; M25.552 Pain in left hip
CPT/HCPCS: 99214

== ENCOUNTER → 2023-05-25 09:40 | Outpatient (BNVA) | payer OTHER, SELFPAY | PROVIDERS: PCP Internal Medicine; Visit Provider Registered Nurse Emergency | DX: M54.42 Lumbago with sciatica, left side (principal); M51.37 Other intervertebral disc degeneration, lumbosacral region; M47.816 Spondylosis without myelopathy or radiculopathy, lumbar region; M47.812 Spondylosis without myelopathy or radiculopathy, cervical region; M53.3 Sacrococcygeal disorders, not elsewhere classified; M25.552 Pain in left hip; G90.522 Complex regional pain syndrome I of left lower limb; G89.4 Chronic pain syndrome; M81.0 Age-related osteoporosis without current pathological fracture; E11.40 Type 2 diabetes mellitus with diabetic neuropathy, unspecified; Z79.891 Long term (current) use of opiate analgesic | CPT/HCPCS: 99212 ==

== ENCOUNTER 2023-05-26 10:05 | Outpatient (REF) | payer OTHER, SELFPAY | END 2023-05-26 10:06 | disposition home or self-care (01) | LOC: HO.HAP 10:05 | PROVIDERS: Visit Provider Otolaryngology | DX: Z46.1 Encounter for fitting and adjustment of hearing aid (principal); H90.3 Sensorineural hearing loss, bilateral | CPT/HCPCS: 92591; V5275 ==

== ENCOUNTER 2023-05-26 11:07 | Outpatient (REF) | payer OTHER, SELFPAY ==
--- NOTE | ~2023-05-26 | XR_ITS ---
EXAMINATION: XR HIP, LEFT CLINICAL INFORMATION: Pain COMPARISON: Hip radiographs TECHNIQUE: Two views of the left hip. FINDINGS: No acute fracture or dislocation. Some serpiginous sclerosis is noted in the femoral head raising the suspicion for avascular necrosis, which could be better evaluated with MR hip. Soft tissues are unremarkable. XR/XR hip LT min 2V IMPRESSION: 1. Some serpiginous sclerosis is noted in the femoral head raising the suspicion for avascular necrosis, which could be better evaluated with MR hip.
== END 2023-05-26 11:08 | disposition home or self-care (01) ==
LOC: HO.XRAY 11:07
PROVIDERS: PCP Internal Medicine; Visit Provider Registered Nurse Emergency
DX: M25.552 Pain in left hip (principal)
CPT/HCPCS: 73502

== ENCOUNTER 2023-06-02 09:14 | Outpatient (REF) | payer OTHER, SELFPAY | END 2023-06-02 09:15 | disposition home or self-care (01) | LOC: HO.MDS 09:14 | PROVIDERS: Visit Provider Hospitalist | DX: D80.1 Nonfamilial hypogammaglobulinemia (principal) | CPT/HCPCS: 96365; 96366 ==

== ENCOUNTER 2023-06-09 14:52 | Emergency (ER) | payer OTHER, SELFPAY ==
--- NOTE | ~2023-06-09 | CT_ITS ---
EXAMINATION: CT ABDOMEN AND PELVIS WITHOUT CONTRAST CLINICAL INFORMATION: Right flank right lower quadrant pain COMPARISON: Ultrasound performed same day of the right upper quadrant. CT scan of the abdomen and pelvis with contrast September 2022 TECHNIQUE: Multidetector volumetric imaging was performed from the superior aspect of the liver through the pubic symphysis. Sagittal and coronal reformatted images were obtained on the technologist's workstation. This CT examination was performed using dose optimization techniques as appropriate, variously including the following: *Automated exposure control *Adjustment of mA and/or kV according to patient size (this includes techniques or standardized protocols for targeted exams where dose is matched to indication/reason for exam; i.e. extremities or head) *Use of iterative reconstruction technique DLP: 688 mGy-cm FINDINGS: LUNG BASES: The visualized lung bases are unremarkable. LIVER, GALLBLADDER, AND BILIARY TREE: The liver is normal in size, shape, and attenuation. No focal hepatic lesion or biliary ductal dilatation is present. Status post cholecystectomy with surgical clips noted. PANCREAS: Unremarkable. SPLEEN: Unremarkable. ADRENAL GLANDS: Unremarkable. KIDNEYS AND URETERS: Multiple renal cysts again noted bilaterally. No follow-up is necessary for for these. Tiny nonobstructing calculus in the upper pole of left kidney and right kidney measuring 1 mm. No hydronephrosis or hydroureter. BLADDER: Unremarkable. GASTROINTESTINAL TRACT: Postsurgical changes present within the stomach unchanged. Small bowel normal. Large bowel: Normal. Appendix normal. ABDOMINAL WALL: No significant hernia is appreciated. LYMPH NODES: Normal. VASCULAR: Unremarkable. PELVIC VISCERA: Status post hysterectomy. No mass. No free fluid. OSSEOUS STRUCTURES: Grade 1 degenerative anterior spondylolisthesis at L5-S1 with degenerative disc changes and bulging of the disc unchanged. CT/CT abdomen pelvis wo IV con IMPRESSION: 1. No acute abnormality. 2. Tiny nonobstructing bilateral renal calculi. 3. Status post cholecystectomy. 4. Postsurgical changes in the stomach. 5. Status post hysterectomy. 6. Grade 1 degenerative anterior spondylolisthesis at L5-S1 with degenerative disc changes and bulging of the disc unchanged. Fleischner guidelines were followed.
--- NOTE | ~2023-06-09 | US_ITS ---
EXAMINATION: US ABDOMEN LIMITED CLINICAL INFORMATION: Right upper quadrant pain right flank pain. COMPARISON: CT abdomen and pelvis from 09/13/2022 TECHNIQUE: Real-time imaging of the right upper quadrant abdominal viscera. FINDINGS: PANCREAS: Utilized portions of the pancreas are unremarkable, the tail is not well visualized. LIVER: Increased hepatic echogenicity suggesting hepatic steatosis. The liver is normal in size. The liver contour is normal. No focal hepatic lesion. There is no intrahepatic biliary duct dilatation seen. GALLBLADDER: Status post cholecystectomy. COMMON BILE DUCT: Normal in caliber measuring 0.6 cm in diameter. RIGHT KIDNEY: The right renal calculi the largest in the upper pole measuring 4 mm. Multiple right renal simple appearing cystic foci the largest in the upper pole measuring 1.3 cm, not requiring follow-up. No hydronephrosis. The kidney measures 9.6 cm in maximum dimension. FREE FLUID: None. US/US abdomen limited IMPRESSION: 1. Increased hepatic echogenicity suggesting hepatic steatosis. 2. Status post cholecystectomy. 3. Right-sided nephrolithiasis measuring up to 4 mm without hydronephrosis. 4. Multiple right renal simple appearing cystic foci the largest in the upper pole measuring 1.3 cm, not requiring follow-up.
[2023-06-09 15:28] VITALS: BP 118/66; PULSE 84; RESP 18; TEMP 37; O2SAT 97; BMI 36.6
--- NOTE | 2023-06-09 15:28 | ED_ITS ---
HPI - Abdominal Pain General Chief Complaint: Abdominal Pain Stated Complaint: right flank pain Time Seen by Provider: 06/09/23 16:59 Source: patient Mode of arrival: ambulatory Limitations: no limitations History of Present Illness HPI narrative: Patient comes to the emergency room complaining of right upper and lower quadrant pain and flank pain for 5 hours. Patient denies nausea vomiting or diarrhea. Denies fever chills, no URI or UTI symptoms Related Data Home Medications Medication Instructions Recorded Confirmed montelukast 10 mg tablet 10 mg PO BEDTIME 08/02/20 02/11/23 cyanocobalamin (vitamin B-12) 1,000 mcg PO DAILY 11/05/20 02/11/23 1,000 mcg tablet escitalopram oxalate 10 mg tablet 1 tab PO DAILY 08/21/22 02/11/23 zolpidem 10 mg tablet 1 tab PO BEDTIME 08/21/22 02/11/23 cholecalciferol (vitamin D3) 25 1 tab PO DAILY 11/28/22 02/11/23 mcg (1,000 unit) tablet valsartan 160 mg tablet 1 tab PO DAILY 11/28/22 02/11/23 quetiapine 300 mg tablet 300 mg PO BEDTIME 12/07/22 02/11/23 alclometasone 0.05 % topical cream appl topical 02/12/23 betamethasone dipropionate 0.05 % 1 appl topical BID 02/12/23 lotion blood sugar diagnostic (FreeStyle #10 ea 02/12/23 Lite Strips) calcipotriene 0.005 % topical topical 02/12/23 ointment ferrous sulfate 325 mg (65 mg 325 mg PO DAILY 02/12/23 iron) tablet fluocinonide 0.05 % topical topical BID PRN 02/12/23 ointment fluticasone propionate 50 0 mcg intranasal DAILY 02/12/23 mcg/actuation nasal spray,suspension hydroxyzine HCl 25 mg tablet 25 mg PO TID PRN itch 02/12/23 omeprazole 20 mg capsule,delayed 20 mg PO DAILY 02/12/23 release prednisone 10 mg tablet 10 mg PO 02/12/23 terbinafine HCl 250 mg tablet 250 mg PO DAILY 02/12/23 nebulizers 04/02/23 Previous Rx's Medication Instructions Recorded acetaminophen 500 mg tablet 500 mg PO Q6H PRN pain or fever 01/21/22 (Tylenol Extra Strength) #20 tabs dicyclomine 20 mg tablet 20 mg PO QID PRN abdominal pain 06/27/22 #20 tabs albuterol sulfate 2.5 mg/3 mL 2.5 mg (3 mL) inhalation Q4H PRN 09/08/22 (0.083 %) solution for nebulization shortness of breath or wheezing 30 days #360 mL ondansetron 4 mg disintegrating 4 mg PO TID PRN nausea and 11/27/22 tablet vomiting 5 days #20 tabs zinc acetate 50 mg (zinc) capsule 100 mg PO DAILY 30 days #60 caps 12/02/22 (Galzin) benzonatate 200 mg capsule 200 mg PO BID PRN cough 30 days 12/07/22 #60 caps glycopyrrolate 9 mcg-formoterol 2 puff inhalation Q12H 30 days 12/07/22 4.8 mcg HFA aerosol inhaler #10.7 grams (Bevespi [employer]) doxycycline monohydrate 100 mg 100 mg PO BID #14 caps 02/13/23 capsule (Monodox) sucralfate 1 gram tablet 1 g PO TID PRN gastritis 14 days 02/17/23 #42 tabs naloxone 4 mg/actuation nasal spray 4 mg intranasal Q2M PRN opioid 02/24/23 overdose 1 day #2 ea benzonatate 200 mg capsule 200 mg PO BID PRN cough 30 days 04/02/23 #60 caps budesonide 160 mcg-glycopyr 9 2 inh inhalation BID 30 days #10.7 04/02/23 mcg-formot 4.8 mcg/actuation HFA grams inhaler (Breztri Aerosphere) gabapentin 300 mg capsule 600 mg PO BID #120 caps 04/14/23 apixaban 2.5 mg tablet (Eliquis) 2.5 mg PO BID #180 tabs 04/17/23 cefdinir 300 mg capsule 300 mg PO BID 3 days #6 caps 04/19/23 amoxicillin 875 mg-potassium 1 tab PO BID 10 days #20 tabs 04/29/23 clavulanate 125 mg tablet cefpodoxime 200 mg tablet 200 mg PO BID #20 tabs 04/30/23 oxycodone 5 mg tablet 5 mg PO TID PRN pain 30 days #90 05/25/23 tabs immune glob,gamm(IgG) 10 %-pro-IgA 40 g IV Q4W #400 mL 05/28/23 0 to 50 mcg/mL intravenous solution (Privigen) acetaminophen 500 mg tablet 500 mg PO Q6H PRN pain #20 tabs 06/09/23 Allergies Allergy/AdvReac Type Severity Reaction Status Date / Time No Known Allergies Allergy Verified 05/25/23 09:54 Review of Systems Review of Systems Constitutional : No Weight loss, No Fever, No Chills, No Night Sweats, No Fatigue, No Malaise ENT/Mouth : No Hearing loss, No Ear Pain, No Nasal Congestion, No Sinus Pain, No Hoarseness, No sore throat, No Rhinorrhea, No Swallowing Difficulty Eyes: No Eye Pain, No Swelling, No Redness, No Foreign Body, No Discharge, No Vision Changes Cardiovascular : No Chest Pain, No SOB, No Dyspnea on Exertion, No Orthopnea, No Edema, No Palpitations Respiratory : No Cough, No Sputum, No Wheezing, No Smoke Exposure, No Dyspnea Gastrointestinal : No Nausea, No Vomiting, No Diarrhea, No Constipation, complaining of right lower quadrant pain, no melena Genitourinary : no irregular bleeding, No Dysuria, No Urinary Frequency, No H ematuria, No Urinary Incontinence, No Urgency, No Flank Pain, No Urinary Flow Changes, No Hesitancy Musculoskeletal : No joint pain, No Myalgias, No Joint Swelling Skin : No Skin Lesions, No rash Neuro : No Weakness, No Numbness, No Paresthesias, No Loss of Consciousness, No Dizziness, No Headache Psych : No Anxiety/Panic, No Depression, No SI/HI/AH/VH, No Social Issues, Heme/Lymph: No Bruising, No Bleeding,No Lymphadenopathy Endocrine : No Polyuria, No Polydipsia, No Temperature Intolerance PMFSH Past Medical History Medical History Anemia Arthritis Asthma exacerbation Asthma-COPD overlap syndrome Back pain Bronchitis Chronic pain syndrome Complex regional pain syndrome i of left lower limb Cough Depression Diabetic neuropathy Diet-controlled diabetes mellitus Disc degeneration, lumbosacral Dizziness Elevated lactic acid level Essential hypertension Fibromyalgia Headache Headache, migraine History of COVID-19 Hypogammaglobulinemia Hypothyroidism Laryngotracheitis Low back pain Morbid obesity Nausea vomiting and diarrhea BABATUNDE (obstructive sleep apnea) Osteoporosis Pleuritic chest pain 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 Pulmonary embolism Sleep apnea Spondylosis of cervical spine 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 TIA (transient ischemic attack) Type 2 diabetes mellitus with unspecified complications Surgical History History of bariatric surgery History of cholecystectomy History of esophagogastroduodenoscopy (EGD) Hx of colonoscopy S/P total abdominal hysterectomy Family History Family History Mother Diabetes Stroke Family/Other Diabetes Father Diabetes Maternal Aunt Cancer Social History Social History Household Members: Caregiver Housing: House Are you a primary campground caretaker to a significant other at home: No Do you presently have visiting nurse or other home services: No Alcohol intake: never Patient Tobacco Use Status: Never used Tobacco e-Cigarette/Vaping Use: Never Used Second Hand Smoke Exposure: No Advance Directives: No Advance Directives Information Provided: No Advance Directives Date on File: 05/23/21 service: No Current occupational status: unemployed and disabled Physical Exam ED Vital Signs: Vital Signs - 24 hr 06/09/23 15:28 06/09/23 16:58 06/09/23 18:00 Temperature 98.6 F 98.3 F 98.5 F Pulse Rate 84 71 71 Respiratory Rate 18 16 16 Blood Pressure 118/66 153/75 H 152/83 H Pulse Oximetry 97 98 98 Oxygen Delivery Method Room Air Room Air Room Air 06/09/23 19:34 Temperature 98.7 F Pulse Rate 76 Respiratory Rate 16 Blood Pressure 141/67 H Pulse Oximetry 98 Oxygen Delivery Method Room Air BMI result Body Mass Index 36.6 Const Other: Appearance: Alert. Oriented X3. No acute distress. Eyes: Pupils equal, round and reactive to light. ENT: Pharynx normal. Neck: Normal inspection. Neck supple. No lymph nodes noted. No crepitus CVS: Normal heart rate and rhythm. Pulses normal. Normal S1 and S2 Respiratory: No respiratory distress. Breath sounds normal. No Wheezing. No rales Abdomen: Soft, on deep palpation patient does not seem to have any tenderness in the right upper or lower quadrant, no flank pain, No rigidity. No distention. Skin: Skin warm and dry. Normal skin color. Normal skin turgor. Extremities: No lower extremity edema. No Lacerations. No Rash Neuro: Oriented X 3. No motor deficit. No sensory deficit. Moving all extremities. No slurred speech. CN 2 through 12 grossly intact Psych: calm, cooperative, normal affect Course Course Course Narrative: RME - 53 y/o Thai speaking female with history of asthma/COPD, obesity s/p gastric bypass, migraines, gastritis, bronchitis, constipation, HTN, anemia, TIA, fibromyalgia who presents to the ER for evaluation of acute onset of RUQ pain that started at noon today. +nausea but no vomiting or diarrhea. +dysuria, no hematuria. Pain is reported 10/10 in triage. +RUQ tenderness on exam w/ guarding. Plan: labs and RUQ U/S Medical Decision Making Medical Decision Making MDM Narrative: -patient was given 1 dose of IM morphine. -interpretation of CT scan, no obstruction, no air-fluid levels -patient overall feeling better, no nausea vomiting diarrhea. -patient likely having musculoskeletal pain -my interpretation of labs, patient's creatinine 1.48, nearly normal, p.o. fluids were encouraged. Urinalysis negative Differential Diagnosis Differential Diagnoses: The differential diagnosis associated with the presentation includes (Musculoskeletal pain, kidney stone, obstruction) Admission/Observation Consideration of admission/observation: Escalation of care including admission/observation considered (Initially, patient complaining of abdominal pain, admission considered.) Lab Data MDM Lab Attestation statement: I reviewed the patient's lab results. 06/09/23 16:11 06/09/23 16:11 Labs: Lab Results 06/09/23 06/09/23 06/09/23 Range/Units 16:11 16:11 19:37 WBC 8.3 (4.8-10.8) X10*3/uL RBC 4.08 L D (4.20-5.50) X10*6/uL Hgb 10.0 L D (12.0-16.0) g/dl Hct 34.2 L D (37.0-47.0) % MCV 83.8 (80.0-98.0) fL MCH 24.5 L (27.0-33.0) pg MCHC 29.2 L (31.0-35.0) g/dl RDW 17.1 H (11.0-16.0) % Plt Count 381 D (160-400) X10*3/uL MPV 9.0 L (9.4-12.3) fL Immature Gran % (Auto) 0.6 H (0.0-0.4) % Neut % (Auto) 62.1 (45-73) % Lymph % (Auto) 26.4 (20-40) % [place] % (Auto) 7.8 (2-11) % Eos % (Auto) 2.7 (0-4) % Baso % (Auto) 0.4 (0-2) % Lymph # (Auto) 2.2 (1.2-4.9) X10*3/uL [place] # (Auto) 0.7 (0.1-1.2) X10*3/uL Eos # (Auto) 0.2 (0.0-0.4) X10*3/uL Baso # (Auto) 0.0 (0.0-0.2) X10*3/uL Abs Immat Gran (auto) 0.05 H (0.00-0.03) X10*3/uL Absolute Neuts (auto) 5.2 (2.0-8.3) x10*3/uL Absolute Nucleated RBC 0.000 (0.0-0.012) X10*3/uL Nucleated RBC % (auto) 0.0 (0.0-0.2) /100WBC Sodium 138 (135-145) mmol/L Potassium 4.2 (3.3-5.1) mmol/L Chloride 106 (96-108) mmol/L Carbon Dioxide 25 (22-29) mmol/L Anion Gap 11 L (12-20) BUN 24 H (9-16) mg/dL Creatinine 1.48 H (0.5-1.4) mg/dL Estim Creat Clear Calc 38.6 Estimated GFR 37 Random Glucose 74 (60-115) mg/dL Calcium 10.0 D (8.4-10.2) mg/dL Magnesium 2.1 (1.6-2.6) mg/dL Total Bilirubin 0.2 (0.0-1.0) mg/dL Direct Bilirubin < 0.2 (0.0-0.5) mg/dL AST 21 (5-31) U/L ALT 15 (0-31) U/L Alkaline Phosphatase 96 (39-117) U/L Total Protein 7.1 (6.5-8.0) g/dL Albumin 3.6 (3.5-5.0) g/dL Urine Color Yellow Urine Appearance Clear Urine pH 5.5 (5.0-9.0) Ur Specific [place] 1.025 (1.005-1.025) Urine Protein Negative (Neg-Trace) mg/dL Urine Glucose (UA) Negative (Negative) mg/dL Urine Ketones Negative (Negative) mg/dL Urine Blood Negative (Negative) Urine Nitrite Negative (Negative) Ur Leukocyte Esterase Small (1+) H (Negative) Urine RBC 0-2 (0-2) /HPF Urine WBC 21-50 H (0-5) /HPF Ur Squamous Epith Cells 6-10 (0-2) /HPF Urine Bacteria None Seen (None Seen) Hyaline Casts 3-5 (0-2) /LPF Independent Interpretation I performed an independent interpretation of an: CT Scan Radiology Impression Discussion of test interpretation with radiology: I have reviewed the radiologist's reading. Radiologist Impression: FINDINGS: LUNG BASES: The visualized lung bases are unremarkable. LIVER, GALLBLADDER, AND BILIARY TREE: The liver is normal in size, shape, and attenuation. No focal hepatic lesion or biliary ductal dilatation is present. Status post cholecystectomy with surgical clips noted. PANCREAS: Unremarkable. SPLEEN: Unremarkable. ADRENAL GLANDS: Unremarkable. KIDNEYS AND URETERS: Multiple renal cysts again noted bilaterally. No follow-up is necessary for for these. Tiny nonobstructing calculus in the upper pole of left kidney and right kidney measuring 1 mm. No hydronephrosis or hydroureter. BLADDER: Unremarkable. GASTROINTESTINAL TRACT: Postsurgical changes present within the stomach unchanged. Small bowel normal. Large bowel: Normal. Appendix normal. ABDOMINAL WALL: No significant hernia is appreciated. LYMPH NODES: Normal. VASCULAR: Unremarkable. PELVIC VISCERA: Status post hysterectomy. No mass. No free fluid. OSSEOUS STRUCTURES: Grade 1 degenerative anterior spondylolisthesis at L5-S1 with degenerative disc changes and bulging of the disc unchanged. CT/CT abdomen pelvis wo IV con IMPRESSION: 1. No acute abnormality. 2. Tiny nonobstructing bilateral renal calculi. 3. Status post cholecystectomy. 4. Postsurgical changes in the stomach. 5. Status post hysterectomy. 6. Grade 1 degenerative anterior spondylolisthesis at L5-S1 with degenerative disc changes and bulging of the disc unchanged. Fleischner guidelines were followed. FINDINGS: PANCREAS: Utilized portions of the pancreas are unremarkable, the tail is not well visualized. LIVER: Increased hepatic echogenicity suggesting hepatic steatosis. The liver is normal in size. The liver contour is normal. No focal hepatic lesion. There is no intrahepatic biliary duct dilatation seen. GALLBLADDER: Status post cholecystectomy. COMMON BILE DUCT: Normal in caliber measuring 0.6 cm in diameter. RIGHT KIDNEY: The right renal calculi the largest in the upper pole measuring 4 mm. Multiple right renal simple appearing cystic foci the largest in the upper pole measuring 1.3 cm, not requiring follow-up. No hydronephrosis. The kidney measures 9.6 cm in maximum dimension. FREE FLUID: None. US/US abdomen limited IMPRESSION: 1.? Increased hepatic echogenicity suggesting hepatic steatosis. 2.? Status post cholecystectomy. 3.? Right-sided nephrolithiasis measuring up to 4 mm without hydronephrosis. 4.? Multiple right renal simple appearing cystic foci the largest in the upper pole measuring 1.3 cm, not requiring follow-up. ? Medications Administered Discontinued Medications Generic Name Dose Route Start Last Admin Trade Name Freq PRN Reason Stop Dose Admin Morphine Sulfate 4 mg 06/09/23 17:19 06/09/23 18:03 Morphine Sulfate 4 Mg/Ml Cartridge IM 06/09/23 17:20 4 mg ONCE ONE Administration Protocol Discharge Plan Discharge Clinical Impression: Abdominal pain, Musculoskeletal pain Patient Disposition: Home, Self-Care Instructions: Acute Abdominal Pain (ED) Additional Instructions: Please follow-up with your primary care physician tomorrow. If you have any worsening or new symptoms, please return to the emergency room or call 911 Prescriptions: New acetaminophen 500 mg tablet 500 mg PO Q6H PRN (Reason: pain) Qty: 20 0RF No Action ondansetron 4 mg tablet,disintegrating 4 mg PO TID PRN (Reason: nausea and vomiting) 5 Days Qty: 20 0RF Galzin 50 mg (zinc) capsule 100 mg PO DAILY 30 Days Qty: 60 1RF sucralfate 1 gram tablet 1 g PO TID PRN (Reason: gastritis ) 14 Days Qty: 42 0RF gabapentin 300 mg capsule 600 mg PO BID Qty: 120 11RF amoxicillin-pot clavulanate 875-125 mg tablet 1 tab PO BID 10 Days Qty: 20 0RF cefpodoxime 200 mg tablet 200 mg PO BID Qty: 20 0RF Rx Instructions: must administer with a meal/food Privigen 10 % solution 40 g IV Q4W Qty: 400 11RF montelukast 10 mg tablet 10 mg PO BEDTIME Eliquis 2.5 mg Tablet 2.5 mg PO BID Qty: 180 0RF acetaminophen [Tylenol Extra Strength] 500 mg tablet 500 mg PO Q6H PRN (Reason: pain or fever) Qty: 20 0RF dicyclomine 20 mg tablet 20 mg PO QID PRN (Reason: abdominal pain) Qty: 20 0RF escitalopram oxalate 10 mg tablet 1 tab PO DAILY zolpidem 10 mg tablet 1 tab PO BEDTIME valsartan 160 mg tablet 1 tab PO DAILY cholecalciferol (vitamin D3) 25 mcg (1,000 unit) tablet 1 tab PO DAILY doxycycline monohydrate [Monodox] 100 mg capsule 100 mg PO BID Qty: 14 0RF cefdinir 300 mg capsule 300 mg PO BID 3 Days Qty: 6 0RF cyanocobalamin (vitamin B-12) 1,000 mcg tablet 1,000 mcg PO DAILY albuterol sulfate 2.5 mg /3 mL (0.083 %) solution for nebulization 2.5 mg inhalation Q4H PRN (Reason: shortness of breath or wheezing) 30 Days Qty: 360 11RF (DME) FreeStyle Lite Strips Strip See Rx Instructions .ROUTE BID Qty: 10 Rx Instructions: As directed betamethasone dipropionate 0.05 % lotion 1 appl topical BID calcipotriene 0.005 % ointment topical prednisone 10 mg tablet 10 mg PO terbinafine HCl 250 mg tablet 250 mg PO DAILY hydroxyzine HCl 25 mg tablet 25 mg PO TID PRN (Reason: itch) fluocinonide 0.05 % ointment topical BID PRN alclometasone 0.05 % cream topical omeprazole 20 mg capsule,delayed release(DR/EC) 20 mg PO DAILY fluticasone propionate 50 mcg/actuation spray,suspension 0 mcg intranasal DAILY ferrous sulfate 325 mg (65 mg iron) tablet 325 mg PO DAILY quetiapine 300 mg tablet 300 mg PO BEDTIME Bevespi Aerosphere 9-4.8 mcg HFA aerosol inhaler 2 puff inhalation Q12H 30 Days Qty: 10.7 11RF benzonatate 200 mg capsule 200 mg PO BID PRN (Reason: cough) 30 Days Qty: 60 6RF (DME) nebulizers Misc See Rx Instructions .ROUTE Rx Instructions: As directed Breztri Aerosphere 160-9-4.8 mcg/actuation HFA aerosol inhaler 2 inh inhalation BID 30 Days Qty: 10.7 11RF benzonatate 200 mg capsule 200 mg PO BID PRN (Reason: cough) 30 Days Qty: 60 6RF naloxone 4 mg/actuation spray,non-aerosol 4 mg intranasal Q2M PRN (Reason: opioid overdose) 1 Days Qty: 2 2RF Rx Instructions: spray 1 dose into ONE nostril; alternate nostrils w each dose until help arri ves oxycodone 5 mg tablet 5 mg PO TID PRN (Reason: pain) 30 Days Qty: 90 0RF Rx Instructions: Partial Fill upon patient request.
[2023-06-09 16:23] LABS: MANUAL DIFF FLAG NO
[2023-06-09 16:34] LABS: Basophils Percent Auto 0.4 % (0-2); Eosinophils Absolute Auto 0.2 X10*3/uL (0.0-0.4); Eosinophils Percent Auto 2.7 % (0-4); Hematocrit 34.2 % (37.0-47.0); Imm Gran Abs Auto 0.05 X10*3/uL (0.00-0.03); Imm Gran Pct Auto 0.6 % (0.0-0.4); Lymphocytes Absolute Auto 2.2 X10*3/uL (1.2-4.9); Lymphocytes Percent Auto 26.4 % (20-40); Mean Corpuscular HGB Conc 29.2 g/dl (31.0-35.0); Mean Corpuscular Hemoglobin 24.5 pg (27.0-33.0); Mean Corpuscular Volume 83.8 fL (80.0-98.0); Monocytes Absolute Auto 0.7 X10*3/uL (0.1-1.2); Monocytes Percent Auto 7.8 % (2-11); Neutrophils Absolute Auto 5.2 x10*3/uL (2.0-8.3); Neutrophils Percent Auto 62.1 % (45-73); Platelet Count 381 X10*3/uL (160-400); Red Blood Count 4.08 X10*6/uL (4.20-5.50); Red Cell Distribution Width 17.1 % (11.0-16.0); White Blood Count 8.3 X10*3/uL (4.8-10.8)
[2023-06-09 16:58] VITALS: BP 153/75; PULSE 71; RESP 16; TEMP 36.8; O2SAT 98
[2023-06-09 17:00] LABS: Alanine Aminotransferase 15 U/L (0-31); Albumin Level 3.6 g/dL (3.5-5.0); Alkaline Phosphatase 96 U/L (39-117); Anion Gap 11 (12-20); Aspartate Amino Transferase 21 U/L (5-31); Bilirubin Direct < 0.2 mg/dL (0.0-0.5); Bilirubin Total 0.2 mg/dL (0.0-1.0); Blood Urea Nitrogen 24 mg/dL (9-16); Carbon Dioxide 25 mmol/L (22-29); Chloride 106 mmol/L (96-108); Creatinine Clr Calc Pharmacy 38.6; Estimated Glomerular Filt Rate 37; Glucose Random 74 mg/dL (60-115); Magnesium 2.1 mg/dL (1.6-2.6); Potassium 4.2 mmol/L (3.3-5.1); Sodium 138 mmol/L (135-145); Total Protein 7.1 g/dL (6.5-8.0)
[2023-06-09 18:00] VITALS: BP 152/83; PULSE 71; RESP 16; TEMP 36.9; O2SAT 98
[2023-06-09] MEDS: Morphine Sulfate 4 MG/ML CARTRIDGE IM (18:03)
[2023-06-09 19:34] VITALS: BP 141/67; PULSE 76; RESP 16; TEMP 37.1; O2SAT 98
--- NOTE | 2023-06-09 19:37 | MHC.EDTECH ---
PATIENT URINE SAMPLE COLLECTED AND SENT TO LAB ,VITALS SIGN TAKEN .
--- NOTE | 2023-06-09 19:54 | PC.NURSE ---
This resume writer assumed care at 1900, pt reporting 06/10 in constant RLQ pain radiating to right flank, reporting some relief with morphine. Pt reports burning with urination. VSS. [email or web address]
[2023-06-09 19:55] LABS: Appearance Urine Clear; Color Urine Yellow; Glucose Urine UA Negative (Negative); Leukocyte Esterase Urine Small (1+) (Negative); Nitrite Urine Negative (Negative); PH 5.5 (5.0-9.0); Specific Gravity - Urine 1.025 (1.005-1.025); UMIC TRIGGER UACC YES; Urine Blood Negative (Negative); Urine Ketones Negative (Negative); Urine Protein Negative (Neg-Trace)
[2023-06-09 20:04] LABS: Bacteria Urine None Seen (None Seen); RBC Urine 0-2 /HPF (0-2); UACC Culture Trigger YES; WBC Urine 21-50 /HPF (0-5)
== END 2023-06-09 20:40 | disposition home or self-care (01) ==
PROVIDERS: Physician Assistant; Emergency Provider Emergency Medicine; PCP Internal Medicine
DX: M79.10 Myalgia, unspecified site (principal); R10.2 Pelvic and perineal pain; R30.0 Dysuria; R10.30 Lower abdominal pain, unspecified; Z79.899 Other long term (current) drug therapy
CPT/HCPCS: 36415; 74176; 76705; 80048; 80076; 81001; 81003; 83735; 85025; 87086; 96372; 99284; J2270

== ENCOUNTER 2023-06-14 10:01 | Emergency (ER) | payer OTHER, SELFPAY ==
--- NOTE | ~2023-06-14 | CT_ITS ---
EXAMINATION: CT ABDOMEN AND PELVIS WITHOUT CONTRAST CLINICAL INFORMATION: Right flank pain. Acute kidney injury. COMPARISON: Multiple priors, most recently 06/09/2023 TECHNIQUE: Multidetector volumetric imaging was performed from the superior aspect of the liver through the pubic symphysis. Sagittal and coronal reformatted images were obtained on the technologist's workstation. This CT examination was performed using dose optimization techniques as appropriate, variously including the following: *Automated exposure control *Adjustment of mA and/or kV according to patient size (this includes techniques or standardized protocols for targeted exams where dose is matched to indication/reason for exam; i.e. extremities or head) *Use of iterative reconstruction technique DLP: 737 mGy-cm FINDINGS: LUNG BASES: The visualized lung bases are unremarkable. LIVER, GALLBLADDER, AND BILIARY TREE: The liver is normal in size, shape, and attenuation. No focal hepatic lesion or biliary ductal dilatation is present. Cholecystectomy. PANCREAS: Unremarkable. SPLEEN: Unremarkable. ADRENAL GLANDS: Unremarkable. KIDNEYS AND URETERS: The kidneys are normal in size, shape, and attenuation. No hydronephrosis, or hydroureter. There is a 1 mm nonobstructive calculus in the upper pole of left kidney and a punctate nonobstructive calculus in the upper pole of the right kidney.. Bilateral simple fluid attenuating renal cysts redemonstrated, previously characterized. No follow-up imaging recommended. No perinephric stranding. BLADDER: Unremarkable. GASTROINTESTINAL TRACT: Smitha-en-Y gastrojejunostomy. No intestinal obstruction or inflammation. There are a few scattered colonic diverticula. No evidence of diverticulitis. Normal appendix. ABDOMINAL WALL: No significant hernia is appreciated. LYMPH NODES: Normal. VASCULAR: Unremarkable. PELVIC VISCERA: Hysterectomy. No adnexal abnormalities. OSSEOUS STRUCTURES: No acute or suspicious osseous abnormalities. Intraosseous hemangioma at L4. CT/CT abdomen pelvis wo IV con IMPRESSION: * No acute findings within the abdomen or pelvis to explain the patient's symptomatology. * Bilateral nonobstructive intrarenal calculi. * Smitha-en-Y gastrojejunostomy. * There are a few scattered colonic diverticula without evidence of diverticulitis. * Cholecystectomy and hysterectomy.
[2023-06-14 10:07] VITALS: BP 116/60; PULSE 89; RESP 16; TEMP 36.8; O2SAT 98; BMI 38.7
--- NOTE | 2023-06-14 13:31 | ED.GENADULT ---
HPI - General Adult General Chief complaint: General Medical Stated complaint: pain r side of body Time Seen by Provider: 06/14/23 13:13 Source: patient and park interpreter Mode of arrival: ambulatory History of Present Illness HPI narrative: 53-year-old female with known history of renal colic presents with worsening right flank pain that radiates into her right groin since last night that she says was associated with nausea and an episode of vomiting and she reports chills but no fevers. She does report some dysuria and states that she takes oxycodone at home for chronic back pain. Related Data Home Medications Medication Instructions Recorded Confirmed montelukast 10 mg tablet 10 mg PO BEDTIME 08/02/20 02/11/23 cyanocobalamin (vitamin B-12) 1,000 mcg PO DAILY 11/05/20 02/11/23 1,000 mcg tablet escitalopram oxalate 10 mg tablet 1 tab PO DAILY 08/21/22 02/11/23 zolpidem 10 mg tablet 1 tab PO BEDTIME 08/21/22 02/11/23 cholecalciferol (vitamin D3) 25 1 tab PO DAILY 11/28/22 02/11/23 mcg (1,000 unit) tablet valsartan 160 mg tablet 1 tab PO DAILY 11/28/22 02/11/23 quetiapine 300 mg tablet 300 mg PO BEDTIME 12/07/22 02/11/23 alclometasone 0.05 % topical cream appl topical 02/12/23 betamethasone dipropionate 0.05 % 1 appl topical BID 02/12/23 lotion blood sugar diagnostic (FreeStyle #10 ea 02/12/23 Lite Strips) calcipotriene 0.005 % topical topical 02/12/23 ointment ferrous sulfate 325 mg (65 mg 325 mg PO DAILY 02/12/23 iron) tablet fluocinonide 0.05 % topical topical BID PRN 02/12/23 ointment fluticasone propionate 50 0 mcg intranasal DAILY 02/12/23 mcg/actuation nasal spray,suspension hydroxyzine HCl 25 mg tablet 25 mg PO TID PRN itch 02/12/23 omeprazole 20 mg capsule,delayed 20 mg PO DAILY 02/12/23 release prednisone 10 mg tablet 10 mg PO 02/12/23 terbinafine HCl 250 mg tablet 250 mg PO DAILY 02/12/23 nebulizers 04/02/23 Previous Rx's Medication Instructions Recorded acetaminophen 500 mg tablet 500 mg PO Q6H PRN pain or fever 01/21/22 (Tylenol Extra Strength) #20 tabs dicyclomine 20 mg tablet 20 mg PO QID PRN abdominal pain 06/27/22 #20 tabs albuterol sulfate 2.5 mg/3 mL 2.5 mg (3 mL) inhalation Q4H PRN 09/08/22 (0.083 %) solution for nebulization shortness of breath or wheezing 30 days #360 mL ondansetron 4 mg disintegrating 4 mg PO TID PRN nausea and 11/27/22 tablet vomiting 5 days #20 tabs zinc acetate 50 mg (zinc) capsule 100 mg PO DAILY 30 days #60 caps 12/02/22 (Galzin) benzonatate 200 mg capsule 200 mg PO BID PRN cough 30 days 12/07/22 #60 caps glycopyrrolate 9 mcg-formoterol 2 puff inhalation Q12H 30 days 12/07/22 4.8 mcg HFA aerosol inhaler #10.7 grams (Bevespi Aerosphere) doxycycline monohydrate 100 mg 100 mg PO BID #14 caps 02/13/23 capsule (Monodox) sucralfate 1 gram tablet 1 g PO TID PRN gastritis 14 days 02/17/23 #42 tabs naloxone 4 mg/actuation nasal spray 4 mg intranasal Q2M PRN opioid 02/24/23 overdose 1 day #2 ea benzonatate 200 mg capsule 200 mg PO BID PRN cough 30 days 04/02/23 #60 caps budesonide 160 mcg-glycopyr 9 2 inh inhalation BID 30 days #10.7 04/02/23 mcg-formot 4.8 mcg/actuation HFA grams inhaler (Breztri Aerosphere) gabapentin 300 mg capsule 600 mg PO BID #120 caps 04/14/23 apixaban 2.5 mg tablet (Eliquis) 2.5 mg PO BID #180 tabs 04/17/23 cefdinir 300 mg capsule 300 mg PO BID 3 days #6 caps 04/19/23 amoxicillin 875 mg-potassium 1 tab PO BID 10 days #20 tabs 04/29/23 clavulanate 125 mg tablet cefpodoxime 200 mg tablet 200 mg PO BID #20 tabs 04/30/23 oxycodone 5 mg tablet 5 mg PO TID PRN pain 30 days #90 05/25/23 tabs immune glob,gamm(IgG) 10 %-pro-IgA 40 g IV Q4W #400 mL 05/28/23 0 to 50 mcg/mL intravenous solution (Privigen) acetaminophen 500 mg tablet 500 mg PO Q6H PRN pain #20 tabs 06/09/23 Allergies Allergy/AdvReac Type Severity Reaction Status Date / Time No Known Allergies Allergy Verified 05/25/23 09:54 Review of Systems Review of Systems: Pertinent positives and negatives as stated in HPI [facility] Past Medical History Source: nursing notes reviewed Medical History Anemia Arthritis Asthma exacerbation Asthma-COPD overlap syndrome Back pain Bronchitis Chronic pain syndrome Complex regional pain syndrome i of left lower limb Cough Depression Diabetic neuropathy Diet-controlled diabetes mellitus Disc degeneration, lumbosacral Dizziness Elevated lactic acid level Essential hypertension Fibromyalgia Headache Headache, migraine History of COVID-19 Hypogammaglobulinemia Hypothyroidism Laryngotracheitis Low back pain Morbid obesity Nausea vomiting and diarrhea BABATUNDE (obstructive sleep apnea) Osteoporosis Pleuritic chest pain 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 Pulmonary embolism Sleep apnea Spondylosis of cervical spine 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 TIA (transient ischemic attack) Type 2 diabetes mellitus with unspecified complications Surgical History History of bariatric surgery History of cholecystectomy History of esophagogastroduodenoscopy (EGD) Hx of colonoscopy S/P total abdominal hysterectomy Family History Family History Mother Diabetes Stroke Family/Other Diabetes Father Diabetes Maternal Aunt Cancer Social History Social History Household Members: Caregiver Housing: House Are you a primary prompt care rn to a significant other at home: No Do you presently have visiting nurse or other home services: No Alcohol intake: never Patient Tobacco Use Status: Never used Tobacco e-Cigarette/Vaping Use: Never Used Second Hand Smoke Exposure: No Advance Directives: No Advance Directives Information Provided: Yes Advance Directives Date on File: 05/23/21 service: No Current occupational status: unemployed and disabled Physical Exam ED Vital Signs: Vital Signs - 24 hr 06/14/23 10:07 Temperature 98.2 F Pulse Rate 89 Respiratory Rate 16 Blood Pressure 116/60 Pulse Oximetry 98 Oxygen Delivery Method Room Air BMI result Body Mass Index 38.7 VITAL SIGNS: Reviewed. GENERAL: Elevated BMI, Well developed, well nourished, in no acute distress. HEAD: Normocephalic/ttraumatic EYES: PERRLA, EOMI EARS: Ext canals without abnormality NOSE: Nares patent bilateral OROPHARYNX: no oral lesions noted, posterior pharynx clear NECK: Supple, no adenopathy LUNGS: Normal breath sounds. No adventitious sounds or accessory muscle use. SpO2<98> CARDIOVASCULAR: Regular rate and rhythm without noted murmurs, no JVD or lower extremity edema. ABDOMEN: Soft, non-tender, non-distended with bowel sounds. MUSCULOSKELETAL: No tenderness, deformities, or effusions noted on gross inspection. EXTREMITIES: No cyanosis, clubbing or edema. SKIN: Inspection of the skin reveals no rashes NEUROLOGIC: Alert and oriented x 4. Strength and sensation to light touch were grossly intact x 4. Medications Administered Discontinued Medications Generic Name Dose Route Start Last Admin Trade Name Freq PRN Reason Stop Dose Admin Lidocaine/Diphenhydr/Alum/Mg/Simeth 10 ml 06/14/23 13:33 06/14/23 13:55 Mag&Al/Sim/Diphenhyd/Lidocaine 10 Ml Oral.Susp PO 06/14/23 13:34 10 ml ONCE ONE Administration Protocol Medical Decision Making Medical Decision Making MDM Narrative: 53-year-old female with history and clinical presentation with additional medical information of being status post cholecystectomy and having known gastritis/stomach ulcer issues ,DDX: Constipation, renal colic, ureteral lithiasis, UTI, less likely pyelonephritis/pancreatitis. I reviewed patient's workup from 06/09, on the CT scan from that date there was a description nonobstructive renal calculi but patient did have an JF. I suspect patient may have renal colic, will obtain a urinalysis and provide her with some Magic mouthwash for GI cocktail given her known history of gastritis/ulcer. I reviewed the CT scan which is negative for appendicitis/renal calculi/SBO and otherwise my interpretation is in agreement with radiology's impression. The urinalysis is negative for evidence to suggest infection or hematuria. Patient is otherwise discharged home in my interpretation is that she has significant constipation secondary to chronic use of opioids. Differential Diagnosis Differential Diagnoses: The differential diagnosis associated with the presentation includes Please see the discussion above Admission/Observation Consideration of admission/observation: Escalation of care including admission/observation considered Please see the discussion above Lab Data MDM Lab Attestation statement: I reviewed the patient's lab results. Please see the discussion above Labs: Lab Results 06/14/23 Range/Units 14:31 Urine Color Yellow Urine Appearance Clear Urine pH 5.5 (5.0-9.0) Ur Specific [place] 1.020 (1.005-1.025) Urine Protein Negative (Neg-Trace) mg/dL Urine Glucose (UA) Negative (Negative) mg/dL Urine Ketones Negative (Negative) mg/dL Urine Blood Negative (Negative) Urine Nitrite Negative (Negative) Ur Leukocyte Esterase Trace H (Negative) Urine RBC 0-2 (0-2) /HPF Urine WBC 0-5 (0-5) /HPF Ur Squamous Epith Cells 0-2 (0-2) /HPF Urine Bacteria None Seen (None Seen) Hyaline Casts 0-2 (0-2) /LPF Radiology Impression Discussion of test interpretation with radiology: I have reviewed the radiologist's reading. Radiologist Impression: Please see the discussion above External Record Review External record reviewed: Outpatient record and Prior outpatient labs Chronic Conditions Patient?s care impacted by: Diabetes and Other Fibromyalgia Discharge Plan Discharge Clinical Impression: Constipation, Chronic prescription opiate use Patient Disposition: Home, Self-Care Instructions: Constipation (ED), High Fiber Diet (ED), Fleet Enema (ED) Additional Instructions: 1. Reanudar todos los medicamentos caseros seg?n lo prescrito. [place] examen de hoy no [place] demostrado helene?n c?lculo renal, apendicitis u obstrucci?n. 2. Es probable que bateman uso cr?ruth de oxicodona est? contribuyendo a un estre?imiento significativo que est? provocando molestias abdominales. Necesitar? usar MiraLax de venta [place] dos veces al d?a para comenzar a tener evacuaciones blandas diarias. 3. Isamar un seguimiento con el proveedor de atenci?n primaria ma?jim por la ma?jim llamando a la oficina. Regrese a la tierney de emergencias si los s?ntomas empeoran. 1. Resume all home medications as prescribed. Your workup today has not demonstrated any kidney stone, appendicitis, or obstruction. 2. It is likely that your chronic use of oxycodone is contributing to significant constipation which is resulting in your abdominal discomfort. You will need to use [id number] MiraLax twice a day to you began having soft daily bowel movements. 3. Please follow-up with primary care provider tomorrow morning by calling the office. Return to the ER for any worsening symptoms. Prescriptions: No Action ondansetron 4 mg tablet,disintegrating 4 mg PO TID PRN (Reason: nausea and vomiting) 5 Days Qty: 20 0RF Galzin 50 mg (zinc) capsule 100 mg PO DAILY 30 Days Qty: 60 1RF sucralfate 1 gram tablet 1 g PO TID PRN (Reason: gastritis ) 14 Days Qty: 42 0RF gabapentin 300 mg capsule 600 mg PO BID Qty: 120 11RF amoxicillin-pot clavulanate 875-125 mg tablet 1 tab PO BID 10 Days Qty: 20 0RF cefpodoxime 200 mg tablet 200 mg PO BID Qty: 20 0RF Rx Instructions: must administer with a meal/food Privigen 10 % solution 40 g IV Q4W Qty: 400 11RF montelukast 10 mg tablet 10 mg PO BEDTIME Eliquis 2.5 mg Tablet 2.5 mg PO BID Qty: 180 0RF acetaminophen [Tylenol Extra Strength] 500 mg tablet 500 mg PO Q6H PRN (Reason: pain or fever) Qty: 20 0RF dicyclomine 20 mg tablet 20 mg PO QID PRN (Reason: abdominal pain) Qty: 20 0RF escitalopram oxalate 10 mg tablet 1 tab PO DAILY zolpidem 10 mg tablet 1 tab PO BEDTIME valsartan 160 mg tablet 1 tab PO DAILY cholecalciferol (vitamin D3) 25 mcg (1,000 unit) tablet 1 tab PO DAILY doxycycline monohydrate [Monodox] 100 mg capsule 100 mg PO BID Qty: 14 0RF acetaminophen 500 mg tablet 500 mg PO Q6H PRN (Reason: pain) Qty: 20 0RF cefdinir 300 mg capsule 300 mg PO BID 3 Days Qty: 6 0RF cyanocobalamin (vitamin B-12) 1,000 mcg tablet 1,000 mcg PO DAILY albuterol sulfate 2.5 mg /3 mL (0.083 %) solution for nebulization 2.5 mg inhalation Q4H PRN (Reason: shortness of breath or wheezing) 30 Days Qty: 360 11RF (DME) FreeStyle Lite Strips Strip See Rx Instructions .ROUTE BID Qty: 10 Rx Instructions: As directed betamethasone dipropionate 0.05 % lotion 1 appl topical BID calcipotriene 0.005 % ointment topical prednisone 10 mg tablet 10 mg PO terbinafine HCl 250 mg tablet 250 mg PO DAILY hydroxyzine HCl 25 mg tablet 25 mg PO TID PRN (Reason: itch) fluocinonide 0.05 % ointment topical BID PRN alclometasone 0.05 % cream topical omeprazole 20 mg capsule,delayed release(DR/EC) 20 mg PO DAILY fluticasone propionate 50 mcg/actuation spray,suspension 0 mcg intranasal DAILY ferrous sulfate 325 mg (65 mg iron) tablet 325 mg PO DAILY quetiapine 300 mg tablet 300 mg PO BEDTIME Bevespi Aerosphere 9-4.8 mcg HFA aerosol inhaler 2 puff inhalation Q12H 30 Days Qty: 10.7 11RF benzonatate 200 mg capsule 200 mg PO BID PRN (Reason: cough) 30 Days Qty: 60 6RF (DME) nebulizers Misc See Rx Instructions .ROUTE Rx Instructions: As directed Breztri Aerosphere 160-9-4.8 mcg/actuation HFA aerosol inhaler 2 inh inhalation BID 30 Days Qty: 10.7 11RF benzonatate 200 mg capsule 200 mg PO BID PRN (Reason: cough) 30 Days Qty: 60 6RF naloxone 4 mg/actuation spray,non-aerosol 4 mg intranasal Q2M PRN (Reason: opioid overdose) 1 Days Qty: 2 2RF Rx Instructions: spray 1 dose into ONE nostril; alternate nostrils w each dose until help arrives oxycodone 5 mg tablet 5 mg PO TID PRN (Reason: pain) 30 Days Qty: 90 0RF Rx Instructions: Partial Fill upon patient request. Referrals: Claudia Villaotro MD [Primary Care Provider] - Print Language: Botswanan
[2023-06-14] MEDS: Mag&Al/Sim/Diphenhyd/Lidocaine 10 ML ORAL.SUSP PO (13:55)
--- NOTE | 2023-06-14 14:33 | MHC.EDTECH ---
Urine collected and sent
[2023-06-14 14:50] LABS: Appearance Urine Clear; Color Urine Yellow; Glucose Urine UA Negative (Negative); Leukocyte Esterase Urine Trace (Negative); Nitrite Urine Negative (Negative); PH 5.5 (5.0-9.0); UMIC TRIGGER UACC YES; Urine Blood Negative (Negative); Urine Ketones Negative (Negative); Urine Protein Negative (Neg-Trace)
[2023-06-14 15:14] LABS: Bacteria Urine None Seen (None Seen); Hyaline Casts Urine 0-2 /LPF (0-2); RBC Urine 0-2 /HPF (0-2); Squamous Epithelial Cell Urine 0-2 /HPF (0-2); WBC Urine 0-5 /HPF (0-5)
== END 2023-06-14 15:31 | disposition home or self-care (01) ==
PROVIDERS: Emergency Provider Student in an Organized Health Care Education/Training Program; PCP Internal Medicine
DX: K59.00 Constipation, unspecified (principal); G89.4 Chronic pain syndrome; M54.50 Low back pain, unspecified; Z79.01 Long term (current) use of anticoagulants; E11.9 Type 2 diabetes mellitus without complications; I10 Essential (primary) hypertension; E61.1 Iron deficiency; Z98.84 Bariatric surgery status; Z86.711 Personal history of pulmonary embolism; Z86.73 Personal history of transient ischemic attack (TIA), and cerebral infarction without residual deficits; Z79.891 Long term (current) use of opiate analgesic; Z79.899 Other long term (current) drug therapy
CPT/HCPCS: 74176; 81001; 99284

== ENCOUNTER 2023-06-29 09:29 | Outpatient (AMB) | payer OTHER, SELFPAY ==
[2023-06-29 09:42] VITALS: BP 122/68; PULSE 81; RESP 16; O2SAT 96; BMI 39.1
--- NOTE | 2023-06-29 09:42 | MHC.OFFVIS ---
Intake Vital Signs 06/29/23 09:42 Height 4 ft 10 in Weight 187 lb 2 oz BMI 39.1 BP 122/68 Blood Pressure Location Lt brachial Position Sitting Respiration 16 Pulse 81 Pulse Source Pulse Oximeter Pulse Oximetry (%) 96 Oxygen Delivery Method Room Air Intake Visit Reasons: PILL COUNT Allergies No Known Allergies Allergy (Verified 05/25/23 09:54) HPI HPI Comments History of Present Illness Details Maye is a very pleasant 53 year old female who presents to the office today for follow up chronic pain and chronic opioid therapy management. Patient is prescribed oxycodone 5mg tabs, take one tablet three times daily. Patient arrived today with the expectation of having 69 pills, she presented 72 pills which were counted in the presence of two staff members and returned to the patient in the original prescription bottle. This demonstrates responsible attitude toward patient's opioid medications. Pain is reported today as 4/10 and last dose of pain medication was taken at 09:00 this morning. Pain is well managed on current opioid regimen with improvement in mobility and overall functioning. She is scheduled for left SI joint injection next month. Patient with recent visit to the ER for RUQ abdominal pain. Today she states pain has resolved and she is feeling much better. Denies nausea, vomiting or constipation. Previously: She was suspended for 6 months because UDS demonstrated tramadol in her urine. She was admitted slightly earlier on the request of her PCP - she developed renal insufficiency and she was taking large doses of NSAIDs to help her pain. Her risk of Opioid was low.? When she come back from suspension her opioid risk will become moderate. [facility] Medical History Anemia Arthritis Asthma exacerbation Asthma-COPD overlap syndrome Back pain Bronchitis Chronic pain syndrome Complex regional pain syndrome i of left lower limb Cough Depression Diabetic neuropathy Diet-controlled diabetes mellitus Disc degeneration, lumbosacral Dizziness Elevated lactic acid level Essential hypertension Fibromyalgia Headache Headache, migraine History of COVID-19 Hypogammaglobulinemia Hypothyroidism Laryngotracheitis Low back pain Morbid obesity Nausea vomiting and diarrhea BABATUNDE (obstructive sleep apnea) Osteoporosis Pleuritic chest pain 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 Pulmonary embolism Sleep apnea Spondylosis of cervical spine 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 TIA (transient ischemic attack) Type 2 diabetes mellitus with unspecified complications Surgical History History of bariatric surgery History of cholecystectomy History of esophagogastroduodenoscopy (EGD) Hx of colonoscopy S/P total abdominal hysterectomy Family History Mother Diabetes Stroke Family/Other Diabetes Father Diabetes Maternal Aunt Cancer Social History Household Members: Caregiver Housing: House Are you a primary child care assistant to a significant other at home: No Do you presently have visiting nurse or other home services: No Alcohol intake: never Patient Tobacco Use Status: Never used Tobacco e-Cigarette/Vaping Use: Never Used Second Hand Smoke Exposure: No Advance Directives Date on File: 05/23/21 service: No Current occupational status: unemployed and disabled Review of Systems Const All systems reviewed & are unremarkable except as noted in HPI and below Physical Exam Vital Signs: Last Vital Signs Pulse 81 06/29/23 09:42 Resp 16 06/29/23 09:42 BP 122/68 06/29/23 09:42 Pulse Ox 96 06/29/23 09:42 Oxygen Delivery Method Room Air 06/29/23 09:42 BMI result Body Mass Index 39.1 General: awake, alert, oriented. Answers questions appropriately. Fully engaged in examination. Skin: warm, dry, intact. HEENT: Normocephalic. Hearing intact. Cardiac: External chest normal in appearance. Respiratory: No cough, audible wheezing or stridor. Abdomen: without gross distension. MS: No obvious swelling or deformities. Able to transition from sit to stand unassisted. Neurological: Oriented to person, place, time and situation. Thought process intact. ambulates with walker. Psychiatric: Appropriate mood and affect. Good judgment and insight. Assessment & Plan Assessment & Plan (1) Low back pain: Code(s): M54.5 - Low back pain (2) Disc degeneration, lumbosacral: Code(s): M51.37 - Other intervertebral disc degeneration, lumbosacral region (3) Spondylosis of lumbar joint: Code(s): M47.816 - Spondylosis without myelopathy or radiculopathy, lumbar region (4) Spondylosis of cervical spine: Code(s): M47.812 - Spondylosis without myelopathy or radiculopathy, cervical region (5) Osteoporosis: Code(s): M81.0 - Age-related osteoporosis without current pathological fracture (6) Sacroiliac joint dysfunction of left side: Code(s): M53.3 - Sacrococcygeal disorders, not elsewhere classified (7) Left hip pain: Code(s): M25.552 - Pain in left hip Plan Maye is a very pleasant 53 year old female who presents to the office today for follow up and refill of her opioid medications. [place] was reviewed and without concerns. No obvious signs of diversion, abuse or misuse of the opioid medications. Will send in prescription for oxycodone 5mg TID with an advanced date of 07/22/2023 C/W plan for Fluoroscopy guided diagnostic Left SI joint injection with local anesthetic scheduled for next month. All questions and concerns have been answered and patient agrees with the plan. Follow up in 1 month, sooner if needed. Medications: Refilled oxycodone Partial Fill upon patient request. 5 mg PO TID 30 days PRN 90 tabs 0RF pain Coding Level of Care Code Est Pt Level 3 (67063) Diagnoses Low back pain M54.5 Disc degeneration, lumbosacral M51.37 Spondylosis of lumbar joint M47.816 Spondylosis of cervical spine M47.812 Osteoporosis M81.0 Sacroiliac joint dysfunction of left side M53.3 Left hip pain M25.552
== END 2023-06-29 09:46 | disposition home or self-care (01) ==
PROVIDERS: PCP Internal Medicine; Visit Provider Registered Nurse Emergency
DX: M54.50 Low back pain, unspecified (principal); M51.37 Other intervertebral disc degeneration, lumbosacral region; M47.816 Spondylosis without myelopathy or radiculopathy, lumbar region; Z79.891 Long term (current) use of opiate analgesic; M47.812 Spondylosis without myelopathy or radiculopathy, cervical region; M81.0 Age-related osteoporosis without current pathological fracture; M53.3 Sacrococcygeal disorders, not elsewhere classified; M25.552 Pain in left hip
CPT/HCPCS: 99213

== ENCOUNTER → 2023-06-29 09:29 | Outpatient (BNVA) | payer OTHER, SELFPAY | PROVIDERS: PCP Internal Medicine; Visit Provider Registered Nurse Emergency | DX: M51.37 Other intervertebral disc degeneration, lumbosacral region (principal); M47.816 Spondylosis without myelopathy or radiculopathy, lumbar region; M47.812 Spondylosis without myelopathy or radiculopathy, cervical region; M81.0 Age-related osteoporosis without current pathological fracture; M53.3 Sacrococcygeal disorders, not elsewhere classified; M25.552 Pain in left hip; Z79.891 Long term (current) use of opiate analgesic | CPT/HCPCS: 99212 ==

== ENCOUNTER 2023-07-06 06:04 | Outpatient (REF) | payer OTHER, SELFPAY ==
--- NOTE | ~2023-07-06 | FL_ITS ---
EXAMINATION: XR FLUOROSCOPY WITH IMAGES CLINICAL INFORMATION: Sacrococcygeal disorder. COMPARISON: None available. TECHNIQUE: Fluoroscopy Supervised By: Tram. Fluoroscopy Time: 0.1 minutes. Cumulative Dose: 7.9 mGy. DAP: 0.131 Gycm2. Images: 1. FINDINGS: Single image submitted shows surgical instrument overlying the right SI joint. Contrast in the region. FL/FL guidance in treatment room IMPRESSION: Fluoroscopy with images.
== END 2023-07-06 06:05 | disposition home or self-care (01) ==
LOC: CF 06:04
PROVIDERS: Visit Provider Anesthesiology
DX: Z13.89 Encounter for screening for other disorder (principal)

== ENCOUNTER 2023-07-06 10:25 | Outpatient (AMB) | payer OTHER, SELFPAY ==
[2023-07-06 11:13] VITALS: BP 102/58; PULSE 60; RESP 16; O2SAT 98; BMI 39.1
--- NOTE | 2023-07-06 11:13 | MHC.OFFVIS ---
Intake Vital Signs 07/06/23 11:13 07/06/23 11:26 Height 4 ft 10 in Weight 187 lb BMI 39.1 BP 102/58 L 114/68 Blood Pressure Location Lt brachial Lt brachial Position Sitting Sitting Respiration 16 16 Pulse 60 77 Pulse Source Pulse Oximeter Pulse Oximeter Pulse Oximetry (%) 98 99 Oxygen Delivery Method Room Air Room Air Comment pre-op post-op Intake Visit Reasons: LEFT DIAGNOSTIC SIJ INJECTION Allergies No Known Allergies Allergy (Verified 07/06/23 11:27) PFSH Medical History Anemia Arthritis Asthma exacerbation Asthma-COPD overlap syndrome Back pain Bronchitis Chronic pain syndrome Complex regional pain syndrome i of left lower limb Cough Depression Diabetic neuropathy Diet-controlled diabetes mellitus Disc degeneration, lumbosacral Dizziness Elevated lactic acid level Essential hypertension Fibromyalgia Headache Headache, migraine History of COVID-19 Hypogammaglobulinemia Hypothyroidism Laryngotracheitis Low back pain Morbid obesity Nausea vomiting and diarrhea BABATUNDE (obstructive sleep apnea) Osteoporosis Pleuritic chest pain 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 Pulmonary embolism Sleep apnea Spondylosis of cervical spine 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 TIA (transient ischemic attack) Type 2 diabetes mellitus with unspecified complications Surgical History History of bariatric surgery History of cholecystectomy History of esophagogastroduodenoscopy (EGD) Hx of colonoscopy S/P total abdominal hysterectomy Family History Mother Diabetes Stroke Family/Other Diabetes Father Diabetes Maternal Aunt Cancer Social History Household Members: Caregiver Housing: House Are you a primary caregiver services home to a significant other at home: No Do you presently have visiting nurse or other home services: No Alcohol intake: never Patient Tobacco Use Status: Never used Tobacco e-Cigarette/Vaping Use: Never Used Second Hand Smoke Exposure: No Advance Directives Date on File: 05/23/21 service: No Current occupational status: unemployed and disabled Physical Exam Vital Signs: Last Vital Signs Pulse 77 07/06/23 11:26 Resp 16 07/06/23 11:26 BP 114/68 07/06/23 11:26 Pulse Ox 99 07/06/23 11:26 Oxygen Delivery Method Room Air 07/06/23 11:26 BMI result Body Mass Index 39.1 Assessment & Plan Assessment & Plan (1) Low back pain: Code(s): M54.5 - Low back pain Plan: Left diagnostic sacroiliac joint injection Informed consent was explained thoroughly to the patient.? All questions about benefits and risks for the procedure were answered. Patient came to the operating room and was positioned prone on the operating table with the pillow under her pelvis. ?[place] [employer] monitors were applied and patient was sedated. ? Time out was performed delineating name and of the patient, site and side of the procedure, nature of the procedure and potential patient?s risks. The lower back of the patient and upper buttocks was prepped with ChloraPrep prepped and draped with sterile utility drapes.? C-arm was brought over the operating field and square picture of patient's pelvis was demonstrated on the screen.? For the left joint tilting C-arm contralateral to the site of the joint the posterior joint silhouette was delineated on the screen. Skin projection of the joint was chosen as a target of the injection and it was injected ?slightly medial to the location of the joint with 25 gauge needle using local lidocaine 2% without epinephrine. After that 22 gauge 3 and 1/2 inch needle was driven to the joint silhouette in tunnel vision fashion.? When needle entered the joint capsule injection of the contrast was performed demonstrating intra-articular spread of the contrast.? After that 4 cc. of ropivacaine 0.5% was injected into the joint. Upon completion of the injections the needle was removed and sterile dressing was applied.? Patient tolerated procedure fairly well. (2) Disc degeneration, lumbosacral: Code(s): M51.37 - Other intervertebral disc degeneration, lumbosacral region (3) Spondylosis of lumbar joint: Code(s): M47.816 - Spondylosis without myelopathy or radiculopathy, lumbar region (4) Spondylosis of cervical spine: Code(s): M47.812 - Spondylosis without myelopathy or radiculopathy, cervical region (5) Osteoporosis: Code(s): M81.0 - Age-related osteoporosis without current pathological fracture (6) Sacroiliac joint dysfunction of left side: Code(s): M53.3 - Sacrococcygeal disorders, not elsewhere classified (7) Left hip pain: Code(s): M25.552 - Pain in left hip Plan Maye is a very pleasant 53 year old female who presents to the office today for follow up and refill of her opioid medications. Masspat was reviewed and without concerns. No obvious signs of diversion, abuse or misuse of the opioid medications. Will send in prescription for oxycodone 5mg TID with an advanced date of 07/22/2023 C/W plan for Fluoroscopy guided diagnostic Left SI joint injection with local anesthetic scheduled for next month. All questions and concerns have been answered and patient agrees with the plan. Follow up in 1 month, sooner if needed. Orders: Orders FL guidance in treatment room 07/06/23 M53.3 - Sacrococcygeal disorders, not elsewhere classified Coding Level of Care Code Procedure Only Diagnoses Low back pain M54.5 Disc degeneration, lumbosacral M51.37 Spondylosis of lumbar joint M47.816 Spondylosis of cervical spine M47.812 Osteoporosis M81.0 Sacroiliac joint dysfunction of left side M53.3 Left hip pain M25.552
[2023-07-06 11:26] VITALS: BP 114/68; PULSE 77; RESP 16; O2SAT 99
== END 2023-07-06 11:27 | disposition home or self-care (01) ==
LOC: HO.PMCPRC 10:25
PROVIDERS: PCP Internal Medicine; Visit Provider Anesthesiology
DX: M53.3 Sacrococcygeal disorders, not elsewhere classified (principal); M51.37 Other intervertebral disc degeneration, lumbosacral region; M47.816 Spondylosis without myelopathy or radiculopathy, lumbar region; M47.812 Spondylosis without myelopathy or radiculopathy, cervical region; M81.0 Age-related osteoporosis without current pathological fracture
CPT/HCPCS: 27096

== ENCOUNTER 2023-07-09 10:38 | Outpatient (REF) | payer OTHER, SELFPAY | END 2023-07-09 10:39 | disposition home or self-care (01) | LOC: HO.MDS 10:38 | PROVIDERS: Visit Provider Hospitalist | DX: D80.1 Nonfamilial hypogammaglobulinemia (principal) | CPT/HCPCS: 96365; 96366 ==

== ENCOUNTER 2023-07-14 11:29 | Outpatient (AMB) | payer OTHER, SELFPAY ==
--- NOTE | 2023-07-14 11:39 | A.OFFVIS_ITS ---
Intake Vital Signs 07/14/23 11:40 Height 4 ft 10 in Weight 188 lb BMI 39.3 BP 106/60 Blood Pressure Location Lt brachial Position Sitting Respiration 14 Pulse 78 Pulse Source Pulse Oximeter Pulse Oximetry (%) 97 Oxygen Delivery Method Room Air Intake Visit Reasons: LEFT DIAGNOSTIC SIJ INJECTION/07/06/23 Allergies No Known Allergies Allergy (Verified 07/14/23 11:41) HPI HPI Comments History of Present Illness Details Maye is a very pleasant 53 year old female who presents today for follow up 1 week s/p diagnostic left SI joint injection. Patient reports no relief with the injection. She states the pain was worse after the injection and she had to use a heating pad at home to help. She states her chronic opioid medications help with her pain. She does not have lidocaine patches at home, but is willing to try them. [facility] Medical History Anemia Arthritis Asthma exacerbation Asthma-COPD overlap syndrome Back pain Bronchitis Chronic pain syndrome Complex regional pain syndrome i of left lower limb Cough Depression Diabetic neuropathy Diet-controlled diabetes mellitus Disc degeneration, lumbosacral Dizziness Elevated lactic acid level Essential hypertension Fibromyalgia Headache Headache, migraine History of COVID-19 Hypogammaglobulinemia Hypothyroidism Laryngotracheitis Low back pain Morbid obesity Nausea vomiting and diarrhea BABATUNDE (obstructive sleep apnea) Osteoporosis Pleuritic chest pain 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 Pulmonary embolism Sleep apnea Spondylosis of cervical spine 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 TIA (transient ischemic attack) Type 2 diabetes mellitus with unspecified complications Surgical History History of bariatric surgery History of cholecystectomy History of esophagogastroduodenoscopy (EGD) Hx of colonoscopy S/P total abdominal hysterectomy Family History Mother Diabetes Stroke Family/Other Diabetes Father Diabetes Maternal Aunt Cancer Social History Household Members: Caregiver Housing: House Are you a primary vehicle care specialist to a significant other at home: No Do you presently have visiting nurse or other home services: No Alcohol intake: never Patient Tobacco Use Status: Never used Tobacco e-Cigarette/Vaping Use: Never Used Second Hand Smoke Exposure: No Advance Directives Date on File: 05/23/21 service: No Current occupational status: unemployed and disabled Review of Systems Const All systems reviewed & are unremarkable except as noted in HPI and below Physical Exam Vital Signs: Last Vital Signs Pulse 78 07/14/23 11:40 Resp 14 07/14/23 11:40 BP 106/60 07/14/23 11:40 Pulse Ox 97 07/14/23 11:40 Oxygen Delivery Method Room Air 07/14/23 11:40 BMI result Body Mass Index 39.3 General: awake, alert, oriented. Answers questions appropriately. Fully engaged in examination. Skin: warm, dry, intact. HEENT: Normocephalic. Hearing intact. Cardiac: External chest normal in appearance. Respiratory: No cough, audible wheezing or stridor. Abdomen: without gross distension. MS: No obvious swelling or deformities. Able to transition from sit to stand unassisted. Neurological: Oriented to person, place, time and situation. Thought process intact. ambulates unassisted with antalgic gait. Psychiatric: Appropriate mood and affect. Good judgment and insight. Assessment & Plan Assessment & Plan (1) Low back pain: Code(s): M54.5 - Low back pain (2) Disc degeneration, lumbosacral: Code(s): M51.37 - Other intervertebral disc degeneration, lumbosacral region (3) Spondylosis of lumbar joint: Code(s): M47.816 - Spondylosis without myelopathy or radiculopathy, lumbar region (4) Spondylosis of cervical spine: Code(s): M47.812 - Spondylosis without myelopathy or radiculopathy, cervical region (5) Osteoporosis: Code(s): M81.0 - Age-related osteoporosis without current pathological fracture (6) Sacroiliac joint dysfunction of left side: Code(s): M53.3 - Sacrococcygeal disorders, not elsewhere classified (7) Left hip pain: Code(s): M25.552 - Pain in left hip Plan Maye is a very pleasant 53 year old female who presented to the office today for follow up 1 week s/p left diagnostic SI joint injection. unfortunately patient did not receive therapeutic benefit from the diagnostic injection. Patient agrees with plan to forego therapeutic injection due to lack of pain response with diagnostic. Will send in prescription for lidocaine patches, patient instructed on use. Patient will follow up in the office as planned for next opioid medication management visit. Follow up sooner if needed. Medications: New lidocaine 5% leave on most painful area for up to 12 hrs 2 patches topical DAILY 30 ea 0RF 15 days Coding Level of Care Code Est Pt Level 3 (39619) Diagnoses Low back pain M54.5 Disc degeneration, lumbosacral M51.37 Spondylosis of lumbar joint M47.816 Spondylosis of cervical spine M47.812 Osteoporosis M81.0 Sacroiliac joint dysfunction of left side M53.3 Left hip pain M25.552
[2023-07-14 11:40] VITALS: BP 106/60; PULSE 78; RESP 14; O2SAT 97; BMI 39.3
== END 2023-07-14 11:50 | disposition home or self-care (01) ==
PROVIDERS: PCP Internal Medicine; Visit Provider Registered Nurse Emergency
DX: M54.50 Low back pain, unspecified (principal); M51.37 Other intervertebral disc degeneration, lumbosacral region; M47.816 Spondylosis without myelopathy or radiculopathy, lumbar region; M47.812 Spondylosis without myelopathy or radiculopathy, cervical region; M81.0 Age-related osteoporosis without current pathological fracture; M53.3 Sacrococcygeal disorders, not elsewhere classified; M25.552 Pain in left hip
CPT/HCPCS: 99213

== ENCOUNTER → 2023-07-14 11:29 | Outpatient (BNVA) | payer OTHER, SELFPAY | PROVIDERS: PCP Internal Medicine; Visit Provider Registered Nurse Emergency | DX: M51.37 Other intervertebral disc degeneration, lumbosacral region (principal); M54.50 Low back pain, unspecified; M47.816 Spondylosis without myelopathy or radiculopathy, lumbar region; M47.812 Spondylosis without myelopathy or radiculopathy, cervical region; M81.0 Age-related osteoporosis without current pathological fracture; M53.3 Sacrococcygeal disorders, not elsewhere classified; M25.552 Pain in left hip | CPT/HCPCS: 99212 ==

== ENCOUNTER 2023-07-23 09:21 | Outpatient (REF) | payer OTHER, SELFPAY ==
[2023-07-23 09:38] LABS: MANUAL DIFF FLAG NO
[2023-07-23 10:30] LABS: Basophils Absolute Auto 0.1 X10*3/uL (0.0-0.2); Basophils Percent Auto 0.9 % (0-2); Eosinophils Absolute Auto 0.3 X10*3/uL (0.0-0.4); Eosinophils Percent Auto 4.3 % (0-4); Hematocrit 33.2 % (37.0-47.0); Hemoglobin 9.5 g/dl (12.0-16.0); Imm Gran Abs Auto 0.03 X10*3/uL (0.00-0.03); Imm Gran Pct Auto 0.4 % (0.0-0.4); Lymphocytes Percent Auto 27.9 % (20-40); Mean Corpuscular HGB Conc 28.6 g/dl (31.0-35.0); Mean Corpuscular Hemoglobin 22.4 pg (27.0-33.0); Mean Corpuscular Volume 78.1 fL (80.0-98.0); Mean Platelet Volume 9.3 fL (9.4-12.3); Monocytes Absolute Auto 0.5 X10*3/uL (0.1-1.2); Monocytes Percent Auto 6.8 % (2-11); Neutrophils Absolute Auto 4.2 x10*3/uL (2.0-8.3); Neutrophils Percent Auto 59.7 % (45-73); Platelet Count 431 X10*3/uL (160-400); Red Blood Count 4.25 X10*6/uL (4.20-5.50); Red Cell Distribution Width 16.8 % (11.0-16.0)
[2023-07-23 11:14] LABS: Ferritin 11 ng/mL (10-250)
== END 2023-07-23 09:22 | disposition home or self-care (01) ==
LOC: HO.LAB 09:21
PROVIDERS: PCP Internal Medicine; Visit Provider Internal Medicine
DX: D64.9 Anemia, unspecified (principal); G50.0 Trigeminal neuralgia; Z98.84 Bariatric surgery status
CPT/HCPCS: 36415; 82728; 85025

== ENCOUNTER 2023-07-27 09:27 | Outpatient (AMB) | payer OTHER, SELFPAY ==
--- NOTE | 2023-07-27 09:43 | A.OFFVIS_ITS ---
Intake Vital Signs 07/27/23 09:44 Height 4 ft 10 in Weight 186 lb BMI 38.9 BP 127/60 Blood Pressure Location Lt brachial Position Sitting Respiration 16 Pulse 78 Pulse Source Pulse Oximeter Pulse Oximetry (%) 98 Oxygen Delivery Method Room Air Intake Visit Reasons: PILL COUNT/ CONFIRMED Allergies No Known Allergies Allergy (Verified 07/27/23 10:01) HPI HPI Comments History of Present Illness Details Maye is a very pleasant 53 year old female who presents to the office today for follow up chronic pain and chronic opioid therapy management. Patient is prescribed oxycodone 5mg tabs, take one tablet three times daily. Patient arrived today with the expectation of having 75 pills, she presented 78 pills which were counted in the presence of two staff members and returned to the patient in the original prescription bottle. This demonstrates responsible attitude toward patient's opioid medications. Pain is reported today as 5/10 and last dose of pain medication was taken at 08:00 this morning. Pain is well managed on current opioid regimen with improvement in mobility and overall functioning. Patient has also been using topical lidocaine patches and states this is also helping her pain. Today she complains of some pain in the right knee, she has been evaluated in the past by ortho but has not seen them recently. She would like a referral to see them again. Previously: She was suspended for 6 months because UDS demonstrated tramadol in her urine. She was admitted slightly earlier on the request of her PCP - she developed renal insufficiency and she was taking large doses of NSAIDs to help her pain. Her risk of Opioid was low.? When she come back from suspension her opioid risk will become moderate. [facility] Medical History Anemia Arthritis Asthma exacerbation Asthma-COPD overlap syndrome Back pain Bronchitis Chronic pain syndrome Complex regional pain syndrome i of left lower limb Cough Depression Diabetic neuropathy Diet-controlled diabetes mellitus Disc degeneration, lumbosacral Dizziness Elevated lactic acid level Essential hypertension Fibromyalgia Headache Headache, migraine History of COVID-19 Hypogammaglobulinemia Hypothyroidism Laryngotracheitis Low back pain Morbid obesity Nausea vomiting and diarrhea BABATUNDE (obstructive sleep apnea) Osteoporosis Pleuritic chest pain 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 Pulmonary embolism Sleep apnea Spondylosis of cervical spine 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 TIA (transient ischemic attack) Type 2 diabetes mellitus with unspecified complications Surgical History History of bariatric surgery History of cholecystectomy History of esophagogastroduodenoscopy (EGD) Hx of colonoscopy S/P total abdominal hysterectomy Family History Mother Diabetes Stroke Family/Other Diabetes Father Diabetes Maternal Aunt Cancer Social History Household Members: Caregiver Housing: House Are you a primary youth career specialist to a significant other at home: No Do you presently have visiting nurse or other home services: No Alcohol intake: never Patient Tobacco Use Status: Never used Tobacco e-Cigarette/Vaping Use: Never Used Second Hand Smoke Exposure: No Advance Directives Date on File: 05/23/21 service: No Current occupational status: unemployed and disabled Review of Systems Const All systems reviewed & are unremarkable except as noted in HPI and below Physical Exam Vital Signs: Last Vital Signs Pulse 78 07/27/23 09:44 Resp 16 07/27/23 09:44 BP 127/60 07/27/23 09:44 Pulse Ox 98 07/27/23 09:44 Oxygen Delivery Method Room Air 07/27/23 09:44 BMI result Body Mass Index 38.9 General: awake, alert, oriented. Answers questions appropriately. Fully engaged in examination. Skin: warm, dry, intact. HEENT: Normocephalic. Hearing intact. Cardiac: External chest normal in appearance. Respiratory: No cough, audible wheezing or stridor. Abdomen: without gross distension. MS: No obvious swelling or deformities. Able to transition from sit to stand unassisted. Neurological: Oriented to person, place, time and situation. Thought process intact. ambulates unassisted with antalgic gait. Psychiatric: Appropriate mood and affect. Good judgment and insight. Assessment & Plan Assessment & Plan (1) Knee pain, left: Code(s): M25.562 - Pain in left knee Qualifiers: Chronicity: chronic Qualified Code(s): M25.562 - Pain in left knee; G89.29 - Other chronic pain (2) Low back pain: Code(s): M54.5 - Low back pain Qualifiers: Chronicity: chronic Back pain laterality: bilateral Sciatica presence: without sciatica Qualified Code(s): M54.50 - Low back pain, unspecified; G89.29 - Other chronic pain (3) Disc degeneration, lumbosacral: Code(s): M51.37 - Other intervertebral disc degeneration, lumbosacral region (4) Spondylosis of lumbar joint: Code(s): M47.816 - Spondylosis without myelopathy or radiculopathy, lumbar region (5) Spondylosis of cervical spine: Code(s): M47.812 - Spondylosis without myelopathy or radiculopathy, cervical region (6) Osteoporosis: Code(s): M81.0 - Age-related osteoporosis without current pathological fracture (7) Sacroiliac joint dysfunction of left side: Code(s): M53.3 - Sacrococcygeal disorders, not elsewhere classified (8) Left hip pain: Code(s): M25.552 - Pain in left hip Plan Maye is a very pleasant 53 year old female who presents to the office today for follow up chronic pain and refill of her chronic opioid medications. Masspat was reviewed and without concerns. No obvious signs of diversion, abuse or misuse of the opioid medications. Will send in prescription for oxycodone 5mg TID with an advanced date of 08/21/2023 Referral placed for orthopedics office for her left knee pain. All questions and concerns have been answered and patient agrees with the plan. Follow up in 1 month, sooner if needed. Orders: Referrals Orthopedics Referral M25.562 - Pain in left knee Medications: Refilled oxycodone Partial Fill upon patient request. 5 mg PO TID PRN 90 tabs 0RF pain 30 days Coding Level of Care Code Est Pt Level 4 (00076) Diagnoses Chronic pain of left knee M25.562; G89.29 Chronicity: chronic Chronic bilateral low back pain without sciatica M54.50; G89.29 Chronicity: chronic Back pain laterality: bilateral Sciatica presence: without sciatica Disc degeneration, lumbosacral M51.37 Spondylosis of lumbar joint M47.816 Spondylosis of cervical spine M47.812 Osteoporosis M81.0 Sacroiliac joint dysfunction of left side M53.3 Left hip pain M25.552
[2023-07-27 09:44] VITALS: BP 127/60; PULSE 78; RESP 16; O2SAT 98; BMI 38.9
== END 2023-07-27 09:58 | disposition home or self-care (01) ==
PROVIDERS: PCP Internal Medicine; Visit Provider Registered Nurse Emergency
DX: G89.29 Other chronic pain (principal); M25.562 Pain in left knee; M54.50 Low back pain, unspecified; Z79.891 Long term (current) use of opiate analgesic; M51.37 Other intervertebral disc degeneration, lumbosacral region; M47.816 Spondylosis without myelopathy or radiculopathy, lumbar region; M47.812 Spondylosis without myelopathy or radiculopathy, cervical region; M81.0 Age-related osteoporosis without current pathological fracture; M53.3 Sacrococcygeal disorders, not elsewhere classified; M25.552 Pain in left hip
CPT/HCPCS: 99214

== ENCOUNTER → 2023-07-27 09:27 | Outpatient (BNVA) | payer OTHER, SELFPAY | PROVIDERS: PCP Internal Medicine; Visit Provider Registered Nurse Emergency | DX: Z51.81 Encounter for therapeutic drug level monitoring (principal); F11.20 Opioid dependence, uncomplicated; M25.562 Pain in left knee; M54.50 Low back pain, unspecified; M51.37 Other intervertebral disc degeneration, lumbosacral region; M47.816 Spondylosis without myelopathy or radiculopathy, lumbar region; M47.812 Spondylosis without myelopathy or radiculopathy, cervical region; M81.0 Age-related osteoporosis without current pathological fracture; M53.3 Sacrococcygeal disorders, not elsewhere classified; M25.552 Pain in left hip; G89.29 Other chronic pain | CPT/HCPCS: 99212 ==

== ENCOUNTER 2023-08-06 09:35 | Emergency (ER) | payer OTHER, SELFPAY ==
[2023-08-06 09:40] VITALS: BP 114/61; PULSE 94; RESP 16; TEMP 36.6; O2SAT 97; BMI 37.4
--- NOTE | 2023-08-06 11:39 | ED.GENADULT ---
HPI - General Adult General Chief complaint: Abdominal Pain Stated complaint: Flu Like Symptoms Time Seen by Provider: 08/06/23 11:39 Source: patient, family (patient's daughter) and manager supply Mode of arrival: ambulatory Limitations: language barrier History of Present Illness HPI narrative: Patient is a 53 year old assigned female at with a history of asthma and DM presenting to the emergency department today with nausea, vomiting, and diarrhea. Patient states that intermittently over the last week she has had nausea, vomiting, and diarrhea. Patient denies any dizziness, lightheadedness, abdominal pain, fever, chills, blurry vision, double vision, loss of vision, chest pain, difficulty breathing, shortness of breath, back pain, night sweats, pain with urination, increased urinary frequency, increased urinary urgency, blood in her urine or stool, syncope or a near syncopal episode, recent trauma or falls, bowel incontinence, bladder incontinence, bowel retention, bladder retention, or any other complaints at this time. Onset (ago): week(s) (1) Severity: mild Severity scale (1-10): 3 Pain Consistency: intermittent Relieving factors: none Exacerbating factors: none Associated symptoms: nausea/vomiting Treatments prior to arrival: none Related Data Home Medications Medication Instructions Recorded Confirmed montelukast 10 mg tablet 10 mg PO BEDTIME 08/02/20 02/11/23 cyanocobalamin (vitamin B-12) 1,000 mcg PO DAILY 11/05/20 02/11/23 1,000 mcg tablet escitalopram oxalate 10 mg tablet 1 tab PO DAILY 08/21/22 02/11/23 zolpidem 10 mg tablet 1 tab PO BEDTIME 08/21/22 02/11/23 cholecalciferol (vitamin D3) 25 1 tab PO DAILY 11/28/22 02/11/23 mcg (1,000 unit) tablet valsartan 160 mg tablet 1 tab PO DAILY 11/28/22 02/11/23 quetiapine 300 mg tablet 300 mg PO BEDTIME 12/07/22 02/11/23 alclometasone 0.05 % topical cream appl topical 02/12/23 betamethasone dipropionate 0.05 % 1 appl topical BID 02/12/23 lotion blood sugar diagnostic (FreeStyle #10 ea 02/12/23 Lite Strips) calcipotriene 0.005 % topical topical 02/12/23 ointment ferrous sulfate 325 mg (65 mg 325 mg PO DAILY 02/12/23 iron) tablet fluocinonide 0.05 % topical topical BID PRN 02/12/23 ointment fluticasone propionate 50 0 mcg intranasal DAILY 02/12/23 mcg/actuation nasal spray,suspension hydroxyzine HCl 25 mg tablet 25 mg PO TID PRN itch 02/12/23 omeprazole 20 mg capsule,delayed 20 mg PO DAILY 02/12/23 release prednisone 10 mg tablet 10 mg PO 02/12/23 terbinafine HCl 250 mg tablet 250 mg PO DAILY 02/12/23 nebulizers 04/02/23 Previous Rx's Medication Instructions Recorded acetaminophen 500 mg tablet 500 mg PO Q6H PRN pain or fever 01/21/22 (Tylenol Extra Strength) #20 tabs dicyclomine 20 mg tablet 20 mg PO QID PRN abdominal pain 06/27/22 #20 tabs albuterol sulfate 2.5 mg/3 mL 2.5 mg (3 mL) inhalation Q4H PRN 09/08/22 (0.083 %) solution for nebulization shortness of breath or wheezing 30 days #360 mL ondansetron 4 mg disintegrating 4 mg PO TID PRN nausea and 11/27/22 tablet vomiting 5 days #20 tabs zinc acetate 50 mg (zinc) capsule 100 mg (2 x 50 mg (zinc)) PO DAILY 12/02/22 (Galzin) 30 days #60 caps benzonatate 200 mg capsule 200 mg PO BID PRN cough 30 days 12/07/22 #60 caps glycopyrrolate 9 mcg-formoterol 2 puff inhalation Q12H 30 days 12/07/22 4.8 mcg HFA aerosol inhaler #10.7 grams (Bevespi Aerosphere) doxycycline monohydrate 100 mg 100 mg PO BID #14 caps 02/13/23 capsule (Monodox) sucralfate 1 gram tablet 1 g PO TID PRN gastritis 14 days 02/17/23 #42 tabs naloxone 4 mg/actuation nasal spray 4 mg intranasal Q2M PRN opioid 02/24/23 overdose 1 day #2 ea benzonatate 200 mg capsule 200 mg PO BID PRN cough 30 days 04/02/23 #60 caps budesonide 160 mcg-glycopyr 9 2 inh inhalation BID 30 days #10.7 04/02/23 mcg-formot 4.8 mcg/actuation HFA grams inhaler (Breztri Aerosphere) gabapentin 300 mg capsule 600 mg (2 x 300 mg) PO BID #120 04/14/23 caps apixaban 2.5 mg tablet (Eliquis) 2.5 mg PO BID #180 tabs 04/17/23 cefdinir 300 mg capsule 300 mg PO BID 3 days #6 caps 04/19/23 amoxicillin 875 mg-potassium 1 tab PO BID 10 days #20 tabs 04/29/23 clavulanate 125 mg tablet cefpodoxime 200 mg tablet 200 mg PO BID #20 tabs 04/30/23 immune glob,gamm(IgG) 10 %-pro-IgA 40 g IV Q4W #400 mL 05/28/23 0 to 50 mcg/mL intravenous solution (Privigen) acetaminophen 500 mg tablet 500 mg PO Q6H PRN pain #20 tabs 06/09/23 lidocaine 5 % topical patch 2 patch topical DAILY 15 days #30 07/14/23 ea oxycodone 5 mg tablet 5 mg PO TID PRN pain 30 days #90 07/27/23 tabs cefdinir 300 mg capsule 300 mg PO BID 7 days #14 caps 08/06/23 ondansetron 4 mg disintegrating 4 mg PO Q8H 3 days #9 tabs 08/06/23 tablet Allergies Allergy/AdvReac Type Severity Reaction Status Date / Time No Known Allergies Allergy Verified 07/27/23 10:01 Review of Systems Constitutional: Constitutional: Reports no additional constitutional complaints, Denies chills, Denies fever(s) and Denies night sweats Eyes: Eyes: Reports no additional eye complaints, Denies blurry vision, Denies change in vision, Denies diplopia, Denies eye discharge, Denies loss of vision and Denies eye pain ENT: Denies dizziness Cardiovascular: Cardiovascular: Reports no additional cardiovascular complaints, Denies chest pain, Denies lightheadedness, Denies Loss of Consciousness and Denies dyspnea Respiratory: Respiratory: Reports no additional respiratory complaints and Denies dyspnea Gastrointestinal: Gastrointestinal: Reports no additional gastrointestinal complaints, Denies abdominal pain, Denies melena, Denies hematochezia, Denies change in bowel habits, Denies change in stool character, Reports diarrhea, Reports nausea and Reports vomiting Genitourinary: Genitourinary: Denies hematuria, Denies urinary frequency, Denies dysuria, Denies urinary incontinence, Denies urinary hesitancy and Denies urinary urgency Musculoskeletal: Musculoskeletal: Reports no additional musculoskeletal complaints, Denies numbness and Denies tingling Neurologic: Denies dizziness, Denies loss of vision, Denies numbness and Denies tingling Psychiatric: Psychiatric: Reports no additional psychiatric complaints Endocrine: Endocrine: Reports no additional endocrine complaints Hematologic/Lymphatic: Hematologic/Lymphatic: Reports no additional hematologic/lymphatic complaints Allergic/Immunologic: Allergic/Immunologic: Reports no additional allergic/immunologic complaints [facility] Past Medical History Attestation statement: The following information was validated with the patient. 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 Dizziness Headache Elevated lactic acid level Bronchitis Headache, migraine Asthma exacerbation Cough BABATUNDE (obstructive sleep apnea) Chronic pain syndrome Spondylosis of lumbar spine Low back pain Complex regional pain syndrome i of left lower limb Diabetic neuropathy Laryngotracheitis Essential hypertension Type 2 diabetes mellitus with unspecified complications Morbid obesity Anemia Back pain Pleuritic chest pain Fibromyalgia Hypothyroidism TIA (transient ischemic attack) Diet-controlled diabetes mellitus Depression Arthritis Sleep apnea Hypogammaglobulinemia Pulmonary embolism Surgical History History of esophagogastroduodenoscopy (EGD) Hx of colonoscopy S/P total abdominal hysterectomy History of cholecystectomy History of bariatric surgery Family History Family History Mother Diabetes Stroke Family/Other Diabetes Father Diabetes Maternal Aunt Cancer Social History Social History Household Members: Caregiver Housing: House Are you a primary career development consultant to a significant other at home: No Do you presently have visiting nurse or other home services: No Alcohol intake: never Patient Tobacco Use Status: Never used Tobacco Smoked in Last 30 Days: No e-Cigarette/Vaping Use: Never Used Second Hand Smoke Exposure: No Use of substances other than those prescribed or required for medical reasons: No Advance Directives: Yes Advance Directives Information Provided: Yes Advance Directives on File: No Advance Directives Date on File: 05/23/21 Patient : No service: No Current occupational status: unemployed and disabled Physical Exam ED Vital Signs: Vital Signs - 24 hr 08/06/23 09:40 08/06/23 12:20 08/06/23 13:58 Temperature 97.9 F 98.4 F 98.4 F Pulse Rate 94 72 70 Respiratory Rate 16 12 16 Blood Pressure 114/61 112/59 L 99/52 L Pulse Oximetry 97 93 98 Oxygen Delivery Method Room Air Room Air Room Air BMI result Body Mass Index 37.4 Const General: cooperative, no acute distress, alert and awake Nutritional Appearance: well nourished Orientation/consciousness: patient oriented x3 Limitations: no limitations HENMT Head: Yes normal to inspection and Yes atraumatic Ears: hearing grossly normal bilaterally and external ears normal General nose exam: Normal external nose present, no nasal discharge noted and no epistaxis Face and sinus: Yes normal facial exam, No abrasion and No laceration Mouth: Normal oral and palatal mucosa present, no drooling and no muffled voice Eyes General: appearance normal, both eyes and all related structures Periorbital: periorbital findings normal Eyelids: Yes eyelids normal Conjunctivae: conjunctivae normal Pupils: Equal, round and reactive pupils present EOM: EOMs intact bilaterally Neck Neck: Yes normal visual inspection, Yes full ROM and Yes no lymphadenopathy Chest Chest palpation & inspection: normal inspection of the chest Resp Effort & Inspection: normal respiratory effort and able to speak in complete sentences Auscultation: clear to auscultation bilaterally Cardio Rate: regular rate Rhythm: regular rhythm GI Inspection: Yes normal to inspection Palpation (GI): Soft to palpation, not firm, nontender and no guarding Neuro General: patient oriented x3 and moves all extremities Cranial nerves: Yes Equal, round and reactive pupils present Cognition (Neuro): normal cognition Motor exam (neuro): 5/5 motor strength present throughout Sensory Exam: Normal double simultaneous stimulation for sensation Coordination: [id number] test normal Extrem General: Yes normal to inspection, Yes full ROM and Yes capillary refill normal Psych Appearance: grossly normal Mental Status: mental status grossly normal Affect: normal affect Attitude: cooperative Thought process: Normal thought process present Thought content: Normal thought content present Insight: Good insight present (Psych) Medications Administered Discontinued Medications Generic Name Dose Route Start Last Admin Trade Name Renato PRN Reason Stop Dose Admin Sodium Chloride 1,000 mls @ 999 mls/hr 08/06/23 12:30 08/06/23 14:19 Ns IV 08/06/23 13:30 Infused .Q1H1M OMERO Infusion Morphine Sulfate 4 mg 08/06/23 12:30 08/06/23 13:06 Morphine Sulfate 4 Mg/Ml Cartridge IVPUSH 08/06/23 12:31 4 mg ONCE ONE Administration Protocol Ondansetron HCl 4 mg 08/06/23 12:29 08/06/23 13:05 Ondansetron Hcl 4 Mg/2 Ml Vial IVPUSH 08/06/23 12:30 4 mg ONCE ONE Administration Medical Decision Making Medical Decision Making [facility] Narrative: Patient is a 53 year old assigned female at with a history of asthma and DM presenting to the emergency department today with nausea, vomiting, and diarrhea. Patient's physical exam was unremarkable. Patient's blood work was unremarkable. Patient's urine showed a possible UTI - given the patient's symptoms, will treat. I explained my physical exam findings as well as all test results to the patient and the patient's daughter. I answered all questions asked by the patient and the patient's daughter. Patient received IV fluids, Toradol, and Zofran which she stated helped her symptoms significantly. I stressed the importance of the patient taking her medication as prescribed. I stressed the importance of the patient following up with her primary care provider. I stressed the importance of the patient returning to the emergency department immediately if her symptoms were to worsen or if she were to develop any dizziness, shortness of breath, difficulty breathing, chest pain, blurry vision, loss of vision, nausea, vomiting, abdominal pain, fever, chills, back pain, or any other complaints. Patient and the patient's daughter verbalized agreement and understanding with this treatment plan and discharge. Differential Diagnosis Differential Diagnoses: The differential diagnosis associated with the presentation includes Gastroenteritis Viral illness Nausea and vomiting COVID-19 Influenza RSV UTI Admission/Observation Consideration of admission/observation: Escalation of care including admission/observation considered Patient would have been admitted to the hospital had her work up had any findings where hospital admission was appropriate and her clinical presentation warranted hospital admission. Lab Data [facility] Lab Attestation statement: I reviewed the patient's lab results. My interpretation of these results are in the MDM rationale portion of this note. 08/06/23 11:03 08/06/23 11:03 Labs: Lab Results 08/06/23 08/06/23 Range/Units 11:03 12:03 WBC 7.3 (4.8-10.8) X10*3/uL RBC 4.25 (4.20-5.50) X10*6/uL Hgb 9.6 L (12.0-16.0) g/dl Hct 32.5 L (37.0-47.0) % MCV 76.5 L (80.0-98.0) fL MCH 22.6 L (27.0-33.0) pg MCHC 29.5 L (31.0-35.0) g/dl RDW 17.7 H (11.0-16.0) % Plt Count 341 (160-400) X10*3/uL MPV 8.9 L (9.4-12.3) fL Immature Gran % (Auto) 0.4 (0.0-0.4) % Neut % (Auto) 61.4 (45-73) % Lymph % (Auto) 27.5 (20-40) % [place] % (Auto) 7.4 (2-11) % Eos % (Auto) 2.9 (0-4) % Baso % (Auto) 0.4 (0-2) % Lymph # (Auto) 2.0 (1.2-4.9) X10*3/uL [place] # (Auto) 0.5 (0.1-1.2) X10*3/uL Eos # (Auto) 0.2 (0.0-0.4) X10*3/uL Baso # (Auto) 0.0 (0.0-0.2) X10*3/uL Abs Immat Gran (auto) 0.03 (0.00-0.03) X10*3/uL Absolute Neuts (auto) 4.5 (2.0-8.3) x10*3/uL Absolute Nucleated RBC 0.000 (0.0-0.012) X10*3/uL Nucleated RBC % (auto) 0.0 (0.0-0.2) /100WBC Sodium 140 (135-145) mmol/L Potassium 3.9 (3.3-5.1) mmol/L Chloride 108 (96-108) mmol/L Carbon Dioxide 23 (22-29) mmol/L Anion Gap 13 (12-20) BUN 14 (9-16) mg/dL Creatinine 1.19 (0.5-1.4) mg/dL Estim Creat Clear Calc 48.6 Estimated GFR 47 Random Glucose 89 (60-115) mg/dL Calcium 9.8 (8.4-10.2) mg/dL Magnesium 2.0 (1.6-2.6) mg/dL Total Bilirubin 0.2 (0.0-1.0) mg/dL Direct Bilirubin < 0.2 (0.0-0.5) mg/dL AST 16 (5-31) U/L ALT 10 (0-31) U/L Alkaline Phosphatase 87 (39-117) U/L Total Protein 6.6 (6.5-8.0) g/dL Albumin 3.6 (3.5-5.0) g/dL Urine Color Yellow Urine Appearance Clear Urine pH 5.5 (5.0-9.0) Ur Specific [place] 1.015 (1.005-1.025) Urine Protein Negative (Neg-Trace) mg/dL Urine Glucose (UA) Negative (Negative) mg/dL Urine Ketones Negative (Negative) mg/dL Urine Blood Moderate (2+) H (Negative) Urine Nitrite Negative (Negative) Ur Leukocyte Esterase Small (1+) H (Negative) Urine RBC >20 H (0-2) /HPF Urine WBC 6-10 H (0-5) /HPF Ur Squamous Epith Cells 3-5 (0-2) /HPF Urine Bacteria None Seen (None Seen) Hyaline Casts 0-2 (0-2) /LPF Influenza Type A (PCR) NEGATIVE (Negative) Influenza Type B (PCR) NEGATIVE (Negative) RSV RNA Qual (PCR) NEGATIVE (Negative) SARS-CoV-2 RNA (RT-PCR) NEGATIVE (Negative) Independent Historian Clinical information obtained from an independent historian. History obtained from or confirmed by: Other (patient's daughter provided additional history and confirmed the history provided by the patient.) External Record Review External record reviewed: Inpatient record, Office record, Outpatient record and Prior outpatient labs Prescription Management I considered prescription management with: Antibiotic (patient prescribed an antibiotic for a possible UTI) Chronic Conditions Patient?s care impacted by: Diabetes Discharge Plan Discharge Clinical Impression: Viral illness, Nausea & vomiting, Urinary tract infection Patient Disposition: Home, Self-Care Instructions: Acute Nausea and Vomiting (ED), Viral Syndrome (ED), Urinary Tract Infection in Older Adults (ED) Additional Instructions: Follow up with your primary care provider. Return to the emergency department immediately if your symptoms worsen or if you develop any dizziness, shortness of breath, difficulty breathing, chest pain, blurry vision, loss of vision, nausea, vomiting, abdominal pain, fever, chills, back pain, or any other complaints. Isamar un seguimiento con marcial proveedor de atenci?n primaria. Regrese al departamento de emergencias inmediatamente si donis s?ntomas empeoran o si presenta mareos, dificultad para respirar, dificultad para respirar, dolor en el pecho, visi?n borrosa, p?rdida de la visi?n, n?useas, v?mitos, dolor abdominal, fiebre, escalofr?os, dolor de espalda o cualquier otras quejas. Prescriptions: New ondansetron 4 mg tablet,disintegrating 4 mg PO Q8H 3 Days Qty: 9 0RF cefdinir 300 mg capsule 300 mg PO BID 7 Days Qty: 14 0RF No Action ondansetron 4 mg tablet,disintegrating 4 mg PO TID PRN (Reason: nausea and vomiting) 5 Days Qty: 20 0RF Galzin 50 mg (zinc) capsule 100 mg PO DAILY 30 Days Qty: 60 1RF sucralfate 1 gram tablet 1 g PO TID PRN (Reason: gastritis ) 14 Days Qty: 42 0RF gabapentin 300 mg capsule 600 mg PO BID Qty: 120 11RF amoxicillin-pot clavulanate 875-125 mg tablet 1 tab PO BID 10 Days Qty: 20 0RF cefpodoxime 200 mg tablet 200 mg PO BID Qty: 20 0RF Rx Instructions: must administer with a meal/food Privigen 10 % solution 40 g IV Q4W Qty: 400 11RF montelukast 10 mg tablet 10 mg PO BEDTIME Eliquis 2.5 mg Tablet 2.5 mg PO BID Qty: 180 0RF acetaminophen [Tylenol Extra Strength] 500 mg tablet 500 mg PO Q6H PRN (Reason: pain or fever) Qty: 20 0RF dicyclomine 20 mg tablet 20 mg PO QID PRN (Reason: abdominal pain) Qty: 20 0RF escitalopram oxalate 10 mg tablet 1 tab PO DAILY zolpidem 10 mg tablet 1 tab PO BEDTIME valsartan 160 mg tablet 1 tab PO DAILY cholecalciferol (vitamin D3) 25 mcg (1,000 unit) tablet 1 tab PO DAILY doxycycline monohydrate [Monodox] 100 mg capsule 100 mg PO BID Qty: 14 0RF acetaminophen 500 mg tablet 500 mg PO Q6H PRN (Reason: pain) Qty: 20 0RF cefdinir 300 mg capsule 300 mg PO BID 3 Days Qty: 6 0RF cyanocobalamin (vitamin B-12) 1,000 mcg tablet 1,000 mcg PO DAILY albuterol sulfate 2.5 mg /3 mL (0.083 %) solution for nebulization 2.5 mg inhalation Q4H PRN (Reason: shortness of breath or wheezing) 30 Days Qty: 360 11RF (DME) FreeStyle Lite Strips Strip See Rx Instructions .ROUTE BID Qty: 10 Rx Instructions: As directed betamethasone dipropionate 0.05 % lotion 1 appl topical BID calcipotriene 0.005 % ointment topical prednisone 10 mg tablet 10 mg PO terbinafine HCl 250 mg tablet 250 mg PO DAILY hydroxyzine HCl 25 mg tablet 25 mg PO TID PRN (Reason: itch) fluocinonide 0.05 % ointment topical BID PRN alclometasone 0.05 % cream topical omeprazole 20 mg capsule,delayed release(DR/EC) 20 mg PO DAILY fluticasone propionate 50 mcg/actuation spray,suspension 0 mcg intranasal DAILY ferrous sulfate 325 mg (65 mg iron) tablet 325 mg PO DAILY quetiapine 300 mg tablet 300 mg PO BEDTIME Bevespi Aerosphere 9-4.8 mcg HFA aerosol inhaler 2 puff inhalation Q12H 30 Days Qty: 10.7 11RF benzonatate 200 mg capsule 200 mg PO BID PRN (Reason: cough) 30 Days Qty: 60 6RF (DME) nebulizers Misc See Rx Instructions .ROUTE Rx Instructions: As directed Heather Aerosphere 160-9-4.8 mcg/actuation HFA aerosol inhaler 2 inh inhalation BID 30 Days Qty: 10.7 11RF benzonatate 200 mg capsule 200 mg PO BID PRN (Reason: cough) 30 Days Qty: 60 6RF naloxone 4 mg/actuation spray,non-aerosol 4 mg intranasal Q2M PRN (Reason: opioid overdose) 1 Days Qty: 2 2RF Rx Instructions: spray 1 dose into ONE nostril; alternate nostrils w each dose until help arrives lidocaine 5 % adhesive patch,medicated 2 patch topical DAILY 15 Days Qty: 30 0RF Rx Instructions: leave on most painful area for up to 12 hrs oxycodone 5 mg tablet 5 mg PO TID PRN (Reason: pain) 30 Days Qty: 90 0RF Rx Instructions: Partial Fill upon patient request. Referrals: Claudia Villatoro MD [Primary Care Provider] - Interventions: ED Discharge Assessment Last Done: 08/06/23 14:21 Discharge Date/Time: 08/06/23 14:21 Print Language: Luxembourgish
[2023-08-06 12:20] VITALS: BP 112/59; PULSE 72; RESP 12; TEMP 36.9; O2SAT 93
[2023-08-06 13:58] VITALS: BP 99/52; PULSE 70; RESP 16; TEMP 36.9; O2SAT 98
== END 2023-08-06 14:21 | disposition home or self-care (01) ==
PROVIDERS: Emergency Provider Emergency Medicine; PCP Internal Medicine
DX: B34.9 Viral infection, unspecified (principal); R11.2 Nausea with vomiting, unspecified; N39.0 Urinary tract infection, site not specified; Z11.52 Encounter for screening for COVID-19; Z20.828 Contact with and (suspected) exposure to other viral communicable diseases; E11.9 Type 2 diabetes mellitus without complications; I10 Essential (primary) hypertension; D64.9 Anemia, unspecified; Z86.711 Personal history of pulmonary embolism; Z86.73 Personal history of transient ischemic attack (TIA), and cerebral infarction without residual deficits; Z79.01 Long term (current) use of anticoagulants; Z79.899 Other long term (current) drug therapy
CPT/HCPCS: 0241U; 80048; 80076; 81001; 83735; 85025; 87086; 96361; 96374; 96375; 99284; J2270; J2405

== ENCOUNTER 2023-08-22 01:31 | Inpatient (IN) | payer OTHER, SELFPAY ==
[2023-08-22] VITALS (8 sets, daily range): BP systolic 124–134; BP diastolic 59–80; PULSE 71–114; RESP 16–18; TEMP 36.8–36.9; O2SAT 94–100; BMI 36.8
--- NOTE | ~2023-08-22 | CT_ITS ---
EXAMINATION: CT ABDOMEN AND PELVIS WITHOUT CONTRAST CLINICAL INFORMATION: Abdomen pain. Left flank pain COMPARISON: Portions of a previous CT 06/14/23 TECHNIQUE: Multidetector volumetric imaging was performed from the superior aspect of the liver through the pubic symphysis. Sagittal and coronal reformatted images were obtained on the technologist's workstation. This CT examination was performed using dose optimization techniques as appropriate, variously including the following: *Automated exposure control *Adjustment of mA and/or kV according to patient size (this includes techniques or standardized protocols for targeted exams where dose is matched to indication/reason for exam; i.e. extremities or head) *Use of iterative reconstruction technique DLP: 734 mGy-cm FINDINGS: Digital fringe weaver demonstrates marked gaseous distention of large and small bowel LUNG BASES: No suspicious abnormality in the visualized lower chest. Small hiatal hernia. LIVER, GALLBLADDER, AND BILIARY TREE: No suspicious abnormality. There are surgical clips in the expected region of the gallbladder. No opaque biliary calculus PANCREAS: No suspicious abnormality SPLEEN: Within normal limits ADRENAL GLANDS: Normal KIDNEYS AND URETERS: There is no significant dilation of the urinary collecting system on either side. There is a 1 mm calcification at the junction of the upper pole and interpolar left kidney (series 5, image 61). There is some contour abnormality involving each kidney. There are multiple varying sized round renal masses. Most of these are fluid attenuating circumscribed and have no suspicious features consistent with simple cysts. Some are too small to characterize. There is a 2 mm calcification in the deep left pelvis (series 4, image 642; series 5, image 74; series 6, image 53). I cannot confirm stability. There is no periureteric or perinephric stranding. BLADDER: The bladder is moderately distended. No focal abnormality. GASTROINTESTINAL TRACT: There has been previous. Optic surgery. There are distended small bowel loops which contain semisolid material suggesting stasis. There is a large amount of fecal residue throughout the colon. There is no acute zone of transition. There is no abscess or localized fat stranding. ABDOMINAL WALL: Evidence of previous surgery. No bowel hernia. LYMPH NODES: There are no measurably enlarged abdominal or pelvic lymph nodes. There is no free intraperitoneal fluid. VASCULAR: There is no abdominal aortic aneurysm. PELVIC VISCERA: No suspicious abnormality. I am uncertain if a portion of the uterus may have been removed (partial hysterectomy). OSSEOUS STRUCTURES: There is a crescent of abnormal attenuation involving the weightbearing aspect of the left femoral head. I suspect avascular necrosis without collapse. Striated appearance at L4 consistent with hemangioma CT/CT abdomen pelvis wo IV con IMPRESSION: No dilation of the urinary collecting system. There is a 2 mm calcification at the expected region of the left ureterovesical junction. I cannot confirm stability. If this is a calculus, the size suggests this might pass spontaneously. Evidence of previous bariatric surgery with distended loops of bowel and semisolid material suggesting small bowel stasis. No abscess or discrete zone of transition. 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
--- NOTE | ~2023-08-22 | XR_ITS ---
EXAMINATION: XR CHEST CLINICAL INFORMATION: Productive cough COMPARISON: 05/16/2023 TECHNIQUE: Frontal view of the chest was obtained. FINDINGS: Lungs are hypoinflated. No focal consolidation is seen. Mild bronchovascular crowding is noted. No evidence of pneumothorax, significant pleural effusion, or overt pulmonary edema. Cardiac silhouette is prominent, likely accentuated by low lung volumes. No acute osseous findings are seen. XR/XR chest 1V IMPRESSION: Low lung volumes without focal consolidation.
[2023-08-22 02:34] LABS: Basophils Percent Auto 0.2 % (0-2); Eosinophils Percent Auto 0.3 % (0-4); Hematocrit 31.4 % (37.0-47.0); Hemoglobin 9.1 g/dl (12.0-16.0); Imm Gran Abs Auto 0.04 X10*3/uL (0.00-0.03); Imm Gran Pct Auto 0.4 % (0.0-0.4); Lymphocytes Absolute Auto 0.4 X10*3/uL (1.2-4.9); Lymphocytes Percent Auto 3.9 % (20-40); MANUAL DIFF FLAG SCAN; Mean Corpuscular Hemoglobin 22.1 pg (27.0-33.0); Mean Corpuscular Volume 76.4 fL (80.0-98.0); Mean Platelet Volume 8.1 fL (9.4-12.3); Monocytes Absolute Auto 0.2 X10*3/uL (0.1-1.2); Neutrophils Absolute Auto 9.9 x10*3/uL (2.0-8.3); Neutrophils Percent Auto 93.2 % (45-73); Platelet Count 321 X10*3/uL (160-400); Red Blood Count 4.11 X10*6/uL (4.20-5.50); Red Cell Distribution Width 17.8 % (11.0-16.0); SCAN SMEAR FLAG 1; White Blood Count 10.7 X10*3/uL (4.8-10.8)
[2023-08-22 02:35] LABS: Appearance Urine Clear; Color Urine Yellow; Glucose Urine UA Negative (Negative); Leukocyte Esterase Urine Small (1+) (Negative); Nitrite Urine Negative (Negative); PH 5.5 (5.0-9.0); UMIC TRIGGER UACC YES; Urine Blood Negative (Negative); Urine Ketones Negative (Negative); Urine Protein Negative (Neg-Trace)
[2023-08-22 02:46] LABS: Alanine Aminotransferase 16 U/L (0-31); Albumin Level 3.6 g/dL (3.5-5.0); Alkaline Phosphatase 103 U/L (39-117); Anion Gap 18 (12-20); Aspartate Amino Transferase 14 U/L (5-31); Bilirubin Total 0.2 mg/dL (0.0-1.0); Blood Urea Nitrogen 18 mg/dL (9-16); Calcium 9.7 mg/dL (8.4-10.2); Carbon Dioxide 15 mmol/L (22-29); Chloride 110 mmol/L (96-108); Estimated Glomerular Filt Rate 27; Glucose Random 152 mg/dL (60-115); Potassium 4.2 mmol/L (3.3-5.1); Sodium 139 mmol/L (135-145); Total Protein 6.4 g/dL (6.5-8.0)
[2023-08-22 02:49] LABS: Bacteria Urine None Seen (None Seen); Hyaline Casts Urine 0-2 /LPF (0-2); RBC Urine 0-2 /HPF (0-2); Squamous Epithelial Cell Urine 0-2 /HPF (0-2); UACC Culture Trigger YES; WBC Urine 0-5 /HPF (0-5)
[2023-08-22 03:03] LABS: SLIDE REVIEW VERIFIED
--- NOTE | 2023-08-22 06:32 | ED_ITS ---
HPI - General Adult General Chief complaint: General Medical Stated complaint: side pain, migraine, asthmatic Time Seen by Provider: 08/22/23 06:26 Source: patient Mode of arrival: ambulatory Limitations: no limitations History of Present Illness HPI narrative: 53 yo female with history of obesity s/p gastric bypass, asthma/COPD, BABATUNDE, osteoporosis, DM w/ neuropathy, TIA, hypothyroidism, hx PE who presents to the ER for evaluation of multiple complaints. She states for the last 6 days she has had worsening asthma symptoms and coughing. She has been taking abx, prednisone and using her inhaler and nebulizer machine at home with no improvement in her symptoms. She denies fever, chills, chest pain, productive cough or known sick contacts. She is non smoker. She also reports abdominal distention and constipation w/ last BM 4 days ago. She was trying to have a BM yesterday and vomited twice. She also reports increased urinary frequency, urgency and left sided flank pain for the last couple of days as well. She has pain in her bladder. No blood in her urine. MD complaint: SOB, cough, abd pain, urinary symptoms Onset (ago): day(s) Location: chest and abdomen Radiation: back Severity: moderate Severity scale (1-10): 6 Quality: stabbing and aching Pain Consistency: constant Relieving factors: none Exacerbating factors: other (coughing) Associated symptoms: cough, nausea/vomiting, shortness of breath and weakness Treatments prior to arrival: none Related Data Home Medications Medication Instructions Recorded Confirmed montelukast 10 mg tablet 10 mg PO BEDTIME 08/02/20 02/11/23 cyanocobalamin (vitamin B-12) 1,000 mcg PO DAILY 11/05/20 02/11/23 1,000 mcg tablet escitalopram oxalate 10 mg tablet 1 tab PO DAILY 08/21/22 02/11/23 zolpidem 10 mg tablet 1 tab PO BEDTIME PRN Insomnia 08/21/22 02/11/23 cholecalciferol (vitamin D3) 25 1 tab PO DAILY 11/28/22 02/11/23 mcg (1,000 unit) tablet valsartan 160 mg tablet 1 tab PO DAILY 11/28/22 02/11/23 betamethasone dipropionate 0.05 % 1 appl topical BID PRN psoriasis 02/12/23 lotion blood sugar diagnostic (FreeStyle #10 ea 02/12/23 Lite Strips) calcipotriene 0.005 % topical 1 appl topical BID PRN flares 02/12/23 ointment ferrous sulfate 325 mg (65 mg 325 mg PO DAILY 02/12/23 iron) tablet fluocinonide 0.05 % topical 1 appl topical BID PRN flares 02/12/23 ointment fluticasone propionate 50 50 mcg intranasal DAILY 02/12/23 mcg/actuation nasal spray,suspension hydroxyzine HCl 25 mg tablet 25 mg PO TID PRN itch 02/12/23 prednisone 10 mg tablet 30 mg PO DAILY 02/12/23 nebulizers 04/02/23 benzonatate 100 mg capsule 100 mg PO TID PRN Cough 08/22/23 loratadine 10 mg tablet 10 mg PO DAILY 08/22/23 omeprazole 40 mg capsule,delayed 40 mg PO BID 08/22/23 release quetiapine 400 mg tablet 400 mg PO BEDTIME 08/22/23 Previous Rx's Medication Instructions Recorded dicyclomine 20 mg tablet 20 mg PO QID PRN abdominal pain 06/27/22 #20 tabs albuterol sulfate 2.5 mg/3 mL 2.5 mg (3 mL) inhalation Q4H PRN 09/08/22 (0.083 %) solution for nebulization shortness of breath or wheezing 30 days #360 mL ondansetron 4 mg disintegrating 4 mg PO TID PRN nausea and 11/27/22 tablet vomiting 5 days #20 tabs zinc acetate 50 mg (zinc) capsule 100 mg (2 x 50 mg (zinc)) PO DAILY 12/02/22 (Galzin) 30 days #60 caps sucralfate 1 gram tablet 1 g PO TID PRN gastritis 14 days 02/17/23 #42 tabs naloxone 4 mg/actuation nasal spray 4 mg intranasal Q2M PRN opioid 02/24/23 overdose 1 day #2 ea budesonide 160 mcg-glycopyr 9 2 inh inhalation BID 30 days #10.7 04/02/23 mcg-formot 4.8 mcg/actuation HFA grams inhaler (Breztri Aerosphere) gabapentin 300 mg capsule 600 mg (2 x 300 mg) PO BID #120 04/14/23 caps apixaban 2.5 mg tablet (Eliquis) 2.5 mg PO BID #180 tabs 04/17/23 immune glob,gamm(IgG) 10 %-pro-IgA 40 g IV Q4W #400 mL 05/28/23 0 to 50 mcg/mL intravenous solution (Privigen) acetaminophen 500 mg tablet 500 mg PO Q6H PRN pain #20 tabs 06/09/23 lidocaine 5 % topical patch 2 patch topical DAILY 15 days #30 07/14/23 ea oxycodone 5 mg tablet 5 mg PO TID PRN pain 30 days #90 07/27/23 tabs Allergies Allergy/AdvReac Type Severity Reaction Status Date / Time No Known Allergies Allergy Verified 08/22/23 01:45 Review of Systems 2 Review of Systems: Yes all other systems are reviewed and are negative PMFSH Past Medical History Medical History Knee pain, left Left hip pain Upper respiratory infection Weight gain Constipation Acute bronchitis Abdominal pain Persistent cough COVID-19 History of peristent cough as a child Epigastric pain Bile salt-induced diarrhea Acute severe exacerbation of moderate persistent asthma History of COVID-19 Osteoporosis Spondylosis of cervical spine Asthma-COPD overlap syndrome Spondylosis of lumbar joint Nausea vomiting and diarrhea Disc degeneration, 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 Dizziness Headache Elevated lactic acid level Bronchitis Headache, migraine Asthma exacerbation Cough BABATUNDE (obstructive sleep apnea) Chronic pain syndrome Spondylosis of lumbar spine Low back pain Complex regional pain syndrome i of left lower limb Diabetic neuropathy Laryngotracheitis Essential hypertension Type 2 diabetes mellitus with unspecified complications Morbid obesity Anemia Back pain Pleuritic chest pain Fibromyalgia Hypothyroidism TIA (transient ischemic attack) Diet-controlled diabetes mellitus Depression Arthritis Sleep apnea Hypogammaglobulinemia Pulmonary embolism Surgical History History of esophagogastroduodenoscopy (EGD) Hx of colonoscopy S/P total abdominal hysterectomy History of cholecystectomy History of bariatric surgery Family History Family History Mother Diabetes Stroke Family/Other Diabetes Father Diabetes Maternal Aunt Cancer Social History Social History Household Members: Caregiver Housing: House Are you a primary rn urgent care to a significant other at home: No Do you presently have visiting nurse or other home services: No Alcohol intake: former Patient Tobacco Use Status: Never used Tobacco Smoked in Last 30 Days: No e-Cigarette/Vaping Use: Never Used Second Hand Smoke Exposure: No Use of substances other than those prescribed or required for medical reasons: No Advance Directives: No Advance Directives Information Provided: No Advance Directives Date on File: 05/23/21 service: No Current occupational status: unemployed and disabled Physical Exam ED Vital Signs: Vital Signs - 24 hr 08/22/23 01:38 08/22/23 04:56 08/22/23 08:31 Temperature 98.5 F 98.4 F Pulse Rate 114 H 91 87 Respiratory Rate 18 16 18 Blood Pressure 124/59 L 130/80 Pulse Oximetry 98 94 Oxygen Delivery Method Room Air Room Air 08/22/23 10:00 08/22/23 11:27 Temperature Pulse Rate 79 Respiratory Rate 18 Blood Pressure Pulse Oximetry 100 Oxygen Delivery Method Room Air BMI result Body Mass Index 36.8 Appearance: Alert. Oriented X3. No acute distress. Head: normocephalic, atraumatic. Eyes: Pupils equal, round and reactive to light. ENT: Pharynx normal. No tonsillar swelling or exudate. Neck: Normal inspection. Neck supple. CVS: Normal heart rate and rhythm. Pulses normal. Respiratory: No respiratory distress. Breath sounds coarse throughtout with scattered expiratory wheezing. Bronchospastic cough, dry Abdomen: Obese, Softly distended with mild diffuse tenderness, worse in LLQ, no rebound or guarding, decreased but present BS x4, +CVA tenderness on the left Skin: Skin warm and dry. Normal skin color. Normal skin turgor. No rashes. Extremities: No lower extremity edema. No joint swelling. Neuro/psych: Oriented X 3. No motor deficit. No sensory deficit. CN II-XII intact. Normal speech and cognition. Steady gait Medications Administered Discontinued Medications Generic Name Dose Route Start Last Admin Trade Name Freq PRN Reason Stop Dose Admin Albuterol Sulfate 2.5 mg/ 5 mg 08/22/23 06:47 08/22/23 08:29 Albuterol Sulfate 2.5 mg INHALE 08/22/23 06:48 5 mg ONCE ONE Administration Albuterol Sulfate 2.5 mg/ 5 mg 08/22/23 11:25 08/22/23 11:27 Albuterol Sulfate 2.5 mg INHALE 08/22/23 11:26 5 mg ONCE ONE Administration Guaifenesin/Codeine Phosphate 10 ml 08/22/23 06:39 08/22/23 08:09 Guaifen/Codeine Sf 200/20/10ml 10 Ml Liquid PO 08/22/23 06:40 10 ml ONCE ONE Administration Sodium Chloride 1,000 mls @ 999 mls/hr 08/22/23 06:45 08/22/23 08:24 Ns IVCONT 08/22/23 07:45 999 mls/hr .Q1H1M OMERO Administration Methylprednisolone Sodium Succinate 125 mg 08/22/23 06:39 08/22/23 08:09 Methylprednisolone Sod Succ 125 Mg/2 Ml Vial IVPUSH 08/22/23 06:40 125 mg ONCE ONE Administration Morphine Sulfate 4 mg 08/22/23 07:48 08/22/23 08:09 Morphine Sulfate 4 Mg/Ml Cartridge IVPUSH 08/22/23 07:49 4 mg ONCE ONE Administration Protocol Ondansetron HCl 4 mg 08/22/23 07:48 08/22/23 08:09 Ondansetron Hcl 4 Mg/2 Ml Vial IVPUSH 08/22/23 07:49 4 mg ONCE ONE Administration Polyethylene Glycol 17 gm 08/22/23 09:52 08/22/23 11:13 Polyethylene Glycol 3350 17 Gm Powd.Pack PO 08/22/23 09:53 17 gm ONCE ONE Administration Medical Decision Making Medical Decision Making MDM Narrative: 53 yo female with history of obesity s/p gastric bypass, asthma/COPD, BABATUNDE, osteoporosis, DM w/ neuropathy, TIA, hypothyroidism, hx PE who presents to the ER for evaluation of multiple complaints. She states for the last 6 days she has had worsening asthma symptoms and coughing. Also reports abd pain, flank pain, urinary symptoms and constipation. Labs showing JF w/ SCr 1.91. UA w/ small leukocyte esterase which she also had on 08/06 with negative urine culture. CXR without focal PNA. CT scan abd with distended loops of bowel but no evidence of obstruction. small 2mm kidney stone at UVJ on the left without hydro. Given IV morphine and zofran for nausea and pain. she is tolerating PO fluids She was also given neb, IV Steroids, cough medication. continues to be bronchospastic with wheezing. not hypoxic. will plan to admit for further management. Differential Diagnosis Differential Diagnoses: The differential diagnosis associated with the presentation includes sob/cough - acute asthma exacerbation, COPD exacerbation, PNA, bronchitis, Flu, COVID, other viral syndrome abd pain - constipation, ileus, fecal impaction, SBO, [place] syndrome flank pain - UTI, pyelonephritis, kidney stone, hydronephrosis Admission/Observation Consideration of admission/observation: Escalation of care including admission/observation considered Consult Healthcare Provider Management of the patient was discussed with: Hospitalist Lab Data MDM Lab Attestation statement: I reviewed the patient's lab results. jf with SCr 1.91 08/22/23 02:29 08/22/23 02:29 Labs: Lab Results 08/22/23 08/22/23 08/22/23 Range/Units 02:28 02:28 02:28 WBC (4.8-10.8) X10*3/uL RBC (4.20-5.50) X10*6/uL Hgb (12.0-16.0) g/dl Hct (37.0-47.0) % MCV (80.0-98.0) fL MCH (27.0-33.0) pg MCHC (31.0-35.0) g/dl RDW (11.0-16.0) % Plt Count (160-400) X10*3/uL MPV (9.4-12.3) fL Immature Gran % (Auto) (0.0-0.4) % Neut % (Auto) (45-73) % Lymph % (Auto) (20-40) % Creek % (Auto) (2-11) % Eos % (Auto) (0-4) % Baso % (Auto) (0-2) % Lymph # (Auto) (1.2-4.9) X10*3/uL [place] # (Auto) (0.1-1.2) X10*3/uL Eos # (Auto) (0.0-0.4) X10*3/uL Baso # (Auto) (0.0-0.2) X10*3/uL Abs Immat Gran (auto) (0.00-0.03) X10*3/uL Absolute Neuts (auto) (2.0-8.3) x10*3/uL Absolute Nucleated RBC (0.0-0.012) X10*3/uL Nucleated RBC % (auto) (0.0-0.2) /100WBC Smear Tech's Comments Sodium (135-145) mmol/L Potassium (3.3-5.1) mmol/L Chloride (96-108) mmol/L Carbon Dioxide (22-29) mmol/L Anion Gap (12-20) BUN (9-16) mg/dL Creatinine (0.5-1.4) mg/dL Estim Creat Clear Calc Estimated GFR Random Glucose (60-115) mg/dL Calcium (8.4-10.2) mg/dL Total Bilirubin (0.0-1.0) mg/dL AST (5-31) U/L ALT (0-31) U/L Alkaline Phosphatase (39-117) U/L Total Protein (6.5-8.0) g/dL Albumin (3.5-5.0) g/dL Urine Color Yellow Cancelled Urine Appearance Clear Cancelled Urine pH 5.5 (5.0-9.0) Ur Specific [place] (1.005-1.025) Urine Protein (Neg-Trace) mg/dL Urine Glucose (UA) (Negative) mg/dL Urine Ketones (Negative) mg/dL Urine Blood (Negative) Urine Nitrite (Negative) Ur Leukocyte Esterase (Negative) Urine RBC (0-2) /HPF Urine WBC (0-5) /HPF Urine WBC Clumps Ur Squamous Epith Cells (0-2) /HPF Ur Transition Epith Cell Ur Renal Epithelial Cell Calcium Oxalate Crystal Leucine Crystals Cystine Crystals Tyrosine Crystals Other Crystals Urine Bacteria (None Seen) Urine Parasites Bilirubin Casts Epithelial Casts Fatty Casts Hyaline Casts (0-2) /LPF Granular Casts Waxy Casts Broad Casts RBC Casts WBC Casts Other Casts Urine Trichomonas Urine Yeast 08/22/23 08/22/23 08/22/23 Range/Units 02:28 02:28 02:28 WBC (4.8-10.8) X10*3/uL RBC (4.20-5.50) X10*6/uL Hgb (12.0-16.0) g/dl Hct (37.0-47.0) % MCV (80.0-98.0) fL MCH (27.0-33.0) pg MCHC (31.0-35.0) g/dl RDW (11.0-16.0) % Plt Count (160-400) X10*3/uL MPV (9.4-12.3) fL Immature Gran % (Auto) (0.0-0.4) % Neut % (Auto) (45-73) % Lymph % (Auto) (20-40) % Creek % (Auto) (2-11) % Eos % (Auto) (0-4) % Baso % (Auto) (0-2) % Lymph # (Auto) (1.2-4.9) X10*3/uL [place] # (Auto) (0.1-1.2) X10*3/uL Eos # (Auto) (0.0-0.4) X10*3/uL Baso # (Auto) (0.0-0.2) X10*3/uL Abs Immat Gran (auto) (0.00-0.03) X10*3/uL Absolute Neuts (auto) (2.0-8.3) x10*3/uL Absolute Nucleated RBC (0.0-0.012) X10*3/uL Nucleated RBC % (auto) (0.0-0.2) /100WBC Smear Tech's Comments Sodium (135-145) mmol/L Potassium (3.3-5.1) mmol/L Chloride (96-108) mmol/L Carbon Dioxide (22-29) mmol/L Anion Gap (12-20) BUN (9-16) mg/dL Creatinine (0.5-1.4) mg/dL Estim Creat Clear Calc Estimated GFR Random Glucose (60-115) mg/dL Calcium (8.4-10.2) mg/dL Total Bilirubin (0.0-1.0) mg/dL AST (5-31) U/L ALT (0-31) U/L Alkaline Phosphatase (39-117) U/L Total Protein (6.5-8.0) g/dL Albumin (3.5-5.0) g/dL Urine Color Urine Appearance Urine pH Cancelled (5.0-9.0) Ur Specific [place] 1.010 Cancelled (1.005-1.025) Urine Protein Negative Cancelled (Neg-Trace) mg/dL Urine Glucose (UA) Negative (Negative) mg/dL Urine Ketones (Negative) mg/dL Urine Blood (Negative) Urine Nitrite (Negative) Ur Leukocyte Esterase (Negative) Urine RBC (0-2) /HPF Urine WBC (0-5) /HPF Urine WBC Clumps Ur Squamous Epith Cells (0-2) /HPF Ur Transition Epith Cell Ur Renal Epithelial Cell Calcium Oxalate Crystal Leucine Crystals Cystine Crystals Tyrosine Crystals Other Crystals Urine Bacteria (None Seen) Urine Parasites Bilirubin Casts Epithelial Casts Fatty Casts Hyaline Casts (0-2) /LPF Granular Casts Waxy Casts Broad Casts RBC Casts WBC Casts Other Casts Urine Trichomonas Urine Yeast 08/22/23 08/22/23 08/22/23 Range/Units 02:28 02:28 02:28 WBC (4.8-10.8) X10*3/uL RBC (4.20-5.50) X10*6/uL Hgb (12.0-16.0) g/dl Hct (37.0-47.0) % MCV (80.0-98.0) fL MCH (27.0-33.0) pg MCHC (31.0-35.0) g/dl RDW (11.0-16.0) % Plt Count (160-400) X10*3/uL MPV (9.4-12.3) fL Immature Gran % (Auto) (0.0-0.4) % Neut % (Auto) (45-73) % Lymph % (Auto) (20-40) % Creek % (Auto) (2-11) % Eos % (Auto) (0-4) % Baso % (Auto) (0-2) % Lymph # (Auto) (1.2-4.9) X10*3/uL [place] # (Auto) (0.1-1.2) X10*3/uL Eos # (Auto) (0.0-0.4) X10*3/uL Baso # (Auto) (0.0-0.2) X10*3/uL Abs Immat Gran (auto) (0.00-0.03) X10*3/uL Absolute Neuts (auto) (2.0-8.3) x10*3/uL Absolute Nucleated RBC (0.0-0.012) X10*3/uL Nucleated RBC % (auto) (0.0-0.2) /100WBC Smear Tech's Comments Sodium (135-145) mmol/L Potassium (3.3-5.1) mmol/L Chloride (96-108) mmol/L Carbon Dioxide (22-29) mmol/L Anion Gap (12-20) BUN (9-16) mg/dL Creatinine (0.5-1.4) mg/dL Estim Creat Clear Calc Estimated GFR Random Glucose (60-115) mg/dL Calcium (8.4-10.2) mg/dL Total Bilirubin (0.0-1.0) mg/dL AST (5-31) U/L ALT (0-31) U/L Alkaline Phosphatase (39-117) U/L Total Protein (6.5-8.0) g/dL Albumin (3.5-5.0) g/dL Urine Color Urine Appearance Urine pH (5.0-9.0) Ur Specific [place] (1.005-1.025) Urine Protein (Neg-Trace) mg/dL Urine Glucose (UA) Cancelled (Negative) mg/dL Urine Ketones Negative Cancelled (Negative) mg/dL Urine Blood Negative Cancelled (Negative) Urine Nitrite Negative (Negative) Ur Leukocyte Esterase (Negative) Urine RBC (0-2) /HPF Urine WBC (0-5) /HPF Urine WBC Clumps Ur Squamous Epith Cells (0-2) /HPF Ur Transition Epith Cell Ur Renal Epithelial Cell Calcium Oxalate Crystal Leucine Crystals Cystine Crystals Tyrosine Crystals Other Crystals Urine Bacteria (None Seen) Urine Parasites Bilirubin Casts Epithelial Casts Fatty Casts Hyaline Casts (0-2) /LPF Granular Casts Waxy Casts Broad Casts RBC Casts WBC Casts Other Casts Urine Trichomonas Urine Yeast 08/22/23 08/22/23 08/22/23 Range/Units 02:28 02:28 02:28 WBC (4.8-10.8) X10*3/uL RBC (4.20-5.50) X10*6/uL Hgb (12.0-16.0) g/dl Hct (37.0-47.0) % MCV (80.0-98.0) fL MCH (27.0-33.0) pg MCHC (31.0-35.0) g/dl RDW (11.0-16.0) % Plt Count (160-400) X10*3/uL MPV (9.4-12.3) fL Immature Gran % (Auto) (0.0-0.4) % Neut % (Auto) (45-73) % Lymph % (Auto) (20-40) % [place] % (Auto) (2-11) % Eos % (Auto) (0-4) % Baso % (Auto) (0-2) % Lymph # (Auto) (1.2-4.9) X10*3/uL [place] # (Auto) (0.1-1.2) X10*3/uL Eos # (Auto) (0.0-0.4) X10*3/uL Baso # (Auto) (0.0-0.2) X10*3/uL Abs Immat Gran (auto) (0.00-0.03) X10*3/uL Absolute Neuts (auto) (2.0-8.3) x10*3/uL Absolute Nucleated RBC (0.0-0.012) X10*3/uL Nucleated RBC % (auto) (0.0-0.2) /100WBC Smear Tech's Comments Sodium (135-145) mmol/L Potassium (3.3-5.1) mmol/L Chloride (96-108) mmol/L Carbon Dioxide (22-29) mmol/L Anion Gap (12-20) BUN (9-16) mg/dL Creatinine (0.5-1.4) mg/dL Estim Creat Clear Calc Estimated GFR Random Glucose (60-115) mg/dL Calcium (8.4-10.2) mg/dL Total Bilirubin (0.0-1.0) mg/dL AST (5-31) U/L ALT (0-31) U/L Alkaline Phosphatase (39-117) U/L Total Protein (6.5-8.0) g/dL Albumin (3.5-5.0) g/dL Urine Color Urine Appearance Urine pH (5.0-9.0) Ur Specific [place] (1.005-1.025) Urine Protein (Neg-Trace) mg/dL Urine Glucose (UA) (Negative) mg/dL Urine Ketones (Negative) mg/dL Urine Blood (Negative) Urine Nitrite Cancelled (Negative) Ur Leukocyte Esterase Small (1+) H Cancelled (Negative) Urine RBC 0-2 Cancelled (0-2) /HPF Urine WBC 0-5 (0-5) /HPF Urine WBC Clumps Ur Squamous Epith Cells (0-2) /HPF Ur Transition Epith Cell Ur Renal Epithelial Cell Calcium Oxalate Crystal Leucine Crystals Cystine Crystals Tyrosine Crystals Other Crystals Urine Bacteria (None Seen) Urine Parasites Bilirubin Casts Epithelial Casts Fatty Casts Hyaline Casts (0-2) /LPF Granular Casts Waxy Casts Broad Casts RBC Casts WBC Casts Other Casts Urine Trichomonas Urine Yeast 08/22/23 08/22/23 08/22/23 Range/Units 02:28 02:28 02:28 WBC (4.8-10.8) X10*3/uL RBC (4.20-5.50) X10*6/uL Hgb (12.0-16.0) g/dl Hct (37.0-47.0) % MCV (80.0-98.0) fL MCH (27.0-33.0) pg MCHC (31.0-35.0) g/dl RDW (11.0-16.0) % Plt Count (160-400) X10*3/uL MPV (9.4-12.3) fL Immature Gran % (Auto) (0.0-0.4) % Neut % (Auto) (45-73) % Lymph % (Auto) (20-40) % [place] % (Auto) (2-11) % Eos % (Auto) (0-4) % Baso % (Auto) (0-2) % Lymph # (Auto) (1.2-4.9) X10*3/uL [place] # (Auto) (0.1-1.2) X10*3/uL Eos # (Auto) (0.0-0.4) X10*3/uL Baso # (Auto) (0.0-0.2) X10*3/uL Abs Immat Gran (auto) (0.00-0.03) X10*3/uL Absolute Neuts (auto) (2.0-8.3) x10*3/uL Absolute Nucleated RBC (0.0-0.012) X10*3/uL Nucleated RBC % (auto) (0.0-0.2) /100WBC Smear Tech's Comments Sodium (135-145) mmol/L Potassium (3.3-5.1) mmol/L Chloride (96-108) mmol/L Carbon Dioxide (22-29) mmol/L Anion Gap (12-20) BUN (9-16) mg/dL Creatinine (0.5-1.4) mg/dL Estim Creat Clear Calc Estimated GFR Random Glucose (60-115) mg/dL Calcium (8.4-10.2) mg/dL Total Bilirubin (0.0-1.0) mg/dL AST (5-31) U/L ALT (0-31) U/L Alkaline Phosphatase (39-117) U/L Total Protein (6.5-8.0) g/dL Albumin (3.5-5.0) g/dL Urine Color Urine Appearance Urine pH (5.0-9.0) Ur Specific [place] (1.005-1.025) Urine Protein (Neg-Trace) mg/dL Urine Glucose (UA) (Negative) mg/dL Urine Ketones (Negative) mg/dL Urine Blood (Negative) Urine Nitrite (Negative) Ur Leukocyte Esterase (Negative) Urine RBC (0-2) /HPF Urine WBC Cancelled (0-5) /HPF Urine WBC Clumps Cancelled Ur Squamous Epith Cells 0-2 Cancelled (0-2) /HPF Ur Transition Epith Cell Cancelled Ur Renal Epithelial Cell Cancelled Calcium Oxalate Crystal Cancelled Leucine Crystals Cancelled Cystine Crystals Cancelled Tyrosine Crystals Cancelled Other Crystals Cancelled Urine Bacteria None Seen Cancelled (None Seen) Urine Parasites Cancelled Bilirubin Casts Cancelled Epithelial Casts Cancelled Fatty Casts Cancelled Hyaline Casts 0-2 (0-2) /LPF Granular Casts Waxy Casts Broad Casts RBC Casts WBC Casts Other Casts Urine Trichomonas Urine Yeast 08/22/23 08/22/23 Range/Units 02:28 02:29 WBC 10.7 (4.8-10.8) X10*3/uL RBC 4.11 L (4.20-5.50) X10*6/uL Hgb 9.1 L (12.0-16.0) g/dl Hct 31.4 L (37.0-47.0) % MCV 76.4 L (80.0-98.0) fL MCH 22.1 L (27.0-33.0) pg MCHC 29.0 L (31.0-35.0) g/dl RDW 17.8 H (11.0-16.0) % Plt Count 321 (160-400) X10*3/uL MPV 8.1 L (9.4-12.3) fL Immature Gran % (Auto) 0.4 (0.0-0.4) % Neut % (Auto) 93.2 H (45-73) % Lymph % (Auto) 3.9 L (20-40) % [place] % (Auto) 2.0 (2-11) % Eos % (Auto) 0.3 (0-4) % Baso % (Auto) 0.2 (0-2) % Lymph # (Auto) 0.4 L (1.2-4.9) X10*3/uL [place] # (Auto) 0.2 (0.1-1.2) X10*3/uL Eos # (Auto) 0.0 (0.0-0.4) X10*3/uL Baso # (Auto) 0.0 (0.0-0.2) X10*3/uL Abs Immat Gran (auto) 0.04 H (0.00-0.03) X10*3/uL Absolute Neuts (auto) 9.9 H (2.0-8.3) x10*3/uL Absolute Nucleated RBC 0.000 (0.0-0.012) X10*3/uL Nucleated RBC % (auto) 0.0 (0.0-0.2) /100WBC Smear Tech's Comments VERIFIED Sodium 139 (135-145) mmol/L Potassium 4.2 (3.3-5.1) mmol/L Chloride 110 H (96-108) mmol/L Carbon Dioxide 15 L (22-29) mmol/L Anion Gap 18 (12-20) BUN 18 H (9-16) mg/dL Creatinine 1.91 H (0.5-1.4) mg/dL Estim Creat Clear Calc 30.0 Estimated GFR 27 Random Glucose 152 H (60-115) mg/dL Calcium 9.7 (8.4-10.2) mg/dL Total Bilirubin 0.2 (0.0-1.0) mg/dL AST 14 (5-31) U/L ALT 16 (0-31) U/L Alkaline Phosphatase 103 (39-117) U/L Total Protein 6.4 L (6.5-8.0) g/dL Albumin 3.6 (3.5-5.0) g/dL Urine Color Urine Appearance Urine pH (5.0-9.0) Ur Specific [place] (1.005-1.025) Urine Protein (Neg-Trace) mg/dL Urine Glucose (UA) (Negative) mg/dL Urine Ketones (Negative) mg/dL Urine Blood (Negative) Urine Nitrite (Negative) Ur Leukocyte Esterase (Negative) Urine RBC (0-2) /HPF Urine WBC (0-5) /HPF Urine WBC Clumps Ur Squamous Epith Cells (0-2) /HPF Ur Transition Epith Cell Ur Renal Epithelial Cell Calcium Oxalate Crystal Leucine Crystals Cystine Crystals Tyrosine Crystals Other Crystals Urine Bacteria (None Seen) Urine Parasites Bilirubin Casts Epithelial Casts Fatty Casts Hyaline Casts Cancelled (0-2) /LPF Granular Casts Cancelled Waxy Casts Cancelled Broad Casts Cancelled RBC Casts Cancelled WBC Casts Cancelled Other Casts Cancelled Urine Trichomonas Cancelled Urine Yeast Cancelled Independent Interpretation I performed an independent interpretation of an: EKG, Plain X-Ray and CT Scan Radiology Impression Discussion of test interpretation with radiology: I have reviewed the radiologist's reading. Radiologist Impression: EXAMINATION: CT ABDOMEN AND PELVIS WITHOUT CONTRAST CLINICAL INFORMATION: Abdomen pain. Left flank pain COMPARISON: Portions of a previous CT 06/14/23 TECHNIQUE: Multidetector volumetric imaging was performed from the superior aspect of the liver through the pubic symphysis. Sagittal and coronal reformatted images were obtained on the technologist's workstation. This CT examination was performed using dose optimization techniques as appropriate, variously including the following: *Automated exposure control *Adjustment of mA and/or kV according to patient size (this includes techniques or standardized protocols for targeted exams where dose is matched to indication/reason for exam; i.e. extremities or head) *Use of iterative reconstruction technique DLP: 734 mGy-cm FINDINGS: Digital fibre technologist demonstrates marked gaseous distention of large and small bowel LUNG BASES: No suspicious abnormality in the visualized lower chest. Small hiatal hernia. LIVER, GALLBLADDER, AND BILIARY TREE: No suspicious abnormality. There are surgical clips in the expected region of the gallbladder. No opaque biliary calculus PANCREAS: No suspicious abnormality SPLEEN: Within normal limits ADRENAL GLANDS: Normal KIDNEYS AND URETERS: There is no significant dilation of the urinary collecting system on either side. There is a 1 mm calcification at the junction of the upper pole and interpolar left kidney (series 5, image 61). There is some contour abnormality involving each kidney. There are multiple varying sized round renal masses. Most of these are fluid attenuating circumscribed and have no suspicious features consistent with simple cysts. Some are too small to characterize. There is a 2 mm calcification in the deep left pelvis (series 4, image 642; series 5, image 74; series 6, image 53). I cannot confirm stability. There is no periureteric or perinephric stranding. BLADDER: The bladder is moderately distended. No focal abnormality. GASTROINTESTINAL TRACT: There has been previous. Optic surgery. There are distended small bowel loops which contain semisolid material suggesting stasis. There is a large amount of fecal residue throughout the colon. There is no acute zone of transition. There is no abscess or localized fat stranding. ABDOMINAL WALL: Evidence of previous surgery. No bowel hernia. LYMPH NODES: There are no measurably enlarged abdominal or pelvic lymph nodes. There is no free intraperitoneal fluid. VASCULAR: There is no abdominal aortic aneurysm. PELVIC VISCERA: No suspicious abnormality. I am uncertain if a portion of the uterus may have been removed (partial hysterectomy). OSSEOUS STRUCTURES: There is a crescent of abnormal attenuation involving the weightbearing aspect of the left femoral head. I suspect avascular necrosis without collapse. Striated appearance at L4 consistent with hemangioma CT/CT abdomen pelvis wo IV con IMPRESSION: No dilation of the urinary collecting system. There is a 2 mm calcification at the expected region of the left ureterovesical junction. I cannot confirm stability. If this is a calculus, the size suggests this might pass spontaneously. Evidence of previous bariatric surgery with distended loops of bowel and semisolid material suggesting small bowel stasis. No abscess or discrete zone of transition. 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 Time includes review of lab data, radiology results, discussion with consultants, and monitoring for potential decompensation. Intervention performed as documented. Discharge Plan Discharge Clinical Impression: Kidney stone, JF (acute kidney injury), Ileus Asthma exacerbation Qualifiers: Asthma severity: unspecified severity Asthma persistence: unspecified Qualified Code(s): J45.901 - Unspecified asthma with (acute) exacerbation Patient Disposition: Admitted As Inpatient
[2023-08-22] MEDS: guaiFEN/Codeine SF 200/20/10ML 10 ML LIQUID PO (08:09)
[2023-08-22] MEDS: Morphine Sulfate 4 MG/ML CARTRIDGE IVPUSH ×2 (08:09→14:49)
[2023-08-22] MEDS: methylPREDNISolone Sod Succ 125 MG/2 ML VIAL IVPUSH (08:09)
[2023-08-22] MEDS: ondansetron HCL 4 MG/2 ML VIAL IVPUSH (08:09)
[2023-08-22] MEDS: 0.9 % Sodium Chloride 1,000 ML 999 ML IVCONT (08:24)
[2023-08-22] MEDS: Albuterol Sulfate 2.5 MG, Albuterol Sulfate (0.083%) 2.5 MG 5 MG INHALE ×2 (08:29→11:27)
[2023-08-22] MEDS: polyethylene glycoL 3350 17 GM POWD.PACK PO (11:13)
--- NOTE | 2023-08-22 11:17 | PC.NURSE ---
Patient with episode of coughing, wheezing heard bilat. sating 100% on RA. Respiratory called, patient ambulating to bathroom at this time
--- NOTE | 2023-08-22 11:24 | P.HPHOSP_ITS ---
History of Present Illness Date of Service: 08/22/23 Attending physician on admission: Kelly Boo Chief Complaint: Shortness of breath Pt is a 53-year-old female with a PMH significant for?asthma/COPD overlap syndrome, chronic pain syndrome, complex regional pain syndrome, BABATUNDE, HTN, hx of TIA, hypothyroidism, fibromyalgia, hypogammaglobulinemia, s/p gastric bypass, and hx of PE on Eliquis among others who presents to the ED with?multiple issues. Pt complains of increasing SOB, PICKETT, cough, and wheezing for the past six days. The patient has been taking prednisone 10mg daily, using her inhalers and nebulizer treatments without significant relief. Patient states she simply cannot breathe as is having a difficult time performing ADLs. Subjective fever and chills at home. Pt also complains of abdominal pain and bloating x4days with nausea and 1-2 episodes of vomiting yesterday. Patient continued to experience nausea today with no vomiting, no has been able to drink some apple juice today. Patient states last bowel movement was 4 days ago. She has also been having sided flank pain the past few days with polyuria, dysuria, and increased urinary urgency. Denies any hematuria. No chest pain/pressure, palpitations. In the ED patient was afebrile but tachycardic up to 114, satting at 98% on RA. Labs were significant for H&H 9.1/31.4, bicarb 15, creatinine 1.91. UA negative for UTI. CXR showed low lung volumes without focal consolidation. CT of abdomen and pelvis found no dilation of urinary collecting system but a 2 mm calcification at the left ureterovesical junction, okay also found distended loops of bowel and semi solid material suggesting small bowel stasis, no abscesses or discrete to transition zones, being an incidentally found left femoral head avascular necrosis without collapse. Pt was treated with and Solu- Medrol, guaifenesin, morphine, ondansetron, IVF, DuoNebs, and MiraLax. Pt will be admitted to the hospital for treatment and further evaluation of acute asthma/COPD overlap exacerbation, JF, and ileus. Review of Systems 2 Review of Systems: SOB, PICKETT, cough Abdominal pain, nausea, vomiting Constipation x4 days Left-sided flank pain, dysuria, polyuria, increased urgency PMFSH Medical History Knee pain, left Left hip pain Upper respiratory infection Weight gain Constipation Acute bronchitis Abdominal pain Persistent cough COVID-19 History of peristent cough as a child Epigastric pain Bile salt-induced diarrhea Acute severe exacerbation of moderate persistent asthma History of COVID-19 Osteoporosis Spondylosis of cervical spine Asthma-COPD overlap syndrome Spondylosis of lumbar joint Nausea vomiting and diarrhea Disc degeneration, 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 Dizziness Headache Elevated lactic acid level Bronchitis Headache, migraine Asthma exacerbation Cough BABATUNDE (obstructive sleep apnea) Chronic pain syndrome Spondylosis of lumbar spine Low back pain Complex regional pain syndrome i of left lower limb Diabetic neuropathy Laryngotracheitis Essential hypertension Type 2 diabetes mellitus with unspecified complications Morbid obesity Anemia Back pain Pleuritic chest pain Fibromyalgia Hypothyroidism TIA (transient ischemic attack) Diet-controlled diabetes mellitus Depression Arthritis Sleep apnea Hypogammaglobulinemia Pulmonary embolism Family History Mother Diabetes Stroke Family/Other Diabetes Father Diabetes Maternal Aunt Cancer Surgical History History of esophagogastroduodenoscopy (EGD) Hx of colonoscopy S/P total abdominal hysterectomy History of cholecystectomy History of bariatric surgery Social History Household Members: Caregiver Housing: House Are you a primary primary care nurse to a significant other at home: No Do you presently have visiting nurse or other home services: No Alcohol intake: former Patient Tobacco Use Status: Never used Tobacco Smoked in Last 30 Days: No e-Cigarette/Vaping Use: Never Used Second Hand Smoke Exposure: No Use of substances other than those prescribed or required for medical reasons: No Advance Directives: No Advance Directives Information Provided: No Advance Directives Date on File: 05/23/21 service: No Current occupational status: unemployed and disabled Meds Allergies Allergy/AdvReac Type Severity Reaction Status Date / Time No Known Allergies Allergy Verified 08/22/23 01:45 Home Medications Medication Instructions Recorded Confirmed Last Taken Type montelukast 10 mg tablet 10 mg PO BEDTIME 08/02/20 08/22/23 08/21/23 History cyanocobalamin (vitamin B-12) 1,000 mcg PO DAILY 11/05/20 08/22/23 08/21/23 History 1,000 mcg tablet escitalopram oxalate 10 mg tablet 1 tab PO DAILY 08/21/22 08/22/23 08/21/23 History zolpidem 10 mg tablet 1 tab PO BEDTIME PRN Insomnia 08/21/22 08/22/23 11/26/22 History cholecalciferol (vitamin D3) 25 1 tab PO DAILY 11/28/22 08/22/23 08/21/23 History mcg (1,000 unit) tablet valsartan 160 mg tablet 1 tab PO DAILY 11/28/22 08/22/23 08/21/23 History betamethasone dipropionate 0.05 % 1 appl topical BID PRN psoriasis 02/12/23 08/22/23 Unknown History lotion blood sugar diagnostic (Freeyle #10 ea 02/12/23 08/22/23 Unknown History Lite Strips) calcipotriene 0.005 % topical 1 appl topical BID PRN flares 02/12/23 08/22/23 Unknown History ointment fluocinonide 0.05 % topical 1 appl topical BID PRN flares 02/12/23 08/22/23 Unknown History ointment fluticasone propionate 50 50 mcg intranasal DAILY 02/12/23 08/22/23 08/21/23 History mcg/actuation nasal spray,suspension hydroxyzine HCl 25 mg tablet 25 mg PO TID PRN itch 02/12/23 08/22/23 Unknown History prednisone 10 mg tablet 10 mg PO BID 02/12/23 08/22/23 08/21/23 History nebulizers 04/02/23 08/22/23 Unknown History benzonatate 100 mg capsule 100 mg PO TID PRN Cough 08/22/23 08/22/23 Unknown History lidocaine 5 % topical patch 1 patch topical BID 08/22/23 08/22/23 08/21/23 History loratadine 10 mg tablet 10 mg PO DAILY 08/22/23 08/22/23 08/21/23 History omeprazole 40 mg capsule,delayed 40 mg PO BID PRN Acid Reflux 08/22/23 08/22/23 Unknown History release quetiapine 400 mg tablet 400 mg PO BEDTIME 08/22/23 08/22/23 08/21/23 History Physical Exam 2 Vital Signs and Narrative: Vital Signs: Last Vital Signs Temp 98.4 F 08/22/23 04:56 Pulse 87 08/22/23 08:31 Resp 18 08/22/23 08:31 BP 130/80 08/22/23 04:56 Pulse Ox 100 08/22/23 10:00 O2 Del Method Room Air 08/22/23 10:00 BMI result Body Mass Index 36.8 Constitutional: Alert, looks uncomfortable, in mild respiratory distress. Mental Status: Oriented to person, place and time. Eyes: Pupils are equal, round, and reactive to light. Ear, Nose, and Throat: Oropharynx clear, mucous membranes moist. Ears and nose without deformities. Trachea midline. Respiratory: Significant expiratory wheezing. Wet sounding cough. Cardiovascular: S1, S2 regular. No murmurs, rubs, or gallops. Gastrointestinal: Abdomen soft, diffusely tender, mild distension. Hypoactive bowel sounds. Neurologic: Cranial nerves II-XII are grossly intact bilaterally. No focal neurological deficits. Moves all extremities spontaneously. Back: No CVA tenderness. Skin: No rashes or lesions noted. Musculoskeletal: No cyanosis or clubbing. Extremities: No edema. Psychiatric: Normal mood and affect. Results Labs 08/22/23 02:29 08/22/23 02:29 Labs: Laboratory Results - last 24 hr 08/22/23 08/22/23 08/22/23 02:28 02:28 02:28 MCV MCH MCHC RDW Plt Count MPV Immature Gran % (Auto) Neut % (Auto) Lymph % (Auto) Cooper % (Auto) Eos % (Auto) Baso % (Auto) Lymph # (Auto) Cooper # (Auto) Eos # (Auto) Baso # (Auto) Abs Immat Gran (auto) Absolute Neuts (auto) Absolute Nucleated RBC Nucleated RBC % (auto) Smear Tech's Comments Anion Gap Estim Creat Clear Calc Estimated GFR Random Glucose Calcium Total Bilirubin AST ALT Alkaline Phosphatase Total Protein Albumin Urine Color Yellow Cancelled Urine Appearance Clear Cancelled Urine pH 5.5 Ur Specific [place] Urine Protein Urine Glucose (UA) Urine Ketones Urine Blood Urine Nitrite Ur Leukocyte Esterase Urine RBC Urine WBC Urine WBC Clumps Ur Squamous Epith Cells Ur Transition Epith Cell Ur Renal Epithelial Cell Calcium Oxalate Crystal Leucine Crystals Cystine Crystals Tyrosine Crystals Other Crystals Urine Bacteria Urine Parasites Bilirubin Casts Epithelial Casts Fatty Casts Hyaline Casts Granular Casts Waxy Casts Broad Casts RBC Casts WBC Casts Other Casts Urine Trichomonas Urine Yeast 08/22/23 08/22/23 08/22/23 02:28 02:28 02:28 MCV MCH MCHC RDW Plt Count MPV Immature Gran % (Auto) Neut % (Auto) Lymph % (Auto) Cooper % (Auto) Eos % (Auto) Baso % (Auto) Lymph # (Auto) Cooper # (Auto) Eos # (Auto) Baso # (Auto) Abs Immat Gran (auto) Absolute Neuts (auto) Absolute Nucleated RBC Nucleated RBC % (auto) Smear Tech's Comments Anion Gap Estim Creat Clear Calc Estimated GFR Random Glucose Calcium Total Bilirubin AST ALT Alkaline Phosphatase Total Protein Albumin Urine Color Urine Appearance Urine pH Cancelled Ur Specific [place] 1.010 Cancelled Urine Protein Negative Cancelled Urine Glucose (UA) Negative Urine Ketones Urine Blood Urine Nitrite Ur Leukocyte Esterase Urine RBC Urine WBC Urine WBC Clumps Ur Squamous Epith Cells Ur Transition Epith Cell Ur Renal Epithelial Cell Calcium Oxalate Crystal Leucine Crystals Cystine Crystals Tyrosine Crystals Other Crystals Urine Bacteria Urine Parasites Bilirubin Casts Epithelial Casts Fatty Casts Hyaline Casts Granular Casts Waxy Casts Broad Casts RBC Casts WBC Casts Other Casts Urine Trichomonas Urine Yeast 08/22/23 08/22/23 08/22/23 02:28 02:28 02:28 MCV MCH MCHC RDW Plt Count MPV Immature Gran % (Auto) Neut % (Auto) Lymph % (Auto) Cooper % (Auto) Eos % (Auto) Baso % (Auto) Lymph # (Auto) Cooper # (Auto) Eos # (Auto) Baso # (Auto) Abs Immat Gran (auto) Absolute Neuts (auto) Absolute Nucleated RBC Nucleated RBC % (auto) Smear Tech's Comments Anion Gap Estim Creat Clear Calc Estimated GFR Random Glucose Calcium Total Bilirubin AST ALT Alkaline Phosphatase Total Protein Albumin Urine Color Urine Appearance Urine pH Ur Specific [place] Urine Protein Urine Glucose (UA) Cancelled Urine Ketones Negative Cancelled Urine Blood Negative Cancelled Urine Nitrite Negative Ur Leukocyte Esterase Urine RBC Urine WBC Urine WBC Clumps Ur Squamous Epith Cells Ur Transition Epith Cell Ur Renal Epithelial Cell Calcium Oxalate Crystal Leucine Crystals Cystine Crystals Tyrosine Crystals Other Crystals Urine Bacteria Urine Parasites Bilirubin Casts Epithelial Casts Fatty Casts Hyaline Casts Granular Casts Waxy Casts Broad Casts RBC Casts WBC Casts Other Casts Urine Trichomonas Urine Yeast 08/22/23 08/22/23 08/22/23 02:28 02:28 02:28 MCV MCH MCHC RDW Plt Count MPV Immature Gran % (Auto) Neut % (Auto) Lymph % (Auto) Cooper % (Auto) Eos % (Auto) Baso % (Auto) Lymph # (Auto) Cooper # (Auto) Eos # (Auto) Baso # (Auto) Abs Immat Gran (auto) Absolute Neuts (auto) Absolute Nucleated RBC Nucleated RBC % (auto) Smear Tech's Comments Anion Gap Estim Creat Clear Calc Estimated GFR Random Glucose Calcium Total Bilirubin AST ALT Alkaline Phosphatase Total Protein Albumin Urine Color Urine Appearance Urine pH Ur Specific [place] Urine Protein Urine Glucose (UA) Urine Ketones Urine Blood Urine Nitrite Cancelled Ur Leukocyte Esterase Small (1+) H Cancelled Urine RBC 0-2 Cancelled Urine WBC 0-5 Urine WBC Clumps Ur Squamous Epith Cells Ur Transition Epith Cell Ur Renal Epithelial Cell Calcium Oxalate Crystal Leucine Crystals Cystine Crystals Tyrosine Crystals Other Crystals Urine Bacteria Urine Parasites Bilirubin Casts Epithelial Casts Fatty Casts Hyaline Casts Granular Casts Waxy Casts Broad Casts RBC Casts WBC Casts Other Casts Urine Trichomonas Urine Yeast 08/22/23 08/22/23 08/22/23 02:28 02:28 02:28 MCV MCH MCHC RDW Plt Count MPV Immature Gran % (Auto) Neut % (Auto) Lymph % (Auto) Cooper % (Auto) Eos % (Auto) Baso % (Auto) Lymph # (Auto) Cooper # (Auto) Eos # (Auto) Baso # (Auto) Abs Immat Gran (auto) Absolute Neuts (auto) Absolute Nucleated RBC Nucleated RBC % (auto) Smear Tech's Comments Anion Gap Estim Creat Clear Calc Estimated GFR Random Glucose Calcium Total Bilirubin AST ALT Alkaline Phosphatase Total Protein Albumin Urine Color Urine Appearance Urine pH Ur Specific [place] Urine Protein Urine Glucose (UA) Urine Ketones Urine Blood Urine Nitrite Ur Leukocyte Esterase Urine RBC Urine WBC Cancelled Urine WBC Clumps Cancelled Ur Squamous Epith Cells 0-2 Cancelled Ur Transition Epith Cell Cancelled Ur Renal Epithelial Cell Cancelled Calcium Oxalate Crystal Cancelled Leucine Crystals Cancelled Cystine Crystals Cancelled Tyrosine Crystals Cancelled Other Crystals Cancelled Urine Bacteria None Seen Cancelled Urine Parasites Cancelled Bilirubin Casts Cancelled Epithelial Casts Cancelled Fatty Casts Cancelled Hyaline Casts 0-2 Granular Casts Waxy Casts Broad Casts RBC Casts WBC Casts Other Casts Urine Trichomonas Urine Yeast 08/22/23 08/22/23 02:28 02:29 MCV 76.4 L MCH 22.1 L MCHC 29.0 L RDW 17.8 H Plt Count 321 MPV 8.1 L Immature Gran % (Auto) 0.4 Neut % (Auto) 93.2 H Lymph % (Auto) 3.9 L Cooper % (Auto) 2.0 Eos % (Auto) 0.3 Baso % (Auto) 0.2 Lymph # (Auto) 0.4 L Cooper # (Auto) 0.2 Eos # (Auto) 0.0 Baso # (Auto) 0.0 Abs Immat Gran (auto) 0.04 H Absolute Neuts (auto) 9.9 H Absolute Nucleated RBC 0.000 Nucleated RBC % (auto) 0.0 Smear Tech's Comments VERIFIED Anion Gap 18 Estim Creat Clear Calc 30.0 Estimated GFR 27 Random Glucose 152 H Calcium 9.7 Total Bilirubin 0.2 AST 14 ALT 16 Alkaline Phosphatase 103 Total Protein 6.4 L Albumin 3.6 Urine Color Urine Appearance Urine pH Ur Specific [place] Urine Protein Urine Glucose (UA) Urine Ketones Urine Blood Urine Nitrite Ur Leukocyte Esterase Urine RBC Urine WBC Urine WBC Clumps Ur Squamous Epith Cells Ur Transition Epith Cell Ur Renal Epithelial Cell Calcium Oxalate Crystal Leucine Crystals Cystine Crystals Tyrosine Crystals Other Crystals Urine Bacteria Urine Parasites Bilirubin Casts Epithelial Casts Fatty Casts Hyaline Casts Cancelled Granular Casts Cancelled Waxy Casts Cancelled Broad Casts Cancelled RBC Casts Cancelled WBC Casts Cancelled Other Casts Cancelled Urine Trichomonas Cancelled Urine Yeast Cancelled Imaging Radiologist's Impressions: Impressions Chest X-Ray 08/22/23 02:03 IMPRESSION: Low lung volumes without focal consolidation. Abdomen/Pelvis CT 08/22/23 07:08 IMPRESSION: No dilation of the urinary collecting system. There is a 2 mm calcification at the expected region of the left ureterovesical junction. I cannot confirm stability. If this is a calculus, the size suggests this might pass spontaneously. Evidence of previous bariatric surgery with distended loops of bowel and semisolid material suggesting small bowel stasis. No abscess or discrete zone of transition. 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 Assessment and Plan (1) Ileus: Status: Acute (2) JF (acute kidney injury): Status: Acute (3) Kidney stone: Status: Acute (4) Asthma exacerbation: Qualifiers: Asthma persistence: unspecified Asthma severity: unspecified severity Qualified Code(s): J45.901 - Unspecified asthma with (acute) exacerbation Status: Acute Plan Pt is a 53-year-old female with a PMH significant for?asthma/COPD overlap syndrome, chronic pain syndrome, complex regional pain syndrome, BABATUNDE, HTN, hx of TIA, hypothyroidism, fibromyalgia, hypogammaglobulinemia, s/p gastric bypass, and hx of PE on Eliquis among others who presents to the ED with?multiple issues of SOB, abdominal pain and left-sided flank pain with polyuria and increased urinary urgency. Pt will be admitted to the hospital for treatment and further evaluation of acute asthma/COPD overlap exacerbation, JF, and ileus. Asthma/COPD overlap syndrome exacerbation Patient significant SOB, PICKETT, cough, wheezing x6 days, no relief from home steroids or inhalers Still with significant wheezing and labored breathing upon exam despite treatments in ED Will treat with DuoNebs, Solu-Medrol, guaifenesin, and azithromycin 500 mg x 3 days Monitor respiratory status Abdominal pain, ?ileus Patient with diffuse abdominal pain and distension x4 days, last bowel movement 4 days ago, nausea and vomiting since yesterday CT of abdomen and pelvis with distended bowel loops and semi solid material suggesting small bowel stasis Patient on chronic opioids for chronic back pain Patient be placed on bowel rest, NPO for now IVF: Lactated Ringer's Morphine for pain management Continue sucralfate Follow BMP Nephrolithiasis Pt complaining of flank pain, dysuria, polyuria, increased urinary urgency CT of abdomen and pelvis found 2 mm calcification at left UVJ Will treat with IVF, pain management Hx of PE Continue Eliquis Mood disorder Continue home meds HTN continue valsartan Full Code Attending:?Dr. Boo DVT Prophylaxis: On Eliquis Pt will require a hospitalization of at least two nights for treatment of?multiple issues, including asthma/COPD overlap exacerbation and likely ileus. Pt will require IV steroids, breathing treatments, bowel rest, IVF, IV analgesics, and close monitoring. Time Spent With Patient Time: Total time managing care of this patient today ____ minutes. Quality Stroke Does the patient have a stroke diagnosis?: No VTE Prior VTE?: No VTE Risk Level:: Medical - moderate - high VTE Device Contraindication: Treatment Not Indicated VTE Drug Contraindication: N/A - Med Ordered
--- NOTE | 2023-08-22 11:55 | PHA.MEDREC ---
Pharmacy Consult ? Medication Reconciliation Pharmacy has completed the medication reconciliation. Utilized communications project lead services. Spoke to patient to confirm meds.
[2023-08-22] MEDS: Lactated Ringers 1,000 ML 100 ML IVCONT (12:56)
--- NOTE | 2023-08-22 13:01 | PC.NURSE ---
Patient alert and oriented, ambulating to bathroom with steady gait, IV fluids infusing per order
[2023-08-22] MEDS: Cholecalciferol (Vitamin D3) 25 MCG TABLET PO (14:39)
[2023-08-22] MEDS: Escitalopram Oxalate 10 MG TABLET PO (14:40)
[2023-08-22] MEDS: Valsartan 160 MG TABLET PO (14:40)
[2023-08-22] MEDS: Gabapentin 300 MG CAPSULE 600 MG PO ×2 (14:40→20:32)
[2023-08-22] MEDS: Cyanocobalamin (Vitamin B-12) 1,000 MCG TABLET 1000 MCG PO (14:40)
[2023-08-22] MEDS: Apixaban 2.5 MG TABLET PO ×2 (14:42→20:32)
[2023-08-22 14:51] LABS: VBG Base Excess -10.6 mmol/L; VBG HCO3 15 mmol/L (22-26); VBG pCO2 32 mmHg; VBG pH 7.27 (7.32-7.43); VBG pO2 47 mmHg
[2023-08-22 14:54] LABS: Venous Blood Gas Refer to POC result
[2023-08-22 15:05] LABS: Anion Gap 20 (12-20); Blood Urea Nitrogen 15 mg/dL (9-16); Calcium 9.9 mg/dL (8.4-10.2); Carbon Dioxide 15 mmol/L (22-29); Chloride 108 mmol/L (96-108); Creatinine Clr Calc Pharmacy 43.4; Estimated Glomerular Filt Rate 42; Glucose Random 158 mg/dL (60-115); Potassium 4.7 mmol/L (3.3-5.1); Sodium 138 mmol/L (135-145)
[2023-08-22] MEDS: Azithromycin 500 MG in 0.9 % Sodium Chloride 250 ML 125 MG IV (15:33)
[2023-08-22] MEDS: Albuterol/Iprat 2.5/0.5MG 3 ML AMPUL.NEB INHALE ×2 (15:47→19:29)
--- NOTE | 2023-08-22 15:47 | PC.NURSE ---
IV in top of right hand infiltrated when abt started, pressure dressing applied, 22g started in right hand, abt resumed
--- NOTE | 2023-08-22 15:57 | PC.NURSE ---
Reports improved pain after receiving IV morphine. Respiratory at bedside giving updraft.
--- NOTE | 2023-08-22 16:20 | MHC.EDTECH ---
THIS PCT ASSUMED CARE OF PT AT 1500 ,VITALS TAKEN ,PT BELONGING LIST DONE ,PT COMFORTABLE ,NO APPARENT DISTRESS ,WILL CONTINUE TO MONITOR .
--- NOTE | 2023-08-22 18:38 | PC.NURSE ---
Alert and oriented, vss, no sob noted, iv fluids infusing per order
--- NOTE | 2023-08-22 19:34 | PC.NURSE ---
pt ambulatory to bathroom independently with steady gait. sats 95% RA. respirations even and unlabored. pt resting in stretcher. ivf infusing. pt aware of plan of care denies questions/concerns at this time. awaiting bed assignment. call rayo within reach.
--- NOTE | 2023-08-22 20:20 | PC.NURSE ---
pt requesting bed time meds and prn olga at this time as stating she'd like to sleep.
[2023-08-22] MEDS: Montelukast Sodium 10 MG TABLET PO (20:32)
[2023-08-22] MEDS: methylPREDNISolone Sod Succ 40 MG/ML VIAL IVPUSH (20:32)
[2023-08-22] MEDS: QUEtiapine Fumarate 400 MG TABLET PO (20:32)
[2023-08-22] MEDS: Zolpidem Tartrate 5 MG TABLET PO (20:32)
[2023-08-22] MEDS: Lidocaine 4 % Patch ADH..PATCH 1 PATCH TRANSDERMA (20:33)
--- NOTE | 2023-08-22 21:54 | PC.NURSE ---
delay in LR infusion from previous shift; current bag still infusing at 100mL/hr.
--- NOTE | 2023-08-22 23:54 | PC.NURSE ---
pt reports lower back pain; lidocaine patch on. offered pt ice pack; applied to lower back pt states is sufficient; refused prn acetaminophen.
--- NOTE | 2023-08-22 23:55 | PC.NURSE ---
report given to s3 MACIEL Hernandez.
[2023-08-23] VITALS (8 sets, daily range): BP systolic 115–135; BP diastolic 63–66; PULSE 71–86; RESP 16–20; TEMP 36–36.9; O2SAT 95–98; BMI 39.6
[2023-08-23] MEDS: Lactated Ringers 1,000 ML 100 ML IVCONT ×2 (00:21→13:08)
[2023-08-23] MEDS: Morphine Sulfate 4 MG/ML CARTRIDGE IVPUSH ×4 (00:55→19:38)
[2023-08-23] MEDS: Albuterol/Iprat 2.5/0.5MG 3 ML AMPUL.NEB INHALE ×4 (07:50→19:45)
[2023-08-23] MEDS: Valsartan 160 MG TABLET PO (08:32)
[2023-08-23] MEDS: Gabapentin 300 MG CAPSULE 600 MG PO ×2 (08:32→20:34)
[2023-08-23] MEDS: Apixaban 2.5 MG TABLET PO ×2 (08:32→20:34)
[2023-08-23] MEDS: Cholecalciferol (Vitamin D3) 25 MCG TABLET PO (08:32)
[2023-08-23] MEDS: Loratadine 10 MG TABLET PO (08:33)
[2023-08-23] MEDS: Lidocaine 4 % Patch ADH..PATCH 1 PATCH TRANSDERMA ×2 (08:33→20:33)
[2023-08-23] MEDS: methylPREDNISolone Sod Succ 40 MG/ML VIAL IVPUSH ×2 (08:33→19:38)
[2023-08-23] MEDS: Zinc Sulfate 220 MG CAPSULE 440 MG PO (08:33)
[2023-08-23] MEDS: Escitalopram Oxalate 10 MG TABLET PO (08:33)
[2023-08-23] MEDS: Cyanocobalamin (Vitamin B-12) 1,000 MCG TABLET 1000 MCG PO (08:33)
[2023-08-23] MEDS: 0.9 % Sodium Chloride Flush 3 ML SYRINGE IVFLUSH ×2 (08:43→19:38)
[2023-08-23 10:23] LABS: Hematocrit 30.7 % (37.0-47.0); Mean Corpuscular HGB Conc 29.3 g/dl (31.0-35.0); Mean Corpuscular Hemoglobin 21.8 pg (27.0-33.0); Mean Corpuscular Volume 74.5 fL (80.0-98.0); Mean Platelet Volume 8.8 fL (9.4-12.3); Platelet Count 385 X10*3/uL (160-400); Red Blood Count 4.12 X10*6/uL (4.20-5.50); Red Cell Distribution Width 17.8 % (11.0-16.0); White Blood Count 12.2 X10*3/uL (4.8-10.8)
[2023-08-23 10:40] LABS: Anion Gap 15 (12-20); Blood Urea Nitrogen 14 mg/dL (9-16); Calcium 10.2 mg/dL (8.4-10.2); Carbon Dioxide 21 mmol/L (22-29); Chloride 109 mmol/L (96-108); Estimated Glomerular Filt Rate 55; Glucose Random 154 mg/dL (60-115); Potassium 4.7 mmol/L (3.3-5.1); Sodium 140 mmol/L (135-145)
[2023-08-23] MEDS: oxyCODONE HCl Immed Release 5 MG TABLET PO (10:43)
--- NOTE | 2023-08-23 12:02 | MHC.CM.PN ---
with interpertor met with pt who explains that she lives alone has [employer] thru [employer] she has her own ride home dc plan home
--- NOTE | 2023-08-23 13:16 | HO.PM.IMPN ---
Subjective Subjective Date of Service: 08/23/23 Review of Systems Follow up Ileus still with some pain, advised to ambulate in hallway no nausea or vomiting Physical Exam Vital Signs: Vital Signs: Last Vital Signs Temp 98.4 F 08/23/23 07:35 Pulse 76 08/23/23 11:30 Resp 18 08/23/23 11:30 BP 126/66 08/23/23 07:35 Pulse Ox 95 08/23/23 07:35 O2 Del Method Room Air 08/23/23 07:35 BMI result Body Mass Index 39.6 Appearing in no acute distress lung sounds are clear to auscultation heart regular rate rhythm, clear S1, S2 positive bowel sounds, abdomen is soft, nontender neuro patient is alert x3, no focal deficits Objective Data Active Medications Acetaminophen (Acetaminophen 325 Mg Tablet) 650 mg PO Q6H PRN PRN Reason: Pain, Mild (Pain Scale 1-3) Albuterol Sulfate (Albuterol Sulfate (0.083%) 2.5 Mg/3 Ml Vial.Neb) 2.5 mg INHALE Q4H PRN PRN Reason: shortness of breath or wheezing Albuterol/Ipratropium (Albuterol/Iprat 2.5/0.5mg 3 Ml Ampul.Neb) 3 ml INHALE RQ4H WHILE AWAKE [facility] Last Admin: 08/23/23 11:29 Dose: 3 ml Documented By: AXEL Apixaban (Apixaban 2.5 Mg Tablet) 2.5 mg PO BID [facility] Last Admin: 08/23/23 08:32 Dose: 2.5 mg Documented By: SMILEY Benzonatate (Benzonatate 100 Mg Capsule) 100 mg PO TID PRN PRN Reason: Cough Cyanocobalamin (Cyanocobalamin (Vitamin B-12) 1,000 Mcg Tablet) 1,000 mcg PO DAILY [facility] Last Admin: 08/23/23 08:33 Dose: 1,000 mcg Documented By: SMILEY Dicyclomine HCl (Dicyclomine Hcl 10 Mg Capsule) 20 mg PO QID PRN PRN Reason: abdominal pain Escitalopram Oxalate (Escitalopram Oxalate 10 Mg Tablet) 10 mg PO DAILY [facility] Last Admin: 08/23/23 08:33 Dose: 10 mg Documented By: SMILEY Fluticasone Propionate (Fluticasone Propionate Nasal 16 Gm Gaylord) 1 spray NOSTRIL-B DAILY [facility] Last Admin: 08/23/23 10:13 Dose: Not Given Documented By: SMILEY Non-Admin Reason: Med Not Available Gabapentin (Gabapentin 300 Mg Capsule) 600 mg PO BID [facility] Last Admin: 08/23/23 08:32 Dose: 600 mg Documented By: SMILEY Guaifenesin/Dextromethorphan (Guaifenesin Dm 200/20/10 Ml 10 Ml Syrup) 10 ml PO Q4H PRN PRN Reason: Cough Hydroxyzine HCl (Hydroxyzine Hcl 25 Mg Tablet) 25 mg PO TID PRN PRN Reason: itch Lactated Ringer's (Lr) 1,000 mls @ 100 mls/hr IVCONT .Q10H [facility] Last Admin: 08/23/23 13:08 Dose: 100 mls/hr Documented By: SMILEY Azithromycin 500 mg/ Sodium (Chloride) 250 mls @ 125 mls/hr IV Q24H [facility] Stop: 08/25/23 13:59 Last Infusion: 08/22/23 17:46 Dose: Infused Documented By: CATHERINE Lidocaine (Lidocaine 4 % Patch Adh..Patch) 1 patch TRANSDERMA BID [facility] Last Admin: 08/23/23 08:33 Dose: 1 patch Documented By: SMILEY Loratadine (Loratadine 10 Mg Tablet) 10 mg PO DAILY [facility] Last Admin: 08/23/23 08:33 Dose: 10 mg Documented By: SMILEY Melatonin (Melatonin 3 Mg Tablet) 6 mg PO BEDTIME PRN PRN Reason: Insomnia Methylprednisolone Sodium Succinate (Methylprednisolone Sod Succ 40 Mg/Ml Vial) 40 mg IVPUSH Q12H [facility] Last Admin: 08/23/23 08:33 Dose: 40 mg Documented By: SMILEY Montelukast Sodium (Montelukast Sodium 10 Mg Tablet) 10 mg PO BEDTIME [facility] Last Admin: 08/22/23 20:32 Dose: 10 mg Documented By: ANTHONY Morphine Sulfate (Morphine Sulfate 4 Mg/Ml Cartridge) 4 mg IVPUSH Q4H PRN; Protocol PRN Reason: Pain, Severe (Pain Scale 7-10) Last Admin: 08/23/23 13:08 Dose: 4 mg Documented By: SMILEY Non-Formulary Medication (Chhjfmebfr-Vaqyxelg-Vfvhnwtolz [Breztri Aerosphere]) 2 inhalation INHALE BID [facility] Omeprazole (Omeprazole 40 Mg Capsule.Dr) 40 mg PO BID PRN PRN Reason: Acid Reflux Ondansetron HCl (Ondansetron Hcl 4 Mg/2 Ml Vial) 4 mg IVPUSH Q8H PRN PRN Reason: Nausea and Vomiting Oxycodone HCl (Oxycodone Hcl Immed Release 5 Mg Tablet) 5 mg PO TID PRN PRN Reason: Pain, Moderate(Pain Scale 4-6) Last Admin: 08/23/23 10:43 Dose: 5 mg Documented By: SMILEY Quetiapine Fumarate (Quetiapine Fumarate 400 Mg Tablet) 400 mg PO BEDTIME [facility] Last Admin: 08/22/23 20:32 Dose: 400 mg Documented By: ANTHONY Sodium Chloride (0.9 % Sodium Chloride Flush 3 Ml Syringe) [facility] Last Admin: 08/23/23 08:43 Dose: 3 ml Documented By: SMILEY Sucralfate (Sucralfate 1 Gm Tablet) 1 gm PO TID PRN PRN Reason: gastritis Valsartan (Valsartan 160 Mg Tablet) 160 mg PO DAILY [facility]; Protocol Last Admin: 08/23/23 08:32 Dose: 160 mg Documented By: SMILEY Vitamin D (Cholecalciferol (Vitamin D3) 25 Mcg Tablet) 25 mcg PO DAILY [facility] Last Admin: 08/23/23 08:32 Dose: 25 mcg Documented By: SMILEY Zinc Sulfate (Zinc Sulfate 220 Mg Capsule) 440 mg PO DAILY [facility] Last Admin: 08/23/23 08:33 Dose: 440 mg Documented By: SMILEY Zolpidem Tartrate (Zolpidem Tartrate 5 Mg Tablet) 5 mg PO BEDTIME PRN PRN Reason: Insomnia Last Admin: 08/22/23 20:32 Dose: 5 mg Documented By: ANTHONY Labs 08/23/23 10:06 08/23/23 10:06 Labs: Laboratory Results - last 24 hr 08/22/23 08/22/23 08/23/23 14:37 14:44 10:06 MCV 74.5 L MCH 21.8 L MCHC 29.3 L RDW 17.8 H Plt Count 385 MPV 8.8 L Absolute Nucleated RBC 0.000 Nucleated RBC % (auto) 0.0 VBG pH 7.27 L VBG pCO2 32 VBG pO2 47 VBG HCO3 15 L VBG O2 Saturation 65.0 VBG Base Excess -10.6 Anion Gap 20 15 Estim Creat Clear Calc 43.4 57.0 Estimated GFR 42 55 Random Glucose 158 H 154 H Calcium 9.9 10.2 Microbiology Microbiology Results: Microbiology 08/22/23 Unknown Urine Culture - Final Urine clean catch - Urine steele top Assessment and Plan (1) Ileus: Status: Acute Plan 53-year-old female with a PMH significant for?asthma/COPD overlap syndrome, chronic pain syndrome, complex regional pain syndrome, BABATUNDE, HTN, hx of TIA, hypothyroidism, fibromyalgia, hypogammaglobulinemia, s/p gastric bypass, and hx of PE on Eliquis among others who presents to the ED with?multiple issues of SOB, abdominal pain and left-sided flank pain with polyuria and increased urinary urgency. Pt will be admitted to the hospital for treatment and further evaluation of acute asthma/COPD overlap exacerbation, JF, and ileus. Asthma/COPD overlap syndrome exacerbation symptoms improving Patient significant SOB, PICKETT, cough, wheezing x6 days, no relief from home steroids or inhalers continue DuoNebs, Solu-Medrol, guaifenesin, and azithromycin 500 mg x 3 days Monitor respiratory status Abdominal pain, ?ileus Patient with diffuse abdominal pain and distension x4 days CT of abdomen and pelvis with distended bowel loops and semi solid material suggesting small bowel stasis Patient on chronic opioids for chronic back pain NPO for now Lactated Ringer's Morphine for pain management Continue sucralfate Follow BMP Nephrolithiasis Pt complaining of flank pain, dysuria, polyuria, increased urinary urgency CT of abdomen and pelvis found 2 mm calcification at left UVJ Will treat with IVF, pain management Hx of PE Continue Eliquis Mood disorder Continue home meds HTN continue valsartan Full Code Attending:?Dr. Tello DVT Prophylaxis: On Eliquis Pt will require a hospitalization of at least two nights for treatment of?multiple issues, including asthma/COPD overlap exacerbation and likely ileus. Pt will require IV steroids, breathing treatments, bowel rest, IVF, IV analgesics, and close monitoring. Time Spent With Patient Time: Total time managing care of this patient today ____ minutes. Quality Stroke Does the patient have a stroke diagnosis?: No VTE Prior VTE?: No VTE Risk Level:: Medical - moderate - high VTE Device Contraindication: Treatment Not Indicated VTE Drug Contraindication: N/A - Med Ordered
[2023-08-23] MEDS: Azithromycin 500 MG in 0.9 % Sodium Chloride 250 ML 125 MG IV (14:00)
--- NOTE | 2023-08-23 15:33 | P.CNGI_ITS ---
History of Present Illness Data of Consult Service Date: 08/23/23 Primary Care Provider: MD ANEUDY Zafar This is a 53-year-old female past medical history of asthma, chronic back pain, chronic pain syndrome, depression, fibromyalgia, TIA, pulmonary embolism on apixaban, IgG deficiency, RYGB 2008, who is currently admitted to the hospital for worsening shortness of breath as well as abdominal pain. Gastroenterology has been consulted for question of ileus. Seen with the help of Welsh provider. Patient reports that for the past 5 days, she has been noticing increased abdominal distension with inability to pass any flatus or bowel movement. With this, she has been able to keep up with her p.o. intake albeit with some nausea but no vomiting. No fevers or chills. She also noticed some worsening shortness of breath and eventually presented to the emergency room. On initial evaluation, she was noted to be mildly tachycardic but vitally stable. Labs were significant for chronic anemia with microcytosis. Chem 7 with normal potassium, calcium and mild JF. She also had a CT abdomen pelvis without IV contrast that showed significant fecal loading till her small intestine. No transition zone or mechanical obstruction noted. There was suggestion of stasis/ileus due to distended small bowel loops. Of note, does have history of [place]-en-Y gastric bypass with marginal ulcer seen on EGD 11/2022. Last colonoscopy was in 2019 with hyperplastic polyp but otherwise normal including random bx. Was lost to follow up with GI office earlier this year - reports was out of state to take care of her father and returned a month ago. Review of Systems 2 Review of Systems: Yes all other systems are reviewed and are negative [facility] Past Medical History Medical History (Updated 08/23/23 @ 16:49 by Eboni Paredes MD) Constipation Knee pain, left Left hip pain Upper respiratory infection Weight gain Acute bronchitis Abdominal pain Persistent cough COVID-19 History of peristent cough as a child Epigastric pain Bile salt-induced diarrhea Acute severe exacerbation of moderate persistent asthma History of COVID-19 Osteoporosis Spondylosis of cervical spine Asthma-COPD overlap syndrome Spondylosis of lumbar joint Nausea vomiting and diarrhea Disc degeneration, 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 Dizziness Headache Elevated lactic acid level Bronchitis Headache, migraine Asthma exacerbation Cough BABATUNDE (obstructive sleep apnea) Chronic pain syndrome Spondylosis of lumbar spine Low back pain Complex regional pain syndrome i of left lower limb Diabetic neuropathy Laryngotracheitis Essential hypertension Type 2 diabetes mellitus with unspecified complications Morbid obesity Anemia Back pain Pleuritic chest pain Fibromyalgia Hypothyroidism TIA (transient ischemic attack) Diet-controlled diabetes mellitus Depression Arthritis Sleep apnea Hypogammaglobulinemia Pulmonary embolism Family History Family History Mother Diabetes Stroke Family/Other Diabetes Father Diabetes Maternal Aunt Cancer Surgical History Surgical History History of esophagogastroduodenoscopy (EGD) Hx of colonoscopy S/P total abdominal hysterectomy History of cholecystectomy History of bariatric surgery Social History Social History Household Members: None Housing: Apartment Are you a primary clinical care coordinator to a significant other at home: No Do you presently have visiting nurse or other home services: No ([employer]) Alcohol intake: former Patient Tobacco Use Status: Never used Tobacco Smoked in Last 30 Days: No e-Cigarette/Vaping Use: Never Used Patient Interested in Nicotine Replacement: No Patient Given Instructions on How to Stop Smoking: No Second Hand Smoke Exposure: No Use of substances other than those prescribed or required for medical reasons: Yes Substance Use Type: Opiates Substance Use Frequency: Daily Last Used Substance: Hours (ago) Last Used Substance Other:: Oxycodone Currently Displaying Signs/Symptoms of Drug Intoxication Withdrawal: No Any prior treatment program specific to substance use: No Have you been hit, kicked, punched, or otherwise hurt by someone within the past year? If so, by whom?: No Do you feel safe in your current relationship?: Yes Is there a partner from a previous relationship who is making you feel unsafe now?: No Are you made to feel afraid or neglected: No Advance Directives: No Advance Directives Information Provided: No Advance Directives Date on File: 05/23/21 Do you have thoughts of harming others: None Do you have a plan to hurt others: No Plan Recently lost weight without trying: No Eating poorly because of decreased appetite: No Nutrition Risks: Poor intake 0-25% >4 days Patient : No : No Poor oral hygiene: No service: No Current occupational status: unemployed and disabled Meds Allergies Allergy/AdvReac Type Severity Reaction Status Date / Time No Known Allergies Allergy Verified 08/22/23 01:45 Active Medications: Current Medications Acetaminophen (Acetaminophen 325 Mg Tablet) 650 mg PO Q6H PRN PRN Reason: Pain, Mild (Pain Scale 1-3) Albuterol Sulfate (Albuterol Sulfate (0.083%) 2.5 Mg/3 Ml Vial.Neb) 2.5 mg INHALE Q4H PRN PRN Reason: shortness of breath or wheezing Albuterol/Ipratropium (Albuterol/Iprat 2.5/0.5mg 3 Ml Ampul.Neb) 3 ml INHALE RQ4H WHILE AWAKE [facility] Last Admin: 08/23/23 15:17 Dose: 3 ml Apixaban (Apixaban 2.5 Mg Tablet) 2.5 mg PO BID [facility] Last Admin: 08/23/23 08:32 Dose: 2.5 mg Benzonatate (Benzonatate 100 Mg Capsule) 100 mg PO TID PRN PRN Reason: Cough Cyanocobalamin (Cyanocobalamin (Vitamin B-12) 1,000 Mcg Tablet) 1,000 mcg PO DAILY [facility] Last Admin: 08/23/23 08:33 Dose: 1,000 mcg Dicyclomine HCl (Dicyclomine Hcl 10 Mg Capsule) 20 mg PO QID PRN PRN Reason: abdominal pain Escitalopram Oxalate (Escitalopram Oxalate 10 Mg Tablet) 10 mg PO DAILY [facility] Last Admin: 08/23/23 08:33 Dose: 10 mg Fluticasone Propionate (Fluticasone Propionate Nasal 16 Gm Strang) 1 spray NOSTRIL-B DAILY [facility] Last Admin: 08/23/23 10:13 Dose: Not Given Gabapentin (Gabapentin 300 Mg Capsule) 600 mg PO BID [facility] Last Admin: 08/23/23 08:32 Dose: 600 mg Guaifenesin/Dextromethorphan (Guaifenesin Dm 200/20/10 Ml 10 Ml Syrup) 10 ml PO Q4H PRN PRN Reason: Cough Hydroxyzine HCl (Hydroxyzine Hcl 25 Mg Tablet) 25 mg PO TID PRN PRN Reason: itch Lactated Ringer's (Lr) 1,000 mls @ 100 mls/hr IVCONT .Q10H [facility] Last Admin: 08/23/23 13:08 Dose: 100 mls/hr Azithromycin 500 mg/ Sodium (Chloride) 250 mls @ 125 mls/hr IV Q24H [facility] Stop: 08/25/23 13:59 Last Admin: 08/23/23 14:00 Dose: 125 mls/hr Lidocaine (Lidocaine 4 % Patch Adh..Patch) 1 patch TRANSDERMA BID [facility] Last Admin: 08/23/23 08:33 Dose: 1 patch Loratadine (Loratadine 10 Mg Tablet) 10 mg PO DAILY [facility] Last Admin: 08/23/23 08:33 Dose: 10 mg Melatonin (Melatonin 3 Mg Tablet) 6 mg PO BEDTIME PRN PRN Reason: Insomnia Methylprednisolone Sodium Succinate (Methylprednisolone Sod Succ 40 Mg/Ml Vial) 40 mg IVPUSH Q12H [facility] Last Admin: 08/23/23 08:33 Dose: 40 mg Montelukast Sodium (Montelukast Sodium 10 Mg Tablet) 10 mg PO BEDTIME [facility] Last Admin: 08/22/23 20:32 Dose: 10 mg Morphine Sulfate (Morphine Sulfate 4 Mg/Ml Cartridge) 4 mg IVPUSH Q4H PRN; Protocol PRN Reason: Pain, Severe (Pain Scale 7-10) Last Admin: 08/23/23 13:08 Dose: 4 mg Non-Formulary Medication (Hwppjgplzq-Lpmajctn-Svwfoqceea [Breztri Aerosphere]) 2 inhalation INHALE BID [facility] Omeprazole (Omeprazole 40 Mg Capsule.Dr) 40 mg PO BID PRN PRN Reason: Acid Reflux Ondansetron HCl (Ondansetron Hcl 4 Mg/2 Ml Vial) 4 mg IVPUSH Q8H PRN PRN Reason: Nausea and Vomiting Oxycodone HCl (Oxycodone Hcl Immed Release 5 Mg Tablet) 5 mg PO TID PRN PRN Reason: Pain, Moderate(Pain Scale 4-6) Last Admin: 08/23/23 10:43 Dose: 5 mg Quetiapine Fumarate (Quetiapine Fumarate 400 Mg Tablet) 400 mg PO BEDTIME [facility] Last Admin: 08/22/23 20:32 Dose: 400 mg Sodium Chloride (0.9 % Sodium Chloride Flush 3 Ml Syringe) 3 ml IVFLUSH QSHIFT [facility] Last Admin: 08/23/23 08:43 Dose: 3 ml Sucralfate (Sucralfate 1 Gm Tablet) 1 gm PO TID PRN PRN Reason: gastritis Valsartan (Valsartan 160 Mg Tablet) 160 mg PO DAILY [facility]; Protocol Last Admin: 08/23/23 08:32 Dose: 160 mg Vitamin D (Cholecalciferol (Vitamin D3) 25 Mcg Tablet) 25 mcg PO DAILY [facility] Last Admin: 08/23/23 08:32 Dose: 25 mcg Zinc Sulfate (Zinc Sulfate 220 Mg Capsule) 440 mg PO DAILY [facility] Last Admin: 08/23/23 08:33 Dose: 440 mg Zolpidem Tartrate (Zolpidem Tartrate 5 Mg Tablet) 5 mg PO BEDTIME PRN PRN Reason: Insomnia Last Admin: 08/22/23 20:32 Dose: 5 mg Home Medications Medication Instructions Recorded Confirmed Last Taken Type montelukast 10 mg tablet 10 mg PO BEDTIME 08/02/20 08/22/23 08/21/23 History cyanocobalamin (vitamin B-12) 1,000 mcg PO DAILY 11/05/20 08/22/23 08/21/23 History 1,000 mcg tablet escitalopram oxalate 10 mg tablet 1 tab PO DAILY 08/21/22 08/22/23 08/21/23 History zolpidem 10 mg tablet 1 tab PO BEDTIME PRN Insomnia 08/21/22 08/22/23 11/26/22 History cholecalciferol (vitamin D3) 25 1 tab PO DAILY 11/28/22 08/22/23 08/21/23 History mcg (1,000 unit) tablet valsartan 160 mg tablet 1 tab PO DAILY 11/28/22 08/22/23 08/21/23 History betamethasone dipropionate 0.05 % 1 appl topical BID PRN psoriasis 02/12/23 08/22/23 Unknown History lotion blood sugar diagnostic (Freeyle #10 ea 02/12/23 08/22/23 Unknown History Lite Strips) calcipotriene 0.005 % topical 1 appl topical BID PRN flares 02/12/23 08/22/23 Unknown History ointment fluocinonide 0.05 % topical 1 appl topical BID PRN flares 02/12/23 08/22/23 Unknown History ointment fluticasone propionate 50 50 mcg intranasal DAILY 02/12/23 08/22/23 08/21/23 History mcg/actuation nasal spray,suspension hydroxyzine HCl 25 mg tablet 25 mg PO TID PRN itch 02/12/23 08/22/23 Unknown History prednisone 10 mg tablet 10 mg PO BID 02/12/23 08/22/23 08/21/23 History nebulizers 04/02/23 08/22/23 Unknown History benzonatate 100 mg capsule 100 mg PO TID PRN Cough 08/22/23 08/22/23 Unknown History lidocaine 5 % topical patch 1 patch topical BID 08/22/23 08/22/23 08/21/23 History loratadine 10 mg tablet 10 mg PO DAILY 08/22/23 08/22/23 08/21/23 History omeprazole 40 mg capsule,delayed 40 mg PO BID PRN Acid Reflux 08/22/23 08/22/23 Unknown History release quetiapine 400 mg tablet 400 mg PO BEDTIME 08/22/23 08/22/23 08/21/23 History Physical Exam 2 Vital Signs: Vital Signs: Last Vital Signs Temp 97.3 F 08/23/23 15:14 Pulse 78 08/23/23 15:18 Resp 16 08/23/23 15:18 BP 135/65 08/23/23 15:14 Pulse Ox 97 08/23/23 15:14 O2 Del Method Room Air 08/23/23 15:14 BMI result Body Mass Index 39.6 Gen appear: NAD HEENT: nonicteric, no cervical lymphadenopathy Chest: CTA CVS: Regular S1/S2 Abd: soft, nontender, mildly distended, bowel sounds + Ext: no peripheral edema Neuro: A/Ox3, noted to move all extremities spontaneously Psych: interacting appropriately Results Labs 08/23/23 10:06 08/23/23 10:06 Labs: Short CBC 08/23/23 Range/Units 10:06 WBC 12.2 H (4.8-10.8) X10*3/uL Hgb 9.0 L (12.0-16.0) g/dl Hct 30.7 L (37.0-47.0) % Plt Count 385 (160-400) X10*3/uL BMP 08/23/23 10:06 Sodium 140 Potassium 4.7 Chloride 109 H Carbon Dioxide 21 L BUN 14 Creatinine 1.05 Calcium 10.2 Microbiology Microbiology Results: Microbiology 08/22/23 Unknown Urine clean catch - Urine steele top Urine Culture - Final Assessment and Plan (1) Constipation: Status: Acute (2) Chronic prescription opiate use: Status: Inactive Plan Based on clinical exam and robust bowel sounds, argues against paralytic ileus. Suspect has worsening of underlying constipation and would recommend resuming bowel regimen as below. Plan: - Minimize opiates. Utilize tylenol 650 for pain control preferentially. - Encourage ambulation. - Check mag and correct if low - Check TSH - Give fleet enema x 2 this evening as well as miralax 17g PO - If minimal response by tmrw, consider gastrograffin small bowel study to r/o mechanical obstruction Thank you for allowing me to participate in her care. Please do not hesitate to reach out for any questions or concerns. Time Spent With Patient Time: Total time managing care of this patient today ____ minutes. Procedures Date of Service Date of Service: 08/23/23
[2023-08-23] MEDS: polyethylene glycoL 3350 17 GM POWD.PACK PO (17:11)
[2023-08-23] MEDS: Mineral OiL enema 133 ML ENEMA PR (18:29)
[2023-08-23] MEDS: hydrOXYzine HCL 25 MG TABLET PO (20:34)
[2023-08-23] MEDS: Montelukast Sodium 10 MG TABLET PO (20:34)
[2023-08-23] MEDS: guaiFENesin DM 200/20/10 ML 10 ML SYRUP PO (20:34)
[2023-08-23] MEDS: QUEtiapine Fumarate 400 MG TABLET PO (20:34)
[2023-08-23] MEDS: Melatonin 3 MG TABLET 6 MG PO (20:34)
[2023-08-23] MEDS: Zolpidem Tartrate 5 MG TABLET PO (21:08)
[2023-08-24] VITALS (8 sets, daily range): BP systolic 124–132; BP diastolic 65–88; PULSE 54–71; RESP 16–20; TEMP 36–36.8; O2SAT 95–99
[2023-08-24] MEDS: oxyCODONE HCl Immed Release 5 MG TABLET PO (00:14)
[2023-08-24] MEDS: Lactated Ringers 1,000 ML 100 ML IVCONT (03:22)
[2023-08-24] MEDS: Morphine Sulfate 4 MG/ML CARTRIDGE IVPUSH ×4 (04:20→21:11)
[2023-08-24] MEDS: Albuterol/Iprat 2.5/0.5MG 3 ML AMPUL.NEB INHALE ×4 (07:47→19:55)
--- NOTE | 2023-08-24 08:06 | HO.PM.IMPN ---
Subjective Subjective Date of Service: 08/24/23 Review of Systems Follow up Ileus still with some pain and no BM no nausea or vomiting Physical Exam Vital Signs: Vital Signs: Last Vital Signs Temp 98.0 F 08/24/23 07:27 Pulse 65 08/24/23 07:49 Resp 18 08/24/23 07:49 BP 124/68 08/24/23 07:27 Pulse Ox 96 08/24/23 07:27 O2 Del Method Room Air 08/24/23 07:27 BMI result Body Mass Index 39.6 Appearing in no acute distress lung sounds are clear to auscultation heart regular rate rhythm, clear S1, S2 positive bowel sounds, abdomen is soft, nontender neuro patient is alert x3, no focal deficits Objective Data Active Medications Acetaminophen (Acetaminophen 325 Mg Tablet) 650 mg PO Q6H PRN PRN Reason: Pain, Mild (Pain Scale 1-3) Albuterol Sulfate (Albuterol Sulfate (0.083%) 2.5 Mg/3 Ml Vial.Neb) 2.5 mg INHALE Q4H PRN PRN Reason: shortness of breath or wheezing Albuterol/Ipratropium (Albuterol/Iprat 2.5/0.5mg 3 Ml Ampul.Neb) 3 ml INHALE RQ4H WHILE AWAKE [facility] Last Admin: 08/24/23 07:47 Dose: 3 ml Documented By: SIMIN Apixaban (Apixaban 2.5 Mg Tablet) 2.5 mg PO BID [facility] Last Admin: 08/23/23 20:34 Dose: 2.5 mg Documented By: ARPITA Benzonatate (Benzonatate 100 Mg Capsule) 100 mg PO TID PRN PRN Reason: Cough Cyanocobalamin (Cyanocobalamin (Vitamin B-12) 1,000 Mcg Tablet) 1,000 mcg PO DAILY [facility] Last Admin: 08/23/23 08:33 Dose: 1,000 mcg Documented By: SMILEY Dicyclomine HCl (Dicyclomine Hcl 10 Mg Capsule) 20 mg PO QID PRN PRN Reason: abdominal pain Escitalopram Oxalate (Escitalopram Oxalate 10 Mg Tablet) 10 mg PO DAILY [facility] Last Admin: 08/23/23 08:33 Dose: 10 mg Documented By: SMILEY Fluticasone Propionate (Fluticasone Propionate Nasal 16 Gm Brandt) 1 spray NOSTRIL-B DAILY [facility] Last Admin: 08/23/23 10:13 Dose: Not Given Documented By: SMILEY Non-Admin Reason: Med Not Available Gabapentin (Gabapentin 300 Mg Capsule) 600 mg PO BID [facility] Last Admin: 08/23/23 20:34 Dose: 600 mg Documented By: ARPITA Guaifenesin/Dextromethorphan (Guaifenesin Dm 200/20/10 Ml 10 Ml Syrup) 10 ml PO Q4H PRN PRN Reason: Cough Last Admin: 08/23/23 20:34 Dose: 10 ml Documented By: ARPITA Hydroxyzine HCl (Hydroxyzine Hcl 25 Mg Tablet) 25 mg PO TID PRN PRN Reason: itch Last Admin: 08/23/23 20:34 Dose: 25 mg Documented By: ARPITA Lactated Ringer's (Lr) 1,000 mls @ 100 mls/hr IVCONT .Q10H [facility] Last Admin: 08/24/23 03:22 Dose: 100 mls/hr Documented By: ARPITA Azithromycin 500 mg/ Sodium (Chloride) 250 mls @ 125 mls/hr IV Q24H [facility] Stop: 08/25/23 13:59 Last Infusion: 08/23/23 16:07 Dose: Infused Documented By: SMILEY Lidocaine (Lidocaine 4 % Patch Adh..Patch) 1 patch TRANSDERMA BID [facility] Last Admin: 08/23/23 20:33 Dose: 1 patch Documented By: ARPITA Loratadine (Loratadine 10 Mg Tablet) 10 mg PO DAILY [facility] Last Admin: 08/23/23 08:33 Dose: 10 mg Documented By: SMILEY Melatonin (Melatonin 3 Mg Tablet) 6 mg PO BEDTIME PRN PRN Reason: Insomnia Last Admin: 08/23/23 20:34 Dose: 6 mg Documented By: ARPITA Methylprednisolone Sodium Succinate (Methylprednisolone Sod Succ 40 Mg/Ml Vial) 40 mg IVPUSH Q12H [facility] Last Admin: 08/23/23 19:38 Dose: 40 mg Documented By: ARPITA Mineral Oil (Mineral Oil Enema 133 Ml Enema) 133 ml NE DAILY PRN PRN Reason: Constipation Montelukast Sodium (Montelukast Sodium 10 Mg Tablet) 10 mg PO BEDTIME [facility] Last Admin: 08/23/23 20:34 Dose: 10 mg Documented By: ARPITA Morphine Sulfate (Morphine Sulfate 4 Mg/Ml Cartridge) 4 mg IVPUSH Q4H PRN; Protocol PRN Reason: Pain, Severe (Pain Scale 7-10) Last Admin: 08/24/23 04:20 Dose: 4 mg Documented By: ARPITA Non-Formulary Medication (Keflhywgri-Cewzkdzl-Dkqwliawix [Breztri Aerosphere]) 2 inhalation INHALE BID [facility] Omeprazole (Omeprazole 40 Mg Capsule.Dr) 40 mg PO BID PRN PRN Reason: Acid Reflux Ondansetron HCl (Ondansetron Hcl 4 Mg/2 Ml Vial) 4 mg IVPUSH Q8H PRN PRN Reason: Nausea and Vomiting Oxycodone HCl (Oxycodone Hcl Immed Release 5 Mg Tablet) 5 mg PO TID PRN PRN Reason: Pain, Moderate(Pain Scale 4-6) Last Admin: 08/23/23 10:43 Dose: 5 mg Documented By: SMILEY Polyethylene Glycol (Polyethylene Glycol 3350 17 Gm Powd.Pack) 17 gm PO DAILY [facility] Last Admin: 08/23/23 17:11 Dose: 17 gm Documented By: SMILEY Quetiapine Fumarate (Quetiapine Fumarate 400 Mg Tablet) 400 mg PO BEDTIME [facility] Last Admin: 08/23/23 20:34 Dose: 400 mg Documented By: ARPITA Sodium Chloride (0.9 % Sodium Chloride Flush 3 Ml Syringe) [facility] Last Admin: 08/23/23 19:38 Dose: 3 ml Documented By: ARPITA Sucralfate (Sucralfate 1 Gm Tablet) 1 gm PO TID PRN PRN Reason: gastritis Valsartan (Valsartan 160 Mg Tablet) 160 mg PO DAILY [facility]; Protocol Last Admin: 08/23/23 08:32 Dose: 160 mg Documented By: SMILEY Vitamin D (Cholecalciferol (Vitamin D3) 25 Mcg Tablet) 25 mcg PO DAILY [facility] Last Admin: 08/23/23 08:32 Dose: 25 mcg Documented By: SMILEY Zinc Sulfate (Zinc Sulfate 220 Mg Capsule) 440 mg PO DAILY [facility] Last Admin: 08/23/23 08:33 Dose: 440 mg Documented By: SMILEY Zolpidem Tartrate (Zolpidem Tartrate 5 Mg Tablet) 5 mg PO BEDTIME PRN PRN Reason: Insomnia Last Admin: 08/23/23 21:08 Dose: 5 mg Documented By: ARPITA Labs 08/23/23 10:06 08/23/23 10:06 Labs: Laboratory Results - last 24 hr 08/23/23 10:06 MCV 74.5 L MCH 21.8 L MCHC 29.3 L RDW 17.8 H Plt Count 385 MPV 8.8 L Absolute Nucleated RBC 0.000 Nucleated RBC % (auto) 0.0 Anion Gap 15 Estim Creat Clear Calc 57.0 Estimated GFR 55 Random Glucose 154 H Calcium 10.2 Microbiology Microbiology Results: Microbiology 08/22/23 Unknown Urine Culture - Final Urine clean catch - Urine steele top Assessment and Plan (1) Ileus: Status: Acute Plan 53-year-old female with a PMH significant for?asthma/COPD overlap syndrome, chronic pain syndrome, complex regional pain syndrome, BABATUNDE, HTN, hx of TIA, hypothyroidism, fibromyalgia, hypogammaglobulinemia, s/p gastric bypass, and hx of PE on Eliquis among others who presents to the ED with?multiple issues of SOB, abdominal pain and left-sided flank pain with polyuria and increased urinary urgency. Pt will be admitted to the hospital for treatment and further evaluation of acute asthma/COPD overlap exacerbation, JF, and ileus. Severe constipation positive BS Patient with diffuse abdominal pain and distension CT of abdomen and pelvis with distended bowel loops and semi solid material suggesting small bowel stasis Patient on chronic opioids for chronic back pain continue Lactated Ringer's Morphine for pain management Continue sucralfate fleets enema, lactulose Follow BMP Asthma/COPD overlap syndrome exacerbation. Resolved symptoms improving Patient significant SOB, PICKETT, cough, wheezing x6 days, no relief from home steroids or inhalers continue DuoNebs stop solumedrol, guaifenesin as needed , and complete azithromycin 500 mg x 3 days Monitor respiratory status Nephrolithiasis Pt complaining of flank pain, dysuria, polyuria, increased urinary urgency CT of abdomen and pelvis found 2 mm calcification at left UVJ Will treat with IVF, pain management Hx of PE Continue Eliquis Mood disorder Continue home meds HTN continue valsartan Full Code Attending:?Dr. Tello DVT Prophylaxis: On [facility] pay for severe constipation requiring bowel routine Time Spent With Patient Time: Total time managing care of this patient today ____ minutes. Quality Stroke Does the patient have a stroke diagnosis?: No VTE Prior VTE?: No VTE Risk Level:: Medical - moderate - high VTE Device Contraindication: Treatment Not Indicated VTE Drug Contraindication: N/A - Med Ordered
[2023-08-24] MEDS: Lactulose 20 GM/30 ML SOLUTION PO (09:07)
[2023-08-24] MEDS: Cholecalciferol (Vitamin D3) 25 MCG TABLET PO (09:08)
[2023-08-24] MEDS: Valsartan 160 MG TABLET PO (09:08)
[2023-08-24] MEDS: Lidocaine 4 % Patch ADH..PATCH 1 PATCH TRANSDERMA ×2 (09:08→21:12)
[2023-08-24] MEDS: Loratadine 10 MG TABLET PO (09:08)
[2023-08-24] MEDS: polyethylene glycoL 3350 17 GM POWD.PACK PO (09:08)
[2023-08-24] MEDS: Zinc Sulfate 220 MG CAPSULE 440 MG PO (09:08)
[2023-08-24] MEDS: Escitalopram Oxalate 10 MG TABLET PO (09:09)
[2023-08-24] MEDS: Gabapentin 300 MG CAPSULE 600 MG PO ×2 (09:09→21:12)
[2023-08-24] MEDS: Apixaban 2.5 MG TABLET PO ×2 (09:09→21:12)
[2023-08-24] MEDS: Cyanocobalamin (Vitamin B-12) 1,000 MCG TABLET 1000 MCG PO (09:09)
[2023-08-24] MEDS: 0.9 % Sodium Chloride Flush 3 ML SYRINGE IVFLUSH ×2 (09:28→23:43)
[2023-08-24] MEDS: Mineral OiL enema 133 ML ENEMA PR (10:16)
[2023-08-24] MEDS: Azithromycin 500 MG in 0.9 % Sodium Chloride 250 ML 125 MG IV (15:06)
[2023-08-24] MEDS: Montelukast Sodium 10 MG TABLET PO (21:12)
[2023-08-24] MEDS: QUEtiapine Fumarate 400 MG TABLET PO (21:12)
[2023-08-24] MEDS: Zolpidem Tartrate 5 MG TABLET PO (22:16)
[2023-08-25] MEDS: Morphine Sulfate 4 MG/ML CARTRIDGE IVPUSH ×2 (02:30→07:34)
[2023-08-25 03:23] VITALS: BP 120/62; PULSE 62; RESP 16; TEMP 36.5; O2SAT 99
[2023-08-25 07:37] VITALS: BP 128/69; PULSE 72; RESP 18; TEMP 36.3; O2SAT 98
[2023-08-25] MEDS: 0.9 % Sodium Chloride Flush 3 ML SYRINGE IVFLUSH (07:37)
[2023-08-25] MEDS: Valsartan 160 MG TABLET PO (07:37)
[2023-08-25] MEDS: Gabapentin 300 MG CAPSULE 600 MG PO (07:37)
[2023-08-25] MEDS: Cholecalciferol (Vitamin D3) 25 MCG TABLET PO (07:38)
[2023-08-25] MEDS: Zinc Sulfate 220 MG CAPSULE 440 MG PO (07:38)
[2023-08-25] MEDS: Cyanocobalamin (Vitamin B-12) 1,000 MCG TABLET 1000 MCG PO (07:38)
[2023-08-25] MEDS: Loratadine 10 MG TABLET PO (07:38)
[2023-08-25] MEDS: Apixaban 2.5 MG TABLET PO (07:38)
[2023-08-25] MEDS: polyethylene glycoL 3350 17 GM POWD.PACK PO (07:39)
[2023-08-25] MEDS: Lidocaine 4 % Patch ADH..PATCH 1 PATCH TRANSDERMA (07:39)
[2023-08-25] MEDS: Fluticasone Propionate Nasal 16 GM SPRAY 1 SPRAY NOSTRIL-B (07:39)
[2023-08-25] MEDS: Albuterol/Iprat 2.5/0.5MG 3 ML AMPUL.NEB INHALE (08:07)
[2023-08-25 08:08] VITALS: PULSE 69; RESP 18; O2SAT 99
[2023-08-25] MEDS: Escitalopram Oxalate 10 MG TABLET PO (08:50)
--- NOTE | 2023-08-25 10:44 | MHC.CM.PN ---
Patient is discharged to home with resumption of [employer] services. She has arranged for transportation home.
--- NOTE | 2023-08-25 10:52 | P.PNGI_ITS ---
Subjective Subjective Date of Service: 08/25/23 Interval History: Seen at bedside. Reports considerably more abd pain and nausea. Still without BM. Critical Care Time (minutes): 0 Physical Exam 2 Vital Signs: Vital Signs: Last Vital Signs Temp 97.3 F 08/25/23 07:37 Pulse 69 08/25/23 08:08 Resp 18 08/25/23 08:08 BP 128/69 08/25/23 07:37 Pulse Ox 98 08/25/23 07:37 O2 Del Method Room Air 08/25/23 07:37 BMI result Body Mass Index 39.6 Gen appear: Ill appearing Abd: soft, diffusely tender Objective Data Labs 08/23/23 10:06 08/23/23 10:06 Microbiology Microbiology Results: Microbiology 08/22/23 Unknown Urine clean catch - Urine steele top Urine Culture - Final Procedures Date of Service Date of Service: 08/25/23 Progress Note: A&P Assessment and plan (1) Constipation: Status: Acute (2) Ileus: Status: Acute Plan Clinically worse. Would recommend repeat CT abd/pel with contrast to r/o SBO, ileus, CIPO. Pls keep NPO for now Time Spent With Patient Time: Total time managing care of this patient today ____ minutes. Quality Stroke Does the patient have a stroke diagnosis?: No VTE Prior VTE?: No VTE Risk Level:: Medical - moderate - high VTE Device Contraindication: Treatment Not Indicated VTE Drug Contraindication: N/A - Med Ordered
[2023-08-25] MEDS: Ibuprofen 400 MG TABLET PO (13:46)
[2023-08-25] MEDS: Lactulose 20 GM/30 ML SOLUTION PO (13:47)
--- NOTE | 2023-08-25 15:31 | P.DS_ITS ---
DS: Providers Provider Date of Service: 08/25/23 Date of admission: 08/22/23 12:10 Primary care physician: Claudia Villatoro MD Consults: 08/23/23 13:47 Consult to Gastroenterology Routine Consulting Provider: Eboni Paredes Reason for consultation: ileus DS: Diagnosis Discharge Diagnosis (1) Constipation: Status: Acute (2) Ileus: Status: Acute DS: Summary Hospital Course Hospital Course: History of presenting illness: Date of Service: 08/22/23 Attending physician on admission: Kelly Boo Chief Complaint: Shortness of breath Pt is a 53-year-old female with a PMH significant for?asthma/COPD overlap syndrome, chronic pain syndrome, complex regional pain syndrome, BABATUNDE, HTN, hx of TIA, hypothyroidism, fibromyalgia, hypogammaglobulinemia, s/p gastric bypass, and hx of PE on Eliquis among others who presents to the ED with?multiple issues. Pt complains of increasing SOB, PICKETT, cough, and wheezing for the past six days. The patient has been taking prednisone 10mg daily, using her inhalers and nebulizer treatments without significant relief. Patient states she simply cannot breathe as is having a difficult time performing ADLs. Subjective fever and chills at home. Pt also complains of abdominal pain and bloating x4days with nausea and 1-2 episodes of vomiting yesterday. Patient continued to experience nausea today with no vomiting, no has been able to drink some apple juice today. Patient states last bowel movement was 4 days ago. She has also been having sided flank pain the past few days with polyuria, dysuria, and increased urinary urgency. Denies any hematuria. No chest pain/pressure, palpitations. In the ED patient was afebrile but tachycardic up to 114, satting at 98% on RA. Labs were significant for H&H 9.1/31.4, bicarb 15, creatinine 1.91. UA negative for UTI. CXR showed low lung volumes without focal consolidation. CT of abdomen and pelvis found no dilation of urinary collecting system but a 2 mm ca lcification at the left ureterovesical junction, okay also found distended loops of bowel and semi solid material suggesting small bowel stasis, no abscesses or discrete to transition zones, being an incidentally found left femoral head avascular necrosis without collapse. Pt was treated with and Solu-Medrol, guaifenesin, morphine, ondansetron, IVF, DuoNebs, and MiraLax. Pt will be admitted to the hospital for treatment and further evaluation of acute asthma/COPD overlap exacerbation, JF, and ileus. Hospital course: 53-year-old female with a PMH significant for?asthma/COPD overlap syndrome, chronic pain syndrome, complex regional pain syndrome, BABATUNDE, HTN, hx of TIA, hypothyroidism, fibromyalgia, hypogammaglobulinemia, s/p gastric bypass, and hx of PE on Eliquis among others who presents to the ED with?multiple issues of SOB, abdominal pain and left-sided flank pain with polyuria and increased urinary urgency. Pt will be admitted to the hospital for treatment and further evaluation of acute asthma/COPD overlap exacerbation, JF, and ileus. Severe constipation , likely due to chronic opioid use for back pain patient treated with IV fluids, laxatives , Fleet enema CT abdomen and pelvis showed distended bowel loops and semi-solid material suggesting small bowel stasis, patient responded to bowel regimen had normal bowel movement abdominal pain improved therefore being discharged home with strong recommendation to be narcotic medication, MiraLax added. Asthma/COPD overlap syndrome exacerbation, treated with steroids, cough medication and azithromycin and updraft treatment, shortness of breath improved recommend resume home medications. Nephrolithiasis, patient on admission complained of flank pain, dysuria, polyuria, increased urinary urgency, CT of abdomen and pelvis found 2 mm calcification at left UVJ Treated with IV fluids and analgesics and likely passed the stone back pain resolved recommend po fluids. Hx of PE Continue Eliquis Mood disorder Continue home meds HTN blood pressure remains stable, continue valsartan. Time Spent with Patient Time attestation: Total time managing care of this patient today ____ minutes. Discharge coordination time: Greater than 30 minutes Quality: Safe Use of Opioids Does Pt have an Active Cancer Diagnosis on the Problem List?: No Quality: Stroke Does the patient have a stroke diagnosis?: No Physical Exam Vital Signs: Vital Signs: Last Vital Signs Temp 97.3 F 08/25/23 07:37 Pulse 69 08/25/23 08:08 Resp 18 08/25/23 08:08 BP 128/69 08/25/23 07:37 Pulse Ox 98 08/25/23 07:37 O2 Del Method Room Air 08/25/23 07:37 BMI result Body Mass Index 39.6 Const: Other: General awake alert in no acute distress. Neck no JVD. CVS regular rate rhythm, Respiratory lungs clear to auscultation, no respiratory distress, no wheeze, no rhonchi. Gastrointestinal abdomen soft, obese, mild tenderness to deep palpation both lower quadrants improved on repeat examination after Motrin,bowel sounds audible, no guarding , no rigidity. Back no CVA tenderness Extremities no edema. Neuro nonfocal Skin no rash Psych appropriate affect Discharge Plan Discharge Anticipated Discharge Date/Time: 08/23/23 12:21 Patient Disposition: Home, Self-Care Discharge Diagnosis: Acute exacerbation of asthma/COPD Acute kidney injury Severe constipation Abdominal pain Referrals: Claudia Villatoro MD [Primary Care Provider] - 1 Week Discharge Medications: New polyethylene glycol 3350 17 gram Powder In Packet 17 g PO DAILY Qty: 30 0RF Continued ondansetron 4 mg tablet,disintegrating 4 mg PO TID PRN (Reason: nausea and vomiting) 5 Days Qty: 20 0RF Galzin 50 mg (zinc) capsule 100 mg PO DAILY 30 Days Qty: 60 1RF sucralfate 1 gram tablet 1 g PO TID PRN (Reason: gastritis ) 14 Days Qty: 42 0RF gabapentin 300 mg capsule 600 mg PO BID Qty: 120 11RF Privigen 10 % solution 40 g IV Q4W Qty: 400 11RF Rx Instructions: PER PATIENT, NEXT DOSE ~08/25/23 montelukast 10 mg tablet 10 mg PO BEDTIME Eliquis 2.5 mg Tablet 2.5 mg PO BID Qty: 180 0RF dicyclomine 20 mg tablet 20 mg PO QID PRN (Reason: abdominal pain) Qty: 20 0RF escitalopram oxalate 10 mg tablet 1 tab PO DAILY zolpidem 10 mg tablet 1 tab PO BEDTIME PRN (Reason: Insomnia) valsartan 160 mg tablet 1 tab PO DAILY cholecalciferol (vitamin D3) 25 mcg (1,000 unit) tablet 1 tab PO DAILY acetaminophen 500 mg tablet 500 mg PO Q6H PRN (Reason: pain) Qty: 20 0RF omeprazole 40 mg capsule,delayed release(DR/EC) 40 mg PO BID PRN (Reason: Acid Reflux) benzonatate 100 mg capsule 100 mg PO TID PRN (Reason: Cough) loratadine 10 mg tablet 10 mg PO DAILY quetiapine 400 mg tablet 400 mg PO BEDTIME lidocaine 5 % adhesive patch,medicated 1 patch topical BID Rx Instructions: leave on most painful area for up to 12 hrs cyanocobalamin (vitamin B-12) 1,000 mcg tablet 1,000 mcg PO DAILY albuterol sulfate 2.5 mg /3 mL (0.083 %) solution for nebulization 2.5 mg inhalation Q4H PRN (Reason: shortness of breath or wheezing) 30 Days Qty: 360 11RF (DME) FreeStyle Lite Strips Strip See Rx Instructions .ROUTE BID Qty: 10 Rx Instructions: As directed betamethasone dipropionate 0.05 % lotion 1 appl topical BID PRN (Reason: psoriasis) Rx Instructions: apply to scalp calcipotriene 0.005 % ointment 1 appl topical BID PRN (Reason: flares) hydroxyzine HCl 25 mg tablet 25 mg PO TID PRN (Reason: itch) fluocinonide 0.05 % ointment 1 appl topical BID PRN (Reason: flares) fluticasone propionate 50 mcg/actuation spray,suspension 50 mcg intranasal DAILY Rx Instructions: 1 spray into each nostril (DME) nebulizers Misc See Rx Instructions .ROUTE Rx Instructions: As directed Breztri Aerosphere 160-9-4.8 mcg/actuation HFA aerosol inhaler 2 inh inhalation BID 30 Days Qty: 10.7 11RF naloxone 4 mg/actuation spray,non-aerosol 4 mg intranasal Q2M PRN (Reason: opioid overdose) 1 Days Qty: 2 2RF Rx Instructions: spray 1 dose into ONE nostril; alternate nostrils w each dose until help arrives oxycodone 5 mg tablet 5 mg PO TID PRN (Reason: pain) 30 Days Qty: 90 0RF Rx Instructions: Partial Fill upon patient request. Discontinued prednisone 10 mg tablet 10 mg PO BID Discharge Orders: Discharge Order (Routine); Ordered 08/25/23 Ordered By: Damir Deal Diet: Advance to usual diet Activity on Discharge: As tolerated Stand Alone Forms: Patient Portal Discharge page Print Language: Guatemalan Care Plan Goals: Abdominal pain and constipation resolved Take MiraLax daily avoid narcotics, drink fluids Ambulate as tolerated follow low-calorie diet Health Concerns: Chronic pain Asthma/COPD Plan of Treatment: Follow-up with PCP call for appointment Assessment: As above Discharge Date/Time: 08/25/23 16:52
[2023-08-25 15:34] VITALS: BP 121/60; PULSE 62; RESP 18; TEMP 36.8; O2SAT 94
== END 2023-08-25 16:52 | disposition home or self-care (01) | DRG 254 ==
LOC: HO.ED 11:47 → HO.EDOVER 12:19 → HO.S3 23:16
PROVIDERS: Admitting Provider Student in an Organized Health Care Education/Training Program; Emergency Provider Emergency Medicine; PCP Internal Medicine; Visit Provider Hospitalist
DX: K59.03 Drug induced constipation (principal); E11.40 Type 2 diabetes mellitus with diabetic neuropathy, unspecified; J45.901 Unspecified asthma with (acute) exacerbation; E03.9 Hypothyroidism, unspecified; G89.4 Chronic pain syndrome; T40.2X5A Adverse effect of other opioids, initial encounter; N20.0 Calculus of kidney; M54.9 Dorsalgia, unspecified; G47.33 Obstructive sleep apnea (adult) (pediatric); Z86.711 Personal history of pulmonary embolism; Z98.84 Bariatric surgery status; Z79.01 Long term (current) use of anticoagulants; Z79.51 Long term (current) use of inhaled steroids; Z79.891 Long term (current) use of opiate analgesic; Z79.899 Other long term (current) drug therapy
CPT/HCPCS: 36415; 71045; 74176; 80048; 80053; 81001; 82803; 85025; 85027; 87086; 94640; 99285; J0456; J2270; J2405; J2920; J2930

== ENCOUNTER → 2023-08-22 12:10 | Outpatient (BNV) | payer OTHER, SELFPAY | PROVIDERS: Admitting Provider Student in an Organized Health Care Education/Training Program; Emergency Provider Emergency Medicine; PCP Internal Medicine; Visit Provider Nurse Practitioner Acute Care | DX: K59.00 Constipation, unspecified (principal); K56.7 Ileus, unspecified | CPT/HCPCS: 99223; 99232; 99239 ==

== ENCOUNTER → 2023-08-22 12:10 | Outpatient (BNV) | payer OTHER, SELFPAY | PROVIDERS: Admitting Provider Student in an Organized Health Care Education/Training Program; Emergency Provider Emergency Medicine; PCP Internal Medicine; Visit Provider Internal Medicine | DX: K59.00 Constipation, unspecified (principal); K56.7 Ileus, unspecified | CPT/HCPCS: 99222; 99232 ==

== ENCOUNTER 2023-08-31 09:22 | Outpatient (AMB) | payer OTHER, SELFPAY ==
[2023-08-31 09:31] VITALS: PULSE 83; RESP 12; O2SAT 99; BMI 36.8
--- NOTE | 2023-08-31 09:31 | MHC.OFFVIS ---
Intake Vital Signs 08/31/23 09:31 Height 4 ft 11 in Weight 182 lb BMI 36.8 Blood Pressure Location Lt brachial Position Sitting Respiration 12 Pulse 83 Pulse Source Pulse Oximeter Pulse Oximetry (%) 99 Oxygen Delivery Method Room Air Intake Visit Reasons: Pill Count/confirmed Intake Note: Pt states she last took oxy 08/31/23 @ 8:30am Allergies No Known Allergies Allergy (Verified 08/31/23 09:33) Medication List - Last Reconciled 08/31/23 by Celeste Mallory LPN acetaminophen 500 mg PO Q6H PRN albuterol sulfate 2.5 mg (3 mL) inhalation Q4H PRN 30 days apixaban (Eliquis) 2.5 mg PO BID benzonatate 100 mg PO TID PRN betamethasone dipropionate 0.05% 1 appl topical BID PRN blood sugar diagnostic (FreeStyle Lite Strips) As directed [id number] 160-9-4.8 mcg/actuation (Breztri Aerosphere) 2 inhalations inhalation BID 30 days calcipotriene 0.005% 1 appl topical BID PRN cholecalciferol (vitamin D3) 1 tab PO DAILY cyanocobalamin (vitamin B-12) 1,000 mcg PO DAILY dicyclomine 20 mg PO QID PRN escitalopram oxalate 1 tab PO DAILY fluocinonide 0.05% 1 appl topical BID PRN fluticasone propionate 50 mcg/actuation 50 mcg intranasal DAILY gabapentin 600 mg (2 x 300 mg) PO BID hydroxyzine HCl 25 mg PO TID PRN immun glob G(IgG)-pro-IgA 0-50 10 % (Privigen) 40 grams IV Q4W lidocaine 5% 1 patch topical BID loratadine 10 mg PO DAILY montelukast 10 mg PO BEDTIME naloxone 4 mg/actuation 4 mg intranasal Q2M PRN 1 day nebulizers As directed omeprazole 40 mg PO BID PRN ondansetron 4 mg PO TID PRN 5 days oxycodone 5 mg PO TID PRN 30 days polyethylene glycol 3350 17 grams PO DAILY quetiapine 400 mg PO BEDTIME sucralfate 1 g PO TID PRN 14 days valsartan 1 tab PO DAILY zinc acetate (Galzin) 100 mg (2 x 50 mg (zinc)) PO DAILY 30 days zolpidem 1 tab PO BEDTIME PRN HPI HPI Comments History of Present Illness Details Maye is a very pleasant 53 year old female who presents to the office today for follow up chronic pain and chronic opioid therapy management. Patient is prescribed oxycodone 5mg tabs, take one tablet three times daily. Patient arrived today with the expectation of having 60 pills, she presented 65 pills which were counted in the presence of two staff members and returned to the patient in the original prescription bottle. This demonstrates responsible attitude toward patient's opioid medications. Pain is reported today as 4/10 and last dose of pain medication was taken at 08:30 this morning. Pain is well managed on current opioid regimen with improvement in mobility and overall functioning. She denies side effects including nausea, constipation, somnolence, weakness, chest pain or syncope. Patient has also been using topical lidocaine patches and states this is also helping her pain. She continues with some pain in the right knee, has appt with ortho next week. Previously: She was suspended for 6 months because UDS demonstrated tramadol in her urine. She was admitted slightly earlier on the request of her PCP - she developed renal insufficiency and she was taking large doses of NSAIDs to help her pain. Her risk of Opioid was low.? When she come back from suspension her opioid risk will become moderate. 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 Dizziness Headache Elevated lactic acid level Bronchitis Headache, migraine Asthma exacerbation Cough BABATUNDE (obstructive sleep apnea) Chronic pain syndrome Spondylosis of lumbar spine Low back pain Complex regional pain syndrome i of left lower limb Diabetic neuropathy Laryngotracheitis Essential hypertension Type 2 diabetes mellitus with unspecified complications Morbid obesity Anemia Back pain Pleuritic chest pain Fibromyalgia Hypothyroidism TIA (transient ischemic attack) Diet-controlled diabetes mellitus Depression Arthritis Sleep apnea Hypogammaglobulinemia Pulmonary embolism Surgical History History of esophagogastroduodenoscopy (EGD) Hx of colonoscopy S/P total abdominal hysterectomy History of cholecystectomy History of bariatric surgery Family History Mother Diabetes Stroke Family/Other Diabetes Father Diabetes Maternal Aunt Cancer Social History Household Members: None Housing: Apartment Are you a primary childcare provider to a significant other at home: No Do you presently have visiting nurse 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 Answers questions appropriately. Fully engaged in examination. Skin: warm, dry, intact. HEENT: Normocephalic. Hearing intact. Cardiac: External chest normal in appearance. Respiratory: No cough, audible wheezing or stridor. Abdomen: without gross distension. MS: No obvious swelling or deformities. Able to transition from sit to stand unassisted. Neurological: Oriented to person, place, time and situation. Thought process intact. ambulates unassisted with antalgic gait. Psychiatric: Appropriate mood and affect. Good judgment and insight. Assessment & Plan Assessment & Plan (1) Knee pain, left: Code(s): M25.562 - Pain in left knee Qualifiers: Chronicity: chronic Qualified Code(s): M25.562 - Pain in left knee; G89.29 - Other chronic pain (2) Low back pain: Code(s): M54.5 - Low back pain Qualifiers: Chronicity: chronic Back pain laterality: bilateral Sciatica presence: without sciatica Qualified Code(s): M54.50 - Low back pain, unspecified; G89.29 - Other chronic pain (3) Disc degeneration, lumbosacral: Code(s): M51.37 - Other intervertebral disc degeneration, lumbosacral region (4) Spondylosis of lumbar joint: Code(s): M47.816 - Spondylosis without myelopathy or radiculopathy, lumbar region (5) Spondylosis of cervical spine: Code(s): M47.812 - Spondylosis without myelopathy or radiculopathy, cervical region (6) Osteoporosis: Code(s): M81.0 - Age-related osteoporosis without current pathological fracture (7) Sacroiliac joint dysfunction of left side: Code(s): M53.3 - Sacrococcygeal disorders, not elsewhere classified (8) Left hip pain: Code(s): M25.552 - Pain in left hip Plan Maye is a very pleasant 53 year old female who presented to the office today for follow up chronic pain and chronic opioid medication management. Masspat was reviewed and without concerns. No obvious signs of diversion, abuse or misuse of the opioid medications. Will send in prescription for oxycodone 5mg TID with an advanced date of 09/20/2023 Follow up with ortho next week as planned All questions and concerns have been answered and patient agrees with the plan. Follow up in 1 month, sooner if needed. Medications: Refilled oxycodone Partial Fill upon patient request. 5 mg PO TID 30 days PRN 90 tabs 0RF pain Coding Level of Care Code Est Pt Level 3 (97110) Diagnoses Chronic pain of left knee M25.562; G89.29 Chronicity: chronic Chronic bilateral low back pain without sciatica M54.50; G89.29 Chronicity: chronic Back pain laterality: bilateral Sciatica presence: without sciatica Disc degeneration, lumbosacral M51.37 Spondylosis of lumbar joint M47.816 Spondylosis of cervical spine M47.812 Osteoporosis M81.0 Sacroiliac joint dysfunction of left side M53.3 Left hip pain M25.552
== END 2023-08-31 09:47 | disposition home or self-care (01) ==
PROVIDERS: PCP Internal Medicine; Visit Provider Registered Nurse Emergency
DX: M25.562 Pain in left knee (principal); G89.29 Other chronic pain; M54.50 Low back pain, unspecified; M51.37 Other intervertebral disc degeneration, lumbosacral region; M47.816 Spondylosis without myelopathy or radiculopathy, lumbar region; M47.812 Spondylosis without myelopathy or radiculopathy, cervical region; M81.0 Age-related osteoporosis without current pathological fracture; M53.3 Sacrococcygeal disorders, not elsewhere classified; M25.552 Pain in left hip
CPT/HCPCS: 99213

== ENCOUNTER → 2023-08-31 09:22 | Outpatient (BNVA) | payer OTHER, SELFPAY | PROVIDERS: PCP Internal Medicine; Visit Provider Registered Nurse Emergency | DX: Z51.81 Encounter for therapeutic drug level monitoring (principal); F11.20 Opioid dependence, uncomplicated; M25.562 Pain in left knee; M54.50 Low back pain, unspecified; M51.37 Other intervertebral disc degeneration, lumbosacral region; M47.816 Spondylosis without myelopathy or radiculopathy, lumbar region; M47.812 Spondylosis without myelopathy or radiculopathy, cervical region; M81.0 Age-related osteoporosis without current pathological fracture; M53.3 Sacrococcygeal disorders, not elsewhere classified; M25.552 Pain in left hip; G89.29 Other chronic pain | CPT/HCPCS: 99212 ==

== ENCOUNTER 2023-09-07 09:53 | Outpatient (REF) | payer OTHER, SELFPAY | END 2023-09-07 09:54 | disposition home or self-care (01) | LOC: HO.HOSX 09:53 | PROVIDERS: Visit Provider Physician Assistant | DX: Z13.89 Encounter for screening for other disorder (principal) ==

== ENCOUNTER 2023-09-28 09:49 | Outpatient (AMB) | payer OTHER, SELFPAY ==
--- NOTE | 2023-09-28 10:03 | A.OFFVIS_ITS ---
Intake Vital Signs 09/28/23 10:04 Height 4 ft 11 in Weight 175 lb 8 oz BMI 35.4 BP 140/65 H Blood Pressure Location Lt brachial Position Sitting Respiration 16 Pulse 78 Pulse Source Pulse Oximeter Pulse Oximetry (%) 96 Oxygen Delivery Method Room Air Intake Visit Reasons: Medication Count/lvm Allergies No Known Allergies Allergy (Verified 09/28/23 10:02) HPI HPI Comments History of Present Illness Details Maye is a very pleasant 53 year old female who presents to the office today, accompanied by her granddaughter, for follow up chronic pain and chronic opioid therapy management. Patient is prescribed oxycodone 5mg tabs, take one tablet three times daily. Patient arrived today with the expectation of having 69 pills, she presented 70 pills which were counted in the presence of two staff members and returned to the patient in the original prescription bottle. This demonstrates responsible attitude toward patient's opioid medications. Pain is reported today as 4/10 and last dose of pain medication was taken at 08:30 this morning. Pain is well managed on current opioid regimen with improvement in mobility and overall functioning. She denies side effects including nausea, constipation, somnolence, weakness, chest pain or syncope. Previously: She was suspended for 6 months because UDS demonstrated tramadol in her urine. She was admitted slightly earlier on the request of her PCP - she developed renal insufficiency and she was taking large doses of NSAIDs to help her pain. Her risk of Opioid was low.? When she come back from suspension her opioid risk will become moderate. 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 Dizziness Headache Elevated lactic acid level Bronchitis Headache, migraine Asthma exacerbation Cough BABATUNDE (obstructive sleep apnea) Chronic pain syndrome Spondylosis of lumbar spine Low back pain Complex regional pain syndrome i of left lower limb Diabetic neuropathy Laryngotracheitis Essential hypertension Type 2 diabetes mellitus with unspecified complications Morbid obesity Anemia Back pain Pleuritic chest pain Fibromyalgia Hypothyroidism TIA (transient ischemic attack) Diet-controlled diabetes mellitus Depression Arthritis Sleep apnea Hypogammaglobulinemia Pulmonary embolism Surgical History (Updated 09/02/23 @ 00:03 by Titi Camilo) History of esophagogastroduodenoscopy (EGD) Hx of colonoscopy S/P total abdominal hysterectomy History of cholecystectomy History of bariatric surgery Family History Mother Diabetes Stroke Family/Other Diabetes Father Diabetes Maternal Aunt Cancer Household Members: None Housing: Apartment Are you a primary behavioral health care manager to a significant other at home: No Do you presently have visiting nurse or other home services: 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) Alcohol intake: former Patient Tobacco Use Status: Never used Tobacco e-Cigarette/Vaping Use: Never Used Second Hand Smoke Exposure: No Substance Use Type: Opiates Advance Directives Date on File: 05/23/21 service: No Current occupational status: unemployed and disabled Review of Systems Const All systems reviewed & are unremarkable except as noted in HPI and below Physical Exam Vital Signs: Last Vital Signs Pulse 78 09/28/23 10:04 Resp 16 09/28/23 10:04 BP 140/65 H 09/28/23 10:04 Pulse Ox 96 09/28/23 10:04 Oxygen Delivery Method Room Air 09/28/23 10:04 BMI result Body Mass Index 35.4 General: awake, alert, oriented. Answers questions appropriately. Fully engaged in examination. Skin: warm, dry, intact. HEENT: Normocephalic. Hearing intact. Cardiac: External chest normal in appearance. Respiratory: No cough, audible wheezing or stridor. Abdomen: without gross distension. MS: No obvious swelling or deformities. Able to transition from sit to stand unassisted. Neurological: Oriented to person, place, time and situation. Thought process intact. Psychiatric: Appropriate mood and affect. Good judgment and insight. Assessment & Plan Assessment & Plan (1) Knee pain, left: Code(s): M25.562 - Pain in left knee Qualifiers: Chronicity: chronic Qualified Code(s): M25.562 - Pain in left knee; G89.29 - Other chronic pain (2) Low back pain: Code(s): M54.5 - Low back pain Qualifiers: Back pain laterality: bilateral Chronicity: chronic Sciatica presence: without sciatica Qualified Code(s): M54.50 - Low back pain, unspecified; G89.29 - Other chronic pain (3) Disc degeneration, lumbosacral: Code(s): M51.37 - Other intervertebral disc degeneration, lumbosacral region (4) Spondylosis of lumbar joint: Code(s): M47.816 - Spondylosis without myelopathy or radiculopathy, lumbar region (5) Spondylosis of cervical spine: Code(s): M47.812 - Spondylosis without myelopathy or radiculopathy, cervical region (6) Osteoporosis: Code(s): M81.0 - Age-related osteoporosis without current pathological fracture (7) Sacroiliac joint dysfunction of left side: Code(s): M53.3 - Sacrococcygeal disorders, not elsewhere classified (8) Left hip pain: Code(s): M25.552 - Pain in left hip Plan Maye is a very pleasant 53 year old female who presented to the office today for follow up chronic pain and chronic opioid medication management. Masspat was reviewed and without concerns. No obvious signs of diversion, abuse or misuse of the opioid medications. Will send in prescription for oxycodone 5mg TID with an advanced date of 10/21/2023 All questions and concerns have been answered and patient agrees with the plan. Follow up in 1 month, sooner if needed. Medications: Refilled oxycodone Partial Fill upon patient request. 5 mg PO TID PRN 90 tabs 0RF pain 30 days Coding Level of Care Code Est Pt Level 4 (03456) Diagnoses Chronic pain of left knee M25.562; G89.29 Chronicity: chronic Chronic bilateral low back pain without sciatica M54.50; G89.29 Back pain laterality: bilateral Chronicity: chronic Sciatica presence: without sciatica Disc degeneration, lumbosacral M51.37 Spondylosis of lumbar joint M47.816 Spondylosis of cervical spine M47.812 Osteoporosis M81.0 Sacroiliac joint dysfunction of left side M53.3 Left hip pain M25.552
[2023-09-28 10:04] VITALS: BP 140/65; PULSE 78; RESP 16; O2SAT 96; BMI 35.4
== END 2023-09-28 10:24 | disposition home or self-care (01) ==
PROVIDERS: PCP Internal Medicine; Visit Provider Registered Nurse Emergency
DX: G89.29 Other chronic pain (principal); M25.562 Pain in left knee; M54.50 Low back pain, unspecified; Z79.891 Long term (current) use of opiate analgesic; M51.37 Other intervertebral disc degeneration, lumbosacral region; M47.816 Spondylosis without myelopathy or radiculopathy, lumbar region; M47.812 Spondylosis without myelopathy or radiculopathy, cervical region; M81.0 Age-related osteoporosis without current pathological fracture
CPT/HCPCS: 99214

== ENCOUNTER → 2023-09-28 09:49 | Outpatient (BNVA) | payer OTHER, SELFPAY | PROVIDERS: PCP Internal Medicine; Visit Provider Registered Nurse Emergency | DX: Z51.81 Encounter for therapeutic drug level monitoring (principal); F11.20 Opioid dependence, uncomplicated; M25.562 Pain in left knee; M54.50 Low back pain, unspecified; M51.37 Other intervertebral disc degeneration, lumbosacral region; M47.816 Spondylosis without myelopathy or radiculopathy, lumbar region; M47.812 Spondylosis without myelopathy or radiculopathy, cervical region; M81.0 Age-related osteoporosis without current pathological fracture; M53.3 Sacrococcygeal disorders, not elsewhere classified; M25.552 Pain in left hip; G89.29 Other chronic pain | CPT/HCPCS: 99212 ==

== ENCOUNTER 2023-10-11 10:45 | Outpatient (REF) | payer OTHER, SELFPAY ==
[2023-10-11 14:14] LABS: MANUAL DIFF FLAG NO
[2023-10-11 14:27] LABS: Basophils Percent Auto 0.2 % (0-2); Eosinophils Absolute Auto 0.2 X10*3/uL (0.0-0.4); Eosinophils Percent Auto 1.6 % (0-4); Hematocrit 28.5 % (37.0-47.0); Hemoglobin 8.3 g/dl (12.0-16.0); Imm Gran Abs Auto 0.09 X10*3/uL (0.00-0.03); Imm Gran Pct Auto 0.9 % (0.0-0.4); Lymphocytes Absolute Auto 0.8 X10*3/uL (1.2-4.9); Lymphocytes Percent Auto 8.2 % (20-40); Mean Corpuscular HGB Conc 29.1 g/dl (31.0-35.0); Mean Corpuscular Hemoglobin 22.1 pg (27.0-33.0); Mean Platelet Volume 8.5 fL (9.4-12.3); Monocytes Percent Auto 9.8 % (2-11); Neutrophils Absolute Auto 8.1 x10*3/uL (2.0-8.3); Neutrophils Percent Auto 79.3 % (45-73); Platelet Count 292 X10*3/uL (160-400); Red Blood Count 3.75 X10*6/uL (4.20-5.50); Red Cell Distribution Width 21.2 % (11.0-16.0); White Blood Count 10.2 X10*3/uL (4.8-10.8)
[2023-10-11 15:09] LABS: Alanine Aminotransferase 26 U/L (0-31); Albumin Level 3.3 g/dL (3.5-5.0); Alkaline Phosphatase 67 U/L (39-117); Anion Gap 10 (12-20); Aspartate Amino Transferase 28 U/L (5-31); Bilirubin Total 0.3 mg/dL (0.0-1.0); Blood Urea Nitrogen 25 mg/dL (9-16); Calcium 9.6 mg/dL (8.4-10.2); Carbon Dioxide 26 mmol/L (22-29); Chloride 107 mmol/L (96-108); Estimated Glomerular Filt Rate 38; Glucose Random 78 mg/dL (60-115); Sodium 138 mmol/L (135-145)
[2023-10-11 15:18] LABS: Estimated Average Glucose 120 mg/dL; Hemoglobin A1c % 5.8 % (<6.0)
== END 2023-10-11 10:46 | disposition home or self-care (01) ==
LOC: HO.LAB 10:45
PROVIDERS: PCP Internal Medicine; Visit Provider Internal Medicine
DX: D64.89 Other specified anemias (principal); E11.9 Type 2 diabetes mellitus without complications; J30.89 Other allergic rhinitis; L60.0 Ingrowing nail
CPT/HCPCS: 36415; 80053; 83036; 85025

== ENCOUNTER 2023-10-11 10:56 | Outpatient (REF) | payer OTHER, SELFPAY | END 2023-10-11 10:57 | disposition home or self-care (01) | LOC: HO.MDS 10:56 | PROVIDERS: Visit Provider Hospitalist | DX: D80.1 Nonfamilial hypogammaglobulinemia (principal) | CPT/HCPCS: 96365; 96366 ==

== ENCOUNTER 2023-10-12 11:06 | Outpatient (REF) | payer OTHER, SELFPAY ==
--- NOTE | ~2023-10-12 | MR_ITS ---
EXAMINATION: MR BRAIN WITHOUT AND WITH CONTRAST CLINICAL INFORMATION: Bilateral ear pain. Trigeminal neuralgia. COMPARISON: CT scan of the head 05/16/2023. TECHNIQUE: Multiplanar, multisequence MRI of the brain was obtained before and after the intravenous administration of 8 mL Gadavist. FINDINGS: The right cisternal trigeminal nerve is slightly more prominent compared to the left. However, there is no vascular compression of the cisternal segments, and there is no abnormal signal or enhancement of the trigeminal nerves or trigeminal root entry zones bilaterally. The CSF in Meckel's caves is preserved. No cerebellopontine angle lesion is seen. There is no abnormal leptomeningeal enhancement corresponding to basilar cisterns. The third division of the trigeminal nerve is normal along its course in the rn discharge spaces. No marrow signal abnormality is seen within the mandible. The cavernous sinuses opacify symmetrically. The orbits are normal. The 7th and 8th cranial nerve complexes are normal in course and caliber. No signal abnormality is seen in the inner ear structures on the precontrast axial T1-weighted sequence. Fluid signal is preserved within the cochleae, semicircular canals, and vestibules on the high-resolution axial FIESTA sequence. No cerebellopontine angle lesion is noted. There is no abnormal labyrinthine or intracanalicular enhancement on postcontrast imaging. No diffusion abnormalities are identified to suggest an acute or subacute infarct. There is mild commensurate prominence of the ventricles and sulci. No mass effect or midline shift is seen. There are multiple scattered foci of hyperintense T2 and FLAIR signal in the periventricular and subcortical white matter, which are nonspecific. They may be consistent with sequelae of chronic microvascular ischemic changes, although demyelination cannot be excluded in the correct clinical setting. None of these foci demonstrate abnormal enhancement. No extra-axial fluid collections are seen. The brainstem and cerebellum are normal. On postcontrast imaging, there is no abnormal parenchymal or leptomeningeal enhancement. The infundibulum and pituitary gland are unremarkable. The craniovertebral junction, marrow signal, and midline structures are normal; there is hyperostosis frontalis interna. The major intracranial flow-voids at the level of the k[place] of [place] are preserved. The dural venous sinus flow-voids are maintained. The patient is edentulous in the mandible and the maxilla. There is moderate fluid in the right mastoid air cells, and right petrous bone. The nasal septum is deviated to the left and there are left-sided bony nasal septal spurs. The paranasal sinuses are well-aerated. MR/MR head/brain wo/w con IMPRESSION: 1. There are no acute bleeds or territorial infarcts. No masses are demonstrated. There is no abnormal enhancement. 2. There are multiple scattered foci of hyperintense T2 and FLAIR signal in the white matter as described above. Correlate clinically. 3. There is slight asymmetry of the caliber of the 5th cranial nerves, larger on the right, but there is no abnormal signal or enhancement. The internal auditory canals and CP angles appear normal bilaterally. 4. There is moderate fluid in the right mastoid air cells and right petrous bone.
[2023-10-12] MEDS: gadobutroL 10 ML VIAL IVPUSH (12:04)
== END 2023-10-12 11:07 | disposition home or self-care (01) ==
LOC: HO.MRI 11:06
PROVIDERS: PCP Internal Medicine; Visit Provider Internal Medicine
DX: G50.0 Trigeminal neuralgia (principal)
CPT/HCPCS: 70553; A9585

== ENCOUNTER 2023-10-15 18:59 | Emergency (ER) | payer OTHER, SELFPAY ==
--- NOTE | ~2023-10-15 | CT_ITS ---
EXAMINATION: CT head/brain wo IV con, CT cervical spine wo IV con, CT facial bones wo IV con INDICATION INFORMATION: Reason for Exam fall, head strike COMPARISON: CT head without contrast 05/16/2023, CT cervical spine 09/09/2020 TECHNIQUE: Separate noncontrast CT examinations of the head, face, and cervical spine were performed. Coronal and sagittal images were created for each examination at the technologist workstation. This CT examination was performed using dose optimization techniques as appropriate, variously including the following: *Automated exposure control *Adjustment of mA and/or kV according to patient size (this includes techniques or standardized protocols for targeted exams where dose is matched to indication/reason for exam; i.e. extremities or head) *Use of iterative reconstruction technique DLP: 1600 mGy-cm FINDINGS: Head: No acute osseous or soft tissue abnormality. Hyperostosis frontalis interna. Mastoids are clear. There is no evidence of acute intracranial hemorrhage or territorial infarction. No abnormal mass effect or midline shift is seen. Hua to white matter differentiation is well preserved. No extra-axial fluid collections are identified. No hydrocephalus. No significant volume loss. There is no abnormal attenuation within the brain parenchyma. Facial Bones: There is no evidence of an acute facial bone fracture. Mild maxillary and trace ethmoid sinus mucosal thickening. The maxilla and mandible are edentulous. The orbits are unremarkable in appearance. Cervical spine: There is no evidence of acute cervical spine fracture. Vertebral bodies remain normal in height. Loss of the usual cervical spine lordosis. Mild cervical spondylosis. No pre- or paravertebral soft tissue abnormality is identified. Visualized portions of the lung apices are unremarkable. The thyroid gland is unremarkable. CT/CT cervical spine wo IV con IMPRESSION: 1. No acute intracranial abnormality. 2. No cervical spine fracture or traumatic malalignment. 3. No facial fracture.
[2023-10-15 19:54] VITALS: BP 118/59; PULSE 73; RESP 18; TEMP 36.9; O2SAT 98; BMI 37.8
--- NOTE | 2023-10-15 19:54 | ED_ITS ---
HPI - General Adult General Chief complaint: Fall Stated complaint: fall, head strike Time Seen by Provider: 10/15/23 23:03 Source: patient Mode of arrival: ambulatory Limitations: no limitations History of Present Illness HPI narrative: Patient is on Eliquis had mechanical fall 2 days ago when she was walking on the sidewalk was feeling dizzy with vertiginous feeling hitting her right side of the forehead to the ground this happened at 18:30 patient was able to ambulate after that, complaining of headache since then no loss of consciousness dizziness getting better no nausea no vomiting patient took her oxycodone without much help Related Data Home Medications Medication Instructions Recorded Confirmed montelukast 10 mg tablet 10 mg PO BEDTIME 08/02/20 08/31/23 cyanocobalamin (vitamin B-12) 1,000 mcg PO DAILY 11/05/20 08/31/23 1,000 mcg tablet escitalopram oxalate 10 mg tablet 1 tab PO DAILY 08/21/22 08/31/23 zolpidem 10 mg tablet 1 tab PO BEDTIME PRN Insomnia 08/21/22 08/22/23 cholecalciferol (vitamin D3) 25 1 tab PO DAILY 11/28/22 08/31/23 mcg (1,000 unit) tablet valsartan 160 mg tablet 1 tab PO DAILY 11/28/22 08/22/23 betamethasone dipropionate 0.05 % 1 appl topical BID PRN psoriasis 02/12/23 08/31/23 lotion blood sugar diagnostic (FreeStyle #10 ea 02/12/23 08/22/23 Lite Strips) calcipotriene 0.005 % topical 1 appl topical BID PRN flares 02/12/23 08/31/23 ointment fluocinonide 0.05 % topical 1 appl topical BID PRN flares 02/12/23 08/31/23 ointment fluticasone propionate 50 50 mcg intranasal DAILY 02/12/23 08/31/23 mcg/actuation nasal spray,suspension hydroxyzine HCl 25 mg tablet 25 mg PO TID PRN itch 02/12/23 08/31/23 nebulizers 04/02/23 08/22/23 loratadine 10 mg tablet 10 mg PO DAILY 08/22/23 08/31/23 omeprazole 40 mg capsule,delayed 40 mg PO BID PRN Acid Reflux 08/22/23 08/22/23 release quetiapine 400 mg tablet 400 mg PO BEDTIME 08/22/23 08/22/23 Previous Rx's Medication Instructions Recorded dicyclomine 20 mg tablet 20 mg PO QID PRN abdominal pain 06/27/22 #20 tabs ondansetron 4 mg disintegrating 4 mg PO TID PRN nausea and 11/27/22 tablet vomiting 5 days #20 tabs zinc acetate 50 mg (zinc) capsule 100 mg (2 x 50 mg (zinc)) PO DAILY 12/02/22 (Galzin) 30 days #60 caps sucralfate 1 gram tablet 1 g PO TID PRN gastritis 14 days 02/17/23 #42 tabs naloxone 4 mg/actuation nasal spray 4 mg intranasal Q2M PRN opioid 02/24/23 overdose 1 day #2 ea gabapentin 300 mg capsule 600 mg (2 x 300 mg) PO BID #120 04/14/23 caps apixaban 2.5 mg tablet (Eliquis) 2.5 mg PO BID #180 tabs 04/17/23 immune glob,gamm(IgG) 10 %-pro-IgA 40 g IV Q4W #400 mL 05/28/23 0 to 50 mcg/mL intravenous solution (Privigen) acetaminophen 500 mg tablet 500 mg PO Q6H PRN pain #20 tabs 06/09/23 polyethylene glycol 3350 17 gram 17 g PO DAILY #30 ea 08/25/23 oral powder packet albuterol sulfate 2.5 mg/3 mL 2.5 mg (3 mL) inhalation Q4H PRN 09/02/23 (0.083 %) solution for nebulization shortness of breath or wheezing 30 days #360 mL albuterol sulfate 90 mcg/actuation 2 puff inhalation QID PRN 09/02/23 aerosol inhaler (Ventolin HFA) shortness of breath or wheezing 30 days #18 grams budesonide 160 mcg-glycopyr 9 2 inh inhalation BID 30 days #10.7 09/02/23 mcg-formot 4.8 mcg/actuation HFA grams inhaler (Breztri Aerosphere) doxycycline hyclate 100 mg capsule 100 mg PO BID 10 days #20 caps 09/02/23 prednisone 20 mg tablet See Rx Instructions PO DAILY 10 09/02/23 days #15 tabs benzonatate 100 mg capsule 100 mg PO TID PRN Cough 30 days 09/05/23 #60 caps lidocaine 5 % topical patch 1 patch topical BID #30 ea 09/21/23 oxycodone 5 mg tablet 5 mg PO TID PRN pain 30 days #90 09/28/23 tabs meclizine 25 mg tablet 25 mg PO TID PRN dizziness #20 tabs 10/15/23 Allergies Allergy/AdvReac Type Severity Reaction Status Date / Time No Known Allergies Allergy Verified 10/15/23 20:02 Review of Systems 2 Review of Systems: Yes all other systems are reviewed and are negative [facility] Past Medical History Medical History (Updated 10/15/23 @ 23:31 by Jerel Gilliam MD) Constipation Knee pain, left Left hip pain Upper respiratory infection Weight gain Acute bronchitis Abdominal pain Persistent cough COVID-19 History of peristent cough as a child Epigastric pain Bile salt-induced diarrhea Acute severe exacerbation of moderate persistent asthma History of COVID-19 Osteoporosis Spondylosis of cervical spine Asthma-COPD overlap syndrome Spondylosis of lumbar joint Nausea vomiting and diarrhea Disc degeneration, 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 Dizziness Headache Elevated lactic acid level Bronchitis Headache, migraine Asthma exacerbation Cough BABATUNDE (obstructive sleep apnea) Chronic pain syndrome Spondylosis of lumbar spine Low back pain Complex regional pain syndrome i of left lower limb Diabetic neuropathy Laryngotracheitis Essential hypertension Type 2 diabetes mellitus with unspecified complications Morbid obesity Anemia Back pain Pleuritic chest pain Fibromyalgia Hypothyroidism TIA (transient ischemic attack) Diet-controlled diabetes mellitus Depression Arthritis Sleep apnea Hypogammaglobulinemia Pulmonary embolism Surgical History (Updated 09/02/23 @ 00:03 by Titi Camilo) History of esophagogastroduodenoscopy (EGD) Hx of colonoscopy S/P total abdominal hysterectomy History of cholecystectomy History of bariatric surgery Family History Family History Mother Diabetes Stroke Family/Other Diabetes Father Diabetes Maternal Aunt Cancer Social History Social History Household Members: None Housing: Apartment Are you a primary intensive care nurse to a significant other at home: No Do you presently have visiting nurse or other home services: No ([employer]) Alcohol intake: never Patient Tobacco Use Status: Never used Tobacco e-Cigarette/Vaping Use: Never Used Second Hand Smoke Exposure: No Use of substances other than those prescribed or required for medical reasons: No Substance Use Type: Opiates Advance Directives: No Advance Directives Information Provided: Yes Advance Directives Date on File: 05/23/21 service: No Current occupational status: unemployed and disabled Physical Exam ED Vital Signs: Vital Signs - 24 hr 10/15/23 19:54 10/15/23 23:23 Temperature 98.4 F 98.4 F Pulse Rate 73 66 Respiratory Rate 18 18 Blood Pressure 118/59 L 138/73 Pulse Oximetry 98 100 Oxygen Delivery Method Room Air Room Air BMI result Body Mass Index 37.8 Appearance: Alert. Oriented X3. No acute distress. Eyes: PERRLA, No Nystagmus ENT: Pharynx normal. Oral Mucosa moist Neck: Normal inspection. Neck supple. CVS: Normal heart rate and rhythm. Pulses normal. Respiratory: No respiratory distress. Equal air entry bilateral, no wheezing/rales/rhonchi Abdomen: Soft and nontender. Bowel sounds are present, no mass palpable, no CVA tenderness Skin: Skin warm and dry. Normal skin color. Normal skin turgor. Extremities: No lower extremity edema. No calf tenderness Neuro: Oriented X 3. No motor deficit. No sensory deficit.No cerebellar signs , cranial nerves II-XII intact Course Course Course Narrative: RME performed by Celeste Irwin PA-C. Patient is a 53 year old assigned female at presenting to the emergency department with a headache after a fall. Patient was dizzy before the fall. Imaging ordered. Patient placed back in the waiting room pending room availability and results. Medications Administered Discontinued Medications Generic Name Dose Route Start Last Admin Trade Name Renato PRN Reason Stop Dose Admin Meclizine HCl 25 mg 10/15/23 23:30 10/15/23 23:47 Meclizine Hcl 25 Mg Tablet PO 10/15/23 23:31 25 mg ONCE ONE Administration Morphine Sulfate 15 mg 10/15/23 23:23 10/15/23 23:30 Morphine Sulfate Immed Release 15 Mg Tablet PO 10/15/23 23:24 15 mg ONCE ONE Administration Medical Decision Making Medical Decision Making [facility] Narrative: Patient minor head injury no signs of injury noticed happened more than 24 hours agoCT scan negative discharge patient home patient ambulated without any distress Differential Diagnosis Differential Diagnoses: The differential diagnosis associated with the presentation includes SDH/SAH/ICH Lab Data MDM Lab Attestation statement: I reviewed the patient's lab results. 10/15/23 20:41 10/15/23 20:41 Labs: Lab Results 10/15/23 Range/Units 20:41 WBC 9.2 (4.8-10.8) X10*3/uL RBC 3.89 L (4.20-5.50) X10*6/uL Hgb 8.6 L (12.0-16.0) g/dl Hct 29.4 L (37.0-47.0) % MCV 75.6 L (80.0-98.0) fL MCH 22.1 L (27.0-33.0) pg MCHC 29.3 L (31.0-35.0) g/dl RDW 20.5 H (11.0-16.0) % Plt Count 251 (160-400) X10*3/uL MPV 9.1 L (9.4-12.3) fL Immature Gran % (Auto) 0.5 H (0.0-0.4) % Neut % (Auto) 58.3 (45-73) % Lymph % (Auto) 32.2 (20-40) % [place] % (Auto) 7.2 (2-11) % Eos % (Auto) 1.5 (0-4) % Baso % (Auto) 0.3 (0-2) % Lymph # (Auto) 3.0 (1.2-4.9) X10*3/uL [place] # (Auto) 0.7 (0.1-1.2) X10*3/uL Eos # (Auto) 0.1 (0.0-0.4) X10*3/uL Baso # (Auto) 0.0 (0.0-0.2) X10*3/uL Abs Immat Gran (auto) 0.05 H (0.00-0.03) X10*3/uL Absolute Neuts (auto) 5.4 (2.0-8.3) x10*3/uL Absolute Nucleated RBC 0.000 (0.0-0.012) X10*3/uL Nucleated RBC % (auto) 0.0 (0.0-0.2) /100WBC PT 11.2 (11.1-13.3) SEC INR 0.9 (0.9-1.1) Sodium 143 (135-145) mmol/L Potassium 4.4 (3.3-5.1) mmol/L Chloride 107 (96-108) mmol/L Carbon Dioxide 26 (22-29) mmol/L Anion Gap 14 (12-20) BUN 21 H (9-16) mg/dL Creatinine 1.55 H (0.5-1.4) mg/dL Estim Creat Clear Calc 39.2 Estimated GFR 35 Random Glucose 79 (60-115) mg/dL Calcium 9.0 D (8.4-10.2) mg/dL Magnesium 2.2 (1.6-2.6) mg/dL Total Bilirubin 0.2 (0.0-1.0) mg/dL AST 19 (5-31) U/L ALT 22 (0-31) U/L Alkaline Phosphatase 68 (39-117) U/L Total Protein 6.2 L (6.5-8.0) g/dL Albumin 3.2 L (3.5-5.0) g/dL Influenza Type A (PCR) NEGATIVE (Negative) Influenza Type B (PCR) NEGATIVE (Negative) RSV RNA Qual (PCR) NEGATIVE (Negative) SARS-CoV-2 RNA (RT-PCR) NEGATIVE (Negative) Independent Interpretation I performed an independent interpretation of an: CT Scan Radiology Impression Discussion of test interpretation with radiology: I have reviewed the radiologist's reading. Discharge Plan Discharge Clinical Impression: Minor closed head injury, Benign paroxysmal positional vertigo Patient Disposition: Home, Self-Care Instructions: Head Injury (ED), Benign Paroxysmal Positional Vertigo (ED) Additional Instructions: Continue to take your oxycodone for pain Care and cautions as advised Meclizine 1 tablet every 8 hours as needed for dizziness Contin?e tomando oxicodona para el dolor. Cuidados y precauciones seg?n lo recomendado. Meclizina 1 tableta cada 8 horas seg?n sea necesario para los mareos Prescriptions: New meclizine 25 mg tablet 25 mg PO TID PRN (Reason: dizziness) Qty: 20 0RF No Action ondansetron 4 mg tablet,disintegrating 4 mg PO TID PRN (Reason: nausea and vomiting) 5 Days Qty: 20 0RF Galzin 50 mg (zinc) capsule 100 mg PO DAILY 30 Days Qty: 60 1RF sucralfate 1 gram tablet 1 g PO TID PRN (Reason: gastritis ) 14 Days Qty: 42 0RF gabapentin 300 mg capsule 600 mg PO BID Qty: 120 11RF Privigen 10 % solution 40 g IV Q4W Qty: 400 11RF Rx Instructions: PER PATIENT, NEXT DOSE ~08/25/23 albuterol sulfate 2.5 mg /3 mL (0.083 %) solution for nebulization 2.5 mg inhalation Q4H PRN (Reason: shortness of breath or wheezing) 30 Days Qty: 360 11RF albuterol sulfate [Ventolin HFA] 90 mcg/actuation HFA aerosol inhaler 2 puff inhalation QID PRN (Reason: shortness of breath or wheezing) 30 Days Qty: 18 11RF doxycycline hyclate 100 mg capsule 100 mg PO BID 10 Days Qty: 20 0RF prednisone 20 mg tablet See Rx Instructions PO DAILY 10 Days Qty: 15 0RF Rx Instructions: PO daily; Take 2 tabs daily x 5 days, then 1 tablet daily x 5 days Breztri Aerosphere 160-9-4.8 mcg/actuation HFA aerosol inhaler 2 inh inhalation BID 30 Days Qty: 10.7 11RF benzonatate 100 mg capsule 100 mg PO TID PRN (Reason: Cough) 30 Days Qty: 60 3RF lidocaine 5 % adhesive patch,medicated 1 patch topical BID Qty: 30 6RF Rx Instructions: leave on most painful area for up to 12 hrs montelukast 10 mg tablet 10 mg PO BEDTIME Eliquis 2.5 mg Tablet 2.5 mg PO BID Qty: 180 0RF dicyclomine 20 mg tablet 20 mg PO QID PRN (Reason: abdominal pain) Qty: 20 0RF escitalopram oxalate 10 mg tablet 1 tab PO DAILY zolpidem 10 mg tablet 1 tab PO BEDTIME PRN (Reason: Insomnia) valsartan 160 mg tablet 1 tab PO DAILY cholecalciferol (vitamin D3) 25 mcg (1,000 unit) tablet 1 tab PO DAILY acetaminophen 500 mg tablet 500 mg PO Q6H PRN (Reason: pain) Qty: 20 0RF omeprazole 40 mg capsule,delayed release(DR/EC) 40 mg PO BID PRN (Reason: Acid Reflux) loratadine 10 mg tablet 10 mg PO DAILY quetiapine 400 mg tablet 400 mg PO BEDTIME polyethylene glycol 3350 17 gram Powder In Packet 17 g PO DAILY Qty: 30 0RF cyanocobalamin (vitamin B-12) 1,000 mcg tablet 1,000 mcg PO DAILY (DME) FreeStyle Lite Strips Strip See Rx Instructions .ROUTE BID Qty: 10 Rx Instructions: As directed betamethasone dipropionate 0.05 % lotion 1 appl topical BID PRN (Reason: psoriasis) Rx Instructions: apply to scalp calcipotriene 0.005 % ointment 1 appl topical BID PRN (Reason: flares) hydroxyzine HCl 25 mg tablet 25 mg PO TID PRN (Reason: itch) fluocinonide 0.05 % ointment 1 appl topical BID PRN (Reason: flares) fluticasone propionate 50 mcg/actuation spray,suspension 50 mcg intranasal DAILY Rx Instructions: 1 spray into each nostril (DME) nebulizers Misc See Rx Instructions .ROUTE Rx Instructions: As directed naloxone 4 mg/actuation spray,non-aerosol 4 mg intranasal Q2M PRN (Reason: opioid overdose) 1 Days Qty: 2 2RF Rx Instructions: spray 1 dose into ONE nostril; alternate nostrils w each dose until help arrives oxycodone 5 mg tablet 5 mg PO TID PRN (Reason: pain) 30 Days Qty: 90 0RF Rx Instructions: Partial Fill upon patient request. Interventions: ED Discharge Assessment Last Done: 10/15/23 23:50 Discharge Date/Time: 10/15/23 23:50 Print Language: Portuguese
[2023-10-15 20:47] LABS: MANUAL DIFF FLAG NO
[2023-10-15 20:51] LABS: Basophils Percent Auto 0.3 % (0-2); Eosinophils Absolute Auto 0.1 X10*3/uL (0.0-0.4); Eosinophils Percent Auto 1.5 % (0-4); Hematocrit 29.4 % (37.0-47.0); Hemoglobin 8.6 g/dl (12.0-16.0); Imm Gran Abs Auto 0.05 X10*3/uL (0.00-0.03); Imm Gran Pct Auto 0.5 % (0.0-0.4); Lymphocytes Percent Auto 32.2 % (20-40); Mean Corpuscular HGB Conc 29.3 g/dl (31.0-35.0); Mean Corpuscular Hemoglobin 22.1 pg (27.0-33.0); Mean Corpuscular Volume 75.6 fL (80.0-98.0); Mean Platelet Volume 9.1 fL (9.4-12.3); Monocytes Absolute Auto 0.7 X10*3/uL (0.1-1.2); Monocytes Percent Auto 7.2 % (2-11); Neutrophils Absolute Auto 5.4 x10*3/uL (2.0-8.3); Neutrophils Percent Auto 58.3 % (45-73); Platelet Count 251 X10*3/uL (160-400); Red Blood Count 3.89 X10*6/uL (4.20-5.50); Red Cell Distribution Width 20.5 % (11.0-16.0); White Blood Count 9.2 X10*3/uL (4.8-10.8)
[2023-10-15 20:56] LABS: INTERNATIONAL NORM RATIO 0.9 (0.9-1.1); Prothrombin Time 11.2 SEC (11.1-13.3)
[2023-10-15 21:03] LABS: Alanine Aminotransferase 22 U/L (0-31); Albumin Level 3.2 g/dL (3.5-5.0); Alkaline Phosphatase 68 U/L (39-117); Anion Gap 14 (12-20); Aspartate Amino Transferase 19 U/L (5-31); Bilirubin Total 0.2 mg/dL (0.0-1.0); Blood Urea Nitrogen 21 mg/dL (9-16); Carbon Dioxide 26 mmol/L (22-29); Chloride 107 mmol/L (96-108); Creatinine Clr Calc Pharmacy 39.2; Estimated Glomerular Filt Rate 35; Glucose Random 79 mg/dL (60-115); Magnesium 2.2 mg/dL (1.6-2.6); Potassium 4.4 mmol/L (3.3-5.1); Sodium 143 mmol/L (135-145); Total Protein 6.2 g/dL (6.5-8.0)
[2023-10-15 21:28] LABS: Influenza A PCR NEGATIVE (Negative); Influenza B PCR NEGATIVE (Negative); Resp Syncy Virus RNA Qual PCR NEGATIVE (Negative); SARS COV2 PCR INHOUSE NEGATIVE (Negative)
[2023-10-15 23:23] VITALS: BP 138/73; PULSE 66; RESP 18; TEMP 36.9; O2SAT 100
[2023-10-15] MEDS: Morphine Sulfate Immed Release 15 MG TABLET PO (23:30)
[2023-10-15] MEDS: Meclizine HCl 25 MG TABLET PO (23:47)
== END 2023-10-15 23:50 | disposition home or self-care (01) ==
PROVIDERS: Physician Assistant Medical; Emergency Provider Internal Medicine; PCP Internal Medicine
DX: S09.90XA Unspecified injury of head, initial encounter (principal); R51.9 Headache, unspecified; M54.2 Cervicalgia; W01.10XA Fall on same level from slipping, tripping and stumbling with subsequent striking against unspecified object, initial encounter; Y93.9 Activity, unspecified; Y92.9 Unspecified place or not applicable; Y99.9 Unspecified external cause status; Z20.822 Contact with and (suspected) exposure to COVID-19; Z20.828 Contact with and (suspected) exposure to other viral communicable diseases; Z79.899 Other long term (current) drug therapy
CPT/HCPCS: 0241U; 70450; 70486; 72125; 80053; 83735; 85025; 85610; 99284

== ENCOUNTER 2023-10-19 15:21 | Outpatient (REF) | payer OTHER, SELFPAY | END 2023-10-19 15:22 | disposition home or self-care (01) | LOC: HO.XRAY 15:21 | PROVIDERS: PCP Internal Medicine; Visit Provider Internal Medicine | DX: R07.81 Pleurodynia (principal); Z91.81 History of falling | CPT/HCPCS: 71101 ==

== ENCOUNTER 2023-11-09 09:29 | Outpatient (AMB) | payer OTHER, SELFPAY ==
--- NOTE | 2023-11-09 09:35 | A.OFFVIS_ITS ---
Intake Vital Signs 11/09/23 09:37 Height 4 ft 11 in Weight 188 lb BMI 38.0 Blood Pressure Location Lt brachial Position Sitting Respiration 12 Pulse Source Pulse Oximeter Oxygen Delivery Method Room Air Intake Visit Reasons: Medication Count/random UDS Intake Note: Pt states she last took oxy 11/09/23 @ 9am Packing Room Worker Required: Yes Packing Room Worker Name: prefers daughter to translate Allergies No Known Allergies Allergy (Verified 11/09/23 09:39) Medication List - Last Reconciled 11/09/23 by Celeste Mallory LPN acetaminophen 500 mg PO Q6H PRN albuterol sulfate 2.5 mg (3 mL) inhalation Q4H PRN 30 days albuterol sulfate 90 mcg/actuation (Ventolin HFA) 2 puffs inhalation QID PRN 30 days apixaban (Eliquis) 2.5 mg PO BID benzonatate 100 mg PO TID PRN 30 days betamethasone dipropionate 0.05% 1 appl topical BID PRN blood sugar diagnostic (FreeStyle Lite Strips) As directed [id number] 160-9-4.8 mcg/actuation (Breztri Aerosphere) 2 inhalations inhalation BID 30 days calcipotriene 0.005% 1 appl topical BID PRN cholecalciferol (vitamin D3) 1 tab PO DAILY cyanocobalamin (vitamin B-12) 1,000 mcg PO DAILY dicyclomine 20 mg PO QID PRN escitalopram oxalate 1 tab PO DAILY ferrous sulfate 325 mg PO DAILY fluocinonide 0.05% 1 appl topical BID PRN fluticasone propionate 50 mcg/actuation 50 mcg intranasal DAILY gabapentin 600 mg (2 x 300 mg) PO BID hydroxyzine HCl 25 mg PO TID PRN immun glob G(IgG)-pro-IgA 0-50 10 % (Privigen) 40 grams IV Q4W lidocaine 5% 1 patch topical BID loratadine 10 mg PO DAILY meclizine 25 mg PO TID PRN montelukast 10 mg PO BEDTIME naloxone 4 mg/actuation 4 mg intranasal Q2M PRN 1 day nebulizers As directed omeprazole 40 mg PO BID PRN ondansetron 4 mg PO TID PRN 5 days oxycodone 5 mg PO TID PRN 30 days polyethylene glycol 3350 17 grams PO DAILY prednisone PO daily; Take 2 tabs daily x 5 days, then 1 tablet daily x 5 days 10 days quetiapine 400 mg PO BEDTIME sucralfate 1 g PO TID PRN 14 days valsartan 1 tab PO DAILY zinc acetate (Galzin) 100 mg (2 x 50 mg (zinc)) PO DAILY 30 days zolpidem 1 tab PO BEDTIME PRN HPI HPI Comments History of Present Illness Details Maye is a very pleasant 53 year old female who presents to the office today, accompanied by her granddaughter, for follow up chronic pain and chronic opioid therapy management. Patient is prescribed oxycodone 5mg tabs, take one tablet three times daily. Patient arrived today with the expectation of having 33 pills, she presented 35 pills which were counted in the presence of two staff members and returned to the patient in the original prescription bottle. This demonstrates responsible attitude toward patient's opioid medications. Pain is reported today as 6/10 and last dose of pain medication was taken at 09:00 this morning. Chronic pain is well managed on current opioid regimen with improvement in mobility and overall functioning. She denies side effects including nausea, constipation, somnolence, weakness, chest pain or syncope. Patient does report that she fell 2 weeks ago, injured her right ankle. She was seen in the ER and told nothing broken. Has been using gamaliel wrap and lidocaine patches to the area with good relief. Previously: She was suspended for 6 months because UDS demonstrated tramadol in her urine. She was admitted slightly earlier on the request of her PCP - she developed renal insufficiency and she was taking large doses of NSAIDs to help her pain. Her risk of Opioid was low.? When she come back from suspension her opioid risk will become moderate. 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 Dizziness Headache Elevated lactic acid level Bronchitis Headache, migraine Asthma exacerbation Cough BABATUNDE (obstructive sleep apnea) Chronic pain syndrome Spondylosis of lumbar spine Low back pain Complex regional pain syndrome i of left lower limb Diabetic neuropathy Laryngotracheitis Essential hypertension Type 2 diabetes mellitus with unspecified complications Morbid obesity Anemia Back pain Pleuritic chest pain Fibromyalgia Hypothyroidism TIA (transient ischemic attack) Diet-controlled diabetes mellitus Depression Arthritis Sleep apnea Hypogammaglobulinemia Pulmonary embolism Surgical History (Updated 09/02/23 @ 00:03 by Titi Camilo) History of esophagogastroduodenoscopy (EGD) Hx of colonoscopy S/P total abdominal hysterectomy History of cholecystectomy History of bariatric surgery Family History Mother Diabetes Stroke Family/Other Diabetes Father Diabetes Maternal Aunt Cancer Social History Household Members: None Housing: Apartment Are you a primary animal daycare provider to a significant other at home: No Do you presently have visiting nurse or other home services: No ([employer]) Alcohol intake: never Patient Tobacco Use Status: Never used Tobacco e-Cigarette/Vaping Use: Never Used Second Hand Smoke Exposure: No Substance Use Type: Opiates Advance Directives Date on File: 05/23/21 service: No Current occupational status: unemployed and disabled Review of Systems Const All systems reviewed & are unremarkable except as noted in HPI and below Physical Exam Vital Signs: Last Vital Signs Resp 12 11/09/23 09:37 Oxygen Delivery Method Room Air 11/09/23 09:37 BMI result Body Mass Index 38.0 General: awake, alert, oriented. Answers questions appropriately. Fully engaged in examination. Skin: warm, dry, intact. HEENT: Normocephalic. Hearing intact. Cardiac: External chest normal in appearance. Respiratory: No cough, audible wheezing or stridor. Abdomen: without gross distension. MS: No obvious swelling or deformities. Able to transition from sit to stand unassisted. Bruising noted to right ankle. Neurological: Oriented to person, place, time and situation. Thought process intact. Psychiatric: Appropriate mood and affect. Good judgment and insight. Results Reviewed Results Reviewed: 11/12/2021EXAMINATION: THORACIC AND LUMBAR SPINE X-RAY FINDINGS: Thoracic spine: Exam is limited due to light film technique and patient body habitus. There is mild curvature of the midthoracic spine to the right. Bone alignment is otherwise normal. No fracture or dislocation is seen. There is mild multilevel degenerative disc disease of the midthoracic spine. Paraspinal soft tissues are unremarkable. Lumbar spine: Bone alignment is normal. No fracture or dislocation is seen. Disc spaces are normal. There is lower lumbar spine facet arthritis.? XR/XR lumbar spine 2-3V IMPRESSION: No fracture or dislocation seen. Degenerative changes. Evaluation of the thoracic spine is limited due to patient body habitus.? 03/03/2021 MR LUMBAR SPINE WITHOUT CONTRAST FINDINGS: Coronal Alignment:?Normal. Sagittal Alignment:?2 mm of grade 1 spondylolisthesis at L5-S1 has developed since the previous exam. Trace retrolisthesis at L3-L4 is stable. Lumbosacral Junction: ?Normal. Vertebral Bodies: Normal height. Bone Marrow:? Large benign vertebral hemangioma in the L4 vertebral body on the left is stable. There is an 8 mm probable atypical benign hemangioma in the L3 vertebral body. No suspicious marrow replacing process or bone marrow edema. Conus Medullaris:?Terminates at L1.?Morphology and signal is normal. Intradural Nerve Roots: Within normal limits. 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 Maximum diameter is 4 mm, unchanged. SPINAL LEVELS: L5-S1: Mild loss of disc space height is noted with disc desiccation with minimal progression of disc space height loss from previous study, with development of slight anterolisthesis. There is marked facet arthropathy on the right progressed from previous study and moderate facet arthropathy on the left also slightly progressed. Right-sided facet joint effusion noted on current exam with a small synovial cyst along its posterior margin with subchondral marrow edema on both sides of the facet joint consistent with facet inflammatory changes. There is anterior and right paravertebral spondylosis and there is mild disc bulging with a superimposed right-sided foraminal disc herniation progressed from previous exam. There is mild right-sided neural foraminal stenosis without neural impingement and there is no significant canal stenosis. L4-L5: Disc space height and signal are well maintained. No significant disc bulge or herniation and no significant spondylosis. Mild facet arthrosis bilaterally noted without significant canal or neural foraminal stenosis. L3-L4: Mild loss of disc space height is noted with mild disc desiccation and slight retrolisthesis, stable in appearance. No significant disc bulge or herniation. No significant canal or neural foraminal stenosis. Minor spondylosis is unchanged. L2-L3: Disc space height and signal are well maintained without disc bulge or herniation and no significant facet arthrosis, canal or neural foraminal stenosis, stable in appearance. L1-L2: Disc space height and signal are well maintained without disc bulge or herniation and no significant spondylosis. No significant facet arthrosis, canal or neural foraminal stenosis. Paraspinal/Retroperitoneal: The paravertebral soft tissues appear unremarkable. There is a 2.9 cm probable parapelvic cyst in the mid left kidney increased in size from previous exam. A 1 cm cortical cyst lateral cortex upper pole of right kidney, unchanged. Partially imaged exophytic cortical cyst lateral cortex mid left kidney, increased in size. MR/MR lumbar spine wo con IMPRESSION: 1. Progression of facet arthropathy at L5-S1 right more the left with facet inflammatory changes on the right on the current study, with development of grade 1 spondylolisthesis with progression of disc degenerative change. Development of right foraminal disc herniation and minimal disc bulging with mild right-sided foraminal stenosis since prior exam. ? 2. Mild bilateral facet arthropathy at L4-L5, stable in appearance. ? 3. Thickened, fatty filum, consistent with a benign fibrolipoma of the filum terminale, unchanged. ? 4. Multiple bilateral renal cysts, some of which have increased in size on the left, probably unchanged from previous CT abdomen of 03/16/2019. Assessment & Plan Assessment & Plan (1) Knee pain, left: Code(s): M25.562 - Pain in left knee Qualifiers: Chronicity: chronic Qualified Code(s): M25.562 - Pain in left knee; G89.29 - Other chronic pain (2) Low back pain: Code(s): M54.5 - Low back pain Qualifiers: Chronicity: chronic Back pain laterality: bilateral Sciatica presence: without sciatica Qualified Code(s): M54.50 - Low back pain, unspecified; G89.29 - Other chronic pain (3) Disc degeneration, lumbosacral: Code(s): M51.37 - Other intervertebral disc degeneration, lumbosacral region (4) Spondylosis of lumbar joint: Code(s): M47.816 - Spondylosis without myelopathy or radiculopathy, lumbar region (5) Spondylosis of cervical spine: Code(s): M47.812 - Spondylosis without myelopathy or radiculopathy, cervical region (6) Osteoporosis: Code(s): M81.0 - Age-related osteoporosis without current pathological fracture (7) Sacroiliac joint dysfunction of left side: Code(s): M53.3 - Sacrococcygeal disorders, not elsewhere classified (8) Left hip pain: Code(s): M25.552 - Pain in left hip Plan Maye is a very pleasant 53 year old female who presented to the office today for follow up chronic pain and chronic opioid medication management. Masspat was reviewed and without concerns. No obvious signs of diversion, abuse or misuse of the opioid medications. Will send in prescription for oxycodone 5mg TID with an advanced date of 11/20/23 Continue with lidocaine patches, ice, rest and gamaliel wrap to the right ankle. All questions and concerns have been answered and patient agrees with the plan. Follow up in 1 month, sooner if needed. Medications: Refilled oxycodone Partial Fill upon patient request. 5 mg PO TID 30 days PRN 90 tabs 0RF pain Coding Level of Care Code Est Pt Level 4 (82651) Diagnoses Chronic pain of left knee M25.562; G89.29 Chronicity: chronic Chronic bilateral low back pain without sciatica M54.50; G89.29 Chronicity: chronic Back pain laterality: bilateral Sciatica presence: without sciatica Disc degeneration, lumbosacral M51.37 Spondylosis of lumbar joint M47.816 Spondylosis of cervical spine M47.812 Osteoporosis M81.0 Sacroiliac joint dysfunction of left side M53.3 Left hip pain M25.552
[2023-11-09 09:37] VITALS: RESP 12; BMI 38.0
== END 2023-11-09 10:26 | disposition home or self-care (01) ==
PROVIDERS: PCP Internal Medicine; Visit Provider Registered Nurse Emergency
DX: M25.562 Pain in left knee (principal); G89.29 Other chronic pain; M54.50 Low back pain, unspecified; M51.37 Other intervertebral disc degeneration, lumbosacral region; M47.816 Spondylosis without myelopathy or radiculopathy, lumbar region; M47.812 Spondylosis without myelopathy or radiculopathy, cervical region; M81.0 Age-related osteoporosis without current pathological fracture; M53.3 Sacrococcygeal disorders, not elsewhere classified; M25.552 Pain in left hip
CPT/HCPCS: 99214

== ENCOUNTER → 2023-11-09 09:29 | Outpatient (BNVA) | payer OTHER, SELFPAY | PROVIDERS: PCP Internal Medicine; Visit Provider Registered Nurse Emergency | DX: Z51.81 Encounter for therapeutic drug level monitoring (principal); F11.20 Opioid dependence, uncomplicated; M25.562 Pain in left knee; M54.50 Low back pain, unspecified; M51.37 Other intervertebral disc degeneration, lumbosacral region; M47.816 Spondylosis without myelopathy or radiculopathy, lumbar region; M47.812 Spondylosis without myelopathy or radiculopathy, cervical region; M81.0 Age-related osteoporosis without current pathological fracture; M25.552 Pain in left hip; M53.3 Sacrococcygeal disorders, not elsewhere classified; G89.29 Other chronic pain | CPT/HCPCS: 99212 ==

== ENCOUNTER 2023-11-22 09:25 | Outpatient (AMB) | payer OTHER, SELFPAY ==
[2023-11-22 10:02] VITALS: PULSE 76; O2SAT 99; BMI 36.8
--- NOTE | 2023-11-22 10:02 | MHC.OFFVIS ---
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 Recently the patient was complaining of persistent back pain and pleuritic chest pain. She started developing also worsening shortness of breath. She was evaluated at the emergency department where she had a CTA which will during for a pulmonary emboli. She was actually sent home from the ER and subsequently went back to the hospital the next day because of persistent symptoms. She has been kept on Eliquis. She still complaining of pleuritic discomfort. Explained to her that she will continue having discomfort while the clots will dissolve in sometimes it can take a few weeks. In the meantime she did return to the ER yesterday which she had her chest x-ray and she had blood work done. She was given pain medications but are not enough. Patient also continues to cough. Her cough is uncontrollable. Keeps her up at nighttime. 11/03/2021 the patient is here for a pulmonary follow-up visit. She continues to complaint of her chronic cough. The cough is causing her to have a poor quality of life. She is developing significant headache from the coughing. The coughing is moderate to severe. Usually is hacky cough and is nonproductive. She has been on multiple courses of prednisone without any significant improvement. She does continue on the IVIG infusions. Unfortunately due to the pandemic she has had significant weight gain. Patient understands that this is also worsening respiratory capacity. Her chronic cough is consistent with chronic bronchitis. And since the patient has required significant courses of prednisone she will be a great candidate for Daliresp. In addition to that will start her on prophylactic antibiotics in view of her immuno deficiency and chronic bronchitis. The patient can try increasing her gabapentin for pain control. She is very achy at this time. 06/11/2022 this is a telehealth visit. The patient has been having worsening fevers and cough in the last 24 hours. She tested positive for COVID-19. Positive sick contacts. She continues with respiratory therapy. Denies any significant chest tightness or wheezing. the patient has been on anticoagulation Eliquis for history of pulmonary emboli numerous years ago. Is been a medication that she has tolerated well she is taking with good adherence. At this point in order for her to take packs lower she is going to have to hold off on the Eliquis for 5 days. At this point I believe it will be safe enough to do so in order for her to minimize the risk of severe COVID. The patient is aware of signs and symptoms such as lower extremity edema and pain to call the office to restart the anticoagulation and to further evaluate. 09/08/2022 this is a telehealth visit. The patient tested positive again for COVID-19. Apparently 1 week ago she started developing worsening shortness of breath in addition to headaches in near syncope and she was evaluated in the ER which she tested positive for COVID. The patient was set up for monoclonal antibody infusion specially with her immunodeficiency. However, the patient was too tired did not have transportation so therefore she did not attend her infusion therapy. She has continued to have worsening cough shortness of breath. Moderate severity. She does not feel well. the patient was placed on prednisone with partial improvement of her symptoms. She was also given antibiotics now she has completed. Although her cough is still productive in nature with green phlegm. Will go ahead and give her 2nd course of antibiotics and also prolong her prednisone taper. Patient understands that if she has to worsen she needs to go back to the ER for further evaluation management. The meantime will send her medications to the pharmacy to see if the help her recover. 12/07/2022 the patient is here for a hospital follow-up visit. She was in her usual state health until several days ago when she started developing worsening cough shortness of breath and chest discomfort. She went to the ER. There she was diagnosed with bronchitis. She was given some prednisone and also an antibiotic. She is feeling a little better although still having a significant cough. The cough is indeed croupy in nature. Likely tracheitis from an underlying virus. They did test for RSV flu a and COVID in does were negative. Although it is likely to be enterovirus. the patient is completing the prednisone taper and also completing the antibiotic. She has a significant cough and is affecting her sleep. Will go ahead and send her Tessalon Perles that appear to be effective for her. Also may benefit from dex to more phone. Will go ahead and send that to the pharmacy as well. Although she was given antibiotics. The fact that she has a croupy cough need to consider pertussis. Therefore I will send her azithromycin 500 mg for 5 days which will be a proper treatment for being cough. The patient has been vaccinated in the past but with her immunodeficiency and critical decrease it by her IgG is a chance that she may not mount a good response to vaccines. 04/02/2023 the patient is here for a pulmonary follow-up visit. Recently she went to the ER with worsening respiratory symptoms. She was diagnosed with an asthma exacerbation. Chest x-ray was clear. She was placed on prednisone taper. Clinically she is feeling a little better now. She is having some issues with her in a layers. She is not getting all the mouth the pharmacy. I am going to try to simplify her regimen by placing her on breaztri inhaler. She should also have a rescue inhaler available. In the meantime she continues with pain management. Now she has been getting some pain medication from her chronic back pain which appears to be alleviating her symptoms. In addition to that she is receiving IVIG infusions for significant hypogammaglobulinemia that was the result of her blood dyscrasia.. She continues uses CPAP at nighttime. The CPAP therapy continues to be affecting beneficial. She does use it for more than 4 hours a night. I will have her bring it in to the next visit to we can download the data. 11/22/2023 the patient is here for a pulmonary follow-up visit. She is still having hard time with the cough. The cough is persistent in uncomfortable for her. She has a hard time sleeping because of the cough. Typically the cough is nonproductive in nature. She has had multiple inhalers including breast tree that has been partially helpful. In addition to that she does have hypogammaglobulinemia and has been on IVIG infusions. She has missed once or twice. Her last IgG levels were actually low. Will go ahead and request additional blood work at this time. In addition to that she is found to be anemic. The patient did have a CT scan of the chest which we personally reviewed demonstrating no acute airspace disease. This was back in the summer of 2022. At this point based on the fact that she is still having a persistent cough not responding to the maximum respiratory therapy it will be beneficial to perform an airway survey with bronchoscopy and address the question of underlying tracheomalacia. The patient also sleeps CPAP. The CPAP therapy continues to be affecting beneficial. We need to download her machine. 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 Dizziness Headache Elevated lactic acid level Bronchitis Headache, migraine Asthma exacerbation Cough BABATUNDE (obstructive sleep apnea) Chronic pain syndrome Spondylosis of lumbar spine Low back pain Complex regional pain syndrome i of left lower limb Diabetic neuropathy Laryngotracheitis Essential hypertension Type 2 diabetes mellitus with unspecified complications Morbid obesity Anemia Back pain Pleuritic chest pain Fibromyalgia Hypothyroidism TIA (transient ischemic attack) Diet-controlled diabetes mellitus Depression Arthritis Sleep apnea Hypogammaglobulinemia Pulmonary embolism Surgical History (Updated 09/02/23 @ 00:03 by Titi Camilo) History of esophagogastroduodenoscopy (EGD) Hx of colonoscopy S/P total abdominal hysterectomy History of cholecystectomy History of bariatric surgery Family History Mother Diabetes Stroke Family/Other Diabetes Father Diabetes Maternal Aunt Cancer Social History Household Members: None Housing: Apartment Are you a primary day care provider to a significant other at home: No Do you presently have 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) Alcohol intake: never Patient Tobacco Use Status: Never used Tobacco e-Cigarette/Vaping Use: Never Used Second Hand Smoke Exposure: No Substance Use Type: Opiates Advance Directives Date on File: 05/23/21 service: No Current occupational status: unemployed and disabled Review of Systems Const Reports difficulty sleeping ENT Denies change in voice, Denies lip swelling, Denies mouth pain, Reports nasal congestion, Reports nasal discharge and Denies tongue swelling Card Denies chest pain, Denies palpitations and Reports dyspnea on exertion Resp Denies change in phlegm color, Denies chest congestion, Reports cough, Reports dyspnea on exertion and Denies wheezing GI Denies abdominal pain Denies urinary frequency and Denies urinary incontinence Musc Reports back pain and Reports myalgias Neuro Denies Neuro-related abnormal movements Psych Denies no additional complaints Endo Denies palpitations Mathieu/Lymph Denies easy bleeding and Denies lymphadenopathy Aller/Immun Denies lip swelling, Denies tongue swelling and Denies wheezing Physical Exam Vital Signs: Last Vital Signs Pulse 76 11/22/23 10:02 Pulse Ox 99 11/22/23 10:02 Oxygen Delivery Method Room Air 11/22/23 10:02 BMI result Body Mass Index 36.8 Const General: cooperative Orientation/consciousness: patient oriented x3 HEENT Head: Yes normocephalic Eyes General: appearance normal, both eyes and all related structures Neck Neck: Yes supple Chest Chest palpation & inspection: normal inspection of the chest and tenderness Resp Effort & Inspection: normal respiratory effort and Actively coughing (croup) Cardio Rate: regular rate Rhythm: regular rhythm Heart sounds: S1 normal heart sound present and S2 normal heart sound present GI Auscultation: normal bowel sounds Neuro General: patient oriented x3 Extrem General: Yes no clubbing, cyanosis or edema Assessment & Plan Assessment & Plan (1) Chronic bronchitis: Code(s): J42 - Unspecified chronic bronchitis Qualifiers: Chronic bronchitis type: simple Qualified Code(s): J41.0 - Simple chronic bronchitis (2) Asthma: Code(s): J45.909 - Unspecified asthma, uncomplicated Qualifiers: Asthma severity: moderate Asthma persistence: persistent Asthma complication type: uncomplicated Qualified Code(s): J45.40 - Moderate persistent asthma, uncomplicated (3) Chronic cough: Code(s): R05 - Cough Plan Bloodwork Bronchoscopy to assess chronic cough Benzonates as needed for cough IVIG continue Breztri RENE as needed continue singulair F/U after the bronchoscopy Orders: Orders Basic Metabolic Panel Today J42 - Unspecified chronic bronchitis, J45.909 - Unspecified asthma, uncomplicated Erythrocyte Sedimentation Rate Today J42 - Unspecified chronic bronchitis, J45.909 - Unspecified asthma, uncomplicated Complete Blood Count Auto Diff Today J42 - Unspecified chronic bronchitis, J45.909 - Unspecified asthma, uncomplicated Immunoglobulin G Subclasses Today J42 - Unspecified chronic bronchitis, J45.909 - Unspecified asthma, uncomplicated Immunoglobulins,IgG IgA IgM Today J42 - Unspecified chronic bronchitis, J45.909 - Unspecified asthma, uncomplicated Medications: New benzonatate 200 mg PO TID 30 days PRN 90 caps 3RF cough Coding Level of Care Code Est Pt Level 4 (30142) Diagnoses Chronic bronchitis J41.0 Chronic bronchitis type: simple Moderate persistent asthma without complication J45.40 Asthma severity: moderate Asthma persistence: persistent Asthma complication type: uncomplicated Chronic cough R05 Time Spent (min) 17
== END 2023-11-22 10:31 | disposition home or self-care (01) ==
PROVIDERS: PCP Internal Medicine; Visit Provider Hospitalist
DX: J41.0 Simple chronic bronchitis (principal); J45.40 Moderate persistent asthma, uncomplicated; R05.9 Cough, unspecified
CPT/HCPCS: 99214

== ENCOUNTER → 2023-11-22 09:25 | Outpatient (BNVA) | payer OTHER, SELFPAY | PROVIDERS: PCP Internal Medicine; Visit Provider Hospitalist | DX: J41.0 Simple chronic bronchitis (principal); J45.40 Moderate persistent asthma, uncomplicated; R05.3 Chronic cough | CPT/HCPCS: 99212 ==

== ENCOUNTER 2023-11-24 15:31 | Emergency (ER) | payer OTHER, SELFPAY ==
--- NOTE | ~2023-11-24 | XR_ITS ---
EXAMINATION: XR CHEST CLINICAL INFORMATION: Chest pain COMPARISON: Previous chest x-ray October 2023 TECHNIQUE: Frontal view of the chest was obtained. FINDINGS: No significant abnormality is noted involving the heart, lungs, mediastinum, bony thorax or soft tissues. XR/XR chest 1V IMPRESSION: Unremarkable examination.
[2023-11-24 15:41] VITALS: BP 121/69; PULSE 101; RESP 16; TEMP 36.2; O2SAT 94; BMI 38.1
--- NOTE | 2023-11-24 15:41 | ED_ITS ---
HPI - Dizziness General Chief Complaint: Dizziness Stated Complaint: nausea dizzy can not stand long, feels like fallin Related Data Home Medications Medication Instructions Recorded Confirmed montelukast 10 mg tablet 10 mg PO BEDTIME 08/02/20 11/30/23 cyanocobalamin (vitamin B-12) 1,000 mcg PO DAILY 11/05/20 11/30/23 1,000 mcg tablet escitalopram oxalate 10 mg tablet 1 tab PO DAILY 08/21/22 11/30/23 cholecalciferol (vitamin D3) 25 1 tab PO DAILY 11/28/22 11/30/23 mcg (1,000 unit) tablet valsartan 160 mg tablet 1 tab PO DAILY 11/28/22 11/30/23 betamethasone dipropionate 0.05 % 1 appl topical BID PRN psoriasis 02/12/23 11/09/23 lotion blood sugar diagnostic (FreeStyle #10 ea 02/12/23 11/09/23 Lite Strips) calcipotriene 0.005 % topical 1 appl topical BID PRN flares 02/12/23 11/09/23 ointment fluocinonide 0.05 % topical 1 appl topical BID PRN flares 02/12/23 11/09/23 ointment fluticasone propionate 50 50 mcg intranasal DAILY 02/12/23 11/30/23 mcg/actuation nasal spray,suspension hydroxyzine HCl 25 mg tablet 25 mg PO TID PRN itch 02/12/23 11/30/23 nebulizers 04/02/23 11/09/23 loratadine 10 mg tablet 10 mg PO DAILY 08/22/23 11/30/23 omeprazole 40 mg capsule,delayed 40 mg PO BID PRN Acid Reflux 08/22/23 11/30/23 release quetiapine 400 mg tablet 400 mg PO BEDTIME 08/22/23 11/30/23 ferrous sulfate 325 mg (65 mg 325 mg PO DAILY 11/08/23 11/30/23 iron) tablet lorazepam 0.5 mg tablet 0.25 mg PO .every other day PRN 11/10/23 11/30/23 Anxiety zolpidem 10 mg tablet 10 mg PO BEDTIME Insomnia 11/22/23 11/30/23 prednisone 10 mg tablet 10 mg PO 11/30/23 Previous Rx's Medication Instructions Recorded dicyclomine 20 mg tablet 20 mg PO QID PRN abdominal pain 06/27/22 #20 tabs ondansetron 4 mg disintegrating 4 mg PO TID PRN nausea and 11/27/22 tablet vomiting 5 days #20 tabs zinc acetate 50 mg (zinc) capsule 100 mg (2 x 50 mg (zinc)) PO DAILY 12/02/22 (Galzin) 30 days #60 caps naloxone 4 mg/actuation nasal spray 4 mg intranasal Q2M PRN opioid 02/24/23 overdose 1 day #2 ea gabapentin 300 mg capsule 600 mg (2 x 300 mg) PO BID #120 04/14/23 caps immune glob,gamm(IgG) 10 %-pro-IgA 40 g IV Q4W #400 mL 05/28/23 0 to 50 mcg/mL intravenous solution (Privigen) acetaminophen 500 mg tablet 500 mg PO Q6H PRN pain #20 tabs 06/09/23 polyethylene glycol 3350 17 gram 17 g PO DAILY #30 ea 08/25/23 oral powder packet albuterol sulfate 2.5 mg/3 mL 2.5 mg (3 mL) inhalation Q4H PRN 09/02/23 (0.083 %) solution for nebulization shortness of breath or wheezing 30 days #360 mL albuterol sulfate 90 mcg/actuation 2 puff inhalation QID PRN 09/02/23 aerosol inhaler (Ventolin HFA) shortness of breath or wheezing 30 days #18 grams budesonide 160 mcg-glycopyr 9 2 inh inhalation BID 30 days #10.7 09/02/23 mcg-formot 4.8 mcg/actuation HFA grams inhaler (Breztri Aerosphere) prednisone 20 mg tablet See Rx Instructions PO DAILY 10 09/02/23 days #15 tabs benzonatate 100 mg capsule 100 mg PO TID PRN Cough 30 days 09/05/23 #60 caps lidocaine 5 % topical patch 1 patch topical BID #30 ea 09/21/23 meclizine 25 mg tablet 25 mg PO TID PRN dizziness #20 tabs 10/15/23 apixaban 2.5 mg tablet (Eliquis) 2.5 mg PO BID #180 tabs 11/09/23 oxycodone 5 mg tablet 5 mg PO TID PRN pain 30 days #90 11/09/23 tabs benzonatate 200 mg capsule 200 mg PO TID PRN cough 30 days 11/22/23 #90 caps Allergies Allergy/AdvReac Type Severity Reaction Status Date / Time No Known Allergies Allergy Verified 11/24/23 15:40 [facility]LY [facility] Past Medical History Medical History (Updated 12/02/23 @ 18:34 by MEGA Wild) Constipation Knee pain, left Left hip pain Upper respiratory infection Weight gain Acute bronchitis Abdominal pain Persistent cough COVID-19 History of peristent cough as a child Epigastric pain Bile salt-induced diarrhea Acute severe exacerbation of moderate persistent asthma History of COVID-19 Osteoporosis Spondylosis of cervical spine Asthma-COPD overlap syndrome Spondylosis of lumbar joint Nausea vomiting and diarrhea Disc degeneration, 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 Dizziness Headache Elevated lactic acid level Bronchitis Headache, migraine Asthma exacerbation Cough BABATUNDE (obstructive sleep apnea) Chronic pain syndrome Spondylosis of lumbar spine Low back pain Complex regional pain syndrome i of left lower limb Diabetic neuropathy Laryngotracheitis Essential hypertension Type 2 diabetes mellitus with unspecified complications Morbid obesity Anemia Back pain Pleuritic chest pain Fibromyalgia Hypothyroidism TIA (transient ischemic attack) Diet-controlled diabetes mellitus Depression Arthritis Sleep apnea Hypogammaglobulinemia Pulmonary embolism Surgical History (Updated 09/02/23 @ 00:03 by Titi Camilo) History of esophagogastroduodenoscopy (EGD) Hx of colonoscopy S/P total abdominal hysterectomy History of cholecystectomy History of bariatric surgery Family History Family History Mother Diabetes Stroke Family/Other Diabetes Father Diabetes Maternal Aunt Cancer Social History Social History Household Members: None Housing: Apartment Are you a primary medication care manager to a significant other at home: No Do you 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 have 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) Alcohol intake: never Patient Tobacco Use Status: Never used Tobacco e-Cigarette/Vaping Use: Never Used Second Hand Smoke Exposure: No Substance Use Type: Opiates Advance Directives Date on File: 05/23/21 service: No Current occupational status: unemployed and disabled Physical Exam 2 Vital Signs: Vital Signs: Last Vital Signs Temp 97.2 F 11/24/23 15:41 Pulse 101 H 11/24/23 15:41 Resp 16 11/24/23 15:41 BP 121/69 11/24/23 15:41 Pulse Ox 94 11/24/23 15:41 O2 Del Method Room Air 11/24/23 15:41 BMI result Body Mass Index 38.1 Course Course Course Narrative: JEAN: 53 year-old F w/ PMHx anemia, asthma, gastritis, bypass, BABATUNDE, TIA, DM, presenting to the ED c/o fever, dizziness described as feeling lightheaded, ESPINAL, vomiting, back pain x5 days. Also reports CP & SOB. denies abdominal pain EKG, Labs, UA, Orthostatics ordered Full HPI, ROS and PE to be performed by primary ED provider. Medical Decision Making Lab Data 11/24/23 16:05 11/24/23 16:05 Labs: Lab Results 11/24/23 Range/Units 16:05 WBC 8.6 (4.8-10.8) X10*3/uL RBC 4.13 L (4.20-5.50) X10*6/uL Hgb 9.5 L (12.0-16.0) g/dl Hct 32.7 L (37.0-47.0) % MCV 79.2 L (80.0-98.0) fL MCH 23.0 L (27.0-33.0) pg MCHC 29.1 L (31.0-35.0) g/dl RDW 20.0 H (11.0-16.0) % Plt Count 374 D (160-400) X10*3/uL MPV 8.6 L (9.4-12.3) fL Immature Gran % (Auto) 0.7 H (0.0-0.4) % Neut % (Auto) 59.3 (45-73) % Lymph % (Auto) 29.6 (20-40) % [place] % (Auto) 7.9 (2-11) % Eos % (Auto) 2.0 (0-4) % Baso % (Auto) 0.5 (0-2) % Lymph # (Auto) 2.6 (1.2-4.9) X10*3/uL [place] # (Auto) 0.7 (0.1-1.2) X10*3/uL Eos # (Auto) 0.2 (0.0-0.4) X10*3/uL Baso # (Auto) 0.0 (0.0-0.2) X10*3/uL Abs Immat Gran (auto) 0.06 H (0.00-0.03) X10*3/uL Absolute Neuts (auto) 5.1 (2.0-8.3) x10*3/uL Absolute Nucleated RBC 0.000 (0.0-0.012) X10*3/uL Nucleated RBC % (auto) 0.0 (0.0-0.2) /100WBC Sodium 138 (135-145) mmol/L Potassium 4.3 (3.3-5.1) mmol/L Chloride 105 (96-108) mmol/L Carbon Dioxide 25 (22-29) mmol/L Anion Gap 12 (12-20) BUN 13 (9-16) mg/dL Creatinine 1.40 (0.5-1.4) mg/dL Estim Creat Clear Calc 43.5 Estimated GFR 39 Random Glucose 91 (60-115) mg/dL Calcium 9.8 D (8.4-10.2) mg/dL Magnesium 1.9 (1.6-2.6) mg/dL Total Bilirubin 0.2 (0.0-1.0) mg/dL Direct Bilirubin < 0.2 (0.0-0.5) mg/dL AST 19 (5-31) U/L ALT 17 (0-31) U/L Alkaline Phosphatase 90 (39-117) U/L Troponin I High Sens < 2.7 (<3.5-17.0) ng/L Total Protein 6.2 L (6.5-8.0) g/dL Albumin 3.6 (3.5-5.0) g/dL Lipase 20 (8-78) U/L COVID-19 (MARIO ALBERTO) Negative (Negative) COVID-19 Clin Com See Note Influenza Type A (LELE) Negative (Negative) Influenza Type B (LELE) Negative (Negative) Influenza A & B Note See Note Discharge Plan Discharge Clinical Impression: Dizziness Patient Disposition: Left W/O Completing Treatment Prescriptions: No Action ondansetron 4 mg tablet,disintegrating 4 mg PO TID PRN (Reason: nausea and vomiting) 5 Days Qty: 20 0RF Galzin 50 mg (zinc) capsule 100 mg PO DAILY 30 Days Qty: 60 1RF gabapentin 300 mg capsule 600 mg PO BID Qty: 120 11RF Privigen 10 % solution 40 g IV Q4W Qty: 400 11RF Rx Instructions: PER PATIENT, NEXT DOSE ~08/25/23 albuterol sulfate 2.5 mg /3 mL (0.083 %) solution for nebulization 2.5 mg inhalation Q4H PRN (Reason: shortness of breath or wheezing) 30 Days Qty: 360 11RF albuterol sulfate [Ventolin HFA] 90 mcg/actuation HFA aerosol inhaler 2 puff inhalation QID PRN (Reason: shortness of breath or wheezing) 30 Days Qty: 18 11RF prednisone 20 mg tablet See Rx Instructions PO DAILY 10 Days Qty: 15 0RF Rx Instructions: PO daily; Take 2 tabs daily x 5 days, then 1 tablet daily x 5 days Breztri Aerosphere 160-9-4.8 mcg/actuation HFA aerosol inhaler 2 inh inhalation BID 30 Days Qty: 10.7 11RF benzonatate 100 mg capsule 100 mg PO TID PRN (Reason: Cough) 30 Days Qty: 60 3RF lidocaine 5 % adhesive patch,medicated 1 patch topical BID Qty: 30 6RF Rx Instructions: leave on most painful area for up to 12 hrs lorazepam 0.5 mg tablet 0.25 mg PO .every other day PRN (Reason: Anxiety) montelukast 10 mg tablet 10 mg PO BEDTIME Eliquis 2.5 mg Tablet 2.5 mg PO BID Qty: 180 0RF dicyclomine 20 mg tablet 20 mg PO QID PRN (Reason: abdominal pain) Qty: 20 0RF escitalopram oxalate 10 mg tablet 1 tab PO DAILY zolpidem 10 mg tablet 10 mg PO BEDTIME valsartan 160 mg tablet 1 tab PO DAILY cholecalciferol (vitamin D3) 25 mcg (1,000 unit) tablet 1 tab PO DAILY acetaminophen 500 mg tablet 500 mg PO Q6H PRN (Reason: pain) Qty: 20 0RF meclizine 25 mg tablet 25 mg PO TID PRN (Reason: dizziness) Qty: 20 0RF prednisone 10 mg tablet 10 mg PO omeprazole 40 mg capsule,delayed release(DR/EC) 40 mg PO BID PRN (Reason: Acid Reflux) loratadine 10 mg tablet 10 mg PO DAILY quetiapine 400 mg tablet 400 mg PO BEDTIME polyethylene glycol 3350 17 gram Powder In Packet 17 g PO DAILY Qty: 30 0RF cyanocobalamin (vitamin B-12) 1,000 mcg tablet 1,000 mcg PO DAILY (DME) FreeStyle Lite Strips Strip See Rx Instructions .ROUTE BID Qty: 10 Rx Instructions: As directed betamethasone dipropionate 0.05 % lotion 1 appl topical BID PRN (Reason: psoriasis) Rx Instructions: apply to scalp calcipotriene 0.005 % ointment 1 appl topical BID PRN (Reason: flares) hydroxyzine HCl 25 mg tablet 25 mg PO TID PRN (Reason: itch) fluocinonide 0.05 % ointment 1 appl topical BID PRN (Reason: flares) fluticasone propionate 50 mcg/actuation spray,suspension 50 mcg intranasal DAILY Rx Instructions: 1 spray into each nostril (DME) nebulizers Misc See Rx Instructions .Route Rx Instructions: As directed naloxone 4 mg/actuation spray,non-aerosol 4 mg intranasal Q2M PRN (Reason: opioid overdose) 1 Days Qty: 2 2RF Rx Instructions: spray 1 dose into ONE nostril; alternate nostrils w each dose until help arrives benzonatate 200 mg capsule 200 mg PO TID PRN (Reason: cough) 30 Days Qty: 90 3RF ferrous sulfate 325 mg (65 mg iron) tablet 325 mg PO DAILY oxycodone 5 mg tablet 5 mg PO TID PRN (Reason: pain) 30 Days Qty: 90 0RF Rx Instructions: Partial Fill upon patient request. Discharge Date/Time: 11/24/23 20:41
--- NOTE | 2023-11-24 15:44 | ECG_ITS ---
Test Reason : dizziness Blood Pressure : / mmHG Vent. Rate : 092 BPM Atrial Rate : 092 BPM P-R Int : 136 ms QRS Dur : 096 ms QT Int : 370 ms P-R-T Axes : 040 -01 004 degrees QTc Int : 457 ms Normal sinus rhythm Nonspecific T wave abnormality Abnormal ECG When compared with ECG of 25-MAR-2023 21:51, No significant change was found Referred By: Marii Gonzalez Electronically Signed By:Valerio Dean
[2023-11-24 16:11] LABS: MANUAL DIFF FLAG NO
[2023-11-24 16:15] LABS: Basophils Percent Auto 0.5 % (0-2); Eosinophils Absolute Auto 0.2 X10*3/uL (0.0-0.4); Hematocrit 32.7 % (37.0-47.0); Hemoglobin 9.5 g/dl (12.0-16.0); Imm Gran Abs Auto 0.06 X10*3/uL (0.00-0.03); Imm Gran Pct Auto 0.7 % (0.0-0.4); Lymphocytes Absolute Auto 2.6 X10*3/uL (1.2-4.9); Lymphocytes Percent Auto 29.6 % (20-40); Mean Corpuscular HGB Conc 29.1 g/dl (31.0-35.0); Mean Corpuscular Volume 79.2 fL (80.0-98.0); Mean Platelet Volume 8.6 fL (9.4-12.3); Monocytes Absolute Auto 0.7 X10*3/uL (0.1-1.2); Monocytes Percent Auto 7.9 % (2-11); Neutrophils Absolute Auto 5.1 x10*3/uL (2.0-8.3); Neutrophils Percent Auto 59.3 % (45-73); Platelet Count 374 X10*3/uL (160-400); Red Blood Count 4.13 X10*6/uL (4.20-5.50); White Blood Count 8.6 X10*3/uL (4.8-10.8)
[2023-11-24 16:30] LABS: Alanine Aminotransferase 17 U/L (0-31); Albumin Level 3.6 g/dL (3.5-5.0); Alkaline Phosphatase 90 U/L (39-117); Anion Gap 12 (12-20); Aspartate Amino Transferase 19 U/L (5-31); Bilirubin Direct < 0.2 mg/dL (0.0-0.5); Bilirubin Total 0.2 mg/dL (0.0-1.0); Blood Urea Nitrogen 13 mg/dL (9-16); Calcium 9.8 mg/dL (8.4-10.2); Carbon Dioxide 25 mmol/L (22-29); Chloride 105 mmol/L (96-108); Creatinine Clr Calc Pharmacy 43.5; Estimated Glomerular Filt Rate 39; Glucose Random 91 mg/dL (60-115); Lipase 20 U/L (8-78); Magnesium 1.9 mg/dL (1.6-2.6); Potassium 4.3 mmol/L (3.3-5.1); Sodium 138 mmol/L (135-145); Total Protein 6.2 g/dL (6.5-8.0)
[2023-11-24 16:32] LABS: COVID-19 Test Negative (Negative); IDNOW Serial# 08D9AD1C; IDNOW Serial# 152EDE1D; Influenza A Negative (Negative); Influenza B2 Negative (Negative)
[2023-11-24 16:39] LABS: Troponin-I High Sensitivity < 2.7 ng/L (<3.5-17.0)
== END 2023-11-24 20:41 | disposition left against medical advice (07) ==
PROVIDERS: Physician Assistant; Emergency Provider Emergency Medicine; PCP Internal Medicine
DX: R42 Dizziness and giddiness (principal); R11.2 Nausea with vomiting, unspecified; R94.31 Abnormal electrocardiogram [ECG] [EKG]; Z79.899 Other long term (current) drug therapy; Z11.52 Encounter for screening for COVID-19
CPT/HCPCS: 71045; 80048; 80076; 83690; 83735; 84484; 85025; 87502; 87635; 93005; 99283

== ENCOUNTER → 2023-11-24 15:44 | Outpatient (BNV) | payer OTHER, SELFPAY | PROVIDERS: Emergency Provider Emergency Medicine; PCP Internal Medicine; Visit Provider Internal Medicine Cardiovascular Disease | DX: R11.0 Nausea (principal); R94.31 Abnormal electrocardiogram [ECG] [EKG] | CPT/HCPCS: 93010 ==

== ENCOUNTER 2023-12-06 09:23 | Outpatient (REF) | payer OTHER, SELFPAY ==
[2023-12-06 09:45] LABS: MANUAL DIFF FLAG NO
[2023-12-06 10:15] LABS: Basophils Percent Auto 0.3 % (0-2); Eosinophils Absolute Auto 0.3 X10*3/uL (0.0-0.4); Eosinophils Percent Auto 4.7 % (0-4); Hemoglobin 10.3 g/dl (12.0-16.0); Imm Gran Abs Auto 0.02 X10*3/uL (0.00-0.03); Imm Gran Pct Auto 0.3 % (0.0-0.4); Lymphocytes Absolute Auto 1.7 X10*3/uL (1.2-4.9); Mean Corpuscular HGB Conc 29.4 g/dl (31.0-35.0); Mean Corpuscular Volume 78.3 fL (80.0-98.0); Mean Platelet Volume 8.4 fL (9.4-12.3); Monocytes Absolute Auto 0.4 X10*3/uL (0.1-1.2); Neutrophils Absolute Auto 3.8 x10*3/uL (2.0-8.3); Neutrophils Percent Auto 60.7 % (45-73); Platelet Count 380 X10*3/uL (160-400); Red Blood Count 4.47 X10*6/uL (4.20-5.50); Red Cell Distribution Width 18.9 % (11.0-16.0); White Blood Count 6.2 X10*3/uL (4.8-10.8)
[2023-12-06 10:42] LABS: Anion Gap 14 (12-20); Blood Urea Nitrogen 15 mg/dL (9-16); Calcium 9.9 mg/dL (8.4-10.2); Carbon Dioxide 23 mmol/L (22-29); Chloride 110 mmol/L (96-108); Estimated Glomerular Filt Rate 43; Glucose Random 89 mg/dL (60-115); Potassium 4.3 mmol/L (3.3-5.1); Sodium 143 mmol/L (135-145)
[2023-12-06 10:51] LABS: Erythrocyte Sedimentation Rate 20 MM/HR (0-20)
[2023-12-07 13:38] LABS: IgA 96 mg/dL (47-310); IgG 512 mg/dL (600-1640); IgM 60 mg/dL (50-300)
[2023-12-07 15:24] LABS: Immunoglobulin G Subclass 1 305 mg/dL (382-929); Immunoglobulin G Subclass 2 128 mg/dL (241-700); Immunoglobulin G Subclass 3 9 mg/dL (22-178); Immunoglobulin G Subclass 4 3.7 mg/dL (4-86); Immunoglobulin G Total 474 mg/dL (600-1640)
== END 2023-12-06 09:24 | disposition home or self-care (01) ==
LOC: HO.LAB 09:23
PROVIDERS: PCP Internal Medicine; Visit Provider Hospitalist
DX: J42 Unspecified chronic bronchitis (principal); J45.909 Unspecified asthma, uncomplicated
CPT/HCPCS: 36415; 80048; 82784; 85025; 85652

== ENCOUNTER 2023-12-08 09:49 | Outpatient (AMB) | payer OTHER, SELFPAY ==
[2023-12-08 10:17] VITALS: BP 153/67; PULSE 86; RESP 14; O2SAT 96; BMI 38.0
--- NOTE | 2023-12-08 10:17 | MHC.OFFVIS ---
Intake Vital Signs 12/08/23 10:17 Height 4 ft 11 in Weight 188 lb BMI 38.0 BP 153/67 H Blood Pressure Location Lt brachial Respiration 14 Pulse 86 Pulse Source Pulse Oximeter Pulse Oximetry (%) 96 Oxygen Delivery Method Room Air Intake Visit Reasons: Pill count Allergies No Known Allergies Allergy (Verified 12/08/23 12:09) HPI HPI Comments History of Present Illness Details Maye is a very pleasant 53 year old female who presents to the office today, accompanied by her granddaughter, for follow up chronic pain and chronic opioid therapy management. Patient is prescribed oxycodone 5mg tabs, take one tablet three times daily. Patient arrived today with the expectation of having 51 pills, she presented 36 pills which were counted in the presence of two staff members and returned to the patient in the original prescription bottle. This demonstrates responsible attitude toward patient's opioid medications. Pain is reported today as 7/10 and last dose of pain medication was taken at 07:30 this morning. She denies side effects including nausea, constipation, somnolence, weakness, chest pain or syncope. Chronic pain is adequately managed on current opioid regimen with improvement in mobility and overall functioning. Patient does reports that she has been suffering with left knee pain since a fall over one month ago, she has appt with ortho next week for evaluation/management. Previously: She was suspended for 6 months because UDS demonstrated tramadol in her urine. She was admitted slightly earlier on the request of her PCP - she developed renal insufficiency and she was taking large doses of NSAIDs to help her pain. Her risk of Opioid was low.? When she come back from suspension her opioid risk will become moderate. 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 Dizziness Headache Elevated lactic acid level Bronchitis Headache, migraine Asthma exacerbation Cough BABATUNDE (obstructive sleep apnea) Chronic pain syndrome Spondylosis of lumbar spine Low back pain Complex regional pain syndrome i of left lower limb Diabetic neuropathy Laryngotracheitis Essential hypertension Type 2 diabetes mellitus with unspecified complications Morbid obesity Anemia Back pain Pleuritic chest pain Fibromyalgia Hypothyroidism TIA (transient ischemic attack) Diet-controlled diabetes mellitus Depression Arthritis Sleep apnea Hypogammaglobulinemia Pulmonary embolism Surgical History History of esophagogastroduodenoscopy (EGD) Hx of colonoscopy S/P total abdominal hysterectomy History of cholecystectomy History of bariatric surgery Family History Mother Diabetes Stroke Family/Other Diabetes Father Diabetes Maternal Aunt Cancer Social History Household Members: None Housing: Apartment Are you a primary behavioral health care coordinator to a significant other at home: No 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) Alcohol intake: never Patient Tobacco Use Status: Never used Tobacco e-Cigarette/Vaping Use: Never Used Second Hand Smoke Exposure: No Substance Use Type: Opiates Advance Directives Date on File: 05/23/21 service: No Current occupational status: unemployed and disabled Review of Systems Const All systems reviewed & are unremarkable except as noted in HPI and below Physical Exam Vital Signs: Last Vital Signs Pulse 86 12/08/23 10:17 Resp 14 12/08/23 10:17 BP 153/67 H 12/08/23 10:17 Pulse Ox 96 12/08/23 10:17 Oxygen Delivery Method Room Air 12/08/23 10:17 BMI result Body Mass Index 38.0 General: awake, alert, oriented. Answers questions appropriately. Fully engaged in examination. Skin: warm, dry, intact. HEENT: Normocephalic. Hearing intact. Cardiac: External chest normal in appearance. Respiratory: No cough, audible wheezing or stridor. Abdomen: without gross distension. MS: No obvious swelling or deformities. Able to transition from sit to stand unassisted. Ambulates with use of a cane Neurological: Oriented to person, place, time and situation. Thought process intact. Psychiatric: Appropriate mood and affect. Good judgment and insight. Results Reviewed Results Reviewed: 11/12/2021EXAMINATION: THORACIC AND LUMBAR SPINE X-RAY FINDINGS: Thoracic spine: Exam is limited due to light film technique and patient body habitus. There is mild curvature of the midthoracic spine to the right. Bone alignment is otherwise normal. No fracture or dislocation is seen. There is mild multilevel degenerative disc disease of the midthoracic spine. Paraspinal soft tissues are unremarkable. Lumbar spine: Bone alignment is normal. No fracture or dislocation is seen. Disc spaces are normal. There is lower lumbar spine facet arthritis.? XR/XR lumbar spine 2-3V IMPRESSION: No fracture or dislocation seen. Degenerative changes. Evaluation of the thoracic spine is limited due to patient body habitus.? 03/03/2021 MR LUMBAR SPINE WITHOUT CONTRAST FINDINGS: Coronal Alignment:?Normal. Sagittal Alignment:?2 mm of grade 1 spondylolisthesis at L5-S1 has developed since the previous exam. Trace retrolisthesis at L3-L4 is stable. Lumbosacral Junction: ?Normal. Vertebral Bodies: Normal height. Bone Marrow:? Large benign vertebral hemangioma in the L4 vertebral body on the left is stable. There is an 8 mm probable atypical benign hemangioma in the L3 vertebral body. No suspicious marrow replacing process or bone marrow edema. Conus Medullaris:?Terminates at L1.?Morphology and signal is normal. Intradural Nerve Roots: Within normal limits. 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 Maximum diameter is 4 mm, unchanged. SPINAL LEVELS: L5-S1: Mild loss of disc space height is noted with disc desiccation with minimal progression of disc space height loss from previous study, with development of slight anterolisthesis. There is marked facet arthropathy on the right progressed from previous study and moderate facet arthropathy on the left also slightly progressed. Right-sided facet joint effusion noted on current exam with a small synovial cyst along its posterior margin with subchondral marrow edema on both sides of the facet joint consistent with facet inflammatory changes. There is anterior and right paravertebral spondylosis and there is mild disc bulging with a superimposed right-sided foraminal disc herniation progressed from previous exam. There is mild right-sided neural foraminal stenosis without neural impingement and there is no significant canal stenosis. L4-L5: Disc space height and signal are well maintained. No significant disc bulge or herniation and no significant spondylosis. Mild facet arthrosis bilaterally noted without significant canal or neural foraminal stenosis. L3-L4: Mild loss of disc space height is noted with mild disc desiccation and slight retrolisthesis, stable in appearance. No significant disc bulge or herniation. No significant canal or neural foraminal stenosis. Minor spondylosis is unchanged. L2-L3: Disc space height and signal are well maintained without disc bulge or herniation and no significant facet arthrosis, canal or neural foraminal stenosis, stable in appearance. L1-L2: Disc space height and signal are well maintained without disc bulge or herniation and no significant spondylosis. No significant facet arthrosis, canal or neural foraminal stenosis. Paraspinal/Retroperitoneal: The paravertebral soft tissues appear unremarkable. There is a 2.9 cm probable parapelvic cyst in the mid left kidney increased in size from previous exam. A 1 cm cortical cyst lateral cortex upper pole of right kidney, unchanged. Partially imaged exophytic cortical cyst lateral cortex mid left kidney, increased in size. MR/MR lumbar spine wo con IMPRESSION: 1. Progression of facet arthropathy at L5-S1 right more the left with facet inflammatory changes on the right on the current study, with development of grade 1 spondylolisthesis with progression of disc degenerative change. Development of right foraminal disc herniation and minimal disc bulging with mild right-sided foraminal stenosis since prior exam. ? 2. Mild bilateral facet arthropathy at L4-L5, stable in appearance. ? 3. Thickened, fatty filum, consistent with a benign fibrolipoma of the filum terminale, unchanged. ? 4. Multiple bilateral renal cysts, some of which have increased in size on the left, probably unchanged from previous CT abdomen of 03/16/2019. Assessment & Plan Assessment & Plan (1) Knee pain, left: Code(s): M25.562 - Pain in left knee Qualifiers: Chronicity: chronic Qualified Code(s): M25.562 - Pain in left knee; G89.29 - Other chronic pain (2) Low back pain: Code(s): M54.5 - Low back pain Qualifiers: Chronicity: chronic Back pain laterality: bilateral Sciatica presence: without sciatica Qualified Code(s): M54.50 - Low back pain, unspecified; G89.29 - Other chronic pain (3) Disc degeneration, lumbosacral: Code(s): M51.37 - Other intervertebral disc degeneration, lumbosacral region (4) Spondylosis of lumbar joint: Code(s): M47.816 - Spondylosis without myelopathy or radiculopathy, lumbar region (5) Spondylosis of cervical spine: Code(s): M47.812 - Spondylosis without myelopathy or radiculopathy, cervical region (6) Osteoporosis: Code(s): M81.0 - Age-related osteoporosis without current pathological fracture (7) Sacroiliac joint dysfunction of left side: Code(s): M53.3 - Sacrococcygeal disorders, not elsewhere classified (8) Left hip pain: Code(s): M25.552 - Pain in left hip Plan Maye is a very pleasant 53 year old female who presented to the office today for follow up chronic pain and chronic opioid medication management. Masspat was reviewed and without concerns. No obvious signs of diversion, abuse or misuse of the opioid medications. Patient has narcan at home, trained in the use. declines refill today. Will send in prescription for oxycodone 5mg TID with an advanced date of 12/22/23 Follow up with ortho as planned for knee pain All questions and concerns have been answered and patient agrees with the plan. Follow up in 1 month, sooner if needed. Medications: Refilled oxycodone Partial Fill upon patient request. 5 mg PO TID PRN 90 tabs 0RF pain 30 days Coding Level of Care Code Est Pt Level 4 (63691) Diagnoses Chronic pain of left knee M25.562; G89.29 Chronicity: chronic Chronic bilateral low back pain without sciatica M54.50; G89.29 Chronicity: chronic Back pain laterality: bilateral Sciatica presence: without sciatica Disc degeneration, lumbosacral M51.37 Spondylosis of lumbar joint M47.816 Spondylosis of cervical spine M47.812 Osteoporosis M81.0 Sacroiliac joint dysfunction of left side M53.3 Left hip pain M25.552
== END 2023-12-08 10:36 | disposition home or self-care (01) ==
PROVIDERS: PCP Internal Medicine; Visit Provider Registered Nurse Emergency
DX: G89.29 Other chronic pain (principal); M25.562 Pain in left knee; M54.50 Low back pain, unspecified; Z79.891 Long term (current) use of opiate analgesic; M51.37 Other intervertebral disc degeneration, lumbosacral region; M47.816 Spondylosis without myelopathy or radiculopathy, lumbar region; M47.812 Spondylosis without myelopathy or radiculopathy, cervical region; M81.0 Age-related osteoporosis without current pathological fracture; M53.3 Sacrococcygeal disorders, not elsewhere classified; M25.552 Pain in left hip
CPT/HCPCS: 99214

== ENCOUNTER → 2023-12-08 09:49 | Outpatient (BNVA) | payer OTHER, SELFPAY | PROVIDERS: PCP Internal Medicine; Visit Provider Registered Nurse Emergency | DX: Z51.81 Encounter for therapeutic drug level monitoring (principal); F11.20 Opioid dependence, uncomplicated; M25.562 Pain in left knee; M54.50 Low back pain, unspecified; M51.37 Other intervertebral disc degeneration, lumbosacral region; M47.816 Spondylosis without myelopathy or radiculopathy, lumbar region; M47.812 Spondylosis without myelopathy or radiculopathy, cervical region; M81.0 Age-related osteoporosis without current pathological fracture; M53.3 Sacrococcygeal disorders, not elsewhere classified; M25.552 Pain in left hip; G89.29 Other chronic pain; K28.9 Gastrojejunal ulcer, unspecified as acute or chronic, without hemorrhage or perforation; D64.9 Anemia, unspecified; R10.9 Unspecified abdominal pain; Z98.84 Bariatric surgery status | CPT/HCPCS: 99212 ==

== ENCOUNTER 2023-12-08 12:04 | Outpatient (AMB) | payer OTHER, SELFPAY ==
--- NOTE | 2023-12-08 12:08 | A.OFFVIS_ITS ---
Intake Vital Signs 12/08/23 12:13 Weight 188 lb BP 101/63 Blood Pressure Location Lt brachial Position Sitting Pulse 83 Intake Visit Reasons: abdominal pain f/u Intake Note: Patient here c/o abdominal pain. Last visit 02-12-23. Rx vitamin D. Continues taking Omeprazole 40mg BID. Patient c/o: constant abd pain. Expiriencing pain after drinking water, eating. 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 Initial visit 06/16/22: Background: Patient previously has been seen by Mayuri Santiago. From the review of the chart her complaints have been similar and persistent for almost 10 years now. Seem t o have started couple of years after her gastric bypass surgery in 2008. Has undergone extensive workup including multiple bidirectional endoscopy. Initially was thought to have dumping syndrome, more recently was being managed as bile salt diarrhea versus IBS-D. Therapies tries in the past include PPI, dicyclomine, Imodium, and more recently alosetron. Today: Patient reports that her symptoms are unchanged and have been going on for the past 6 months. Typically her symptoms are intermittent and manageable with at least 1 or 2 of the above medications, however last week her pain was very severe in persistent and therefore she went to the emergency room. Pain is primarily in periumbilical region and radiates to her R side of the back almost like a band. This is associated with severe nausea and vomiting which is nonbloody and nonbilious. Has not been able to eat much, last solid food was . Only taking liquids such as chicken broth. Weight loss + 9 lbs in a week. Also accompanied with watery diarrhea 4-5/day, urgency +, fecal incontinence +, Nocturnal diarrhea +. Diarrhea does not improve even when she does not eat. Abdominal pain gets better after defecation, patient reports feeling decompressed . Off note, when medications were reviewed, patient mentioned that she stopped taking Carafate, omeprazole, dicyclomine and alosetron many months ago as she did not think they were helping. She takes 1-2 tablets of Imodium occasionally if the diarrhea becomes very severe. Imaging in ER showed evidence of prior gastric bypass but otherwise unremarkable. Labs reassuring without a white count or abnormality in the Chem panel. On apixaban for anticoagulation for PE in 2019. Had EGD and colonoscopy 04/2020 - with biopsies negative for H pylori, sprue or microscopic colitis. History of RYGB in 2008 and cholecystectomy > 20 years ago. EGD 11/12/22: * Normal esophagus * Wide GJ anastomsis * 3 cm long gastric pouch with normal mucosa (biopsy) * Erythema around the anastomosis with one marginal ulcer (clean based) * Surgical staple Path: Gastric remnant, biopsy:? Gastric antral and body mucosa with reactive changes and minimal chronic inactive gastritis; negative for H pylori, intestinal metaplasia and dysplasia. Today 11/25/22: Seen today with the help of a demonstrator sewing techniques. Reports some improvement in symptoms with starting PPI. Taking it BID and opening capsules in applesauce. Nausea and abd discomfort somewhat better but not completely resolved. Although pt had previously reported weight loss she now reports has been gaining weight. EGD and path findings reviewed. Has not yet followed up with bariatrics yet. 02/12/23: Pt presented sick to the office. Has a URI today x 4 days assoc with fevers and productive cough. Has not contacted PCP or been to urgent care. Vitals stable in office today including O2 sat. From GI perspective reports abd pain persistent although not as bad as before. Appetite is suppressed these days due to ongoing URI. Pt reports taking PPI with apple JUICE not applesauce. 12/08/22: Was admitted in Aug for ileus. Now also established with pain management and on chronic opiates which are being monitored by them. Main complaint today is recurrence of severe epigastric and LUQ pain that she had back in 2021 as well. Assoc with nausea, decrease in appetite and excessive belching. Reports cont omeprazole 40 once daily in applesauce even though does not appear to have been filled since April 2023. Also not taking carafate. 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 Dizziness Headache Elevated lactic acid level Bronchitis Headache, migraine Asthma exacerbation Cough BABATUNDE (obstructive sleep apnea) Chronic pain syndrome Spondylosis of lumbar spine Low back pain Complex regional pain syndrome i of left lower limb Diabetic neuropathy Laryngotracheitis Essential hypertension Type 2 diabetes mellitus with unspecified complications Morbid obesity Anemia Back pain Pleuritic chest pain Fibromyalgia Hypothyroidism TIA (transient ischemic attack) Diet-controlled diabetes mellitus Depression Arthritis Sleep apnea Hypogammaglobulinemia Pulmonary embolism Surgical History History of esophagogastroduodenoscopy (EGD) Hx of colonoscopy S/P total abdominal hysterectomy History of cholecystectomy History of bariatric surgery Family History Mother Diabetes Stroke Family/Other Diabetes Father Diabetes Maternal Aunt Cancer Social History Household Members: None Housing: Apartment Are you a primary customer care associate to a significant other at home: No Do you presently have 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9 - Unspecified abdominal pain (2) Marginal ulcer: Code(s): K28.9 - Gastrojejunal ulcer, unspecified as acute or chronic, without hemorrhage or perforation (3) Anemia: Code(s): D64.9 - Anemia, unspecified (4) Gastric bypass status for obesity: Code(s): Z98.84 - Bariatric surgery status Plan 1. Abd pain Given her history of gastric bypass and marginal ulcer, appears to be the most likely etiology for her worsening pain this time as well. CBC reviewed and H/H stable. Most likely due to taking suboptimal dose of omeprazole and discontinuing her sucralfate. Offered patient another upper endoscopy, however, she prefers to go back on the medication first to see if she responds to it Plan: -omeprazole 40 mg b.i.d.-patient to open the capsule and mixed with applesauce or pudding -sucralfate 10 mL to be taken 4 times a day -patient to call office if pain does not improve in 6-8 weeks, to schedule an endoscopy. Otherwise follow-up in 3 months Medications: New sucralfate 10 mL PO QIDACHS 1,000 mL 1RF Changed From omeprazole 40 mg PO BID PRN Acid Reflux To omeprazole 40 mg PO BID 180 caps 0RF Acid Reflux Coding Level of Care Code Est Pt Level 4 (13431) Diagnoses Abdominal pain R10.9 Marginal ulcer K28.9 Anemia D64.9 Gastric bypass status for obesity Z98.84
[2023-12-08 12:13] VITALS: BP 101/63; PULSE 83
== END 2023-12-08 12:33 | disposition home or self-care (01) ==
PROVIDERS: PCP Internal Medicine; Visit Provider Internal Medicine
DX: R10.9 Unspecified abdominal pain (principal); K28.9 Gastrojejunal ulcer, unspecified as acute or chronic, without hemorrhage or perforation; D64.9 Anemia, unspecified; Z98.84 Bariatric surgery status
CPT/HCPCS: 99214

== ENCOUNTER 2023-12-09 06:15 | Day surgery (SDC) | payer OTHER, SELFPAY ==
[2023-11-30 12:05] VITALS: BMI 36.8
--- NOTE | 2023-12-08 12:58 | HO.ANESPROP2 ---
Documented by User: Polina Christopher NP 12/08/23 13:03 HPI - Anesthesia Eval Consult details Narrative: 53yo F for Bronchoscopy Fiberoptic Eliquis for hx PE PMFSH Active Problems Active Problems: All Active Problems (Updated 12/03/23 @ 00:01 by Titi Camilo) Sacroiliac joint dysfunction of left side (Acute) Iron deficiency (Acute) Low vitamin D level (Acute) Marginal ulcer (Acute) Gastric bypass status for obesity (Acute) Asthma (Acute) Radiculopathy (Acute) Precordial chest pain (Acute) Migraine with acute onset aura (Acute) Irritable bowel syndrome with diarrhea (Acute) Chronic gastritis (Acute) Chronic bronchitis (Acute) Asthma exacerbation attacks (Acute) Osteoporosis (Acute) Spondylosis of cervical spine (Acute) Asthma-COPD overlap syndrome (Acute) Spondylosis of lumbar joint (Acute) Disc degeneration, lumbosacral (Acute) Cough (Acute) BABATUNDE (obstructive sleep apnea) (Acute) Chronic pain syndrome (Acute) Spondylosis of lumbar spine (Acute) Low back pain (Acute) Complex regional pain syndrome i of left lower limb (Acute) Diabetic neuropathy (Acute) Laryngotracheitis (Acute) Essential hypertension (Acute) Type 2 diabetes mellitus with unspecified complications (Acute) Morbid obesity (Acute) Anemia (Acute) Back pain (Acute) TIA (transient ischemic attack) (Acute) Sleep apnea (Acute) Hypothyroidism (Acute) Fibromyalgia (Acute) Diet-controlled diabetes mellitus (Acute) Arthritis (Acute) Hypogammaglobulinemia (Acute) Pleuritic chest pain (Acute) Pulmonary embolism (Acute) Past Medical History Medical History Constipation Knee pain, left Left hip pain Upper respiratory infection Weight gain Acute bronchitis Abdominal pain Persistent cough COVID-19 History of peristent cough as a child Epigastric pain Bile salt-induced diarrhea Acute severe exacerbation of moderate persistent asthma History of COVID-19 Osteoporosis Spondylosis of cervical spine Asthma-COPD overlap syndrome Spondylosis of lumbar joint Nausea vomiting and diarrhea Disc degeneration, 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 Dizziness Headache Elevated lactic acid level Bronchitis Headache, migraine Asthma exacerbation Cough BABATUNDE (obstructive sleep apnea) Chronic pain syndrome Spondylosis of lumbar spine Low back pain Complex regional pain syndrome i of left lower limb Diabetic neuropathy Laryngotracheitis Essential hypertension Type 2 diabetes mellitus with unspecified complications Morbid obesity Anemia Back pain Pleuritic chest pain Fibromyalgia Hypothyroidism TIA (transient ischemic attack) Diet-controlled diabetes mellitus Depression Arthritis Sleep apnea Hypogammaglobulinemia Pulmonary embolism Family History Family History Mother Diabetes Stroke Family/Other Diabetes Father Diabetes Maternal Aunt Cancer Family history of problems with anesthesia: No Surgical History Surgical History History of esophagogastroduodenoscopy (EGD) Hx of colonoscopy S/P total abdominal hysterectomy History of cholecystectomy History of bariatric surgery History of Problems with Anesthesia: No Social History Social History Household Members: None Housing: Apartment Are you a primary pharmacy customer care specialist to a significant other at home: No Do you presently have visiting nurse 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) Alcohol intake: never Patient Tobacco Use Status: Never used Tobacco e-Cigarette/Vaping Use: Never Used Second Hand Smoke Exposure: No Substance Use Type: Opiates Advance Directives Date on File: 05/23/21 service: No Current occupational status: unemployed and disabled Meds Allergies Allergy/AdvReac Type Severity Reaction Status Date / Time No Known Allergies Allergy Verified 12/08/23 12:09 Home Medications Medication Instructions Recorded Confirmed Last Taken Type montelukast 10 mg tablet 10 mg PO BEDTIME 08/02/20 11/30/23 08/21/23 History cyanocobalamin (vitamin B-12) 1,000 mcg PO DAILY 11/05/20 11/30/23 08/21/23 History 1,000 mcg tablet escitalopram oxalate 10 mg tablet 1 tab PO DAILY 08/21/22 11/30/23 08/21/23 History cholecalciferol (vitamin D3) 25 1 tab PO DAILY 11/28/22 11/30/23 08/21/23 History mcg (1,000 unit) tablet valsartan 160 mg tablet 1 tab PO DAILY 11/28/22 11/30/23 08/21/23 History betamethasone dipropionate 0.05 % 1 appl topical BID PRN psoriasis 02/12/23 11/09/23 Unknown History lotion blood sugar diagnostic (FreeStyle #10 ea 02/12/23 11/09/23 Unknown History Lite Strips) calcipotriene 0.005 % topical 1 appl topical BID PRN flares 02/12/23 11/09/23 Unknown History ointment fluocinonide 0.05 % topical 1 appl topical BID PRN flares 02/12/23 11/09/23 Unknown History ointment fluticasone propionate 50 50 mcg intranasal DAILY 02/12/23 11/30/23 08/21/23 History mcg/actuation nasal spray,suspension hydroxyzine HCl 25 mg tablet 25 mg PO TID PRN itch 02/12/23 11/30/23 Unknown History nebulizers 04/02/23 11/09/23 Unknown History loratadine 10 mg tablet 10 mg PO DAILY 08/22/23 11/30/23 08/21/23 History quetiapine 400 mg tablet 400 mg PO BEDTIME 08/22/23 11/30/23 08/21/23 History ferrous sulfate 325 mg (65 mg 325 mg PO DAILY 11/08/23 11/30/23 Unknown History iron) tablet lorazepam 0.5 mg tablet 0.25 mg PO .every other day PRN 11/10/23 11/30/23 Unknown History Anxiety zolpidem 10 mg tablet 10 mg PO BEDTIME Insomnia 11/22/23 11/30/23 Unknown History blood-glucose meter (FreeStyle #1 ea 12/08/23 Unknown History [place] Lite kit) lancets 28 gauge (FreeStyle #100 ea 12/08/23 Unknown History Lancets) Exam Height,Weight and Vital Signs: Height 4 ft 11 in Weight 82.554 kg Pertinent Lab Results Pertinent Lab Results: Laboratory Tests 12/06/23 09:44 WBC 6.2 Hgb 10.3 L Hct 35.0 L Plt Count 380 Sodium 143 Potassium 4.3 Chloride 110 H Carbon Dioxide 23 BUN 15 Creatinine 1.29 Narrative Narrative: EKG 11/2023 Vent. Rate : 092 BPM Atrial Rate : 092 BPM P-R Int : 136 ms QRS Dur : 096 ms QT Int : 370 ms P-R-T Axes : 040 -01 004 degrees QTc Int : 457 ms Normal sinus rhythm Nonspecific T wave abnormality Abnormal ECG When compared with ECG of 25-MAR-2023 21:51, No significant change was found Assessment and Plan Assessment Anesthesia Assessment: Chart Reviewed Final Anesthetic Review Family History of Problems with Anesthesia: No History of Problems with Anesthesia: No Documented by User: Sidney Lomeli MD 12/09/23 09:36 PMF Past Medical History Medical History Constipation Knee pain, left Left hip pain Upper respiratory infection Weight gain Acute bronchitis Abdominal pain Persistent cough COVID-19 History of peristent cough as a child Epigastric pain Bile salt-induced diarrhea Acute severe exacerbation of moderate persistent asthma History of COVID-19 Osteoporosis Spondylosis of cervical spine Asthma-COPD overlap syndrome Spondylosis of lumbar joint Nausea vomiting and diarrhea Disc degeneration, 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 Dizziness Headache Elevated lactic acid level Bronchitis Headache, migraine Asthma exacerbation Cough BABATUNDE (obstructive sleep apnea) Chronic pain syndrome Spondylosis of lumbar spine Low back pain Complex regional pain syndrome i of left lower limb Diabetic neuropathy Laryngotracheitis Essential hypertension Type 2 diabetes mellitus with unspecified complications Morbid obesity Anemia Back pain Pleuritic chest pain Fibromyalgia Hypothyroidism TIA (transient ischemic attack) Diet-controlled diabetes mellitus Depression Arthritis Sleep apnea Hypogammaglobulinemia Pulmonary embolism Family History Family History Mother Diabetes Stroke Family/Other Diabetes Father Diabetes Maternal Aunt Cancer Surgical History Surgical History History of esophagogastroduodenoscopy (EGD) Hx of colonoscopy S/P total abdominal hysterectomy History of cholecystectomy History of bariatric surgery Social History Social History Household Members: None Housing: Apartment Are you a primary pharmacy customer care specialist to a significant other at home: No Do you presently have visiting nurse 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) Alcohol intake: never Patient Tobacco Use Status: Never used Tobacco e-Cigarette/Vaping Use: Never Used Second Hand Smoke Exposure: No Substance Use Type: Opiates Advance Directives Date on File: 05/23/21 service: No Current occupational status: unemployed and disabled Meds Allergies Allergy/AdvReac Type Severity Reaction Status Date / Time No Known Allergies Allergy Verified 12/08/23 12:09 Home Medications Medication Instructions Recorded Confirmed Last Taken Type montelukast 10 mg tablet 10 mg PO BEDTIME 08/02/20 11/30/23 08/21/23 History cyanocobalamin (vitamin B-12) 1,000 mcg PO DAILY 11/05/20 11/30/23 08/21/23 History 1,000 mcg tablet escitalopram oxalate 10 mg tablet 1 tab PO DAILY 08/21/22 11/30/23 08/21/23 History cholecalciferol (vitamin D3) 25 1 tab PO DAILY 11/28/22 11/30/23 08/21/23 History mcg (1,000 unit) tablet valsartan 160 mg tablet 1 tab PO DAILY 11/28/22 11/30/23 08/21/23 History betamethasone dipropionate 0.05 % 1 appl topical BID PRN psoriasis 02/12/23 11/09/23 Unknown History lotion blood sugar diagnostic (FreeStyle #10 ea 02/12/23 11/09/23 Unknown History Lite Strips) calcipotriene 0.005 % topical 1 appl topical BID PRN flares 02/12/23 11/09/23 Unknown History ointment fluocinonide 0.05 % topical 1 appl topical BID PRN flares 02/12/23 11/09/23 Unknown History ointment fluticasone propionate 50 50 mcg intranasal DAILY 02/12/23 11/30/23 08/21/23 History mcg/actuation nasal spray,suspension hydroxyzine HCl 25 mg tablet 25 mg PO TID PRN itch 02/12/23 11/30/23 Unknown History nebulizers 04/02/23 11/09/23 Unknown History loratadine 10 mg tablet 10 mg PO DAILY 08/22/23 11/30/23 08/21/23 History quetiapine 400 mg tablet 400 mg PO BEDTIME 08/22/23 11/30/23 08/21/23 History ferrous sulfate 325 mg (65 mg 325 mg PO DAILY 11/08/23 11/30/23 Unknown History iron) tablet lorazepam 0.5 mg tablet 0.25 mg PO .every other day PRN 11/10/23 11/30/23 Unknown History Anxiety zolpidem 10 mg tablet 10 mg PO BEDTIME Insomnia 11/22/23 11/30/23 Unknown History blood-glucose meter (FreeStyle #1 ea 12/08/23 Unknown History [place] Lite kit) lancets 28 gauge (FreeStyle #100 ea 12/08/23 Unknown History Lancets) Exam Airway Mallampati Class: II TM Dist: <=3cm Neck ROM: Full Denture: Upper and Lower Heart: ok Lungs: ok Assessment and Plan Assessment Anesthesia Assessment: Anesthesia Plan Discussed Final Anesthetic Review NPO: Yes ASA Class: III Final Preanesthetic Review: No Changes in Pt Med Stat, Meds/Allgs Chart Reviewed, Consent Obtained/Reviewed and Anes Risks/Benef Reviewed Patient Risk: Intermediate Procedure Risk: Intermediate Anesthetic Plan Anesthetic Plan: Agree w/ Assess. and Plan and TIVA Disposition: Standard PACU
[2023-12-09] VITALS (9 sets, daily range): BP systolic 68–96; BP diastolic 44–57; PULSE 82–110; RESP 10–22; TEMP 36.1–36.4; O2SAT 94–98; BMI 37.0
[2023-12-09 06:55] LABS: Glucose, Whole Blood 110 mg/dL (60-115)
[2023-12-09] MEDS: Lactated Ringers 1,000 ML 100 ML IVCONT (07:16)
--- NOTE | 2023-12-09 08:06 | MHC.SHP ---
Pre-Procedural Eval Section A - 24 Hr Update-Section A only Date of Service: 12/09/23 The patient is an INPATIENT: No Changes since office visit: No Cold of Flu in the past 2 weeks, No New Medical Problems, No Changes in Medication and No Patient answered all questions The patient has been examined within 24 hours of the surgical procedure. The History & Physical has been completed within 30 days and I have reviewed it.: Yes Section B - Complete if H&P > 30 days Chief Complaint: Cough, unspecified Allergies: Allergies Allergy/AdvReac Type Severity Reaction Status Date / Time No Known Allergies Allergy Verified 12/08/23 12:09 Plan I have reviewed the history and physical and performed a pertinent physical examination on my patient. No changes have occurred unless specified. Time Spent With Patient Time: Total time managing care of this patient today ____ minutes.
--- NOTE | 2023-12-09 09:33 | PM.OP ---
Brief Operative Note Date of Service: 12/09/23 Pre-op diagnosis: cough Post-op diagnosis: other (tracheobronchomalecia, cough) Procedure: Bronchoscopy Implants: Surgeon: John Larry MD Anesthesia: MAC Was an Ruffling Machine Operator used for this Procedure?: No Estimated blood loss (mL): 0 Pathology: none sent Condition: stable Disposition: same day
[2023-12-09] MEDS: fentaNYL citrate/PF 100 MCG/2 ML VIAL 50 MCG IVPUSH (09:40)
[2023-12-09] MEDS: Midazolam HCl/PF 2 MG/2 ML VIAL 1 MG IVPUSH (09:40)
[2023-12-09] MEDS: Acetaminophen 325 MG TABLET 650 MG PO (11:07)
--- NOTE | 2023-12-09 11:07 | OP_ITS ---
DATE OF SERVICE: 12/09/2023 SURGEON: John Larry MD PREOPERATIVE DIAGNOSIS: Cough. POSTOPERATIVE DIAGNOSIS: PROCEDURE PERFORMED: Bronchoscopy with washings. ESTIMATED BLOOD LOSS: COMPLICATIONS: ANESTHESIA: MAC. ASSISTANTS: SPECIMENS: POSTOPERATIVE DIAGNOSES: Cough and tracheobronchial malacia. PROCEDURE IN DETAIL: After the patient was adequately sedated, a flexible digital bronchoscope was inserted via the oral airway to the level of the larynx. The vocal cords appeared to be normal in appearance and also the larynx. They did move symmetrically to the midline. No lesions on the cords themselves. Some microaspiration was appreciated even when sitting up. After instilling lidocaine, the bronchoscope then was passed to the level of the trachea. The initial proximal trachea was patent, normal in appearance. Subsequently, in the mid to lower trachea there was significant tracheomalacia. Excessive contraction of the posterior membrane, but also flattening of the cartilage. On exhalation, the obstruction was up to 85%. Induced coughing could not be achieved because the patient was under anesthesia, could not follow commands. Likely, when was able to cough or force exhalate, she would collapse even more. The trachea mucosa appeared normal. No other lesions noted. The bronchoscope was then navigated to the entire tracheobronchial tree that was examined up to the subsegmental level. The airways were normal in appearance. Normal mucosa. No evidence of any significant secretions. The patient did have some mucous plugs in the left upper lobe area, but mucoid in appearance. No endobronchial lesions appreciated. No foreign bodies appreciated. Bronchial washings were collected bilaterally. The patient did have some bronchomalacia as well, but not as significant, probably in the left lower lobe area. Washings were collected, sent for cell count differential in addition to gram stain and culture and also cytology. The bronchoscope was then removed. The total endoscopic time approximately 12 minutes. The patient tolerated the procedure well without any complications. INTERPRETATION: Successful bronchoscopy with washings demonstrating evidence of tracheobronchial malacia. John Larry MD MR/MODL / [id number] MTDD
[2023-12-09 11:29] LABS: Eosinophils Bronchial 17 %; Lymphocytes Bronchial 3 %; Neutrophils Bronchial 43 %; Other Bronchial 37 %; RBC Bronchial Washing 7 MM*3; WBC Bronchial Washing 207 MM*3
== END 2023-12-09 11:30 | disposition home or self-care (01) ==
PROVIDERS: PCP Internal Medicine; Visit Provider Hospitalist
PROC: 0BJ08ZZ Inspection of Tracheobronchial Tree, Via Natural or Artificial Opening Endoscopic (ICD-10-PCS; CPT 31622; principal; 2023-12-09 08:30)
DX: Q32.0 Congenital tracheomalacia (principal); R05.9 Cough, unspecified; E11.9 Type 2 diabetes mellitus without complications; I10 Essential (primary) hypertension; Z86.711 Personal history of pulmonary embolism; Z86.73 Personal history of transient ischemic attack (TIA), and cerebral infarction without residual deficits
CPT/HCPCS: 31622; 82947; 87070; 87205; 88112; 88305; 89051; J0171; J2250; J2371; J2704; J3010

== ENCOUNTER → 2023-12-09 06:15 | Outpatient (BNV) | payer OTHER, SELFPAY | PROVIDERS: PCP Internal Medicine; Visit Provider Hospitalist | DX: R05.9 Cough, unspecified (principal); J39.8 Other specified diseases of upper respiratory tract | CPT/HCPCS: 31623 ==

== ENCOUNTER 2023-12-15 09:24 | Outpatient (AMB) | payer OTHER, SELFPAY ==
--- NOTE | 2023-12-15 09:27 | A.OFFVIS_ITS ---
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 Patient reports that she had a fall about 4-5 months ago and has been experiencing pain since injury. States pain located in the medial aspect of ankle as well as swelling, numbness and tingling. No other tx. 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 She currently states she has constant worsening pain at her medial aspect of her ankle. She also c/o numbness, tingling and swelling in her ankle. She denies any previous injury and has not had treatment in the past. She has not been ambulating due to her pain and swelling. 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 Dizziness Headache Elevated lactic acid level Bronchitis Headache, migraine Asthma exacerbation Cough BABATUNDE (obstructive sleep apnea) Chronic pain syndrome Spondylosis of lumbar spine Low back pain Complex regional pain syndrome i of left lower limb Diabetic neuropathy Laryngotracheitis Essential hypertension Type 2 diabetes mellitus with unspecified complications Morbid obesity Anemia Back pain Pleuritic chest pain Fibromyalgia Hypothyroidism TIA (transient ischemic attack) Diet-controlled diabetes mellitus Depression Arthritis Sleep apnea Hypogammaglobulinemia Pulmonary embolism Surgical History History of esophagogastroduodenoscopy (EGD) Hx of colonoscopy S/P total abdominal hysterectomy History of cholecystectomy History of bariatric surgery Family History Mother Diabetes Stroke Family/Other Diabetes Father Diabetes Maternal Aunt Cancer Social History Household Members: None Housing: Apartment Are you a primary manager primary care to a significant other at home: No Do you presently have visiting nurse or other 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) Alcohol intake: never Patient Tobacco Use Status: Never used Tobacco e-Cigarette/Vaping Use: Never Used Second Hand Smoke Exposure: No Substance Use Type: Opiates Advance Directives Date on File: 05/23/21 service: No Current occupational status: unemployed and disabled Review of Systems Const All systems reviewed & are unremarkable except as noted in HPI and below Physical Exam Const General: cooperative, healthy appearing, comfortable, no acute distress, well developed and alert Orientation/consciousness: patient oriented x3 HEENT Head: Yes normal to inspection, Yes normocephalic and Yes atraumatic Eyes General: appearance normal, both eyes and all related structures Resp Effort & Inspection: normal respiratory effort and able to speak in complete sentences Cardio Rate: regular rate Peripheral pulses: Peripheral pulses 2+ throughout GI Palpation (GI): Soft to palpation Skin Lesions: no lesions Rashes: no rashes Neuro General: patient oriented x3 Extrem Other: Right ankle: Normal to inspection. She has pain in the soft tissue around lateral aspect of ankle which extends to the posterior aspect. She has significant tenderness around the Achilles tendon. Significant tenderness over the soft tissue on the lateral aspect of her ankle. No pain along the lateral or medial malleolus. Pes planus , bilaterally Results Reviewed Results Reviewed: X-rays of the right foot and ankle obtained in the office today show mild osteophyte formation around the medial malleolus with ossicle around the ____. Assessment & Plan Assessment & Plan (1) Peroneal tendinitis, right leg: Code(s): M76.71 - Peroneal tendinitis, right leg (2) Pes planus of both feet: Code(s): M21.41 - Flat foot [pes planus] (acquired), right foot; M21.42 - Flat foot [pes planus] (acquired), left foot Plan She was fit for a lace up ankle brace in the office today. She will begin a course of physical therapy to work on ROM, gentle strengthening, proprioceptive training and heel quad strengthening. She will increase activity as tolerated. If symptoms persist or worsens, patient will contact the office for a foot and ankle referral, otherwise follow-up as needed. Orders: Orders XR foot RT min 3V Today S92.351A - Displaced fracture of fifth metatarsal bone, right foot, initial encounter for closed fracture XR ankle RT min 3V Today M25.571 - Pain in right ankle and joints of right foot PT Evaluation and Treatment Today M21.41 - Flat foot [pes planus] (acquired), right foot, M21.42 - Flat foot [pes planus] (acquired), left foot, M76.71 - Peroneal tendinitis, right leg Patient Instructions: Scribed for Negin Sam PA-C, by J Carlos Reynolds medical staff manager, on 12/15/2023 at 10:00 AM EST. INegin PA-C, have personally reviewed and agree with the information entered by the scribe. Coding Level of Care Code New Pt Level 3 (17100) Diagnoses Peroneal tendinitis, right leg M76.71 Pes planus of both feet M21.41; M21.42
== END 2023-12-15 10:47 | disposition home or self-care (01) ==
PROVIDERS: PCP Internal Medicine; Visit Provider Physician Assistant
DX: M76.71 Peroneal tendinitis, right leg (principal); M21.41 Flat foot [pes planus] (acquired), right foot; M21.42 Flat foot [pes planus] (acquired), left foot
CPT/HCPCS: 99203

== ENCOUNTER 2023-12-15 09:59 | Outpatient (REF) | payer OTHER, SELFPAY ==
--- NOTE | ~2023-12-15 | XR_ITS ---
EXAMINATION: XR FOOT, RIGHT XR ANKLE, RIGHT CLINICAL INFORMATION: Displaced fracture fifth metatarsal COMPARISON: Right foot radiograph from 09/13/2022 TECHNIQUE: 3 views of the right ankle 2 views of the right foot FINDINGS: No acute visible fracture or dislocation. Ankle mortise is symmetric. Mild multi joint arthritic changes. Plantar calcaneal heel spur. Pes planus. Joint space alignment are maintained. Soft tissue swelling overlying the lateral malleolus. XR/XR ankle RT min 3V IMPRESSION: 1. No acute visible fracture or dislocation. 2. Mild multi joint arthritic changes. 3. Plantar calcaneal heel spur. 4. Pes planus. 5. Soft tissue swelling overlying the lateral malleolus.
--- NOTE | ~2023-12-15 | XR_ITS ---
EXAMINATION: XR FOOT, RIGHT XR ANKLE, RIGHT CLINICAL INFORMATION: Displaced fracture fifth metatarsal COMPARISON: Right foot radiograph from 09/13/2022 TECHNIQUE: 3 views of the right ankle 2 views of the right foot FINDINGS: No acute visible fracture or dislocation. Ankle mortise is symmetric. Mild multi joint arthritic changes. Plantar calcaneal heel spur. Pes planus. Joint space alignment are maintained. Soft tissue swelling overlying the lateral malleolus. XR/XR foot RT min 3V IMPRESSION: 1. No acute visible fracture or dislocation. 2. Mild multi joint arthritic changes. 3. Plantar calcaneal heel spur. 4. Pes planus. 5. Soft tissue swelling overlying the lateral malleolus.
== END 2023-12-15 10:00 | disposition home or self-care (01) ==
LOC: HO.HOSX 09:59
PROVIDERS: Visit Provider Physician Assistant
DX: S92.351A Displaced fracture of fifth metatarsal bone, right foot, initial encounter for closed fracture (principal); G89.29 Other chronic pain; M76.71 Peroneal tendinitis, right leg; M21.41 Flat foot [pes planus] (acquired), right foot; M21.42 Flat foot [pes planus] (acquired), left foot; W19.XXXA Unspecified fall, initial encounter; Y93.9 Activity, unspecified; Y92.9 Unspecified place or not applicable; Y99.9 Unspecified external cause status
CPT/HCPCS: 73610; 73630; 99202

== ENCOUNTER 2023-12-16 10:37 | Outpatient (REF) | payer OTHER, SELFPAY | END 2023-12-16 10:38 | disposition home or self-care (01) | LOC: HO.MDS 10:37 | PROVIDERS: Visit Provider Hospitalist | DX: D80.1 Nonfamilial hypogammaglobulinemia (principal) | CPT/HCPCS: 96365; 96366 ==

== ENCOUNTER 2023-12-24 10:05 | Outpatient (AMB) | payer OTHER, SELFPAY ==
[2023-12-24 10:46] VITALS: PULSE 85; O2SAT 97; BMI 35.5
--- NOTE | 2023-12-24 10:46 | MHC.OFFVIS ---
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 Recently the patient was complaining of persistent back pain and pleuritic chest pain. She started developing also worsening shortness of breath. She was evaluated at the emergency department where she had a CTA which will during for a pulmonary emboli. She was actually sent home from the ER and subsequently went back to the hospital the next day because of persistent symptoms. She has been kept on Eliquis. She still complaining of pleuritic discomfort. Explained to her that she will continue having discomfort while the clots will dissolve in sometimes it can take a few weeks. 12/07/2022 the patient is here for a hospital follow-up visit. She was in her usual state health until several days ago when she started developing worsening cough shortness of breath and chest discomfort. She went to the ER. There she was diagnosed with bronchitis. She was given some prednisone and also an antibiotic. She is feeling a little better although still having a significant cough. The cough is indeed croupy in nature. Likely tracheitis from an underlying virus. They did test for RSV flu a and COVID in does were negative. Although it is likely to be enterovirus. the patient is completing the prednisone taper and also completing the antibiotic. She has a significant cough and is affecting her sleep. Will go ahead and send her Tessalon Perles that appear to be effective for her. Also may benefit from dex to more phone. Will go ahead and send that to the pharmacy as well. Although she was given antibiotics. The fact that she has a croupy cough need to consider pertussis. Therefore I will send her azithromycin 500 mg for 5 days which will be a proper treatment for being cough. The patient has been vaccinated in the past but with her immunodeficiency and critical decrease it by her IgG is a chance that she may not mount a good response to vaccines. 04/02/2023 the patient is here for a pulmonary follow-up visit. Recently she went to the ER with worsening respiratory symptoms. She was diagnosed with an asthma exacerbation. Chest x-ray was clear. She was placed on prednisone taper. Clinically she is feeling a little better now. She is having some issues with her in a layers. She is not getting all the mouth the pharmacy. I am going to try to simplify her regimen by placing her on breaztri inhaler. She should also have a rescue inhaler available. In the meantime she continues with pain management. Now she has been getting some pain medication from her chronic back pain which appears to be alleviating her symptoms. In addition to that she is receiving IVIG infusions for significant hypogammaglobulinemia that was the result of her blood dyscrasia.. She continues uses CPAP at nighttime. The CPAP therapy continues to be affecting beneficial. She does use it for more than 4 hours a night. I will have her bring it in to the next visit to we can download the data. 11/22/2023 the patient is here for a pulmonary follow-up visit. She is still having hard time with the cough. The cough is persistent in uncomfortable for her. She has a hard time sleeping because of the cough. Typically the cough is nonproductive in nature. She has had multiple inhalers including breast tree that has been partially helpful. In addition to that she does have hypogammaglobulinemia and has been on IVIG infusions. She has missed once or twice. Her last IgG levels were actually low. Will go ahead and request additional blood work at this time. In addition to that she is found to be anemic. The patient did have a CT scan of the chest which we personally reviewed demonstrating no acute airspace disease. This was back in the summer of 2022. At this point based on the fact that she is still having a persistent cough not responding to the maximum respiratory therapy it will be beneficial to perform an airway survey with bronchoscopy and address the question of underlying tracheomalacia. The patient also sleeps CPAP. The CPAP therapy continues to be affecting beneficial. We need to download her machine. 12/24/2023 the patient is here for a pulmonary follow-up visit. The patient is status post bronchoscopy. During the bronchoscopy noted that she has significant tracheomalacia. Her collapsibility of the trachea approximately 85-90%. Primarily in the mid and distal part. Some central bronchial involvement but mainly the trachea was involved. No significant secretions noted. Her cultures are negative. No endobronchial lesions. At least we understand the cause of her significant cough. Her cough is moderate severity. She still struggles with it. The patient also has issues with immunodeficiency. She has a low IgG level. She was placed on IVIG therapy. Although, he has not been getting it because she does not like the way she feels after the infusions. Usually 24-48 hours after she feels dizzy headaches and fatigue. Will go ahead and start pretreating her specially since her IgG level was starting to fall significantly. She understands that she does get lower respiratory infections is going to worsen her cough is well she will have a hard time expectorating. She is already on CPAP at night the CPAP therapy continues to be affecting beneficial. She does try to use it 4 hours a night. She also has an Acapella valve that she can use for CPT to make sure she clear secretions from her lungs. The we did talk about potential surgical interventions but she understands that they are very involved in require a prolonged period of healing and recovery. At this point with her low IgG levels I do not recommend she undergo any surgeries. For now will continue to monitoring try to control her coughing minimize infections. If the patient has any worsening symptoms she call the office otherwise follow-up in 4 months. 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 Dizziness Headache Elevated lactic acid level Bronchitis Headache, migraine Asthma exacerbation Cough BABATUNDE (obstructive sleep apnea) Chronic pain syndrome Spondylosis of lumbar spine Low back pain Complex regional pain syndrome i of left lower limb Diabetic neuropathy Laryngotracheitis Essential hypertension Type 2 diabetes mellitus with unspecified complications Morbid obesity Anemia Back pain Pleuritic chest pain Fibromyalgia Hypothyroidism TIA (transient ischemic attack) Diet-controlled diabetes mellitus Depression Arthritis Sleep apnea Hypogammaglobulinemia Pulmonary embolism Surgical History History of esophagogastroduodenoscopy (EGD) Hx of colonoscopy S/P total abdominal hysterectomy History of cholecystectomy History of bariatric surgery Family History Mother Diabetes Stroke Family/Other Diabetes Father Diabetes Maternal Aunt Cancer Social History Household Members: None Housing: Apartment Are you a primary acute care nurse practitioner to a significant other at home: No Do 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 presently have 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) Alcohol intake: never Patient Tobacco Use Status: Never used Tobacco e-Cigarette/Vaping Use: Never Used Second Hand Smoke Exposure: No Substance Use Type: Opiates Advance Directives Date on File: 05/23/21 service: No Current occupational status: unemployed and disabled Review of Systems Const Reports difficulty sleeping ENT Denies change in voice, Denies lip swelling, Denies mouth pain, Reports nasal congestion, Reports nasal discharge and Denies tongue swelling Card Denies chest pain, Denies palpitations and Reports dyspnea on exertion Resp Denies change in phlegm color, Denies chest congestion, Reports cough, Reports dyspnea on exertion and Denies wheezing GI Denies abdominal pain Denies urinary frequency and Denies urinary incontinence Musc Reports back pain and Reports myalgias Neuro Denies Neuro-related abnormal movements Psych Denies no additional complaints Endo Denies palpitations Mathieu/Lymph Denies easy bleeding and Denies lymphadenopathy Aller/Immun Denies lip swelling, Denies tongue swelling and Denies wheezing Physical Exam Vital Signs: Last Vital Signs Pulse 85 12/24/23 10:46 Pulse Ox 97 12/24/23 10:46 Oxygen Delivery Method Room Air 12/24/23 10:46 BMI result Body Mass Index 35.5 Const General: cooperative Orientation/consciousness: patient oriented x3 HEENT Head: Yes normocephalic Eyes General: appearance normal, both eyes and all related structures Neck Neck: Yes supple Chest Chest palpation & inspection: normal inspection of the chest and tenderness Resp Effort & Inspection: normal respiratory effort and Actively coughing (croup) Cardio Rate: regular rate Rhythm: regular rhythm Heart sounds: S1 normal heart sound present and S2 normal heart sound present GI Auscultation: normal bowel sounds Neuro General: patient oriented x3 Extrem General: Yes no clubbing, cyanosis or edema Assessment & Plan Assessment & Plan (1) Chronic bronchitis: Code(s): J42 - Unspecified chronic bronchitis Qualifiers: Chronic bronchitis type: simple Qualified Code(s): J41.0 - Simple chronic bronchitis (2) Asthma: Code(s): J45.909 - Unspecified asthma, uncomplicated Qualifiers: Asthma complication type: uncomplicated Asthma persistence: persistent Asthma severity: moderate Qualified Code(s): J45.40 - Moderate persistent asthma, uncomplicated (3) Chronic cough: Code(s): R05 - Cough (4) Tracheomalacia: Code(s): J39.8 - Other specified diseases of upper respiratory tract Plan cough suppresant Benzonates as needed for cough IVIG, will pretreat continue Breztri RENE as needed continue singulair CPT with acapella valve Consider surgical or IP eval once IgG levels are better F/U 4 months Medications: New chlorpheniramine maleate 4 mg PO Q6H 30 days PRN 90 tabs 6RF itching Coding Level of Care Code Est Pt Level 4 (26079) Diagnoses Chronic bronchitis J41.0 Chronic bronchitis type: simple Moderate persistent asthma without complication J45.40 Asthma complication type: uncomplicated Asthma persistence: persistent Asthma severity: moderate Chronic cough R05 Tracheomalacia J39.8 Time Spent (min) 17
== END 2023-12-24 11:18 | disposition home or self-care (01) ==
PROVIDERS: PCP Internal Medicine; Visit Provider Hospitalist
DX: J41.0 Simple chronic bronchitis (principal); J45.40 Moderate persistent asthma, uncomplicated; J39.8 Other specified diseases of upper respiratory tract
CPT/HCPCS: 99214

== ENCOUNTER → 2023-12-24 10:05 | Outpatient (BNVA) | payer OTHER, SELFPAY | PROVIDERS: PCP Internal Medicine; Visit Provider Hospitalist | DX: J41.0 Simple chronic bronchitis (principal); J45.40 Moderate persistent asthma, uncomplicated; J39.8 Other specified diseases of upper respiratory tract; R05.3 Chronic cough | CPT/HCPCS: 99212 ==

== ENCOUNTER 2024-01-12 09:14 | Outpatient (AMB) | payer OTHER, SELFPAY ==
[2024-01-12 10:21] VITALS: BP 106/70; PULSE 88; RESP 16; O2SAT 96; BMI 36.4
--- NOTE | 2024-01-12 10:21 | MHC.OFFVIS ---
Intake Vital Signs 01/12/24 10:21 Height 4 ft 11 in Weight 180 lb BMI 36.4 BP 106/70 Blood Pressure Location Lt brachial Position Sitting Respiration 16 Pulse 88 Pulse Source Pulse Oximeter Pulse Oximetry (%) 96 Oxygen Delivery Method Room Air Intake Visit Reasons: PILL COUNT/random UDS Allergies No Known Allergies Allergy (Verified 12/24/23 10:47) HPI HPI Comments History of Present Illness Details Maye is a very pleasant 54 year old female who presents to the office today, accompanied by her granddaughter, for follow up chronic pain and chronic opioid therapy management. Patient is prescribed oxycodone 5mg tabs, take one tablet three times daily. Patient arrived today with the expectation of having 27 pills, she presented 27 pills which were counted in the presence of two staff members and returned to the patient in the original prescription bottle. This demonstrates responsible attitude toward patient's opioid medications. Pain is reported today as 5/10 and last dose of pain medication was taken at 9:00 this morning. She denies side effects including nausea, constipation, somnolence, weakness, chest pain or syncope. Chronic pain is adequately managed on current opioid regimen with improvement in mobility and overall functioning. Patient continues with pain in her knee, she has seen Orthopedics and is awaiting appointment with another orthopedic doctor for 2nd opinion. Previously: She was suspended for 6 months because UDS demonstrated tramadol in her urine. She was admitted slightly earlier on the request of her PCP - she developed renal insufficiency and she was taking large doses of NSAIDs to help her pain. Her risk of Opioid was low.? When she come back from suspension her opioid risk will become moderate. 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 Dizziness Headache Elevated lactic acid level Bronchitis Headache, migraine Asthma exacerbation Cough BABATUNDE (obstructive sleep apnea) Chronic pain syndrome Spondylosis of lumbar spine Low back pain Complex regional pain syndrome i of left lower limb Diabetic neuropathy Laryngotracheitis Essential hypertension Type 2 diabetes mellitus with unspecified complications Morbid obesity Anemia Back pain Pleuritic chest pain Fibromyalgia Hypothyroidism TIA (transient ischemic attack) Diet-controlled diabetes mellitus Depression Arthritis Sleep apnea Hypogammaglobulinemia Pulmonary embolism Surgical History History of esophagogastroduodenoscopy (EGD) Hx of colonoscopy S/P total abdominal hysterectomy History of cholecystectomy History of bariatric surgery Family History Mother Diabetes Stroke Family/Other Diabetes Father Diabetes Maternal Aunt Cancer Social History Household Members: None Housing: Apartment Are you a primary primary health care nurse to a significant other at home: No Do you presently have 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) Alcohol intake: never Patient Tobacco Use Status: Never used Tobacco e-Cigarette/Vaping Use: Never Used Second Hand Smoke Exposure: No Substance Use Type: Opiates Advance Directives Date on File: 05/23/21 service: No Current occupational status: unemployed and disabled Review of Systems Const All systems reviewed & are unremarkable except as noted in HPI and below Physical Exam Vital Signs: Last Vital Signs Pulse 88 01/12/24 10:21 Resp 16 01/12/24 10:21 BP 106/70 01/12/24 10:21 Pulse Ox 96 01/12/24 10:21 Oxygen Delivery Method Room Air 01/12/24 10:21 BMI result Body Mass Index 36.4 General: awake, alert, oriented. Answers questions appropriately. Fully engaged in examination. Skin: warm, dry, intact. HEENT: Normocephalic. Hearing intact. Cardiac: External chest normal in appearance. Respiratory: No cough, audible wheezing or stridor. Abdomen: without gross distension. MS: No obvious swelling or deformities. Able to transition from sit to stand unassisted. Ambulates with use of a cane Neurological: Oriented to person, place, time and situation. Thought process intact. Psychiatric: Appropriate mood and affect. Good judgment and insight. Results Reviewed Results Reviewed: 11/12/2021EXAMINATION: THORACIC AND LUMBAR SPINE X-RAY FINDINGS: Thoracic spine: Exam is limited due to light film technique and patient body habitus. There is mild curvature of the midthoracic spine to the right. Bone alignment is otherwise normal. No fracture or dislocation is seen. There is mild multilevel degenerative disc disease of the midthoracic spine. Paraspinal soft tissues are unremarkable. Lumbar spine: Bone alignment is normal. No fracture or dislocation is seen. Disc spaces are normal. There is lower lumbar spine facet arthritis.? XR/XR lumbar spine 2-3V IMPRESSION: No fracture or dislocation seen. Degenerative changes. Evaluation of the thoracic spine is limited due to patient body habitus.? 03/03/2021 MR LUMBAR SPINE WITHOUT CONTRAST FINDINGS: Coronal Alignment:?Normal. Sagittal Alignment:?2 mm of grade 1 spondylolisthesis at L5-S1 has developed since the previous exam. Trace retrolisthesis at L3-L4 is stable. Lumbosacral Junction: ?Normal. Vertebral Bodies: Normal height. Bone Marrow:? Large benign vertebral hemangioma in the L4 vertebral body on the left is stable. There is an 8 mm probable atypical benign hemangioma in the L3 vertebral body. No suspicious marrow replacing process or bone marrow edema. Conus Medullaris:?Terminates at L1.?Morphology and signal is normal. Intradural Nerve Roots: Within normal limits. 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 Maximum diameter is 4 mm, unchanged. SPINAL LEVELS: L5-S1: Mild loss of disc space height is noted with disc desiccation with minimal progression of disc space height loss from previous study, with development of slight anterolisthesis. There is marked facet arthropathy on the right progressed from previous study and moderate facet arthropathy on the left also slightly progressed. Right-sided facet joint effusion noted on current exam with a small synovial cyst along its posterior margin with subchondral marrow edema on both sides of the facet joint consistent with facet inflammatory changes. There is anterior and right paravertebral spondylosis and there is mild disc bulging with a superimposed right-sided foraminal disc herniation progressed from previous exam. There is mild right-sided neural foraminal stenosis without neural impingement and there is no significant canal stenosis. L4-L5: Disc space height and signal are well maintained. No significant disc bulge or herniation and no significant spondylosis. Mild facet arthrosis bilaterally noted without significant canal or neural foraminal stenosis. L3-L4: Mild loss of disc space height is noted with mild disc desiccation and slight retrolisthesis, stable in appearance. No significant disc bulge or herniation. No significant canal or neural foraminal stenosis. Minor spondylosis is unchanged. L2-L3: Disc space height and signal are well maintained without disc bulge or herniation and no significant facet arthrosis, canal or neural foraminal stenosis, stable in appearance. L1-L2: Disc space height and signal are well maintained without disc bulge or herniation and no significant spondylosis. No significant facet arthrosis, canal or neural foraminal stenosis. Paraspinal/Retroperitoneal: The paravertebral soft tissues appear unremarkable. There is a 2.9 cm probable parapelvic cyst in the mid left kidney increased in size from previous exam. A 1 cm cortical cyst lateral cortex upper pole of right kidney, unchanged. Partially imaged exophytic cortical cyst lateral cortex mid left kidney, increased in size. MR/MR lumbar spine wo con IMPRESSION: 1. Progression of facet arthropathy at L5-S1 right more the left with facet inflammatory changes on the right on the current study, with development of grade 1 spondylolisthesis with progression of disc degenerative change. Development of right foraminal disc herniation and minimal disc bulging with mild right-sided foraminal stenosis since prior exam. ? 2. Mild bilateral facet arthropathy at L4-L5, stable in appearance. ? 3. Thickened, fatty filum, consistent with a benign fibrolipoma of the filum terminale, unchanged. ? 4. Multiple bilateral renal cysts, some of which have increased in size on the left, probably unchanged from previous CT abdomen of 03/16/2019. Assessment & Plan Assessment & Plan (1) Spondylosis of lumbar joint: Code(s): M47.816 - Spondylosis without myelopathy or radiculopathy, lumbar region (2) Knee pain, left: Code(s): M25.562 - Pain in left knee Qualifiers: Chronicity: chronic Qualified Code(s): M25.562 - Pain in left knee; G89.29 - Other chronic pain (3) Low back pain: Code(s): M54.5 - Low back pain Qualifiers: Chronicity: chronic Back pain laterality: bilateral Sciatica presence: without sciatica Qualified Code(s): M54.50 - Low back pain, unspecified; G89.29 - Other chronic pain (4) Disc degeneration, lumbosacral: Code(s): M51.37 - Other intervertebral disc degeneration, lumbosacral region (5) Spondylosis of cervical spine: Code(s): M47.812 - Spondylosis without myelopathy or radiculopathy, cervical region (6) Osteoporosis: Code(s): M81.0 - Age-related osteoporosis without current pathological fracture (7) Sacroiliac joint dysfunction of left side: Code(s): M53.3 - Sacrococcygeal disorders, not elsewhere classified (8) Left hip pain: Code(s): M25.552 - Pain in left hip Plan Maye is a very pleasant 54 year old female who presented to the office today for follow up chronic pain and chronic opioid medication management. Masspat was reviewed and without concerns. No obvious signs of diversion, abuse or misuse of the opioid medications. Will send in prescription for oxycodone 5mg TID with an advanced date of 01/21/24 Follow up with ortho as planned for knee pain All questions and concerns have been answered and patient agrees with the plan. Follow up in 1 month, sooner if needed. Orders: Orders XR lumbar spine 4V min Today M47.816 - Spondylosis without myelopathy or radiculopathy, lumbar region Medications: Refilled oxycodone Partial Fill upon patient request. 5 mg PO TID PRN 90 tabs 0RF pain 30 days Coding Level of Care Code Est Pt Level 4 (06152) Diagnoses Spondylosis of lumbar joint M47.816 Chronic pain of left knee M25.562; G89.29 Chronicity: chronic Chronic bilateral low back pain without sciatica M54.50; G89.29 Chronicity: chronic Back pain laterality: bilateral Sciatica presence: without sciatica Disc degeneration, lumbosacral M51.37 Spondylosis of cervical spine M47.812 Osteoporosis M81.0 Sacroiliac joint dysfunction of left side M53.3 Left hip pain M25.552
== END 2024-01-12 10:47 | disposition home or self-care (01) ==
PROVIDERS: PCP Internal Medicine; Visit Provider Registered Nurse Emergency
DX: M47.816 Spondylosis without myelopathy or radiculopathy, lumbar region (principal); M25.562 Pain in left knee; G89.29 Other chronic pain; M54.50 Low back pain, unspecified; M51.37 Other intervertebral disc degeneration, lumbosacral region; M47.812 Spondylosis without myelopathy or radiculopathy, cervical region; M81.0 Age-related osteoporosis without current pathological fracture; M53.3 Sacrococcygeal disorders, not elsewhere classified; M25.552 Pain in left hip
CPT/HCPCS: 99214

== ENCOUNTER → 2024-01-12 09:14 | Outpatient (BNVA) | payer OTHER, SELFPAY | PROVIDERS: PCP Internal Medicine; Visit Provider Registered Nurse Emergency | DX: M47.816 Spondylosis without myelopathy or radiculopathy, lumbar region (principal); G89.29 Other chronic pain; M25.562 Pain in left knee; M54.50 Low back pain, unspecified; M51.37 Other intervertebral disc degeneration, lumbosacral region; M47.812 Spondylosis without myelopathy or radiculopathy, cervical region; M81.0 Age-related osteoporosis without current pathological fracture; M53.3 Sacrococcygeal disorders, not elsewhere classified; M25.552 Pain in left hip | CPT/HCPCS: 99212 ==

== ENCOUNTER 2024-01-14 09:29 | Outpatient (REF) | payer OTHER, SELFPAY ==
[2024-01-14] VITALS (7 sets, daily range): BP systolic 101–148; BP diastolic 55–72; PULSE 71–88; RESP 16–18; TEMP 37.1; O2SAT 96
[2024-01-14] MEDS: diphenhydrAMINE HCL 25 MG CAPSULE PO (09:52)
[2024-01-14] MEDS: Acetaminophen 325 MG TABLET 650 MG PO (09:52)
== END 2024-01-14 09:30 | disposition home or self-care (01) ==
LOC: HO.MDS 09:29
PROVIDERS: Visit Provider Hospitalist
DX: D80.1 Nonfamilial hypogammaglobulinemia (principal)
CPT/HCPCS: 96374

== ENCOUNTER 2024-01-26 09:20 | Outpatient (RCR) | payer OTHER, SELFPAY ==
[2020-08-02 14:26] VITALS: BP 136/63; PULSE 85; RESP 18; TEMP 36.3; O2SAT 98
[2020-08-02 14:27] LABS: MANUAL DIFF FLAG NO
[2020-08-02 14:32] VITALS: BMI 38.9
[2020-08-02 14:39] LABS: Basophils Percent Auto 0.5 % (0-2); Eosinophils Absolute Auto 0.2 X10*3/uL (0.0-0.4); Eosinophils Percent Auto 2.1 % (0-4); Hematocrit 36.7 % (37-47); Hemoglobin 10.9 g/dl (12.0-16.0); Imm Gran Abs Auto 0.05 X10*3/uL (0.00-0.03); Imm Gran Pct Auto 0.6 % (0.0-0.4); Lymphocytes Absolute Auto 1.9 X10*3/uL (1.2-4.9); Lymphocytes Percent Auto 22.7 % (20-40); Mean Corpuscular HGB Conc 29.7 g/dl (31.0-35.0); Mean Corpuscular Hemoglobin 25.6 pg (27.0-33.0); Mean Corpuscular Volume 86.2 fL (80-98); Mean Platelet Volume 8.3 fL (9.4-12.3); Monocytes Absolute Auto 0.5 X10*3/uL (0.1-1.2); Monocytes Percent Auto 5.9 % (2-11); Neutrophils Absolute Auto 5.8 X10*3/uL (2.0-8.3); Neutrophils Percent Auto 68.2 % (45-73); Platelet Count 352 X10*3/uL (160-400); Red Blood Count 4.26 X10*6/uL (4.20-5.50); Red Cell Distribution Width 16.5 % (11.0-16.0); White Blood Count 8.5 X10*3/uL (4.8-10.8)
[2020-08-02 14:53] LABS: D Dimer 295 NG/ML
[2020-08-02 14:58] LABS: Alanine Aminotransferase 24 U/L (0-31); Alkaline Phosphatase 63 U/L (39-117); Anion Gap 11 (12-20); Aspartate Amino Transferase 20 U/L (5-31); Bilirubin Total 0.2 mg/dL (0.0-1.0); Blood Urea Nitrogen 18 mg/dL (9-16); Calcium 9.3 mg/dL (8.4-10.2); Carbon Dioxide 27 mmol/L (22-29); Chloride 106 mmol/L (96-108); Creatinine Clr Calc Pharmacy 52.4; Estimated Glomerular Filt Rate 46; Glucose Random 98 mg/dL (60-115); Potassium 4.3 mmol/l (3.3-5.1); Sodium 140 mmol/L (135-145); Total Protein 6.1 g/dL (6.5-8.0)
--- NOTE | 2020-08-02 15:21 | MHC.HEMONC ---
Exam with Dr. Rios, labs obtained and reviewed. F/u in 3 months. Saddle St[employer] Machine Operator used for translation
--- NOTE | 2020-08-02 17:32 | PM.HEMONCPN ---
Medical Summary - Medical Summary Chief complaint: Follow-up for: 1. History of PE. 2. History of hypogammaglobulinemia. Medical Summary: DIAGNOSIS: Hypogammaglobulinemia. History of PE. Interval History Interval history: This is a pleasant 50-year-old lady here for a follow-up visit. She tells me she does not feel too well. She has body aches. She feels washed out. Her chest hurts. Energy level is rather low. She has not really been eating too well. however that is nothing new. She has been diagnosed with severe asthma and seasonal allergic rhinitis as well as sleep apnea syndrome. She has had several courses of steroids and antibiotics. Most recently she was on azithromycin. She has had ongoing symptoms of cough and shortness of breath. She has had an extensive evaluation: A bronchoscopy was done which was non revealing. CT scan of the chest from June 14 revealed: Suboptimal exam but no large central pulmonary emboli are seen. No pneumonia or pulmonary nodules are seen. Review of Systems - ENT Reports system reviewed and no additional complaints, except as documented - Cardiovascular Comments: no chest pain or trouble breathing - Gastrointestinal Comments: denies abdominal pain nausea vomiting heartburn indigestion. Bowels are working without any gross blood in it. Appetite is fair. Weight is stable. Home Medications and Allergies Home Medications Medication Instructions Recorded Confirmed Type albuterol sulfate 0.63 mg INHALATION Q4-6H PRN 08/02/20 08/02/20 History cholecalciferol (vitamin D3) 10 mcg PO DAILY 08/02/20 08/02/20 History [Vitamin D3] cyanocobalamin (vitamin B-12) 1 tab SUBLINGUAL DAILY 08/02/20 08/02/20 History [Vitamin B-12] escitalopram oxalate 10 mg PO DAILY 08/02/20 08/02/20 History hydroxyzine HCl [Atarax] 50 mg PO BID 08/02/20 08/02/20 History lorazepam 0.5 mg PO DAILY PRN 08/02/20 08/02/20 History montelukast 1 tab PO DAILY 08/02/20 08/02/20 History prednisone 1 tab PO BID 08/02/20 08/02/20 History quetiapine [Seroquel] 300 mg PO DAILY 08/02/20 08/02/20 History sucralfate 1 g PO BID 08/02/20 08/02/20 History zolpidem [Ambien] 10 mg PO BEDTIME PRN 08/02/20 08/02/20 History Allergies Allergy/AdvReac Type Severity Reaction Status Date / Time amitriptyline Allergy Unknown Verified 03/31/16 00:00 diphenhydramine [Benadryl] Allergy Unknown Verified 03/31/16 00:00 levofloxacin [From LEVAQUIN] Allergy Unknown RASH Unverified 07/18/20 16:55 propranolol [Inderal LA] Allergy Unknown Verified 03/31/16 00:00 topiramate [Topamax] Allergy Unknown Verified 03/31/16 00:00 Exam Vital signs: Vital Signs Temp 97.3 F 08/02/20 14:26 Pulse 85 08/02/20 14:26 Resp 18 08/02/20 14:26 BP 136/63 08/02/20 14:26 Pulse Ox 98 08/02/20 14:26 Intake & Output 08/01/20 08/02/20 08/02/20 18:59 06:59 18:59 Other: Weight 87.6 kg Weight 87.6 kg Body Mass Index 38.9 - Constitutional Present: no acute distress - Routine HEENT Exam Head: Present: normal inspection ENT: Present: mucous membranes moist - Routine Neck Exam Present: full ROM, normal inspection - Routine Respiratory Exam Present: CTAB - Routine Cardiovascular Exam Cardiovascular: Present: RRR, S1, S2 - Routine Abdominal Exam Present: soft, nontender - Routine Rectal Exam Patient deferred: digital exam Digital: Present: normal inspection - Routine Extremities Exam Present: normal capillary refill, nontender Data - Labs CBC & Chem 7: 08/02/20 14:21 08/02/20 14:22 Labs: Laboratory Results - last 24 hr 08/02/20 08/02/20 08/02/20 14:21 14:22 14:22 WBC 8.5 RBC 4.26 Hgb 10.9 L Hct 36.7 L MCV 86.2 MCH 25.6 L MCHC 29.7 L RDW 16.5 H Plt Count 352 MPV 8.3 L Immature Gran % (Auto) 0.6 H Neut % (Auto) 68.2 Lymph % (Auto) 22.7 [place] % (Auto) 5.9 Eos % (Auto) 2.1 Baso % (Auto) 0.5 Neut # (Auto) 5.8 Lymph # (Auto) 1.9 [place] # (Auto) 0.5 Eos # (Auto) 0.2 Baso # (Auto) 0.0 Abs Immat Gran (auto) 0.05 H Absolute Nucleated RBC 0.000 Nucleated RBC % (auto) 0.0 D-Dimer 295 Sodium 140 Potassium 4.3 Chloride 106 Carbon Dioxide 27 Anion Gap 11 L BUN 18 H Creatinine 1.22 Estim Creat Clear Calc 52.4 Estimated GFR 46 Random Glucose 98 Calcium 9.3 Total Bilirubin 0.2 AST 20 ALT 24 Alkaline Phosphatase 63 Total Protein 6.1 L Albumin 4.0 Progress Note: A/P (1) Pulmonary embolism Status: Acute (2) Hypogammaglobulinemia Status: Acute Assessment and plan: This is a pleasant 50-year-old lady with history of PE. She has pulmonary symptoms. She has asthma that is difficult to control. She has repeated bouts of bronchitis. She has intermittent diarrhea. She is under a GI. Her gastric emptying study was okay. She had an upper endoscopy colonoscopy recently, which were relatively benign. Concern is for IBS-D. She had IgG subsets done: IgG1 222 IgG2 61 IgG3 9 IgG4 8.2 IgG TOTAL 342. 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 Concern would be for common variable immunodeficiency. Verses acquired immunodeficiency syndrome. I checked: SIEP: IgG 320 L IgA 92 IgM 45 L IMFIXS INTERP No abnormal bands are present on immunofixation. IgG subsets: IgG1 204 IgG2 56 IgG3 6 IgG4 2.8 IgG TOTAL 318 CD 4/ CD 8 ratio: TOTAL LYMPH 1862 CD3 1452 %CD3 78 CD4 (HELPER) 920 CD4% 49 CD8 (SUPRESSOR) 517 CD8% 28 CD4/CD8 RATIO 1.78 PLAN: I will arrange for IVIG, monthly. She will return in 1 month for a follow-up visit. - Time Spent With Patient Total time spent is greater than 50% in coordination of care (as documented) at patient's floor/unit and/or counseling patient: 15 - 24 minutes
[2020-08-05 11:56] LABS: IgA 92 mg/dL (47-310); IgG 348 mg/dL (600-1640); IgM 42 mg/dL (50-300)
--- NOTE | 2020-10-28 16:08 | MHC.HEMONC ---
Ferrelecit scheduled for 11/06/20 for 1100. Patient aware.
[2020-10-31 14:05] LABS: MANUAL DIFF FLAG NO
[2020-10-31 14:10] VITALS: BP 122/73; PULSE 88; RESP 18; TEMP 36.7; O2SAT 98; BMI 40.8
[2020-10-31 14:12] LABS: Basophils Percent Auto 0.3 % (0-2); Eosinophils Absolute Auto 0.3 X10*3/uL (0.0-0.4); Eosinophils Percent Auto 3.7 % (0-4); Hematocrit 32.3 % (37-47); Hemoglobin 9.4 g/dl (12.0-16.0); Imm Gran Abs Auto 0.02 X10*3/uL (0.00-0.03); Imm Gran Pct Auto 0.3 % (0.0-0.4); Lymphocytes Absolute Auto 1.6 X10*3/uL (1.2-4.9); Lymphocytes Percent Auto 23.8 % (20-40); Mean Corpuscular HGB Conc 29.1 g/dl (31.0-35.0); Mean Corpuscular Hemoglobin 22.6 pg (27.0-33.0); Mean Corpuscular Volume 77.6 fL (80-98); Mean Platelet Volume 8.7 fL (9.4-12.3); Monocytes Absolute Auto 0.6 X10*3/uL (0.1-1.2); Monocytes Percent Auto 8.5 % (2-11); Neutrophils Absolute Auto 4.3 X10*3/uL (2.0-8.3); Neutrophils Percent Auto 63.4 % (45-73); Platelet Count 337 X10*3/uL (160-400); Red Blood Count 4.16 X10*6/uL (4.20-5.50); Red Cell Distribution Width 17.7 % (11.0-16.0); White Blood Count 6.8 X10*3/uL (4.8-10.8)
--- NOTE | 2020-10-31 14:29 | P.PNHO_ITS ---
Medical Summary - Medical Summary Date of Service: 11/03/20 Chief complaint: Follow-up for: 1. PE. 2. Hypogammaglobulinemia. 3. Anemia. Medical Summary: DIAGNOSIS: Hypogammaglobulinemia. History of PE. Anemia. Interval History Interval history: This is a pleasant 50-year-old lady here for a follow-up visit. She tells me she does not feel too well. She is rather tired. She feels sleepy a lot. She has body aches. She feels washed out. She gets headaches. Feels dizzy. She remains afebrile. Her chest hurts. She has had ongoing symptoms of cough and shortness of breath. She still has been getting bronchitis episodes. She finished antibiotics about a week ago. She denies abdominal pain nausea vomiting nor heartburn. She does get diarrhea off and on. She has not really been eating too well. However that is nothing new. She has gained weight. Previous history: She has been diagnosed with severe asthma and seasonal allergic rhinitis as well as sleep apnea syndrome. She has had several courses of steroids and antibiotics. Most recently she was on azithromycin. She has had an extensive evaluation: A bronchoscopy was done which was non revealing. CT scan of the chest from June 14 revealed: Suboptimal exam but no large central pulmonary emboli are seen. No pneumonia or pulmonary nodules are seen. Review of Systems - Constitutional Reports no additional constitutional complaints, Reports fatigue, Denies fever(s), Reports lack of energy, Reports malaise, Reports weakness, Reports weight gain, Reports weight loss - Eyes Reports no additional eye complaints, Denies blurry vision - ENT Reports no additional ear, nose, mouth, and throat complaints - Cardiovascular Reports no additional cardiovascular complaints, Reports chest pain with activity - Respiratory Reports no additional respiratory complaints, Reports chest congestion - Gastrointestinal Reports no additional gastrointestinal complaints, Reports change in bowel habits, Reports diarrhea, Reports nausea - Genitourinary Reports no additional female genitourinary complaints, Denies abnormal vaginal bleeding - Musculoskeletal Reports no additional musculoskeletal complaints, Denies back pain - Integumentary/Breasts Skin/Breast: Reports no additional skin complaints - Neurologic Reports no additional neurologic complaints - Psychiatric Reports no additional psychiatric complaints, Reports abnormal sleep pattern, Reports anxiety - Endocrine Reports no additional endocrine complaints, Denies cold intolerance - Hematologic/Lymphatic Reports no additional hematologic/lymphatic complaints, Denies easy bleeding - Allergic/Immunologic Reports no additional allergic/immunologic complaints, Reports GI upset with certain foods PMFSH Medical History: Medical History (Last Updated 10/17/20 @ 15:43 by John Larry MD) Anemia Arthritis Asthma Back pain Depression Diet-controlled diabetes mellitus Fibromyalgia Hypogammaglobulinemia Hypothyroidism Migraines Pleuritic chest pain Pulmonary embolism Sleep apnea TIA (transient ischemic attack) Functional capacity: independent ambulation Patient : No Surgical History: Surgical History (Last Reviewed 10/13/20 @ 11:21 by MEGA Leahy) History of bariatric surgery History of cholecystectomy S/P total abdominal hysterectomy Home Medications and Allergies Home Medications Medication Instructions Recorded Confirmed Type cyanocobalamin (vitamin B-12) 2,500 mcg SUBLINGUAL DAILY 08/02/20 08/19/20 History [Vitamin B-12] montelukast 10 mg PO DAILY 08/02/20 08/19/20 History prednisone 10 mg PO DAILY 08/02/20 10/31/20 History quetiapine [Seroquel] 300 mg PO DAILY 08/02/20 08/19/20 History zolpidem [Ambien] 10 mg PO BEDTIME PRN 08/02/20 08/19/20 History cholecalciferol (vitamin D3) 25 mcg PO DAILY 08/15/20 10/31/20 History [Vitamin D3] hydrocodone-chlorpheniramine 5 ml PO Q12H 08/15/20 10/31/20 History Allergies Allergy/AdvReac Type Severity Reaction Status Date / Time No Known Allergies Allergy Verified 10/17/20 14:39 Exam Vital signs: Vital Signs Temp 98.1 F 10/31/20 14:10 Pulse 88 10/31/20 14:10 Resp 18 10/31/20 14:10 BP 122/73 10/31/20 14:10 Pulse Ox 98 10/31/20 14:10 Intake & Output 10/30/20 10/31/20 10/31/20 18:59 06:59 18:59 Other: Weight 91.6 kg Weight 91.6 kg Body Mass Index 40.8 - Constitutional Present: no acute distress - Routine HEENT Exam Head: Present: normal inspection Eye: Present: normal appearance ENT: Present: mucous membranes moist - Routine Neck Exam Present: full ROM, normal inspection - Routine Respiratory Exam Present: CTAB - Routine Cardiovascular Exam Cardiovascular: Present: RRR, S1, S2 - Routine Abdominal Exam Present: soft, nontender - Routine Rectal Exam Patient deferred: digital exam - Routine Extremities Exam Present: normal capillary refill, nontender - Routine Back/Spine/Pelvis Exam Back/Spine: Present: full ROM - Routine Skin Exam Present: intact - Routine Neurological Exam Present: alert, oriented X3 - Routine Psychiatric Exam Present: normal affect Data - Labs CBC & Chem 7: 10/31/20 13:48 10/31/20 13:48 Labs: 08/02/20 14:21 Complete Blood Count Auto Diff Routine 08/02/20 14:22 Comprehensive Met. Panel Routine D Dimer Routine Immunofixation Pnl, Serum Routine 10/31/20 13:48 Complete Blood Count Auto Diff Routine Laboratory Last Values WBC 6.8 X10*3/uL (4.8-10.8) 10/31/20 13:48 RBC 4.16 X10*6/uL (4.20-5.50) L 10/31/20 13:48 Hgb 9.4 g/dl (12.0-16.0) L 10/31/20 13:48 Hct 32.3 % (37-47) L 10/31/20 13:48 MCV 77.6 fL (80-98) L 10/31/20 13:48 MCH 22.6 pg (27.0-33.0) L 10/31/20 13:48 MCHC 29.1 g/dl (31.0-35.0) L 10/31/20 13:48 RDW 17.7 % (11.0-16.0) H 10/31/20 13:48 Plt Count 337 X10*3/uL (160-400) 10/31/20 13:48 MPV 8.7 fL (9.4-12.3) L 10/31/20 13:48 Immature Gran % (Auto) 0.3 % (0.0-0.4) 10/31/20 13:48 Neut % (Auto) 63.4 % (45-73) 10/31/20 13:48 Lymph % (Auto) 23.8 % (20-40) 10/31/20 13:48 Bartholomew % (Auto) 8.5 % (2-11) 10/31/20 13:48 Eos % (Auto) 3.7 % (0-4) 10/31/20 13:48 Baso % (Auto) 0.3 % (0-2) 10/31/20 13:48 Neut # (Auto) 5.8 X10*3/uL (2.0-8.3) 08/02/20 14:21 Lymph # (Auto) 1.6 X10*3/uL (1.2-4.9) 10/31/20 13:48 Bartholomew # (Auto) 0.6 X10*3/uL (0.1-1.2) 10/31/20 13:48 Eos # (Auto) 0.3 X10*3/uL (0.0-0.4) 10/31/20 13:48 Baso # (Auto) 0.0 X10*3/uL (0.0-0.2) 10/31/20 13:48 Abs Immat Gran (auto) 0.02 X10*3/uL (0.00-0.03) 10/31/20 13:48 Absolute Neuts (auto) 4.3 X10*3/uL (2.0-8.3) 10/31/20 13:48 Absolute Nucleated RBC 0.000 X10*3/uL (0.0-0.012) 10/31/20 13:48 Nucleated RBC % (auto) 0.0 /100WBC (0.0-0.2) 10/31/20 13:48 D-Dimer 295 NG/ML 08/02/20 14:22 Sodium 140 mmol/L (135-145) 08/02/20 14:22 Potassium 4.3 mmol/l (3.3-5.1) 08/02/20 14:22 Chloride 106 mmol/L (96-108) 08/02/20 14:22 Carbon Dioxide 27 mmol/L (22-29) 08/02/20 14:22 Anion Gap 11 (12-20) L 08/02/20 14:22 BUN 18 mg/dL (9-16) H 08/02/20 14:22 Creatinine 1.22 mg/dL (0.5-1.4) 08/02/20 14:22 Estim Creat Clear Calc 52.4 08/02/20 14:22 Estimated GFR 46 08/02/20 14:22 Random Glucose 98 mg/dL (60-115) 08/02/20 14:22 Calcium 9.3 mg/dL (8.4-10.2) 08/02/20 14:22 Total Bilirubin 0.2 mg/dL (0.0-1.0) 08/02/20 14:22 AST 20 U/L (5-31) 08/02/20 14:22 ALT 24 U/L (0-31) 08/02/20 14:22 Alkaline Phosphatase 63 U/L (39-117) 08/02/20 14:22 Total Protein 6.1 g/dL (6.5-8.0) L 08/02/20 14:22 Albumin 4.0 g/dL (3.5-5.0) 08/02/20 14:22 IgG Total 348 mg/dL (600-1640) L 08/02/20 14:22 IgA Total 92 mg/dL (47-310) 08/02/20 14: IgM 42 mg/dL (50-300) L 08/02/20 14:22 CHERELLE Interpretation SEE NOTE 08/02/20 14:22 Progress Note: A/P (1) Pulmonary embolism Status: Acute Assessment and plan: 50-year-old lady with history of PE. She has pulmonary symptoms. She has asthma that is difficult to control. She has repeated bouts of bronchitis. She has intermittent diarrhea. She is under a GI. CT scan of the chest from 06/14 revealed: Suboptimal exam but no large central pulmonary emboli are seen. No pneumonia or pulmonary nodules seen. (2) Hypogammaglobulinemia Status: Acute Assessment and plan: This is a pleasant 50-year-old lady with history of PE. She has pulmonary symptoms. She has asthma that is difficult to control. She has repeated bouts of bronchitis. She has intermittent diarrhea. She is under a GI. Her gastric emptying study was okay. She had an upper endoscopy colonoscopy recently, which were relatively benign. Concern is for IBS-D. She had IgG subsets done: IgG1 222 IgG2 61 IgG3 9 IgG4 8.2 IgG TOTAL 342. 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 Concern would be for common variable immunodeficiency. Verses acquired immunodeficiency syndrome. I checked: SIEP: IgG 320 L IgA 92 IgM 45 L IMFIXS INTERP No abnormal bands are present on immunofixation. IgG subsets: IgG1 204 IgG2 56 IgG3 6 IgG4 2.8 IgG TOTAL 318 CD 4/ CD 8 ratio: TOTAL LYMPH 1862 CD3 1452 %CD3 78 CD4 (HELPER) 920 CD4% 49 CD8 (SUPRESSOR) 517 CD8% 28 CD4/CD8 RATIO 1.78 I arranged for IVIG, monthly. She has received 4 doses so far. However she tells me she still has had episodes of bronchitis and required antibiotics. PLAN: She will get 2 more doses of IVIG. Will then re-evaluate. I will follow-up on her IgG subsets. Hopefully that will work. She will return in 1 month for a follow-up visit. She will continue to follow up with GI. She will return in 3 months for a follow-up visit. Thank you, CC: (3) Anemia Status: Acute Assessment and plan: This is a pleasant 50-year-old lady. She has been more fatigued lately. Hemoglobin appears to have dropped. 10/13: It was 8.8. Iron studies revealed a low ferritin. She was advised to get IV Ferrlecit. She is starting that next Monday 11/06. Hemoglobin today is 9.4. PLAN: To proceed with IV Ferrlecit weekly. That should help bring her hemoglobin up and help with her energy level. Will follow-up on monthly labs. - Time Spent With Patient Total time spent is greater than 50% in coordination of care (as documented) at patient's floor/unit and/or counseling patient: 25 - 35 minutes
[2020-10-31 14:45] LABS: Alanine Aminotransferase 18 U/L (0-31); Albumin Level 3.8 g/dL (3.5-5.0); Alkaline Phosphatase 79 U/L (39-117); Anion Gap 13 (12-20); Aspartate Amino Transferase 17 U/L (5-31); Bilirubin Total 0.2 mg/dL (0.0-1.0); Blood Urea Nitrogen 12 mg/dL (9-16); Calcium 9.2 mg/dL (8.4-10.2); Carbon Dioxide 28 mmol/L (22-29); Chloride 103 mmol/L (96-108); Creatinine Clr Calc Pharmacy 65.7; Estimated Glomerular Filt Rate 58; Glucose Random 93 mg/dL (60-115); Potassium 5.2 mmol/l (3.3-5.1); Sodium 139 mmol/L (135-145); Total Protein 7.2 g/dL (6.5-8.0)
[2020-10-31 15:08] LABS: Ferritin 11 ng/mL (10-250)
--- NOTE | 2020-10-31 15:47 | MHC.HEMONC ---
Pt here for follow up with Dr Rios. Commercial Credit Reviewer present. Pt states is feeling tired and sleepy, ESPINAL, nausea, diarrhea, and dizzy. Labs drawn. Dr Rios in room. Pt is scheduled for Ferrelecit on 11/06 and IVIG on 11/25. Scheduled for next follow up with Dr Rios in 2 months.
[2020-11-04 14:32] LABS: IgA 102 mg/dL (47-310); IgG 1535 mg/dL (600-1640); IgM 58 mg/dL (50-300)
--- NOTE | 2020-12-10 13:45 | MHC.HEMONC ---
Reyna from stated that patient has not shown for last two ferrelicit appoitments. Patient called and left voicemail to wild back and update us.
--- NOTE | 2020-12-10 13:46 | MHC.HEMONC ---
Dejuan. aware patient has not shown up for [facility]relic[facility] appointments.
--- NOTE | 2020-12-10 14:25 | MHC.HEMONC ---
Patient booked for [facility] at 1230 12/13/20
[2021-02-10 14:12] VITALS: BP 125/59; PULSE 53; RESP 12; TEMP 36.1; O2SAT 97; BMI 41.4
--- NOTE | 2021-02-10 14:29 | PM.HEMONCPN ---
Medical Summary - Medical Summary Date of Service: 02/10/21 Chief complaint: Follow-up for: 1. Iron deficiency anemia. 2. Hypogammaglobulinemia. Medical Summary: DIAGNOSIS: Hypogammaglobulinemia. History of PE. Anemia. CURRENT THERAPY: 1. IVIG: Started 08/05/2020. Last dose was 01/20/2021. Due for next dose on 02/19. 2. Was on IV Ferrlecit. Completed course. Interval History Interval history: This is a pleasant 51 year-old lady here for a follow-up visit. She tells me she does not feel too well. She is rather fatigued. She feels sleepy a lot. She has body aches. She feels washed out. She gets headaches and dizziness. She remains afebrile. No chest pain. She denies any cough nor shortness of breath. Episodes of bronchitis are getting less frequent. She denies abdominal pain nausea vomiting nor heartburn. She does get diarrhea off and on. She has not really been eating too well. She has gained weight. Previous history: She has been diagnosed with severe asthma and seasonal allergic rhinitis as well as sleep apnea syndrome. She has had several courses of steroids and antibiotics. Most recently she was on azithromycin. She has had an extensive evaluation: A bronchoscopy was done which was non revealing. CT scan of the chest from June 14 revealed: Suboptimal exam but no large central pulmonary emboli are seen. No pneumonia or pulmonary nodules are seen. Review of Systems - Constitutional Reports system reviewed and no additional complaints, except as documented - Eyes Reports system reviewed and no additional complaints, except as documented - ENT Reports system reviewed and no additional complaints, except as documented - Cardiovascular Reports system reviewed and no additional complaints, except as documented - Respiratory Reports no additional respiratory complaints - Gastrointestinal Reports system reviewed and no additional complaints, except as documented - Genitourinary Reports no additional female genitourinary complaints - Musculoskeletal Reports system reviewed and no additional complaints, except as documented - Integumentary/Breasts Skin/Breast: Reports no additional skin complaints - Neurologic Reports system reviewed and no additional complaints, except as documented, Reports weakness - Psychiatric Reports system reviewed and no additional complaints, except as documented - Endocrine Reports no additional endocrine complaints - Hematologic/Lymphatic Reports system reviewed and no additional complaints, except as documented - Allergic/Immunologic Reports system reviewed and no additional complaints, except as documented PMF Medical History: Medical History (Last Reviewed 02/10/21 @ 14:13 by Gricelda Farrell) Anemia Arthritis Asthma Back pain Depression Diabetic neuropathy Diet-controlled diabetes mellitus Essential hypertension Fibromyalgia Hypogammaglobulinemia Hypothyroidism Laryngotracheitis Migraines Morbid obesity Pleuritic chest pain Pulmonary embolism Sleep apnea TIA (transient ischemic attack) Type 2 diabetes mellitus with unspecified complications Functional capacity: independent ambulation Patient : No Family History: Family History (Last Reviewed 02/10/21 @ 14:13 by Gricelda Farrell) Mother Diabetes Stroke Family/Other Diabetes Father Diabetes Surgical History: Surgical History (Last Reviewed 02/10/21 @ 14:13 by Gricelda Farrell) History of bariatric surgery History of cholecystectomy History of esophagogastroduodenoscopy (EGD) Hx of colonoscopy S/P total abdominal hysterectomy Social History: Social History (Last Reviewed 02/10/21 @ 14:13 by Gricelda Farrell) Living Situation History: Household Members: None Alcohol History: Alcohol intake: never Alcohol History Details: Alcohol intake frequency: does not drink Advance Directives: Advance Directives: No Advance Directives Information Provided: No Nutrition Assessment: Patient : No Occupation Assessmet: service: No Current occupational status: disabled Oncology Screenings - ECOG Performance Status ECOG Performance Status: 0 Home Medications and Allergies Home Medications Medication Instructions Recorded Confirmed Type montelukast 10 mg PO DAILY 08/02/20 12/24/20 History quetiapine [Seroquel] 300 mg PO DAILY 08/02/20 12/24/20 History zolpidem [Ambien] 10 mg PO BEDTIME PRN 08/02/20 12/24/20 History apixaban 5 mg tablet 5 mg PO BID 11/05/20 02/10/21 History cyanocobalamin (vitamin B-12) 1,000 mcg PO DAILY 11/05/20 02/10/21 History 1,000 mcg tablet lorazepam 0.5 mg tablet 0.5 mg PO DAILY PRN 11/05/20 02/10/21 History losartan 50 mg tablet 50 mg PO DAILY 11/05/20 02/10/21 History alclometasone 1 appl TOPICAL BID PRN 12/12/20 02/10/21 History escitalopram oxalate 1 tab PO DAILY 12/12/20 02/10/21 History fluocinonide 1 appl TOPICAL BID PRN 12/12/20 02/10/21 History hydroxyzine HCl 1 tab PO QID PRN 12/12/20 02/10/21 History immun glob G(IgG)-pro-IgA 0-50 40 g IV Q4W 12/12/20 02/10/21 History [Privigen] Allergies Allergy/AdvReac Type Severity Reaction Status Date / Time No Known Allergies Allergy Verified 12/24/20 14:37 Exam Vital signs: Vital Signs Temp 97.0 F 02/10/21 14:12 Pulse 53 02/10/21 14:12 Resp 12 02/10/21 14:12 BP 125/59 L 02/10/21 14:12 Pulse Ox 97 02/10/21 14:12 Intake & Output 02/09/21 02/10/21 02/10/21 18:59 06:59 18:59 Other: Weight 93.1 kg Weight in Grams [id number] Weight 93.1 kg Body Mass Index 41.4 - Constitutional Present: no acute distress - Routine HEENT Exam Head: Present: normal inspection Eye: Present: normal appearance ENT: Present: mucous membranes moist - Routine Neck Exam Present: full ROM, normal inspection - Routine Respiratory Exam Present: CTAB - Routine Cardiovascular Exam Cardiovascular: Present: RRR, S1, S2 - Routine Abdominal Exam Present: soft, nontender - Routine Rectal Exam Patient deferred: digital exam - Routine Extremities Exam Present: normal capillary refill, nontender - Routine Back/Spine/Pelvis Exam Back/Spine: Present: full ROM - Routine Skin Exam Present: intact - Routine Neurological Exam Present: alert, oriented X3 - Routine Psychiatric Exam Present: normal affect Data - Labs CBC & Chem 7: 02/10/21 14:29 02/10/21 14:29 Labs: 08/02/20 14:21 Complete Blood Count Auto Diff Routine 08/02/20 14:22 Comprehensive Met. Panel Routine D Dimer Routine Immunofixation Pnl, Serum Routine 10/31/20 13:48 Complete Blood Count Auto Diff Routine Comprehensive Met. Panel Routine Ferritin Routine Immunofixation Pnl, Serum Routine Laboratory Last Values WBC 6.8 X10*3/uL (4.8-10.8) 10/31/20 13:48 RBC 4.16 X10*6/uL (4.20-5.50) L 10/31/20 13:48 Hgb 9.4 g/dl (12.0-16.0) L 10/31/20 13:48 Hct 32.3 % (37-47) L 10/31/20 13:48 MCV 77.6 fL (80-98) L 10/31/20 13:48 MCH 22.6 pg (27.0-33.0) L 10/31/20 13:48 MCHC 29.1 g/dl (31.0-35.0) L 10/31/20 13:48 RDW 17.7 % (11.0-16.0) H 10/31/20 13:48 Plt Count 337 X10*3/uL (160-400) 10/31/20 13:48 MPV 8.7 fL (9.4-12.3) L 10/31/20 13:48 Immature Gran % (Auto) 0.3 % (0.0-0.4) 10/31/20 13:48 Neut % (Auto) 63.4 % (45-73) 10/31/20 13:48 Lymph % (Auto) 23.8 % (20-40) 10/31/20 13:48 [place] % (Auto) 8.5 % (2-11) 10/31/20 13:48 Eos % (Auto) 3.7 % (0-4) 10/31/20 13:48 Baso % (Auto) 0.3 % (0-2) 10/31/20 13:48 Neut # (Auto) 5.8 X10*3/uL (2.0-8.3) 08/02/20 14:21 Lymph # (Auto) 1.6 X10*3/uL (1.2-4.9) 10/31/20 13:48 [place] # (Auto) 0.6 X10*3/uL (0.1-1.2) 10/31/20 13:48 Eos # (Auto) 0.3 X10*3/uL (0.0-0.4) 10/31/20 13:48 Baso # (Auto) 0.0 X10*3/uL (0.0-0.2) 10/31/20 13:48 Abs Immat Gran (auto) 0.02 X10*3/uL (0.00-0.03) 10/31/20 13:48 Absolute Neuts (auto) 4.3 X10*3/uL (2.0-8.3) 10/31/20 13:48 Absolute Nucleated RBC 0.000 X10*3/uL (0.0-0.012) 10/31/20 13:48 Nucleated RBC % (auto) 0.0 /100WBC (0.0-0.2) 10/31/20 13:48 D-Dimer 295 NG/ML 08/02/20 14:22 Sodium 139 mmol/L (135-145) 10/31/20 13:48 Potassium 5.2 mmol/l (3.3-5.1) H D 10/31/20 13:48 Chloride 103 mmol/L (96-108) 10/31/20 13:48 Carbon Dioxide 28 mmol/L (22-29) 10/31/20 13:48 Anion Gap 13 (-20) 10/31/20 13:48 BUN 12 mg/dL (9-16) 10/31/20 13:48 Creatinine 1.00 mg/dL (0.5-1.4) 10/31/20 13:48 Estim Creat Clear Calc 65.7 10/31/20 13:48 Estimated GFR 58 10/31/20 13:48 Random Glucose 93 mg/dL (60-115) 10/31/20 13:48 Calcium 9.2 mg/dL (8.4-10.2) D 10/31/20 13:48 Ferritin 11 ng/mL (10-250) 10/31/20 13:48 Total Bilirubin 0.2 mg/dL (0.0-1.0) 10/31/20 13:48 AST 17 U/L (5-31) 10/31/20 13:48 ALT 18 U/L (0-31) 10/31/20 13:48 Alkaline Phosphatase 79 U/L (39-117) D 10/31/20 13:48 Total Protein 7.2 g/dL (6.5-8.0) 10/31/20 13:48 Albumin 3.8 g/dL (3.5-5.0) 10/31/20 13:48 IgG Total 1535 mg/dL (600-1640) 10/31/20 13:48 IgA Total 102 mg/dL (47-310) 10/31/20 13:48 IgM 58 mg/dL (50-300) 10/31/20 13:48 CHERELLE Interpretation SEE NOTE 10/31/20 13:48 Progress Note: A/P (1) Pulmonary embolism Status: Acute Assessment and plan: 50-year-old lady with history of PE. She has pulmonary symptoms. She has asthma that is difficult to control. She has repeated bouts of bronchitis. She has intermittent diarrhea. She is under a GI. CT scan of the chest from 06/14 revealed: Suboptimal exam but no large central pulmonary emboli are seen. No pneumonia or pulmonary nodules seen. (2) Hypogammaglobulinemia Status: Acute Assessment and plan: This is a pleasant 50-year-old lady with history of PE. She has pulmonary symptoms. She has asthma that is difficult to control. She has repeated bouts of bronchitis. She has intermittent diarrhea. She is under a GI. Her gastric emptying study was okay. She had an upper endoscopy colonoscopy recently, which were relatively benign. Concern is for IBS-D. She had IgG subsets done: IgG1 222 IgG2 61 IgG3 9 IgG4 8.2 IgG TOTAL 342. 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 Concern would be for common variable immunodeficiency. Verses acquired immunodeficiency syndrome. I checked: SIEP: IgG 320 L IgA 92 IgM 45 L IMFIXS INTERP No abnormal bands are present on immunofixation. IgG subsets: IgG1 204 IgG2 56 IgG3 6 IgG4 2.8 IgG TOTAL 318 CD 4/ CD 8 ratio: TOTAL LYMPH 1862 CD3 1452 %CD3 78 CD4 (HELPER) 920 CD4% 49 CD8 (SUPRESSOR) 517 CD8% 28 CD4/CD8 RATIO 1.78 I arranged for IVIG, monthly. She has received 6 doses so far. The episodes of bronchitis are getting less frequent. PLAN: She will continue to receive more doses of IVIG. I will re-evaluate, follow-up on her IgG subsets. Hopefully this will continue to do the trick. She will return in 3 months for a follow-up visit. She will continue to follow up with GI. Thank you, CC: (3) Anemia Status: Acute Assessment and plan: This is a pleasant 51 year-old lady. She has been more fatigued lately. Hemoglobin appears to have dropped. 10/13: It was 8.8. Iron studies revealed a low ferritin. She was advised to get IV Ferrlecit. She has completed the course. Hemoglobin today is 14.4. Which is normal. PLAN: Will continue to monitor her blood count over time. Thanks, - Time Spent With Patient Total time spent is greater than 50% in coordination of care (as documented) at patient's floor/unit and/or counseling patient: 25 - 35 minutes
[2021-02-10 14:31] LABS: MANUAL DIFF FLAG NO
[2021-02-10 14:45] LABS: Basophils Percent Auto 0.4 % (0-2); Eosinophils Absolute Auto 0.2 X10*3/uL (0.0-0.4); Eosinophils Percent Auto 1.7 % (0-4); Hematocrit 43.7 % (37-47); Imm Gran Abs Auto 0.14 X10*3/uL (0.00-0.03); Imm Gran Pct Auto 1.5 % (0.0-0.4); Lymphocytes Absolute Auto 3.3 X10*3/uL (1.2-4.9); Lymphocytes Percent Auto 34.8 % (20-40); Mean Corpuscular Hemoglobin 30.8 pg (27.0-33.0); Mean Corpuscular Volume 96.3 fL (80-98); Mean Platelet Volume 8.6 fL (9.4-12.3); Monocytes Absolute Auto 0.6 X10*3/uL (0.1-1.2); Monocytes Percent Auto 5.9 % (2-11); Neutrophils Absolute Auto 5.3 X10*3/uL (2.0-8.3); Neutrophils Percent Auto 55.7 % (45-73); Platelet Count 352 X10*3/uL (160-400); Red Blood Count 4.54 X10*6/uL (4.20-5.50); Red Cell Distribution Width 19.2 % (11.0-16.0); White Blood Count 9.5 X10*3/uL (4.8-10.8)
[2021-02-10 15:10] LABS: Alanine Aminotransferase 28 U/L (0-31); Alkaline Phosphatase 67 U/L (39-117); Anion Gap 12 (12-20); Aspartate Amino Transferase 23 U/L (5-31); Bilirubin Total 0.3 mg/dL (0.0-1.0); Blood Urea Nitrogen 20 mg/dL (9-16); Calcium 9.6 mg/dL (8.4-10.2); Carbon Dioxide 29 mmol/L (22-29); Chloride 103 mmol/L (96-108); Creatinine Clr Calc Pharmacy 58.1; Estimated Glomerular Filt Rate 51; Glucose Random 69 mg/dL (60-115); Potassium 4.5 mmol/L (3.3-5.1); Sodium 139 mmol/L (135-145); Total Protein 6.8 g/dL (6.5-8.0)
[2021-02-10 15:12] LABS: D Dimer < 200 NG/ML
--- NOTE | 2021-02-10 15:33 | MHC.HEMONCMA ---
Pt present to f/u on hypogammaglobulineamia and PE. History reviewed, labs drawn and pt to return in 3 months. Land [employer]er was used for this visit.
--- NOTE | 2022-08-06 14:18 | PM.HEMONCPN ---
Medical Summary - Medical Summary Date of Service: 08/06/22 Chief complaint: Follow-up for: 1. Hypogammaglobulinemia. 2. PE. Medical Summary: DIAGNOSIS: Hypogammaglobulinemia. History of PE. Anemia. CURRENT THERAPY: 1. IVIG: Started 08/05/2020. Last dose was 06/11/22. 2. Was on IV Ferrlecit. Completed course. 3. On Eliquis for PE. Interval History Interval history: This is a pleasant 52 year-old lady here for a follow-up visit. She tells me she is doing okay. Energy level is reasonable. Lately, she has noticed some bruising , She gets occassional headaches and dizziness. She remains afebrile. No chest pain. She denies any cough nor shortness of breath. Episodes of bronchitis are not too frequent. She denies abdominal pain nausea vomiting nor heartburn. She does get diarrhea off and on. She has been eating well. She has gained weight. Previous history: She has been diagnosed with severe asthma and seasonal allergic rhinitis as well as sleep apnea syndrome. She has had several courses of steroids and antibiotics. She has been on azithromycin. She has had an extensive evaluation: A bronchoscopy was done which was non revealing. CT scan of the chest from June 14 revealed: Suboptimal exam but no large central pulmonary emboli are seen. No pneumonia or pulmonary nodules are seen. Review of Systems - Constitutional Reports no additional constitutional complaints, Denies fever(s), Denies weakness, Reports weight gain - Eyes Reports no additional eye complaints - ENT Reports no additional ear, nose, mouth, and throat complaints - Cardiovascular Reports no additional cardiovascular complaints - Respiratory Reports no additional respiratory complaints - Gastrointestinal Reports no additional gastrointestinal complaints - Genitourinary Reports no additional female genitourinary complaints - Musculoskeletal Reports no additional musculoskeletal complaints - Integumentary/Breasts Skin/Breast: Reports no additional skin complaints - Neurologic Reports no additional neurologic complaints, Reports weakness - Psychiatric Reports no additional psychiatric complaints - Endocrine Reports no additional endocrine complaints - Hematologic/Lymphatic Reports no additional hematologic/lymphatic complaints - Allergic/Immunologic Reports no additional allergic/immunologic complaints FORMERLY [facility], [facility]1983 Medical History: Medical History (Last Reviewed 08/06/22 @ 14:34 by Marguerite House CMA) Anemia Arthritis Asthma Asthma exacerbation Asthma-COPD overlap syndrome Back pain Bronchitis Chronic pain syndrome Complex regional pain syndrome i of left lower limb Cough Depression Diabetic neuropathy Diet-controlled diabetes mellitus Disc degeneration, lumbosacral Dizziness Elevated lactic acid level Essential hypertension Fibromyalgia Headache Headache, migraine Hypogammaglobulinemia Hypothyroidism Laryngotracheitis Low back pain Morbid obesity Nausea vomiting and diarrhea BABATUNDE (obstructive sleep apnea) Osteoporosis Pleuritic chest pain 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 Pulmonary embolism Sleep apnea Spondylosis of cervical spine 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 TIA (transient ischemic attack) Type 2 diabetes mellitus with unspecified complications Functional capacity: independent ambulation Family History: Family History (Last Updated 08/06/22 @ 14:34 by Marguerite House CMA) Mother Diabetes Stroke Family/Other Diabetes Father Diabetes Maternal Aunt Cancer Surgical History: Surgical History (Last Reviewed 08/06/22 @ 14:34 by Marguerite oHuse CMA) History of bariatric surgery History of cholecystectomy History of esophagogastroduodenoscopy (EGD) Hx of colonoscopy S/P total abdominal hysterectomy Social History: Social History (Last Updated 08/06/22 @ 14:35 by Marguerite House CMA) Living Situation History: Household Members: None Housing: House Are you a primary personal care attendant to a significant other at home: No Do you presently have visiting nurse or other home services: No Tobacco History: Patient Tobacco Use Status: Never used Tobacco e-Cigarette/Vaping Use: Never Used Second Hand Smoke Exposure: No Advance Directives: Advance Directives Date on File: 05/23/21 Occupation Assessmet: service: No Current occupational status: unemployed Current occupational status: disabled Second hand tobacco smoke exposure: No Oncology Screenings - ECOG Performance Status ECOG Performance Status: 0 Home Medications and Allergies Home Medications Medication Instructions Recorded Confirmed Type montelukast 10 mg tablet 10 mg PO BEDTIME 08/02/20 08/06/22 History cyanocobalamin (vitamin B-12) 1,000 mcg PO DAILY 11/05/20 08/06/22 History 1,000 mcg tablet hydroxyzine HCl 25 mg tablet 1 tab PO TID PRN Anxiety 12/12/20 08/06/22 History cholecalciferol (vitamin D3) 25 25 mcg PO DAILY 03/19/21 08/06/22 History mcg (1,000 unit) tablet umeclidinium 62.5 mcg-vilanterol 1 puff inhalation DAILY 10/12/21 08/06/22 History 25 mcg/actuation powdr for inhalation (Anoro Ellipta) zolpidem 10 mg tablet 1 tab PO BEDTIME PRN Insomnia 11/12/21 08/06/22 History quetiapine 400 mg tablet (Seroquel) 400 mg PO BEDTIME 06/02/22 08/06/22 History tobramycin 0.3 %-dexamethasone 0.1 2 drp ophthalmic (eye) QID 06/02/22 08/06/22 History % eye drops,suspension Allergies Allergy/AdvReac Type Severity Reaction Status Date / Time No Known Allergies Allergy Verified 08/06/22 14:35 Exam Vital signs: Vital Signs Temp 97.0 F 02/10/21 14:12 Pulse 53 02/10/21 14:12 Resp 12 02/10/21 14:12 BP 125/59 L 02/10/21 14:12 Pulse Ox 97 02/10/21 14:12 O2 Del Method 02/10/21 14:12 Weight 93.1 kg BMI result Body Mass Index 41.4 - Constitutional Present: no acute distress - Routine HEENT Exam Head: Present: normal inspection Eye: Present: normal appearance ENT: Present: mucous membranes moist - Routine Neck Exam Present: full ROM, normal inspection - Routine Respiratory Exam Present: CTAB - Routine Cardiovascular Exam Cardiovascular: Present: RRR, S1, S2 - Routine Abdominal Exam Present: soft, nontender - Routine Rectal Exam Patient deferred: digital exam - Routine Extremities Exam Present: normal capillary refill, nontender - Routine Back/Spine/Pelvis Exam Back/Spine: Present: full ROM - Routine Skin Exam Present: intact - Routine Neurological Exam Present: alert, oriented X3 - Routine Psychiatric Exam Present: normal affect Data - Labs CBC & Chem 7: 08/06/22 14:27 08/06/22 14:27 Assessment and Plan Patient Active problem list reviewed?: Yes (1) Pulmonary embolism Status: Acute Assessment and plan: 52-year-old lady with history of PE. She has pulmonary symptoms. She has asthma that is difficult to control. She has repeated bouts of bronchitis. She has intermittent diarrhea. She is under a GI. CT scan of the chest from 06/14 revealed: Suboptimal exam but no large central pulmonary emboli are seen. No pneumonia or pulmonary nodules seen. Recently she has noticed bruising all over her body. I feel it is related to the Eliquis. Her PE was a couple of years ago. PLAN: Will decrease the dose of Eliquis to 2.5 mg twice a day and see if that would help. She will return in 6 months for a follow-up visit. (2) Hypogammaglobulinemia Status: Acute Assessment and plan: This is a pleasant 50-year-old lady with history of PE. She has pulmonary symptoms. She has asthma that is difficult to control. She has repeated bouts of bronchitis. She has intermittent diarrhea. She is under a GI. Her gastric emptying study was okay. She had an upper endoscopy colonoscopy recently, which were relatively benign. Concern is for IBS-D. She had IgG subsets done: IgG1 222 IgG2 61 IgG3 9 IgG4 8.2 IgG TOTAL 342. 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 Concern would be for common variable immunodeficiency. Verses acquired immunodeficiency syndrome. I checked: SIEP: IgG 320 L IgA 92 IgM 45 L IMFIXS INTERP No abnormal bands are present on immunofixation. IgG subsets: IgG1 204 IgG2 56 IgG3 6 IgG4 2.8 IgG TOTAL 318 CD 4/ CD 8 ratio: TOTAL LYMPH 1862 CD3 1452 %CD3 78 CD4 (HELPER) 920 CD4% 49 CD8 (SUPRESSOR) 517 CD8% 28 CD4/CD8 RATIO 1.78 I arranged for IVIG, monthly. She started that in August of 2020. She has been receiving it every month or every other month or so. The episodes of bronchitis have been less frequent. PLAN: She will continue to receive more doses of IVIG. Will switch her to Q other month. I will re-evaluate, follow-up on her IgG subsets. Hopefully this will continue to work. She will return in 6 months for a follow-up visit. She will continue to follow up with GI. Thank you, CC: (3) Anemia Status: Inactive Assessment and plan: This is a pleasant 52 year-old lady. She has been more fatigued lately. Hemoglobin appears to have dropped. 10/13: It was 8.8. Iron studies revealed a low ferritin. She was advised to get IV Ferrlecit. She has completed the course. Hemoglobin today is 11.5, is close to normal. PLAN: Will continue to monitor her blood count over time. Thanks, - Time Spent With Patient Time Spent with Patient (in minutes): 30
[2022-08-06 14:28] LABS: MANUAL DIFF FLAG NO
[2022-08-06 14:32] VITALS: BP 111/66; PULSE 94; RESP 14; TEMP 36.3; O2SAT 98; BMI 36.3
[2022-08-06 14:43] LABS: Basophils Percent Auto 0.3 % (0-2); Eosinophils Absolute Auto 0.3 X10*3/uL (0.0-0.4); Eosinophils Percent Auto 4.4 % (0-4); Hematocrit 37.2 % (37.0-47.0); Hemoglobin 11.5 g/dl (12.0-16.0); Imm Gran Abs Auto 0.04 X10*3/uL (0.00-0.03); Imm Gran Pct Auto 0.6 % (0.0-0.4); Lymphocytes Absolute Auto 1.8 X10*3/uL (1.2-4.9); Lymphocytes Percent Auto 26.6 % (20-40); Mean Corpuscular HGB Conc 30.9 g/dl (31.0-35.0); Mean Corpuscular Hemoglobin 27.3 pg (27.0-33.0); Mean Corpuscular Volume 88.4 fL (80.0-98.0); Monocytes Absolute Auto 0.3 X10*3/uL (0.1-1.2); Neutrophils Absolute Auto 4.2 x10*3/uL (2.0-8.3); Neutrophils Percent Auto 63.1 % (45-73); Platelet Count 293 X10*3/uL (160-400); Red Blood Count 4.21 X10*6/uL (4.20-5.50); Red Cell Distribution Width 16.1 % (11.0-16.0); White Blood Count 6.6 X10*3/uL (4.8-10.8)
[2022-08-06 15:07] LABS: Alanine Aminotransferase 17 U/L (0-31); Albumin Level 3.7 g/dL (3.5-5.0); Alkaline Phosphatase 93 U/L (39-117); Anion Gap 13 (12-20); Aspartate Amino Transferase 22 U/L (5-31); Bilirubin Total 0.2 mg/dL (0.0-1.0); Blood Urea Nitrogen 15 mg/dL (9-16); Carbon Dioxide 25 mmol/L (22-29); Chloride 105 mmol/L (96-108); Creatinine Clr Calc Pharmacy 49.3; Estimated Glomerular Filt Rate 46; Glucose Random 190 mg/dL (60-115); Potassium 4.7 mmol/L (3.3-5.1); Sodium 138 mmol/L (135-145)
[2022-08-06 15:28] LABS: Ferritin 10 ng/mL (10-250)
--- NOTE | 2022-08-06 16:11 | MHC.HEMONCMA ---
Pt was in for follow up. Clinical summary reviewed and updated, VSS. Labs were drawn. Pt to return in 6 months.
[2023-02-11 11:04] LABS: MANUAL DIFF FLAG NO
[2023-02-11 11:05] VITALS: BP 141/72; PULSE 74; TEMP 36.3; O2SAT 98; BMI 36.4
[2023-02-11 11:20] LABS: Basophils Percent Auto 0.4 % (0-2); Eosinophils Absolute Auto 0.1 X10*3/uL (0.0-0.4); Eosinophils Percent Auto 1.1 % (0-4); Hematocrit 35.8 % (37.0-47.0); Hemoglobin 10.6 g/dl (12.0-16.0); Imm Gran Abs Auto 0.08 X10*3/uL (0.00-0.03); Imm Gran Pct Auto 0.8 % (0.0-0.4); Lymphocytes Absolute Auto 0.9 X10*3/uL (1.2-4.9); Lymphocytes Percent Auto 8.4 % (20-40); Mean Corpuscular HGB Conc 29.6 g/dl (31.0-35.0); Mean Corpuscular Hemoglobin 23.9 pg (27.0-33.0); Mean Corpuscular Volume 80.8 fL (80.0-98.0); Monocytes Absolute Auto 0.4 X10*3/uL (0.1-1.2); Neutrophils Absolute Auto 8.9 x10*3/uL (2.0-8.3); Neutrophils Percent Auto 85.3 % (45-73); Platelet Count 401 X10*3/uL (160-400); Red Blood Count 4.43 X10*6/uL (4.20-5.50); Red Cell Distribution Width 17.9 % (11.0-16.0); White Blood Count 10.4 X10*3/uL (4.8-10.8)
--- NOTE | 2023-02-11 11:33 | P.PNHO-ONC_ITS ---
Medical Summary - Medical Summary Date of Service: 02/11/23 Chief complaint: Follow-up for: 1. Hypogammaglobulinemia. 2. PE. 3. Anemia. Primary Care Provider: Claudia Villatoro MD Medical Summary: DIAGNOSIS: Hypogammaglobulinemia. History of PE. Anemia. CURRENT THERAPY: 1. IVIG: Started 08/05/2020. Last dose was 06/11/22. 2. Was on IV Ferrlecit. Completed course. 3. On Eliquis for PE. Interval History Interval history: This is a pleasant 53 year-old lady here for a follow-up visit. She tells me she is not doing too well. Energy level is reasonable, however her asthma is acting up. She has been taking medications for it. She is on prednisone. She is on Tessalon Perles. She gets occassional headaches and dizziness. Her energy level is really low. She is afebrile. No chest pain. She denies any cough nor shortness of breath. Episodes of bronchitis are not too frequent. She denies abdominal pain nausea vomiting nor heartburn. She does get diarrhea off and on. She has been eating well. She has gained weight. She is taking iron once a day. Previous history: She has been diagnosed with severe asthma and seasonal allergic rhinitis as well as sleep apnea syndrome. She has had several courses of steroids and antibiotics. She has been on azithromycin. She has had an extensive evaluation: A bronchoscopy was done which was non revealing. CT scan of the chest from June 14 revealed: Suboptimal exam but no large central pulmonary emboli are seen. No pneumonia or pulmonary nodules are seen. Review of Systems - Constitutional Reports no additional constitutional complaints, Reports lack of energy, Reports weakness, Reports weight gain - Eyes Reports no additional eye complaints - ENT Reports no additional ear, nose, mouth, and throat complaints - Cardiovascular Reports no additional cardiovascular complaints - Respiratory Reports no additional respiratory complaints, Reports dyspnea on exertion - Gastrointestinal Reports no additional gastrointestinal complaints - Genitourinary Reports no additional female genitourinary complaints - Musculoskeletal Reports no additional musculoskeletal complaints - Integumentary/Breasts Skin/Breast: Reports no additional skin complaints - Neurologic Reports no additional neurologic complaints, Denies weakness - Psychiatric Reports no additional psychiatric complaints - Endocrine Reports no additional endocrine complaints - Hematologic/Lymphatic Reports no additional hematologic/lymphatic complaints - Allergic/Immunologic Reports no additional allergic/immunologic complaints [facility] Medical History: Medical History (Last Reviewed 02/11/23 @ 11:07 by Handy Yin) Anemia Arthritis Asthma exacerbation Asthma-COPD overlap syndrome Back pain Bronchitis Chronic pain syndrome Complex regional pain syndrome i of left lower limb Cough Depression Diabetic neuropathy Diet-controlled diabetes mellitus Disc degeneration, lumbosacral Dizziness Elevated lactic acid level Essential hypertension Fibromyalgia Headache Headache, migraine History of COVID-19 Hypogammaglobulinemia Hypothyroidism Laryngotracheitis Low back pain Morbid obesity Nausea vomiting and diarrhea BABATUNDE (obstructive sleep apnea) Osteoporosis Pleuritic chest pain 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 Pulmonary embolism Sleep apnea Spondylosis of cervical spine 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 TIA (transient ischemic attack) Type 2 diabetes mellitus with unspecified complications Functional capacity: independent ambulation Family History: Family History (Last Reviewed 02/11/23 @ 11:07 by Handy Yin) Mother Diabetes Stroke Family/Other Diabetes Father Diabetes Maternal Aunt Cancer Surgical History: Surgical History (Last Reviewed 02/11/23 @ 11:07 by Handy Yin) History of bariatric surgery History of cholecystectomy History of esophagogastroduodenoscopy (EGD) Hx of colonoscopy S/P total abdominal hysterectomy Social History: Social History (Last Reviewed 02/11/23 @ 11:07 by Handy Yin) Living Situation History: Household Members: Caregiver Housing: House Are you a primary career coordinator to a significant other at home: No Do you presently have visiting nurse or other home services: No Alcohol History Details: 1. How often do you have a drink containing alcohol?: a. Never Tobacco History: Patient Tobacco Use Status: Never used Tobacco e-Cigarette/Vaping Use: Never Used Second Hand Smoke Exposure: No Substance Use History: Use of substances other than those prescribed or required for medical reasons : No Domestic Abuse History: Have you been hit, kicked, punched, or otherwise hurt by someone within the past year? If so, by whom?: No Advance Directives: Advance Directives: No Advance Directives Information Provided: No Advance Directives Date on File: 05/23/21 Homicidal Assessment: Do you have thoughts of harming others: None Do you have a plan to hurt others: No Plan Do you have the means to hurt others: No Nutrition Assessment: Recently lost weight without trying: No Eating poorly because of decreased appetite: No Patient : No Occupation Assessmet: service: No Current occupational status: unemployed Current occupational status: disabled Oncology Screenings - ECOG Performance Status ECOG Performance Status: 1 Home Medications and Allergies Home Medications Medication Instructions Recorded Confirmed Type montelukast 10 mg tablet 10 mg PO BEDTIME 08/02/20 02/11/23 History cyanocobalamin (vitamin B-12) 1,000 mcg PO DAILY 11/05/20 02/11/23 History 1,000 mcg tablet quetiapine 400 mg tablet (Seroquel) 400 mg PO BEDTIME 06/02/22 02/11/23 History escitalopram oxalate 10 mg tablet 1 tab PO DAILY 08/21/22 02/11/23 History zolpidem 10 mg tablet 1 tab PO BEDTIME 08/21/22 02/11/23 History cholecalciferol (vitamin D3) 25 1 tab PO DAILY 11/28/22 02/11/23 History mcg (1,000 unit) tablet valsartan 160 mg tablet 1 tab PO DAILY 11/28/22 02/11/23 History quetiapine 300 mg tablet 300 mg PO BEDTIME 12/07/22 02/11/23 History Allergies Allergy/AdvReac Type Severity Reaction Status Date / Time No Known Allergies Allergy Verified 02/11/23 11:07 Exam Vital signs: Vital Signs Temp 97.4 F 02/11/23 11:05 Pulse 74 02/11/23 11:05 Resp 14 08/06/22 14:32 BP 141/72 H 02/11/23 11:05 Pulse Ox 98 02/11/23 11:05 O2 Del Method Room Air 02/11/23 11:05 Intake & Output 02/10/23 02/11/23 02/11/23 18:59 06:59 18:59 Other: Weight 81.9 kg Weight in Grams 58710 Weight 81.9 kg BMI result Body Mass Index 36.4 - Constitutional Present: no acute distress - Routine HEENT Exam Head: Present: normal inspection Eye: Present: normal appearance ENT: Present: mucous membranes moist - Routine Neck Exam Present: full ROM, normal inspection - Routine Respiratory Exam Present: CTAB - Routine Cardiovascular Exam Cardiovascular: Present: RRR, S1, S2 - Routine Abdominal Exam Present: soft, nontender - Routine Rectal Exam Patient deferred: digital exam - Routine Extremities Exam Present: normal capillary refill, nontender - Routine Back/Spine/Pelvis Exam Back/Spine: Present: full ROM - Routine Skin Exam Present: intact - Routine Neurological Exam Present: alert, oriented X3 - Routine Psychiatric Exam Present: normal affect Data - Labs CBC & Chem 7: 02/11/23 11:02 02/11/23 11:02 Assessment and Plan Patient Active problem list reviewed?: Yes (1) Pulmonary embolism Problem details: 2019-taking eliquis Status: Acute Assessment and plan: 53-year-old lady with history of PE. She has pulmonary symptoms. She has asthma that is difficult to control. She has repeated bouts of bronchitis. She has intermittent diarrhea. She is under a GI. CT scan of the chest from 06/14 revealed: Suboptimal exam but no large central pulmonary emboli are seen. No pneumonia or pulmonary nodules seen. Recently she has noticed bruising all over her body. I feel it is related to the Eliquis. Her PE was a couple of years ago. l decreased the dose of Eliquis to 2.5 mg twice a day. That has helped. PLAN: She will return in 6 months for a follow-up visit. (2) Hypogammaglobulinemia Status: Acute Assessment and plan: This is a pleasant 50-year-old lady with history of PE. She has pulmonary symptoms. She has asthma that is difficult to control. She has repeated bouts of bronchitis. She has intermittent diarrhea. She is under a GI. Her gastric emptying study was okay. She had an upper endoscopy colonoscopy recently, which were relatively benign. Concern is for IBS-D. She had IgG subsets done: IgG1 222 IgG2 61 IgG3 9 IgG4 8.2 IgG TOTAL 342. 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 Concern would be for common variable immunodeficiency. Verses acquired immunodeficiency syndrome. I checked: SIEP: IgG 320 L IgA 92 IgM 45 L IMFIXS INTERP No abnormal bands are present on immunofixation. IgG subsets: IgG1 204 IgG2 56 IgG3 6 IgG4 2.8 IgG TOTAL 318 CD 4/ CD 8 ratio: TOTAL LYMPH 1862 CD3 1452 %CD3 78 CD4 (HELPER) 920 CD4% 49 CD8 (SUPRESSOR) 517 CD8% 28 CD4/CD8 RATIO 1.78 I arranged for IVIG, monthly. She started that in August of 2020. She has been receiving it every other month or so. The episodes of bronchitis have been less frequent. She received her last dose on 01/11/2023 and before that was 11/13/2022. PLAN: She will continue to receive IVIG Q other month. I will re-evaluate, follow-up on her IgG subsets. Hopefully this will continue to work. She will return in 6 months for a follow-up visit. She will continue to follow up with GI. Thank you, CC: (3) Anemia Status: Inactive Assessment and plan: This is a pleasant 53 year-old lady. She has been more fatigued lately. Hemoglobin appears to have dropped. 10/13/21: It was 8.8. Iron studies revealed a low ferritin. She was advised to get IV Ferrlecit. She has completed the course. Hemoglobin today is 10.5, stable. PLAN: she will take iron twice a day. Will continue to monitor her blood count over time. Thanks, - Time Spent With Patient Time Spent with Patient (in minutes): 30
[2023-02-11 11:34] LABS: Alanine Aminotransferase 31 U/L (0-31); Albumin Level 3.8 g/dL (3.5-5.0); Alkaline Phosphatase 98 U/L (39-117); Anion Gap 12 (12-20); Aspartate Amino Transferase 25 U/L (5-31); Bilirubin Total 0.2 mg/dL (0.0-1.0); Blood Urea Nitrogen 13 mg/dL (9-16); Calcium 9.6 mg/dL (8.4-10.2); Carbon Dioxide 26 mmol/L (22-29); Chloride 106 mmol/L (96-108); Creatinine Clr Calc Pharmacy 54.7; Estimated Glomerular Filt Rate 52; Glucose Random 95 mg/dL (60-115); Potassium 4.8 mmol/L (3.3-5.1); Sodium 139 mmol/L (135-145); Total Protein 6.1 g/dL (6.5-8.0)
--- NOTE | 2023-02-11 16:30 | MHC.HEMONCMA ---
patient seen today for hypogammaglobulinemia, vss,labs, following up in 6 months
[2023-02-15 11:58] LABS: Immunoglobulin G Subclass 1 340 mg/dL (382-929); Immunoglobulin G Subclass 2 153 mg/dL (241-700); Immunoglobulin G Subclass 3 15 mg/dL (22-178); Immunoglobulin G Subclass 4 4.6 mg/dL (4-86); Immunoglobulin G Total 594 mg/dL (600-1640)
--- NOTE | 2023-09-13 09:20 | HE.ONCSEC ---
LVM reminding pt of appt on 09/13/23
--- NOTE | 2023-09-15 13:43 | HE.ONCSEC ---
No Show ltr was mailed to pt.
[2024-01-26 09:18] LABS: MANUAL DIFF FLAG NO
[2024-01-26 09:21] VITALS: BP 108/60; PULSE 84; O2SAT 99; BMI 36.5
[2024-01-26 09:22] LABS: Basophils Percent Auto 0.5 % (0-2); Eosinophils Absolute Auto 0.2 X10*3/uL (0.0-0.4); Eosinophils Percent Auto 3.6 % (0-4); Hematocrit 36.2 % (37.0-47.0); Hemoglobin 10.9 g/dl (12.0-16.0); Imm Gran Abs Auto 0.01 X10*3/uL (0.00-0.03); Imm Gran Pct Auto 0.2 % (0.0-0.4); Lymphocytes Absolute Auto 2.3 X10*3/uL (1.2-4.9); Lymphocytes Percent Auto 34.8 % (20-40); Mean Corpuscular HGB Conc 30.1 g/dl (31.0-35.0); Mean Corpuscular Hemoglobin 23.3 pg (27.0-33.0); Mean Corpuscular Volume 77.5 fL (80.0-98.0); Mean Platelet Volume 8.8 fL (9.4-12.3); Monocytes Absolute Auto 0.5 X10*3/uL (0.1-1.2); Monocytes Percent Auto 7.3 % (2-11); Neutrophils Absolute Auto 3.5 x10*3/uL (2.0-8.3); Neutrophils Percent Auto 53.6 % (45-73); Platelet Count 334 X10*3/uL (160-400); Red Blood Count 4.67 X10*6/uL (4.20-5.50); Red Cell Distribution Width 17.4 % (11.0-16.0); White Blood Count 6.5 X10*3/uL (4.8-10.8)
--- NOTE | 2024-01-26 09:27 | P.PNHO-ONC_ITS ---
Medical Summary - Medical Summary Date of Service: 01/26/24 Chief complaint: Follow-up for: 1. Hypogammaglobulinemia. 2. PE. Primary Care Provider: Claudia Villatoro MD Medical Summary: DIAGNOSIS: Hypogammaglobulinemia. History of PE. Anemia. CURRENT THERAPY: 1. IVIG: Started 08/05/2020. Has been getting it monthly. Last dose was 01/14/24. 2. Was on IV Ferrlecit. Completed course. 3. On Eliquis for PE. Interval History Interval history: This is a pleasant 54 year-old lady here for a follow-up visit. She tells me she is not doing too well. She has had a cough for a few days. She has a sore throat. Sometimes she feels it closes up. She is under the care of Dr. Larry from [facility]. Energy level is reasonable, however sometimes her asthma acts up. She has been taking prednisone and Tessalon Perles. Her energy level is really low. She is afebrile. She gets occassional headaches and dizziness. No chest pain, nor shortness of breath. Episodes of bronchitis are not too frequent. She denies abdominal pain nausea vomiting nor heartburn. She does get diarrhea off and on. She has been eating well. She has gained weight. She is taking iron once a day. Previous history: She has been diagnosed with severe asthma and seasonal allergic rhinitis as well as sleep apnea syndrome. She has had several courses of steroids and antibiotics. She has been on azithromycin. She has had an extensive evaluation: A bronchoscopy was done which was non revealing. CT scan of the chest from June 14 revealed: Suboptimal exam but no large central pulmonary emboli are seen. No pneumonia or pulmonary nodules are seen. Review of Systems - Constitutional Reports no additional constitutional complaints, Reports lack of energy, Reports malaise, Denies weight loss - Eyes Reports no additional eye complaints - ENT Reports no additional ear, nose, mouth, and throat complaints - Cardiovascular Reports no additional cardiovascular complaints - Respiratory Reports no additional respiratory complaints - Gastrointestinal Reports no additional gastrointestinal complaints - Genitourinary Reports no additional female genitourinary complaints - Musculoskeletal Reports no additional musculoskeletal complaints - Integumentary/Breasts Skin/Breast: Reports no additional skin complaints - Neurologic Reports no additional neurologic complaints, Reports weakness - Psychiatric Reports no additional psychiatric complaints - Endocrine Reports no additional endocrine complaints - Hematologic/Lymphatic Reports no additional hematologic/lymphatic complaints - Allergic/Immunologic Reports no additional allergic/immunologic complaints [facility] Medical History: Medical History (Last Reviewed 01/26/24 @ 09:19 by Handy Yin) Abdominal pain Acute bronchitis Acute severe exacerbation of moderate persistent asthma Anemia Arthritis Asthma exacerbation Asthma-COPD overlap syndrome Back pain Bile salt-induced diarrhea Bronchitis Chronic pain syndrome Complex regional pain syndrome i of left lower limb Constipation Cough COVID-19 Depression Diabetic neuropathy Diet-controlled diabetes mellitus Disc degeneration, lumbosacral Dizziness Elevated lactic acid level Epigastric pain Essential hypertension Fibromyalgia Headache Headache, migraine History of COVID-19 History of peristent cough as a child Hypogammaglobulinemia Hypothyroidism Knee pain, left Laryngotracheitis Left hip pain Low back pain Morbid obesity Nausea vomiting and diarrhea BABATUNDE (obstructive sleep apnea) Osteoporosis Persistent cough Pleuritic chest pain 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 Pulmonary embolism Sleep apnea Spondylosis of cervical spine 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 TIA (transient ischemic attack) Tracheomalacia Type 2 diabetes mellitus with unspecified complications Upper respiratory infection Weight gain Functional capacity: independent ambulation Patient : No Family History: Family History (Last Reviewed 01/26/24 @ 09:19 by Handy Yin) Mother Diabetes Stroke Family/Other Diabetes Father Diabetes Maternal Aunt Cancer Surgical History: Surgical History (Last Reviewed 01/26/24 @ 09:19 by Handy Yin) History of bariatric surgery History of cholecystectomy History of esophagogastroduodenoscopy (EGD) Hx of colonoscopy S/P total abdominal hysterectomy Social History: Social History (Last Reviewed 01/26/24 @ 09:19 by Handy Yin) Living Situation History: Household Members: None Housing: Apartment Are you a primary clinical care coordinator to a significant other at home: No Do you presently have visiting nurse or other home services: No 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 How often do you have a drink containing alcohol?: a. Never Tobacco History: Patient Tobacco Use Status: Never used Tobacco e-Cigarette/Vaping Use: Never Used Second Hand Smoke Exposure: No Substance Use History: Use of substances other than those prescribed or required for medical reasons : No Substance Use Type: Opiates Domestic Abuse History: Have you been hit, kicked, punched, or otherwise hurt by someone within the past year? If so, by whom?: No Advance Directives: Advance Directives: No Advance Directives Information Provided: No Advance Directives Date on File: 05/23/21 Homicidal Assessment: Do you have thoughts of harming others: None Do you have a plan to hurt others: No Plan Do you have the means to hurt others: No Nutrition Assessment: Recently lost weight without trying: No Eating poorly because of decreased appetite: No Patient : No Occupation Assessmet: service: No Current occupational status: unemployed Current occupational status: disabled Oncology Screenings - ECOG Performance Status ECOG Performance Status: 0 Home Medications and Allergies Home Medications Medication Instructions Recorded Confirmed Type montelukast 10 mg tablet 10 mg PO BEDTIME 08/02/20 01/26/24 History cyanocobalamin (vitamin B-12) 1,000 mcg PO DAILY 11/05/20 01/26/24 History 1,000 mcg tablet escitalopram oxalate 10 mg tablet 1 tab PO DAILY 08/21/22 01/26/24 History cholecalciferol (vitamin D3) 25 1 tab PO DAILY 11/28/22 01/26/24 History mcg (1,000 unit) tablet valsartan 160 mg tablet 1 tab PO DAILY 11/28/22 01/26/24 History betamethasone dipropionate 0.05 % 1 appl topical BID PRN psoriasis 02/12/23 01/26/24 History lotion blood sugar diagnostic (FreeStyle #10 ea 02/12/23 01/26/24 History Lite Strips) calcipotriene 0.005 % topical 1 appl topical BID PRN flares 02/12/23 01/26/24 History ointment fluocinonide 0.05 % topical 1 appl topical BID PRN flares 02/12/23 01/26/24 History ointment fluticasone propionate 50 50 mcg intranasal DAILY 02/12/23 01/26/24 History mcg/actuation nasal spray,suspension hydroxyzine HCl 25 mg tablet 25 mg PO TID PRN itch 02/12/23 01/26/24 History nebulizers 04/02/23 01/26/24 History loratadine 10 mg tablet 10 mg PO DAILY 08/22/23 01/26/24 History quetiapine 400 mg tablet 400 mg PO BEDTIME 08/22/23 01/26/24 History ferrous sulfate 325 mg (65 mg 325 mg PO DAILY 11/08/23 01/26/24 History iron) tablet lorazepam 0.5 mg tablet 0.25 mg PO .every other day PRN 11/10/23 01/26/24 History Anxiety zolpidem 10 mg tablet 10 mg PO BEDTIME Insomnia 11/22/23 01/26/24 History blood-glucose meter (FreeStyle #1 ea 12/08/23 01/26/24 History Sylva Lite kit) lancets 28 gauge (FreeStyle #100 ea 12/08/23 01/26/24 History Lancets) Allergies Allergy/AdvReac Type Severity Reaction Status Date / Time No Known Allergies Allergy Verified 01/26/24 09:19 Exam Vital signs: Vital Signs Temp 97.4 F 02/11/23 11:05 Pulse 84 01/26/24 09:21 Resp 14 08/06/22 14:32 BP 108/60 01/26/24 09:21 Pulse Ox 99 01/26/24 09:21 O2 Del Method Room Air 01/26/24 09:21 Intake & Output 01/25/24 01/26/24 01/26/24 18:59 06:59 18:59 Other: Weight 82 kg [place] Weight in Grams [id number] Weight 82 kg BMI result Body Mass Index 36.5 - Constitutional Present: no acute distress - Routine HEENT Exam Head: Present: normal inspection Eye: Present: normal appearance ENT: Present: mucous membranes moist - Routine Neck Exam Present: full ROM, normal inspection - Routine Respiratory Exam Present: CTAB - Routine Cardiovascular Exam Cardiovascular: Present: RRR, S1, S2 - Routine Abdominal Exam Present: soft, nontender - Routine Rectal Exam Patient deferred: digital exam - Routine Extremities Exam Present: normal capillary refill, nontender - Routine Back/Spine/Pelvis Exam Back/Spine: Present: full ROM - Routine Skin Exam Present: intact - Routine Neurological Exam Present: alert, oriented X3 - Routine Psychiatric Exam Present: normal affect Data - Labs CBC & Chem 7: 01/26/24 09:17 01/26/24 09:17 Assessment and Plan Patient Active problem list reviewed?: Yes (1) Pulmonary embolism Problem details: 2020-taking eliquis Status: Acute Assessment and plan: 54 year-old lady with history of PE. She has pulmonary symptoms. She has asthma that is difficult to control. She has repeated bouts of bronchitis. She has intermittent diarrhea. She is under a GI. CT scan of the chest from 06/14 revealed: Suboptimal exam but no large central pulmonary emboli are seen. No pneumonia or pulmonary nodules seen. Recently she has noticed bruising all over her body. I feel it is related to the Eliquis. Her PE was in11/20, more than 3 years ago. l decreased the dose of Eliquis to 2.5 mg twice a day. That has helped decrease the bruising. PLAN: She will return in 6 months for a follow-up visit. (2) Hypogammaglobulinemia Status: Acute Assessment and plan: This is a pleasant 50-year-old lady with history of PE. She has pulmonary symptoms. She has asthma that is difficult to control. She has repeated bouts of bronchitis. She has intermittent diarrhea. She is under a GI. Her gastric emptying study was okay. She had an upper endoscopy colonoscopy recently, which were relatively benign. Concern is for IBS-D. She had IgG subsets done: IgG1 222 IgG2 61 IgG3 9 IgG4 8.2 IgG TOTAL 342. 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 Concern would be for common variable immunodeficiency. Verses acquired immunodeficiency syndrome. I checked: SIEP: IgG 320 L IgA 92 IgM 45 L IMFIXS INTERP No abnormal bands are present on immunofixation. IgG subsets: IgG1 204 IgG2 56 IgG3 6 IgG4 2.8 IgG TOTAL 318 CD 4/ CD 8 ratio: TOTAL LYMPH 1862 CD3 1452 %CD3 78 CD4 (HELPER) 920 CD4% 49 CD8 (SUPRESSOR) 517 CD8% 28 CD4/CD8 RATIO 1.78 I arranged for IVIG, monthly. She started that in August of 2020. She brings her own medication. She has been receiving it every month or so. The episodes of bronchitis have been less frequent. IgG subclasses from 02/11/2023: IgG 1: 340, IgG 2: 153, IgG 3:15. She received her last dose on 01/14/2024 and before that was 12/16/2023. Next dose is due on 02/15/2024. She is doing reasonably well. PLAN: She will continue to receive IVIG Q month. I will re-evaluate, follow-up on her IgG subsets. Hopefully this will continue to work. She will return in 6 months for a follow-up visit. She will continue to follow up with GI. Thank you, CC: (3) Anemia Status: Inactive Assessment and plan: This is a pleasant 54 year-old lady. She has been more fatigued lately. Hemoglobin appears to have dropped. 10/13/21: It was 8.8. Iron studies revealed a low ferritin. She was advised to get IV Ferrlecit. She has completed the course. Hemoglobin today is 10.9, improved. PLAN: she will take iron twice a day. Will continue to monitor her blood count over time. Thanks, - Time Spent With Patient Time Spent with Patient (in minutes): 26
[2024-01-26 09:29] LABS: D Dimer High Sensitivity 206 NG/ML
--- NOTE | 2024-01-26 09:38 | MHC.HEMONCMA ---
patient seen today for hypogammaglobulinemia, vss, labs, following up with provider in 6 months
[2024-01-26 09:39] LABS: Alanine Aminotransferase 18 U/L (0-31); Albumin Level 3.8 g/dL (3.5-5.0); Alkaline Phosphatase 110 U/L (39-117); Anion Gap 12 (12-20); Aspartate Amino Transferase 29 U/L (5-31); Bilirubin Total 0.2 mg/dL (0.0-1.0); Blood Urea Nitrogen 13 mg/dL (9-16); Calcium 10.3 mg/dL (8.4-10.2); Carbon Dioxide 25 mmol/L (22-29); Chloride 108 mmol/L (96-108); Estimated Glomerular Filt Rate 43; Glucose Random 116 mg/dL (60-115); Potassium 4.3 mmol/L (3.3-5.1); Sodium 141 mmol/L (135-145); Total Protein 7.1 g/dL (6.5-8.0)
[2024-01-28 11:32] LABS: IgA 101 mg/dL (47-310); IgG 1075 mg/dL (600-1640); IgM 68 mg/dL (50-300)
== END 2024-04-29 | disposition home or self-care (01) ==
LOC: HO.ONC 09:20
PROVIDERS: PCP Internal Medicine; Visit Provider Internal Medicine Medical Oncology
DX: D80.1 Nonfamilial hypogammaglobulinemia (principal); D64.9 Anemia, unspecified; J45.909 Unspecified asthma, uncomplicated; Z86.711 Personal history of pulmonary embolism; Z79.01 Long term (current) use of anticoagulants
CPT/HCPCS: 36415; 80053; 82728; 82784; 85025; 85379; 86334; 99212; 99213; 99214

== ENCOUNTER 2024-02-09 09:31 | Outpatient (AMB) | payer OTHER, SELFPAY ==
[2024-02-09 09:52] VITALS: BP 139/67; PULSE 84; RESP 14; O2SAT 96; BMI 36.4
--- NOTE | 2024-02-09 09:52 | A.OFFVIS_ITS ---
Intake Vital Signs 02/09/24 09:52 Height 4 ft 11 in Weight 180 lb BMI 36.4 BP 139/67 Blood Pressure Location Lt brachial Position Sitting Respiration 14 Pulse 84 Pulse Source Pulse Oximeter Pulse Oximetry (%) 96 Oxygen Delivery Method Room Air Intake Visit Reasons: PILL COUNT Allergies No Known Allergies Allergy (Verified 01/26/24 09:19) HPI HPI Comments History of Present Illness Details Maye is a very pleasant 54 year old female who presents to the office today for follow up chronic pain and chronic opioid therapy management. Patient is prescribed oxycodone 5mg tabs, take one tablet three times daily. Patient arrived today with the expectation of having 33 pills, she presented 33 pills which were counted in the presence of two staff members and returned to the patient in the original prescription bottle. This demonstrates responsible attitude toward patient's opioid medications. Pain is reported today as 5/10 and last dose of pain medication was taken at 9:00 this morning. Chronic pain is adequately managed on current opioid regimen with improvement in mobility and overall functioning. She denies side effects including nausea, constipation, somnolence, weakness, urinary retention, chest pain or syncope. Previously: She was suspended for 6 months because UDS demonstrated tramadol in her urine. She was admitted slightly earlier on the request of her PCP - she developed renal insufficiency and she was taking large doses of NSAIDs to help her pain. Her risk of Opioid was low.? When she come back from suspension her opioid risk will become moderate. 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 Dizziness Headache Elevated lactic acid level Bronchitis Headache, migraine Asthma exacerbation Cough BABATUNDE (obstructive sleep apnea) Chronic pain syndrome Spondylosis of lumbar spine Low back pain Complex regional pain syndrome i of left lower limb Diabetic neuropathy Laryngotracheitis Essential hypertension Type 2 diabetes mellitus with unspecified complications Morbid obesity Anemia Back pain Pleuritic chest pain Fibromyalgia Hypothyroidism TIA (transient ischemic attack) Diet-controlled diabetes mellitus Depression Arthritis Sleep apnea Hypogammaglobulinemia Pulmonary embolism Surgical History History of esophagogastroduodenoscopy (EGD) Hx of colonoscopy S/P total abdominal hysterectomy History of cholecystectomy History of bariatric surgery Family History Mother Diabetes Stroke Family/Other Diabetes Father Diabetes Maternal Aunt Cancer Social History Household Members: None Housing: Apartment Are you a primary school childcare attendant to a significant other at home: No Do you presently have 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) Alcohol intake: never Patient Tobacco Use Status: Never used Tobacco e-Cigarette/Vaping Use: Never Used Second Hand Smoke Exposure: No Substance Use Type: Opiates Advance Directives Date on File: 05/23/21 service: No Current occupational status: unemployed and disabled Review of Systems Const All systems reviewed & are unremarkable except as noted in HPI and below Physical Exam Vital Signs: Last Vital Signs Pulse 84 02/09/24 09:52 Resp 14 02/09/24 09:52 BP 139/67 02/09/24 09:52 Pulse Ox 96 02/09/24 09:52 Oxygen Delivery Method Room Air 02/09/24 09:52 BMI result Body Mass Index 36.4 General: awake, alert, oriented. Answers questions appropriately. Fully engaged in examination. Skin: warm, dry, intact. HEENT: Normocephalic. Hearing intact. Cardiac: External chest normal in appearance. Respiratory: No cough, audible wheezing or stridor. Abdomen: without gross distension. MS: No obvious swelling or deformities. Able to transition from sit to stand unassisted. Ambulates with use of a cane Neurological: Oriented to person, place, time and situation. Thought process intact. Psychiatric: Appropriate mood and affect. Good judgment and insight. Results Reviewed Results Reviewed: 11/12/2021EXAMINATION: THORACIC AND LUMBAR SPINE X-RAY FINDINGS: Thoracic spine: Exam is limited due to light film technique and patient body habitus. There is mild curvature of the midthoracic spine to the right. Bone alignment is otherwise normal. No fracture or dislocation is seen. There is mild multilevel degenerative disc disease of the midthoracic spine. Paraspinal soft tissues are unremarkable. Lumbar spine: Bone alignment is normal. No fracture or dislocation is seen. Disc spaces are normal. There is lower lumbar spine facet arthritis.? XR/XR lumbar spine 2-3V IMPRESSION: No fracture or dislocation seen. Degenerative changes. Evaluation of the thoracic spine is limited due to patient body habitus.? 03/03/2021 MR LUMBAR SPINE WITHOUT CONTRAST FINDINGS: Coronal Alignment:?Normal. Sagittal Alignment:?2 mm of grade 1 spondylolisthesis at L5-S1 has developed since the previous exam. Trace retrolisthesis at L3-L4 is stable. Lumbosacral Junction: ?Normal. Vertebral Bodies: Normal height. Bone Marrow:? Large benign vertebral hemangioma in the L4 vertebral body on the left is stable. There is an 8 mm probable atypical benign hemangioma in the L3 vertebral body. No suspicious marrow replacing process or bone marrow edema. Conus Medullaris:?Terminates at L1.?Morphology and signal is normal. Intradural Nerve Roots: Within normal limits. 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 Maximum diameter is 4 mm, unchanged. SPINAL LEVELS: L5-S1: Mild loss of disc space height is noted with disc desiccation with minimal progression of disc space height loss from previous study, with development of slight anterolisthesis. There is marked facet arthropathy on the right progressed from previous study and moderate facet arthropathy on the left also slightly progressed. Right-sided facet joint effusion noted on current exam with a small synovial cyst along its posterior margin with subchondral marrow edema on both sides of the facet joint consistent with facet inflammatory changes. There is anterior and right paravertebral spondylosis and there is mild disc bulging with a superimposed right-sided foraminal disc herniation progressed from previous exam. There is mild right-sided neural foraminal stenosis without neural impingement and there is no significant canal stenosis. L4-L5: Disc space height and signal are well maintained. No significant disc bulge or herniation and no significant spondylosis. Mild facet arthrosis bilaterally noted without significant canal or neural foraminal stenosis. L3-L4: Mild loss of disc space height is noted with mild disc desiccation and slight retrolisthesis, stable in appearance. No significant disc bulge or herniation. No significant canal or neural foraminal stenosis. Minor spondylosis is unchanged. L2-L3: Disc space height and signal are well maintained without disc bulge or herniation and no significant facet arthrosis, canal or neural foraminal stenosis, stable in appearance. L1-L2: Disc space height and signal are well maintained without disc bulge or herniation and no significant spondylosis. No significant facet arthrosis, canal or neural foraminal stenosis. Paraspinal/Retroperitoneal: The paravertebral soft tissues appear unremarkable. There is a 2.9 cm probable parapelvic cyst in the mid left kidney increased in size from previous exam. A 1 cm cortical cyst lateral cortex upper pole of right kidney, unchanged. Partially imaged exophytic cortical cyst lateral cortex mid left kidney, increased in size. MR/MR lumbar spine wo con IMPRESSION: 1. Progression of facet arthropathy at L5-S1 right more the left with facet inflammatory changes on the right on the current study, with development of grade 1 spondylolisthesis with progression of disc degenerative change. Development of right foraminal disc herniation and minimal disc bulging with mild right-sided foraminal stenosis since prior exam. ? 2. Mild bilateral facet arthropathy at L4-L5, stable in appearance. ? 3. Thickened, fatty filum, consistent with a benign fibrolipoma of the filum terminale, unchanged. ? 4. Multiple bilateral renal cysts, some of which have increased in size on the left, probably unchanged from previous CT abdomen of 03/16/2019. Assessment & Plan Assessment & Plan (1) Spondylosis of lumbar joint: Code(s): M47.816 - Spondylosis without myelopathy or radiculopathy, lumbar region (2) Knee pain, left: Code(s): M25.562 - Pain in left knee Qualifiers: Chronicity: chronic Qualified Code(s): M25.562 - Pain in left knee; G89.29 - Other chronic pain (3) Low back pain: Code(s): M54.5 - Low back pain Qualifiers: Chronicity: chronic Back pain laterality: bilateral Sciatica presence: without sciatica Qualified Code(s): M54.50 - Low back pain, unspecified; G89.29 - Other chronic pain (4) Disc degeneration, lumbosacral: Code(s): M51.37 - Other intervertebral disc degeneration, lumbosacral region (5) Spondylosis of cervical spine: Code(s): M47.812 - Spondylosis without myelopathy or radiculopathy, cervical region (6) Osteoporosis: Code(s): M81.0 - Age-related osteoporosis without current pathological fracture (7) Sacroiliac joint dysfunction of left side: Code(s): M53.3 - Sacrococcygeal disorders, not elsewhere classified (8) Left hip pain: Code(s): M25.552 - Pain in left hip Plan [place]pat was reviewed and without concerns. No obvious signs of diversion, abuse or misuse of the opioid medications. Will send in prescription for oxycodone 5mg TID with an advanced date of 02/20/24 All questions and concerns have been answered and patient agrees with the plan. Follow up in 1 month, sooner if needed. Medications: Refilled oxycodone Partial Fill upon patient request. 5 mg PO TID PRN 90 tabs 0RF pain 30 days Coding Level of Care Code Est Pt Level 4 (17277) Diagnoses Spondylosis of lumbar joint M47.816 Chronic pain of left knee M25.562; G89.29 Chronicity: chronic Chronic bilateral low back pain without sciatica M54.50; G89.29 Chronicity: chronic Back pain laterality: bilateral Sciatica presence: without sciatica Disc degeneration, lumbosacral M51.37 Spondylosis of cervical spine M47.812 Osteoporosis M81.0 Sacroiliac joint dysfunction of left side M53.3 Left hip pain M25.552
== END 2024-02-09 09:55 | disposition home or self-care (01) ==
PROVIDERS: PCP Internal Medicine; Visit Provider Registered Nurse Emergency
DX: M47.816 Spondylosis without myelopathy or radiculopathy, lumbar region (principal); M25.562 Pain in left knee; G89.29 Other chronic pain; M54.50 Low back pain, unspecified; M51.37 Other intervertebral disc degeneration, lumbosacral region; M47.812 Spondylosis without myelopathy or radiculopathy, cervical region; M81.0 Age-related osteoporosis without current pathological fracture; M53.3 Sacrococcygeal disorders, not elsewhere classified; M25.552 Pain in left hip
CPT/HCPCS: 99214

== ENCOUNTER → 2024-02-09 09:31 | Outpatient (BNVA) | payer OTHER, SELFPAY | PROVIDERS: PCP Internal Medicine; Visit Provider Registered Nurse Emergency | DX: Z51.81 Encounter for therapeutic drug level monitoring (principal); F11.20 Opioid dependence, uncomplicated; M47.816 Spondylosis without myelopathy or radiculopathy, lumbar region; M25.562 Pain in left knee; M54.50 Low back pain, unspecified; M51.37 Other intervertebral disc degeneration, lumbosacral region; M47.812 Spondylosis without myelopathy or radiculopathy, cervical region; M81.0 Age-related osteoporosis without current pathological fracture; M53.3 Sacrococcygeal disorders, not elsewhere classified; M25.552 Pain in left hip; G89.29 Other chronic pain | CPT/HCPCS: 99212 ==

== ENCOUNTER 2024-02-19 08:14 | Emergency (ER) | payer OTHER, SELFPAY ==
--- NOTE | ~2024-02-19 | XR_ITS ---
EXAMINATION: XR chest 2V CLINICAL INFORMATION: Reason for Exam cough COMPARISON: 11/24/2023 TECHNIQUE: Single portable frontal view. Tubes and lines: None Lungs and pleura: Both lungs are clear. Heart and mediastinum: The mediastinum is within normal limits.. Bones/soft tissue: Skeletal structures included are normal for patient's age. XR/XR chest 2V IMPRESSION: No radiographic evidence of acute cardiopulmonary disease.
[2024-02-19 08:20] VITALS: BP 93/67; PULSE 107; RESP 18; TEMP 36.6; O2SAT 97; BMI 36.5
[2024-02-19 08:42] LABS: MANUAL DIFF FLAG NO
[2024-02-19 08:50] LABS: Basophils Percent Auto 0.4 % (0-2); Eosinophils Absolute Auto 0.1 X10*3/uL (0.0-0.4); Eosinophils Percent Auto 1.4 % (0-4); Hematocrit 35.7 % (37.0-47.0); Imm Gran Abs Auto 0.04 X10*3/uL (0.00-0.03); Imm Gran Pct Auto 0.5 % (0.0-0.4); Lymphocytes Absolute Auto 0.6 X10*3/uL (1.2-4.9); Lymphocytes Percent Auto 6.6 % (20-40); Mean Corpuscular HGB Conc 30.8 g/dl (31.0-35.0); Mean Corpuscular Hemoglobin 23.3 pg (27.0-33.0); Mean Corpuscular Volume 75.5 fL (80.0-98.0); Mean Platelet Volume 8.7 fL (9.4-12.3); Monocytes Absolute Auto 0.6 X10*3/uL (0.1-1.2); Neutrophils Absolute Auto 7.1 x10*3/uL (2.0-8.3); Neutrophils Percent Auto 84.1 % (45-73); Platelet Count 322 X10*3/uL (160-400); Red Blood Count 4.73 X10*6/uL (4.20-5.50); Red Cell Distribution Width 17.5 % (11.0-16.0); White Blood Count 8.4 X10*3/uL (4.8-10.8)
[2024-02-19 09:03] LABS: Alanine Aminotransferase 14 U/L (0-31); Albumin Level 3.7 g/dL (3.5-5.0); Alkaline Phosphatase 111 U/L (39-117); Anion Gap 13 (12-20); Aspartate Amino Transferase 21 U/L (5-31); Bilirubin Total 0.3 mg/dL (0.0-1.0); Blood Urea Nitrogen 13 mg/dL (9-16); Calcium 9.9 mg/dL (8.4-10.2); Carbon Dioxide 22 mmol/L (22-29); Chloride 107 mmol/L (96-108); Creatinine Clr Calc Pharmacy 45.1; Estimated Glomerular Filt Rate 44; Glucose Random 121 mg/dL (60-115); Potassium 4.7 mmol/L (3.3-5.1); Sodium 137 mmol/L (135-145); Total Protein 7.3 g/dL (6.5-8.0)
--- NOTE | 2024-02-19 09:23 | ED.URI ---
HPI - URI/Sore Throat General Chief Complaint: Upper Respiratory Symptoms Stated Complaint: ? covid, nausea, cough, headache Time Seen by Provider: 02/19/24 09:04 Source: patient and family Mode of arrival: ambulatory Limitations: no limitations History of Present Illness HPI Narrative: This is a 54-year-old female past medical history of tracheomalacia, iron deficiency, asthma, IBS, COPD, BABATUNDE, obesity, TIA, sleep apnea, pulmonary embolism on Eliquis presenting to the emergency department for evaluation of fatigue, malaise, myalgias, cough, diarrhea, nausea, vomiting all the symptoms have gone on for the past few days (4 days) however yesterday she tested positive for COVID. She is here because she thinks she is dehydrated and is requesting an IV because her mouth is dry. She is tolerating p.o.. She last took Tylenol at 07:30 this morning. She is here with her who has similar symptoms. Reports chest discomfort with cough and shortness of breath with cough. Denies it at rest. Denies headache, vision changes, dizziness and weakness. Related Data Home Medications ?Medication ?Instructions ?Recorded ?Confirmed montelukast 10 mg tablet 10 mg PO BEDTIME 08/02/20 01/26/24 cyanocobalamin (vitamin B-12) 1,000 mcg PO DAILY 11/05/20 01/26/24 1,000 mcg tablet escitalopram oxalate 10 mg tablet 1 tab PO DAILY 08/21/22 01/26/24 cholecalciferol (vitamin D3) 25 1 tab PO DAILY 11/28/22 01/26/24 mcg (1,000 unit) tablet valsartan 160 mg tablet 1 tab PO DAILY 11/28/22 01/26/24 betamethasone dipropionate 0.05 % 1 appl topical BID PRN psoriasis 02/12/23 01/26/24 lotion blood sugar diagnostic (FreeStyle #10 ea 02/12/23 01/26/24 Lite Strips) calcipotriene 0.005 % topical 1 appl topical BID PRN flares 02/12/23 01/26/24 ointment fluocinonide 0.05 % topical 1 appl topical BID PRN flares 02/12/23 01/26/24 ointment fluticasone propionate 50 50 mcg intranasal DAILY 02/12/23 01/26/24 mcg/actuation nasal spray,suspension hydroxyzine HCl 25 mg tablet 25 mg PO TID PRN itch 02/12/23 01/26/24 nebulizers 04/02/23 01/26/24 loratadine 10 mg tablet 10 mg PO DAILY 08/22/23 01/26/24 quetiapine 400 mg tablet 400 mg PO BEDTIME 08/22/23 01/26/24 ferrous sulfate 325 mg (65 mg 325 mg PO DAILY 11/08/23 01/26/24 iron) tablet lorazepam 0.5 mg tablet 0.25 mg PO .every other day PRN 11/10/23 01/26/24 Anxiety zolpidem 10 mg tablet 10 mg PO BEDTIME Insomnia 11/22/23 01/26/24 blood-glucose meter (FreeStyle #1 ea 12/08/23 01/26/24 [place] Lite kit) lancets 28 gauge (FreeStyle #100 ea 12/08/23 01/26/24 Lancets) Previous Rx's ?Medication ?Instructions ?Recorded dicyclomine 20 mg tablet 20 mg PO QID PRN abdominal pain 06/27/22 #20 tabs ondansetron 4 mg disintegrating 4 mg PO TID PRN nausea and 11/27/22 tablet vomiting 5 days #20 tabs zinc acetate 50 mg (zinc) capsule 100 mg (2 x 50 mg (zinc)) PO DAILY 12/02/22 (Galzin) 30 days #60 caps naloxone 4 mg/actuation nasal spray 4 mg intranasal Q2M PRN opioid 02/24/23 overdose 1 day #2 ea immune glob,gamm(IgG) 10 %-pro-IgA 40 g IV Q4W #400 mL 05/28/23 0 to 50 mcg/mL intravenous solution (Privigen) acetaminophen 500 mg tablet 500 mg PO Q6H PRN pain #20 tabs 06/09/23 polyethylene glycol 3350 17 gram 17 g PO DAILY #30 ea 08/25/23 oral powder packet albuterol sulfate 2.5 mg/3 mL 2.5 mg (3 mL) inhalation Q4H PRN 09/02/23 (0.083 %) solution for nebulization shortness of breath or wheezing 30 days #360 mL albuterol sulfate 90 mcg/actuation 2 puff inhalation QID PRN 09/02/23 aerosol inhaler (Ventolin HFA) shortness of breath or wheezing 30 days #18 grams budesonide 160 mcg-glycopyr 9 2 inh inhalation BID 30 days #10.7 09/02/23 mcg-formot 4.8 mcg/actuation HFA grams inhaler (Breztri Aerosphere) lidocaine 5 % topical patch 1 patch topical BID #30 ea 09/21/23 meclizine 25 mg tablet 25 mg PO TID PRN dizziness #20 tabs 10/15/23 apixaban 2.5 mg tablet (Eliquis) 2.5 mg PO BID #180 tabs 11/09/23 benzonatate 200 mg capsule 200 mg PO TID PRN cough 30 days 11/22/23 #90 caps gabapentin 300 mg capsule 600 mg (2 x 300 mg) PO BID 90 days 12/08/23 #360 caps omeprazole 40 mg capsule,delayed 40 mg PO BID Acid Reflux #180 caps 12/08/23 release sucralfate 100 mg/mL oral 10 ml PO QIDACHS #1,000 mL 12/08/23 suspension chlorpheniramine maleate 4 mg 4 mg PO Q6H PRN itching 30 days 12/24/23 tablet #90 tabs oxycodone 5 mg tablet 5 mg PO TID PRN pain 30 days #90 02/09/24 tabs albuterol sulfate 90 mcg/actuation 2 inh inhalation Q4-6H PRN 02/19/24 breath activated powder inhaler shortness of breath or wheezing #1 ea loperamide 2 mg capsule 2 mg PO Q6H PRN loose stool #20 02/19/24 caps ondansetron 4 mg disintegrating 4 mg PO Q6H PRN nausea and 02/19/24 tablet vomiting #14 tabs Allergies Allergy/AdvReac Type Severity Reaction Status Date / Time No Known Allergies Allergy Verified 02/19/24 08:24 Review of Systems Review of Systems: Yes all other systems are reviewed and are negative PMFSH Past Medical History Attestation statement: The following information was validated with the patient. 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 Dizziness Headache Elevated lactic acid level Bronchitis Headache, migraine Asthma exacerbation Cough BABATUNDE (obstructive sleep apnea) Chronic pain syndrome Spondylosis of lumbar spine Low back pain Complex regional pain syndrome i of left lower limb Diabetic neuropathy Laryngotracheitis Essential hypertension Type 2 diabetes mellitus with unspecified complications Morbid obesity Anemia Back pain Pleuritic chest pain Fibromyalgia Hypothyroidism TIA (transient ischemic attack) Diet-controlled diabetes mellitus Depression Arthritis Sleep apnea Hypogammaglobulinemia Pulmonary embolism Surgical History History of esophagogastroduodenoscopy (EGD) Hx of colonoscopy S/P total abdominal hysterectomy History of cholecystectomy History of bariatric surgery Family History Family History Mother Diabetes Stroke Family/Other Diabetes Father Diabetes Maternal Aunt Cancer Social History Social History Household Members: None Housing: Apartment Are you a primary md do resident urgent care to a significant other at home: No Do you presently have visiting nurse or other home services: No ([employer]) Alcohol intake: never Patient Tobacco Use Status: Never used Tobacco Smoked in Last 30 Days: No e-Cigarette/Vaping Use: Never Used Second Hand Smoke Exposure: No Use of substances other than those prescribed or required for medical reasons: No Substance Use Type: Opiates Advance Directives: No Advance Directives Date on File: 05/23/21 service: No Current occupational status: unemployed and disabled Physical Exam Vital Signs: Vital Signs: Last Vital Signs Temp 97.9 F 02/19/24 08:20 Pulse 107 H 02/19/24 08:20 Resp 18 02/19/24 08:20 BP 93/67 02/19/24 08:20 Pulse Ox 97 02/19/24 08:20 O2 Del Method Room Air 02/19/24 08:20 BMI result Body Mass Index 36.5 vss Appearance: Alert.? Oriented X3.? No acute distress.? Head: Normocephalic, atraumatic, no step-offs or deformities Eyes: Pupils equal, round and reactive to light.? Neck: Normal inspection.? Neck supple.? CVS: Normal heart rate and rhythm.? Pulses normal.? Respiratory: No respiratory distress.? Breath sounds normal.? Abdomen: Soft and nontender.? Skin: Skin warm and dry.? Normal skin color.? Normal skin turgor.? Extremities: No lower extremity edema.? No calf ttp. 5/5 strength to bilateral upper and lower extremities Neuro: Oriented X 3.? No motor deficit.? No sensory deficit. CN 2-12 intact Course Reevaluation(s) Reevaluation #1: Patient out of the window to initiate Tamiflu. She is positive for COVID. This was suspected as patient's is COVID positive. Patient to be discharged home with supportive measures Nursing will use machine filler servicer to go over discharge Educated patient on diagnosis and treatment plan, answered all question, patient verbalizes understanding. At this time patient will be discharged home, advised to return with new or worsening symptoms. Educated on worrisome signs and symptoms and when to return. At this time I feel comfortable discharge home. Time: 09:28 Reevaluation #2: CBC unremarkable. Chemistry unremarkable. Patient COVID positive. Chest x-ray pending. Chest would not change disposition. Time: 09:35 Medical Decision Making Medical Decision Making [facility] Narrative: [id number] 54-year-old female presents with COVID like symptoms, COVID positive Physical exam benign. History and physical exam concerning for flu versus COVID versus RSV versus bronchitis. Unlikely pneumonia, PE, ACS, dissection. No signs of acute respiratory distress. Nausea is likely secondary to viral illness. I do not suspect acute abdomen. Plan viral testing. Nursing ordered labs and chest x-ray. Differential Diagnosis Differential Diagnoses: The differential diagnosis associated with the presentation includes History and physical exam concerning for flu versus COVID versus RSV versus bronchitis. Unlikely pneumonia, PE, ACS, dissection. No signs of acute respiratory distress. Nausea is likely secondary to viral illness. I do not suspect acute abdomen. Admission/Observation Consideration of admission/observation: Escalation of care including admission/observation considered Lab Data [facility] Lab Attestation statement: I reviewed the patient's lab results. 02/19/24 08:32 02/19/24 08:32 Labs: Lab Results 04/20/24 Range/Units 08:32 WBC 8.4 (4.8-10.8) X10*3/uL RBC 4.73 (4.20-5.50) X10*6/uL Hgb 11.0 L (12.0-16.0) g/dl Hct 35.7 L (37.0-47.0) % MCV 75.5 L (80.0-98.0) fL MCH 23.3 L (27.0-33.0) pg MCHC 30.8 L (31.0-35.0) g/dl RDW 17.5 H (11.0-16.0) % Plt Count 322 (160-400) X10*3/uL MPV 8.7 L (9.4-12.3) fL Immature Gran % (Auto) 0.5 H (0.0-0.4) % Neut % (Auto) 84.1 H (45-73) % Lymph % (Auto) 6.6 L (20-40) % Mcculloch % (Auto) 7.0 (2-11) % Eos % (Auto) 1.4 (0-4) % Baso % (Auto) 0.4 (0-2) % Lymph # (Auto) 0.6 L (1.2-4.9) X10*3/uL Mcculloch # (Auto) 0.6 (0.1-1.2) X10*3/uL Eos # (Auto) 0.1 (0.0-0.4) X10*3/uL Baso # (Auto) 0.0 (0.0-0.2) X10*3/uL Abs Immat Gran (auto) 0.04 H (0.00-0.03) X10*3/uL Absolute Neuts (auto) 7.1 (2.0-8.3) x10*3/uL Absolute Nucleated RBC 0.000 (0.0-0.012) X10*3/uL Nucleated RBC % (auto) 0.0 (0.0-0.2) /100WBC Sodium 137 (135-145) mmol/L Potassium 4.7 (3.3-5.1) mmol/L Chloride 107 (96-108) mmol/L Carbon Dioxide 22 (22-29) mmol/L Anion Gap 13 (12-20) BUN 13 (9-16) mg/dL Creatinine 1.25 (0.5-1.4) mg/dL Estim Creat Clear Calc 45.1 Estimated GFR 44 Random Glucose 121 H (60-115) mg/dL Calcium 9.9 (8.4-10.2) mg/dL Total Bilirubin 0.3 (0.0-1.0) mg/dL AST 21 (5-31) U/L ALT 14 (0-31) U/L Alkaline Phosphatase 111 (39-117) U/L Total Protein 7.3 (6.5-8.0) g/dL Albumin 3.7 (3.5-5.0) g/dL Influenza Type A (PCR) NEGATIVE (Negative) Influenza Type B (PCR) NEGATIVE (Negative) RSV RNA Qual (PCR) NEGATIVE (Negative) SARS-CoV-2 RNA (RT-PCR) POSITIVE A (Negative) Independent Interpretation I performed an independent interpretation of an: Plain X-Ray Radiology Impression Discussion of test interpretation with radiology: I have reviewed the radiologist's reading. External Record Review External record reviewed: Inpatient record, Office record, Outpatient record, Prior outpatient labs, Prior outpatient radiology, Primary care record and Outside ED record Critical Care Time Critical Care Time Critical Care Time: No Discharge Plan Discharge Clinical Impression: COVID-19 Patient Disposition: Home, Self-Care Instructions: COVID-19 (Coronavirus Disease 2019) (ED) Additional Instructions: Take your medications as prescribed. If you were prescribed antibiotics today, it is important that you take your medication to their entirety, do not skip any doses, do not finish them early. Today you tested positive for COVID-19. Take Ibuprofen or Tylenol as needed for fevers or body aches. Quarantine for 5 days and ensure you wear a mask. After 5 days you should wear a mask for 5 days after that. Practice social distancing and good hand hygiene. Drink plenty of fluids. Follow-up with your primary care provider this week. Return to the emergency department with new or worsening symptoms. In case of emergency call 911 You can purchase a pulse oximeter from your local pharmacy or grocery store, and monitor your oxygen saturation if it goes below 94% you should return to the emergency department for further evaluation. Prescriptions: New loperamide 2 mg capsule 2 mg PO Q6H PRN (Reason: loose stool) Qty: 20 0RF ondansetron 4 mg tablet,disintegrating 4 mg PO Q6H PRN (Reason: nausea and vomiting) Qty: 14 0RF albuterol sulfate 90 mcg/actuation aerosol powdr breath activated 2 inh inhalation Q4-6H PRN (Reason: shortness of breath or wheezing) Qty: 1 0RF No Action ondansetron 4 mg tablet,disintegrating 4 mg PO TID PRN (Reason: nausea and vomiting) 5 Days Qty: 20 0RF Galzin 50 mg (zinc) capsule 100 mg PO DAILY 30 Days Qty: 60 1RF Privigen 10 % solution 40 g IV Q4W Qty: 400 11RF Rx Instructions: PER PATIENT, NEXT DOSE ~08/25/23 albuterol sulfate 2.5 mg /3 mL (0.083 %) solution for nebulization 2.5 mg inhalation Q4H PRN (Reason: shortness of breath or wheezing) 30 Days Qty: 360 11RF albuterol sulfate [Ventolin HFA] 90 mcg/actuation HFA aerosol inhaler 2 puff inhalation QID PRN (Reason: shortness of breath or wheezing) 30 Days Qty: 18 11RF Breztri Aerosphere 160-9-4.8 mcg/actuation HFA aerosol inhaler 2 inh inhalation BID 30 Days Qty: 10.7 11RF lidocaine 5 % adhesive patch,medicated 1 patch topical BID Qty: 30 6RF Rx Instructions: leave on most painful area for up to 12 hrs lorazepam 0.5 mg tablet 0.25 mg PO .every other day PRN (Reason: Anxiety) gabapentin 300 mg capsule 600 mg PO BID 90 Days Qty: 360 3RF montelukast 10 mg tablet 10 mg PO BEDTIME Eliquis 2.5 mg Tablet 2.5 mg PO BID Qty: 180 0RF dicyclomine 20 mg tablet 20 mg PO QID PRN (Reason: abdominal pain) Qty: 20 0RF escitalopram oxalate 10 mg tablet 1 tab PO DAILY zolpidem 10 mg tablet 10 mg PO BEDTIME valsartan 160 mg tablet 1 tab PO DAILY cholecalciferol (vitamin D3) 25 mcg (1,000 unit) tablet 1 tab PO DAILY acetaminophen 500 mg tablet 500 mg PO Q6H PRN (Reason: pain) Qty: 20 0RF meclizine 25 mg tablet 25 mg PO TID PRN (Reason: dizziness) Qty: 20 0RF loratadine 10 mg tablet 10 mg PO DAILY quetiapine 400 mg tablet 400 mg PO BEDTIME polyethylene glycol 3350 17 gram Powder In Packet 17 g PO DAILY Qty: 30 0RF cyanocobalamin (vitamin B-12) 1,000 mcg tablet 1,000 mcg PO DAILY (DME) FreeStyle Lite Strips Strip See Rx Instructions .ROUTE BID Qty: 10 Rx Instructions: As directed betamethasone dipropionate 0.05 % lotion 1 appl topical BID PRN (Reason: psoriasis) Rx Instructions: apply to scalp calcipotriene 0.005 % ointment 1 appl topical BID PRN (Reason: flares) hydroxyzine HCl 25 mg tablet 25 mg PO TID PRN (Reason: itch) fluocinonide 0.05 % ointment 1 appl topical BID PRN (Reason: flares) fluticasone propionate 50 mcg/actuation spray,suspension 50 mcg intranasal DAILY Rx Instructions: 1 spray into each nostril (DME) nebulizers Misc See Rx Instructions .Route Rx Instructions: As directed naloxone 4 mg/actuation spray,non-aerosol 4 mg intranasal Q2M PRN (Reason: opioid overdose) 1 Days Qty: 2 2RF Rx Instructions: spray 1 dose into ONE nostril; alternate nostrils w each dose until help arrives benzonatate 200 mg capsule 200 mg PO TID PRN (Reason: cough) 30 Days Qty: 90 3RF ferrous sulfate 325 mg (65 mg iron) tablet 325 mg PO DAILY omeprazole 40 mg capsule,delayed release(DR/EC) 40 mg PO BID Qty: 180 0RF sucralfate 100 mg/mL suspension 10 ml PO QIDACHS Qty: 1000 1RF (DME) blood-glucose meter [FreeStyle [place] Lite] Kit See Rx Instructions .ROUTE .MEDSUPPLY Qty: 1 Rx Instructions: As directed (DME) lancets [FreeStyle Lancets] 28 gauge misc See Rx Instructions .ROUTE BID Qty: 100 Rx Instructions: As directed chlorpheniramine maleate 4 mg tablet 4 mg PO Q6H PRN (Reason: itching) 30 Days Qty: 90 6RF oxycodone 5 mg tablet 5 mg PO TID PRN (Reason: pain) 30 Days Qty: 90 0RF Rx Instructions: Partial Fill upon patient request. Referrals: Claudia Villatoro MD [Primary Care Provider] - 2 days Stand Alone Forms: Work/School Release Print Language: Vietnamese
[2024-02-19 09:24] LABS: Influenza A PCR NEGATIVE (Negative); Influenza B PCR NEGATIVE (Negative); Resp Syncy Virus RNA Qual PCR NEGATIVE (Negative); SARS COV2 PCR INHOUSE POSITIVE (Negative)
[2024-02-19 09:37] VITALS: BP 93/67; PULSE 107; RESP 18; TEMP 36.6; O2SAT 97
--- NOTE | 2024-02-19 09:37 | PC.NURSE ---
per larisa mcfarlane no new VS needed prior to d/c . no resp distress.
== END 2024-02-19 09:36 | disposition home or self-care (01) ==
PROVIDERS: Emergency Provider Emergency Medicine; PCP Internal Medicine
DX: U07.1 COVID-19 (principal); E11.9 Type 2 diabetes mellitus without complications; I10 Essential (primary) hypertension
CPT/HCPCS: 0241U; 71046; 80053; 85025; 99283; 99284

== ENCOUNTER 2024-02-27 09:51 | Emergency (ER) | payer OTHER, SELFPAY ==
--- NOTE | ~2024-02-27 | CT_ITS ---
EXAMINATION: CT ABDOMEN AND PELVIS WITH CONTRAST CLINICAL INFORMATION: Diffuse abdominal pain, tender to palpation, nausea COMPARISON: CT abdomen and pelvis 08/22/2023 TECHNIQUE: Multidetector volumetric images were obtained from the superior aspect of the liver through the pubic symphysis following administration 85 mL of Omnipaque 350 intravenous contrast. Sagittal and coronal reformatted images were obtained on the technologist's workstation. Oral contrast: No This CT examination was performed using dose optimization techniques as appropriate, variously including the following: *Automated exposure control *Adjustment of mA and/or kV according to patient size (this includes techniques or standardized protocols for targeted exams where dose is matched to indication/reason for exam; i.e. extremities or head) *Use of iterative reconstruction technique DLP: 671 mGy-cm FINDINGS: LUNG BASES: Calcified granuloma in the right lung base. ABDOMINAL AND PELVIC WALL: Unremarkable. LIVER AND BILIARY TREE: Unremarkable. GALLBLADDER: Status post cholecystectomy. PANCREAS: Unremarkable. SPLEEN: Unremarkable. ADRENAL GLANDS: Unremarkable. KIDNEYS AND URETERS: Bosniak 1 and 2 renal cysts, no imaging follow-up recommended. GASTROINTESTINAL TRACT: Postsurgical changes of [place]-en-Y gastric bypass. Colonic diverticulosis without evidence of diverticulitis. Small bowel surgical anastomosis. Normal appendix. VASCULAR: Unremarkable. LYMPH NODES/PERITONEUM: No lymphadenopathy. FREE FLUID: None. BLADDER: Unremarkable. PELVIC VISCERA: Uterus is atrophic or absent. OSSEOUS STRUCTURES: L4 hemangioma. Again seen is serpiginous sclerosis in the left femoral head which could be seen in setting of avascular necrosis. No femoral head collapse. Few bone islands in the pelvis unchanged. CT/CT abdomen pelvis w IV con IMPRESSION: 1. No acute findings to explain symptoms of abdominal pain. 2. Again seen is serpiginous sclerosis in the left femoral head which could be seen in setting of avascular necrosis. No femoral head collapse.
--- NOTE | 2024-02-27 10:01 | ED_ITS ---
HPI - Abdominal Pain General Chief Complaint: Abdominal Pain Stated Complaint: Covid positive Time Seen by Provider: 02/27/24 10:05 Source: patient Mode of arrival: ambulatory Limitations: language barrier ( Azerbaijani-speaking skiver welt end utilized) History of Present Illness HPI narrative: Patient is a 54-year-old female who presents to the emergency department for evaluation. She reports that she tested positive for COVID - 19 8 days ago, denies any treatment with Paxlovid, she had been pushing oral fluids. She presents emergency department today to be evaluated for abdominal pain. She reports that she had diffuse lower abdominal pain that began this morning, she is also noticed pain/ dysuria upon urination. She has associated nausea but no vomiting. She denies any hematuria, fevers, chills. She endorses chronic constipation, and reports that she has not had a bowel movement for 1 week despite the use her laxatives. She denies any prior hematochezia or melena. Denies any recent antibiotic usage. Denies any history of bowel obstruction or diverticulitis. Related Data Home Medications ?Medication ?Instructions ?Recorded ?Confirmed montelukast 10 mg tablet 10 mg PO BEDTIME 08/02/20 01/26/24 cyanocobalamin (vitamin B-12) 1,000 mcg PO DAILY 11/05/20 01/26/24 1,000 mcg tablet escitalopram oxalate 10 mg tablet 1 tab PO DAILY 08/21/22 01/26/24 cholecalciferol (vitamin D3) 25 1 tab PO DAILY 11/28/22 01/26/24 mcg (1,000 unit) tablet valsartan 160 mg tablet 1 tab PO DAILY 11/28/22 01/26/24 betamethasone dipropionate 0.05 % 1 appl topical BID PRN psoriasis 02/12/23 01/26/24 lotion blood sugar diagnostic (FreeStyle #10 ea 02/12/23 01/26/24 Lite Strips) calcipotriene 0.005 % topical 1 appl topical BID PRN flares 02/12/23 01/26/24 ointment fluocinonide 0.05 % topical 1 appl topical BID PRN flares 02/12/23 01/26/24 ointment fluticasone propionate 50 50 mcg intranasal DAILY 02/12/23 01/26/24 mcg/actuation nasal spray,suspension hydroxyzine HCl 25 mg tablet 25 mg PO TID PRN itch 02/12/23 01/26/24 nebulizers 04/02/23 01/26/24 loratadine 10 mg tablet 10 mg PO DAILY 08/22/23 01/26/24 quetiapine 400 mg tablet 400 mg PO BEDTIME 08/22/23 01/26/24 ferrous sulfate 325 mg (65 mg 325 mg PO DAILY 11/08/23 01/26/24 iron) tablet lorazepam 0.5 mg tablet 0.25 mg PO .every other day PRN 11/10/23 01/26/24 Anxiety zolpidem 10 mg tablet 10 mg PO BEDTIME Insomnia 11/22/23 01/26/24 blood-glucose meter (FreeStyle #1 ea 12/08/23 01/26/24 Jean Lite kit) lancets 28 gauge (FreeStyle #100 ea 12/08/23 01/26/24 Lancets) Previous Rx's ?Medication ?Instructions ?Recorded dicyclomine 20 mg tablet 20 mg PO QID PRN abdominal pain 06/27/22 #20 tabs ondansetron 4 mg disintegrating 4 mg PO TID PRN nausea and 11/27/22 tablet vomiting 5 days #20 tabs zinc acetate 50 mg (zinc) capsule 100 mg (2 x 50 mg (zinc)) PO DAILY 12/02/22 (Galzin) 30 days #60 caps naloxone 4 mg/actuation nasal spray 4 mg intranasal Q2M PRN opioid 02/24/23 overdose 1 day #2 ea immune glob,gamm(IgG) 10 %-pro-IgA 40 g IV Q4W #400 mL 05/28/23 0 to 50 mcg/mL intravenous solution (Privigen) acetaminophen 500 mg tablet 500 mg PO Q6H PRN pain #20 tabs 06/09/23 polyethylene glycol 3350 17 gram 17 g PO DAILY #30 ea 08/25/23 oral powder packet albuterol sulfate 2.5 mg/3 mL 2.5 mg (3 mL) inhalation Q4H PRN 09/02/23 (0.083 %) solution for nebulization shortness of breath or wheezing 30 days #360 mL albuterol sulfate 90 mcg/actuation 2 puff inhalation QID PRN 09/02/23 aerosol inhaler (Ventolin HFA) shortness of breath or wheezing 30 days #18 grams budesonide 160 mcg-glycopyr 9 2 inh inhalation BID 30 days #10.7 09/02/23 mcg-formot 4.8 mcg/actuation HFA grams inhaler (Breztri Aerosphere) lidocaine 5 % topical patch 1 patch topical BID #30 ea 09/21/23 meclizine 25 mg tablet 25 mg PO TID PRN dizziness #20 tabs 10/15/23 apixaban 2.5 mg tablet (Eliquis) 2.5 mg PO BID #180 tabs 11/09/23 benzonatate 200 mg capsule 200 mg PO TID PRN cough 30 days 11/22/23 #90 caps gabapentin 300 mg capsule 600 mg (2 x 300 mg) PO BID 90 days 12/08/23 #360 caps omeprazole 40 mg capsule,delayed 40 mg PO BID Acid Reflux #180 caps 12/08/23 release sucralfate 100 mg/mL oral 10 ml PO QIDACHS #1,000 mL 12/08/23 suspension chlorpheniramine maleate 4 mg 4 mg PO Q6H PRN itching 30 days 12/24/23 tablet #90 tabs oxycodone 5 mg tablet 5 mg PO TID PRN pain 30 days #90 02/09/24 tabs albuterol sulfate 90 mcg/actuation 2 inh inhalation Q4-6H PRN 02/19/24 breath activated powder inhaler shortness of breath or wheezing #1 ea loperamide 2 mg capsule 2 mg PO Q6H PRN loose stool #20 02/19/24 caps ondansetron 4 mg disintegrating 4 mg PO Q6H PRN nausea and 02/19/24 tablet vomiting #14 tabs benzonatate 200 mg capsule 200 mg PO TID PRN cough #20 caps 02/27/24 cefuroxime axetil 250 mg tablet 250 mg PO BID #14 tabs 02/27/24 Allergies Allergy/AdvReac Type Severity Reaction Status Date / Time No Known Allergies Allergy Verified 02/27/24 10:06 Review of Systems Review of Systems Yes all other systems are reviewed and are negative [facility] Past Medical History Attestation statement: The following information was validated with the patient. 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 Dizziness Headache Elevated lactic acid level Bronchitis Headache, migraine Asthma exacerbation Cough BABATUNDE (obstructive sleep apnea) Chronic pain syndrome Spondylosis of lumbar spine Low back pain Complex regional pain syndrome i of left lower limb Diabetic neuropathy Laryngotracheitis Essential hypertension Type 2 diabetes mellitus with unspecified complications Morbid obesity Anemia Back pain Pleuritic chest pain Fibromyalgia Hypothyroidism TIA (transient ischemic attack) Diet-controlled diabetes mellitus Depression Arthritis Sleep apnea Hypogammaglobulinemia Pulmonary embolism Surgical History History of esophagogastroduodenoscopy (EGD) Hx of colonoscopy S/P total abdominal hysterectomy History of cholecystectomy History of bariatric surgery Family History Family History Mother Diabetes Stroke Family/Other Diabetes Father Diabetes Maternal Aunt Cancer Social History Social History Household Members: None Housing: Apartment Are you a primary healthcare insurance sales agent to a significant other at home: No Do you presently have visiting nurse or other home services: No ([employer]) Alcohol intake: never Patient Tobacco Use Status: Never used Tobacco Smoked in Last 30 Days: No e-Cigarette/Vaping Use: Never Used Second Hand Smoke Exposure: No Use of substances other than those prescribed or required for medical reasons: No Substance Use Type: Opiates Advance Directives: No Advance Directives Information Provided: Yes Advance Directives Date on File: 05/23/21 service: No Current occupational status: unemployed and disabled Physical Exam ED Vital Signs: Vital Signs - 24 hr 02/27/24 10:03 02/27/24 15:02 02/27/24 16:02 Temperature 98.4 F 98.9 F 98.9 F Pulse Rate 65 67 67 Respiratory Rate 16 18 18 Blood Pressure 121/45 L 115/57 L 115/57 L Pulse Oximetry 99 100 100 Oxygen Delivery Method Room Air Room Air Room Air BMI result Body Mass Index 35.9 Appearance: Alert.?Oriented to person, place and time. No acute distress.?Normal affect. Eyes: Pupils equal, round and reactive to light.? ENT: Pharynx normal.?? Neck: Normal inspection.? Neck supple.?? CVS: Heart sounds normal. Normal heart rate and rhythm.? Pulses normal.?? Respiratory: No respiratory distress.? Lung sounds rhonchi bilaterally? Abdomen: Soft with diffuse lower abdominal tenderness and right upper quadrant tenderness upon palpation. Hypoactive bowel sounds. No pulsatile mass.?? Skin: Skin warm and dry.? Normal skin color.? Extremities: No lower extremity edema.? Neuro: Moves all extremities spontaneously. Sensation intact bilaterally. CN II- XII intact. No focal neuro deficits. Ambulates with normal steady gait. Course Reevaluation(s) Reevaluation #1: Urinalysis with 2+ leukocyte esterase and urine WBCs in addition to squamous epithelial cells, no urine bacteria seen however she is currently reporting dysuria and pressure upon urination with onset this morning, will treat possible early urinary tract infection. She is noted to have a significant cough, I suspect that there may be a component of her abdominal pain that is muscular in nature due to this excessive coughing. She admits that she has ran out of her Tessalon Perles and is requesting an additional prescription which I feel is reasonable. CT of her abdomen and pelvis is without any acute findings. These results were discussed with patient at length. Recommend outpatient follow-up with primary care provider for any persistent symptoms. Time: 15:47 Medical Decision Making Medical Decision Making MDM Narrative: patient is a 54-year-old female with past medical history of tracheomalacia, asthma COPD overlap syndrome, BABATUNDE, pulmonary embolism anticoagulated on Eliquis, constipation, osteoporosis, type 2 diabetes with neuropathy, hypertension, anemia, fibromyalgia, hypothyroidism, TIA, hypogammaglobulinemia who presents emergency department today for evaluation of abdominal pain as per HPI. she has exquisite tenderness upon palpation of the lower abdomen diffusely as well as the right upper quadrant. Will obtain CBC to evaluate for leukocytosis/ anemia, CMP and lipase to evaluate for abnormal electrolytes /abnormal renal function/ abnormal hepatic/biliary function, CT AP and Urinalysis. Differential Diagnosis Differential Diagnoses: The differential diagnosis associated with the presentation includes ( gastroenteritis, diverticulitis, hydronephrosis, pyelonephritis, obstruction, cholecystitis, cholelithiasis, appendicitis) Admission/Observation Consideration of admission/observation: Escalation of care including admission/observation considered Lab Data MDM Lab Attestation statement: I reviewed the patient's lab results. CBC is without leukocytosis, microcytic anemia that is consistent with baseline and does not meet transfusion criteria. No electrolyte derangement. No JF. Transaminases within normal range, lipase within normal range. 02/27/24 10:17 02/27/24 10:17 Labs: Lab Results 02/27/24 02/27/24 Range/Units 10:17 10:24 WBC 9.2 (4.8-10.8) X10*3/uL RBC 4.29 (4.20-5.50) X10*6/uL Hgb 10.1 L (12.0-16.0) g/dl Hct 32.6 L (37.0-47.0) % MCV 76.0 L (80.0-98.0) fL MCH 23.5 L (27.0-33.0) pg MCHC 31.0 (31.0-35.0) g/dl RDW 17.4 H (11.0-16.0) % Plt Count 373 (160-400) X10*3/uL MPV 9.2 L (9.4-12.3) fL Immature Gran % (Auto) 0.5 H (0.0-0.4) % Neut % (Auto) 55.4 (45-73) % Lymph % (Auto) 35.5 (20-40) % Rogers % (Auto) 6.0 (2-11) % Eos % (Auto) 2.2 (0-4) % Baso % (Auto) 0.4 (0-2) % Lymph # (Auto) 3.3 (1.2-4.9) X10*3/uL Rogers # (Auto) 0.6 (0.1-1.2) X10*3/uL Eos # (Auto) 0.2 (0.0-0.4) X10*3/uL Baso # (Auto) 0.0 (0.0-0.2) X10*3/uL Abs Immat Gran (auto) 0.05 H (0.00-0.03) X10*3/uL Absolute Neuts (auto) 5.1 (2.0-8.3) x10*3/uL Absolute Nucleated RBC 0.000 (0.0-0.012) X10*3/uL Nucleated RBC % (auto) 0.0 (0.0-0.2) /100WBC Sodium 138 (135-145) mmol/L Potassium 3.8 (3.3-5.1) mmol/L Chloride 104 (96-108) mmol/L Carbon Dioxide 25 (22-29) mmol/L Anion Gap 13 (12-20) BUN 19 H (9-16) mg/dL Creatinine 1.03 (0.5-1.4) mg/dL Estim Creat Clear Calc 54.2 Estimated GFR 56 Random Glucose 79 (60-115) mg/dL Calcium 9.2 D (8.4-10.2) mg/dL Magnesium 2.0 (1.6-2.6) mg/dL Total Bilirubin 0.2 (0.0-1.0) mg/dL AST 23 (5-31) U/L ALT 13 (0-31) U/L Alkaline Phosphatase 99 (39-117) U/L Total Protein 6.4 L (6.5-8.0) g/dL Albumin 3.4 L (3.5-5.0) g/dL Lipase 40 (8-78) U/L Urine Color Yellow Urine Appearance Clear Urine pH 6.0 (5.0-9.0) Ur Specific Prosperity 1.025 (1.005-1.025) Urine Protein Negative (Neg-Trace) mg/dL Urine Glucose (UA) Negative (Negative) mg/dL Urine Ketones Negative (Negative) mg/dL Urine Blood Negative (Negative) Urine Nitrite Negative (Negative) Ur Leukocyte Esterase Moderate (2+) H (Negative) Urine RBC 0-2 (0-2) /HPF Urine WBC 21-50 H (0-5) /HPF Ur Squamous Epith Cells 6-10 (0-2) /HPF Urine Bacteria None Seen (None Seen) Hyaline Casts 0-2 (0-2) /LPF Independent Interpretation I performed an independent interpretation of an: CT Scan ( Diverticulitis, constipation) Radiology Impression Discussion of test interpretation with radiology: I have reviewed the radiologist's reading. Radiologist Impression: CT/CT abdomen pelvis w IV con IMPRESSION: 1. No acute findings to explain symptoms of abdominal pain. 2. Again seen is serpiginous sclerosis in the left femoral head which could be seen in setting of avascular necrosis. No femoral head collapse. External Record Review External record reviewed: Outpatient record Medications Administered Discontinued Medications Generic Name Dose Route Start Last Admin Trade Name Freq PRN Reason Stop Dose Admin Acetaminophen 975 mg 02/27/24 15:58 02/27/24 16:02 Acetaminophen 325 Mg Tablet PO 02/27/24 15:59 975 mg ONCE ONE Administration Sodium Chloride 1,000 mls @ 999 mls/hr 02/27/24 10:15 02/27/24 14:46 Ns IV 02/27/24 11:15 Infused .Q1H1M OMERO Infusion Iohexol 100 ml 02/27/24 12:13 02/27/24 12:13 Iohexol 350 Mg/Ml 100 Ml Infus..Btl IV 02/27/24 12:14 85 ml ONCE ONE Administration Morphine Sulfate 4 mg 02/27/24 10:06 02/27/24 10:52 Morphine Sulfate 4 Mg/Ml Cartridge IVPUSH 02/27/24 10:07 4 mg ONCE ONE Administration Protocol Ondansetron HCl 4 mg 02/27/24 10:06 02/27/24 10:52 Ondansetron Hcl 4 Mg/2 Ml Vial IVPUSH 02/27/24 10:07 4 mg ONCE ONE Administration Critical Care Time Critical Care Time Critical Care Time: Yes Total Critical Care Time: 45 Attestation: I personally attest to this critical care time spent taking care of the patient exclusive of all other billable procedures was approximately 45 minutes including initial evaluation of patient, ordering tests, CT interpretation, pain management, medical consultation, documentation, re-evaluation. Discharge Plan Discharge Clinical Impression: Abdominal pain, Urinary tract infection Patient Disposition: Home, Self-Care Instructions: Urinary Tract Infection in Women (ED), Abdominal Pain (ED) Additional Instructions: based on your symptoms and testing today I am concerned that you may be developing a urinary tract infection. For this you have been given a prescription for an antibiotic. Please complete this entire course. Do not skip any doses or stopped taking early even if your pain begins to improve. The CT scan of your abdomen does not reveal any alarming causes for the pain that you are experiencing. As discussed, the pain may also be due to the excessive amount of coughing that you were experiencing. As you requested a additional prescription for Roney Arriola was sent to your pharmacy. Please contact your primary care provider to arrange for a follow-up visit within the next 3 days. You can return back to emergency department any new or worsening symptoms or concerns. Prescriptions: New cefuroxime axetil 250 mg tablet 250 mg PO BID Qty: 14 0RF benzonatate 200 mg capsule 200 mg PO TID PRN (Reason: cough) Qty: 20 0RF No Action ondansetron 4 mg tablet,disintegrating 4 mg PO TID PRN (Reason: nausea and vomiting) 5 Days Qty: 20 0RF Galzin 50 mg (zinc) capsule 100 mg PO DAILY 30 Days Qty: 60 1RF Privigen 10 % solution 40 g IV Q4W Qty: 400 11RF Rx Instructions: PER PATIENT, NEXT DOSE ~08/25/23 albuterol sulfate 2.5 mg /3 mL (0.083 %) solution for nebulization 2.5 mg inhalation Q4H PRN (Reason: shortness of breath or wheezing) 30 Days Qty: 360 11RF albuterol sulfate [Ventolin HFA] 90 mcg/actuation HFA aerosol inhaler 2 puff inhalation QID PRN (Reason: shortness of breath or wheezing) 30 Days Qty: 18 11RF Breztri Aerosphere 160-9-4.8 mcg/actuation HFA aerosol inhaler 2 inh inhalation BID 30 Days Qty: 10.7 11RF lidocaine 5 % adhesive patch,medicated 1 patch topical BID Qty: 30 6RF Rx Instructions: leave on most painful area for up to 12 hrs lorazepam 0.5 mg tablet 0.25 mg PO .every other day PRN (Reason: Anxiety) gabapentin 300 mg capsule 600 mg PO BID 90 Days Qty: 360 3RF montelukast 10 mg tablet 10 mg PO BEDTIME Eliquis 2.5 mg Tablet 2.5 mg PO BID Qty: 180 0RF dicyclomine 20 mg tablet 20 mg PO QID PRN (Reason: abdominal pain) Qty: 20 0RF escitalopram oxalate 10 mg tablet 1 tab PO DAILY zolpidem 10 mg tablet 10 mg PO BEDTIME valsartan 160 mg tablet 1 tab PO DAILY cholecalciferol (vitamin D3) 25 mcg (1,000 unit) tablet 1 tab PO DAILY acetaminophen 500 mg tablet 500 mg PO Q6H PRN (Reason: pain) Qty: 20 0RF meclizine 25 mg tablet 25 mg PO TID PRN (Reason: dizziness) Qty: 20 0RF loperamide 2 mg capsule 2 mg PO Q6H PRN (Reason: loose stool) Qty: 20 0RF ondansetron 4 mg tablet,disintegrating 4 mg PO Q6H PRN (Reason: nausea and vomiting) Qty: 14 0RF albuterol sulfate 90 mcg/actuation aerosol powdr breath activated 2 inh inhalation Q4-6H PRN (Reason: shortness of breath or wheezing) Qty: 1 0RF loratadine 10 mg tablet 10 mg PO DAILY quetiapine 400 mg tablet 400 mg PO BEDTIME polyethylene glycol 3350 17 gram Powder In Packet 17 g PO DAILY Qty: 30 0RF cyanocobalamin (vitamin B-12) 1,000 mcg tablet 1,000 mcg PO DAILY (DME) FreeStyle Lite Strips Strip See Rx Instructions .ROUTE BID Qty: 10 Rx Instructions: As directed betamethasone dipropionate 0.05 % lotion 1 appl topical BID PRN (Reason: psoriasis) Rx Instructions: apply to scalp calcipotriene 0.005 % ointment 1 appl topical BID PRN (Reason: flares) hydroxyzine HCl 25 mg tablet 25 mg PO TID PRN (Reason: itch) fluocinonide 0.05 % ointment 1 appl topical BID PRN (Reason: flares) fluticasone propionate 50 mcg/actuation spray,suspension 50 mcg intranasal DAILY Rx Instructions: 1 spray into each nostril (DME) nebulizers Mis See Rx Instructions .Route Rx Instructions: As directed naloxone 4 mg/actuation spray,non-aerosol 4 mg intranasal Q2M PRN (Reason: opioid overdose) 1 Days Qty: 2 2RF Rx Instructions: spray 1 dose into ONE nostril; alternate nostrils w each dose until help arrives benzonatate 200 mg capsule 200 mg PO TID PRN (Reason: cough) 30 Days Qty: 90 3RF ferrous sulfate 325 mg (65 mg iron) tablet 325 mg PO DAILY omeprazole 40 mg capsule,delayed release(DR/EC) 40 mg PO BID Qty: 180 0RF sucralfate 100 mg/mL suspension 10 ml PO QIDACHS Qty: 1000 1RF (DME) blood-glucose meter [FreeStyle Jean Lite] Kit See Rx Instructions .ROUTE .MEDSUPPLY Qty: 1 Rx Instructions: As directed (DME) lancets [FreeStyle Lancets] 28 gauge misc See Rx Instructions .ROUTE BID Qty: 100 Rx Instructions: As directed chlorpheniramine maleate 4 mg tablet 4 mg PO Q6H PRN (Reason: itching) 30 Days Qty: 90 6RF oxycodone 5 mg tablet 5 mg PO TID PRN (Reason: pain) 30 Days Qty: 90 0RF Rx Instructions: Partial Fill upon patient request. Referrals: Claudia Villatoro MD [Primary Care Provider] - Interventions: ED Discharge Assessment Last Done: 02/27/24 16:02 Discharge Date/Time: 02/27/24 16:03 Print Language: Azerbaijani
[2024-02-27 10:03] VITALS: BP 121/45; PULSE 65; RESP 16; TEMP 36.9; O2SAT 99; BMI 35.9
[2024-02-27 10:22] LABS: MANUAL DIFF FLAG NO
[2024-02-27 10:23] LABS: Basophils Percent Auto 0.4 % (0-2); Eosinophils Absolute Auto 0.2 X10*3/uL (0.0-0.4); Eosinophils Percent Auto 2.2 % (0-4); Hematocrit 32.6 % (37.0-47.0); Hemoglobin 10.1 g/dl (12.0-16.0); Imm Gran Abs Auto 0.05 X10*3/uL (0.00-0.03); Imm Gran Pct Auto 0.5 % (0.0-0.4); Lymphocytes Absolute Auto 3.3 X10*3/uL (1.2-4.9); Lymphocytes Percent Auto 35.5 % (20-40); Mean Corpuscular Hemoglobin 23.5 pg (27.0-33.0); Mean Platelet Volume 9.2 fL (9.4-12.3); Monocytes Absolute Auto 0.6 X10*3/uL (0.1-1.2); Neutrophils Absolute Auto 5.1 x10*3/uL (2.0-8.3); Neutrophils Percent Auto 55.4 % (45-73); Platelet Count 373 X10*3/uL (160-400); Red Blood Count 4.29 X10*6/uL (4.20-5.50); Red Cell Distribution Width 17.4 % (11.0-16.0); White Blood Count 9.2 X10*3/uL (4.8-10.8)
[2024-02-27 10:30] LABS: Appearance Urine Clear; Color Urine Yellow; Glucose Urine UA Negative (Negative); Leukocyte Esterase Urine Moderate (2+) (Negative); Nitrite Urine Negative (Negative); Specific Gravity - Urine 1.025 (1.005-1.025); UMIC TRIGGER UACC YES; Urine Blood Negative (Negative); Urine Ketones Negative (Negative); Urine Protein Negative (Neg-Trace)
[2024-02-27 10:35] LABS: Bacteria Urine None Seen (None Seen); Hyaline Casts Urine 0-2 /LPF (0-2); RBC Urine 0-2 /HPF (0-2); UACC Culture Trigger YES; WBC Urine 21-50 /HPF (0-5)
[2024-02-27 10:37] LABS: Alanine Aminotransferase 13 U/L (0-31); Albumin Level 3.4 g/dL (3.5-5.0); Alkaline Phosphatase 99 U/L (39-117); Anion Gap 13 (12-20); Aspartate Amino Transferase 23 U/L (5-31); Bilirubin Total 0.2 mg/dL (0.0-1.0); Blood Urea Nitrogen 19 mg/dL (9-16); Calcium 9.2 mg/dL (8.4-10.2); Carbon Dioxide 25 mmol/L (22-29); Chloride 104 mmol/L (96-108); Creatinine Clr Calc Pharmacy 54.2; Estimated Glomerular Filt Rate 56; Glucose Random 79 mg/dL (60-115); Lipase 40 U/L (8-78); Potassium 3.8 mmol/L (3.3-5.1); Sodium 138 mmol/L (135-145); Total Protein 6.4 g/dL (6.5-8.0)
[2024-02-27] MEDS: ondansetron HCL 4 MG/2 ML VIAL IVPUSH (10:52)
[2024-02-27] MEDS: 0.9 % Sodium Chloride 1,000 ML 999 ML IV (10:52)
[2024-02-27] MEDS: Morphine Sulfate 4 MG/ML CARTRIDGE IVPUSH (10:52)
[2024-02-27] MEDS: iohexoL 350 MG/ML 100 ML INFUS..BTL IV (12:13)
[2024-02-27 15:02] VITALS: BP 115/57; PULSE 67; RESP 18; TEMP 37.2; O2SAT 100
[2024-02-27 16:02] VITALS: BP 115/57; PULSE 67; RESP 18; TEMP 37.2; O2SAT 100
[2024-02-27] MEDS: Acetaminophen 325 MG TABLET 975 MG PO (16:02)
== END 2024-02-27 16:03 | disposition home or self-care (01) ==
PROVIDERS: Nurse Practitioner Family; Emergency Provider Student in an Organized Health Care Education/Training Program; PCP Internal Medicine
DX: R10.9 Unspecified abdominal pain (principal); N39.0 Urinary tract infection, site not specified; I10 Essential (primary) hypertension; E11.9 Type 2 diabetes mellitus without complications; J44.9 Chronic obstructive pulmonary disease, unspecified; Z86.73 Personal history of transient ischemic attack (TIA), and cerebral infarction without residual deficits; Z86.718 Personal history of other venous thrombosis and embolism; Z79.01 Long term (current) use of anticoagulants
CPT/HCPCS: 36415; 74177; 80053; 81001; 83690; 83735; 85025; 87086; 96361; 96374; 96375; 99284; 99285; J2270; J2405; Q9967

== ENCOUNTER 2024-03-16 09:20 | Outpatient (AMB) | payer OTHER, SELFPAY ==
--- NOTE | 2024-03-16 09:26 | A.OFFVIS_ITS ---
Vital Signs 03/16/24 09:36 Height 5 ft 10 in Weight 172 lb BMI 24.7 BP 129/65 Blood Pressure Location Lt brachial Position Sitting Pulse 88 Pulse Source Pulse Oximeter Pulse Oximetry (%) 98 Oxygen Delivery Method Room Air Intake Visit Reasons: PILL COUNT Intake Note: Maye comes in today for a pill count to oxycodone, patient should have 15 tablets and presents with 14 tablets which she last took today 04/16/24 at 8:30am. Pain today 5/10. 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 Patient is prescribed oxycodone 5mg tabs, take one tablet three times daily. Patient arrived today with the expectation of having 15 pills, she presented 14 pills which were counted in the presence of two staff members and returned to the patient in the original prescription bottle. This demonstrates responsible attitude toward patient's opioid medications. Pain is reported today as 5/10 and last dose of pain medication was taken at 8:30 this morning. Chronic pain is adequately managed on current opioid regimen with improvement in mobility and overall functioning. She denies side effects including nausea, constipation, somnolence, weakness, urinary retention, chest pain or syncope. Was sick with Covid over last 2 weeks. starting to feel better now. Still with fatigue and decreased po intake. Denies cough, shortness of breath, chest pain, dizziness, weakness, palpitations, syncope, fever Previously: She was suspended for 6 months because UDS demonstrated tramadol in her urine. She was admitted slightly earlier on the request of her PCP - she developed renal insufficiency and she was taking large doses of NSAIDs to help her pain. Her risk of Opioid was low.? When she come back from suspension her opioid risk will become moderate. 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 Dizziness Headache Elevated lactic acid level Bronchitis Headache, migraine Asthma exacerbation Cough BABATUNDE (obstructive sleep apnea) Chronic pain syndrome Spondylosis of lumbar spine Low back pain Complex regional pain syndrome i of left lower limb Diabetic neuropathy Laryngotracheitis Essential hypertension Type 2 diabetes mellitus with unspecified complications Morbid obesity Anemia Back pain Pleuritic chest pain Fibromyalgia Hypothyroidism TIA (transient ischemic attack) Diet-controlled diabetes mellitus Depression Arthritis Sleep apnea Hypogammaglobulinemia Pulmonary embolism Surgical History History of esophagogastroduodenoscopy (EGD) Hx of colonoscopy S/P total abdominal hysterectomy History of cholecystectomy History of bariatric surgery Family History Mother Diabetes Stroke Family/Other Diabetes Father Diabetes Maternal Aunt Cancer Social History Household Members: None Housing: Apartment Are you a primary careers counsellor to a significant other at home: No Do you presently have visiting nurse or other home services: No (CLOSING AGENT) Alcohol intake: never Patient Tobacco Use Status: Never used Tobacco e-Cigarette/Vaping Use: Never Used Second Hand Smoke Exposure: No Substance Use Type: Opiates Advance Directives Date on File: 05/23/21 service: No Current occupational status: unemployed and disabled Review of Systems Const All systems reviewed & are unremarkable except as noted in HPI and below Physical Exam Vital Signs: Last Vital Signs Pulse 88 03/16/24 09:36 BP 129/65 03/16/24 09:36 Pulse Ox 98 03/16/24 09:36 Oxygen Delivery Method Room Air 03/16/24 09:36 BMI result Body Mass Index 24.7 General: awake, alert, oriented. Answers questions appropriately. Fully engaged in examination. Skin: warm, dry, intact. HEENT: Normocephalic. Hearing intact. Cardiac: External chest normal in appearance. Respiratory: No cough, audible wheezing or stridor. Abdomen: without gross distension. MS: No obvious swelling or deformities. Able to transition from sit to stand unassisted. Ambulates with use of a cane Neurological: Oriented to person, place, time and situation. Thought process intact. Psychiatric: Appropriate mood and affect. Good judgment and insight. Results Reviewed Results Reviewed: 11/12/2021EXAMINATION: THORACIC AND LUMBAR SPINE X-RAY FINDINGS: Thoracic spine: Exam is limited due to light film technique and patient body habitus. There is mild curvature of the midthoracic spine to the right. Bone alignment is otherwise normal. No fracture or dislocation is seen. There is mild multilevel degenerative disc disease of the midthoracic spine. Paraspinal soft tissues are unremarkable. Lumbar spine: Bone alignment is normal. No fracture or dislocation is seen. Disc spaces are normal. There is lower lumbar spine facet arthritis.? XR/XR lumbar spine 2-3V IMPRESSION: No fracture or dislocation seen. Degenerative changes. Evaluation of the thoracic spine is limited due to patient body habitus.? 03/03/2021 MR LUMBAR SPINE WITHOUT CONTRAST FINDINGS: Coronal Alignment:?Normal. Sagittal Alignment:?2 mm of grade 1 spondylolisthesis at L5-S1 has developed since the previous exam. Trace retrolisthesis at L3-L4 is stable. Lumbosacral Junction: ?Normal. Vertebral Bodies: Normal height. Bone Marrow:? Large benign vertebral hemangioma in the L4 vertebral body on the left is stable. There is an 8 mm probable atypical benign hemangioma in the L3 vertebral body. No suspicious marrow replacing process or bone marrow edema. Conus Medullaris:?Terminates at L1.?Morphology and signal is normal. Intradural Nerve Roots: Within normal limits. 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 Maximum diameter is 4 mm, unchanged. SPINAL LEVELS: L5-S1: Mild loss of disc space height is noted with disc desiccation with minimal progression of disc space height loss from previous study, with development of slight anterolisthesis. There is marked facet arthropathy on the right progressed from previous study and moderate facet arthropathy on the left also slightly progressed. Right-sided facet joint effusion noted on current exam with a small synovial cyst along its posterior margin with subchondral marrow edema on both sides of the facet joint consistent with facet inflammatory changes. There is anterior and right paravertebral spondylosis and there is mild disc bulging with a superimposed right-sided foraminal disc herniation progressed from previous exam. There is mild right-sided neural foraminal stenosis without neural impingement and there is no significant canal stenosis. L4-L5: Disc space height and signal are well maintained. No significant disc bulge or herniation and no significant spondylosis. Mild facet arthrosis bilaterally noted without significant canal or neural foraminal stenosis. L3-L4: Mild loss of disc space height is noted with mild disc desiccation and slight retrolisthesis, stable in appearance. No significant disc bulge or herniation. No significant canal or neural foraminal stenosis. Minor spondylosis is unchanged. L2-L3: Disc space height and signal are well maintained without disc bulge or herniation and no significant facet arthrosis, canal or neural foraminal stenosis, stable in appearance. L1-L2: Disc space height and signal are well maintained without disc bulge or herniation and no significant spondylosis. No significant facet arthrosis, canal or neural foraminal stenosis. Paraspinal/Retroperitoneal: The paravertebral soft tissues appear unremarkable. There is a 2.9 cm probable parapelvic cyst in the mid left kidney increased in size from previous exam. A 1 cm cortical cyst lateral cortex upper pole of right kidney, unchanged. Partially imaged exophytic cortical cyst lateral cortex mid left kidney, increased in size. MR/MR lumbar spine wo con IMPRESSION: 1. Progression of facet arthropathy at L5-S1 right more the left with facet inflammatory changes on the right on the current study, with development of grade 1 spondylolisthesis with progression of disc degenerative change. Development of right foraminal disc herniation and minimal disc bulging with mild right-sided foraminal stenosis since prior exam. ? 2. Mild bilateral facet arthropathy at L4-L5, stable in appearance. ? 3. Thickened, fatty filum, consistent with a benign fibrolipoma of the filum terminale, unchanged. ? 4. Multiple bilateral renal cysts, some of which have increased in size on the left, probably unchanged from previous CT abdomen of 03/16/2019. Assessment & Plan Assessment & Plan (1) Spondylosis of lumbar joint: Code(s): M47.816 - Spondylosis without myelopathy or radiculopathy, lumbar region Category: Medical (2) Knee pain, left: Code(s): M25.562 - Pain in left knee Category: Medical Qualifiers: Chronicity: chronic Qualified Code(s): M25.562 - Pain in left knee; G89.29 - Other chronic pain (3) Low back pain: Code(s): M54.5 - Low back pain Category: Medical Qualifiers: Chronicity: chronic Back pain laterality: bilateral Sciatica presence: without sciatica Qualified Code(s): M54.50 - Low back pain, unspecified; G89.29 - Other chronic pain (4) Disc degeneration, lumbosacral: Code(s): M51.37 - Other intervertebral disc degeneration, lumbosacral region Category: Medical (5) Spondylosis of cervical spine: Code(s): M47.812 - Spondylosis without myelopathy or radiculopathy, cervical region Category: Medical (6) Osteoporosis: Code(s): M81.0 - Age-related osteoporosis without current pathological fracture Category: Medical (7) Sacroiliac joint dysfunction of left side: Code(s): M53.3 - Sacrococcygeal disorders, not elsewhere classified Category: Medical (8) Left hip pain: Code(s): M25.552 - Pain in left hip Category: [facility] No obvious signs of diversion, abuse or misuse of the opioid medications. Will send in prescription for oxycodone 5mg TID with an advanced date of 03/21/24 All questions and concerns have been answered and patient agrees with the plan. Follow up in 1 month, sooner if needed. Medications: Changed From oxycodone Partial Fill upon patient request. 5 mg PO TID 7 days PRN 21 tabs 0RF pain To oxycodone Partial Fill upon patient request. 5 mg PO TID PRN 90 tabs 0RF pain 30 days Coding Level of Care Code Est Pt Level 4 (45078) Diagnoses Spondylosis of lumbar joint M47.816 Chronic pain of left knee M25.562; G89.29 Chronicity: chronic Chronic bilateral low back pain without sciatica M54.50; G89.29 Chronicity: chronic Back pain laterality: bilateral Sciatica presence: without sciatica Disc degeneration, lumbosacral M51.37 Spondylosis of cervical spine M47.812 Osteoporosis M81.0 Sacroiliac joint dysfunction of left side M53.3 Left hip pain M25.552
[2024-03-16 09:36] VITALS: BP 129/65; PULSE 88; O2SAT 98; BMI 24.7
== END 2024-03-16 09:46 | disposition home or self-care (01) ==
PROVIDERS: PCP Internal Medicine; Visit Provider Registered Nurse Emergency
DX: M47.816 Spondylosis without myelopathy or radiculopathy, lumbar region (principal); M25.562 Pain in left knee; G89.29 Other chronic pain; M54.50 Low back pain, unspecified; M51.37 Other intervertebral disc degeneration, lumbosacral region; M47.812 Spondylosis without myelopathy or radiculopathy, cervical region; M81.0 Age-related osteoporosis without current pathological fracture; M53.3 Sacrococcygeal disorders, not elsewhere classified; M25.552 Pain in left hip
CPT/HCPCS: 99214

== ENCOUNTER → 2024-03-16 09:20 | Outpatient (BNVA) | payer OTHER, SELFPAY | PROVIDERS: PCP Internal Medicine; Visit Provider Registered Nurse Emergency | DX: Z51.81 Encounter for therapeutic drug level monitoring (principal); F11.20 Opioid dependence, uncomplicated; M47.816 Spondylosis without myelopathy or radiculopathy, lumbar region; M25.562 Pain in left knee; M54.50 Low back pain, unspecified; M51.37 Other intervertebral disc degeneration, lumbosacral region; M47.812 Spondylosis without myelopathy or radiculopathy, cervical region; M81.0 Age-related osteoporosis without current pathological fracture; M53.3 Sacrococcygeal disorders, not elsewhere classified; M25.552 Pain in left hip; G89.29 Other chronic pain | CPT/HCPCS: 99212 ==

== ENCOUNTER 2024-03-21 07:27 | Emergency (ER) | payer OTHER, SELFPAY ==
--- NOTE | ~2024-03-21 | XR_ITS ---
EXAMINATION: XR CHEST CLINICAL INFORMATION: Cough and shortness of breath COMPARISON: 02/19/2024 TECHNIQUE: 2 views of the chest were obtained. FINDINGS: No significant abnormality is noted involving the heart, lungs, mediastinum, bony thorax or soft tissues. XR/XR chest 2V IMPRESSION: Unremarkable examination.
[2024-03-21 07:36] VITALS: BP 143/61; PULSE 91; RESP 16; TEMP 37.1; O2SAT 99; BMI 34.7
[2024-03-21 07:50] LABS: MANUAL DIFF FLAG NO
[2024-03-21 07:52] LABS: Basophils Percent Auto 0.2 % (0-2); Hematocrit 33.6 % (37.0-47.0); Hemoglobin 10.6 g/dl (12.0-16.0); Imm Gran Abs Auto 0.07 X10*3/uL (0.00-0.03); Imm Gran Pct Auto 0.7 % (0.0-0.4); Lymphocytes Percent Auto 9.9 % (20-40); Mean Corpuscular HGB Conc 31.5 g/dl (31.0-35.0); Mean Corpuscular Hemoglobin 24.2 pg (27.0-33.0); Mean Corpuscular Volume 76.7 fL (80.0-98.0); Mean Platelet Volume 8.9 fL (9.4-12.3); Monocytes Absolute Auto 0.4 X10*3/uL (0.1-1.2); Monocytes Percent Auto 3.8 % (2-11); Neutrophils Percent Auto 85.4 % (45-73); Platelet Count 361 X10*3/uL (160-400); Red Blood Count 4.38 X10*6/uL (4.20-5.50); Red Cell Distribution Width 21.1 % (11.0-16.0); White Blood Count 10.5 X10*3/uL (4.8-10.8)
[2024-03-21 08:08] LABS: Anion Gap 16 (12-20); Blood Urea Nitrogen 21 mg/dL (9-16); Calcium 9.8 mg/dL (8.4-10.2); Carbon Dioxide 20 mmol/L (22-29); Chloride 110 mmol/L (96-108); Creatinine Clr Calc Pharmacy 60.3; Estimated Glomerular Filt Rate > 60; Glucose Random 93 mg/dL (60-115); Potassium 4.4 mmol/L (3.3-5.1); Sodium 142 mmol/L (135-145)
--- NOTE | 2024-03-21 08:08 | ED.GENADULT ---
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 (all interactions with this patient were facilitated by an [facility] [place]elon harvesting supervisor[place] Mode of arrival: ambulatory Limitations: language barrier (all interactions with this patient were facilitated by an [facility] [place] supervisor) History of Present Illness ED Provider: Celeste Irwin PA-C HPI narrative: Patient is a 54 year old assigned female at with a history of asthma, COVID-19 in January 2024, HTN, and DM presenting to the emergency department today with increased shortness of breath over the last 4 days, persistent cough, and a headache. Patient states that since COVID-19 last month she has had a consistent cough. Patient states that over the last 4 days her shortness of breath has increased and she has had a headache. Patient denies any dizziness, lightheadedness, abdominal pain, nausea, vomiting, fever, chills, blurry vision, double vision, loss of vision, chest pain, back pain, night sweats, pain with urination, increased urinary frequency, increased urinary urgency, blood in her urine or stool, syncope or a near syncopal episode, recent trauma or falls, bowel incontinence, bladder incontinence, bowel retention, bladder retention, or any other complaints at this time. Onset (ago): day(s) (4) Severity: mild Severity scale (1-10): 4 Relieving factors: none Exacerbating factors: none Associated symptoms: cough and shortness of breath Treatments prior to arrival: none Related Data Home Medications ?Medication ?Instructions ?Recorded ?Confirmed montelukast 10 mg tablet 10 mg PO BEDTIME 08/02/20 01/26/24 cyanocobalamin (vitamin B-12) 1,000 mcg PO DAILY 11/05/20 01/26/24 1,000 mcg tablet escitalopram oxalate 10 mg tablet 1 tab PO DAILY 08/21/22 01/26/24 cholecalciferol (vitamin D3) 25 1 tab PO DAILY 11/28/22 01/26/24 mcg (1,000 unit) tablet valsartan 160 mg tablet 1 tab PO DAILY 11/28/22 01/26/24 betamethasone dipropionate 0.05 % 1 appl topical BID PRN psoriasis 02/12/23 01/26/24 lotion blood sugar diagnostic (FreeStyle #10 ea 02/12/23 01/26/24 Lite Strips) calcipotriene 0.005 % topical 1 appl topical BID PRN flares 02/12/23 01/26/24 ointment fluocinonide 0.05 % topical 1 appl topical BID PRN flares 02/12/23 01/26/24 ointment fluticasone propionate 50 50 mcg intranasal DAILY 02/12/23 01/26/24 mcg/actuation nasal spray,suspension hydroxyzine HCl 25 mg tablet 25 mg PO TID PRN itch 02/12/23 01/26/24 nebulizers 04/02/23 01/26/24 loratadine 10 mg tablet 10 mg PO DAILY 08/22/23 01/26/24 quetiapine 400 mg tablet 400 mg PO BEDTIME 08/22/23 01/26/24 ferrous sulfate 325 mg (65 mg 325 mg PO DAILY 11/08/23 01/26/24 iron) tablet lorazepam 0.5 mg tablet 0.25 mg PO .every other day PRN 11/10/23 01/26/24 Anxiety zolpidem 10 mg tablet 10 mg PO BEDTIME Insomnia 11/22/23 01/26/24 blood-glucose meter (FreeStyle #1 ea 12/08/23 01/26/24 Mcpherson Lite kit) lancets 28 gauge (FreeStyle #100 ea 12/08/23 01/26/24 Lancets) prednisone 10 mg tablet mg PO 03/16/24 Previous Rx's ?Medication ?Instructions ?Recorded dicyclomine 20 mg tablet 20 mg PO QID PRN abdominal pain 06/27/22 #20 tabs ondansetron 4 mg disintegrating 4 mg PO TID PRN nausea and 11/27/22 tablet vomiting 5 days #20 tabs zinc acetate 50 mg (zinc) capsule 100 mg (2 x 50 mg (zinc)) PO DAILY 12/02/22 (Galzin) 30 days #60 caps naloxone 4 mg/actuation nasal spray 4 mg intranasal Q2M PRN opioid 02/24/23 overdose 1 day #2 ea immune glob,gamm(IgG) 10 %-pro-IgA 40 g IV Q4W #400 mL 05/28/23 0 to 50 mcg/mL intravenous solution (Privigen) acetaminophen 500 mg tablet 500 mg PO Q6H PRN pain #20 tabs 06/09/23 polyethylene glycol 3350 17 gram 17 g PO DAILY #30 ea 08/25/23 oral powder packet albuterol sulfate 2.5 mg/3 mL 2.5 mg (3 mL) inhalation Q4H PRN 09/02/23 (0.083 %) solution for nebulization shortness of breath or wheezing 30 days #360 mL albuterol sulfate 90 mcg/actuation 2 puff inhalation QID PRN 09/02/23 aerosol inhaler (Ventolin HFA) shortness of breath or wheezing 30 days #18 grams budesonide 160 mcg-glycopyr 9 2 inh inhalation BID 30 days #10.7 09/02/23 mcg-formot 4.8 mcg/actuation HFA grams inhaler (Breztri Aerosphere) lidocaine 5 % topical patch 1 patch topical BID #30 ea 09/21/23 meclizine 25 mg tablet 25 mg PO TID PRN dizziness #20 tabs 10/15/23 apixaban 2.5 mg tablet (Eliquis) 2.5 mg PO BID #180 tabs 11/09/23 gabapentin 300 mg capsule 600 mg (2 x 300 mg) PO BID 90 days 12/08/23 #360 caps sucralfate 100 mg/mL oral 10 ml PO QIDACHS #1,000 mL 12/08/23 suspension chlorpheniramine maleate 4 mg 4 mg PO Q6H PRN itching 30 days 12/24/23 tablet #90 tabs albuterol sulfate 90 mcg/actuation 2 inh inhalation Q4-6H PRN 02/19/24 breath activated powder inhaler shortness of breath or wheezing #1 ea loperamide 2 mg capsule 2 mg PO Q6H PRN loose stool #20 02/19/24 caps ondansetron 4 mg disintegrating 4 mg PO Q6H PRN nausea and 02/19/24 tablet vomiting #14 tabs cefuroxime axetil 250 mg tablet 250 mg PO BID #14 tabs 02/27/24 benzonatate 200 mg capsule 200 mg PO TID PRN cough 30 days 02/28/24 #90 caps codeine 10 mg-guaifenesin 100 mg/5 10 ml PO Q6H PRN cough 10 days 02/28/24 mL oral liquid #300 mL omeprazole 40 mg capsule,delayed 40 mg PO BID #180 caps 03/06/24 release oxycodone 5 mg tablet 5 mg PO TID PRN pain 30 days #90 03/16/24 tabs amoxicillin 875 mg-potassium 1 tab PO BID 10 days #20 tabs 03/20/24 clavulanate 125 mg tablet benzonatate 200 mg capsule 200 mg PO BID PRN cough 30 days 03/20/24 #30 caps benzonatate 100 mg capsule 100 mg PO BID PRN cough 7 days #14 03/21/24 caps Allergies Allergy/AdvReac Type Severity Reaction Status Date / Time No Known Allergies Allergy Verified 03/21/24 07:38 Review of Systems Constitutional: Constitutional: Reports no additional constitutional complaints, Denies chills, Denies fever(s), Reports headache(s) and Denies night sweats Eyes: Eyes: Reports no additional eye complaints, Denies blurry vision, Denies change in vision, Denies diplopia, Denies eye discharge, Denies loss of vision and Denies eye pain ENT: Denies dizziness and Reports headache(s) Cardiovascular: Cardiovascular: Reports no additional cardiovascular complaints, Denies chest pain, Denies lightheadedness, Denies Loss of Consciousness and Reports dyspnea Respiratory: Respiratory: Reports no additional respiratory complaints, Reports cough and Reports dyspnea Gastrointestinal: Gastrointestinal: Reports no additional gastrointestinal complaints, Denies abdominal pain, Denies melena, Denies hematochezia, Denies change in bowel habits and Denies change in stool character Genitourinary: Genitourinary: Denies hematuria, Denies urinary frequency, Denies dysuria, Denies urinary incontinence, Denies urinary hesitancy and Denies urinary urgency Musculoskeletal: Musculoskeletal: Reports no additional musculoskeletal complaints, Denies numbness and Denies tingling Neurologic: Denies dizziness, Reports headache(s), Denies loss of vision, Denies numbness and Denies tingling Psychiatric: Psychiatric: Reports no additional psychiatric complaints Endocrine: Endocrine: Reports no additional endocrine complaints Hematologic/Lymphatic: Hematologic/Lymphatic: Reports no additional hematologic/lymphatic complaints Allergic/Immunologic: Allergic/Immunologic: Reports no additional allergic/immunologic complaints PMFSH Past Medical History Attestation statement: The following information was validated with the patient. 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 Dizziness Headache Elevated lactic acid level Bronchitis Headache, migraine Asthma exacerbation Cough BABATUNDE (obstructive sleep apnea) Chronic pain syndrome Spondylosis of lumbar spine Low back pain Complex regional pain syndrome i of left lower limb Diabetic neuropathy Laryngotracheitis Essential hypertension Type 2 diabetes mellitus with unspecified complications Morbid obesity Anemia Back pain Pleuritic chest pain Fibromyalgia Hypothyroidism TIA (transient ischemic attack) Diet-controlled diabetes mellitus Depression Arthritis Sleep apnea Hypogammaglobulinemia Pulmonary embolism Surgical History History of esophagogastroduodenoscopy (EGD) Hx of colonoscopy S/P total abdominal hysterectomy History of cholecystectomy History of bariatric surgery Family History Family History Mother Diabetes Stroke Family/Other Diabetes Father Diabetes Maternal Aunt Cancer Social History Social History Household Members: None Housing: Apartment Are you a primary health care marketing specialist to a significant other at home: No Do you presently have visiting nurse or other home services: No ([employer]) Alcohol intake: never Patient Tobacco Use Status: Never used Tobacco e-Cigarette/Vaping Use: Never Used Second Hand Smoke Exposure: No Substance Use Type: Opiates Advance Directives: No Advance Directives Information Provided: No Advance Directives Date on File: 05/23/21 service: No Current occupational status: unemployed and disabled Physical Exam ED Vital Signs: Vital Signs - 24 hr 03/21/24 07:36 03/21/24 08:30 03/21/24 09:24 Temperature 98.7 F 98.9 F Pulse Rate 91 80 87 Respiratory Rate 16 28 H 18 Blood Pressure 143/61 H 144/76 H Pulse Oximetry 99 100 Oxygen Delivery Method Room Air Room Air 03/21/24 09:28 Temperature 98.9 F Pulse Rate 87 Respiratory Rate 18 Blood Pressure 144/76 H Pulse Oximetry 100 Oxygen Delivery Method Room Air BMI result Body Mass Index 34.7 Const General: cooperative, no acute distress, alert and awake Nutritional Appearance: well nourished Orientation/consciousness: patient oriented x3 Limitations: no limitations HENMT Head: Yes normal to inspection and Yes atraumatic Ears: hearing grossly normal bilaterally and external ears normal General nose exam: Normal external nose present, no nasal discharge noted and no epistaxis Face and sinus: Yes normal facial exam, No abrasion and No laceration Mouth: Normal oral and palatal mucosa present, no drooling and no muffled voice Eyes General: appearance normal, both eyes and all related structures Periorbital: periorbital findings normal Eyelids: Yes eyelids normal Conjunctivae: conjunctivae normal Pupils: Equal, round and reactive pupils present EOM: EOMs intact bilaterally Neck Neck: Yes normal visual inspection, Yes full ROM and Yes no lymphadenopathy Chest Chest palpation & inspection: normal inspection of the chest Resp Effort & Inspection: normal respiratory effort, able to speak in complete sentences and Actively coughing Quality: dry Auscultation: wheezes throughout GI Inspection: Yes normal to inspection Neuro General: patient oriented x3 and moves all extremities Cranial nerves: Yes Equal, round and reactive pupils present Cognition (Neuro): normal cognition Motor exam (neuro): 5/5 motor strength present throughout Sensory Exam: Normal double simultaneous stimulation for sensation Coordination: [id number] test normal Extrem General: Yes normal to inspection, Yes full ROM and Yes capillary refill normal Psych Appearance: grossly normal Mental Status: mental status grossly normal Affect: normal affect Attitude: cooperative Thought process: Normal thought process present Thought content: Normal thought content present Insight: Good insight present (Psych) Medications Administered Discontinued Medications Generic Name Dose Route Start Last Admin Trade Name Deshawnq PRN Reason Stop Dose Admin Benzonatate 200 mg 03/21/24 08:08 03/21/24 08:17 Benzonatate 100 Mg Capsule PO 03/21/24 08:09 200 mg ONCE ONE Administration Albuterol Sulfate 5 mg/ 0 mg 03/21/24 08:26 03/21/24 08:30 Albuterol/Ipratropium 3 ml INHALE 03/21/24 08:27 7.5 each ONCE ONE Administration Dexamethasone Sodium Phosphate 10 mg 03/21/24 09:04 03/21/24 09:16 Dexamethasone Sod Phosphate 10 Mg/Ml Vial PO 03/21/24 09:05 10 mg ONCE ONE Administration Ketorolac Tromethamine 15 mg 03/21/24 09:04 03/21/24 09:17 Ketorolac Tromethamine 15 Mg/Ml Vial IM 03/21/24 09:05 15 mg ONCE ONE Administration Medical Decision Making Medical Decision Making [facility] Narrative: Patient is a 54 year old assigned female at with a history of asthma, recent COVID-19 diagnosis, DM, and HTN presenting to the emergency department today with a persistent cough and more recent shortness of breath. Patient's physical exam was as noted in the physical exam portion of this note. Patient's blood work was unremarkable. Patient's chest x-ray showed no acute process. I explained my physical exam findings as well as all test results to the patient. I answered all questions asked by the patient. Patient received PO Decadron and a breathing treatment which she stated helped her symptoms significantly. I stressed the importance of the patient taking her medication as prescribed. I stressed the importance of the patient following up with her primary care provider. I stressed the importance of the patient returning to the emergency department immediately if her symptoms were to worsen or if she were to develop any dizziness, shortness of breath, difficulty breathing, chest pain, blurry vision, loss of vision, nausea, vomiting, abdominal pain, fever, chills, back pain, or any other complaints. Patient verbalized agreement and understanding with this treatment plan and discharge. Differential Diagnosis Differential Diagnoses: The differential diagnosis associated with the presentation includes Viral illness Post viral illness cough Persistent cough Asthma exacerbation COVID-19 Influenza RSV Admission/Observation Consideration of admission/observation: Escalation of care including admission/observation considered Patient would have been admitted to the hospital had her work up had any findings where hospital admission was appropriate and her clinical presentation warranted hospital admission. Lab Data [facility] Lab Attestation statement: I reviewed the patient's lab results. My interpretation of these results are in the MDM Rationale portion of this note. 03/21/24 07:47 03/21/24 07:47 Labs: Lab Results 03/21/24 03/21/24 Range/Units 07:45 07:47 WBC 10.5 (4.8-10.8) X10*3/uL RBC 4.38 (4.20-5.50) X10*6/uL Hgb 10.6 L (12.0-16.0) g/dl Hct 33.6 L (37.0-47.0) % MCV 76.7 L (80.0-98.0) fL MCH 24.2 L (27.0-33.0) pg MCHC 31.5 (31.0-35.0) g/dl RDW 21.1 H (11.0-16.0) % Plt Count 361 (160-400) X10*3/uL MPV 8.9 L (9.4-12.3) fL Immature Gran % (Auto) 0.7 H (0.0-0.4) % Neut % (Auto) 85.4 H (45-73) % Lymph % (Auto) 9.9 L (20-40) % [place] % (Auto) 3.8 (2-11) % Eos % (Auto) 0.0 (0-4) % Baso % (Auto) 0.2 (0-2) % Lymph # (Auto) 1.0 L (1.2-4.9) X10*3/uL [place] # (Auto) 0.4 (0.1-1.2) X10*3/uL Eos # (Auto) 0.0 (0.0-0.4) X10*3/uL Baso # (Auto) 0.0 (0.0-0.2) X10*3/uL Abs Immat Gran (auto) 0.07 H (0.00-0.03) X10*3/uL Absolute Neuts (auto) 9.0 H (2.0-8.3) x10*3/uL Absolute Nucleated RBC 0.000 (0.0-0.012) X10*3/uL Nucleated RBC % (auto) 0.0 (0.0-0.2) /100WBC Sodium 142 (135-145) mmol/L Potassium 4.4 (3.3-5.1) mmol/L Chloride 110 H (96-108) mmol/L Carbon Dioxide 20 L (22-29) mmol/L Anion Gap 16 (12-20) BUN 21 H (9-16) mg/dL Creatinine 0.95 (0.5-1.4) mg/dL Estim Creat Clear Calc 60.3 Estimated GFR > 60 Random Glucose 93 (60-115) mg/dL Calcium 9.8 D (8.4-10.2) mg/dL Influenza Type A (PCR) NEGATIVE (Negative) Influenza Type B (PCR) NEGATIVE (Negative) RSV RNA Qual (PCR) NEGATIVE (Negative) SARS-CoV-2 RNA (RT-PCR) NEGATIVE (Negative) Independent Interpretation I performed an independent interpretation of an: Plain X-Ray Interpretation: My interpretation is in agreement with the radiologist's impression of this imaging study. EXAMINATION: XR CHEST CLINICAL INFORMATION: Cough and shortness of breath COMPARISON: 02/19/2024 TECHNIQUE: 2 views of the chest were obtained. FINDINGS: No significant abnormality is noted involving the heart, lungs, mediastinum, bony thorax or soft tissues. XR/XR chest 2V IMPRESSION: Unremarkable examination. Dictated By: Marli Huntley MD Signed By: Electronically signed by Marli Huntley MD 03/21/24 0825 Radiology Impression Discussion of test interpretation with radiology: I have reviewed the radiologist's reading. Chronic Conditions Patient?s care impacted by: Diabetes and Hypertension Critical Care Time Critical Care Time Critical Care Time: Yes Total Critical Care Time: 62 Attestation: I spent 62 minutes of Critical Care Time with this patient. This does not include time spent on separately reported billable procedures. Discharge Plan Discharge Clinical Impression: Cough, Asthma exacerbation Patient Disposition: Home, Self-Care Instructions: Asthma (DC), Acute Cough (ED) Additional Instructions: Follow up with your primary care provider. Return to the emergency department immediately if your symptoms worsen or if you develop any dizziness, shortness of breath, difficulty breathing, chest pain, blurry vision, loss of vision, nausea, vomiting, abdominal pain, fever, chills, back pain, or any other complaints. Prescriptions: New benzonatate 100 mg capsule 100 mg PO BID PRN (Reason: cough) 7 Days Qty: 14 0RF No Action ondansetron 4 mg tablet,disintegrating 4 mg PO TID PRN (Reason: nausea and vomiting) 5 Days Qty: 20 0RF Galzin 50 mg (zinc) capsule 100 mg PO DAILY 30 Days Qty: 60 1RF Privigen 10 % solution 40 g IV Q4W Qty: 400 11RF Rx Instructions: PER PATIENT, NEXT DOSE ~08/25/23 albuterol sulfate 2.5 mg /3 mL (0.083 %) solution for nebulization 2.5 mg inhalation Q4H PRN (Reason: shortness of breath or wheezing) 30 Days Qty: 360 11RF albuterol sulfate [Ventolin HFA] 90 mcg/actuation HFA aerosol inhaler 2 puff inhalation QID PRN (Reason: shortness of breath or wheezing) 30 Days Qty: 18 11RF Breztri Aerosphere 160-9-4.8 mcg/actuation HFA aerosol inhaler 2 inh inhalation BID 30 Days Qty: 10.7 11RF lidocaine 5 % adhesive patch,medicated 1 patch topical BID Qty: 30 6RF Rx Instructions: leave on most painful area for up to 12 hrs lorazepam 0.5 mg tablet 0.25 mg PO .every other day PRN (Reason: Anxiety) gabapentin 300 mg capsule 600 mg PO BID 90 Days Qty: 360 3RF benzonatate 200 mg capsule 200 mg PO TID PRN (Reason: cough) 30 Days Qty: 90 3RF codeine-guaifenesin 10-100 mg/5 mL liquid 10 ml PO Q6H PRN (Reason: cough) 10 Days Qty: 300 0RF omeprazole 40 mg capsule,delayed release(DR/EC) 40 mg PO BID Qty: 180 1RF amoxicillin-pot clavulanate 875-125 mg tablet 1 tab PO BID 10 Days Qty: 20 0RF benzonatate 200 mg capsule 200 mg PO BID PRN (Reason: cough) 30 Days Qty: 30 6RF montelukast 10 mg tablet 10 mg PO BEDTIME Eliquis 2.5 mg Tablet 2.5 mg PO BID Qty: 180 0RF dicyclomine 20 mg tablet 20 mg PO QID PRN (Reason: abdominal pain) Qty: 20 0RF escitalopram oxalate 10 mg tablet 1 tab PO DAILY zolpidem 10 mg tablet 10 mg PO BEDTIME valsartan 160 mg tablet 1 tab PO DAILY cholecalciferol (vitamin D3) 25 mcg (1,000 unit) tablet 1 tab PO DAILY acetaminophen 500 mg tablet 500 mg PO Q6H PRN (Reason: pain) Qty: 20 0RF meclizine 25 mg tablet 25 mg PO TID PRN (Reason: dizziness) Qty: 20 0RF loperamide 2 mg capsule 2 mg PO Q6H PRN (Reason: loose stool) Qty: 20 0RF ondansetron 4 mg tablet,disintegrating 4 mg PO Q6H PRN (Reason: nausea and vomiting) Qty: 14 0RF albuterol sulfate 90 mcg/actuation aerosol powdr breath activated 2 inh inhalation Q4-6H PRN (Reason: shortness of breath or wheezing) Qty: 1 0RF cefuroxime axetil 250 mg tablet 250 mg PO BID Qty: 14 0RF loratadine 10 mg tablet 10 mg PO DAILY quetiapine 400 mg tablet 400 mg PO BEDTIME polyethylene glycol 3350 17 gram Powder In Packet 17 g PO DAILY Qty: 30 0RF cyanocobalamin (vitamin B-12) 1,000 mcg tablet 1,000 mcg PO DAILY (DME) FreeStyle Lite Strips Strip See Rx Instructions .ROUTE BID Qty: 10 Rx Instructions: As directed betamethasone dipropionate 0.05 % lotion 1 appl topical BID PRN (Reason: psoriasis) Rx Instructions: apply to scalp calcipotriene 0.005 % ointment 1 appl topical BID PRN (Reason: flares) hydroxyzine HCl 25 mg tablet 25 mg PO TID PRN (Reason: itch) fluocinonide 0.05 % ointment 1 appl topical BID PRN (Reason: flares) fluticasone propionate 50 mcg/actuation spray,suspension 50 mcg intranasal DAILY Rx Instructions: 1 spray into each nostril (DME) nebulizers [place] See Rx Instructions .Route Rx Instructions: As directed naloxone 4 mg/actuation spray,non-aerosol 4 mg intranasal Q2M PRN (Reason: opioid overdose) 1 Days Qty: 2 2RF Rx Instructions: spray 1 dose into ONE nostril; alternate nostrils w each dose until help arrives ferrous sulfate 325 mg (65 mg iron) tablet 325 mg PO DAILY sucralfate 100 mg/mL suspension 10 ml PO QIDACHS Qty: 1000 1RF (DME) blood-glucose meter [FreeStyle Mcpherson Lite] Kit See Rx Instructions .ROUTE .MEDSUPPLY Qty: 1 Rx Instructions: As directed (DME) lancets [FreeStyle Lancets] 28 gauge misc See Rx Instructions .ROUTE BID Qty: 100 Rx Instructions: As directed chlorpheniramine maleate 4 mg tablet 4 mg PO Q6H PRN (Reason: itching) 30 Days Qty: 90 6RF prednisone 10 mg tablet PO oxycodone 5 mg tablet 5 mg PO TID PRN (Reason: pain) 30 Days Qty: 90 0RF Rx Instructions: Partial Fill upon patient request. Referrals: Claudia Villatoro MD [Primary Care Provider] - Interventions: ED Discharge Assessment Last Done: 03/21/24 09:28 Discharge Date/Time: 03/21/24 09:29 Print Language: Slovak
[2024-03-21] MEDS: Benzonatate 100 MG CAPSULE 200 MG PO (08:17)
[2024-03-21 08:30] VITALS: PULSE 80; RESP 28; O2SAT 94
[2024-03-21] MEDS: Albuterol Sulfate 5 MG, Albuterol/Iprat 2.5/0.5MG 3 ML 3 ML INHALE (08:30)
[2024-03-21 08:32] LABS: Influenza A PCR NEGATIVE (Negative); Influenza B PCR NEGATIVE (Negative); Resp Syncy Virus RNA Qual PCR NEGATIVE (Negative); SARS COV2 PCR INHOUSE NEGATIVE (Negative)
[2024-03-21] MEDS: dexAMETHasone sod phosphate 10 MG/ML VIAL PO (09:16)
[2024-03-21] MEDS: Ketorolac Tromethamine 15 MG/ML VIAL IM (09:17)
--- NOTE | 2024-03-21 09:20 | PC.NURSE ---
PT MEDICATED CHARTED, SHE IS TALKING IN FULL LONG SENTENCES WITH OCCASIONAL NON PRODUCTIVE COUGH. AWAITING DISPO
[2024-03-21 09:24] VITALS: BP 144/76; PULSE 87; RESP 18; TEMP 37.2; O2SAT 100
[2024-03-21 09:28] VITALS: BP 144/76; PULSE 87; RESP 18; TEMP 37.2; O2SAT 100
== END 2024-03-21 09:29 | disposition home or self-care (01) ==
PROVIDERS: Emergency Provider Emergency Medicine; PCP Internal Medicine
DX: J45.901 Unspecified asthma with (acute) exacerbation (principal); R06.02 Shortness of breath; R51.9 Headache, unspecified; R05.9 Cough, unspecified; E11.9 Type 2 diabetes mellitus without complications; I10 Essential (primary) hypertension; Z79.899 Other long term (current) drug therapy; Z03.818 Encounter for observation for suspected exposure to other biological agents ruled out
CPT/HCPCS: 0241U; 36415; 71046; 80048; 85025; 94640; 96372; 99284; J1100; J1885

== ENCOUNTER 2024-04-13 09:43 | Outpatient (AMB) | payer OTHER, SELFPAY ==
--- NOTE | 2024-04-13 09:46 | A.OFFVIS_ITS ---
Vital Signs 04/13/24 09:53 Height 4 ft 11 in Weight 181 lb 6 oz BMI 36.6 BP 166/79 H Blood Pressure Location Rt brachial Position Sitting Pulse 94 Pulse Source Pulse Oximeter Pulse Oximetry (%) 96 Oxygen Delivery Method Room Air Intake Visit Reasons: PILL COUNT Intake Note: Maye comes in today for a pill count to oxycodone, patient should have 21 tablets and presents with 24 tablets which she last took today 04/13/24 at 8am. Pain today 5 Automatic Pattern Edger Required: No Accompanied by: Self / Same As Patient Allergies No Known Allergies Allergy (Verified 04/13/24 09:53) HPI Comments Details: Maye is a very pleasant 54 year old female who presents to the office today for follow up chronic pain and chronic opioid therapy management. Patient is prescribed oxycodone 5mg tabs, take one tablet three times daily. Patient arrived today with the expectation of having 21 pills, she presented 24 pills which were counted in the presence of two staff members and returned to the patient in the original prescription bottle. This demonstrates responsible attitude toward patient's opioid medications. Pain is reported today as 5/10 and last dose of pain medication was taken at 8:00 this morning. Chronic pain is adequately managed on current opioid regimen with improvement in mobility and overall functioning. She denies side effects including nausea, constipation, somnolence, weakness, urinary retention, chest pain or syncope. Asthma has been troubling her recently. Taking prednisone, benzonatate and using nebulizer and both inhalers as prescribed. Non productive cough. Denies fevers, chest pain, weakness, syncope. 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 Previously: She was suspended for 6 months because UDS demonstrated tramadol in her urine. She was admitted slightly earlier on the request of her PCP - she developed renal insufficiency and she was taking large doses of NSAIDs to help her pain. Her risk of Opioid was low.? When she come back from suspension her opioid risk will become moderate. 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 Dizziness Headache Elevated lactic acid level Bronchitis Headache, migraine Asthma exacerbation Cough BABATUNDE (obstructive sleep apnea) Chronic pain syndrome Spondylosis of lumbar spine Low back pain Complex regional pain syndrome i of left lower limb Diabetic neuropathy Laryngotracheitis Essential hypertension Type 2 diabetes mellitus with unspecified complications Morbid obesity Anemia Back pain Pleuritic chest pain Fibromyalgia Hypothyroidism TIA (transient ischemic attack) Diet-controlled diabetes mellitus Depression Arthritis Sleep apnea Hypogammaglobulinemia Pulmonary embolism Surgical History History of esophagogastroduodenoscopy (EGD) Hx of colonoscopy S/P total abdominal hysterectomy History of cholecystectomy History of bariatric surgery Family History Mother Diabetes Stroke Family/Other Diabetes Father Diabetes Maternal Aunt Cancer Social History Household Members: None Housing: Apartment Are you a primary workforce investment act career manager to a significant other at home: No Do you presently have visiting nurse or other home services: No (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 Answers questions appropriately. Fully engaged in examination. Skin: warm, dry, intact. HEENT: Normocephalic. Hearing intact. Cardiac: External chest normal in appearance. Respiratory: Bronchial cough, LSCTAB. Abdomen: without gross distension. MS: No obvious swelling or deformities. Able to transition from sit to stand unassisted. Ambulates with use of a cane Neurological: Oriented to person, place, time and situation. Thought process intact. Psychiatric: Appropriate mood and affect. Good judgment and insight. Results Reviewed Results Reviewed: 11/12/2021EXAMINATION: THORACIC AND LUMBAR SPINE X-RAY FINDINGS: Thoracic spine: Exam is limited due to light film technique and patient body habitus. There is mild curvature of the midthoracic spine to the right. Bone alignment is otherwise normal. No fracture or dislocation is seen. There is mild multilevel degenerative disc disease of the midthoracic spine. Paraspinal soft tissues are unremarkable. Lumbar spine: Bone alignment is normal. No fracture or dislocation is seen. Disc spaces are normal. There is lower lumbar spine facet arthritis.? XR/XR lumbar spine 2-3V IMPRESSION: No fracture or dislocation seen. Degenerative changes. Evaluation of the thoracic spine is limited due to patient body habitus.? 03/03/2021 MR LUMBAR SPINE WITHOUT CONTRAST FINDINGS: Coronal Alignment:?Normal. Sagittal Alignment:?2 mm of grade 1 spondylolisthesis at L5-S1 has developed since the previous exam. Trace retrolisthesis at L3-L4 is stable. Lumbosacral Junction: ?Normal. Vertebral Bodies: Normal height. Bone Marrow:? Large benign vertebral hemangioma in the L4 vertebral body on the left is stable. There is an 8 mm probable atypical benign hemangioma in the L3 vertebral body. No suspicious marrow replacing process or bone marrow edema. Conus Medullaris:?Terminates at L1.?Morphology and signal is normal. Intradural Nerve Roots: Within normal limits. 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 Maximum diameter is 4 mm, unchanged. SPINAL LEVELS: L5-S1: Mild loss of disc space height is noted with disc desiccation with minimal progression of disc space height loss from previous study, with development of slight anterolisthesis. There is marked facet arthropathy on the right progressed from previous study and moderate facet arthropathy on the left also slightly progressed. Right-sided facet joint effusion noted on current exam with a small synovial cyst along its posterior margin with subchondral marrow edema on both sides of the facet joint consistent with facet inflammatory changes. There is anterior and right paravertebral spondylosis and there is mild disc bulging with a superimposed right-sided foraminal disc herniation progressed from previous exam. There is mild right-sided neural foraminal stenosis without neural impingement and there is no significant canal stenosis. L4-L5: Disc space height and signal are well maintained. No significant disc bulge or herniation and no significant spondylosis. Mild facet arthrosis bilaterally noted without significant canal or neural foraminal stenosis. L3-L4: Mild loss of disc space height is noted with mild disc desiccation and slight retrolisthesis, stable in appearance. No significant disc bulge or herniation. No significant canal or neural foraminal stenosis. Minor spondylosis is unchanged. L2-L3: Disc space height and signal are well maintained without disc bulge or herniation and no significant facet arthrosis, canal or neural foraminal stenosis, stable in appearance. L1-L2: Disc space height and signal are well maintained without disc bulge or herniation and no significant spondylosis. No significant facet arthrosis, canal or neural foraminal stenosis. Paraspinal/Retroperitoneal: The paravertebral soft tissues appear unremarkable. There is a 2.9 cm probable parapelvic cyst in the mid left kidney increased in size from previous exam. A 1 cm cortical cyst lateral cortex upper pole of right kidney, unchanged. Partially imaged exophytic cortical cyst lateral cortex mid left kidney, increased in size. MR/MR lumbar spine wo con IMPRESSION: 1. Progression of facet arthropathy at L5-S1 right more the left with facet inflammatory changes on the right on the current study, with development of grade 1 spondylolisthesis with progression of disc degenerative change. Development of right foraminal disc herniation and minimal disc bulging with mild right-sided foraminal stenosis since prior exam. ? 2. Mild bilateral facet arthropathy at L4-L5, stable in appearance. ? 3. Thickened, fatty filum, consistent with a benign fibrolipoma of the filum terminale, unchanged. ? 4. Multiple bilateral renal cysts, some of which have increased in size on the left, probably unchanged from previous CT abdomen of 03/16/2019. Assessment & Plan Assessment & Plan (1) Spondylosis of lumbar joint: Code(s): M47.816 - Spondylosis without myelopathy or radiculopathy, lumbar region Category: Medical (2) Knee pain, left: Code(s): M25.562 - Pain in left knee Category: Medical Qualifiers: Chronicity: chronic Qualified Code(s): M25.562 - Pain in left knee; G89.29 - Other chronic pain (3) Low back pain: Code(s): M54.5 - Low back pain Category: Medical Qualifiers: Back pain laterality: bilateral Chronicity: chronic Sciatica presence: without sciatica Qualified Code(s): M54.50 - Low back pain, unspecified; G89.29 - Other chronic pain (4) Disc degeneration, lumbosacral: Code(s): M51.37 - Other intervertebral disc degeneration, lumbosacral region Category: Medical (5) Spondylosis of cervical spine: Code(s): M47.812 - Spondylosis without myelopathy or radiculopathy, cervical region Category: Medical (6) Osteoporosis: Code(s): M81.0 - Age-related osteoporosis without current pathological fracture Category: Medical (7) Sacroiliac joint dysfunction of left side: Code(s): M53.3 - Sacrococcygeal disorders, not elsewhere classified Category: Medical (8) Left hip pain: Code(s): M25.552 - Pain in left hip Category: Medical Plan [place] was reviewed and without concerns. No obvious signs of diversion, abuse or misuse of the opioid medications. Will send in prescription for oxycodone 5mg TID with an advanced date of 04/20/24 Cepacol lozenges as needed, continue with other medications as prescribed All questions and concerns have been answered and patient agrees with the plan. Follow up with pulmonology in 1 week as scheduled Follow up in 1 month, sooner if needed. Patient was advised to seek treatment in the emergency room for worsening shortness of breath, chest pain, syncope, fevers or if using inhaler more than prescribed Medications: New benzocaine-menthol 15-2.6 mg 1 raji mucous membrane Q2-4H PRN 16 ea 1RF pain Refilled oxycodone Partial Fill upon patient request. 5 mg PO TID 30 days PRN 90 tabs 0RF pain Coding Level of Care Code Est Pt Level 4 (72961) Diagnoses Spondylosis of lumbar joint M47.816 Chronic pain of left knee M25.562; G89.29 Chronicity: chronic Chronic bilateral low back pain without sciatica M54.50; G89.29 Back pain laterality: bilateral Chronicity: chronic Sciatica presence: without sciatica Disc degeneration, lumbosacral M51.37 Spondylosis of cervical spine M47.812 Osteoporosis M81.0 Sacroiliac joint dysfunction of left side M53.3 Left hip pain M25.552
[2024-04-13 09:53] VITALS: BP 166/79; PULSE 94; O2SAT 96; BMI 36.6
== END 2024-04-13 10:08 | disposition home or self-care (01) ==
PROVIDERS: PCP Internal Medicine; Visit Provider Registered Nurse Emergency
DX: M47.816 Spondylosis without myelopathy or radiculopathy, lumbar region (principal); M25.562 Pain in left knee; G89.29 Other chronic pain; M54.50 Low back pain, unspecified; M51.37 Other intervertebral disc degeneration, lumbosacral region; M47.812 Spondylosis without myelopathy or radiculopathy, cervical region; M81.0 Age-related osteoporosis without current pathological fracture; M53.3 Sacrococcygeal disorders, not elsewhere classified; M25.552 Pain in left hip
CPT/HCPCS: 99214

== ENCOUNTER → 2024-04-13 09:43 | Outpatient (BNVA) | payer OTHER, SELFPAY | PROVIDERS: PCP Internal Medicine; Visit Provider Registered Nurse Emergency | DX: M47.816 Spondylosis without myelopathy or radiculopathy, lumbar region (principal); G89.29 Other chronic pain; M25.562 Pain in left knee; M54.50 Low back pain, unspecified; M51.37 Other intervertebral disc degeneration, lumbosacral region; M47.812 Spondylosis without myelopathy or radiculopathy, cervical region; M81.0 Age-related osteoporosis without current pathological fracture; M53.3 Sacrococcygeal disorders, not elsewhere classified; M25.552 Pain in left hip; Z79.891 Long term (current) use of opiate analgesic | CPT/HCPCS: 99212 ==

== ENCOUNTER 2024-04-13 11:04 | Emergency (ER) | payer OTHER, SELFPAY ==
[2024-04-13] VITALS (8 sets, daily range): BP systolic 129–155; BP diastolic 63–90; PULSE 76–105; RESP 16–22; TEMP 36.8–37; O2SAT 95–99; BMI 37.0
--- NOTE | ~2024-04-13 | XR_ITS ---
EXAMINATION: XR CHEST CLINICAL INFORMATION: Cough. Shortness of breath. COMPARISON: Chest radiograph dated 03/21/2024. TECHNIQUE: 2 views of the chest were obtained. FINDINGS: The cardiac silhouette is normal in size. The lungs are clear. There is no pleural effusion or pneumothorax. There is no acute osseous abnormality. XR/XR chest 2V IMPRESSION: No acute cardiopulmonary disease.
--- NOTE | ~2024-04-13 | CT_ITS ---
EXAMINATION: CT ANGIOGRAM OF THE CHEST WITH AND WITHOUT CONTRAST (CT PULMONARY ANGIOGRAM FOR PE) CLINICAL INFORMATION: Reason for Exam chest pain, dyspnea, hx PE in past COMPARISON: CT abdomen from 02/19/2024, CT chest from 11/13/2021 TECHNIQUE: Prior to contrast administration, noncontrast localization images were obtained. Subsequently, multidetector volumetric imaging was performed from the thoracic inlet to below the diaphragms following the administration of 80 mL Omnipaque 350 intravenous contrast. No contrast reaction reported Sagittal, coronal, and MIP oblique sagittal reformatted images were obtained on the CT workstation, uploaded to PACS, and reviewed. This CT examination was performed using dose optimization techniques as appropriate, variously including the following: *Automated exposure control *Adjustment of mA and/or kV according to patient size (this includes techniques or standardized protocols for targeted exams where dose is matched to indication/reason for exam; i.e. extremities or head) *Use of iterative reconstruction technique Total exam dose-length product 306 mGy-cm FINDINGS: QUALITY OF STUDY/CONTRAST BOLUS: Satisfactory. PULMONARY ARTERIES: No pulmonary emboli. Main pulmonary artery is not enlarged. THORACIC AORTA: No aneurysm. LUNG/PLEURA: Respiratory motion artifact slightly limits evaluation. Bibasilar atelectasis. Bilateral calcified granuloma are redemonstrated. Central airways are patent. No pneumothorax. No large MEDIASTINUM: Heart is not enlarged. No pericardial effusion. No coronary calcifications. No enlarged lymph nodes per size criteria. Visualized portions of the thyroid are unremarkable. No evidence of septal bowing or right heart strain. CHEST WALL/AXILLA: No axillary or internal mammary lymphadenopathy. OSSEOUS STRUCTURES: The level degenerative changes of the thoracolumbar spine UPPER ABDOMEN: Postsurgical changes of the stomach. Status post cholecystectomy. Bilateral renal hypodense foci demonstrating fluid attenuation statistically representing cysts, not requiring follow-up. No reflux of contrast into the hepatic veins to suggest elevated right heart pressures. CT/CT angio chest PE protocol IMPRESSION: 1. No pulmonary emboli. 2. Postsurgical changes of the stomach. 3. Status post cholecystectomy. 4. Bilateral renal hypodense foci demonstrating fluid attenuation statistically representing cysts, not requiring follow-up.
--- NOTE | 2024-04-13 11:12 | ED.GENADULT ---
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 She has seen PCP and been prescribed prednisone, albuterol inhaler and nebulizer and states her symptoms have not improved at all since being diagnosed and none of the medications have improved her symptoms. She also complains of posterior rib pain with coughing. She states that her rib pain feels similar to her previous PE. MD complaint: Cough, dyspnea, headache Onset (ago): month(s) Location: head and chest Severity: severe and similar to prior episodes Quality: aching Pain Consistency: constant Relieving factors: none Associated symptoms: cough, headaches and shortness of breath Treatments prior to arrival: other Related Data Home Medications ?Medication ?Instructions ?Recorded ?Confirmed montelukast 10 mg tablet 10 mg PO BEDTIME 08/02/20 01/26/24 cyanocobalamin (vitamin B-12) 1,000 mcg PO DAILY 11/05/20 01/26/24 1,000 mcg tablet escitalopram oxalate 10 mg tablet 1 tab PO DAILY 08/21/22 01/26/24 cholecalciferol (vitamin D3) 25 1 tab PO DAILY 11/28/22 01/26/24 mcg (1,000 unit) tablet valsartan 160 mg tablet 1 tab PO DAILY 11/28/22 01/26/24 betamethasone dipropionate 0.05 % 1 appl topical BID PRN psoriasis 02/12/23 01/26/24 lotion blood sugar diagnostic (FreeStyle #10 ea 02/12/23 01/26/24 Lite Strips) calcipotriene 0.005 % topical 1 appl topical BID PRN flares 02/12/23 01/26/24 ointment fluocinonide 0.05 % topical 1 appl topical BID PRN flares 02/12/23 01/26/24 ointment fluticasone propionate 50 50 mcg intranasal DAILY 02/12/23 01/26/24 mcg/actuation nasal spray,suspension hydroxyzine HCl 25 mg tablet 25 mg PO TID PRN itch 02/12/23 01/26/24 nebulizers 04/02/23 01/26/24 loratadine 10 mg tablet 10 mg PO DAILY 08/22/23 01/26/24 quetiapine 400 mg tablet 400 mg PO BEDTIME 08/22/23 01/26/24 ferrous sulfate 325 mg (65 mg 325 mg PO DAILY 11/08/23 01/26/24 iron) tablet lorazepam 0.5 mg tablet 0.25 mg PO .every other day PRN 11/10/23 01/26/24 Anxiety zolpidem 10 mg tablet 10 mg PO BEDTIME Insomnia 11/22/23 01/26/24 blood-glucose meter (FreeStyle #1 ea 12/08/23 01/26/24 [place] Lite kit) lancets 28 gauge (FreeStyle #100 ea 12/08/23 01/26/24 Lancets) prednisone 10 mg tablet mg PO 03/16/24 alclometasone 0.05 % topical cream appl topical 04/13/24 tacrolimus 0.1 % topical ointment topical 04/13/24 Previous Rx's ?Medication ?Instructions ?Recorded dicyclomine 20 mg tablet 20 mg PO QID PRN abdominal pain 06/27/22 #20 tabs ondansetron 4 mg disintegrating 4 mg PO TID PRN nausea and 11/27/22 tablet vomiting 5 days #20 tabs zinc acetate 50 mg (zinc) capsule 100 mg (2 x 50 mg (zinc)) PO DAILY 12/02/22 (Galzin) 30 days #60 caps naloxone 4 mg/actuation nasal spray 4 mg intranasal Q2M PRN opioid 02/24/23 overdose 1 day #2 ea immune glob,gamm(IgG) 10 %-pro-IgA 40 g IV Q4W #400 mL 05/28/23 0 to 50 mcg/mL intravenous solution (Privigen) acetaminophen 500 mg tablet 500 mg PO Q6H PRN pain #20 tabs 06/09/23 polyethylene glycol 3350 17 gram 17 g PO DAILY #30 ea 08/25/23 oral powder packet albuterol sulfate 2.5 mg/3 mL 2.5 mg (3 mL) inhalation Q4H PRN 09/02/23 (0.083 %) solution for nebulization shortness of breath or wheezing 30 days #360 mL albuterol sulfate 90 mcg/actuation 2 puff inhalation QID PRN 09/02/23 aerosol inhaler (Ventolin HFA) shortness of breath or wheezing 30 days #18 grams budesonide 160 mcg-glycopyr 9 2 inh inhalation BID 30 days #10.7 09/02/23 mcg-formot 4.8 mcg/actuation HFA grams inhaler (Breztri Aerosphere) lidocaine 5 % topical patch 1 patch topical BID #30 ea 09/21/23 meclizine 25 mg tablet 25 mg PO TID PRN dizziness #20 tabs 10/15/23 apixaban 2.5 mg tablet (Eliquis) 2.5 mg PO BID #180 tabs 11/09/23 gabapentin 300 mg capsule 600 mg (2 x 300 mg) PO BID 90 days 12/08/23 #360 caps sucralfate 100 mg/mL oral 10 ml PO QIDACHS #1,000 mL 12/08/23 suspension chlorpheniramine maleate 4 mg 4 mg PO Q6H PRN itching 30 days 12/24/23 tablet #90 tabs albuterol sulfate 90 mcg/actuation 2 inh inhalation Q4-6H PRN 02/19/24 breath activated powder inhaler shortness of breath or wheezing #1 ea loperamide 2 mg capsule 2 mg PO Q6H PRN loose stool #20 02/19/24 caps ondansetron 4 mg disintegrating 4 mg PO Q6H PRN nausea and 02/19/24 tablet vomiting #14 tabs cefuroxime axetil 250 mg tablet 250 mg PO BID #14 tabs 02/27/24 benzonatate 200 mg capsule 200 mg PO TID PRN cough 30 days 02/28/24 #90 caps codeine 10 mg-guaifenesin 100 mg/5 10 ml PO Q6H PRN cough 10 days 02/28/24 mL oral liquid #300 mL omeprazole 40 mg capsule,delayed 40 mg PO BID #180 caps 03/06/24 release amoxicillin 875 mg-potassium 1 tab PO BID 10 days #20 tabs 03/20/24 clavulanate 125 mg tablet benzonatate 200 mg capsule 200 mg PO BID PRN cough 30 days 03/20/24 #30 caps benzonatate 100 mg capsule 100 mg PO BID PRN cough 7 days #14 03/21/24 caps benzocaine 15 mg-menthol 2.6 mg 1 raji mucous membrane Q2-4H PRN 04/13/24 lozenges pain #16 ea oxycodone 5 mg tablet 5 mg PO TID PRN pain 30 days #90 04/13/24 tabs Allergies Allergy/AdvReac Type Severity Reaction Status Date / Time No Known Allergies Allergy Verified 04/13/24 11:22 Review of Systems Review of Systems: As per HPI. Yes all other systems are reviewed and are negative Constitutional: Constitutional: Reports as per HPI [facility] Past Medical History Medical History Tracheomalacia Constipation Knee pain, left Left hip pain Upper respiratory infection Weight gain Acute bronchitis Abdominal pain Persistent cough COVID-19 History of peristent cough as a child Epigastric pain Bile salt-induced diarrhea Acute severe exacerbation of moderate persistent asthma History of COVID-19 Osteoporosis Spondylosis of cervical spine Asthma-COPD overlap syndrome Spondylosis of lumbar joint Nausea vomiting and diarrhea Disc degeneration, 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 Dizziness Headache Elevated lactic acid level Bronchitis Headache, migraine Asthma exacerbation Cough BABATUNDE (obstructive sleep apnea) Chronic pain syndrome Spondylosis of lumbar spine Low back pain Complex regional pain syndrome i of left lower limb Diabetic neuropathy Laryngotracheitis Essential hypertension Type 2 diabetes mellitus with unspecified complications Morbid obesity Anemia Back pain Pleuritic chest pain Fibromyalgia Hypothyroidism TIA (transient ischemic attack) Diet-controlled diabetes mellitus Depression Arthritis Sleep apnea Hypogammaglobulinemia Pulmonary embolism Surgical History History of esophagogastroduodenoscopy (EGD) Hx of colonoscopy S/P total abdominal hysterectomy History of cholecystectomy History of bariatric surgery Family History Family History Mother Diabetes Stroke Family/Other Diabetes Father Diabetes Maternal Aunt Cancer Social History Social History Household Members: None Housing: Apartment Are you a primary hospice spiritual care coordinator to a significant other at home: No Do you presently have 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) Alcohol intake: never Patient Tobacco Use Status: Never used Tobacco e-Cigarette/Vaping Use: Never Used Second Hand Smoke Exposure: No Substance Use Type: Opiates Advance Directives: No Advance Directives Date on File: 05/23/21 Do you have a plan to hurt others: No Plan service: No Current occupational status: unemployed and disabled Physical Exam ED Vital Signs: Vital Signs - 24 hr 04/13/24 11:10 04/13/24 12:00 04/13/24 12:59 Temperature 98.3 F 98.3 F Pulse Rate 105 H 81 76 Respiratory Rate 22 H 18 Blood Pressure 129/90 H 133/66 Pulse Oximetry 98 98 Oxygen Delivery Method Room Air Room Air 04/13/24 14:52 04/13/24 14:56 04/13/24 15:07 Temperature 98.6 F Pulse Rate 101 H Respiratory Rate 20 18 Blood Pressure 136/63 Pulse Oximetry 95 96 Oxygen Delivery Method Room Air 04/13/24 17:42 Temperature 98.6 F Pulse Rate 87 Respiratory Rate Blood Pressure 155/74 H Pulse Oximetry 99 Oxygen Delivery Method Room Air BMI result Body Mass Index 37.0 Vital signs have been reviewed and appear to be correct. Blood pressure normal. Heart rate initially mildly tachycardic, improved while in the emergency department. Respiratory rate normal. Temperature normal. Oxygen saturation normal. Const General: cooperative and no acute distress Orientation/consciousness: oriented to person, oriented to place, oriented to time and patient oriented x3 Limitations: no limitations HENMT Head: Yes normocephalic and Yes atraumatic Ears: external ears normal General nose exam: Normal external nose present Face and sinus: Yes face symmetric Mouth: oropharynx normal and moist mucous membranes Throat: Yes uvula midline Eyes Pupils: Equal, round and reactive pupils present Neck Neck: Yes normal visual inspection and Yes supple Resp Effort & Inspection: normal respiratory effort, able to speak in complete sentences, Actively coughing Quality: actively coughing, no retractions, not tachypneic and no use of accessory muscles Auscultation: clear to auscultation bilaterally, no crackles, no rhonchi, no wheezes and diminished lung sounds bilateral Cardio Rate: regular rate Rhythm: regular rhythm Heart sounds: S1 normal heart sound present and S2 normal heart sound present GI Palpation (GI): Soft to palpation and nontender Auscultation: normoactive bowel sounds General: Yes no CVA tenderness Back/Spine/Pelvis Back: no CVA tenderness Skin General skin exam: elasticity normal and turgor normal Neuro General: oriented to person, oriented to place, oriented to time, patient oriented x3, moves all extremities, no focal motor deficits and CN's II-XI intact bilaterally Cranial nerves: Yes Equal, round and reactive pupils present Cognition (Neuro): normal cognition Extrem General: Yes full ROM, Yes no pedal edema and Yes no calf tenderness Psych Mental Status: mental status grossly normal Affect: normal affect Thought process: Normal thought process present Course Course Course Narrative: This is an RME: Additional HPI, ROS, PE not included below will be deferred to primary provider. RME assessment and note performed by: Arielle Valenzuela PA-C This is a 10-[id number]-mub-lao speaking female, with a hx of asthma, COVID, HTN, and DM, who presents to the ER with complaints of persistent cough, SOB, and wheezing x3 weeks Patient was recently seen in the emergency room on March 21 for an asthma exacerbation, was treated with a 1 time dose of Decadron and discharged on Tessalon. Pt was seen two weeks ago by her PCP who treated her with course of prednisone. She states that she is still taking prednisone (cannot find in external med hx), using nebulizers without relief. Endorsing chest pain and headaches. O2 97% on RA. Lungs with inspiratory and expiratory wheezes. Plan: Labs, EKG, CXR Medications Administered Discontinued Medications Generic Name Dose Route Start Last Admin Trade Name Renato PRN Reason Stop Dose Admin Albuterol Sulfate 2.5 mg/ 0 mg 04/13/24 12:55 04/13/24 12:59 Albuterol/Ipratropium 3 ml INHALE 04/13/24 12:56 1 dose ONCE ONE Administration Diphenhydramine HCl 25 mg 04/13/24 14:51 04/13/24 15:02 Diphenhydramine Hcl 50 Mg/Ml Vial IVPUSH 04/13/24 14:52 25 mg ONCE ONE Administration Guaifenesin/Codeine Phosphate 5 ml 04/13/24 13:19 04/13/24 14:10 Guaifen/Codeine Sf 200/20/10ml 10 Ml Liquid PO 04/13/24 13:20 5 ml ONCE ONE Administration Sodium Chloride 1,000 mls @ 999 mls/hr 04/13/24 14:45 04/13/24 15:55 Ns IV 04/13/24 15:45 Infused .Q1H1M OMERO Infusion Iohexol 100 ml 04/13/24 15:38 04/13/24 15:38 Iohexol 350 Mg/Ml 100 Ml Infus..Btl IV 04/13/24 15:39 65 ml ONCE ONE Administration Metoclopramide HCl 10 mg 04/13/24 14:39 04/13/24 15:02 Metoclopramide Hcl 10 Mg/2 Ml Vial IVPUSH 04/13/24 14:40 10 mg ONCE ONE Administration Morphine Sulfate 2 mg 04/13/24 14:38 04/13/24 14:56 Morphine Sulfate 2 Mg/Ml Cartridge IVPUSH 04/13/24 14:39 2 mg ONCE ONE Administration Protocol Medical Decision Making Medical Decision Making MDM Narrative: Patient is a 54-year-old Chilean-speaking female with history of tracheomalacia, gastric bypass, asthma, migraines, chronic bronchitis, IBS, T2 DM, TIA, hypothyroidism, fibromyalgia, PE on Eliquis, recently diagnosed with COVID on 02/18 presenting to the emergency department with complaint of headache, nonproductive cough, shortness of breath, wheezing ever since being diagnosed with COVID. On exam patient is awake, A+Ox3, VS WNL, afebrile, normal neurological exam without focal deficits, physical exam findings as above. Given reported symptoms and physical exam findings, initial differential includes other viral illness, flu, RSV, colitis, pneumonia. PE less likely as patient is on Eliquis, but given ongoing nature of symptoms and patient's report of it feeling similar to prior PEs, will obtain CTA chest. Labs notable for slight leukocytosis, chronic anemia not at transfusable level, mildly elevated BUN, negative troponin. Patient denies any hematochezia, melena. IV fluids ordered. X-ray chest notable for no evidence of pneumonia. CTA chest notable for no evidence of PE. My interpretation is in agreement with the radiologist's interpretation. No hypoxia noted on ambulation trial. COVID, flu, and RSV negative today. Full respiratory panel pending, will update patient with any positive results requiring intervention. EKG shows normal sinus rhythm. 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 Patient states that she did not feel she needed to come to the hospital today but that when she went to pain management they were concerned about her cough and sent her here. Patient reports she feels stable to go home and has adequate medications for her symptoms there. 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 Return precautions discussed. Patient verbalized understanding of and agreement with plan. Differential Diagnosis Differential Diagnoses: The differential diagnosis associated with the presentation includes As per MDM. Admission/Observation Consideration of admission/observation: Escalation of care including admission/observation considered Patient would have been admitted to the hospital had their work up had any findings where hospital admission was appropriate and their clinical presentation warranted hospital admission. Lab Data [facility] Lab Attestation statement: I reviewed the patient's lab results. As per MDM. 04/13/24 14:44 04/13/24 12:49 Labs: Lab Results 04/13/24 04/13/24 04/13/24 Range/Units 12:48 12:49 14:44 WBC 11.4 H (4.8-10.8) X10*3/uL RBC 3.75 L (4.20-5.50) X10*6/uL Hgb 8.9 L (12.0-16.0) g/dl Hct 29.5 L (37.0-47.0) % MCV 78.7 L (80.0-98.0) fL MCH 23.7 L (27.0-33.0) pg MCHC 30.2 L (31.0-35.0) g/dl RDW 21.3 H (11.0-16.0) % Plt Count 270 D (160-400) X10*3/uL MPV 9.1 L (9.4-12.3) fL Immature Gran % (Auto) 1.3 H (0.0-0.4) % Neut % (Auto) 75.0 H (45-73) % Lymph % (Auto) 17.4 L (20-40) % [place] % (Auto) 5.4 (2-11) % Eos % (Auto) 0.7 (0-4) % Baso % (Auto) 0.2 (0-2) % Lymph # (Auto) 2.0 (1.2-4.9) X10*3/uL [place] # (Auto) 0.6 (0.1-1.2) X10*3/uL Eos # (Auto) 0.1 (0.0-0.4) X10*3/uL Baso # (Auto) 0.0 (0.0-0.2) X10*3/uL Abs Immat Gran (auto) 0.15 H (0.00-0.03) X10*3/uL Absolute Neuts (auto) 8.5 H (2.0-8.3) x10*3/uL Absolute Nucleated RBC 0.000 (0.0-0.012) X10*3/uL Nucleated RBC % (auto) 0.0 (0.0-0.2) /100WBC Sodium 140 (135-145) mmol/L Potassium 4.3 (3.3-5.1) mmol/L Chloride 108 (96-108) mmol/L Carbon Dioxide 23 (22-29) mmol/L Anion Gap 13 (12-20) BUN 20 H (9-16) mg/dL Creatinine 1.32 (0.5-1.4) mg/dL Estim Creat Clear Calc 44.9 Estimated GFR 42 Random Glucose 84 (60-115) mg/dL Calcium 9.9 (8.4-10.2) mg/dL Total Bilirubin 0.3 (0.0-1.0) mg/dL Direct Bilirubin 0.1 (0.0-0.5) mg/dL AST 16 (5-31) U/L ALT 23 (0-31) U/L Alkaline Phosphatase 96 (39-117) U/L Troponin I High Sens 3.7 (<3.5-17.0) ng/L B-Natriuretic Peptide 26 (<100) pg/mL Total Protein 6.7 (6.5-8.0) g/dL Albumin 3.9 (3.5-5.0) g/dL Influenza Type A (PCR) NEGATIVE (Negative) Influenza Type B (PCR) NEGATIVE (Negative) RSV RNA Qual (PCR) NEGATIVE (Negative) SARS-CoV-2 RNA (RT-PCR) NEGATIVE (Negative) Independent Interpretation I performed an independent interpretation of an: EKG (Normal sinus rhythm, rate 97 beats per minute, normal AK interval and QTC, no significant change from prior), Plain X-Ray and CT Scan Interpretation: No evidence of pneumonia a chest x-ray. No evidence of PE on CTA chest. Radiology Impression Radiologist Impression: CT/CT angio chest PE protocol IMPRESSION: 1. No pulmonary emboli. 2. Postsurgical changes of the stomach. 3. Status post cholecystectomy. 4. Bilateral renal hypodense foci demonstrating fluid attenuation statistically representing cysts, not requiring follow-up. XR/XR chest 2V IMPRESSION: No acute cardiopulmonary disease. External Record Review External record reviewed: Inpatient record, Office record and Outpatient record Chronic Conditions Patient?s care impacted by: Other Discharge Plan Discharge Clinical Impression: Asthma with exacerbation Patient Disposition: Home, Self-Care Instructions: Asthma (DC), Chronic Lung Disease and Infection Prevention (ED) Additional Instructions: You were evaluated in the emergency department today for ongoing cough and shortness of breath. Your evaluation including labs, EKG, chest x-ray, CT scan of chest did not reveal evidence of conditions requiring emergent medical treatment at this time. We recommend following up with your primary care provider this week. You may need to see your pipe layer given the ongoing nature of your symptoms after ernesto the COVID virus. You were tested for several other respiratory viruses today but the results are still pending, you will be contacted with any positive results. Return to the emergency department if you develop worsening shortness of breath or difficulty breathing, chest pain, palpitations, fever or any other concerning symptoms. Prescriptions: No Action ondansetron 4 mg tablet,disintegrating 4 mg PO TID PRN (Reason: nausea and vomiting) 5 Days Qty: 20 0RF Galzin 50 mg (zinc) capsule 100 mg PO DAILY 30 Days Qty: 60 1RF Privigen 10 % solution 40 g IV Q4W Qty: 400 11RF Rx Instructions: PER PATIENT, NEXT DOSE ~08/25/23 albuterol sulfate 2.5 mg /3 mL (0.083 %) solution for nebulization 2.5 mg inhalation Q4H PRN (Reason: shortness of breath or wheezing) 30 Days Qty: 360 11RF albuterol sulfate [Ventolin HFA] 90 mcg/actuation HFA aerosol inhaler 2 puff inhalation QID PRN (Reason: shortness of breath or wheezing) 30 Days Qty: 18 11RF Breztri Aerosphere 160-9-4.8 mcg/actuation HFA aerosol inhaler 2 inh inhalation BID 30 Days Qty: 10.7 11RF lidocaine 5 % adhesive patch,medicated 1 patch topical BID Qty: 30 6RF Rx Instructions: leave on most painful area for up to 12 hrs lorazepam 0.5 mg tablet 0.25 mg PO .every other day PRN (Reason: Anxiety) gabapentin 300 mg capsule 600 mg PO BID 90 Days Qty: 360 3RF benzonatate 200 mg capsule 200 mg PO TID PRN (Reason: cough) 30 Days Qty: 90 3RF codeine-guaifenesin 10-100 mg/5 mL liquid 10 ml PO Q6H PRN (Reason: cough) 10 Days Qty: 300 0RF omeprazole 40 mg capsule,delayed release(DR/EC) 40 mg PO BID Qty: 180 1RF amoxicillin-pot clavulanate 875-125 mg tablet 1 tab PO BID 10 Days Qty: 20 0RF benzonatate 200 mg capsule 200 mg PO BID PRN (Reason: cough) 30 Days Qty: 30 6RF montelukast 10 mg tablet 10 mg PO BEDTIME Eliquis 2.5 mg Tablet 2.5 mg PO BID Qty: 180 0RF dicyclomine 20 mg tablet 20 mg PO QID PRN (Reason: abdominal pain) Qty: 20 0RF escitalopram oxalate 10 mg tablet 1 tab PO DAILY zolpidem 10 mg tablet 10 mg PO BEDTIME valsartan 160 mg tablet 1 tab PO DAILY cholecalciferol (vitamin D3) 25 mcg (1,000 unit) tablet 1 tab PO DAILY acetaminophen 500 mg tablet 500 mg PO Q6H PRN (Reason: pain) Qty: 20 0RF meclizine 25 mg tablet 25 mg PO TID PRN (Reason: dizziness) Qty: 20 0RF loperamide 2 mg capsule 2 mg PO Q6H PRN (Reason: loose stool) Qty: 20 0RF ondansetron 4 mg tablet,disintegrating 4 mg PO Q6H PRN (Reason: nausea and vomiting) Qty: 14 0RF albuterol sulfate 90 mcg/actuation aerosol powdr breath activated 2 inh inhalation Q4-6H PRN (Reason: shortness of breath or wheezing) Qty: 1 0RF cefuroxime axetil 250 mg tablet 250 mg PO BID Qty: 14 0RF loratadine 10 mg tablet 10 mg PO DAILY quetiapine 400 mg tablet 400 mg PO BEDTIME polyethylene glycol 3350 17 gram Powder In Packet 17 g PO DAILY Qty: 30 0RF benzonatate 100 mg capsule 100 mg PO BID PRN (Reason: cough) 7 Days Qty: 14 0RF cyanocobalamin (vitamin B-12) 1,000 mcg tablet 1,000 mcg PO DAILY (DME) FreeStyle Lite Strips Strip See Rx Instructions .ROUTE BID Qty: 10 Rx Instructions: As directed betamethasone dipropionate 0.05 % lotion 1 appl topical BID PRN (Reason: psoriasis) Rx Instructions: apply to scalp calcipotriene 0.005 % ointment 1 appl topical BID PRN (Reason: flares) hydroxyzine HCl 25 mg tablet 25 mg PO TID PRN (Reason: itch) fluocinonide 0.05 % ointment 1 appl topical BID PRN (Reason: flares) fluticasone propionate 50 mcg/actuation spray,suspension 50 mcg intranasal DAILY Rx Instructions: 1 spray into each nostril (DME) nebulizers Misc See Rx Instructions .Route Rx Instructions: As directed naloxone 4 mg/actuation spray,non-aerosol 4 mg intranasal Q2M PRN (Reason: opioid overdose) 1 Days Qty: 2 2RF Rx Instructions: spray 1 dose into ONE nostril; alternate nostrils w each dose until help arrives ferrous sulfate 325 mg (65 mg iron) tablet 325 mg PO DAILY sucralfate 100 mg/mL suspension 10 ml PO QIDACHS Qty: 1000 1RF (DME) blood-glucose meter [FreeStyle [place] Lite] Kit See Rx Instructions .ROUTE .MEDSUPPLY Qty: 1 Rx Instructions: As directed (DME) lancets [FreeStyle Lancets] 28 gauge misc See Rx Instructions .ROUTE BID Qty: 100 Rx Instructions: As directed chlorpheniramine maleate 4 mg tablet 4 mg PO Q6H PRN (Reason: itching) 30 Days Qty: 90 6RF prednisone 10 mg tablet PO tacrolimus 0.1 % ointment topical alclometasone 0.05 % cream topical benzocaine-menthol 15-2.6 mg lozenge 1 raji mucous membrane Q2-4H PRN (Reason: pain) Qty: 16 1RF oxycodone 5 mg tablet 5 mg PO TID PRN (Reason: pain) 30 Days Qty: 90 0RF Rx Instructions: Partial Fill upon patient request. Print Language: Chilean
--- NOTE | 2024-04-13 11:22 | ECG_ITS ---
Test Reason : CHEST PAIN Blood Pressure : / mmHG Vent. Rate : 097 BPM Atrial Rate : 097 BPM P-R Int : 124 ms QRS Dur : 094 ms QT Int : 338 ms P-R-T Axes : 041 -03 017 degrees QTc Int : 429 ms Normal sinus rhythm Minimal voltage criteria for LVH, may be normal variant ( R in aVL ) Borderline ECG When compared with ECG of 24-NOV-2023 16:01, No significant change was found Referred By: Arielle Valenzuela Electronically Signed By:ISIDORO MORALES
[2024-04-13] MEDS: Albuterol Sulfate 2.5 MG, Albuterol/Iprat 2.5/0.5MG 3 ML 3 ML INHALE (12:59)
[2024-04-13 13:14] LABS: Alanine Aminotransferase 23 U/L (0-31); Albumin Level 3.9 g/dL (3.5-5.0); Alkaline Phosphatase 96 U/L (39-117); Anion Gap 13 (12-20); Aspartate Amino Transferase 16 U/L (5-31); Bilirubin Direct 0.1 mg/dL (0.0-0.5); Bilirubin Total 0.3 mg/dL (0.0-1.0); Blood Urea Nitrogen 20 mg/dL (9-16); Calcium 9.9 mg/dL (8.4-10.2); Carbon Dioxide 23 mmol/L (22-29); Chloride 108 mmol/L (96-108); Creatinine Clr Calc Pharmacy 44.9; Estimated Glomerular Filt Rate 42; Glucose Random 84 mg/dL (60-115); Potassium 4.3 mmol/L (3.3-5.1); Sodium 140 mmol/L (135-145); Total Protein 6.7 g/dL (6.5-8.0)
[2024-04-13 13:19] LABS: B Type Natriuretic Peptide 26 pg/mL (<100)
[2024-04-13 13:22] LABS: Troponin-I High Sensitivity 3.7 ng/L (<3.5-17.0)
[2024-04-13 13:37] LABS: Influenza A PCR NEGATIVE (Negative); Influenza B PCR NEGATIVE (Negative); Resp Syncy Virus RNA Qual PCR NEGATIVE (Negative); SARS COV2 PCR INHOUSE NEGATIVE (Negative)
[2024-04-13] MEDS: guaiFEN/Codeine SF 200/20/10ML 10 ML LIQUID 5 ML PO (14:10)
[2024-04-13 14:52] LABS: MANUAL DIFF FLAG NO
[2024-04-13] MEDS: 0.9 % Sodium Chloride 1,000 ML 999 ML IV (14:55)
[2024-04-13] MEDS: Morphine Sulfate 2 MG/ML CARTRIDGE IVPUSH (14:56)
[2024-04-13 14:58] LABS: Basophils Percent Auto 0.2 % (0-2); Eosinophils Absolute Auto 0.1 X10*3/uL (0.0-0.4); Eosinophils Percent Auto 0.7 % (0-4); Hematocrit 29.5 % (37.0-47.0); Hemoglobin 8.9 g/dl (12.0-16.0); Imm Gran Abs Auto 0.15 X10*3/uL (0.00-0.03); Imm Gran Pct Auto 1.3 % (0.0-0.4); Lymphocytes Percent Auto 17.4 % (20-40); Mean Corpuscular HGB Conc 30.2 g/dl (31.0-35.0); Mean Corpuscular Hemoglobin 23.7 pg (27.0-33.0); Mean Corpuscular Volume 78.7 fL (80.0-98.0); Mean Platelet Volume 9.1 fL (9.4-12.3); Monocytes Absolute Auto 0.6 X10*3/uL (0.1-1.2); Monocytes Percent Auto 5.4 % (2-11); Neutrophils Absolute Auto 8.5 x10*3/uL (2.0-8.3); Platelet Count 270 X10*3/uL (160-400); Red Blood Count 3.75 X10*6/uL (4.20-5.50); Red Cell Distribution Width 21.3 % (11.0-16.0); White Blood Count 11.4 X10*3/uL (4.8-10.8)
[2024-04-13] MEDS: Metoclopramide HCl 10 MG/2 ML VIAL IVPUSH (15:02)
[2024-04-13] MEDS: diphenhydrAMINE HCL 50 MG/ML VIAL 25 MG IVPUSH (15:02)
--- NOTE | 2024-04-13 15:11 | PC.NURSE ---
patient awake and alert. skin pwd, resp even and non labored. speaking in full, clear sentences. dry, cough noted. patient c/o 07/11 migraine, chest pain w/ cough. medicated as ordered. ambulatory pulse ox completed, maintained sats. awaiting CT
[2024-04-13] MEDS: iohexoL 350 MG/ML 100 ML INFUS..BTL IV (15:38)
[2024-04-14 11:48] LABS: Adenovirus PCR Not Detected (Not Detect.); Bordetella parapertussis PCR Not Detected (Not Detect.); Bordetella pertussis PCR Not Detected (Not Detect.); Chlamydia pneumoniae PCR Not Detected (Not Detect.); Coronavirus 229E PCR Not Detected (Not Detect.); Coronavirus HKU1 PCR Not Detected (Not Detect.); Coronavirus NL63 PCR Not Detected (Not Detect.); Coronavirus OC43 PCR Not Detected (Not Detect.); Human metapneumovirus PCR Not Detected (Not Detect.); Influenza A PCR Not Detected (Not Detect.); Influenza B PCR Not Detected (Not Detect.); Mycoplasma pneumoniae PCR Not Detected (Not Detect.); Parainfluenza 1 PCR Not Detected (Not Detect.); Parainfluenza 2 PCR Not Detected (Not Detect.); Parainfluenza 3 PCR Not Detected (Not Detect.); Parainfluenza 4 PCR Not Detected (Not Detect.); RSV PCR Not Detected (Not Detect.); Rhino/Enterovirus PCR Not Detected (Not Detect.)
[2024-04-14 12:08] LABS: SARS-CoV-2 PCR Not Detected (Not Detect.)
== END 2024-04-13 18:30 | disposition home or self-care (01) ==
PROVIDERS: Physician Assistant Medical; Registered Nurse Emergency; Emergency Provider Emergency Medicine; PCP Internal Medicine
DX: J45.901 Unspecified asthma with (acute) exacerbation (principal); E11.9 Type 2 diabetes mellitus without complications; I10 Essential (primary) hypertension; I26.99 Other pulmonary embolism without acute cor pulmonale; Z86.16 Personal history of COVID-19; Z86.73 Personal history of transient ischemic attack (TIA), and cerebral infarction without residual deficits; Z79.01 Long term (current) use of anticoagulants
CPT/HCPCS: 0241U; 36415; 71046; 71275; 80048; 80076; 83880; 84484; 85025; 87633; 93005; 94640; 96361; 96374; 96375; 99284; J1200; J2270; J2765; Q9967

== ENCOUNTER → 2024-04-13 11:22 | Outpatient (BNV) | payer OTHER, SELFPAY | PROVIDERS: PCP Internal Medicine; Visit Provider Internal Medicine | DX: R07.9 Chest pain, unspecified (principal) | CPT/HCPCS: 93010 ==

== ENCOUNTER 2024-04-17 10:00 | Outpatient (RCR) | payer OTHER, SELFPAY ==
[2024-02-11] VITALS (8 sets, daily range): BP systolic 112–146; BP diastolic 60–77; PULSE 74–80; RESP 18; TEMP 37.2; O2SAT 96
--- NOTE | 2024-02-11 13:30 | HO.INF ---
3rd bottle of privigen 100ml hanging now of 4
--- NOTE | 2024-02-11 13:51 | HO.INF ---
4th and last bottle of privigen infusing
[2024-03-10] VITALS (8 sets, daily range): BP systolic 108–131; BP diastolic 59–71; PULSE 64–83; RESP 20; TEMP 36.6; O2SAT 98
[2024-03-10] MEDS: 0.9 % Sodium Chloride Flush 10 ML SYRINGE 5 ML IVFLUSH (10:10)
[2024-03-10] MEDS: Immun Glob G(IgG)/Gly/IGA Ov50 200 ML IV ×2 (10:14→11:57)
[2024-03-10] MEDS: diphenhydrAMINE HCL 25 MG CAPSULE PO (10:21)
[2024-03-10] MEDS: Acetaminophen 325 MG TABLET 650 MG PO (10:21)
[2024-04-17] VITALS (9 sets, daily range): BP systolic 113–154; BP diastolic 47–71; PULSE 80–94; RESP 16–20; TEMP 36.6; O2SAT 97
[2024-04-17] MEDS: diphenhydrAMINE HCL 25 MG CAPSULE PO (10:24)
[2024-04-17] MEDS: Acetaminophen 325 MG TABLET 650 MG PO (10:24)
[2024-04-17] MEDS: Immun Glob G(IgG)/Gly/IGA Ov50 200 ML IV ×2 (10:28→12:09)
== END 2024-05-16 02:52 | disposition home or self-care (01) ==
LOC: HO.INF 10:00
PROVIDERS: Visit Provider Hospitalist
DX: D80.1 Nonfamilial hypogammaglobulinemia (principal)
CPT/HCPCS: 96365; 96366; J1569

== ENCOUNTER 2024-04-18 10:35 | Outpatient (AMB) | payer OTHER, SELFPAY ==
[2024-04-18 10:42] VITALS: PULSE 84; O2SAT 96; BMI 36.4
--- NOTE | 2024-04-18 10:42 | A.OFFVIS_ITS ---
Vital Signs 04/18/24 10:42 Height 4 ft 11 in Weight 180 lb BMI 36.4 Pulse 84 Pulse Source Pulse Oximeter Pulse Oximetry (%) 96 Oxygen Delivery Method Room Air Intake Visit Reasons: Asthma Accounts Payable Coordinator Required: No Allergies No Known Allergies Allergy (Verified 04/18/24 10:43) HPI Comments Details: the patient is a 54 year-old woman with a known history of asthma in addition to recurrent pulmonary emboli and hypogammaglobulinemia. Recently the patient was complaining of persistent back pain and pleuritic chest pain. She started developing also worsening shortness of breath. She was evaluated at the emergency department where she had a CTA which will during for a pulmonary emboli. She was actually sent home from the ER and subsequently went back to the hospital the next day because of persistent symptoms. She has been kept on Eliquis. She still complaining of pleuritic discomfort. Explained to her that she will continue having discomfort while the clots will dissolve in sometimes it can take a few weeks. 12/07/2022 the patient is here for a hospital follow-up visit. She was in her usual state health until several days ago when she started developing worsening cough shortness of breath and chest discomfort. She went to the ER. There she was diagnosed with bronchitis. She was given some prednisone and also an antibiotic. She is feeling a little better although still having a significant cough. The cough is indeed croupy in nature. Likely tracheitis from an underlying virus. They did test for RSV flu a and COVID in does were negative. Although it is likely to be enterovirus. the patient is completing the prednisone taper and also completing the antibiotic. She has a significant cough and is affecting her sleep. Will go ahead and send her Tessalon Perles that appear to be effective for her. Also may benefit from dex to more phone. Will go ahead and send that to the pharmacy as well. Although she was given antibiotics. The fact that she has a croupy cough need to consider pertussis. Therefore I will send her azithromycin 500 mg for 5 days which will be a proper treatment for being cough. The patient has been vaccinated in the past but with her immunodeficiency and critical decrease it by her IgG is a chance that she may not mount a good response to vaccines. 04/02/2023 the patient is here for a pulmonary follow-up visit. Recently she went to the ER with worsening respiratory symptoms. She was diagnosed with an asthma exacerbation. Chest x-ray was clear. She was placed on prednisone taper. Clinically she is feeling a little better now. She is having some issues with her in a layers. She is not getting all the mouth the pharmacy. I am going to try to simplify her regimen by placing her on breaztri inhaler. She should also have a rescue inhaler available. In the meantime she continues with pain management. Now she has been getting some pain medication from her chronic back pain which appears to be alleviating her symptoms. In addition to that she is receiving IVIG infusions for significant hypogammaglobulinemia that was the result of her blood dyscrasia.. She continues uses CPAP at nighttime. The CPAP therapy continues to be affecting beneficial. She does use it for more than 4 hours a night. I will have her bring it in to the next visit to we can download the data. 11/22/2023 the patient is here for a pulmonary follow-up visit. She is still having hard time with the cough. The cough is persistent in uncomfortable for her. She has a hard time sleeping because of the cough. Typically the cough is nonproductive in nature. She has had multiple inhalers including breast tree that has been partially helpful. In addition to that she does have hypogammaglobulinemia and has been on IVIG infusions. She has missed once or twice. Her last IgG levels were actually low. Will go ahead and request additional blood work at this time. In addition to that she is found to be anemic. The patient did have a CT scan of the chest which we personally reviewed demonstrating no acute airspace disease. This was back in the summer of 2022. At this point based on the fact that she is still having a persistent cough not responding to the maximum respiratory therapy it will be beneficial to perform an airway survey with bronchoscopy and address the question of underlying tracheomalacia. The patient also sleeps CPAP. The CPAP therapy continues to be affecting beneficial. We need to download her machine. 12/24/2023 the patient is here for a pulmonary follow-up visit. The patient is status post bronchoscopy. During the bronchoscopy noted that she has significant tracheomalacia. Her collapsibility of the trachea approximately 85- 90%. Primarily in the mid and distal part. Some central bronchial involvement but mainly the trachea was involved. No significant secretions noted. Her cultures are negative. No endobronchial lesions. At least we understand the cause of her significant cough. Her cough is moderate severity. She still struggles with it. The patient also has issues with immunodeficiency. She has a low IgG level. She was placed on IVIG therapy. Although, he has not been getting it because she does not like the way she feels after the infusions. Usually 24-48 hours after she feels dizzy headaches and fatigue. Will go ahead and start pretreating her specially since her IgG level was starting to fall significantly. She understands that she does get lower respiratory infections is going to worsen her cough is well she will have a hard time expectorating. She is already on CPAP at night the CPAP therapy continues to be affecting beneficial. She does try to use it 4 hours a night. She also has an Acapella valve that she can use for CPT to make sure she clear secretions from her lungs. The we did talk about potential surgical interventions but she understands that they are very involved in require a prolonged period of healing and recovery. At this point with her low IgG levels I do not recommend she undergo any surgeries. For now will continue to monitoring try to control her coughing minimize infections. If the patient has any worsening symptoms she call the office otherwise follow-up in 4 months. 04/18/2024 the patient is here for a pulmonary follow-up visit. Recently she went to the ER with worsening respiratory symptoms. She was diagnosed with asthma exacerbation. There had an x-ray which I personally reviewed no significant disease. She also had a CTA which I also personally reviewed without any evidence of any significant airway disease which is reassuring. No evidence of any blood clots. She is feeling better although she still has significant coughing. We did talk about the issue with her trachea. She has significant tracheomalacia. She has not a surgical candidate. She has gained weight. Explained to her that the weight gain will resulting worsening malacia. She work on weight loss. In addition to that the patient has been getting IVIG. She did miss a few but she did get a dose recently which also will help with her underlying immunodeficiency. 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 Dizziness Headache Elevated lactic acid level Bronchitis Headache, migraine Asthma exacerbation Cough BABATUNDE (obstructive sleep apnea) Chronic pain syndrome Spondylosis of lumbar spine Low back pain Complex regional pain syndrome i of left lower limb Diabetic neuropathy Laryngotracheitis Essential hypertension Type 2 diabetes mellitus with unspecified complications Morbid obesity Anemia Back pain Pleuritic chest pain Fibromyalgia Hypothyroidism TIA (transient ischemic attack) Diet-controlled diabetes mellitus Depression Arthritis Sleep apnea Hypogammaglobulinemia Pulmonary embolism Surgical History History of esophagogastroduodenoscopy (EGD) Hx of colonoscopy S/P total abdominal hysterectomy History of cholecystectomy History of bariatric surgery Family History Mother Diabetes Stroke Family/Other Diabetes Father Diabetes Maternal Aunt Cancer Social History Household Members: None Housing: Apartment Are you a primary life care planner to a significant other at home: No Do you presently have visiting nurse or other home services: No ([employer]) Alcohol intake: never Patient Tobacco Use Status: Never used Tobacco e-Cigarette/Vaping Use: Never Used Second Hand Smoke Exposure: No Substance Use Type: Opiates Advance Directives Date on File: 05/23/21 service: No Current occupational status: unemployed and disabled Review of Systems Const Reports difficulty sleeping ENT Denies change in voice, Denies lip swelling, Denies mouth pain, Reports nasal congestion, Reports nasal discharge and Denies tongue swelling Card Denies chest pain, Denies palpitations and Reports dyspnea on exertion Resp Denies change in phlegm color, Denies chest congestion, Reports cough, Reports dyspnea on exertion and Denies wheezing GI Denies abdominal pain Denies urinary frequency and Denies urinary incontinence Musc Reports back pain and Reports myalgias Neuro Denies Neuro-related abnormal movements Psych Denies no additional complaints Endo Denies palpitations Mathieu/Lymph Denies easy bleeding and Denies lymphadenopathy Aller/Immun Denies lip swelling, Denies tongue swelling and Denies wheezing Physical Exam Vital Signs: Last Vital Signs Pulse 84 04/18/24 10:42 Pulse Ox 96 04/18/24 10:42 Oxygen Delivery Method Room Air 04/18/24 10:42 BMI result Body Mass Index 36.4 Const General: cooperative Orientation/consciousness: patient oriented x3 HEENT Head: Yes normocephalic Eyes General: appearance normal, both eyes and all related structures Neck Neck: Yes supple Chest Chest palpation & inspection: normal inspection of the chest and tenderness Resp Effort & Inspection: normal respiratory effort and Actively coughing (croup) Cardio Rate: regular rate Rhythm: regular rhythm Heart sounds: S1 normal heart sound present and S2 normal heart sound present GI Auscultation: normal bowel sounds Neuro General: patient oriented x3 Extrem General: Yes no clubbing, cyanosis or edema Assessment & Plan Assessment & Plan (1) Chronic bronchitis: Code(s): J42 - Unspecified chronic bronchitis Category: Medical Qualifiers: Chronic bronchitis type: simple Qualified Code(s): J41.0 - Simple chronic bronchitis (2) Asthma: Code(s): J45.909 - Unspecified asthma, uncomplicated Category: Medical Qualifiers: Asthma complication type: uncomplicated Asthma persistence: persistent Asthma severity: moderate Qualified Code(s): J45.40 - Moderate persistent asthma, uncomplicated (3) Chronic cough: Code(s): R05 - Cough Category: Medical (4) Tracheomalacia: Code(s): J39.8 - Other specified diseases of upper respiratory tract Category: Medical Plan cough suppresant Benzonates as needed for cough IVIG, will pretreat continue Breztri RENE as needed continue singulair CPT with acapella valve Consider surgical or IP eval once IgG levels are better F/U 4-6 months Medications: Changed From albuterol sulfate 90 mcg/actuation 2 inhalations inhalation Q4-6H PRN 1 ea 0RF shortness of breath or wheezing To albuterol sulfate 90 mcg/actuation 2 inhalations inhalation Q6H PRN 1 ea 11RF shortness of breath or wheezing Refilled codeine-guaifenesin 10-100 mg/5 mL 10 mL PO Q6H 10 days PRN 300 mL 0RF cough chlorpheniramine maleate 4 mg PO Q6H 30 days PRN 90 tabs 6RF itching [id number] 160-9-4.8 mcg/actuation (Breztri Aerosphere) 2 inhalations inhalation BID 30 days 10.7 grams 11RF benzonatate 200 mg PO BID 30 days PRN 30 caps 6RF cough Coding Level of Care Code Est Pt Level 4 (16730) Diagnoses Chronic bronchitis J41.0 Chronic bronchitis type: simple Moderate persistent asthma without complication J45.40 Asthma complication type: uncomplicated Asthma persistence: persistent Asthma severity: moderate Chronic cough R05 Tracheomalacia J39.8 Time Spent (min) 16
== END 2024-04-18 11:01 | disposition home or self-care (01) ==
PROVIDERS: PCP Internal Medicine; Visit Provider Hospitalist
DX: J41.0 Simple chronic bronchitis (principal); J45.40 Moderate persistent asthma, uncomplicated; J39.8 Other specified diseases of upper respiratory tract
CPT/HCPCS: 99214

== ENCOUNTER → 2024-04-18 10:35 | Outpatient (BNVA) | payer OTHER, SELFPAY | PROVIDERS: PCP Internal Medicine; Visit Provider Hospitalist | DX: J45.40 Moderate persistent asthma, uncomplicated (principal); J41.0 Simple chronic bronchitis; J39.8 Other specified diseases of upper respiratory tract | CPT/HCPCS: 99212 ==